=== PATIENT | female | born 1990 | race Caucasian/White ===

== ENCOUNTER 2022-09-17 10:26 | Outpatient (OUT) | payer OTHER, SELFPAY ==
--- NOTE | 2022-09-17 10:30 | US_ITS ---
[address] [address] Patient Name: ARBAHAN WOODS MRN: [id number] date: 1990 Sex: F Assigned Patient Location: Current Patient Location: US Accession/Order Number: [id number] Exam Date: 09/17/2022 10:30 Report Date: 09/17/2022 13:13 At the request of: LUKE VICENTE Procedure: US pelvis transvaginal EXAMINATION: US pelvis transvaginal HISTORY: Right ovarian cyst N83.201 follow-up, chronic pelvic pain COMPARISON: Ultrasound pelvis 08/05/2022 TECHNIQUE: Transabdominal and/or transvaginal sonographic examination was performed as indicated by examination type. FINDINGS: UTERUS: Complex 8 mm nabothian cysts within cervix. Normal appearance of uterine body and fundus. Uterus size: 7.4 x 4.5 x 3.8 cm ENDOMETRIUM: Normal homogeneous appearance. Endometrial thickness: 5 mm RIGHT OVARY: Contains a 1.9 x 1.6 x 1.2 cm partially exophytic complex cyst. Duplex Doppler demonstrates normal waveform and flow; resistive index 0.4. Ovary size: 2.8 x 1.7 x 1.3 cm LEFT OVARY: Normal size and appearance. Duplex Doppler demonstrates normal waveform and flow; resistive index 0.5. Ovary size: 2.1 x 2.4 x 2.0 cm CUL-DE-SAC: Unremarkable. No significant free fluid. BLADDER: Unremarkable. OTHER: None. IMPRESSION: 1. Stable to slight increase in size of the complex right ovarian cyst. Consider follow-up evaluation in another 6 weeks to document regression. Electronically authenticated by: KIRK SHANNON Date: 09/17/2022 13:13
== END 2022-09-17 10:27 ==
LOC: US 10:26
PROVIDERS: PCP Obstetrics & Gynecology; Visit Provider Obstetrics & Gynecology
DX: N83.201 Unspecified ovarian cyst, right side (principal)
CPT/HCPCS: 76830

== ENCOUNTER 2022-09-28 16:30 | Outpatient (REF) | payer OTHER, SELFPAY | END 2022-09-28 16:31 | disposition home or self-care (01) | LOC: LAB 16:30 | PROVIDERS: PCP Obstetrics & Gynecology; Visit Provider Obstetrics & Gynecology | DX: N92.0 Excessive and frequent menstruation with regular cycle (principal) | CPT/HCPCS: 88305 ==

== ENCOUNTER 2022-10-15 08:54 | Outpatient (OUT) | payer OTHER, SELFPAY ==
--- NOTE | 2022-10-15 09:13 | ECG_ITS ---
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
--- NOTE | 2022-10-15 09:40 | XR_ITS ---
[address] [address] Patient Name: ABRAHAN WOODS MRN: [id number] date: 1990 Sex: F Assigned Patient Location: [facility] Current Patient Location: [facility] Accession/Order Number: [id number] Exam Date: 10/15/2022 09:55 Report Date: 10/15/2022 10:26 At the request of: LUKE VICENTE Procedure: XR chest 2V EXAMINATION: XR chest 2V HISTORY: E CIG USE COMPARISON: No relevant comparison available. FINDINGS: LUNGS: No significant pulmonary parenchymal abnormalities. VASCULATURE: No increased pulmonary vasculature. PLEURA: No pneumothorax, effusion, or pleural thickening. CARDIAC: No cardiomegaly or cardiac silhouette abnormality. MEDIASTINUM: No visible mass or adenopathy. BONES: No fracture or visible bone lesion. OTHER: Negative. IMPRESSION: 1. Normal examination. Electronically authenticated by: KIRK SHANNON Date: 10/15/2022 10:26
--- NOTE | 2022-10-15 09:50 | PM.PRESUREVA ---
History of Present Illness History of Present Illness Chief complaint: menorrhagia, pelvic pain Narrative: Patient presents for preadmission testing. The patient reports a long history of heavy painful periods and pelvic pain. She states she had a biopsy done in the office a few weeks ago and since that time has had an increase in her lower pelvic pain. She denies nausea, vomiting, fever, or any other complaints. Review of Systems ROS Narrative REVIEW OF SYSTEMS: Negative except as stated in HPI, ten or more systems reviewed. Constitutional: No fever , chills, weakness ENT: No sore throat or epistaxis Cardiovascular: No edema, chest pain, palpitations, or activity intolerance Respiratory: No shortness of breath, cough, or wheezing Musculoskeletal: No joint pain or swelling Genitourinary: No dysuria or hematuria Neurological: No numbness, tingling, weakness, or headache Psychiatric: No mood changes [facility] Medical History (Updated 10/15/22 @ 09:30 by Traci Cadet NP) Surgical History (Updated 10/15/22 @ 09:30 by Traci Cadet NP) (04/07/22) Family History (Updated 10/15/22 @ 09:30 by Traci Cadet NP) Other Family history of COPD (chronic obstructive pulmonary disease) Family history of breast cancer Family history of cervical cancer Family history of coronary artery disease Family history of diabetes mellitus Family history of emphysema Family history of heart disease Family history of lung cancer Family history of myocardial infarction Family history of prostate cancer Family history of renal failure Family history of stroke Social History (Updated 10/15/22 @ 09:22 by Traci Cadet NP) Within the past year, how often did you have a drink containing alcohol: monthly or less Smoking status: Current every day smoker What tobacco products do you use: cigarettes Pack-years instructions: Please document either packs per day or cigarettes per day in order for pack years to calculate correctly. If using both packs per day and cigarettes per day, please make sure that they denote the same thing. If they differ, pack-years will calculate based on packs per day. Packs Per Day Cigarettes Per Day 1/4 of a pack 5 1/2 a pack 10 3/4 of a pack 15 1 pack 20 1.5 pack 30 2 packs 40 2.5 packs 50 3 packs 60 Packs per day: 3 Years smoked: 7 Smoking pack-years: 21.00 Non-prescribed substance use: denies use Highest level of school completed/degree received: high school graduate Meds Home Medications and Allergies Home Medications Medication Instructions Recorded Confirmed Type albuterol sulfate 90 mcg/actuation 2 inh inhalation Q6H 10/15/22 10/15/22 History aerosol inhaler amitriptyline 50 mg tablet 50 mg PO QDAY 10/15/22 10/15/22 History buspirone 15 mg tablet 15 mg PO QDAY 10/15/22 10/15/22 History gyqxmtwzke-lvdpklnvlrqsq-exlolmhq 1 tab PO Q6H PRN pain 10/15/22 10/15/22 History 50 mg-325 mg-40 mg tablet cariprazine 3 mg capsule (Vraylar) 6 mg PO Q24H 10/15/22 10/15/22 History cholecalciferol (vitamin D3) 25 1,000 unit PO QDAY 10/15/22 10/15/22 History mcg (1,000 unit) tablet dicyclomine 10 mg capsule 10 mg PO BID 10/15/22 10/15/22 History fluticasone propionate 50 2 spray intranasal Q12H 10/15/22 10/15/22 History mcg/actuation nasal spray,suspension lactobacillus combination no.4 3 3,000 mmu cells PO DAILY 10/15/22 10/15/22 History billion cell capsule (Probiotic) loratadine 10 mg tablet 10 mg PO Q24H 10/15/22 10/15/22 History omeprazole 40 mg capsule,delayed 40 mg PO BID 10/15/22 10/15/22 History release oxcarbazepine 300 mg tablet 300 mg PO BID 10/15/22 10/15/22 History prazosin 1 mg capsule 1 mg PO Q12H 10/15/22 10/15/22 History Allergies Allergy/AdvReac Type Severity Reaction Status Date / Time adhesive tape Allergy Rash Verified 10/15/22 09:08 bales Allergy throat Verified 10/15/22 09:13 swelling latex Allergy Rash Verified 10/15/22 09:07 Exam Narrative Exam Narrative: Constitutional: Awake, alert, comfortable, well-appearing, poorly-groomed, nontoxic, interactive, vital signs as charted Head: Normocephalic, atraumatic Neck: Supple, normal appearance, normal range of motion, no meningeal signs, no lymphadenopathy Respiratory: No respiratory distress, breath sounds clear Cardiovascular: Regular rate and rhythm, strong and regular heart tones Abdomen: Nontender, normal bowel sounds, soft, no CVA tenderness Musculoskeletal: Normal gait, no swelling or edema Skin: No rashes or induration, no lesions, only visible skin inspected Neuro: No neurological deficits, normal sensation Psychiatric: Oriented ?3, normal affect Assessment and Plan Assessment and Plan (1) Dysmenorrhea: (2) Dyspareunia: (3) Menorrhagia: (4) Pelvic pain: Plan VNOTES Hysterectomy, possible bilateral salpingo-oophorectomy, possible cystoscopy, possible exploratory laparotomy scheduled with Dr. Gallego 10/29/2022.
[2022-10-15 10:11] LABS: Basophils Absolute Auto 0.1 10^3/uL (0.0-0.1); Basophils Percent Auto 0.9 % (0.2-2.0); Eosinophils Absolute Auto 0.2 10^3/uL (0.0-0.7); Eosinophils Percent Auto 3.6 % (0.9-7.0); Hematocrit 44.4 % (36.0-48.0); Hemoglobin 14.3 g/dL (12.0-16.0); Immature Granulocytes Abs Auto 0.02 10^3/uL (0.00-0.03); Immature Granulocytes Pct Auto 0.3 % (0.0-0.5); Lymphocytes Absolute Auto 1.6 10^3/uL (1.2-3.8); Lymphocytes Percent Auto 24.4 % (20.5-60.0); Mean Corpuscular HGB Conc 32.2 g/dL (29.9-35.2); Mean Corpuscular Hemoglobin 29.5 pg (26.7-34.0); Mean Corpuscular Volume 91.7 fL (81.0-99.0); Mean Platelet Volume 9.6 fL (9.5-13.5); Monocytes Absolute Auto 0.5 10^3/uL (0.3-0.8); Monocytes Percent Auto 8.2 % (1.7-12.0); Neutrophils Percent Auto 62.6 % (43.0-75.0); Platelet Count 282 10^3/uL (150-450); Red Blood Count 4.84 10^6/uL (4.20-5.40); Red Cell Distribution Width 14.3 % (11.0-15.0); White Blood Count 6.4 10^3/uL (4.0-11.0)
[2022-10-15 10:27] LABS: Alanine Aminotransferase 24 U/L (14-59); Albumin Globulin Ratio 1.1; Albumin Level 3.9 g/dL (3.4-5.0); Alkaline Phosphatase 66 U/L (46-116); Anion Gap 10.5; Aspartate Amino Transferase 7 U/L (15-37); BUN Creatinine Ratio 9.1; Bilirubin Direct 0.1 mg/dL (0.0-0.2); Bilirubin Total 0.3 mg/dL (0.2-1.0); Calcium 8.9 mg/dL (8.5-10.1); Carbon Dioxide 29.6 mmol/L (21.0-32.0); Chloride 104 mmol/L (98-107); Estimated GFR (African America >60 (>=60); Estimated GFR (Non-African Ame >60 (>=60); Globulin 3.4 g/dL; Glucose 101 mg/dL (74-106); Potassium 4.1 mmol/L (3.5-5.1); Sodium 140 mmol/L (136-145); Total Protein 7.3 g/dL (6.4-8.2)
[2022-10-15 10:38] LABS: INR 0.97; Partial Thromboplastin Time 27.9 sec (22.3-36.2); Prothrombin Time 10.3 sec (9.0-11.6)
== END 2022-10-15 08:55 | disposition home or self-care (01) ==
LOC: PST 08:55
PROVIDERS: PCP Obstetrics & Gynecology; Visit Provider Obstetrics & Gynecology
DX: Z01.810 Encounter for preprocedural cardiovascular examination (principal); Z01.812 Encounter for preprocedural laboratory examination; Z01.818 Encounter for other preprocedural examination; N92.1 Excessive and frequent menstruation with irregular cycle; N94.6 Dysmenorrhea, unspecified; N94.10 Unspecified dyspareunia; R10.2 Pelvic and perineal pain; I45.19 Other right bundle-branch block
CPT/HCPCS: 36415; 71046; 80048; 80076; 85025; 85610; 85730; 86850; 86900; 86901; 93005; G0463

== ENCOUNTER 2022-10-29 10:43 | Day surgery (SDC) | payer OTHER, SELFPAY ==
[2022-10-15 09:23] VITALS: BP 113/76; PULSE 72; RESP 18; TEMP 36.6; O2SAT 98; BMI 32.4
[2022-10-29] VITALS (18 sets, daily range): BP systolic 122–147; BP diastolic 59–106; PULSE 50–93; RESP 16–24; TEMP 36.3–36.6; O2SAT 94–100; BMI 32.2
[2022-10-29 10:58] LABS: Basophils Absolute Auto 0.1 10^3/uL (0.0-0.1); Basophils Percent Auto 0.8 % (0.2-2.0); Eosinophils Absolute Auto 0.3 10^3/uL (0.0-0.7); Eosinophils Percent Auto 2.6 % (0.9-7.0); Hematocrit 49.5 % (36.0-48.0); Hemoglobin 16.3 g/dL (12.0-16.0); Immature Granulocytes Abs Auto 0.02 10^3/uL (0.00-0.03); Immature Granulocytes Pct Auto 0.2 % (0.0-0.5); Lymphocytes Absolute Auto 2.3 10^3/uL (1.2-3.8); Lymphocytes Percent Auto 22.2 % (20.5-60.0); Mean Corpuscular HGB Conc 32.9 g/dL (29.9-35.2); Mean Corpuscular Hemoglobin 30.1 pg (26.7-34.0); Mean Corpuscular Volume 91.3 fL (81.0-99.0); Mean Platelet Volume 9.7 fL (9.5-13.5); Monocytes Absolute Auto 0.7 10^3/uL (0.3-0.8); Monocytes Percent Auto 7.3 % (1.7-12.0); Neutrophils Absolute Auto 6.8 10^3/uL (1.4-6.5); Neutrophils Percent Auto 66.9 % (43.0-75.0); Platelet Count 281 10^3/uL (150-450); Red Blood Count 5.42 10^6/uL (4.20-5.40); Red Cell Distribution Width 14.2 % (11.0-15.0); White Blood Count 10.2 10^3/uL (4.0-11.0)
[2022-10-29 11:22] LABS: HCG Quantitative <1 mIU/mL
[2022-10-29] MEDS: LACTATED RINGER'S SOLUTION 1,000 ML 50 ML IV ×2 (11:26→13:43)
[2022-10-29] MEDS: SCOPOLAMINE 1 EACH PATCH.TD.3 1 PATCH TD (11:35)
[2022-10-29] MEDS: CEFAZOLIN SODIUM/DEXTROSE,ISO 2 GM/50 ML PIGGYBACK IV (12:59)
[2022-10-29] MEDS: 0.9 % SODIUM CHLORIDE 10 ML 30 ML INJ (13:35)
[2022-10-29] MEDS: LIDOCAINE HCL 1%-EPINEPHRINE 1:100,000 20 ML MDV INJ (13:35)
--- NOTE | 2022-10-29 15:09 | P.ON_ITS ---
Brief Operative Note Date of procedure: 10/29/22 Pre-op diagnosis: pelvic pain, menorrhagia, dysmenorrhea, dyspareunia Post-op diagnosis: same Procedure: PROCEDURE:? vNOTES hysterectomy bilateral salpingectomy with cystoscopy. PROCEDURE:? Patient was brought back to the operating room where she was given general anesthesia.? She was placed in the dorsolithotomy position, after being prepped and draped in a sterile fashion.? A Yeh catheter was placed.? A weighted speculum was placed posterior in the vagina.? The cervix was grasped anteriorly and posteriorly with two single tooth tenaculums and placed on traction.? A solution of Marcaine, lidocaine and epinephrine and saline was liberally infiltrated into the cervical vaginal junction.? The knife was then used to circumscribe the cervical vaginal junction and the posterior cul-de-sac was sharply entered without difficulty.? A long weighted duck tail speculum was placed and the peritoneum was tacked to the vaginal epithelium.? We then turned our attention to the uterosacral ligaments which were bilaterally cross clamped, transected and suture ligated and then were held with hemostats.? Attention was then turned to the anterior compartment, where the cervical vaginal junction was similarly divided, and the bladder was then sharply and bluntly dissected off the cervix and the lower uterine segment, and the anterior cul-de-sac was sharply entered.? The vaginal epithelium was tacked to the peritoneum.? Lateral attachments of the uterus were secured with Dawit clamps and suture ligated.? The retractors were then removed and were placed by the path inner ring anteriorly followed by posteriorly.? Once the ring was seated, the gel cap was placed and the laparoscopic ports were placed through this cap and the gas was allowed to insufflate the pelvis.? A GynLap was placed posteriorly to facilitate mobilization of the bowel, control bleeding.? This was later retrieved.? The LigaSure device was used to secure the lateral attachments of the uterus on the left side, including the cardinal ligaments and the uterine vasculature.? Once the utero-ovarian ligament was reached, we turned our attention to the right side where the LigaSure device was used to fully detach the uterus from the pelvic side wall.? Please note the ligasure was used to perform bilateral salpingectomy, excellent hemostasis was noted. The ureters were seen visually; before, during and after the pedicles were created.? The ureters were bilaterally in normal locations, peristalsing.? Please note that the right and left ovary were already removed and were not visualized.?? Please note that the LigaSure was used on the patient?s left side to fully detach the uterus from the pelvic side wall.? The uterus was removed from the field.? The GynLap was also removed from the field.? The inner ring and gel port caps were removed and the vaginal retractors were replaced.? Lateral figure of eight sutures were placed bilaterally, where bleeding occurred, behind the ring, and no further sutures were needed.? The colpopexy was then carried out, passing a stitch posteriorly to the vaginal wall, capturing the left uterosacral ligament, going across the peritoneum posteriorly to the right and exiting out the vaginal wall posteriorly.? The vaginal cuff was closed in a single running locked stitch using 0 Monocryl, and the uterosacral ligaments were cut.? Once the vaginal cuff was fully closed, the uterosacral colpopexy stitch was then tied down tightly, elevating the vaginal cuff to the uterosacral ligaments in a satisfactory manner.? The Yeh catheter was removed and the patient was awakened and taken to recovery in excellent condition.? Sponge, lap and instruments counts correct x2.? Anesthesia: SAY Surgeon: Valentin Gallego Financial Planning Adviser: Edwige Renee Estimated blood loss (mL): 300 Pathology: other (uterus, cervix and tubes) Condition: stable Disposition: PACU
[2022-10-29] MEDS: HYDROMORPHONE HCL 0.5 MG/0.5 ML SYRINGE IV (15:14)
--- NOTE | 2022-10-29 15:19 | PC.NURSE ---
PATIENT HAS ARMEN PAD WITH CSANT AMOUNT OF DRAINAGE UPON ARRIVAL TO PACU.
--- NOTE | 2022-10-29 15:21 | PC.NURSE ---
IV PAIN MEDICATION GIVEN AT THIS TIME 0.50 ML OF DILAUDID
--- NOTE | 2022-10-29 15:24 | PC.NURSE ---
PER JULES SUGGESTION , GAVE ORAL PERCOCET FOR PAIN AAT THIS TIME.
[2022-10-29] MEDS: LACTATED RINGER'S SOLUTION 1,000 ML 125 ML IV (15:26)
[2022-10-29] MEDS: SIMETHICONE 80 MG TAB.CHEW PO (17:34)
[2022-10-29] MEDS: KETOROLAC TROMETHAMINE 30 MG/ML VIAL IVP (19:31)
[2022-10-29] MEDS: DOCUSATE SODIUM 100 MG CAPSULE PO (19:34)
--- NOTE | 2022-10-29 19:38 | PC.NURSE ---
Sent page to Dr. Gallego at [phone]. He called at [phone]. I informed him that the patient was still having 8/[address] Gallego gave orders to keep the patient until 0800 on 10/30/2022. I went to tell the patient and she was very upset. She did not want to stay and wants to go home tonight. Dr. Gallego was informed and he came up to drop prescriptions off for the patient.
--- NOTE | 2022-10-29 22:15 | PC.NURSE ---
AMA Lab was in at approximately 2105. Made two attempts to draw blood per physician order. Patient began screaming and yelling out. Talent Manager entered room to hear patient yelling I'm not a F.....G pin cushion. I'm done I want to go home to my nurse.MOM! I explained to patient that Melody was trying to help her and she was also being nice to her. Patient started yelling out, I'm done I want to leave, they've stuck me 4 times today, mom said stick me twice and that's it! Talent Manager went to obtain a vein light to explain maybe that would help. Patient continued to refuse. When Nurse Brittany came into witness her signing the AMA. She also discussed with her the importance of the labwork and that if she left against medical advice her insurance could refuse to pay. Patient stated, The doctor told me I wasn't going to be here this long anyways. We explained that it was due to her increased pain 10/10 that we wanted to monitor her and that was also a reason she needed to stay and let us attempt the bloodwork again. Doctor Lashonda notified of AMA status. Patient left with at approximately 2134. Bhavna Vásquez RN
== END 2022-10-29 21:35 | disposition left against medical advice (07) ==
LOC: SURGOUT 15:06 → MS 15:48
PROVIDERS: PCP Obstetrics & Gynecology; Visit Provider Obstetrics & Gynecology
PROC: (CPT 944; principal; 2022-10-29 13:20)
DX: N92.1 Excessive and frequent menstruation with irregular cycle (principal); N94.6 Dysmenorrhea, unspecified; N94.10 Unspecified dyspareunia; R10.2 Pelvic and perineal pain; Z53.29 Procedure and treatment not carried out because of patient's decision for other reasons; Z90.722 Acquired absence of ovaries, bilateral
CPT/HCPCS: 58552; 36415; 84702; 85025; 88307; 94761; J1170; J2704

== ENCOUNTER 2022-11-20 13:02 | Emergency (ER) | payer OTHER, SELFPAY ==
[2022-11-20 13:13] VITALS: BP 127/81; PULSE 85; RESP 18; TEMP 37.1; O2SAT 100; BMI 28.7
--- NOTE | 2022-11-20 13:23 | CT_ITS ---
The [address] [address] Patient Name: ABRAHAN WOODS MRN: [id number] date: 1990 Sex: F Assigned Patient Location: ER Current Patient Location: ER Accession/Order Number: [id number] Exam Date: 11/20/2022 14:18 Report Date: 11/20/2022 14:44 At the request of: DENISE SHAFFER Procedure: CT abdomen pelvis wo con EXAM: CT abdomen pelvis wo con HISTORY: Without COMPARISON: 07/03/2022 TECHNIQUE: Axial CT images were obtained of the abdomen and pelvis without intravenous contrast. Multiplanar reconstructions were performed. ABDOMEN/PELVIS FINDINGS: Lower Chest: Unremarkable. Liver: Normal nonenhanced appearance and contour. Biliary/Gallbladder: Prior cholecystectomy. Pancreas: Unremarkable. Spleen: Unremarkable. Adrenal Glands: Unremarkable. Kidneys: Unremarkable. Gastrointestinal/Peritoneum: No acute abnormality. The appendix is unremarkable. No free air or free fluid. Vascular: Unremarkable. Lymph Nodes: No enlarged lymph nodes by CT size criteria. Pelvic Organs: Prior hysterectomy. There is mild hazy fat stranding present in the post hysterectomy bed. No fluid collection. Bladder: Unremarkable. Bones: No acute osseous abnormality. Soft tissues: Small fat-containing umbilical hernia present. CT/CT abdomen pelvis wo con IMPRESSION: 1. Mild hazy fat stranding present in the post hysterectomy bed, likely due to edema from recent postoperative changes. An infectious etiology should also be considered. There is no fluid collection. 2. Prior cholecystectomy. 3. Small fat-containing umbilical hernia. Electronically authenticated by: CHRISTINE QUIROZ Date: 11/20/2022 14:44
--- NOTE | 2022-11-20 13:25 | ED.GENADUL1 ---
Documented by User: GUILLAUME Mcgee 11/20/22 15:41 HPI - General Adult General Chief complaint: Abdominal Pain Stated complaint: ABDOMINAL PAIN Time Seen by Provider: 11/20/22 13:08 Source: patient Mode of arrival: walk-in Limitations: no limitations History of Present Illness HPI narrative: patient is a 32-year-old female presents to the Emergency Room with concerns of worsening lower abdominal pain. Prior history of cholecystectomy last March. Patient states she had a recent vaginal hysterectomy performed on 10/29/22 w/ Dr. Gallego. Patient states she felt inflamed on there. With some drainage and was recently treated with yeast medication but states her pelvic pain has worsened. She has had diarrhea for the past two days and her last normal bowel movement was two days ago. Patient feels bloated full sensation with right lower quadrant abdominal pain. occ sharp. Mild nausea but no vomiting. Significant other present at bedside. Patient reports three prior pregnancies.patient reports discharge from vagina is currently a sandwich brown material, but not enough to wear pads with regularity. Related Data Home Medications Medication Instructions Recorded Confirmed albuterol sulfate 90 mcg/actuation 2 inh inhalation Q6H 10/15/22 10/29/22 aerosol inhaler amitriptyline 50 mg tablet 50 mg PO QDAY 10/15/22 10/29/22 buspirone 15 mg tablet 15 mg PO QDAY 10/15/22 10/29/22 oczggafwjn-ljmttslogaybw-lhpbmzez 1 tab PO Q6H PRN pain 10/15/22 10/29/22 50 mg-325 mg-40 mg tablet cariprazine 3 mg capsule (Vraylar) 6 mg PO Q24H 10/15/22 10/29/22 cholecalciferol (vitamin D3) 25 1,000 unit PO QDAY 10/15/22 10/29/22 mcg (1,000 unit) tablet dicyclomine 10 mg capsule 10 mg PO BID 10/15/22 10/29/22 fluticasone propionate 50 2 spray intranasal Q12H 10/15/22 10/29/22 mcg/actuation nasal spray,suspension lactobacillus combination no.4 3 3,000 mmu cells PO DAILY 10/15/22 10/15/22 billion cell capsule (Probiotic) loratadine 10 mg tablet 10 mg PO Q24H 10/15/22 10/29/22 omeprazole 40 mg capsule,delayed 40 mg PO BID 10/15/22 10/29/22 release oxcarbazepine 300 mg tablet 300 mg PO BID 10/15/22 10/29/22 prazosin 1 mg capsule 1 mg PO Q12H 10/15/22 10/15/22 Previous Rx's Medication Instructions Recorded ibuprofen 800 mg tablet 800 mg PO Q8H PRN pain 14 days #40 10/29/22 tabs oxycodone-acetaminophen 5 mg-325 1 tab PO Q6H PRN pain 7 days #28 10/29/22 mg tablet (Percocet) tabs Allergies Allergy/AdvReac Type Severity Reaction Status Date / Time adhesive tape Allergy Rash Verified 11/20/22 13:18 bales Allergy throat Verified 11/20/22 13:18 swelling latex Allergy Rash Verified 11/20/22 13:18 Review of Systems ROS Constitutional Denies: fever, chills or change in weight Eyes Denies: change in vision or blurry vision Ears, nose, mouth, and throat Denies: throat pain or neck pain Cardiovascular Denies: chest pain or palpitations Respiratory Denies: shortness of breath Gastrointestinal Reports: abdominal pain, nausea and diarrhea; Denies: vomiting Genitourinary Reports: pelvic pain; Denies: painful urination Musculoskeletal Denies: back pain or neck pain Integumentary/Breast Denies: rash Neurological Denies: headache or numbness in extremities Psychiatric Denies: anxiety Endocrine Denies: excessive urination Hematologic/Lymphatic Denies: easy bruising PFSH PFSH Medical History (Updated 11/20/22 @ 15:40 by GUILLAUME Mcgee) Surgical History (Updated 10/15/22 @ 09:30 by Traci Cadet NP) (04/07/22) Family History (Updated 10/15/22 @ 09:30 by Traci Cadet NP) Other Family history of COPD (chronic obstructive pulmonary disease) Family history of breast cancer Family history of cervical cancer Family history of coronary artery disease Family history of diabetes mellitus Family history of emphysema Family history of heart disease Family history of lung cancer Family history of myocardial infarction Family history of prostate cancer Family history of renal failure Family history of stroke Social History (Updated 10/15/22 @ 09:22 by Traci Cadet NP) Within the past year, how often did you have a drink containing alcohol: monthly or less Smoking status: Current every day smoker What tobacco products do you use: cigarettes Pack-years instructions: Please document either packs per day or cigarettes per day in order for pack years to calculate correctly. If using both packs per day and cigarettes per day, please make sure that they denote the same thing. If they differ, pack-years will calculate based on packs per day. Packs Per Day Cigarettes Per Day 1/4 of a pack 5 1/2 a pack 10 3/4 of a pack 15 1 pack 20 1.5 pack 30 2 packs 40 2.5 packs 50 3 packs 60 Packs per day: 3 Years smoked: 7 Smoking pack-years: 21.00 Non-prescribed substance use: denies use Highest level of school completed/degree received: high school graduate Exam Narrative Exam Narrative: Nurses notes and vital signs reviewed and patient is not hypoxic. General: The patient appears uncomfortable holding her lower abdomen. Able to speak in full sentences Skin: Warm, dry, no pallor noted. Head: Normocephalic, atraumatic Neck: Supple, trachea mid-line, no tenderness, no lymphadenopathy Eye: Pupils are equal, round and reactive to light, EOMI Ears, Nose, Mouth, and Throat: external exam unremarkable Cardiovascular: Regular Rate and Rhythm Respiratory: Patient is in no distress, no accessory muscle use, lungs are clear to auscultation, no wheezing, rales or rhonchi. Chest Wall: no tenderness Back: non-tender, no CVA tenderness Musculoskeletal: normal ROM, no tenderness, no swelling GI: Normal bowel sounds, tenderness and guarding to the right lower quadrant, point tender McBurney's point. Mild suprapubic soreness with deep palpation. Neurological: A&O x4 Psychiatric: Cooperative Constitutional Vital Signs, click to edit/add: Last Vital Signs Temp 98.7 F 11/20/22 13:13 Pulse 85 11/20/22 13:13 Resp 18 11/20/22 13:13 BP 127/81 11/20/22 13:13 Pulse Ox 100 11/20/22 13:13 O2 Del Method Room Air 11/20/22 13:13 Course Vital Signs Vital signs: Vital Signs Temperature 98.7 F 11/20/22 13:13 Pulse Rate 85 11/20/22 13:13 Respiratory Rate 18 11/20/22 13:13 Blood Pressure 127/81 11/20/22 13:13 Pulse Oximetry 100 11/20/22 13:13 Oxygen Delivery Method Room Air 11/20/22 13:13 Temperature 98.7 F 11/20/22 13:13 Pulse Rate 85 11/20/22 13:13 Respiratory Rate 18 11/20/22 13:13 Blood Pressure 127/81 11/20/22 13:13 Pulse Oximetry 100 11/20/22 13:13 Oxygen Delivery Method Room Air 11/20/22 13:13 Medical Decision Making MDM Narrative Medical decision making narrative: discussed patient's presentation, postoperative pain lower pelvic and right lower quadrant of abdomen, patient still has her appendix recommend CT of the abdomen and pelvis with IV contrast for further evaluation. We discussed her recent hysterectomy and drainage with recent treatment for yeast infection. Patient denies any current external rash and describes a Sandish colored drainage.vital signs are stable, patient agreeable to IV pain medication pending CT evaluation initial labs appear unremarkable, patient had a member of technical staff at bedside waiting for scan, noted to have increased pain, patient tearful and crying, additional 4 mg IV morphine ordered. Patient stated she has had shortness of breath before with contrast studies, we reviewed history in the x-ray report showing no evidence of adverse reaction to the prior scans per x-ray tech documentation., patient reports having chest pain after the injection of contrast and subsequently will not receive IV contrast today despite two past studies. reviewed CT study, discussed patient's case and presentation with Dr. Bowling who is covering for Dr. Gallego. I attempted to call Dr. Gallego but he was reported to be out of town. Dr. Bowling was on-call and made aware of patient's surgery, presentation, labs and CT finding. She recommends the patient continue with rest and mild pain medication pending follow-up with Dr. Gallgeo for recheck. I communicated this to the patient at bedside and she felt relieved, she admits that the pain is somewhat colicky and is currently taking Motrin eight hundred. We discussed additional pain medications and requests a hold on adding anything new to the treatment as she has Zofran and Motrin 800s at home. Patient verbalized that she will return to the Emergency Room if her symptoms worsen or new symptoms develop through the weekend. The patient is to followup with Dr. Gallego's clinic on Wednesday or to return to the emergency department should any of the signs or symptoms worsen or new symptoms develop. Patient had questions answered. The patient agrees with the following Diagnosis and Treatment plan and the patient will be discharged home. Lab Data Labs: Lab Results 11/20/22 Range/Units 13:24 WBC 8.5 (4.0-11.0) 10^3/uL RBC 4.42 (4.20-5.40) 10^6/uL Hgb 13.3 (12.0-16.0) g/dL Hct 40.9 (36.0-48.0) % MCV 92.5 (81.0-99.0) fL MCH 30.1 (26.7-34.0) pg MCHC 32.5 (29.9-35.2) g/dL RDW 14.2 (11.0-15.0) % Plt Count 350 (150-450) 10^3/uL MPV 9.6 (9.5-13.5) fL Neut % (Auto) 63.7 (43.0-75.0) % Lymph % (Auto) 24.6 (20.5-60.0) % [place] % (Auto) 7.8 (1.7-12.0) % Eos % (Auto) 3.0 (0.9-7.0) % Baso % (Auto) 0.8 (0.2-2.0) % Neut # (Auto) 5.4 (1.4-6.5) 10^3/uL Lymph # (Auto) 2.1 (1.2-3.8) 10^3/uL [place] # (Auto) 0.7 (0.3-0.8) 10^3/uL Eos # (Auto) 0.3 (0.0-0.7) 10^3/uL Baso # (Auto) 0.1 (0.0-0.1) 10^3/uL Abs Immat Gran (auto) 0.01 (0.00-0.03) 10^3/uL Imm/Tot Granulo (auto) 0.1 (0.0-0.5) % Sodium 137 (136-145) mmol/L Potassium 3.6 (3.5-5.1) mmol/L Chloride 102 (98-107) mmol/L Carbon Dioxide 25.7 (21.0-32.0) mmol/L Anion Gap 12.9 BUN 6.0 L (7.0-18.0) mg/dL Creatinine 0.71 (0.55-1.02) mg/dL Est GFR ( Amer) >60 (>=60) Est GFR (Non-Af Amer) >60 (>=60) BUN/Creatinine Ratio 8.5 Glucose 109 H (74-106) mg/dL Lactate 1.4 (0.4-2.0) mmol/L Calcium 8.4 L (8.5-10.1) mg/dL Total Bilirubin 0.3 (0.2-1.0) mg/dL AST 9 L (15-37) U/L ALT 21 (14-59) U/L Alkaline Phosphatase 63 (46-116) U/L Total Protein 7.5 (6.4-8.2) g/dL Albumin 4.1 (3.4-5.0) g/dL Globulin 3.4 g/dL Albumin/Globulin Ratio 1.2 Lipase 33.0 L (73.0-393.0) U/L Urine Color Yellow (YELLOW) Urine Clarity Clear (CLEAR) Urine pH 6.0 (5.0-9.0) Ur Specific [place] 1.020 (1.005-1.025) Urine Protein Negative (NEG/TRACE) mg/dL Urine Glucose (UA) Negative (NEGATIVE) mg/dL Urine Ketones Negative (NEGATIVE) mg/dL Urine Occult Blood Negative (NEGATIVE) Urine Nitrite Negative (NEGATIVE) Urine Bilirubin Negative (NEGATIVE) Urine Urobilinogen 0.2 (0.2-1.0) EU/dL Ur Leukocyte Esterase Negative (NEGATIVE) Imaging Data CT scan - abdomen: Radiologist's impression: Procedure: CT abdomen pelvis wo con EXAM: CT abdomen pelvis wo con HISTORY: Without COMPARISON: 07/03/2022 TECHNIQUE: Axial CT images were obtained of the abdomen and pelvis without intravenous contrast. Multiplanar reconstructions were performed. ABDOMEN/PELVIS FINDINGS: Lower Chest: Unremarkable. Liver: Normal nonenhanced appearance and contour. Biliary/Gallbladder: Prior cholecystectomy. Pancreas: Unremarkable. Spleen: Unremarkable. Adrenal Glands: Unremarkable. Kidneys: Unremarkable. Gastrointestinal/Peritoneum: No acute abnormality. The appendix is unremarkable. No free air or free fluid. Vascular: Unremarkable. Lymph Nodes: No enlarged lymph nodes by CT size criteria. Pelvic Organs: Prior hysterectomy. There is mild hazy fat stranding present in the post hysterectomy bed. No fluid collection. Bladder: Unremarkable. Bones: No acute osseous abnormality. Soft tissues: Small fat-containing umbilical hernia present. CT/CT abdomen pelvis wo con IMPRESSION: 1. Mild hazy fat stranding present in the post hysterectomy bed, likely due to edema from recent postoperative changes. An infectious etiology should also be considered. There is no fluid collection. 2. Prior cholecystectomy. 3. Small fat-containing umbilical hernia. Electronically authenticated by: CHRISTINE QUIROZ Date: 11/20/2022 14:44 Discharge Plan Discharge Chief Complaint: Abdominal Pain Clinical Impression: Post-operative pain, Intermittent lower abdominal pain Patient Disposition: Home, Self-Care Time of Disposition Decision: 15:40 Condition: Good Mode of Transportation: Private Vehicle Prescriptions / Home Meds: No Action prazosin 1 mg capsule 1 mg PO Q12H Hold Instructions: pt decision oxcarbazepine 300 mg tablet 300 mg PO BID Hold Instructions: pt decision omeprazole 40 mg capsule,delayed release(DR/EC) 40 mg PO BID amitriptyline 50 mg tablet 50 mg PO QDAY albuterol sulfate 90 mcg/actuation HFA aerosol inhaler 2 inh INHALATION Q6H fluticasone propionate 50 mcg/actuation spray,suspension 2 spray INTRANASAL Q12H dicyclomine 10 mg capsule 10 mg PO BID loratadine 10 mg tablet 10 mg PO Q24H buspirone 15 mg tablet 15 mg PO QDAY cholecalciferol (vitamin D3) 25 mcg (1,000 unit) tablet 1,000 unit PO QDAY Probiotic 3 billion cell capsule 3,000 mmu cells PO DAILY Rx Instructions: administer with a meal Vraylar 3 mg capsule 6 mg PO Q24H qxyvthryjx-vpzggczratwpt-otce 50-325-40 mg tablet 1 tab PO Q6H PRN (Reason: pain) ibuprofen 800 mg tablet 800 mg PO Q8H PRN (Reason: pain) 14 Days Qty: 40 0RF oxycodone-acetaminophen [Percocet] 5-325 mg tablet 1 tab PO Q6H PRN (Reason: pain) 7 Days Qty: 28 0RF Instructions: Abdominal Pain (ED) Stand Alone Forms: Portal Instructions Referrals: Valentin Gallego DO [Primary Care Provider] - As soon as possible Discharge Date/Time: 11/20/22 15:40 Documented by User: Tatyana Marina MD 11/20/22 16:39 HPI - General Adult General Chief complaint: Abdominal Pain Stated complaint: ABDOMINAL PAIN Time Seen by Provider: 11/20/22 13:08 Related Data Home Medications Medication Instructions Recorded Confirmed albuterol sulfate 90 mcg/actuation 2 inh inhalation Q6H 10/15/22 10/29/22 aerosol inhaler amitriptyline 50 mg tablet 50 mg PO QDAY 10/15/22 10/29/22 buspirone 15 mg tablet 15 mg PO QDAY 10/15/22 10/29/22 sftweydtgy-mrgaqgwmgximd-yuiadzfj 1 tab PO Q6H PRN pain 10/15/22 10/29/22 50 mg-325 mg-40 mg tablet cariprazine 3 mg capsule (Vraylar) 6 mg PO Q24H 10/15/22 10/29/22 cholecalciferol (vitamin D3) 25 1,000 unit PO QDAY 10/15/22 10/29/22 mcg (1,000 unit) tablet dicyclomine 10 mg capsule 10 mg PO BID 10/15/22 10/29/22 fluticasone propionate 50 2 spray intranasal Q12H 10/15/22 10/29/22 mcg/actuation nasal spray,suspension lactobacillus combination no.4 3 3,000 mmu cells PO DAILY 10/15/22 10/15/22 billion cell capsule (Probiotic) loratadine 10 mg tablet 10 mg PO Q24H 10/15/22 10/29/22 omeprazole 40 mg capsule,delayed 40 mg PO BID 10/15/22 10/29/22 release oxcarbazepine 300 mg tablet 300 mg PO BID 10/15/22 10/29/22 prazosin 1 mg capsule 1 mg PO Q12H 10/15/22 10/15/22 Previous Rx's Medication Instructions Recorded ibuprofen 800 mg tablet 800 mg PO Q8H PRN pain 14 days #40 10/29/22 tabs oxycodone-acetaminophen 5 mg-325 1 tab PO Q6H PRN pain 7 days #28 10/29/22 mg tablet (Percocet) tabs Allergies Allergy/AdvReac Type Severity Reaction Status Date / Time adhesive tape Allergy Rash Verified 11/20/22 13:18 bales Allergy throat Verified 11/20/22 13:18 swelling latex Allergy Rash Verified 11/20/22 13:18 PFSH PFSH Medical History (Updated 11/20/22 @ 15:40 by GUILLAUME Mcgee) Surgical History (Updated 10/15/22 @ 09:30 by Traci Cadet NP) (04/07/22) Family History (Updated 10/15/22 @ 09:30 by Traci Cadet NP) Other Family history of COPD (chronic obstructive pulmonary disease) Family history of breast cancer Family history of cervical cancer Family history of coronary artery disease Family history of diabetes mellitus Family history of emphysema Family history of heart disease Family history of lung cancer Family history of myocardial infarction Family history of prostate cancer Family history of renal failure Family history of stroke Social History (Updated 10/15/22 @ 09:22 by Traci Cadet NP) Within the past year, how often did you have a drink containing alcohol: monthly or less Smoking status: Current every day smoker What tobacco products do you use: cigarettes Pack-years instructions: Please document either packs per day or cigarettes per day in order for pack years to calculate correctly. If using both packs per day and cigarettes per day, please make sure that they denote the same thing. If they differ, pack-years will calculate based on packs per day. Packs Per Day Cigarettes Per Day 1/4 of a pack 5 1/2 a pack 10 3/4 of a pack 15 1 pack 20 1.5 pack 30 2 packs 40 2.5 packs 50 3 packs 60 Packs per day: 3 Years smoked: 7 Smoking pack-years: 21.00 Non-prescribed substance use: denies use Highest level of school completed/degree received: high school graduate Exam Constitutional Vital Signs, click to edit/add: Last Vital Signs Temp 98.7 F 11/20/22 13:13 Pulse 85 11/20/22 13:13 Resp 18 11/20/22 13:13 BP 127/81 11/20/22 13:13 Pulse Ox 100 11/20/22 13:13 O2 Del Method Room Air 11/20/22 13:13 Course Vital Signs Vital signs: Vital Signs Temperature 98.7 F 11/20/22 13:13 Pulse Rate 85 11/20/22 13:13 Respiratory Rate 18 11/20/22 13:13 Blood Pressure 127/81 11/20/22 13:13 Pulse Oximetry 100 11/20/22 13:13 Oxygen Delivery Method Room Air 11/20/22 13:13 Temperature 98.7 F 11/20/22 13:13 Pulse Rate 85 11/20/22 13:13 Respiratory Rate 18 11/20/22 13:13 Blood Pressure 127/81 11/20/22 13:13 Pulse Oximetry 100 11/20/22 13:13 Oxygen Delivery Method Room Air 11/20/22 13:13 Medical Decision Making MDM Narrative Medical decision making narrative: discussed patient's presentation, postoperative pain lower pelvic and right lower quadrant of abdomen, patient still has her appendix recommend CT of the abdomen and pelvis with IV contrast for further evaluation. We discussed her recent hysterectomy and drainage with recent treatment for yeast infection. Patient denies any current external rash and describes a Sandish colored drainage.vital signs are stable, patient agreeable to IV pain medication pending CT evaluation initial labs appear unremarkable, patient had a member of technical staff at bedside waiting for scan, noted to have increased pain, patient tearful and crying, additional 4 mg IV morphine ordered. Patient stated she has had shortness of breath before with contrast studies, we reviewed history in the x-ray report showing no evidence of adverse reaction to the prior scans per x-ray tech documentation., patient reports having chest pain after the injection of contrast and subsequently will not receive IV contrast today despite two past studies. reviewed CT study, discussed patient's case and presentation with Dr. Bowling who is covering for Dr. Gallego. I attempted to call Dr. Gallego but he was reported to be out of town. Dr. Bowling was on-call and made aware of patient's surgery, presentation, labs and CT finding. She recommends the patient continue with rest and mild pain medication pending follow-up with Dr. Gallego for recheck. I communicated this to the patient at bedside and she felt relieved, she admits that the pain is somewhat colicky and is currently taking Motrin eight hundred. We discussed additional pain medications and requests a hold on adding anything new to the treatment as she has Zofran and Motrin 800s at home. Patient verbalized that she will return to the Emergency Room if her symptoms worsen or new symptoms develop through the weekend. The patient is to followup with Dr. Gallego's clinic on Wednesday or to return to the emergency department should any of the signs or symptoms worsen or new symptoms develop. Patient had questions answered. The patient agrees with the following Diagnosis and Treatment plan and the patient will be discharged home. Attending physician attestation I have reviewed the mid-level documentation, agree with the documentation, medical decision making and treatment plan as outlined by the mid-level provider. Lab Data Labs: Lab Results 11/20/22 Range/Units 13:24 WBC 8.5 (4.0-11.0) 10^3/uL RBC 4.42 (4.20-5.40) 10^6/uL Hgb 13.3 (12.0-16.0) g/dL Hct 40.9 (36.0-48.0) % MCV 92.5 (81.0-99.0) fL MCH 30.1 (26.7-34.0) pg MCHC 32.5 (29.9-35.2) g/dL RDW 14.2 (11.0-15.0) % Plt Count 350 (150-450) 10^3/uL MPV 9.6 (9.5-13.5) fL Neut % (Auto) 63.7 (43.0-75.0) % Lymph % (Auto) 24.6 (20.5-60.0) % [place] % (Auto) 7.8 (1.7-12.0) % Eos % (Auto) 3.0 (0.9-7.0) % Baso % (Auto) 0.8 (0.2-2.0) % Neut # (Auto) 5.4 (1.4-6.5) 10^3/uL Lymph # (Auto) 2.1 (1.2-3.8) 10^3/uL [place] # (Auto) 0.7 (0.3-0.8) 10^3/uL Eos # (Auto) 0.3 (0.0-0.7) 10^3/uL Baso # (Auto) 0.1 (0.0-0.1) 10^3/uL Abs Immat Gran (auto) 0.01 (0.00-0.03) 10^3/uL Imm/Tot Granulo (auto) 0.1 (0.0-0.5) % Sodium 137 (136-145) mmol/L Potassium 3.6 (3.5-5.1) mmol/L Chloride 102 (98-107) mmol/L Carbon Dioxide 25.7 (21.0-32.0) mmol/L Anion Gap 12.9 BUN 6.0 L (7.0-18.0) mg/dL Creatinine 0.71 (0.55-1.02) mg/dL Est GFR ( Amer) >60 (>=60) Est GFR (Non-Af Amer) >60 (>=60) BUN/Creatinine Ratio 8.5 Glucose 109 H (74-106) mg/dL Lactate 1.4 (0.4-2.0) mmol/L Calcium 8.4 L (8.5-10.1) mg/dL Total Bilirubin 0.3 (0.2-1.0) mg/dL AST 9 L (15-37) U/L ALT 21 (14-59) U/L Alkaline Phosphatase 63 (46-116) U/L Total Protein 7.5 (6.4-8.2) g/dL Albumin 4.1 (3.4-5.0) g/dL Globulin 3.4 g/dL Albumin/Globulin Ratio 1.2 Lipase 33.0 L (73.0-393.0) U/L Urine Color Yellow (YELLOW) Urine Clarity Clear (CLEAR) Urine pH 6.0 (5.0-9.0) Ur Specific [place] 1.020 (1.005-1.025) Urine Protein Negative (NEG/TRACE) mg/dL Urine Glucose (UA) Negative (NEGATIVE) mg/dL Urine Ketones Negative (NEGATIVE) mg/dL Urine Occult Blood Negative (NEGATIVE) Urine Nitrite Negative (NEGATIVE) Urine Bilirubin Negative (NEGATIVE) Urine Urobilinogen 0.2 (0.2-1.0) EU/dL Ur Leukocyte Esterase Negative (NEGATIVE) Discharge Plan Discharge Chief Complaint: Abdominal Pain Clinical Impression: Post-operative pain, Intermittent lower abdominal pain Patient Disposition: Home, Self-Care Time of Disposition Decision: 15:40 Condition: Good Mode of Transportation: Private Vehicle Prescriptions / Home Meds: No Action prazosin 1 mg capsule 1 mg PO Q12H Hold Instructions: pt decision oxcarbazepine 300 mg tablet 300 mg PO BID Hold Instructions: pt decision omeprazole 40 mg capsule,delayed release(DR/EC) 40 mg PO BID amitriptyline 50 mg tablet 50 mg PO QDAY albuterol sulfate 90 mcg/actuation HFA aerosol inhaler 2 inh INHALATION Q6H fluticasone propionate 50 mcg/actuation spray,suspension 2 spray INTRANASAL Q12H dicyclomine 10 mg capsule 10 mg PO BID loratadine 10 mg tablet 10 mg PO Q24H buspirone 15 mg tablet 15 mg PO QDAY cholecalciferol (vitamin D3) 25 mcg (1,000 unit) tablet 1,000 unit PO QDAY Probiotic 3 billion cell capsule 3,000 mmu cells PO DAILY Rx Instructions: administer with a meal Vraylar 3 mg capsule 6 mg PO Q24H wtizcmoven-bpkdyxfyggmyn-fagk 50-325-40 mg tablet 1 tab PO Q6H PRN (Reason: pain) ibuprofen 800 mg tablet 800 mg PO Q8H PRN (Reason: pain) 14 Days Qty: 40 0RF oxycodone-acetaminophen [Percocet] 5-325 mg tablet 1 tab PO Q6H PRN (Reason: pain) 7 Days Qty: 28 0RF Instructions: Abdominal Pain (ED) Stand Alone Forms: Portal Instructions Referrals: Valentin Gallego DO [Primary Care Provider] - As soon as possible Discharge Date/Time: 11/20/22 15:40
[2022-11-20] MEDS: MORPHINE SULFATE 2 MG/ML SYRINGE IV (13:33)
[2022-11-20] MEDS: 0.9 % SODIUM CHLORIDE 1,000 ML 100 ML IV (13:33)
[2022-11-20] MEDS: KETOROLAC TROMETHAMINE 30 MG/ML VIAL 15 MG IVP (13:34)
[2022-11-20] MEDS: ONDANSETRON PF 4 MG/2 ML VIAL IV (13:34)
[2022-11-20 13:52] LABS: Basophils Absolute Auto 0.1 10^3/uL (0.0-0.1); Basophils Percent Auto 0.8 % (0.2-2.0); Eosinophils Absolute Auto 0.3 10^3/uL (0.0-0.7); Hematocrit 40.9 % (36.0-48.0); Hemoglobin 13.3 g/dL (12.0-16.0); Immature Granulocytes Abs Auto 0.01 10^3/uL (0.00-0.03); Immature Granulocytes Pct Auto 0.1 % (0.0-0.5); Lymphocytes Absolute Auto 2.1 10^3/uL (1.2-3.8); Lymphocytes Percent Auto 24.6 % (20.5-60.0); Mean Corpuscular HGB Conc 32.5 g/dL (29.9-35.2); Mean Corpuscular Hemoglobin 30.1 pg (26.7-34.0); Mean Corpuscular Volume 92.5 fL (81.0-99.0); Mean Platelet Volume 9.6 fL (9.5-13.5); Monocytes Absolute Auto 0.7 10^3/uL (0.3-0.8); Monocytes Percent Auto 7.8 % (1.7-12.0); Neutrophils Absolute Auto 5.4 10^3/uL (1.4-6.5); Neutrophils Percent Auto 63.7 % (43.0-75.0); Platelet Count 350 10^3/uL (150-450); Red Blood Count 4.42 10^6/uL (4.20-5.40); Red Cell Distribution Width 14.2 % (11.0-15.0); White Blood Count 8.5 10^3/uL (4.0-11.0)
[2022-11-20 13:54] LABS: Bilirubin Urine NEGATIVE (NEGATIVE); Blood Urine NEGATIVE (NEGATIVE); Clarity Urine CLEAR (CLEAR); Color Urine YELLOW (YELLOW); Glucose Urine UA NEGATIVE (NEGATIVE); Ketones Urine NEGATIVE (NEGATIVE); Leukocyte Esterase Urine NEGATIVE (NEGATIVE); Nitrite Urine NEGATIVE (NEGATIVE); Protein Urine NEGATIVE (NEG/TRACE); Urobilinogen Urine 0.2 EU/dL (0.2-1.0)
[2022-11-20 13:57] LABS: Urine Microscopic Indicated NO
[2022-11-20 14:07] LABS: Alanine Aminotransferase 21 U/L (14-59); Albumin Globulin Ratio 1.2; Albumin Level 4.1 g/dL (3.4-5.0); Alkaline Phosphatase 63 U/L (46-116); Anion Gap 12.9; Aspartate Amino Transferase 9 U/L (15-37); BUN Creatinine Ratio 8.5; Bilirubin Total 0.3 mg/dL (0.2-1.0); Calcium 8.4 mg/dL (8.5-10.1); Carbon Dioxide 25.7 mmol/L (21.0-32.0); Chloride 102 mmol/L (98-107); Estimated GFR (African America >60 (>=60); Estimated GFR (Non-African Ame >60 (>=60); Globulin 3.4 g/dL; Glucose 109 mg/dL (74-106); Potassium 3.6 mmol/L (3.5-5.1); Sodium 137 mmol/L (136-145); Total Protein 7.5 g/dL (6.4-8.2)
[2022-11-20 14:10] LABS: Lactate/Lactic Acid 1.4 mmol/L (0.4-2.0)
[2022-11-20] MEDS: MORPHINE SULFATE 4 MG/ML VIAL IV (14:18)
== END 2022-11-20 15:40 | disposition home or self-care (01) ==
PROVIDERS: Personal Emergency Response Attendant; Emergency Provider Emergency Medicine; PCP Obstetrics & Gynecology
DX: G89.18 Other acute postprocedural pain (principal); R10.30 Lower abdominal pain, unspecified; Z90.49 Acquired absence of other specified parts of digestive tract; Z90.710 Acquired absence of both cervix and uterus; Z79.899 Other long term (current) drug therapy; F17.210 Nicotine dependence, cigarettes, uncomplicated
CPT/HCPCS: 36415; 74176; 80053; 81003; 83605; 83690; 85025; 96374; 96375; 96376; 99284

== ENCOUNTER 2023-01-27 16:20 | Emergency (ER) | payer OTHER, SELFPAY ==
[2023-01-27 16:27] VITALS: BP 124/71; PULSE 65; RESP 16; TEMP 37.2; O2SAT 99; BMI 32.3
--- NOTE | 2023-01-27 16:38 | ED.GENADUL1 ---
HPI - General Adult General Chief complaint: Upper Respiratory Infection Stated complaint: Upper Respiratory Infection Time Seen by Provider: 01/27/23 16:22 Source: patient and family Mode of arrival: walk-in Limitations: no limitations History of Present Illness HPI narrative: 32-year-old female presents because she hasn't been feeling good since this morning. She's been coughing and has had vomiting and diarrhea. She missed work today. No documented fever. No known ill contacts. No skin rash. Related Data Home Medications Medication Instructions Recorded Confirmed albuterol sulfate 90 mcg/actuation 2 inh inhalation Q6H 10/15/22 10/29/22 aerosol inhaler amitriptyline 50 mg tablet 50 mg PO QDAY 10/15/22 10/29/22 buspirone 15 mg tablet 15 mg PO QDAY 10/15/22 10/29/22 mfmjodchsd-oqryzdpzaxbml-vbqukxfy 1 tab PO Q6H PRN pain 10/15/22 10/29/22 50 mg-325 mg-40 mg tablet cariprazine 3 mg capsule (Vraylar) 6 mg PO Q24H 10/15/22 10/29/22 cholecalciferol (vitamin D3) 25 1,000 unit PO QDAY 10/15/22 10/29/22 mcg (1,000 unit) tablet dicyclomine 10 mg capsule 10 mg PO BID 10/15/22 10/29/22 fluticasone propionate 50 2 spray intranasal Q12H 10/15/22 10/29/22 mcg/actuation nasal spray,suspension lactobacillus combination no.4 3 3,000 mmu cells PO DAILY 10/15/22 10/15/22 billion cell capsule (Probiotic) loratadine 10 mg tablet 10 mg PO Q24H 10/15/22 10/29/22 omeprazole 40 mg capsule,delayed 40 mg PO BID 10/15/22 10/29/22 release oxcarbazepine 300 mg tablet 300 mg PO BID 10/15/22 10/29/22 prazosin 1 mg capsule 1 mg PO Q12H 10/15/22 10/15/22 Previous Rx's Medication Instructions Recorded ibuprofen 800 mg tablet 800 mg PO Q8H PRN pain 14 days #40 10/29/22 tabs oxycodone-acetaminophen 5 mg-325 1 tab PO Q6H PRN pain 7 days #28 10/29/22 mg tablet (Percocet) tabs benzonatate 100 mg capsule 100 mg PO TID PRN cough #20 caps 01/27/23 ondansetron 4 mg disintegrating 4 mg PO Q6H PRN nausea and 01/27/23 tablet vomiting #20 tabs Allergies Allergy/AdvReac Type Severity Reaction Status Date / Time adhesive tape Allergy Rash Verified 01/27/23 16:34 blaes Allergy throat Verified 01/27/23 16:34 swelling latex Allergy Rash Verified 01/27/23 16:34 morphine AdvReac Severe Vomiting Verified 01/27/23 17:43 Review of Systems ROS Narrative A ten point review of systems is negative except as noted above. [facility] Medical History (Updated 01/27/23 @ 18:24 by Ar Garcia MD) Anemia ?D64.9 - Anemia, unspecified (ICD-10) Anxiety ?F41.9 - Anxiety disorder, unspecified (ICD-10) Arthritis ?M19.90 - Unspecified osteoarthritis, unspecified site (ICD-10) Asthma ?J45.909 - Unspecified asthma, uncomplicated (ICD-10) Back pain ?M54.9 - Dorsalgia, unspecified (ICD-10) Bipolar disorder ?F31.9 - Bipolar disorder, unspecified (ICD-10) Clostridium difficile infection ?A49.8 - Other bacterial infections of unspecified site (ICD-10) Delayed recovery from anesthesia Depression ?F32.A - Depression, unspecified (ICD-10) Dysmenorrhea ?N94.6 - Dysmenorrhea, unspecified (ICD-10) Dyspareunia Heartburn ?R12 - Heartburn (ICD-10) Insomnia ?G47.00 - Insomnia, unspecified (ICD-10) Irregular heart beat ?I49.9 - Cardiac arrhythmia, unspecified (ICD-10) Kidney stones ?N20.0 - Calculus of kidney (ICD-10) Menorrhagia ?N92.0 - Excessive and frequent menstruation with regular cycle (ICD-10) Migraine ?G43.909 - Migraine, unspecified, not intractable, without status migrainosus (ICD-10) MRSA (methicillin resistant Staphylococcus aureus) ?A49.02 - Methicillin resistant Staphylococcus aureus infection, unspecified site (ICD-10) Palpitations ?R00.2 - Palpitations (ICD-10) Panic attacks ?F41.0 - Panic disorder [episodic paroxysmal anxiety] (ICD-10) Pelvic pain ?R10.2 - Pelvic and perineal pain (ICD-10) Pneumonia ?J18.9 - Pneumonia, unspecified organism (ICD-10) Postoperative nausea and vomiting ?R11.2 - Nausea with vomiting, unspecified (ICD-10) ?Z98.890 - Other specified postprocedural states (ICD-10) Seizures ?R56.9 - Unspecified convulsions (ICD-10) Skin cancer ?C44.90 - Unspecified malignant neoplasm of skin, unspecified (ICD-10) Surgical History (Updated 10/15/22 @ 09:30 by Traci Cadet NP) History of cholecystectomy (04/07/22) ?Z90.49 - Acquired absence of other specified parts of digestive tract (ICD-10) History of endometrial ablation ?Z98.890 - Other specified postprocedural states (ICD-10) History of hernia repair ?Z98.890 - Other specified postprocedural states (ICD-10) ?Z87.19 - Personal history of other diseases of the digestive system (ICD-10) History of tonsillectomy and adenoidectomy ?Z90.89 - Acquired absence of other organs (ICD-10) History of tubal ligation ?Z98.51 - Tubal ligation status (ICD-10) Family History (Updated 10/15/22 @ 09:30 by Traci Cadet NP) Other Family history of COPD (chronic obstructive pulmonary disease) Family history of breast cancer Family history of cervical cancer Family history of coronary artery disease Family history of diabetes mellitus Family history of emphysema Family history of heart disease Family history of lung cancer Family history of myocardial infarction Family history of prostate cancer Family history of renal failure Family history of stroke Social History (Updated 10/15/22 @ 09:22 by Traci Cadet NP) Within the past year, how often did you have a drink containing alcohol: monthly or less Smoking status: Current every day smoker What tobacco products do you use: cigarettes Pack-years instructions: Please document either packs per day or cigarettes per day in order for pack years to calculate correctly. If using both packs per day and cigarettes per day, please make sure that they denote the same thing. If they differ, pack-years will calculate based on packs per day. Packs Per Day Cigarettes Per Day 1/4 of a pack 5 1/2 a pack 10 3/4 of a pack 15 1 pack 20 1.5 pack 30 2 packs 40 2.5 packs 50 3 packs 60 Packs per day: 3 Years smoked: 7 Smoking pack-years: 21.00 Non-prescribed substance use: denies use Highest level of school completed/degree received: high school graduate Exam Narrative Exam Narrative: Nurses note and vital signs reviewed and patient is not hypoxic. General: The patient appears well and in no apparent distress. Patient is resting comfortably on cart. Skin: Warm, dry, no pallor noted. There is no rash noted. Head: Normocephalic, atraumatic Eye: Normal conjunctiva, no drainage Ears, Nose, Mouth, and Throat: oral mucosa is moist. Nares patent. Cardiovascular: Regular Rate and Rhythm Respiratory: Patient is in no distress, no accessory muscle use, lungs are clear to auscultation, no wheezing, rales or rhonchi Back: non-tender GI: soft and nontender Musculoskeletal: The patient has no evidence of calf tenderness, no pitting edema, symmetrical pulses noted bilaterally Neurological: A&O, normal speech Psychiatric: Cooperative Constitutional Vital Signs, click to edit/add: Last Vital Signs Temp 98.9 F 01/27/23 16:27 Pulse 65 01/27/23 16:27 Resp 16 01/27/23 16:27 BP 124/71 01/27/23 16:27 Pulse Ox 99 01/27/23 16:27 O2 Del Method Room Air 01/27/23 16:27 Course Vital Signs Vital signs: Vital Signs Temperature 98.9 F 01/27/23 16:27 Pulse Rate 65 01/27/23 16:27 Respiratory Rate 16 01/27/23 16:27 Blood Pressure 124/71 01/27/23 16:27 Pulse Oximetry 99 01/27/23 16:27 Oxygen Delivery Method Room Air 01/27/23 16:27 Temperature 98.9 F 01/27/23 16:27 Pulse Rate 65 01/27/23 16:27 Respiratory Rate 16 01/27/23 16:27 Blood Pressure 124/71 01/27/23 16:27 Pulse Oximetry 99 01/27/23 16:27 Oxygen Delivery Method Room Air 01/27/23 16:27 Medical Decision Making MDM Narrative Medical decision making narrative: Covid test and blood work is negative. My clinical impressions that she has a viral illness. Antibiotic is not indicated. She was given IV fluids and is able to be discharged home. Treatment diagnosis and follow-up were discussed with the patient. Lab Data Lab results reviewed: Yes I reviewed the patient's lab results Labs: Lab Results 01/27/23 01/27/23 Range/Units 16:35 16:58 WBC 10.4 (4.0-11.0) 10^3/uL RBC 4.66 (4.20-5.40) 10^6/uL Hgb 14.1 (12.0-16.0) g/dL Hct 43.0 (36.0-48.0) % MCV 92.3 (81.0-99.0) fL MCH 30.3 (26.7-34.0) pg MCHC 32.8 (29.9-35.2) g/dL RDW 13.5 (11.0-15.0) % Plt Count 314 (150-450) 10^3/uL MPV 10.1 (9.5-13.5) fL Neut % (Auto) 69.4 (43.0-75.0) % Lymph % (Auto) 21.6 (20.5-60.0) % [facility] % (Auto) 7.6 (1.7-12.0) % Eos % (Auto) 0.7 L (0.9-7.0) % Baso % (Auto) 0.5 (0.2-2.0) % Neut # (Auto) 7.2 H (1.4-6.5) 10^3/uL Lymph # (Auto) 2.3 (1.2-3.8) 10^3/uL [facility] # (Auto) 0.8 (0.3-0.8) 10^3/uL Eos # (Auto) 0.1 (0.0-0.7) 10^3/uL Baso # (Auto) 0.1 (0.0-0.1) 10^3/uL Abs Immat Gran (auto) 0.02 (0.00-0.03) 10^3/uL Imm/Tot Granulo (auto) 0.2 (0.0-0.5) % Sodium 139 (136-145) mmol/L Potassium 3.0 L (3.5-5.1) mmol/L Chloride 100 (98-107) mmol/L Carbon Dioxide 27.3 (21.0-32.0) mmol/L Anion Gap 14.7 BUN 7.0 (7.0-18.0) mg/dL Creatinine 0.76 (0.55-1.02) mg/dL Est GFR ( Amer) >60 (>=60) Est GFR (Non-Af Amer) >60 (>=60) BUN/Creatinine Ratio 9.2 Glucose 98 (74-106) mg/dL Calcium 8.9 (8.5-10.1) mg/dL SARS-CoV-2 (PCR) Negative (NEGATIVE) Discharge Plan Discharge Chief Complaint: Upper Respiratory Infection Clinical Impression: Viral infection Patient Disposition: Home, Self-Care Time of Disposition Decision: 18:23 Condition: Good Mode of Transportation: Private Vehicle Prescriptions / Home Meds: New benzonatate 100 mg capsule 100 mg PO TID PRN (Reason: cough) Qty: 20 0RF ondansetron 4 mg tablet,disintegrating 4 mg PO Q6H PRN (Reason: nausea and vomiting) Qty: 20 0RF No Action prazosin 1 mg capsule 1 mg PO Q12H Hold Instructions: pt decision oxcarbazepine 300 mg tablet 300 mg PO BID Hold Instructions: pt decision omeprazole 40 mg capsule,delayed release(DR/EC) 40 mg PO BID amitriptyline 50 mg tablet 50 mg PO QDAY albuterol sulfate 90 mcg/actuation HFA aerosol inhaler 2 inh INHALATION Q6H fluticasone propionate 50 mcg/actuation spray,suspension 2 spray INTRANASAL Q12H dicyclomine 10 mg capsule 10 mg PO BID loratadine 10 mg tablet 10 mg PO Q24H buspirone 15 mg tablet 15 mg PO QDAY cholecalciferol (vitamin D3) 25 mcg (1,000 unit) tablet 1,000 unit PO QDAY Probiotic 3 billion cell capsule 3,000 mmu cells PO DAILY Rx Instructions: administer with a meal Vraylar 3 mg capsule 6 mg PO Q24H qnzpklajjj-tsbrcjqubfnfr-tnin 50-325-40 mg tablet 1 tab PO Q6H PRN (Reason: pain) ibuprofen 800 mg tablet 800 mg PO Q8H PRN (Reason: pain) 14 Days Qty: 40 0RF oxycodone-acetaminophen [Percocet] 5-325 mg tablet 1 tab PO Q6H PRN (Reason: pain) 7 Days Qty: 28 0RF Instructions: Viral Syndrome (ED) Stand Alone Forms: Portal Instructions Referrals: Valentin Gallego DO [Primary Care Provider] - 1 week
[2023-01-27] MEDS: 0.9 % SODIUM CHLORIDE 1,000 ML 1000 ML IV (16:58)
[2023-01-27] MEDS: ONDANSETRON PF 4 MG/2 ML VIAL IV ×2 (16:58→18:37)
[2023-01-27 17:13] LABS: Basophils Absolute Auto 0.1 10^3/uL (0.0-0.1); Basophils Percent Auto 0.5 % (0.2-2.0); Eosinophils Absolute Auto 0.1 10^3/uL (0.0-0.7); Eosinophils Percent Auto 0.7 % (0.9-7.0); Hemoglobin 14.1 g/dL (12.0-16.0); Immature Granulocytes Abs Auto 0.02 10^3/uL (0.00-0.03); Immature Granulocytes Pct Auto 0.2 % (0.0-0.5); Lymphocytes Absolute Auto 2.3 10^3/uL (1.2-3.8); Lymphocytes Percent Auto 21.6 % (20.5-60.0); Mean Corpuscular HGB Conc 32.8 g/dL (29.9-35.2); Mean Corpuscular Hemoglobin 30.3 pg (26.7-34.0); Mean Corpuscular Volume 92.3 fL (81.0-99.0); Mean Platelet Volume 10.1 fL (9.5-13.5); Monocytes Absolute Auto 0.8 10^3/uL (0.3-0.8); Monocytes Percent Auto 7.6 % (1.7-12.0); Neutrophils Absolute Auto 7.2 10^3/uL (1.4-6.5); Neutrophils Percent Auto 69.4 % (43.0-75.0); Platelet Count 314 10^3/uL (150-450); Red Blood Count 4.66 10^6/uL (4.20-5.40); Red Cell Distribution Width 13.5 % (11.0-15.0); White Blood Count 10.4 10^3/uL (4.0-11.0)
[2023-01-27 17:23] LABS: Anion Gap 14.7; BUN Creatinine Ratio 9.2; Calcium 8.9 mg/dL (8.5-10.1); Carbon Dioxide 27.3 mmol/L (21.0-32.0); Chloride 100 mmol/L (98-107); Estimated GFR (African America >60 (>=60); Estimated GFR (Non-African Ame >60 (>=60); Glucose 98 mg/dL (74-106); Sodium 139 mmol/L (136-145)
[2023-01-27 17:30] LABS: SARS-CoV-2 Ag NEGATIVE (NEGATIVE)
[2023-01-27] MEDS: KETOROLAC TROMETHAMINE 30 MG/ML VIAL IVP (18:19)
[2023-01-28 15:14] LABS: SARS-CoV-2 NAA NOT DETECTED (NOT DETECTE)
== END 2023-01-27 18:43 | disposition home or self-care (01) ==
PROVIDERS: Emergency Provider Emergency Medicine; PCP Obstetrics & Gynecology
DX: B34.9 Viral infection, unspecified (principal); F41.9 Anxiety disorder, unspecified; M19.90 Unspecified osteoarthritis, unspecified site; J45.909 Unspecified asthma, uncomplicated; F31.9 Bipolar disorder, unspecified; G47.00 Insomnia, unspecified; Z87.442 Personal history of urinary calculi; Z86.14 Personal history of Methicillin resistant Staphylococcus aureus infection; Z87.01 Personal history of pneumonia (recurrent); Z85.828 Personal history of other malignant neoplasm of skin; Z90.49 Acquired absence of other specified parts of digestive tract; Z98.890 Other specified postprocedural states; Z90.89 Acquired absence of other organs; Z98.51 Tubal ligation status; F17.210 Nicotine dependence, cigarettes, uncomplicated; Z20.822 Contact with and (suspected) exposure to COVID-19; Z79.899 Other long term (current) drug therapy
CPT/HCPCS: 36415; 80048; 85025; 87635; 87811; 96374; 96375; 96376; 99285

== ENCOUNTER 2023-04-19 18:31 | Emergency (ER) | payer OTHER, SELFPAY ==
[2023-04-19 18:39] VITALS: BP 127/94; PULSE 80; RESP 16; TEMP 36.8; O2SAT 96; BMI 34.9
[2023-04-19] MEDS: 0.9 % SODIUM CHLORIDE 1,000 ML 999 ML IV (19:14)
--- OUTSIDE RECORDS SUMMARY | 2023-04-19 19:15 | XMS_ITS | CCD ---
Author Name Unknown Address [address] [place] [address] Organization [facility] Care Team Providers Care Shuttle Buggy Operator Name Role Phone Unavailable Primary Care Provider UnavailPeggy Santos Primary Care Provider [phone] Peggy Thrasher Primary Care Provider Unavailable Primary Care Provider Unavailbeatrice Thrasher DROP WIRE STRINGER - BIOLOGY ADJUNCT INSTRUCTOR, Peggy M Primary Care Provider Anna Marie BIOLOGY ADJUNCT INSTRUCTOR, Peggy Primary Care Provider [phone] Traci Dennison CNP Primary Care Provider [phone] Juma COLLIER - BIOLOGY ADJUNCT INSTRUCTOR, Traci Primary Care Provide r Ed COLLIER - [place] MIXER OPERATORSrinivasa Primary Care Provider Ed DROP WIRE STRINGER - [place] MIXER OPERATOR, Srinivasa Rodríguez Primary Care Provider Ed COLLIER - [place] MIXER OPERATOR, Srinivasa Rodríguez Primary Care Provider Sirena Reilly Admitting UnavailSirena Spears Attending UnavailPeggy Santos Primary Care Unavailable PAY ., DR RIVERA Admitting Unavailable PAY ., DR RIVERA Attending Unavailable PAY ., DR RIVERA Consulting Unavailable REQUEST, NONE LISTED Primary Care Unavaila SUELLEN Alas Consulting Unavailable LORRIE CESPEDES Consulting Unavailable VICK DEL REAL Attending Unavailable VICK DEL REAL Admitting Unavailable SUELLEN LUCAS Consulting Unavailable REQUEST, NONE LISTED Primary Care Unavaila VICK Harmon Attending Unavailable MIRTHA, DR KIRK Pineda Consulting Unavailable REQUEST, NONE LISTED Primary Care Unavaila VICK Harmon Admitting Unavailable HAY ., DR MEHTA Consulting Unavailable REQUEST, NONE LISTED Primary Care Unavaila ble JULES ., DR BUTLER Admitting Unavailable JULES ., DR BUTLER Attending Unavailable JULES ., DR BUTLER Consulting Unavailable REQUEST, DR ANGEL LISTED Primary Care Unavaila ble JULES ., DR BUTLER Admitting Unavailable JULES ., DR BUTLER Attending Unavailable JULES ., DR BUTLER Consulting Unavailable ZIEBER, DR KIRK Pineda Consulting Unavailable Ed BIOLOGY ADJUNCT INSTRUCTOR, Srinivasa Primary Care Provider [phone] ED, SRINIVASA L Referring Unavailable ED, SRINIVASA L Primary Care Unavailable ED, SRINIVASA L Referring Unavailable ED, SRINIVASA L Primary Care Unavailable ARLETTE MOJICA Attending Unavailable ED, SRINIVASA L Primary Care Unavailable ED, SRINIVASA L Primary Care Unavailable SERENITY WILL Attending Unavailable ED, SRINIVASA L Primary Care Unavailable ED, SRINIVASA L Primary Care Unavailable DORKOSKIE, BRYANT D Referring Unavailable ED, SRINIVASA L Primary Care Unavailable DORKOSKIE, BRYANT D Referring Unavailable ED, SRINIVASA L Primary Care Unavailable Vasiliy CHASE, Mirza Harvey Attending U navailable Ed [facility], [facility] Unavailab le Ed BIOLOGY ADJUNCT INSTRUCTOR, [facility] Care Unavailab le Vasiliy CHASE, Mirza Harvey Attending U fara Rascon MD, Duc Macdonald Attending Leonilavai lable Ed ABENA, [facility] Unavailab le Kate Burris PA-C Attending Unavaila ble Ed ABNEA, [facility] Unavailab Dede Harding MD, I Attending Unavailable Amanda ASLVATORE, Mirza Harvey Referring U navailable Ed ABENA, Srinivasa Yojana Primary [facility] [place] UnavailDuc Martinez MD Attending Jassi andrade [facility] [place] Consulting Unavailable Ed BIOLOGY ADJUNCT INSTRUCTOR, Srinivasamarshall Dial Primary [facility] [place] Unavailab Gracie CA, Duc Macdonald Attending Leonilavasergei lable Ed [facility]BENA, [facility] Unavailab le Vasiliy CHASE, Mirza Harvey Attending U navailable Ed ABENA, [facility] Unavailab le Allergies Allergy Classification Reported Allergen(s) Allergy Type Date of Onset Reaction(s) Facility Adhesive Tape (3 sources) Adhesive Tape Substance Allergy [address] [place] [address] Latex (3 sources) Latex Substance Allergy 2 [facility] (20 sources) Adhesive Tape Propensity to adverse reactions to drug 6 [place], [place] (20 sources) Latex; Translations: [Latex] Propensity to adverse reactions to drug 2 [place] (20 sources) Eggs Or Egg-Derived Products Propensity to adverse reactions to drug 2 [place] (15 sources) tracy allergenic extract; Translations: [Tracy] Drug Allergy 2 [facility] (13 sources) egg extract; Translations: [Egg] Drug Allergy 2 [facility] (13 sources) Fish - dietary; Translations: [Fish] Allergy to substance 2 [facility] (1 source) Latex Drug allergy (disorder) 3 [facility] (1 source) piperazine Drug Allergy [facility] (9 sources) Morphine Derivatives; Translations: [Morphine Derivatives] Drug allergy 3 Nausea [facility] (1 source) Egg; Translations: [Eggs] Propensity to adverse reactions to food (disorder) [facility] Repository Medications Current Medications Medication Drug Class(es) Dates Sig (Normalized) Sig (Original) acetaminophen 325 mg / HYDROcodone bitartrate 5 mg oral tablet (20 sources) Opioid Agonist Start: 03-16-2022 HYDROcodone-acetam inophen (NORCO) 5-325 MG per tablet Indications: Pain of upper abdomen Take 1 tablet by mouth every 8 hours as needed for Pain for up to 3 days. Intended supply: 5 days. Take lowest dose possible to manage pain 12 tablet 0 03/16/2022 Active Start: 11-29-2019 End: 11-29-2019 HYDROcodone-acetaminophen (N ORCO) 5-325 MG per tablet 1 tablet Start: 05-07-2018 End: 03-11-2020 [place] 5-325 MG OR TABS 05/07 - 03/11/2020 Provider: Conversion Provider Start: 05-07-2018 End: 03-11-2020 NORCO MISC 05/07/2018 - 02/12 Provider: Start: 05-07-2018 End: 05-07-2018 NORCO MISC 05/07/2018 - 04/13 Provider: aluminum hydroxide 80 mg/ml / magnesium hydroxide 80 mg/ml / simethicone 8 mg/ml oral suspension (14 sources) Start: 02-05-2021 take 15 mL by mouth twice daily as needed for pain aluminum & magnesium hydroxide-simethicone (MAALOX MAX) 400-400-40 MG/5ML SUSP Take 15 mLs by mouth 2 times daily as needed (abdominal pain) 100 mL 0 02/05/2021 Active ARIPiprazole 10 mg oral tablet (20 sources) Atypical Antipsychotic Start: 02-07-2020 take 1 tablet by mouth once daily ARIPiprazole (ABILIFY) 10 MG tablet Take 10 mg by mouth daily 0 02/07/2020 Active Start: 12-25-2019 End: 02-14-2021 Abilify 5 MG Oral Tablet - 02/14/2021 Provider: Peggy Thrasher CNP benzonatate 100 mg oral capsule (9 sources) Non-narcotic Antitussive Start: 01-28-2023 Benzonatate 100 MG Oral Capsule 01/28/2023 Provider: Start: 12-30-2018 End: 01-06-2019 take 1 capsule by mouth three times daily as needed for cough benzonatate (TESSALON PERLES) 100 MG capsule Take 1 capsule by mouth 3 times daily as needed for Cough 30 capsule 0 12/30/2018 01/06/2019 Active 60 actuat budesonide 0.16 mg/actuat / formoterol fumarate 0.0045 mg/actuat metered dose inhaler (15 sources) Corticosteroid, beta2-Adrenergic Agonist Start: 02-05-2023 Symbicort 160-4 .5 MCG/ACT Inhalation Aerosol 02/05/2023 Provider: Srinivasa Ward CNP Start: 11-30-2022 End: 02-05-2023 Symbicort 80-4.5 MCG/ACT Inh alation Aerosol 11/30/2022 - 02/05/2023 Provider: Srinivasa Ward CNP cephalexin 500 mg oral capsule (2 sources) Cephalosporin Antibacterial Start: 12-31-2019 End: 01-07-2020 take 1 capsule by mouth four times daily cephALEXin (KEFLEX) 500 MG capsule Take 1 capsule by mouth 4 times daily for 7 days 28 capsule 0 12/31/2019 01/07/2020 Active cetirizine hydrochloride 10 mg oral tablet (20 sources) Histamine-1 Receptor Antagonist Start: 12-31-2022 ZyrTEC Allergy 10 MG Oral Tablet 12/31/2022 Provider: Srinivasa Ward CNP Start: 11-10-2016 End: 03-11-2020 ZYRTEC 10 mg MISC 11/10/2016 - 03/11/2020 Provider: Start: 11-10-2016 End: 11-10-2016 ZYRTEC 10 mg [facility] 11/10/2016 - 11/10/2016 Provider: cholecalciferol 0.025 mg oral tablet (11 sources) Vitamin D Start: 03-26-2022 take 1 tablet by mouth once daily vitamin D3 (CHOLECALCIFEROL) 25 MCG (1000 UT) TABS tablet TAKE ONE TABLET BY MOUTH ONCE DAILY 0 03/26/2022 Active Cholecalciferol (VITAMIN D3) 125 MCG (5000 UT) TABS Take by mouth 0 Active sugar-free cholestyramine resin 4000 mg powder for oral suspension (1 source) Bile Acid Sequestrant Start: 01-20-2022 cholesty ramine light 4 g packet USE one PACKET BY MOUTH TWICE DAILY. mix in 4-6 ounces of water OR noncarbonated beverage of your choice. 0 01/20/2022 Active Cranberry preparation (1 source) Non-Standardized Food Allergenic Extract, Non-Standardized Plant Allergenic Extract AZO-CRANBERRY PO Andres e by mouth 0 Active fluticasone propionate 0.05 mg/actuat metered dose nasal spray (20 sources) Corticosteroid Start: 07-16-2021 End: 11-30-2022 Fluticasone Propionate 50 MCG/ACT Nasal Suspension 11/30/2022 Provider: Srinivasa Ward CNP take 1 spray(s) nasal route once daily fluticasone (FLONASE) 50 MCG/ACT nasal spray 1 spray by Each Nostril route daily 0 Active hydrocortisone 10 mg/ml / neomycin 3.5 mg/ml / polymyxin b [id number] unt/ml otic suspension (1 source) Aminoglycoside Antibacterial, Polymyxin-class Antibacterial, Corticosteroid Start: 10-09-2020 cjbeibsp-oloyabpqs-zakbriyqg isone (CORTISPORIN) otic suspension 3 drop Start: 10-09-2020 neomycin-polym yxin-hydrocortisone (CORTISPORIN) otic suspension 3 drop ibuprofen 800 mg oral tablet (20 sources) Nonsteroidal Anti-inflammatory Drug Start: 10-29-2022 Ibuprofen 800 MG Oral Tablet 10/29/2022 Provider: Start: 03-17-2020 take 0.5 tablet by m outh every six hours as needed for pain ibuprofen (ADVIL;MOTRIN) 600 MG tablet Take 0.5 tablets by mouth every 6 hours as needed for Pain 30 tablet 1 03/17/2020 Active Start: 08-29-2018 take 1 tablet by vinh th every six hours as needed for pain ibuprofen (ADVIL;MOTRIN) 600 MG tablet Take 1 tablet by mouth every 6 hours as needed for Pain 21 tablet 0 08/29/2018 Active Start: 10-02-2015 End: 04-15-2021 Ibuprofen 800 MG Oral Tablet 12/25/2019 - 04/15/2021 Provider: Peggy Thrasher CNP levETIRAcetam 500 mg oral ta blet (20 sources) Start: 03-17-2020 End: 03-17-2020 levetiracetam (KEPPRA) 500 mg/100 mL IVPB Start: 08-29-2018 take 1 tablet by vinh th twice daily levETIRAcetam (KEPPRA) 500 MG tablet Take 1 tablet by mouth 2 times daily 14 tablet 0 08/29/2018 Active Start: 05-07-2018 End: 03-11-2020 Keppra 250 MG OR TABS 2018 - 03/11/2020 Provider: Conversion Provider Start: 07-09-2015 End: 03-11-2020 Keppra XR 500 MG OR TB24 - 03/11/2020 Provider: naproxen 500 mg oral tablet (20 sources) Nonsteroidal Anti-inflammatory Drug Start: 07-03-2021 End: 07-10-2021 take 1 tablet by mouth twice daily at mealtime naproxen (NAPROSYN) 500 MG tablet Take 1 tablet by mouth 2 times daily (with meals) for 7 days 14 tablet 0 07/03/2021 Active Start: 07-04-2015 End: 03-11-2020 Naproxen 500 MG OR TABS 06/11 - 03/11/2020 Provider: ondansetron 4 mg disintegrating oral tablet (20 sources) Serotonin-3 Receptor Antagonist Start: 01-28-2023 Ondansetron 4 MG Ora l Tablet Disintegrating 01/28/2023 Provider: Start: 06-08-2022 ondansetron (Z OFRAN ODT) [address] 1 tablet under the tongue every 8 hours as needed for Nausea 6 tablet 0 06/08/2022 Active Start: 06-07-2022 End: 06-07-2022 ondansetron (ZOFRAN) injecti on 4 mg Start: 03-15-2022 End: 11-30-2022 Ondansetron HCl 4 MG Oral Ta blet 03/15/2022 - 11/30/2022 Provider: Start: 12-04-2021 End: 01-22-2022 Zofran 4 MG Oral Tablet 12/12 - 01/22/2022 Provider: Start: 11-12-2021 End: 11-12-2021 ondansetron (ZOFRAN) injecti on 4 mg Start: 08-11-2021 End: 11-30-2022 Ondansetron 4 MG Oral Tablet Disintegrating 08/13/2021 - 11/25/2021 Provider: Start: 08-11-2021 End: 08-11-2021 ondansetron (ZOFRAN) injecti on 4 mg Start: 06-06-2021 End: 06-13-2021 inject 1 tablet by subcutaneous injection every eight hours as needed for nausea ondansetron (ZOFRAN-ODT) [address] 1 tablet under the tongue every 8 hours as needed for Nausea or Vomiting May Sub regular tablet (non-ODT) if insurance does not cover ODT. 20 tablet 0 06/06/2021 06/13/2021 Active Start: 06-06-2021 End: 06-06-2021 ondansetron (ZOFRAN) injecti on 4 mg Start: 02-05-2021 End: 02-05-2021 ondansetron (ZOFRAN) injecti on 4 mg Start: 09-04-2020 End: 09-04-2020 ondansetron (ZOFRAN) injecti on 4 mg Start: 06-01-2020 End: 09-04-2020 take 1 tablet by mouth every eight hours as needed for nausea ondansetron (ZOFRAN ODT) 4 MG disintegrating tablet Take 1 tablet by mouth every 8 hours as needed for Nausea or Vomiting 10 tablet 0 09/04/2020 Active Start: 06-01-2020 End: 06-01-2020 ondansetron (ZOFRAN) injecti on 4 mg Start: 12-14-2019 End: 12-14-2019 ondansetron (ZOFRAN) injecti on 8 mg Start: 11-29-2019 End: 11-29-2019 ondansetron (ZOFRAN) injecti on 4 mg Start: 12-30-2018 End: 12-24-2019 take 1 tablet by mouth every eight hours as needed for nausea ondansetron (ZOFRAN ODT) 4 MG disintegrating tablet Take 1 tablet by mouth every 8 hours as needed for Nausea 20 tablet 0 12/30/2018 12/24/2019 Discontinued (Therapy completed) Start: 12-30-2018 End: 12-30-2018 ondansetron (ZOFRAN) tablet 4 mg Start: 09-08-2016 End: 03-11-[address] [facility] - 03/11/2020 Provider: Start: 09-08-2016 End: 09-08-2016 ZOFRAN ODT 4 MG MISC 017 - 09/08/2016 Provider: OXcarbazepine 150 mg oral tablet (20 sources) Anti-epileptic Agent Start: 03-08-2023 Trileptal 150 MG Oral Tablet 03/08/2023 Provider: Srinivasa Ward CNP Start: 04-03-2021 End: 11-30-2022 OXcarbazepine 300 MG Oral Ta blet 07/17/2021 - 12/11/2021 Provider: Traci Dennison BIOLOGY ADJUNCT INSTRUCTOR pantoprazole 40 mg delayed release oral tablet (8 sources) Proton Pump Inhibitor Start: 12-31-2022 Pantoprazole Sodium 40 MG Oral Tablet Delayed Release 12/31/2022 Provider: Phytosterol Iywsep-WSW-FEK (VAYAROL PO) (1 source) take 4.5 mg by mouth once daily Phytosterol Chktyv-ZYD-VBR (VAYAROL PO) Take 4.5 mg by mouth nightly 0 Active Probiotic Product (PROBIOTIC DAILY PO) (1 source) Probiotic Produc t (PROBIOTIC DAILY PO) Take by mouth 0 Active promethazine hydrochloride 25 mg oral tablet (20 sources) Phenothiazine Start: 02-28-2020 End: 03-06-2020 take 1 tablet by mouth three times daily as needed for nausea promethazine (PHENERGAN) 25 MG tablet Take 1 tablet by mouth 3 times daily as needed for Nausea 12 tablet 0 02/28/2020 03/06/2020 Active Start: 08-01-2015 End: 03-11-2020 PROMETHAZINE 25 MG MISC 07/12 - 03/11/2020 Provider: Start: 08-01-2015 End: 08-01-2015 PROMETHAZINE 25 MG MISC 07/12 - 08/01/2015 Provider: SUMAtriptan 25 mg oral tablet (7 sources) Serotonin-1b and Serotonin-1d Receptor Agonist Start: 01-28-2023 Imitrex 25 MG Oral Tablet 01/28/2023 Provider: Srinivasa Ward CNP Vitamin D 25 MCG (1000 UT) Oral Tablet (20 sources) Start: 02-23-2023 End: 08-22-2023 Vitamin D 25 MCG (1000 UT) Oral Tablet 02/23/2023 - 08/22/2023 Provider: Srinivasa Ward CNP Start: 02-19-2022 End: 02-23-2023 Vitamin D 25 MCG (1000 UT) O ral Tablet 02/19/2022 - 02/23/2023 Provider: Srinivasa Ward CNP Start: 02-19-2022 End: 08-18-2022 Vitamin D 25 MCG (1000 UT) O ral Tablet 02/19/2022 - 08/18/2022 Provider: Srinivasa Ward CNP Start: 07-28-2021 End: 02-19-2022 Vitamin D 25 MCG (1000 UT) O ral Tablet 07/28/2021 - 02/19/2022 Provider: Traci Dennison CNP Start: 07-28-2021 Vitamin D 25 M CG (1000 UT) Oral Tablet 07/28/2021 Provider: Traci Dennison CNP Completed/Discontinued Medications Medication Drug Class(es) Dates Sig (Normalized) Sig (Original) acetaminophen 325 mg oral tablet (2 sources) Start: 10-08-2020 End: 10-08-2020 acetaminophen (TYLENOL) tablet 650 mg Start: 03-17-2020 End: 03-17-2020 acetaminophen (TYLENOL) tabl et 650 mg acetaminophen 325 mg / butalbital 50 mg / caffeine 40 mg oral tablet (20 sources) Barbiturate, Central Nervous System Stimulant, Methylxanthine Start: 02-14-2021 End: 01-28-2023 Royxaldkmr-DKCJ-Bloyyfsx 50-325-40 MG Oral Tablet 02/14/2021 - 01/28/2023 Provider: Peggy Thrasher CNP Start: 08-15-2017 End: 12-24-2019 take 1 tablet by mouth every six hours as needed for headache atphkxvren-ghhyalkvbygac-llddplub (ESGIC ) 50-325-40 MG per tablet Take 1 tablet by mouth every 6 hours as needed for Headaches 30 tablet 0 08/15/2017 12/24/2019 Discontinued (Therapy completed) Start: 01-30-2016 End: 03-11-2020 MARGESIC 50-325-40 MG MISC 1 - 03/11/2020 Provider: Start: 01-30-2016 End: 01-30-2016 MARGESIC 50-325-40 MG MISC 1 - 01/30/2016 Provider: Start: 07-10-2015 End: 03-11-2020 MARGESIC 50-325-40 MG MISC 0 07/10/2015 - 03/11/2020 Provider: Start: 07-10-2015 End: 07-10-2015 MARGESIC 50-325-40 MG MISC 0 07/10/2015 - 07/10/2015 Provider: Start: 07-09-2015 End: 03-11-2020 FIORICET 50-300-40 MG MISC 0 07/09/2015 - 03/11/2020 Provider: Start: 07-09-2015 End: 07-09-2015 FIORICET 50-300-40 MG MISC 0 07/09/2015 - 07/09/2015 Provider: take 1 tablet by mouth twice daily as needed for headache zcotrmsbqv-dioyfptrayebd-wjhifyjx (CECY CET, ESGIC) 50-325-40 MG per tablet Take 1 tablet by mouth 2 times daily as needed for Headaches 0 Active acetaminophen 325 mg / butalbital 50 mg / caffeine 40 mg / codeine phosphate 30 mg oral capsule (20 sources) Opioid Agonist, Barbiturate, Central Nervous System Stimulant, Methylxanthine Start: 02-14-2021 End: 02-14-2021 Smgzdvmrqy-QZKM-Ejag-Cod 28-988-92-30 MG Oral Capsule 02/14/2021 - 02/14/2021 Provider: Peggy Thrasher CNP acetaminophen 325 mg / oxyCODONE hydrochloride 5 mg oral tablet (19 sources) Opioid Agonist Start: 11-25-2022 End: 12-31-2022 oxyCODONE-Acetaminophen 5-32 5 MG Oral Tablet 11/25/2022 - 12/31/2022 Provider: Start: 12-14-2019 End: 12-19-2019 take 1 tablet by mouth every six hours as needed for pain oxyCODONE-acetaminophen (PERCOCET) 5-325 MG per tablet Indications: Non-surgical abdominal pain Take 1 tablet by mouth every 6 hours as needed for Pain for up to 5 days. 15 tablet 0 12/14/2019 12/19/2019 Active oxyCODONE-Acetam inophen (PERCOCET PO) Take by mouth 0 Active AEROECLIPSE REUSABLE BAN MISC (7 sources) Start: 07-04-2015 End: 07-04-2015 AEROECLIPSE REUSABLE BAN MISC 07/04/2015 - 07/04/2015 Provider: AEROECLIPSE REUSABLE BAN MISC (20 sources) Start: 07-04-2015 End: 03-11-2020 AEROECLIPSE REUSABLE BAN MISC 07/04/2015 - 03/11/2020 Provider: [id number] 200 actuat albuterol 0.09 mg/actuat metered dose inhaler (20 sources) beta2-Adrenergic Agonist Start: 07-17-2021 End: 11-30-2022 Ventolin HFA 108 (90 Base) MCG/ACT Inhalation Aerosol, solution 02/11/2022 - 11/30/2022 Provider: Srinivasa Wadr CNP Start: 12-25-2019 End: 02-14-2021 Albuterol Sulfate HFA 108 (9 0 Base) MCG/ACT Inhalation Aerosol Solution 12/25/2019 - 02/14/2021 Provider: Start: 11-05-2016 albuterol sulf ate HFA (PROVENTIL HFA) 108 (90 Base) MCG/ACT inhaler Inhale 2 puffs into the lungs every 4 hours as needed for Wheezing or Shortness of Breath (Space out to every 6 hours as symptoms improve) Space out to every 6 hours as symptoms improve. 1 Inhaler 0 11/05/2016 Active Start: 11-05-2016 albuterol sulf ate HFA (PROVENTIL HFA) 108 (90 Base) MCG/ACT inhaler Inhale 2 puffs into the lungs every 4 hours as needed for Wheezing or Shortness of Breath (Space out to every 6 hours as symptoms improve) Space out to every 6 hours as symptoms improve. 1 Inhaler 0 11/05/2016 Active Start: 07-04-2015 End: 03-11-2020 ALBUTEROL SULFATE 1.25 mg/3 mL [facility] 07/04/2015 - 03/11/2020 Provider: Start: 07-04-2015 End: 07-04-2015 ALBUTEROL SULFATE 1.25 mg/3 mL [facility] 07/04/2015 - 07/04/2015 Provider: aluminum & magnesium hydroxide-simethicone (MAALOX) 30 mL, lidocaine viscous hcl (XYLOCAINE) 5 mL (GI COCKTAIL) (2 sources) Start: 06-06-2021 End: 06-06-2021 aluminum & magnesium hydroxide-simethicone (MAALOX) 30 mL, lidocaine viscous hcl (XYLOCAINE) 5 mL (GI COCKTAIL) Start: 02-05-2021 End: 02-05-2021 aluminum & magnesium hydroxi de-simethicone (MAALOX) 30 mL, lidocaine viscous hcl (XYLOCAINE) 5 mL (GI COCKTAIL) amitriptyline hydrochloride 50 mg oral tablet (20 sources) Tricyclic Antidepressant Start: 12-04-2021 End: 11-30-2022 Amitriptyline HCl 50 MG Oral Tablet 01/20/2022 - 03/09/2022 Provider: amoxicillin 500 mg oral tablet (20 sources) Penicillin-class Antibacterial Start: 02-06-2022 End: 11-30-2022 Amoxicillin 500 MG Oral Tablet 02/06/2022 - 11/30/2022 Provider: Srinivasa Ward CNP Start: 10-08-2020 End: 10-08-2020 amoxicillin (AMOXIL) capsule 500 mg Start: 10-08-2020 End: 10-15-2020 take 1 capsule by mouth three times daily amoxicillin (AMOXIL) 500 MG capsule Take 1 capsule by mouth 3 times daily for 7 days 21 capsule 0 10/08/2020 10/15/2020 Active Start: 08-21-2015 End: 03-11-2020 Amoxicillin 500 MG Oral Tabl et 01/03/2020 - 01/08/2020 Provider: Wyatt Street DDS amoxicillin 875 mg / clavulanate 125 mg oral tablet (20 sources) Penicillin-class Antibacterial Start: 02-05-2023 End: 03-08-2023 Amoxicillin-Pot Clavulanate 875-125 MG Oral Tablet 02/05/2023 - 03/08/2023 Provider: Srinivasa Ward BIOLOGY ADJUNCT INSTRUCTOR Start: 01-26-2020 End: 06-03-2020 Amoxicillin-Pot Clavulanate 500-125 MG Oral Tablet 01/26/2020 - 06/03/2020 Provider: Traci Dennison BIOLOGY ADJUNCT INSTRUCTOR End: 06-06-2021 take 1 tablet by mouth twice daily amoxicillin-clavulanate (AUGMENTIN) 875-125 MG per tablet Take 1 tablet by mouth 2 times daily 0 06/06/2021 Discontinued (Therapy completed) azithromycin 250 mg oral tablet (20 sources) Macrolide Antimicrobial Start: 08-01-2015 End: 03-11-2020 Azithromycin 250 MG OR TABS 08/01/2015 - 03/11/2020 Provider: Brompheniramine / Pseudoephedrine (20 sources) alpha-Adrenergic Agonist Start: 09-08-2016 End: 03-11-2020 BROMFED DM 2-30-10 MG/5 ML [facility] 09/08/2016 - 03/11/2020 Provider: Start: 09-08-2016 End: 09-08-2016 BROMFED DM 2-30-10 MG/5 ML [facility] 09/08/2016 - 09/08/2016 Provider: Start: 01-30-2016 End: 03-11-2020 BROMFED DM 2-30-10 MG/5 ML [facility] 01/30/2016 - 03/11/2020 Provider: Start: 01-30-2016 End: 01-30-2016 BROMFED DM 2-30-10 MG/5 ML [facility] 01/30/2016 - 01/30/2016 Provider: Start: 08-01-2015 End: 03-11-2020 BROMFED DM 2-30-10 MG/5 ML [facility] 08/01/2015 - 03/11/2020 Provider: Start: 08-01-2015 End: 08-01-2015 BROMFED DM 2-30-10 MG/5 ML [facility] 08/01/2015 - 08/01/2015 Provider: busPIRone hydrochloride 15 m g oral tablet (20 sources) Start: 06-01-2022 End: 11-30-2022 busPIRone HCl 15 MG Oral Tablet 06/29/2022 - 11/30/2022 Provider: Start: 02-17-2022 End: 06-01-2022 busPIRone HCl 10 MG Oral Tab let 03/09/2022 - 03/19/2022 Provider: Start: 02-04-2022 End: 02-17-2022 busPIRone HCl 5 MG Oral Tabl et 02/04/2022 - 02/17/2022 Provider: Camphor / Eucalyptus oil / Menthol (20 sources) Start: 11-10-2016 End: 03-11-2020 VICKS VAPORUB 4.8-1.2-2.6% M [facility] 11/10/2016 - 03/11/2020 Provider: Start: 11-10-2016 End: 11-10-2016 VICKS VAPORUB 4.8-1.2-2.6% M [facility] 11/10/2016 - 11/10/2016 Provider: cariprazine 3 mg oral capsule (20 sources) Atypical Antipsychotic Start: 06-01-2022 End: 11-30-2022 Vraylar 3 MG Oral Capsule 06/01/2022 - 11/30/2022 Provider: Start: 02-04-2022 End: 06-01-2022 Vraylar 4.5 MG Oral Capsule, conventional 02/17/2022 - 03/09/2022 Provider: Start: 01-20-2022 End: 02-04-2022 Vraylar 3 MG Oral Capsule - 02/04/2022 Provider: cariprazine hcl (VRAYLAR) 3 MG CAPS capsule Take 4 mg by mouth daily 0 Active chlorhexidine gluconate 1.2 mg/ml mouthwash (20 sources) Start: 01-08-2020 End: 02-14-2021 Peridex 0.12% Mouth/Throat Solution 01/08/2020 - 02/14/2021 Provider: Peggy Thrasher CNP ciprofloxacin 500 mg oral tablet (13 sources) Quinolone Antimicrobial Start: 08-13-2021 End: 11-25-2021 Ciprofloxacin HCl 500 MG Oral Tablet 08/13/2021 - 11/25/2021 Provider: Traci Dennison CNP clarithromycin 500 mg oral tablet (20 sources) Macrolide Antimicrobial Start: 05-07-2018 End: 03-11-2020 Biaxin 500 MG OR TABS 05/07/2018 - 03/11/2020 Provider: Odell Provider clindamycin 150 mg oral capsule (20 sources) Lincosamide Antibacterial Start: 01-08-2020 End: 06-03-2020 Cleocin 150 MG Oral Capsule 01/08/2020 - 06/03/2020 Provider: Peggy Thrasher CNP colestipol hydrochloride 1000 mg oral tablet (14 sources) Bile Acid Sequestrant Start: 12-04-2021 End: 11-30-2022 Colestipol HCl 1 GM Oral Tablet 12/04/2021 - 11/30/2022 Provider: take 1 tablet by mouth twice samantha ly colestipol (COLESTID) 1 g tablet Take 1 g by mouth 2 times daily 0 Active cyclobenzaprine hydrochloride 10 mg oral tablet (20 sources) Muscle Relaxant Start: 12-25-2019 End: 12-11-2021 Cyclobenzaprine HCl 10 MG Oral Tablet 02/14/2021 - 12/11/2021 Provider: Peggy Thrasher CNP DEPO-PROVERA 150 MG/ML MISC (7 sources) Start: 02-13-2016 End: 02-13-2016 DEPO-PROVERA 150 MG/ML MISC 02/13/2016 - 02/13/2016 Provider: DEPO-PROVERA 150 MG/ML MISC (20 sources) Start: 02-13-2016 End: 03-11-2020 DEPO-PROVERA 150 MG/ML MISC 02/13/2016 - 03/11/2020 Provider: dexamethasone 1 mg/ml / neomycin 3.5 mg/ml / polymyxin b [id number] unt/ml ophthalmic suspension (10 sources) Aminoglycoside Antibacterial, Polymyxin-class Antibacterial, Corticosteroid Start: 02-11-2022 End: 11-30-2022 Vntepzbf-Whatrmtdt-Jgi ameth 0.1% Ophthalmic Suspension 02/11/2022 - 11/30/2022 Provider: Start: 02-11-2022 take 1 drop(s) into the eye(s) every four hours zokorecf-exykubclq-odiqzuhw (MAXITROL) [id number] ophthalmic suspension instill ONE drop into affected eye(s) every FOUR hours FOR SEVEN DAYS 0 02/11/2022 Active dicyclomine hydrochloride 10 mg oral capsule (20 sources) Anticholinergic Start: 06-06-2021 dicyclomine (B ENTYL) injection 20 mg Start: 02-14-2021 End: 11-30-2022 Dicyclomine HCl 10 MG Oral C apsule 12/04/2021 - 02/13/2022 Provider: Start: 02-07-2021 dicyclomine (B ENTYL) injection 20 mg Start: 06-01-2020 End: 06-01-2020 dicyclomine (BENTYL) injecti on 20 mg Start: 05-07-2018 End: 03-11-2020 BENTYL 10 MG MISC 05/07/2018 - 03/11/2020 Provider: Start: 05-07-2018 End: 05-07-2018 BENTYL 10 MG MISC 05/07/2018 - 05/07/2018 Provider: doxycycline hyclate 100 mg oral capsule (8 sources) Tetracycline-class Drug Start: 12-31-2022 End: 02-05-2023 Doxycycline Hyclate 100 MG Oral Capsule 12/31/2022 - 02/05/2023 Provider: Srinivasa Ward CNP famotidine 40 mg oral tablet (20 sources) Histamine-2 Receptor Antagonist Start: 02-05-2021 famotidine (PEPCID) injection 20 mg Start: 02-05-2021 End: 11-25-2021 Famotidine 40 MG Oral Tablet 02/06/2021 - 11/25/2021 Provider: famotidine (PEPCID) 20 mg in sodium chloride (PF) 0.9 % 10 mL injection (1 source) Start: 06-07-2022 End: 06-07-2022 famotidine (PEPCID) 20 mg in sodium chloride (PF) 0.9 % 10 mL injection famotidine (PEPCID) 20 mg in sodium chloride (PF) 10 mL injection (1 source) Start: 08-11-2021 End: 08-11-2021 famotidine (PEPCID) 20 mg in sodium chloride (PF) 10 mL injection 2 ml fentaNYL 0.05 mg/ml injection (2 sources) Opioid Agonist Start: 12-14-2019 End: 12-14-2019 fentaNYL (SUBLIMAZE) injection 100 mcg Start: 12-14-2019 End: 12-14-2019 fentaNYL (SUBLIMAZE) injecti on 50 mcg fluconazole 150 mg oral tablet (20 sources) Azole Antifungal Start: 02-05-2023 End: 03-08-2023 Diflucan 150 MG Oral Tablet 02/21/2023 - 03/08/2023 Provider: Srinivasa Ward BIOLOGY ADJUNCT INSTRUCTOR Start: 11-09-2022 End: 12-31-2022 Fluconazole 150 MG Oral Tabl et 11/09/2022 - 12/31/2022 Provider: Start: 01-08-2020 End: 01-26-2020 Diflucan 150 MG Oral Tablet 01/08/2020 - 01/26/2020 Provider: Peggy Thrasher CNP fluocinonide 0.0005 mg/mg topical gel (9 sources) Corticosteroid Start: 05-26-2022 End: 11-30-2022 Fluocinonide 0.05% External Gel 05/26/2022 - 11/30/2022 Provider: hyoscyamine sulfate 0.125 mg oral tablet (12 sources) Start: 01-20-2022 End: 11-30-2022 Hyoscyamine Sulfate 0.125 MG Oral Tablet 01/20/2022 - 11/30/2022 Provider: take 1 tablet by vinh th every six hours as needed hyoscyamine (ANASPAZ;LEVSIN) 125 MCG tab let Take 125 mcg by mouth every 6 hours as needed for Cramping 0 Active iopamidol (ISOVUE-370) 76 % injection 75 mL (5 sources) Start: 11-12-2021 End: 11-12-2021 iopamidol (ISOVUE-370) 76 % injection 75 mL Start: 06-06-2021 End: 06-06-2021 iopamidol (ISOVUE-370) 76 % injection 75 mL Start: 06-01-2020 End: 06-01-2020 iopamidol (ISOVUE-370) 76 % injection 75 mL Start: 12-14-2019 End: 12-14-2019 iopamidol (ISOVUE-370) 76 % injection 75 mL Start: 11-29-2019 End: 11-29-2019 iopamidol (ISOVUE-370) 76 % injection 75 mL 2 ml ketorolac tromethamine 30 mg/ml prefilled syringe (11 sources) Nonsteroidal Anti-inflammatory Drug, Cyclooxygenase Inhibitor Start: 01-28-2023 Ketorolac Tromethamine 60 MG/2ML IM SOLN 01/28/2023 Srinivasa Ward BIOLOGY ADJUNCT INSTRUCTOR Start: 07-03-2021 End: 07-03-2021 ketorolac (TORADOL) injectio n 60 mg Start: 06-06-2021 End: 06-06-2021 ketorolac (TORADOL) injectio n 30 mg Start: 03-17-2020 End: 03-17-2020 ketorolac (TORADOL) injectio n 15 mg Start: 12-14-2019 End: 12-14-2019 ketorolac (TORADOL) injectio n 15 mg Comment on above: Patient tolerated th erapy well. No signs or symptoms of adverse reactions. Patient waited in clinic for 15 minutes after administration. lamoTRIgine (20 sources) Mood Stabilizer, Anti-epileptic Agent Start: 05-07-2018 End: 03-11-2020 LAMICTAL MISC 05/07/2018 - 03/11/2020 Provider: Start: 05-07-2018 End: 05-07-2018 LAMICTAL MISC 05/07/2018 - 0 05/07/2018 Provider: LamoTRIgine (REYES ICTAL PO) Take by mouth 0 Active loperamide hydrochloride 2 mg oral tablet (20 sources) Opioid Agonist Start: 08-01-2015 End: 03-11-2020 Imodium A-D 2 MG OR TABS 08/01/2015 - 03/11/2020 Provider: loratadine 10 mg oral tablet (20 sources) Start: 07-16-2021 End: 12-31-2022 Loratadine 10 MG Oral Tablet 11/30/2022 - 12/31/2022 Provider: Srinivasa Ward BIOLOGY ADJUNCT INSTRUCTOR Start: 07-04-2015 End: 03-11-2020 Claritin 10 MG OR TABS 09/08 - 03/11/2020 Provider: lurasidone hydrochloride 20 mg oral tablet (20 sources) Atypical Antipsychotic Start: 05-07-2018 End: 03-11-2020 Latuda 20 MG OR TABS 05/07/2018 - 03/11/2020 Provider: Conversion Provider meclizine hydrochloride 12.5 mg oral tablet (1 source) Antiemetic Start: 11-29-2019 End: 11-29-2019 meclizine (ANTIVERT) tablet 25 mg methylPREDNISolone 4 mg oral tablet (20 sources) Corticosteroid Start: 01-02-2021 End: 02-14-2021 Medrol 4 MG Oral Tablet Therapy Pack 01/02/2021 - 02/14/2021 Provider: Traci Dennison CNP metroNIDAZOLE 500 mg oral tablet (20 sources) Nitroimidazole Antimicrobial Start: 11-25-2022 End: 12-31-2022 metroNIDAZOLE 500 MG Oral Tablet 11/25/2022 - 12/31/2022 Provider: Start: 08-13-2021 End: 11-25-2021 metroNIDAZOLE 500 MG Oral Ta blet 08/13/2021 - 11/25/2021 Provider: Traci Dennison CNP Start: 04-07-2021 End: 04-17-2021 metroNIDAZOLE 500 MG Oral Ta blet 04/07/2021 - 04/17/2021 Provider: Traci Dennison CNP 1 ml morphine sulfate 2 mg/ml cartridge (1 source) Opioid Agonist Start: 06-01-2020 End: 06-01-2020 morphine (PF) injection 2 mg NEBULIZER MACHINE MISC (7 sources) Start: 07-04-2015 End: 07-04-2015 NEBULIZER MACHINE MISC 07/04/2015 - 07/04/2015 Provider: NEBULIZER MACHINE MISC (20 sources) Start: 07-04-2015 End: 03-11-2020 NEBULIZER MACHINE MISC 07/04/2015 - 03/11/2020 Provider: NEBULIZER TUBING MISC (7 sources) Start: 07-04-2015 End: 07-04-2015 NEBULIZER TUBING MISC 07/04/2015 - 07/04/2015 Provider: NEBULIZER TUBING MISC (20 sources) Start: 07-04-2015 End: 03-11-2020 NEBULIZER TUBING MISC 07/04/2015 - 03/11/2020 Provider: nitrofurantoin, macrocrystals 25 mg / nitrofurantoin, monohydrate 75 mg oral capsule (20 sources) Nitrofuran Antibacterial Start: 08-03-2022 End: 11-30-2022 Nitrofurantoin Monohyd Macro 100 MG Oral Capsule 08/03/2022 - 11/30/2022 Provider: Start: 12-11-2021 End: 01-22-2022 Macrobid 100 MG Oral Capsule 12/11/2021 - 01/22/2022 Provider: Srinivasa Ward CNP OLANZapine 10 mg oral tablet (20 sources) Atypical Antipsychotic Start: 04-03-2021 End: 03-27-2022 OLANZapine 10 MG Oral Tablet 07/17/2021 - 12/11/2021 Provider: Traci Dennison CNP End: 08-11-2021 OLANZAPINE PO Take by mouth 0 08/11/2021 Discontinued (LIST CLEANUP) omeprazole 40 mg delayed release oral capsule (20 sources) Proton Pump Inhibitor Start: 06-06-2021 End: 02-12-2022 Omeprazole 40 MG Oral Capsule Delayed Release 12/04/2021 - 02/12/2022 Provider: Start: 08-07-2016 End: 03-11-2020 Omeprazole 40 MG OR CPDR - 03/11/2020 Provider: oxymetazoline hydrochloride 0.5 mg/ml nasal spray (1 source) Start: 12-30-2018 End: 12-30-2018 oxymetazoline (AFRIN) 0.05 % nasal spray 1 spray PENICILLIN V POTASSIUM MISC (7 sources) Start: 05-07-2018 End: 05-07-2018 PENICILLIN V POTASSIUM MISC 05/07/2018 - 05/07/2018 Provider: PENICILLIN V POTASSIUM MISC (20 sources) Start: 05-07-2018 End: 03-11-2020 PENICILLIN V POTASSIUM MISC 05/07/2018 - 03/11/2020 Provider: phenazopyridine hydrochloride 200 mg oral tablet (12 sources) Start: 12-11-2021 End: 01-22-2022 Pyridium 200 MG Oral Tablet 12/11/2021 - 01/22/2022 Provider: Srinivasa Ward CNP prazosin 1 mg oral capsule (20 sources) alpha-Adrenergic Michelle Start: 06-01-2022 End: 11-30-2022 Prazosin HCl 1 MG Oral Capsule 06/29/2022 - 11/30/2022 Provider: predniSONE 20 mg oral tablet (20 sources) Start: 02-05-2023 End: 02-19-2023 predniSONE 20 MG Oral Tablet 02/05/2023 - 02/19/2023 Provider: Srinivasa Ward BIOLOGY ADJUNCT INSTRUCTOR Start: 08-01-2015 End: 03-11-2020 predniSONE 20 MG OR TABS - 03/11/2020 Provider: 50 ml sodium chloride 9 mg/m l injection (9 sources) Start: 06-07-2022 End: 06-08-2022 0.9 % sodium chloride bolus Start: 11-12-2021 End: 11-12-2021 0.9 % sodium chloride bolus Start: 08-11-2021 End: 08-11-2021 0.9 % sodium chloride bolus Start: 06-06-2021 End: 06-06-2021 0.9 % sodium chloride bolus Start: 02-07-2021 End: 02-07-2021 0.9 % sodium chloride bolus Start: 02-05-2021 End: 02-05-2021 0.9 % sodium chloride bolus Start: 09-04-2020 End: 09-04-2020 0.9 % sodium chloride bolus Start: 06-01-2020 End: 06-01-2020 0.9 % sodium chloride bolus Start: 11-29-2019 End: 11-29-2019 0.9 % sodium chloride bolus sulfamethoxazole 800 mg / trimethoprim 160 mg oral tablet (20 sources) Dihydrofolate Reductase Inhibitor Antibacterial, Sulfonamide Antimicrobial Start: 08-13-2021 End: 12-11-2021 Bactrim DS 800-160 MG Oral Tablet 11/25/2021 - 12/11/2021 Provider: Traci Dennison CNP Start: 04-03-2021 End: 04-15-2021 Bactrim DS 800-160 MG Oral T ablet 04/03/2021 - 04/15/2021 Provider: Traci Dennison CNP SYMBICORT 80-4.5 MCG/ACTUAT MISC (7 sources) Start: 07-04-2015 End: 07-04-2015 SYMBICORT 80-4.5 MCG/ACTUAT MISC 07/04/2015 - 07/04/2015 Provider: SYMBICORT 80-4.5 MCG/ACTUAT MISC (20 sources) Start: 07-04-2015 End: 03-11-2020 SYMBICORT 80-4.5 MCG/ACTUAT MISC 07/04/2015 - 03/11/2020 Provider: technetium sulfur colloid egg (NYCOMED-SC) solution 1 millicurie (1 source) Start: 12-22-2021 End: 12-22-2021 technetium sulfur colloid egg (NYCOMED-SC) solution 1 millicurie tinidazole 500 mg oral tablet (10 sources) Nitroimidazole Antimicrobial Start: 12-18-2021 End: 01-22-2022 Tinidazole 500 MG Oral Tablet 12/18/2021 - 01/22/2022 Provider: Srinivasa Ward CNP ubrogepant 50 mg oral tablet (8 sources) Start: 01-05-2023 End: 01-28-2023 Ubrelvy 50 MG Oral Tablet 01/05/2023 - 01/28/2023 Provider: Srinivasa Ward CNP vancomycin 125 mg oral capsule (10 sources) Glycopeptide Antibacterial Start: 12-23-2021 End: 01-22-2022 Vancomycin HCl 125 MG Oral Capsule 12/23/2021 - 01/22/2022 Provider: VENTOLIN HFA 90 MCG/ACTUAT MISC (14 sources) Start: 05-07-2018 End: 05-07-2018 VENTOLIN HFA 90 MCG/ACTUAT MISC 05/07/2018 - 05/07/2018 Provider: Start: 07-04-2015 End: 07-04-2015 VENTOLIN HFA 90 MCG/ACTUAT M ISC 07/04/2015 - 07/04/2015 Provider: VENTOLIN HFA 90 MCG/ACTUAT M ISC (20 sources) Start: 05-07-2018 End: 03-11-2020 VENTOLIN HFA 90 MCG/ACTUAT M ISC 05/07/2018 - 03/11/2020 Provider: Start: 07-04-2015 End: 03-11-2020 VENTOLIN HFA 90 MCG/ACTUAT M ISC 07/04/2015 - 03/11/2020 Provider: Problems Active Problems Problem Classification Problem Date Documented Da te Episodic/Chronic Abdominal hernia (1 source) Umbilical hernia without obstruction or gangrene; Translations: [Umbilical hernia without obstruction or gangrene] Onset: 01-28-2023 Episodic Abdominal pain (20 sources) Left lower quadrant pain; Translations: [Abdominal pain] Onset: 12-14-2019 12-14-2019 Episodic Anxiety disorders (20 sources) Generalized anxiety disorder; Translations: [Anxiety disorder] Onset: 12-25-2019 Chronic Asthma (20 sources) Uncomplicated mild persistent asthma; Translations: [Mild persistent asthma, uncomplicated] Onset: 11-30-2022 11-30-2022 Chronic Cardiac dysrhythmias (1 source) Palpitations; Translations: [Palpitations] Episodic Diverticulosis and diverticulitis (20 sources) Diverticular disease; Translations: [Diverticulosis of large intestine without perforation or abscess without bleeding] Onset: 05-22-2021 Chronic Epilepsy; convulsions (20 sources) Epilepsy; Translations: [Epilepsy, unspecified, not intractable, without status epilepticus] Onset: 04-03-2021 Chronic Epilepsy; convulsions (1 source) Seizure; Translations: [Seizure (HCC)] Episodic Fluid and electrolyte disorders (1 source) Hypokalemia; Translations: [Hypokalemia] Onset: 01-28-2023 Episodic Gastritis and duodenitis (20 sources) Chronic gastritis; Translations: [Unspecified chronic gastritis without bleeding] Onset: 05-22-2021 Chronic Immunizations and screening for infectious disease (20 sources) Contact with and (suspected) exposure to other viral communicable diseases; Translations: [Suspected disease caused by 2019-nCoV] Onset: 02-14-2021 Episodic Inflammatory diseases of female pelvic organs (1 source) Hydrosalpinx; Translations: [Hydrosalpinx] Chronic Inflammatory diseases of female pelvic organs (2 sources) Acute vaginitis; Translations: [Acute vaginitis] Onset: 02-06-2023 Episodic Intestinal infection (1 source) Viral gastroenteritis; Translations: [Viral gastroenteritis] Episodic Menstrual disorders (4 sources) Excessive and frequent menstruation with irregular cycle; Translations: [EXCESS AND FREQ MEN W/IRREG CYCLE] Onset: 08-05-2022 Chronic Mood disorders (20 sources) Mixed bipolar affective disorder, moderate; Translations: [Mixed bipolar I disorder] Onset: 12-25-2019 Resolved: 04-15-2021 Chronic Noninfectious gastroenteritis (1 source) Gastroenteritis; Translations: [Noninfective gastroenteritis and colitis, unspecified] Episodic Nonspecific chest pain (2 sources) Atypical chest pain; Translations: [Chest pain at rest] Episodic Nutritional deficiencies (5 sources) Vitamin D deficiency; Translations: [Unspecified vitamin D deficiency] Onset: 07-17-2021 Chronic Other aftercare (1 source) 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; Translations: [OTH DETENTION CURRENT DRUG THERAPY] Onset: 07-07-2022 Episodic Other ear and sense organ disorders (1 source) Infective otitis externa of left ear; Translations: [Other infective otitis externa, left ear] Episodic Other female genital disorders (1 source) Other specified noninflammatory disorders of cervix uteri; Translations: [OTH SPEC NONINFLAMM D/O CERV UTERI] Onset: 08-09-2022 Episodic Other gastrointestinal disorders (2 sources) Diarrhea; Translations: [Diarrhea, unspecified] Episodic Other injuries and conditions due to external causes (1 source) Injury of right wrist; Translations: [Unspecified injury of right wrist, hand and finger(s), initial encounter] Episodic Other injuries and conditions due to external causes (1 source) Injury of right shoulder; Translations: [Unspecified injury of right shoulder and upper arm, initial encounter] Episodic Other liver diseases (1 source) Fatty (change of) liver, not elsewhere classified; Translations: [Fatty (change of) liver, not elsewhere classified] Onset: 01-28-2023 Chronic Other nutritional; endocrine; and metabolic disorders (14 sources) Overweight; Translations: [Overweight] Onset: 12-25-2019 Chronic Other nutritional; endocrine; and metabolic disorders (20 sources) Finding of body mass index; Translations: [Body mass index (observable entity)] Onset: 01-22-2022 Chronic Other skin disorders (1 source) Folliculitis; Translations: [Follicular disorder, unspecified] Episodic Other upper respiratory disease (6 sources) Allergic rhinitis; Translations: [Allergic rhinitis, cause unspecified] Onset: 07-16-2021 Chronic Otitis media and related conditions (1 source) Acute non-suppurative otitis media - serous; Translations: [Acute serous otitis media, unspecified ear] Episodic Residual codes; unclassified (1 source) Noncompliance with treatment; Translations: [Noncompliance] Episodic Residual codes; unclassified (1 source) Acquired absence of other specified parts of digestive tract; Translations: [ACQ ABSENCE OTH PART DIGESTV TRACT] Onset: 07-07-2022 Episodic Schizophrenia and other psychotic disorders (20 sources) Paranoid schizophrenia; Translations: [Paranoid type schizophrenia, unspecified] Onset: 06-03-2020 Chronic Skin and subcutaneous tissue infections (1 source) Cellulitis of right foot; Translations: [Cellulitis of right foot] Sprains and strains (1 source) Low back strain; Translations: [Strain of lumbar region, initial encounter] Episodic Substance-related disorders (20 sources) Smoker; Translations: [Nicotine dependence, unspecified, uncomplicated] Onset: 11-27-2015 11-27-2015 Chronic Substance-related disorders (1 source) Marijuana user; Translations: [Marijuana use] Thyroid disorders (5 sources) Hypothyroidism; Translations: [Other specified hypothyroidism] Onset: 07-17-2021 Chronic Unclassified (2 sources) Letter for School/Work; Translations: [Letter for School/Work] Onset: 04-23-2022 Urinary tract infections (20 sources) Urinary tract infectious disease; Translations: [Urinary tract infection, site not specified] Onset: 04-03-2021 Episodic Past or Other Problems Problem Classification Problem Date Documented Da te Episodic/Chronic Bacterial infection; unspecified site (20 sources) Personal history of Methicillin resistant Staphylococcus aureus infection; Translations: [History of methicillin resistant Staphylococcus aureus infection] Onset: 11-27-2015 11-27-2015 Episodic Calculus of urinary tract (3 sources) Calculus of kidney; Translations: [Calculus of kidney] Onset: 04-17-2022 Episodic Disorders of teeth and jaw (3 sources) Infection of tooth; Translations: [Infection of Tooth] Onset: 01-26-2020 Episodic Fever of unknown origin (16 sources) Fever symptoms; Translations: [Fever, unspecified] Onset: 01-01-2021 Episodic Genitourinary symptoms and ill-defined conditions (5 sources) Dysuria; Translations: [Dysuria] Onset: 01-21-2022 01-22-2022 Episodic Hemorrhoids (17 sources) Hemorrhoids; Translations: [Hemorrhoids] Onset: 05-22-2021 05-22-2021 Episodic Mood disorders (2 sources) Bipolar I disorder, most recent episode depression; Translations: [Bipolar I Disorder, Most Recent Episode, Depressed] Onset: 06-03-2020 Nausea and vomiting (5 sources) Nausea and vomiting; Translations: [Nausea with vomiting, unspecified] Onset: 01-21-2022 Episodic Nutritional deficiencies (5 sources) Vitamin B12 deficiency (non anemic); Translations: [Other B-complex deficiencies] Onset: 07-17-2021 Episodic Other complications of (20 sources) Complication occurring during ; Translations: [Other specified related conditions, unspecified trimester] Onset: 12-03-2013 12-03-2013 Episodic Other gastrointestinal disorders (13 sources) Disorder of small intestine; Translations: [Unspecified disorder of intestine] Onset: 06-03-2020 Episodic Other gastrointestinal disorders (19 sources) Diarrhea, unspecified; Translations: [Diarrhea] Onset: 02-14-2021 Episodic Other infections; including parasitic (1 source) Personal history of other infectious and parasitic diseases; Translations: [PERSONAL HX OTH INF AND PARASITIC DZ] Onset: 01-21-2022 Episodic Other lower respiratory disease (1 source) Chest pain on breathing; Translations: [Chest pain on breathing] Episodic Other lower respiratory disease (16 sources) Cough; Translations: [Cough] Onset: 01-01-2021 Episodic Other non-traumatic joint disorders (2 sources) Shoulder pain; Translations: [Shoulder Pain] Onset: 04-23-2022 Episodic Other nutritional; endocrine; and metabolic disorders (20 sources) Finding of body mass index; Translations: [Body mass index (observable entity)] Onset: 06-03-2020 Episodic Other nutritional; endocrine; and metabolic disorders (11 sources) Overweight; Translations: [Overweight] Onset: 06-03-2020 Episodic Other screening for suspected conditions (not mental disorders or infectious disease) (20 sources) Encounter for screening for diabetes mellitus; Translations: [Diabetes Risk Test Score] Onset: 01-08-2020 Episodic Other upper respiratory infections (6 sources) Viral upper respiratory tract infection; Translations: [Upper respiratory infection] Onset: 07-17-2021 Episodic Residual codes; unclassified (1 source) Procedure and treatment not carried out due to patient leaving prior to being seen by health care provider; Translations: [PROC AND TX NOT CARRIED OUT PT LEAVE] Onset: 01-21-2022 Episodic Screening and history of mental health and substance abuse codes (1 source) Personal history of nicotine dependence; Translations: [PERSONAL HISTORY OF NICOTINE DEPEND] Onset: 01-22-2022 Episodic Unclassified (20 sources) Finding of body mass index; Translations: [Body mass index (observable entity)] Onset: 12-25-2019 Unclassified (20 sources) Exposure to Severe acute respiratory syndrome coronavirus 2 (event); Translations: [Exposure To Covid-19] Onset: 01-01-2021 Results Test Name Value Interpretation Reference Range Facility Vaginitis DNA Probeon 2022 Kayla Positive Abnormal NEG [facility] Comment on above: Result Comment: for Kayla sp. Method of testing is a DNA probe intended for detection and identification of Kayla species, Gardnerella vaginalis, and Trichomonas vaginalis nucleic acid in vaginal fluid specimens from patients with symptoms of vaginitis/vaginosis. Performed By: #### V AGP #### [facility] [address] [place] [id number] Automatic Pilot Mechanic: Juan Neumann MD Gardnerella Negative Normal NEG [facility] Comment on above: Result Comment: for Gardnerella vaginalis Performed By: #### V AGP #### [facility] [address] [place] [id number] Automatic Pilot Mechanic: Juan Neumann MD Trichomonas Negative Normal NEG [facility] Comment on above: Result Comment: for Trichomonas Vaginalis Performed By: #### V AGP #### [facility] [address] [place] [id number] Automatic Pilot Mechanic: Juan Neumann MD Vaginitis DNA Probeon 2022 Source .VAGINAL SWAB Normal [facility] Comment on above: Performed By: #### V AGP #### [facility] [address] [place] [id number] Automatic Pilot Mechanic: Juan Neumann MD No Panel Informationon 02-19 Kayla Positive Abnormal (NEG ) [facility] Comment on above: Note: for Kayla sp .Method of testing is a DNA probe intended for detection and identification ofCandida species, Gardnerella vaginalis, and Trichomonas vaginalis nucleic acidin vaginal fluid specimens from patients with symptoms of vaginitis/vaginosis.Responsible Observer: LETICIA MONTENEGRO ([id number]) Gardnerella Negative (NEG ) [facility] Comment on above: Note: for Gardnerell a vaginalisResponsible Observer: LETICIA MONTENEGRO ([id number]) Reported Physicians See Note [facility] Comment on above: Note: Reported Physi cians:Ordering: Srinivasa WardAttending: Cathryn WardieReferring: Srinivasa Ward Source .VAGINAL SWAB [facility] Comment on above: Note: Responsible Ob wrapper and preserver: [employer] ([id number]) Trichomonas Negative (NEG ) [facility] Comment on above: Note: for Trichomona s VaginalisResponsible Observer: LETICIA MONTENEGRO ([id number]) Cult,Urineon 02-06-2023 Cult,Urine Specimen Description .CLEAN CATCH URINE Culture NO SIGNIFICANT GROWTH Report Status FINAL 02/06/2023 Normal [facility] Comment on above: Performed By: #### U RC #### [facility] [address] [place] [id number] Automatic Pilot Mechanic: Juan Nemuann MD Vaginitis DNA Probeon 2022 Kayla Positive Abnormal NEG [facility] Comment on above: Result Comment: for Kayla sp. Method of testing is a DNA probe intended for detection and identification of Kayla species, Gardnerella vaginalis, and Trichomonas vaginalis nucleic acid in vaginal fluid specimens from patients with symptoms of vaginitis/vaginosis. Performed By: #### V AGP #### [place] [address] [place] [id number] Automatic Pilot Mechanic: Juan Neumann MD Gardnerella Negative Normal NEG [facility] Comment on above: Result Comment: for Gardnerella vaginalis Performed By: #### V AGP #### [place] [address] [place] [id number] Automatic Pilot Mechanic: Juan Neumann MD Trichomonas Negative Normal NEG [facility] Comment on above: Result Comment: for Trichomonas Vaginalis Performed By: #### V AGP #### [place] [address] [place] [address] [phone] Automatic Pilot Mechanic: Juan Neumann MD Source .VAGINAL SWAB Normal [facility] Comment on above: Performed By: #### V AGP #### [facility] [address] [place] [address] Automatic Pilot Mechanic: Juan Neumann MD Laboratory - Microbiology an d Antimicrobial susceptibilityon 02-05-2023 Bacteria identified Cx Nom (U) See Note [facility] Comment on above: Note: Specimen Descr iption .CLEAN CATCH URINECulture NO SIGNIFICANT GROWTHReport Status FINAL 02/06/2023Responsible Observer: SHERYL WEISS ([id number]) No Panel Informationon 02-05 Kayla Positive Abnormal (NEG ) [facility] Comment on above: Note: for Kayla sp .Method of testing is a DNA probe intended for detection and identification ofCandida species, Gardnerella vaginalis, and Trichomonas vaginalis nucleic acidin vaginal fluid specimens from patients with symptoms of vaginitis/vaginosis.Responsible Observer: NAWAF DENTON ([id number]) Gardnerella Negative (NEG ) [facility] Comment on above: Note: for Gardnerell a vaginalisResponsible Observer: NAWAF DENTON ([id number]) Reported Physicians See Note [facility] Comment on above: Note: Reported Physi cians:Ordering: Srinivasa WardAttending: Cathryn WardieReferring: Srinivasa Ward Source .VAGINAL SWAB [facility] Comment on above: Note: Responsible Ob wrapper and preserver: SHERYL WEISS ([id number]) Trichomonas Negative (NEG ) [facility] Comment on above: Note: for Trichomona s VaginalisResponsible Observer: NAWAF DENTON ([id number]) CT ABDOMEN PELVIS W IV CONTR Jorge Luis 01-30-2023 CT ABDOMEN PELVIS W IV CONTRAST EXAMINATION: CT OF THE ABDOMEN AND PELVIS WITH CONTRAST, 01/28/2023 2:12 pm TECHNIQUE: CT of the abdomen and pelvis was performed with the administration of intravenous contrast. Multiplanar reformatted images are provided for review. Automated exposure control, iterative reconstruction, and/or weight based adjustment of the mA/kV was utilized to reduce the radiation dose to as low as reasonably achievable. COMPARISON: 03/15/2022 HISTORY: ORDERING SYSTEM PROVIDED HISTORY: Right upper abdominal pain/ s/p cholecystectomy/hysterec gregg/hernia repair. TECHNOLOGIST PROVIDED HISTORY: Right upper abdominal pain/ s/p cholecystectomy/hysterec gregg/hernia repair. Decision Support Exception - unselect if not a suspected or confirmed emergency medical condition->Emergency Medical Condition (MA) FINDINGS: Lower Chest: No acute abnormality. Organs: Mild fatty liver but no focal abnormality. Status post cholecystectomy. Pancreas and spleen, adrenals, kidneys, aorta and IVC appear stable. GI/Bowel: No evidence of bowel obstruction or perforation. Normal appendix. No evidence of diverticulitis. Minimal diverticulosis. Pelvis: The urinary bladder appears unremarkable. Status post hysterectomy. No evidence of pelvic lymphadenopathy or other acute abnormality. Peritoneum/Retroperitone um: No evidence of retroperitoneal lymphadenopathy. Mild fat containing periumbilical hernia. Bones/Soft Tissues: No active disease. IMPRESSION: 1. Normal appendix and gastrointestinal tract. Minimal diverticulosis but no acute diverticulitis. 2. Status post cholecystectomy with no obvious complications. Mild fatty liver but no focal abnormality. 3. Mild fat containing periumbilical hernia without obvious complications. 4. No evidence of intra-abdominal or pelvic abscess, tumor or lymphadenopathy. Interpreted by: Nellie Kiran MD Signed by: Nellie Kiran MD 01/30/23 Final result Normal [facility] CBC with Diffon 01-28-2023 Abs. Basophil 0.05 k/uL Normal 0.00-0.20 [facility] Comment on above: Performed By: #### GENESIS Clark CP, CDP ####[address] [place], [place] [phone] Lab Director: Ernst Dillard MD Abs.Imm.Granulocyte 0.03 k/uL Normal 0.00-0.30 [facility] Comment on above: Performed By: #### GENESIS Clark CP, CDP ####[address] [place] [address] Lab Director: Ernst Dillard MD Abs.Neutrophil (Seg) 5.52 k/uL Normal 1.50-8.10 [facility] Comment on above: Performed By: #### GENESIS Clark CP, CDP ####[address] [place] [address] Lab Director: Ernst Dillard MD Basophils/100 WBC (Bld) 1 % Normal 0-2 M [facility] Comment on above: Performed By: #### M G, LIP, CP, CDP ####[address] , [place] [address] Lab Director: Ernst Dillard MD Eosinophils (Bld) [#/Vol] 0.13 10*3/uL Normal 0.00-0.44 [facility] Comment on above: Performed By: #### M G, LIP, CP, CDP ####[address] , [facility]83 Lab Director: Ernst Dillard MD Eosinophils/100 WBC (Bld) 2 % Normal 1-4 [facility] Comment on above: Performed By: #### M G, LIP, CP, CDP ####[address] , [place] [address])[phone] Director: Ernst Dillard MD Erythrocyte distribution width (RBC) [Ratio] 13.5 % Normal 11.8-14.4 [facility] Comment on above: Performed By: #### Kori Hollins, LIP, CP, CDP ####[address] , [place] [address] Lab Director: Ernst Dillard MD Hematocrit (Bld) [Volume fraction] 41.4 % Normal 36.3-47.1 [facility] Comment on above: Performed By: #### M G, LIP, CP, CDP ####[address] , [facility]83 Lab Director: Ernst Dillard MD Hemoglobin (Bld) [Mass/Vol] 13.5 g/dL Normal 11.9-15.1 [facility] Comment on above: Performed By: #### M G, LIP, CP, CDP ####[address] , [place] [id number] Lab Director: Ernst Dillard MD Immature granulocytes/100 WBC (Bld) 0 % Normal 0 [facility] Comment on above: Performed By: #### Kori Hollins, GENESIS, CP, CDP ####[address] , [place] [address])[phone] Director: Ernst Dillard MD Lymphocytes (Bld) [#/Vol] 2.27 10*3/uL Normal 1.10-3.70 [facility] Comment on above: Performed By: #### Kori Hollins, LIP, CP, CDP ####[address] , [place] [address])[phone] Director: Ernst Dillard MD Lymphocytes/100 WBC (Bld) 26 % Normal 24-43 [facility] Comment on above: Performed By: #### Kori Hollins, GENESIS, CP, CDP ####[address] , [place] [address])[phone] Director: Ernst Dillard MD MCH (RBC) [Entitic mass] 30.0 pg Normal 25.2-33.5 [facility] Comment on above: Performed By: #### GENESIS Clark, CP, CDP ####[address] , [place] [address])[phone] Director: Ernst Dillard MD MCHC (RBC) [Mass/Vol] 32.6 g/dL Normal 28.4-34.8 [facility] Comment on above: Performed By: #### Kori Hollins, GENESIS, CP, CDP ####[address] , [place] [address])[phone] Director: Ernst Dillard MD MCV (RBC) [Entitic vol] 92.0 fL Normal 82.6-102.9 [facility] Comment on above: Performed By: #### Kori Hollins, GENESIS, CP, CDP ####[address] , [facility]83 Lab Director: Ernst Dillard MD Monocytes (Bld) [#/Vol] 0.67 10*3/uL Normal 0.10-1.20 [facility] Comment on above: Performed By: #### Kori Hollins, GENESIS, CP, CDP ####[address] , [place] 1161683 Lab Director: Ernst Dillard MD Monocytes/100 WBC (Bld) 8 % Normal 3-12 M [facility] Comment on above: Performed By: #### M Gurvinder, LIP, CP, CDP ####[address] [place] [address] Lab Director: Ernst Dillard MD Neutrophil (Seg) 63 % Normal 36-65 [facility] Comment on above: Performed By: #### Kori Hollins, GENESIS, CP, CDP ####[address] [place] [address] Lab Director: Ernst Dillard MD NRBC Automated 0.0 per 100 WBC Normal 0.0 [facility] Comment on above: Performed By: #### GENESIS Clark, CP, CDP ####[address] , [place] [phone] Director: Ernst Dillard MD Platelet mean volume (Bld) [Entitic vol] 9.5 fL Normal 8.1-13.5 [facility] Comment on above: Performed By: #### GENESIS Clark, CP, CDP ####[address] , [place] [phone] Director: Ernst Dillard MD Platelets (Bld) [#/Vol] 270 10*3/uL Normal 138-453 [facility] Comment on above: Performed By: #### Kori Hollins, GENESIS, CP, CDP ####[address] [place] [address] Lab Director: Ernst Dillard MD RBC (Bld) [#/Vol] 4.50 10*6/uL Normal 3.95-5.11 [facility] Comment on above: Performed By: #### M Gurvinder, LIP, CP, CDP ####[address] , [place] 5003983 Lab Director: Ernst Dillard MD WBC (Bld) [#/Vol] 8.7 10*3/uL Normal 3.5-11.3 [facility] Comment on above: Performed By: #### M G, LIP, CP, CDP ####[address] , [place] 4861683 Lab Director: Ernst Dillard MD Comp Metabolic Profon 2022 Albumin [Mass/Vol] 4.1 g/dL Normal 3.5-5.2 [facility] Comment on above: Performed By: #### Kori Hollins, LIP, CP, CDP ####[address] , [place] 9984183 Lab Director: Ernst Dillard MD Albumin/Glob Ratio 1.5 Normal 1.0-2.5 [facility] Comment on above: Performed By: #### M Gurvinder, GENESIS, CP, CDP ####[address] , [place] 5378683 Lab Director: Ernst Dillard MD Alkaline Phos 63 U/L Normal 35-104 [facility] Comment on above: Performed By: #### M Gurvinder, LIP, CP, CDP ####[address] , [place] 73[address]83 Lab Director: Ernst Dillard MD ALT [Catalytic activity/Vol] 21 U/L Normal 5-33 [facility] Comment on above: Performed By: #### M G, LIP, CP, CDP ####[address] , [place] 5211783 Lab Director: Ernst Dillard MD Anion gap [Moles/Vol] 9 mmol/L Normal 9-17 [facility] Comment on above: Performed By: #### M G, LIP, CP, CDP ####[address] , [place] 4904483 Lab Director: Ernst Dillard MD AST [Catalytic activity/Vol] 14 U/L Normal <32 [facility] Comment on above: Performed By: #### M G, LIP, CP, CDP ####[address] , [place] 1042583 lab Director: Ernst Dillard MD Bilirubin [Mass/Vol] 0.2 mg/dL Low 0.3-1.2 [facility] Comment on above: Performed By: #### M G, LIP, CP, CDP ####[address] , [place] 5530683 lab Director: Ernst Dillard MD BUN/CRE Ratio 9 Normal 9-20 [facility] Comment on above: Performed By: #### M G, LIP, CP, CDP ####[address] , [place] 5591183 lab Director: Ernst Dillard MD Calcium [Mass/Vol] 8.9 mg/dL Normal 8.6-10.4 [facility] Comment on above: Performed By: #### M G, LIP, CP, CDP ####[address] , [place] 2392783 lab Director: Ernst Dillard MD Chloride [Moles/Vol] 106 mmol/L Normal 98-107 [facility] Comment on above: Performed By: #### M G, LIP, CP, CDP ####[address] , [place] 9570283 lab Director: Ernst Dillard MD CO2 [Moles/Vol] 26 mmol/L Normal 20-31 [facility] Comment on above: Performed By: #### M G, LIP, CP, CDP ####[address] , [place] 4465483 Lab Director: Ernst Dillard MD Creatinine [Mass/Vol] 0.8 mg/dL Normal 0.5-0.9 [facility] Comment on above: Performed By: #### M Gurvinder LIP, CP, CDP ####[address] , [place] 8693783 Lab Director: Ernst Dillard MD GFR/1.73 sq M.predicted among non-blacks MDRD (S/P/Bld) [Vol rate/Area] mL/min/{1.73_m2} Normal >60 [facility] Comment on above: Result Comment: These results are not intended for use in patients <18 years of age. eGFR results are calculated without a race factor using the 2020 CKD-EPI equation. Careful clinical correlation is recommended, particularly when comparing to results calculated using previous equations. The CKD-EPI equation is less accurate in patients with extremes of muscle mass, extra-renal metabolism of creatine, excessive creatine ingestion, or following therapy that affects renal tubular secretion. Performed By: #### M GENESIS Hollins CP, CDP ####[address] , [place] 5694483 Lab Director: Ernst Dillard MD Glucose [Mass/Vol] 91 mg/dL Normal 70-99 [facility] Comment on above: Performed By: #### M GENESIS Hollins CP, CDP ####[address] , [place] 0881683 Lab Director: Ernst Dillard MD Potassium [Moles/Vol] 3.6 mmol/L Low 3.7-5.3 [facility] Comment on above: Performed By: #### M GENESIS Hollins CP, CDP ####[address] , [place] [id number] Lab Director: Ernst Dillard MD Protein [Mass/Vol] 6.8 g/dL Normal 6.4-8.3 [facility] Comment on above: Performed By: #### M G, LIP, CP, CDP ####[facility] [place] , [place] 3276283 [facility] Director: Ernst Dillard MD Sodium [Moles/Vol] 141 mmol/L Normal 135-144 [facility] Comment on above: Performed By: #### M Gurvinder, GENESIS, CP, CDP ####[facility] [place] , [place] 1512283 [facility] Director: Ernst Dillard MD Urea nitrogen [Mass/Vol] 7 mg/dL Normal 6-20 [facility] Comment on above: Performed By: #### M Gurvinder, GENESIS, CP, CDP ####[facility] [place] , [place] 4195083 Lab Director: Ernst Dillard MD Lactic Acidon 01-28-2023 Lactate [Moles/Vol] 0.8 mmol/L Normal 0.5-2.2 [facility] Comment on above: Performed By: #### L ACTIC #### [facility] [address] [place], [place] 0916683 Automatic Pilot Mechanic: Ernst Dillard MD Lipaseon 01-28-2023 Lipase [Catalytic activity/Vol] 21 U/L Normal 13-60 [facility] Comment on above: Performed By: #### GENESIS Clark, CP, CDP ####[facility] [place] , [place] 4902483 [facility] Director: Ernst Dillard MD Magnesiumon 01-28-2023 Magnesium [Mass/Vol] 2.1 mg/dL Normal 1.6-2.6 [facility] Comment on above: Performed By: #### M Gurvinder, GENESIS, CP, CDP ####[facility] [place] , [place] [id number] Lab Director: Ernst Dillard MD Gastroenterology Office/Clin ic Noteon 12-30-2022 Gastroenterology Office/Clinic Note Chief Complaint Patient c/o reflux. History of Present Illness Patient had laparoscopic cholecystectomy April 02. Notes currently having acid reflux daily despite omeprazole 40 mg twice daily. Does note taking Zofran on occasion. Dicyclomine as needed. Does note pain at umbilicus. Notes previous umbilical hernia. Patient would like referral to surgery to discuss. Having bowel movements daily without difficulty. Denies hematemesis hematochezia or melena. OV 05/01/22 Patient is a 39-year-old female presents to GI clinic today for follow-up right upper quadrant pain, GERD, IBS. Patient had cholecystectomy 04/07/2022. Patient notes symptoms have greatly improved since cholecystectomy. Notes eating well. Having bowel movements daily. Does describe these as stool caliber 4-5 on the Dexter. Denies any current acid reflux or heartburn. Denies any nausea or vomiting. Denies any right upper quadrant pain. Continues to take omeprazole 40 mg twice daily. Did discuss with patient weaning down to once a day. Patient states still continues to take Bentyl daily. Also discussed weaning off of this with patient. Not currently taking cholestyramine. Denies any hematemesis hematochezia or melena. OV 02/12/22 Patient is a 31-year-old female presents to GI clinic today for follow-up CDF. Patient diagnosed with C. difficile 01/08 started on vancomycin. Patient notes still consistently having 5+ bowel movements daily. Does note these to be liquid. Does note these to be malodorous. Does not believe C. difficile is gone. Patient also notes having right upper quadrant pain. States this is consistently all the time. Notes that this is worse with eating and drinking. States that this radiates into her back. Patient did have ultrasound right upper quadrant showed no suspicious findings for pain. Did note a 4 mm stone within the mid body of cortex no hydronephrosis noted. Patient does note continually takes omeprazole 40 mg twice daily dicyclomine 10 mg 4 times daily and Zofran as needed. Patient does note these medications to help. OV 12/04/21 Patient is a 31-year-old female who presents to GI clinic today for follow-up appointment.Patient did miss appointment 06/23/2021. Last previous appointment 04/21/2021. Patient notes having diarrhea daily. States having multiple bowel movements. Notes having lower abdominal spasms and cramping. Notes nausea and vomiting have increasingly become worse over the last month. Notes nausea daily. States does not have appetite. Notes epigastric pain and acid reflux. Last office visit prescriptions for omeprazole dicyclomine and colestipol and Zofran given. Unsure if patient is currently taking as does not look like has been filled through external Rx history. Did discuss with patient medication regime. Will add amitriptyline. Follow-up 1 month. OV 04/21/21 Patient. EGD revealed esophagitis masses lesions ulcers pathology negative for celiac, mild chronic gastritis, minimal chronic inflammation in distal esophagus. Colonoscopy revealed diverticuli small hemorrhoids hypertrophic anal papillae. Patient states still having multiple soft to loose bowel movements daily. Does note lower abdominal pain states occasional epigastric pain and acid reflux. We will continue omeprazole 40 mg daily. Discussed taking Bentyl as needed for. Discussed increasing fiber in diet. Dietary modifications. Marijuana cessation encouraged. EGD 03/19/21 Impression and Plan Indication for EGD is dysphagia, dyspepsia, diarrhea. Examined mucosa of the esophagus was normal in the upper middle and distal region. GE junction located at 35 cm from the incisors. No erosive esophagitis, mass lesions, ulcers, rings/web/stricture/sten osis, varices. Random biopsies were obtained from the distal and proximal esophagus to rule out EOE. Examined mucosa of the stomach was normal in the region of fundus, body, antrum, pylorus except: Mucosal atrophy seen in distal gastric body and antrum. Retroflexion did not show a hiatal hernia. Random gastric biopsies were obtained to rule out H. pylori, intestinal metaplasia/dysplasia/mal ignancy. Examined mucosa of the duodenum was normal in the region of bulb, D1 and D2. Random biopsies were obtained to rule out celiac disease. Patient tolerated the procedure well without any complications. Recommendation: Await biopsy results. Treat for H. pylori if positive. Avoid NSAIDs. Continue PPI. Follow up in GI clinic for further recommendations. Proceed with same-day colonoscopy. [1] Colonoscopy 03/19/21 Impression and Plan Indication for colonoscopy is diarrhea, colon cancer screening. Examination completed till cecum and terminal ileum. Good bowel prep with the Warren bowel prep score of 7. IRENE negative for stenosis/stricture or palpable mass lesion. Examined mucosa of the terminal ileum, cecum, ascending colon, hepatic flexure, transverse colon, splenic flexure, descending colon, sigmoid colon, rectum was normal except: Diverticulosis in (more content not included)... Normal [facility] US PELVIS AND TRANSVAGon US PELVIS AND TRANSVAG EXAMINATION: US P FIONA AND TRANSVAG HISTORY: Excessive menstruation with irregular cycle COMPARISON: CT abdomen pelvis 07/03/2022 TECHNIQUE: Transabdominal and transvaginal sonographic examination. FINDINGS: UTERUS: 8 mm heterogeneous cyst within the anterior wall of cervix; no internal blood flow on color Doppler. Normal size, contour, and echotexture of uterus. Uterus size: 8.0 x 4.5 x 3.9 cm ENDOMETRIUM: Normal homogeneous appearance. Endometrial thickness: 8 mm RIGHT OVARY: Slightly complex 1.3 cm cyst within or adjacent to right ovary. Duplex Doppler demonstrates normal waveform and flow; resistive index 0.5. Ovary size: 2.5 x 2.0 x 2.0 cm LEFT OVARY: Normal size and appearance. Duplex Doppler demonstrates normal waveform and flow; resistive index 0.4. Ovary size: 2.7 x 2.1 x 2.3 cm CUL-DE-SAC: Unremarkable. No significant free fluid. BLADDER: Unremarkable. OTHER: None. IMPRESSION: 1. Complex nabothian cysts within cervix of questionable clinical significance. 2. Slightly complex right ovarian cyst. Consider follow-up in 6 weeks to document regression. Electronically authenticated by: KIRK SHANNON Date: 2022-08-06 06:54 Normal [facility] CBC AUTO DIFFon 08-05-2022 BASO # 0.1 103/ul Normal 0.0-0.1 [facility] Comment on above: Performed By: #### C BC ####[facility] [address] [place] [id number]. Senthil Menchaca Basophils/100 WBC (Bld) 0.3 % Normal 0.2-2.0 T [facility] Comment on above: Performed By: #### C BC ####[facility] [address] [place] [id number] Menchaca EO # 0.2 103/ul Normal 0.0-0.7 [facility] Comment on above: Performed By: #### C BC ####[facility] [address] [place], [place] [address]Dr. Senthil Menchaca Eosinophils/100 WBC (Bld) 0.8 % Critically low 0.9-7.0 [facility] Comment on above: Performed By: #### C BC ####[facility] [address] [place], [place] [address]Dr. Senthil Menchaca Erythrocyte distribution width (RBC) [Ratio] 13.5 % Normal 11.0-15.0 [facility] Comment on above: Performed By: #### C BC ####[facility] [address] [place], [place] [address]Dr. Senthil Menchaca Hematocrit (Bld) [Volume fraction] 42.8 % Normal 36.0-48.0 [facility] Comment on above: Performed By: #### C BC ####[facility] [address] [place], [place] [address]Dr. Senthil Menchaca Hemoglobin (Bld) [Mass/Vol] 14.0 g/dL Normal 12.0-16.0 [facility] Comment on above: Performed By: #### C BC ####[facility] [address] [place], [place] [address]Dr. Senthil Menchaca IG # 0.08 10e3/ul Critically high 0.00-0.03 [facility] Comment on above: Performed By: #### C BC ####[facility] [address] [place], [place] [address]Dr. Senthil Menchaca IG % 0.4 % Normal 0.0-0.5 [facility] Comment on above: Performed By: #### C BC ####[facility] [address] [place], [place] [address]Dr. Senthil Menchaca LYMPH # 2.0 103/ul Normal 1.2-3.8 [facility] Comment on above: Performed By: #### C BC ####[facility] [address] [place], [place] [address]Dr. Senthil Menchaca Lymphocytes/100 WBC (Bld) 11.0 % Critically low 20.5-60.0 [facility] Comment on above: Performed By: #### C BC ####[facility] [address] [place] [address]Dr. Senthil Menchaca MANUAL DIFF REQ NO Normal [facility] Comment on above: Performed By: #### C BC ####[facility] [address] [place] [address]Dr. Senthil Menchaca MCH (RBC) [Entitic mass] 30.1 pg Normal 26.7-34.0 [facility] Comment on above: Performed By: #### C BC ####[facility] [address] [place] [address]Dr. Senthil Menchaca MCHC (RBC) [Mass/Vol] 32.7 g/dL Normal 29.9-35.2 [facility] Comment on above: Performed By: #### C BC ####[facility] [address] [place] [address]Dr. Senthil Nikolai MCV (RBC) [Entitic vol] 92.0 fL Normal 81.0-99.0 [facility] Comment on above: Performed By: #### C BC ####[facility] [address] [place], [place] [address]Dr. Senthil Nikolai MONO # 0.9 103/ul Critically high 0.3-0.8 [facility] Comment on above: Performed By: #### C BC ####[facility] U[address] [place], [place] [address]Dr. Senthil Nikolai Monocytes/100 WBC (Bld) 4.9 % Normal 1.7-12.0 [facility] Comment on above: Performed By: #### C BC ####[facility] [address] [place] [address]Dr. Naomimikel Menchaca NEUT # 14.8 103/ul Critically high 1.4-6.5 [facility] Comment on above: Performed By: #### C BC ####[facility] Oxlquzj[address] [place], [place] [address]Dr. Senthil Menchaca Neutrophils/100 WBC (Bld) 82.6 % Critically high 43.0-75.0 [facility] Comment on above: Performed By: #### C BC ####[facility] [address] [place] [id number]. Senthil Menchaca Platelet mean volume (Bld) [Entitic vol] 9.2 fL Critically low 9.5-13.5 [facility] Comment on above: Performed By: #### C BC ####[facility] [address] [place] [id number]. Senthil Menchaca PLT 311 103/ul Normal 150-450 [facility] Comment on above: Performed By: #### C BC ####[facility] [address] [place] [id number]. Senthil Menchaca RBC 4.65 106/ul Normal 4.20-5.40 [facility] Comment on above: Performed By: #### C BC ####[facility] [address] [place] [id number]. Senthil Menchaca WBC 18.0 103/ul Critically high 4.0-11.0 [facility] Comment on above: Performed By: #### C BC ####[facility] [address] [place] [id number] Menchaca FREE T4on 08-05-2022 Free T4 [Mass/Vol] 0.92 ng/dL Normal 0.76-1.46 [facility] Comment on above: Performed By: #### F T4 #### [facility] [address] [place], [place] [address] Dr. Senthil Menchaca GLYCOHEMOGLOBIN A1Con 2022 ADA RECOMMENDATION SEE BELOW Normal [facility] Comment on above: Result Comment: ADA RECOMMENDED LIMIT 4.0 - 6.0 ADA THERAPEUTIC TARGET < 7.0 ACTION SUGGESTED > 7.0 Performed By: #### A 1C ####[facility] [address]wr[address] [place] [id number] Menchaca Glucose [Mass/Vol] 100 mg/dL Normal [facility] Comment on above: Performed By: #### A 1C ####[facility] [address] [place] [id number] Menchaca HbA1c (Bld) [Mass fraction] 5.1 % Normal 4.5-6.2 [facility] Comment on above: Performed By: #### A 1C ####[facility] [address] [place] [address]Dr. Senthil Menchaca PREG QUANT HCGon 08-05-2022 HCG QUANT <1 Normal [facility] Comment on above: Performed By: #### P REGQNT, TSH #### [facility] [address] [place] [address] Dr. Senthil Menchaca HCG RANGE SEE BELOW Normal [facility] Comment on above: Result Comment: 5-50 0.2-1 WEEK 50-500 1-2 WEEKS 100-5,000 2-3 WEEKS 500-10,000 3-4 WEEKS 1,000-50,000 4-5 WEEKS 10,000-100,000 5-6 WEEKS 15,000-200,000 6-8 WEEKS 10,000-100,000 2-3 MONTHS Performed By: #### P REGQNT, TSH #### [facility] [address] [place] [address] Dr. Senthil Menchaca PROTIMEon 08-05-2022 INR Coag (PPP) [Relative time] 1.01 {INR} Normal [facility] Comment on above: Performed By: #### P TT, PT ####[facility] [address] [place], [place] [address]DrTonya Menchaca INR GUIDELINES SEE BELOW Normal [facility] Comment on above: Result Comment: BAYLEE RED INR: 2.0 - 3.0 CONDITIONS NOT LISTED BELOW 2.5 - 3.5 FOR PROSTHETIC HEART VALVE REPLACEMENT 2.5 - 3.5 RECURRENT THROMBOSIS Performed By: #### P TT, PT ####[facility] Co[address] [place], [place] [address]Dr. Senthil Menchaca PT Coag (PPP) [Time] 10.7 s Normal 9.0-11.6 [facility] Comment on above: Performed By: #### P TT, PT ####[facility] [address] [place], [place] [address]Dr. Senthil Menchaca PTTon 08-05-2022 aPTT Coag (Bld) [Time] 26.6 s Normal 22.3-36.2 [facility] Comment on above: Performed By: #### P TT, PT ####[facility] [address] [place] [address]Dr. Senthil Menchaca TSHon 08-05-2022 TSH 0.486 uIU/mL Normal 0.358-3.74 0 [facility] Comment on above: Performed By: #### P REGQNT, TSH #### [facility] [address] [place] [address] Dr. Senthil Menchaca CBC AUTO DIFFon 07-03-2022 BASO # 0.1 103/ul Normal 0.0-0.1 [facility] Comment on above: Performed By: #### C BC #### [facility] [address] [place] [address] Dr. Senthil Menchaca Basophils/100 WBC (Bld) 0.9 % Normal 0.2-2.0 [facility] Comment on above: Performed By: #### C BC #### [facility] [address] [place] [address] Dr. Senthil Menchaca EO # 0.2 103/ul Normal 0.0-0.7 [facility] Comment on above: Performed By: #### C BC #### [facility] [address] [place] [address] Dr. Senthil Menchaca Eosinophils/100 WBC (Bld) 2.0 % Normal 0.9-7.0 [facility] Comment on above: Performed By: #### C BC #### [facility] [address] [place] [address] Dr. Senthil Menchaca Erythrocyte distribution width (RBC) [Ratio] 13.8 % Normal 11.0-15.0 [facility] Comment on above: Performed By: #### C BC #### [facility] [address] [place] [address] Dr. Senthil Menchaca Hematocrit (Bld) [Volume fraction] 44.2 % Normal 36.0-48.0 [facility] Comment on above: Performed By: #### C BC #### [facility] [address] [place] [address] Dr. Senthil Menchaca Hemoglobin (Bld) [Mass/Vol] 14.4 g/dL Normal 12.0-16.0 [facility] Comment on above: Performed By: #### C BC #### [facility] [address] [place] [address] Dr. Senthil Menchaca IG # 0.03 10e3/ul Normal 0.00-0.03 [facility] Comment on above: Performed By: #### C BC #### [facility] [address] [place] [address] Dr. Senthil Menchaca IG % 0.3 % Normal 0.0-0.5 [facility] Comment on above: Performed By: #### C BC #### [facility] [address] [place] [address] Dr. Senthil Menchaca LYMPH # 2.8 103/ul Normal 1.2-3.8 [facility] Comment on above: Performed By: #### C BC #### [facility] [address] [place] [address] Dr. Senthil Menchaca Lymphocytes/100 WBC (Bld) 27.5 % Normal 20.5-60.0 [facility] Comment on above: Performed By: #### C BC #### [facility] [address] [place] [address] Dr. Senthil Menchaca MANUAL DIFF REQ NO Normal [facility] [place] Comment on above: Performed By: #### C BC #### [facility] [address] [place] [address] Dr. Senthil Menchaca MCH (RBC) [Entitic mass] 29.8 pg Normal 26.7-34.0 [facility] Comment on above: Performed By: #### C BC #### [facility] [address] [place] [address] Dr. Senthil Menchaca MCHC (RBC) [Mass/Vol] 32.6 g/dL Normal 29.9-35.2 [facility] Comment on above: Performed By: #### C BC #### [facility] [address] [place] [address] Dr. Senthil Menchaca MCV (RBC) [Entitic vol] 91.5 fL Normal 81.0-99.0 [facility] Comment on above: Performed By: #### C BC #### [facility] [address] [place] [address] Dr. Senthil Menchaca MONO # 1.1 103/ul Critically high 0.3-0.8 [facility] [place] Comment on above: Performed By: #### C BC #### [facility] [address] [place] [address] Dr. Senthil Menchaca Monocytes/100 WBC (Bld) 11.2 % Normal 1.7-12.0 [facility] Comment on above: Performed By: #### C BC #### [facility] [address] [place] [address] Dr. Senthil Menchaca NEUT # 6.0 103/ul Normal 1.4-6.5 [facility] Comment on above: Performed By: #### C BC #### [facility] [address] [place] [address] Dr. Senthil Menchaca Neutrophils/100 WBC (Bld) 58.1 % Normal 43.0-75.0 [facility] Comment on above: Performed By: #### C BC #### [facility] [address] [place] [address] Dr. Senthil Menchaca Platelet mean volume (Bld) [Entitic vol] 9.2 fL Critically low 9.5-13.5 [facility] Comment on above: Performed By: #### C BC #### [facility] [address] [place] [address] Dr. Senthil Menchaca PLT 324 103/ul Normal 150-450 [facility] Comment on above: Performed By: #### C BC #### [facility] [address] [place] [address] Dr. Senthil Menchaca RBC 4.83 106/ul Normal 4.20-5.40 [facility] Comment on above: Performed By: #### C BC #### [facility] [address] [place] [address] Dr. Senthil Menchaca WBC 10.2 103/ul Normal 4.0-11.0 [facility] Comment on above: Performed By: #### C BC #### [facility] [address] [place] [address] [address] ABD/PELV W CONon 07-04-[address] ABD/PELV W CON EXAMINATION: CT ABD/ PELV W CON HISTORY: NAUSEA WITH VOMITING, UNSPECIFIED COMPARISON: 02/27/2010. TECHNIQUE: Enhanced helical acquisition obtained through the abdomen and the pelvis. Dose reduction techniques were achieved by using automated exposure control and/or adjustment of mA and/or kV according to patient size and/or use of iterative reconstruction technique. FINDINGS: The visualized lung bases and pleural spaces are clear. A 4 mm low-attenuation focus within hepatic segment 7, too small to accurately characterize. Prior cholecystectomy. The spleen, pancreas, adrenal glands and the kidneys are unremarkable. No enlarged lymph nodes within the abdomen or the pelvis. No enlarged lymph nodes within the pelvis. Involuting 1.6 cm left ovarian cyst. A 1.8 cm right ovarian cyst is present. Bilateral tubal ligation clips. IMPRESSION: 1. Normal appendix. No inflammatory changes within the abdomen or the pelvis. 2. Prior cholecystectomy. Subcentimeter low-attenuation focus within the right hepatic lobe, too small to accurately characterize, likely an underlying cyst or hemangioma. 3. Bilateral adnexal cysts, likely prominent follicles. Electronically authenticated by: LORRIE CESPEDES Date: 2022-07-03 18:01 Normal [facility] ER URINE PROFILEon 3 Bilirubin Ql (U) Negative Normal NEGATIVE [facility] Comment on above: Performed By: #### P CYNTHIA ROGERS UMICRO #### [facility] [address] [place] [address] Dr. Senthil Menchaca Clarity (U) CLEAR Normal CLEAR [facility] Comment on above: Performed By: #### P CYNTHIA ROGERS UMICRO #### [facility] [address] [place] [address] [address] Senthil Menchaca Color (U) LT. YELLOW Normal YELLOW [facility] Comment on above: Performed By: #### P CYNTHIA ROGERS UMICRO #### [facility] [address] [place] [address] Dr. Senthil SHIPLEY A micrscopic examina tion will be performed if indicated. Normal [facility] Comment on above: Performed By: #### P REGU, ERUR, UMICRO #### [facility] [address] [place] [address] Dr. Senthil Menchaca Glucose Ql (U) Negative Normal NEGATIVE [facility] Comment on above: Performed By: #### P REGU, ERUR, UMICRO #### [facility] [address] [place] [address] [address] Senthil Menchaca Hemoglobin Ql (U) TRACE-INTACT Abnormal NEGATIVE [facility] Comment on above: Performed By: #### P REGU, ERUR, UMICRO #### [facility] [address] [place] [address] Dr. Senthil Menchaca Ketones Ql (U) Negative Normal NEGATIVE [facility] Comment on above: Performed By: #### P REGU, ERUR, UMICRO #### [facility] [address] [place] [address] Dr. Senthil Menchaca LEUKOCYTES Negative Normal NEGATIVE [facility] Comment on above: Performed By: #### P REGU, ERUR, UMICRO #### [facility] [address] [place] [address] Dr. Senthil Menchaca Nitrite Ql (U) Negative Normal NEGATIVE [facility] Comment on above: Performed By: #### P REGU, ERUR, UMICRO #### [facility] [address] [address] [address] Senthil Menchaca pH (U) 7.0 [pH] Normal 5-9 [facility] Comment on above: Performed By: #### P REGU, ERUR, UMICRO #### [facility] [address] [place] [address] Dr. Senthil Menchaca SPEC GRAVITY 1.010 Normal 1.005-<=1. 025 [facility] Comment on above: Performed By: #### P REGU, ERUR, UMICRO #### [facility] [address] [place] [address] [address] Senthil Menchaca UA PROTEIN Negative Normal NEGATIVE/ TRACE [facility] Comment on above: Performed By: #### P REGURACHIDR, UMICRO #### [facility] [address] [place] [address] [address] Senthil Menchaca UR MICRO IND INDICATED Normal [facility] Comment on above: Performed By: #### P REGU ERUR, UMICRO #### [facility] [address] [place] [address] [address] Senthil Menchaca Urobilinogen Qn (U) 0.2 {Sherley'U}/dL Normal 0.2 - 1. 0 [facility] Comment on above: Performed By: #### P REGURACHIDR UMICRO #### [facility] [address] [place] [address] Dr. Senthil Menchaca URon 07-03-2022 , QUAL Negative Normal NEGATIVE [facility] Comment on above: Performed By: #### P REGURACHIDR, UMICRO #### [facility] [address] [place] [address] [address] Senthil Menchaca PROF 14(COMP METB)on 023 Albumin [Mass/Vol] 4.3 g/dL Normal 3.4-5.0 [facility] Comment on above: Performed By: #### C MP ####[facility] [address] [place] [address]DrTonya Menchaca Albumin/Globulin [Mass ratio] 1.3 {ratio} Normal [facility] Comment on above: Performed By: #### C MP ####[facility] [address] [place] [address]DrTonya Menchaca ALP [Catalytic activity/Vol] 84 U/L Normal 46-116 [facility] Comment on above: Performed By: #### C MP ####[facility] [address] [place] [address]DrTonya Menchaca ALT [Catalytic activity/Vol] 23 U/L Normal 14-59 [facility] Comment on above: Performed By: #### C MP ####[facility] [address] [place] [id number]. Senthil Menchaca Anion gap [Moles/Vol] 12.0 mmol/L Normal [facility] Comment on above: Performed By: #### C MP ####[facility] [address] [place] [address]Dr. Senthil Menchaca AST [Catalytic activity/Vol] 15 U/L Normal 15-37 [facility] Comment on above: Performed By: #### C MP ####[facility] [address] [place] [address]Dr. Senthil Menchaca Bilirubin [Mass/Vol] 0.3 mg/dL Normal 0.2-1.0 [facility] Comment on above: Performed By: #### C MP ####[facility] [address] [place] [address]Dr. Senthil Menchaca Calcium [Mass/Vol] 8.7 mg/dL Normal 8.5-10.1 [facility] Comment on above: Performed By: #### C MP ####[facility] [address] [place], [place] [address]Dr. Senthil Nikolai Chloride [Moles/Vol] 103 mmol/L Normal 98-107 [facility] Comment on above: Performed By: #### C MP ####[facility] [address] [place], [place] [address]Dr. Senthil Nikolai CO2 [Moles/Vol] 27.6 mmol/L Normal 21.0-32.0 [facility] Comment on above: Performed By: #### C MP ####[facility] [address] [place] [address]Dr. Senthil Nikolai Creatinine [Mass/Vol] 0.78 mg/dL Normal 0.55-1.02 [facility] Comment on above: Performed By: #### C MP ####[facility] [address] [place], [place] [address]Dr. Naomimikel Nikolai EGFR-AF BELARUSIAN >60 Normal >=60 [facility] Comment on above: Performed By: #### C MP ####[facility] [address] [place], [place] [address]Dr. Senthil Menchaca EGFR-NON AF BELARUSIAN >60 Normal >=60 [facility] Comment on above: Performed By: #### C MP ####[facility] [address] [place] [address]Dr. Senthil Menchaca Globulin (S) [Mass/Vol] 3.3 g/dL Normal T [facility] Comment on above: Performed By: #### C MP ####[facility] [address] [place], [place] [address]Dr. Senthil Menchaca Glucose [Mass/Vol] 86 mg/dL Normal 74-106 [facility] Comment on above: Performed By: #### C MP ####[facility] [address] [place], [place] [address]Dr. Senthil Menchaca Potassium [Moles/Vol] 3.6 mmol/L Normal 3.5-5.1 [facility] Comment on above: Performed By: #### C MP ####[facility] [address] [place], [place] [address]Dr. Senthil Menchaca Protein [Mass/Vol] 7.6 g/dL Normal 6.4-8.2 [facility] Comment on above: Performed By: #### C MP ####[facility] [address] [place], [place] [address]Dr. Senthil Menchaca Sodium [Moles/Vol] 139 mmol/L Normal 136-145 [facility] Comment on above: Performed By: #### C MP ####[facility] [address]ild[address]et[address] [place], [place] [address]Dr. Senthil Menchaca Urea nitrogen [Mass/Vol] 8.0 mg/dL Normal 7.0-18.0 [facility] Comment on above: Performed By: #### C MP ####[facility] [address]ib[address] [place], [place] [address]Dr. Senthil Menchaca Urea nitrogen/Creatinine [Mass ratio] 10.3 mg/mg Normal [facility] Comment on above: Performed By: #### C MP ####[facility] [address] [place], [place] [address]Dr. Senthil Menchaca URINE MICROSCOPIC ONLYon BACTERIA TRACE Abnormal NONE SEEN [facility] Comment on above: Performed By: #### P REGU ERUR UMICRO ####[facility] [address] [place] [address]Dr. Senthil Menchaca Bacteria identified Cx Nom (U) NOT INDICATED Normal [facility] Comment on above: Performed By: #### P REGU, ERUR UMICRO ####[facility] [address] [place] [address]Dr. Senthil Menchaca CAST NONE SEEN Normal NONE SEEN [facility] Comment on above: Performed By: #### P REGU ERUR UMICRO ####[facility] [address] [place] [address]Dr. Senthil Menchaca Crystals LM Nom (Urine sed) NONE SEEN Normal NONE SEEN [facility] Comment on above: Performed By: #### P REGAlban ERUR UMICRO ####[facility] [address] [place] [address]Dr. Senthil Menchaca Epithelial cells LM Ql (Urine sed) FEW Abnormal NONE SEEN /RARE [facility] Comment on above: Performed By: #### P REGRACHID PhoenixR, UMICRO ####[facility] [address] [place], [place] [address]Dr. Senthil Menchaca MUCOUS NONE SEEN Normal NONE SEEN [facility] Comment on above: Performed By: #### P REGU ERUR UMICRO ####[facility] [address] [place] [address]Dr. Senthil Menchaca RBC 2-5 Abnormal 0-2 [facility] Comment on above: Performed By: #### P REGU, ERUR, UMICRO ####[facility] [address] [place] [address]Dr. Senthil Menchaca WBC 0-2 Abnormal NONE SEEN [facility] Comment on above: Performed By: #### P REGU, ERUR, UMICRO ####[facility] [address] [place] [address]Dr. Senthil Menchaca CBCon 06-08-2022 Erythrocyte distribution width (RBC) [Ratio] 13.6 % Normal 11.8-14.4 [facility] Comment on above: Performed By: #### L IP, HCG, CBC, CP #### [address] [place], [place] [id number] [employer]: Ernst Dillard MD Hematocrit (Bld) [Volume fraction] 39.0 % Normal 36.3-47.1 [facility] Comment on above: Performed By: #### L IP, HCG, CBC, CP #### [address] [place], [place] [id number] [employer]ic: Ernst Dillard MD Hemoglobin (Bld) [Mass/Vol] 13.2 g/dL Normal 11.9-15.1 [facility] Comment on above: Performed By: #### L IP, HCG, CBC, CP #### [address] [place], [place] [id number] [employer] Mechanic: Ernst Dillard MD MCH (RBC) [Entitic mass] 31.4 pg Normal 25.2-33.5 [facility] Comment on above: Performed By: #### L IP, HCG, CBC, CP #### [address] [place] [address] [employer] Mechanic: Ernst Dillard MD MCHC (RBC) [Mass/Vol] 33.8 g/dL Normal 28.4-34.8 [facility] Comment on above: Performed By: #### L IP, HCG, CBC, CP #### [address] [place] [address] [employer] Mechanic: Ernst Dillard MD MCV (RBC) [Entitic vol] 92.6 fL Normal 82.6-102.9 [facility] Comment on above: Performed By: #### L IP, HCG, CBC, CP #### [address] [place] [address] [employer] Mechanic: Ernst Dillard MD NRBC Automated 0.0 per 100 WBC Normal 0.0 [facility] Comment on above: Performed By: #### L IP, HCG, CBC, CP #### [address] [place] [address] [employer]ic: Ernst Dillard MD Platelet mean volume (Bld) [Entitic vol] 9.1 fL Normal 8.1-13.5 [facility] Comment on above: Performed By: #### L IP, HCG, CBC, CP #### [address] [place] [address] [employer]ic: Ernst Dillard MD Platelets (Bld) [#/Vol] 264 10*3/uL Normal 138-453 [facility] Comment on above: Performed By: #### L IP, HCG, CBC, CP #### [address] [place], [facility]83 [employer] Mechanic: Ernst Dillard MD RBC (Bld) [#/Vol] 4.21 10*6/uL Normal 3.95-5.11 [facility] Comment on above: Performed By: #### L IP, HCG, CBC, CP #### [address] [place], [facility]83 [employer]ic: Ernst Dillard MD WBC (Bld) [#/Vol] 11.1 10*3/uL Normal 3.5-11.3 [facility] Comment on above: Performed By: #### L IP, HCG, CBC, CP #### [address] [place] [address] [employer]ic: Ernst Dillard MD Comp Metabolic Profon 2022 Albumin [Mass/Vol] 4.2 g/dL Normal 3.5-5.2 [facility] Comment on above: Performed By: #### L IP, HCG, CBC, CP #### [address] [place], [place] [id number] [employer]ic: Ernst Dillard MD Albumin/Glob Ratio 1.6 Normal 1.0-2.5 [facility] Comment on above: Performed By: #### L IP, HCG, CBC, CP #### [facility] [address] [place] [address] Dr. [place] [id number] Automatic Pilot Mechanic: Ernst Dillard MD Alkaline Phos 68 U/L Normal 35-104 [facility] Comment on above: Performed By: #### L IP, HCG, CBC, CP #### [address] [place], [place] [id number] Automatic Pilot Mechanic: Ernst Dillard MD ALT [Catalytic activity/Vol] 20 U/L Normal 5-33 [facility] Comment on above: Performed By: #### L IP, HCG, CBC, CP #### [address] [place], [place] [id number] Automatic Pilot Mechanic: Ernst Dillard MD Anion gap [Moles/Vol] 9 mmol/L Normal 9-17 [facility] Comment on above: Performed By: #### L IP, HCG, CBC, CP #### [address] [place], [place] [id number] Automatic Pilot Mechanic: Ernst Dillard MD AST [Catalytic activity/Vol] 14 U/L Normal <32 [facility] Comment on above: Performed By: #### L IP, HCG, CBC, CP #### [facility] [address] [place] [address] [address] [place], [place] [id number] Automatic Pilot Mechanic: Ernst Dillard MD Bilirubin [Mass/Vol] 0.2 mg/dL Low 0.3-1.2 [facility] Comment on above: Performed By: #### L IP, HCG, CBC, CP #### [facility] [address] [place] [address] [place], [place] [address] Automatic Pilot Mechanic: Ernst Dillard MD BUN/CRE Ratio 12 Normal 9-20 [facility] Comment on above: Performed By: #### L IP, HCG, CBC, CP #### [facility] [address] [place] [address] Automatic Pilot Mechanic: Ernst Dillard MD Calcium [Mass/Vol] 9.1 mg/dL Normal 8.6-10.4 [facility] Comment on above: Performed By: #### L IP, HCG, CBC, CP #### [facility] [address] [place] [address] Automatic Pilot Mechanic: Ernst Dillard MD Chloride [Moles/Vol] 103 mmol/L Normal 98-107 [facility] Comment on above: Performed By: #### L IP, HCG, CBC, CP #### [facility] [address] [place] [address] Automatic Pilot Mechanic: Ernst Dillard MD CO2 [Moles/Vol] 28 mmol/L Normal 20-31 [facility] Comment on above: Performed By: #### L IP, HCG, CBC, CP #### [facility] [address] [place] [address] [place], [place] [address] Automatic Pilot Mechanic: Ernst Dillard MD Creatinine [Mass/Vol] 0.75 mg/dL Normal 0.50-0.90 [facility] Comment on above: Performed By: #### L IP, HCG, CBC, CP #### [facility] [address] [place] [address] Automatic Pilot Mechanic: Ernst Dillard MD GFR/1.73 sq M.predicted among non-blacks MDRD (S/P/Bld) [Vol rate/Area] mL/min/{1.73_m2} Normal >60 [facility] Comment on above: Result Comment: These results are not intended for use in patients <18 years of age. eGFR results are calculated without a race factor using the 2020 CKD-EPI equation. Careful clinical correlation is recommended, particularly when comparing to results calculated using previous equations. The CKD-EPI equation is less accurate in patients with extremes of muscle mass, extra-renal metabolism of creatine, excessive creatine ingestion, or following therapy that affects renal tubular secretion. Performed By: #### L IP, HCG, CBC, CP #### [facility] [address] [place] [address] [address] [place], [place] [id number] Automatic Pilot Mechanic: Ernst Dillard MD Glucose [Mass/Vol] 79 mg/dL Normal 70-99 [facility] Comment on above: Performed By: #### L IP, HCG, CBC, CP #### [facility] [address] [place] [address] [address] [place], [place] [id number] Automatic Pilot Mechanic: Ernst Dillard MD Potassium [Moles/Vol] 4.0 mmol/L Normal 3.7-5.3 [facility] Comment on above: Performed By: #### L IP, HCG, CBC, CP #### [address] [place], [place] [id number] Automatic Pilot Mechanic: Ernst Dillard MD Protein [Mass/Vol] 6.8 g/dL Normal 6.4-8.3 [facility] Comment on above: Performed By: #### L IP, HCG, CBC, CP #### [address] [place], [place] [id number] Automatic Pilot Mechanic: Ernst Dillard MD Sodium [Moles/Vol] 140 mmol/L Normal 135-144 [facility] Comment on above: Performed By: #### L IP, HCG, CBC, CP #### [facility] [address] [place] [address] [address]. [place], [place] [id number] Automatic Pilot Mechanic: Ernst Dillard MD Urea nitrogen [Mass/Vol] 9 mg/dL Normal 6-20 [facility] Comment on above: Performed By: #### L IP, HCG, CBC, CP #### [address] [place], [place] [id number] Automatic Pilot Mechanic: Ernst Dillard MD HCG Screen, Bloodon 02-27-20 23 HCG Screen, Blood Negative Normal NEG [facility] Comment on above: Result Comment: Spec imens with hCG levels near the threshold of the test (25 mIU/mL) may give a negative or indeterminate result. In such cases, another test should be performed with a new specimen in 48-72 hours. If early is suspected clinically in this setting, correlation with quantitative serum b-hCG level is suggested. [facility] has confirmed the use of plasma for this test. This has not been cleared or approved by the U.S. Food and Drug Administration. The FDA has determined that such clearance is not necessary. Performed By: #### L IP, HCG, CBC, CP #### [facility] [address] [place] [address] Automatic Pilot Mechanic: Ernst Dillard MD Lipaseon 06-08-2022 Lipase [Catalytic activity/Vol] 22 U/L Normal 13-60 [facility] Comment on above: Performed By: #### L IP, HCG, CBC, CP #### [facility] [address] [place] [address] Automatic Pilot Mechanic: Ernst Dillard MD Microscopic Urinalysison Bacteria, UA 1+ Abnormal None [facility] Epithelial Cells UA 0 TO 2 [facility] Interpretation and review of laboratory results Abnormal [facility] RBC clumps Auto (Urine sed) [#/Area] 0 TO 2 [facility] WBC, UA 0 TO 2 [facility] UA w/Reflex Cultureon 2022 Bilirubin, SemiQt,Ur Negative Normal NEG [facility] Comment on above: Performed By: #### U MICAO, UAX #### [facility] [address] [place] [address] Automatic Pilot Mechanic: Ernst Dillard MD Blood, Urine Negative Normal NEG [facility] Comment on above: Performed By: #### U MICAO, UAX #### [facility] [address] [place] [address] Automatic Pilot Mechanic: Ernst Dillard MD Clarity (U) Clear Normal CLEAR [facility] Comment on above: Performed By: #### U MICAO, UAX #### [facility] [address] [place], [place] 1988783 Automatic Pilot Mechanic: Ernst Dillard MD Color (U) Yellow Normal YEL [facility] Comment on above: Performed By: #### U MICAO, UAX #### [facility] [address] [place], [place] [id number] Automatic Pilot Mechanic: Ernst Dillard MD Glucose Ql (U) Negative Normal NEG [facility] Comment on above: Performed By: #### U MICAO, UAX #### [facility] [address] [place], [place] [id number] Automatic Pilot Mechanic: Ernst Dillard MD Ketones Ql (U) Negative Normal NEG [facility] Comment on above: Performed By: #### U MICAO, UAX #### [facility] [address] [place], [place] [id number] Automatic Pilot Mechanic: Ernst Dillard MD Leukocyte esterase Test strip Ql (U) Negative Normal NEG [facility] Comment on above: Performed By: #### U MICAO, UAX #### [facility] [address] [place] [address] [address]. [place], [place] [phone] Automatic Pilot Mechanic: Ernst Dillard MD Nitrite,Ur Negative Normal NEG [facility] Comment on above: Performed By: #### U MICAO, UAX #### [facility] [address] [place], [place] [id number] Automatic Pilot Mechanic: Ernst Dillard MD PH,Ur 6.0 Normal 5.0-9.0 [facility] Comment on above: Performed By: #### U MICAO, UAX #### [facility] [address] [place], [place] [id number] Automatic Pilot Mechanic: Ernst Dillard MD Protein Ql (U) Negative Normal NEG [facility] Comment on above: Performed By: #### U MICAO, UAX #### [facility] [address] [place] [address] [place], [place] [address] Automatic Pilot Mechanic: Ernst Dillard MD Spec. [place],Ur <1.005 Low 1.010-1.02 0 [facility] Comment on above: Performed By: #### U MICAO, UAX #### [facility] [address] [place] [address] [address] [place], [place] [id number] Automatic Pilot Mechanic: Ersnt Dillard MD Urobilinogen,Ur Normal Normal NORM [facility] Comment on above: Performed By: #### U VELO, UAX #### [address] [place] [address] Automatic Pilot Mechanic: Ernst Dillard MD Urinalysis with Reflex to Cu ltureon 06-08-2022 Bilirubin Urine Negative NEGATIVE [facility] Color, UA Yellow Yellow [facility] Glucose Auto test strip (U) [Mass/Vol] Negative NEGATIVE [facility] Interpretation and review of laboratory results Abnormal [facility] Ketones (U) [Mass/Vol] Negative NEGATIVE [facility] Leukocyte esterase Auto test strip Ql (U) Negative NEGATIVE [facility] Nitrite Auto test strip Ql (U) Negative NEGATIVE [facility] Protein (U) [Mass/Vol] 6.0 mg/dL 5.0 - 9.0 [facility] Protein (U) [Mass/Vol] Negative NEGATIVE [facility] Specific [place], UA Low 1.010 - 1.020 [facility] Turbidity UA Clear Clear [facility] Urine Hgb Negative NEGATIVE [facility] Urobilinogen, Urine Normal Normal [facility] Urinalysis,Microon 3 Bacteria 1+ Abnormal NONE [facility] Comment on above: Performed By: #### U MICAO, UAX #### [facility] [address] [place] [address] [place], [place] [address] Automatic Pilot Mechanic: Ernst Dillard MD Epithelial cells LM Ql (Urine sed) 0 TO 2 Normal 0-25 [facility] Comment on above: Performed By: #### U MICAO, UAX #### [facility] [address] [place], [place] [id number] Automatic Pilot Mechanic: Ernst Dillard MD Urine RBC's 0 TO 2 Normal 0-2 [facility] Comment on above: Performed By: #### U MICAO, UAX #### [facility] [address] [place] [address] Automatic Pilot Mechanic: Ernst Dillard MD Urine WBC's 0 TO 2 Normal 0-5 [facility] Comment on above: Performed By: #### U MICAO, UAX #### [facility] [address] [place] [address] Automatic Pilot Mechanic: Ernst Dillard MD CBCon 06-07-2022 Hematocrit (Bld) [Volume fraction] 39.0 % 36.3 - 47.1 % [facility] Hemoglobin (Bld) [Mass/Vol] 13.2 g/dL 11.9 - 15.1 g/dL [facility] MCH (RBC) [Entitic mass] 31.4 pg 25.2 - 33.5 pg [facility] MCHC (RBC) [Mass/Vol] 33.8 g/dL 28.4 - 34.8 g/dL [facility] MCV (RBC) [Entitic vol] 92.6 fL 82.6 - 102.9 fL [facility] NRBC Automated 0.0 0.0 per 100 WBC [facility] Platelet distribution width (Bld) [Ratio] 13.6 % 11.8 - 14.4 % [facility] Platelet mean volume (Bld) [Entitic vol] 9.1 fL 8.1 - 13.5 fL [facility] Platelets (Bld) [#/Vol] 264 10*3/uL [facility] RBC (Bld) [#/Vol] 4.21 10*6/uL 3.95 - 5.11 m/uL [facility] WBC (Bld) [#/Vol] 11.1 10*3/uL [facility] Comprehensive Metabolic Pane juan 06-07-2022 Albumin [Mass/Vol] 4.2 g/dL 3.5 - 5.2 g/dL [facility] Albumin/Globulin [Mass ratio] 1.6 {ratio} 1.0 - 2.5 [facility] ALP [Catalytic activity/Vol] 68 U/L 35 - 104 U/L [facility] ALT [Catalytic activity/Vol] 20 U/L 5 - 33 U/L [facility] Anion gap [Moles/Vol] 9 mmol/L 9 - 17 mmol/L [facility] AST [Catalytic activity/Vol] 14 U/L NINF - 32 U/L [facility] Bilirubin [Mass/Vol] 0.2 mg/dL Low 0.3 - 1 .2 mg/dL [facility] Calcium [Mass/Vol] 9.1 mg/dL 8.6 - 10. 4 mg/dL [facility] Chloride [Moles/Vol] 103 mmol/L 98 - 10 7 mmol/L [facility] CO2 [Moles/Vol] 28 mmol/L 20 - 31 mmol/L [facility] Creatinine [Mass/Vol] 0.75 mg/dL 0.50 - 0.90 mg/dL [facility] GFR/1.73 sq M.predicted MDRD (S/P/Bld) [Vol rate/Area] - PINF [facility] Comment on above: These results are not intended for use in patients <18 years of age. eGFR results are calculated without a race factor using the 2020 CKD-EPI equation. Careful clinical correlation is recommended, particularly when comparing to results calculated using previous equations. The CKD-EPI equation is less accurate in patients with extremes of muscle mass, extra-renal metabolism of creatine, excessive creatine ingestion, or following therapy that affects renal tubular secretion. Glucose [Mass/Vol] 79 mg/dL 70 - 99 mg/dL [facility] Interpretation and review of laboratory results Abnormal [facility] Potassium [Moles/Vol] 4.0 mmol/L 3.7 - 5.3 mmol/L [facility] Protein [Mass/Vol] 6.8 g/dL 6.4 - 8.3 g/dL [facility] Sodium [Moles/Vol] 140 mmol/L 135 - 144 mmol/L [facility] Urea nitrogen [Mass/Vol] 9 mg/dL 6 - 20 mg/dL [facility] Urea nitrogen/Creatinine (Bld) [Mass ratio] 12 9 - 20 [facility] HCG Qualitative, Serumon hCG Qual Negative NEGATIVE [facility] Comment on above: Specimens with hCG l evels near the threshold of the test (25 mIU/mL) may give a negative or indeterminate result. In such cases, another test should be performed with a new specimen in 48-72 hours. If early is suspected clinically in this setting, correlation with quantitative serum b-hCG level is suggested. [place] has confirmed the use of plasma for this test. This has not been cleared or approved by the U.S. Food and Drug Administration. The FDA has determined that such clearance is not necessary. [facility] Lipaseon 06-07-2022 Lipase [Catalytic activity/Vol] 22 U/L 13 - 60 U/L [facility] No Panel Informationon 06-07 [facility] Gastroenterology Office/Clin ic Noteon 05-01-2022 Gastroenterology Office/Clinic Note History of Present Illness Patient is a 39-year-old female presents to GI clinic today for follow-up right upper quadrant pain, GERD, IBS. Patient had cholecystectomy 04/07/2022. Patient notes symptoms have greatly improved since cholecystectomy. Notes eating well. Having bowel movements daily. Does describe these as stool caliber 4-5 on the Dexter. Denies any current acid reflux or heartburn. Denies any nausea or vomiting. Denies any right upper quadrant pain. Continues to take omeprazole 40 mg twice daily. Did discuss with patient weaning down to once a day. Patient states still continues to take Bentyl daily. Also discussed weaning off of this with patient. Not currently taking cholestyramine. Denies any hematemesis hematochezia or melena. OV 02/12/22 Patient is a 31-year-old female presents to GI clinic today for follow-up CDF. Patient diagnosed with C. difficile 01/08 started on vancomycin. Patient notes still consistently having 5+ bowel movements daily. Does note these to be liquid. Does note these to be malodorous. Does not believe C. difficile is gone. Patient also notes having right upper quadrant pain. States this is consistently all the time. Notes that this is worse with eating and drinking. States that this radiates into her back. Patient did have ultrasound right upper quadrant showed no suspicious findings for pain. Did note a 4 mm stone within the mid body of cortex no hydronephrosis noted. Patient does note continually takes omeprazole 40 mg twice daily dicyclomine 10 mg 4 times daily and Zofran as needed. Patient does note these medications to help. OV 12/04/21 Patient is a 31-year-old female who presents to GI clinic today for follow-up appointment.Patient did miss appointment 06/23/2021. Last previous appointment 04/21/2021. Patient notes having diarrhea daily. States having multiple bowel movements. Notes having lower abdominal spasms and cramping. Notes nausea and vomiting have increasingly become worse over the last month. Notes nausea daily. States does not have appetite. Notes epigastric pain and acid reflux. Last office visit prescriptions for omeprazole dicyclomine and colestipol and Zofran given. Unsure if patient is currently taking as does not look like has been filled through external Rx history. Did discuss with patient medication regime. Will add amitriptyline. Follow-up 1 month. OV 04/21/21 Patient. EGD revealed esophagitis masses lesions ulcers pathology negative for celiac, mild chronic gastritis, minimal chronic inflammation in distal esophagus. Colonoscopy revealed diverticuli small hemorrhoids hypertrophic anal papillae. Patient states still having multiple soft to loose bowel movements daily. Does note lower abdominal pain states occasional epigastric pain and acid reflux. We will continue omeprazole 40 mg daily. Discussed taking Bentyl as needed for. Discussed increasing fiber in diet. Dietary modifications. Marijuana cessation encouraged. EGD 03/19/21 Impression and Plan Indication for EGD is dysphagia, dyspepsia, diarrhea. Examined mucosa of the esophagus was normal in the upper middle and distal region. GE junction located at 35 cm from the incisors. No erosive esophagitis, mass lesions, ulcers, rings/web/stricture/sten osis, varices. Random biopsies were obtained from the distal and proximal esophagus to rule out EOE. Examined mucosa of the stomach was normal in the region of fundus, body, antrum, pylorus except: Mucosal atrophy seen in distal gastric body and antrum. Retroflexion did not show a hiatal hernia. Random gastric biopsies were obtained to rule out H. pylori, intestinal metaplasia/dysplasia/mal ignancy. Examined mucosa of the duodenum was normal in the region of bulb, D1 and D2. Random biopsies were obtained to rule out celiac disease. Patient tolerated the procedure well without any complications. Recommendation: Await biopsy results. Treat for H. pylori if positive. Avoid NSAIDs. Continue PPI. Follow up in GI clinic for further recommendations. Proceed with same-day colonoscopy. [1] Colonoscopy 03/19/21 Impression and Plan Indication for colonoscopy is diarrhea, colon cancer screening. Examination completed till cecum and terminal ileum. Good bowel prep with the Warren bowel prep score of 7. IRENE negative for stenosis/stricture or palpable mass lesion. Examined mucosa of the terminal ileum, cecum, ascending colon, hepatic flexure, transverse colon, splenic flexure, descending colon, sigmoid colon, rectum was normal except: Diverticulosis in the right colon -mild, uncomplicated. TI mucosa was normal. Retroflexion in the rectum showed small internal and external hemorrhoids, hypertrophic anal papillae. Random biopsies were obtained from the terminal ileum, right colon and left colon to rule out microscopic colitis. No concerning polyps or mass lesion seen on this colonoscopy exam. Patient tolerated the procedure well without any complications. Recommendation: Await biopsy (more content not included)... Normal [facility] XR SHOULDER RIGHT (MIN 2 VIE WS)on 04-23-2022 XR SHOULDER RIGHT (MIN 2 VIEWS) EXAMINATION: 4 XRAY VIEWS OF THE RIGHT SHOULDER 04/23/2022 2:42 pm COMPARISON: 07/03/2021 HISTORY: ORDERING SYSTEM PROVIDED HISTORY: pain limited movement TECHNOLOGIST PROVIDED HISTORY: pain limited movement FINDINGS: Glenohumeral joint is normally aligned. No evidence of acute fracture or dislocation. No abnormal periarticular calcifications. The AC joint is unremarkable in appearance. Visualized lung is unremarkable. IMPRESSION: No acute abnormality. Interpreted by: Natan Beard MD Signed by: Natan Beard MD 04/23/22 Final result Normal [facility] XR ABDOMEN (KUB) (SINGLE AP VIEW)on 04-17-2022 XR ABDOMEN (KUB) (SINGLE AP VIEW) EXAMINATION: ONE SUPINE XRAY VIEW(S) OF THE ABDOMEN 04/17/2022 12:26 pm COMPARISON: 03/15/2022 HISTORY: ORDERING SYSTEM PROVIDED HISTORY: Kidney stones TECHNOLOGIST PROVIDED HISTORY: h/o kidney stones FINDINGS: Status post cholecystectomy. No renal or ureteral stones identified. Pelvic calcifications suggesting phleboliths. No significant distention of bowel loops. IMPRESSION: Unremarkable appearing abdomen Interpreted by: Natan Beard MD Signed by: Natan Beard MD 04/17/22 Final result Normal [facility] Operative Reporton Operative Report [facility] Operative Note [facility] ID: [id number] Indication for surgery: Patient is a 31 year old female with right upper quadrant pain and gallstones. Pre-operative Dx: RUQ pain Gallstones Post-operative Dx: No evidence of gallstones Operation: Laparoscopic cholecystectomy Surgeon: [employer] Field Engineer: Jon EPSTEIN Anesthesia: Alla MINERALOGY TEACHER GET EBL: 10 ml Urine output: none Findings: No evidence of gallstones Specimens: Gallbladder Complications: none Technique: Patient was brought to the operating room, placed in supine position and general anesthesia was induced. The abdomen was prepped and draped in sterile fashion. The umbilicus was inverted with an Allis clamp and a small umbilical incision was created. A Justo cannula was inserted and the abdomen was insufflated with carbon dioxide gas to 15 mmHg. Laparoscope was inserted and the abdomen was surveyed. With the patient in reverse Trendelenburg position, three small incisions were made in the right subcostal region. 5 mm trocars were inserted with laparoscopic guidance. The gallbladder was identified and retracted towards the right shoulder. Dissection was undertaken at the gallbladder-cystic duct junction. The cystic duct was freed from the surrounding tissue, clipped three times on the common duct side, clipped once on the gallbladder side then divided between clips. The cystic artery was similarly managed. The gallbladder was freed from the gallbladder bed using electrocautery. The gallbladder was extracted through the umbilicus with a camera in the epigastric trocar. The right upper quadrant was inspected. The clips were intact on both the duct and artery. Irrigation was undertaken until the irrigant returned clear. Trocars were removed and the sites were hemostatic. Umbilical fascia was re-approximated with 0-Vicryl [id number] suture. Smaller trocar sites were closed with 4-0 Monocryl. Dermabond was placed as a skin dressing at the 5 mm sites. A cotton ball and Tegaderm was placed at the umbilicus. Patient was extubated and transferred to recovery in stable condition. Sponge/needle count: Correct X2 IVF: per anesthesia Electronically signed by _ Duc Rascon MD 04/07/22 13:55 EST Normal [facility] CBC with Diffon 03-15-2022 Abs. Basophil 0.06 k/uL Normal 0.00-0.20 [facility] Comment on above: Performed By: #### C DP, HCG, CP, LIP ####[address] , [facility] Lab Director: Ernst Dillard MD Abs.Imm.Granulocyte <0.03 Normal 0.00-0.30 [facility] Comment on above: Performed By: #### C DP, HCG, CP, LIP ####[address] , [facility] Lab Director: Ernst Dillard MD Abs.Neutrophil (Seg) 3.89 k/uL Normal 1.50-8.10 [facility] Comment on above: Performed By: #### C DP, HCG, CP, LIP ####[address] [place] [address] Lab Director: Ernst Dillard MD Basophils/100 WBC (Bld) 1 % Normal 0-2 M [facility] Comment on above: Performed By: #### C DP, HCG, CP, LIP ####[address] , [place] [id number] Lab Director: Ernst Dillard MD Eosinophils (Bld) [#/Vol] 0.27 10*3/uL Normal 0.00-0.44 [facility] Comment on above: Performed By: #### C DP, HCG, CP, LIP ####[address] [place] [address] Lab Director: Ernst Dillard MD Eosinophils/100 WBC (Bld) 4 % Normal 1-4 [facility] Comment on above: Performed By: #### C DP, HCG, CP, LIP ####[address] [place] [address] Lab Director: Ernst Dillard MD Erythrocyte distribution width (RBC) [Ratio] 13.2 % Normal 11.8-14.4 [facility] Comment on above: Performed By: #### C DP, HCG, CP, LIP ####[address] , [place] [address] Lab Director: Ernst Dillard MD Hematocrit (Bld) [Volume fraction] 46.7 % Normal 36.3-47.1 [facility] Comment on above: Performed By: #### C DP, HCG, CP, LIP ####[address] , [facility]83 Lab Director: Ernst Dillard MD Hemoglobin (Bld) [Mass/Vol] 15.3 g/dL High 11.9-15.1 [facility] Comment on above: Performed By: #### C DP, HCG, CP, LIP ####[address] [place] [address] Lab Director: Ernst Dillard MD Immature granulocytes/100 WBC (Bld) 0 % Normal 0 [facility] Comment on above: Performed By: #### C DP, HCG, CP, LIP ####[address] , [place] [id number] Lab Director: Ernst Dillard MD Lymphocytes (Bld) [#/Vol] 1.84 10*3/uL Normal 1.10-3.70 [facility] Comment on above: Performed By: #### C DP, HCG, CP, LIP ####[address] [place] [address] Lab Director: Ernst Dillard MD Lymphocytes/100 WBC (Bld) 27 % Normal 24-43 [facility] Comment on above: Performed By: #### C DP, HCG, CP, LIP ####[address] [place] [address] Lab Director: Ernst Dillard MD MCH (RBC) [Entitic mass] 31.4 pg Normal 25.2-33.5 [facility] Comment on above: Performed By: #### C DP, HCG, CP, LIP ####[address] , [facility]83[facility])[phone] Director: Ernst Dillard MD MCHC (RBC) [Mass/Vol] 32.8 g/dL Normal 28.4-34.8 [facility] Comment on above: Performed By: #### C DP, HCG, CP, LIP ####[address] [place] [address] Lab Director: Ernst Dillard MD MCV (RBC) [Entitic vol] 95.7 fL Normal 82.6-102.9 M [facility] Comment on above: Performed By: #### C DP, HCG, CP, LIP ####[address] [place] [address] Lab Director: Ernst Dillard MD Monocytes (Bld) [#/Vol] 0.65 10*3/uL Normal 0.10-1.20 [facility] Comment on above: Performed By: #### C DP, HCG, CP, LIP ####[address] , [place] [id number] Lab Director: Ernst Dillard MD Monocytes/100 WBC (Bld) 10 % Normal 3-12 M [facility] Comment on above: Performed By: #### C DP, HCG, CP, LIP ####[address] [place] [address] Lab Director: Ernst Dillard MD Neutrophil (Seg) 58 % Normal 36-65 [facility] Comment on above: Performed By: #### C DP, HCG, CP, LIP ####[address] [place] [address] Lab Director: Ernst Dillard MD NRBC Automated 0.0 per 100 WBC Normal 0.0 [facility] Comment on above: Performed By: #### C DP, HCG, CP, LIP ####[address] , [place] [address]83 Lab Director: Ernst Dillard MD Platelet mean volume (Bld) [Entitic vol] 9.0 fL Normal 8.1-13.5 [facility] Comment on above: Performed By: #### C DP, HCG, CP, LIP ####[address] [place] [address] Lab Director: Ernst Dillard MD Platelets (Bld) [#/Vol] 305 10*3/uL Normal 138-453 [facility] Comment on above: Performed By: #### C DP, HCG, CP, LIP ####[address] [place] [address] Lab Director: Ernst Dillard MD RBC (Bld) [#/Vol] 4.88 10*6/uL Normal 3.95-5.11 [facility] Comment on above: Performed By: #### C DP, HCG, CP, LIP ####[address] [place] [address] Lab Director: Ernst Dillard MD WBC (Bld) [#/Vol] 6.7 10*3/uL Normal 3.5-11.3 [facility] Comment on above: Performed By: #### C DP, HCG, CP, LIP ####[facility] [place] [address] lab Director: Ernst Dillard MD CT ABDOMEN PELVIS W IV CONTR Jorge Luis 03-15-2022 CT ABDOMEN PELVIS W IV CONTRAST EXAMINATION: CT OF THE ABDOMEN AND PELVIS WITH CONTRAST 03/15/2022 12:47 pm TECHNIQUE: CT of the abdomen and pelvis was performed with the administration of intravenous contrast. Multiplanar reformatted images are provided for review. Automated exposure control, iterative reconstruction, and/or weight based adjustment of the mA/kV was utilized to reduce the radiation dose to as low as reasonably achievable. COMPARISON: 11/12/2021 HISTORY: ORDERING SYSTEM PROVIDED HISTORY: Severe abdominal discomfort, right upper quadrant discomfort TECHNOLOGIST PROVIDED HISTORY: Severe abdominal discomfort, right upper quadrant discomfort Decision Support Exception - unselect if not a suspected or confirmed emergency medical condition->Emergency Medical Condition (MA) FINDINGS: Lower Chest: Bilateral posterior basal subsegmental atelectasis. New from prior. Organs: The liver, spleen, pancreas, kidneys and adrenal glands show no significant abnormality. Gallbladder shows no significant abnormality. GI/Bowel: There is limited evaluation due to absence of oral contrast. The stomach shows no focal lesions. Small bowel loops normal in caliber showing no focal abnormalities. Normal appendix. Evaluation of the colon shows no acute process. Pelvis: Pelvic organs unremarkable. Bilateral tubal ligation clips noted with benign-appearing 2.5 cm right adnexal cystic structure, series 2, image 105, closely applied to the tubes which could be hydrosalpinx. Right ovary is seen separately posterior into the right on image 114. Findings unchanged. Peritoneum/Retroperitone um: No free fluid or significant lymphadenopathy. Bones/Soft Tissues: No acute abnormality of the bones. The superficial soft tissues show no significant abnormalities. IMPRESSION: 1. No acute infective or inflammatory process. 2. Interval development of minimal bilateral posterior basal subsegmental atelectasis. 3. Redemonstration of bilateral tubal ligation and 2.5 cm ovoid cystic structure with imperceptible wall closely applied to the right tubal ligation clips region which could be hydrosalpinx or paraovarian cyst. Right ovary is seen separately posterior to the right. Unchanged appearance from prior. Interpreted by: Ck Wilburn MD Signed by: Ck Wilburn MD 03/15/22 Final result Normal [facility] Comp Metabolic Profon 2021 Albumin [Mass/Vol] 4.8 g/dL Normal 3.5-5.2 [facility] Comment on above: Performed By: #### C DP, HCG, CP, LIP ####[address] [place] [address] Lab Director: Ernst Dillard MD Albumin/Glob Ratio 1.7 Normal 1.0-2.5 [facility] Comment on above: Performed By: #### C DP, HCG, CP, LIP ####[address] , [place] 2524[address] Lab Director: Ernst Dlilard MD Alkaline Phos 71 U/L Normal 35-104 [facility] Comment on above: Performed By: #### C DP, HCG, CP, LIP ####[address] [place] [address] Lab Director: Ernst Dillard MD ALT [Catalytic activity/Vol] 13 U/L Normal 5-33 [facility] Comment on above: Performed By: #### C DP, HCG, CP, LIP ####[address] [place] [address] Lab Director: Ernst Dillard MD Anion gap [Moles/Vol] 9 mmol/L Normal 9-17 [facility] Comment on above: Performed By: #### C DP, HCG, CP, LIP ####[address] , [place] 5545[address] Lab Director: Ernst Dillard MD AST [Catalytic activity/Vol] 14 U/L Normal <32 [facility] Comment on above: Performed By: #### C DP, HCG, CP, LIP ####[address] [place] [address] Lab Director: Ernst Dillard MD Bilirubin [Mass/Vol] 0.2 mg/dL Low 0.3-1.2 [facility] Comment on above: Performed By: #### C DP, HCG, CP, LIP ####[address] [place] [address] Lab Director: Ernst Dillard MD BUN/CRE Ratio 14 Normal 9-20 [facility] Comment on above: Performed By: #### C DP, HCG, CP, LIP ####[address] [place] [address] Lab Director: Ernst Dillard MD Calcium [Mass/Vol] 9.7 mg/dL Normal 8.6-10.4 [facility] Comment on above: Performed By: #### C DP, HCG, CP, LIP ####[address] , [place] [phone] Director: Ernst Dillard MD Chloride [Moles/Vol] 101 mmol/L Normal 98-107 [facility] Comment on above: Performed By: #### C DP, HCG, CP, LIP ####[address] [place] [address] Lab Director: Ernst Dillard MD CO2 [Moles/Vol] 28 mmol/L Normal 20-31 [facility] Comment on above: Performed By: #### C DP, HCG, CP, LIP ####[address] [place] [address] Lab Director: Ernst Dillard MD Creatinine [Mass/Vol] 0.76 mg/dL Normal 0.50-0.90 [facility] Comment on above: Performed By: #### C DP, HCG, CP, LIP ####[address] [place] [address] lab Director: Ernst Dillard MD GFR/1.73 sq M.predicted among non-blacks MDRD (S/P/Bld) [Vol rate/Area] mL/min/{1.73_m2} Normal >60 [facility] Comment on above: Result Comment: Effective Jan 12, 2022 These results are not intended for use in patients <18 years of age. eGFR results are calculated without a race factor using the 2020 CKD-EPI equation. Careful clinical correlation is recommended, particularly when comparing to results calculated using previous equations. The CKD-EPI equation is less accurate in patients with extremes of muscle mass, extra-renal metabolism of creatine, excessive creatine ingestion, or following therapy that affects renal tubular secretion. Performed By: #### C DP, HCG, CP, LIP ####[address] [place] [address] lab Director: Ernst Dillard MD Glucose [Mass/Vol] 101 mg/dL High 70-99 [facility] Comment on above: Performed By: #### C DP, HCG, CP, LIP ####[address] , [place] 6752383 lab Director: Ernst Dillard MD Potassium [Moles/Vol] 4.2 mmol/L Normal 3.7-5.3 [facility] Comment on above: Performed By: #### C DP, HCG, CP, LIP ####[address] , [place] 1455483 lab Director: Ernst Dillard MD Protein [Mass/Vol] 7.6 g/dL Normal 6.4-8.3 [facility] Comment on above: Performed By: #### C DP, HCG, CP, LIP ####[address] [place] [address] lab Director: Ernst Dillard MD Sodium [Moles/Vol] 138 mmol/L Normal 135-144 [facility] Comment on above: Performed By: #### C DP, HCG, CP, LIP ####[place] [address] [place] [address] lab Director: Ernst Dillard MD Urea nitrogen [Mass/Vol] 11 mg/dL Normal 6-20 [facility] Comment on above: Performed By: #### C DP, HCG, CP, LIP ####[facility] [place] [address] lab Director: Ernst Dillard MD HCG Screen, Bloodon 03-15-20 22 HCG Screen, Blood Negative Normal NEG [facility] Comment on above: Result Comment: Spec imens with hCG levels near the threshold of the test (25 mIU/mL) may give a negative or indeterminate result. In such cases, another test should be performed with a new specimen in 48-72 hours. If early is suspected clinically in this setting, correlation with quantitative serum b-hCG level is suggested. [facility] has confirmed the use of plasma for this test. This has not been cleared or approved by the U.S. Food and Drug Administration. The FDA has determined that such clearance is not necessary. Performed By: #### C DP, HCG, CP, LIP ####[address] [place] [address] lab Director: Ernst Dillard MD Lactic Acidon Lactate [Moles/Vol] 1.1 mmol/L Normal 0.5-2.2 [facility] Comment on above: Performed By: #### L ACTIC ####[address] [place] [address] lab Director: Ernst Dillard MD Lipaseon 3 Lipase [Catalytic activity/Vol] 13 U/L Normal 13-60 [facility] Comment on above: Performed By: #### C DP, HCG, CP, LIP ####[address] [place] [address] lab Director: Ernst Dillard MD Urinalysis, Routineon 2021 Bilirubin, SemiQt,Ur Negative Normal NEG [facility] Comment on above: Performed By: #### U A ####[address] , [place] 0101783 lab Director: Ernst Dillard MD Blood, Urine Negative Normal NEG [facility] Comment on above: Performed By: #### U A ####[address] , [place] 4016783 lab Director: Ernst Dillard MD Clarity (U) Clear Normal CLEAR [facility] Comment on above: Performed By: #### U A ####[address] , [facility]83 lab Director: Ernst Dillard MD Color (U) Yellow Normal YEL [facility] Comment on above: Performed By: #### U A ####[address] , [facility]83 lab Director: Ernst Dillard MD Glucose Ql (U) Negative Normal NEG [facility] Comment on above: Performed By: #### U A ####[address] , [facility]83 lab Director: Ernst Dillard MD Ketones Ql (U) Negative Normal NEG [facility] Comment on above: Performed By: #### U A ####[address] , [facility]83 lab Director: Ernst Dillard MD Leukocyte esterase Test strip Ql (U) Negative Normal NEG [facility] Comment on above: Performed By: #### U A ####[address] [place] [address] lab Director: Ernst Dillard MD Nitrite,Ur Negative Normal [facility] Comment on above: Performed By: #### U A ####[address] [place] [address] lab Director: Ernst Dillard MD PH,Ur 7.0 Normal 5.0-9.0 [facility] Comment on above: Performed By: #### U A ####[address] , [place] 6908[address] lab Director: Ernst Dillard MD Protein Ql (U) Negative Normal NEG [facility] Comment on above: Performed By: #### U A ####[address] , [place] 710[address]83 lab Director: Ernst Dillard MD Spec. [place],Ur 1.010 Normal 1.010-1.02 0 [facility] Comment on above: Performed By: #### U A ####[address] , [place] 9905383 lab Director: Ernst Dillard MD Urobilinogen,Ur Normal Normal NORM [facility] Comment on above: Performed By: #### U A ####[address] , [place] 9758383 lab Director: Ernst Dillard MD EVENT MONITORon 02-27-2022 EVENT MONITOR [address] [id number] EVENT MONITOR PATIENT NAME: ABRAHAN WOODS : 1990 MED REC NO: [id number] ROOM: ACCOUNT NO: [id number] ADMIT DATE: 02/19/2022 PROVIDER: Kirk Hager MD CARDIOVASCULAR DIAGNOSTIC DEPARTMENT DATE OF STUDY: 02/19/2022 ORDERING PROVIDER: Srinivasa Ward CNP PRIMARY CARE PROVIDER: Srinivasa Ward CNP INTERPRETING PHYSICIAN: Kirk Hager MD DIAGNOSIS: Palpitations. PHYSICIAN INTERPRETATION: Recording Length: 4 days, 2 hours. Findings Summary 1. Predominant rhythm: Normal sinus rhythm. 2. PAC 0.01%. 3. PVC 0.01%. Multiple symptoms were reported and were associated with sinus rhythm in the 70's to sinus tachycardia in the 110 range. Otherwise unremarkable study. 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 Senthil Menchaca CBC AUTO DIFFon 01-20-2022 BASO # 0.1 103/ul Normal 0.0-0.1 [facility] Comment on above: Performed By: #### C BC ####[facility] [address] [place] [address]DrTonya Menchaca Basophils/100 WBC (Bld) 0.7 % Normal 0.2-2.0 [facility] Comment on above: Performed By: #### C BC ####[facility] [address] [place] [address]DrTonya Menchaca EO # 0.4 103/ul Normal 0.0-0.7 [facility] Comment on above: Performed By: #### C BC ####[facility] [address] [place] [address]Dr. Senthil Menchaca Eosinophils/100 WBC (Bld) 5.2 % Normal 0.9-7.0 [facility] Comment on above: Performed By: #### C BC ####[facility] [address] [place] [address]DrTonya Menchaca Erythrocyte distribution width (RBC) [Ratio] 14.9 % Normal 11.0-15.0 [facility] Comment on above: Performed By: #### C BC ####[facility] [address] [place] [address]DrTonya Menchaca Hematocrit (Bld) [Volume fraction] 42.0 % Normal 36.0-48.0 [facility] Comment on above: Performed By: #### C BC ####[facility] [address] [place] [id number]. Senthil Menchaca Hemoglobin (Bld) [Mass/Vol] 13.8 g/dL Normal 12.0-16.0 [facility] Comment on above: Performed By: #### C BC ####[facility] [address] [place] [address]Dr. Senthil Menchaca IG # 0.02 10e3/ul Normal 0.00-0.03 [facility] Comment on above: Performed By: #### C BC ####[facility] [address] [place] [address]Dr. eSnthil Menchaca IG % 0.2 % Normal 0.0-0.5 [facility] Comment on above: Performed By: #### C BC ####[facility] [address] [place] [address]Dr. Senthil Menchaca LYMPH # 2.3 103/ul Normal 1.2-3.8 [facility] Comment on above: Performed By: #### C BC ####[facility] [address] [place] [id number]. Senthil Menchaca Lymphocytes/100 WBC (Bld) 26.6 % Normal 20.5-60.0 [facility] Comment on above: Performed By: #### C BC ####[facility] [address] [place] [id number]. Senthil Menchaca MANUAL DIFF REQ NO Normal [facility] Comment on above: Performed By: #### C BC ####[facility] [address] [place] [id number]. Senthil Menchaca MCH (RBC) [Entitic mass] 30.9 pg Normal 26.7-34.0 [facility] Comment on above: Performed By: #### C BC ####[facility] [address] [place] [id number]. Senthil Menchaca MCHC (RBC) [Mass/Vol] 32.9 g/dL Normal 29.9-35.2 [facility] Comment on above: Performed By: #### C BC ####[facility] [address] [place] [address]Dr. Senthil Menchaca MCV (RBC) [Entitic vol] 94.0 fL Normal 81.0-99.0 [facility] Comment on above: Performed By: #### C BC ####[facility] [address] [place] [id number]. Senthil Menchcaa MONO # 1.0 103/ul Critically high 0.3-0.8 [facility] Comment on above: Performed By: #### C BC ####[facility] [address] [place], [place] [address]Dr. Senthil eMnchaca Monocytes/100 WBC (Bld) 11.6 % Normal 1.7-12.0 [facility] Comment on above: Performed By: #### C BC ####[facility] [address] [place], [place] [address]Dr. Senthil Menchaca NEUT # 4.8 103/ul Normal 1.4-6.5 [facility] Comment on above: Performed By: #### C BC ####[facility] [address] [place], [place] [address]Dr. Senthil Menchaca Neutrophils/100 WBC (Bld) 55.7 % Normal 43.0-75.0 [facility] Comment on above: Performed By: #### C BC ####[facility] [address] [place] [address]Dr. Senthil Menchaca Platelet mean volume (Bld) [Entitic vol] 9.4 fL Critically low 9.5-13.5 [facility] Comment on above: Performed By: #### C BC ####[facility] [address] [place] [id number]. Senthil Menchaca PLT 250 103/ul Normal 150-450 [facility] Comment on above: Performed By: #### C BC ####[facility] [address] [place], [place] [address]Dr. Senthil Menchaca RBC 4.47 106/ul Normal 4.20-5.40 [facility] Comment on above: Performed By: #### C BC ####[facility] [address] [place] [address]Dr. Senthil Menchaca WBC 8.5 103/ul Normal 4.0-11.0 [facility] Comment on above: Performed By: #### C BC ####[facility] [address] [place], [place] [address]Dr. Senthil Menchaca LIPASEon 01-20-2022 Lipase [Catalytic activity/Vol] 52.0 U/L Critically low 73.0-393.0 [facility] Comment on above: Performed By: #### A MY, LIPA, CMP ####[facility] [address] [place], [place] [address]Dr. Senthil Menchaca PROF 14(COMP METB)on 022 Albumin [Mass/Vol] 3.8 g/dL Normal 3.4-5.0 [facility] Comment on above: Performed By: #### A MY, LIPA, CMP ####[facility] [address] [place], [place] [address]Dr. Senthil Menchaca Albumin/Globulin [Mass ratio] 1.1 {ratio} Normal [facility] Comment on above: Performed By: #### A MY, LIPA, CMP ####[facility] [address] [place], [place] [address]Dr. Senthil Menchaca ALP [Catalytic activity/Vol] 60 U/L Normal 46-116 [facility] Comment on above: Performed By: #### A MY, LIPA, CMP ####[facility] [address] [place], [place] [address]Dr. Senthil Menchaca ALT [Catalytic activity/Vol] 33 U/L Normal 14-59 [facility] Comment on above: Performed By: #### A MY, LIPA, CMP ####[facility] [address] [place], [place] [address]Dr. Senthil Menchaca Anion gap [Moles/Vol] 12.6 mmol/L Normal [facility] Comment on above: Performed By: #### A MY, LIPA, CMP ####[facility] [address] [place] [address]Dr. Senthil Menchaca AST [Catalytic activity/Vol] 12 U/L Critically low 15-37 [facility] Comment on above: Performed By: #### A GENESIS GUEVARAA, CMP ####[facility] [address] [place], [place] [address]Dr. Senthil Menchaca Bilirubin [Mass/Vol] 0.2 mg/dL Normal 0.2-1.0 [facility] Comment on above: Performed By: #### A TAMEKA LIPA, CMP ####[facility] [address] [place], [place] [address]Dr. Senthil Menchaca Calcium [Mass/Vol] 8.4 mg/dL Critically low 8.5-10.1 [facility] Comment on above: Performed By: #### A TAMEKA LIPA, CMP ####[facility] [address] [place], [place] [address]Dr. Senthil Menchaca Chloride [Moles/Vol] 104 mmol/L Normal 98-107 [facility] Comment on above: Performed By: #### A TAMEKA LIPA, CMP ####[facility] [address] [place], [place] [address]Dr. Senthil Menchaca CO2 [Moles/Vol] 29.1 mmol/L Normal 21.0-32.0 [facility] Comment on above: Performed By: #### A TAMEKA LIPA, CMP ####[facility] [address] [place], [place] [address]Dr. Senthil Menchaca Creatinine [Mass/Vol] 0.89 mg/dL Normal 0.55-1.02 [facility] Comment on above: Performed By: #### A TAMEKA LIPA, CMP ####[facility] [address] [place], [place] [address]Dr. Senthil Menchaca EGFR-AF BELARUSIAN >60 Normal >=60 [facility] Comment on above: Performed By: #### A TAMEKA LIPA, CMP ####[facility] [address] [place], [place] [address]Dr. Senthil Menchaca EGFR-NON AF BELARUSIAN >60 Normal >=60 [facility] Comment on above: Performed By: #### A TAMEKA LIPA, CMP ####[facility] [address] [place] [address]Dr. Senthil Menchaca Globulin (S) [Mass/Vol] 3.4 g/dL Normal T [facility] Comment on above: Performed By: #### A TAMEKA LIPA, CMP ####[facility] [address] [place] [address]Dr. Senthil Menchaca Glucose [Mass/Vol] 81 mg/dL Normal 74-106 [facility] Comment on above: Performed By: #### A TAMEKA LIPA, CMP ####[facility] [address] [place], [place] [address]Dr. Senthil Nikolai Potassium [Moles/Vol] 3.7 mmol/L Normal 3.5-5.1 [facility] Comment on above: Performed By: #### A MY LIPA, CMP ####[facility] [address] [place], [place] [address]Dr. Naomimikel Menchaca Protein [Mass/Vol] 7.2 g/dL Normal 6.4-8.2 [facility] Comment on above: Performed By: #### A TAMEKA LIPA, CMP ####[facility] [id number] [place], [place] [address]Dr. Naomimikel Menchaca Sodium [Moles/Vol] 142 mmol/L Normal 136-145 [facility] Comment on above: Performed By: #### A TAMEKA LIPA, CMP ####[facility] [id number] [place], [place] [address]Dr. Senthil Nikolai Urea nitrogen [Mass/Vol] 12.0 mg/dL Normal 7.0-18.0 [facility] Comment on above: Performed By: #### A MY LIPA, CMP ####[facility] [id number] [place], [place] [address]Dr. Senthil Nikolai Urea nitrogen/Creatinine [Mass ratio] 13.5 mg/mg Normal [facility] Comment on above: Performed By: #### A MY LIPA, CMP ####[facility] [id number] [place], [place] [address]Dr. Naomimikel Menchaca US SINGLE QUAD RT UPPERon US SINGLE QUAD RT UPPER EXAMINATION: US SINGLE QUAD RT UPPER HISTORY: Upper abdominal pain ; right upper quadrant pain for one week COMPARISON: No relevant comparison available. TECHNIQUE: Transabdominal evaluation of the right upper quadrant. FINDINGS: LIVER: Normal size and echotexture. Color Doppler demonstrates patent hepatic veins. PORTAL VEIN: Duplex Doppler demonstrates normal hepatopetal flow pattern with flow velocity averaging 25 cm/s. GALLBLADDER: No visible gallstones, wall thickening, or pericholecystic free fluid. Negative sonographic Rausch's sign. BILIARY: No abnormal dilation or stones. Common bile duct diameter is within normal limits. PANCREASE: No visible mass, abnormal atrophy, or duct dilation. KIDNEY: 4 mm stone within mid body cortex. No hydronephrosis or appreciable mass. Size: 9.6 x 4.5 x 4.9 cm. IMPRESSION: 1. No acute or suspicious findings to account for patient's symptoms. Electronically authenticated by: KIRK SHANNON Date: 2022-01-20 08:50 Normal [facility] ER URINE PROFILEon 2 Bilirubin Ql (U) Negative Normal NEGATIVE [facility] Comment on above: Performed By: #### E RUR, PREGU #### [facility] [address] [place] [address] Dr. Senthil Menchaca Clarity (U) CLEAR Normal CLEAR [facility] Comment on above: Performed By: #### E RUR, PREGU #### [facility] [address] [place] [address] Dr. Senthil Menchaca Color (U) LT. YELLOW Normal YELLOW [facility] Comment on above: Performed By: #### E RUR, PREGU #### [facility] [address] [place] [address] Dr. Senthil Menchaca ERUAHD A micrscopic examina tion will be performed if indicated. Normal [facility] Comment on above: Performed By: #### E RUR, PREGU #### [facility] [address] [place] [address] Dr. Senthil Menchaca Glucose Ql (U) Negative Normal NEGATIVE [facility] Comment on above: Performed By: #### E RUR, PREGU #### [facility] [address] [place] [address] Dr. Senthil Menchaca Hemoglobin Ql (U) Negative Normal NEGATIVE [facility] Comment on above: Performed By: #### E RUR, PREGU #### [facility] [address] [place] [address] Dr. Senthil Menchaca Ketones Ql (U) Negative Normal NEGATIVE [facility] Comment on above: Performed By: #### E RUR, PREGU #### [facility] [address] [place] [address] Dr. Senthil Menchaca LEUKOCYTES Negative Normal NEGATIVE [facility] Comment on above: Performed By: #### E RUR, PREGU #### [facility] [address] [place] [address] Dr. Senthil Menchaca Nitrite Ql (U) Negative Normal NEGATIVE [facility] Comment on above: Performed By: #### E RUR, PREGU #### [facility] [address] [place] [address] Dr. Senthil Menchaca pH (U) 6.0 [pH] Normal 5-9 [facility] Comment on above: Performed By: #### E RUR, PREGU #### [facility] [address] [place] [address] Dr. Senthil Menchaca SPEC GRAVITY 1.025 Normal 1.005-<=1. 025 [facility] Comment on above: Performed By: #### E RUR, PREGU #### [facility] [address] [place] [address] Dr. Senthil Menchaca UA PROTEIN Negative Normal NEGATIVE/ TRACE [facility] Comment on above: Performed By: #### E RUR, PREGU #### [facility] [address] [place] [address] Dr. Senthil Menchaca UR MICRO IND NOT INDICATED Normal [facility] Comment on above: Performed By: #### E RUR, PREGU #### [facility] [address] [place] [address] Dr. Senthil Menchaca Urobilinogen Qn (U) 0.2 {Sherley'U}/dL Normal 0.2 - 1. 0 [facility] Comment on above: Performed By: #### E RUR, PREGU #### [facility] [address] [place], [place] [address] Dr. Senthil Menchaca URon 01-19-2022 , QUAL Negative Normal NEGATIVE [facility] Comment on above: Performed By: #### E RUR, PREGU #### [facility] [address] [place], [place] [address] Dr. Senthil Menchaca NM GASTRIC EMPTYINGon 2021 Gastric emptying is within normal limits. [facility] EXAMINATION: NUCLEAR MEDICINE GASTRIC EMPTYING STUDY 12/22/2021 12:03 pm TECHNIQUE: Following ingestion of a standard solid meal labeled with 1.0 mCi Tc 99m sulfur colloid, planar images of the chest and abdomen were obtained at multiple time points in both anterior and posterior projections. Regions of interest were drawn around the stomach and geometric means were calculated. All medications capable of altering motility were held. COMPARISON: None. HISTORY: ORDERING SYSTEM PROVIDED HISTORY: Diarrhea, unspecified type TECHNOLOGIST PROVIDED HISTORY: Is the patient ?->No Reason for Exam: diarrhea FINDINGS: The gastric emptying were calculated as follows: At 60 min, there is 48% emptying of the stomach. (Normal range is 10-70%) At 120 min, there is 77% emptying of the stomach. (Normal is >40%) At 180 minutes, there is 91% emptying of the stomach. At 240 min, there is 98% emptying of the stomach. (Normal is >90%) No significant esophageal retention, hiatal hernia or reflux was observed. [facility] Rodrigue Galo MD - 12/23/2021 EXAMINATION: NUCLEAR MEDICINE GASTRIC EMPTYING STUDY 12/22/2021 12:03 pm TECHNIQUE: Following ingestion of a standard solid meal labeled with 1.0 mCi Tc 99m sulfur colloid, planar images of the chest and abdomen were obtained at multiple time points in both anterior and posterior projections. Regions of interest were drawn around the stomach and geometric means were calculated. All medications capable of altering motility were held. COMPARISON: None. HISTORY: ORDERING SYSTEM PROVIDED HISTORY: Diarrhea, unspecified type TECHNOLOGIST PROVIDED HISTORY: Is the patient ?->No Reason for Exam: diarrhea FINDINGS: The gastric emptying were calculated as follows: At 60 min, there is 48% emptying of the stomach. (Normal range is 10-70%) At 120 min, there is 77% emptying of the stomach. (Normal is >40%) At 180 minutes, there is 91% emptying of the stomach. At 240 min, there is 98% emptying of the stomach. (Normal is >90%) No significant esophageal retention, hiatal hernia or reflux was observed. IMPRESSION: Gastric emptying is within normal limits. [facility] Work Phone: NM GASTRIC EMPTYINGOrdered B y: Rodrigue Galo on 12-23-2021 [facility] Phone: NM GASTRIC EMPTYINGon 2021 Radiology Study observation (narrative) [facility] Phone: Laboratory - Chemistry and C hemistry - challengeOrdered By: Srinivasa Ward on 12-11-2021 Ketones Ql (U) Negative (NEG ) [facility] Work Phone: Comment on above: Note: Responsible Ob wrapper and preserver: MAGALI YBARRA ([id number]) Laboratory - Specimen inform ationOrdered By: Srinivasa Ward on 12-11-2021 Clarity (U) Clear (CLEAR ) [facility] Work Phone: Comment on above: Note: Responsible Ob wrapper and preserver: MAGALI YBARRA ([id number]) Color (U) Yellow (YEL ) [facility] Work Phone: Comment on above: Note: Responsible Ob wrapper and preserver: MAGALI YBARRA ([id number]) Laboratory - UrinalysisOrder ed By: Srinivasa Ward on 12-11-2021 Epithelial cells LM Ql (Urine sed) 2 TO 5 /HPF (0-5 ) [facility] Work Phone: Comment on above: Note: Responsible Ob wrapper and preserver: MAGALI YBARRA ([id number]) Leukocyte esterase Test strip Ql (U) SMALL Abnormal (NEG ) [facility] Work Phone: Comment on above: Note: Responsible Ob wrapper and preserver: MAGALI YBARRA ([id number]) No Panel InformationOrdered By: Srinivasa Ward on 12-11-2021 Bilirubin, SemiQt,Ur Negative (NEG ) [facility] Work Phone: Comment on above: Note: Responsible Ob wrapper and preserver: MAGALI YBARRA ([id number]) Blood, Urine Negative (NEG ) [facility] Work Phone: Comment on above: Note: Responsible Ob wrapper and preserver: MAGALI YBARRA ([id number]) Casts 0 TO 2 HYALINE /LPF (0-8 ) [facility] Work Phone: Comment on above: Note: Reference rang e defined for non-centrifuged specimen.Responsible Observer: MAGALI YBARRA ([id number]) Chlamydia Probe, Ur Negative (NEG ) [facility] Work Phone: Comment on above: Note: CHLAMYDIA TRAC HOMATIS DNA not detected by nucleic acid amplification.This test is intended for medical purposes only and is not valid for theevaluation of suspected sexual abuse or for other forensic purposes.In certain contexts, culture may be required to meet applicable laws andregulations for diagnosis of C. trachomatis and N. gonorrhoeae infections.Per 2014 CDC recommendations, this test does not include confirmation ofpositive results by an alternative nucleic acid target.Responsible Observer: CFORTYEIGH AUTOFILE ([id number]) Glucose,Semi-qnt,Ur Negative (NEG ) [facility] Work Phone: Comment on above: Note: Responsible Ob wrapper and preserver: MAGALI YBARRA ([id number]) Gonorrhea Probe, Ur Negative (NEG ) [facility] Work Phone: Comment on above: Note: NEISSERIA GONO RRHOEAE DNA not detected by nucleic acid amplification.This test is intended for medical purposes only and is not valid for theevaluation of suspected sexual abuse or for other forensic purposes.In certain contexts, culture may be required to meet applicable laws andregulations for diagnosis of C. trachomatis and N. gonorrhoeae infections.Per 2014 CDC recommendations, this test does not include confirmation ofpositive results by an alternative nucleic acid target.Responsible Observer: CFORTYEIGH AUTOFILE ([id number]) Nitrite,Ur Negative (NEG ) [facility] Work Phone: Comment on above: Note: Responsible Ob wrapper and preserver: MAGALI YBARRA ([id number]) PH,Ur 8.5 High (5.0-8.0 ) [facility] Work Phone: Comment on above: Note: Responsible Ob wrapper and preserver: MAGALI YBARRA ([id number]) Protein, Semi-qnt,Ur Negative (NEG ) [facility] Work Phone: Comment on above: Note: Responsible Ob wrapper and preserver: MAGALI YBARRA ([id number]) Reported Physicians See Note [facility] Work Phone: Comment on above: Note: Reported Physi cians:Ordering: Srinivasa WardAttending: Cathryn WardieReferring: Srinivasa Ward Source: .URINE [facility] Work Phone: Comment on above: Note: Responsible Ob wrapper and preserver: SHERYL WEISS ([id number]) Spec. [place],Ur 1.011 (1.005-1.0 30 ) [facility] Work Phone: Comment on above: Note: Responsible Ob wrapper and preserver: MAGALI YBARRA ([id number]) Trich Vag, Molecular Positive Abnormal (NEG ) [facility] Work Phone: Comment on above: Note: T. vaginalis D NA detectedResults should be interpreted in conjunction with other clinical data.This test is intended for medical purposes only and is not valid for theevaluation of suspected sexual abuse or for other forensic purposes.This test has not been evaluated in women or in patients less than 16years of age.Responsible Observer: NADIA MCGUIRE ([id number]) Urine RBC's 2 TO 5 /HPF (0-4 ) [facility] Work Phone: Comment on above: Note: Reference rang e defined for non-centrifuged specimen.Responsible Observer: MAGALI YBARRA ([id number]) Urine WBC's None /HPF (0-5 ) [facility] Work Phone: Comment on above: Note: Responsible Ob wrapper and preserver: MAGALI YBARRA ([id number]) Urobilinogen,Ur Normal (NORM ) [facility] Work Phone: Comment on above: Note: Responsible Ob wrapper and preserver: MAGALI YBARRA ([id number]) Clostridium Difficile Toxin/ Antigenon 12-08-2021 C DIFF AG + TOXIN INDETERMINATE: Refle x testing to molecular method Abnormal NEGATIVE [facility] Interpretation and review of laboratory results Abnormal [facility] Specimen Description .[facility] CBC with Auto Differentialon 11-12-2021 Absolute Eos # 0.13 [facility] Absolute Immature Granulocyte [facility] Absolute Lymph # 1.19 [facility] Absolute Pettis # 0.61 [facility] Basophils (Bld) [#/Vol] 0.06 10*3/uL [facility] Basophils/100 WBC (Bld) 1 % 0 - 2 % B ON [facility] Eosinophils/100 WBC (Bld) 2 % 1 - 4 % [facility] Hematocrit (Bld) [Volume fraction] 45.4 % 36.3 - 47.1 % [facility] Hemoglobin (Bld) [Mass/Vol] 15.0 g/dL 11.9 - 15.1 g/dL [facility] Immature granulocytes/100 WBC (Bld) 0 % 0 [facility] Interpretation and review of laboratory results Abnormal [facility] Lymphocytes/100 WBC (Bld) 18 % Low 24 - 43 % [facility] MCH (RBC) [Entitic mass] 30.9 pg 25.2 - 33.5 pg [facility] MCHC (RBC) [Mass/Vol] 33.0 g/dL 28.4 - 34.8 g/dL [facility] MCV (RBC) [Entitic vol] 93.6 fL 82.6 - 102.9 fL [facility] Monocytes/100 WBC (Bld) 9 % 3 - 12 % B ON [facility] NRBC Automated 0.0 0.0 per 100 WBC [facility] Platelet distribution width (Bld) [Ratio] 13.8 % 11.8 - 14.4 % [facility] Platelet mean volume (Bld) [Entitic vol] 9.2 fL 8.1 - 13.5 fL [facility] Platelets (Bld) [#/Vol] 270 10*3/uL [facility] RBC (Bld) [#/Vol] 4.85 10*6/uL 3.95 - 5.11 m/uL [facility] Segmented neutrophils/100 WBC (Bld) 70 % High 36 - 65 % [facility] Segs Absolute 4.52 [facility] WBC (Bld) [#/Vol] 6.5 10*3/uL [facility] CMPon 11-12-2021 Albumin [Mass/Vol] 5.1 g/dL 3.5 - 5.2 g/dL [facility] Albumin/Globulin [Mass ratio] 2.0 {ratio} 1 - 2.5 [facility] ALP (Bld) [Catalytic activity/Vol] 57 U/L 35 - 104 U/L [facility] ALT [Catalytic activity/Vol] 12 U/L 5 - 33 U/L [facility] Anion gap [Moles/Vol] 10 mmol/L 9 - 17 mmol/L [facility] AST [Catalytic activity/Vol] 13 U/L NINF - 32 U/L [facility] Bilirubin [Mass/Vol] 0.17 mg/dL Low 0.3 - 1 .2 mg/dL [facility] Calcium [Mass/Vol] 9.6 mg/dL 8.6 - 10. 4 mg/dL [facility] Chloride [Moles/Vol] 101 mmol/L 98 - 10 7 mmol/L [facility] CO2 [Moles/Vol] 28 mmol/L 20 - 31 mmol/L [facility] Creatinine [Mass/Vol] 0.8 mg/dL 0.5 - 0.9 mg/dL [facility] Free PSA/Total PSA [Mass fraction] 7.7 g/dL 6.4 - 8.3 g/dL [facility] GFR >60 60 - PI NF mL/min [facility] GFR Non- >60 60 - PINF mL/min [facility] Glucose [Mass/Vol] 97 mg/dL 70 - 99 mg/dL [facility] Interpretation and review of laboratory results Abnormal [facility] Potassium [Moles/Vol] 3.8 mmol/L 3.7 - 5.3 mmol/L [facility] Sodium [Moles/Vol] 139 mmol/L 135 - 144 mmol/L [facility] Urea nitrogen (BldV) [Mass/Vol] 7 mg/dL 6 - 20 mg/dL [facility] Urea nitrogen/Creatinine (Bld) [Mass ratio] 9 9 - 20 [facility] COVID-19, Rapidon 11-12-2021 SARS-CoV-2 (COVID-19) RNA EVELIA+probe Ql (Unsp spec) Not detected Not Detected [facility] Comment on above: Rapid NAAT: The specimen is NEGATIVE for SARS-CoV-2, the novel coronavirus associated with COVID-19. The ID NOW COVID-19 assay is designed to detect the virus that causes COVID-19 in patients with signs and symptoms of infection who are suspected of COVID-19. An individual without symptoms of COVID-19 and who is not shedding SARS-CoV-2 virus would expect to have a negative (not detected) result in this assay. Negative results should be treated as presumptive and, if inconsistent with clinical signs and symptoms or necessary for patient management, should be tested with an alternative molecular assay. Negative results do not preclude SARS-CoV-2 infection and should not be used as the sole basis for patient management decisions. Fact sheet for Healthcare Providers: https://www.fda.gov/media/394412/download Fact sheet for Patients: https://www.fda.gov/media/988809/download Methodology: Isothermal Nucleic Acid Amplification Specimen Description .NASOPHARYNGEAL SWAB [facility] CT ABDOMEN PELVIS W IV CONTR AST Additional Contrast? Noneon 11-12-2021 No acute abnormality [facility]ID[facility] EXAMINATION: CT OF THE ABDOMEN AND PELVIS WITH CONTRAST 11/12/2021 10:26 am TECHNIQUE: CT of the abdomen and pelvis was performed with the administration of intravenous contrast. Multiplanar reformatted images are provided for review. Automated exposure control, iterative reconstruction, and/or weight based adjustment of the mA/kV was utilized to reduce the radiation dose to as low as reasonably achievable. COMPARISON: 06/06/2021 HISTORY: ORDERING SYSTEM PROVIDED HISTORY: LLQ pain TECHNOLOGIST PROVIDED HISTORY: LLQ pain Decision Support Exception - unselect if not a suspected or confirmed emergency medical condition->Emergency Medical Condition (MA) FINDINGS: Lower Chest: Clear Organs: The visualized upper abdominal organs are grossly unremarkable in appearance and stable GI/Bowel: Nonobstructed bowel-gas pattern and normal appendix Pelvis: Bladder is unremarkable in appearance and there is no evidence for free air or free fluid Peritoneum/Retroperitone um: Negative for aneurysm Bones/Soft Tissues: No acute abnormality [facility] Torres Rivera MD - 11/12/2021 EXAMINATION: CT OF THE ABDOMEN AND PELVIS WITH CONTRAST 11/12/2021 10:26 am TECHNIQUE: CT of the abdomen and pelvis was performed with the administration of intravenous contrast. Multiplanar reformatted images are provided for review. Automated exposure control, iterative reconstruction, and/or weight based adjustment of the mA/kV was utilized to reduce the radiation dose to as low as reasonably achievable. COMPARISON: 06/06/2021 HISTORY: ORDERING SYSTEM PROVIDED HISTORY: LLQ pain TECHNOLOGIST PROVIDED HISTORY: LLQ pain Decision Support Exception - unselect if not a suspected or confirmed emergency medical condition->Emergency Medical Condition (MA) FINDINGS: Lower Chest: Clear Organs: The visualized upper abdominal organs are grossly unremarkable in appearance and stable GI/Bowel: Nonobstructed bowel-gas pattern and normal appendix Pelvis: Bladder is unremarkable in appearance and there is no evidence for free air or free fluid Peritoneum/Retroperitone um: Negative for aneurysm Bones/Soft Tissues: No acute abnormality IMPRESSION: No acute abnormality [facility] Phone: Radiology Study observation (narrative) [facility] Phone: CT ABDOMEN PELVIS W IV CONTR AST Additional Contrast? NoneOrdered By: Torres Rivera on 11-12-2021 [facility] Phone: HCG Qualitative, Serumon hCG Qual Negative NEGATIVE [facility] Comment on above: Specimens with hCG l evels near the threshold of the test (25 mIU/mL) may give a negative or indeterminate result. In such cases, another test should be performed with a new specimen in 48-72 hours. If early is suspected clinically in this setting, correlation with quantitative serum b-hCG level is suggested. [employer] has confirmed the use of plasma for this test. This has not been cleared or approved by the U.S. Food and Drug Administration. The FDA has determined that such clearance is not necessary. [facility] Laboratory - Chemistry and C hemistry - challengeon 11-12-2021 GFR/1.73 sq M.predicted MDRD (S/P/Bld) [Vol rate/Area] [facility] Comment on above: Average GFR for 30-3 9 years old: 107 mL/min/1.73sq m Chronic Kidney Disease: <60 mL/min/1.73sq m Kidney failure: <15 mL/min/1.73sq m eGFR calculated using average adult body mass. Additional eGFR calculator available at: http://www.Patsnap/multiple_crcl_2012.htm Stage 1: Some kidney damage normal GFR Stage 2: Mild kidney damage GFR 60-89 Stage 3: Moderate kidney damage GFR 30-59 Stage 4: Severe kidney damage GFR 15-29 Stage 5: Severe kidney damage GFR <15 ESRD - chronic treatment by dialysis or transplant Urinalysis with Microscopico n 11-12-2021 - [facility] Bacteria, UA TRACE Abnormal None [facility] Bilirubin Urine Negative NEGATIVE [facility] [employer] Color, UA Yellow Yellow [facility] Epithelial Cells UA 0 TO 2 [facility] Glucose, Ur Negative NEGATIVE [facility] Interpretation and review of laboratory results Abnormal [facility] Ketones Ql (U) Negative NEGATIVE [facility] Leukocyte esterase Test strip Ql (U) TRACE Abnormal NEGATIVE [facility] Mucus, UA TRACE Abnormal None [facility] Drippler Nitrite, Urine Negative NEGATIVE [facility] Drippler pH, UA 7.0 5 - 9 [facility] Protein, UA Negative NEGATIVE [facility] RBC, UA None [facility] Specific [place], UA Low 1.01 - 1.02 [facility] Turbidity UA Clear Clear [facility] Urine Hgb Negative NEGATIVE [facility] Urobilinogen, Urine Normal Normal [facility] WBC, UA 2 TO 5 [facility] , Urineon 2 Beta HCG ( test) Ql (U) Negative NEGATIVE [facility] Comment on above: Specimens with hCG l evels near the threshold of the test (25 mIU/mL) may give a negative or indeterminate result. In such cases, another test should be performed with a new specimen in 48-72 hours. If early is suspected clinically in this setting, correlation with quantitative serum b-hCG level is suggested. [employer] has confirmed the use of plasma for this test. This has not been cleared or approved by the U.S. Food and Drug Administration. The FDA has determined that such clearance is not necessary. [facility] Urinalysis with Microscopico n 09-01-2021 - [facility] Bacteria, UA TRACE Abnormal None [facility] Bilirubin Urine Negative NEGATIVE [facility] Color, UA Yellow Yellow [facility] Epithelial Cells UA 5 TO 10 [facility] Glucose, Ur Negative NEGATIVE [facility] Interpretation and review of laboratory results Abnormal [facility] Ketones Ql (U) Negative NEGATIVE [facility] Leukocyte esterase Test strip Ql (U) Negative NEGATIVE [facility] Nitrite, Urine Negative NEGATIVE [facility] pH, UA 7.0 [facility] Protein, UA Negative NEGATIVE [facility] RBC, UA 0 TO 2 [facility] Specific [place], UA 1.015 [facility] Turbidity UA Clear Clear [facility] Urine Hgb Negative NEGATIVE [facility] [facility] Urobilinogen, Urine Normal Normal [facility] WBC, UA 0 TO 2 [facility] CBC with Auto Differentialon 08-11-2021 Absolute Eos # 0.19 [facility] th Absolute Immature Granulocyte 0.05 [facility] Absolute Lymph # 1.42 [facility] Absolute Pettis # 0.84 [facility] Basophils (Bld) [#/Vol] 0.06 10*3/uL [facility] Basophils/100 WBC (Bld) 0 % 0 - 2 % [facility] Eosinophils/100 WBC (Bld) 1 % 1 - 4 % [facility] Hematocrit (Bld) [Volume fraction] 42.2 % 36.3 - 47.1 % [facility] Hemoglobin.gastrointest inal spec 1 Ql (Stl) 13.7 g/dL 11.9 - 15.1 g/dL [facility] Immature granulocytes/100 WBC (Bld) 0 % 0 [facility] Interpretation and review of laboratory results Abnormal [facility] Lymphocytes/100 WBC (Bld) 11 % Low 24 - 43 % [facility] MCH (RBC) [Entitic mass] 30.9 pg 25.2 - 33.5 pg [facility] MCHC (RBC) [Mass/Vol] 32.5 g/dL 28.4 - 34.8 g/dL [facility] MCV (RBC) [Entitic vol] 95.3 fL 82.6 - 102.9 fL [facility] Monocytes/100 WBC (Bld) 6 % 3 - 12 % [facility] NRBC Automated 0.0 0.0 per 100 WBC [facility] Platelet distribution width (Bld) [Ratio] 13.4 % 11.8 - 14.4 % [facility] Platelet mean volume (Bld) [Entitic vol] 9.2 fL 8.1 - 13.5 fL [facility] Platelets (Bld) [#/Vol] 298 10*3/uL [facility] RBC (Bld) [#/Vol] 4.43 10*6/uL 3.95 - 5.11 m/uL [facility] Segmented neutrophils/100 WBC (Bld) 82 % High 36 - 65 % [facility] Segs Absolute 10.86 [facility] (Bld[facility] [#/Vol] 13.4 10*3/uL [facility] COVID-19, Rapidon 08-11-2021 SARS-CoV-2 (COVID-19) RNA EVELIA+probe Ql (Unsp spec) Not detected Not Detected [facility] Comment on above: Rapid NAAT: The specimen is NEGATIVE for SARS-CoV-2, the novel coronavirus associated with COVID-19. The ID NOW COVID-19 assay is designed to detect the virus that causes COVID-19 in patients with signs and symptoms of infection who are suspected of COVID-19. An individual without symptoms of COVID-19 and who is not shedding SARS-CoV-2 virus would expect to have a negative (not detected) result in this assay. Negative results should be treated as presumptive and, if inconsistent with clinical signs and symptoms or necessary for patient management, should be tested with an alternative molecular assay. Negative results do not preclude SARS-CoV-2 infection and should not be used as the sole basis for patient management decisions. Fact sheet for Healthcare Providers: https://www.fda.gov/media/333959/download Fact sheet for Patients: https://www.fda.gov/media/324843/download Methodology: Isothermal Nucleic Acid Amplification Specimen Description .NASOPHARYNGEAL SWAB [facility] Comprehensive Metabolic Pane juan 08-11-2021 Albumin [Mass/Vol] 4.2 g/dL 3.5 - 5.2 g/dL [facility] Albumin/Globulin [Mass ratio] 1.9 {ratio} [facility] ALP (Bld) [Catalytic activity/Vol] 50 U/L 35 - 104 U/L [facility] ALT [Catalytic activity/Vol] 13 U/L 5 - 33 U/L [facility] Anion gap [Moles/Vol] 7 mmol/L Low 9 - 17 mmol/L [facility] AST [Catalytic activity/Vol] 16 U/L <32 [facility] Bilirubin [Mass/Vol] 0.38 mg/dL 0.3 - 1 .2 mg/dL [facility] Calcium [Mass/Vol] 8.8 mg/dL 8.6 - 10. 4 mg/dL [facility] Chloride [Moles/Vol] 104 mmol/L 98 - 10 7 mmol/L [facility] CO2 [Moles/Vol] 27 mmol/L 20 - 31 mmol/L [facility] Creatinine [Mass/Vol] 0.72 mg/dL 0.50 - 0.90 mg/dL [facility] Free PSA/Total PSA [Mass fraction] 6.4 g/dL 6.4 - 8.3 g/dL [facility] GFR >60 >60 mL/min [facility] GFR Non- >60 >60 mL/min [facility] Glucose [Mass/Vol] 102 mg/dL High 70 - 99 mg/dL [facility] Interpretation and review of laboratory results Abnormal [facility] Potassium [Moles/Vol] 3.6 mmol/L Low 3.7 - 5.3 mmol/L [facility] [employer] Sodium [Moles/Vol] 138 mmol/L 135 - 144 mmol/L [facility] [employer] Urea nitrogen (BldV) [Mass/Vol] 6 mg/dL 6 - 20 mg/dL [facility] [employer] Urea nitrogen/Creatinine (Bld) [Mass ratio] 8 Low [facility] [employer] HCG Qualitative, Serumon hCG Qual Negative NEGATIVE [facility] Comment on above: Specimens with hCG l evels near the threshold of the test (25 mIU/mL) may give a negative or indeterminate result. In such cases, another test should be performed with a new specimen in 48-72 hours. If early is suspected clinically in this setting, correlation with quantitative serum b-hCG level is suggested. [place] has confirmed the use of plasma for this test. This has not been cleared or approved by the U.S. Food and Drug Administration. The FDA has determined that such clearance is not necessary. [facility] [employer] Laboratory - Chemistry and C hemistry - challengeon 08-11-2021 GFR/1.73 sq M.predicted MDRD (S/P/Bld) [Vol rate/Area] [facility] Comment on above: Average GFR for 30-3 9 years old: 107 mL/min/1.73sq m Chronic Kidney Disease: <60 mL/min/1.73sq m Kidney failure: <15 mL/min/1.73sq m eGFR calculated using average adult body mass. Additional eGFR calculator available at: http://www.Spontacts.Lipperhey/multiple_crcl_2012.htm Stage 1: Some kidney damage normal GFR Stage 2: Mild kidney damage GFR 60-89 Stage 3: Moderate kidney damage GFR 30-59 Stage 4: Severe kidney damage GFR 15-29 Stage 5: Severe kidney damage GFR <15 ESRD - chronic treatment by dialysis or transplant Lactic Acidon 08-11-2021 Lactate [Moles/Vol] 1.1 mmol/L 0.5 - 2. 2 mmol/L [facility] [employer] Lipaseon 08-11-2021 Lipase [Catalytic activity/Vol] 13 U/L 13 - 60 U/L [facility] [employer] Microscopic Urinalysison - [facility] [employer] Bacteria, UA TRACE Abnormal [facility] Epithelial Cells UA 0 TO 2 [facility] Interpretation and review of laboratory results Abnormal [facility] RBC, UA 0 TO 2 [facility] WBC, UA 0 TO 2 [facility] No Panel Informationon 08-11 [facility] Rapid influenza A/B antigens on 08-11-2021 Flu A Antigen Negative NEGATIVE [facility] h Comment on above: for Influenza A Anti gen Flu B Antigen Negative NEGATIVE [facility] Comment on above: for Influenza B Anti gen. [facility] TSH with Reflexon 08-11-2021 TSH Qn 0.62 m[IU]/L [facility] Urinalysis with Reflex to Cu ltureon 08-11-2021 Bilirubin Urine Negative NEGATIVE [facility] Color, UA Yellow Yellow [facility] Glucose, Ur Negative NEGATIVE [facility] Interpretation and review of laboratory results Abnormal [facility] Ketones Ql (U) Negative NEGATIVE [facility] Leukocyte esterase Test strip Ql (U) Negative NEGATIVE [facility] Nitrite, Urine Negative NEGATIVE [facility] pH, UA 7.0 [facility] Protein, UA Negative NEGATIVE [facility] Specific [place], UA <1.005 Low [facility] Turbidity UA Clear Clear [facility] Urine Hgb Negative NEGATIVE [facility] Urobilinogen, Urine Normal Normal [facility] Laboratory - Chemistry and C hemistry - challengeOrdered By: Traci Dennison on 07-17-2021 Albumin [Mass/Vol] 4.5 g/dL (3.5-5.2 ) [facility] Work Phone: Comment on above: Note: Responsible Ob wrapper and preserver: CCEV AUTOFILE (3002) ALT [Catalytic activity/Vol] 13 U/L (5-33 ) [facility] Work Phone: Comment on above: Note: Responsible Ob wrapper and preserver: CCEV AUTOFILE (3002) Anion gap [Moles/Vol] 11 mmol/L (9-17 ) a [facility] Work Phone: Comment on above: Note: Responsible Ob wrapper and preserver: CCEV AUTOFILE (3002) AST [Catalytic activity/Vol] 16 U/L (<32 ) [facility] Work Phone: Comment on above: Note: Responsible Ob wrapper and preserver: CCEV AUTOFILE (3002) Bilirubin [Mass/Vol] 0.28 mg/dL Low (0.3-1.2 ) [facility] Work Phone: Comment on above: Note: Responsible Ob wrapper and preserver: CCEV AUTOFILE (3002) Calcium [Mass/Vol] 9.2 mg/dL (8.6-10.4 ) [facility] Work Phone: Comment on above: Note: Responsible Ob wrapper and preserver: CCEV AUTOFILE (3002) Chloride [Moles/Vol] 102 mmol/L (98-107 ) [facility] Work Phone: Comment on above: Note: Responsible Ob wrapper and preserver: CCEV AUTOFILE (3002) Cholesterol [Mass/Vol] 129 mg/dL (<200 ) [facility] Work Phone: Comment on above: Note: Cholesterol Gu idelines:<200 [id number] Borderline>240 UndesirableResponsible Observer: CCEV AUTOFILE (3002) Cholesterol.total/Le sterol in HDL [Mass ratio] 3.4 {ratio} (<5 ) [facility] Work Phone: Comment on above: Note: Responsible Ob wrapper and preserver: CCEV AUTOFILE (3002) CO2 [Moles/Vol] 27 mmol/L (20-31 ) [facility] Work Phone: Comment on above: Note: Responsible Ob wrapper and preserver: CCEV AUTOFILE (3002) Cobalamin (Vitamin B12) [Mass/Vol] 381 pg/mL (232-1245 ) [facility] Work Phone: Comment on above: Note: Responsible Ob wrapper and preserver: CEEV AUTOFILE (3003) Creatinine [Mass/Vol] 0.65 mg/dL (0.50- 0.90 ) [facility] Work Phone: Comment on above: Note: Responsible Ob wrapper and preserver: CCEV AUTOFILE (3002) Glucose [Mass/Vol] 72 mg/dL (70-99 ) [facility] Work Phone: Comment on above: Note: Responsible Ob wrapper and preserver: CCEV AUTOFILE (3002) Magnesium [Mass/Vol] 38 mg/dL Low (>40 ) [facility] Work Phone: Comment on above: Note: HDL Guidelines :<40 [id number] Borderline>59 DesirableResponsible Observer: CCEV AUTOFILE (3002) Magnesium [Mass/Vol] 76 mg/dL (0-130 ) [facility] Work Phone: Comment on above: Note: LDL Guidelines :<100 [id number] Near to/above [id number] Borderline>159 UndesirableDirect (measured) LDL and calculated LDL are not interchangeable tests.Responsible Observer: CCEV AUTOFILE (3002) Magnesium [Mass/Vol] 75 mg/dL (<150 ) [facility] Work Phone: Comment on above: Note: Triglyceride G uidelines:<150 [id number] High>499 Very highBased on AHA Guidelines for fasting triglyceride, January 2012.Responsible Observer: CCEV AUTOFILE (3002) Potassium [Moles/Vol] 4.5 mmol/L (3.7-5.3 ) a [facility] Work Phone: Comment on above: Note: Responsible Ob wrapper and preserver: CCEV AUTOFILE (3002) Protein [Mass/Vol] 7.0 g/dL (6.4-8.3 ) [facility] Work Phone: Comment on above: Note: Responsible Ob wrapper and preserver: CCEV AUTOFILE (3002) Sodium [Moles/Vol] 140 mmol/L (135-144 ) [facility] Work Phone: Comment on above: Note: Responsible Ob wrapper and preserver: CCEV AUTOFILE (3002) Urea nitrogen [Mass/Vol] 7 mg/dL (6-20 ) [facility] Work Phone: Comment on above: Note: Responsible Ob wrapper and preserver: CCEV AUTOFILE (3002) Laboratory - Hematology and Cell countsOrdered By: Traci Dennison on 07-17-2021 Basophils/100 WBC (Bld) 1 % (0-2 ) [facility] Comment on above: Note: Responsible Ob wrapper and preserver: XNV AUTOFILE (3018) Eosinophils (Bld) [#/Vol] 0.14 10*3/uL (0.00-0.44 ) [facility] Work Phone: Comment on above: Note: Responsible Ob wrapper and preserver: XNV AUTOFILE (3018) Eosinophils/100 WBC (Bld) 2 % (1-4 ) [facility] Work Phone: Comment on above: Note: Responsible Ob wrapper and preserver: XNV AUTOFILE (3018) Erythrocyte distribution width (RBC) [Ratio] 14.5 % High (11.8-14.4 ) [facility] Work Phone: Comment on above: Note: Responsible Ob wrapper and preserver: XNV AUTOFILE (3018) Hematocrit (Bld) [Volume fraction] 46.3 % (36.3-47.1 ) [facility] Work Phone: Comment on above: Note: Responsible Ob wrapper and preserver: XNV AUTOFILE (3018) Hemoglobin (Bld) [Mass/Vol] 14.3 g/dL (11.9-15.1 ) [facility] Work Phone: Comment on above: Note: Responsible Ob wrapper and preserver: XNV AUTOFILE (3018) Immature granulocytes/100 WBC (Bld) 0 % (0 ) [facility] Work Phone: Comment on above: Note: Responsible Ob wrapper and preserver: XNV AUTOFILE (3018) Lymphocytes (Bld) [#/Vol] 1.65 10*3/uL (1.10-3.70 ) [facility] Work Phone: Comment on above: Note: Responsible Ob wrapper and preserver: XNV AUTOFILE (3018) Lymphocytes/100 WBC (Bld) 20 % Low (24-43 ) [facility] Work Phone: Comment on above: Note: Responsible Ob wrapper and preserver: XNV AUTOFILE (3018) MCH (RBC) [Entitic mass] 30.4 pg (25.2-33.5 ) [facility] Work Phone: Comment on above: Note: Responsible Ob wrapper and preserver: XNV AUTOFILE (3018) MCHC (RBC) [Mass/Vol] 30.9 g/dL (28.4- 34.8 ) [facility] Work Phone: Comment on above: Note: Responsible Ob wrapper and preserver: XNV AUTOFILE (3018) MCV (RBC) [Entitic vol] 98.3 fL (82. 6-102. 9 ) [facility] Work Phone: Comment on above: Note: Responsible Ob wrapper and preserver: XNV AUTOFILE (3018) Monocytes (Bld) [#/Vol] 0.55 10*3/uL (0.1 0-1.20 ) [facility] Work Phone: Comment on above: Note: Responsible Ob wrapper and preserver: XNV AUTOFILE (3018) Monocytes/100 WBC (Bld) 7 % (3-12 ) [facility] Comment on above: Note: Responsible Ob wrapper and preserver: XNV AUTOFILE (3018) Platelet mean volume (Bld) [Entitic vol] 10.2 fL (8.1-13.5 ) [facility] Work Phone: Comment on above: Note: Responsible Ob wrapper and preserver: XNV AUTOFILE (3018) Platelets (Bld) [#/Vol] 326 10*3/uL (138-453 ) [facility] Work Phone: Comment on above: Note: Responsible Ob wrapper and preserver: XNV AUTOFILE (3018) RBC (Bld) [#/Vol] 4.71 10*6/uL (3.95-5.11 ) [facility] Work Phone: Comment on above: Note: Responsible Ob wrapper and preserver: XNV AUTOFILE (3018) RBC morphology finding Nom (Bld) ANISOCYTOSIS PRESENT [facility] Work Phone: Comment on above: Note: Responsible Ob wrapper and preserver: XNV AUTOFILE (3018) Segmented neutrophils/100 WBC (Bld) 70 % High (36-65 ) [facility] Work Phone: Comment on above: Note: Responsible Ob wrapper and preserver: XNV AUTOFILE (3018) WBC (Bld) [#/Vol] 8.3 10*3/uL (3.5-11.3 ) [facility] Work Phone: Comment on above: Note: Responsible Ob wrapper and preserver: XNV AUTOFILE (3018) No Panel InformationOrdered By: Traci Dennison on 07-17-2021 (cont.) See Note [facility] Work Phone: Comment on above: Note: Average GFR fo r 30-39 years old:107 mL/min/1.73sq mChronic Kidney Disease:<60 mL/min/1.73sq mKidney failure:<15 mL/min/1.73sq meGFR calculated using average adult body mass. Additional eGFR calculatoravailable at:http://www.Spontacts.Lipperhey/multiple_crcl_2012.htmResponsible Observer: CCEV AUTOFILE (3002) Abs. Basophil 0.07 k/uL (0.00-0.20 ) [facility] Work Phone: Comment on above: Note: Responsible Ob wrapper and preserver: XNV AUTOFILE (3018) Abs.Imm.Granulocyte 0.03 k/uL (0.00-0. 30 ) [facility] Work Phone: Comment on above: Note: Responsible Ob wrapper and preserver: XNV AUTOFILE (3018) Abs.Neutrophil (Seg) 5.89 k/uL (1.50-8 .10 ) [facility] Work Phone: Comment on above: Note: Responsible Ob wrapper and preserver: XNV AUTOFILE (3018) Albumin/Glob Ratio 1.8 (1.0-2.5 ) [facility] Work Phone: Comment on above: Note: Responsible Ob wrapper and preserver: CCEV AUTOFILE (3002) Alkaline Phos 55 U/L (35-104 ) [facility] Work Phone: Comment on above: Note: Responsible Ob wrapper and preserver: CCEV AUTOFILE (3002) Folic Acid 15.6 ng/mL (>4.8 ) [facility] Work Phone: Comment on above: Note: Responsible Ob wrapper and preserver: CEEV AUTOFILE (3003) GFR, Amer >60 mL/min (>60 ) [facility] Work Phone: Comment on above: Note: Responsible Ob wrapper and preserver: CCEV AUTOFILE (3002) GFR,non Amer >60 mL/min (>60 ) [facility] Work Phone: Comment on above: Note: Responsible Ob wrapper and preserver: CCEV AUTOFILE (3002) NRBC Automated 0.0 per_100_WBC (0.0 ) [facility] Work Phone: Comment on above: Note: Responsible Ob wrapper and preserver: XNV AUTOFILE (3018) Reported Physicians See Note [facility] Work Phone: Comment on above: Note: Reported Physi cians:Ordering: Saeid DennisonaAttending: Saeid DennisonaReferring: Traci Dennison Thyroid Stim. Horm. 0.74 uIU/mL (0.30-5. 00 ) [facility] Work Phone: Comment on above: Note: Responsible Ob wrapper and preserver: CCEV AUTOFILE (3002) Vitamin D 25 [place] 9.8 ng/mL Low (>29.9 ) [facility] Work Phone: Comment on above: Note: Reference Rang e:Vitamin D status RangeDeficiency <20 ng/mLMild Deficiency 20-30 ng/mLSufficiency 30-100 ng/mLToxicity >100 ng/mLResponsible Observer: CEEV AUTOFILE (3003) No Panel Informationon 07-03 No fracture, dislocation, or significant degenerative change. [facility]: THREE XRAY VIEWS OF THE RIGHT SHOULDER; TWO XRAY VIEWS OF THE RIGHT CLAVICLE 07/03/2021 10:34 am COMPARISON: None. HISTORY: ORDERING SYSTEM PROVIDED HISTORY: pain TECHNOLOGIST PROVIDED HISTORY: pain FINDINGS: No fracture or dislocation. The glenohumeral and acromioclavicular joints are preserved. [facility] Lindavidhiissa Amrit P - 07/03/2021 EXAMINATION: THREE XRAY VIEWS OF THE RIGHT SHOULDER; TWO XRAY VIEWS OF THE RIGHT CLAVICLE 07/03/2021 10:34 am COMPARISON: None. HISTORY: ORDERING SYSTEM PROVIDED HISTORY: pain TECHNOLOGIST PROVIDED HISTORY: pain FINDINGS: No fracture or dislocation. The glenohumeral and acromioclavicular joints are preserved. IMPRESSION: No fracture, dislocation, or significant degenerative change. [facility] Work [facility]: No Panel InformationOrdered By: Amrit Hayes on 07-03-2021 [employer] Work Phone: XR CLAVICLE RIGHTon 07-04-19 Radiology Study observation (narrative) [facility] Work Phone: XR SHOULDER RIGHT (MIN 2 VIE WS)on 07-03-2021 Radiology Study observation (narrative) [facility] Work Phone: CBC with Auto Differentialon 06-06-2021 Absolute Eos # 0.07 [facility] th Absolute Immature Granulocyte 0.04 [facility] Absolute Lymph # 1.54 [facility] Absolute Pettis # 0.88 [facility] lth Basophils (Bld) [#/Vol] 0.06 10*3/uL [facility] Basophils/100 WBC (Bld) 1 % 0 - 2 % [facility] Eosinophils/100 WBC (Bld) 1 % 1 - 4 % [facility] Hematocrit (Bld) [Volume fraction] 43.0 % 36.3 - 47.1 % [facility] Hemoglobin.gastrointest inal spec 1 Ql (Stl) 14.0 g/dL 11.9 - 15.1 g/dL [facility] Immature granulocytes/100 WBC (Bld) 0 % 0 [facility] Interpretation and review of laboratory results Abnormal [facility] Lymphocytes/100 WBC (Bld) 13 % Low 24 - 43 % [facility] MCH (RBC) [Entitic mass] 30.7 pg 25.2 - 33.5 pg [facility] MCHC (RBC) [Mass/Vol] 32.6 g/dL 28.4 - 34.8 g/dL [facility] MCV (RBC) [Entitic vol] 94.3 fL 82.6 - 102.9 fL [facility] Monocytes/100 WBC (Bld) 7 % 3 - 12 % M [facility] NRBC Automated 0.0 0.0 per 100 WBC [facility] Platelet distribution width (Bld) [Ratio] 14.3 % 11.8 - 14.4 % [facility] Platelet mean volume (Bld) [Entitic vol] 9.5 fL 8.1 - 13.5 fL [facility] Platelets (Bld) [#/Vol] 247 10*3/uL [facility] RBC (Bld) [#/Vol] 4.56 10*6/uL 3.95 - 5.11 m/uL [facility] Segmented neutrophils/100 WBC (Bld) 78 % High 36 - 65 % [facility] Segs Absolute 9.44 High [facility] WBC (Bld) [#/Vol] 12.0 10*3/uL High [facility] CT ABDOMEN PELVIS W IV CONTR AST Additional Contrast? Noneon 06-06-2021 No acute abdominal o r pelvic findings. [facility] EXAMINATION: CT OF THE ABDOMEN AND PELVIS WITH CONTRAST 06/06/2021 3:43 pm TECHNIQUE: CT of the abdomen and pelvis was performed with the administration of intravenous contrast. Multiplanar reformatted images are provided for review. Dose modulation, iterative reconstruction, and/or weight based adjustment of the mA/kV was utilized to reduce the radiation dose to as low as reasonably achievable. COMPARISON: CT abdomen/pelvis dated 10 January 2021 HISTORY: ORDERING SYSTEM PROVIDED HISTORY: ruq pain TECHNOLOGIST PROVIDED HISTORY: ruq pain Decision Support Exception - unselect if not a suspected or confirmed emergency medical condition->Emergency Medical Condition (MA) FINDINGS: Lower Chest: Mild bibasilar atelectasis. No acute airspace infiltrate or pleural effusion. Organs: The liver and gallbladder are normal. The spleen and pancreas are normal. Adrenal glands are normal. Both kidneys enhance normally. No nephrolithiasis or hydronephrosis. GI/Bowel: The distal esophagus and stomach are normal. Small bowel loops are normal without evidence of wall thickening or obstruction. The colon appears normal. The appendix is normal. Pelvis: The urinary bladder is normal. Uterus is normal. Stable appearance of surgical clips in the pelvis may be related to tubal ligation. Adnexal structures are within normal limits. No free fluid in the pelvis. Peritoneum/Retroperitone um: The aorta is normal caliber. No lymphadenopathy. Bones/Soft Tissues: No osseous abnormality [facility] Amrit Maloney P - 06/06/2021 EXAMINATION: CT OF THE ABDOMEN AND PELVIS WITH CONTRAST 06/06/2021 3:43 pm TECHNIQUE: CT of the abdomen and pelvis was performed with the administration of intravenous contrast. Multiplanar reformatted images are provided for review. Dose modulation, iterative reconstruction, and/or weight based adjustment of the mA/kV was utilized to reduce the radiation dose to as low as reasonably achievable. COMPARISON: CT abdomen/pelvis dated 10 January 2021 HISTORY: ORDERING SYSTEM PROVIDED HISTORY: q pain TECHNOLOGIST PROVIDED HISTORY: ruq pain Decision Support Exception - unselect if not a suspected or confirmed emergency medical condition->Emergency Medical Condition (MA) FINDINGS: Lower Chest: Mild bibasilar atelectasis. No acute airspace infiltrate or pleural effusion. Organs: The liver and gallbladder are normal. The spleen and pancreas are normal. Adrenal glands are normal. Both kidneys enhance normally. No nephrolithiasis or hydronephrosis. GI/Bowel: The distal esophagus and stomach are normal. Small bowel loops are normal without evidence of wall thickening or obstruction. The colon appears normal. The appendix is normal. Pelvis: The urinary bladder is normal. Uterus is normal. Stable appearance of surgical clips in the pelvis may be related to tubal ligation. Adnexal structures are within normal limits. No free fluid in the pelvis. Peritoneum/Retroperitone um: The aorta is normal caliber. No lymphadenopathy. Bones/Soft Tissues: No osseous abnormality IMPRESSION: No acute abdominal or pelvic findings. [facility] Work Phone: Radiology Study observation (narrative) [employer] [facility] Work Phone: CT ABDOMEN PELVIS W IV CONTR AST Additional Contrast? NoneOrdered By: Amrit Hayes on 06-06-2021 [facility] Work Phone: Comprehensive Metabolic Pane l w/ Reflex to MGon 06-06-2021 Albumin [Mass/Vol] 4.5 g/dL 3.5 - 5.2 g/dL [facility] Albumin/Globulin [Mass ratio] 1.7 {ratio} [facility] ALP (Bld) [Catalytic activity/Vol] 53 U/L 35 - 104 U/L [facility] ALT [Catalytic activity/Vol] 14 U/L 5 - 33 U/L [facility] Anion gap [Moles/Vol] 10 mmol/L 9 - 17 mmol/L [facility] AST [Catalytic activity/Vol] 14 U/L <32 [facility] Bilirubin [Mass/Vol] 0.26 mg/dL Low 0.3 - 1 .2 mg/dL [facility] Calcium [Mass/Vol] 9.1 mg/dL 8.6 - 10. 4 mg/dL [facility] Chloride [Moles/Vol] 103 mmol/L 98 - 10 7 mmol/L [facility] CO2 [Moles/Vol] 26 mmol/L 20 - 31 mmol/L [facility] Creatinine [Mass/Vol] 0.73 mg/dL 0.50 - 0.90 mg/dL [facility] Free PSA/Total PSA [Mass fraction] 7.1 g/dL 6.4 - 8.3 g/dL [facility] GFR >60 >60 mL/min Edxact GFR Non- >60 >60 mL/min [facility] Glucose [Mass/Vol] 92 mg/dL 70 - 99 mg/dL [facility] Interpretation and review of laboratory results Abnormal [facility] Potassium [Moles/Vol] 4.1 mmol/L 3.7 - 5.3 mmol/L [facility] Sodium [Moles/Vol] 139 mmol/L 135 - 144 mmol/L [facility] Urea nitrogen (BldV) [Mass/Vol] 7 mg/dL 6 - 20 mg/dL [facility] Urea nitrogen/Creatinine (Bld) [Mass ratio] 10 [facility] - Chemistry and C hemistry - challengeon 06-06-2021 GFR/1.73 sq M.predicted MDRD (S/P/Bld) [Vol rate/Area] [facility] [employer] Comment on above: Average GFR for 30-3 9 years old: 107 mL/min/1.73sq m Chronic Kidney Disease: <60 mL/min/1.73sq m Kidney failure: <15 mL/min/1.73sq m eGFR calculated using average adult body mass. Additional eGFR calculator available at: http://www.Patsnap/multiple_crcl_2012.htm Stage 1: Some kidney damage normal GFR Stage 2: Mild kidney damage GFR 60-89 Stage 3: Moderate kidney damage GFR 30-59 Stage 4: Severe kidney damage GFR 15-29 Stage 5: Severe kidney damage GFR <15 ESRD - chronic treatment by dialysis or transplant Lipaseon 06-06-2021 Lipase [Catalytic activity/Vol] 16 U/L 13 - 60 U/L [facility] Microscopic Urinalysison - [facility] Bacteria, UA 2+ Abnormal None [facility] Epithelial Cells UA 10 TO 20 [facility] [employer] Interpretation and review of laboratory results Abnormal [facility] Mucus, UA 2+ Abnormal None [facility] RBC, UA 0 TO 2 [facility] WBC, UA 0 TO 2 [facility] [employer] No Panel Informationon 06-06 [facility] , Urineon Beta HCG ( test) Ql (U) Negative NEGATIVE [facility] [employer] Comment on above: Specimens with hCG l evels near the threshold of the test (25 mIU/mL) may give a negative or indeterminate result. In such cases, another test should be performed with a new specimen in 48-72 hours. If early is suspected clinically in this setting, correlation with quantitative serum b-hCG level is suggested. [employer] has confirmed the use of plasma for this test. This has not been cleared or approved by the U.S. Food and Drug Administration. The FDA has determined that such clearance is not necessary. [facility] Urinalysison 06-06-2021 Bilirubin Urine Negative NEGATIVE [employer] [facility] Color, UA Yellow Yellow [facility] Glucose, Ur Negative NEGATIVE [facility] Interpretation and review of laboratory results Abnormal [facility] Ketones Ql (U) TRACE Abnormal NEGATIVE [facility] Leukocyte esterase Test strip Ql (U) Negative NEGATIVE [facility] Nitrite, Urine Negative NEGATIVE [facility] pH, UA 7.5 [facility] Protein, UA Negative NEGATIVE [facility] Specific [place], UA 1.020 [facility] Turbidity UA Clear Clear [facility] Urine Hgb Negative NEGATIVE [facility] Urobilinogen, Urine Normal Normal [facility] Laboratory - Microbiology an d Antimicrobial susceptibilityOrdered By: Traci Dennison on 04-29-2021 SARS-CoV-2 (COVID-19) RNA EVELIA+probe Ql (Resp) Not detected (Not Detected ) [facility] Work Phone: Comment on above: Note: This nucleic a edgar amplification test was developed and itsperformance characteristics determined by [facility]. Nucleic acid amplification tests include RT-PCR and TMA. This test has not been FDA cleared orapproved. This test has been authorized by FDA under anEmergency Use Authorization (EUA). This test is onlyauthorized for the duration of time the declaration thatcircumstances exist justifying the authorization of theemergency use of in vitro diagnostic tests for detection toFNBV-WwV-2 virus and/or diagnosis of COVID-19 infectionunder section 564(b)(1) of the Act, 21 U.S.C. 360bbb-3(b)(1), unless the authorization is terminated or revokedsooner.When diagnostic testing is negative, the possibility of afalse negative result should be considered in the contextof a patient's recent exposures and the presence ofclinical signs and symptoms consistent with COVID-19. Anindividual without symptoms of COVID-19 and who is notshedding SARS-CoV-2 virus would expect to have a negative(not detected) result in this assay. SARS-CoV-2 (COVID-19) RNA EVELIA+probe Ql (Unsp spec) Performed [facility] Work Phone: No Panel InformationOrdered By: Traci Dennison on 04-03-2021 Chlamydia Probe, Ur Negative (NEG ) [facility] Work Phone: Comment on above: Note: CHLAMYDIA TRAC HOMATIS DNA not detected by nucleic acid amplification.This test is intended for medical purposes only and is not valid for theevaluation of suspected sexual abuse or for other forensic purposes.In certain contexts, culture may be required to meet applicable laws andregulations for diagnosis of C. trachomatis and N. gonorrhoeae infections.Per 2014 CDC recommendations, this test does not include confirmation ofpositive results by an alternative nucleic acid target.Responsible Observer: CFORTYEIGH AUTOFILE ([id number]) Gonorrhea Probe, Ur Negative (NEG ) [facility] Work Phone: Comment on above: Note: NEISSERIA GONO RRHOEAE DNA not detected by nucleic acid amplification.This test is intended for medical purposes only and is not valid for theevaluation of suspected sexual abuse or for other forensic purposes.In certain contexts, culture may be required to meet applicable laws andregulations for diagnosis of C. trachomatis and N. gonorrhoeae infections.Per 2014 CDC recommendations, this test does not include confirmation ofpositive results by an alternative nucleic acid target.Responsible Observer: CFORTYEIGH AUTOFILE ([id number]) Reported Physicians See Note [facility] Work Phone: Comment on above: Note: Reported Physi cians:Ordering: Saeid DennisonaAttending: Saeid DennisonaReferring: Traci Dennison Source: .[facility] Work Phone: Comment on above: Note: Responsible Ob wrapper and preserver: KONSTANTIN SHELTON ([id number]) Trich Vag, Molecular Negative (NEG ) [facility] Work Phone: Comment on above: Note: T. vaginalis D NA not detectedResults should be interpreted in conjunction with other clinical data.This test is intended for medical purposes only and is not valid for theevaluation of suspected sexual abuse or for other forensic purposes.This test has not been evaluated in women or in patients less than 16years of age.Responsible Observer: NADIA MCGUIRE ([id number]) Vaginitis DNA Probe See Note [facility] Work Phone: Comment on above: Note: Specimen Descr iption .VAGINAL SWABSpecial Requests NOT REPORTEDDirect Exam POSITIVE for Gardnerella vaginalis.NEGATIVE for Kayla sp.NEGATIVE for Trichomonas vaginalisMethod of testing is a DNA probe intended for detection and identification ofCandida species, Gardnerella vaginalis, and Trichomonas vaginalis nucleic acidin vaginal fluid specimens from patients with symptoms of vaginitis/vaginosis.Report Status FINAL 1Responsible Observer: KONSTANTIN SHELTON ([id number]) Basic Metabolic PanelOrdered By: Serenity Will on 02-07-2021 Anion gap [Moles/Vol] 8 mmol/L Low 9 - 17 mmol/L [employer] Phone: Calcium [Mass/Vol] 8.5 mg/dL Low 8.6 - 10. 4 mg/dL [employer] Phone: Chloride [Moles/Vol] 106 mmol/L 98 - 10 7 mmol/L [employer] Phone: CO2 [Moles/Vol] 24 mmol/L 20 - 31 mmol/L [employer] Phone: Creatinine [Mass/Vol] 0.66 mg/dL 0.50 - 0.90 mg/dL [employer]ounce Phone: GFR >60 >60 mL/min [employer] Phone: GFR Non- >60 >60 mL/min [employer]ounce Phone: Glucose [Mass/Vol] 87 mg/dL 70 - 99 mg/dL [employer] Phone: Potassium [Moles/Vol] 4.0 mmol/L 3.7 - 5.3 mmol/L [employer] Phone: Sodium [Moles/Vol] 138 mmol/L 135 - 144 mmol/L [employer] Phone: Urea nitrogen (BldV) [Mass/Vol] 5 mg/dL Low 6 - 20 mg/dL [employer] Phone: Urea nitrogen/Creatinine (Bld) [Mass ratio] 8 Low Pounce Phone: CBCOrdered By: Serenity stevens on 02-07-2021 Hematocrit (Bld) [Volume fraction] 41.9 % 36.3 - 47.1 % Pounce Phone: Hemoglobin.gastrointest inal spec 1 Ql (Stl) 13.6 g/dL 11.9 - 15.1 g/dL [employer]ounce Phone: MCH (RBC) [Entitic mass] 30.1 pg 25.2 - 33.5 pg Pounce Phone: MCHC (RBC) [Mass/Vol] 32.5 g/dL 28.4 - 34.8 g/dL Pounce Phone: MCV (RBC) [Entitic vol] 92.7 fL 82.6 - 102.9 fL [employer] Phone: NRBC Automated 0.0 0.0 per 100 WBC Pounce Phone: Platelet distribution width (Bld) [Ratio] 14.3 % 11.8 - 14.4 % Pounce Phone: Platelet mean volume (Bld) [Entitic vol] 9.3 fL 8.1 - 13.5 fL [employer] Phone: Platelets (Bld) [#/Vol] 217 10*3/uL [employer] Phone: RBC (Bld) [#/Vol] 4.52 10*6/uL 3.95 - 5.11 m/uL Pounce Phone: WBC (Bld) [#/Vol] 10.3 10*3/uL Pounce Phone: Pounce Phone: HCG Qualitative, SerumOrdere d By: Serenity Will on 02-07-2021 hCG Qual Negative NEGATIVE Pounce Phone: Comment on above: Specimens with hCG l evels near the threshold of the test (25 mIU/mL) may give a negative or indeterminate result. In such cases, another test should be performed with a new specimen in 48-72 hours. If early is suspected clinically in this setting, correlation with quantitative serum b-hCG level is suggested. [employer] has confirmed the use of plasma for this test. This has not been cleared or approved by the U.S. Food and Drug Administration. The FDA has determined that such clearance is not necessary. [employer]ounce Phone: Hepatic function panelOrdere d By: Serenity Will on 02-07-2021 Albumin [Mass/Vol] 4.1 g/dL 3.5 - 5.2 g/dL [employer] Phone: Albumin/Globulin [Mass ratio] 1.5 {ratio} [employer]ounce Phone: ALP (Bld) [Catalytic activity/Vol] 48 U/L 35 - 104 U/L [employer] Phone: ALT [Catalytic activity/Vol] 13 U/L 5 - 33 U/L [employer] Phone: AST [Catalytic activity/Vol] 16 U/L <32 [employer] Phone: Bilirubin [Mass/Vol] mg/dL Low 0.3 - 1 .2 mg/dL [employer] Phone: Bilirubin, Indirect CANNOT BE CALCULATED 0.00 - 1.00 mg/dL Pounce Phone: Bilirubin.indirect [Mass/Vol] mg/dL <0.31 mg/dL [employer] Phone: Free PSA/Total PSA [Mass fraction] 6.8 g/dL 6.4 - 8.3 g/dL [employer]ounce Phone: Globulin NOT REPORTED 1.5 - 3.8 g/dL [employer]ounce Phone: Interpretation and review of laboratory results Abnormal Pounce Phone: Pounce Phone: Laboratory - Chemistry and C hemistry - challengeOrdered By: Serenity Will on 02-07-2021 GFR/1.73 sq M.predicted MDRD (S/P/Bld) [Vol rate/Area] [employer]ounce Phone: Comment on above: Average GFR for 30-3 9 years old: 107 mL/min/1.73sq m Chronic Kidney Disease: <60 mL/min/1.73sq m Kidney failure: <15 mL/min/1.73sq m eGFR calculated using average adult body mass. Additional eGFR calculator available at: http://www.Patsnap/multiple_crcl_2012.htm Stage 1: Some kidney damage normal GFR Stage 2: Mild kidney damage GFR 60-89 Stage 3: Moderate kidney damage GFR 30-59 Stage 4: Severe kidney damage GFR 15-29 Stage 5: Severe kidney damage GFR <15 ESRD - chronic treatment by dialysis or transplant Lactic acid, plasmaOrdered B y: Serenity Will on 02-07-2021 Lactate [Moles/Vol] 0.8 mmol/L 0.5 - 2. 2 mmol/L [employer] Phone: Lactic Acid, Whole Blood NOT REPORTED 0.7 - 2.1 mmol/L Pounce Phone: [facility] Work Phone: LipaseOrdered By: Serenity Will on 02-07-2021 Lipase [Catalytic activity/Vol] 11 U/L Low 13 - 60 U/L [employer] Phone: Microscopic UrinalysisOrdere d By: Serenity Will on 02-07-2021 - Pounce Phone: Amorphous, UA NOT REPORTED None [facility] Work Phone: Bacteria, UA NOT REPORTED None [facility] Work Phone: Casts UA NOT REPORTED /LPF [facility] Work Phone: Crystals, UA NOT REPORTED None /HPF [facility] Work Phone: Epithelial Cells UA 5 TO 10 [facility] Work Phone: Mucus, UA NOT REPORTED None [facility] Work Phone: Other Observations UA NOT REPORTED NOT REQ. M [facility] Work Phone: RBC, UA 0 TO 2 [facility] Work Phone: Renal Epithelial, UA NOT REPORTED 0 /HPF [facility] Work Phone: Trichomonas, UA NOT REPORTED None [facility] Work Phone: WBC, UA 0 TO 2 [facility] Work Phone: Yeast, UA NOT REPORTED None [facility] Work Phone: [facility] Work Phone: No Panel InformationOrdered By: Serenity Will on 02-07-2021 Interpretation and review of laboratory results Abnormal [facility] Work Phone: [facility] Work Phone: Urinalysis Reflex to Culture Ordered By: Serenity Will on 02-07-2021 Bilirubin Urine Negative NEGATIVE [facility] Work Phone: Color, UA Yellow Yellow [facility] Work Phone: Glucose, Ur Negative NEGATIVE [facility] Work Phone: Ketones Ql (U) Negative NEGATIVE [facility] Work Phone: Leukocyte esterase Test strip Ql (U) Negative NEGATIVE [facility] Work Phone: Nitrite, Urine Negative NEGATIVE [facility] Work Phone: pH, UA 7.0 [facility] Work Phone: Protein, UA Negative NEGATIVE [facility] Work Phone: Specific [place], UA 1.010 [facility] Work Phone: Turbidity UA Clear Clear [facility] Work Phone: Urinalysis Comments NOT REPORTED [facility] Work Phone: Urine Hgb Negative NEGATIVE [facility] Work Phone: Urobilinogen, Urine Normal Normal [facility] [employer] Work Phone: [facility] Work Phone: CBC Auto DifferentialOrdered By: Мария Yee on 02-05-2021 Absolute Eos # 0.07 [facility] Work Phone: Absolute Immature Granulocyte <0.03 [facility] [employer] Work Phone: Absolute Lymph # 1.75 [facility] Work Phone: Absolute Pettis # 0.49 [facility] Work Phone: Basophils (Bld) [#/Vol] 0.05 10*3/uL [facility] [employer] Work Phone: Basophils/100 WBC (Bld) 1 % 0 - 2 % M [facility] [employer] Work Phone: Differential Type NOT REPORTED [facility] [employer] Work Phone: Eosinophils/100 WBC (Bld) 1 % 1 - 4 % [facility] [employer] Work Phone: Hematocrit (Bld) [Volume fraction] 42.4 % 36.3 - 47.1 % [facility] [employer] Work Phone: Hemoglobin.gastrointest inal spec 1 Ql (Stl) 13.8 g/dL 11.9 - 15.1 g/dL [facility] [employer] Work Phone: Immature granulocytes/100 WBC (Bld) 0 % 0 [facility] [employer] Work Phone: Lymphocytes/100 WBC (Bld) 28 % 24 - 43 % [facility] Work Phone: MCH (RBC) [Entitic mass] 30.4 pg 25.2 - 33.5 pg [employer]ounce Phone: MCHC (RBC) [Mass/Vol] 32.5 g/dL 28.4 - 34.8 g/dL Pounce Phone: MCV (RBC) [Entitic vol] 93.4 fL 82.6 - 102.9 fL [facility] Work Phone: Monocytes/100 WBC (Bld) 8 % 3 - 12 % M [employer] Work Phone: NRBC Automated 0.0 0.0 per 100 WBC Pounce Phone: Platelet distribution width (Bld) [Ratio] 14.3 % 11.8 - 14.4 % Pounce Phone: Platelet Estimate NOT REPORTED Pounce Phone: Platelet mean volume (Bld) [Entitic vol] 9.6 fL 8.1 - 13.5 fL Pounce Phone: Platelets (Bld) [#/Vol] 229 10*3/uL Pounce Phone: RBC (Bld) [#/Vol] 4.54 10*6/uL 3.95 - 5.11 m/uL [facility] Work Phone: RBC (Bld) [#/Vol] NOT REPORTED Pounce Phone: Segmented neutrophils/100 WBC (Bld) 62 % 36 - 65 % [facility] Work Phone: Segs [employer] 3.88 [employer] Work Phone: WBC (Bld) [#/Vol] 6.3 10*3/uL Pounce Phone: WBC (Bld) [#/Vol] NOT REPORTED [facility] Work Phone: Pounce Phone: Comprehensive Metabolic Pane l w/ Reflex to MGOrdered By: Мария Yee on 02-05-2021 Albumin [Mass/Vol] 4.5 g/dL 3.5 - 5.2 g/dL Pounce Phone: Albumin/Globulin [Mass ratio] 1.7 {ratio} Pounce Phone: ALP (Bld) [Catalytic activity/Vol] 53 U/L 35 - 104 U/L Pounce Phone: ALT [Catalytic activity/Vol] 12 U/L 5 - 33 U/L Pounce Phone: Anion gap [Moles/Vol] 12 mmol/L 9 - 17 mmol/L Pounce Phone: AST [Catalytic activity/Vol] 15 U/L <32 Pounce Phone: Bilirubin [Mass/Vol] 0.17 mg/dL Low 0.3 - 1 .2 mg/dL Pounce Phone: Calcium [Mass/Vol] 8.5 mg/dL Low 8.6 - 10. 4 mg/dL Pounce Phone: Chloride [Moles/Vol] 106 mmol/L 98 - 10 7 mmol/L Pounce Phone: CO2 [Moles/Vol] 23 mmol/L 20 - 31 mmol/L Pounce Phone: Creatinine [Mass/Vol] 0.65 mg/dL 0.50 - 0.90 mg/dL Pounce Phone: Free PSA/Total PSA [Mass fraction] 7.2 g/dL 6.4 - 8.3 g/dL Pounce Phone: GFR >60 >60 mL/min [employer] Phone: GFR Non- >60 >60 mL/min Pounce Phone: Glucose [Mass/Vol] 86 mg/dL 70 - 99 mg/dL Pounce Phone: Potassium [Moles/Vol] 3.6 mmol/L Low 3.7 - 5.3 mmol/L Pounce Phone: Sodium [Moles/Vol] 141 mmol/L 135 - 144 mmol/L Pounce Phone: Urea nitrogen (BldV) [Mass/Vol] 7 mg/dL 6 - 20 mg/dL Pounce Phone: Urea nitrogen/Creatinine (Bld) [Mass ratio] 11 Pounce Phone: Laboratory - Chemistry and C hemistry - challengeOrdered By: Мария Yee on 02-05-2021 GFR/1.73 sq M.predicted MDRD (S/P/Bld) [Vol rate/Area] Pounce Phone: Comment on above: Average GFR for 30-3 9 years old: 107 mL/min/1.73sq m Chronic Kidney Disease: <60 mL/min/1.73sq m Kidney failure: <15 mL/min/1.73sq m eGFR calculated using average adult body mass. Additional eGFR calculator available at: http://www.Patsnap/multiple_crcl_2012.htm Stage 1: Some kidney damage normal GFR Stage 2: Mild kidney damage GFR 60-89 Stage 3: Moderate kidney damage GFR 30-59 Stage 4: Severe kidney damage GFR 15-29 Stage 5: Severe kidney damage GFR <15 ESRD - chronic treatment by dialysis or transplant Lactic AcidOrdered By: Chuck Yee on 02-05-2021 Lactate [Moles/Vol] 0.8 mmol/L 0.5 - 2. 2 mmol/L Pounce Phone: Pounce Phone: LipaseOrdered By: Мария vargas on 02-05-2021 Lipase [Catalytic activity/Vol] 12 U/L Low 13 - 60 U/L [facility] Phone: No Panel InformationOrdered By: Мария Yee on 02-05-2021 Interpretation and review of laboratory results Abnormal Pounce Phone: [facility] [employer] Phone: Laboratory - Microbiology an d Antimicrobial susceptibilityOrdered By: Traci Dennison on 01-01-2021 SARS-CoV-2 (COVID-19) RNA EVELIA+probe Ql (Resp) Not detected (Not Detected ) [facility] Work Phone: Comment on above: Note: This nucleic a edgar amplification test was developed and itsperformance characteristics determined by [facility]. Nucleic acid amplification tests include RT-PCR and TMA. This test has not been FDA cleared orapproved. This test has been authorized by FDA under anEmergency Use Authorization (EUA). This test is onlyauthorized for the duration of time the declaration thatcircumstances exist justifying the authorization of theemergency use of in vitro diagnostic tests for detection [id number] virus and/or diagnosis of COVID-19 infectionunder section 564(b)(1) of the Act, 21 U.S.C. 360bbb-3(b)(1), unless the authorization is terminated or revokedsooner.When diagnostic testing is negative, the possibility of afalse negative result should be considered in the contextof a patient's recent exposures and the presence ofclinical signs and symptoms consistent with COVID-19. Anindividual without symptoms of COVID-19 and who is notshedding SARS-CoV-2 virus would expect to have a negative(not detected) result in this assay. SARS-CoV-2 (COVID-19) RNA EVELIA+probe Ql (Unsp spec) Performed [facility] Work Phone: No Panel InformationOrdered By: Kalpesh Dillard on 11-16-2020 No acute findings in the right forearm or right wrist. [facility] Work Phone: EXAMINATION: 2 XRAY VIEWS OF THE RIGHT FOREARM; 3 XRAY VIEWS OF THE RIGHT WRIST 11/16/2020 11:29 am COMPARISON: Right hand radiograph 04/05/2008 HISTORY: ORDERING SYSTEM PROVIDED HISTORY: pain TECHNOLOGIST PROVIDED HISTORY: pain FINDINGS: RIGHT FOREARM: No acute fracture. Joints maintain anatomic alignment. No significant degenerative changes. No obvious acute soft tissue abnormality. RIGHT WRIST: No acute fracture. Joints maintain anatomic alignment. No obvious acute soft tissue abnormality. [facility] Work Phone: Thomas, pn Incoming Radiant Results From [facility] - 11/16/2020 11:47 AM EDT EXAMINATION: 2 XRAY VIEWS OF THE RIGHT FOREARM; 3 XRAY VIEWS OF THE RIGHT WRIST 11/16/2020 11:29 am COMPARISON: Right hand radiograph 04/05/2008 HISTORY: ORDERING SYSTEM PROVIDED HISTORY: pain TECHNOLOGIST PROVIDED HISTORY: pain FINDINGS: RIGHT FOREARM: No acute fracture. Joints maintain anatomic alignment. No significant degenerative changes. No obvious acute soft tissue abnormality. RIGHT WRIST: No acute fracture. Joints maintain anatomic alignment. No obvious acute soft tissue abnormality. IMPRESSION: No acute findings in the right forearm or right wrist. [facility] Work Phone: [facility] Phone: AmylaseOrdered By: Kirk wilcox on 09-04-2020 Amylase [Catalytic activity/Vol] 48 U/L 28 - 100 U/L [facility] Phone: CBC Auto DifferentialOrdered By: Kirk Barlow on 09-04-2020 Absolute Eos # 0.13 [facility] Work Phone: Absolute Immature Granulocyte <0.03 [facility] Work Phone: Absolute Lymph # 1.83 [facility] [facility] Work Phone: Absolute Pettis # 0.70 [facility] Work Phone: Basophils (Bld) [#/Vol] 0.05 10*3/uL [facility] Work Phone: Basophils/100 WBC (Bld) 1 % 0 - 2 % M [employer] Work Phone: Differential Type NOT REPORTED Pounce Phone: Eosinophils/100 WBC (Bld) 2 % 1 - 4 % Pounce Phone: Hematocrit (Bld) [Volume fraction] 44.6 % 36.3 - 47.1 % Pounce Phone: Hemoglobin.gastrointest inal spec 1 Ql (Stl) 14.6 g/dL 11.9 - 15.1 g/dL Pounce Phone: Immature granulocytes/100 WBC (Bld) 0 % 0 Pounce Phone: Interpretation and review of laboratory results Abnormal Pounce Phone: Lymphocytes/100 WBC (Bld) 21 % Low 24 - 43 % Pounce Phone: MCH (RBC) [Entitic mass] 30.6 pg 25.2 - 33.5 pg Pounce Phone: MCHC (RBC) [Mass/Vol] 32.7 g/dL 28.4 - 34.8 g/dL Pounce Phone: MCV (RBC) [Entitic vol] 93.5 fL 82.6 - 102.9 fL Pounce Phone: Monocytes/100 WBC (Bld) 8 % 3 - 12 % M [employer] Work Phone: NRBC Automated 0.0 0.0 per 100 WBC Pounce Phone: Platelet distribution width (Bld) [Ratio] 14.1 % 11.8 - 14.4 % Pounce Phone: Platelet Estimate NOT REPORTED Pounce Phone: Platelet mean volume (Bld) [Entitic vol] 9.4 fL 8.1 - 13.5 fL Pounce Phone: Platelets (Bld) [#/Vol] 260 10*3/uL Pounce Phone: RBC (Bld) [#/Vol] 4.77 10*6/uL 3.95 - 5.11 m/uL Pounce Phone: RBC (Bld) [#/Vol] NOT REPORTED Pounce Phone: Segmented neutrophils/100 WBC (Bld) 68 % High 36 - 65 % [facility] Work Phone: Segs [employer] 6[employer]16 [employer] Work Phone: WBC (Bld) [#/Vol] 8.9 10*3/uL Pounce Phone: WBC (Bld) [#/Vol] NOT REPORTED Pounce Phone: [facility] Work Phone: Comprehensive Metabolic Pane l w/ Reflex to MGOrdered By: Kirk Barlow on 09-04-2020 Albumin [Mass/Vol] 4.5 g/dL 3.5 - 5.2 g/dL Pounce Phone: Albumin/Globulin [Mass ratio] 1.7 {ratio} Pounce Phone: ALP (Bld) [Catalytic activity/Vol] 48 U/L 35 - 104 U/L Pounce Phone: ALT [Catalytic activity/Vol] 14 U/L 5 - 33 U/L Pounce Phone: Anion gap [Moles/Vol] 11 mmol/L 9 - 17 mmol/L Pounce Phone: AST [Catalytic activity/Vol] 14 U/L <32 Pounce Phone: Bilirubin [Mass/Vol] 0.47 mg/dL 0.3 - 1 .2 mg/dL Pounce Phone: Calcium [Mass/Vol] 9.5 mg/dL 8.6 - 10. 4 mg/dL Pounce Phone: Chloride [Moles/Vol] 101 mmol/L 98 - 10 7 mmol/L Pounce Phone: CO2 [Moles/Vol] 25 mmol/L 20 - 31 mmol/L Pounce Phone: Creatinine [Mass/Vol] 0.71 mg/dL 0.50 - 0.90 mg/dL Pounce Phone: Free PSA/Total PSA [Mass fraction] 7.1 g/dL 6.4 - 8.3 g/dL Pounce Phone: GFR >60 >60 mL/min [employer] Phone: GFR Non- >60 >60 mL/min Pounce Phone: Glucose [Mass/Vol] 109 mg/dL High 70 - 99 mg/dL Pounce Phone: Interpretation and review of laboratory results Abnormal Pounce Phone: Potassium [Moles/Vol] 3.7 mmol/L 3.7 - 5.3 mmol/L Pounce Phone: Sodium [Moles/Vol] 137 mmol/L 135 - 144 mmol/L Pounce Phone: Urea nitrogen (BldV) [Mass/Vol] 9 mg/dL 6 - 20 mg/dL Pounce Phone: Urea nitrogen/Creatinine (Bld) [Mass ratio] 13 Pounce Phone: Laboratory - Chemistry and C hemistry - challengeOrdered By: Kirk Barlow on 09-04-2020 GFR/1.73 sq M.predicted MDRD (S/P/Bld) [Vol rate/Area] Pounce Phone: Comment on above: Average GFR for 30-3 9 years old: 107 mL/min/1.73sq m Chronic Kidney Disease: <60 mL/min/1.73sq m Kidney failure: <15 mL/min/1.73sq m eGFR calculated using average adult body mass. Additional eGFR calculator available at: http://www.Patsnap/multiple_crcl_2012.htm Stage 1: Some kidney damage normal GFR Stage 2: Mild kidney damage GFR 60-89 Stage 3: Moderate kidney damage GFR 30-59 Stage 4: Severe kidney damage GFR 15-29 Stage 5: Severe kidney damage GFR <15 ESRD - chronic treatment by dialysis or transplant LipaseOrdered By: Kareem on 09-04-2020 Lipase [Catalytic activity/Vol] 13 U/L 13 - 60 U/L [facility] Work Phone: Microscopic UrinalysisOrdere d By: Kirk Barlow on 09-04-2020 - [facility] Work Phone: Amorphous, UA NOT REPORTED None [facility] Work Phone: Bacteria, UA NOT REPORTED None [facility] Work Phone: Casts UA NOT REPORTED /LPF [facility] Work Phone: Crystals, UA NOT REPORTED None /HPF [facility] Work Phone: Epithelial Cells UA 0 TO 2 [facility] Work Phone: Mucus, UA NOT REPORTED None [facility] Work Phone: Other Observations UA NOT REPORTED NOT REQ. [facility] Work Phone: RBC, UA 0 TO 2 [facility] Work Phone: Renal Epithelial, UA NOT REPORTED 0 /HPF [facility] Work Phone: Trichomonas, UA NOT REPORTED None [facility] Work Phone: WBC, UA 0 TO 2 [facility] Work Phone: Yeast, UA NOT REPORTED None Pounce Phone: Pounce Phone: No Panel InformationOrdered By: Kirk Barlow on 09-04-2020 Pounce Phone: , UrineOrdered By: Kirk Balrow on 09-04-2020 Beta HCG ( test) Ql (U) Negative NEGATIVE Pounce Phone: Comment on above: Specimens with hCG l evels near the threshold of the test (25 mIU/mL) may give a negative or indeterminate result. In such cases, another test should be performed with a new specimen in 48-72 hours. If early is suspected clinically in this setting, correlation with quantitative serum b-hCG level is suggested. [employer] has confirmed the use of plasma for this test. This has not been cleared or approved by the U.S. Food and Drug Administration. The FDA has determined that such clearance is not necessary. Pounce Phone: US GALLBLADDER RUQOrdered By : Kirk Barlow on 09-04-2020 Unremarkable right u pper quadrant ultrasound. No cholelithiasis or findings to suggest acute cholecystitis. Pounce Phone: EXAMINATION: RIGHT U PPER QUADRANT ULTRASOUND 09/04/2020 3:01 pm COMPARISON: CT June 01, 2020 HISTORY: ORDERING SYSTEM PROVIDED HISTORY: Right upper quadrant abdominal pain for 3 days FINDINGS: LIVER: The liver demonstrates normal echogenicity without evidence of intrahepatic biliary ductal dilatation. BILIARY SYSTEM: Gallbladder is unremarkable without evidence of pericholecystic fluid, wall thickening or stones. Negative sonographic Rausch's sign. Common bile duct is within normal limits measuring 2 mm. RIGHT KIDNEY: The right kidney is grossly unremarkable without evidence of hydronephrosis. PANCREAS: Visualized portions of the pancreas are unremarkable. OTHER: No evidence of right upper quadrant ascites. The visualized IVC appears within normal limits. Pounce Phone: Thomas, Mhpn Incoming Radiant Results From [facility] - 09/04/2020 4:47 PM EDT EXAMINATION: RIGHT UPPER QUADRANT ULTRASOUND 09/04/2020 3:01 pm COMPARISON: CT June 01, 2020 HISTORY: ORDERING SYSTEM PROVIDED HISTORY: Right upper quadrant abdominal pain for 3 days FINDINGS: LIVER: The liver demonstrates normal echogenicity without evidence of intrahepatic biliary ductal dilatation. BILIARY SYSTEM: Gallbladder is unremarkable without evidence of pericholecystic fluid, wall thickening or stones. Negative sonographic Rausch's sign. Common bile duct is within normal limits measuring 2 mm. RIGHT KIDNEY: The right kidney is grossly unremarkable without evidence of hydronephrosis. PANCREAS: Visualized portions of the pancreas are unremarkable. OTHER: No evidence of right upper quadrant ascites. The visualized IVC appears within normal limits. IMPRESSION: Unremarkable right upper quadrant ultrasound. No cholelithiasis or findings to suggest acute cholecystitis. Pounce Phone: [facility] [employer] Work Phone: Urinalysis, reflex to micros copicOrdered By: Kirk Barlow on 09-04-2020 Bilirubin Urine Negative NEGATIVE [facility] Work Phone: Color, UA YELLOW YELLOW [facility] [employer] Work Phone: Glucose, Ur Negative NEGATIVE [facility] [employer] Work Phone: Interpretation and review of laboratory results Abnormal [facility] [employer] Phone: Ketones Ql (U) Negative NEGATIVE [facility] [employer] Work Phone: Leukocyte esterase Test strip Ql (U) Negative NEGATIVE [facility] [employer] Phone: Nitrite, Urine Negative NEGATIVE [facility] [employer] Work Phone: pH, UA 6.5 [facility] [employer] Work Phone: Protein, UA Negative NEGATIVE [facility] [employer] Work Phone: Specific [place], UA 1.025 High [facility] [employer] Work Phone: Turbidity UA CLEAR CLEAR [facility] [employer] Work Phone: Urinalysis Comments NOT REPORTED [facility] [employer] Work Phone: Urine Hgb TRACE Abnormal NEGATIVE [facility] [employer] Phone: Urobilinogen, Urine Normal Normal Pounce Phone: Pounce Phone: XR ABDOMEN (KUB) (SINGLE AP VIEW)Ordered By: Kirk Barlow on 09-04-2020 No significant radiographic abnormality in the abdomen. Pounce Phone: EXAMINATION: ONE SUP INE XRAY VIEW(S) OF THE ABDOMEN 09/04/2020 3:28 pm COMPARISON: CT abdomen and pelvis June 01, 2020 HISTORY: ORDERING SYSTEM PROVIDED HISTORY: abd pain TECHNOLOGIST PROVIDED HISTORY: abd pain FINDINGS: Nonspecific but nonobstructive bowel gas pattern. Bilateral tubal occlusive device noted. No abnormal calcifications overlying the gallbladder urinary tract. No mass effect. Osseous structures grossly intact. Pounce Phone: Thomas, Mhpn Incoming Radiant Results From [facility] - 09/04/2020 3:37 PM EDT EXAMINATION: ONE SUPINE XRAY VIEW(S) OF THE ABDOMEN 09/04/2020 3:28 pm COMPARISON: CT abdomen and pelvis June 01, 2020 HISTORY: ORDERING SYSTEM PROVIDED HISTORY: abd pain TECHNOLOGIST PROVIDED HISTORY: abd pain FINDINGS: Nonspecific but nonobstructive bowel gas pattern. Bilateral tubal occlusive device noted. No abnormal calcifications overlying the gallbladder urinary tract. No mass effect. Osseous structures grossly intact. IMPRESSION: No significant radiographic abnormality in the abdomen. Pounce Phone: Pounce Phone: SPECIMEN REJECTIONon 021 Ordered Test [id number] CDIF Pounce Phone: Reason for Rejection Unable to perform testing: Formed stool is not consistent with suspected diagnosis. Pounce Phone: Specimen source Nom (Unsp spec) .FECES Pounce Phone: - NOT REPORTED Pounce Phone: Amylaseon 06-01-2020 Amylase [Catalytic activity/Vol] 45 U/L 28 - 100 U/L Pounce Phone: CBC Auto Differentialon - 0-2020 Basophils (Bld) [#/Vol] 0.04 10*3/uL Pounce Phone: Basophils/100 WBC (Bld) 1 % 0 - 2 % M [employer] Phone: Differential Type NOT REPORTED Pounce Phone: Eosinophils (Bld) [#/Vol] 0.13 10*3/uL Pounce Phone: Eosinophils/100 WBC (Bld) 2 % 1 - 4 % Pounce Phone: Erythrocyte distribution width (RBC) [Ratio] 13.4 % 11.8 - 14.4 % Pounce Phone: Hematocrit (Bld) [Volume fraction] 44.7 % 36.3 - 47.1 % Pounce Phone: Hemoglobin (Bld) [Mass/Vol] 14.7 g/dL 11.9 - 15.1 g/dL Pounce Phone: Immature granulocytes (Bld) [#/Vol] 0 % 0 Pounce Phone: Immature granulocytes (Bld) [#/Vol] 10*3/uL Pounce Phone: Lymphocytes (Bld) [#/Vol] 2.01 10*3/uL Pounce Phone: Lymphocytes/100 WBC (Bld) 28 % 24 - 43 % Pounce Phone: MCH (RBC) [Entitic mass] 30.1 pg 25.2 - 33.5 pg Pounce Phone: MCHC (RBC) [Mass/Vol] 32.9 g/dL 28.4 - 34.8 g/dL Pounce Phone: MCV (RBC) [Entitic vol] 91.6 fL 82.6 - 102.9 fL Pounce Phone: Monocytes (Bld) [#/Vol] 0.71 10*3/uL Pounce Phone: Monocytes/100 WBC (Bld) 10 % 3 - 12 % [facility] Phone: Platelet mean volume (Bld) [Entitic vol] 9.9 fL 8.1 - 13.5 fL [employer] Work Phone: Platelets (Bld) [#/Vol] NOT REPORTED [facility] Phone: Platelets (Bld) [#/Vol] 284 10*3/uL [facility] Phone: RBC (Bld) [#/Vol] 4.88 10*6/uL 3.95 - 5.11 m/uL [employer] Work Phone: RBC morphology finding Nom (Bld) NOT REPORTED [facility] Work Phone: Segmented neutrophils/100 WBC (Bld) 59 % 36 - 65 % [facility] Phone: Segs Absolute 4.23 [employer] [facility] [employer] Work Phone: WBC (Bld) [#/Vol] 7.1 10*3/uL [employer] Work Phone: WBC (Bld) [#/Vol] 0.0 10*3/uL 0.0 per 100 WBC Pounce Phone: WBC Morphology NOT REPORTED [employer] [facility] Work Phone: CT ABDOMEN PELVIS W IV CONTR AST Additional Contrast? Noneon 06-01-2020 Thomas, Mhpn Incoming Radiant Results From [facility] - 06/01/2020 1:50 PM EST EXAMINATION: CT OF THE ABDOMEN AND PELVIS WITH CONTRAST 06/01/2020 1:28 pm TECHNIQUE: CT of the abdomen and pelvis was performed with the administration of intravenous contrast. Multiplanar reformatted images are provided for review. Dose modulation, iterative reconstruction, and/or weight based adjustment of the mA/kV was utilized to reduce the radiation dose to as low as reasonably achievable. COMPARISON: 12/14/2019 HISTORY: ORDERING SYSTEM PROVIDED HISTORY: abd pain - LUQ FINDINGS: Lower Chest: Normal heart size. Lung bases clear. Organs: The liver, spleen, pancreas, adrenal glands kidneys and gallbladder appear unremarkable. GI/Bowel: Borderline dilated jejunal bowel loops are noted in the left abdomen measuring up to approximately 3 cm. No discrete inflammation. Normal appendix. Pelvis: Bladder and uterus appear unremarkable. Bilateral tubal ligation. Normal size ovaries with probable corpus luteum on the left for which no follow-up imaging is recommended. Peritoneum/Retroperitone um: Normal caliber abdominal aorta. No suspicious lymphadenopathy. No ascites or free air. Bones/Soft Tissues: No significant osseous abnormality. IMPRESSION: Borderline dilated jejunal bowel loops are noted in the left abdomen measuring up to approximately 3 cm but without evidence for obstruction. Otherwise negative CT examination of the abdomen and pelvis as detailed above. Pounce Phone: EXAMINATION: CT OF T HE ABDOMEN AND PELVIS WITH CONTRAST 06/01/2020 1:28 pm TECHNIQUE: CT of the abdomen and pelvis was performed with the administration of intravenous contrast. Multiplanar reformatted images are provided for review. Dose modulation, iterative reconstruction, and/or weight based adjustment of the mA/kV was utilized to reduce the radiation dose to as low as reasonably achievable. COMPARISON: 12/14/2019 HISTORY: ORDERING SYSTEM PROVIDED HISTORY: abd pain - LUQ FINDINGS: Lower Chest: Normal heart size. Lung bases clear. Organs: The liver, spleen, pancreas, adrenal glands kidneys and gallbladder appear unremarkable. GI/Bowel: Borderline dilated jejunal bowel loops are noted in the left abdomen measuring up to approximately 3 cm. No discrete inflammation. Normal appendix. Pelvis: Bladder and uterus appear unremarkable. Bilateral tubal ligation. Normal size ovaries with probable corpus luteum on the left for which no follow-up imaging is recommended. Peritoneum/Retroperitone um: Normal caliber abdominal aorta. No suspicious lymphadenopathy. No ascites or free air. Bones/Soft Tissues: No significant osseous abnormality. Pounce Phone: Borderline dilated jejunal bowel loops are noted in the left abdomen measuring up to approximately 3 cm but without evidence for obstruction. Otherwise negative CT examination of the abdomen and pelvis as detailed above. Pounce Phone: Comprehensive Metabolic Pane l w/ Reflex to MGon 06-01-2020 Albumin [Mass/Vol] 4.5 g/dL 3.5 - 5.2 g/dL Pounce Phone: Albumin/Globulin [Mass ratio] 1.7 {ratio} Pounce Phone: ALP [Catalytic activity/Vol] 55 U/L 35 - 104 U/L Pounce Phone: ALT [Catalytic activity/Vol] 11 U/L 5 - 33 U/L Pounce Phone: Anion gap [Moles/Vol] 11 mmol/L 9 - 17 mmol/L Pounce Phone: AST [Catalytic activity/Vol] 16 U/L <32 Pounce Phone: Bilirubin Ql (U) 0.31 mg/dL 0.3 - 1.2 mg/dL Pounce Phone: Bun/Cre Ratio 9 [employer] Work Phone: Calcium [Mass/Vol] 9.3 mg/dL 8.6 - 10. 4 mg/dL Pounce Phone: Chloride [Moles/Vol] 101 mmol/L 98 - 10 7 mmol/L Pounce Phone: CO2 [Moles/Vol] 24 mmol/L 20 - 31 mmol/L Pounce Phone: Creatinine [Mass/Vol] 0.78 mg/dL 0.5 - 0.9 mg/dL Pounce Phone: GFR >60 >60 mL/min [employer] Phone: GFR Non- >60 >60 mL/min Pounce Phone: Glucose [Mass/Vol] 93 mg/dL 70 - 99 mg/dL Pounce Phone: Potassium [Moles/Vol] 4.2 mmol/L 3.7 - 5.3 mmol/L Pounce Phone: Protein [Mass/Vol] 7.2 g/dL 6.4 - 8.3 g/dL Pounce Phone: Sodium [Moles/Vol] 136 mmol/L 135 - 144 mmol/L Pounce Phone: Urea nitrogen [Mass/Vol] 7 mg/dL 6 - 20 mg/dL Pounce Phone: HCG Qualitative, Serumon hCG Qual Negative NEGATIVE Pounce Phone: Comment on above: Specimens with hCG l evels near the threshold of the test (25 mIU/mL) may give a negative or indeterminate result. In such cases, another test should be performed with a new specimen in 48-72 hours. If early is suspected clinically in this setting, correlation with quantitative serum b-hCG level is suggested. [employer] has confirmed the use of plasma for this test. This has not been cleared or approved by the U.S. Food and Drug Administration. The FDA has determined that such clearance is not necessary. Lactic Acidon 06-01-2020 Lactate [Moles/Vol] 1.9 mmol/L 0.5 - 2. 2 mmol/L Pounce Phone: Lipaseon 06-01-2020 Interpretation and review of laboratory results Abnormal Pounce Phone: Lipase [Catalytic activity/Vol] 11 U/L Low 13 - 60 U/L [employer] Phone: Metabolic Panelon 06-01-2020 GFR/1.73 sq M predicted among non-blacks MDRD (S/P/Bld) [Vol rate/Area] Pounce Phone: Comment on above: Average GFR for 30-3 9 years old: 107 mL/min/1.73sq m Chronic Kidney Disease: <60 mL/min/1.73sq m Kidney failure: <15 mL/min/1.73sq m eGFR calculated using average adult body mass. Additional eGFR calculator available at: http://www.Patsnap/multiple_crcl_2012.htm Stage 1: Some kidney damage normal GFR Stage 2: Mild kidney damage GFR 60-89 Stage 3: Moderate kidney damage GFR 30-59 Stage 4: Severe kidney damage GFR 15-29 Stage 5: Severe kidney damage GFR <15 ESRD - chronic treatment by dialysis or transplant Urinalysis, reflex to micros copicon 06-01-2020 Bilirubin Urine Negative NEGATIVE [facility] Work Phone: Color, UA YELLOW YELLOW [facility] [employer] Work Phone: Glucose, Ur Negative NEGATIVE [facility] [employer] Work Phone: Ketones Ql (U) Negative NEGATIVE [facility] [employer] Work Phone: Leukocyte esterase Test strip Ql (U) Negative NEGATIVE [facility] [employer] Work Phone: Nitrite, Urine Negative NEGATIVE [facility] Work Phone: pH, UA 8.5 [facility] [employer] Work Phone: Protein (U) [Mass/Vol] Negative NEGATIVE [facility] [employer] Work Phone: Specific [place], UA 1.020 [facility] [employer] Work Phone: Turbidity UA CLEAR CLEAR [facility] [employer] Work Phone: Urinalysis Comments NOT REPORTED [facility] Work Phone: Urine Hgb Negative NEGATIVE [facility] [employer] Work Phone: Urobilinogen, Urine Normal Normal [facility] [employer] Work Phone: Drug screen multi urineon Amphetamine Screen, Ur Negative NEGATIVE [facility] [place] [place] Barbiturate Screen, Ur Negative NEGATIVE [facility] [place] [place] Benzodiazepine Screen, Urine Negative NEGATIVE [facility] [place] [place] Buprenorphine Urine Negative NEGATIVE [place] Cannabinoid Scrn, Ur Positive Abnormal NEGATIVE [place] Cocaine Metabolite, Urine Negative NEGATIVE [place] Interpretation and review of laboratory results Abnormal [place] MDMA, Urine NOT REPORTED NEGATIVE [place] Methadone Screen, Urine Negative NEGATIVE [place] Methamphetamine, Urine Negative NEGATIVE [place] Opiates, Urine Negative NEGATIVE [place], [place] Oxycodone Screen, Ur Negative NEGATIVE [place] Phencyclidine, Urine Negative NEGATIVE [place] Propoxyphene, Urine Negative NEGATIVE [place] Test Information NOT REPORTED [place] Tricyclic Antidepressants, Urine Negative NEGATIVE [place], [place] Comment on above: Drug screen results are to be used for medical purposes only. All positive results are unconfirmed. Testing for employment or legal uses should be sent to a reference laboratory for confirmation. Microscopic Urinalysison Amorphous, UA NOT REPORTED None [place] Bacteria, UA TRACE Abnormal None [place] Casts UA NOT REPORTED /LPF [place] Crystals, UA NOT REPORTED None /HPF [place] Epithelial Cells UA 0 TO 2 [place] Interpretation and review of laboratory results Abnormal [place] Mucus, UA TRACE Abnormal None [place] Other Observations UA NOT REPORTED NOT REQ. [place] RBC (U) [#/Vol] 0 TO 2 [place] Renal Epithelial, UA NOT REPORTED 0 /HPF [place] Trichomonas, UA NOT REPORTED None [place] WBC, UA 0 TO 2 [place] Yeast, UA NOT REPORTED None [place] Troponinon 03-17-2020 Troponin I.cardiac [Mass/Vol] NOT REPORTED [place] Troponin T.cardiac [Mass/Vol] NOT REPORTED <0.03 ng/mL [place] Troponin, High Sensitivity <6 0 - 14 ng/L [place] Comment on above: High Sensitivity Troponin values cannot be compared with other Troponin methodologies. Patients with high levels of Biotin oral intake (i.e >5mg/day) may have falsely decreased Troponin levels. Samples collected within 8 hours of biotin intake may require additional information for diagnosis. Troponin I.cardiac [Mass/Vol] NOT REPORTED [place] Troponin T.cardiac [Mass/Vol] NOT REPORTED <0.03 ng/mL [place] Troponin, High Sensitivity <6 0 - 14 ng/L [place] Comment on above: High Sensitivity Troponin values cannot be compared with other Troponin methodologies. Patients with high levels of Biotin oral intake (i.e >5mg/day) may have falsely decreased Troponin levels. Samples collected within 8 hours of biotin intake may require additional information for diagnosis. Urinalysis Reflex to Culture on 03-17-2020 Bilirubin Urine Negative NEGATIVE [place] Color, UA YELLOW YELLOW [place] Glucose, Ur Negative NEGATIVE [place] Ketones Ql (U) Negative NEGATIVE [place] Leukocyte esterase Test strip Ql (U) Negative NEGATIVE [place] Nitrite, Urine Negative NEGATIVE [place] pH, UA 7.5 [place] Protein (U) [Mass/Vol] Negative NEGATIVE [place] Specific [place], UA 1.020 [place] Turbidity UA CLEAR CLEAR [place] Urinalysis Comments NOT REPORTED [place] Urine Hgb Negative NEGATIVE [place] Urobilinogen, Urine Normal Normal [place] XR CHEST (SINGLE VIEW FRONTA L)on 03-17-2020 EXAMINATION: ONE XRA Y VIEW OF THE CHEST 03/17/2020 11:49 am COMPARISON: 12/26/2019 HISTORY: ORDERING SYSTEM PROVIDED HISTORY: chest pain sob FINDINGS: The lungs are without acute focal process. No effusion or pneumothorax. The cardiomediastinal silhouette is normal. The osseous structures are intact without acute process. [place], [place] Thomas, Mhpn Incoming Radiant Results From [facility] - 03/17/2020 11:55 AM EST EXAMINATION: ONE XRAY VIEW OF THE CHEST 03/17/2020 11:49 am COMPARISON: 12/26/2019 HISTORY: ORDERING SYSTEM PROVIDED HISTORY: chest pain sob FINDINGS: The lungs are without acute focal process. No effusion or pneumothorax. The cardiomediastinal silhouette is normal. The osseous structures are intact without acute process. IMPRESSION: Unremarkable chest. [facility] [place] Unremarkable chest. [facility] [place] XR FOOT RIGHT (MIN 3 VIEWS)o n 12-31-2019 No acute osseous abnormality. [facility] EXAMINATION: THREE X RAY VIEWS OF THE RIGHT FOOT 12/31/2019 1:18 am COMPARISON: None. HISTORY: ORDERING SYSTEM PROVIDED HISTORY: Foot pain. Injury. TECHNOLOGIST PROVIDED HISTORY: Foot pain. Injury. FINDINGS: There is no acute fracture. There is normal alignment of the tarsometatarsal joints. No acute joint abnormality. No focal osseous lesion. No focal soft tissue abnormality. [facility] Thomas, Mhpn Incoming Radiant Results From [facility] - 12/31/2019 1:59 AM EDT EXAMINATION: THREE XRAY VIEWS OF THE RIGHT FOOT 12/31/2019 1:18 am COMPARISON: None. HISTORY: ORDERING SYSTEM PROVIDED HISTORY: Foot pain. Injury. TECHNOLOGIST PROVIDED HISTORY: Foot pain. Injury. FINDINGS: There is no acute fracture. There is normal alignment of the tarsometatarsal joints. No acute joint abnormality. No focal osseous lesion. No focal soft tissue abnormality. IMPRESSION: No acute osseous abnormality. [facility] 12-26-2019 Cholesterol [Mass/Vol] 125 mg/dL (<200) [facility] Work Phone: Comment on above: Note: Cholesterol Gu idelines:<200 [id number] Borderline>240 UndesirableResponsible Observer: [employer] ([id number]) Triglyceride [Mass/Vol] 50 mg/dL (<150) [facility] Work Phone: Comment on above: Note: Triglyceride G uidelines:<150 [id number] High>499 Very highBased on AHA Guidelines for fasting triglyceride, January 2012.Responsible Observer: [employer] ([id number]) Lipid Panelon 12-26-2019 Cholesterol [Mass/Vol] 125 mg/dL <200 [place] Comment on above: Cholesterol Guidelines: <200 Desirable 200-240 Borderline >240 Undesirable Cholesterol in HDL [Mass/Vol] 41 mg/dL >40 [place] Comment on above: HDL Guidelines: <40 Undesirable 40-59 Borderline >59 Desirable Cholesterol in LDL [Mass/Vol] 74 mg/dL 0 - 130 mg/dL [place] Comment on above: LDL Guidelines: <100 Desirable 100-129 Near to/above Desirable 130-159 Borderline >159 Undesirable Direct (measured) LDL and calculated LDL are not interchangeable tests. Cholesterol in VLDL [Mass/Vol] NOT REPORTED 1 - 30 mg/dL [place] Cholesterol.total/Le sterol in HDL [Mass ratio] 3 {ratio} <5 [place] Triglyceride [Mass/Vol] 50 mg/dL <150 [place] Comment on above: Triglyceride Guidelines: <150 Desirable 150-199 Borderline 200-499 High >499 Very high Based on AHA Guidelines for fasting triglyceride, January 2012. Otheron 12-26-2019 Cholesterol,HDL 41 mg/dL (>40) [facility] Work Phone: Comment on above: Note: HDL Guidelines :<40 [id number] Borderline>59 DesirableResponsible Observer: CANDELARIO AUTOFILE ([id number]) Cholesterol,LDL 74 mg/dL (0-130) [facility] Work Phone: Comment on above: Note: LDL Guidelines :<100 [id number] Near to/above [id number] Borderline>159 UndesirableDirect (measured) LDL and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 [address] [place] [address] 67147 Lymphocytes/100 WBC (Bld) 31.5 % Normal [facility] Comment on above: Performed By: #### C BC #### [facility] [address] [place] [address] 52943 MCH (RBC) [Entitic mass] 31.1 pg Normal 28.0-33.3 [facility] Comment on above: Performed By: #### C BC #### [facility] [address] [place] [address] 67620 MCH (RBC) [Entitic mass] 33.3 g/dL Normal 31.6-35.5 [facility] Comment on above: Performed By: #### C BC #### [facility] [address] [place] [address] 47393 MCV (RBC) [Entitic vol] 93.7 fL Normal 83.0-100.0 [facility] Comment on above: Performed By: #### C BC #### [facility] [address] [place] [address] 33201 Monocytes (Bld) [#/Vol] 0.7 K/mcL Normal 0.0-1.3 [facility] Comment on above: Performed By: #### C BC #### [facility] [address] [place] [address] 52380 Monocytes/100 WBC (Bld) 10.2 % Normal [facility] Comment on above: Performed By: #### C BC #### [facility] [address] [place] [address] 70897 Neutrophils (Bld) [#/Vol] 3.5 K/mcL Normal 1.6-8.9 [facility] Comment on above: Performed By: #### C BC #### [facility] [address] [place] [address] 60451 Platelet mean volume (Bld) [Entitic vol] 9.4 fL Normal 9.4-12.4 [facility] Comment on above: Performed By: #### C BC #### [facility] [address] [place] [address] 45952 Platelets (Bld) [#/Vol] 258 K/mcL Normal 140-400 [facility] Comment on above: Performed By: #### C BC #### [facility] [address] [place] [address] 86384 RBC (Bld) [#/Vol] 4.27 M/mcL Normal 3.82-4.97 [facility] Comment on above: Performed By: #### C BC #### [facility] [address] [place] [address] 90957 Segmented neutrophils/100 WBC (Bld) 54.7 % Normal [facility] Comment on above: Performed By: #### C BC #### [facility] [address] [place] [address] 86925 WBC (Bld) [#/Vol] 6.4 K/mcL Normal 4.3-11.1 [facility] Comment on above: Performed By: #### C BC #### [facility] [address] [place] [address] 26253 Comprehensive Metabolic Pane juan 10-09-2019 Albumin [Mass/Vol] 4.2 g/dL Normal 3.5-5.7 [facility] Comment on above: Performed By: #### C MP, LIP #### [facility] [address] [place] [address] 79532 Albumin/Globulin [Mass ratio] 1.9 {ratio} Normal 1.1-2.2 [facility] Comment on above: Performed By: #### C MP, LIP #### [facility] [address] [place] [address] 05055 ALP [Catalytic activity/Vol] 47 Units/L Normal 34-104 [facility] Comment on above: Performed By: #### C MP, LIP #### [facility] [address] [place] [address] 30563 ALT [Catalytic activity/Vol] 12 Units/L Normal 7-52 [facility] Comment on above: Performed By: #### C MP, LIP #### [facility] [address] [place] [address] 53962 AST [Catalytic activity/Vol] 11 Units/L Low 13-39 [facility] Comment on above: Performed By: #### C MP, LIP #### [facility] [address] [place] [address] 87456 Bilirubin [Mass/Vol] 0.5 mg/dL Normal 0.3-1.0 [facility] Comment on above: Performed By: #### C MP, LIP #### [facility] [address] [place] [address] 97483 Calcium [Mass/Vol] 8.8 mg/dL Normal 8.6-10.3 [facility] Comment on above: Performed By: #### C MP, LIP #### [facility] [address] [place] [address] 21980 Chloride [Moles/Vol] 106 mmol/L Normal 98-107 [facility] Comment on above: Performed By: #### C MP, LIP #### [facility] [address] [place] [address] 61616 CO2 [Moles/Vol] 27 mmol/L Normal 23-29 [facility] Comment on above: Performed By: #### C MP, LIP #### [facility] [address] [place] [address] 47318 Creatinine [Mass/Vol] 0.88 mg/dL Normal 0.60-1.20 [facility] Comment on above: Performed By: #### C MP, LIP #### [facility] [address] [place] [address] 87300 eGFR For Americans > 60 Normal > 60 [facility] Comment on above: Result Comment: eGFR = Estimated Glomerular Filtration Rate reported as mL/min/1.73 square meters Chronic Kidney Disease: < 60; Kidney failure: < 15 Performed By: #### C MP, LIP #### [facility] [address] [place] [address] 18677 eGFR For Non- Americans > 60 Normal > 60 [facility] Comment on above: Performed By: #### C MP, LIP #### [facility] [address] [place] [address] 04851 Globulin (S) [Mass/Vol] 2.2 g/dL Low 2.4-3.5 [facility] Comment on above: Performed By: #### C MP, LIP #### [facility] [address] [place] [address] 55571 Glucose [Mass/Vol] 87 mg/dL Normal 70-105 [facility] Comment on above: Performed By: #### C MP, LIP #### [facility] [address] [place] [address] 94086 Osmolality,Calculated 286 Normal 280-300 [facility] Comment on above: Performed By: #### C MP, LIP #### [facility] [address] [place] [address] 51417 Potassium [Moles/Vol] 3.9 mmol/L Normal 3.5-5.1 [facility] Comment on above: Performed By: #### C MP, LIP #### [facility] [address] [place] [address] 40920 Protein [Mass/Vol] 6.4 g/dL Normal 6.4-8.9 [facility] Comment on above: Performed By: #### C MP, LIP #### [facility] [address] [place] [address] 36567 Sodium [Moles/Vol] 139 mmol/L Normal 136-145 [facility] Comment on above: Performed By: #### C MP, LIP #### [facility] [address] [place] [address] 77445 Urea nitrogen [Mass/Vol] 8 mg/dL Normal 6-20 [facility] Comment on above: Performed By: #### C MP, LIP #### [facility] [address] [place] [address] 85763 Urea nitrogen/Creatinine [Mass ratio] 9 mg/mg Normal 6-26 [facility] Comment on above: Performed By: #### C MP, LIP #### [facility] [address] [place] [address] 21906 Drug Screen, Urineon 020 Amphetamine Screen,Urine Negative Normal Mibyay=842 0 [facility] Comment on above: Performed By: #### U DS #### [facility] [address] [place] [address] 17251 Barbiturate Screen,Urine Negative Normal Vgangc=072 [facility] Comment on above: Performed By: #### U DS #### [facility] [address] [place] [address] 70903 Benzodiazepines Screen,Urine Negative Normal Bssbzx=302 [facility] Comment on above: Performed By: #### U DS #### [facility] [address] [place] [address] 02679 Buprenorphine Screen,Urine Negative Normal Cutoff=5 [facility] Comment on above: Performed By: #### U DS #### [facility] [address] [place] [address] 38319 Cannabinoid Screen,Urine Positive Abnormal Cutoff = 50 [facility] Comment on above: Result Comment: Unco nfirmed presumptive positive. Refer to Urine Drug Screen Interpretation result for interpretative guidelines. Performed By: #### U DS #### [facility] [address] [place] [address] 55952 Cocaine Screen,Urine Negative Normal Cutoff= 300 [facility] Comment on above: Performed By: #### U DS #### [facility] [address] [place] [address] 68495 Opiate Screen,Urine Negative Normal Qeency=276 [facility] Comment on above: Performed By: #### U DS #### [facility] [address] [place] [address] 12642 Phencyclidine Screen,Urine Negative Normal Cutoff=25 [facility] Comment on above: Performed By: #### U DS #### [facility] [address] [place] [address] 75958 Ur. Drug Screen Interpretation See Below Normal [facility] Comment on above: Result Comment: This is a screening test only. Unconfirmed positives may be useful for medical purposes, but do not meet forensic standards (legal). Interfering substances may produce false positive or false negative results. Clinical consideration and correlation should be applied to any drug screen test result. Confirmatory testing is not automatically performed, but is available by the laboratory upon request. Performed By: #### U DS #### [facility] [address] [address] Emergency Documentationon Emergency Documentation [facility] [address] [place] [address] Emergency Department Note Signed PRELIMINARY DRAFT REPORT UNTIL ELECTRONICALLY SIGNED PATIENT: Abrahan Woods MR#: [id number] : 1990 AGE/SEX: 29 / F ADMITTED: 10/09/19 OUTSIDE LOCN: LOCATION: [facility] ATTENDING: cc: PCP NO; Disposition Clinical Impression: Viral syndrome, Seizure disorder Disposition: Home, Self-Care Condition: Good Instructions: Viral Syndrome (ED), Recurrent Seizures in Adults (ED) Reasons to Return/Additional Instructions: He was seen in the ED for several days of crampy abdominal pain, nausea, vomiting, diarrhea, headache, weakness and fatigue and low-grade fever. He did not have a fever here in the ER. All of your lab work here was normal. You likely have a viral illness. You are being tested for Covid 19. This test will take 2-3 days and you will be given a phone call to notify you of your results. In the meantime stay at home and isolate yourself from other family members until you receive your test results. Even prescribe Zofran to help with her nausea. You may take Tylenol or Motrin as needed for any pain. Rest and drink plenty of fluids. You have been given a short supply of your keppra until you are able to find a new primary care doctor or neurologist. See instructions below. Return to the ED for new or worsening symptoms. Blood pressure screening: When you had your blood pressure taken, if the top number was greater than 120 and/or the bottom number was greater than 80, it is recommended that you call your primary care provider or a physician of your choice this week to arrange follow-up for further evaluation. Elevated blood pressures which go untreated can lead to stroke, heart, kidney failure and other life-threatening diseases. EKG and/or x-ray: If you had one of these test performed in the emergency department, it will be r eviewed by the export freight manager and/or radiologist. If the review changes your diagnosis or treatment y ou will be contacted at the phone number you provided. Cultures: If you had a specimen collected for a culture, the results will take 48-72 hours to generate. You will be contacted if a change in treatment is needed. Antibiotics: If you have been prescribed an antibiotic, take it as instructed until it is finished. If you cannot tolerate the medication for some reason, contact your physician for an alternative treatment. Outpatient testing: If you have been prescribed an outpatient test please call to schedule an appointment for the test that was ordered on the form provided. If you received or were prescribed medication may cause drowsiness (such as tramadol, phenergan/promethazibe, trazodone, diazepam, lorazepam, hydroxyzine, xanax, hydrocodone, oxycodone, codeine) - DO NOT drive, drink alcohol or operate heavy machinery that requires you to be alert for at least 8 hours after taking the medication. If you smoke or chew tobacco products: Discuss with your family physician options to help you in the cessation of the use of these products. If you need to find a physician: Go to [email or web address] or call: [facility]: [phone] [facility]: [phone] [facility]: [phone] Prescriptions: levETIRAcetam [Keppra] 250 mg PO BID 14 Days #28 tablet Prescription Printed Ondansetron ODT [Zofran ODT] 4 mg SL Q6HR 5 Days #10 tab.rapdis Prescription Printed Referrals: NONE,PCP [Primary Care Provider] - Krysten Panchal MD [Partnered Physician] - Forms: ED Satisfaction Letter Time of Disposition: 15:05 General Adult HPI - General Chief complaint: ED Nausea/Vomiting/Diarrhea Stated complaint: stomach fever headach Time Seen by Provider: 10/09/19 13:09 Source: patient Mode of arrival: private vehicle Limitations: no limitations Nursing Notes Reviewed: Yes Vital Signs Reviewed: Yes - History of Present Illness HPI Narrative: Patient presents to the ED complaining of stomach pain, nausea, vomiting, diarrhea, headache, fever and generalized fatigue. Symptoms been going on for 3-4 days. She describes her abdominal pain is cramping and stabbing and is intermittent in nature and generalized throughout the abdomen. She currently rates a 4 out of 10. She reports 3-4 episodes of vomiting per day as well as numerous episodes of watery diarrhea. No blood noted in her stool or vomit. She is currently nauseous. She complains of a left temporal headache currently. Reports a fever of 101 this morning for which she took Tylenol and she is afebrile now. She has generalized aches and fatigue. She has a history of seizures and states she is achy because she did have a seizure earlier today due to being off her Keppra for 2 weeks. She reports increased urination and dysuria this and going on for 2 days. Her menstrual cycle started yesterday. She denies any recent travel outside the [facility] or sick contacts. She did move here 2 weeks ago from the [place] area and that is why she is out of medications as she has not established care with a local physician. She smokes a quarter pack per day and also smokes marijuana on occasion. She drinks alcohol on the weekends. She is supposed to be on Keppra 250 mg twice a day but has been off for approximately 2 weeks now. Pain Scale: 6 - Related Data Home Medications Medication Instructions Recorded Confirmed LevETIRAcetam [Keppra] 1,000 mg PO DAILY 10/09/19 10/09/19 Previous Rx's Medication Instructions Recorded Ondansetron ODT [Zofran ODT] 4 mg SL Q6HR 5 Days #10 tab.rapdis 10/09/19 levETIRAcetam [Keppra] 250 mg PO BID 14 Days #28 tablet 10/09/19 Allergies Allergy/AdvReac Type Severity Reaction Status Date / Time No Known Allergies Allergy Verified 10/09/19 12:54 Review of Systems Constitutional: Reports: fever, weakness (generalized). Denies: chills, weight change Eyes: Denies: eye pain, eye discharge, vision change ENT ED: Denies: ear pain, throat pain, dental pain, hearing loss, epistaxis, congestion, dysphagia Cardiovascular: Denies: chest pain, palpitations, dyspnea on exertion, edema, syncope Respiratory: Denies: cough, dyspnea, wheezes, hemoptysis, stridor Gastrointestinal: Reports: abdominal pain, nausea, vomiting, diarrhea. Denies: constipation, hematemesis, melena, hematochezia Genitourinary: Reports: dysuria, frequency. Denies: hematuria, discharge Musculoskeletal: Denies: back pain, neck pain, arthralgia, myalgia Integumentary: Denies: rash, abrasion, lesions Neurological: Reports: headache. Denies: weakness, numbness, paresthesias, confusion, abnormal gait, vertigo Psychiatric: Denies: anxiety, depression, suicidal thoughts, homicidal thoughts, auditory hallucinations, visual hallucinations Endocrine: Reports: fatigue Hematological/Lymphatic: Denies: easy bleeding, easy bruising Allergic/Immunologic: Denies: facial swelling, urticaria Past Medical History - Past Medical History Medical history: Reports: seizures Psychiatric history: Reports: no psych history - Social History Smoking Status: Current every day smoker Smokeless Tobacco Status: No Alcohol use: Reports: occasionally Drug use: Reports: marijuana Physical Exam - General Limitations: no limitations General appearance: alert, in no apparent distress - Head Head exam: atraumatic, normocephalic, normal inspection - Eye Eye exam: Present: normal appearance, PERRL, EOMI - ENT ENT exam: normal exam, normal oropharynx, mucous membranes moist - Neck Neck exam: Present: normal inspection, full ROM, trachea midline - Chest Chest inspection: Present: normal inspection, symmetric chest wall rise - Respiratory Respiratory exam: Present: normal lung sounds bilaterally - Cardiovascular Cardiovascular exam: Present: regular rate, normal rhythm, normal heart sounds - Abdominal Exam Abdominal exam: Present: soft, tenderness, normal bowel sounds. Absent: distention, guarding, rebound, rigidity Abdominal tenderness: Present: diffuse, mild - Extremities Exam Extremities exam: Present: normal inspection, full ROM. Absent: tenderness, pedal edema - Back Exam Back exam: Present: normal inspection, full ROM. Absent: tenderness - Neurological Exam Neurological exam: Present: alert, oriented X3 - Psychiatric Psychiatric exam: Present: normal affect, normal mood - Skin Skin exam: Present: warm, dry, intact, normal color Course Course Narrative: Patient presents to the ED complaining of generalized abdominal pain, nausea, vomiting, diarrhea, headache, fever and generalized weakness is been going on for 2-3 days. On arrival she is afebrile, hemodynamically stable and nontoxic in appearance. She reports a seizure earlier this morning due to running out of her Keppra. She is not postictal at this time. Will give ibuprofen for headache, Zofran for nausea and check routine lab work. I suspect a likely viral illness. - Reevaluation(s) Reevaluation #1: Laboratory studies are unremarkable. UA negative other than blood which is likely from her menses. Feeling better after Zofran and ibuprofen. Discussed with patient she likely has a viral illness. Given circumstances I recommended Coban 19 testing to which she is agreeable. In the meantime she will be prescribed Zofran for her nausea and will be given a two-week supply of her Keppra until she is able to get established with a new physician locally. She is given contact information for urology as well. She is given warning signs and when to return to the ED. Time: 15:02 Vital Signs Temperature 98.3 F 10/09/19 12:50 Pulse Rate 91 10/09/19 12:50 Respiratory Rate 18 10/09/19 12:50 Blood Pressure 145/89 10/09/19 12:50 O2 Sat by Pulse Oximetry 100 10/09/19 12:50 Temperature 98.3 F 10/09/19 12:50 Pulse Rate 91 10/09/19 12:50 Respiratory Rate 18 10/09/19 12:50 Blood Pressure 145/89 10/09/19 12:50 O2 Sat by Pulse Oximetry 100 10/09/19 12:50 Oxygen Delivery Oxygen Delivery Room Air Medical Decision Making - Medical Records Medical records reviewed: Yes I reviewed the patient's medical records. - Lab Data Lab results reviewed: Yes I reviewed the patient's lab results. Result diagrams: 10/09/19 14:20 10/09/19 14:20 Lab Results 10/09/19 10/09/19 10/09/19 Range/Units 14:20 14:20 14:20 WBC (4.3-11.1) K/mcL RBC (3.82-4.97) M/mcL Hgb (11.5-15.4) g/dL Hct (35.3-44.9) % MCV (83.0-100.0) fL MCH (28.0-33.3) pg MCHC (31.6-35.5) g/dL RDW (11.5-14.5) % Plt Count (140-400) K/mcL MPV (9.4-12.4) fL Immature Gran % (0-4) % Seg Neutrophils % % Lymphocytes % % Monocytes % % Eosinophils % % Basophils % % Neutrophils # (1.6-8.9) K/mcL Lymphocytes # (0.6-4.6) K/mcL Monocytes # (0.0-1.3) K/mcL Eosinophils # (0.0-0.6) K/mcL Basophils # (0.0-0.2) K/mcL Sodium (136-145) mEq/L Potassium (3.5-5.1) mEq/L Chloride (98-107) mEq/L Carbon Dioxide (23-29) mEq/L BUN (6-20) mg/dL Creatinine (0.60-1.20) mg/dL Est GFR ( Amer) (> 60) Est GFR (Non-Af Amer) (> 60) BUN/Creatinine Ratio (6-26) Glucose (70-105) mg/dL Calculated Osmolality (280-300) Calcium (8.6-10.3) mg/dL Total Bilirubin (0.3-1.0) mg/dL AST (13-39) Units/L ALT (7-52) Units/L Alkaline Phosphatase (34-104) Units/L Serum Total Protein (6.4-8.9) g/dL Albumin (3.5-5.7) g/dL Globulin (2.4-3.5) g/dL Albumin/Globulin Ratio (1.1-2.2) Lipase (11-82) Units/L Urine Color Yellow (Yellow) Urine Clarity Clear (Clear) Urine pH 8.0 (5.0-8.0) pH Units Ur Specific [place] 1.015 (1.010-1.025) Urine Protein Negative (Neg-Trace) mg/dL Urine Glucose (UA) Normal (Normal) mg/dL Urine Ketones Negative (Negative) mg/dL Urine Blood Small H (Negative) Urine Nitrite Negative (Negative) Urine Bilirubin Negative (Negative) Urine Urobilinogen Normal (Normal) mg/dL Ur Leukocyte Esterase Negative (Negative) Urine Microscopic RBC 0-3 (0-3) per hpf Urine Microscopic WBC 0-3 (0-3) per hpf Ur Squamous Epith Cells Few (None-Few) per hpf Urine Bacteria Few (None-Few) per hpf Ur Culture Indicated? YES A (NO) Urine Test Negative (Negative) Ur Drug Screen Interp See Below 10/09/19 10/09/19 Range/Units 14:20 14:20 WBC 6.4 (4.3-11.1) K/mcL RBC 4.27 (3.82-4.97) M/mcL Hgb 13.3 (11.5-15.4) g/dL Hct 40.0 (35.3-44.9) % MCV 93.7 (83.0-100.0) fL MCH 31.1 (28.0-33.3) pg MCHC 33.3 (31.6-35.5) g/dL RDW 13.3 (11.5-14.5) % Plt Count 258 (140-400) K/mcL MPV 9.4 (9.4-12.4) fL Immature Gran % 0.2 (0-4) % Seg Neutrophils % 54.7 % Lymphocytes % 31.5 % Monocytes % 10.2 % Eosinophils % 2.6 % Basophils % 0.8 % Neutrophils # 3.5 (1.6-8.9) K/mcL Lymphocytes # 2.0 (0.6-4.6) K/mcL Monocytes # 0.7 (0.0-1.3) K/mcL Eosinophils # 0.2 (0.0-0.6) K/mcL Basophils # 0.1 (0.0-0.2) K/mcL Sodium 139 (136-145) mEq/L Potassium 3.9 (3.5-5.1) mEq/L Chloride 106 (98-107) mEq/L Carbon Dioxide 27 (23-29) mEq/L BUN 8 (6-20) mg/dL Creatinine 0.88 (0.60-1.20) mg/dL Est GFR ( Amer) > 60 (> 60) Est GFR (Non-Af Amer) > 60 (> 60) BUN/Creatinine Ratio 9 (6-26) Glucose 87 (70-105) mg/dL Calculated Osmolality 286 (280-300) Calcium 8.8 (8.6-10.3) mg/dL Total Bilirubin 0.5 (0.3-1.0) mg/dL AST 11 L (13-39) Units/L ALT 12 (7-52) Units/L Alkaline Phosphatase 47 (34-104) Units/L Serum Total Protein 6.4 (6.4-8.9) g/dL Albumin 4.2 (3.5-5.7) g/dL Globulin 2.2 L (2.4-3.5) g/dL Albumin/Globulin Ratio 1.9 (1.1-2.2) Lipase 9 L (11-82) Units/L Urine Color (Yellow) Urine Clarity (Clear) Urine pH (5.0-8.0) pH Units Ur Specific [place] (1.010-1.025) Urine Protein (Neg-Trace) mg/dL Urine Glucose (UA) (Normal) mg/dL Urine Ketones (Negative) mg/dL Urine Blood (Negative) Urine Nitrite (Negative) Urine Bilirubin (Negative) Urine Urobilinogen (Normal) mg/dL Ur Leukocyte Esterase (Negative) Urine Microscopic RBC (0-3) per hpf Urine Microscopic WBC (0-3) per hpf Ur Squamous Epith Cells (None-Few) per hpf Urine Bacteria (None-Few) per hpf Ur Culture Indicated? (NO) Urine Test (Negative) Ur Drug Screen Interp Documented By: Elsie Brink MD Signed By: 10/09/19 150 DD/ 1312 Initialized By: [id number] Normal [facility] Lipaseon 10-09-2019 Lipase [Catalytic activity/Vol] 9 Units/L Low 11-82 [facility] Comment on above: Performed By: #### C MP, LIP #### [facility] [address] [place] [address] Test Result, Urine on 10-09-2019 Beta HCG ( test) Ql (U) Negative Normal Negative [facility] Comment on above: Performed By: #### U PREG #### [facility] [address] [place], [place] [id number] Urinalysis Reflex Cult Micro on 10-09-2019 Bacteria LM.HPF (Urine sed) [#/Area] Few Normal None-Few [facility] Comment on above: Performed By: #### U AREF #### [facility] [address] [place], [place] [id number] Culture Indicated,Urine YES Abnormal NO A [facility] Comment on above: Performed By: #### U AREF #### [facility] [address] [place] [address] [id number] RBC LM.HPF (Urine sed) [#/Area] 0-3 Normal 0-3 [facility] Comment on above: Performed By: #### U AREF #### [facility] [address] [place] [address] [id number] Squamous Epithelial Cell,Urine Few Normal None-Few [facility] Comment on above: Performed By: #### U AREF #### [facility] [address] [place] [address] [id number] WBC LM.HPF (Urine sed) [#/Area] 0-3 Normal 0-3 [facility] Comment on above: Performed By: #### U AREF #### [facility] [address] [place] [address] 55467 Bilirubin,Urine Negative Normal Negative [facility] Comment on above: Performed By: #### U AREF #### [facility] [address] [place] [address] [id number] Blood,Urine Small Abnormal Negative [facility] Comment on above: Performed By: #### U AREF #### [facility] [address] [place] [address] 11254 Clarity (U) Clear Normal Clear [facility] Comment on above: Performed By: #### U AREF #### [facility] [address] [place] [address] [phone] Color (U) Yellow Normal Yellow [facility] Comment on above: Performed By: #### U AREF #### [facility] [address] [place] [address] 90207 Glucose Ql (U) Normal Normal Normal [facility] Comment on above: Performed By: #### U AREF #### [facility] [address] [place] [address] 85683 Ketones Ql (U) Negative Normal Negative [facility] Comment on above: Performed By: #### U AREF #### [facility] [address] [place] [address] 46605 Leukocyte esterase Test strip Ql (U) Negative Normal Negative [facility] Comment on above: Performed By: #### U AREF #### [facility] [address] [place] [address] 67897 Nitrite,Urine Negative Normal Negative [facility] Comment on above: Performed By: #### U AREF #### [facility] [address] [place] [address] 24558 pH (U) 8.0 pH Units Normal 5.0-8.0 [facility] Comment on above: Performed By: #### U AREF #### [facility] [address] [place] [address] 36259 Protein (U) [Mass/Vol] Negative Normal Neg-Trace Ad [facility] Comment on above: Performed By: #### U AREF #### [facility] [address] [place] [address] 58333 Specific [place],Urine 1.015 Normal 1.010 -1.02 5 [facility] Comment on above: Performed By: #### U AREF #### [facility] [address] [place] [address] 89453 Urobilinogen,Urine Normal Normal Normal [facility] Comment on above: Performed By: #### U AREF #### [facility] [address] [place] [address] [id number] XR CHEST STANDARD (2 VW)on 0 12-30-2018 No acute cardiopulmo nary pathology. [facility] [place], [place] EXAMINATION: TWO XRA Y VIEWS OF THE CHEST 12/30/2018 6:16 am COMPARISON: 11/05/2016 HISTORY: ORDERING SYSTEM PROVIDED HISTORY: cough, congestion, purulent phlegm production. R/O pna TECHNOLOGIST PROVIDED HISTORY: cough, congestion, purulent phlegm production. R/O pna FINDINGS: Frontal and lateral views of the chest are submitted for review. The cardiac silhouette is normal in size. Lung parenchyma is clear without focal airspace consolidation, sizeable pleural effusion, or pneumothorax. Trachea is midline. Osseous structures and soft tissues are grossly intact. [place], [place], [facility] Incoming Radiant Results From [facility] - 12/30/2018 6:42 AM EDT EXAMINATION: TWO XRAY VIEWS OF THE CHEST 12/30/2018 6:16 am COMPARISON: 11/05/2016 HISTORY: ORDERING SYSTEM PROVIDED HISTORY: cough, congestion, purulent phlegm production. R/O pna TECHNOLOGIST PROVIDED HISTORY: cough, congestion, purulent phlegm production. R/O pna FINDINGS: Frontal and lateral views of the chest are submitted for review. The cardiac silhouette is normal in size. Lung parenchyma is clear without focal airspace consolidation, sizeable pleural effusion, or pneumothorax. Trachea is midline. Osseous structures and soft tissues are grossly intact. IMPRESSION: No acute cardiopulmonary pathology. [place], [place] Vital Signs Date Time Vital Sign Value Performing Clinician Manny reyes 03-08-2023 10:41-0500 Body height 149.86 cm Srinivasa Ward [facility] Work Phone: [facility] Work Phone: 03-08-2023 10:41-0500 Body mass index (BMI) [Ratio] 33.8 kg/m2 Srinivasa Ward BIOLOGY ADJUNCT INSTRUCTOR Work Phone: [facility] Work Phone: 03-08-2023 10:41-0500 Body surface area Derived from formula 1.7 m2 Srinivasa Boyceer [facility] Work Phone: [facility] Work Phone: 03-08-2023 10:41-0500 Body weight 75.81 kg Srinivasa Ed BIOLOGY ADJUNCT INSTRUCTOR Work Phone: [facility] Work Phone: 03-08-2023 10:41-0500 Diastolic blood pressure 83 mm[Hg] Srinivasa Boyceer BIOLOGY ADJUNCT INSTRUCTOR Work Phone: [facility] Work Phone: 03-08-2023 10:41-0500 Heart rate 81 /min Srinivasa Boyceer BIOLOGY ADJUNCT INSTRUCTOR Work Phone: [facility] Work Phone: 03-08-2023 10:41-0500 Inhaled oxygen concentration 21 % Srinivasa Boyceer BIOLOGY ADJUNCT INSTRUCTOR Work Phone: [facility] Work Phone: 03-08-2023 10:41-0500 Inhaled oxygen flow rate 0 L/min Srinivasa Boyceer BIOLOGY ADJUNCT INSTRUCTOR Work Phone: [facility] Work Phone: 03-08-2023 10:41-0500 Respiratory rate 18 /min Srinivasa Ward BIOLOGY ADJUNCT INSTRUCTOR Work Phone: [facility] Work Phone: 03-08-2023 10:41-0500 SaO2% (BldA) [Mass fraction] 98 % Srinivasa Ward BIOLOGY ADJUNCT INSTRUCTOR Work Phone: [facility] Work Phone: 03-08-2023 10:41-0500 Systolic blood pressure 131 mm[Hg] Srinivasa Boyceer BIOLOGY ADJUNCT INSTRUCTOR Work Phone: [facility] Work Phone: 02-19-2023 10:15-0500 Body height 149.86 cm Srinivasa Boyceer BIOLOGY ADJUNCT INSTRUCTOR Work Phone: [facility] Work Phone: 02-19-2023 10:15-0500 Body mass index (BMI) [Ratio] 33.2 kg/m2 Srinivasa Boyceer BIOLOGY ADJUNCT INSTRUCTOR Work Phone: [facility] Work Phone: 02-19-2023 10:15-0500 Body surface area Derived from formula 1.7 m2 Srinivasa Ward CNP Work Phone: [facility] Work Phone: 02-19-2023 10:15-0500 Body temperature 98.8 [degF] Srinivasa Ward CNP Work Phone: [facility] Work Phone: 02-19-2023 10:15-0500 Body weight 74.66 kg Srinivasa Ward CNP Work Phone: [facility] Work Phone: 02-19-2023 10:15-0500 Diastolic blood pressure 82 mm[Hg] Srinivasa Ward CNP Work Phone: [facility] Work Phone: 02-19-2023 10:15-0500 Heart rate 80 /min Srinivasa Ward CNP Work Phone: [facility] Work Phone: 02-19-2023 10:15-0500 SaO2% (BldA) [Mass fraction] 98 % Srinivasa Ward CNP Work Phone: [facility] Work Phone: 02-19-2023 10:15-0500 Systolic blood pressure 114 mm[Hg] Srinivasa Ward CNP Work Phone: [facility] Work Phone: 02-05-2023 10:44-0400 Body height 149.86 cm Srinivasa Ward CNP Work Phone: [facility] Work Phone: 02-05-2023 10:44-0400 Body mass index (BMI) [Ratio] 33.1 kg/m2 Srinivasa Ward CNP Work Phone: [facility] Work Phone: 02-05-2023 10:44-0400 Body surface area Derived from formula 1.7 m2 Srinivasa Ward CNP Work Phone: [facility] Work Phone: 02-05-2023 10:44-0400 Body temperature 98.1 [degF] Srinivasa Ward CNP Work Phone: [facility] Work Phone: 02-05-2023 10:44-0400 Body weight 74.39 kg Srinivasa Ward CNP Work Phone: [facility] Work Phone: 02-05-2023 10:44-0400 Diastolic blood pressure 71 mm[Hg] Srinivasa Ward CNP Work Phone: [facility] Work Phone: 02-05-2023 10:44-0400 Heart rate 71 /min Srinivasa Ward CNP Work Phone: [facility] Work Phone: 02-05-2023 10:44-0400 SaO2% (BldA) [Mass fraction] 98 % Srinivasa Ward CNP Work Phone: [facility] Work Phone: 02-05-2023 10:44-0400 Systolic blood pressure 106 mm[Hg] Srinivasa Ward CNP Work Phone: [facility] Work Phone: 01-28-2023 10:57-0400 Body height 149.86 cm Srinivasa Ward CNP Work Phone: [facility] Work Phone: 01-28-2023 10:57-0400 Body mass index (BMI) [Ratio] 32.7 kg/m2 Srinivasa Ward CNP Work Phone: [facility] Work Phone: 01-28-2023 10:57-0400 Body surface area Derived from formula 1.7 m2 Srinivasa Ward CNP Work Phone: [facility] Work Phone: 01-28-2023 10:57-0400 Body temperature 98.4 [degF] Srinivasa Ward CNP Work Phone: [facility] Work Phone: 01-28-2023 10:57-0400 Body weight 73.39 kg Srinivasa Ward CNP Work Phone: [facility] Work Phone: 01-28-2023 10:57-0400 Diastolic blood pressure 75 mm[Hg] Srinivasa Ward CNP Work Phone: [facility] Work Phone: 01-28-2023 10:57-0400 Heart rate 63 /min Srinivasa Ward CNP Work Phone: [facility] Work Phone: 01-28-2023 10:57-0400 SaO2% (BldA) [Mass fraction] 98 % Srinivasa Ward CNP Work Phone: [facility] Work Phone: 01-28-2023 10:57-0400 Systolic blood pressure 118 mm[Hg] Srinivasa Ward CNP Work Phone: [facility] Work Phone: 12-31-2022 11:55-0400 Body height 149.86 cm Srinivasa Ward CNP Work Phone: [facility] Work Phone: 12-31-2022 11:55-0400 Body mass index (BMI) [Ratio] 32.9 kg/m2 Srinivasa Ward CNP Work Phone: [facility] Work Phone: 12-31-2022 11:55-0400 Body surface area Derived from formula 1.7 m2 Srinivasa Ward CNP Work Phone: [facility] Work Phone: 12-31-2022 11:55-0400 Body temperature 98.1 [degF] Srinivasa Ward CNP Work Phone: [facility] Work Phone: 12-31-2022 11:55-0400 Body weight 73.94 kg Srinivasa Ward CNP Work Phone: [facility] Work Phone: 12-31-2022 11:55-0400 Diastolic blood pressure 76 mm[Hg] Srinivasa Ward CNP Work Phone: [facility] Work Phone: 12-31-2022 11:55-0400 Heart rate 66 /min Srinivasa Ward CNP Work Phone: [facility] Work Phone: 12-31-2022 11:55-0400 SaO2% (BldA) [Mass fraction] 96 % Srinivasa Ward CNP Work Phone: [facility] Work Phone: 12-31-2022 11:55-0400 Systolic blood pressure 108 mm[Hg] Srinivasa Ward CNP Work Phone: [facility] Work Phone: 11-30-2022 09:05-0400 Body height 149.86 cm Srinivasa Ward CNP Work Phone: [facility] Work Phone: 11-30-2022 09:05-0400 Body mass index (BMI) [Ratio] 33.3 kg/m2 Srinivasa Ward CNP Work Phone: [facility] Work Phone: 11-30-2022 09:05-0400 Body surface area Derived from formula 1.7 m2 Srinivasa Ward CNP Work Phone: [facility] Work Phone: 11-30-2022 09:05-0400 Body temperature 98.4 [degF] Srinivasa Ward CNP Work Phone: [facility] Work Phone: 11-30-2022 09:05-0400 Body weight 74.75 kg Srinivasa Ward CNP Work Phone: [facility] Work Phone: 11-30-2022 09:05-0400 Diastolic blood pressure 77 mm[Hg] Srinivasa Ward CNP Work Phone: [facility] Work Phone: 11-30-2022 09:05-0400 Heart rate 59 /min Srinivasa Ward CNP Work Phone: [facility] Work Phone: 11-30-2022 09:05-0400 SaO2% (BldA) [Mass fraction] 97 % Srinivasa Ward CNP Work Phone: [facility] Work Phone: 11-30-2022 09:05-0400 Systolic blood pressure 124 mm[Hg] Srinivasa Ward CNP Work Phone: [facility] Work Phone: 06-07-2022 23:13-0500 SaO2% (BldA) [Mass fraction] 100 % Serenity Will DO Work Phone: [facility] 06-07-2022 23:10-0500 Diastolic blood pressure 93 mm[Hg] Serenity Will DO Work Phone: [facility] [employer] 06-07-2022 23:10-0500 Systolic blood pressure 136 mm[Hg] Serenity Will DO Work Phone: [facility] [employer] 06-07-2022 21:49-0500 Body temperature 98.6 [degF] Serenity Will DO Work Phone: [facility] 06-07-2022 21:49-0500 Heart rate 85 /min Serenity Will DO Work Phone: [facility] 06-07-2022 21:49-0500 Respiratory rate 18 /min Serenity Will DO Work Phone: [facility] 01-22-2022 10:53-0400 Body height 149.86 cm Traci Dennison CNP Work Phone: [facility] Work Phone: 01-22-2022 10:53-0400 Body mass index (BMI) [Ratio] 30.3 kg/m2 Tracialyx Dennison CNP Work Phone: [facility] Work Phone: 01-22-2022 10:53-0400 Body surface area Derived from formula 1.6 m2 Tracialyx Dennison CNP Work Phone: [facility] Work Phone: 01-22-2022 10:53-0400 Body temperature 97.6 [degF] Traci Dennison CNP Work Phone: [facility] Work Phone: 01-22-2022 10:53-0400 Body weight 67.95 kg Tracialyx Dennison CNP Work Phone: [facility] Work Phone: 01-22-2022 10:53-0400 Diastolic blood pressure 80 mm[Hg] Traci Dennison BIOLOGY ADJUNCT INSTRUCTOR Work Phone: [facility] Work Phone: 01-22-2022 10:53-0400 Heart rate 76 /min Traci Dennison BIOLOGY ADJUNCT INSTRUCTOR Work Phone: [facility] Work Phone: 01-22-2022 10:53-0400 SaO2% (BldA) [Mass fraction] 99 % Traci Dennison CNP Work Phone: [facility] Work Phone: 01-22-2022 10:53-0400 Systolic blood pressure 120 mm[Hg] Traci Dennison CNP Work Phone: [facility] Work Phone: 12-11-2021 11:36-0400 Body height 149.86 cm Traci Dennison CNP Work Phone: [facility] Work Phone: 12-11-2021 11:36-0400 Body mass index (BMI) [Ratio] 26.9 kg/m2 Traci Dennison CNP Work Phone: [facility] Work Phone: 12-11-2021 11:36-0400 Body surface area Derived from formula 1.55 m2 Traci Dennison CNP Work Phone: [facility] Work Phone: 12-11-2021 11:36-0400 Body surface area Derived from formula 1.6 m2 Traci Dennison CNP Work Phone: [facility] Work Phone: 12-11-2021 11:36-0400 Body temperature 97.6 [degF] Traci Dennison CNP Work Phone: [facility] Work Phone: 12-11-2021 11:36-0400 Body weight 60.33 kg Traci Dennison CNP Work Phone: [facility] Work Phone: 12-11-2021 11:36-0400 Diastolic blood pressure 78 mm[Hg] Traci Dennison CNP Work Phone: [facility] Work Phone: 12-11-2021 11:36-0400 Heart rate 61 /min Trcai Dennison CNP Work Phone: [facility] Work Phone: 12-11-2021 11:36-0400 SaO2% (BldA) [Mass fraction] 99 % Traci Dennison CNP Work Phone: [facility] Work Phone: 12-11-2021 11:36-0400 Systolic blood pressure 98 mm[Hg] Traci Dennison CNP Work Phone: [facility] Work Phone: 11-25-2021 12:49-0400 Body height 149.86 cm Traci Dennison CNP Work Phone: [facility] Work Phone: 11-25-2021 12:49-0400 Body mass index (BMI) [Ratio] 27.2 kg/m2 Traci Dennison CNP Work Phone: [facility] Work Phone: 11-25-2021 12:49-0400 Body surface area Derived from formula 1.56 m2 Traci Dennison CNP Work Phone: [facility] Work Phone: 11-25-2021 12:49-0400 Body surface area Derived from formula 1.6 m2 Traci Dennison CNP Work Phone: [facility] Work Phone: 11-25-2021 12:49-0400 Body temperature 98.6 [degF] Traci Dennison CNP Work Phone: [facility] Work Phone: 11-25-2021 12:49-0400 Body weight 61.05 kg Traci Dennison CNP Work Phone: [facility] Work Phone: 11-25-2021 12:49-0400 Diastolic blood pressure 82 mm[Hg] Traci Dennison BIOLOGY ADJUNCT INSTRUCTOR Work Phone: [facility] Work Phone: 11-25-2021 12:49-0400 Heart rate 60 /min Traci Dennison BIOLOGY ADJUNCT INSTRUCTOR Work Phone: [facility] Work Phone: 11-25-2021 12:49-0400 SaO2% (BldA) [Mass fraction] 98 % Traci Dennison BIOLOGY ADJUNCT INSTRUCTOR Work Phone: [facility] Work Phone: 11-25-2021 12:49-0400 Systolic blood pressure 118 mm[Hg] Traci Dennison BIOLOGY ADJUNCT INSTRUCTOR Work Phone: [facility] Work Phone: 11-12-2021 09:21-0400 Body height 147.3 cm Myrtle Bergeron DO Work Phone: [facility] 11-12-2021 09:21-0400 Body mass index (BMI) [Ratio] 28.22 kg/m2 Myrtle Bergeron DO Work Phone: [facility] 11-12-2021 09:21-0400 Body temperature 97.9 [degF] Myrtle Bergeron DO Work Phone: [facility] 11-12-2021 09:21-0400 Body weight 61.24 kg Myrtle Bergeron DO Work Phone: [facility] 11-12-2021 09:21-0400 Diastolic blood pressure 72 mm[Hg] Myrtle Bergeron DO Work Phone: [facility] 11-12-2021 09:21-0400 Heart rate 68 /min Myrtle Bergeron DO Work Phone: [facility] 11-12-2021 09:21-0400 Respiratory rate 20 /min Myrtle Bergeron DO Work Phone: [facility] 11-12-2021 09:21-0400 SaO2% (BldA) [Mass fraction] 100 % Myrtle Maciasbal DO Work Phone: [facility] [employer] 11-12-2021 09:21-0400 Systolic blood pressure 112 mm[Hg] Myrtle Maciasbal DO Work Phone: [facility] [employer] [facility] 09-01-2021 16:43-0400 Body temperature 99.19 [degF] Traci Dennison [employer]OP WIRE STRINGER - BIOLOGY ADJUNCT INSTRUCTOR Work Phone: [facility] [employer] [facility] 09-01-2021 16:43-0400 Diastolic blood pressure 73 mm[Hg] Traci Dennison APRN - BIOLOGY ADJUNCT INSTRUCTOR Work Phone: [facility] 09-01-2021 16:43-0400 Heart rate 88 /min Traci Dennison APRN - BIOLOGY ADJUNCT INSTRUCTOR Work Phone: [facility] [employer] [facility] 09-01-2021 16:43-0400 Respiratory rate 15 /min Traci Dennison [employer]OP WIRE STRINGER - BIOLOGY ADJUNCT INSTRUCTOR Work Phone: [facility] [employer] [facility] 09-01-2021 16:43-0400 SaO2% (BldA) [Mass fraction] 100 % Traci Dennison [employer]OP WIRE STRINGER - BIOLOGY ADJUNCT INSTRUCTOR Work Phone: [facility] 09-01-2021 16:43-0400 Systolic blood pressure 116 mm[Hg] Traci Dennison APRN - BIOLOGY ADJUNCT INSTRUCTOR Work Phone: [facility] 08-13-2021 11:32-0400 Body height 149.86 cm Traci Dennison CNP Work Phone: [facility] Work Phone: 08-13-2021 11:32-0400 Body mass index (BMI) [Ratio] 28.2 kg/m2 Traci Dennison CNP Work Phone: [facility] Work Phone: 08-13-2021 11:32-0400 Body surface area Derived from formula 1.58 m2 Traci Dennison CNP Work Phone: [facility] Work Phone: 08-13-2021 11:32-0400 Body surface area Derived from formula 1.6 m2 Traci Dennison CNP Work Phone: [facility] Work Phone: 08-13-2021 11:32-0400 Body temperature 98.2 [degF] Traci Dennison CNP Work Phone: [facility] Work Phone: 08-13-2021 11:32-0400 Body weight 63.41 kg Traci Dennison CNP Work Phone: [facility] Work Phone: 08-13-2021 11:32-0400 Diastolic blood pressure 72 mm[Hg] Traci Dennison CNP Work Phone: [facility] Work Phone: 08-13-2021 11:32-0400 Heart rate 73 /min Traci Dennison CNP Work Phone: [facility] Work Phone: 08-13-2021 11:32-0400 Heart Rate Rhythm 1 1 Traci Dennison CNP Work Phone: [facility] Work Phone: 08-13-2021 11:32-0400 SaO2% (BldA) [Mass fraction] 99 % Traci Dennison CNP Work Phone: [facility] Work Phone: 08-13-2021 11:32-0400 Systolic blood pressure 108 mm[Hg] Traci Dennison BIOLOGY ADJUNCT INSTRUCTOR Work Phone: [facility] Work Phone: 08-11-2021 11:45-0400 Diastolic blood pressure 60 mm[Hg] Braydon Sierra DO Work Phone: [facility] 08-11-2021 11:45-0400 SaO2% (BldA) [Mass fraction] 98 % Braydon Sierra DO Work Phone: [facility] 08-11-2021 11:45-0400 Systolic blood pressure 100 mm[Hg] Braydon Sierra DO Work Phone: [facility] 08-11-2021 09:59-0400 Body mass index (BMI) [Ratio] 29.26 kg/m2 Braydon Sierra DO Work Phone: [facility] 08-11-2021 09:59-0400 Body temperature 97.2 [degF] Braydon Sierra DO Work Phone: [facility] 08-11-2021 09:59-0400 Body weight 63.5 kg Braydon Sierra DO Work Phone: [facility] 08-11-2021 09:59-0400 Heart rate 82 /min Braydon Sierra DO Work Phone: [facility] 08-11-2021 09:59-0400 Respiratory rate 18 /min Braydon Sierra DO Work Phone: [facility] 07-17-2021 10:36-0400 Body height 149.86 cm Traci Dennison BIOLOGY ADJUNCT INSTRUCTOR Work Phone: [facility] Work Phone: 07-17-2021 10:36-0400 Body mass index (BMI) [Ratio] 28.5 kg/m2 Traci Dennison BIOLOGY ADJUNCT INSTRUCTOR Work Phone: [facility] Work Phone: 07-17-2021 10:36-0400 Body surface area Derived from formula 1.59 m2 Traci Dennison CNP Work Phone: [facility] Work Phone: 07-17-2021 10:36-0400 Body surface area Derived from formula 1.6 m2 Traci Dennison CNP Work Phone: [facility] Work Phone: 07-17-2021 10:36-0400 Body temperature 98.7 [degF] Traci Dennison CNP Work Phone: [facility] Work Phone: 07-17-2021 10:36-0400 Body weight 64.05 kg Traci Dennison CNP Work Phone: [facility] Work Phone: 07-17-2021 10:36-0400 Diastolic blood pressure 76 mm[Hg] Traci Dennison BIOLOGY ADJUNCT INSTRUCTOR Work Phone: [facility] Work Phone: 07-17-2021 10:36-0400 Heart rate 75 /min Traci Dennison CNP Work Phone: [facility] Work Phone: 07-17-2021 10:36-0400 Heart Rate Rhythm 1 1 Traci Dennison CNP Work Phone: [facility] Work Phone: 07-17-2021 10:36-0400 SaO2% (BldA) [Mass fraction] 97 % Traci Dennison CNP Work Phone: [facility] Work Phone: 07-17-2021 10:36-0400 Systolic blood pressure 114 mm[Hg] Traci Dennison CNP Work Phone: [facility] Work Phone: 07-03-2021 11:15-0400 Respiratory rate 18 /min Darren House MD [facility] 07-03-2021 10:09-0400 Body temperature 97.81 [degF] Darren House MD [facility] 07-03-2021 10:09-0400 Diastolic blood pressure 85 mm[Hg] Darren House MD [facility] 07-03-2021 10:09-0400 Heart rate 87 /min Darren House MD [facility] [employer] 07-03-2021 10:09-0400 SaO2% (BldA) [Mass fraction] 100 % Darren House MD [facility] [employer] 07-03-2021 10:09-0400 Systolic blood pressure 124 mm[Hg] Darren House MD [facility] [employer] 06-06-2021 17:25-0500 Diastolic blood pressure 78 mm[Hg] Peggy Anna Marie [employer]OP WIRE STRINGER - BIOLOGY [employer]JUNCT INSTRUCTOR Work Phone: [facility] [employer] 06-06-2021 17:25-0500 Heart rate 72 /min Peggy Anna Marie [employer] WIRE STRINGER - BIOLOGY ADJUNCT INSTRUCTOR Work Phone: [employer] 06-06-2021 17:25-0500 SaO2% (BldA) [Mass fraction] 98 % Peggy Thrasher APRN - BIOLOGY ADJUNCT INSTRUCTOR Work Phone: [employer] 06-06-2021 17:25-0500 Systolic blood pressure 138 mm[Hg] Peggy Anna Marie [employer] WIRE STRINGER - BIOLOGY ADJUNCT INSTRUCTOR Work Phone: [facility] [employer] 06-06-2021 14:52-0500 Body mass index (BMI) [Ratio] 28.22 kg/m2 Peggy Thrasher APRN - BIOLOGY ADJUNCT INSTRUCTOR Work Phone: [employer] 06-06-2021 14:52-0500 Body temperature 98.4 [degF] Peggy Thrasher APRN - BIOLOGY ADJUNCT INSTRUCTOR Work Phone: [employer] 06-06-2021 14:52-0500 Body weight 61.24 kg Peggy Anna Marie [employer] WIRE STRINGER - BIOLOGY ADJUNCT INSTRUCTOR Work Phone: [facility] [employer] 06-06-2021 14:52-0500 Respiratory rate 16 /min Peggy Anna Marie COLLIER - BIOLOGY ADJUNCT INSTRUCTOR Work Phone: [employer] 04-15-2021 11:16-0500 Body height 149.86 cm Traci Dennison CNP Work Phone: [facility] Work Phone: 04-15-2021 11:16-0500 Body mass index (BMI) [Ratio] 29.1 kg/m2 Traci Dennison CNP Work Phone: [facility] Work Phone: 04-15-2021 11:16-0500 Body surface area Derived from formula 1.6 m2 Traci Dennison CNP Work Phone: [facility] Work Phone: 04-15-2021 11:16-0500 Body temperature 97.6 [degF] Traci Dennison BIOLOGY ADJUNCT INSTRUCTOR Work Phone: [facility] Work Phone: 04-15-2021 11:16-0500 Body weight 65.32 kg Traci Dennison CNP Work Phone: [facility] Work Phone: 04-15-2021 11:16-0500 Diastolic blood pressure 72 mm[Hg] Traci Dennison BIOLOGY ADJUNCT INSTRUCTOR Work Phone: [facility] Work Phone: 04-15-2021 11:16-0500 Heart rate 80 /min Traci Dennison CNP Work Phone: [facility] Work Phone: 04-15-2021 11:16-0500 Respiratory rate 18 /min Traci Dennison BIOLOGY ADJUNCT INSTRUCTOR Work Phone: [facility] Work Phone: 04-15-2021 11:16-0500 SaO2% (BldA) [Mass fraction] 98 % Traci Dennison BIOLOGY ADJUNCT INSTRUCTOR Work Phone: [facility] Work Phone: 04-15-2021 11:16-0500 Systolic blood pressure 120 mm[Hg] Traci Dennison BIOLOGY ADJUNCT INSTRUCTOR Work Phone: [facility] Work Phone: 04-03-2021 14:04-0500 Body height 149.86 cm Peggy Thrasher CNP Work Phone: [facility] Work Phone: 04-03-2021 14:04-0500 Body mass index (BMI) [Ratio] 28 kg/m2 Peggy Thrasher CNP Work Phone: [facility] Work Phone: 04-03-2021 14:04-0500 Body surface area Derived from formula 1.58 m2 Peggy Thrasher CNP Work Phone: [facility] Work Phone: 04-03-2021 14:04-0500 Body surface area Derived from formula 1.6 m2 Traci Dennison CNP Work Phone: [facility] Work Phone: 04-03-2021 14:04-0500 Body temperature 99.2 [degF] Peggy Thrasher CNP Work Phone: [facility] Work Phone: 04-03-2021 14:04-0500 Body weight 62.96 kg Peggy Thrasher CNP Work Phone: [facility] Work Phone: 04-03-2021 14:04-0500 Diastolic blood pressure 60 mm[Hg] Peggy Thrasher CNP Work Phone: [facility] Work Phone: 04-03-2021 14:04-0500 Heart rate 92 /min Peggy Thrasher CNP Work Phone: [facility] Work Phone: 04-03-2021 14:04-0500 Respiratory rate 18 /min Peggy Thrasher CNP Work Phone: [facility] Work Phone: 04-03-2021 14:04-0500 SaO2% (BldA) [Mass fraction] 95 % Peggy Thrasher CNP Work Phone: [facility] Work Phone: 04-03-2021 14:04-0500 Systolic blood pressure 110 mm[Hg] Peggy Thrasher CNP Work Phone: [facility] Work Phone: 02-14-2021 10:31-0400 Body height 149.86 cm Peggy Thrasher CNP Work Phone: [facility] Work Phone: 02-14-2021 10:31-0400 Body mass index (BMI) [Ratio] 28.2 kg/m2 Peggy Thrasher CNP Work Phone: [facility] Work Phone: 02-14-2021 10:31-0400 Body surface area Derived from formula 1.58 m2 Peggy Thrasher CNP Work Phone: [facility] Work Phone: 02-14-2021 10:31-0400 Body surface area Derived from formula 1.6 m2 Traci Juma BIOLOGY ADJUNCT INSTRUCTOR Work Phone: [facility] Work Phone: 02-14-2021 10:31-0400 Body temperature 96.9 [degF] Peggy Thrasher CNP Work Phone: [facility] Work Phone: 02-14-2021 10:31-0400 Body weight 63.41 kg Peggy Thrasher CNP Work Phone: [facility] Work Phone: 02-14-2021 10:31-0400 Diastolic blood pressure 68 mm[Hg] Peggy Thrasher CNP Work Phone: [facility] Work Phone: 02-14-2021 10:31-0400 Heart rate 87 /min Peggy Thrasher CNP Work Phone: [facility] Work Phone: 02-14-2021 10:31-0400 SaO2% (BldA) [Mass fraction] 97 % Peggy Thrasher CNP Work Phone: [facility] Work Phone: 02-14-2021 10:31-0400 Systolic blood pressure 118 mm[Hg] Peggy Thrasher BIOLOGY ADJUNCT INSTRUCTOR Work Phone: [facility] Work Phone: 02-07-2021 11:47-0400 Body mass index (BMI) [Ratio] 29.26 kg/m2 Serenity Will DO Work Phone: [facility] Work Phone: 02-07-2021 11:47-0400 Body temperature 99.39 [degF] Serenity Will DO Work Phone: [facility] Work Phone: 02-07-2021 11:47-0400 Body weight 63.5 kg Serenity Will DO Work Phone: [facility] Work Phone: 02-07-2021 11:47-0400 Diastolic blood pressure 79 mm[Hg] Serenity Will DO Work Phone: [facility] Work Phone: 02-07-2021 11:47-0400 Heart rate 93 /min Serenity Will DO Work Phone: [facility] Work Phone: 02-07-2021 11:47-0400 Respiratory rate 16 /min Serenity Will DO Work Phone: [facility] Work Phone: 02-07-2021 11:47-0400 SaO2% (BldA) [Mass fraction] 99 % Serenity Will [employer] Work Phone: [facility] Work Phone: 02-07-2021 11:47-0400 Systolic blood pressure 123 mm[Hg] Serenity Will DO Work Phone: [facility] Work Phone: 02-05-2021 17:14-0400 Body height 147.3 cm Мария Yee DO Work Phone: [facility] Work Phone: 02-05-2021 17:14-0400 Body mass index (BMI) [Ratio] 28.22 kg/m2 Мария Yee [employer] Work Phone: [employer] Phone: 02-05-2021 17:14-0400 Body temperature 98.6 [degF] Мария Yee [employer] Work Phone: [employer] Phone: 02-05-2021 17:14-0400 Body weight 61.24 kg Мария Yee [employer] Work Phone: [employer] Phone: 02-05-2021 17:14-0400 Diastolic blood pressure 87 mm[Hg] Мария Yee DO Work Phone: [employer] Phone: 02-05-2021 17:14-0400 Heart rate 87 /min Мария Yee DO Work Phone: [employer] Phone: 02-05-2021 17:14-0400 Respiratory rate 18 /min Мария Yee [employer] Work Phone: [employer] Phone: 02-05-2021 17:14-0400 SaO2% (BldA) [Mass fraction] 99 % Мария Yee [employer] Work Phone: [facility] Work Phone: 02-05-2021 17:14-0400 Systolic blood pressure 111 mm[Hg] Мария Yee DO Work Phone: [facility] Work Phone: 01-29-2021 14:00-0400 Body height 144.8 cm Jarrod Sofia MD Work Phone: [facility] Work Phone: 01-29-2021 14:00-0400 Body mass index (BMI) [Ratio] 30.3 kg/m2 Jarrod Sofia MD Work Phone: [facility] Work Phone: 01-29-2021 14:00-0400 Body temperature 99 [degF] Jarrod Sofia MD Work Phone: [facility] Work Phone: 01-29-2021 14:00-0400 Body weight 63.5 kg Jarrod Sofia MD Work Phone: [facility] Work Phone: 01-29-2021 14:00-0400 Diastolic blood pressure 76 mm[Hg] Jarrod Sofia MD Work Phone: [facility] Work Phone: 01-29-2021 14:00-0400 Heart rate 80 /min Jarrod Sofia MD Work Phone: [facility] Work Phone: 01-29-2021 14:00-0400 Respiratory rate 18 /min Jarrod Sofia MD Work Phone: [facility] Work Phone: 01-29-2021 14:00-0400 SaO2% (BldA) [Mass fraction] 99 % Jrarod Sofia MD Work Phone: [facility] Work Phone: 01-29-2021 14:00-0400 Systolic blood pressure 124 mm[Hg] Jarrod Sofia MD Work Phone: [facility] Work Phone: 01-01-2021 13:54-0400 Body height 144.78 cm Peggy Thrasher CNP Work Phone: [facility] Work Phone: 01-01-2021 13:54-0400 Body mass index (BMI) [Ratio] 31.4 kg/m2 Peggy Thrasher CNP Work Phone: [facility] Work Phone: 01-01-2021 13:54-0400 Body surface area Derived from formula 1.57 m2 Peggy Thrasher CNP Work Phone: [facility] Work Phone: 01-01-2021 13:54-0400 Body weight 65.77 kg Peggy Thrasher CNP Work Phone: [facility] Work Phone: 11-16-2020 11:18-0400 Diastolic blood pressure 79 mm[Hg] Peggy Thrasher [employer]OP WIRE STRINGER - BIOLOGY ADJUNCT INSTRUCTOR Work Phone: [employer] Work Phone: 11-16-2020 11:18-0400 Systolic blood pressure 107 mm[Hg] Peggy Thrasher [employer]OP WIRE STRINGER - BIOLOGY ADJUNCT INSTRUCTOR Work Phone: [facility] Work Phone: 11-16-2020 11:17-0400 Body temperature 98.6 [degF] Peggy Thrasher [employer] WIRE STRINGER - BIOLOGY ADJUNCT INSTRUCTOR Work Phone: [employer] Work Phone: 11-16-2020 11:17-0400 Heart rate 67 /min Peggy Thrasher [employer]OP WIRE STRINGER - BIOLOGY ADJUNCT INSTRUCTOR Work Phone: [employer] Work Phone: 11-16-2020 11:17-0400 Respiratory rate 16 /min Peggy Thrasher [employer] WIRE STRINGER - BIOLOGY ADJUNCT INSTRUCTOR Work Phone: [employer] Work Phone: 11-16-2020 11:17-0400 SaO2% (BldA) [Mass fraction] 100 % Peggy Thrasher [employer] WIRE STRINGER - BIOLOGY ADJUNCT INSTRUCTOR Work Phone: [facility] Work Phone: 10-08-2020 21:55-0400 Body temperature 97.9 [degF] Arlette Mojica MD Work Phone: [facility] Work Phone: 10-08-2020 21:54-0400 Diastolic blood pressure 70 mm[Hg] Arlette Mojica MD Work Phone: [facility] Work Phone: 10-08-2020 21:54-0400 Systolic blood pressure 140 mm[Hg] Arlette Mojica MD Work Phone: [facility] Work Phone: 10-08-2020 21:53-0400 Heart rate 78 /min Arlette Mojica MD Work Phone: [facility] Work Phone: 10-08-2020 21:53-0400 Respiratory rate 17 /min Arlette Mojica MD Work Phone: [facility] Work Phone: 10-08-2020 21:53-0400 SaO2% (BldA) [Mass fraction] 100 % Arlette Mojica MD Work Phone: [facility] Work Phone: 09-04-2020 15:47-0400 Diastolic blood pressure 65 mm[Hg] Peggy Leoen [employer]OP WIRE STRINGER - BIOLOGY ADJUNCT INSTRUCTOR Work Phone: [facility] Work Phone: 09-04-2020 15:47-0400 Heart rate 59 /min Peggy Leoen [employer] WIRE STRINGER - BIOLOGY ADJUNCT INSTRUCTOR Work Phone: [facility] Work Phone: 09-04-2020 15:47-0400 Respiratory rate 16 /min Peggy Thrasher [employer] Work Phone: [facility] Work Phone: 09-04-2020 15:47-0400 SaO2% (BldA) [Mass fraction] 99 % Peggy Thrasher [employer] Work Phone: [facility] Work Phone: 09-04-2020 15:47-0400 Systolic blood pressure 102 mm[Hg] Peggy Thrasher [employer] Work Phone: [facility] Phone: 09-04-2020 14:33-0400 Body height 147.3 cm Peggy Thrasher [employer] Work Phone: [facility] Work Phone: 09-04-2020 14:33-0400 Body mass index (BMI) [Ratio] 29.26 kg/m2 Peggy Thrasher [employer] Work Phone: [facility] Work Phone: 09-04-2020 14:33-0400 Body temperature 98.4 [degF] Peggy Thrasher [employer] Work Phone: [facility] Work Phone: 09-04-2020 14:33-0400 Body weight 63.5 kg Peggy Thrasher [employer] Work Phone: [facility] Work Phone: 06-18-2020 19:27-0500 Body Temperature 97.9 [degF] Katlin Reaves [facility] Work Phone: 06-18-2020 19:27-0500 BP Diastolic 66 mm[Hg] Katlin Reaves [facility] Work Phone: 06-18-2020 19:27-0500 BP Systolic 123 mm[Hg] Katlin Schwartz [facility] Work Phone: 06-18-2020 19:27-0500 Pulse (Heart Rate) 105 /min Katlin Schwartz [facility] Work Phone: 06-18-2020 19:27-0500 Pulse Oximetry 99 % Katlin Schwartz [facility] Work Phone: 06-18-2020 19:27-0500 Respiratory Rate 17 /min [facility] Work Phone: 06-03-2020 18:37-0500 BMI (Body Mass Index) 29.1 kg/m2 [facility] Work Phone: 06-03-2020 18:37-0500 Body Temperature 98.9 [degF] [facility] Work Phone: 06-03-2020 18:37-0500 Body weight 65.32 kg [facility] Work Phone: 06-03-2020 18:37-0500 BP Diastolic 78 mm[Hg] [facility] Work Phone: 06-03-2020 18:37-0500 BP Systolic 108 mm[Hg] [facility] Work Phone: 06-03-2020 18:37-0500 BSA (Body Surface Area) 1.6 m2 [facility] Work Phone: 06-03-2020 18:37-0500 Height 149.86 cm [facility] Work Phone: 06-03-2020 18:37-0500 Pulse (Heart Rate) 79 /min [facility] Work Phone: 06-03-2020 18:37-0500 Pulse Oximetry 98 % [facility] Work Phone: 06-03-2020 18:37-0500 Respiratory Rate 18 /min [facility] 06-03-2020 18:37-0500 SaO2% (BldA) [Mass fraction] 98 % Peggy Thrasher [facility] Work Phone: [facility] Work Phone: 06-01-2020 13:17-0500 BP Diastolic 63 mm[Hg] Peggy Anna Marie [facility] Work Phone: 06-01-2020 13:17-0500 BP Systolic 134 mm[Hg] [facility] 06-01-2020 13:17-0500 Pulse Oximetry 100 % Peggy Anna Marie [facility] Work Phone: 06-01-2020 12:58-0500 Pulse (Heart Rate) 67 /min Peggy Anna Marie [facility] Work Phone: 06-01-2020 12:58-0500 Respiratory Rate 20 /min [facility] Work Phone: 06-01-2020 12:29-0500 BMI (Body Mass Index) 26.26 kg/m2 Peggy Anna Marie [facility] Work Phone: 06-01-2020 12:29-0500 Body Temperature 99 [degF] Peggy Anna Marie [facility] Work Phone: 06-01-2020 12:29-0500 Body weight 58.97 kg [facility] Work Phone: 03-17-2020 14:15-0500 BP Diastolic 70 mm[Hg] [facility]pesh [facility] [place] 03-17-2020 14:15-0500 BP Systolic 103 mm[Hg] Kalpesh [facility] [place] 03-17-2020 14:15-0500 Pulse Oximetry 98 % Kalpesh Schwartz [facility] [place] 03-17-2020 09:46-0500 BMI (Body Mass Index) 26.26 kg/m2 Kalpesh Schwartz [facility], [place] 03-17-2020 09:46-0500 Body Temperature 98.49 [degF] Kalpesh Dillard [facility], [place] 03-17-2020 09:46-0500 Body weight 58.97 kg Kalpesh Schwartz [facility], [place] 03-17-2020 09:46-0500 Pulse (Heart Rate) 75 /min Kalpeshtrini Dillard [facility], [place] 03-17-2020 09:46-0500 Respiratory Rate 18 /min [facility] [place] 01-26-2020 10:59-0400 BMI (Body Mass Index) 20.1 kg/m2 [facility] Work Phone: 01-26-2020 10:59-0400 Body Temperature 99.6 [degF] [facility] Work Phone: 01-26-2020 10:59-0400 Body weight 61.69 kg [facility] Work Phone: 01-26-2020 10:59-0400 BP Diastolic 62 mm[Hg] [facility] Work Phone: 01-26-2020 10:59-0400 BP Systolic 110 mm[Hg] [facility] Work Phone: 01-26-2020 10:59-0400 BSA (Body Surface Area) 1.75 m2 [facility] Work Phone: 01-26-2020 10:59-0400 Flow Rate 0 L/min [facility] Work Phone: 01-26-2020 10:59-0400 Height 175.26 cm [facility] Work Phone: 01-26-2020 10:59-0400 Inhaled Oxygen Concentration 21 % [facility] Work Phone: 01-26-2020 10:59-0400 Pulse (Heart Rate) 85 /min [facility] Work Phone: 01-26-2020 10:59-0400 Pulse Oximetry 99 % [facility] Work Phone: 01-26-2020 10:59-0400 Respiratory Rate 18 /min [facility] Work Phone: 01-24-2020 14:15-0400 BP Diastolic 62 mm[Hg] [facility] Work Phone: 01-24-2020 14:15-0400 BP Systolic 110 mm[Hg] [facility] Work Phone: 01-08-2020 13:09-0400 BMI (Body Mass Index) 27.3 kg/m2 [facility] Work Phone: 01-08-2020 13:09-0400 Body Temperature 97.1 [degF] [facility] Work Phone: 01-08-2020 13:09-0400 Body weight 61.24 kg [facility] Work Phone: 01-08-2020 13:09-0400 BP Diastolic 60 mm[Hg] [facility] Work Phone: 01-08-2020 13:09-0400 BP Systolic 100 mm[Hg] [facility] Work Phone: 01-08-2020 13:09-0400 BSA (Body Surface Area) 1.56 m2 [facility] Work Phone: 01-08-2020 13:09-0400 Height 149.86 cm [facility] Work Phone: 01-08-2020 13:09-0400 Pulse (Heart Rate) 74 /min [facility] Work Phone: 01-08-2020 13:09-0400 Pulse Oximetry 98 % [facility] Work Phone: 01-08-2020 13:09-0400 Respiratory Rate 14 /min [facility] Work Phone: 12-31-2019 01:01-0400 BP Diastolic 48 mm[Hg] [facility] , [place] 12-31-2019 01:01-0400 BP Systolic 115 mm[Hg] [facility] , [place] 12-31-2019 01:01-0400 Pulse (Heart Rate) 71 /min [facility], [place] 12-31-2019 01:01-0400 Pulse Oximetry 100 % [facility] , [place] 12-31-2019 01:01-0400 Respiratory Rate 12 /min [facility] [place] 12-31-2019 00:59-0400 Body Temperature 98.2 [degF] [facility] [place] 12-25-2019 13:07-0400 BMI (Body Mass Index) 26.4 kg/m2 [facility] Work Phone: 12-25-2019 13:07-0400 Body Temperature 97.8 [degF] [facility] Work Phone: 12-25-2019 13:07-0400 Body weight 59.24 kg [facility] Work Phone: 12-25-2019 13:07-0400 BP Diastolic 80 mm[Hg] [facility] Work Phone: 12-25-2019 13:07-0400 BP Systolic 110 mm[Hg] [facility] Work Phone: 12-25-2019 13:07-0400 BSA (Body Surface Area) 1.54 m2 [facility] Work Phone: 12-25-2019 13:07-0400 Height 149.86 cm [facility] Work Phone: 12-25-2019 13:07-0400 Pulse (Heart Rate) 87 /min [facility] Work Phone: 12-25-2019 13:07-0400 Pulse Oximetry 99 % [facility] Work Phone: 12-25-2019 13:07-0400 Respiratory Rate 18 /min [facility] Work Phone: 12-24-2019 22:49-0400 Body Temperature 97 [degF] [facility] [place] 12-24-2019 22:49-0400 BP Diastolic 98 mm[Hg] [facility] [place] 12-24-2019 22:49-0400 BP Systolic 144 mm[Hg] [facility]rod [facility]Ins[employer] [facility] [place] 12-24-2019 22:49-0400 Pulse (Heart Rate) 87 /min Jarrod Tissue [employer] [facility], [place] 12-24-2019 22:49-0400 Pulse Oximetry 97 % Jarrod [employer] [facility] , [place] 12-24-2019 22:49-0400 Respiratory Rate 18 /min [facility] [place] 12-14-2019 14:21-0400 BP Diastolic 61 mm[Hg] [facility] [place] 12-14-2019 14:21-0400 BP Systolic 104 mm[Hg] Natan Lopez [facility], [place] 12-14-2019 14:21-0400 Pulse (Heart Rate) 59 /min [facility] [place] 12-14-2019 14:21-0400 Respiratory Rate 14 /min Natan Schwartz [facility], [place] 12-14-2019 12:52-0400 Pulse Oximetry 98 % Natan Lopez [facility], [place] 12-14-2019 09:54-0400 BMI (Body Mass Index) 26.26 kg/m2 Natan Lopez [facility], [place] 12-14-2019 09:54-0400 Body Temperature 97.9 [degF] [facility] [place] [place] 12-14-2019 09:54-0400 Body weight 58.97 kg Natan Lopez [facility], [place] 12-14-2019 09:54-0400 Height 149.9 cm Natan Lopez [facility], [place] 11-29-2019 09:00-0400 BP Diastolic 60 mm[Hg] [facility] [place] 11-29-2019 09:00-0400 BP Systolic 99 mm[Hg] [facility] [place] 11-29-2019 06:33-0400 Pulse Oximetry 100 % [facility] [place] 11-29-2019 06:31-0400 BMI (Body Mass Index) 27.17 kg/m2 [facility], [place] 11-29-2019 06:31-0400 Body Temperature 97.9 [degF] [facility], [place] 11-29-2019 06:31-0400 Body weight 58.97 kg [facility] , [place] 11-29-2019 06:31-0400 Height 147.3 cm [facility] [place] 11-29-2019 06:31-0400 Pulse (Heart Rate) 76 /min [facility] 11-29-2019 06:31-0400 Respiratory Rate 18 /min [facility], [place] 12-30-2018 05:48-0400 Body Temperature 97.39 [degF] Regino Schwartz [employer] , [place] 12-30-2018 05:48-0400 BP Diastolic 77 mm[Hg] Regino Schwartz [facility] , [place] 12-30-2018 05:48-0400 BP Systolic 142 mm[Hg] Regino Schwartz [facility] , [place] 12-30-2018 05:48-0400 Pulse (Heart Rate) 74 /min Regino Schwartz [facility], [place] 12-30-2018 05:48-0400 Pulse Oximetry 99 % Regino Schwartz [facility] , [place] 12-30-2018 05:48-0400 Respiratory Rate 12 /min Regino Schwartz [facility], [place] Encounters Encounter Date Encounter Type Care Provider Facility Start: 06-03-2023 ambulatory Srinivasa Ward CNP [facility] Start: 03-08-2023 End: 03-08-2023 [facility] visit, estab pt Hannah ROY Work Phone: [facility] Work Phone: Start: 03-08-2023 End: 03-08-2023 [facility] visit, estab pt Srinivasa Ward CNP Work Phone: [facility] Work Phone: Start: 02-19-2023 End: 02-20-2023 ambulatory SRINIVASA WARD [facility] Start: 02-19-2023 End: 02-19-2023 [facility] visit, estab pt Lea SIMPSON-S Work Phone: [facility] Work Phone: Start: 02-19-2023 End: 02-19-2023 ambulatory Srinivasa Ward CNP Work Phone: [facility] Work Phone: Start: 02-06-2023 End: 02-06-2023 ambulatory SRINIVASA WARD [facility] Start: 02-05-2023 End: 02-05-2023 [facility] visit, estab pt Srinivasa Ed [employer] IN[employer] Work Phone: [facility] Work Phone: Start: 01-28-2023 End: 01-28-2023 Emergency department patient visit SRINIVASA Rodríguez [facility] Start: 01-28-2023 End: 01-28-2023 [facility] visit, estab pt Srinivasa Ed [employer] INSTRUCTOR Work Phone: [facility] Work Phone: Start: 12-31-2022 End: 12-31-2022 [facility] visit, estab pt Srinivasa Ed [employer]JUN[employer] INSTRUCTOR Work Phone: [facility] Work Phone: Start: 12-30-2022 End: 12-31-2022 ambulatory Mirza Amanda [employer] W[employer] STRINGER-BIOLOGY ADJUNCT INSTRUCTOR Facility:[facility] Start: 11-30-2022 End: 11-30-2022 Adult health examination Srinivasa Ed [employer] INSTRUCTOR Work Phone: [facility] [facility] Work Phone: Start: 11-30-2022 End: 11-30-2022 FQHC visit, estab pt Srinivasa Ed BIOLOGY ADJUNCT INSTRUCTOR Work Phone: [facility] Work Phone: Start: 09-09-2022 End: 09-09-2022 ambulatory NONE LISTED REQUEST Facility:H1 Start: 08-12-2022 ambulatory Sirena bustilloty:[facility] Start: 08-05-2022 End: 08-06-2022 ambulatory NONE LISTED REQUEST Facility:H1 Start: 07-03-2022 End: 07-03-[address] SUMAN CUETO . Facility:[facility]1 Start: 06-07-2022 End: 06-08-2022 Emergency department patient visit SERENITY WILL [facility] Start: 06-07-2022 End: 06-08-2022 Emergency department patient visit Serenity Will DO Work Phone: [facility] ED Comment on above: Nausea vomiting and diarrhea (Primary Dx) Start: 05-01-2022 End: 05-02-2022 ambulatory Mirza Amanda DROP WIRE STRINGER-BIOLOGY ADJUNCT INSTRUCTOR Facility:[facility] Start: 04-23-2022 Emergency department patient visit SRINIVASA WARD [facility] Start: 04-21-2022 End: 04-22-2022 ambulatory Kate Burris PA-C Facility:[facility] - [facility] Start: 04-17-2022 End: 04-20-2022 ambulatory BRYANT MACHADO [facility] Start: 04-07-2022 End: 04-08-2022 ambulatory Duc Rascon MD Facility:[facility] - 3 Start: 03-23-2022 ambulatory Dede Rincon MD Facility :[facility] - 3 Start: 03-15-2022 End: 03-15-2022 Emergency department patient visit ARLETTE MOJICA [facility] Start: 02-19-2022 End: 02-19-2022 Subsequent hospital visit by physician Shanda [employer] Cutter Count includes the [facility] EKG Comment on above: Palpitations Start: 01-22-2022 End: 01-22-2022 Patient encounter procedure Srinivasa Ward ABENA Work Phone: [facility] Work Phone: Start: 01-22-2022 End: 01-22-2022 [facility]HC visit, [facility] Work [facility]: [facility] Work Phone: Start: 01-22-2022 End: 01-22-2022 Patient encounter procedure Jodie Shannon PHARMD Work Phone: [facility] Work Phone: Start: 01-20-2022 End: 01-20-2022 ambulatory VICK DEL REAL Facility:H1 Start: 01-19-2022 End: 01-19-2022 ambulatory VICK DEL REAL Facility:[facility]1 Start: 12-22-2021 End: 09-14-2022 Subsequent hospital visit by physician [facility] Nuclear Room [facility] Nuclear Medicine Comment on above: Arrived Diarrhea, unspecifie d type Start: 12-11-2021 End: 12-11-2021 Subsequent hospital visit by physician Traci Dennison APRN - BIOLOGY ADJUNCT INSTRUCTOR Work Phone: [facility] Start: 12-11-2021 End: 12-11-2021 General Srinivasa Ward BIOLOGY ADJUNCT INSTRUCTOR Work Phone: [facility] Work Phone: Start: 12-11-2021 End: 12-11-2021 FQHC visit, estab pt Ina Díaz [facility] Work Phone: [facility] Work Phone: Start: 12-11-2021 End: 12-11-2021 FQHC visit, estab pt Ina Díaz LPCC-S Work Phone: [facility] Work Phone: Start: 12-08-2021 End: 12-08-2021 Subsequent hospital visit by physician Traci Dennison APRN - BIOLOGY ADJUNCT INSTRUCTOR Work Phone: [facility] Start: 11-25-2021 End: 11-25-2021 FQHC visit, estab pt Ina Díaz LP[facility]-S Work Phone: [facility] Work Phone: Start: 11-25-2021 End: 11-25-2021 FQHC visit, estab pt Traci Dennison BIOLOGY ADJUNCT INSTRUCTOR Work Phone: [facility] Work Phone: Start: 11-12-2021 End: 11-12-2021 Emergency department patient visit Myrtle Bergeron DO Work Phone: [facility] ED Comment on above: Gastroenteritis (Reba sukhdeep Dx) Start: 09-01-2021 End: 09-01-2021 Emergency department patient visit Traci Dennison APRN - BIOLOGY ADJUNCT INSTRUCTOR Work Phone: [facility] ED Comment on above: Folliculitis (Primar y Dx); Possible exposure to STD Start: 08-13-2021 End: 08-13-2021 FQ visit, estab pt Traci Dennison [facility] Work Phone: [facility] Work Phone: Start: 08-11-2021 End: 08-11-2021 Emergency department patient visit Braydon Sierra DO Work Phone: [facility] ED Comment on above: Periumbilical abdomi nal pain (Primary Dx) Start: 07-17-2021 End: 07-17-2021 General Traci Dennison [facility] Work Phone: [facility] Work Phone: Start: 07-17-2021 End: 07-17-2021 Abnormal finding on evaluation procedure Traci Dennison BIOLOGY ADJUNCT INSTRUCTOR Work Phone: [facility] Work Phone: Start: 07-17-2021 End: 07-17-2021 Adult health examination Traci Dennison BIOLOGY ADJUNCT INSTRUCTOR Work Phone: [facility] Work Phone: Start: 07-17-2021 End: 07-17-2021 FQ visit, estab pt Traci Dennison BIOLOGY ADJUNCT INSTRUCTOR Work Phone: [facility] Work Phone: Start: 07-16-2021 End: 07-16-2021 Telemedicine consultation with patient Traci Dennison CNP Work Phone: [facility] Work Phone: Start: 07-03-2021 End: 07-03-2021 Emergency department patient visit Darren House MD [facility] ED Comment on above: Right shoulder injur y, initial encounter (Primary Dx) Start: 06-06-2021 End: 06-06-2021 Emergency department patient visit Peggy Anna Marie COLLIER - BIOLOGY ADJUNCT INSTRUCTOR Work Phone: [facility] ED Comment on above: Pain of upper abdome n (Primary Dx) Start: 04-15-2021 End: 04-15-2021 FQHC visit, estab pt Farrah Jarrett [facility] Work Phone: [facility] Work Phone: Start: 04-15-2021 End: 04-29-2021 Telemedicine consultation with patient Traci Dennison BIOLOGY ADJUNCT INSTRUCTOR Work Phone: [facility] Work Phone: Start: 04-15-2021 End: 04-29-2021 General Traci Dennison BIOLOGY ADJUNCT INSTRUCTOR Work Phone: [facility] Work Phone: Start: 04-15-2021 End: 04-29-2021 General Traci Dennison BIOLOGY ADJUNCT INSTRUCTOR Work Phone: [facility] Work Phone: Start: 04-15-2021 End: 04-15-2021 FQHC visit, estab pt Traci Dennison BIOLOGY ADJUNCT INSTRUCTOR Work Phone: [facility] Work Phone: Start: 04-03-2021 End: 04-03-2021 FQHC visit, estab pt Hannah ROY Work Phone: [facility] Work Phone: Start: 04-03-2021 End: 04-03-2021 FQHC visit, estab pt Traci Dennison BIOLOGY ADJUNCT INSTRUCTOR Work Phone: [facility] Work Phone: Start: 04-03-2021 End: 04-03-2021 General Farrah Jarrett [facility] Work Phone: [facility] Work Phone: Start: 02-14-2021 End: 02-14-2021 FQHC visit, estab pt Peggy Thrasher BIOLOGY ADJUNCT INSTRUCTOR Work Phone: [facility] Work Phone: Start: 02-07-2021 End: 02-07-2021 Emergency department patient visit Serenity Pineda Will DO Work Phone: [facility] ED Comment on above: Abdominal pain, epig astric (Primary Dx); Non-intractable vomiting with nausea, unspecified vomiting type; Diarrhea, unspecified type Start: 02-05-2021 End: 02-05-2021 Emergency department patient visit Мария Yee DO Work Phone: [facility] ED Comment on above: Abdominal pain, epig astric (Primary Dx) Start: 01-29-2021 End: 01-29-2021 Emergency department patient visit Jarrod Sofia MD Work Phone: [facility] ED Comment on above: Suspected COVID-19 v irus infection (Primary Dx) Start: 01-01-2021 End: 01-01-2021 Telemedicine consultation with patient Traci Dennison ABENA Work Phone: [facility] Work Phone: Start: 11-16-2020 End: 11-16-2020 Emergency department patient visit Peggy Anna Marie DROP WIRE STRINGER - BIOLOGY ADJUNCT INSTRUCTOR Work Phone: [facility] ED Comment on above: Injury of right wris t, initial encounter (Primary Dx) Start: 10-08-2020 End: 10-08-2020 Emergency department patient visit Arlette Mojica MD Work Phone: [facility] ED Comment on above: Infective otitis ext ivette of left ear (Primary Dx); Acute serous otitis media, recurrence not specified, unspecified laterality Start: 09-04-2020 End: 09-04-2020 Emergency department patient visit Peggy Anna Marie DROP WIRE STRINGER - BIOLOGY ADJUNCT INSTRUCTOR Work Phone: [facility] ED Comment on above: Abdominal pain, epig astric (Primary Dx) Start: 06-18-2020 End: 06-18-2020 Emergency department patient visit Katlin Reaves Work Phone: [facility] ED Comment on above: Chronic abdominal pa in (Primary Dx) Start: 06-03-2020 End: 06-03-2020 Established patient Farrah Jarrett Work Phone: [facility] Work Phone: Start: 06-03-2020 End: 06-03-2020 Established patient Traci Dennison Work Phone: [facility] Work Phone: Start: 06-02-2020 End: 06-02-2020 Subsequent hospital visit by physician Peggy Thrasher [facility] Start: 06-01-2020 End: 06-01-2020 Emergency department patient visit [facility] ED Comment on above: Left upper quadrant abdominal pain (Primary Dx) Start: 03-17-2020 End: 03-17-2020 Emergency department patient visit Kalpesh Dillard Work Phone: [facility] ED Comment on above: Seizure (HCC) (Prima ry Dx); Noncompliance; Chest pain, atypical; Chest pain at rest; Marijuana use Start: 02-29-2020 End: 02-29-2020 Subsequent hospital visit by physician [facility] Covid Screening Schedule [facility] Covid Screening Comment on above: Viral gastroenteriti s; Suspected COVID-19 virus infection Start: 01-26-2020 End: 01-26-2020 Established patient Traci Dennison Work Phone: [facility] Work Phone: Start: 01-24-2020 End: 01-24-2020 Patient encounter procedure [address] Work Phone: [facility] Work Phone: Start: 01-08-2020 End: 01-08-2020 Established patient Hannah Rivera Work Phone: [facility] Work Phone: Start: 01-08-2020 End: 01-08-2020 Established patient Peggy Thrasher Work Phone: [facility] Work Phone: Start: 01-03-2020 End: 01-03-2020 Patient encounter procedure Poly Champ Work Phone: [facility] Work Phone: Start: 01-03-2020 Comprehensve oral evaluation Poly Oakes Work Phone: [facility] Work Phone: Start: 12-31-2019 End: 12-31-2019 Emergency department patient visit Regino Aguilar Work Phone: [facility] ED Comment on above: Cellulitis of right foot (Primary Dx) Start: 12-26-2019 End: 12-28-2019 Subsequent hospital visit by physician Shanda Dodson Dr Room 2 [facility] Laboratory Comment on above: Chest pain on breath ing Start: 12-25-2019 End: 12-25-2019 Established patient Hannah Rivera Work Phone: [facility] Work Phone: Start: 12-24-2019 End: 12-25-2019 Emergency department patient visit Jarrod Sofia Work Phone: [facility] ED Comment on above: Strain of lumbar reg ion, initial encounter (Primary Dx) Start: 12-14-2019 End: 12-14-2019 Emergency department patient visit Natan Lopez [facility] ED Comment on above: Non-surgical abdomin al pain (Primary Dx) Start: 11-29-2019 End: 11-29-2019 Emergency department patient visit Regino Aguilar Work Phone: [facility] ED Comment on above: Left lower quadrant abdominal pain (Primary Dx); Abdominal pain, unspecified abdominal location; Hydrosalpinx Start: 12-30-2018 End: 12-30-2018 Emergency department patient visit Regino Aguilar Work Phone: [facility] ED Comment on above: Viral URI with cough (Primary Dx) Procedures Date Procedure Procedure Detail Performing Clinician Start: 03-08-2023 Most recent diastolic blood pressure < 80 mm hg Srniivasa Ward CNP Work Phone: Start: 03-08-2023 Most recent systolic blood pressure <130 mm hg Srinivasa Ward BIOLOGY ADJUNCT INSTRUCTOR Work Phone: Start: 03-08-2023 Psychotherapy w/patient 30 minutes Hannah ROY Work Phone: Start: 02-19-2023 Current tobacco smoker Srinivasa Ward CNP Work Phone: Start: 02-19-2023 Most recent diastolic blood pressure 80-89 mm hg Srinivasa Ward CNP Work Phone: Start: 02-19-2023 Most recent systolic blood pressure <130 mm hg Srinivasa Ward CNP Work Phone: Start: 02-19-2023 Psychotherapy w/patient 30 minutes Lea DALTONW-S Work Phone: Start: 02-19-2023 Pt scrnd tobacco use rcvd tobacco cessation talk Srinivasa Ward CNP Work Phone: Start: 02-19-2023 Urnls dip stick/tablet rgnt non-auto w/o micrscp Srinivasa Ward CNP Work Phone: Start: 01-28-2023 Current tobacco smoker Srinivasa Ward CNP Work Phone: Start: 01-28-2023 Ketorolac tromethamine inj Srinivasa Ward CNP Work Phone: Start: 01-28-2023 Most recent diastolic blood pressure < 80 mm hg Srinivasa Ward CNP Work Phone: Start: 01-28-2023 Most recent systolic blood pressure <130 mm hg Srinivasa Ward CNP Work Phone: Start: 01-28-2023 Pt scrnd tobacco use rcvd tobacco cessation talk Srinivasa Ward CNP Work Phone: Start: 12-31-2022 Asthma Control Test/Baseline Evaluation Srinivasa Ward CNP Work Phone: Start: 12-31-2022 Most recent diastolic blood pressure < 80 mm hg Srinivasa Ward CNP Work Phone: Start: 12-31-2022 Most recent systolic blood pressure <130 mm hg Srinivasa Ward CNP Work Phone: Start: 12-31-2022 Pt scrnd tobacco use rcvd tobacco cessation talk Srinivasa Ward CNP Work Phone: Start: 11-30-2022 Current tobacco smoker Srinivasa Ward BIOLOGY ADJUNCT INSTRUCTOR Work Phone: Start: 11-30-2022 Hemoglobin glycosylated a1c Srinivasa Ward CNP Work Phone: Start: 11-30-2022 Hysterectomy Srinivasa Ward CNP Work Phone: Start: 11-30-2022 Most recent hemoglobin a1c level < 7.0% Srinivasa Ward BIOLOGY ADJUNCT INSTRUCTOR Work Phone: Start: 11-30-2022 Pt scrnd tobacco use rcvd tobacco cessation talk Srinivasa Ward BIOLOGY ADJUNCT INSTRUCTOR Work Phone: Start: 11-30-2022 Surgical procedure Srinivasa Ward BIOLOGY ADJUNCT INSTRUCTOR Work Phone: Start: 06-07-2022 Comprehensive metabolic panel Serenity Will DO Work Phone: Start: 06-07-2022 Urinalysis microscopic only Serenity Will DO Work Phone: Start: 06-07-2022 Urnls dip stick/tablet rgnt auto w/o microscopy Serenity Will DO Work Phone: Start: 01-22-2022 Current tobacco smoker Srinivasa Ward ABENA Work Phone: Start: 01-22-2022 Most recent diastolic blood pressure 80-89 mm hg Srinivasa Ward ABENA Work Phone: Start: 01-22-2022 Most recent systolic blood pressure <130 mm hg Srinivasa Ward ABENA Work Phone: Start: 01-22-2022 Pt scrnd tobacco use rcvd tobacco cessation talk Srinivasa Ward ABENA Work Phone: Start: 12-22-2021 Gastric emptying imaging study Mirza Amanda APRN - BIOLOGY ADJUNCT INSTRUCTOR Work Phone: Start: 12-11-2021 Current tobacco smoker Srinivasa Ward ABENA Work Phone: Start: 12-11-2021 Most recent diastolic blood pressure < 80 mm hg Srinivasa Ward [facility] Work Phone: Start: 12-11-2021 Most recent systolic blood pressure <130 mm hg Srinivasa Ward [facility] Work Phone: Start: 12-11-2021 Psychotherapy w/patient 30 minutes Ina Díaz [facility] Work Phone: Start: 12-11-2021 Pt scrnd tobacco use rcvd tobacco cessation talk Srinivasa Ward [facility] Work Phone: Start: 12-11-2021 Urnls dip stick/tablet rgnt non-auto w/o micrscp Srinivasa Ward [facility] Work Phone: Start: 12-08-2021 Toxin/antitoxin assay tissue culture Mirza Harvey Vasiliy [facility] Work Phone: Start: 11-25-2021 Most recent diastolic blood pressure 80-89 mm hg Traci Juma [facility] Work Phone: Start: 11-25-2021 Most recent systolic blood pressure <130 mm hg Traci Juma [facility] Work Phone: Start: 11-25-2021 Psychotherapy w/patient 30 minutes Ina Díaz [facility] Work Phone: Start: 11-25-2021 Urnls dip stick/tablet rgnt non-auto w/o micrscp Tracialyx Dennison [facility] Work Phone: Start: 11-12-2021 Urnls dip stick/tablet reagent auto microscopy Myrtle Aguayo Bergeron DO Work Phone: Start: 11-12-2021 Ct abdomen & pelvis w/contrast material Myrtle Aguayo Bergeron DO Work Phone: Start: 11-12-2021 COVID-19, RAPID Myrtle Aguayo Bergeron DO Work Phone: Start: 11-12-2021 Comprehensive metabolic panel Myrtle Aguayo Bergeron DO Work Phone: Start: 09-01-2021 Urine test visual color cmprsn meths Arlette Mojica MD Work Phone: Start: 09-01-2021 Urnls dip stick/tablet reagent auto microscopy Arlette Mojica MD Work Phone: Start: 08-11-2021 Urnls dip stick/tablet rgnt auto w/o microscopy Braydon Dillonangusstormy DO Work Phone: Start: 08-11-2021 COVID-19, RAPID Braydon Aguayo Riog DO Work Phone: Start: 08-11-2021 End: 08-11-2021 Iaadiadoo influenza Braydon Aguayo Rigo DO Work Phone: Start: 08-11-2021 Comprehensive metabolic panel Braydon Dillonangusstormy DO Work Phone: Start: 07-17-2021 Hyperlipidemia screening Visit For: Screening Exam Lipoid Disorders Traci Dennison [facility] Work Phone: Start: 07-17-2021 Iaadiadoo streptococcus group a Traci Juma [facility] Work Phone: Start: 07-17-2021 Most recent diastolic blood pressure < 80 mm hg Traci Dennison [facility] Work Phone: Start: 07-17-2021 Most recent systolic blood pressure <130 mm hg Traci Juma [facility] Work Phone: Start: 07-03-2021 End: 07-03-2021 Radex clavicle complete Darren House MD Start: 06-06-2021 Ct abdomen & pelvis w/contrast material Suellen Brewster PA-C Work Phone: Start: 06-06-2021 Ecg routine ecg w/least 12 lds w/i&r Suellen Brewster PA-C Work Phone: Start: 06-06-2021 Assay of lipase Suellen Brewster PA-C Work Phone: Start: 06-06-2021 Urinalysis microscopic only Suellen Brewster PA-C Work Phone: Start: 06-06-2021 Urnls dip stick/tablet rgnt auto w/o microscopy Suellen Brewster PA-C Work Phone: Start: 04-15-2021 Most recent diastolic blood pressure < 80 mm hg Traci Dennison BIOLOGY ADJUNCT INSTRUCTOR Work Phone: Start: 04-15-2021 Most recent systolic blood pressure <130 mm hg Traci Dennison BIOLOGY ADJUNCT INSTRUCTOR Work Phone: Start: 04-15-2021 Psychotherapy w/patient 30 minutes Farrah Jarrett [facility] Work Phone: Start: 04-10-2021 Gastroenterology Traci Dennison BIOLOGY ADJUNCT INSTRUCTOR Work Phone: Start: 04-09-2021 Psychotherapy w/patient 30 minutes Farrah Jarrett [facility] Work Phone: Start: 04-03-2021 Most recent diastolic blood pressure < 80 mm hg Traci Dennison BIOLOGY ADJUNCT INSTRUCTOR Work Phone: Start: 04-03-2021 Most recent systolic blood pressure <130 mm hg Traci Dennison BIOLOGY ADJUNCT INSTRUCTOR Work Phone: Start: 04-03-2021 Psychotherapy w/patient 30 minutes Hannah ROY Work Phone: Start: 04-03-2021 Urnls dip stick/tablet rgnt non-auto w/o micrscp Traci Dennison BIOLOGY ADJUNCT INSTRUCTOR Work Phone: Start: 04-03-2021 Venereal disease screening Visit For: Screening Exam Std Traci Dennison CNP Work Phone: Start: 02-14-2021 Antibody hiv-1&hiv-2 single result Peggy Thrasher BIOLOGY ADJUNCT INSTRUCTOR Work Phone: Start: 02-14-2021 Current tobacco smoker Peggy Thrasher BIOLOGY ADJUNCT INSTRUCTOR Work Phone: Start: 02-14-2021 Most recent diastolic blood pressure < 80 mm hg Peggy Anna Marie BIOLOGY ADJUNCT INSTRUCTOR Work Phone: Start: 02-14-2021 Most recent systolic blood pressure <130 mm hg Peggy Thrasher CNP Work Phone: Start: 02-14-2021 Pt scrnd tobacco use rcvd tobacco cessation talk Peggy Thrasher CNP Work Phone: Start: 02-14-2021 Pt-focused hlth risk assmt score doc stnd instrm Peggy Thrasher CNP Work Phone: Start: 02-07-2021 Basic metabolic panel calcium total Serenity Will DO Work Phone: Start: 02-07-2021 Hepatic function panel Serenity R Suman DO Work Phone: Start: 02-07-2021 Urinalysis microscopic only Serenity Will DO Work Phone: Start: 02-07-2021 Urnls dip stick/tablet rgnt auto w/o microscopy Serenity Will DO Work Phone: Start: 02-05-2021 Ecg routine ecg w/least 12 lds w/i&r Мария Yee DO Work Phone: Start: 02-05-2021 Assay of lipase Мария Yee DO Work Phone: Start: 02-05-2021 Lactate [Moles/volume] in Serum or Plasma Мария Yee DO Work Phone: Start: 11-16-2020 End: 11-16-2020 Radex forearm 2 views Kalpesh Burris Work Phone: Start: 09-04-2020 Radiologic exam abdomen 1 view Kirk Burris [employer] Work Phone: Start: 09-04-2020 Us abdominal real time w/image limited Kirk Burris [employer] Work Phone: Start: 09-04-2020 Assay of amylase Kirk Burris Yen PA-[employer] Work Phone: Start: 09-04-2020 Urinalysis microscopic only Kirk Burris [email or web address] Work Phone: Start: 09-04-2020 Urnls dip stick/tablet rgnt auto w/o microscopy Kirk Barlow PA-C Work Phone: Start: 06-03-2020 Psychotherapy w/patient 30 minutes Farrah Jarrett Work Phone: Start: 06-02-2020 SPECIMEN REJECTION David Fish Work Phone: Start: 06-01-2020 Ct abdomen & pelvis w/contrast material David Fish Work Phone: Start: 06-01-2020 Urnls dip stick/tablet rgnt auto w/o microscopy David Fish Work Phone: Start: 06-01-2020 Assay of amylase David Fish Work Phone: Start: 06-01-2020 Assay of lipase David Fish Work Phone: Start: 06-01-2020 Blood count complete auto&auto difrntl wbc David Fish Work Phone: Start: 06-01-2020 Gonadotropin chorionic qualitative David Fish Work Phone: Start: 06-01-2020 Lactate [Moles/Vol] David Fish Work Phone: Start: 03-17-2020 Drug screen class list a Kalpesh Crismar u Work Phone: Start: 03-17-2020 Urinalysis microscopic only Kalpesh Hortencia dorothy Work Phone: Start: 03-17-2020 Urnls dip stick/tablet rgnt auto w/o microscopy Kalpesh Crismaru Work Phone: Start: 03-17-2020 Assay of troponin quantitative Kalpesh Crismaru Work Phone: Start: 03-17-2020 Radiologic exam chest single view Kalpesh Crismaru Work Phone: Start: 03-17-2020 Assay of troponin quantitative Kalpesh Crismaru Work Phone: Start: 03-17-2020 Ecg routine ecg w/least 12 lds w/i&r Kalpesh Dillard Work Phone: Start: 01-24-2020 Extraction erupted tooth/exr [address] Work Phone: Start: 01-08-2020 Diast bp <80 mm hg Peggy Thrasher Work Phone: Start: 01-08-2020 Hemoglobin glycosylated a1c Peggy Thrasher Work Phone: Start: 01-08-2020 Psychotherapy w/patient 30 minutes Hannah Rivera Work Phone: Start: 01-08-2020 Pt tobacco screen rcvd tlk Peggy Thrasher Work Phone: Start: 01-08-2020 Pt-focused hlth risk assmt score doc stnd instrm Peggy Thrasher Work Phone: Start: 01-08-2020 Syst bp lt 130 mm hg Peggy Thrasher Work Phone: Start: 01-03-2020 Caries risk assess high risk Poly Coil Work Phone: Start: 01-03-2020 Intraoral periapical ea add Poly Coil Work Phone: Start: 01-03-2020 Intraoral periapical first Poly Coil Work Phone: Start: 01-03-2020 Panoramic image Poly Coil Work Phone: Start: 12-31-2019 Radex foot complete minimum 3 views Regino A Jeff Work Phone: Start: 12-26-2019 Radiologic exam chest 2 views Peggy Thrasher Work Phone: Start: 12-26-2019 Assay of thyroid stimulating hormone tsh Peggy Sheikh Anna Marie Work Phone: Start: 12-26-2019 Lipid panel Peggy Thrasher Work Phone: Start: 12-25-2019 ASTHMA Peggy Thrasher Start: 12-25-2019 BIPOLAR DISORDER NOS Peggyisis Thrasher Start: 12-25-2019 DEPRESSION Peggy Thrasher Start: 12-25-2019 EPILEPSY Peggy Anna Marie Start: 12-25-2019 Hernia repair Peggy Thrasher Start: 12-25-2019 KERATITIS FOLLICULARIS (DARIER'S DISEASE) Peggy Thrasher Start: 12-25-2019 Lig/trnsxj flp tube abdl/vag appr uni/bi Peggy Thrasher Start: 12-25-2019 Ligation of fallopian tube Peggy Thrasher Start: 12-25-2019 OVARIAN CYST Peggy Thrasher Start: 12-25-2019 POST-TRAUMATIC STRESS DISORDER Peggy Thrasher Start: 12-25-2019 PSYCHIATRIC DISORDERS Peggy Thrasher Start: 12-25-2019 Psychotherapy w/patient 30 minutes [employer] Work Phone: Start: 12-25-2019 SCHIZOPHRENIA Peggy Anna Marie Start: 12-25-2019 Surgical procedure Peggy Thrasher Start: 12-25-2019 Tonsillectomy Peggy Thrasher Start: 12-25-2019 Tonsillectomy & adenoidectomy Peggy Thrasher Start: 12-25-2019 Tonsillectomy and adenoidectomy Peggy Thrasher Start: 12-25-2019 Tonsillectomy primary/secondary Peggy Thrasher Start: 12-25-2019 Unlisted procedure abdomen peritoneum & omentum Peggy Thrasher Start: 12-24-2019 Radex spine lumbosacral 2/3 views Jarrod E Eiyasmin Work Phone: Start: 12-24-2019 Radex spine thoracic 2 views Jarrod E Gorb Work Phone: Start: 12-24-2019 Radiologic examination pelvis 1/2 views Jarrod E [employer] Work Phone: Start: 12-14-2019 Us transvaginal Natan cooper Start: 12-14-2019 Ct abdomen & pelvis w/contrast material Natan Lopez Start: 12-14-2019 Basic metabolic panel calcium total Natan Lopez Start: 12-14-2019 Blood count complete auto&auto difrntl wbc Natan Lopez Start: 12-14-2019 Urnls dip stick/tablet reagent auto microscopy Natan Lopez Start: 11-29-2019 Us transvaginal Jarrod Jennifer Sofia Work Phone: Start: 11-29-2019 Ct abdomen & pelvis w/contrast material Reginokia Aguilar Work Phone: Start: 11-29-2019 Urnls dip stick/tablet rgnt auto w/o microscopy Reginokia Aguilar Work Phone: Start: 11-29-2019 Assay of lipase Reginokia Baconin Work Phone: Start: 11-29-2019 Blood count complete auto&auto difrntl wbc Reginokia Aguilar Work Phone: Start: 11-29-2019 Gonadotropin chorionic qualitative Reginokia Baconin Work Phone: Start: 12-30-2018 Radiologic exam chest 2 views Reginokia Aguilar Work Phone: Plan of Treatment Date Care Activity Detail Author Start: 12-20-2023 DTaP/Tdap/Td vaccine (6 - Td or Tdap) DTaP/Tdap/Td vaccine (6 - Td or Tdap) [facility] Start: 04-21-2023 End: 04-21-2023 Patient encounter procedure 04/21/2023 Office Visit Urology [facility] Start: 04-13-2023 FQHC visit, estab pt Medical E [facility] Patient [facility] Work Phone: Start: 03-21-2023 [facility] Start: 03-08-2023 End: 03-08-2023 Patient education based on identified need P offered active and supportive listening. ~BHP discussed coping skills and supports to implement in daily routine. BHP discussed community resources that may be able to help. ~P discussed online and community resources to contact for psychaitry [facility] Start: 03-08-2023 FQHC visit, estab pt Medical E stablished Patient [facility] Work Phone: Start: 03-08-2023 End: 03-08-2023 Patient education based on identified need [facility] Start: [facility]-07-2023 [facility] Start: 02-19-2023 End: 02-19-2023 Patient education based on identified need [facility] Start: 02-05-2023 FQHC visit, estab pt Medical E stablished Patient [facility] Work Phone: Start: 02-05-2023 End: 02-05-2023 Patient education based on identified need [facility] Start: 01-28-2023 FQHC visit, estab pt Medical E stablished Patient [facility] Work Phone: Start: 01-28-2023 End: 01-28-2023 Patient education based on identified need [facility] Start: 12-31-2022 FQHC visit, estab pt Medical E stablished Patient [facility] Work Phone: Start: 12-31-2022 End: 12-31-2022 Patient education based on identified need [facility] Start: 11-30-2022 End: 11-30-2022 Patient education based on identified need [facility] Start: 02-25-2022 End: 02-25-2022 Patient encounter procedure 02/25/2022 Office Visit Urology [facility] Start: 02-21-2022 [facility] Start: 01-22-2022 Urology [facility] Work Phone: Comment on above: Note: Please make a referral to: Start: 01-22-2022 End: 01-22-2022 Patient education based on identified need [facility] Start: 01-15-2022 FQHC visit, estab pt Medical E stablished Patient [facility] Work Phone: Start: 01-10-2022 [facility] Start: 12-22-2021 End: 12-22-2021 Patient encounter procedure 12/22/2021 Appointment Radiology [facility] Start: 12-22-2021 End: 12-22-2021 Patient encounter procedure 12/22/2021 Appointment Radiology [facility] Start: 12-22-2021 End: 12-22-2021 Patient encounter procedure 12/22/2021 Appointment Radiology [facility] Start: 12-12-2021 Urinalysis Dip stick,In House [facility] Start: 12-11-2021 Influenza vaccination [facility] Start: 12-11-2021 End: 12-11-2021 Patient education based on identified need [facility] Start: 11-25-2021 End: 11-25-2021 Patient education based on identified need [facility] Start: 11-10-2021 Influenza vaccination Flu vaccine (# 1) [facility] Start: 09-24-2021 Dental Comp Exam [facility] Work Phone: Start: 09-12-2021 US Abdominal C omplete ([id number]) [facility] Start: 08-27-2021 FQHC visit, estab pt Medical E stablished Patient [facility] Work Phone: Start: 08-13-2021 End: 08-13-2021 Patient education based on identified need [facility] Start: 07-24-2021 CBC W Auto Different ial panel - Blood [facility] Start: 07-17-2021 End: 07-17-2021 Patient education based on identified need [facility] Start: 05-27-2021 Dental Comp Exam [facility] Work Phone: Start: 05-06-2021 SARS-CoV-2, EVELIA [facility] Start: 05-03-2021 [facility] Start: 05-02-2021 FQHC visit, estab pt Medical E stablished Patient [facility] Work Phone: Start: 04-29-2021 COVID Drive up Testing [facility] Work Phone: Start: 04-15-2021 FQHC visit, estab pt Medical E stablished Patient [facility] Work Phone: Start: 04-15-2021 End: 04-15-2021 Patient education based on identified need [facility] Start: 04-10-2021 FQHC visit, estab pt Medical E stablished Patient [facility] Work Phone: Start: 04-09-2021 End: 04-09-2021 Patient education based on identified need Discussed current self-care methods/coping skills. ~Validated and normalized patient's feelings while assisting process recent events. ~Discussed ongoing mental health services. ~Discussed lifestyle changes to address chronic illness. ~Supported patient's personal health goals. ~ ~Reports feeling better since beginning new meds. Also voices and visual hallucinations have stopped; reports voices were not commanfing [facility] Start: 04-03-2021 Psychiatry [facility] Work Phone: Comment on above: Note: Please make a referral to: Start: 04-03-2021 End: 04-03-2021 Patient education based on identified need [facility] Start: 03-16-2021 Stool PCR Panel (STLPCR ) [facility] Start: 02-14-2021 End: 02-14-2021 Patient education based on identified need [facility] Start: 12-11-2020 Influenza vaccination Flu vaccine (# 1) [facility] Start: 06-03-2020 End: 06-03-2020 Patient education based on identified need Explored current symptoms and stressors. Educaated patient re importance of counseling and provided brief review of EMDR treatment. ~Encouraged patient to engage in ongoing counseling. ~ [facility] Start: 06-03-2020 End: 06-03-2020 Patient education based on identified need [facility] Start: 06-03-2020 Gastroenterology [facility] Work Phone: Comment on above: Note: Please make a referral to: Start: 06-01-2020 End: 06-01-2021 C DIFF TOXIN/ANTIGEN [facility] Work Phone: Comment on above: 48 HRS for 48 Hours starting 06/01/2020 until 06/01/2020 Expected: 06/01/2020 , Expires: 06/01/2021 Start: 06-01-2020 End: 06-29-2020 Giardia / Cryptosporidum antigens [facility] Work Phone: Comment on above: One Time for 1 Occur renandres starting 06/01/2020 until 06/01/2020 Expected: 06/01/2020 , Expires: 06/29/2020 Start: 2020 Screening for malign ant neoplasm of cervix [facility] Start: 02-07-2020 Prophy [facility] Work Phone: Start: 01-24-2020 [facility] Work Phone: Start: 01-08-2020 End: 01-08-2020 Patient education based on identified need [facility] Start: 01-08-2020 End: 01-08-2020 Provider instructions for treatment Intervention and counseling on cessation of tobacco use, 3-10 minutes [facility] Start: 01-08-2020 Medical Establ ished Patient [facility] Work Phone: Start: 01-03-2020 Dental Comp Exam [facility] Work Phone: Start: 01-01-2020 Lipid 1996 panel [facility] Work Phone: Start: 12-25-2019 End: 12-25-2019 Patient education based on identified need [facility] Start: 12-12-2019 Influenza vaccination Flu vaccine (# 1) [place], [place] Start: 12-11-2018 Influenza vaccination Flu vaccine (# 1) [place], [place] Start: 2011 Cervical cancer screen Cervical canc er screen [place], [place] Start: 2011 Screening for malign ant neoplasm of cervix [facility] Start: 2009 DTaP/Tdap/Td vaccine (1 - Tdap) DTaP/Tdap/Td vaccine (1 - Tdap) [facility] Start: 2008 Hepatitis C screening Hepatitis C sc reen [facility] Start: 2003 Varicella Vaccine (1 of 2 - 13+ 2-dose series) Varicella Vaccine (1 of 2 - 13+ 2-dose series) [place], [place] Start: 2002 COVID-19 Vaccine (1) COVID-19 Vaccin e (1) [facility] Start: 2002 Depression Screen Depression Screen [facility] [employer] Start: 1996 Pneumococcal 0-64 ye ars Vaccine (1 - PCV) Pneumococcal 0-64 years Vaccine (1 - PCV) [facility] Start: 1996 Pneumococcal 0-64 ye ars Vaccine (1 of 1 - PPSV23) Pneumococcal 0-64 years Vaccine (1 of 1 - PPSV23) [place] Start: 1996 Pneumococcal 0-64 ye ars Vaccine (1 of 2 - PPSV23) Pneumococcal 0-64 years Vaccine (1 of 2 - PPSV23) [facility] Start: 1995 COVID-19 Vaccine (1) COVID-19 Vaccin e (1) [facility] [employer] Start: 1991 Varicella vaccine (1 of 2 - 2-dose childhood series) Varicella vaccine (1 of 2 - 2-dose childhood series) [facility] Start: 1990 COVID-19 Vaccine (#1) COVID-19 Vacci ne (#1) [facility] [employer] Start: 1990 Hepatitis C screening Hepatitis C sc reen [facility] [employer] End: 12-08-2021 C. difficile toxin Molecular [facility] [employer] Phone: Comment on above: Once for 1 Occurrenc es starting 12/08/2021 until 12/08/2021 End: 09-01-2021 C.trachomatis N.gonorrhoeae DNA, Urine [facility] Phone: Comment on above: One Time for 1 Occur rences starting 09/01/2021 until 09/01/2021 End: 12-08-2021 Calprotectin Stool [facility] Phone: Comment on above: Once for 1 Occurrenc es starting 12/08/2021 until 12/08/2021 End: 03-17-2020 COVID-19 COVID-19 Lab Routine One Time for 1 Occurrences starting 03/17/2020 until 03/17/2020 [place] Comment on above: One Time for 1 Occur rences starting 03/17/2020 until 03/17/2020 [facility] [place] End: 01-29-2021 COVID-19 COVID-19 Lab Routine One Time for 1 Occurrences starting 01/29/2021 until 01/29/2021 [employer] Phone: Comment on above: One Time for 1 Occur rences starting 01/29/2021 until 01/29/2021 End: 02-29-2020 COVID-19 Ambulatory COVID-19 Ambulatory Lab Routine Viral gastroenteritis Suspected COVID-19 virus infection 1 Occurrences starting 02/29/2020 until 02/29/[place] on above: 1 Occurrences starti ng 02/29/2020 until 02/29/2020 COVID-19 Ambulatory COVID-19 Amb ulatory Lab Routine Viral gastroenteritis Suspected COVID-19 virus infection 02/29/2020 2:02 PM [place] ABDOMEN PELVIS W IV CONTRAST CT ABDOMEN PELVIS W IV CONTRAST Imaging STAT 12/14/2019 11:17 AM [place] End: 06-01-2020 Culture, Urine Culture, Urine Microbiology STAT One Time for 1 Occurrences starting 06/01/2020 until 06/01/2020 [employer] Phone: Comment on above: One Time for 1 Occur rences starting 06/01/2020 until 06/01/2020 Culture, Urine Culture, Urine Microbiology STAT 06/01/2020 1:19 PM [employer] Phone: End: 09-01-2021 Culture, Urine [facility] [employer] Phone: Comment on above: One Time for 1 Occur rences starting 09/01/2021 until 09/01/2021 EKG 12 Lead I Do Now I Don't [place], [place] EKG 12 Lead EKG 12 Lead ECG STAT 06/06/2021 3:29 PM [employer] Phone: End: 12-08-2021 Fecal lactoferrin [facility] [employer] Phone: Comment on above: Once for 1 Occurrenc es starting 12/08/2021 until 12/08/2021 End: 12-08-2021 Gastrointestinal Panel, Molecular [employer] Phone: Comment on above: Once for 1 Occurrenc es starting 12/08/2021 until 12/08/2021 End: 06-02-2020 Giardia / Cryptosporidum antigens Giardia / Cryptosporidum antigens Lab Routine Once for 1 Occurrences starting 06/02/2020 until 06/02/2020 [employer] Phone: Comment on above: Once for 1 Occurrenc es starting 06/02/2020 until 06/02/2020 Giardia / Cryptospor idum antigens Giardia / Cryptosporidum antigens Lab Routine 06/02/2020 4:24 PM EST [employer] Phone: End: 12-08-2021 H. pylori antigen [employer] Phone: Comment on above: Once for 1 Occurrenc es starting 12/08/2021 until 12/08/2021 End: 12-08-2021 O&P PANEL (TRAVEL ASSOCIATED) #1 [employer] Phone: Comment on above: Once for 1 Occurrenc es starting 12/08/2021 until 12/08/2021 Immunizations Immunization Date Immunization Notes Care Provider Fa [facility] 03-08-2023 influenza, injectabl e, quadrivalent, preservative free; Translations: [Fluarix] Srinivasa Ward [employer]OLOG[employer]JUNCT INSTRU[employer] Work Phone: [facility] Comment on above: Note: Patient tolera lenora well. No signs or symptoms of adverse reactions. Patient waited a minimum of 15 minutes. 03-08-2023 Imm.Admin. over 18 y rs Any Route FIRST Injection Srinivasa Ward BIOLOGY ADJUNCT INSTRUCTOR Work Phone: [facility] 01-22-2022 influenza, seasonal, injectable; Translations: [Flluarix] Traci Dennison [facility] Work Phone: [facility] Comment on above: Note: Patient tolera lenora well. No signs or symptoms of adverse reactions. Patient waited a minimum of 15 minutes. 02-01-2020 influenza, injectabl e, quadrivalent, preservative free Mthz Schedule [place], [place] 06-21-2014 influenza, seasonal, injectable Traci Dennison BIOLOGY ADJUNCT INSTRUCTOR Work Phone: [facility] 12-19-2013 tetanus toxoid, redu jen diphtheria toxoid, and acellular pertussis vaccine, adsorbed Traci Dennison BIOLOGY ADJUNCT INSTRUCTOR Work Phone: [facility] 07-28-1998 hepatitis B vaccine, pediatric or pediatric/adolescent dosage Traci Dennison BIOLOGY ADJUNCT INSTRUCTOR Work Phone: [facility] 05-20-1998 hepatitis B vaccine, pediatric or pediatric/adolescent dosage Traci Dennison BIOLOGY ADJUNCT INSTRUCTOR Work Phone: [facility] 01-13-1998 hepatitis B vaccine, pediatric or pediatric/adolescent dosage Traci Dennison BIOLOGY ADJUNCT INSTRUCTOR Work Phone: [facility] 01-13-1998 measles, mumps and rubella virus vaccine Traci Dennison BIOLOGY ADJUNCT INSTRUCTOR Work Phone: [facility] 02-18-1995 measles, mumps and rubella virus vaccine Traci Dennison BIOLOGY ADJUNCT INSTRUCTOR Work Phone: [facility] 1990 diphtheria, tetanus toxoids and pertussis vaccine Traci Dennison BIOLOGY ADJUNCT INSTRUCTOR Work Phone: [facility] Payers Date Payer Category Payer Self-pay 2021 Unknown 2018 Unknown [facility] xxxxxxxxxxxxx 2018-Present [phone] [place] [phone] xxxxxxxxxxxxx [id number] 1990 Unknown [id number] 1990 Unknown [id number] [id number] 1990 Unknown [id number] 2.16.840.1.274350.3.579.2.593 1990 Unknown [id number] 2.16.840.1.227992.3.579.2.593 1990 Unknown [id number] 2.16.840.1.006649.3.579.2.593 1990 Unknown [id number] 2.16.840.1.215087.3.579.2.175 1990 Unknown [id number] 2.16.840.1.134279.3.579.2.175 1990 Unknown [id number] 2.16.840.1.686403.3.579.2.173 1990 Unknown [id number] 2.16.840.1.905470.3.579.2.173 1990 Unknown [id number] 2.16.840.1.274650.3.579.2.173 1990 Unknown [id number] 2.16.840.1.610454.3.579.2.173 1990 Unknown [id number] 2.16.840.1.548973.3.579.2.173 1990 Unknown [id number] 2.16.840.1.190390.3.579.2.173 1990 Unknown [id number] 2.16.840.1.898413.3.579.2.196 1990 Unknown [id number] 2.16.840.1.800302.3.579.2.196 1990 Unknown [id number] 2.16.840.1.455949.3.579.2.196 1990 Unknown [id number] 2.16.840.1.271957.3.579.2.196 1990 Unknown [id number] 2.16.840.1.131284.3.579.2.196 1990 Unknown [id number] 2.16.840.1.928250.3.579.2.196 1990 Unknown [id number] 2.16.840.1.458837.3.579.2.196 1990 Unknown [id number] 2.16.840.1.370360.3.579.2.196 1959 Unknown [id number] [id number] .[id number] Unknown [id number] [id number]1 Social History Date Type Detail Facility Start: 11-29-2019 End: 02-25-2022 Tobacco smoking status NHIS Current every day smoker [facility] History of tobacco use Cigarette Smoker [place], [place] Start: 11-29-2019 End: 02-25-2022 Cigarettes smoked current (pack per day) - Reported [place], [place] Start: 11-29-2019 End: 02-25-2022 Tobacco use and exposure Never used [place] Start: 11-29-2019 End: 06-07-2022 Alcohol intake Current non-drinker of alcohol (finding) [place] Start: 12-05-2015 Alcohol Comment occassionally [place], [place] Start: 1990 Sex Assigned At Not on file [place] Start: 06-23-2021 End: 06-07-2022 Exposure to SARS-CoV-2 (event) Not sure [place] Assertion Social drinker (finding) [facility] Assertion [facility] Assertion Gender identity finding (finding) [facility] Assertion Exposure to poll ution (event) [facility] Assertion Finding of sexua l orientation (finding) [facility] Assertion Tobacco user (finding) [facility] Work Phone: Tobacco smoking status Unknown if ever smoked [facility] Work Phone: Assertion Family problems (finding) [facility] Assertion Problem situatio n relating to social and personal history (finding) [facility] Assertion Emotional stress (finding) [facility] Assertion Stress (finding) [facility] Assertion Lives with terence nion (finding) [facility] Start: 12-30-2018 Alcohol intake No [facility] [place] [place] Assertion Social and perso nal history finding (finding) [facility] Start: 1990 Sex Assigned At Female Kori michelle [employer] Work Phone: Exposure to SARS-CoV-2 (event) Yes [facility] Assertion Smoker (finding) [facility] Assertion Light cigarette smoker (1-9 cigs/day) (finding) [facility] Work Phone: Assertion Employment findi ng (finding) [facility] Finding of alcoh ol intake (finding) [facility] Work Phone: Assertion Moderate cigaret te smoker (10-19 cigs/day) (finding) [facility] Assertion Stopped drinking alcohol (finding) [facility] Work Phone: Assertion Full-time employ ment (finding) [facility] Assertion Sexually active (finding) [facility] Assertion Single person (finding) [facility] Start: 11-12-2021 End: 03-15-2022 History SDOH Alcohol Frequency 2 [facility] [employer] Work Phone: Start: 11-12-2021 End: 03-15-2022 History SDOH Alcohol Std Drinks 1 [facility] [employer] Phone: Assertion Currently not se xually active (finding) [facility] Family disruptio n (finding) [facility] Assertion Lives with roomm ate (finding) [facility] Assertion Unemployed (finding) [facility] [place] Lives with famil y (finding) [facility] [place] History of disor russell (situation) [facility] NEGATED: Highlighted row Assertion [facility] NEGATED: Highlighted row Assertion Current drinker of alcohol (finding) [facility] NEGATED: Highlighted row Assertion Finding relating to drug misuse behavior (finding) [facility] NEGATED: Highlighted row Assertion Exposure to pollution (event) [facility] Work Phone: NEGATED: Highlighted row Assertion Tobacco user (finding) [facility] Work Phone: NEGATED: Highlighted row Assertion Sexually active (finding) [facility] Mental Status Date Assessment Result Facility Cognitive function Cognitive fun ctioning was normal Cognitive function finding (finding) [facility] Work Phone: Clinical Notes 01-08-2020 to 03-08-2023 Note Date & Type Note Facility 03-08-2023 Evaluation note Includes: Assessments for all patient encounters Findings Anxiety disorder NOS BH Established Melanie ent with Hannah Short LISWS 03/08/2023 Last Documented On 3 3:55PM ; [facility] Bipolar schizoaffective disorder BH Esta blished Patient with Hannah Short LISWS 03/08/2023 Last Documented On 3 3:55PM ; [facility] Nicotine dependence continuous BH Establ ished Patient with Hannah Short LISWS 03/08/2023 Last Documented On 3 3:55PM ; [facility] [Body mass index [BMI] 33.0- 33.9, adult] assessment of body mass index Medical Established Patient with Srinivasa Ed BIOLOGY ADJUNCT INSTRUCTOR 03/08/2023 Last Documented On 3 12:06PM ; [facility] Chronic gastritis without hemorrhage Med ical Established Patient with Srinivasa Ed BIOLOGY ADJUNCT INSTRUCTOR 03/08/2023 Last Documented On 3 12:06PM ; [facility] Encounter for Immunization Medical Estab lished Patient with Srinivasa Ed BIOLOGY ADJUNCT INSTRUCTOR 03/08/2023 Last Documented On 3 12:06PM ; [facility] Nicotine dependence continuous Medical E stablished Patient with Srinivasa Ed BIOLOGY ADJUNCT INSTRUCTOR 03/08/2023 Last Documented On 3 12:06PM ; [facility] Uncomplicated mild persistent asthma Med ical Established Patient with Srinivasa Ed BIOLOGY ADJUNCT INSTRUCTOR 03/08/2023 Last Documented On 3 12:06PM ; [facility] Anxiety disorder NOS Established Patient with Lea Stone MUSEUM ASSISTANT-S 02/19/2023 Last Documented On 3 4:27PM ; [facility] Bipolar schizoaffective disorder Esta blished Patient with Lea Stone MUSEUM ASSISTANT-S 02/19/2023 Last Documented On 3 4:27PM ; [facility] Nicotine dependence Established Patient with Lea Stone MUSEUM ASSISTANT-S 02/19/2023 Last Documented On 3 4:27PM ; [facility] Assessment of body mass index Open Acces s - Established with Srinivasa Ed BIOLOGY ADJUNCT INSTRUCTOR 02/19/2023 Last Documented On 3 9:22PM ; [facility] [Body mass index [BMI] 33.0- 33.9, adult] assessment of body mass index Medical Established Patient with Srinivasa Ed BIOLOGY ADJUNCT INSTRUCTOR 02/05/2023 Last Documented On 3 3:48PM ; [facility] Anxiety disorder NOS Medical Established Patient with Srinivasa Ed BIOLOGY ADJUNCT INSTRUCTOR 02/05/2023 Last Documented On 3 3:48PM ; [facility] Body mass index Medical Established Patient with Srinivasa Ed BIOLOGY ADJUNCT INSTRUCTOR 01/28/2023 Last Documented On 3 8:31PM ; [facility] [Body mass index [BMI] 32.0- 32.9, adult] assessment of body mass index Medical Established Patient with Srinivasa Ed BIOLOGY ADJUNCT INSTRUCTOR 12/31/2022 Last Documented On 3 5:25AM ; [facility] Uncomplicated mild persistent asthma Med ical Established Patient with Srinivasa Ed BIOLOGY ADJUNCT INSTRUCTOR 12/31/2022 Last Documented On 3 5:25AM ; [facility] [Body mass index [BMI] 33.0- 33.9, adult] assessment of body mass index Medical Established Patient with Srinivasa Ed BIOLOGY ADJUNCT INSTRUCTOR 11/30/2022 Last Documented On 3 12:28PM ; [facility] Anxiety disorder NOS Medical Established Patient with Srinivasa Ed BIOLOGY ADJUNCT INSTRUCTOR 11/30/2022 Last Documented On 3 12:28PM ; [facility] Diabetes Risk Test Score was four score 11/30/2022 Medical Established Patient with Srinivasa Ed BIOLOGY ADJUNCT INSTRUCTOR 11/30/2022 Last Documented On 3 12:28PM ; [facility] Uncomplicated mild persistent asthma Med ical Established Patient with Srinivasa Ed BIOLOGY ADJUNCT INSTRUCTOR 11/30/2022 Last Documented On 3 12:28PM ; [facility] Visit for: routine adult H&P with abnormal findings Medical Established Patient with Srinivasa Ward BIOLOGY ADJUNCT INSTRUCTOR 11/30/2022 Last Documented On 3 12:28PM ; [facility] [Body mass index [BMI] 30.0- 30.9, adult] assessment of body mass index Medical Established Patient with Srinivasa Ward BIOLOGY ADJUNCT INSTRUCTOR 01/22/2022 Last Documented On 2 6:17PM ; [facility] Dysuria Medical Established Patient with Srinivasa Ed BIOLOGY ADJUNCT INSTRUCTOR 01/22/2022 Last Documented On 2 6:17PM ; [facility] Bipolar schizoaffective disorder BH Esta blished Patient with Ina Díaz LPCC-S 12/11/2021 Last Documented On 2 2:31PM ; [facility] Assessment of body mass inde x [Body mass index [BMI] 26.0-26.9, adult] Medical Established Patient with Srinivasa Ward BIOLOGY ADJUNCT INSTRUCTOR 12/11/2021 Last Documented On 2 12:34PM ; [facility] Bipolar schizoaffective disorder BH Esta blished Patient with Inatameka WatkinsDíaz LPCC-S 11/25/2021 Last Documented On 2 1:25PM ; [facility] Anxiety disorder NOS Medical Established Patient with Traci Dennison BIOLOGY ADJUNCT INSTRUCTOR 11/25/2021 Last Documented On 2 3:06PM ; [facility] Urinary tract infection Medical Establis hed Patient with Traci Dennison BIOLOGY ADJUNCT INSTRUCTOR 11/25/2021 Last Documented On 2 3:06PM ; [facility] Z68.27 - Body mass index [BM I] 27.0-27.9, adult Medical Established Patient with Traci Juma BIOLOGY ADJUNCT INSTRUCTOR 11/25/2021 Last Documented On 2 3:06PM ; [facility] Anxiety disorder NOS Medical Established Patient with Traci Juma BIOLOGY ADJUNCT INSTRUCTOR 08/13/2021 Last Documented On 2 8:18AM ; [facility] Assessment of body mass index Medical Es tablished Patient with Traci Juma BIOLOGY ADJUNCT INSTRUCTOR 08/13/2021 Last Documented On 2 8:18AM ; [facility] Chronic gastritis without hemorrhage Med ical Established Patient with Traci Juma BIOLOGY ADJUNCT INSTRUCTOR 08/13/2021 Last Documented On 2 8:18AM ; [facility] Diverticulosis of intestine Medical Esta blished Patient with Traci Juma BIOLOGY ADJUNCT INSTRUCTOR 08/13/2021 Last Documented On 2 8:18AM ; [facility] Urinary tract infection Medical Establis hed Patient with Traci Juma BIOLOGY ADJUNCT INSTRUCTOR 08/13/2021 Last Documented On 2 8:18AM ; [facility] Anxiety disorder NOS Medical Established Patient with Traci Juma BIOLOGY ADJUNCT INSTRUCTOR 07/17/2021 Last Documented On 2 8:10AM ; [facility] Other hypothyroidism Medical Established Patient with Traci Juma BIOLOGY ADJUNCT INSTRUCTOR 07/17/2021 Last Documented On 2 8:10AM ; [facility] Upper respiratory infection Medical Esta blished Patient with Traci Juma BIOLOGY ADJUNCT INSTRUCTOR 07/17/2021 Last Documented On 2 8:10AM ; [facility] Visit for: routine adult H&P with abnormal findings Medical Established Patient with Traci Dennison BIOLOGY ADJUNCT INSTRUCTOR 07/17/2021 Last Documented On 2 8:10AM ; [facility] Visit for: screening for lip oid disorders Medical Established Patient with Traci Juma BIOLOGY ADJUNCT INSTRUCTOR 07/17/2021 Last Documented On 2 8:10AM ; [facility] Vitamin B12 deficiency Medical Establish ed Patient with Traci Juma BIOLOGY ADJUNCT INSTRUCTOR 07/17/2021 Last Documented On 2 8:10AM ; [facility] Vitamin D deficiency Medical Established Patient with Traci Juma BIOLOGY ADJUNCT INSTRUCTOR 07/17/2021 Last Documented On 2 8:10AM ; [facility] Z68.28 - Body mass index [BM I] 28.0-28.9, adult Medical Established Patient with Traci Dennison BIOLOGY ADJUNCT INSTRUCTOR 07/17/2021 Last Documented On 2 8:10AM ; [facility] Allergic rhinitis Telemedicine Establi sted Patient with Traci Dennison BIOLOGY ADJUNCT INSTRUCTOR 07/16/2021 Last Documented On 2 8:23AM ; [facility] Exposure to COVID-19 Telemedicine Establ isted Patient with Traci Dennison BIOLOGY ADJUNCT INSTRUCTOR 04/29/2021 Last Documented On 2 8:02PM ; [facility] Bipolar schizoaffective disorder Esta blished Patient with Farrah Jarrett LPCC-S 04/15/2021 Last Documented On 2 1:07PM ; [facility] Anxiety disorder NOS Medical Established Patient with Traci Dennison BIOLOGY ADJUNCT INSTRUCTOR 04/15/2021 Last Documented On 2 9:06AM ; [facility] Assessment of body mass index Medical Es tablished Patient with Traci Dennison BIOLOGY ADJUNCT INSTRUCTOR 04/15/2021 Last Documented On 2 9:06AM ; [facility] Bipolar disorder NOS Medical Established Patient with Traci Dennison BIOLOGY ADJUNCT INSTRUCTOR 04/15/2021 Last Documented On 2 9:06AM ; [facility] Anxiety disorder NOS Telebehavioral H ealth with Farrah Jarrett LPCC-S 04/09/2021 Last Documented On 2 9:05AM ; [facility] Bipolar disorder NOS Telebehavioral H ealth with Farrah Jarrett LPCC-S 04/09/2021 Last Documented On 2 9:05AM ; [facility] Anxiety disorder NOS Established Patient with Hannah Short LISWS 04/03/2021 Last Documented On 1 7:15PM ; [facility] Bipolar I disorder, most rec ent episode, depressed Established Patient with Hannah Short LISWS 04/03/2021 Last Documented On 1 7:15PM ; [facility] Nicotine dependence Established Patient with Hannah Short LISWS 04/03/2021 Last Documented On 1 7:15PM ; [facility] Nicotine dependence BH Established Patient with Hannah Rivera LISWS 04/03/2021 Last Documented On 1 7:15PM ; [facility] Undifferentiated schizophren ia per patient reported history Established Patient with Hannah Rivera LISWS 04/03/2021 Last Documented On 1 7:15PM ; [facility] A home test was negative Medic al Established Patient with Traci Dennison BIOLOGY ADJUNCT INSTRUCTOR 04/03/2021 Last Documented On 1 8:11PM ; [facility] Assessment of body mass index Medical Es tablished Patient with Traci Dennison BIOLOGY ADJUNCT INSTRUCTOR 04/03/2021 Last Documented On 1 8:11PM ; [facility] Epilepsy, not intractable, w ithout status epilepticus Medical Established Patient with Traci Dennison BIOLOGY ADJUNCT INSTRUCTOR 04/03/2021 Last Documented On 1 8:11PM ; [facility] Mixed affective bipolar diso rder, moderate Medical Established Patient with Traci Dennison [facility] 04/03/2021 Last Documented On 1 8:11PM ; [facility] Urinary tract infection Medical Establis hed Patient with Traci Dennison [facility] 04/03/2021 Last Documented On 1 8:11PM ; [facility] Visit for: screening for STD Medical Est ablished Patient with Traci Dennison BIOLOGY ADJUNCT INSTRUCTOR 04/03/2021 Last Documented On 1 8:11PM ; [facility] Assessment of visit for: scr eening for human immunodeficiency virus Medical Established Patient with Peggy Thrasher [facility] 02/14/2021 Last Documented On 1 1:16PM ; [facility] Diabetes Risk Test Score was three score 02/14/2021 Medical Established Patient with Peggy Thrasher BIOLOGY ADJUNCT INSTRUCTOR 02/14/2021 Last Documented On 1 1:16PM ; [facility] Diarrhea Medical Established Patient with Peggy Thrasher BIOLOGY ADJUNCT INSTRUCTOR 02/14/2021 Last Documented On 1 1:16PM ; [facility] Nicotine dependence Medical Established Patient with Peggy Thrasher BIOLOGY ADJUNCT INSTRUCTOR 02/14/2021 Last Documented On 1 1:16PM ; [facility] Z68.28 - Body mass index [BM I] 28.0-28.9, adult Medical Established Patient with Peggy Thrasher [facility] 02/14/2021 Last Documented On 1 1:16PM ; [facility] Cough Telemedicine Establisted Patient with Traci Dennison BIOLOGY ADJUNCT INSTRUCTOR 01/01/2021 Last Documented On 1 6:31PM ; [facility] Fever Telemedicine Establisted Patient with Traci Dennison [facility] 01/01/2021 Last Documented On 1 6:31PM ; [facility] Z20.822 - Contact with and (suspected) exposure to COVID-19 Telemedicine Establisted Patient with Traci Dennison [facility] 01/01/2021 Last Documented On 1 6:31PM ; [facility] Bipolar I disorder, most rec ent episode, depressed Established Patient with Farrah Hernandezs LPCC-S 06/03/2020 Last Documented On 1 10:50PM ; [facility] Paranoid schizophrenia per p atient report Established Patient with Farrah Hernandezs LPCC-S 06/03/2020 Last Documented On 1 10:50PM ; [facility] Post-traumatic stress disord er per patient report Established Patient with Farrah Hernandezs LPCC-S 06/03/2020 Last Documented On 1 10:50PM ; [facility] 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 Patient with Traci Dennison [facility] 06/03/2020 Last Documented On 1 8:25AM ; [facility] Overweight Medical Established Patient with Traci Dennison [facility] 06/03/2020 Last Documented On 1 8:25AM ; [facility] Z68.29 - Body mass index [BM I] 29.0-29.9, adult Medical Established Patient with Traci Dennison BIOLOGY ADJUNCT INSTRUCTOR 06/03/2020 Last Documented On 1 8:25AM ; [facility] Anxiety disorder NOS Medical Established Patient with Traci Dennison BIOLOGY ADJUNCT INSTRUCTOR 01/26/2020 Last Documented On 0 7:37PM ; [facility] Bipolar disorder NOS Medical Established Patient with Traci Dennison BIOLOGY ADJUNCT INSTRUCTOR 01/26/2020 Last Documented On 0 7:37PM ; [facility] Infection of tooth Medical Established Patient w ith Traci Dennison BIOLOGY ADJUNCT INSTRUCTOR 01/26/2020 Last Documented On 0 7:37PM ; [facility] Z68.20 - Body mass index [BM I] 20.0-20.9, adult Medical Established Patient with Traci Dennison BIOLOGY ADJUNCT INSTRUCTOR 01/26/2020 Last Documented On 0 7:37PM ; [facility] Bipolar I disorder, most rec ent episode, mixed Established Patient with Hannah Short LISWS 01/08/2020 Last Documented On 0 11:49AM ; [facility] Generalized anxiety disorder Establis hed Patient with Hannah Short LISWS 01/08/2020 Last Documented On 0 11:49AM ; [facility] Diabetes Risk Test Score was one score 01/08/2020 Medical Established Patient with Peggy Anna Marie BIOLOGY ADJUNCT INSTRUCTOR 01/08/2020 Last Documented On 0 1:42PM ; [facility] Overweight Medical Established Patient with Peggy Anna Marie BIOLOGY ADJUNCT INSTRUCTOR 01/08/2020 Last Documented On 0 1:42PM ; [facility] Z68.27 - Body mass index (BM I) 27.0-27.9, adult Medical Established Patient with Peggy Anna Marie BIOLOGY ADJUNCT INSTRUCTOR 01/08/2020 Last Documented On 0 1:42PM ; [facility] Bipolar I disorder, most rec ent episode, mixed Established Patient with Hannah Short LISWS 12/25/2019 Last Documented On 0 6:16PM ; [facility] Generalized anxiety disorder Establis hed Patient with Hannah Short LISWS 12/25/2019 Last Documented On 0 6:16PM ; [facility] Overweight Medical Established Patient with Peggy Anna Marie BIOLOGY ADJUNCT INSTRUCTOR 12/25/2019 Last Documented On 0 1:54PM ; [facility] Z68.26 - Body mass index (BM I) 26.0-26.9, adult Medical Established Patient with Peggy Anna Marie BIOLOGY ADJUNCT INSTRUCTOR 12/25/2019 Last Documented On 0 1:54PM ; [facility] Work Phone: 1(194) 481-942411-27-2023 Progress note* Progress note Date Encounter Last Documented by 03/08/2023 Medical Established Patient Last documented on 03/08/2023; 12:06 PM, Srinivasa Ward CNP; [facility] Active Problems & Conditions - F41.9 - Anxiety Disorder Nos - Anxiety - J45.30 - Asthma Mild Persistent Uncomplicated - S03.00XA - Dislocation of jaw, unspecified side, initial encounter - TMJ (dislocation of temporomandibular joint) - G40.909 - Epilepsy Not Intractable Without Status Epilepticus - Epilepsy - K29.50 - Gastritis Chronic Without Hemorrhage - per colonoscopy on 03/19/2021 - Hemorrhoids - per colonoscopy 03/2021 - K57.30 - Intestinal Disorder Diverticulosis - per colonoscopy 03/2021 - F17.200 - Nicotine Dependence Continuous - F25.0 - Schizoaffective Disorder, Bipolar - SEE_NOTE - See Note: - Smoker within last 12 months - M19.90 - Unspecified osteoarthritis, unspecified site - Arthritis Chief Complaint The Chief Complaint is: Patient is here for a new referral for a surgeon and a routine follow up. Referred Here No prior encounters. History of Present Illness Abrahan Woods is a 32 year old female. - Allergy list reviewed - Reviewed Medications Patient presents for follow up Has not heard from the surgeon yet to get hernia repaired, and states that she has been calling office and leaving messages, GI office called to get surgeons office number to give to patient to ensure she is calling the proper office States that she has stopped going to [facility] and plans on making an appt with Dr Dickerson, needs a bridge of trileptal until she gets in with Dr Dickerson States that asthma and migraines are controlled Current Medication - Amitriptyline HCl 50 MG Oral Tablet Take one tablet daily at bedtime, 30 days, 5 refills - Benzonatate 100 MG Oral Capsule take one capsule three times daily as needed for cough per suman morgan, 0 days, 0 refills - busPIRone HCl 15 MG Oral Tablet take one tablet three times daily, 30 days, 5 refills - Dicyclomine HCl 10 MG Oral Capsule, conventional take 1 capsule by mouth three times daily, 30 days, 1 refills - Fluticasone Propionate 50 MCG/ACT Nasal Suspension inhale 1 spray into each nostril 2 times per day., 30 days, 5 refills - Ibuprofen 800 MG Oral Tablet 14 days, 0 refills - Imitrex 25 MG Oral Tablet Take one tablet as needed for migraines may repeat x1 dose after 4 hours, 30 days, 1 refills - Omeprazole 40 MG Oral Capsule, delayed-release Capsule Delayed Release one capsule twice daily per Mirza Amanda, 0 days, 0 refills - Ondansetron 4 MG Oral Tablet Disintegrating dissolve one tablet every 6 hours as needed for nausea and vomiting per suman morgan, 0 days, 0 refills - Pantoprazole Sodium 40 MG Oral Tablet Delayed Release one tablet twice daily per Mirza Amanda, 0 days, 0 refills - Prazosin HCl 1 MG Oral Capsule take one capsule by mouth at bedtime for ptsd nightmares, 30 days, 5 refills - Symbicort 160-4.5 MCG/ACT Inhalation Aerosol Inhale 2 puffs two times a day ( rinse mouth after use), 30 days, 2 refills - Ventolin HFA 108 (90 Base) MCG/ACT Inhalation Aerosol Solution inhale 2 puffs by mouth into lungs every 4 hours as needed for shortness of breath, 30 days, 5 refills - Vitamin D 25 MCG (1000 UT) Oral Tablet take 1 tablet by mouth daily, 30 days, 5 refills - ZyrTEC Allergy 10 MG Oral Tablet Take one tablet daily ( do not take with loratadine), 30 days, 5 refills Past Medical/Surgical History Other: No previous suicide attempt Reported: No Safety Measures. Medical: No previous hospitalizations. : Not planning to have a baby in the next 12 months. Diagnoses: Asthma. Ovarian cyst. Keratitis follicularis (Darier's disease). Epilepsy. Schizophrenia Bipolar disorder NOS Depression. Post-traumatic stress disorder. Anxiety disorder NOS Procedural: - Complete colonoscopy Surgical: - Tonsillectomy - Tonsillectomy with adenoidectomy - General surgery ablation EGD Colonoscopy gallbladder - Hernia repair - Hysterectomy 10/29/2022 - Tubal ligation Social History Environmental Exposure: Secondhand cigarette smoke exposure. Tobacco use: Cigarette smoking Moderate (11-19/day). Not using electronic cigarettes/vaping. Alcohol: Not using alcohol. Drug Use: Using marijuana. Sexual: Sexual orientation Straight (not lesbian or munoz) and gender identity Female. Allergies - Tracy - Egg - Fish - Latex - Morphine Derivatives Reaction: Nausea - NO KNOWN DRUG ALLERGIES - -No Known Food Allergies Family History Father 2009 Mother is alive Maternal: Cardiovascular disorder Asthma Oncologic disorder Overain Review Of Systems Head: No head symptoms and no sinus pain. Otolaryngeal: Nose and sinus finding. Cardiovascular: No cardiovascular symptoms. Pulmonary: No pulmonary symptoms. Gastrointestinal: Gastrointestinal symptoms. Musculoskeletal: No musculoskeletal symptoms. Neurological: No neurological symptoms. Skin: No skin symptoms. Physical Findings - Vitals taken 03/08/2023 10:41 am BP-Sitting L131/83 mmHg BP Cuff SizeLarge Pulse Rate-Xmtpbgv40 bpm Respiration Rate18 per min Nyipcm56 in Fumpoa148 lbs 2 oz Body Mass Index33.8 kg/m2 Body Surface Area1.7 m2 Oxygen Ialttrrcyy60 % O2 DeviceNone (Room Air) SiV650 % Vital Signs: - Systolic blood pressure < 130 mmHg. - Systolic blood pressure 130 - 139 mmHg. - Diastolic Blood Pressure < 80 mmHg. - Diastolic blood pressure 80-89 mmHg. General Appearance: - Awake. - Alert. Lungs: - Normal. - Respiration rhythm and depth was normal. Abdomen: Visual Inspection: - Abdomen was normal on visual inspection, slightly distended in RUQ. Musculoskeletal System: General/bilateral: - Normal movement of all extremities. Skin: - General appearance was normal. Assessment - Body mass index [Body mass index [BMI] 33.0-33.9, adult] - Encounter for Immunization [Encounter for immunization] - Uncomplicated mild persistent asthma [Mild persistent asthma, uncomplicated] - Chronic gastritis without hemorrhage [Unspecified chronic gastritis without bleeding] - Nicotine dependence continuous [Nicotine dependence, unspecified, uncomplicated] Therapy - Patient refused flu vaccine. Discussed benefits of flu vaccine with Patient. - Immunization administration, by injection, one vaccine. Vaccinations - Fluarix 0.5mL for 6 months and older Dose #2 Status: Administered Date: 03/08/2023 - Did not receive dose of Reported: Patient has not received the Covid Vaccine - Received dose of Fluarix 0.5mL (6 months and up) Counseling/Education - Discussed nutritional needs teach healthy choices including fruits and vegetables - Patient education about a proper diet - Discussed concerns about exercise: promote physical activity Will bridge trileptal, starting at 150mg twice a day Will follow up in 1 month for mood, unless you get in with Dr Dickerson then you can cancel appt here Plan StartCited- Schizoaffective disorder, bipolar type Trileptal 150 MG tablet Take one tablet two times a day, 30 days, 1 refills EndCited Advance Directives - Living Will - Declined to Provide Advance Directive [facility]11-27-2023 Progress note* Progress note Date Encounter Last Documented by 03/08/2023 [facility] Patient Last docu mented on 03/08/2023; 3:55 PM, Hannah ROY; [facility] Active Problems & Conditions - F41.9 - Anxiety Disorder Nos - Anxiety - J45.30 - Asthma Mild Persistent Uncomplicated - S03.00XA - Dislocation of jaw, unspecified side, initial encounter - TMJ (dislocation of temporomandibular joint) - G40.909 - Epilepsy Not Intractable Without Status Epilepticus - Epilepsy - K29.50 - Gastritis Chronic Without Hemorrhage - per colonoscopy on 03/19/2021 - Hemorrhoids - per colonoscopy 03/2021 - K57.30 - Intestinal Disorder Diverticulosis - per colonoscopy 03/2021 - F17.200 - Nicotine Dependence Continuous - F25.0 - Schizoaffective Disorder, Bipolar - SEE_NOTE - See Note: - Smoker within last 12 months - M19.90 - Unspecified osteoarthritis, unspecified site - Arthritis Chief Complaint The Chief Complaint is: [facility] met with patient to follow-up regarding mood and medications. Patient reports that she has been feeling stressed due to her physical health and not being able to work. Patient reports that she is unsure what the holidays will look like as she missed signing her kids up for assistance programs for gifts due to being in the hospital. Patient reports that she stopped attending [employer] due to having to see 4 different people when she only wanted to see the psychiatrist. Patient discussed wanting to resume Trileptal as she felt that it kept keep moods more stable. Patient reports that she saw Dr. Dickerson in the past and would be open to returning there. Patient reports no thoughts of harm towards self or others. History of Present Illness Abrahan Wodos is a 32 year old female. - Normal appetite - Irritability - Anxiety regarding health and finances - Depression - Loss of interest in activities - Energy level is fair - Feeling guilty - No sleep disturbances - Not easily distracted - No social isolation - No impulsive behavior Current Medication - Amitriptyline HCl 50 MG Oral Tablet Take one tablet daily at bedtime, 30 days, 5 refills - Benzonatate 100 MG Oral Capsule take one capsule three times daily as needed for cough per suman morgan, 0 days, 0 refills - busPIRone HCl 15 MG Oral Tablet take one tablet three times daily, 30 days, 5 refills - Dicyclomine HCl 10 MG Oral Capsule, conventional take 1 capsule by mouth three times daily, 30 days, 1 refills - Fluticasone Propionate 50 MCG/ACT Nasal Suspension inhale 1 spray into each nostril 2 times per day., 30 days, 5 refills - Ibuprofen 800 MG Oral Tablet 14 days, 0 refills - Imitrex 25 MG Oral Tablet Take one tablet as needed for migraines may repeat x1 dose after 4 hours, 30 days, 1 refills - Omeprazole 40 MG Oral Capsule, delayed-release Capsule Delayed Release one capsule twice daily per Mirza Amanda, 0 days, 0 refills - Ondansetron 4 MG Oral Tablet Disintegrating dissolve one tablet every 6 hours as needed for nausea and vomiting per suman morgan, 0 days, 0 refills - Pantoprazole Sodium 40 MG Oral Tablet Delayed Release one tablet twice daily per Mirza Amanda, 0 days, 0 refills - Prazosin HCl 1 MG Oral Capsule take one capsule by mouth at bedtime for ptsd nightmares, 30 days, 5 refills - Symbicort 160-4.5 MCG/ACT Inhalation Aerosol Inhale 2 puffs two times a day ( rinse mouth after use), 30 days, 2 refills - Trileptal 150 MG Oral Tablet Take one tablet two times a day, 30 days, 1 refills - Ventolin HFA 108 (90 Base) MCG/ACT Inhalation Aerosol Solution inhale 2 puffs by mouth into lungs every 4 hours as needed for shortness of breath, 30 days, 5 refills - Vitamin D 25 MCG (1000 UT) Oral Tablet take 1 tablet by mouth daily, 30 days, 5 refills - ZyrTEC Allergy 10 MG Oral Tablet Take one tablet daily ( do not take with loratadine), 30 days, 5 refills Social History Medical: Chronic illness. Environmental Exposure: Secondhand cigarette smoke exposure. Personal: Recent emotional stress has financial stress. Alcohol: Not using alcohol. Drug Use: Not using drugs. Housing And Economic Circumstances: Lives with relatives. Work: Unemployed. Physical Findings General Appearance: - Normal Appearance. Neurological: - Estimated intelligence was normal. - Oriented to time, place, and person. - No hallucinations. - Judgement was not impaired. Speech: - Is Normal. Psychiatric: - Mood was concerned. - Attitude Open. Demonstrated Behavior: - Motor Activity Normal Activity. - Eye Contact Appropriate. Affect: - Congruent with the mood. Thought Content: - Insight was intact. - No delusions. - No suicidal ideation. - No Passive thoughts of . - No suicidal plans. - No suicidal intent. - No homicidal ideations. - No homicidal plans. - No homicidal intent. Past Medical: - No repetitive self injurious behavior. - No access to weapons / guns in home. Assessment - F17.200 - Nicotine dependence, unspecified, uncomplicated - F25.0 - Schizoaffective disorder, bipolar type - F41.9 - Anxiety disorder, unspecified Therapy - Brief solution-focused therapy. - Plan - PCP discussed with patient restarting Trileptal at 150mg twice daily. Patient agreeable to plan and Collaborated with patient and provider: Counseling/Education [facility] offered active and supportive listening. [facility] discussed coping skills and supports to implement in daily routine. [facility] discussed community resources that may be able to help. [facility] discussed online and community resources to contact for psychaitry. Plan Patient to take medications as prescribed and contact the office with any questions or concerns. Patient to implement coping skills and positive supports as discussed. P to follow-up with patient at next visit as scheduled. Advance Directives - Living Will - Declined to Provide Advance Directive [facility]11-27-2023 Instructions Includes: Instructions for all patient encounters Instructions to patient Intervention and counseling on cessation of tobacco use, 3-10 minutes Last Documented On 0 1:15PM ; [facility] Education and Decision Aids were provided during visit for: Discussed nutritional needs teach healthy choices including fruits and vegetables Last Documented On 3 10:43AM ; [facility] Patient education about a pr oper diet Last Documented On 3 10:43AM ; [facility] Discussed concerns about exe rcise : promote physical activity ~ ~Will bridge trileptal, starting at 150mg twice a day ~ ~Will follow up in 1 month for mood, unless you get in with Dr Dickerson then you can cancel appt here Last Documented On 3 12:04PM ; [facility] offered active and suppo rtive listening, normalized emotions and feelings, and processed current stressors. ~P empathized with patient regarding her current stressors and encouraged patient to continue to advocate for herself. Patient was receptive Last Documented On 3 4:25PM ; [facility] Discussed nutritional needs teach healthy choices including fruits and vegetables Last Documented On 3 10:19AM ; [facility] Patient education about a pr oper diet Last Documented On 3 10:19AM ; [facility] Discussed concerns about exe rcise : promote physical activity ~ ~Will do vaginal swab to check for yeast infection ~ ~Encouraged to follow up with OBGYN ~ ~Number given to surgeon that GI referred her to, call number and schedule appt ~ ~Follow up at next scheduled appt Last Documented On 3 12:18PM ; [facility] Not requesting contraception Last Documented On 3 10:23AM ; [facility] Discussed nutritional needs teach healthy choices including fruits and vegetables Last Documented On 3 10:48AM ; [facility] Patient education about a pr oper diet Last Documented On 3 10:48AM ; [facility] Discussed concerns about exe rcise : promote physical activity ~ ~Will give augmentin to cover sinuses and urinary tract ~ ~Will send out urine ~ ~Will give steriod due to patients lung sounds ~ ~Will increase symbicort ~ ~Follow up in one month Last Documented On 3 3:48PM ; [facility] Not requesting contraception Last Documented On 3 10:50AM ; [facility] Discussed nutritional needs teach healthy choices including fruits and vegetables Last Documented On 3 11:01AM ; [facility] Patient education about a pr oper diet Last Documented On 3 11:01AM ; [facility] Discussed concerns about exe rcise : promote physical activity ~ ~Follow up after ER visit Last Documented On 3 8:31PM ; [facility] Not requesting contraception Last Documented On 3 11:03AM ; [facility] Discussed nutritional needs teach healthy choices including fruits and vegetables Last Documented On 3 12:03PM ; [facility] Patient education about a pr oper diet Last Documented On 3 12:03PM ; [facility] Discussed concerns about exe rcise : promote physical activity ~ ~Will keep medication the same Last Documented On 3 4:46AM ; [facility] Not requesting contraception Last Documented On 3 12:04PM ; [facility] Discussed nutritional needs teach healthy choices including fruits and vegetables Last Documented On 3 9:09AM ; [facility] Patient education about a pr oper diet Last Documented On 3 9:09AM ; [facility] Patient education about an a sthma action plan Last Documented On 3 9:44AM ; [facility] Discussed concerns about exe rcise : promote physical activity ~ ~Will restart symbicort ~ ~Follow up in one month for asthma Last Documented On 3 12:28PM ; [facility] Discussed nutritional needs teach healthy choices including fruits and vegetables Last Documented On 2 10:58AM ; [facility] Patient education about a pr oper diet Last Documented On 2 10:58AM ; [facility] Discussed concerns about exe rcise : promote physical activity Last Documented On 2 10:58AM ; [facility] Discussed nutritional needs teach healthy choices including fruits and vegetables Last Documented On 2 11:41AM ; [facility] Patient education about a pr oper diet Last Documented On 2 11:41AM ; [facility] Discussed concerns about exe rcise : promote physical activity Last Documented On 2 11:41AM ; [facility] offered active listening and supportive feedback; normalized emotions and feelings, also provided pt time to process any current stressors ~P discussed benefits of counseling and supported pt in following through with scheduled appt. ~[facility] encouraged pt to continue to make time to implement self-care regimen to assist in improving their mood Last Documented On 2 2:29PM ; [facility] Provided supportive listenin g and reflective feedback; monitored mood, explored symptoms, assessed functioning. ~Discussed medication use/compliance. ~Promoted use of healthy coping mechanisms and positive support, as needed Last Documented On 2 1:25PM ; [facility] Discussed nutritional needs teach healthy choices including fruits and vegetables Last Documented On 2 12:54PM ; [facility] Patient education about a pr oper diet Last Documented On 2 12:54PM ; [facility] Discussed concerns about exe rcise : promote physical activity Last Documented On 2 12:54PM ; [facility] Discussed nutritional needs teach healthy choices including fruits and vegetables Last Documented On 2 11:39AM ; [facility] Patient education about a pr oper diet Last Documented On 2 11:39AM ; [facility] Discussed concerns about exe rcise : promote physical activity Last Documented On 2 11:39AM ; [facility] Discussed nutritional needs teach healthy choices including fruits and vegetables Last Documented On 2 10:29AM ; [facility] Patient education about a pr oper diet Last Documented On 2 10:29AM ; [facility] Discussed concerns about exe rcise : promote physical activity Last Documented On 2 10:29AM ; [facility] Discussed current self-care methods/coping skills. ~Validated and normalized patient's feelings while assisting process recent events. ~Discussed ongoing counseling. ~Discussed lifestyle changes to address chronic illness. ~Supported patient's personal health goals Last Documented On 2 8:50PM ; [facility] Discussed nutritional needs teach healthy choices including fruits and vegetables Last Documented On 2 11:15AM ; [facility] Patient education about a pr oper diet Last Documented On 2 11:15AM ; [facility] Discussed concerns about exe rcise : promote physical activity Last Documented On 2 11:15AM ; [facility] Discussed current self-care methods/coping skills. ~Validated and normalized patient's feelings while assisting process recent events. ~Discussed ongoing mental health services. ~Discussed lifestyle changes to address chronic illness. ~Supported patient's personal health goals. ~ ~Reports feeling better since beginning new meds. Also voices and visual hallucinations have stopped; reports voices were not commanfing Last Documented On 2 8:54PM ; [facility] offered active and suppo rtive listening and normalized emotions and feelings. ~[facility] discussed with patient and significant other in the room with her crisis resources. Patient is agreeable to contacting one of the crisis resources should moods worsen or call 911 or go to the Emergency Room. Patient reports that she can also speak with significant others Mom or go to her [employer] fathers house. ~[facility] and PCP discussed plan to follow-up with psychiatry and counseling and a new referral being sent to [facility]. If patient is not accepted back as a patient with Dr. Dickerson, will look into other resources Last Documented On 1 7:15PM ; [facility] Discussed nutritional needs teach healthy choices including fruits and vegetables Last Documented On 1 1:18PM ; [facility] Patient education about a pr oper diet Last Documented On 1 1:18PM ; [facility] Discussed concerns about exe rcise : promote physical activity Last Documented On 1 1:18PM ; [facility] Discussed nutritional needs teach healthy choices including fruits and vegetables Last Documented On 1 10:37AM ; [facility] Patient education about a pr oper diet Last Documented On 1 10:37AM ; [facility] Discussed concerns about exe rcise : promote physical activity Last Documented On 1 10:37AM ; [facility] Explored current symptoms an d stressors. Educaated patient re importance of counseling and provided brief review of EMDR treatment. ~Encouraged patient to engage in ongoing counseling. ~ Last Documented On 1 10:50PM ; [facility] Discussed nutritional needs teach healthy choices including fruits and vegetables Last Documented On 1 6:53PM ; [facility] Patient education about a pr oper diet Last Documented On 1 6:53PM ; [facility] Discussed concerns about exe rcise : promote physical activity Last Documented On 1 6:53PM ; [facility] provided active listenin g, support and helped patient process through current symptoms and stressors related to mood and irritability. ~P discussed coping skills that patient has tried as well as discussed potential benefit of counseling. ~ ~ Last Documented On 0 11:49AM ; [facility] Discussed nutritional needs teach healthy choices including fruits and vegetables Last Documented On 0 1:15PM ; [facility] Patient education about a pr oper diet Last Documented On 0 1:15PM ; [facility] Patient education about a pr oper diet Last Documented On 0 1:33PM ; [facility] Patient education about meal planning Last Documented On 0 1:33PM ; [facility] Education about changing eat ing habits Last Documented On 0 1:33PM ; [facility] Patient education about high fiber diet Last Documented On 0 1:33PM ; [facility] Patient education about low fat diet Last Documented On 0 1:33PM ; [facility] Patient education about low cholesterol diet Last Documented On 0 1:33PM ; [facility] Patient education about low carbohydrate diet Last Documented On 0 1:33PM ; [facility] Patient education about high protein diet Last Documented On 0 1:33PM ; [facility] Discussed concerns about exe rcise : promote physical activity Last Documented On 0 1:15PM ; [facility] provided active listenin g, support and helped patient process through current symptoms and stressors due to pain, loss of work and low frustration tolerance. ~P discussed coping skills and supports that patient can implement inclduing meditation, mindfulness, and deep breathing activities. [facility] provided resources to patient to work on implementing. ~[facility] discussed with patient re-establishing care for therapy and provided patient with resource list. ~ Last Documented On 0 6:15PM ; [facility] Discussed nutritional needs teach healthy choices including fruits and vegetables Last Documented On 0 1:12PM ; [facility] Patient education about a pr oper diet Last Documented On 0 1:12PM ; [facility] Patient education about a pr oper diet Last Documented On 0 1:46PM ; [facility] Patient education about meal planning Last Documented On 0 1:46PM ; [facility] Education about changing eat ing habits Last Documented On 0 1:46PM ; [facility] Patient education about high fiber diet Last Documented On 0 1:46PM ; [facility] Patient education about low fat diet Last Documented On 0 1:46PM ; [facility] Patient education about low cholesterol diet Last Documented On 0 1:46PM ; [facility] Patient education about low carbohydrate diet Last Documented On 0 1:46PM ; [facility] Patient education about high protein diet Last Documented On 0 1:46PM ; [facility] Discussed concerns about exe rcise : promote physical activity Last Documented On 0 1:12PM ; [facility] Work Phone: [phone] 388-708511-27-2023 Instructions Includes: Instructions for all patient encounters Instructions to patient Intervention and counseling on cessation of tobacco use, 3-10 minutes Last Documented On 0 1:15PM ; [facility] Education and Decision Aids were provided during visit for: [facility] offered active and suppo rtive listening. ~[facility] discussed coping skills and supports to implement in daily routine. P discussed community resources that may be able to help. ~[facility] discussed online and community resources to contact for psychaitry Last Documented On 3 3:55PM ; [facility] Discussed nutritional needs teach healthy choices including fruits and vegetables Last Documented On 3 10:43AM ; [facility] Patient education about a pr oper diet Last Documented On 3 10:43AM ; [facility] Discussed concerns about exe rcise : promote physical activity ~ ~Will bridge trileptal, starting at 150mg twice a day ~ ~Will follow up in 1 month for mood, unless you get in with Dr Dickerson then you can cancel appt here Last Documented On 3 12:04PM ; [facility] offered active and suppo rtive listening, normalized emotions and feelings, and processed current stressors. ~P empathized with patient regarding her current stressors and encouraged patient to continue to advocate for herself. Patient was receptive Last Documented On 3 4:25PM ; [facility] Discussed nutritional needs teach healthy choices including fruits and vegetables Last Documented On 3 10:19AM ; [facility] Patient education about a pr oper diet Last Documented On 3 10:19AM ; [facility] Discussed concerns about exe rcise : promote physical activity ~ ~Will do vaginal swab to check for yeast infection ~ ~Encouraged to follow up with OBGYN ~ ~Number given to surgeon that GI referred her to, call number and schedule appt ~ ~Follow up at next scheduled appt Last Documented On 3 12:18PM ; [facility] Not requesting contraception Last Documented On 3 10:23AM ; [facility] Discussed nutritional needs teach healthy choices including fruits and vegetables Last Documented On 3 10:48AM ; [facility] Patient education about a pr oper diet Last Documented On 3 10:48AM ; [facility] Discussed concerns about exe rcise : promote physical activity ~ ~Will give augmentin to cover sinuses and urinary tract ~ ~Will send out urine ~ ~Will give steriod due to patients lung sounds ~ ~Will increase symbicort ~ ~Follow up in one month Last Documented On 3 3:48PM ; [facility] Not requesting contraception Last Documented On 3 10:50AM ; [facility] Discussed nutritional needs teach healthy choices including fruits and vegetables Last Documented On 3 11:01AM ; [facility] Patient education about a pr oper diet Last Documented On 3 11:01AM ; [facility] Discussed concerns about exe rcise : promote physical activity ~ ~Follow up after ER visit Last Documented On 3 8:31PM ; [facility] Not requesting contraception Last Documented On 3 11:03AM ; [facility] Discussed nutritional needs teach healthy choices including fruits and vegetables Last Documented On 3 12:03PM ; [facility] Patient education about a pr oper diet Last Documented On 3 12:03PM ; [facility] Discussed concerns about exe rcise : promote physical activity ~ ~Will keep medication the same Last Documented On 3 4:46AM ; [facility] Not requesting contraception Last Documented On 3 12:04PM ; [facility] Discussed nutritional needs teach healthy choices including fruits and vegetables Last Documented On 3 9:09AM ; [facility] Patient education about a pr oper diet Last Documented On 3 9:09AM ; [facility] Patient education about an a sthma action plan Last Documented On 3 9:44AM ; [facility] Discussed concerns about exe rcise : promote physical activity ~ ~Will restart symbicort ~ ~Follow up in one month for asthma Last Documented On 3 12:28PM ; [facility] Discussed nutritional needs teach healthy choices including fruits and vegetables Last Documented On 2 10:58AM ; [facility] Patient education about a pr oper diet Last Documented On 2 10:58AM ; [facility] Discussed concerns about exe rcise : promote physical activity Last Documented On 2 10:58AM ; [facility] Discussed nutritional needs teach healthy choices including fruits and vegetables Last Documented On 2 11:41AM ; [facility] Patient education about a pr oper diet Last Documented On 2 11:41AM ; [facility] Discussed concerns about exe rcise : promote physical activity Last Documented On 2 11:41AM ; [facility] offered active listening and supportive feedback; normalized emotions and feelings, also provided pt time to process any current stressors ~[facility] discussed benefits of counseling and supported pt in following through with scheduled appt. ~[facility] encouraged pt to continue to make time to implement self-care regimen to assist in improving their mood Last Documented On 2 2:29PM ; [facility] Provided supportive listenin g and reflective feedback; monitored mood, explored symptoms, assessed functioning. ~Discussed medication use/compliance. ~Promoted use of healthy coping mechanisms and positive support, as needed Last Documented On 2 1:25PM ; [facility] Discussed nutritional needs teach healthy choices including fruits and vegetables Last Documented On 2 12:54PM ; [facility] Patient education about a pr oper diet Last Documented On 2 12:54PM ; [facility] Discussed concerns about exe rcise : promote physical activity Last Documented On 2 12:54PM ; [facility] Discussed nutritional needs teach healthy choices including fruits and vegetables Last Documented On 2 11:39AM ; [facility] Patient education about a pr oper diet Last Documented On 2 11:39AM ; [facility] Discussed concerns about exe rcise : promote physical activity Last Documented On 2 11:39AM ; [facility] Discussed nutritional needs teach healthy choices including fruits and vegetables Last Documented On 2 10:29AM ; [facility] Patient education about a pr oper diet Last Documented On 2 10:29AM ; [facility] Discussed concerns about exe rcise : promote physical activity Last Documented On 2 10:29AM ; [facility] Discussed current self-care methods/coping skills. ~Validated and normalized patient's feelings while assisting process recent events. ~Discussed ongoing counseling. ~Discussed lifestyle changes to address chronic illness. ~Supported patient's personal health goals Last Documented On 2 8:50PM ; [facility] Discussed nutritional needs teach healthy choices including fruits and vegetables Last Documented On 2 11:15AM ; [facility] Patient education about a pr oper diet Last Documented On 2 11:15AM ; [facility] Discussed concerns about exe rcise : promote physical activity Last Documented On 2 11:15AM ; [facility] Discussed current self-care methods/coping skills. ~Validated and normalized patient's feelings while assisting process recent events. ~Discussed ongoing mental health services. ~Discussed lifestyle changes to address chronic illness. ~Supported patient's personal health goals. ~ ~Reports feeling better since beginning new meds. Also voices and visual hallucinations have stopped; reports voices were not commanfing Last Documented On 2 8:54PM ; [facility] offered active and suppo rtive listening and normalized emotions and feelings. ~[facility] discussed with patient and significant other in the room with her crisis resources. Patient is agreeable to contacting one of the crisis resources should moods worsen or call 911 or go to the Emergency Room. Patient reports that she can also speak with significant others Mom or go to her [place] house. ~[facility] and PCP discussed plan to follow-up with psychiatry and counseling and a new referral being sent to [facility]. If patient is not accepted back as a patient with Dr. Dickerson, will look into other resources Last Documented On 1 7:15PM ; [facility] Discussed nutritional needs teach healthy choices including fruits and vegetables Last Documented On 1 1:18PM ; [facility] Patient education about a pr oper diet Last Documented On 1 1:18PM ; [facility] Discussed concerns about exe rcise : promote physical activity Last Documented On 1 1:18PM ; [facility] Discussed nutritional needs teach healthy choices including fruits and vegetables Last Documented On 1 10:37AM ; [facility] Patient education about a pr oper diet Last Documented On 1 10:37AM ; [facility] Discussed concerns about exe rcise : promote physical activity Last Documented On 1 10:37AM ; [facility] Explored current symptoms an d stressors. Educaated patient re importance of counseling and provided brief review of EMDR treatment. ~Encouraged patient to engage in ongoing counseling. ~ Last Documented On 1 10:50PM ; [facility] Discussed nutritional needs teach healthy choices including fruits and vegetables Last Documented On 1 6:53PM ; [facility] Patient education about a pr oper diet Last Documented On 1 6:53PM ; [facility] Discussed concerns about exe rcise : promote physical activity Last Documented On 1 6:53PM ; [facility] provided active listenin g, support and helped patient process through current symptoms and stressors related to mood and irritability. ~[facility] discussed coping skills that patient has tried as well as discussed potential benefit of counseling. ~ ~ Last Documented On 0 11:49AM ; [facility] Discussed nutritional needs teach healthy choices including fruits and vegetables Last Documented On 0 1:15PM ; [facility] Patient education about a pr oper diet Last Documented On 0 1:15PM ; [facility] Patient education about a pr oper diet Last Documented On 0 1:33PM ; [facility] Patient education about meal planning Last Documented On 0 1:33PM ; [facility] Education about changing eat ing habits Last Documented On 0 1:33PM ; [facility] Patient education about high fiber diet Last Documented On 0 1:33PM ; [facility] Patient education about low fat diet Last Documented On 0 1:33PM ; [facility] Patient education about low cholesterol diet Last Documented On 0 1:33PM ; [facility] Patient education about low carbohydrate diet Last Documented On 0 1:33PM ; [facility] Patient education about high protein diet Last Documented On 0 1:33PM ; [facility] Discussed concerns about exe rcise : promote physical activity Last Documented On 0 1:15PM ; [facility] provided active listenin g, support and helped patient process through current symptoms and stressors due to pain, loss of work and low frustration tolerance. ~[facility] discussed coping skills and supports that patient can implement inclduing meditation, mindfulness, and deep breathing activities. [facility] provided resources to patient to work on implementing. ~[facility] discussed with patient re-establishing care for therapy and provided patient with resource list. ~ Last Documented On 0 6:15PM ; [facility] Discussed nutritional needs teach healthy choices including fruits and vegetables Last Documented On 0 1:12PM ; [facility] Patient education about a pr oper diet Last Documented On 0 1:12PM ; [facility] Patient education about a pr oper diet Last Documented On 0 1:46PM ; [facility] Patient education about meal planning Last Documented On 0 1:46PM ; [facility] Education about changing eat ing habits Last Documented On 0 1:46PM ; [facility] Patient education about high fiber diet Last Documented On 0 1:46PM ; [facility] Patient education about low fat diet Last Documented On 0 1:46PM ; [facility] Patient education about low cholesterol diet Last Documented On 0 1:46PM ; [facility] Patient education about low carbohydrate diet Last Documented On 0 1:46PM ; [facility] Patient education about high protein diet Last Documented On 0 1:46PM ; [facility] Discussed concerns about exe rcise : promote physical activity Last Documented On 0 1:12PM ; [facility] Work Phone: 1(112) 708-805111-12-2023 Instructions Includes: Instructions for all patient encounters Instructions to patient Intervention and counseling on cessation of tobacco use, 3-10 minutes Last Documented On 0 1:15PM ; [facility] Education and Decision Aids were provided during visit for: [facility] offered active and suppo rtive listening, normalized emotions and feelings, and processed current stressors. ~[facility] empathized with patient regarding her current stressors and encouraged patient to continue to advocate for herself. Patient was receptive Last Documented On 3 4:25PM ; [facility] Discussed nutritional needs teach healthy choices including fruits and vegetables Last Documented On 3 10:19AM ; [facility] Patient education about a pr oper diet Last Documented On 3 10:19AM ; [facility] Discussed concerns about exe rcise : promote physical activity ~ ~Will do vaginal swab to check for yeast infection ~ ~Encouraged to follow up with OBGYN ~ ~Number given to surgeon that GI referred her to, call number and schedule appt ~ ~Follow up at next scheduled appt Last Documented On 3 12:18PM ; [facility] Not requesting contraception Last Documented On 3 10:23AM ; [facility] Discussed nutritional needs teach healthy choices including fruits and vegetables Last Documented On 3 10:48AM ; [facility] Patient education about a pr oper diet Last Documented On 3 10:48AM ; [facility] Discussed concerns about exe rcise : promote physical activity ~ ~Will give augmentin to cover sinuses and urinary tract ~ ~Will send out urine ~ ~Will give steriod due to patients lung sounds ~ ~Will increase symbicort ~ ~Follow up in one month Last Documented On 3 3:48PM ; [facility] Not requesting contraception Last Documented On 3 10:50AM ; [facility] Discussed nutritional needs teach healthy choices including fruits and vegetables Last Documented On 3 11:01AM ; [facility] Patient education about a pr oper diet Last Documented On 3 11:01AM ; [facility] Discussed concerns about exe rcise : promote physical activity ~ ~Follow up after ER visit Last Documented On 3 8:31PM ; [facility] Not requesting contraception Last Documented On 3 11:03AM ; [facility] Discussed nutritional needs teach healthy choices including fruits and vegetables Last Documented On 3 12:03PM ; [facility] Patient education about a pr oper diet Last Documented On 3 12:03PM ; [facility] Discussed concerns about exe rcise : promote physical activity ~ ~Will keep medication the same Last Documented On 3 4:46AM ; [facility] Not requesting contraception Last Documented On 3 12:04PM ; [facility] Discussed nutritional needs teach healthy choices including fruits and vegetables Last Documented On 3 9:09AM ; [facility] Patient education about a pr oper diet Last Documented On 3 9:09AM ; [facility] Patient education about an a sthma action plan Last Documented On 3 9:44AM ; [facility] Discussed concerns about exe rcise : promote physical activity ~ ~Will restart symbicort ~ ~Follow up in one month for asthma Last Documented On 3 12:28PM ; [facility] Discussed nutritional needs teach healthy choices including fruits and vegetables Last Documented On 2 10:58AM ; [facility] Patient education about a pr oper diet Last Documented On 2 10:58AM ; [facility] Discussed concerns about exe rcise : promote physical activity Last Documented On 2 10:58AM ; [facility] Discussed nutritional needs teach healthy choices including fruits and vegetables Last Documented On 2 11:41AM ; [facility] Patient education about a pr oper diet Last Documented On 2 11:41AM ; [facility] Discussed concerns about exe rcise : promote physical activity Last Documented On 2 11:41AM ; [facility] offered active listening and supportive feedback; normalized emotions and feelings, also provided pt time to process any current stressors ~[facility] discussed benefits of counseling and supported pt in following through with scheduled appt. ~[facility] encouraged pt to continue to make time to implement self-care regimen to assist in improving their mood Last Documented On 2 2:29PM ; [facility] Provided supportive listenin g and reflective feedback; monitored mood, explored symptoms, assessed functioning. ~Discussed medication use/compliance. ~Promoted use of healthy coping mechanisms and positive support, as needed Last Documented On 2 1:25PM ; [facility] Discussed nutritional needs teach healthy choices including fruits and vegetables Last Documented On 2 12:54PM ; [facility] Patient education about a pr oper diet Last Documented On 2 12:54PM ; [facility] Discussed concerns about exe rcise : promote physical activity Last Documented On 2 12:54PM ; [facility] Discussed nutritional needs teach healthy choices including fruits and vegetables Last Documented On 2 11:39AM ; [facility] Patient education about a pr oper diet Last Documented On 2 11:39AM ; [facility] Discussed concerns about exe rcise : promote physical activity Last Documented On 2 11:39AM ; [facility] Discussed nutritional needs teach healthy choices including fruits and vegetables Last Documented On 2 10:29AM ; [facility] Patient education about a pr oper diet Last Documented On 2 10:29AM ; [facility] Discussed concerns about exe rcise : promote physical activity Last Documented On 2 10:29AM ; [facility] Discussed current self-care methods/coping skills. ~Validated and normalized patient's feelings while assisting process recent events. ~Discussed ongoing counseling. ~Discussed lifestyle changes to address chronic illness. ~Supported patient's personal health goals Last Documented On 2 8:50PM ; [facility] Discussed nutritional needs teach healthy choices including fruits and vegetables Last Documented On 2 11:15AM ; [facility] Patient education about a pr oper diet Last Documented On 2 11:15AM ; [facility] Discussed concerns about exe rcise : promote physical activity Last Documented On 2 11:15AM ; [facility] Discussed current self-care methods/coping skills. ~Validated and normalized patient's feelings while assisting process recent events. ~Discussed ongoing mental health services. ~Discussed lifestyle changes to address chronic illness. ~Supported patient's personal health goals. ~ ~Reports feeling better since beginning new meds. Also voices and visual hallucinations have stopped; reports voices were not commanfing Last Documented On 2 8:54PM ; [facility] offered active and suppo rtive listening and normalized emotions and feelings. ~[facility] discussed with patient and significant other in the room with her crisis resources. Patient is agreeable to contacting one of the crisis resources should moods worsen or call 911 or go to the Emergency Room. Patient reports that she can also speak with significant others Mom or go to her kids fathers house. ~[facility] and PCP discussed plan to follow-up with psychiatry and counseling and a new referral being sent to [facility]. If patient is not accepted back as a patient with Dr. Dickerson, will look into other resources Last Documented On 1 7:15PM ; [facility] Discussed nutritional needs teach healthy choices including fruits and vegetables Last Documented On 1 1:18PM ; [facility] Patient education about a pr oper diet Last Documented On 1 1:18PM ; [facility] Discussed concerns about exe rcise : promote physical activity Last Documented On 1 1:18PM ; [facility] Discussed nutritional needs teach healthy choices including fruits and vegetables Last Documented On 1 10:37AM ; [facility] Patient education about a pr oper diet Last Documented On 1 10:37AM ; [facility] Discussed concerns about exe rcise : promote physical activity Last Documented On 1 10:37AM ; [facility] Explored current symptoms an d stressors. Educaated patient re importance of counseling and provided brief review of EMDR treatment. ~Encouraged patient to engage in ongoing counseling. ~ Last Documented On 1 10:50PM ; [facility] Discussed nutritional needs teach healthy choices including fruits and vegetables Last Documented On 1 6:53PM ; [facility] Patient education about a pr oper diet Last Documented On 1 6:53PM ; [facility] Discussed concerns about exe rcise : promote physical activity Last Documented On 1 6:53PM ; [facility] provided active listenin g, support and helped patient process through current symptoms and stressors related to mood and irritability. ~[facility] discussed coping skills that patient has tried as well as discussed potential benefit of counseling. ~ ~ Last Documented On 0 11:49AM ; [facility] Discussed nutritional needs teach healthy choices including fruits and vegetables Last Documented On 0 1:15PM ; [facility] Patient education about a pr oper diet Last Documented On 0 1:15PM ; [facility] Patient education about a pr oper diet Last Documented On 0 1:33PM ; [facility] Patient education about meal planning Last Documented On 0 1:33PM ; [facility] Education about changing eat ing habits Last Documented On 0 1:33PM ; [facility] Patient education about high fiber diet Last Documented On 0 1:33PM ; [facility] Patient education about low fat diet Last Documented On 0 1:33PM ; [facility] Patient education about low cholesterol diet Last Documented On 0 1:33PM ; [facility] Patient education about low carbohydrate diet Last Documented On 0 1:33PM ; [facility] Patient education about high protein diet Last Documented On 0 1:33PM ; [facility] Discussed concerns about exe rcise : promote physical activity Last Documented On 0 1:15PM ; [facility] provided active listenin g, support and helped patient process through current symptoms and stressors due to pain, loss of work and low frustration tolerance. ~[facility] discussed coping skills and supports that patient can implement inclduing meditation, mindfulness, and deep breathing activities. [facility] provided resources to patient to work on implementing. ~[facility] discussed with patient re-establishing care for therapy and provided patient with resource list. ~ Last Documented On 0 6:15PM ; [facility] Discussed nutritional needs teach healthy choices including fruits and vegetables Last Documented On 0 1:12PM ; [facility] Patient education about a pr oper diet Last Documented On 0 1:12PM ; [facility] Patient education about a pr oper diet Last Documented On 0 1:46PM ; [facility] Patient education about meal planning Last Documented On 0 1:46PM ; [facility] Education about changing eat ing habits Last Documented On 0 1:46PM ; [facility] Patient education about high fiber diet Last Documented On 0 1:46PM ; [facility] Patient education about low fat diet Last Documented On 0 1:46PM ; [facility] Patient education about low cholesterol diet Last Documented On 0 1:46PM ; [facility] Patient education about low carbohydrate diet Last Documented On 0 1:46PM ; [facility] Patient education about high protein diet Last Documented On 0 1:46PM ; [facility] Discussed concerns about exe rcise : promote physical activity Last Documented On 0 1:12PM ; [facility] Work Phone: 1(373) 905-850111-11-2023 History general Narrative - Reported Includes: Medical History in patient's chart Description Last Updated No previous suicide attempt 02/20/2023 Last Documented On 3 4:27PM ; [facility] No Safety Measures 02/20/2023 Last Documented On 3 4:27PM ; [facility] Not planning to have a baby in the next 12 months 11/30/2022 Last Documented On 3 12:28PM ; [facility] History of anxiety disorder NOS 07/18/19 22 Last Documented On 2 8:10AM ; [facility] No previous hospitalizations 04/03/2021 Last Documented On 1 8:11PM ; [facility] History of complete colonoscopy 04/03/20 21 Last Documented On 1 8:11PM ; [facility] Epilepsy 12/25/2019 Last Documented On 0 1:54PM ; [facility] 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 Last Documented On 0 1:54PM ; [facility] Ovarian cyst 12/25/2019 Last Documented On 0 1:54PM ; [facility] Post-traumatic stress disorder 0 Last Documented On 0 1:54PM ; [facility] History of asthma 12/25/2019 Last Documented On 0 1:54PM ; [facility] History of schizophrenia 12/25/2019 Last Documented On 0 1:54PM ; [facility] History of bipolar disorder NOS 12/25/19 20 Last Documented On 0 1:54PM ; [facility] History of depression 12/25/2019 Last Documented On 0 1:54PM ; [facility] History of psychiatric disorders 020 Last Documented On 0 1:54PM ; [facility] Work Phone: 1([phone]) 132-980611-11-2023 History general Narrative - Reported Includes: Medical History in patient's chart Description Last Updated No previous suicide attempt 02/20/2023 Last Documented On 3 4:27PM ; [facility] No Safety Measures 02/20/2023 Last Documented On 3 4:27PM ; [facility] Not planning to have a baby in the next 12 months 11/30/2022 Last Documented On 3 12:28PM ; [facility] History of anxiety disorder NOS 07/18/19 22 Last Documented On 2 8:10AM ; [facility] No previous hospitalizations 04/03/2021 Last Documented On 1 8:11PM ; [facility] History of complete colonoscopy 04/03/20 21 Last Documented On 1 8:11PM ; [facility] Epilepsy 12/25/2019 Last Documented On 0 1:54PM ; [facility] 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 Last Documented On 0 1:54PM ; [facility] Ovarian cyst 12/25/2019 Last Documented On 0 1:54PM ; [facility] Post-traumatic stress disorder 0 Last Documented On 0 1:54PM ; [facility] History of asthma 12/25/2019 Last Documented On 0 1:54PM ; [facility] History of schizophrenia 12/25/2019 Last Documented On 0 1:54PM ; [facility] History of bipolar disorder NOS 12/25/19 20 Last Documented On 0 1:54PM ; [facility] History of depression 12/25/2019 Last Documented On 0 1:54PM ; [facility] History of psychiatric disorders 020 Last Documented On 0 1:54PM ; [facility] Work Phone: 1([phone]) 316-943111-11-2023 History general Narrative - Reported Includes: Medical History in patient's chart Description Last Updated No previous suicide attempt 02/20/2023 Last Documented On 3 4:27PM ; [facility] No Safety Measures 02/20/2023 Last Documented On 3 4:27PM ; [facility] Not planning to have a baby in the next 12 months 11/30/2022 Last Documented On 3 12:28PM ; [facility] History of anxiety disorder NOS 07/18/19 22 Last Documented On 2 8:10AM ; [facility] No previous hospitalizations 04/03/2021 Last Documented On 1 8:11PM ; [facility] History of complete colonoscopy 04/03/20 21 Last Documented On 1 8:11PM ; [facility] Epilepsy 12/25/2019 Last Documented On 0 1:54PM ; [facility] 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 Last Documented On 0 1:54PM ; [facility] Ovarian cyst 12/25/2019 Last Documented On 0 1:54PM ; [facility] Post-traumatic stress disorder 0 Last Documented On 0 1:54PM ; [facility] History of asthma 12/25/2019 Last Documented On 0 1:54PM ; [facility] History of schizophrenia 12/25/2019 Last Documented On 0 1:54PM ; [facility] History of bipolar disorder NOS 12/25/19 20 Last Documented On 0 1:54PM ; [facility] History of depression 12/25/2019 Last Documented On 0 1:54PM ; [facility] History of psychiatric disorders 020 Last Documented On 0 1:54PM ; [facility] Work Phone: [phone]) [phone] History general Narrative - Reported Includes: Medical History in patient's chart Description Last Updated No previous suicide attempt 02/20/2023 Last Documented On 3 4:27PM ; [facility] No Safety Measures 02/20/2023 Last Documented On 3 4:27PM ; [facility] Not planning to have a baby in the next 12 months 11/30/2022 Last Documented On 3 12:28PM ; [facility] History of anxiety disorder NOS 07/18/19 22 Last Documented On 2 8:10AM ; [facility] No previous hospitalizations 04/03/2021 Last Documented On 1 8:11PM ; [facility] History of complete colonoscopy 04/03/20 21 Last Documented On 1 8:11PM ; [facility] Epilepsy 12/25/2019 Last Documented On 0 1:54PM ; [facility] 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 Last Documented On 0 1:54PM ; [facility] Ovarian cyst 12/25/2019 Last Documented On 0 1:54PM ; [facility] Post-traumatic stress disorder 0 Last Documented On 0 1:54PM ; [facility] History of asthma 12/25/2019 Last Documented On 0 1:54PM ; [facility] History of schizophrenia 12/25/2019 Last Documented On 0 1:54PM ; [facility] History of bipolar disorder NOS 12/25/19 20 Last Documented On 0 1:54PM ; [facility] History of depression 12/25/2019 Last Documented On 0 1:54PM ; [facility] History of psychiatric disorders 020 Last Documented On 0 1:54PM ; [facility] Work Phone: 1([phone]) 256-163311-11-2023 Instructions Includes: Instructions for all patient encounters Instructions to patient Intervention and counseling on cessation of tobacco use, 3-10 minutes Last Documented On 0 1:15PM ; [facility] Education and Decision Aids were provided during visit for: [facility] offered active and suppo rtive listening, normalized emotions and feelings, and processed current stressors. ~P empathized with patient regarding her current stressors and encouraged patient to continue to advocate for herself. Patient was receptive Last Documented On 3 4:25PM ; [facility] Discussed nutritional needs teach healthy choices including fruits and vegetables Last Documented On 3 10:19AM ; [facility] Patient education about a pr oper diet Last Documented On 3 10:19AM ; [facility] Discussed concerns about exe rcise : promote physical activity ~ ~Will do vaginal swab to check for yeast infection ~ ~Encouraged to follow up with OBGYN ~ ~Number given to surgeon that GI referred her to, call number and schedule appt ~ ~Follow up at next scheduled appt Last Documented On 3 12:18PM ; [facility] Not requesting contraception Last Documented On 3 10:23AM ; [facility] Discussed nutritional needs teach healthy choices including fruits and vegetables Last Documented On 3 10:48AM ; [facility] Patient education about a pr oper diet Last Documented On 3 10:48AM ; [facility] Discussed concerns about exe rcise : promote physical activity ~ ~Will give augmentin to cover sinuses and urinary tract ~ ~Will send out urine ~ ~Will give steriod due to patients lung sounds ~ ~Will increase symbicort ~ ~Follow up in one month Last Documented On 3 3:48PM ; [facility] Not requesting contraception Last Documented On 3 10:50AM ; [facility] Discussed nutritional needs teach healthy choices including fruits and vegetables Last Documented On 3 11:01AM ; [facility] Patient education about a pr oper diet Last Documented On 3 11:01AM ; [facility] Discussed concerns about exe rcise : promote physical activity ~ ~Follow up after ER visit Last Documented On 3 8:31PM ; [facility] Not requesting contraception Last Documented On 3 11:03AM ; [facility] Discussed nutritional needs teach healthy choices including fruits and vegetables Last Documented On 3 12:03PM ; [facility] Patient education about a pr oper diet Last Documented On 3 12:03PM ; [facility] Discussed concerns about exe rcise : promote physical activity ~ ~Will keep medication the same Last Documented On 3 4:46AM ; [facility] Not requesting contraception Last Documented On 3 12:04PM ; [facility] Discussed nutritional needs teach healthy choices including fruits and vegetables Last Documented On 3 9:09AM ; [facility] Patient education about a pr oper diet Last Documented On 3 9:09AM ; [facility] Patient education about an a sthma action plan Last Documented On 3 9:44AM ; [facility] Discussed concerns about exe rcise : promote physical activity ~ ~Will restart symbicort ~ ~Follow up in one month for asthma Last Documented On 3 12:28PM ; [facility] Discussed nutritional needs teach healthy choices including fruits and vegetables Last Documented On 2 10:58AM ; [facility] Patient education about a pr oper diet Last Documented On 2 10:58AM ; [facility] Discussed concerns about exe rcise : promote physical activity Last Documented On 2 10:58AM ; [facility] Discussed nutritional needs teach healthy choices including fruits and vegetables Last Documented On 2 11:41AM ; [facility] Patient education about a pr oper diet Last Documented On 2 11:41AM ; [facility] Discussed concerns about exe rcise : promote physical activity Last Documented On 2 11:41AM ; [facility] offered active listening and supportive feedback; normalized emotions and feelings, also provided pt time to process any current stressors ~[facility] discussed benefits of counseling and supported pt in following through with scheduled appt. ~[facility] encouraged pt to continue to make time to implement self-care regimen to assist in improving their mood Last Documented On 2 2:29PM ; [facility] Provided supportive listenin g and reflective feedback; monitored mood, explored symptoms, assessed functioning. ~Discussed medication use/compliance. ~Promoted use of healthy coping mechanisms and positive support, as needed Last Documented On 2 1:25PM ; [facility] Discussed nutritional needs teach healthy choices including fruits and vegetables Last Documented On 2 12:54PM ; [facility] Patient education about a pr oper diet Last Documented On 2 12:54PM ; [facility] Discussed concerns about exe rcise : promote physical activity Last Documented On 2 12:54PM ; [facility] Discussed nutritional needs teach healthy choices including fruits and vegetables Last Documented On 2 11:39AM ; [facility] Patient education about a pr oper diet Last Documented On 2 11:39AM ; [facility] Discussed concerns about exe rcise : promote physical activity Last Documented On 2 11:39AM ; [facility] Discussed nutritional needs teach healthy choices including fruits and vegetables Last Documented On 2 10:29AM ; [facility] Patient education about a pr oper diet Last Documented On 2 10:29AM ; [facility] Discussed concerns about exe rcise : promote physical activity Last Documented On 2 10:29AM ; [facility] Discussed current self-care methods/coping skills. ~Validated and normalized patient's feelings while assisting process recent events. ~Discussed ongoing counseling. ~Discussed lifestyle changes to address chronic illness. ~Supported patient's personal health goals Last Documented On 2 8:50PM ; [facility] Discussed nutritional needs teach healthy choices including fruits and vegetables Last Documented On 2 11:15AM ; [facility] Patient education about a pr oper diet Last Documented On 2 11:15AM ; [facility] Discussed concerns about exe rcise : promote physical activity Last Documented On 2 11:15AM ; [facility] Discussed current self-care methods/coping skills. ~Validated and normalized patient's feelings while assisting process recent events. ~Discussed ongoing mental health services. ~Discussed lifestyle changes to address chronic illness. ~Supported patient's personal health goals. ~ ~Reports feeling better since beginning new meds. Also voices and visual hallucinations have stopped; reports voices were not commanfing Last Documented On 2 8:54PM ; [facility] offered active and suppo rtive listening and normalized emotions and feelings. ~P discussed with patient and significant other in the room with her crisis resources. Patient is agreeable to contacting one of the crisis resources should moods worsen or call 911 or go to the Emergency Room. Patient reports that she can also speak with significant others Mom or go to her [employer] fathers house. ~[facility] and [facility]CP discussed plan to follow-up with psychiatry and counseling and a new referral being sent to [facility]. If patient is not accepted back as a patient with Dr. Dickerson, will look into other resources Last Documented On 1 7:15PM ; [facility] Discussed nutritional needs teach healthy choices including fruits and vegetables Last Documented On 1 1:18PM ; [facility] Patient education about a pr oper diet Last Documented On 1 1:18PM ; [facility] Discussed concerns about exe rcise : promote physical activity Last Documented On 1 1:18PM ; [facility] Discussed nutritional needs teach healthy choices including fruits and vegetables Last Documented On 1 10:37AM ; [facility] Patient education about a pr oper diet Last Documented On 1 10:37AM ; [facility] Discussed concerns about exe rcise : promote physical activity Last Documented On 1 10:37AM ; [facility] Explored current symptoms an d stressors. Educaated patient re importance of counseling and provided brief review of EMDR treatment. ~Encouraged patient to engage in ongoing counseling. ~ Last Documented On 1 10:50PM ; [facility] Discussed nutritional needs teach healthy choices including fruits and vegetables Last Documented On 1 6:53PM ; [facility] Patient education about a pr oper diet Last Documented On 1 6:53PM ; [facility] Discussed concerns about exe rcise : promote physical activity Last Documented On 1 6:53PM ; [facility] provided active listenin g, support and helped patient process through current symptoms and stressors related to mood and irritability. ~P discussed coping skills that patient has tried as well as discussed potential benefit of counseling. ~ ~ Last Documented On 0 11:49AM ; [facility] Discussed nutritional needs teach healthy choices including fruits and vegetables Last Documented On 0 1:15PM ; [facility] Patient education about a pr oper diet Last Documented On 0 1:15PM ; [facility] Patient education about a pr oper diet Last Documented On 0 1:33PM ; [facility] Patient education about meal planning Last Documented On 0 1:33PM ; [facility] Education about changing eat ing habits Last Documented On 0 1:33PM ; [facility] Patient education about high fiber diet Last Documented On 0 1:33PM ; [facility] Patient education about low fat diet Last Documented On 0 1:33PM ; [facility] Patient education about low cholesterol diet Last Documented On 0 1:33PM ; [facility] Patient education about low carbohydrate diet Last Documented On 0 1:33PM ; [facility] Patient education about high protein diet Last Documented On 0 1:33PM ; [facility] Discussed concerns about exe rcise : promote physical activity Last Documented On 0 1:15PM ; [facility] provided active listenin g, support and helped patient process through current symptoms and stressors due to pain, loss of work and low frustration tolerance. ~[facility] discussed coping skills and supports that patient can implement inclduing meditation, mindfulness, and deep breathing activities. [facility] provided resources to patient to work on implementing. ~[facility] discussed with patient re-establishing care for therapy and provided patient with resource list. ~ Last Documented On 0 6:15PM ; [facility] Discussed nutritional needs teach healthy choices including fruits and vegetables Last Documented On 0 1:12PM ; [facility] Patient education about a pr oper diet Last Documented On 0 1:12PM ; [facility] Patient education about a pr oper diet Last Documented On 0 1:46PM ; [facility] Patient education about meal planning Last Documented On 0 1:46PM ; [facility] Education about changing eat ing habits Last Documented On 0 1:46PM ; [facility] Patient education about high fiber diet Last Documented On 0 1:46PM ; [facility] Patient education about low fat diet Last Documented On 0 1:46PM ; [facility] Patient education about low cholesterol diet Last Documented On 0 1:46PM ; [facility] Patient education about low carbohydrate diet Last Documented On 0 1:46PM ; [facility] Patient education about high protein diet Last Documented On 0 1:46PM ; [facility] Discussed concerns about exe rcise : promote physical activity Last Documented On 0 1:12PM ; [facility] Work Phone: 1(673) 275-607111-10-2023 Evaluation note Includes: Assessments for all patient encounters Findings Encounter Date Anxiety disorder NOS Established Patient with Lea NATHAN 02/19/2023 Last Documented On 3 4:27PM ; [facility] Bipolar schizoaffective disorder Esta blished Patient with Lea Arguelles MUSEUM ASSISTANT-S 02/19/2023 Last Documented On 3 4:27PM ; [facility] Nicotine dependence BH Established Patient with Lea Stone MUSEUM ASSISTANT-S 02/19/2023 Last Documented On 3 4:27PM ; [facility] Assessment of body mass index Open Acces s - Established with Srinivasa Ed BIOLOGY ADJUNCT INSTRUCTOR 02/19/2023 Last Documented On 3 12:18PM ; [facility] [Body mass index [BMI] 33.0- 33.9, adult] assessment of body mass index Medical Established Patient with Srinivasa Ed BIOLOGY ADJUNCT INSTRUCTOR 02/05/2023 Last Documented On 3 3:48PM ; [facility] Anxiety disorder NOS Medical Established Patient with Srinivasa Ed BIOLOGY ADJUNCT INSTRUCTOR 02/05/2023 Last Documented On 3 3:48PM ; [facility] Body mass index Medical Established Patient with Srinivasa Ed BIOLOGY ADJUNCT INSTRUCTOR 01/28/2023 Last Documented On 3 8:31PM ; [facility] [Body mass index [BMI] 32.0- 32.9, adult] assessment of body mass index Medical Established Patient with Srinivasa Ed BIOLOGY ADJUNCT INSTRUCTOR 12/31/2022 Last Documented On 3 5:25AM ; [facility] Uncomplicated mild persistent asthma Med ical Established Patient with Srinivasa Ed BIOLOGY ADJUNCT INSTRUCTOR 12/31/2022 Last Documented On 3 5:25AM ; [facility] [Body mass index [BMI] 33.0- 33.9, adult] assessment of body mass index Medical Established Patient with Srinivasa Ed BIOLOGY ADJUNCT INSTRUCTOR 11/30/2022 Last Documented On 3 12:28PM ; [facility] Anxiety disorder NOS Medical Established Patient with Srinivasa Ed BIOLOGY ADJUNCT INSTRUCTOR 11/30/2022 Last Documented On 3 12:28PM ; [facility] Diabetes Risk Test Score was four score 11/30/2022 Medical Established Patient with Srinivasa Ed BIOLOGY ADJUNCT INSTRUCTOR 11/30/2022 Last Documented On 3 12:28PM ; [facility] Uncomplicated mild persistent asthma Med ical Established Patient with Srinivasa Ed BIOLOGY ADJUNCT INSTRUCTOR 11/30/2022 Last Documented On 3 12:28PM ; [facility] Visit for: routine adult H&P with abnormal findings Medical Established Patient with Srinivasa Ed BIOLOGY ADJUNCT INSTRUCTOR 11/30/2022 Last Documented On 3 12:28PM ; [facility] [Body mass index [BMI] 30.0- 30.9, adult] assessment of body mass index Medical Established Patient with Srinivasa Ed BIOLOGY ADJUNCT INSTRUCTOR 01/22/2022 Last Documented On 2 6:17PM ; [facility] Dysuria Medical Established Patient with Srinivasa Ed BIOLOGY ADJUNCT INSTRUCTOR 01/22/2022 Last Documented On 2 6:17PM ; [facility] Bipolar schizoaffective disorder BH Esta blished Patient with Inatameka Díza LPCC-S 12/11/2021 Last Documented On 2 2:31PM ; [facility] Assessment of body mass inde x [Body mass index [BMI] 26.0-26.9, adult] Medical Established Patient with Srinivasa Ed BIOLOGY ADJUNCT INSTRUCTOR 12/11/2021 Last Documented On 2 12:34PM ; [facility] Bipolar schizoaffective disorder BH Esta blished Patient with Inatameka Díaz LPCC-S 11/25/2021 Last Documented On 2 1:25PM ; [facility] Anxiety disorder NOS Medical Established Patient with Traci Juma BIOLOGY ADJUNCT INSTRUCTOR 11/25/2021 Last Documented On 2 3:06PM ; [facility] Urinary tract infection Medical Establis hed Patient with Traci Juma BIOLOGY ADJUNCT INSTRUCTOR 11/25/2021 Last Documented On 2 3:06PM ; [facility] Z68.27 - Body mass index [BM I] 27.0-27.9, adult Medical Established Patient with Traci Juma BIOLOGY ADJUNCT INSTRUCTOR 11/25/2021 Last Documented On 2 3:06PM ; [facility] Anxiety disorder NOS Medical Established Patient with Traci Juma BIOLOGY ADJUNCT INSTRUCTOR 08/13/2021 Last Documented On 2 8:18AM ; [facility] Assessment of body mass index Medical Es tablished Patient with Traci Juma BIOLOGY ADJUNCT INSTRUCTOR 08/13/2021 Last Documented On 2 8:18AM ; [facility] Chronic gastritis without hemorrhage Med ical Established Patient with Traci Dennison BIOLOGY ADJUNCT INSTRUCTOR 08/13/2021 Last Documented On 2 8:18AM ; [facility] Diverticulosis of intestine Medical Esta blished Patient with Traci Juma BIOLOGY ADJUNCT INSTRUCTOR 08/13/2021 Last Documented On 2 8:18AM ; [facility] Urinary tract infection Medical Establis hed Patient with Traci Juma BIOLOGY ADJUNCT INSTRUCTOR 08/13/2021 Last Documented On 2 8:18AM ; [facility] Anxiety disorder NOS Medical Established Patient with Traci Juma BIOLOGY ADJUNCT INSTRUCTOR 07/17/2021 Last Documented On 2 8:10AM ; [facility] Other hypothyroidism Medical Established Patient with Traci Dennison BIOLOGY ADJUNCT INSTRUCTOR 07/17/2021 Last Documented On 2 8:10AM ; [facility] Upper respiratory infection Medical Esta blished Patient with Traci Dennison BIOLOGY ADJUNCT INSTRUCTOR 07/17/2021 Last Documented On 2 8:10AM ; [facility] Visit for: routine adult H&P with abnormal findings Medical Established Patient with Traci Dennison BIOLOGY ADJUNCT INSTRUCTOR 07/17/2021 Last Documented On 2 8:10AM ; [facility] Visit for: screening for lip oid disorders Medical Established Patient with Traci Dennison BIOLOGY ADJUNCT INSTRUCTOR 07/17/2021 Last Documented On 2 8:10AM ; [facility] Vitamin B12 deficiency Medical Establish ed Patient with Traci Dennison BIOLOGY ADJUNCT INSTRUCTOR 07/17/2021 Last Documented On 2 8:10AM ; [facility] Vitamin D deficiency Medical Established Patient with Tracialyx Dennison BIOLOGY ADJUNCT INSTRUCTOR 07/17/2021 Last Documented On 2 8:10AM ; [facility] Z68.28 - Body mass index [BM I] 28.0-28.9, adult Medical Established Patient with Traci Dennison BIOLOGY ADJUNCT INSTRUCTOR 07/17/2021 Last Documented On 2 8:10AM ; [facility] Allergic rhinitis Telemedicine Establi sted Patient with Traci Dennison BIOLOGY ADJUNCT INSTRUCTOR 07/16/2021 Last Documented On 2 8:23AM ; [facility] Exposure to COVID-19 Telemedicine Establ isted Patient with Traci Dennison BIOLOGY ADJUNCT INSTRUCTOR 04/29/2021 Last Documented On 2 8:02PM ; [facility] Bipolar schizoaffective disorder Esta blished Patient with Farrah Jarrett LPCC-S 04/15/2021 Last Documented On 2 1:07PM ; [facility] Anxiety disorder NOS Medical Established Patient with Traci Dennison BIOLOGY ADJUNCT INSTRUCTOR 04/15/2021 Last Documented On 2 9:06AM ; [facility] Assessment of body mass index Medical Es tablished Patient with Traci Dennison BIOLOGY ADJUNCT INSTRUCTOR 04/15/2021 Last Documented On 2 9:06AM ; [facility] Bipolar disorder NOS Medical Established Patient with Traci Dennison BIOLOGY ADJUNCT INSTRUCTOR 04/15/2021 Last Documented On 2 9:06AM ; [facility] Anxiety disorder NOS Telebehavioral H ealth with Farrah Jarrett LPCC-S 04/09/2021 Last Documented On 2 9:05AM ; [facility] Bipolar disorder NOS Telebehavioral H ealth with Farrah Jarrett LPCC-S 04/09/2021 Last Documented On 2 9:05AM ; [facility] Anxiety disorder NOS Established Patient with Hannah Short LISWS 04/03/2021 Last Documented On 1 7:15PM ; [facility] Bipolar I disorder, most rec ent episode, depressed Established Patient with Hannah Short LISWS 04/03/2021 Last Documented On 1 7:15PM ; [facility] Nicotine dependence Established Patient with Hannah Short LISWS 04/03/2021 Last Documented On 1 7:15PM ; [facility] Nicotine dependence Established Patient with Hannah Short LISWS 04/03/2021 Last Documented On 1 7:15PM ; [facility] Undifferentiated schizophren ia per patient reported history Established Patient with Hannah Short LISWS 04/03/2021 Last Documented On 1 7:15PM ; [facility] A home test was negative Medic al Established Patient with Traci Dennison BIOLOGY ADJUNCT INSTRUCTOR 04/03/2021 Last Documented On 1 8:11PM ; [facility] Assessment of body mass index Medical Es tablished Patient with Traci Dennison BIOLOGY ADJUNCT INSTRUCTOR 04/03/2021 Last Documented On 1 8:11PM ; [facility] Epilepsy, not intractable, w ithout status epilepticus Medical Established Patient with Traci Dennison BIOLOGY ADJUNCT INSTRUCTOR 04/03/2021 Last Documented On 1 8:11PM ; [facility] Mixed affective bipolar diso rder, moderate Medical Established Patient with Traci Dennison BIOLOGY ADJUNCT INSTRUCTOR 04/03/2021 Last Documented On 1 8:11PM ; [facility] Urinary tract infection Medical Establis hed Patient with Traci Dennison BIOLOGY ADJUNCT INSTRUCTOR 04/03/2021 Last Documented On 1 8:11PM ; [facility] Visit for: screening for STD Medical Est ablished Patient with Traci Dennison [facility] 04/03/2021 Last Documented On 1 8:11PM ; [facility] Assessment of visit for: scr eening for human immunodeficiency virus Medical Established Patient with Peggy Thrasher [facility] 02/14/2021 Last Documented On 1 1:16PM ; [facility] Diabetes Risk Test Score was three score 02/14/2021 Medical Established Patient with Peggy Thrasher [facility] 02/14/2021 Last Documented On 1 1:16PM ; [facility] Diarrhea Medical Established Patient with Peggy Thrasher BIOLOGY ADJUNCT INSTRUCTOR 02/14/2021 Last Documented On 1 1:16PM ; [facility] Nicotine dependence Medical Established Patient with Peggy Thrasher [facility] 02/14/2021 Last Documented On 1 1:16PM ; [facility] Z68.28 - Body mass index [BM I] 28.0-28.9, adult Medical Established Patient with Peggy Thrasher BIOLOGY ADJUNCT INSTRUCTOR 02/14/2021 Last Documented On 1 1:16PM ; [facility] Cough Telemedicine Establisted Patient with Traci Dennison BIOLOGY ADJUNCT INSTRUCTOR 01/01/2021 Last Documented On 1 6:31PM ; [facility] Fever Telemedicine Establisted Patient with Traci Dennison BIOLOGY ADJUNCT INSTRUCTOR 01/01/2021 Last Documented On 1 6:31PM ; [facility] Z20.822 - Contact with and (suspected) exposure to COVID-19 Telemedicine Establisted Patient with Traci Dennison BIOLOGY ADJUNCT INSTRUCTOR 01/01/2021 Last Documented On 1 6:31PM ; [facility] Bipolar I disorder, most rec ent episode, depressed Established Patient with Farrah Jarrett LPCC-S 06/03/2020 Last Documented On 1 10:50PM ; [facility] Paranoid schizophrenia per p atient report Established Patient with Farrah Jarrett LPCC-S 06/03/2020 Last Documented On 1 10:50PM ; [facility] Post-traumatic stress disord er per patient report Established Patient with Farrah Jarrett LPCC-S 06/03/2020 Last Documented On 1 10:50PM ; [facility] 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 Patient with Traci Dennison [facility] 06/03/2020 Last Documented On 1 8:25AM ; [facility] Overweight Medical Established Patient with Traci Dennison BIOLOGY ADJUNCT INSTRUCTOR 06/03/2020 Last Documented On 1 8:25AM ; [facility] Z68.29 - Body mass index [BM I] 29.0-29.9, adult Medical Established Patient with Traci Dennison BIOLOGY ADJUNCT INSTRUCTOR 06/03/2020 Last Documented On 1 8:25AM ; [facility] Anxiety disorder NOS Medical Established Patient with Traci Dennison BIOLOGY ADJUNCT INSTRUCTOR 01/26/2020 Last Documented On 0 7:37PM ; [facility] Bipolar disorder NOS Medical Established Patient with Traci Dennison BIOLOGY ADJUNCT INSTRUCTOR 01/26/2020 Last Documented On 0 7:37PM ; [facility] Infection of tooth Medical Established Patient w ith Traci Dennison [facility] 01/26/2020 Last Documented On 0 7:37PM ; [facility] Z68.20 - Body mass index [BM I] 20.0-20.9, adult Medical Established Patient with Traci Dennison BIOLOGY ADJUNCT INSTRUCTOR 01/26/2020 Last Documented On 0 7:37PM ; [facility] Bipolar I disorder, most rec ent episode, mixed Established Patient with Hannah Short LISWS 01/08/2020 Last Documented On 0 11:49AM ; [facility] Generalized anxiety disorder Establis hed Patient with Hannah Short LISWS 01/08/2020 Last Documented On 0 11:49AM ; [facility] Diabetes Risk Test Score was one score 01/08/2020 Medical Established Patient with Peggy Anna Marie BIOLOGY ADJUNCT INSTRUCTOR 01/08/2020 Last Documented On 0 1:42PM ; [facility] Overweight Medical Established Patient with Peggy Anna Marie BIOLOGY ADJUNCT INSTRUCTOR 01/08/2020 Last Documented On 0 1:42PM ; [facility] Z68.27 - Body mass index (BM I) 27.0-27.9, adult Medical Established Patient with Peggy Anna Marie BIOLOGY ADJUNCT INSTRUCTOR 01/08/2020 Last Documented On 0 1:42PM ; [facility] Bipolar I disorder, most rec ent episode, mixed Established Patient with Hannah Short LISWS 12/25/2019 Last Documented On 0 6:16PM ; [facility] Generalized anxiety disorder Establis hed Patient with Hannah Short LISWS 12/25/2019 Last Documented On 0 6:16PM ; [facility] Overweight Medical Established Patient with Peggy Anna Marie BIOLOGY ADJUNCT INSTRUCTOR 12/25/2019 Last Documented On 0 1:54PM ; [facility] Z68.26 - Body mass index (BM I) 26.0-26.9, adult Medical Established Patient with Peggy Anna Marie BIOLOGY ADJUNCT INSTRUCTOR 12/25/2019 Last Documented On 0 1:54PM ; [facility] Work Phone: 1(571) 549-964511-10-2023 Evaluation note Includes: Assessments for all patient encounters Findings Encounter Date Anxiety disorder NOS Established Patient with Lea Stone MUSEUM ASSISTANT-S 02/19/2023 Last Documented On 3 4:27PM ; [facility] Bipolar schizoaffective disorder Esta blished Patient with Lea Stone MUSEUM ASSISTANT-S 02/19/2023 Last Documented On 3 4:27PM ; [facility] Nicotine dependence BH Established Patient with Lea Stone MUSEUM ASSISTANT-S 02/19/2023 Last Documented On 3 4:27PM ; [facility] Assessment of body mass index Open Acces s - Established with Srinivasa Ed BIOLOGY ADJUNCT INSTRUCTOR 02/19/2023 Last Documented On 3 9:22PM ; [facility] [Body mass index [BMI] 33.0- 33.9, adult] assessment of body mass index Medical Established Patient with Srinivasa Ed BIOLOGY ADJUNCT INSTRUCTOR 02/05/2023 Last Documented On 3 3:48PM ; [facility] Anxiety disorder NOS Medical Established Patient with Srinivasa Ed BIOLOGY ADJUNCT INSTRUCTOR 02/05/2023 Last Documented On 3 3:48PM ; [facility] Body mass index Medical Established Patient with Srinivasa Ed BIOLOGY ADJUNCT INSTRUCTOR 01/28/2023 Last Documented On 3 8:31PM ; [facility] [Body mass index [BMI] 32.0- 32.9, adult] assessment of body mass index Medical Established Patient with Srinivasa Ed BIOLOGY ADJUNCT INSTRUCTOR 12/31/2022 Last Documented On 3 5:25AM ; [facility] Uncomplicated mild persistent asthma Med ical Established Patient with Srinivasa Ed BIOLOGY ADJUNCT INSTRUCTOR 12/31/2022 Last Documented On 3 5:25AM ; [facility] [Body mass index [BMI] 33.0- 33.9, adult] assessment of body mass index Medical Established Patient with Srinivasa Ed BIOLOGY ADJUNCT INSTRUCTOR 11/30/2022 Last Documented On 3 12:28PM ; [facility] Anxiety disorder NOS Medical Established Patient with Srinivasa Ed BIOLOGY ADJUNCT INSTRUCTOR 11/30/2022 Last Documented On 3 12:28PM ; [facility] Diabetes Risk Test Score was four score 11/30/2022 Medical Established Patient with Srinivasa Ed BIOLOGY ADJUNCT INSTRUCTOR 11/30/2022 Last Documented On 3 12:28PM ; [facility] Uncomplicated mild persistent asthma Med ical Established Patient with Srinivasa Ed BIOLOGY ADJUNCT INSTRUCTOR 11/30/2022 Last Documented On 3 12:28PM ; [facility] Visit for: routine adult H&P with abnormal findings Medical Established Patient with Srinivasa Ed BIOLOGY ADJUNCT INSTRUCTOR 11/30/2022 Last Documented On 3 12:28PM ; [facility] [Body mass index [BMI] 30.0- 30.9, adult] assessment of body mass index Medical Established Patient with Srinivasa Ed BIOLOGY ADJUNCT INSTRUCTOR 01/22/2022 Last Documented On 2 6:17PM ; [facility] Dysuria Medical Established Patient with Srinivasa Ed BIOLOGY ADJUNCT INSTRUCTOR 01/22/2022 Last Documented On 2 6:17PM ; [facility] Bipolar schizoaffective disorder BH Esta blished Patient with Inatameka Díaz LPCC-S 12/11/2021 Last Documented On 2 2:31PM ; [facility] Assessment of body mass inde x [Body mass index [BMI] 26.0-26.9, adult] Medical Established Patient with Srinivasa Ed BIOLOGY ADJUNCT INSTRUCTOR 12/11/2021 Last Documented On 2 12:34PM ; [facility] Bipolar schizoaffective disorder BH Esta blished Patient with Inatameka Díaz LPCC-S 11/25/2021 Last Documented On 2 1:25PM ; [facility] Anxiety disorder NOS Medical Established Patient with Traci Juma [facility] 11/25/2021 Last Documented On 2 3:06PM ; [facility] Urinary tract infection Medical Establis hed Patient with Traci Juma [facility] 11/25/2021 Last Documented On 2 3:06PM ; [facility] Z68.27 - Body mass index [BM I] 27.0-27.9, adult Medical Established Patient with Traci Juma BIOLOGY ADJUNCT INSTRUCTOR 11/25/2021 Last Documented On 2 3:06PM ; [facility] Anxiety disorder NOS Medical Established Patient with Traci Juma BIOLOGY ADJUNCT INSTRUCTOR 08/13/2021 Last Documented On 2 8:18AM ; [facility] Assessment of body mass index Medical Es tablished Patient with Traci Juma BIOLOGY ADJUNCT INSTRUCTOR 08/13/2021 Last Documented On 2 8:18AM ; [facility] Chronic gastritis without hemorrhage Med ical Established Patient with Traci Dennison BIOLOGY ADJUNCT INSTRUCTOR 08/13/2021 Last Documented On 2 8:18AM ; [facility] Diverticulosis of intestine Medical Esta blished Patient with Traci Dennison BIOLOGY ADJUNCT INSTRUCTOR 08/13/2021 Last Documented On 2 8:18AM ; [facility] Urinary tract infection Medical Establis hed Patient with Traci Dennison BIOLOGY ADJUNCT INSTRUCTOR 08/13/2021 Last Documented On 2 8:18AM ; [facility] Anxiety disorder NOS Medical Established Patient with Traci Dennison BIOLOGY ADJUNCT INSTRUCTOR 07/17/2021 Last Documented On 2 8:10AM ; [facility] Other hypothyroidism Medical Established Patient with Traci Dennison BIOLOGY ADJUNCT INSTRUCTOR 07/17/2021 Last Documented On 2 8:10AM ; [facility] Upper respiratory infection Medical Esta blished Patient with Traci Dennison BIOLOGY ADJUNCT INSTRUCTOR 07/17/2021 Last Documented On 2 8:10AM ; [facility] Visit for: routine adult H&P with abnormal findings Medical Established Patient with Traci Dennison BIOLOGY ADJUNCT INSTRUCTOR 07/17/2021 Last Documented On 2 8:10AM ; [facility] Visit for: screening for lip oid disorders Medical Established Patient with Traci Dennison BIOLOGY ADJUNCT INSTRUCTOR 07/17/2021 Last Documented On 2 8:10AM ; [facility] Vitamin B12 deficiency Medical Establish ed Patient with Traci Dennison BIOLOGY ADJUNCT INSTRUCTOR 07/17/2021 Last Documented On 2 8:10AM ; [facility] Vitamin D deficiency Medical Established Patient with Traci Dennison BIOLOGY ADJUNCT INSTRUCTOR 07/17/2021 Last Documented On 2 8:10AM ; [facility] Z68.28 - Body mass index [BM I] 28.0-28.9, adult Medical Established Patient with Traci Dennison BIOLOGY ADJUNCT INSTRUCTOR 07/17/2021 Last Documented On 2 8:10AM ; [facility] Allergic rhinitis Telemedicine Establi sted Patient with Traci Dennison BIOLOGY ADJUNCT INSTRUCTOR 07/16/2021 Last Documented On 2 8:23AM ; [facility] Exposure to COVID-19 Telemedicine Establ isted Patient with Traci Dennison BIOLOGY ADJUNCT INSTRUCTOR 04/29/2021 Last Documented On 2 8:02PM ; [facility] Bipolar schizoaffective disorder BH Esta blished Patient with Farrah Jarrett LPCC-S 04/15/2021 Last Documented On 2 1:07PM ; [facility] Anxiety disorder NOS Medical Established Patient with Traci Dennison BIOLOGY ADJUNCT INSTRUCTOR 04/15/2021 Last Documented On 2 9:06AM ; [facility] Assessment of body mass index Medical Es tablished Patient with Traci Dennison BIOLOGY ADJUNCT INSTRUCTOR 04/15/2021 Last Documented On 2 9:06AM ; [facility] Bipolar disorder NOS Medical Established Patient with Traci Dennison BIOLOGY ADJUNCT INSTRUCTOR 04/15/2021 Last Documented On 2 9:06AM ; [facility] Anxiety disorder NOS Telebehavioral H ealth with Farrah Jarrett LPCC-S 04/09/2021 Last Documented On 2 9:05AM ; [facility] Bipolar disorder NOS Telebehavioral H ealth with Farrah Jarrett LPCC-S 04/09/2021 Last Documented On 2 9:05AM ; [facility] Anxiety disorder NOS Established Patient with Hannah Short LISWS 04/03/2021 Last Documented On 1 7:15PM ; [facility] Bipolar I disorder, most rec ent episode, depressed Established Patient with Hannah Short LISWS 04/03/2021 Last Documented On 1 7:15PM ; [facility] Nicotine dependence Established Patient with Hannah Short LISWS 04/03/2021 Last Documented On 1 7:15PM ; [facility] Nicotine dependence Established Patient with Hannah Short LISWS 04/03/2021 Last Documented On 1 7:15PM ; [facility] Undifferentiated schizophren ia per patient reported history Established Patient with Hannah Short LISWS 04/03/2021 Last Documented On 1 7:15PM ; [facility] A home test was negative Medic al Established Patient with Traci Dennison BIOLOGY ADJUNCT INSTRUCTOR 04/03/2021 Last Documented On 1 8:11PM ; [facility] Assessment of body mass index Medical Es tablished Patient with Traci Dennison BIOLOGY ADJUNCT INSTRUCTOR 04/03/2021 Last Documented On 1 8:11PM ; [facility] Epilepsy, not intractable, w ithout status epilepticus Medical Established Patient with Traci Dennison BIOLOGY ADJUNCT INSTRUCTOR 04/03/2021 Last Documented On 1 8:11PM ; [facility] Mixed affective bipolar diso rder, moderate Medical Established Patient with Traci Dennison BIOLOGY ADJUNCT INSTRUCTOR 04/03/2021 Last Documented On 1 8:11PM ; [facility] Urinary tract infection Medical Establis hed Patient with Traci Dennison [facility] 04/03/2021 Last Documented On 1 8:11PM ; [facility] Visit for: screening for STD Medical Est ablished Patient with Traci Dennison [facility] 04/03/2021 Last Documented On 1 8:11PM ; [facility] Assessment of visit for: scr eening for human immunodeficiency virus Medical Established Patient with Peggy Thrasher [facility] 02/14/2021 Last Documented On 1 1:16PM ; [facility] Diabetes Risk Test Score was three score 02/14/2021 Medical Established Patient with Peggy Thrasher [facility] 02/14/2021 Last Documented On 1 1:16PM ; [facility] Diarrhea Medical Established Patient with Peggy Thrasher BIOLOGY ADJUNCT INSTRUCTOR 02/14/2021 Last Documented On 1 1:16PM ; [facility] Nicotine dependence Medical Established Patient with Peggy Thrasher [facility] 02/14/2021 Last Documented On 1 1:16PM ; [facility] Z68.28 - Body mass index [BM I] 28.0-28.9, adult Medical Established Patient with Peggy Thrasher BIOLOGY ADJUNCT INSTRUCTOR 02/14/2021 Last Documented On 1 1:16PM ; [facility] Cough Telemedicine Establisted Patient with Traci Dennison BIOLOGY ADJUNCT INSTRUCTOR 01/01/2021 Last Documented On 1 6:31PM ; [facility] Fever Telemedicine Establisted Patient with Traci Dennison BIOLOGY ADJUNCT INSTRUCTOR 01/01/2021 Last Documented On 1 6:31PM ; [facility] Z20.822 - Contact with and (suspected) exposure to COVID-19 Telemedicine Establisted Patient with Traci Dennison BIOLOGY ADJUNCT INSTRUCTOR 01/01/2021 Last Documented On 1 6:31PM ; [facility] Bipolar I disorder, most rec ent episode, depressed Established Patient with Farrah Hernandezs LPCC-S 06/03/2020 Last Documented On 1 10:50PM ; [facility] Paranoid schizophrenia per p atient report Established Patient with Farrah Hernandezs LPCC-S 06/03/2020 Last Documented On 1 10:50PM ; [facility] Post-traumatic stress disord er per patient report Established Patient with Farrah Jarrett LPCC-S 06/03/2020 Last Documented On 1 10:50PM ; [facility] 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 Patient with Traci Dennison BIOLOGY ADJUNCT INSTRUCTOR 06/03/2020 Last Documented On 1 8:25AM ; [facility] Overweight Medical Established Patient with Traci Dennison BIOLOGY ADJUNCT INSTRUCTOR 06/03/2020 Last Documented On 1 8:25AM ; [facility] Z68.29 - Body mass index [BM I] 29.0-29.9, adult Medical Established Patient with Traci Dennison BIOLOGY ADJUNCT INSTRUCTOR 06/03/2020 Last Documented On 1 8:25AM ; [facility] Anxiety disorder NOS Medical Established Patient with Traci Dennison BIOLOGY ADJUNCT INSTRUCTOR 01/26/2020 Last Documented On 0 7:37PM ; [facility] Bipolar disorder NOS Medical Established Patient with Traci Dennison BIOLOGY ADJUNCT INSTRUCTOR 01/26/2020 Last Documented On 0 7:37PM ; [facility] Infection of tooth Medical Established Patient w ith Traci Dennison BIOLOGY ADJUNCT INSTRUCTOR 01/26/2020 Last Documented On 0 7:37PM ; [facility] Z68.20 - Body mass index [BM I] 20.0-20.9, adult Medical Established Patient with Traci Dennison BIOLOGY ADJUNCT INSTRUCTOR 01/26/2020 Last Documented On 0 7:37PM ; [facility] Bipolar I disorder, most rec ent episode, mixed Established Patient with Hannah Short LISWS 01/08/2020 Last Documented On 0 11:49AM ; [facility] Generalized anxiety disorder BH Establis hed Patient with Hannah Short LISWS 01/08/2020 Last Documented On 0 11:49AM ; [facility] Diabetes Risk Test Score was one score 01/08/2020 Medical Established Patient with Peggyisis Thrasher BIOLOGY ADJUNCT INSTRUCTOR 01/08/2020 Last Documented On 0 1:42PM ; [facility] Overweight Medical Established Patient with Peggy Anna Marie BIOLOGY ADJUNCT INSTRUCTOR 01/08/2020 Last Documented On 0 1:42PM ; [facility] Z68.27 - Body mass index (BM I) 27.0-27.9, adult Medical Established Patient with Peggy Anna Marie BIOLOGY ADJUNCT INSTRUCTOR 01/08/2020 Last Documented On 0 1:42PM ; [facility] Bipolar I disorder, most rec ent episode, mixed Established Patient with Hannah Short LISWS 12/25/2019 Last Documented On 0 6:16PM ; [facility] Generalized anxiety disorder Establis hed Patient with Hannah Short LISWS 12/25/2019 Last Documented On 0 6:16PM ; [facility] Overweight Medical Established Patient with Peggy Anna Marie BIOLOGY ADJUNCT INSTRUCTOR 12/25/2019 Last Documented On 0 1:54PM ; [facility] Z68.26 - Body mass index (BM I) 26.0-26.9, adult Medical Established Patient with Peggyisis Thrasher BIOLOGY ADJUNCT INSTRUCTOR 12/25/2019 Last Documented On 0 1:54PM ; [facility] Work Phone: [phone] 208-305911-10-2023 Progress note* Progress note Date Encounter Last Documented by 02/19/2023 Open Access - Established Last d ocumented on 02/19/2023; 12:18 PM, Srinivasa Ward CNP; [facility] Active Problems & Conditions - F41.9 - Anxiety Disorder Nos - Anxiety - J45.30 - Asthma Mild Persistent Uncomplicated - S03.00XA - Dislocation of jaw, unspecified side, initial encounter - TMJ (dislocation of temporomandibular joint) - G40.909 - Epilepsy Not Intractable Without Status Epilepticus - Epilepsy - K29.50 - Gastritis Chronic Without Hemorrhage - per colonoscopy on 03/19/2021 - Hemorrhoids - per colonoscopy 03/2021 - K57.30 - Intestinal Disorder Diverticulosis - per colonoscopy 03/2021 - F17.200 - Nicotine Dependence Continuous - F25.0 - Schizoaffective Disorder, Bipolar - SEE_NOTE - See Note: - Smoker within last 12 months - M19.90 - Unspecified osteoarthritis, unspecified site - Arthritis Chief Complaint The Chief Complaint is: Patient is having small blood in urine and cramping in uterine area. Having pain in right side abdominal pain. Referred Here Not referred by urgent care clinic and not the emergency room. No prior encounters. - Data to be reviewed: no clinical lab tests History of Present Illness Abrahan Woods is a 32 year old female. - Allergy list reviewed - Reviewed Medications - test - would not like a test Patient presents for concerns of vaginal spotting that has since resolved Patient had a yeast infection recently and then was on an antibiotic Patient is still waiting on a surgical appt for hernia repair States inhaler in working well and no longer uses her rescue inhaler, believes asthma is well controlled Current Medication - Amitriptyline HCl 50 MG Oral Tablet Take one tablet daily at bedtime, 30 days, 5 refills - Amoxicillin-Pot Clavulanate 875-125 MG Oral Tablet Take one tablet two times a day for 10 days, 10 days, 0 refills - Benzonatate 100 MG Oral Capsule take one capsule three times daily as needed for cough per suman morgan, 0 days, 0 refills - busPIRone HCl 15 MG Oral Tablet take one tablet three times daily, 30 days, 5 refills - Dicyclomine HCl 10 MG Oral Capsule, conventional take 1 capsule by mouth three times daily, 30 days, 1 refills - Diflucan 150 MG Oral Tablet Take one tablet as need for yeast infection with antibiotic, 1 days, 0 refills - Fluticasone Propionate 50 MCG/ACT Nasal Suspension inhale 1 spray into each nostril 2 times per day., 30 days, 5 refills - Ibuprofen 800 MG Oral Tablet 14 days, 0 refills - Imitrex 25 MG Oral Tablet Take one tablet as needed for migraines may repeat x1 dose after 4 hours, 30 days, 1 refills - Omeprazole 40 MG Oral Capsule, delayed-release Capsule Delayed Release one capsule twice daily per Mirza Amanda, 0 days, 0 refills - Ondansetron 4 MG Oral Tablet Disintegrating dissolve one tablet every 6 hours as needed for nausea and vomiting per suman morgan, 0 days, 0 refills - Pantoprazole Sodium 40 MG Oral Tablet Delayed Release one tablet twice daily per Mirza Amanda, 0 days, 0 refills - Prazosin HCl 1 MG Oral Capsule take one capsule by mouth at bedtime for ptsd nightmares, 30 days, 5 refills - Symbicort 160-4.5 MCG/ACT Inhalation Aerosol Inhale 2 puffs two times a day ( rinse mouth after use), 30 days, 2 refills - Ventolin HFA 108 (90 Base) MCG/ACT Inhalation Aerosol Solution inhale 2 puffs by mouth into lungs every 4 hours as needed for shortness of breath, 30 days, 5 refills - ZyrTEC Allergy 10 MG Oral Tablet Take one tablet daily ( do not take with loratadine), 30 days, 5 refills Past Medical/Surgical History Reported: Medical: No previous hospitalizations. : Not planning to have a baby in the next 12 months. Diagnoses: Asthma. Ovarian cyst. Keratitis follicularis (Darier's disease). Epilepsy. Schizophrenia Bipolar disorder NOS Depression. Post-traumatic stress disorder. Anxiety disorder NOS Procedural: - Complete colonoscopy Surgical: - Tonsillectomy - Tonsillectomy with adenoidectomy - General surgery ablation EGD Colonoscopy gallbladder - Hernia repair - Hysterectomy 10/29/2022 - Tubal ligation Social History Environmental Exposure: Secondhand cigarette smoke exposure. Tobacco use: Cigarette smoking Heavy (20-39/day). Not using electronic cigarettes/vaping. Alcohol: Not using alcohol. Drug Use: Using marijuana. Sexual: Denied sexual activity, sexual orientation Straight (not lesbian or munoz), and gender identity Female. Allergies - Tracy - Egg - Fish - Latex - Morphine Derivatives Reaction: Nausea - NO KNOWN DRUG ALLERGIES - -No Known Food Allergies Family History Father 2010 Mother is alive Maternal: Cardiovascular disorder Asthma Oncologic disorder Overain Review Of Systems Head: No head symptoms and no sinus pain. Otolaryngeal: Nose and sinus finding. Cardiovascular: No cardiovascular symptoms. Pulmonary: No pulmonary symptoms. Gastrointestinal: No gastrointestinal symptoms. Musculoskeletal: No musculoskeletal symptoms. Neurological: No neurological symptoms. Skin: No skin symptoms. Physical Findings - Vitals taken 02/19/2023 10:15 am BP-Sitting L114/82 mmHg Pulse Rate-Opczvuy68 bpm Temp-Oral98.8 F Hiyxpr66 in Bstwsm441 lbs 9.6 oz Body Mass Index33.2 kg/m2 Body Surface Area1.7 m2 Oxygen Anpwapewek40 % Vital Signs: - Systolic blood pressure < 130 mmHg. - Diastolic Blood Pressure < 80 mmHg. - Diastolic blood pressure 80-89 mmHg. General Appearance: - Awake. - Alert. Lungs: - Normal. - Respiration rhythm and depth was normal. Abdomen: Visual Inspection: - Abdomen was normal on visual inspection, slightly distended in RUQ. Musculoskeletal System: General/bilateral: - Normal movement of all extremities. Skin: - General appearance was normal. Tests Urinalysis Was Performed: Routine urinalysis without microscopic examination. Protein Trace, Glucose Negative, Bilirubin Negative, Urobilinogen 0.2, Nitrite Negative, Ketones 0 Negative, Leukocyte Estrase Negative, and Blood Negative. Specific [place] 1.020 and pH 7.5. Urine clarity Clear and color Yellow. Laboratory-based Chemistry: Other Laboratory Tests: Screening for sexually transmitted infections was not performed. Educational Testing: In the Past 4 Weeks, Asthma kept me from getting much done at work/school/work? (3 Pts) Some of the Time, During the past 4 weeks, how often have you had shortness of breath? (5 Pts) Not at all, During the past for 4 weeks, asthma symptoms woke me up at night or earlier than (3 Pts) Once a week, During the past 4 weeks, have used rescue inhaler or nebulizer medication (5 Pts) Not at all, and Asthma control during the past 4 weeks (5 Pts) Completely Controlled. Assessment - Body mass index [Body mass index [BMI] 33.0-33.9, adult] Test Conclusions Asthma Control Test (ACT), adult total score was 21.0 02/19/2023. Therapy - Patient refused flu vaccine. Discussed benefits of flu vaccine with Patient. Vaccinations - Did not receive dose of Reported: Patient has not received the Covid Vaccine Counseling/Education - Does not want to stop using current contraception - Wishing to stop smoking Discussed Quit Line resources - Discussed nutritional needs teach healthy choices including fruits and vegetables - Patient education about a proper diet - Not requesting contraception - Discussed concerns about exercise: promote physical activity Will do vaginal swab to check for yeast infection Encouraged to follow up with OBGYN Number given to surgeon that GI referred her to, call number and schedule appt Follow up at next scheduled appt Plan StartCited- Acute vaginitis Outside Labs/Microbiology: BD Affirm EndCited Notes - Patient is not interested in the COVID-19 vaccination at this time. Advance Directives - Living Will - Declined to Provide Advance Directive User Defined 1 DONG-2 score was 0 02/19/2023, DONG-7 score [DONG-7] Feeling nervous, anxious or on edge? + 0 pt : Not at all, [DNOG-7] Not being able to stop or control worrying? + 0 pt : Not at all, Patient Health Questionnaire 9-Item total score was four 02/19/2023, [PHQ-9-1] Little interest or pleasure in doing things? + 0 pt : Not at all, [PHQ-9-2] Feeling down, depressed, or hopeless? + 3 pt : Nearly every day, [PHQ-9-3] Trouble falling or staying asleep or sleeping too much? + 0 pt : Not at all, [PHQ-9-4] Feeling tired or having little energy? + 0 pt : Not at all, [PHQ-9-5] Poor appetite or overeating? + 0 pt : Not at all, [PHQ-9-6] Feeling bad about yourself-or that you are a failure + 1 pt : Several days, [PHQ-9-7] Trouble concentrating on things such as reading the newspaper + 0 pt : Not at all, [PHQ-9-8] Moving or speaking so slowly that other people have noticed. + 0 pt : Not at all, and [PHQ-9-9] Thoughts that you would be better off or hurting yourself? + 0 pt : Not at all. [facility]11-10-2023 Progress note* Progress note Date Encounter Last Documented by 02/19/2023 [facility] Patient Last docu mented on 02/20/2023; 4:27 PM, Lea NATHAN; [facility] Active Problems & Conditions - F41.9 - Anxiety Disorder Nos - Anxiety - J45.30 - Asthma Mild Persistent Uncomplicated - S03.00XA - Dislocation of jaw, unspecified side, initial encounter - TMJ (dislocation of temporomandibular joint) - G40.909 - Epilepsy Not Intractable Without Status Epilepticus - Epilepsy - K29.50 - Gastritis Chronic Without Hemorrhage - per colonoscopy on 03/19/2021 - Hemorrhoids - per colonoscopy 03/2021 - K57.30 - Intestinal Disorder Diverticulosis - per colonoscopy 03/2021 - F17.200 - Nicotine Dependence Continuous - F25.0 - Schizoaffective Disorder, Bipolar - SEE_NOTE - See Note: - Smoker within last 12 months - M19.90 - Unspecified osteoarthritis, unspecified site - Arthritis Chief Complaint The Chief Complaint is: Follow up on mood and medications. History of Present Illness Abrahan Woods is a 32 year old female. - Bipolar Behaviors improving with medications. - Normal appetite - Irritability - Anxiety - Depression due to her living situation and financial stressors. - Sleep disturbances due to her GI issues - Loss of interest in activities - Energy level is good - Racing thoughts - Social isolation - - Progress: PHQ is 4 Subjective [facility] met with patient to discuss mood, medications, and stressors today. Patient reports she is taking her mood and sleep medications as directed with benefit. Patient does not want to make any changes regarding her mood medication. Patient reports she is experiencing a lot of GI symptoms lately and feels she is getting the run around every time she calls her GI office to discuss her concerns. Patient reports she currently is living with her sister and 2 other adults along with a total of 12 children which is causing patient to feel overwhelmed and stressed out. Patient is not able to work still due to her physical health complications. Patient feels bad that she is unable to provide her full share because of not working. Patient is willing to accept community resources from health assistant track coach today. Patient denies any other concerns today and denies any harmful thoughts. . Current Medication - Amitriptyline HCl 50 MG Oral Tablet Take one tablet daily at bedtime, 30 days, 5 refills - Amoxicillin-Pot Clavulanate 875-125 MG Oral Tablet Take one tablet two times a day for 10 days, 10 days, 0 refills - Benzonatate 100 MG Oral Capsule take one capsule three times daily as needed for cough per suman morgan, 0 days, 0 refills - busPIRone HCl 15 MG Oral Tablet take one tablet three times daily, 30 days, 5 refills - Dicyclomine HCl 10 MG Oral Capsule, conventional take 1 capsule by mouth three times daily, 30 days, 1 refills - Diflucan 150 MG Oral Tablet Take one tablet as need for yeast infection with antibiotic, 1 days, 0 refills - Fluticasone Propionate 50 MCG/ACT Nasal Suspension inhale 1 spray into each nostril 2 times per day., 30 days, 5 refills - Ibuprofen 800 MG Oral Tablet 14 days, 0 refills - Imitrex 25 MG Oral Tablet Take one tablet as needed for migraines may repeat x1 dose after 4 hours, 30 days, 1 refills - Omeprazole 40 MG Oral Capsule, delayed-release Capsule Delayed Release one capsule twice daily per Mirza Amanda, 0 days, 0 refills - Ondansetron 4 MG Oral Tablet Disintegrating dissolve one tablet every 6 hours as needed for nausea and vomiting per suman morgan, 0 days, 0 refills - Pantoprazole Sodium 40 MG Oral Tablet Delayed Release one tablet twice daily per Mirza Amanda, 0 days, 0 refills - Prazosin HCl 1 MG Oral Capsule take one capsule by mouth at bedtime for ptsd nightmares, 30 days, 5 refills - Symbicort 160-4.5 MCG/ACT Inhalation Aerosol Inhale 2 puffs two times a day ( rinse mouth after use), 30 days, 2 refills - Ventolin HFA 108 (90 Base) MCG/ACT Inhalation Aerosol Solution inhale 2 puffs by mouth into lungs every 4 hours as needed for shortness of breath, 30 days, 5 refills - ZyrTEC Allergy 10 MG Oral Tablet Take one tablet daily ( do not take with loratadine), 30 days, 5 refills Past Medical/Surgical History Other: No previous suicide attempt Reported: No Safety Measures. Medical: No previous hospitalizations. : Not planning to have a baby in the next 12 months. Diagnoses: Asthma. Ovarian cyst. Keratitis follicularis (Darier's disease). Epilepsy. Schizophrenia Bipolar disorder NOS Depression. Post-traumatic stress disorder. Anxiety disorder NOS Procedural: - Complete colonoscopy Surgical: - Tonsillectomy - Tonsillectomy with adenoidectomy - General surgery ablation EGD Colonoscopy gallbladder - Hernia repair - Hysterectomy 10/29/2022 - Tubal ligation Social History Environmental Exposure: Secondhand cigarette smoke exposure. Personal: Family disruption and has financial stress. Tobacco use: Cigarette smoking Light (1-10/day). Not using electronic cigarettes/vaping. Alcohol: Not using alcohol. Drug Use: Using marijuana. Housing And Economic Circumstances: Lives with a roommate and housing stress. Work: Unemployed. Sexual: Not sexually active. Sexual orientation Straight (not lesbian or munoz) and gender identity Female. Allergies - Tracy - Egg - Fish - Latex - Morphine Derivatives Reaction: Nausea - NO KNOWN DRUG ALLERGIES - -No Known Food Allergies Family History Father 2009 Mother is alive Maternal: Cardiovascular disorder Asthma Oncologic disorder Overain Physical Findings General Appearance: - Patient appeared uncomfortable. Neurological: - Cognitive Functions was Normal. - Estimated intelligence was normal. - Oriented to time, place, and person. - No hallucinations. - Judgement was not impaired. Speech: - Is Normal. Psychiatric: - Mood was anxious. - Mood was concerned. - Attitude Open. Demonstrated Behavior: - Eye Contact Appropriate. Affect: - Congruent with the mood. Thought Processes: - Not impaired. Thought Content: - Revealed no impairment. - Insight was intact. - No delusions. - No suicidal ideation. - No Passive thoughts of . - No suicidal plans. - No suicidal intent. - No homicidal ideations. - No homicidal plans. - No homicidal intent. Past Medical: - No repetitive self injurious behavior. - No access to weapons / guns in home. Assessment - F17.200 - Nicotine dependence, unspecified, uncomplicated - F25.0 - Schizoaffective disorder, bipolar type - F41.9 - Anxiety disorder, unspecified Therapy - Brief solution-focused therapy. - Adherent with medications. - Plan - do not modify medication . Collaborated with patient and provider: Counseling/Education - Wishing to stop smoking Discussed Quit Line resources [facility] offered active and supportive listening, normalized emotions and feelings, and processed current stressors. P empathized with patient regarding her current stressors and encouraged patient to continue to advocate for herself. Patient was receptive. Plan - External referral/Resources provided: Financial and food resources. Continue to take medication(s) as prescribed. [facility] to follow-up with patient at next visit as scheduled. . Advance Directives - Living Will - Declined to Provide Advance Directive Health Reminders - Assess Tobacco Use satisfied 02/19/2023. - Smoking & Tobacco Cessation Intervention and Counseling satisfied 02/19/2023. [facility]11-10-2023 Progress note* Progress note Date Encounter Last Documented by 02/19/2023 Open Access - Established Last d ocumented on 02/21/2023; 9:22 PM, Srinivasa Ward CNP; [facility] Active Problems & Conditions - F41.9 - Anxiety Disorder Nos - Anxiety - J45.30 - Asthma Mild Persistent Uncomplicated - S03.00XA - Dislocation of jaw, unspecified side, initial encounter - TMJ (dislocation of temporomandibular joint) - G40.909 - Epilepsy Not Intractable Without Status Epilepticus - Epilepsy - K29.50 - Gastritis Chronic Without Hemorrhage - per colonoscopy on 03/19/2021 - Hemorrhoids - per colonoscopy 03/2021 - K57.30 - Intestinal Disorder Diverticulosis - per colonoscopy 03/2021 - F17.200 - Nicotine Dependence Continuous - F25.0 - Schizoaffective Disorder, Bipolar - SEE_NOTE - See Note: - Smoker within last 12 months - M19.90 - Unspecified osteoarthritis, unspecified site - Arthritis Chief Complaint The Chief Complaint is: Patient is having small blood in urine and cramping in uterine area. Having pain in right side abdominal pain. Referred Here Not referred by urgent care clinic and not the emergency room. No prior encounters. - Data to be reviewed: no clinical lab tests History of Present Illness Abrahan Woods is a 32 year old female. - Allergy list reviewed - Reviewed Medications - test - would not like a test Patient presents for concerns of vaginal spotting that has since resolved Patient had a yeast infection recently and then was on an antibiotic Patient is still waiting on a surgical appt for hernia repair States inhaler in working well and no longer uses her rescue inhaler, believes asthma is well controlled Current Medication - Amitriptyline HCl 50 MG Oral Tablet Take one tablet daily at bedtime, 30 days, 5 refills - Amoxicillin-Pot Clavulanate 875-125 MG Oral Tablet Take one tablet two times a day for 10 days, 10 days, 0 refills - Benzonatate 100 MG Oral Capsule take one capsule three times daily as needed for cough per suman morgan, 0 days, 0 refills - busPIRone HCl 15 MG Oral Tablet take one tablet three times daily, 30 days, 5 refills - Dicyclomine HCl 10 MG Oral Capsule, conventional take 1 capsule by mouth three times daily, 30 days, 1 refills - Diflucan 150 MG Oral Tablet Take one tablet as need for yeast infection with antibiotic, 1 days, 0 refills - Fluticasone Propionate 50 MCG/ACT Nasal Suspension inhale 1 spray into each nostril 2 times per day., 30 days, 5 refills - Ibuprofen 800 MG Oral Tablet 14 days, 0 refills - Imitrex 25 MG Oral Tablet Take one tablet as needed for migraines may repeat x1 dose after 4 hours, 30 days, 1 refills - Omeprazole 40 MG Oral Capsule, delayed-release Capsule Delayed Release one capsule twice daily per Mirza Amanda, 0 days, 0 refills - Ondansetron 4 MG Oral Tablet Disintegrating dissolve one tablet every 6 hours as needed for nausea and vomiting per suman morgan, 0 days, 0 refills - Pantoprazole Sodium 40 MG Oral Tablet Delayed Release one tablet twice daily per Mirza Amanda, 0 days, 0 refills - Prazosin HCl 1 MG Oral Capsule take one capsule by mouth at bedtime for ptsd nightmares, 30 days, 5 refills - Symbicort 160-4.5 MCG/ACT Inhalation Aerosol Inhale 2 puffs two times a day ( rinse mouth after use), 30 days, 2 refills - Ventolin HFA 108 (90 Base) MCG/ACT Inhalation Aerosol Solution inhale 2 puffs by mouth into lungs every 4 hours as needed for shortness of breath, 30 days, 5 refills - ZyrTEC Allergy 10 MG Oral Tablet Take one tablet daily ( do not take with loratadine), 30 days, 5 refills Past Medical/Surgical History Reported: Medical: No previous hospitalizations. : Not planning to have a baby in the next 12 months. Diagnoses: Asthma. Ovarian cyst. Keratitis follicularis (Darier's disease). Epilepsy. Schizophrenia Bipolar disorder NOS Depression. Post-traumatic stress disorder. Anxiety disorder NOS Procedural: - Complete colonoscopy Surgical: - Tonsillectomy - Tonsillectomy with adenoidectomy - General surgery ablation EGD Colonoscopy gallbladder - Hernia repair - Hysterectomy 10/29/2022 - Tubal ligation Social History Environmental Exposure: Secondhand cigarette smoke exposure. Tobacco use: Cigarette smoking Heavy (20-39/day). Not using electronic cigarettes/vaping. Alcohol: Not using alcohol. Drug Use: Using marijuana. Sexual: Denied sexual activity, sexual orientation Straight (not lesbian or munoz), and gender identity Female. Allergies - Tracy - Egg - Fish - Latex - Morphine Derivatives Reaction: Nausea - NO KNOWN DRUG ALLERGIES - -No Known Food Allergies Family History Father 2010 Mother is alive Maternal: Cardiovascular disorder Asthma Oncologic disorder Overain Review Of Systems Head: No head symptoms and no sinus pain. Otolaryngeal: Nose and sinus finding. Cardiovascular: No cardiovascular symptoms. Pulmonary: No pulmonary symptoms. Gastrointestinal: No gastrointestinal symptoms. Musculoskeletal: No musculoskeletal symptoms. Neurological: No neurological symptoms. Skin: No skin symptoms. Physical Findings - Vitals taken 02/19/2023 10:15 am BP-Sitting L114/82 mmHg Pulse Rate-Efhydsv15 bpm Temp-Oral98.8 F Luhpsf82 in Xbxnax617 lbs 9.6 oz Body Mass Index33.2 kg/m2 Body Surface Area1.7 m2 Oxygen Xrhwmtxzqw55 % Vital Signs: - Systolic blood pressure < 130 mmHg. - Diastolic Blood Pressure < 80 mmHg. - Diastolic blood pressure 80-89 mmHg. General Appearance: - Awake. - Alert. Lungs: - Normal. - Respiration rhythm and depth was normal. Abdomen: Visual Inspection: - Abdomen was normal on visual inspection, slightly distended in RUQ. Musculoskeletal System: General/bilateral: - Normal movement of all extremities. Skin: - General appearance was normal. Tests Urinalysis Was Performed: Routine urinalysis without microscopic examination. Protein Trace, Glucose Negative, Bilirubin Negative, Urobilinogen 0.2, Nitrite Negative, Ketones 0 Negative, Leukocyte Estrase Negative, and Blood Negative. Specific [place] 1.020 and pH 7.5. Urine clarity Clear and color Yellow. Laboratory-based Chemistry: Other Laboratory Tests: Screening for sexually transmitted infections was not performed. Educational Testing: In the Past 4 Weeks, Asthma kept me from getting much done at work/school/work? (3 Pts) Some of the Time, During the past 4 weeks, how often have you had shortness of breath? (5 Pts) Not at all, During the past for 4 weeks, asthma symptoms woke me up at night or earlier than (3 Pts) Once a week, During the past 4 weeks, have used rescue inhaler or nebulizer medication (5 Pts) Not at all, and Asthma control during the past 4 weeks (5 Pts) Completely Controlled. Assessment - Body mass index [Body mass index [BMI] 33.0-33.9, adult] Test Conclusions Asthma Control Test (ACT), adult total score was 21.0 02/19/2023. Therapy - Patient refused flu vaccine. Discussed benefits of flu vaccine with Patient. Vaccinations - Did not receive dose of Reported: Patient has not received the Covid Vaccine Counseling/Education - Does not want to stop using current contraception - Wishing to stop smoking Discussed Quit Line resources - Discussed nutritional needs teach healthy choices including fruits and vegetables - Patient education about a proper diet - Not requesting contraception - Discussed concerns about exercise: promote physical activity Will do vaginal swab to check for yeast infection Encouraged to follow up with OBGYN Number given to surgeon that GI referred her to, call number and schedule appt Follow up at next scheduled appt Plan StartCited- Acute vaginitis Outside Labs/Microbiology: BD Affirm Diflucan 150 MG tablet Take one tablet every 72 hours x 2 doses, 2 days, 0 refills EndCited Notes - Patient is not interested in the COVID-19 vaccination at this time. Advance Directives - Living Will - Declined to Provide Advance Directive User Defined 1 DONG-2 score was 0 02/19/2023, DONG-7 score [DONG-7] Feeling nervous, anxious or on edge? + 0 pt : Not at all, [DONG-7] Not being able to stop or control worrying? + 0 pt : Not at all, Patient Health Questionnaire 9-Item total score was four 02/19/2023, [PHQ-9-1] Little interest or pleasure in doing things? + 0 pt : Not at all, [PHQ-9-2] Feeling down, depressed, or hopeless? + 3 pt : Nearly every day, [PHQ-9-3] Trouble falling or staying asleep or sleeping too much? + 0 pt : Not at all, [PHQ-9-4] Feeling tired or having little energy? + 0 pt : Not at all, [PHQ-9-5] Poor appetite or overeating? + 0 pt : Not at all, [PHQ-9-6] Feeling bad about yourself-or that you are a failure + 1 pt : Several days, [PHQ-9-7] Trouble concentrating on things such as reading the newspaper + 0 pt : Not at all, [PHQ-9-8] Moving or speaking so slowly that other people have noticed. + 0 pt : Not at all, and [PHQ-9-9] Thoughts that you would be better off or hurting yourself? + 0 pt : Not at all. [facility]11-10-2023 Reason for referral (narrative)* Date Encounter Description Provider Reason for Referral 02/19/23 Established Patient Lea Blane SIMPSON- S External referral/Resources provided - : Financial and food resources. ~ 11/25/21 Medical Established Patient Traci bruno CNP Referral To Mental Health Team 07/17/21 Medical Established Patient Traci bruno CNP Referral To Mental Health Team 06/03/20 Established Patient Farrah Jarrett [facility] Referral To Mental Health Team - [facility] conducted screen and discussed patient's responses w/her. [facility] Work Phone: [phone]) 178-446111-10-2023 Instructions Includes: Instructions for all patient encounters Instructions to patient Intervention and counseling on cessation of tobacco use, 3-10 minutes Last Documented On 0 1:15PM ; [facility] Education and Decision Aids were provided during visit for: Discussed nutritional needs teach healthy choices including fruits and vegetables Last Documented On 3 10:19AM ; [facility] Patient education about a pr oper diet Last Documented On 3 10:19AM ; [facility] Discussed concerns about exe rcise : promote physical activity ~ ~Will do vaginal swab to check for yeast infection ~ ~Encouraged to follow up with OBGYN ~ ~Number given to surgeon that GI referred her to, call number and schedule appt ~ ~Follow up at next scheduled appt Last Documented On 3 12:18PM ; [facility] Not requesting contraception Last Documented On 3 10:23AM ; [facility] Discussed nutritional needs teach healthy choices including fruits and vegetables Last Documented On 3 10:48AM ; [facility] Patient education about a pr oper diet Last Documented On 3 10:48AM ; [facility] Discussed concerns about exe rcise : promote physical activity ~ ~Will give augmentin to cover sinuses and urinary tract ~ ~Will send out urine ~ ~Will give steriod due to patients lung sounds ~ ~Will increase symbicort ~ ~Follow up in one month Last Documented On 3 3:48PM ; [facility] Not requesting contraception Last Documented On 3 10:50AM ; [facility] Discussed nutritional needs teach healthy choices including fruits and vegetables Last Documented On 3 11:01AM ; [facility] Patient education about a pr oper diet Last Documented On 3 11:01AM ; [facility] Discussed concerns about exe rcise : promote physical activity ~ ~Follow up after ER visit Last Documented On 3 8:31PM ; [facility] Not requesting contraception Last Documented On 3 11:03AM ; [facility] Discussed nutritional needs teach healthy choices including fruits and vegetables Last Documented On 3 12:03PM ; [facility] Patient education about a pr oper diet Last Documented On 3 12:03PM ; [facility] Discussed concerns about exe rcise : promote physical activity ~ ~Will keep medication the same Last Documented On 3 4:46AM ; [facility] Not requesting contraception Last Documented On 3 12:04PM ; [facility] Discussed nutritional needs teach healthy choices including fruits and vegetables Last Documented On 3 9:09AM ; [facility] Patient education about a pr oper diet Last Documented On 3 9:09AM ; [facility] Patient education about an a sthma action plan Last Documented On 3 9:44AM ; [facility] Discussed concerns about exe rcise : promote physical activity ~ ~Will restart symbicort ~ ~Follow up in one month for asthma Last Documented On 3 12:28PM ; [facility] Discussed nutritional needs teach healthy choices including fruits and vegetables Last Documented On 2 10:58AM ; [facility] Patient education about a pr oper diet Last Documented On 2 10:58AM ; [facility] Discussed concerns about exe rcise : promote physical activity Last Documented On 2 10:58AM ; [facility] Discussed nutritional needs teach healthy choices including fruits and vegetables Last Documented On 2 11:41AM ; [facility] Patient education about a pr oper diet Last Documented On 2 11:41AM ; [facility] Discussed concerns about exe rcise : promote physical activity Last Documented On 2 11:41AM ; [facility] offered active listening and supportive feedback; normalized emotions and feelings, also provided pt time to process any current stressors ~[facility] discussed benefits of counseling and supported pt in following through with scheduled appt. ~[facility] encouraged pt to continue to make time to implement self-care regimen to assist in improving their mood Last Documented On 2 2:29PM ; [facility] Provided supportive listenin g and reflective feedback; monitored mood, explored symptoms, assessed functioning. ~Discussed medication use/compliance. ~Promoted use of healthy coping mechanisms and positive support, as needed Last Documented On 2 1:25PM ; [facility] Discussed nutritional needs teach healthy choices including fruits and vegetables Last Documented On 2 12:54PM ; [facility] Patient education about a pr oper diet Last Documented On 2 12:54PM ; [facility] Discussed concerns about exe rcise : promote physical activity Last Documented On 2 12:54PM ; [facility] Discussed nutritional needs teach healthy choices including fruits and vegetables Last Documented On 2 11:39AM ; [facility] Patient education about a pr oper diet Last Documented On 2 11:39AM ; [facility] Discussed concerns about exe rcise : promote physical activity Last Documented On 2 11:39AM ; [facility] Discussed nutritional needs teach healthy choices including fruits and vegetables Last Documented On 2 10:29AM ; [facility] Patient education about a pr oper diet Last Documented On 2 10:29AM ; [facility] Discussed concerns about exe rcise : promote physical activity Last Documented On 2 10:29AM ; [facility] Discussed current self-care methods/coping skills. ~Validated and normalized patient's feelings while assisting process recent events. ~Discussed ongoing counseling. ~Discussed lifestyle changes to address chronic illness. ~Supported patient's personal health goals Last Documented On 2 8:50PM ; [facility] Discussed nutritional needs teach healthy choices including fruits and vegetables Last Documented On 2 11:15AM ; [facility] Patient education about a pr oper diet Last Documented On 2 11:15AM ; [facility] Discussed concerns about exe rcise : promote physical activity Last Documented On 2 11:15AM ; [facility] Discussed current self-care methods/coping skills. ~Validated and normalized patient's feelings while assisting process recent events. ~Discussed ongoing mental health services. ~Discussed lifestyle changes to address chronic illness. ~Supported patient's personal health goals. ~ ~Reports feeling better since beginning new meds. Also voices and visual hallucinations have stopped; reports voices were not commanfing Last Documented On 2 8:54PM ; [facility] offered active and suppo rtive listening and normalized emotions and feelings. ~[facility] discussed with patient and significant other in the room with her crisis resources. Patient is agreeable to contacting one of the crisis resources should moods worsen or call 911 or go to the Emergency Room. Patient reports that she can also speak with significant others Mom or go to her kids fathers house. ~[facility] and PCP discussed plan to follow-up with psychiatry and counseling and a new referral being sent to [facility]. If patient is not accepted back as a patient with Dr. Dickerson, will look into other resources Last Documented On 1 7:15PM ; [facility] Discussed nutritional needs teach healthy choices including fruits and vegetables Last Documented On 1 1:18PM ; [facility] Patient education about a pr oper diet Last Documented On 1 1:18PM ; [facility] Discussed concerns about exe rcise : promote physical activity Last Documented On 1:18PM ; [facility] Discussed nutritional needs teach healthy choices including fruits and vegetables Last Documented On 1 10:37AM ; [facility] Patient education about a pr oper diet Last Documented On 1 10:37AM ; [facility] Discussed concerns about exe rcise : promote physical activity Last Documented On 1 10:37AM ; [facility] Explored current symptoms an d stressors. Educaated patient re importance of counseling and provided brief review of EMDR treatment. ~Encouraged patient to engage in ongoing counseling. ~ Last Documented On 1 10:50PM ; [facility] Discussed nutritional needs teach healthy choices including fruits and vegetables Last Documented On 1 6:53PM ; [facility] Patient education about a pr oper diet Last Documented On 1 6:53PM ; [facility] Discussed concerns about exe rcise : promote physical activity Last Documented On 1 6:53PM ; [facility], support and helped patient process through current symptoms and stressors related to mood and irritability. ~[facility] discussed coping skills that patient has tried as well as discussed potential benefit of counseling. ~ ~ Last Documented On 0 11:49AM ; [facility] Discussed nutritional needs teach healthy choices including fruits and vegetables Last Documented On 0 1:15PM ; [facility] Patient education about a pr oper diet Last Documented On 0 1:15PM ; [facility] Patient education about a pr oper diet Last Documented On 0 1:33PM ; [facility] Patient education about meal planning Last Documented On 0 1:33PM ; [facility] Education about changing eat ing habits Last Documented On 0 1:33PM ; [facility] Patient education about high fiber diet Last Documented On 0 1:33PM ; [facility] Patient education about low fat diet Last Documented On 0 1:33PM ; [facility] Patient education about low cholesterol diet Last Documented On 0 1:33PM ; [facility] Patient education about low carbohydrate diet Last Documented On 0 1:33PM ; [facility] Patient education about high protein diet Last Documented On 0 1:33PM ; [facility] Discussed concerns about exe rcise : promote physical activity Last Documented On 0 1:15PM ; [facility] provided active listenin g, support and helped patient process through current symptoms and stressors due to pain, loss of work and low frustration tolerance. ~[facility] discussed coping skills and supports that patient can implement inclduing meditation, mindfulness, and deep breathing activities. [facility] provided resources to patient to work on implementing. ~[facility] discussed with patient re-establishing care for therapy and provided patient with resource list. ~ Last Documented On 0 6:15PM ; [facility] Discussed nutritional needs teach healthy choices including fruits and vegetables Last Documented On 0 1:12PM ; [facility] Patient education about a pr oper diet Last Documented On 0 1:12PM ; [facility] Patient education about a pr oper diet Last Documented On 0 1:46PM ; [facility] Patient education about meal planning Last Documented On 0 1:46PM ; [facility] Education about changing eat ing habits Last Documented On 0 1:46PM ; [facility] Patient education about high fiber diet Last Documented On 0 1:46PM ; [facility] Patient education about low fat diet Last Documented On 0 1:46PM ; [facility] Patient education about low cholesterol diet Last Documented On 0 1:46PM ; [facility] Patient education about low carbohydrate diet Last Documented On 0 1:46PM ; [facility] Patient education about high protein diet Last Documented On 0 1:46PM ; [facility] Discussed concerns about exe rcise : promote physical activity Last Documented On 0 1:12PM ; [facility] Work Phone: [phone]) 388-317510-27-2023 Evaluation note Includes: Assessments for all patient encounters Findings Encounter Date [Body mass index [BMI] 33.0- 33.9, adult] assessment of body mass index Medical Established Patient with Srinivasa Ed BIOLOGY ADJUNCT INSTRUCTOR 02/05/2023 Last Documented On 3 3:48PM ; [facility] Anxiety disorder NOS Medical Established Patient with Srinivasa Ed BIOLOGY ADJUNCT INSTRUCTOR 02/05/2023 Last Documented On 3 3:48PM ; [facility] Body mass index Medical Established Patient with Srinivasa Ed BIOLOGY ADJUNCT INSTRUCTOR 01/28/2023 Last Documented On 3 8:31PM ; [facility] [Body mass index [BMI] 32.0- 32.9, adult] assessment of body mass index Medical Established Patient with Srinivasa Ed BIOLOGY ADJUNCT INSTRUCTOR 12/31/2022 Last Documented On 3 5:25AM ; [facility] Uncomplicated mild persistent asthma Med ical Established Patient with Srinivasa Ed BIOLOGY ADJUNCT INSTRUCTOR 12/31/2022 Last Documented On 3 5:25AM ; [facility] [Body mass index [BMI] 33.0- 33.9, adult] assessment of body mass index Medical Established Patient with Srinivasa Ed BIOLOGY ADJUNCT INSTRUCTOR 11/30/2022 Last Documented On 3 12:28PM ; [facility] Anxiety disorder NOS Medical Established Patient with Srinivasa Ed BIOLOGY ADJUNCT INSTRUCTOR 11/30/2022 Last Documented On 3 12:28PM ; [facility] Diabetes Risk Test Score was four score 11/30/2022 Medical Established Patient with Srinivasa Ward BIOLOGY ADJUNCT INSTRUCTOR 11/30/2022 Last Documented On 3 12:28PM ; [facility] Uncomplicated mild persistent asthma Med ical Established Patient with Srinivasa Ward BIOLOGY ADJUNCT INSTRUCTOR 11/30/2022 Last Documented On 3 12:28PM ; [facility] Visit for: routine adult H&P with abnormal findings Medical Established Patient with Srinivasa Ward BIOLOGY ADJUNCT INSTRUCTOR 11/30/2022 Last Documented On 3 12:28PM ; [facility] [Body mass index [BMI] 30.0- 30.9, adult] assessment of body mass index Medical Established Patient with Srinivasa Ward BIOLOGY ADJUNCT INSTRUCTOR 01/22/2022 Last Documented On 2 6:17PM ; [facility] Dysuria Medical Established Patient with Srinivasa Ward BIOLOGY ADJUNCT INSTRUCTOR 01/22/2022 Last Documented On 2 6:17PM ; [facility] Bipolar schizoaffective disorder BH Esta blished Patient with Inatameka Díaz LPCC-S 12/11/2021 Last Documented On 2 2:31PM ; [facility] Assessment of body mass inde x [Body mass index [BMI] 26.0-26.9, adult] Medical Established Patient with Srinivasa Ward BIOLOGY ADJUNCT INSTRUCTOR 12/11/2021 Last Documented On 2 12:34PM ; [facility] Bipolar schizoaffective disorder BH Esta blished Patient with Inatameka WatkinsDíaz LPCC-S 11/25/2021 Last Documented On 2 1:25PM ; [facility] Anxiety disorder NOS Medical Established Patient with Traci Dennison BIOLOGY ADJUNCT INSTRUCTOR 11/25/2021 Last Documented On 2 3:06PM ; [facility] Urinary tract infection Medical Establis hed Patient with Traci Dennison BIOLOGY ADJUNCT INSTRUCTOR 11/25/2021 Last Documented On 2 3:06PM ; [facility] Z68.27 - Body mass index [BM I] 27.0-27.9, adult Medical Established Patient with Traci Dennison BIOLOGY ADJUNCT INSTRUCTOR 11/25/2021 Last Documented On 2 3:06PM ; [facility] Anxiety disorder NOS Medical Established Patient with Traci Juma BIOLOGY ADJUNCT INSTRUCTOR 08/13/2021 Last Documented On 2 8:18AM ; [facility] Assessment of body mass index Medical Es tablished Patient with Traci Juma BIOLOGY ADJUNCT INSTRUCTOR 08/13/2021 Last Documented On 2 8:18AM ; [facility] Chronic gastritis without hemorrhage Med ical Established Patient with Traci Juma BIOLOGY ADJUNCT INSTRUCTOR 08/13/2021 Last Documented On 2 8:18AM ; [facility] Diverticulosis of intestine Medical Esta blished Patient with Traci Juma BIOLOGY ADJUNCT INSTRUCTOR 08/13/2021 Last Documented On 2 8:18AM ; [facility] Urinary tract infection Medical Establis hed Patient with Traci Juma BIOLOGY ADJUNCT INSTRUCTOR 08/13/2021 Last Documented On 2 8:18AM ; [facility] Anxiety disorder NOS Medical Established Patient with Traci Juma BIOLOGY ADJUNCT INSTRUCTOR 07/17/2021 Last Documented On 2 8:10AM ; [facility] Other hypothyroidism Medical Established Patient with Traci Juma BIOLOGY ADJUNCT INSTRUCTOR 07/17/2021 Last Documented On 2 8:10AM ; [facility] Upper respiratory infection Medical Esta blished Patient with Tracialyx Dennison BIOLOGY ADJUNCT INSTRUCTOR 07/17/2021 Last Documented On 2 8:10AM ; [facility] Visit for: routine adult H&P with abnormal findings Medical Established Patient with Traci Dennison BIOLOGY ADJUNCT INSTRUCTOR 07/17/2021 Last Documented On 2 8:10AM ; [facility] Visit for: screening for lip oid disorders Medical Established Patient with Traci Juma BIOLOGY ADJUNCT INSTRUCTOR 07/17/2021 Last Documented On 2 8:10AM ; [facility] Vitamin B12 deficiency Medical Establish ed Patient with Traci Juma BIOLOGY ADJUNCT INSTRUCTOR 07/17/2021 Last Documented On 2 8:10AM ; [facility] Vitamin D deficiency Medical Established Patient with Traci Juma BIOLOGY ADJUNCT INSTRUCTOR 07/17/2021 Last Documented On 2 8:10AM ; [facility] Z68.28 - Body mass index [BM I] 28.0-28.9, adult Medical Established Patient with Traci Dennison BIOLOGY ADJUNCT INSTRUCTOR 07/17/2021 Last Documented On 2 8:10AM ; [facility] Allergic rhinitis Telemedicine Establi sted Patient with Traci Dennison BIOLOGY ADJUNCT INSTRUCTOR 07/16/2021 Last Documented On 2 8:23AM ; [facility] Exposure to COVID-19 Telemedicine Establ isted Patient with Traci Dennison BIOLOGY ADJUNCT INSTRUCTOR 04/29/2021 Last Documented On 2 8:02PM ; [facility] Bipolar schizoaffective disorder Esta blished Patient with Farrah Jarrett LPCC-S 04/15/2021 Last Documented On 2 1:07PM ; [facility] Anxiety disorder NOS Medical Established Patient with Traci Dennison BIOLOGY ADJUNCT INSTRUCTOR 04/15/2021 Last Documented On 2 9:06AM ; [facility] Assessment of body mass index Medical Es tablished Patient with Traci Dennison BIOLOGY ADJUNCT INSTRUCTOR 04/15/2021 Last Documented On 2 9:06AM ; [facility] Bipolar disorder NOS Medical Established Patient with Traci Dennison BIOLOGY ADJUNCT INSTRUCTOR 04/15/2021 Last Documented On 2 9:06AM ; [facility] Anxiety disorder NOS Telebehavioral H ealth with Farrah Jarrett LPCC-S 04/09/2021 Last Documented On 2 9:05AM ; [facility] Bipolar disorder NOS Telebehavioral H ealth with Farrah Jarrett LPCC-S 04/09/2021 Last Documented On 2 9:05AM ; [facility] Anxiety disorder NOS Established Patient with Hannah Short LISWS 04/03/2021 Last Documented On 1 7:15PM ; [facility] Bipolar I disorder, most rec ent episode, depressed Established Patient with Hannah Short LISWS 04/03/2021 Last Documented On 1 7:15PM ; [facility] Nicotine dependence Established Patient with Hannah Short LISWS 04/03/2021 Last Documented On 1 7:15PM ; [facility] Nicotine dependence Established Patient with Hannah Short LISWS 04/03/2021 Last Documented On 1 7:15PM ; [facility] Undifferentiated schizophren ia per patient reported history Established Patient with Hannah Short LISWS 04/03/2021 Last Documented On 1 7:15PM ; [facility] A home test was negative Medic al Established Patient with Traci Dennison BIOLOGY ADJUNCT INSTRUCTOR 04/03/2021 Last Documented On 1 8:11PM ; [facility] Assessment of body mass index Medical Es tablished Patient with Traci Dennison BIOLOGY ADJUNCT INSTRUCTOR 04/03/2021 Last Documented On 1 8:11PM ; [facility] Epilepsy, not intractable, w ithout status epilepticus Medical Established Patient with Traci Dennison BIOLOGY ADJUNCT INSTRUCTOR 04/03/2021 Last Documented On 1 8:11PM ; [facility] Mixed affective bipolar diso rder, moderate Medical Established Patient with Traci Dennison BIOLOGY ADJUNCT INSTRUCTOR 04/03/2021 Last Documented On 1 8:11PM ; [facility] Urinary tract infection Medical Establis hed Patient with Traci Dennison BIOLOGY ADJUNCT INSTRUCTOR 04/03/2021 Last Documented On 1 8:11PM ; [facility] Visit for: screening for STD Medical Est ablished Patient with Traci Dennison BIOLOGY ADJUNCT INSTRUCTOR 04/03/2021 Last Documented On 1 8:11PM ; [facility] Assessment of visit for: scr eening for human immunodeficiency virus Medical Established Patient with Peggy Thrasher BIOLOGY ADJUNCT INSTRUCTOR 02/14/2021 Last Documented On 1 1:16PM ; [facility] Diabetes Risk Test Score was three score 02/14/2021 Medical Established Patient with Peggy Thrasher BIOLOGY ADJUNCT INSTRUCTOR 02/14/2021 Last Documented On 1 1:16PM ; [facility] Diarrhea Medical Established Patient with Peggyisis Thrasher BIOLOGY ADJUNCT INSTRUCTOR 02/14/2021 Last Documented On 1 1:16PM ; [facility] Nicotine dependence Medical Established Patient with Peggyisis Thrasher BIOLOGY ADJUNCT INSTRUCTOR 02/14/2021 Last Documented On 1 1:16PM ; [facility] Z68.28 - Body mass index [BM I] 28.0-28.9, adult Medical Established Patient with Peggy Thrasher [facility] 02/14/2021 Last Documented On 1 1:16PM ; [facility] Cough Telemedicine Establisted Patient with Traci Dennison BIOLOGY ADJUNCT INSTRUCTOR 01/01/2021 Last Documented On 1 6:31PM ; [facility] Fever Telemedicine Establisted Patient with Traci Dennison BIOLOGY ADJUNCT INSTRUCTOR 01/01/2021 Last Documented On 1 6:31PM ; [facility] Z20.822 - Contact with and (suspected) exposure to COVID-19 Telemedicine Establisted Patient with Traci Dennison [facility] 01/01/2021 Last Documented On 1 6:31PM ; [facility] Bipolar I disorder, most rec ent episode, depressed Established Patient with Farrahmatthew Hernandezs LPCC-S 06/03/2020 Last Documented On 1 10:50PM ; [facility] Paranoid schizophrenia per p atient report Established Patient with Farrahmatthew Henrandezs LPCC-S 06/03/2020 Last Documented On 1 10:50PM ; [facility] Post-traumatic stress disord er per patient report Established Patient with Farrahmatthew Klinemons LPCC-S 06/03/2020 Last Documented On 1 10:50PM ; [facility] 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 Patient with Traci Dennison [facility] 06/03/2020 Last Documented On 1 8:25AM ; [facility] Overweight Medical Established Patient with Traci Dennison [facility] 06/03/2020 Last Documented On 1 8:25AM ; [facility] Z68.29 - Body mass index [BM I] 29.0-29.9, adult Medical Established Patient with Traci Dennison BIOLOGY ADJUNCT INSTRUCTOR 06/03/2020 Last Documented On 1 8:25AM ; [facility] Anxiety disorder NOS Medical Established Patient with Traci Dennison BIOLOGY ADJUNCT INSTRUCTOR 01/26/2020 Last Documented On 0 7:37PM ; [facility] Bipolar disorder NOS Medical Established Patient with Traci Dennison BIOLOGY ADJUNCT INSTRUCTOR 01/26/2020 Last Documented On 0 7:37PM ; [facility] Infection of tooth Medical Established Patient w ith Traci Dennison BIOLOGY ADJUNCT INSTRUCTOR 01/26/2020 Last Documented On 0 7:37PM ; [facility] Z68.20 - Body mass index [BM I] 20.0-20.9, adult Medical Established Patient with Traci Dennison BIOLOGY ADJUNCT INSTRUCTOR 01/26/2020 Last Documented On 0 7:37PM ; [facility] Bipolar I disorder, most rec ent episode, mixed Established Patient with Hannah Short LISWS 01/08/2020 Last Documented On 0 11:49AM ; [facility] Generalized anxiety disorder Establis hed Patient with Hannah Short LISWS 01/08/2020 Last Documented On 0 11:49AM ; [facility] Diabetes Risk Test Score was one score 01/08/2020 Medical Established Patient with Peggy Anna Marie BIOLOGY ADJUNCT INSTRUCTOR 01/08/2020 Last Documented On 0 1:42PM ; [facility] Overweight Medical Established Patient with Peggy Anna Marie BIOLOGY ADJUNCT INSTRUCTOR 01/08/2020 Last Documented On 0 1:42PM ; [facility] Z68.27 - Body mass index (BM I) 27.0-27.9, adult Medical Established Patient with Peggy Anna Marie BIOLOGY ADJUNCT INSTRUCTOR 01/08/2020 Last Documented On 0 1:42PM ; [facility] Bipolar I disorder, most rec ent episode, mixed Established Patient with Hannah Short LISWS 12/25/2019 Last Documented On 0 6:16PM ; [facility] Generalized anxiety disorder Establis hed Patient with Hannah Short LISWS 12/25/2019 Last Documented On 0 6:16PM ; [facility] Overweight Medical Established Patient with Peggy Anna Marie BIOLOGY ADJUNCT INSTRUCTOR 12/25/2019 Last Documented On 0 1:54PM ; [facility] Z68.26 - Body mass index (BM I) 26.0-26.9, adult Medical Established Patient with Peggy Anna Marie BIOLOGY ADJUNCT INSTRUCTOR 12/25/2019 Last Documented On 0 1:54PM ; [facility] Work Phone: [phone]) 945-685610-27-2023 Progress note* Progress note Date Encounter Last Documented by 02/05/2023 Medical Established Patient Last documented on 02/05/2023; 3:48 PM, Srinivasa Ward CNP; [facility] Active Problems & Conditions - F41.9 - Anxiety Disorder Nos - Anxiety - J45.30 - Asthma Mild Persistent Uncomplicated - S03.00XA - Dislocation of jaw, unspecified side, initial encounter - TMJ (dislocation of temporomandibular joint) - G40.909 - Epilepsy Not Intractable Without Status Epilepticus - Epilepsy - K29.50 - Gastritis Chronic Without Hemorrhage - per colonoscopy on 03/19/2021 - Hemorrhoids - per colonoscopy 03/2021 - K57.30 - Intestinal Disorder Diverticulosis - per colonoscopy 03/2021 - F25.0 - Schizoaffective Disorder, Bipolar - SEE_NOTE - See Note: - Smoker within last 12 months - M19.90 - Unspecified osteoarthritis, unspecified site - Arthritis Chief Complaint The Chief Complaint is: Mood/migraine f/u. Referred Here Not referred by urgent care clinic and not the emergency room. No prior encounters. - Data to be reviewed: no clinical lab tests History of Present Illness Abrahan Woods is a 32 year old female. - Allergy list reviewed - Reviewed Medications needs refills - Date of last menstruation 10/2022 hysterectomy - test - would not like a test Patient presents for follow up States that imitrex is helping with migraines Complains of painful urination and thinks she has an UTI States that asthma has been getting worse and she is more short of breath, coughing throughout the day and keeping herself up at night coughing Current Medication - Amitriptyline HCl 50 MG Oral Tablet Take one tablet daily at bedtime, 30 days, 5 refills - Benzonatate 100 MG Oral Capsule take one capsule three times daily as needed for cough per suman morgan, 0 days, 0 refills - busPIRone HCl 15 MG Oral Tablet take one tablet three times daily, 30 days, 5 refills - Dicyclomine HCl 10 MG Oral Capsule, conventional take 1 capsule by mouth three times daily, 30 days, 1 refills - Fluticasone Propionate 50 MCG/ACT Nasal Suspension inhale 1 spray into each nostril 2 times per day., 30 days, 5 refills - Ibuprofen 800 MG Oral Tablet 14 days, 0 refills - Imitrex 25 MG Oral Tablet Take one tablet as needed for migraines may repeat x1 dose after 4 hours, 30 days, 1 refills - Omeprazole 40 MG Oral Capsule, delayed-release Capsule Delayed Release one capsule twice daily per Mirza Amanda, 0 days, 0 refills - Ondansetron 4 MG Oral Tablet Disintegrating dissolve one tablet every 6 hours as needed for nausea and vomiting per suman morgan, 0 days, 0 refills - Pantoprazole Sodium 40 MG Oral Tablet Delayed Release one tablet twice daily per Mirza Amanda, 0 days, 0 refills - Prazosin HCl 1 MG Oral Capsule take one capsule by mouth at bedtime for ptsd nightmares, 30 days, 5 refills - Ventolin HFA 108 (90 Base) MCG/ACT Inhalation Aerosol Solution inhale 2 puffs by mouth into lungs every 4 hours as needed for shortness of breath, 30 days, 5 refills - ZyrTEC Allergy 10 MG Oral Tablet Take one tablet daily ( do not take with loratadine), 30 days, 5 refills Past Medical/Surgical History Reported: Medical: No previous hospitalizations. : Not planning to have a baby in the next 12 months. Diagnoses: Asthma. Ovarian cyst. Keratitis follicularis (Darier's disease). Epilepsy. Schizophrenia Bipolar disorder NOS Depression. Post-traumatic stress disorder. Anxiety disorder NOS Procedural: - Complete colonoscopy Surgical: - Tonsillectomy - Tonsillectomy with adenoidectomy - General surgery ablation EGD Colonoscopy gallbladder - Hernia repair - Hysterectomy 10/29/2022 - Tubal ligation Social History Environmental Exposure: Secondhand cigarette smoke exposure. Tobacco use: Cigarette smoking Light (1-10/day). Not using electronic cigarettes/vaping. Alcohol: Not using alcohol. Drug Use: Using marijuana. Sexual: Sexual orientation Straight (not lesbian or munoz) and gender identity Female. Allergies - Tracy - Egg - Fish - Latex - Morphine Derivatives Reaction: Nausea - NO KNOWN DRUG ALLERGIES - -No Known Food Allergies Family History Father 2009 Mother is alive Maternal: Cardiovascular disorder Asthma Oncologic disorder Overain Review Of Systems Head: Sinus pain and sinus pressure. Otolaryngeal: Nose and sinus finding. Cardiovascular: No cardiovascular symptoms. Pulmonary: Pulmonary symptoms. Gastrointestinal: No gastrointestinal symptoms. Musculoskeletal: No musculoskeletal symptoms. Neurological: No neurological symptoms. Skin: No skin symptoms. Physical Findings - Vitals taken 02/05/2023 10:44 am BP-Sitting L106/71 mmHg Pulse Rate-Rjwrdkw04 bpm Temp-Oral98.1 F Whmvqr39 in Flosbe826 lbs Body Mass Index33.1 kg/m2 Body Surface Area1.7 m2 Oxygen Piwxtlsleo41 % Vital Signs: - Systolic blood pressure < 130 mmHg. - Diastolic Blood Pressure < 80 mmHg. General Appearance: - Not awake. - Not alert. Ears: General/bilateral: Tympanic Membrane: - Examined small piece of cerumen against left tympanic membrane. - Erythematous. Right Ear: - Examined. Left Ear: - Examined. Nose: General/bilateral: Discharge: - Nasal discharge. Nasal Edema: - Noted. Sinus Tenderness: - Tenderness of sinuses. Pharynx: Oropharynx: - Abnormal. Lungs: - Lung auscultation revealed abnormalities. - A bilateral decrease in breath sounds was heard. - Wheezing was heard. - Normal. - Respiration rhythm and depth was normal. Cardiovascular: Auscultation: - Normal. Heart Rate And Rhythm: - Normal. Heart Sounds: - Normal. Abdomen: Visual Inspection: - Abdomen was normal on visual inspection. Musculoskeletal System: General/bilateral: - Normal movement of all extremities. Skin: - General appearance was normal. Tests Laboratory-based Chemistry: Other Laboratory Tests: Screening for sexually transmitted infections was not performed. Assessment - Body mass index [Body mass index [BMI] 33.0-33.9, adult] - Anxiety disorder NOS [Anxiety disorder, unspecified] Therapy - Patient refused flu vaccine. Discussed benefits of flu vaccine with Patient. Vaccinations - Did not receive dose of Reported: Patient has not received the Covid Vaccine Counseling/Education - Wishing to stop smoking Discussed Quit Line resources - Discussed nutritional needs teach healthy choices including fruits and vegetables - Patient education about a proper diet - Not requesting contraception - Discussed concerns about exercise: promote physical activity Will give augmentin to cover sinuses and urinary tract Will send out urine Will give steriod due to patients lung sounds Will increase symbicort Follow up in one month Plan StartCited- Acute sinusitis, unspecified Amoxicillin-Pot Clavulanate 875-125 MG tablet Take one tablet two times a day for 10 days, 10 days, 0 refills EndCited StartCited- Acute vaginitis Outside Labs/Microbiology: All 3 Urine Test Ovggjgvka-Ynfpieltb-Lqxfeoimptb, Urine Culture & Sensitivity ([id number]) Outside Labs/Microbiology: BD Affirm Diflucan 150 MG tablet Take one tablet as need for yeast infection with antibiotic, 1 days, 0 refills EndCited StartCited- Mild persistent asthma, uncomplicated predniSONE 20 MG tablet Take one tablet two times a day for 5 days, 5 days, 0 refills Symbicort 160-4.5 MCG/ACT gram Inhale 2 puffs two times a day ( rinse mouth after use), 30 days, 2 refills EndCited Notes - Patient is not interested in the COVID-19 vaccination at this time. Advance Directives - Living Will - Declined to Provide Advance Directive [facility]10-27-2023 Instructions Includes: Instructions for all patient encounters Instructions to patient Intervention and counseling on cessation of tobacco use, 3-10 minutes Last Documented On 0 1:15PM ; [facility] Education and Decision Aids were provided during visit for: Discussed nutritional needs teach healthy choices including fruits and vegetables Last Documented On 3 10:48AM ; [facility] Patient education about a pr oper diet Last Documented On 3 10:48AM ; [facility] Discussed concerns about exe rcise : promote physical activity ~ ~Will give augmentin to cover sinuses and urinary tract ~ ~Will send out urine ~ ~Will give steriod due to patients lung sounds ~ ~Will increase symbicort ~ ~Follow up in one month Last Documented On 3 3:48PM ; [facility] Not requesting contraception Last Documented On 3 10:50AM ; [facility] Discussed nutritional needs teach healthy choices including fruits and vegetables Last Documented On 3 11:01AM ; [facility] Patient education about a pr oper diet Last Documented On 3 11:01AM ; [facility] Discussed concerns about exe rcise : promote physical activity ~ ~Follow up after ER visit Last Documented On 3 8:31PM ; [facility] Not requesting contraception Last Documented On 3 11:03AM ; [facility] Discussed nutritional needs teach healthy choices including fruits and vegetables Last Documented On 3 12:03PM ; [facility] Patient education about a pr oper diet Last Documented On 3 12:03PM ; [facility] Discussed concerns about exe rcise : promote physical activity ~ ~Will keep medication the same Last Documented On 3 4:46AM ; [facility] Not requesting contraception Last Documented On 3 12:04PM ; [facility] Discussed nutritional needs teach healthy choices including fruits and vegetables Last Documented On 3 9:09AM ; [facility] Patient education about a pr oper diet Last Documented On 3 9:09AM ; [facility] Patient education about an a sthma action plan Last Documented On 3 9:44AM ; [facility] Discussed concerns about exe rcise : promote physical activity ~ ~Will restart symbicort ~ ~Follow up in one month for asthma Last Documented On 3 12:28PM ; [facility] Discussed nutritional needs teach healthy choices including fruits and vegetables Last Documented On 2 10:58AM ; [facility] Patient education about a pr oper diet Last Documented On 2 10:58AM ; [facility] Discussed concerns about exe rcise : promote physical activity Last Documented On 2 10:58AM ; [facility] Discussed nutritional needs teach healthy choices including fruits and vegetables Last Documented On 2 11:41AM ; [facility] Patient education about a pr oper diet Last Documented On 2 11:41AM ; [facility] Discussed concerns about exe rcise : promote physical activity Last Documented On 2 11:41AM ; [facility] offered active listening and supportive feedback; normalized emotions and feelings, also provided pt time to process any current stressors ~[facility] discussed benefits of counseling and supported pt in following through with scheduled appt. ~[facility] encouraged pt to continue to make time to implement self-care regimen to assist in improving their mood Last Documented On 2 2:29PM ; [facility] Provided supportive listenin g and reflective feedback; monitored mood, explored symptoms, assessed functioning. ~Discussed medication use/compliance. ~Promoted use of healthy coping mechanisms and positive support, as needed Last Documented On 2 1:25PM ; [facility] Discussed nutritional needs teach healthy choices including fruits and vegetables Last Documented On 2 12:54PM ; [facility] Patient education about a pr oper diet Last Documented On 2 12:54PM ; [facility] Discussed concerns about exe rcise : promote physical activity Last Documented On 2 12:54PM ; [facility] Discussed nutritional needs teach healthy choices including fruits and vegetables Last Documented On 2 11:39AM ; [facility] Patient education about a pr oper diet Last Documented On 2 11:39AM ; [facility] Discussed concerns about exe rcise : promote physical activity Last Documented On 2 11:39AM ; [facility] Discussed nutritional needs teach healthy choices including fruits and vegetables Last Documented On 2 10:29AM ; [facility] Patient education about a pr oper diet Last Documented On 2 10:29AM ; [facility] Discussed concerns about exe rcise : promote physical activity Last Documented On 2 10:29AM ; [facility] Discussed current self-care methods/coping skills. ~Validated and normalized patient's feelings while assisting process recent events. ~Discussed ongoing counseling. ~Discussed lifestyle changes to address chronic illness. ~Supported patient's personal health goals Last Documented On 2 8:50PM ; [facility] Discussed nutritional needs teach healthy choices including fruits and vegetables Last Documented On 2 11:15AM ; [facility] Patient education about a pr oper diet Last Documented On 2 11:15AM ; [facility] Discussed concerns about exe rcise : promote physical activity Last Documented On 2 11:15AM ; [facility] Discussed current self-care methods/coping skills. ~Validated and normalized patient's feelings while assisting process recent events. ~Discussed ongoing mental health services. ~Discussed lifestyle changes to address chronic illness. ~Supported patient's personal health goals. ~ ~Reports feeling better since beginning new meds. Also voices and visual hallucinations have stopped; reports voices were not commanfing Last Documented On 2 8:54PM ; [facility] offered active and suppo rtive listening and normalized emotions and feelings. ~P discussed with patient and significant other in the room with her crisis resources. Patient is agreeable to contacting one of the crisis resources should moods worsen or call 911 or go to the Emergency Room. Patient reports that she can also speak with significant others Mom or go to her kids fathers house. ~[facility] and PCP discussed plan to follow-up with psychiatry and counseling and a new referral being sent to [facility]. If patient is not accepted back as a patient with Dr. Dickerson, will look into other resources Last Documented On 1 7:15PM ; [facility] Discussed nutritional needs teach healthy choices including fruits and vegetables Last Documented On 1 1:18PM ; [facility] Patient education about a pr oper diet Last Documented On 1 1:18PM ; [facility] Discussed concerns about exe rcise : promote physical activity Last Documented On 1 1:18PM ; [facility] Discussed nutritional needs teach healthy choices including fruits and vegetables Last Documented On 1 10:37AM ; [facility] Patient education about a pr oper diet Last Documented On 1 10:37AM ; [facility] Discussed concerns about exe rcise : promote physical activity Last Documented On 1 10:37AM ; [facility] Explored current symptoms an d stressors. Educaated patient re importance of counseling and provided brief review of EMDR treatment. ~Encouraged patient to engage in ongoing counseling. ~ Last Documented On 1 10:50PM ; [facility] Discussed nutritional needs teach healthy choices including fruits and vegetables Last Documented On 1 6:53PM ; [facility] Patient education about a pr oper diet Last Documented On 1 6:53PM ; [facility] Discussed concerns about exe rcise : promote physical activity Last Documented On 1 6:53PM ; [facility] provided active listenin g, support and helped patient process through current symptoms and stressors related to mood and irritability. ~[facility] discussed coping skills that patient has tried as well as discussed potential benefit of counseling. ~ ~ Last Documented On 0 11:49AM ; [facility] Discussed nutritional needs teach healthy choices including fruits and vegetables Last Documented On 0 1:15PM ; [facility] Patient education about a pr oper diet Last Documented On 0 1:15PM ; [facility] Patient education about a pr oper diet Last Documented On 0 1:33PM ; [facility] Patient education about meal planning Last Documented On 0 1:33PM ; [facility] Education about changing eat ing habits Last Documented On 0 1:33PM ; [facility] Patient education about high fiber diet Last Documented On 0 1:33PM ; [facility] Patient education about low fat diet Last Documented On 0 1:33PM ; [facility] Patient education about low cholesterol diet Last Documented On 0 1:33PM ; [facility] Patient education about low carbohydrate diet Last Documented On 0 1:33PM ; [facility] Patient education about high protein diet Last Documented On 0 1:33PM ; [facility] Discussed concerns about exe rcise : promote physical activity Last Documented On 0 1:15PM ; [facility] provided active listenin g, support and helped patient process through current symptoms and stressors due to pain, loss of work and low frustration tolerance. ~[facility] discussed coping skills and supports that patient can implement inclduing meditation, mindfulness, and deep breathing activities. [facility] provided resources to patient to work on implementing. ~[facility] discussed with patient re-establishing care for therapy and provided patient with resource list. ~ Last Documented On 0 6:15PM ; [facility] Discussed nutritional needs teach healthy choices including fruits and vegetables Last Documented On 0 1:12PM ; [facility] Patient education about a pr oper diet Last Documented On 0 1:12PM ; [facility] Patient education about a pr oper diet Last Documented On 0 1:46PM ; [facility] Patient education about meal planning Last Documented On 0 1:46PM ; [facility] Education about changing eat ing habits Last Documented On 0 1:46PM ; [facility] Patient education about high fiber diet Last Documented On 0 1:46PM ; [facility] Patient education about low fat diet Last Documented On 0 1:46PM ; [facility] Patient education about low cholesterol diet Last Documented On 0 1:46PM ; [facility] Patient education about low carbohydrate diet Last Documented On 0 1:46PM ; [facility] Patient education about high protein diet Last Documented On 0 1:46PM ; [facility] Discussed concerns about exe rcise : promote physical activity Last Documented On 0 1:12PM ; [facility] Work Phone: 1(110) 685-999610-23-2023 Instructions Includes: Instructions for all patient encounters Instructions to patient Intervention and counseling on cessation of tobacco use, 3-10 minutes Last Documented On 0 1:15PM ; [facility] Education and Decision Aids were provided during visit for: Discussed nutritional needs teach healthy choices including fruits and vegetables Last Documented On 3 11:01AM ; [facility] Patient education about a pr oper diet Last Documented On 3 11:01AM ; [facility] Discussed concerns about exe rcise : promote physical activity ~ ~Follow up after ER visit Last Documented On 3 8:31PM ; [facility] Not requesting contraception Last Documented On 3 11:03AM ; [facility] Discussed nutritional needs teach healthy choices including fruits and vegetables Last Documented On 3 12:03PM ; [facility] Patient education about a pr oper diet Last Documented On 3 12:03PM ; [facility] Discussed concerns about exe rcise : promote physical activity ~ ~Will keep medication the same Last Documented On 3 4:46AM ; [facility] Not requesting contraception Last Documented On 3 12:04PM ; [facility] Discussed nutritional needs teach healthy choices including fruits and vegetables Last Documented On 3 9:09AM ; [facility] Patient education about a pr oper diet Last Documented On 3 9:09AM ; [facility] Patient education about an a sthma action plan Last Documented On 3 9:44AM ; [facility] Discussed concerns about exe rcise : promote physical activity ~ ~Will restart symbicort ~ ~Follow up in one month for asthma Last Documented On 3 12:28PM ; [facility] Discussed nutritional needs teach healthy choices including fruits and vegetables Last Documented On 2 10:58AM ; [facility] Patient education about a pr oper diet Last Documented On 2 10:58AM ; [facility] Discussed concerns about exe rcise : promote physical activity Last Documented On 2 10:58AM ; [facility] Discussed nutritional needs teach healthy choices including fruits and vegetables Last Documented On 2 11:41AM ; [facility] Patient education about a pr oper diet Last Documented On 2 11:41AM ; [facility] Discussed concerns about exe rcise : promote physical activity Last Documented On 2 11:41AM ; [facility] offered active listening and supportive feedback; normalized emotions and feelings, also provided pt time to process any current stressors ~[facility] discussed benefits of counseling and supported pt in following through with scheduled appt. ~[facility] encouraged pt to continue to make time to implement self-care regimen to assist in improving their mood Last Documented On 2 2:29PM ; [facility] Provided supportive listenin g and reflective feedback; monitored mood, explored symptoms, assessed functioning. ~Discussed medication use/compliance. ~Promoted use of healthy coping mechanisms and positive support, as needed Last Documented On 2 1:25PM ; [facility] Discussed nutritional needs teach healthy choices including fruits and vegetables Last Documented On 2 12:54PM ; [facility] Patient education about a pr oper diet Last Documented On 2 12:54PM ; [facility] Discussed concerns about exe rcise : promote physical activity Last Documented On 2 12:54PM ; [facility] Discussed nutritional needs teach healthy choices including fruits and vegetables Last Documented On 2 11:39AM ; [facility] Patient education about a pr oper diet Last Documented On 2 11:39AM ; [facility] Discussed concerns about exe rcise : promote physical activity Last Documented On 2 11:39AM ; [facility] Discussed nutritional needs teach healthy choices including fruits and vegetables Last Documented On 2 10:29AM ; [facility] Patient education about a pr oper diet Last Documented On 2 10:29AM ; [facility] Discussed concerns about exe rcise : promote physical activity Last Documented On 2 10:29AM ; [facility] Discussed current self-care methods/coping skills. ~Validated and normalized patient's feelings while assisting process recent events. ~Discussed ongoing counseling. ~Discussed lifestyle changes to address chronic illness. ~Supported patient's personal health goals Last Documented On 2 8:50PM ; [facility] Discussed nutritional needs teach healthy choices including fruits and vegetables Last Documented On 2 11:15AM ; [facility] Patient education about a pr oper diet Last Documented On 2 11:15AM ; [facility] Discussed concerns about exe rcise : promote physical activity Last Documented On 2 11:15AM ; [facility] Discussed current self-care methods/coping skills. ~Validated and normalized patient's feelings while assisting process recent events. ~Discussed ongoing mental health services. ~Discussed lifestyle changes to address chronic illness. ~Supported patient's personal health goals. ~ ~Reports feeling better since beginning new meds. Also voices and visual hallucinations have stopped; reports voices were not commanfing Last Documented On 2 8:54PM ; [facility] offered active and suppo rtive listening and normalized emotions and feelings. ~P discussed with patient and significant other in the room with her crisis resources. Patient is agreeable to contacting one of the crisis resources should moods worsen or call 911 or go to the Emergency Room. Patient reports that she can also speak with significant others Mom or go to her madvertise house. ~[facility] and PCP discussed plan to follow-up with psychiatry and counseling and a new referral being sent to [facility]. If patient is not accepted back as a patient with Dr. Dickerson, will look into other resources Last Documented On 1 7:15PM ; [facility] Discussed nutritional needs teach healthy choices including fruits and vegetables Last Documented On 1 1:18PM ; [facility] Patient education about a pr oper diet Last Documented On 1 1:18PM ; [facility] Discussed concerns about exe rcise : promote physical activity Last Documented On 1 1:18PM ; [facility] Discussed nutritional needs teach healthy choices including fruits and vegetables Last Documented On 1 10:37AM ; [facility] Patient education about a pr oper diet Last Documented On 1 10:37AM ; [facility] Discussed concerns about exe rcise : promote physical activity Last Documented On 1 10:37AM ; [facility] Explored current symptoms an d stressors. Educaated patient re importance of counseling and provided brief review of EMDR treatment. ~Encouraged patient to engage in ongoing counseling. ~ Last Documented On 1 10:50PM ; [facility] Discussed nutritional needs teach healthy choices including fruits and vegetables Last Documented On 1 6:53PM ; [facility] Patient education about a pr oper diet Last Documented On 1 6:53PM ; [facility] Discussed concerns about exe rcise : promote physical activity Last Documented On 1 6:53PM ; [facility] provided active listenin g, support and helped patient process through current symptoms and stressors related to mood and irritability. ~[facility] discussed coping skills that patient has tried as well as discussed potential benefit of counseling. ~ ~ Last Documented On 0 11:49AM ; [facility] Discussed nutritional needs teach healthy choices including fruits and vegetables Last Documented On 0 1:15PM ; [facility] Patient education about a pr oper diet Last Documented On 0 1:15PM ; [facility] Patient education about a pr oper diet Last Documented On 0 1:33PM ; [facility] Patient education about meal planning Last Documented On 0 1:33PM ; [facility] Education about changing eat ing habits Last Documented On 0 1:33PM ; [facility] Patient education about high fiber diet Last Documented On 0 1:33PM ; [facility] Patient education about low fat diet Last Documented On 0 1:33PM ; [facility] Patient education about low cholesterol diet Last Documented On 0 1:33PM ; [facility] Patient education about low carbohydrate diet Last Documented On 0 1:33PM ; [facility] Patient education about high protein diet Last Documented On 0 1:33PM ; [facility] Discussed concerns about exe rcise : promote physical activity Last Documented On 0 1:15PM ; [facility] provided active listenin g, support and helped patient process through current symptoms and stressors due to pain, loss of work and low frustration tolerance. ~[facility] discussed coping skills and supports that patient can implement inclduing meditation, mindfulness, and deep breathing activities. [facility] provided resources to patient to work on implementing. ~[facility] discussed with patient re-establishing care for therapy and provided patient with resource list. ~ Last Documented On 0 6:15PM ; [facility] Discussed nutritional needs teach healthy choices including fruits and vegetables Last Documented On 0 1:12PM ; [facility] Patient education about a pr oper diet Last Documented On 0 1:12PM ; [facility] Patient education about a pr oper diet Last Documented On 0 1:46PM ; [facility] Patient education about meal planning Last Documented On 0 1:46PM ; [facility] Education about changing eat ing habits Last Documented On 0 1:46PM ; [facility] Patient education about high fiber diet Last Documented On 0 1:46PM ; [facility] Patient education about low fat diet Last Documented On 0 1:46PM ; [facility] Patient education about low cholesterol diet Last Documented On 0 1:46PM ; [facility] Patient education about low carbohydrate diet Last Documented On 0 1:46PM ; [facility] Patient education about high protein diet Last Documented On 0 1:46PM ; [facility] Discussed concerns about exe rcise : promote physical activity Last Documented On 0 1:12PM ; [facility] Work Phone: 1(323) 305-829410-19-2023 Evaluation note Includes: Assessments for all patient encounters Findings Encounter Date Body mass index Medical Established Patient with Srinivasa Ward [employer]OLOGY ADJUNCT INSTRUCTOR 01/28/2023 Last Documented On 3 8:31PM ; [facility] [Body mass index [BMI] 32.0- 32.9, adult] assessment of body mass index Medical Established Patient with Srinivasa Ward BIOLOGY ADJUNCT INSTRUCTOR 12/31/2022 Last Documented On 3 5:25AM ; [facility] Uncomplicated mild persistent asthma Med ical Established Patient with Srinivasa Ward BIOLOGY ADJUNCT INSTRUCTOR 12/31/2022 Last Documented On 3 5:25AM ; [facility] [Body mass index [BMI] 33.0- 33.9, adult] assessment of body mass index Medical Established Patient with Srinivasa Ward BIOLOGY ADJUNCT INSTRUCTOR 11/30/2022 Last Documented On 3 12:28PM ; [facility] Anxiety disorder NOS Medical Established Patient with Srinivasa Ward BIOLOGY ADJUNCT INSTRUCTOR 11/30/2022 Last Documented On 3 12:28PM ; [facility] Diabetes Risk Test Score was four score 11/30/2022 Medical Established Patient with Srinivasa Ward BIOLOGY ADJUNCT INSTRUCTOR 11/30/2022 Last Documented On 3 12:28PM ; [facility] Uncomplicated mild persistent asthma Med ical Established Patient with Srinivasa Ward BIOLOGY ADJUNCT INSTRUCTOR 11/30/2022 Last Documented On 3 12:28PM ; [facility] Visit for: routine adult H&P with abnormal findings Medical Established Patient with Srinivasa Ward BIOLOGY ADJUNCT INSTRUCTOR 11/30/2022 Last Documented On 3 12:28PM ; [facility] [Body mass index [BMI] 30.0- 30.9, adult] assessment of body mass index Medical Established Patient with Srinivasa Ward BIOLOGY ADJUNCT INSTRUCTOR 01/22/2022 Last Documented On 2 6:17PM ; [facility] Dysuria Medical Established Patient with Srinivasa Ward BIOLOGY ADJUNCT INSTRUCTOR 01/22/2022 Last Documented On 2 6:17PM ; [facility] Bipolar schizoaffective disorder BH Esta blished Patient with Inatameka WatkinsDíaz LPCC-S 12/11/2021 Last Documented On 2 2:31PM ; [facility] Assessment of body mass inde x [Body mass index [BMI] 26.0-26.9, adult] Medical Established Patient with Srinivasa Ward BIOLOGY ADJUNCT INSTRUCTOR 12/11/2021 Last Documented On 2 12:34PM ; [facility] Bipolar schizoaffective disorder BH Esta blished Patient with Inatameka WatkinsDíaz LPCC-S 11/25/2021 Last Documented On 2 1:25PM ; [facility] Anxiety disorder NOS Medical Established Patient with Traci Juma BIOLOGY ADJUNCT INSTRUCTOR 11/25/2021 Last Documented On 2 3:06PM ; [facility] Urinary tract infection Medical Establis hed Patient with Traci Juma BIOLOGY ADJUNCT INSTRUCTOR 11/25/2021 Last Documented On 2 3:06PM ; [facility] Z68.27 - Body mass index [BM I] 27.0-27.9, adult Medical Established Patient with Traci Juma BIOLOGY ADJUNCT INSTRUCTOR 11/25/2021 Last Documented On 2 3:06PM ; [facility] Anxiety disorder NOS Medical Established Patient with Traci Juma BIOLOGY ADJUNCT INSTRUCTOR 08/13/2021 Last Documented On 2 8:18AM ; [facility] Assessment of body mass index Medical Es tablished Patient with Traci Juma BIOLOGY ADJUNCT INSTRUCTOR 08/13/2021 Last Documented On 2 8:18AM ; [facility] Chronic gastritis without hemorrhage Med ical Established Patient with Traci Juma BIOLOGY ADJUNCT INSTRUCTOR 08/13/2021 Last Documented On 2 8:18AM ; [facility] Diverticulosis of intestine Medical Esta blished Patient with Traci Juma BIOLOGY ADJUNCT INSTRUCTOR 08/13/2021 Last Documented On 2 8:18AM ; [facility] Urinary tract infection Medical Establis hed Patient with Traci Juma BIOLOGY ADJUNCT INSTRUCTOR 08/13/2021 Last Documented On 2 8:18AM ; [facility] Anxiety disorder NOS Medical Established Patient with Traci Juma BIOLOGY ADJUNCT INSTRUCTOR 07/17/2021 Last Documented On 2 8:10AM ; [facility] Other hypothyroidism Medical Established Patient with Traci Juma BIOLOGY ADJUNCT INSTRUCTOR 07/17/2021 Last Documented On 2 8:10AM ; [facility] Upper respiratory infection Medical Esta blished Patient with Traci Juma BIOLOGY ADJUNCT INSTRUCTOR 07/17/2021 Last Documented On 2 8:10AM ; [facility] Visit for: routine adult H&P with abnormal findings Medical Established Patient with Traci Juma BIOLOGY ADJUNCT INSTRUCTOR 07/17/2021 Last Documented On 2 8:10AM ; [facility] Visit for: screening for lip oid disorders Medical Established Patient with Traci Juma BIOLOGY ADJUNCT INSTRUCTOR 07/17/2021 Last Documented On 2 8:10AM ; [facility] Vitamin B12 deficiency Medical Establish ed Patient with Traci Juma BIOLOGY ADJUNCT INSTRUCTOR 07/17/2021 Last Documented On 2 8:10AM ; [facility] Vitamin D deficiency Medical Established Patient with Traci Juma BIOLOGY ADJUNCT INSTRUCTOR 07/17/2021 Last Documented On 2 8:10AM ; [facility] Z68.28 - Body mass index [BM I] 28.0-28.9, adult Medical Established Patient with Traci Juma BIOLOGY ADJUNCT INSTRUCTOR 07/17/2021 Last Documented On 2 8:10AM ; [facility] Allergic rhinitis Telemedicine Establi sted Patient with Traci Dennison BIOLOGY ADJUNCT INSTRUCTOR 07/16/2021 Last Documented On 2 8:23AM ; [facility] Exposure to COVID-19 Telemedicine Establ isted Patient with Traci Dennison BIOLOGY ADJUNCT INSTRUCTOR 04/29/2021 Last Documented On 2 8:02PM ; [facility] Bipolar schizoaffective disorder Esta blished Patient with Farrah Jarrett LPCC-S 04/15/2021 Last Documented On 2 1:07PM ; [facility] Anxiety disorder NOS Medical Established Patient with Traci Dennison BIOLOGY ADJUNCT INSTRUCTOR 04/15/2021 Last Documented On 2 9:06AM ; [facility] Assessment of body mass index Medical Es tablished Patient with Traci Dennison BIOLOGY ADJUNCT INSTRUCTOR 04/15/2021 Last Documented On 2 9:06AM ; [facility] Bipolar disorder NOS Medical Established Patient with Traci Dennison BIOLOGY ADJUNCT INSTRUCTOR 04/15/2021 Last Documented On 2 9:06AM ; [facility] Anxiety disorder NOS Telebehavioral H ealth with Farrah Jarrett LPCC-S 04/09/2021 Last Documented On 2 9:05AM ; [facility] Bipolar disorder NOS Telebehavioral H ealth with Farrah Jarrett LPCC-S 04/09/2021 Last Documented On 2 9:05AM ; [facility] Anxiety disorder NOS Established Patient with Hannah Short LISWS 04/03/2021 Last Documented On 1 7:15PM ; [facility] Bipolar I disorder, most rec ent episode, depressed Established Patient with Hannah Short LISWS 04/03/2021 Last Documented On 1 7:15PM ; [facility] Nicotine dependence Established Patient with Hannah Short LISWS 04/03/2021 Last Documented On 1 7:15PM ; [facility] Nicotine dependence Established Patient with Hannah Short LISWS 04/03/2021 Last Documented On 1 7:15PM ; [facility] Undifferentiated schizophren ia per patient reported history BH Established Patient with Hannah Short LISWS 04/03/2021 Last Documented On 1 7:15PM ; [facility] A home test was negative Medic al Established Patient with Traci Dennison BIOLOGY ADJUNCT INSTRUCTOR 04/03/2021 Last Documented On 1 8:11PM ; [facility] Assessment of body mass index Medical Es tablished Patient with Traci Dennison BIOLOGY ADJUNCT INSTRUCTOR 04/03/2021 Last Documented On 1 8:11PM ; [facility] Epilepsy, not intractable, w ithout status epilepticus Medical Established Patient with Traci Dennison BIOLOGY ADJUNCT INSTRUCTOR 04/03/2021 Last Documented On 1 8:11PM ; [facility] Mixed affective bipolar diso rder, moderate Medical Established Patient with Traci Dennison BIOLOGY ADJUNCT INSTRUCTOR 04/03/2021 Last Documented On 1 8:11PM ; [facility] Urinary tract infection Medical Establis hed Patient with Traci Dennison BIOLOGY ADJUNCT INSTRUCTOR 04/03/2021 Last Documented On 1 8:11PM ; [facility] Visit for: screening for STD Medical Est ablished Patient with Traci Dennison BIOLOGY ADJUNCT INSTRUCTOR 04/03/2021 Last Documented On 1 8:11PM ; [facility] Assessment of visit for: scr eening for human immunodeficiency virus Medical Established Patient with Peggy Thrasher BIOLOGY ADJUNCT INSTRUCTOR 02/14/2021 Last Documented On 1 1:16PM ; [facility] Diabetes Risk Test Score was three score 02/14/2021 Medical Established Patient with Peggy Thrasher BIOLOGY ADJUNCT INSTRUCTOR 02/14/2021 Last Documented On 1 1:16PM ; [facility] Diarrhea Medical Established Patient with Peggy Thrasher BIOLOGY ADJUNCT INSTRUCTOR 02/14/2021 Last Documented On 1 1:16PM ; [facility] Nicotine dependence Medical Established Patient with Peggy Thrasher BIOLOGY ADJUNCT INSTRUCTOR 02/14/2021 Last Documented On 1 1:16PM ; [facility] Z68.28 - Body mass index [BM I] 28.0-28.9, adult Medical Established Patient with Peggy Thrasher BIOLOGY ADJUNCT INSTRUCTOR 02/14/2021 Last Documented On 1 1:16PM ; [facility] Cough Telemedicine Establisted Patient with Traci Dennison BIOLOGY ADJUNCT INSTRUCTOR 01/01/2021 Last Documented On 1 6:31PM ; [facility] Fever Telemedicine Establisted Patient with Traci Dennison BIOLOGY ADJUNCT INSTRUCTOR 01/01/2021 Last Documented On 1 6:31PM ; [facility] Z20.822 - Contact with and (suspected) exposure to COVID-19 Telemedicine Establisted Patient with Traci Dennison BIOLOGY ADJUNCT INSTRUCTOR 01/01/2021 Last Documented On 1 6:31PM ; [facility] Bipolar I disorder, most rec ent episode, depressed Established Patient with Farrahmatthew Klinemons LPCC-S 06/03/2020 Last Documented On 1 10:50PM ; [facility] Paranoid schizophrenia per p atient report Established Patient with Farrahmatthew Klinemons LPCC-S 06/03/2020 Last Documented On 1 10:50PM ; [facility] Post-traumatic stress disord er per patient report Established Patient with Farrahmatthew Hernandezs LPCC-S 06/03/2020 Last Documented On 1 10:50PM ; [facility] 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 Patient with Traci Dennison [facility] 06/03/2020 Last Documented On 1 8:25AM ; [facility] Overweight Medical Established Patient with Traci Dennison BIOLOGY ADJUNCT INSTRUCTOR 06/03/2020 Last Documented On 1 8:25AM ; [facility] Z68.29 - Body mass index [BM I] 29.0-29.9, adult Medical Established Patient with Traci Dennison BIOLOGY ADJUNCT INSTRUCTOR 06/03/2020 Last Documented On 1 8:25AM ; [facility] Anxiety disorder NOS Medical Established Patient with Traci Dennison BIOLOGY ADJUNCT INSTRUCTOR 01/26/2020 Last Documented On 0 7:37PM ; [facility] Bipolar disorder NOS Medical Established Patient with Traci Dennison BIOLOGY ADJUNCT INSTRUCTOR 01/26/2020 Last Documented On 0 7:37PM ; [facility] Infection of tooth Medical Established Patient w ith Traci Dennison BIOLOGY ADJUNCT INSTRUCTOR 01/26/2020 Last Documented On 0 7:37PM ; [facility] Z68.20 - Body mass index [BM I] 20.0-20.9, adult Medical Established Patient with Traci Dennison BIOLOGY ADJUNCT INSTRUCTOR 01/26/2020 Last Documented On 0 7:37PM ; [facility] Bipolar I disorder, most rec ent episode, mixed Established Patient with Hannah Short LISWS 01/08/2020 Last Documented On 0 11:49AM ; [facility] Generalized anxiety disorder Establis hed Patient with Hannah Short LISWS 01/08/2020 Last Documented On 0 11:49AM ; [facility] Diabetes Risk Test Score was one score 01/08/2020 Medical Established Patient with Peggyisis Leoen BIOLOGY ADJUNCT INSTRUCTOR 01/08/2020 Last Documented On 0 1:42PM ; [facility] Overweight Medical Established Patient with Peggyisis Leoen BIOLOGY ADJUNCT INSTRUCTOR 01/08/2020 Last Documented On 0 1:42PM ; [facility] Z68.27 - Body mass index (BM I) 27.0-27.9, adult Medical Established Patient with Peggy Thrasher BIOLOGY ADJUNCT INSTRUCTOR 01/08/2020 Last Documented On 0 1:42PM ; [facility] Bipolar I disorder, most rec ent episode, mixed Established Patient with Hannah Short LISWS 12/25/2019 Last Documented On 0 6:16PM ; [facility] Generalized anxiety disorder Establis hed Patient with Hannah Short LISWS 12/25/2019 Last Documented On 0 6:16PM ; [facility] Overweight Medical Established Patient with Peggy Anna Marie BIOLOGY ADJUNCT INSTRUCTOR 12/25/2019 Last Documented On 0 1:54PM ; [facility] Z68.26 - Body mass index (BM I) 26.0-26.9, adult Medical Established Patient with Peggy Anna Marie BIOLOGY ADJUNCT INSTRUCTOR 12/25/2019 Last Documented On 0 1:54PM ; [facility] Work Phone: [phone] 311-635210-19-2023 Progress note* Progress note Date Encounter Last Documented by 01/28/2023 Medical Established Patient Last documented on 02/01/2023; 8:31 PM, Srinivasa Ward BIOLOGY ADJUNCT INSTRUCTOR; [facility] Active Problems & Conditions - F41.9 - Anxiety Disorder Nos - Anxiety - J45.30 - Asthma Mild Persistent Uncomplicated - S03.00XA - Dislocation of jaw, unspecified side, initial encounter - TMJ (dislocation of temporomandibular joint) - G40.909 - Epilepsy Not Intractable Without Status Epilepticus - Epilepsy - K29.50 - Gastritis Chronic Without Hemorrhage - per colonoscopy on 03/19/2021 - Hemorrhoids - per colonoscopy 03/2021 - K57.30 - Intestinal Disorder Diverticulosis - per colonoscopy 03/2021 - F25.0 - Schizoaffective Disorder, Bipolar - SEE_NOTE - See Note: - Smoker within last 12 months - M19.90 - Unspecified osteoarthritis, unspecified site - Arthritis Chief Complaint The Chief Complaint is: 1 month f/u, ER f/u. Referred Here Not referred by urgent care clinic and not the emergency room. No prior encounters. - Data to be reviewed: no clinical lab tests History of Present Illness Abrahan Woods is a 32 year old female. - Allergy list reviewed - Reviewed Medications - Date of last menstruation 09/2022 hysterectomy 11/01 - test - would not like a test Patient presents with a migraine, severe abdominal pain, with nausea and vominting Patient went to the ER yesterday and was diagnosed with a viral illness Currently is crying in pain because she is in so much pain, patient is concerned that something is wrong with her abdominal hernia and that is why her abdomen is hurting so bad Will give patient a toradol injection and send to ER for evaluation of pain Current Medication - Amitriptyline HCl 50 MG Oral Tablet Take one tablet daily at bedtime, 30 days, 5 refills - Benzonatate 100 MG Oral Capsule take one capsule three times daily as needed for cough per suman morgan, 0 days, 0 refills - busPIRone HCl 15 MG Oral Tablet take one tablet three times daily, 30 days, 5 refills - Dicyclomine HCl 10 MG Oral Capsule, conventional take 1 capsule by mouth three times daily, 30 days, 1 refills - Doxycycline Hyclate 100 MG Oral Capsule Take one tablet every 12 hours ( two times a day) for 7 days, 7 days, 0 refills - Fluticasone Propionate 50 MCG/ACT Nasal Suspension inhale 1 spray into each nostril 2 times per day., 30 days, 5 refills - Ibuprofen 800 MG Oral Tablet 14 days, 0 refills - Omeprazole 40 MG Oral Capsule, delayed-release Capsule Delayed Release one capsule twice daily per Mirza Amanda, 0 days, 0 refills - Ondansetron 4 MG Oral Tablet Disintegrating dissolve one tablet every 6 hours as needed for nausea and vomiting per suman morgan, 0 days, 0 refills - Pantoprazole Sodium 40 MG Oral Tablet Delayed Release one tablet twice daily per Mirza Amanda, 0 days, 0 refills - Prazosin HCl 1 MG Oral Capsule take one capsule by mouth at bedtime for ptsd nightmares, 30 days, 5 refills - Symbicort 80-4.5 MCG/ACT Inhalation Aerosol Inhale 2 puffs by mouth twice a day (rinse mouth after use), 30 days, 2 refills - Ventolin HFA 108 (90 Base) MCG/ACT Inhalation Aerosol Solution inhale 2 puffs by mouth into lungs every 4 hours as needed for shortness of breath, 30 days, 5 refills - ZyrTEC Allergy 10 MG Oral Tablet Take one tablet daily ( do not take with loratadine), 30 days, 5 refills Past Medical/Surgical History Reported: Medical: No previous hospitalizations. : Not planning to have a baby in the next 12 months. Diagnoses: Asthma. Ovarian cyst. Keratitis follicularis (Darier's disease). Epilepsy. Schizophrenia Bipolar disorder NOS Depression. Post-traumatic stress disorder. Anxiety disorder NOS Procedural: - Complete colonoscopy Surgical: - Tonsillectomy - Tonsillectomy with adenoidectomy - General surgery ablation EGD Colonoscopy gallbladder - Hernia repair - Hysterectomy 10/29/2022 - Tubal ligation Social History Environmental Exposure: Secondhand cigarette smoke exposure. Tobacco use: Cigarette smoking Light (1-10/day) and using electronic cigarettes/vaping. Alcohol: A social drinker. Drug Use: Using marijuana. Sexual: Sexual orientation Straight (not lesbian or munoz) and gender identity Female. Allergies - Tracy - Egg - Fish - Latex - Morphine Derivatives Reaction: Nausea - NO KNOWN DRUG ALLERGIES - -No Known Food Allergies Family History Father 2009 Mother is alive Maternal: Cardiovascular disorder Asthma Oncologic disorder Overain Physical Findings - Vitals taken 01/28/2023 10:57 am BP-Sitting L118/75 mmHg BP Cuff SizeLarge Pulse Rate-Pzficmp30 bpm Temp-Oral98.4 F Hflnlr15 in Crbbzb299 lbs 12.8 oz Body Mass Index32.7 kg/m2 Body Surface Area1.7 m2 Oxygen Sfvzgikmjr65 % Vital Signs: - Systolic blood pressure < 130 mmHg. - Diastolic Blood Pressure < 80 mmHg. Tests Laboratory-based Chemistry: Other Laboratory Tests: Screening for sexually transmitted infections was not performed. Assessment - Body mass index [Body mass index [BMI] 32.0-32.9, adult] Therapy - Other Administered 2 mL of Ketorolac Tromethamine 60 MG/2ML on 01/28/23 11:42a, Patient tolerated therapy well. No signs or symptoms of adverse reactions. Patient waited in clinic for 15 minutes after administration. - Patient refused flu vaccine. Discussed benefits of flu vaccine with Patient. Vaccinations - Did not receive dose of Reported: Patient has not received the Covid Vaccine Counseling/Education - Wishing to stop smoking Discussed Quit Line resources - Discussed nutritional needs teach healthy choices including fruits and vegetables - Patient education about a proper diet - Not requesting contraception - Discussed concerns about exercise: promote physical activity Follow up after ER visit Plan StartCited- Headache, unspecified In House Medications/Meds: Ketorolac 60 mg/2ml INJ (Toradol) EndCited StartCited- Migraine with aura, not intractable, with status migrainosus Imitrex 25 MG tablet Take one tablet as needed for migraines may repeat x1 dose after 4 hours, 30 days, 1 refills EndCited Notes - Patient is not interested in the COVID-19 vaccination at this time. Advance Directives - Living Will - Declined to Provide Advance Directive [facility]09-21-2023 Evaluation note Includes: Assessments for all patient encounters Findings Encounter Date [Body mass index [BMI] 32.0- 32.9, adult] assessment of body mass index Medical Established Patient with Srinivasa Ed KRAFT 12/31/2022 Last Documented On 3 5:25AM ; [facility] Uncomplicated mild persistent asthma Med ical Established Patient with Srinivasa Ed BIOLOGY ADJUNCT INSTRUCTOR 12/31/2022 Last Documented On 3 5:25AM ; [facility] [Body mass index [BMI] 33.0- 33.9, adult] assessment of body mass index Medical Established Patient with Srinivasa Ed BIOLOGY ADJUNCT INSTRUCTOR 11/30/2022 Last Documented On 3 12:28PM ; [facility] Anxiety disorder NOS Medical Established Patient with Srinivasa Ed BIOLOGY ADJUNCT INSTRUCTOR 11/30/2022 Last Documented On 3 12:28PM ; [facility] Diabetes Risk Test Score was four score 11/30/2022 Medical Established Patient with Srinivasa Ed BIOLOGY ADJUNCT INSTRUCTOR 11/30/2022 Last Documented On 3 12:28PM ; [facility] Uncomplicated mild persistent asthma Med ical Established Patient with Srinivasa Ed BIOLOGY ADJUNCT INSTRUCTOR 11/30/2022 Last Documented On 3 12:28PM ; [facility] Visit for: routine adult H&P with abnormal findings Medical Established Patient with Srinivasa Ed BIOLOGY ADJUNCT INSTRUCTOR 11/30/2022 Last Documented On 3 12:28PM ; [facility] [Body mass index [BMI] 30.0- 30.9, adult] assessment of body mass index Medical Established Patient with Srinivasa Ed BIOLOGY ADJUNCT INSTRUCTOR 01/22/2022 Last Documented On 2 6:17PM ; [facility] Dysuria Medical Established Patient with Srinivasa Ed BIOLOGY ADJUNCT INSTRUCTOR 01/22/2022 Last Documented On 2 6:17PM ; [facility] Bipolar schizoaffective disorder BH Esta blished Patient with Ina Díaz LPCC-S 12/11/2021 Last Documented On 2 2:31PM ; [facility] Assessment of body mass inde x [Body mass index [BMI] 26.0-26.9, adult] Medical Established Patient with Srinivasa De BIOLOGY ADJUNCT INSTRUCTOR 12/11/2021 Last Documented On 2 12:34PM ; [facility] Bipolar schizoaffective disorder BH Esta blished Patient with Ina Díaz LPCC-S 11/25/2021 Last Documented On 2 1:25PM ; [facility] Anxiety disorder NOS Medical Established Patient with Traci Juma BIOLOGY ADJUNCT INSTRUCTOR 11/25/2021 Last Documented On 2 3:06PM ; [facility] Urinary tract infection Medical Establis hed Patient with Traci Juma BIOLOGY ADJUNCT INSTRUCTOR 11/25/2021 Last Documented On 2 3:06PM ; [facility] Z68.27 - Body mass index [BM I] 27.0-27.9, adult Medical Established Patient with Traci Juma BIOLOGY ADJUNCT INSTRUCTOR 11/25/2021 Last Documented On 2 3:06PM ; [facility] Anxiety disorder NOS Medical Established Patient with Traci Juma BIOLOGY ADJUNCT INSTRUCTOR 08/13/2021 Last Documented On 2 8:18AM ; [facility] Assessment of body mass index Medical Es tablished Patient with Traci Juma BIOLOGY ADJUNCT INSTRUCTOR 08/13/2021 Last Documented On 2 8:18AM ; [facility] Chronic gastritis without hemorrhage Med ical Established Patient with Traci Juma BIOLOGY ADJUNCT INSTRUCTOR 08/13/2021 Last Documented On 2 8:18AM ; [facility] Diverticulosis of intestine Medical Esta blished Patient with Traci Juma BIOLOGY ADJUNCT INSTRUCTOR 08/13/2021 Last Documented On 2 8:18AM ; [facility] Urinary tract infection Medical Establis hed Patient with Traci Juma BIOLOGY ADJUNCT INSTRUCTOR 08/13/2021 Last Documented On 2 8:18AM ; [facility] Anxiety disorder NOS Medical Established Patient with Traci Juma BIOLOGY ADJUNCT INSTRUCTOR 07/17/2021 Last Documented On 2 8:10AM ; [facility] Other hypothyroidism Medical Established Patient with Traci Juma BIOLOGY ADJUNCT INSTRUCTOR 07/17/2021 Last Documented On 2 8:10AM ; [facility] Upper respiratory infection Medical Esta blished Patient with Traci Juma BIOLOGY ADJUNCT INSTRUCTOR 07/17/2021 Last Documented On 2 8:10AM ; [facility] Visit for: routine adult H&P with abnormal findings Medical Established Patient with Traci Juma BIOLOGY ADJUNCT INSTRUCTOR 07/17/2021 Last Documented On 2 8:10AM ; [facility] Visit for: screening for lip oid disorders Medical Established Patient with Traci Dennison BIOLOGY ADJUNCT INSTRUCTOR 07/17/2021 Last Documented On 2 8:10AM ; [facility] Vitamin B12 deficiency Medical Establish ed Patient with Traci Dennison BIOLOGY ADJUNCT INSTRUCTOR 07/17/2021 Last Documented On 2 8:10AM ; [facility] Vitamin D deficiency Medical Established Patient with Traci Dennison BIOLOGY ADJUNCT INSTRUCTOR 07/17/2021 Last Documented On 2 8:10AM ; [facility] Z68.28 - Body mass index [BM I] 28.0-28.9, adult Medical Established Patient with Traci Dennison BIOLOGY ADJUNCT INSTRUCTOR 07/17/2021 Last Documented On 2 8:10AM ; [facility] Allergic rhinitis Telemedicine Establi sted Patient with Traci Dennison BIOLOGY ADJUNCT INSTRUCTOR 07/16/2021 Last Documented On 2 8:23AM ; [facility] Exposure to COVID-19 Telemedicine Establ isted Patient with Traci Dennison BIOLOGY ADJUNCT INSTRUCTOR 04/29/2021 Last Documented On 2 8:02PM ; [facility] Bipolar schizoaffective disorder BH Esta blished Patient with Farrah Jarrett LPCC-S 04/15/2021 Last Documented On 2 1:07PM ; [facility] Anxiety disorder NOS Medical Established Patient with Traci Dennison BIOLOGY ADJUNCT INSTRUCTOR 04/15/2021 Last Documented On 2 9:06AM ; [facility] Assessment of body mass index Medical Es tablished Patient with Traci Dennison BIOLOGY ADJUNCT INSTRUCTOR 04/15/2021 Last Documented On 2 9:06AM ; [facility] Bipolar disorder NOS Medical Established Patient with Traci Dennison BIOLOGY ADJUNCT INSTRUCTOR 04/15/2021 Last Documented On 2 9:06AM ; [facility] Anxiety disorder NOS BH Telebehavioral H ealth with Farrah Jarrett LPCC-S 04/09/2021 Last Documented On 2 9:05AM ; [facility] Bipolar disorder NOS BH Telebehavioral H ealth with Farrah Jarrett LPCC-S 04/09/2021 Last Documented On 2 9:05AM ; [facility] Anxiety disorder NOS Established Patient with Hannah Short LISWS 04/03/2021 Last Documented On 1 7:15PM ; [facility] Bipolar I disorder, most rec ent episode, depressed Established Patient with Hannah Short LISWS 04/03/2021 Last Documented On 1 7:15PM ; [facility] Nicotine dependence Established Patient with Hannah Short LISWS 04/03/2021 Last Documented On 1 7:15PM ; [facility] Nicotine dependence Established Patient with Hannah Short LISWS 04/03/2021 Last Documented On 1 7:15PM ; [facility] Undifferentiated schizophren ia per patient reported history Established Patient with Hannah Short LISWS 04/03/2021 Last Documented On 1 7:15PM ; [facility] A home test was negative Medic al Established Patient with Traci Dennison BIOLOGY ADJUNCT INSTRUCTOR 04/03/2021 Last Documented On 1 8:11PM ; [facility] Assessment of body mass index Medical Es tablished Patient with Traci Dennison BIOLOGY ADJUNCT INSTRUCTOR 04/03/2021 Last Documented On 1 8:11PM ; [facility] Epilepsy, not intractable, w ithout status epilepticus Medical Established Patient with Traci Dennison BIOLOGY ADJUNCT INSTRUCTOR 04/03/2021 Last Documented On 1 8:11PM ; [facility] Mixed affective bipolar diso rder, moderate Medical Established Patient with Traci Dennison BIOLOGY ADJUNCT INSTRUCTOR 04/03/2021 Last Documented On 1 8:11PM ; [facility] Urinary tract infection Medical Establis hed Patient with Traci Dennison [facility] 04/03/2021 Last Documented On 1 8:11PM ; [facility] Visit for: screening for STD Medical Est ablished Patient with Traci Dennison BIOLOGY ADJUNCT INSTRUCTOR 04/03/2021 Last Documented On 1 8:11PM ; [facility] Assessment of visit for: scr eening for human immunodeficiency virus Medical Established Patient with Peggy Thrasher BIOLOGY ADJUNCT INSTRUCTOR 02/14/2021 Last Documented On 1 1:16PM ; [facility] Diabetes Risk Test Score was three score 02/14/2021 Medical Established Patient with Peggy Thrasher BIOLOGY ADJUNCT INSTRUCTOR 02/14/2021 Last Documented On 1 1:16PM ; [facility] Diarrhea Medical Established Patient with Peggy Thrasher [facility] 02/14/2021 Last Documented On 1 1:16PM ; [facility] Nicotine dependence Medical Established Patient with Peggy Thrasher [facility] 02/14/2021 Last Documented On 1 1:16PM ; [facility] Z68.28 - Body mass index [BM I] 28.0-28.9, adult Medical Established Patient with Peggy Thrasher BIOLOGY ADJUNCT INSTRUCTOR 02/14/2021 Last Documented On 1 1:16PM ; [facility] Cough Telemedicine Establisted Patient with Traci Dennison [facility] 01/01/2021 Last Documented On 1 6:31PM ; [facility] Fever Telemedicine Establisted Patient with Traci Dennison [facility] 01/01/2021 Last Documented On 1 6:31PM ; [facility] Z20.822 - Contact with and (suspected) exposure to COVID-19 Telemedicine Establisted Patient with Traci Dennison [facility] 01/01/2021 Last Documented On 1 6:31PM ; [facility] Bipolar I disorder, most rec ent episode, depressed Established Patient with Farrahmatthew Hernandezs LPCC-S 06/03/2020 Last Documented On 1 10:50PM ; [facility] Paranoid schizophrenia per p atient report Established Patient with Farrah Jarrett LPCC-S 06/03/2020 Last Documented On 1 10:50PM ; [facility] Post-traumatic stress disord er per patient report Established Patient with Farrah Jarrett LPCC-S 06/03/2020 Last Documented On 1 10:50PM ; [facility] 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 Patient with Traci Juma BIOLOGY ADJUNCT INSTRUCTOR 06/03/2020 Last Documented On 1 8:25AM ; [facility] Overweight Medical Established Patient with Traci Juma [facility] 06/03/2020 Last Documented On 1 8:25AM ; [facility] Z68.29 - Body mass index [BM I] 29.0-29.9, adult Medical Established Patient with Traci Dennison BIOLOGY ADJUNCT INSTRUCTOR 06/03/2020 Last Documented On 1 8:25AM ; [facility] Anxiety disorder NOS Medical Established Patient with Traci Dennison BIOLOGY ADJUNCT INSTRUCTOR 01/26/2020 Last Documented On 0 7:37PM ; [facility] Bipolar disorder NOS Medical Established Patient with Traci Dennison BIOLOGY ADJUNCT INSTRUCTOR 01/26/2020 Last Documented On 0 7:37PM ; [facility] Infection of tooth Medical Established Patient w ith Traci Dennison BIOLOGY ADJUNCT INSTRUCTOR 01/26/2020 Last Documented On 0 7:37PM ; [facility] Z68.20 - Body mass index [BM I] 20.0-20.9, adult Medical Established Patient with Traci Dennison BIOLOGY ADJUNCT INSTRUCTOR 01/26/2020 Last Documented On 0 7:37PM ; [facility] Bipolar I disorder, most rec ent episode, mixed Established Patient with Hannah Short LISWS 01/08/2020 Last Documented On 0 11:49AM ; [facility] Generalized anxiety disorder Establis hed Patient with Hannah Short LISWS 01/08/2020 Last Documented On 0 11:49AM ; [facility] Diabetes Risk Test Score was one score 01/08/2020 Medical Established Patient with Peggy Anna Marie BIOLOGY ADJUNCT INSTRUCTOR 01/08/2020 Last Documented On 0 1:42PM ; [facility] Overweight Medical Established Patient with Peggy Anna Marie BIOLOGY ADJUNCT INSTRUCTOR 01/08/2020 Last Documented On 0 1:42PM ; [facility] Z68.27 - Body mass index (BM I) 27.0-27.9, adult Medical Established Patient with Peggy Anna Marie BIOLOGY ADJUNCT INSTRUCTOR 01/08/2020 Last Documented On 0 1:42PM ; [facility] Bipolar I disorder, most rec ent episode, mixed Established Patient with Hannah Short LISWS 12/25/2019 Last Documented On 0 6:16PM ; [facility] Generalized anxiety disorder Establis hed Patient with Hannah Short LISWS 12/25/2019 Last Documented On 0 6:16PM ; [facility] Overweight Medical Established Patient with Peggy Thrasher ABENA 12/25/2019 Last Documented On 0 1:54PM ; [facility] Z68.26 - Body mass index (BM I) 26.0-26.9, adult Medical Established Patient with Peggy Thrasher BIOLOGY ADJUNCT INSTRUCTOR 12/25/2019 Last Documented On 0 1:54PM ; [facility] Work Phone: 1(657) 791-849909-21-2023 Progress note* Progress note Date Encounter Last Documented by 12/31/2022 Medical Established Patient Last documented on 01/05/2023; 5:25 AM, Srinivasa Ward CNP; [facility] Active Problems & Conditions - F41.9 - Anxiety Disorder Nos - Anxiety - J45.30 - Asthma Mild Persistent Uncomplicated - S03.00XA - Dislocation of jaw, unspecified side, initial encounter - TMJ (dislocation of temporomandibular joint) - G40.909 - Epilepsy Not Intractable Without Status Epilepticus - Epilepsy - K29.50 - Gastritis Chronic Without Hemorrhage - per colonoscopy on 03/19/2021 - Hemorrhoids - per colonoscopy 03/2021 - K57.30 - Intestinal Disorder Diverticulosis - per colonoscopy 03/2021 - F25.0 - Schizoaffective Disorder, Bipolar - SEE_NOTE - See Note: - Smoker within last 12 months - M19.90 - Unspecified osteoarthritis, unspecified site - Arthritis Chief Complaint The Chief Complaint is: 1 month Asthma check, Referred Here Not referred by urgent care clinic and not the emergency room. Prior encounters Gastro - [facility]. - Data to be reviewed: no clinical lab tests History of Present Illness Abrahan Woods is a 32 year old female. - Allergy list reviewed - Reviewed Medications - test - would not like a test Patient presents for asthma follow up States she feels asthma is better controlled States that mood is stable but does have some situational stress which is affecting her mood Has an infected boil on left lower abdomen Current Medication - Amitriptyline HCl 50 MG Oral Tablet Take one tablet daily at bedtime, 30 days, 5 refills - busPIRone HCl 15 MG Oral Tablet take one tablet three times daily, 30 days, 5 refills - Zuaggdfdbb-UIJD-Ipharhsx 50-325-40 MG Oral Tablet take 1 tablet by mouth twice daily as needed for headache, 30 days, 5 refills - Dicyclomine HCl 10 MG Oral Capsule, conventional take 1 capsule by mouth three times daily, 30 days, 1 refills - Fluticasone Propionate 50 MCG/ACT Nasal Suspension inhale 1 spray into each nostril 2 times per day., 30 days, 5 refills - Ibuprofen 800 MG Oral Tablet 14 days, 0 refills - Omeprazole 40 MG Oral Capsule, delayed-release Capsule Delayed Release one capsule twice daily per Mirza Amanda, 0 days, 0 refills - Pantoprazole Sodium 40 MG Oral Tablet Delayed Release one tablet twice daily per Mirza Amanda, 0 days, 0 refills - Prazosin HCl 1 MG Oral Capsule take one capsule by mouth at bedtime for ptsd nightmares, 30 days, 5 refills - Symbicort 80-4.5 MCG/ACT Inhalation Aerosol Inhale 2 puffs by mouth twice a day (rinse mouth after use), 30 days, 2 refills - Ventolin HFA 108 (90 Base) MCG/ACT Inhalation Aerosol Solution inhale 2 puffs by mouth into lungs every 4 hours as needed for shortness of breath, 30 days, 5 refills Past Medical/Surgical History Reported: Medical: No previous hospitalizations. : Not planning to have a baby in the next 12 months. Diagnoses: Asthma. Ovarian cyst. Keratitis follicularis (Darier's disease). Epilepsy. Schizophrenia Bipolar disorder NOS Depression. Post-traumatic stress disorder. Anxiety disorder NOS Procedural: - Complete colonoscopy Surgical: - Tonsillectomy - Tonsillectomy with adenoidectomy - General surgery ablation EGD Colonoscopy gallbladder - Hernia repair - Hysterectomy 10/29/2022 - Tubal ligation Social History Environmental Exposure: Secondhand cigarette smoke exposure. Tobacco use: Cigarette smoking Light (1-10/day) and using electronic cigarettes/vaping. Alcohol: A social drinker. Drug Use: Not using drugs denied by patient. Sexual: Denied sexual activity, sexual orientation Straight (not lesbian or munoz), and gender identity Female. Allergies - Tracy - Egg - Fish - Latex - Morphine Derivatives Reaction: Nausea - NO KNOWN DRUG ALLERGIES - -No Known Food Allergies Family History Father 2009 Mother is alive Maternal: Cardiovascular disorder Asthma Oncologic disorder Overain Review Of Systems Systemic: No systemic symptoms. Head: No headache. Otolaryngeal: No ear symptoms, no nasal symptoms, and no throat symptoms. Cardiovascular: No chest pain or discomfort. Pulmonary: No pulmonary symptoms. Gastrointestinal: No gastrointestinal symptoms. Genitourinary: No dysuria. Musculoskeletal: No musculoskeletal symptoms. Neurological: No neurological symptoms. Psychological: Psychological symptoms. Skin: Skin symptoms. Physical Findings - Vitals taken 12/31/2022 11:55 am BP-Sitting L108/76 mmHg BP Cuff SizeRegular Pulse Rate-Ufkmblm92 bpm Temp-Oral98.1 F Kocfvf01 in Glwrzr776 lbs Body Mass Index32.9 kg/m2 Body Surface Area1.7 m2 Oxygen Hqqtnnsnvk07 % Vital Signs: - Systolic blood pressure < 130 mmHg. - Diastolic Blood Pressure < 80 mmHg. General Appearance: - Awake. - Alert. - In no acute distress. Eyes: General/bilateral: Pupils: - PERRLA. Lungs: - Respiration rhythm and depth was normal. - Clear to auscultation. Cardiovascular: Heart Rate And Rhythm: - Normal. Heart Sounds: - Normal. Musculoskeletal System: General/bilateral: - Normal movement of all extremities. Neurological: - Oriented to time, place, and person. Psychiatric: - Expression of emotions finding was normal. Skin: - General appearance was normal, right lower abdomen has boil with redness and inflammation approx 1cm x 1cm. Tests Laboratory-based Chemistry: Other Laboratory Tests: Screening for sexually transmitted infections was not performed. Laboratory Studies: Pulmonary Function Tests: Value Green Range 344 Best Peak Flow 430 Low Yellow Range 215 Red Range 215 High Yellow Range 344 Estimated Peak Flow 376 l/min Percent of Estimated Peak Flow 114% Educational Testing: Questionnaires Asthma Control Test (ACT): ValueDate Asthma Control Test (ACT), adult total score 13.12/31/2022 In the Past 4 Weeks, Asthma kept me from getting much done at work/school/work? (3 Pts) Some of the Time, During the past 4 weeks, how often have you had shortness of breath? (2 Pts) Once a day, During the past for 4 weeks, asthma symptoms woke me up at night or earlier than (2 Pts) 2 or 3 nights a week, During the past 4 weeks, have used rescue inhaler or nebulizer medication (3 Pts) 2 or 3 times per week, and Asthma control during the past 4 weeks (3 Pts) Somewhat controlled. Assessment - Body mass index [Body mass index [BMI] 32.0-32.9, adult] - Uncomplicated mild persistent asthma [Mild persistent asthma, uncomplicated] Vaccinations - Did not receive dose of Reported: Patient has not received the Covid Vaccine Counseling/Education - Does not want to stop using current contraception - Wishing to stop smoking Discussed Quit Line resources - Wishing to stop using electronic cigarettes/vaping - Discussed nutritional needs teach healthy choices including fruits and vegetables - Patient education about a proper diet - Not requesting contraception - Discussed concerns about exercise: promote physical activity Will keep medication the same Plan StartCited- Allergic rhinitis, unspecified ZyrTEC Allergy 10 MG tablet Take one tablet daily ( do not take with loratadine), 30 days, 5 refills EndCited StartCited- Chronic migraine w/o aura, not intractable, w/o stat migr Ubrelvy 50 MG tablet Take one tablet as needed for migraine, may repeat on tablet after 2 hours x1 dose ( max of 2 tablets in 24 hours), 10 days, 0 refills EndCited StartCited- Localized swelling, mass and lump, trunk Doxycycline Hyclate 100 MG capsule Take one tablet every 12 hours ( two times a day) for 7 days, 7 days, 0 refills EndCited Notes - Patient is not interested in the COVID-19 vaccination at this time. Advance Directives - Living Will - Declined to Provide Advance Directive [facility]08-21-2023 History general Narrative - Reported Includes: Medical History in patient's chart Description Last Updated Not planning to have a baby in the next 12 months 11/30/2022 Last Documented On 3 12:28PM ; [facility] History of anxiety disorder NOS 07/18/19 22 Last Documented On 2 8:10AM ; [facility] No previous hospitalizations 04/03/2021 Last Documented On 1 8:11PM ; [facility] History of complete colonoscopy 04/03/20 Last Documented On 1 8:11PM ; [facility] Epilepsy 12/25/2019 Last Documented On 0 1:54PM ; [facility] 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 Last Documented On 0 1:54PM ; [facility] Ovarian cyst 12/25/2019 Last Documented On 0 1:54PM ; [facility] Post-traumatic stress disorder 0 Last Documented On 0 1:54PM ; [facility] History of asthma 12/25/2019 Last Documented On 0 1:54PM ; [facility] History of schizophrenia 12/25/2019 Last Documented On 0 1:54PM ; [facility] History of bipolar disorder NOS 12/25/19 Last Documented On 0 1:54PM ; [facility] History of depression 12/25/2019 Last Documented On 0 1:54PM ; [facility] History of psychiatric disorders 020 Last Documented On 0 1:54PM ; [facility] Work Phone: 1(805) 370-769408-21-2023 History general Narrative - Reported Includes: Medical History in patient's chart Description Last Updated Not planning to have a baby in the next 12 months 11/30/2022 Last Documented On 3 12:28PM ; [facility] History of anxiety disorder NOS 07/18/19 22 Last Documented On 2 8:10AM ; [facility] No previous hospitalizations 04/03/2021 Last Documented On 1 8:11PM ; [facility] History of complete colonoscopy 04/03/20 Last Documented On 1 8:11PM ; [facility] Epilepsy 12/25/2019 Last Documented On 0 1:54PM ; [facility] 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 Last Documented On 0 1:54PM ; [facility] Ovarian cyst 12/25/2019 Last Documented On 0 1:54PM ; [facility] Post-traumatic stress disorder 0 Last Documented On 0 1:54PM ; [facility] History of asthma 12/25/2019 Last Documented On 0 1:54PM ; [facility] History of schizophrenia 12/25/2019 Last Documented On 0 1:54PM ; [facility] History of bipolar disorder NOS 12/25/19 20 Last Documented On 0 1:54PM ; [facility] History of depression 12/25/2019 Last Documented On 0 1:54PM ; [facility] History of psychiatric disorders 020 Last Documented On 0 1:54PM ; [facility] Work Phone: [phone]) 976-822308-21-2023 History general Narrative - Reported Includes: Medical History in patient's chart Description Last Updated Not planning to have a baby in the next 12 months 11/30/2022 Last Documented On 3 12:28PM ; [facility] History of anxiety disorder NOS 07/18/19 22 Last Documented On 2 8:10AM ; [facility] No previous hospitalizations 04/03/2021 Last Documented On 1 8:11PM ; [facility] History of complete colonoscopy 04/03/20 21 Last Documented On 1 8:11PM ; [facility] Epilepsy 12/25/2019 Last Documented On 0 1:54PM ; [facility] 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 Last Documented On 0 1:54PM ; [facility] Ovarian cyst 12/25/2019 Last Documented On 0 1:54PM ; [facility] Post-traumatic stress disorder 0 Last Documented On 0 1:54PM ; [facility] History of asthma 12/25/2019 Last Documented On 0 1:54PM ; [facility] History of schizophrenia 12/25/2019 Last Documented On 0 1:54PM ; [facility] History of bipolar disorder NOS 12/25/19 20 Last Documented On 0 1:54PM ; [facility] History of depression 12/25/2019 Last Documented On 0 1:54PM ; [facility] History of psychiatric disorders 020 Last Documented On 0 1:54PM ; [facility] Work Phone: [phone]) 230-998608-21-2023 History general Narrative - Reported Includes: Medical History in patient's chart Description Last Updated Not planning to have a baby in the next 12 months 11/30/2022 Last Documented On 3 12:28PM ; [facility] History of anxiety disorder NOS 07/18/19 22 Last Documented On 2 8:10AM ; [facility] No previous hospitalizations 04/03/2021 Last Documented On 1 8:11PM ; [facility] History of complete colonoscopy 04/03/20 21 Last Documented On 1 8:11PM ; [facility] Epilepsy 12/25/2019 Last Documented On 0 1:54PM ; [facility] 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 Last Documented On 0 1:54PM ; [facility] Ovarian cyst 12/25/2019 Last Documented On 0 1:54PM ; [facility] Post-traumatic stress disorder 0 Last Documented On 0 1:54PM ; [facility] History of asthma 12/25/2019 Last Documented On 0 1:54PM ; [facility] History of schizophrenia 12/25/2019 Last Documented On 0 1:54PM ; [facility] History of bipolar disorder NOS 12/25/19 20 Last Documented On 0 1:54PM ; [facility] History of depression 12/25/2019 Last Documented On 0 1:54PM ; [facility] History of psychiatric disorders 020 Last Documented On 0 1:54PM ; [facility] Work Phone: [phone] Progress note* Progress note Date Encounter Last Documented by 11/30/2022 Medical Established Patient Last documented on 11/30/2022; 12:28 PM, Srinivasa Ward CNP; [facility] Active Problems & Conditions - F41.9 - Anxiety Disorder Nos - Anxiety - J45.30 - Asthma Mild Persistent Uncomplicated - S03.00XA - Dislocation of jaw, unspecified side, initial encounter - TMJ (dislocation of temporomandibular joint) - G40.909 - Epilepsy Not Intractable Without Status Epilepticus - Epilepsy - K29.50 - Gastritis Chronic Without Hemorrhage - per colonoscopy on 03/19/2021 - Hemorrhoids - per colonoscopy 03/2021 - K57.30 - Intestinal Disorder Diverticulosis - per colonoscopy 03/2021 - F25.0 - Schizoaffective Disorder, Bipolar - SEE_NOTE - See Note: - Smoker within last 12 months - M19.90 - Unspecified osteoarthritis, unspecified site - Arthritis Chief Complaint The Chief Complaint is: Issues with incontinence, anual wellness. Referred Here Not referred by urgent care clinic. Referred by emergency room. Prior encounters gastro, obgyn. - Data to be reviewed: clinical lab tests History of Present Illness Abrahan Woods is a 32 year old female. - Allergy list reviewed - Reviewed Medications Patient presents for wellness Recently had a hysterectomy Has had more incontinence since surgery Has struggled with incontinence for years, has gone to physical therapy in the past Has an urologist appt in December Has gotten discharged from psychiatry and needs medication refilled Mood is well controlled on medication Has been using albuterol daily was on symbicort in the past Current Medication - Amitriptyline HCl 50 MG Oral Tablet once daily at bedtime per Erna Correa, 0 days, 0 refills - busPIRone HCl 15 MG Oral Tablet take one tablet three times daily per erna correa, 0 days, 0 refills - Donyrwwixl-HRMY-Hbieujhg 50-325-40 MG Oral Tablet take 1 tablet by mouth twice daily as needed for headache, 30 days, 5 refills - Dicyclomine HCl 10 MG Oral Capsule, conventional take 1 capsule by mouth three times daily, 30 days, 1 refills - Fluconazole 150 MG Oral Tablet one tablet for 1 dose per Valentin Gallego, 0 days, 0 refills - Fluticasone Propionate 50 MCG/ACT Nasal Suspension inhale 1 spray into each nostril 2 times per day., 30 days, 5 refills - Ibuprofen 800 MG Oral Tablet 14 days, 0 refills - Loratadine 10 MG Oral Tablet take 1 tablet by mouth daily, 30 days, 5 refills - metroNIDAZOLE 500 MG Oral Tablet 7 days, 0 refills - Omeprazole 40 MG Oral Capsule, delayed-release Capsule Delayed Release one capsule twice daily per Mirza Amanda, 0 days, 0 refills - oxyCODONE-Acetaminophen 5-325 MG Oral Tablet 7 days, 0 refills - Prazosin HCl 1 MG Oral Capsule take one capsule by mouth at bedtime for ptsd nightmares per erna correa, 0 days, 0 refills Past Medical/Surgical History Reported: Medical: No previous hospitalizations. : Not planning to have a baby in the next 12 months. Diagnoses: Asthma. Ovarian cyst. Keratitis follicularis (Darier's disease). Epilepsy. Schizophrenia Bipolar disorder NOS Depression. Post-traumatic stress disorder. Anxiety disorder NOS Procedural: - Complete colonoscopy Surgical: - Tonsillectomy - Tonsillectomy with adenoidectomy - General surgery ablation EGD Colonoscopy gallbladder - Hernia repair - Hysterectomy 10/29/2022 - Tubal ligation Social History Environmental Exposure: Secondhand cigarette smoke exposure. Tobacco use: Cigarette smoking Light (1-10/day) and using electronic cigarettes/vaping. Alcohol: A social drinker. Drug Use: Using marijuana. Sexual: Sexual orientation Straight (not lesbian or munoz) and gender identity Female. Allergies - Tracy - Egg - Fish - Latex - Morphine Derivatives Reaction: Nausea - NO KNOWN DRUG ALLERGIES - -No Known Food Allergies Family History Father 2010 Mother is alive Maternal: Cardiovascular disorder Asthma Oncologic disorder Overain Review Of Systems Systemic: No systemic symptoms. Head: No headache. Otolaryngeal: No ear symptoms, no nasal symptoms, and no throat symptoms. Cardiovascular: No chest pain or discomfort. Pulmonary: No pulmonary symptoms. Gastrointestinal: No gastrointestinal symptoms. Genitourinary: No dysuria. Musculoskeletal: No musculoskeletal symptoms. Neurological: No neurological symptoms. Psychological: Psychological symptoms. Skin: No skin symptoms. Physical Findings - Vitals taken 11/30/2022 09:05 am BP-Titafua252/77 mmHg BP Cuff SizeRegular Pulse Rate-Eiskidl53 bpm Temp-Oral98.4 F Zaltpq40 in Tbwgar681 lbs 12.8 oz Body Mass Index33.3 kg/m2 Body Surface Area1.7 m2 Oxygen Wkbnlnazwz36 % Vital Signs: - Systolic blood pressure < 130 mmHg. - Diastolic Blood Pressure < 80 mmHg. General Appearance: - Awake. - Alert. - In no acute distress. Eyes: General/bilateral: Pupils: - PERRLA. Lungs: - Respiration rhythm and depth was normal. - Clear to auscultation. Cardiovascular: Heart Rate And Rhythm: - Normal. Heart Sounds: - Normal. Musculoskeletal System: General/bilateral: - Normal movement of all extremities. Neurological: - Oriented to time, place, and person. Psychiatric: - Expression of emotions finding was normal. Skin: - General appearance was normal. Tests Blood Analysis: Hemoglobin Studies: ValueDate Blood hemoglobin A1c 5.2%11/30/2022 Hemoglobin A1c level < 7.0%. Blood Endocrine Laboratory Tests: Value Blood glucose level by fingerstick 95 mg/dl Laboratory Studies: Pulmonary Function Tests: Value Green Range 288.0 Best Peak Flow 360 Low Yellow Range 180.0 Red Range 180.0 High Yellow Range 288.0 Estimated Peak Flow 376 l/min Percent of Estimated Peak Flow 96.0% Educational Testing: In the Past 4 Weeks, Asthma kept me from getting much done at work/school/work? (2 Pts) Most of the Time, During the past 4 weeks, how often have you had shortness of breath? (2 Pts) Once a day, During the past for 4 weeks, asthma symptoms woke me up at night or earlier than (3 Pts) Once a week, During the past 4 weeks, have used rescue inhaler or nebulizer medication (2 Pts) 1 or 2 times per day, and Asthma control during the past 4 weeks (2 Pts) Poorly controlled. Assessment - Visit for: routine adult H&P with abnormal findings [Encounter for general adult medical examination with abnormal findings] - Body mass index [Body mass index [BMI] 33.0-33.9, adult] - Diabetes Risk Test Score was four score 11/30/2022 [Encounter for screening for diabetes mellitus] - Uncomplicated mild persistent asthma [Mild persistent asthma, uncomplicated] - Anxiety disorder NOS [Anxiety disorder, unspecified] Test Conclusions Asthma Control Test (ACT), adult total score was 11.0 11/30/2022. Therapy - Patient refused flu vaccine. Discussed benefits of flu vaccine with Patient. - SBIRT Full Screen Neg. Vaccinations - Did not receive dose of Reported: Patient has not received the Covid Vaccine Counseling/Education - Wishing to stop smoking Discussed Quit Line resources - Wishing to stop using electronic cigarettes/vaping - Discussed nutritional needs teach healthy choices including fruits and vegetables - Patient education about a proper diet - Patient education about an asthma action plan - Discussed concerns about exercise: promote physical activity Will restart symbicort Follow up in one month for asthma Plan StartCited- Allergic rhinitis, unspecified Fluticasone Propionate 50 MCG/ACT gram inhale 1 spray into each nostril 2 times per day., 30 days, 5 refills Loratadine 10 MG tablet take 1 tablet by mouth daily, 30 days, 5 refills EndCited StartCited- Anxiety disorder, unspecified Amitriptyline HCl 50 MG tablet Take one tablet daily at bedtime, 30 days, 5 refills busPIRone HCl 15 MG tablet take one tablet three times daily, 30 days, 5 refills Prazosin HCl 1 MG capsule take one capsule by mouth at bedtime for ptsd nightmares, 30 days, 5 refills EndCited StartCited- Mild persistent asthma, uncomplicated Ventolin HFA 108 (90 Base) MCG/ACT gram inhale 2 puffs by mouth into lungs every 4 hours as needed for shortness of breath, 30 days, 5 refills Symbicort 80-4.5 MCG/ACT gram Inhale 2 puffs by mouth twice a day (rinse mouth after use), 30 days, 2 refills EndCited Notes - Patient is not interested in the COVID-19 vaccination at this time. Advance Directives - Living Will - Declined to Provide Advance Directive User Defined 1 She has not had 4 or more drinks in a day within the past year. Yes (1 point) [Pre-DM]: Patient has been diagnosed with gestational diabetes or given to a baby weighing 9 pounds or more, Yes (1 point) [Pre-DM]: Yes, mother, father, sister or brother has DM, No (0 points) [Pre-DM]: No, patient has not been diagnosed with high blood pressure, and Yes (0 point) [Pre-DM]: Yes, physically active. No misuse of prescription only drugs and not illicit. Woman (0 Points) [Pre-DM]. DONG-2 score was two 11/30/2022, DONG-7 score [DONG-7] Feeling nervous, anxious or on edge? + 2 pt : More than half the days, [DONG-7] Not being able to stop or control worrying? + 0 pt : Not at all, Patient Health Questionnaire 9-Item total score was three 11/30/2022, [PHQ-9-1] Little interest or pleasure in doing things? + 1 pt : Several days, [PHQ-9-2] Feeling down, depressed, or hopeless? + 1 pt : Several days, [PHQ-9-3] Trouble falling or staying asleep or sleeping too much? + 0 pt : Not at all, [PHQ-9-4] Feeling tired or having little energy? + 0 pt : Not at all, [PHQ-9-5] Poor appetite or overeating? + 0 pt : Not at all, [PHQ-9-6] Feeling bad about yourself-or that you are a failure + 0 pt : Not at all, [PHQ-9-7] Trouble concentrating on things such as reading the newspaper + 1 pt : Several days, [PHQ-9-8] Moving or speaking so slowly that other people have noticed. + 0 pt : Not at all, [PHQ-9-9] Thoughts that you would be better off or hurting yourself? + 0 pt : Not at all, and Less than 40 years (0 points) [Pre-DM]. Health [facility]08-21-2023 Instructions Includes: Instructions for all patient encounters Instructions to patient Intervention and counseling on cessation of tobacco use, 3-10 minutes Last Documented On 0 1:15PM ; [facility] Education and Decision Aids were provided during visit for: Discussed nutritional needs teach healthy choices including fruits and vegetables Last Documented On 3 9:09AM ; [facility] Patient education about a pr oper diet Last Documented On 3 9:09AM ; [facility] Patient education about an a sthma action plan Last Documented On 3 9:44AM ; [facility] Discussed concerns about exe rcise : promote physical activity ~ ~Will restart symbicort ~ ~Follow up in one month for asthma Last Documented On 3 12:28PM ; [facility] Discussed nutritional needs teach healthy choices including fruits and vegetables Last Documented On 2 10:58AM ; [facility] Patient education about a pr oper diet Last Documented On 2 10:58AM ; [facility] Discussed concerns about exe rcise : promote physical activity Last Documented On 2 10:58AM ; [facility] Discussed nutritional needs teach healthy choices including fruits and vegetables Last Documented On 2 11:41AM ; [facility] Patient education about a pr oper diet Last Documented On 2 11:41AM ; [facility] Discussed concerns about exe rcise : promote physical activity Last Documented On 2 11:41AM ; [facility] offered active listening and supportive feedback; normalized emotions and feelings, also provided pt time to process any current stressors ~[facility] discussed benefits of counseling and supported pt in following through with scheduled appt. ~[facility] encouraged pt to continue to make time to implement self-care regimen to assist in improving their mood Last Documented On 2 2:29PM ; [facility] Provided supportive listenin g and reflective feedback; monitored mood, explored symptoms, assessed functioning. ~Discussed medication use/compliance. ~Promoted use of healthy coping mechanisms and positive support, as needed Last Documented On 2 1:25PM ; [facility] Discussed nutritional needs teach healthy choices including fruits and vegetables Last Documented On 2 12:54PM ; [facility] Patient education about a pr oper diet Last Documented On 2 12:54PM ; [facility] Discussed concerns about exe rcise : promote physical activity Last Documented On 2 12:54PM ; [facility] Discussed nutritional needs teach healthy choices including fruits and vegetables Last Documented On 2 11:39AM ; [facility] Patient education about a pr oper diet Last Documented On 2 11:39AM ; [facility] Discussed concerns about exe rcise : promote physical activity Last Documented On 2 11:39AM ; [facility] Discussed nutritional needs teach healthy choices including fruits and vegetables Last Documented On 2 10:29AM ; [facility] Patient education about a pr oper diet Last Documented On 2 10:29AM ; [facility] Discussed concerns about exe rcise : promote physical activity Last Documented On 2 10:29AM ; [facility] Discussed current self-care methods/coping skills. ~Validated and normalized patient's feelings while assisting process recent events. ~Discussed ongoing counseling. ~Discussed lifestyle changes to address chronic illness. ~Supported patient's personal health goals Last Documented On 2 8:50PM ; [facility] Discussed nutritional needs teach healthy choices including fruits and vegetables Last Documented On 2 11:15AM ; [facility] Patient education about a pr oper diet Last Documented On 2 11:15AM ; [facility] Discussed concerns about exe rcise : promote physical activity Last Documented On 2 11:15AM ; [facility] Discussed current self-care methods/coping skills. ~Validated and normalized patient's feelings while assisting process recent events. ~Discussed ongoing mental health services. ~Discussed lifestyle changes to address chronic illness. ~Supported patient's personal health goals. ~ ~Reports feeling better since beginning new meds. Also voices and visual hallucinations have stopped; reports voices were not commanfing Last Documented On 2 8:54PM ; [facility] offered active and suppo rtive listening and normalized emotions and feelings. ~[facility] discussed with patient and significant other in the room with her crisis resources. Patient is agreeable to contacting one of the crisis resources should moods worsen or call 911 or go to the Emergency Room. Patient reports that she can also speak with significant others Mom or go to her kids fathers house. ~[facility] and PCP discussed plan to follow-up with psychiatry and counseling and a new referral being sent to [facility]. If patient is not accepted back as a patient with Dr. Dickerson, will look into other resources Last Documented On 1 7:15PM ; [facility] Discussed nutritional needs teach healthy choices including fruits and vegetables Last Documented On 1 1:18PM ; [facility] Patient education about a pr oper diet Last Documented On 1 1:18PM ; [facility] Discussed concerns about exe rcise : promote physical activity Last Documented On 1:18PM ; [facility] Discussed nutritional needs teach healthy choices including fruits and vegetables Last Documented On 1 10:37AM ; [facility] Patient education about a pr oper diet Last Documented On 1 10:37AM ; [facility] Discussed concerns about exe rcise : promote physical activity Last Documented On 1 10:37AM ; [facility] Explored current symptoms an d stressors. Educaated patient re importance of counseling and provided brief review of EMDR treatment. ~Encouraged patient to engage in ongoing counseling. ~ Last Documented On 1 10:50PM ; [facility] Discussed nutritional needs teach healthy choices including fruits and vegetables Last Documented On 1 6:53PM ; [facility] Patient education about a pr oper diet Last Documented On 1 6:53PM ; [facility] Discussed concerns about exe rcise : promote physical activity Last Documented On 1 6:53PM ; [facility] provided active listenin g, support and helped patient process through current symptoms and stressors related to mood and irritability. ~[facility] discussed coping skills that patient has tried as well as discussed potential benefit of counseling. ~ ~ Last Documented On 0 11:49AM ; [facility] Discussed nutritional needs teach healthy choices including fruits and vegetables Last Documented On 0 1:15PM ; [facility] Patient education about a pr oper diet Last Documented On 0 1:15PM ; [facility] Patient education about a pr oper diet Last Documented On 0 1:33PM ; [facility] Patient education about meal planning Last Documented On 0 1:33PM ; [facility] Education about changing eat ing habits Last Documented On 0 1:33PM ; [facility] Patient education about high fiber diet Last Documented On 0 1:33PM ; [facility] Patient education about low fat diet Last Documented On 0 1:33PM ; [facility] Patient education about low cholesterol diet Last Documented On 0 1:33PM ; [facility] Patient education about low carbohydrate diet Last Documented On 0 1:33PM ; [facility] Patient education about high protein diet Last Documented On 0 1:33PM ; [facility] Discussed concerns about exe rcise : promote physical activity Last Documented On 0 1:15PM ; [facility] provided active listenin g, support and helped patient process through current symptoms and stressors due to pain, loss of work and low frustration tolerance. ~[facility] discussed coping skills and supports that patient can implement inclduing meditation, mindfulness, and deep breathing activities. [facility] provided resources to patient to work on implementing. ~[facility] discussed with patient re-establishing care for therapy and provided patient with resource list. ~ Last Documented On 0 6:15PM ; [facility] Discussed nutritional needs teach healthy choices including fruits and vegetables Last Documented On 0 1:12PM ; [facility] Patient education about a pr oper diet Last Documented On 0 1:12PM ; [facility] Patient education about a pr oper diet Last Documented On 0 1:46PM ; [facility] Patient education about meal planning Last Documented On 0 1:46PM ; [facility] Education about changing eat ing habits Last Documented On 0 1:46PM ; [facility] Patient education about high fiber diet Last Documented On 0 1:46PM ; [facility] Patient education about low fat diet Last Documented On 0 1:46PM ; [facility] Patient education about low cholesterol diet Last Documented On 0 1:46PM ; [facility] Patient education about low carbohydrate diet Last Documented On 0 1:46PM ; [facility] Patient education about high protein diet Last Documented On 0 1:46PM ; [facility] Discussed concerns about exe rcise : promote physical activity Last Documented On 0 1:12PM ; [facility] Work Phone: 1(694) 938-583102-27-2023 Hospital Discharge instructions* Discharge Instructions* Serenity Will DO - 06/08/2022 12:32 AM EST Okay to start with small sips of fluid, if tolerating this and please add food that is gentle on your stomach including bananas, rice, applesauce, toast. If tolerating this you can add back to your regular diet. Use Zofran for any persistent nausea or vomiting. Return to the ER if vomiting is not controlled. You may continue to have additional episodes of diarrhea. But it should get less and less. Follow-up with your primary care provider in 2 to 3 days. documented [facility] Work Phone: [phone]) 480-602201-10-2023 NoteThis is a Telehealth Appointment *This visit was conducted via Telehealth with real time interactive synchronized audio and video communication. This was performed due to the current COVID-19 pandemic in order to minimize exposure to both patients and staff. The patient verbally consented to treatment. The patient understands their rights, the HIPAA risks and that they will be charged accordinglyfor the services rendered. The patient was seen via telemedicine while they were at: _ Chief Complaint Patient presents for post op procedure. History of Present Illness 31 year old female, patient of Mirza Amanda CNP; Srinivasa Ward CNP. The patient was seen via telemedicine while they were at: home Patient presented with post-operative cholecystectomy for RUQ pain and gallstones. The procedure was laparoscopic. The date of procedure was 04/07/2022. Patient states pain is well controlled, not taking narcotics, has just been using Tylenol. Reports still has pain meds left over, she stopped early to help avoid constipation. Patient is eating well and denies nausea, diarrhea. Reports occasionalnausea. Reports some constipation post op but this is resolving with coffee each morning as well asstool softeners, suppositories, lactulose. Denies any fevers or chills. Voiding spontaneously. She saw urology yesterday- started on bland diet. Incisions healing well, denies drainage, reports scabshave already fallen off and appear to be healing well. Eager to get back to work. Eating pretty well. Reports that overall she feels better. Reports some typical incisional pain but feels that the surgery did help with her symptoms. Still feels like too early to know too well if symptoms have resolved. Findings: No evidence of gallstones [1] Diagnosis ( Auth (Verified) ) Gallbladder, cholecystectomy: Benign gallbladder. [2] Last Note (03/17/2022): Patient presents with RUQ pain that is constant. Reports that she has US in [place] which showed GB stones. [place] is the location she had this performed. Through the ED. Specific triggers are eating and drinking. Pain does continue to radiate to her back and into her shoulder. HIDA obtained. Ejection Fraction 89%. Reports that when injected with CCK it replicated RUQ pain, nausea. Reports thatshe has been seen through the ED in [place] as well and as told to have her GB out. Patient had recent colonoscopy/EGD with Dr. Razo on 03/19/2021. Findings include: diverticulosis, small internal and external hemorrhoids and anal hypertrophic anal papillae. Patient advised to repeat X 5 years. Negative for celiac disease, colitis and mild chronic gastritis. Patient was advised by GI to continue with Omeprazole 40 mg twice daily, dicyclomine 10 mg 4 times daily and Zofran as needed. Patient here for evaluation. Reports bowels move more loosely when she has flares, nausea, has Zofran for this. She has vomited bile during a flare. Reports triggers include really anything she eats at this point. Denies GERD type symptoms currently as she is on the PPI which helps. She reports that the Bentyl isn't helping as much as she though it would. As of today no fevers, chills, N/V. With waxing and waning of symptoms RUQ Pain after eating. Associated diarrhea N/V with flares. [3] Review of Systems Constitutional: No fevers, chills, sweats, weight loss or weight gain Respiratory: No shortness of breath, cough Cardiovascular: No chest pain, palpitations, syncope, no angina, no atrial fibrillation Gastrointestinal: No nausea, vomiting, diarrhea, no swallowing difficulties Liver: No jaundice, hepatitis Genitourinary: No hematuria, no kidney problems Hematologic: Never been transfused, no bleeding disorders Neuro: Denies strokes, TIA, seizures As reviewed in the HPI. All other systems reviewed are negative or normal. Physical Exam Vitals & Measurements Estimated Temperature: no chills, 97F BP: 113/74 Height: 147cm Weight: 70.1kg General: No acute distress. Normally conversant Eyes: Normal conjunctiva. Round and symmetric pupils. ENT: External ear and nasal structures normal. Hearing grossly intact. No nasal discharge. Neck: Neck appears supple. No visible masses or thyromegaly. Respiratory: Respirations are non-labored. No wheezing or stridor noted. Skin: No visible rashes or ulcers. Psych: Alert and oriented. Cooperative with appropriate mood and affect, normal judgment. CV: No extremity edema or cyanosis noted MSK: Normal ambulation. Normal upper and lower extremity range of motion. Neuro: No focal deficits noted. CNNs II-XII are grossly intact. Assessment/Plan 1. S/P cholecystectomy doing well Call with questions, concerns, changes in symptoms. fu prn will have her return to work as of 04/22/22, no lifting >20# until 6 weeks post op- would like work slip emailed if possible [email or web address] Time Spent with the Patient I have personally spent [20] minutes on this date, directly related to today's patien (more contentnot included)...[facility]12-27-2022 NoteClinical Information Procedure: Laparoscopic Cholecystectomy Pre-operative diagnosis: Right Upper Quadrant Pain SP Specimen A Gallbladder Gross Description Received in formalin labeled 'gallbladder' is a previously opened gallbladder measuring 7.0 x 2.0 x1.5 cm. The serosa is light masterson. Calculi are not present in the gallbladder or in the container. The mucosa is red-masterson. The wall measures 0.2 cm in maximum thickness. The cystic duct margin and a section from the neck are submitted in cassette A1. Sections from the fundus are submitted in cassette A2. Microscopic Description Slides are reviewed. Diagnosis Gallbladder, cholecystectomy: Benign gallbladder. [id number] Jackeline Keita MD PhD (Electronically signed by) Verified: 04/09/22 17:02[facility] InstituteComment on above:Performed By: #### SPR #### [facility] (DEFAULT) [address], [place] [id number] History of Present illness Narrative* Erna Orozco RN - 02/19/2022 11:00 AM EST Patient instructed on extended rn cardiac cath indications and use. Diary sent with patient. documented in this encounterBON [facility] [employer] Work Phone: [phone]) 360-614510-13-2022 Evaluation note Includes: Assessments for all patient encounters Findings Encounter Date [Body mass index [BMI] 30.0- 30.9, adult] assessment of body mass index Medical Established Patient with Srinivasa Ward [facility] 01/22/2022 Dysuria Medical Established Patient with Srinivasa Ward [facility] 01/22/2022 Bipolar schizoaffective disorder BH Esta blished Patient with Ina Díaz [facility] 12/11/2021 Assessment of body mass inde x [Body mass index [BMI] 26.0-26.9, adult] Medical Established Patient with Srinivasa Ward [employer] 12/11/2021 Bipolar schizoaffective disorder BH Esta blished Patient with Ina Díaz [facility] 11/25/2021 Anxiety disorder NOS Medical Established Patient with Traic Dennison [facility] 11/25/2021 Urinary tract infection Medical Establis hed Patient with Traci Dennison [employer] 11/25/2021 Z68.27 - Body mass index [BM I] 27.0-27.9, adult Medical Established Patient with Traci Dennison [employer] 11/25/2021 Anxiety disorder NOS Medical Established Patient with Traci Dennison [employer] 08/13/2021 Assessment of body mass index Medical Es tablished Patient with Traci Dennison [employer] 08/13/2021 Chronic gastritis without hemorrhage Med ical Established Patient with Traci Dennison [employer] 08/13/2021 Diverticulosis of intestine Medical Esta blished Patient with Tracialyx Dennison [employer] 08/13/2021 Urinary tract infection Medical Establis hed Patient with Traci Dennison [employer] 08/13/2021 Anxiety disorder NOS Medical Established Patient with Traci Dennison [employer] 07/17/2021 Other hypothyroidism Medical Established Patient with Traci Dennison [employer] 07/17/2021 Upper respiratory infection Medical Esta blished Patient with Traci Dennison [employer] 07/17/2021 Visit for: routine adult H&P with abnormal findings Medical Established Patient with Traci Dennsion [employer] 07/17/2021 Visit for: screening for lip oid disorders Medical Established Patient with Traci Dennison [employer] 07/17/2021 Vitamin B12 deficiency Medical Establish ed Patient with Traci Dennison [employer] 07/17/2021 Vitamin D deficiency Medical Established Patient with Traci Dennison [employer] 07/17/2021 Z68.28 - Body mass index [BM I] 28.0-28.9, adult Medical Established Patient with Traci Dennison [employer] 07/17/2021 Allergic rhinitis Telemedicine Establi sted Patient with Traci Dennison [employer] 07/16/2021 Exposure to COVID-19 Telemedicine Establ isted Patient with Traci Dennison [employer] 04/29/2021 Bipolar schizoaffective disorder BH Esta blished Patient with Farrah Jarrett [facility] 04/15/2021 Anxiety disorder NOS Medical Established Patient with Traci Dennison [employer] 04/15/2021 Assessment of body mass index Medical Es tablished Patient with Traci Dennison [employer] 04/15/2021 Bipolar disorder NOS Medical Established Patient with Traci Dennison [employer] 04/15/2021 Anxiety disorder NOS BH Telebehavioral H ealth with Farrah Jarrett [facility] 04/09/2021 Bipolar disorder NOS BH Telebehavioral H ealth with Farrah Jarrett [facility] 04/09/2021 Anxiety disorder NOS BH Established Melanie ent with Hannah Short [facility] 04/03/2021 Bipolar I disorder, most rec ent episode, depressed Established Patient with Hannah Short [facility] 04/03/2021 Nicotine dependence Established Patie nt with Hannah Short [facility] 04/03/2021 Nicotine dependence Established Patie nt with Hannah Short [facility] 04/03/2021 Undifferentiated schizophren ia per patient reported history Established Patient with Hannah Short [facility] 04/03/2021 A home test was negative Medic al Established Patient with Traci Dennison [employer] 04/03/2021 Assessment of body mass index Medical Es tablished Patient with Traci Dennison [employer] 04/03/2021 Epilepsy, not intractable, w ithout status epilepticus Medical Established Patient with Traci Dennison [facility] 04/03/2021 Mixed affective bipolar diso rder, moderate Medical Established Patient with Traci Dennison [facility] 04/03/2021 Urinary tract infection Medical Establis hed Patient with Traci Dennison [facility] 04/03/2021 Visit for: screening for STD Medical Est ablished Patient with Traci Dennison [facility] 04/03/2021 Assessment of visit for: scr eening for human immunodeficiency virus Medical Established Patient with Peggy Thrasher [facility] 02/14/2021 Diabetes Risk Test Score was three score 02/14/2021 Medical Established Patient with Peggy Thrasher [facility] 02/14/2021 Diarrhea Medical Established Patient with Peggy Thrasher [facility] 02/14/2021 Nicotine dependence Medical Established Patient with Peggy Thrasher [facility] 02/14/2021 Z68.28 - Body mass index [BM I] 28.0-28.9, adult Medical Established Patient with Peggy Thrasher [facility] 02/14/2021 Cough Telemedicine Establi sted Patient with Traci Dennison [facility] 01/01/2021 Fever Telemedicine Establi sted Patient with Traci Dennison [facility] 01/01/2021 Z20.822 - Contact with and ( suspected) exposure to COVID-19 Telemedicine Establisted Patient with Traci Dennison [employer] 01/01/2021 Bipolar I disorder, most rec ent episode, depressed Established Patient with Farrah Jarrett [facility] 06/03/2020 Paranoid schizophrenia per p atient report Established Patient with Farrah Jarrett [facility] 06/03/2020 Post-traumatic stress disord er per patient report Established Patient with Farrah Jarrett [facility] 06/03/2020 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 Patient with Traci Dennison [employer] 06/03/2020 Overweight Medical Established Patient with Traci Dennison [employer] 06/03/2020 Z68.29 - Body mass index [BM I] 29.0-29.9, adult Medical Established Patient with Traci Dennison [employer] 06/03/2020 Anxiety disorder NOS Medical Established Patient with Traci Dennison [employer] 01/26/2020 Bipolar disorder NOS Medical Established Patient with Traci Dennison [employer] 01/26/2020 Infection of tooth Medical Established Patient with Traci Dennison [employer] 01/26/2020 Z68.20 - Body mass index [BM I] 20.0-20.9, adult Medical Established Patient with Traci Dennison [employer] 01/26/2020 Bipolar I disorder, most rec ent episode, mixed Established Patient with Hannah Short [facility] 01/08/2020 Generalized anxiety disorder Establis hed Patient with Hannah Short [facility] 01/08/2020 Diabetes Risk Test Score was one score 01/08/2020 Medical Established Patient with Peggy Anna Marie [employer]CT INSTRUCTOR 01/08/2020 Overweight Medical Established Patient with Peggy Anna Marie [employer]OLOGY ADJUNCT INSTRUCTOR 01/08/2020 Z68.27 - Body mass index (BM I) 27.0-27.9, adult Medical Established Patient with Peggy Anna Marie [employer] ADJUNCT INSTRUCTOR 01/08/2020 Bipolar I disorder, most rec ent episode, mixed Established Patient with Hannah Short [facility] 12/25/2019 Generalized anxiety disorder Establis hed Patient with Hannah Short [facility] 12/25/2019 Overweight Medical Established Patient with Peggy Anna Marie [employer]OLOGY ADJUNCT INSTRUCTOR 12/25/2019 Z68.26 - Body mass index (BM I) 26.0-26.9, adult Medical Established Patient with Peggy Anna Marie BIOLOGY ADJUNCT INSTRUCTOR 12/25/2019 [facility] Work Phone: [phone] Evaluation note Includes: Assessments for all patient encounters Findings Encounter Date Bipolar schizoaffective disorder Esta blished Patient with Ina Díaz [facility] 12/11/2021 Assessment of body mass inde x [Body mass index [BMI] 26.0-26.9, adult] Medical Established Patient with Srinivasa Ward [employer]Y ADJUNCT INSTRUCTOR 12/11/2021 Bipolar schizoaffective disorder BH Esta blished [facility] 11/25/2021 Anxiety disorder NOS Medical Established Patient with Traci Juma [employer]Y ADJUNCT INSTRUCTOR 11/25/2021 Urinary tract infection Medical Establis hed Patient with Traci Juma [employer] ADJUNCT INSTRUCTOR 11/25/2021 Z68.27 - Body mass index [BM I] 27.0-27.9, adult Medical Established Patient with Tracialyx Dennison [employer]OLOGY ADJUNCT INSTRUCTOR 11/25/2021 Anxiety disorder NOS Medical Established Patient with Traci Juma [employer] ADJUNCT INSTRUCTOR 08/13/2021 Assessment of body mass index Medical Es tablished Patient with Traci Dennison [employer] ADJUNCT INSTRUCTOR 08/13/2021 Chronic gastritis without hemorrhage Med ical Established Patient with Traci Juma [employer] ADJUNCT INSTRUCTOR 08/13/2021 Diverticulosis of intestine Medical Esta blished Patient with Traci Juma [employer] ADJUNCT INSTRUCTOR 08/13/2021 Urinary tract infection Medical Establis hed Patient with Traci Dennison [employer] ADJUNCT INSTRUCTOR 08/13/2021 Anxiety disorder NOS Medical Established Patient with Traci Dennison [employer] ADJUNCT INSTRUCTOR 07/17/2021 Other hypothyroidism Medical Established Patient with Traci Dennison [employer] ADJUNCT INSTRUCTOR 07/17/2021 Upper respiratory infection Medical Esta blished Patient with Tracialyx Dennison [employer] ADJUNCT INSTRUCTOR 07/17/2021 Visit for: routine adult H&P with abnormal findings Medical Established Patient with Traci Dennison [employer] ADJUNCT INSTRUCTOR 07/17/2021 Visit for: screening for lip oid disorders Medical Established Patient with Traci Dennison [employer]CT INSTRUCTOR 07/17/2021 Vitamin B12 deficiency Medical Establish ed Patient with Traci Dennison [employer] ADJUNCT INSTRUCTOR 07/17/2021 Vitamin D deficiency Medical Established Patient with Traci Dennison [employer] ADJUNCT INSTRUCTOR 07/17/2021 Z68.28 - Body mass index [BM I] 28.0-28.9, adult Medical Established Patient with Traci Dennison [employer] ADJUNCT INSTRUCTOR 07/17/2021 Allergic rhinitis Telemedicine Establi sted Patient with Traci Dennison [employer] ADJUNCT INSTRUCTOR 07/16/2021 Exposure to COVID-19 Telemedicine Establ isted Patient with Traci Dennison [employer] ADJUNCT INSTRUCTOR 04/29/2021 Bipolar schizoaffective disorder BH Esta blished Patient with Farrah Jarrett [facility] 04/15/2021 Anxiety disorder NOS Medical Established Patient with Traci Dennison [employer]CT INSTRUCTOR 04/15/2021 Assessment of body mass index Medical Es tablished Patient with Traci Dennison [employer]JUNCT INSTRUCTOR 04/15/2021 Bipolar disorder NOS Medical Established Patient with Traci Juma [employer] ADJUNCT INSTRUCTOR 04/15/2021 Anxiety disorder NOS BH Telebehavioral H ealth with Farrahmatthew Hernandezs [facility] 04/09/2021 Bipolar disorder NOS Telebehavioral H ealth with Farrah Hernandezs [facility] 04/09/2021 Anxiety disorder NOS Established Melanie ent with Hannah Short [facility] 04/03/2021 Bipolar I disorder, most rec ent episode, depressed Established Patient with Hannah Short [facility] 04/03/2021 Nicotine dependence Established Patie nt with Hannah Short [facility] 04/03/2021 Nicotine dependence Established Patie nt with Hannah Short [facility] 04/03/2021 Undifferentiated schizophren ia per patient reported history Established Patient with Hannah Short [facility] 04/03/2021 A home test was negative Medic al Established Patient with Traci Dennison [employer] ADJUNCT INSTRUCTOR 04/03/2021 Assessment of body mass index Medical Es tablished Patient with Traci Dennison [employer] ADJUNCT INSTRUCTOR 04/03/2021 Epilepsy, not intractable, w ithout status epilepticus Medical Established Patient with Tracialyx Dennison BI[employer]Y ADJUNCT INSTRUCTOR 04/03/2021 Mixed affective bipolar diso rder, moderate Medical Established Patient with Traci Dennison BIOLOGY ADJUNCT INSTRUCTOR 04/03/2021 Urinary tract infection Medical Establis hed Patient with Traci Dennison [facility] 04/03/2021 Visit for: screening for STD Medical Est ablished Patient with Traci Dennison [employer] ADJUNCT INSTRUCTOR 04/03/2021 Assessment of visit for: scr eening for human immunodeficiency virus Medical Established Patient with Peggy Thrasher [facility] 02/14/2021 Diabetes Risk Test Score was three score 02/14/2021 Medical Established Patient with Peggy Anna Marie [facility] 02/14/2021 Diarrhea Medical Established Patient with Peggy Anna Marie [facility] 02/14/2021 Nicotine dependence Medical Established Patient with Peggy Thrasher [facility] 02/14/2021 Z68.28 - Body mass index [BM I] 28.0-28.9, adult Medical Established Patient with Peggy Anna Marie BIOLOGY ADJUNCT INSTRUCTOR 02/14/2021 Cough Telemedicine Establi sted Patient with Traci Dennison [employer] ADJUNCT INSTRUCTOR 01/01/2021 Fever Telemedicine Establi sted Patient with Traci Dennison [employer] ADJUNCT INSTRUCTOR 01/01/2021 Z20.822 - Contact with and ( suspected) exposure to COVID-19 Telemedicine Establisted Patient with Tracialyx Dennison [employer]Y ADJUNCT INSTRUCTOR 01/01/2021 Bipolar I disorder, most rec ent episode, depressed Established Patient with Farrah Jarrett [facility] 06/03/2020 Paranoid schizophrenia per p atient report Established Patient with Farrah Jarrett [facility] 06/03/2020 Post-traumatic stress disord er per patient report Established Patient with Farrah Jarrett [facility] 06/03/2020 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 Patient with Traci Dennison [employer] ADJUNCT INSTRUCTOR 06/03/2020 Overweight Medical Established Patient with Traci Dennison [facility] 06/03/2020 Z68.29 - Body mass index [BM I] 29.0-29.9, adult Medical Established Patient with Traci Dennison [facility] 06/03/2020 Anxiety disorder NOS Medical Established Patient with Traci Dennison [employer] ADJUNCT INSTRUCTOR 01/26/2020 Bipolar disorder NOS Medical Established Patient with Traci Dennison [facility] 01/26/2020 Infection of tooth Medical Established Patient with Traci Dennison [facility] 01/26/2020 Z68.20 - Body mass index [BM I] 20.0-20.9, adult Medical Established Patient with Traci Dennison [facility] 01/26/2020 Bipolar I disorder, most rec ent episode, mixed Established Patient with Hannah Short [facility] 01/08/2020 Generalized anxiety disorder Establis hed Patient with Hannah Short [facility] 01/08/2020 Diabetes Risk Test Score was one score 01/08/2020 Medical Established Patient with Peggy Leoen [employer] ADJUNCT INSTRUCTOR 01/08/2020 Overweight Medical Established Patient with Peggy Anna Marie [facility] 01/08/2020 Z68.27 - Body mass index (BM I) 27.0-27.9, adult Medical Established Patient with Peggy Anna Marie BIOLOGY ADJUNCT INSTRUCTOR 01/08/2020 Bipolar I disorder, most rec ent episode, mixed Established Patient with Hannah Short [facility] 12/25/2019 Generalized anxiety disorder Establis hed Patient with Hannah Short [facility] 12/25/2019 Overweight Medical Established Patient with Peggy Anna Marie BIOLOGY ADJUNCT INSTRUCTOR 12/25/2019 Z68.26 - Body mass index (BM I) 26.0-26.9, adult Medical Established Patient with Peggy Leoen BIOLOGY ADJUNCT INSTRUCTOR 12/25/2019 [facility] Work Phone: 1(201) 179-437608-16-2022 Evaluation note Includes: Assessments for all patient encounters Findings Encounter Date Assessment of body mass inde x [Body mass index [BMI] 26.0-26.9, adult] Medical Established Patient with Srinivasa Boyceer BIOLOGY ADJUNCT INSTRUCTOR 12/11/2021 Bipolar schizoaffective disorder BH Esta blished Patient with Ina Watkinserson [facility] 11/25/2021 Anxiety disorder NOS Medical Established Patient with Traci Dennison [employer] ADJUNCT INSTRUCTOR 11/25/2021 Urinary tract infection Medical Establis hed Patient with Tracialyx Dennison BIOLOGY ADJUNCT INSTRUCTOR 11/25/2021 Z68.27 - Body mass index [BM I] 27.0-27.9, adult Medical Established Patient with Traci Juma [employer] ADJUNCT INSTRUCTOR 11/25/2021 Anxiety disorder NOS Medical Established Patient with Traci Juma [employer] ADJUNCT INSTRUCTOR 08/13/2021 Assessment of body mass index Medical Es tablished Patient with Traci Dennison [employer] ADJUNCT INSTRUCTOR 08/13/2021 Chronic gastritis without hemorrhage Med ical Established Patient with Traci Juma [employer]OLOGY ADJUNCT INSTRUCTOR 08/13/2021 Diverticulosis of intestine Medical Esta blished Patient with Traci Dennison [employer] ADJUNCT INSTRUCTOR 08/13/2021 Urinary tract infection Medical Establis hed Patient with Traci Dennison [employer]CT INSTRUCTOR 08/13/2021 Anxiety disorder NOS Medical Established Patient with Traci Dennison [employer] ADJUNCT INSTRUCTOR 07/17/2021 Other hypothyroidism Medical Established Patient with Traci Juma BIOLOGY ADJUNCT INSTRUCTOR 07/17/2021 Upper respiratory infection Medical Esta blished Patient with Traci Juma [employer] ADJUNCT INSTRUCTOR 07/17/2021 Visit for: routine adult H&P with abnormal findings Medical Established Patient with Traci Dennison [employer] ADJUNCT INSTRUCTOR 07/17/2021 Visit for: screening for lip oid disorders Medical Established Patient with Tracialyx Dennison [employer] ADJUNCT INSTRUCTOR 07/17/2021 Vitamin B12 deficiency Medical Establish ed Patient with Traci Dennison [employer] ADJUNCT INSTRUCTOR 07/17/2021 Vitamin D deficiency Medical Established Patient with Traci Dennison BIOLOGY ADJUNCT INSTRUCTOR 07/17/2021 Z68.28 - Body mass index [BM I] 28.0-28.9, adult Medical Established Patient with Traci Juma BIOLOGY ADJUNCT INSTRUCTOR 07/17/2021 Allergic rhinitis Telemedicine Establi sted Patient with Traci Dennison [employer] ADJUNCT INSTRUCTOR 07/16/2021 Exposure to COVID-19 Telemedicine Establ isted Patient with Traci Dennison [employer] ADJUNCT INSTRUCTOR 04/29/2021 Bipolar schizoaffective disorder BH Esta blished Patient with Farrah Jarrett [facility] 04/15/2021 Anxiety disorder NOS Medical Established Patient with Traci Dennsion [employer] ADJUNCT INSTRUCTOR 04/15/2021 Assessment of body mass index Medical Es tablished Patient with Traci Juma [employer] ADJUNCT INSTRUCTOR 04/15/2021 Bipolar disorder NOS Medical Established Patient with Traci Juma [employer] ADJUNCT INSTRUCTOR 04/15/2021 Anxiety disorder NOS Telebehavioral H ealth with Farrah Jarrett [facility] 04/09/2021 Bipolar disorder NOS Telebehavioral H ealth with Farrah Jarrett [facility] 04/09/2021 Anxiety disorder NOS Established Melanie ent with Hannah Short [facility] 04/03/2021 Bipolar I disorder, most rec ent episode, depressed Established Patient with Hannah Short [facility] 04/03/2021 Nicotine dependence Established Patie nt with Hannah Short [facility] 04/03/2021 Nicotine dependence Established Patie nt with Hannah Short [facility] 04/03/2021 Undifferentiated schizophren ia per patient reported history Established Patient with Hannah Short [facility] 04/03/2021 A home test was negative Medic al Established Patient with Traci Dennison [employer]JUNCT INSTRUCTOR 04/03/2021 Assessment of body mass index Medical Es tablished Patient with Traci Dennison [employer] ADJUNCT INSTRUCTOR 04/03/2021 Epilepsy, not intractable, w ithout status epilepticus Medical Established Patient with Traci Dennison [employer] ADJUNCT INSTRUCTOR 04/03/2021 Mixed affective bipolar diso rder, moderate Medical Established Patient with Traci Dennison BIOLOGY ADJUNCT INSTRUCTOR 04/03/2021 Urinary tract infection Medical Establis hed Patient with Traci Dennison BIOLOGY ADJUNCT INSTRUCTOR 04/03/2021 Visit for: screening for STD Medical Est ablished Patient with Traci Dennison [employer] ADJUNCT INSTRUCTOR 04/03/2021 Assessment of visit for: scr eening for human immunodeficiency virus Medical Established Patient with Peggy Thrasher [facility] 02/14/2021 Diabetes Risk Test Score was three score 02/14/2021 Medical Established Patient with Peggy Anna Marie [facility] 02/14/2021 Diarrhea Medical Established Patient with Peggy Thrasher BIOLOGY ADJUNCT INSTRUCTOR 02/14/2021 Nicotine dependence Medical Established Patient with Peggy Thrasher [facility] 02/14/2021 Z68.28 - Body mass index [BM I] 28.0-28.9, adult Medical Established Patient with Peggy Anna Marie BIOLOGY ADJUNCT INSTRUCTOR 02/14/2021 Cough Telemedicine Establi sted Patient with Traci Dennison [employer]OLOGY ADJUNCT INSTRUCTOR 01/01/2021 Fever Telemedicine Establi sted Patient with Traci Dennison [facility] 01/01/2021 Z20.822 - Contact with and ( suspected) exposure to COVID-19 Telemedicine Establisted Patient with Traci Dennison [employer] ADJUNCT INSTRUCTOR 01/01/2021 Bipolar I disorder, most rec ent episode, depressed Established Patient with Farrah Jarrett [facility] 06/03/2020 Paranoid schizophrenia per p atient report Established Patient with Farrah Jarrett [facility] 06/03/2020 Post-traumatic stress disord er per patient report Established Patient with Farrah Jarrett [facility] 06/03/2020 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 Patient with Traci Dennison [employer] ADJUNCT INSTRUCTOR 06/03/2020 Overweight Medical Established Patient with Tracialyx Dennison BIOLOGY ADJUNCT INSTRUCTOR 06/03/2020 Z68.29 - Body mass index [BM I] 29.0-29.9, adult Medical Established Patient with Traci Dennison [employer] ADJUNCT INSTRUCTOR 06/03/2020 Anxiety disorder NOS Medical Established Patient with Tracialyx Dennison BI[employer]Y ADJUNCT INSTRUCTOR 01/26/2020 Bipolar disorder NOS Medical Established Patient with Tracialyx Dennison [facility] 01/26/2020 Infection of tooth Medical Established Patient with Traci Dennison [facility] 01/26/2020 Z68.20 - Body mass index [BM I] 20.0-20.9, adult Medical Established Patient with Traci Dennison [facility] 01/26/2020 Bipolar I disorder, most rec ent episode, mixed Established Patient with Hannah Short [facility] 01/08/2020 Generalized anxiety disorder Establis hed Patient with Hannah Short [facility] 01/08/2020 Diabetes Risk Test Score was one score 01/08/2020 Medical Established Patient with Peggyisis Leoen [employer]OLOGY ADJUNCT INSTRUCTOR 01/08/2020 Overweight Medical Established Patient with Peggy Anna Marie BIOLOGY ADJUNCT INSTRUCTOR 01/08/2020 Z68.27 - Body mass index (BM I) 27.0-27.9, adult Medical Established Patient with Peggy Anna Marie [facility] 01/08/2020 Bipolar I disorder, most rec ent episode, mixed Established Patient with Hannah Short [facility] 12/25/2019 Generalized anxiety disorder Establis hed Patient with Hannah Short [facility] 12/25/2019 Overweight Medical Established Patient with Peggy Anna Marie BIOLOGY ADJUNCT INSTRUCTOR 12/25/2019 Z68.26 - Body mass index (BM I) 26.0-26.9, adult Medical Established Patient with Peggy Anna Marie BIOLOGY ADJUNCT INSTRUCTOR 12/25/2019 [facility] Work Phone: 1([phone]) 205-650908-16-2022 Reason for referral (narrative)* Date Encounter Description Provider Reason for Referral 11/25/21 Medical Established Patient Traci bruno [employer]CT INSTRUCTOR Referral To Mental Health Team 07/17/21 Medical Established Patient Traci Pérez damion BIOLOGY ADJUNCT INSTRUCTOR Referral To Mental Health Team 06/03/20 Established Patient Farrah Jarrett [facility] Referral To Mental Health Team - [facility] conducted screen and discussed patient's responses w/her. [facility] Work Phone: [phone]) 496-144708-03-2022 Hospital Discharge instructions* Discharge Instructions* Myrtle Bergeron DO - 11/12/2021 12:00 PM EDT Recommend staying on a liquid diet for the next 24 to 48 hours until the diarrhea improves. Then advance diet as tolerated. * Attachments The following attachments cannot be sent through Care Everywhere. * Gastroenteritis ([place]) [facility] Work Phone: [phone]) 281-142505-23-2022 Hospital Discharge instructions* Instructions* Natan Bravo PA-C - 09/01/2021 Follow-up with GC and chlamydia STD results in the next 3 to 5 days. Return to the emergency room for any worsening symptoms. Follow-up with your primary care provider in the next week. * Attachments The following attachments cannot be sent through Care Everywhere. * Folliculitis ([place]) * STI ([place]) [facility] Work Phone: [phone]) 439-380505-04-2022 Evaluation note Includes: Assessments for all patient encounters Findings Encounter Date Anxiety disorder NOS Medical Established Patient with Traci Dennison [facility] 08/13/2021 Assessment of body mass index Medical Es tablished Patient with Traci Dennison [facility] 08/13/2021 Chronic gastritis without hemorrhage Med ical Established Patient with Traci Dennison [facility] 08/13/2021 Diverticulosis of intestine Medical Esta blished Patient with Traci Dennison [facility] 08/13/2021 Urinary tract infection Medical Establis hed Patient with Traci Dennison [facility] 08/13/2021 Anxiety disorder NOS Medical Established Patient with Traci Dennison [facility] 07/17/2021 Other hypothyroidism Medical Established Patient with Traci Dennison [facility] 07/17/2021 Upper respiratory infection Medical Esta blished Patient with Traci Dennison BI[employer] ADJUNCT INSTRUCTOR 07/17/2021 Visit for: routine adult H&P with abnormal findings Medical Established Patient with Traci Dennison BI[employer] ADJUNCT INSTRUCTOR 07/17/2021 Visit for: screening for lip oid disorders Medical Established Patient with Traci Dennison [employer] ADJUNCT INSTRUCTOR 07/17/2021 Vitamin B12 deficiency Medical Establish ed Patient with Traci Dennison [employer] ADJUNCT INSTRUCTOR 07/17/2021 Vitamin D deficiency Medical Established Patient with Traci Dennison BIOLOGY ADJUNCT INSTRUCTOR 07/17/2021 Z68.28 - Body mass index [BM I] 28.0-28.9, adult Medical Established Patient with Traci Dennison BI[employer] ADJUNCT INSTRUCTOR 07/17/2021 Allergic rhinitis Telemedicine Establi sted Patient with Traci Dennison [employer] ADJUNCT INSTRUCTOR 07/16/2021 Exposure to COVID-19 Telemedicine Establ isted Patient with Traci Dennison [employer] ADJUNCT INSTRUCTOR 04/29/2021 Bipolar schizoaffective disorder Esta blished Patient with Farrah Jarrett [facility] 04/15/2021 Anxiety disorder NOS Medical Established Patient with Traci Dennison [employer] ADJUNCT INSTRUCTOR 04/15/2021 Assessment of body mass index Medical Es tablished Patient with Traci Dennison BI[employer] ADJUNCT INSTRUCTOR 04/15/2021 Bipolar disorder NOS Medical Established Patient with Traci Dennison BI[employer] ADJUNCT INSTRUCTOR 04/15/2021 Anxiety disorder NOS Telebehavioral H ealth with Farrah Jarrett [facility] 04/09/2021 Bipolar disorder NOS Telebehavioral H ealth with Farrah Jarrett [facility] 04/09/2021 Anxiety disorder NOS Established Melanie ent with Hannah Short [facility] 04/03/2021 Bipolar I disorder, most rec ent episode, depressed Established Patient with Hannah Short [facility] 04/03/2021 Nicotine dependence Established Patie nt with Hannah Short [facility] 04/03/2021 Nicotine dependence Established Patie nt with Hannah Short [facility] 04/03/2021 Undifferentiated schizophren ia per patient reported history Established Patient with Hannah Short [facility] 04/03/2021 A home test was negative Medic al Established Patient with Traci Dennison [employer]JUNCT INSTRUCTOR 04/03/2021 Assessment of body mass index Medical Es tablished Patient with Traci Dennison [employer] ADJUNCT INSTRUCTOR 04/03/2021 Epilepsy, not intractable, w ithout status epilepticus Medical Established Patient with Traci Dennison [employer] ADJUNCT INSTRUCTOR 04/03/2021 Mixed affective bipolar diso rder, moderate Medical Established Patient with Traci Dennison [facility] 04/03/2021 Urinary tract infection Medical Establis hed Patient with Traci Dennison [facility] 04/03/2021 Visit for: screening for STD Medical Est ablished Patient with Traci Dennison [facility] 04/03/2021 Assessment of visit for: scr eening for human immunodeficiency virus Medical Established Patient with Peggy Thrasher [facility] 02/14/2021 Diabetes Risk Test Score was three score 02/14/2021 Medical Established Patient with Peggy Thrasher [facility] 02/14/2021 Diarrhea Medical Established Patient with Peggy Thrasher [facility] 02/14/2021 Nicotine dependence Medical Established Patient with Peggy Thrasher [facility] 02/14/2021 Z68.28 - Body mass index [BM I] 28.0-28.9, adult Medical Established Patient with Peggy Thrasher [facility] 02/14/2021 Cough Telemedicine Establi sted Patient with Traci Dennison [facility] 01/01/2021 Fever Telemedicine Establi sted Patient with Traci Dennison [facility] 01/01/2021 Z20.822 - Contact with and ( suspected) exposure to COVID-19 Telemedicine Establisted Patient with Traci Dennison [facility] 01/01/2021 Bipolar I disorder, most rec ent episode, depressed Established Patient with Farrahmatthew Jarrett [facility] 06/03/2020 Paranoid schizophrenia per p atient report Established Patient with Farrahmatthew Hernandezs [facility] 06/03/2020 Post-traumatic stress disord er per patient report Established Patient with Farrhamatthew Hernandezs [facility] 06/03/2020 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 Patient with Traci Dennison [facility] 06/03/2020 Overweight Medical Established Patient with Traci Dennison [facility] 06/03/2020 Z68.29 - Body mass index [BM I] 29.0-29.9, adult Medical Established Patient with Traci Dennison [facility] 06/03/2020 Anxiety disorder NOS Medical Established Patient with Traci Juma [facility] 01/26/2020 Bipolar disorder NOS Medical Established Patient with Traci Dennison [facility] 01/26/2020 Infection of tooth Medical Established Patient with Traci Dennison [facility] 01/26/2020 Z68.20 - Body mass index [BM I] 20.0-20.9, adult Medical Established Patient with Traci Juma [facility] 01/26/2020 Bipolar I disorder, most rec ent episode, mixed BH Established Patient with Hannah Short [facility] 01/08/2020 Generalized anxiety disorder BH Establis hed Patient with Hannah Short [facility] 01/08/2020 Diabetes Risk Test Score was one score 01/08/2020 Medical Established Patient with Peggy Thrasher [employer]CT IN[employer] 01/08/2020 Overweight Medical Established Patient with Peggy Thrasher [employer]CT INSTRUCTOR 01/08/2020 Z68.27 - Body mass index (BM I) 27.0-27.9, adult Medical Established Patient with Peggy Thrasher [facility] 01/08/2020 Bipolar I disorder, most rec ent episode, mixed BH Established Patient with Hannah Short [facility] 12/25/2019 Generalized anxiety disorder BH Establis hed Patient with Hannah Short [facility] 12/25/2019 Overweight Medical Established Patient with Peggy Thrasher [facility] 12/25/2019 Z68.26 - Body mass index (BM I) 26.0-26.9, adult Medical Established Patient with Peggy Thrasher [facility] 12/25/2019 [facility] Work Phone: 1(607) 991-855304-07-2022 Evaluation note Includes: Assessments for all patient encounters Findings Encounter Date Anxiety disorder NOS Medical Established Patient with Traci Dennison [facility] 07/17/2021 Other hypothyroidism Medical Established Patient with Traci Dennison [facility] 07/17/2021 Upper respiratory infection Medical Esta blished Patient with Traci Dennison [facility] 07/17/2021 Visit for: routine adult H&P with abnormal findings Medical Established Patient with Traci Dennison [facility] 07/17/2021 Visit for: screening for lip oid disorders Medical Established Patient with Traci Dennison [facility] 07/17/2021 Vitamin B12 deficiency Medical Establish ed Patient with Traci Dennison [facility] 07/17/2021 Vitamin D deficiency Medical Established Patient with Traci Dennison [facility] 07/17/2021 Z68.28 - Body mass index [BM I] 28.0-28.9, adult Medical Established Patient with Traci Dennison [employer] 07/17/2021 Allergic rhinitis Telemedicine Establi sted Patient with Traci Dennison [facility] 07/16/2021 Exposure to COVID-19 Telemedicine Establ isted Patient with Traci Dennison [facility] 04/29/2021 Bipolar schizoaffective disorder BH Esta blished Patient with Farrah Jarrett [facility] 04/15/2021 Anxiety disorder NOS Medical Established Patient with Traci Dennison [employer] 04/15/2021 Assessment of body mass index Medical Es tablished Patient with Traci Dennison [employer] 04/15/2021 Bipolar disorder NOS Medical Established Patient with Traci Dennison [employer] 04/15/2021 Anxiety disorder NOS Telebehavioral H ealth with Farrah Jarrett [facility] 04/09/2021 Bipolar disorder NOS Telebehavioral H ealth with Farrah Jarrett [facility] 04/09/2021 Anxiety disorder NOS Established Melanie ent with Hannah Short [facility] 04/03/2021 Bipolar I disorder, most rec ent episode, depressed Established Patient with Hannah Short [facility] 04/03/2021 Nicotine dependence Established Patie nt with Hannah Short [facility] 04/03/2021 Nicotine dependence Established Patie nt with Hannah Short [facility] 04/03/2021 Undifferentiated schizophren ia per patient reported history Established Patient with Hannah Short [facility] 04/03/2021 A home test was negative Medic al Established Patient with Traci Dennison [employer] 04/03/2021 Assessment of body mass index Medical Es tablished Patient with Traci Dennison [employer] 04/03/2021 Epilepsy, not intractable, w ithout status epilepticus Medical Established Patient with Traci Dennison [employer] 04/03/2021 Mixed affective bipolar diso rder, moderate Medical Established Patient with Traci Dennison [employer] 04/03/2021 Urinary tract infection Medical Establis hed Patient with Traci Dennison [employer] 04/03/2021 Visit for: screening for STD Medical Est ablished Patient with Traci Dennison [employer] 04/03/2021 Assessment of visit for: scr eening for human immunodeficiency virus Medical Established Patient with Peggy Anna Marie [employer] 02/14/2021 Diabetes Risk Test Score was three score 02/14/2021 Medical Established Patient with Peggy Thrasher [employer] 02/14/2021 Diarrhea Medical Established Patient with Peggy Thrasher [employer] 02/14/2021 Nicotine dependence Medical Established Patient with Peggy Anna Marie [employer] 02/14/2021 Z68.28 - Body mass index [BM I] 28.0-28.9, adult Medical Established Patient with Peggy Anna Marie [employer] 02/14/2021 Cough Telemedicine Establi sted Patient with Traci Dennison [employer] 01/01/2021 Fever Telemedicine Establi sted Patient with Traci Dennison [employer] 01/01/2021 Z20.822 - Contact with and ( suspected) exposure to COVID-19 Telemedicine Establisted Patient with Traci Dennison [employer] 01/01/2021 Bipolar I disorder, most rec ent episode, depressed Established Patient with Farrah Jarrett [facility] 06/03/2020 Paranoid schizophrenia per p atient report Established Patient with Farrah Jarrett [facility] 06/03/2020 Post-traumatic stress disord er per patient report Established Patient with Farrah Jarrett [facility] 06/03/2020 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 Patient with Traci Dennison [facility] 06/03/2020 Overweight Medical Established Patient with Traci Dennison [facility] 06/03/2020 Z68.29 - Body mass index [BM I] 29.0-29.9, adult Medical Established Patient with Traci Dennison [facility] 06/03/2020 Anxiety disorder NOS Medical Established Patient with Traci Dennison [facility] 01/26/2020 Bipolar disorder NOS Medical Established Patient with Traci Dennison [facility] 01/26/2020 Infection of tooth Medical Established Patient with Traci Dennison [facility] 01/26/2020 Z68.20 - Body mass index [BM I] 20.0-20.9, adult Medical Established Patient with Traci Dennison [facility] 01/26/2020 Bipolar I disorder, most rec ent episode, mixed Established Patient with Hannah Short [facility] 01/08/2020 Generalized anxiety disorder Establis hed [facility] Diabetes Risk Test Score was one score 01/08/2020 Medical Established Patient with Peggy Leoen [facility] 01/08/2020 Overweight Medical Established Patient with Peggy Anna Marie [facility] 01/08/2020 Z68.27 - Body mass index (BM I) 27.0-27.9, adult Medical Established Patient with Peggy Anna Marie [facility] 01/08/2020 Bipolar I disorder, most rec ent episode, mixed Established Patient with Hannah Short [facility] 12/25/2019 Generalized anxiety disorder Establis hed Patient with Hannah Short [facility] 12/25/2019 Overweight Medical Established Patient with Peggy Leoen [facility] 12/25/2019 Z68.26 - Body mass index (BM I) 26.0-26.9, adult Medical Established Patient with Peggy Anna Marie 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 Ovarian cyst 12/25/2019 Post-traumatic stress disorder 0 History of asthma 12/25/2019 History of schizophrenia 12/25/2019 History of bipolar disorder NOS 12/25/19 20 History of depression 12/25/2019 History of psychiatric disorders 020 [facility] Work Phone: 1(665) 330-645904-06-2022 Evaluation note Includes: Assessments for all patient encounters Findings Encounter Date Allergic rhinitis Telemedicine Establi sted Patient with Traci Dennison [employer] 07/16/2021 Exposure to COVID-19 Telemedicine Establ isted Patient with Traci Dennison [employer] 04/29/2021 Bipolar schizoaffective disorder Esta blished Patient with Farrah Jarrett [facility] 04/15/2021 Anxiety disorder NOS Medical Established Patient with Traci Dennison [employer] 04/15/2021 Assessment of body mass index Medical Es tablished Patient with Traci Dennison [employer] 04/15/2021 Bipolar disorder NOS Medical Established Patient with Traci Dennison [employer] 04/15/2021 Anxiety disorder NOS Telebehavioral H ealth with Farrah Jarrett [facility] 04/09/2021 Bipolar disorder NOS Telebehavioral H ealth with Farrah Jarrett [facility] 04/09/2021 Anxiety disorder NOS Established Melanie ent with Hannah Short [facility] 04/03/2021 Bipolar I disorder, most rec ent episode, depressed Established Patient with Hannah Short [facility] 04/03/2021 Nicotine dependence Established Patie nt with Hannah Short [facility] 04/03/2021 Nicotine dependence Established Patie nt with Hannah Short [facility] 04/03/2021 Undifferentiated schizophren ia per patient reported history Established Patient with Hannah Short [facility] 04/03/2021 A home test was negative Medic al Established Patient with Traci Dennison [facility] 04/03/2021 Assessment of body mass index Medical Es tablished Patient with Traci Dennison [facility] 04/03/2021 Epilepsy, not intractable, w ithout status epilepticus Medical Established Patient with Traci Dennison [facility] 04/03/2021 Mixed affective bipolar diso rder, moderate Medical Established Patient with Traci Dennison [facility] 04/03/2021 Urinary tract infection Medical Establis hed Patient with Traci Dennison [facility] 04/03/2021 Visit for: screening for STD Medical Est ablished Patient with Traci Dennison [facility] 04/03/2021 Assessment of visit for: scr eening for human immunodeficiency virus Medical Established Patient with Peggy Thrasher [facility] 02/14/2021 Diabetes Risk Test Score was three score 02/14/2021 Medical Established Patient with Peggy Thrasher [facility] 02/14/2021 Diarrhea Medical Established Patient with Peggy Thrasher [facility] 02/14/2021 Nicotine dependence Medical Established Patient with Peggy Thrasher [facility] 02/14/2021 Z68.28 - Body mass index [BM I] 28.0-28.9, adult Medical Established Patient with Peggy Thrasher [facility] 02/14/2021 Cough Telemedicine Establi sted Patient with Traci Dennison [facility] 01/01/2021 Fever Telemedicine Establi sted Patient with Traci Dennison [facility] 01/01/2021 Z20.822 - Contact with and ( suspected) exposure to COVID-19 Telemedicine Establisted Patient with Traci Dennison [facility] 01/01/2021 Bipolar I disorder, most rec ent episode, depressed Established Patient with Farrah Jarrett [facility] 06/03/2020 Paranoid schizophrenia per p atient report Established Patient with Farrah Luiza [facility] 06/03/2020 Post-traumatic stress disord er per patient report Established Patient [facility] 06/03/2020 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 Patient with Traci Dennison [facility] 06/03/2020 Overweight Medical Established Patient with Traci Dennison [facility] 06/03/2020 Z68.29 - Body mass index [BM I] 29.0-29.9, adult Medical Established Patient with Traci Dennison [facility] 06/03/2020 Anxiety disorder NOS Medical Established Patient with Traci Dennison [facility] 01/26/2020 Bipolar disorder NOS Medical Established Patient with Traci Dennison [facility] 01/26/2020 Infection of tooth Medical Established Patient with Traic Dennison [employer] 01/26/2020 Z68.20 - Body mass index [BM I] 20.0-20.9, adult Medical Established Patient with Traci Dennison [employer] 01/26/2020 Bipolar I disorder, most rec ent episode, mixed Established Patient with Hannah Short [facility] 01/08/2020 Generalized anxiety disorder BH Establis hed Patient with Hannah Short [facility] 01/08/2020 Diabetes Risk Test Score was one score 01/08/2020 Medical Established Patient with Peggy Thrasher [employer] 01/08/2020 Overweight Medical Established Patient with Peggy Anna Marie [employer] 01/08/2020 Z68.27 - Body mass index (BM I) 27.0-27.9, adult Medical Established Patient with Peggy Thrasher [employer] 01/08/2020 Bipolar I disorder, most rec ent episode, mixed Established Patient with Hannah Short [facility] 12/25/2019 Generalized anxiety disorder Establis hed Patient with Hannah Short [facility] 12/25/2019 Overweight Medical Established Patient with Peggy Thrasher [facility] 12/25/2019 Z68.26 - Body mass index (BM I) 26.0-26.9, adult Medical Established Patient with Peggy Thrasher [employer] 12/25/2019 [facility] Work Phone: 1(555) 655-359703-24-2022 Hospital Discharge instructions* Instructions* Darren House MD - 07/03/2021 Please wear the sling as directed. Remove your arm from the sling 2-3 times per day and perform range of motion exercises (such as figure of eight). Use the naproxen as prescribed. Do not take ibuprofen or Aleve while taking this medication. Return to the ED for increasing pain, changes in strength or sensation or any other concerns. * Attachments The following attachments cannot be sent through Care Everywhere. * [facility] ([place] 1(144) 440-895801-18-2022 Evaluation note Includes: Assessments for all patient encounters Findings Encounter Date Exposure to COVID-19 Telemedicine Establ isted Patient with Traci Dennison [employer] 04/29/2021 Bipolar schizoaffective disorder Esta blished Patient with Farrah Jarrett [facility] 04/15/2021 Anxiety disorder NOS Medical Established Patient with Traci Dennison [employer] 04/15/2021 Assessment of body mass index Medical Es tablished Patient with Traci Dennison [employer] 04/15/2021 Bipolar disorder NOS Medical Established Patient with Traci Dennison [employer] 04/15/2021 Anxiety disorder NOS BH Established Melanie ent with Hannah Short [facility] 04/03/2021 Bipolar I disorder, most rec ent episode, depressed BH Established Patient with Hannah Short [facility] 04/03/2021 Nicotine dependence BH Established Patie nt with Hannah Short [facility] 04/03/2021 Nicotine dependence Established Patie nt with Hannah Short [facility] 04/03/2021 Undifferentiated schizophren ia per patient reported history Established Patient with Hannah Short [facility] 04/03/2021 A home test was negative Medic al Established Patient with Traci Dennison [employer] 04/03/2021 Assessment of body mass index Medical Es tablished Patient with Traci Dennison [facility] 04/03/2021 Epilepsy, not intractable, w ithout status epilepticus Medical Established Patient with Traci Dennison [facility] 04/03/2021 Mixed affective bipolar diso rder, moderate Medical Established Patient with Traci Dennison [facility] 04/03/2021 Urinary tract infection Medical Establis hed Patient with Traci Dennison [facility] 04/03/2021 Visit for: screening for STD Medical Est ablished Patient with Traci Dennison [facility] 04/03/2021 Assessment of visit for: scr eening for human immunodeficiency virus Medical Established Patient with Peggy Thrasher [facility] 02/14/2021 Diabetes Risk Test Score was three score 02/14/2021 Medical Established Patient with Peggy Thrasher [facility] 02/14/2021 Diarrhea Medical Established Patient with Peggy Thrasher [facility] 02/14/2021 Nicotine dependence Medical Established Patient with Peggy Thrasher [facility] 02/14/2021 Z68.28 - Body mass index [BM I] 28.0-28.9, adult Medical Established Patient with Peggy Thrasher [facility] 02/14/2021 Cough Telemedicine Establi sted Patient with Traci Dennison [facility] 01/01/2021 Fever Telemedicine Establi sted Patient with Traci Dennison [facility] 01/01/2021 Z20.822 - Contact with and ( suspected) exposure to COVID-19 Telemedicine Establisted Patient with Traci Dennison [facility] 01/01/2021 Bipolar I disorder, most rec ent episode, depressed Established Patient [facility] 06/03/2020 Paranoid schizophrenia per p atient report Established Patient with Farrah Jar[facility] 06/03/2020 Post-traumatic stress disord er per patient report Established Patient with Farrah Jarrett [facility] 06/03/2020 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 Patient with Traci Dennison [employer] 06/03/2020 Overweight Medical Established Patient with Traci Dennison [employer] 06/03/2020 Z68.29 - Body mass index [BM I] 29.0-29.9, adult Medical Established Patient with Traci Dennison [employer] 06/03/2020 Anxiety disorder NOS Medical Established Patient with Traci Dennison [facility] 01/26/2020 Bipolar disorder NOS Medical Established Patient with Tracialyx Dennison [facility] 01/26/2020 Infection of tooth Medical Established Patient with Traci Dennison [facility] 01/26/2020 Z68.20 - Body mass index [BM I] 20.0-20.9, adult Medical Established Patient with Traci Dennison [facility] 01/26/2020 Bipolar I disorder, most rec ent episode, mixed Established Patient with Hannah Short [facility] 01/08/2020 Generalized anxiety disorder Establis hed Patient with Hannah Short [facility] 01/08/2020 Diabetes Risk Test Score was one score 01/08/2020 Medical Established Patient with Peggy Anna Marie [facility] 01/08/2020 Overweight Medical Established Patient with Peggy Anna Marie [facility] 01/08/2020 Z68.27 - Body mass index (BM I) 27.0-27.9, adult Medical Established Patient with Peggy Anna Marie [facility] 01/08/2020 Bipolar I disorder, most rec ent episode, mixed Established Patient with Hannah Short [facility] 12/25/2019 Generalized anxiety disorder Establis hed Patient with Hannah Short [facility] 12/25/2019 Overweight Medical Established Patient with Peggy Anna Marie [employer] 12/25/2019 Z68.26 - Body mass index (BM I) 26.0-26.9, adult Medical Established Patient with Peggy Anna Marie [facility] 12/25/2019 [facility] Work Phone: 1([phone]) 286-685701-18-2022 Evaluation note Includes: Assessments for all patient encounters Findings Encounter Date Exposure to COVID-19 Telemedicine Establ isted Patient with Traci Dennison [employer] 04/29/2021 Bipolar schizoaffective disorder BH Esta blished Patient with Farrah Jarrett [facility] 04/15/2021 Anxiety disorder NOS Medical Established Patient with Traci Denniosn [employer] 04/15/2021 Assessment of body mass index Medical Es tablished Patient with Traci Dennison [employer] 04/15/2021 Bipolar disorder NOS Medical Established Patient with Traci Dennison [employer] 04/15/2021 Anxiety disorder NOS Telebehavioral H ealth with Farrah Jarrett [facility] 04/09/2021 Bipolar disorder NOS Telebehavioral H ealth with Farrah Jarrett [facility] 04/09/2021 Anxiety disorder NOS Established Melanie ent with Hannah Short [facility] 04/03/2021 Bipolar I disorder, most rec ent episode, depressed Established Patient with Hannah Short [facility] 04/03/2021 Nicotine dependence Established Patie nt with Hannah Short [facility] 04/03/2021 Nicotine dependence Established Patie nt with Hannah Short [facility] 04/03/2021 Undifferentiated schizophren ia per patient reported history Established Patient with Hannah Short [facility] 04/03/2021 A home test was negative Medic al Established Patient with Traci Dennison [employer] 04/03/2021 Assessment of body mass index Medical Es tablished Patient with Traci Dennison [employer] 04/03/2021 Epilepsy, not intractable, w ithout status epilepticus Medical Established Patient with Traci Dennison [employer] 04/03/2021 Mixed affective bipolar diso rder, moderate Medical Established Patient with Traci Dennison [employer] 04/03/2021 Urinary tract infection Medical Establis hed Patient with Traci Dennison [employer] 04/03/2021 Visit for: screening for STD Medical Est ablished Patient with Traci Dennison [employer] 04/03/2021 Assessment of visit for: scr eening for human immunodeficiency virus Medical Established Patient with Peggy Thrasher [employer] 02/14/2021 Diabetes Risk Test Score was three score 02/14/2021 Medical Established Patient with Peggy Thrasher [employer] 02/14/2021 Diarrhea Medical Established Patient with Peggy Thrasher [employer] 02/14/2021 Nicotine dependence Medical Established Patient with Peggy Thrasher [employer] 02/14/2021 Z68.28 - Body mass index [BM I] 28.0-28.9, adult Medical Established Patient with Peggy Thrasher [employer] 02/14/2021 Cough Telemedicine Establi sted Patient with Traci Dennison [employer] 01/01/2021 Fever Telemedicine Establi sted Patient with Traci Dennison [facility] 01/01/2021 Z20.822 - Contact with and ( suspected) exposure to COVID-19 Telemedicine Establisted Patient with Traci Dennison [employer] 01/01/2021 Bipolar I disorder, most rec ent episode, depressed Established Patient with Farrah Jarrett [facility] 06/03/2020 Paranoid schizophrenia per p atient report Established Patient with Farrah Hernandezs [facility] 06/03/2020 Post-traumatic stress disord er per patient report Established [facility]/2020 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 Patient with Traci Dennison [employer] 06/03/2020 Overweight Medical Established Patient with Traci Dennison [employer] 06/03/2020 Z68.29 - Body mass index [BM I] 29.0-29.9, adult Medical Established Patient with Traci Dennison [employer] 06/03/2020 Anxiety disorder NOS Medical Established Patient with Traci Dennison [employer] 01/26/2020 Bipolar disorder NOS Medical Established Patient with Traci Dennison [employer] 01/26/2020 Infection of tooth Medical Established Patient with Traci Dennison [facility] 01/26/2020 Z68.20 - Body mass index [BM I] 20.0-20.9, adult Medical Established Patient with Traci Dennison [employer] 01/26/2020 Bipolar I disorder, most rec ent episode, mixed Established Patient with Hannah Short [facility] 01/08/2020 Generalized anxiety disorder Establis hed Patient with Hannah Short [facility] 01/08/2020 Diabetes Risk Test Score was one score 01/08/2020 Medical Established Patient with Peggy Anna Marie [employer] 01/08/2020 Overweight Medical Established Patient with Peggy Anna Marie [employer] 01/08/2020 Z68.27 - Body mass index (BM I) 27.0-27.9, adult Medical Established Patient with Peggy Anna Marie [employer] 01/08/2020 Bipolar I disorder, most rec ent episode, mixed Established Patient with Hannah Short [facility] 12/25/2019 Generalized anxiety disorder Establis hed Patient with Hannah Short [facility] 12/25/2019 Overweight Medical Established Patient with Peggy Anna Marie [employer] 12/25/2019 Z68.26 - Body mass index (BM I) 26.0-26.9, adult Medical Established Patient with Peggy Thrasher [employer] 12/25/2019 [facility] Work Phone: 1(293) 599-221801-04-2022 Evaluation note Includes: Assessments for all patient encounters Findings Encounter Date Bipolar schizoaffective disorder BH Esta blished Patient with Farrah Jarrett [facility] 04/15/2021 Anxiety disorder NOS Medical Established Patient with Traci Dennison [employer] 04/15/2021 Assessment of body mass index Medical Es tablished Patient with Traci Dennison [employer] 04/15/2021 Bipolar disorder NOS Medical Established Patient with Tracialyx Dennison [employer] 04/15/2021 Anxiety disorder NOS BH Established Melanie ent with Hannah Short [facility] 04/03/2021 Bipolar I disorder, most rec ent episode, depressed BH Established Patient with Hannah Short [facility] 04/03/2021 Nicotine dependence Established Patie nt with Hannah Short [facility] 04/03/2021 Nicotine dependence Established Patie nt with Hannah Short LISWS 04/03/2021 Undifferentiated schizophren ia per patient reported history Established Patient with Hannah Short [facility] 04/03/2021 A home test was negative Medic al Established Patient with Traci Dennison [employer] 04/03/2021 Assessment of body mass index Medical Es tablished Patient with Traci Dennison [employer] 04/03/2021 Epilepsy, not intractable, w ithout status epilepticus Medical Established Patient with Traci Dennison [employer] 04/03/2021 Mixed affective bipolar diso rder, moderate Medical Established Patient with Tracialyx Dennison [employer] 04/03/2021 Urinary tract infection Medical Establis hed Patient with Traci Juma [employer] 04/03/2021 Visit for: screening for STD Medical Est ablished Patient with Traci Dennison [employer] 04/03/2021 Assessment of visit for: scr eening for human immunodeficiency virus Medical Established Patient with Peggy Anna Marie [employer] 02/14/2021 Diabetes Risk Test Score was three score 02/14/2021 Medical Established Patient with Peggy Anna Marie [employer] 02/14/2021 Diarrhea Medical Established Patient with Peggy Anna Marie [employer] 02/14/2021 Nicotine dependence Medical Established Patient with Peggy Anna Marie [employer] 02/14/2021 Z68.28 - Body mass index [BM I] 28.0-28.9, adult Medical Established Patient with Peggy Thrasher [employer] 02/14/2021 Cough Telemedicine Establi sted Patient with Traci Dennison [facility] 01/01/2021 Fever Telemedicine Establi sted Patient with Traci Dennison [facility] 01/01/2021 Z20.822 - Contact with and ( suspected) exposure to COVID-19 Telemedicine Establisted Patient with Traci Dennison [employer] 01/01/2021 Bipolar I disorder, most rec ent episode, depressed Established Patient with Farrah Jarrett [facility] 06/03/2020 Paranoid schizophrenia per p atient report Established Patient with Farrah Hernandezs [facility] 06/03/2020 Post-traumatic stress disord er per patient report Established Patient with Farrah Hernandezs [facility] 06/03/2020 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 Patient with Traci Dennison [facility] 06/03/2020 Overweight Medical Established Patient with Traci Dennison [facility] 06/03/2020 Z68.29 - Body mass index [BM I] 29.0-29.9, adult Medical Established Patient with Traci Dennison [facility] 06/03/2020 Anxiety disorder NOS Medical Established Patient with Traci Dennison [facility] 01/26/2020 Bipolar disorder NOS Medical Established Patient with Traci Dennison [facility] 01/26/2020 Infection of tooth Medical Established Patient with Traci Dennison [facility] 01/26/2020 Z68.20 - Body mass index [BM I] 20.0-20.9, adult Medical Established Patient with Traci Dennison [facility] 01/26/2020 Bipolar I disorder, most rec ent episode, mixed Established Patient with Hannah Short LISWS 01/08/2020 Generalized anxiety disorder Establis hed Patient with Hannah Short [facility]IS[facility] 01/08/2020 Diabetes Risk Test Score was one score 01/08/2020 Medical Established Patient with Peggy Thrasher [employer] 01/08/2020 Overweight Medical Established Patient with Peggy Leoen [facility] 01/08/2020 Z68.27 - Body mass index (BM I) 27.0-27.9, adult Medical Established Patient with Peggy Thrasher [employer] 01/08/2020 Bipolar I disorder, most rec ent episode, mixed Established Patient with Hananh Short [facility] 12/25/2019 Generalized anxiety disorder Establis hed Patient with Hannah Short [facility] 12/25/2019 Overweight Medical Established Patient with Peggy Thrasher [employer] 12/25/2019 Z68.26 - Body mass index (BM I) 26.0-26.9, adult Medical Established Patient with Peggy Thrasher [employer] 12/25/2019 [facility] Work Phone: 1([phone]) 159-731612-23-2021 Evaluation note Includes: Assessments for all patient encounters Findings Encounter Date Anxiety disorder NOS Established Melanie ent with Hannah Short LISWS 04/03/2021 Bipolar I disorder, most rec ent episode, depressed Established Patient with Hannah Short [facility] 04/03/2021 Nicotine dependence Established Patie nt with Hannah Short [facility]ISWS 04/03/2021 Nicotine dependence Established Patie nt with Hannah Short [facility] 04/03/2021 Undifferentiated schizophren ia per patient reported history Established Patient with Hannah Short [facility] 04/03/2021 A home test was negative Medic al Established Patient with Traci Juma [facility] 04/03/2021 Assessment of body mass index Medical Es tablished Patient with Traci Juma [employer] 04/03/2021 Epilepsy, not intractable, w ithout status epilepticus Medical Established Patient with Traci Dennison [employer] 04/03/2021 Mixed affective bipolar diso rder, moderate Medical Established Patient with Tracialyx Dennison [facility] 04/03/2021 Urinary tract infection Medical Establis hed Patient with Traci Dennison [facility] 04/03/2021 Visit for: screening for STD Medical Est ablished Patient with Traci Dennison [facility] 04/03/2021 Assessment of visit for: scr eening for human immunodeficiency virus Medical Established Patient with Peggy Thrasher [facility] 02/14/2021 Diabetes Risk Test Score was three score 02/14/2021 Medical Established Patient with Peggy Thrasher [employer] 02/14/2021 Diarrhea Medical Established Patient with Peggy Anna Marie [facility] 02/14/2021 Nicotine dependence Medical Established Patient with Peggy Anna Marie [facility] 02/14/2021 Z68.28 - Body mass index [BM I] 28.0-28.9, adult Medical Established Patient with Peggy Anna Marie [employer] 02/14/2021 Cough Telemedicine Establi sted Patient with Traci Dennison [facility] 01/01/2021 Fever Telemedicine Establi sted Patient with Traci Dennison [facility] 01/01/2021 Z20.822 - Contact with and ( suspected) exposure to COVID-19 Telemedicine Establisted Patient with Traci Dennison [employer] 01/01/2021 Bipolar I disorder, most rec ent episode, depressed Established Patient with Farrah Jarrett [facility] 06/03/2020 Paranoid schizophrenia per p atient report Established Patient with Farrah Jarrett [facility] 06/03/2020 Post-traumatic stress disord er per patient report Established Patient with Farrah Jarrett [facility] 06/03/2020 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 Patient with Traci Dennison [employer] 06/03/2020 Overweight Medical Established Patient with Traci Dennison [facility] 06/03/2020 Z68.29 - Body mass index [BM I] 29.0-29.9, adult Medical Established Patient with Traci Dennison [facility] 06/03/2020 Anxiety disorder NOS Medical Established Patient with Traci Dennison [facility] 01/26/2020 Bipolar disorder NOS Medical Established Patient with Traci Dennison [facility] 01/26/2020 Infection of tooth Medical Established Patient with Traci Dennison [facility] 01/26/2020 Z68.20 - Body mass index [BM I] 20.0-20.9, adult Medical Established Patient with Traci Dennison [facility] 01/26/2020 Bipolar I disorder, most rec ent episode, mixed Established Patient with Hannah Short [facility] 01/08/2020 Generalized anxiety disorder Establis hed Patient with Hannah Short [facility] 01/08/2020 Diabetes Risk Test Score was one score 01/08/2020 Medical Established Patient with Peggy Thrasher [facility] 01/08/2020 Overweight Medical Established Patient with Peggy Thrasher [facility] 01/08/2020 Z68.27 - Body mass index (BM I) 27.0-27.9, adult Medical Established Patient with Peggy Anna Marie [facility] 01/08/2020 Bipolar I disorder, most rec ent episode, mixed Established Patient with Hannah Short [facility] 12/25/2019 Generalized anxiety disorder Establis hed Patient with Hannah Short [facility] 12/25/2019 Overweight Medical Established Patient with Peggy Anna Marie [facility] 12/25/2019 Z68.26 - Body mass index (BM I) 26.0-26.9, adult Medical Established Patient with Peggy Leoen 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 02/14/2021 Diarrhea Medical Established Patient with Peggy Anna Marie [facility] 02/14/2021 Z68.28 - Body mass index [BM I] 28.0-28.9, adult Medical Established Patient with Peggy Anna Marie [facility] 02/14/2021 Cough Telemedicine Establi sted Patient with Traci Dennison [facility] 01/01/2021 Fever Telemedicine Establi sted Patient with Traci Dennison [facility] 01/01/2021 Z20.822 - Contact with and ( suspected) exposure to COVID-19 Telemedicine Establisted Patient with Traci Dennison [facility] 01/01/2021 Bipolar I disorder, most rec ent episode, depressed Established Patient with Farrah Jarrett [facility] 06/03/2020 Paranoid schizophrenia per p atient report Established Patient with Farrah Hernandezs [facility] 06/03/2020 Post-traumatic stress disord er per patient report Established Patient with Farrah Hernandezs [facility] 06/03/2020 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 Patient with Traci Dennison [facility] 06/03/2020 Overweight Medical Established Patient with Traci Dennison [facility] 06/03/2020 Z68.29 - Body mass index [BM I] 29.0-29.9, adult Medical Established Patient with Traci Dennison [facility] 06/03/2020 Anxiety disorder NOS Medical Established Patient with Traci Dennison [employer] 01/26/2020 Bipolar disorder NOS Medical Established Patient with Traci Dnenison [facility] 01/26/2020 Infection of tooth Medical Established Patient with Traci Dennison [employer] 01/26/2020 Z68.20 - Body mass index [BM I] 20.0-20.9, adult Medical Established Patient with Traci Dennison [employer] 01/26/2020 Bipolar I disorder, most rec ent episode, mixed BH Established Patient with Hannah Short [facility] 01/08/2020 Generalized anxiety disorder BH Establis hed Patient with Hannah Short [facility] 01/08/2020 Diabetes Risk Test Score was one score 01/08/2020 Medical Established Patient with Peggy Thrasher [employer] 01/08/2020 Overweight Medical Established Patient with Peggy Thrasher [facility] 01/08/2020 Z68.27 - Body mass index (BM I) 27.0-27.9, adult Medical Established Patient with Peggy Thrasher [employer] 01/08/2020 Bipolar I disorder, most rec ent episode, mixed Established Patient with Hannah Short [facility] 12/25/2019 Generalized anxiety disorder BH Establis hed Patient with Hannah Short [facility] 12/25/2019 Overweight Medical Established Patient with Peggy Thrasher [facility] 12/25/2019 Z68.26 - Body mass index (BM I) 26.0-26.9, adult Medical Established Patient with Peggy Thrasher [facility] 12/25/2019 [facility] Work Phone: 1([phone]) [phone] Evaluation note Includes: Assessments for all patient encounters Findings Encounter Date Assessment of visit for: lupe marinellining for human immunodeficiency virus Medical Established Patient with Peggy Thrasher [facility] 02/14/2021 Diabetes Risk Test Score was three score 02/14/2021 Medical Established Patient with Peggy Thrasher [facility] 02/14/2021 Diarrhea Medical Established Patient with Peggy Thrasher [facility] 02/14/2021 Nicotine dependence Medical Established Patient with Peggy Thrasher [facility] 02/14/2021 Z68.28 - Body mass index [BM I] 28.0-28.9, adult Medical Established Patient with Peggy Anna Marie [facility] 02/14/2021 Cough Telemedicine Establi sted Patient with Traci Dennison [facility] 01/01/2021 Fever Telemedicine Establi sted Patient with Traci Dennison [facility] 01/01/2021 Z20.822 - Contact with and ( suspected) exposure to COVID-19 Telemedicine Establisted Patient with Traci Dennison [facility] 01/01/2021 Bipolar I disorder, most rec ent episode, depressed Established Patient with Farrah Jarrett [facility] 06/03/2020 Paranoid schizophrenia per p atient report Established Patient with Farrah Jarrett [facility] 06/03/2020 Post-traumatic stress disord er per patient report Established Patient with Farrah Jarrett [facility] 06/03/2020 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 Patient with Traci Dennison [facility] 06/03/2020 Overweight Medical Established Patient with Traci Dennison [facility] 06/03/2020 Z68.29 - Body mass index [BM I] 29.0-29.9, adult Medical Established Patient with Traci Dennison [facility] 06/03/2020 Anxiety disorder NOS Medical Established Patient with Traci Dennison [facility] 01/26/2020 Bipolar disorder NOS Medical Established Patient with Traci Dennison [facility] 01/26/2020 Infection of tooth Medical Established Patient with Traci Dennison [facility] 01/26/2020 Z68.20 - Body mass index [BM I] 20.0-20.9, adult Medical Established Patient with Traci Dennison [facility] 01/26/2020 Bipolar I disorder, most rec ent episode, mixed Established Patient with Hannah Short [facility] 01/08/2020 Generalized anxiety disorder Establis hed Patient with Hannah Short [facility] 01/08/2020 Diabetes Risk Test Score was one score 01/08/2020 Medical Established Patient with Peggy Thrasher [facility] 01/08/2020 Overweight Medical Established Patient with Peggy Leoen [facility] 01/08/2020 Z68.27 - Body mass index (BM I) 27.0-27.9, adult Medical Established Patient with Peggy Anna Marie [facility] 01/08/2020 Bipolar I disorder, most rec ent episode, mixed Established Patient with Hannah Short [facility] 12/25/2019 Generalized anxiety disorder Establis hed Patient with Hannah Short [facility] 12/25/2019 Overweight Medical Established Patient with Peggy Anna Marie [facility] 12/25/2019 Z68.26 - Body mass index (BM I) 26.0-26.9, adult Medical Established Patient with Peggyisis Thrasher [facility] 12/25/2019 [facility] Work Phone: 1([phone]) [phone] Hospital Discharge instructions* Instructions* Serenity Will, DO - 02/07/2021 Follow-up with your primary care provider next week, and call to schedule follow-up with GI doctor.For follow-up as soon as possible. [facility] any [facility] Phone: 1([phone]) 227-944410-27-2021 Hospital Discharge instructions* Instructions* Мария Yee, - 02/05/2021 Fill and take the Pepcid and Maalox as prescribed. Follow-up with your family doctor or a electro mechanical assembler. Return to the emergency department for new, worsening or worrisome symptoms. * Attachments The following attachments cannot be sent through Care Everywhere. 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 Ovarian cyst 12/25/2019 Post-traumatic stress disorder 0 History of asthma 12/25/2019 History of schizophrenia 12/25/2019 History of bipolar disorder NOS 12/25/19 20 History of depression 12/25/2019 History of psychiatric disorders 020 [facility] Work Phone: 1(973) 992-524309-28-2020 Instructions Includes: Instructions for all patient encounters Instructions to patient Intervention and counseling on cessation of tobacco use, 3-10 minutes Last Documented On 0 1:15PM ; [facility] Education and Decision Aids were provided during visit for: Discussed nutritional needs teach healthy choices including fruits and vegetables Last Documented On 3 12:03PM ; [facility] Patient education about a pr oper diet Last Documented On 3 12:03PM ; [facility] Discussed concerns about exe rcise : promote physical activity ~ ~Will keep medication the same Last Documented On 3 4:46AM ; [facility] Not requesting contraception Last Documented On 3 12:04PM ; [facility] Discussed nutritional needs teach healthy choices including fruits and vegetables Last Documented On 3 9:09AM ; [facility] Patient education about a pr oper diet Last Documented On 3 9:09AM ; [facility] Patient education about an a sthma action plan Last Documented On 3 9:44AM ; [facility] Discussed concerns about exe rcise : promote physical activity ~ ~Will restart symbicort ~ ~Follow up in one month for asthma Last Documented On 3 12:28PM ; [facility] Discussed nutritional needs teach healthy choices including fruits and vegetables Last Documented On 2 10:58AM ; [facility] Patient education about a pr oper diet Last Documented On 2 10:58AM ; [facility] Discussed concerns about exe rcise : promote physical activity Last Documented On 2 10:58AM ; [facility] Discussed nutritional needs teach healthy choices including fruits and vegetables Last Documented On 2 11:41AM ; [facility] Patient education about a pr oper diet Last Documented On 2 11:41AM ; [facility] Discussed concerns about exe rcise : promote physical activity Last Documented On 2 11:41AM ; [facility] offered active listening and supportive feedback; normalized emotions and feelings, also provided pt time to process any current stressors ~[facility] discussed benefits of counseling and supported pt in following through with scheduled appt. ~[facility] encouraged pt to continue to make time to implement self-care regimen to assist in improving their mood Last Documented On 2 2:29PM ; [facility] Provided supportive listenin g and reflective feedback; monitored mood, explored symptoms, assessed functioning. ~Discussed medication use/compliance. ~Promoted use of healthy coping mechanisms and positive support, as needed Last Documented On 2 1:25PM ; [facility] Discussed nutritional needs teach healthy choices including fruits and vegetables Last Documented On 2 12:54PM ; [facility] Patient education about a pr oper diet Last Documented On 2 12:54PM ; [facility] Discussed concerns about exe rcise : promote physical activity Last Documented On 2 12:54PM ; [facility] Discussed nutritional needs teach healthy choices including fruits and vegetables Last Documented On 2 11:39AM ; [facility] Patient education about a pr oper diet Last Documented On 2 11:39AM ; [facility] Discussed concerns about exe rcise : promote physical activity Last Documented On 2 11:39AM ; [facility] Discussed nutritional needs teach healthy choices including fruits and vegetables Last Documented On 2 10:29AM ; [facility] Patient education about a pr oper diet Last Documented On 2 10:29AM ; [facility] Discussed concerns about exe rcise : promote physical activity Last Documented On 2 10:29AM ; [facility] Discussed current self-care methods/coping skills. ~Validated and normalized patient's feelings while assisting process recent events. ~Discussed ongoing counseling. ~Discussed lifestyle changes to address chronic illness. ~Supported patient's personal health goals Last Documented On 2 8:50PM ; [facility] Discussed nutritional needs teach healthy choices including fruits and vegetables Last Documented On 2 11:15AM ; [facility] Patient education about a pr oper diet Last Documented On 2 11:15AM ; [facility] Discussed concerns about exe rcise : promote physical activity Last Documented On 2 11:15AM ; [facility] Discussed current self-care methods/coping skills. ~Validated and normalized patient's feelings while assisting process recent events. ~Discussed ongoing mental health services. ~Discussed lifestyle changes to address chronic illness. ~Supported patient's personal health goals. ~ ~Reports feeling better since beginning new meds. Also voices and visual hallucinations have stopped; reports voices were not commanfing Last Documented On 2 8:54PM ; [facility] offered active and suppo rtive listening and normalized emotions and feelings. ~[facility] discussed with patient and significant other in the room with her crisis resources. Patient is agreeable to contacting one of the crisis resources should moods worsen or call 911 or go to the Emergency Room. Patient reports that she can also speak with significant others Mom or go to her kids fathers house. ~[facility] and PCP discussed plan to follow-up with psychiatry and counseling and a new referral being sent to [facility]. If patient is not accepted back as a patient with Dr. Dickerson, will look into other resources Last Documented On 1 7:15PM ; [facility] Discussed nutritional needs teach healthy choices including fruits and vegetables Last Documented On 1 1:18PM ; [facility] Patient education about a pr oper diet Last Documented On 1 1:18PM ; [facility] Discussed concerns about exe rcise : promote physical activity Last Documented On 1 1:18PM ; [facility] Discussed nutritional needs teach healthy choices including fruits and vegetables Last Documented On 1 10:37AM ; [facility] Patient education about a pr oper diet Last Documented On 1 10:37AM ; [facility] Discussed concerns about exe rcise : promote physical activity Last Documented On 1 10:37AM ; [facility] Explored current symptoms an d stressors. Educaated patient re importance of counseling and provided brief review of EMDR treatment. ~Encouraged patient to engage in ongoing counseling. ~ Last Documented On 1 10:50PM ; [facility] Discussed nutritional needs teach healthy choices including fruits and vegetables Last Documented On 1 6:53PM ; [facility] Patient education about a pr oper diet Last Documented On 1 6:53PM ; [facility] Discussed concerns about exe rcise : promote physical activity Last Documented On 1 6:53PM ; [facility] provided active listenin g, support and helped patient process through current symptoms and stressors related to mood and irritability. ~[facility] discussed coping skills that patient has tried as well as discussed potential benefit of counseling. ~ ~ Last Documented On 0 11:49AM ; [facility] Discussed nutritional needs teach healthy choices including fruits and vegetables Last Documented On 0 1:15PM ; [facility] Patient education about a pr oper diet Last Documented On 0 1:15PM ; [facility] Patient education about a pr oper diet Last Documented On 0 1:33PM ; [facility] Patient education about meal planning Last Documented On 0 1:33PM ; [facility] Education about changing eat ing habits Last Documented On 0 1:33PM ; [facility] Patient education about high fiber diet Last Documented On 0 1:33PM ; [facility] Patient education about low fat diet Last Documented On 0 1:33PM ; [facility] Patient education about low cholesterol diet Last Documented On 0 1:33PM ; [facility] Patient education about low carbohydrate diet Last Documented On 0 1:33PM ; [facility] Patient education about high protein diet Last Documented On 0 1:33PM ; [facility] Discussed concerns about exe rcise : promote physical activity Last Documented On 0 1:15PM ; [facility] provided active listenin g, support and helped patient process through current symptoms and stressors due to pain, loss of work and low frustration tolerance. ~[facility] discussed coping skills and supports that patient can implement inclduing meditation, mindfulness, and deep breathing activities. [facility] provided resources to patient to work on implementing. ~[facility] discussed with patient re-establishing care for therapy and provided patient with resource list. ~ Last Documented On 0 6:15PM ; [facility] Discussed nutritional needs teach healthy choices including fruits and vegetables Last Documented On 0 1:12PM ; [facility] Patient education about a pr oper diet Last Documented On 0 1:12PM ; [facility] Patient education about a pr oper diet Last Documented On 0 1:46PM ; [facility] Patient education about meal planning Last Documented On 0 1:46PM ; [facility] Education about changing eat ing habits Last Documented On 0 1:46PM ; [facility] Patient education about high fiber diet Last Documented On 0 1:46PM ; [facility] Patient education about low fat diet Last Documented On 0 1:46PM ; [facility] Patient education about low cholesterol diet Last Documented On 0 1:46PM ; [facility] Patient education about low carbohydrate diet Last Documented On 0 1:46PM ; [facility] Patient education about high protein diet Last Documented On 0 1:46PM ; [facility] Discussed concerns about exe rcise : promote physical activity Last Documented On 0 1:12PM ; [facility] Work Phone: Evaluation note* Diagnosis Abdominal pain, epigastric- Primary documented in this encounter [employer] Phone: [email or web address] note* Diagnosis Infective otitis externa of left ear- Primary Acute serous otitis media, recurrence not specified, unspecified laterality documented in this encounter [employer] Phone: evalxsxeyl note* Diagnosis Injury of right wrist, initial encounter- Primary documented in this encounter [employer] Phone: evalektwwt note* Diagnosis Suspected COVID-19 virus infection- Primary documented in this encounter [employer] Phone: evalxbogss note* Diagnosis Abdominal pain, epigastric- Primary documented in this encounter [employer] Phone: evalpiyumd note* Diagnosis Abdominal pain, epigastric- Primary Non-intractable vomiting with nausea, unspecified vomiting type Diarrhea, unspecified type documented in this encounter [employer] Phone: evaluation note* Diagnosis Pain of upper abdomen- Primary Abdominal pain, other specified site documented in this encounter [employer] Phone: evalnqyzue note* Diagnosis Right shoulder injury, initial encounter- Primary documented in this encounter [employer] Phone: evalwirifl note* Diagnosis Periumbilical abdominal pain- Primary Abdominal pain, periumbilic documented in this encounter [employer] Phone: evaldtlhlp note* Diagnosis Folliculitis- Primary Other specified disease of hair and hair follicles Possible exposure to STD Other specified personal history presenting hazards to health documented in this encounter [employer] Phone: evaluation note* Diagnosis Gastroenteritis- Primary Other and unspecified noninfectious gastroenteritis and colitis documented in this encounter [employer] Phone: evaluation note* Diagnosis Diarrhea, unspecified type documented in this encounter [employer] Phone: evalpzkyhz note* Diagnosis Palpitations documented in this encounter [employer] Phone: evaluation note* Diagnosis Nausea vomiting and diarrhea- Primary Nausea with vomiting documented in this encounter [employer] Phone: evaluation note Includes: Assessments for all patient encounters Findings Encounter Date [Body mass index [BMI] 33.0- 33.9, adult] assessment of body mass index Medical Established Patient with Srinivasa Ward BIOLOGY ADJUNCT INSTRUCTOR 11/30/2022 Last Documented On 3 12:28PM ; [facility] Anxiety disorder NOS Medical Established Patient with Srinivasa Ed BIOLOGY ADJUNCT INSTRUCTOR 11/30/2022 Last Documented On 3 12:28PM ; [facility] Diabetes Risk Test Score was four score 11/30/2022 Medical Established Patient with Srinivasa Ed BIOLOGY ADJUNCT INSTRUCTOR 11/30/2022 Last Documented On 3 12:28PM ; [facility] Uncomplicated mild persistent asthma Med ical Established Patient with Srinivasa Ed BIOLOGY ADJUNCT INSTRUCTOR 11/30/2022 Last Documented On 3 12:28PM ; [facility] Visit for: routine adult H&P with abnormal findings Medical Established Patient with Srinivasa Ed BIOLOGY ADJUNCT INSTRUCTOR 11/30/2022 Last Documented On 3 12:28PM ; [facility] [Body mass index [BMI] 30.0- 30.9, adult] assessment of body mass index Medical Established Patient with Srinivasa Ed BIOLOGY ADJUNCT INSTRUCTOR 01/22/2022 Last Documented On 2 6:17PM ; [facility] Dysuria Medical Established Patient with Srinivasa Ed BIOLOGY ADJUNCT INSTRUCTOR 01/22/2022 Last Documented On 2 6:17PM ; [facility] Bipolar schizoaffective disorder BH Esta blished Patient with Ina Díaz LPCC-S 12/11/2021 Last Documented On 2 2:31PM ; [facility] Assessment of body mass inde x [Body mass index [BMI] 26.0-26.9, adult] Medical Established Patient with Srinivasa Ed BIOLOGY ADJUNCT INSTRUCTOR 12/11/2021 Last Documented On 2 12:34PM ; [facility] Bipolar schizoaffective disorder BH Esta blished Patient with Ina Díaz LPCC-S 11/25/2021 Last Documented On 2 1:25PM ; [facility] Anxiety disorder NOS Medical Established Patient with Traci Juma BIOLOGY ADJUNCT INSTRUCTOR 11/25/2021 Last Documented On 2 3:06PM ; [facility] Urinary tract infection Medical Establis hed Patient with Traci Juma BIOLOGY ADJUNCT INSTRUCTOR 11/25/2021 Last Documented On 2 3:06PM ; [facility] Z68.27 - Body mass index [BM I] 27.0-27.9, adult Medical Established Patient with Traci Juma BIOLOGY ADJUNCT INSTRUCTOR 11/25/2021 Last Documented On 2 3:06PM ; [facility] Anxiety disorder NOS Medical Established Patient with Traci Juma BIOLOGY ADJUNCT INSTRUCTOR 08/13/2021 Last Documented On 2 8:18AM ; [facility] Assessment of body mass index Medical Es tablished Patient with Traci Juma BIOLOGY ADJUNCT INSTRUCTOR 08/13/2021 Last Documented On 2 8:18AM ; [facility] Chronic gastritis without hemorrhage Med ical Established Patient with Traci Juma BIOLOGY ADJUNCT INSTRUCTOR 08/13/2021 Last Documented On 2 8:18AM ; [facility] Diverticulosis of intestine Medical Esta blished Patient with Tarci Juma BIOLOGY ADJUNCT INSTRUCTOR 08/13/2021 Last Documented On 2 8:18AM ; [facility] Urinary tract infection Medical Establis hed Patient with Traci Juma BIOLOGY ADJUNCT INSTRUCTOR 08/13/2021 Last Documented On 2 8:18AM ; [facility] Anxiety disorder NOS Medical Established Patient with Traci Juma BIOLOGY ADJUNCT INSTRUCTOR 07/17/2021 Last Documented On 2 8:10AM ; [facility] Other hypothyroidism Medical Established Patient with Traci Dennison BIOLOGY ADJUNCT INSTRUCTOR 07/17/2021 Last Documented On 2 8:10AM ; [facility] Upper respiratory infection Medical Esta blished Patient with Traci Dennison BIOLOGY ADJUNCT INSTRUCTOR 07/17/2021 Last Documented On 2 8:10AM ; [facility] Visit for: routine adult H&P with abnormal findings Medical Established Patient with Traci Dennison BIOLOGY ADJUNCT INSTRUCTOR 07/17/2021 Last Documented On 2 8:10AM ; [facility] Visit for: screening for lip oid disorders Medical Established Patient with Traci Dennison BIOLOGY ADJUNCT INSTRUCTOR 07/17/2021 Last Documented On 2 8:10AM ; [facility] Vitamin B12 deficiency Medical Establish ed Patient with Traci Dennison BIOLOGY ADJUNCT INSTRUCTOR 07/17/2021 Last Documented On 2 8:10AM ; [facility] Vitamin D deficiency Medical Established Patient with Traci Dennison BIOLOGY ADJUNCT INSTRUCTOR 07/17/2021 Last Documented On 2 8:10AM ; [facility] Z68.28 - Body mass index [BM I] 28.0-28.9, adult Medical Established Patient with Traci Dennison BIOLOGY ADJUNCT INSTRUCTOR 07/17/2021 Last Documented On 2 8:10AM ; [facility] Allergic rhinitis Telemedicine Establi sted Patient with Traci Dennison BIOLOGY ADJUNCT INSTRUCTOR 07/16/2021 Last Documented On 2 8:23AM ; [facility] Exposure to COVID-19 Telemedicine Establ isted Patient with Traci Dennison BIOLOGY ADJUNCT INSTRUCTOR 04/29/2021 Last Documented On 2 8:02PM ; [facility] Bipolar schizoaffective disorder BH Esta blished Patient with Farrah Jarrett LPCC-S 04/15/2021 Last Documented On 2 1:07PM ; [facility] Anxiety disorder NOS Medical Established Patient with Traci Dennison BIOLOGY ADJUNCT INSTRUCTOR 04/15/2021 Last Documented On 2 9:06AM ; [facility] Assessment of body mass index Medical Es tablished Patient with Traci Dennison BIOLOGY ADJUNCT INSTRUCTOR 04/15/2021 Last Documented On 2 9:06AM ; [facility] Bipolar disorder NOS Medical Established Patient with Traci Dennison BIOLOGY ADJUNCT INSTRUCTOR 04/15/2021 Last Documented On 2 9:06AM ; [facility] Anxiety disorder NOS Telebehavioral H ealth with Farrah Jarrett LPCC-S 04/09/2021 Last Documented On 2 9:05AM ; [facility] Bipolar disorder NOS Telebehavioral H ealth with Farrah Jarrett LPCC-S 04/09/2021 Last Documented On 2 9:05AM ; [facility] Anxiety disorder NOS Established Patient with Hannah Short LISWS 04/03/2021 Last Documented On 1 7:15PM ; [facility] Bipolar I disorder, most rec ent episode, depressed Established Patient with Hannah Short LISWS 04/03/2021 Last Documented On 1 7:15PM ; [facility] Nicotine dependence Established Patient with Hannah Short LISWS 04/03/2021 Last Documented On 1 7:15PM ; [facility] Nicotine dependence Established Patient with Hannah Short LISWS 04/03/2021 Last Documented On 1 7:15PM ; [facility] Undifferentiated schizophren ia per patient reported history Established Patient with Hannah Short LISWS 04/03/2021 Last Documented On 1 7:15PM ; [facility] A home test was negative Medic al Established Patient with Traci Dennison BIOLOGY ADJUNCT INSTRUCTOR 04/03/2021 Last Documented On 1 8:11PM ; [facility] Assessment of body mass index Medical Es tablished Patient with Traci Dennison BIOLOGY ADJUNCT INSTRUCTOR 04/03/2021 Last Documented On 1 8:11PM ; [facility] Epilepsy, not intractable, w ithout status epilepticus Medical Established Patient with Traci Dennison BIOLOGY ADJUNCT INSTRUCTOR 04/03/2021 Last Documented On 1 8:11PM ; [facility] Mixed affective bipolar diso rder, moderate Medical Established Patient with Traci Dennison BIOLOGY ADJUNCT INSTRUCTOR 04/03/2021 Last Documented On 1 8:11PM ; [facility] Urinary tract infection Medical Establis hed Patient with Traci Dennison [facility] 04/03/2021 Last Documented On 1 8:11PM ; [facility] Visit for: screening for STD Medical Est ablished Patient with Traci Dennison BIOLOGY ADJUNCT INSTRUCTOR 04/03/2021 Last Documented On 1 8:11PM ; [facility] Assessment of visit for: scr eening for human immunodeficiency virus Medical Established Patient with Peggy Thrasher [facility] 02/14/2021 Last Documented On 1 1:16PM ; [facility] Diabetes Risk Test Score was three score 02/14/2021 Medical Established Patient with Peggy Thrasher [facility] 02/14/2021 Last Documented On 1 1:16PM ; [facility] Diarrhea Medical Established Patient with Peggy Thrasher [facility] 02/14/2021 Last Documented On 1 1:16PM ; [facility] Nicotine dependence Medical Established Patient with Peggy Thrasher [facility] 02/14/2021 Last Documented On 1 1:16PM ; [facility] Z68.28 - Body mass index [BM I] 28.0-28.9, adult Medical Established Patient with Peggy Thrasher [facility] 02/14/2021 Last Documented On 1 1:16PM ; [facility] Cough Telemedicine Establisted Patient with Traci Dennison [facility] 01/01/2021 Last Documented On 1 6:31PM ; [facility] Fever Telemedicine Establisted Patient with Traci Dennison [facility] 01/01/2021 Last Documented On 1 6:31PM ; [facility] Z20.822 - Contact with and (suspected) exposure to COVID-19 Telemedicine Establisted Patient with Traci Dennison [facility] 01/01/2021 Last Documented On 1 6:31PM ; [facility] Bipolar I disorder, most rec ent episode, depressed Established Patient with Farrah Jarrett LPCC-S 06/03/2020 Last Documented On 1 10:50PM ; [facility] Paranoid schizophrenia per p atient report Established Patient with Farrah Jarrett LPCC-S 06/03/2020 Last Documented On 1 10:50PM ; [facility] Post-traumatic stress disord er per patient report Established Patient with Farrah Jarrett LPCC-S 06/03/2020 Last Documented On 1 10:50PM ; [facility] 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 Patient with Traci Dennison BIOLOGY ADJUNCT INSTRUCTOR 06/03/2020 Last Documented On 1 8:25AM ; [facility] Overweight Medical Established Patient with Traci Juma BIOLOGY ADJUNCT INSTRUCTOR 06/03/2020 Last Documented On 1 8:25AM ; [facility] Z68.29 - Body mass index [BM I] 29.0-29.9, adult Medical Established Patient with Traci Dennison BIOLOGY ADJUNCT INSTRUCTOR 06/03/2020 Last Documented On 1 8:25AM ; [facility] Anxiety disorder NOS Medical Established Patient with Traci Dennison BIOLOGY ADJUNCT INSTRUCTOR 01/26/2020 Last Documented On 0 7:37PM ; [facility] Bipolar disorder NOS Medical Established Patient with Traci Dennison BIOLOGY ADJUNCT INSTRUCTOR 01/26/2020 Last Documented On 0 7:37PM ; [facility] Infection of tooth Medical Established Patient w ith Traci Dennison BIOLOGY ADJUNCT INSTRUCTOR 01/26/2020 Last Documented On 0 7:37PM ; [facility] Z68.20 - Body mass index [BM I] 20.0-20.9, adult Medical Established Patient with Traci Dennison BIOLOGY ADJUNCT INSTRUCTOR 01/26/2020 Last Documented On 0 7:37PM ; [facility] Bipolar I disorder, most rec ent episode, mixed Established Patient with Hannah Short LISWS 01/08/2020 Last Documented On 0 11:49AM ; [facility] Generalized anxiety disorder Establis hed Patient with Hannah Short LISWS 01/08/2020 Last Documented On 0 11:49AM ; [facility] Diabetes Risk Test Score was one score 01/08/2020 Medical Established Patient with Peggy Anna Marie BIOLOGY ADJUNCT INSTRUCTOR 01/08/2020 Last Documented On 0 1:42PM ; [facility] Overweight Medical Established Patient with Peggy Anna Marie BIOLOGY ADJUNCT INSTRUCTOR 01/08/2020 Last Documented On 0 1:42PM ; [facility] Z68.27 - Body mass index (BM I) 27.0-27.9, adult Medical Established Patient with Peggyisis Thrasher BIOLOGY ADJUNCT INSTRUCTOR 01/08/2020 Last Documented On 0 1:42PM ; [facility] Bipolar I disorder, most rec ent episode, mixed Established Patient with Hannah Short LISWS 12/25/2019 Last Documented On 0 6:16PM ; [facility] Generalized anxiety disorder Establis hed Patient with Hannah Short LISWS 12/25/2019 Last Documented On 0 6:16PM ; [facility] Overweight Medical Established Patient with Peggy Anna Marie BIOLOGY ADJUNCT INSTRUCTOR 12/25/2019 Last Documented On 0 1:54PM ; [facility] Z68.26 - Body mass index (BM I) 26.0-26.9, adult Medical Established Patient with Peggy Thrasher BIOLOGY ADJUNCT INSTRUCTOR 12/25/2019 Last Documented On 0 1:54PM ; [facility] Work Phone: Evaluation note Includes: Assessments for all patient encounters Findings Encounter Date Anxiety disorder NOS Established Patient with Lea Stone MUSEUM ASSISTANT-S 02/19/2023 Last Documented On 3 11:18AM ; [facility] Bipolar schizoaffective disorder Esta blished Patient with Lea Stone MUSEUM ASSISTANT-S 02/19/2023 Last Documented On 3 11:18AM ; [facility] Nicotine dependence Established Patient with Lea Stone MUSEUM ASSISTANT-S 02/19/2023 Last Documented On 3 11:18AM ; [facility] Assessment of body mass index Open Acces s - Established with Srinivasa Ed BIOLOGY ADJUNCT INSTRUCTOR 02/19/2023 Last Documented On 3 12:18PM ; [facility] [Body mass index [BMI] 33.0- 33.9, adult] assessment of body mass index Medical Established Patient with Srinivasa Ed BIOLOGY ADJUNCT INSTRUCTOR 02/05/2023 Last Documented On 3 3:48PM ; [facility] Anxiety disorder NOS Medical Established Patient with Srinivasa Ed BIOLOGY ADJUNCT INSTRUCTOR 02/05/2023 Last Documented On 3 3:48PM ; [facility] Body mass index Medical Established Patient with Srinivasa Ed BIOLOGY ADJUNCT INSTRUCTOR 01/28/2023 Last Documented On 3 8:31PM ; [facility] [Body mass index [BMI] 32.0- 32.9, adult] assessment of body mass index Medical Established Patient with Srinivasa Ed BIOLOGY ADJUNCT INSTRUCTOR 12/31/2022 Last Documented On 3 5:25AM ; [facility] Uncomplicated mild persistent asthma Med ical Established Patient with Srinivasa Ed BIOLOGY ADJUNCT INSTRUCTOR 12/31/2022 Last Documented On 3 5:25AM ; [facility] [Body mass index [BMI] 33.0- 33.9, adult] assessment of body mass index Medical Established Patient with Srinivasa Ed BIOLOGY ADJUNCT INSTRUCTOR 11/30/2022 Last Documented On 3 12:28PM ; [facility] Anxiety disorder NOS Medical Established Patient with Srinivasa Ed BIOLOGY ADJUNCT INSTRUCTOR 11/30/2022 Last Documented On 3 12:28PM ; [facility] Diabetes Risk Test Score was four score 11/30/2022 Medical Established Patient with Srinivasa Ed BIOLOGY ADJUNCT INSTRUCTOR 11/30/2022 Last Documented On 3 12:28PM ; [facility] Uncomplicated mild persistent asthma Med ical Established Patient with Srinivasa Ed BIOLOGY ADJUNCT INSTRUCTOR 11/30/2022 Last Documented On 3 12:28PM ; [facility] Visit for: routine adult H&P with abnormal findings Medical Established Patient with Srinivasa Ed BIOLOGY ADJUNCT INSTRUCTOR 11/30/2022 Last Documented On 3 12:28PM ; [facility] [Body mass index [BMI] 30.0- 30.9, adult] assessment of body mass index Medical Established Patient with Srinivasa Ed BIOLOGY ADJUNCT INSTRUCTOR 01/22/2022 Last Documented On 2 6:17PM ; [facility] Dysuria Medical Established Patient with Srinivasa Ed BIOLOGY ADJUNCT INSTRUCTOR 01/22/2022 Last Documented On 2 6:17PM ; [facility] Bipolar schizoaffective disorder BH Esta blished Patient with Ina Díaz LPCC-S 12/11/2021 Last Documented On 2 2:31PM ; [facility] Assessment of body mass inde x [Body mass index [BMI] 26.0-26.9, adult] Medical Established Patient with Srinivasa Boyceer BIOLOGY ADJUNCT INSTRUCTOR 12/11/2021 Last Documented On 2 12:34PM ; [facility] Bipolar schizoaffective disorder BH Esta blished Patient with Ina Díaz LPCC-S 11/25/2021 Last Documented On 2 1:25PM ; [facility] Anxiety disorder NOS Medical Established Patient with Traci Juma BIOLOGY ADJUNCT INSTRUCTOR 11/25/2021 Last Documented On 2 3:06PM ; [facility] Urinary tract infection Medical Establis hed Patient with Traci Juma BIOLOGY ADJUNCT INSTRUCTOR 11/25/2021 Last Documented On 2 3:06PM ; [facility] Z68.27 - Body mass index [BM I] 27.0-27.9, adult Medical Established Patient with Traci Juma BIOLOGY ADJUNCT INSTRUCTOR 11/25/2021 Last Documented On 2 3:06PM ; [facility] Anxiety disorder NOS Medical Established Patient with Traci Juma BIOLOGY ADJUNCT INSTRUCTOR 08/13/2021 Last Documented On 2 8:18AM ; [facility] Assessment of body mass index Medical Es tablished Patient with Traci Juma BIOLOGY ADJUNCT INSTRUCTOR 08/13/2021 Last Documented On 2 8:18AM ; [facility] Chronic gastritis without hemorrhage Med ical Established Patient with Traci Juma BIOLOGY ADJUNCT INSTRUCTOR 08/13/2021 Last Documented On 2 8:18AM ; [facility] Diverticulosis of intestine Medical Esta blished Patient with Traci Juma BIOLOGY ADJUNCT INSTRUCTOR 08/13/2021 Last Documented On 2 8:18AM ; [facility] Urinary tract infection Medical Establis hed Patient with Traci Juma BIOLOGY ADJUNCT INSTRUCTOR 08/13/2021 Last Documented On 2 8:18AM ; [facility] Anxiety disorder NOS Medical Established Patient with Traci Juma BIOLOGY ADJUNCT INSTRUCTOR 07/17/2021 Last Documented On 2 8:10AM ; [facility] Other hypothyroidism Medical Established Patient with Traci Dennison BIOLOGY ADJUNCT INSTRUCTOR 07/17/2021 Last Documented On 2 8:10AM ; [facility] Upper respiratory infection Medical Esta blished Patient with Traci Dennison BIOLOGY ADJUNCT INSTRUCTOR 07/17/2021 Last Documented On 2 8:10AM ; [facility] Visit for: routine adult H&P with abnormal findings Medical Established Patient with Traci Dennison BIOLOGY ADJUNCT INSTRUCTOR 07/17/2021 Last Documented On 2 8:10AM ; [facility] Visit for: screening for lip oid disorders Medical Established Patient with Traci Dennison BIOLOGY ADJUNCT INSTRUCTOR 07/17/2021 Last Documented On 2 8:10AM ; [facility] Vitamin B12 deficiency Medical Establish ed Patient with Traci Dennison BIOLOGY ADJUNCT INSTRUCTOR 07/17/2021 Last Documented On 2 8:10AM ; [facility] Vitamin D deficiency Medical Established Patient with Traci Dennison BIOLOGY ADJUNCT INSTRUCTOR 07/17/2021 Last Documented On 2 8:10AM ; [facility] Z68.28 - Body mass index [BM I] 28.0-28.9, adult Medical Established Patient with Traci Dennison BIOLOGY ADJUNCT INSTRUCTOR 07/17/2021 Last Documented On 2 8:10AM ; [facility] Allergic rhinitis Telemedicine Establi sted Patient with Traci Dennison BIOLOGY ADJUNCT INSTRUCTOR 07/16/2021 Last Documented On 2 8:23AM ; [facility] Exposure to COVID-19 Telemedicine Establ isted Patient with Traci Dennison BIOLOGY ADJUNCT INSTRUCTOR 04/29/2021 Last Documented On 2 8:02PM ; [facility] Bipolar schizoaffective disorder BH Esta blished Patient with Farrah Jarrett LPCC-S 04/15/2021 Last Documented On 2 1:07PM ; [facility] Anxiety disorder NOS Medical Established Patient with Traci Dennison BIOLOGY ADJUNCT INSTRUCTOR 04/15/2021 Last Documented On 2 9:06AM ; [facility] Assessment of body mass index Medical Es tablished Patient with Traci Dennison BIOLOGY ADJUNCT INSTRUCTOR 04/15/2021 Last Documented On 2 9:06AM ; [facility] Bipolar disorder NOS Medical Established Patient with Traci Dennison BIOLOGY ADJUNCT INSTRUCTOR 04/15/2021 Last Documented On 2 9:06AM ; [facility] Anxiety disorder NOS Telebehavioral H ealth with Farrah Jarrett LPCC-S 04/09/2021 Last Documented On 2 9:05AM ; [facility] Bipolar disorder NOS Telebehavioral H ealth with Farrah Jarrett LPCC-S 04/09/2021 Last Documented On 2 9:05AM ; [facility] Anxiety disorder NOS Established Patient with Hannah Short LISWS 04/03/2021 Last Documented On 1 7:15PM ; [facility] Bipolar I disorder, most rec ent episode, depressed Established Patient with Hannah Short LISWS 04/03/2021 Last Documented On 1 7:15PM ; [facility] Nicotine dependence Established Patient with Hannah Short LISWS 04/03/2021 Last Documented On 1 7:15PM ; [facility] Nicotine dependence Established Patient with Hannah Short LISWS 04/03/2021 Last Documented On 1 7:15PM ; [facility] Undifferentiated schizophren ia per patient reported history Established Patient with Hannah Short LISWS 04/03/2021 Last Documented On 1 7:15PM ; [facility] A home test was negative Medic al Established Patient with Traci Dennison BIOLOGY ADJUNCT INSTRUCTOR 04/03/2021 Last Documented On 1 8:11PM ; [facility] Assessment of body mass index Medical Es tablished Patient with Traci Dennison BIOLOGY ADJUNCT INSTRUCTOR 04/03/2021 Last Documented On 1 8:11PM ; [facility] Epilepsy, not intractable, w ithout status epilepticus Medical Established Patient with Traci Dennison BIOLOGY ADJUNCT INSTRUCTOR 04/03/2021 Last Documented On 1 8:11PM ; [facility] Mixed affective bipolar diso rder, moderate Medical Established Patient with Traci Juma BIOLOGY ADJUNCT INSTRUCTOR 04/03/2021 Last Documented On 1 8:11PM ; [facility] Urinary tract infection Medical Establis hed Patient with Traci Dennison BIOLOGY ADJUNCT INSTRUCTOR 04/03/2021 Last Documented On 1 8:11PM ; [facility] Visit for: screening for STD Medical Est ablished Patient with Traci Dennison BIOLOGY ADJUNCT INSTRUCTOR 04/03/2021 Last Documented On 1 8:11PM ; [facility] Assessment of visit for: scr eening for human immunodeficiency virus Medical Established Patient with Peggy Thrasher BIOLOGY ADJUNCT INSTRUCTOR 02/14/2021 Last Documented On 1 1:16PM ; [facility] Diabetes Risk Test Score was three score 02/14/2021 Medical Established Patient with Peggy Thrasher [facility] 02/14/2021 Last Documented On 1 1:16PM ; [facility] Diarrhea Medical Established Patient with Peggy Thrasher [facility] 02/14/2021 Last Documented On 1 1:16PM ; [facility] Nicotine dependence Medical Established Patient with Peggy Thrasher [facility] 02/14/2021 Last Documented On 1 1:16PM ; [facility] Z68.28 - Body mass index [BM I] 28.0-28.9, adult Medical Established Patient with Peggy Thrasher [facility] 02/14/2021 Last Documented On 1 1:16PM ; [facility] Cough Telemedicine Establisted Patient with Traci Dennison BIOLOGY ADJUNCT INSTRUCTOR 01/01/2021 Last Documented On 1 6:31PM ; [facility] Fever Telemedicine Establisted Patient with Traci Dennison [facility] 01/01/2021 Last Documented On 1 6:31PM ; [facility] Z20.822 - Contact with and (suspected) exposure to COVID-19 Telemedicine Establisted Patient with Traci Dennison [facility] 01/01/2021 Last Documented On 1 6:31PM ; [facility] Bipolar I disorder, most rec ent episode, depressed Established Patient with Farrah Jarrett LPCC-S 06/03/2020 Last Documented On 1 10:50PM ; [facility] Paranoid schizophrenia per p atient report Established Patient with Farrah Jarrett LPCC-S 06/03/2020 Last Documented On 1 10:50PM ; [facility] Post-traumatic stress disord er per patient report Established Patient with Farrah Jarrett LPCC-S 06/03/2020 Last Documented On 1 10:50PM ; [facility] 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 Patient with Traci Dennison BIOLOGY ADJUNCT INSTRUCTOR 06/03/2020 Last Documented On 1 8:25AM ; [facility] Overweight Medical Established Patient with Traci Juma BIOLOGY ADJUNCT INSTRUCTOR 06/03/2020 Last Documented On 1 8:25AM ; [facility] Z68.29 - Body mass index [BM I] 29.0-29.9, adult Medical Established Patient with Traci Juma BIOLOGY ADJUNCT INSTRUCTOR 06/03/2020 Last Documented On 1 8:25AM ; [facility] Anxiety disorder NOS Medical Established Patient with Traci Dennison BIOLOGY ADJUNCT INSTRUCTOR 01/26/2020 Last Documented On 0 7:37PM ; [facility] Bipolar disorder NOS Medical Established Patient with Traci Dennison BIOLOGY ADJUNCT INSTRUCTOR 01/26/2020 Last Documented On 0 7:37PM ; [facility] Infection of tooth Medical Established Patient w ith Traci Dennison BIOLOGY ADJUNCT INSTRUCTOR 01/26/2020 Last Documented On 0 7:37PM ; [facility] Z68.20 - Body mass index [BM I] 20.0-20.9, adult Medical Established Patient with Traci Dennison BIOLOGY ADJUNCT INSTRUCTOR 01/26/2020 Last Documented On 0 7:37PM ; [facility] Bipolar I disorder, most rec ent episode, mixed Established Patient with Hannah Short LISWS 01/08/2020 Last Documented On 0 11:49AM ; [facility] Generalized anxiety disorder Establis hed Patient with Hannah Short LISWS 01/08/2020 Last Documented On 0 11:49AM ; [facility] Diabetes Risk Test Score was one score 01/08/2020 Medical Established Patient with Peggy Anna Marie BIOLOGY ADJUNCT INSTRUCTOR 01/08/2020 Last Documented On 0 1:42PM ; [facility] Overweight Medical Established Patient with Peggy Anna Marie BIOLOGY ADJUNCT INSTRUCTOR 01/08/2020 Last Documented On 0 1:42PM ; [facility] Z68.27 - Body mass index (BM I) 27.0-27.9, adult Medical Established Patient with Peggyisis Thrasher BIOLOGY ADJUNCT INSTRUCTOR 01/08/2020 Last Documented On 0 1:42PM ; [facility] Bipolar I disorder, most rec ent episode, mixed BH Established Patient with Hannah Short LISWS 12/25/2019 Last Documented On 0 6:16PM ; [facility] Generalized anxiety disorder Establis hed Patient with Hannah Short LISWS 12/25/2019 Last Documented On 0 6:16PM ; [facility] Overweight Medical Established Patient with Peggy Anna Marie BIOLOGY ADJUNCT INSTRUCTOR 12/25/2019 Last Documented On 0 1:54PM ; [facility] Z68.26 - Body mass index (BM I) 26.0-26.9, adult Medical Established Patient with Peggy Anna Marie BIOLOGY ADJUNCT INSTRUCTOR 12/25/2019 Last Documented On 0 1:54PM ; [facility] Work Phone: Evaluation note Includes: Assessments for all patient encounters Findings Encounter Date Anxiety disorder NOS Established Patient with Hannah Short LISWS 03/08/2023 Last Documented On 3 11:58AM ; [facility] Bipolar schizoaffective disorder Esta blished Patient with Hannah Short LISWS 03/08/2023 Last Documented On 3 11:58AM ; [facility] Nicotine dependence continuous Establ ished Patient with Hannah Short LISWS 03/08/2023 Last Documented On 3 11:58AM ; [facility] [Body mass index [BMI] 33.0- 33.9, adult] assessment of body mass index Medical Established Patient with Srinivasa Ed BIOLOGY ADJUNCT INSTRUCTOR 03/08/2023 Last Documented On 3 12:06PM ; [facility] Chronic gastritis without hemorrhage Med ical Established Patient with Srinivasa Ed BIOLOGY ADJUNCT INSTRUCTOR 03/08/2023 Last Documented On 3 12:06PM ; [facility] Encounter for Immunization Medical Estab lished Patient with Srinivasa Ed BIOLOGY ADJUNCT INSTRUCTOR 03/08/2023 Last Documented On 3 12:06PM ; [facility] Nicotine dependence continuous Medical E stablished Patient with Srinivasa Ed BIOLOGY ADJUNCT INSTRUCTOR 03/08/2023 Last Documented On 3 12:06PM ; [facility] Uncomplicated mild persistent asthma Med ical Established Patient with Srinivasa Ed BIOLOGY ADJUNCT INSTRUCTOR 03/08/2023 Last Documented On 3 12:06PM ; [facility] Anxiety disorder NOS BH Established Patient with Lea Stone MUSEUM ASSISTANT-S 02/19/2023 Last Documented On 3 4:27PM ; [facility] Bipolar schizoaffective disorder BH Esta blished Patient with Lea Stone MUSEUM ASSISTANT-S 02/19/2023 Last Documented On 3 4:27PM ; [facility] Nicotine dependence BH Established Patient with Lea Stone MUSEUM ASSISTANT-S 02/19/2023 Last Documented On 3 4:27PM ; [facility] Assessment of body mass index Open Acces s - Established with Srinivasa Ed BIOLOGY ADJUNCT INSTRUCTOR 02/19/2023 Last Documented On 3 9:22PM ; [facility] [Body mass index [BMI] 33.0- 33.9, adult] assessment of body mass index Medical Established Patient with Srinivasa Ed BIOLOGY ADJUNCT INSTRUCTOR 02/05/2023 Last Documented On 3 3:48PM ; [facility] Anxiety disorder NOS Medical Established Patient with Srinivasa Ed BIOLOGY ADJUNCT INSTRUCTOR 02/05/2023 Last Documented On 3 3:48PM ; [facility] Body mass index Medical Established Patient with Srinivasa Ed BIOLOGY ADJUNCT INSTRUCTOR 01/28/2023 Last Documented On 3 8:31PM ; [facility] [Body mass index [BMI] 32.0- 32.9, adult] assessment of body mass index Medical Established Patient with Srinivasa Ed BIOLOGY ADJUNCT INSTRUCTOR 12/31/2022 Last Documented On 3 5:25AM ; [facility] Uncomplicated mild persistent asthma Med ical Established Patient with Srinivasa Ed BIOLOGY ADJUNCT INSTRUCTOR 12/31/2022 Last Documented On 3 5:25AM ; [facility] [Body mass index [BMI] 33.0- 33.9, adult] assessment of body mass index Medical Established Patient with Srinivasa Boyceer BIOLOGY ADJUNCT INSTRUCTOR 11/30/2022 Last Documented On 3 12:28PM ; [facility] Anxiety disorder NOS Medical Established Patient with Srinivasa Ed BIOLOGY ADJUNCT INSTRUCTOR 11/30/2022 Last Documented On 3 12:28PM ; [facility] Diabetes Risk Test Score was four score 11/30/2022 Medical Established Patient with Srinivasa Ed BIOLOGY ADJUNCT INSTRUCTOR 11/30/2022 Last Documented On 3 12:28PM ; [facility] Uncomplicated mild persistent asthma Med ical Established Patient with Srinivasa Ed BIOLOGY ADJUNCT INSTRUCTOR 11/30/2022 Last Documented On 3 12:28PM ; [facility] Visit for: routine adult H&P with abnormal findings Medical Established Patient with Srinivasa Ed BIOLOGY ADJUNCT INSTRUCTOR 11/30/2022 Last Documented On 3 12:28PM ; [facility] [Body mass index [BMI] 30.0- 30.9, adult] assessment of body mass index Medical Established Patient with Srinivasa Boyceer BIOLOGY ADJUNCT INSTRUCTOR 01/22/2022 Last Documented On 2 6:17PM ; [facility] Dysuria Medical Established Patient with Srinivasa Ed BIOLOGY ADJUNCT INSTRUCTOR 01/22/2022 Last Documented On 2 6:17PM ; [facility] Bipolar schizoaffective disorder BH Esta blished Patient with Inatameka Díaz LPCC-S 12/11/2021 Last Documented On 2 2:31PM ; [facility] Assessment of body mass inde x [Body mass index [BMI] 26.0-26.9, adult] Medical Established Patient with Srinivasa Ed BIOLOGY ADJUNCT INSTRUCTOR 12/11/2021 Last Documented On 2 12:34PM ; [facility] Bipolar schizoaffective disorder BH Esta blished Patient with Ina Díaz LPCC-S 11/25/2021 Last Documented On 2 1:25PM ; [facility] Anxiety disorder NOS Medical Established Patient with Traci Juma BIOLOGY ADJUNCT INSTRUCTOR 11/25/2021 Last Documented On 2 3:06PM ; [facility] Urinary tract infection Medical Establis hed Patient with Traci Juma BIOLOGY ADJUNCT INSTRUCTOR 11/25/2021 Last Documented On 2 3:06PM ; [facility] Z68.27 - Body mass index [BM I] 27.0-27.9, adult Medical Established Patient with Traci Juma BIOLOGY ADJUNCT INSTRUCTOR 11/25/2021 Last Documented On 2 3:06PM ; [facility] Anxiety disorder NOS Medical Established Patient with Traci Juma BIOLOGY ADJUNCT INSTRUCTOR 08/13/2021 Last Documented On 2 8:18AM ; [facility] Assessment of body mass index Medical Es tablished Patient with Traci Juma BIOLOGY ADJUNCT INSTRUCTOR 08/13/2021 Last Documented On 2 8:18AM ; [facility] Chronic gastritis without hemorrhage Med ical Established Patient with Traci Juma BIOLOGY ADJUNCT INSTRUCTOR 08/13/2021 Last Documented On 2 8:18AM ; [facility] Diverticulosis of intestine Medical Esta blished Patient with Traci Juma BIOLOGY ADJUNCT INSTRUCTOR 08/13/2021 Last Documented On 2 8:18AM ; [facility] Urinary tract infection Medical Establis hed Patient with Traci Juma BIOLOGY ADJUNCT INSTRUCTOR 08/13/2021 Last Documented On 2 8:18AM ; [facility] Anxiety disorder NOS Medical Established Patient with Traci Juma BIOLOGY ADJUNCT INSTRUCTOR 07/17/2021 Last Documented On 2 8:10AM ; [facility] Other hypothyroidism Medical Established Patient with Traci Juma BIOLOGY ADJUNCT INSTRUCTOR 07/17/2021 Last Documented On 2 8:10AM ; [facility] Upper respiratory infection Medical Esta blished Patient with Traci Juma BIOLOGY ADJUNCT INSTRUCTOR 07/17/2021 Last Documented On 2 8:10AM ; [facility] Visit for: routine adult H&P with abnormal findings Medical Established Patient with Traci Juma BIOLOGY ADJUNCT INSTRUCTOR 07/17/2021 Last Documented On 2 8:10AM ; [facility] Visit for: screening for lip oid disorders Medical Established Patient with Traci Juma BIOLOGY ADJUNCT INSTRUCTOR 07/17/2021 Last Documented On 2 8:10AM ; [facility] Vitamin B12 deficiency Medical Establish ed Patient with Traci Juma BIOLOGY ADJUNCT INSTRUCTOR 07/17/2021 Last Documented On 2 8:10AM ; [facility] Vitamin D deficiency Medical Established Patient with Traci Dennison BIOLOGY ADJUNCT INSTRUCTOR 07/17/2021 Last Documented On 2 8:10AM ; [facility] Z68.28 - Body mass index [BM I] 28.0-28.9, adult Medical Established Patient with Traci Dennison BIOLOGY ADJUNCT INSTRUCTOR 07/17/2021 Last Documented On 2 8:10AM ; [facility] Allergic rhinitis Telemedicine Establi sted Patient with Traci Dennison BIOLOGY ADJUNCT INSTRUCTOR 07/16/2021 Last Documented On 2 8:23AM ; [facility] Exposure to COVID-19 Telemedicine Establ isted Patient with Traci Dennison BIOLOGY ADJUNCT INSTRUCTOR 04/29/2021 Last Documented On 2 8:02PM ; [facility] Bipolar schizoaffective disorder BH Esta blished Patient with Farrah Jarrett LPCC-S 04/15/2021 Last Documented On 2 1:07PM ; [facility] Anxiety disorder NOS Medical Established Patient with Traci Dennison BIOLOGY ADJUNCT INSTRUCTOR 04/15/2021 Last Documented On 2 9:06AM ; [facility] Assessment of body mass index Medical Es tablished Patient with Traci Dennison BIOLOGY ADJUNCT INSTRUCTOR 04/15/2021 Last Documented On 2 9:06AM ; [facility] Bipolar disorder NOS Medical Established Patient with Traci Dennison BIOLOGY ADJUNCT INSTRUCTOR 04/15/2021 Last Documented On 2 9:06AM ; [facility] Anxiety disorder NOS Telebehavioral H ealth with Farrah Jarrett LPCC-S 04/09/2021 Last Documented On 2 9:05AM ; [facility] Bipolar disorder NOS Telebehavioral H ealth with Farrah Jarrett LPCC-S 04/09/2021 Last Documented On 2 9:05AM ; [facility] Anxiety disorder NOS Established Patient with Hannah Short LISWS 04/03/2021 Last Documented On 1 7:15PM ; [facility] Bipolar I disorder, most rec ent episode, depressed Established Patient with Hannah Short LISWS 04/03/2021 Last Documented On 1 7:15PM ; [facility] Nicotine dependence Established Patient with Hannah Short LISWS 04/03/2021 Last Documented On 1 7:15PM ; [facility] Nicotine dependence Established Patient with Hannah Short LISWS 04/03/2021 Last Documented On 1 7:15PM ; [facility] Undifferentiated schizophren ia per patient reported history Established Patient with Hannah Short LISWS 04/03/2021 Last Documented On 1 7:15PM ; [facility] A home test was negative Medic al Established Patient with Traci Dennison BIOLOGY ADJUNCT INSTRUCTOR 04/03/2021 Last Documented On 1 8:11PM ; [facility] Assessment of body mass index Medical Es tablished Patient with Traci Dennison BIOLOGY ADJUNCT INSTRUCTOR 04/03/2021 Last Documented On 1 8:11PM ; [facility] Epilepsy, not intractable, w ithout status epilepticus Medical Established Patient with Traci Dennison BIOLOGY ADJUNCT INSTRUCTOR 04/03/2021 Last Documented On 1 8:11PM ; [facility] Mixed affective bipolar diso rder, moderate Medical Established Patient with Traci Dennison BIOLOGY ADJUNCT INSTRUCTOR 04/03/2021 Last Documented On 1 8:11PM ; [facility] Urinary tract infection Medical Establis hed Patient with Traci Dennison BIOLOGY ADJUNCT INSTRUCTOR 04/03/2021 Last Documented On 1 8:11PM ; [facility] Visit for: screening for STD Medical Est ablished Patient with Traci Dennison BIOLOGY ADJUNCT INSTRUCTOR 04/03/2021 Last Documented On 1 8:11PM ; [facility] Assessment of visit for: scr eening for human immunodeficiency virus Medical Established Patient with Peggyisis Thrasher BIOLOGY ADJUNCT INSTRUCTOR 02/14/2021 Last Documented On 1 1:16PM ; [facility] Diabetes Risk Test Score was three score 02/14/2021 Medical Established Patient with Peggy Anna Marie BIOLOGY ADJUNCT INSTRUCTOR 02/14/2021 Last Documented On 1 1:16PM ; [facility] Diarrhea Medical Established Patient with Peggy Anna Marie BIOLOGY ADJUNCT INSTRUCTOR 02/14/2021 Last Documented On 1 1:16PM ; [facility] Nicotine dependence Medical Established Patient with Peggy Thrasher [facility] 02/14/2021 Last Documented On 1 1:16PM ; [facility] Z68.28 - Body mass index [BM I] 28.0-28.9, adult Medical Established Patient with Peggy Thrasher BIOLOGY ADJUNCT INSTRUCTOR 02/14/2021 Last Documented On 1 1:16PM ; [facility] Cough Telemedicine Establisted Patient with Traci Dennison [facility] 01/01/2021 Last Documented On 1 6:31PM ; [facility] Fever Telemedicine Establisted Patient with Traci Dennison [facility] 01/01/2021 Last Documented On 1 6:31PM ; [facility] Z20.822 - Contact with and (suspected) exposure to COVID-19 Telemedicine Establisted Patient with Traci Dennison [facility] 01/01/2021 Last Documented On 1 6:31PM ; [facility] Bipolar I disorder, most rec ent episode, depressed Established Patient with Farrah Jarrett LPCC-S 06/03/2020 Last Documented On 1 10:50PM ; [facility] Paranoid schizophrenia per p atient report Established Patient with Farrah Hernandezs LPCC-S 06/03/2020 Last Documented On 1 10:50PM ; [facility] Post-traumatic stress disord er per patient report Established Patient with Farrah Hernandezs LPCC-S 06/03/2020 Last Documented On 1 10:50PM ; [facility] 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 Patient with Traci Dennison [facility] 06/03/2020 Last Documented On 1 8:25AM ; [facility] Overweight Medical Established Patient with Traci Dennison [facility] 06/03/2020 Last Documented On 1 8:25AM ; [facility] Z68.29 - Body mass index [BM I] 29.0-29.9, adult Medical Established Patient with Traci Dennison [facility] 06/03/2020 Last Documented On 1 8:25AM ; [facility] Anxiety disorder NOS Medical Established Patient with Traci Dennison BIOLOGY ADJUNCT INSTRUCTOR 01/26/2020 Last Documented On 0 7:37PM ; [facility] Bipolar disorder NOS Medical Established Patient with Traci Dennison BIOLOGY ADJUNCT INSTRUCTOR 01/26/2020 Last Documented On 0 7:37PM ; [facility] Infection of tooth Medical Established Patient w ith Traci Dennison BIOLOGY ADJUNCT INSTRUCTOR 01/26/2020 Last Documented On 0 7:37PM ; [facility] Z68.20 - Body mass index [BM I] 20.0-20.9, adult Medical Established Patient with Traci Dennison BIOLOGY ADJUNCT INSTRUCTOR 01/26/2020 Last Documented On 0 7:37PM ; [facility] Bipolar I disorder, most rec ent episode, mixed Established Patient with Hannah Short LISWS 01/08/2020 Last Documented On 0 11:49AM ; [facility] Generalized anxiety disorder BH Establis hed Patient with Hannah Short LISWS 01/08/2020 Last Documented On 0 11:49AM ; [facility] Diabetes Risk Test Score was one score 01/08/2020 Medical Established Patient with Peggy Anna Marie BIOLOGY ADJUNCT INSTRUCTOR 01/08/2020 Last Documented On 0 1:42PM ; [facility] Overweight Medical Established Patient with Peggy Anna Marie BIOLOGY ADJUNCT INSTRUCTOR 01/08/2020 Last Documented On 0 1:42PM ; [facility] Z68.27 - Body mass index (BM I) 27.0-27.9, adult Medical Established Patient with Peggy Anna Marie BIOLOGY ADJUNCT INSTRUCTOR 01/08/2020 Last Documented On 0 1:42PM ; [facility] Bipolar I disorder, most rec ent episode, mixed BH Established Patient with Hannah Short LISWS 12/25/2019 Last Documented On 0 6:16PM ; [facility] Generalized anxiety disorder BH Establis hed Patient with Hannah Short LISWS 12/25/2019 Last Documented On 0 6:16PM ; [facility] Overweight Medical Established Patient with Peggy Anna Marie BIOLOGY ADJUNCT INSTRUCTOR 12/25/2019 Last Documented On 0 1:54PM ; [facility] Z68.26 - Body mass index (BM I) 26.0-26.9, adult Medical Established Patient with Peggy Thrasher BIOLOGY ADJUNCT INSTRUCTOR 12/25/2019 Last Documented On 0 1:54PM ; [facility] Work Phone: History general Narrative - Reported Includes: Medical History in patient's chart Description Last Updated Not planning to have a baby in the next 12 months 11/30/2022 Last Documented On 3 12:28PM ; [facility] History of anxiety disorder NOS 07/18/19 22 Last Documented On 2 8:10AM ; [facility] No previous hospitalizations 04/03/2021 Last Documented On 1 8:11PM ; [facility] History of complete colonoscopy 04/03/20 Last Documented On 1 8:11PM ; [facility] Epilepsy 12/25/2019 Last Documented On 0 1:54PM ; [facility] 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 Last Documented On 0 1:54PM ; [facility] Ovarian cyst 12/25/2019 Last Documented On 0 1:54PM ; [facility] Post-traumatic stress disorder 0 Last Documented On 0 1:54PM ; [facility] History of asthma 12/25/2019 Last Documented On 0 1:54PM ; [facility] History of schizophrenia 12/25/2019 Last Documented On 0 1:54PM ; [facility] History of bipolar disorder NOS 12/25/19 20 Last Documented On 0 1:54PM ; [facility] History of depression 12/25/2019 Last Documented On 0 1:54PM ; [facility] History of psychiatric disorders 020 Last Documented On 0 1:54PM ; [facility] Work Phone: History of Present illness Narrative History of Present Illness not supported for this document type No History of Present Illness [facility] Work Phone: Hospital Discharge instructions* Attachments The following attachments cannot be sent through Care Everywhere. * Abdominal Pain ([place]os[place]o) [facility] Phone: Hospital Discharge instructions* Attachments The following attachments cannot be sent through Care Everywhere. * Serous Otitis Media ([place]osotho) * Ear: Anatomy Sketch ([place]osotho) * Otitis Externa ([place]) [facility] Phone: Hospital Discharge instructions* Instructions* Anne Marie Montez PA-C - 11/16/2020 Call to arrange follow-up with orthopedic for further evaluation of continued symptoms. * Attachments The following attachments cannot be sent through Care Everywhere. * Wrist Sprain ([place]o) [facility] Phone: Hospital Discharge instructions* Attachments The following attachments cannot be sent through Care Everywhere. * Coronavirus Disease (COVID-19): General Info ([place]osotho) documented in this [employer] Phone: Hospital Discharge instructions* Attachments The following attachments cannot be sent through Care Everywhere. * Abdominal Pain ([place]osotho) documented in this [employer] Phone: Hospital Discharge instructions* Instructions* Braydon Sierra, - 08/11/2021 You were seen and evaluated in the emergency department with a complaint of abdominal pain. Our evaluation showed no acute abnormalities requiring emergent intervention nor admission to the hospital.Please follow-up with your primary care physician. Call for an appointment to be seen within the next 1 to 2 days. If you do not have a primary care physician we have given you information on obtaining one. Please continue taking all prescribed medications. Please continue to socially distance, wear a mask, and wash your hands frequently. Please return to the emergency department immediately withany new or concerning symptoms including but not limited to any chest pain ,any fevers, any inability to tolerate oral intake, any severe abdominal pain, any difficulty breathing, any new rashes, anysudden onset of any weakness, severe fever unresponsive to home medications, or anything else that is new or concerning to you. If you were diagnosed or suspected of having a seizure, prescribed a sedative or narcotic, experienced a lapse in consciousness, or provided an eye patch, do not drive. If you continue to have worsening of your current symptoms return to the emergency department immediately for reevaluation. * Attachments The following attachments cannot be sent through Care Everywhere. * Abdominal Pain ([place]) documented in this [facility] Work Phone: Instructions Instructions not supported for this document type No Instructions RecordedHealth [facility] Work Phone: Patient problem outcome Narrative Includes: Evaluations & Outcomes for active Goals No [facility]: Reason for referral (narrative)No Reason for Referral [facility] Work Phone: Review of systems Narrative - Reported Review of Systems not supported for this document type No Review of Systems RecordedRocketship Education [facility] Work Phone: Summary Purpose Family History No Family History Records Found Description Last Updated Maternal history of asthma 12/25/2019 Maternal history of cardiovascular disor russell 12/25/2019 Maternal history of oncologic disorder O verain 12/25/2019 Description Last Updated Father 200907/17/2021 Mother is alive 07/17/2021 Maternal history of asthma 12/25/2019 Maternal history of cardiovascular disor russell 12/25/2019 Maternal history of oncologic disorder O verain 12/25/2019 Description Last Updated Father 200907/17/2021 Last Documented On 2 8:10AM ; [facility] Mother is alive 07/17/2021 Maternal history of asthma 12/25/2019 Last Documented On 0 1:54PM ; [facility] Maternal history of cardiovascular disor russell 12/25/2019 Maternal history of oncologic disorder O verain 12/25/2019 Description Last Updated Father 200907/17/2021 Last Documented On 2 8:10AM ; [facility] Mother is alive 07/17/2021 Maternal history of asthma 12/25/2019 Last Documented On 0 1:54PM ; [facility] Maternal history of cardiovascular disor russell 12/25/2019 Maternal history of oncologic disorder O verain 12/25/2019 Description Last Updated Father 200907/17/2021 Last Documented On 2 8:10AM ; [facility] Mother is alive 07/17/2021 Maternal history of asthma 12/25/2019 Last Documented On 0 1:54PM ; [facility] Maternal history of cardiovascular disor russell 12/25/2019 Maternal history of oncologic disorder O verain 12/25/2019 Description Last Updated Father 200907/17/2021 Last Documented On 2 8:10AM ; [facility] Mother is alive 07/17/2021 Maternal history of asthma 12/25/2019 Last Documented On 0 1:54PM ; [facility] Maternal history of cardiovascular disor russell 12/25/2019 Maternal history of oncologic disorder O verain 12/25/2019 Description Last Updated Father 200907/17/2021 Last Documented On 2 8:10AM ; [facility] Mother is alive 07/17/2021 Maternal history of asthma 12/25/2019 Last Documented On 0 1:54PM ; [facility] Maternal history of cardiovascular disor russell 12/25/2019 Maternal history of oncologic disorder O verain 12/25/2019 Description Last Updated Father 200907/17/2021 Last Documented On 2 8:10AM ; [facility] Mother is alive 07/17/2021 Maternal history of asthma 12/25/2019 Last Documented On 0 1:54PM ; [facility] Maternal history of cardiovascular disor russell 12/25/2019 Maternal history of oncologic disorder O verain 12/25/2019 Description Last Updated Father 200907/17/2021 Last Documented On 2 8:10AM ; [facility] Mother is alive 07/17/2021 Maternal history of asthma 12/25/2019 Last Documented On 0 1:54PM ; [facility] Maternal history of cardiovascular disor russell 12/25/2019 Maternal history of oncologic disorder O verain 12/25/2019 Description Last Updated Father 200907/17/2021 Last Documented On 2 8:10AM ; [facility] Mother is alive 07/17/2021 Maternal history of asthma 12/25/2019 Last Documented On 0 1:54PM ; [facility] Maternal history of cardiovascular disor russell 12/25/2019 Maternal history of oncologic disorder O verain 12/25/2019 Description Last Updated Father 200907/17/2021 Last Documented On 2 8:10AM ; [facility] Mother is alive 07/17/2021 Maternal history of asthma 12/25/2019 Last Documented On 0 1:54PM ; [facility] Maternal history of cardiovascular disor russell 12/25/2019 Maternal history of oncologic disorder O verain 12/25/2019 Advance Directives No Advanced Directives Records FoundDocuments on File Type Date Recorded Patient Corporate Trust Officer Expl anation ACP-Advance Directive ACP-Power of Bathhouse Attendant Latest Code Status on File Code Status Date Activated Date Inactivated Comments Full Code 01/15/2015 9:37 AM 01/17/2015 8:47 PM Full Code 01/15/2015 8:36 AM 01/15/2015 9:37 AM Full Code 02/21/2014 5:08 PM 02/22/2014 1:41 PM Full Code 02/21/2014 12:09 PM 02/21/2014 5:08 PM Documents on File Type Date Recorded Patient Corporate Trust Officer Expl anation Advance Directives and Living Will Power of Bathhouse Attendant Directive Pat Aware Third Constitution Party Effective Date Reviewed Sta tus Declined to Provide Advance Directive Yes 11/25/2021 Current and Verified Note: Patient refuse d advanced directives at this time. Latest Code Status on File Code Status Date Activated Date Inactivated Comments Full Code 01/15/2015 9:37 AM 01/17/2015 8:47 PM Full Code 01/15/2015 8:36 AM 01/15/2015 9:37 AM Full Code 02/21/2014 5:08 PM 02/22/2014 1:41 PM Full Code 02/21/2014 12:09 PM 02/21/2014 5:08 PM Directive Pat Aware Third Constitution Party Effective Date Reviewed Sta tus Declined to Provide Advance Directive Yes 11/25/2021 Current and Verified Note: Patient refuse d advanced directives at this time. Living Will Yes 11/30/2022 Support ed By Healthcare Will Note: Discussed with patient about living will. Gave patient informational packet and was advised to fill out and return once completed. Discharge Instructions * Attachments The following attachments cannot be sent through Care Everywhere. * Abdominal Pain ([place]o) documented in this encounter* Attachments The following attachments cannot be sent through Care Everywhere. * Abdominal Pain ([place]o) documented in this encounter* Attachments The following attachments cannot be sent through Care Everywhere. * Back: Strain ([place]) documented in this encounter* Instructions* Regino Aguilar MD - 12/31/2019 Please take all medications as prescribed. Please follow up with your primary care physician by calling today, or as soon as possible, for thefirst available appointment. If you do not have a primary care physician, please contact a physician or clinic listed below today to establish care. Please return to the emergency department IMMEDIATELY if you develop uncontrolled fevers, uncontrolled vomiting, change in symptoms, worsening of symptoms, or ANY other concerns. * Attachments The following attachments cannot be sent through Care Everywhere. * Cellulitis ([place]) documented in this encounter* Attachments The following attachments cannot be sent through Care Everywhere. * Drug Use: Marijuana ([place]) * Chest Pain ([place]) * Seizure ([place]) documented in this encounter* Instructions* Regino Aguilar MD - 12/30/2018 Please take all medications as prescribed. Please follow up with your primary care physician by calling today, or as soon as possible, for thefirst available appointment. If you do not have a primary care physician, please contact a physician or clinic listed below today to establish care. Please return to the emergency department IMMEDIATELY if you develop uncontrolled fevers, uncontrolled vomiting, change in symptoms, worsening of symptoms, or ANY other concerns. * Attachments The following attachments cannot be sent through Care Everywhere. * URI (Upper Respiratory Infection) ([place]) documented in this encounter* Instructions* David Fish APRN - ABENA - 06/01/2020 Return to the emergency department for worsening symptoms. When you have a stool sample bring it back to the lab for evaluation. Take Zofran as directed. * Attachments The following attachments cannot be sent through Care Everywhere. * Abdominal Pain ([place]) documented in this encounter* Instructions* Katlin Reaves MD - 06/18/2020 Take Zofran as needed nausea or vomiting. Continue current medications as prescribed. Follow-up with gastroenterology as scheduled. Return immediately for any worsening symptoms or any acute concerns * Attachments The following attachments cannot be sent through Care Everywhere. * Abdominal Pain ([place]) documented in this encounter Assessments Diagnosis Left lower quadrant abdominal pain Abdominal pain, unspecified abdominal location Hydrosalpinx Chronic salpingitis and oophoritis Diagnosis Non-surgical abdominal pain Abdominal pain, unspecified site Diagnosis Strain of lumbar region, initial encounter Findings Encounter Date Overweight Medical Established Patient with Peggy Thrahser BIOLOGY ADJUNCT INSTRUCTOR 12/25/2019 Z68.26 - Body mass index (BM I) 26.0-26.9, adult Medical Established Patient with Peggy Leoen BIOLOGY ADJUNCT INSTRUCTOR 12/25/2019 Findings Encounter Date Bipolar I disorder, most rec ent episode, mixed Established Patient with Hannah Short [facility] 12/25/2019 Generalized anxiety disorder Establis hed Patient with Hannah Short [facility] 12/25/2019 Overweight Medical Established Patient with Peggy Anna Marie BIOLOGY ADJUNCT INSTRUCTOR 12/25/2019 Z68.26 - Body mass index (BM I) 26.0-26.9, adult Medical Established Patient with Peggy Anna Marie BIOLOGY ADJUNCT INSTRUCTOR 12/25/2019 Diagnosis Cellulitis of right foot Cellulitis and abscess of foot, except toes Findings Encounter Date Bipolar I disorder, most rec ent episode, mixed Established Patient with Hannah Short [facility] 01/08/2020 Generalized anxiety disorder Establis hed Patient with Hannah Short [facility] 01/08/2020 Diabetes Risk Test Score was one score 01/08/2020 Medical Established Patient with Peggy Anna Marie BIOLOGY ADJUNCT INSTRUCTOR 01/08/2020 Overweight Medical Established Patient with Peggy Anna Marie BIOLOGY ADJUNCT INSTRUCTOR 01/08/2020 Z68.27 - Body mass index (BM I) 27.0-27.9, adult Medical Established Patient with Peggy Anna Marie BIOLOGY ADJUNCT INSTRUCTOR 01/08/2020 Bipolar I disorder, most rec ent episode, mixed Established Patient with Hannah Short [facility] 12/25/2019 Generalized anxiety disorder Establis hed Patient with Hannah Short [facility] 12/25/2019 Overweight Medical Established Patient with Peggy Anna Marie BIOLOGY ADJUNCT INSTRUCTOR 12/25/2019 Z68.26 - Body mass index (BM I) 26.0-26.9, adult Medical Established Patient with Peggy Anna Marie BIOLOGY ADJUNCT INSTRUCTOR 12/25/2019 Findings Encounter Date Anxiety disorder NOS Medical Established Patient with Traci Dennison [facility] 01/26/2020 Bipolar disorder NOS Medical Established Patient with Traci Dennison [facility] 01/26/2020 Infection of tooth Medical Established Patient with Traci Dennison [facility] 01/26/2020 Z68.20 - Body mass index [BM I] 20.0-20.9, adult Medical Established Patient with Traci Dennison [facility] 01/26/2020 Bipolar I disorder, most rec ent episode, mixed Established Patient with Hananh Short [facility] 01/08/2020 Generalized anxiety disorder Establis hed Patient with Hannah Short [facility] 01/08/2020 Diabetes Risk Test Score was one score 01/08/2020 Medical Established Patient with Peggy Thrasher [facility] 01/08/2020 Overweight Medical Established Patient with Peggy Thrasher [facility] 01/08/2020 Z68.27 - Body mass index (BM I) 27.0-27.9, adult Medical Established Patient with Peggy Thrasher [facility] 01/08/2020 Bipolar I disorder, most rec ent episode, mixed Established Patient with Hannah Short [facility] 12/25/2019 Generalized anxiety disorder Establis hed Patient with Hannah Short [facility] 12/25/2019 Overweight Medical Established Patient with Peggy Thrasher [facility] 12/25/2019 Z68.26 - Body mass index (BM I) 26.0-26.9, adult Medical Established Patient with Peggy Thrasher [facility] 12/25/2019 Diagnosis Viral gastroenteritis Intestinal infection due to other organism, not elsewhere classified Suspected COVID-19 virus infection Diagnosis Seizure (HCC) Other convulsions Noncompliance Personal history of noncompliance with medical treatment, presenting hazards to health Chest pain, atypical Other chest pain Chest pain at rest Chest pain, unspecified Marijuana use Cannabis abuse, unspecified Diagnosis Chest pain on breathing Painful respiration Diagnosis Viral URI with cough- Primary Acute upper respiratory infections of unspecified site Diagnosis Left upper quadrant abdominal pain- Primary Findings Encounter Date Bipolar I disorder, most rec ent episode, depressed Established Patient with Farrah Jarrett [facility] 06/03/2020 Paranoid schizophrenia per p atient report Established Patient with Farrah Jarrett [facility] 06/03/2020 Post-traumatic stress disord er per patient report Established Patient with Farrah Jarrett [facility] 06/03/2020 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 Patient with Traci Dennison [facility] 06/03/2020 Overweight Medical Established Patient with Traci Dennison [facility] 06/03/2020 Z68.29 - Body mass index [BM I] 29.0-29.9, adult Medical Established Patient with Traci Dennison [facility] 06/03/2020 Anxiety disorder NOS Medical Established Patient with Traci Dennison [facility] 01/26/2020 Bipolar disorder NOS Medical Established Patient with Traci Dennison [facility] 01/26/2020 Infection of tooth Medical Established Patient with Traci Dennison [facility] 01/26/2020 Z68.20 - Body mass index [BM I] 20.0-20.9, adult Medical Established Patient with Traci Dennison [facility] 01/26/2020 Bipolar I disorder, most rec ent episode, mixed Established Patient with Hannah Short [facility] 01/08/2020 Generalized anxiety disorder Establis hed Patient with Hannah Short [facility] 01/08/2020 Diabetes Risk Test Score was one score 01/08/2020 Medical Established Patient with Peggy Thrasher [facility] 01/08/2020 Overweight Medical Established Patient with Peggy Anna Marie CNP 01/08/2020 Z68.27 - Body mass index (BM I) 27.0-27.9, adult Medical Established Patient with Peggy Anna Marie [facility] 01/08/2020 Bipolar I disorder, most rec ent episode, mixed Established Patient with Hannah Short [facility] 12/25/2019 Generalized anxiety disorder Establis hed Patient with Hannah Short [facility] 12/25/2019 Overweight Medical Established Patient with Peggy Anna Marie [facility] 12/25/2019 Z68.26 - Body mass index (BM I) 26.0-26.9, adult Medical Established Patient with Peggy Anna Marie [facility] 12/25/2019 Diagnosis Chronic abdominal pain- Primary Abdominal pain, unspecified site Findings Encounter Date Diabetes Risk Test Score was one score 01/08/2020 Medical Established Patient with Peggy Anna Marie BIOLOGY ADJUNCT INSTRUCTOR 01/08/2020 Overweight Medical Established Patient with Peggy Anna Marie [facility] 01/08/2020 Z68.27 - Body mass index (BM I) 27.0-27.9, adult Medical Established Patient with Peggy Anna Marie [facility] 01/08/2020 Bipolar I disorder, most rec ent episode, mixed Established Patient with Hannah Short [facility] 12/25/2019 Generalized anxiety disorder Establis hed Patient with Hannah Short [facility] 12/25/2019 Overweight Medical Established Patient with Peggy Thrasher [facility] 12/25/2019 Z68.26 - Body mass index (BM I) 26.0-26.9, adult Medical Established Patient with Peggy Thrasher [facility] 12/25/2019 Reason for Referral Specialty Diagnoses / Procedures Referred By Contac t Referred To Contact Radiology Diagnoses Diarrhea, unspecified type Procedures NM GASTRIC EMPTYING Mirza Amnada, DROP WIRE STRINGER - BIOLOGY ADJUNCT INSTRUCTOR [address] [place] [address] Referral ID Status Reason Start Date Expiration Date Visits Re quested Visits Authorized [id number] Closed 12/05/2021 12/05/2022 3 3 Specialty Diagnoses / Procedures Referred By Contac t Referred To Contact Diagnoses Palpitations Procedures Cardiac event monitor Srinivasa Ward, DROP WIRE STRINGER - [place] MIXER OPERATOR [address] [place] [address] Referral ID Status Reason Start Date Expiration Date Visits Re quested Visits Authorized [id number] Closed 12/15/2021 12/15/2022 1 1 Instructions Instructions not supported for this document type No Instructions Recorded Instructions not supported for this document type No Instructions Recorded Instructions not supported for this document type No Instructions Recorded Instructions not supported for this document type No Instructions Recorded Instructions not supported for this document type No Instructions Recorded Instructions not supported for this document type No Instructions Recorded Instructions not supported for this document type No Instructions Recorded History of Present Illness History of Present Illness not supported for this document type No History of Present Illness Recorded History of Present Illness not supported for this document type No History of Present Illness Recorded History of Present Illness not supported for this document type No History of Present Illness Recorded History of Present Illness not supported for this document type No History of Present Illness Recorded History of Present Illness not supported for this document type No History of Present Illness Recorded History of Present Illness not supported for this document type No History of Present Illness Recorded History of Present Illness not supported for this document type No History of Present Illness Recorded Review of System Review of Systems not supported for this document type No Review of Systems Recorded Review of Systems not supported for this document type No Review of Systems Recorded Review of Systems not supported for this document type No Review of Systems Recorded Review of Systems not supported for this document type No Review of Systems Recorded Review of Systems not supported for this document type No Review of Systems Recorded Review of Systems not supported for this document type No Review of Systems Recorded Review of Systems not supported for this document type No Review of Systems Recorded Physical Exam Physical Exam not supported for this document type No Physical Exam Recorded Physical Exam not supported for this document type No Physical Exam Recorded Physical Exam not supported for this document type No Physical Exam Recorded Physical Exam not supported for this document type No Physical Exam Recorded Physical Exam not supported for this document type No Physical Exam Recorded Physical Exam not supported for this document type No Physical Exam Recorded Physical Exam not supported for this document type No Physical Exam Recorded Physical Exam not supported for this document type No Physical Exam Recorded Physical Exam not supported for this document type No Physical Exam Recorded Physical Exam not supported for this document type No Physical Exam Recorded Physical Exam not supported for this document type No Physical Exam Recorded Physical Exam not supported for this document type No Physical Exam Recorded Physical Exam not supported for this document type No Physical Exam Recorded Physical Exam not supported for this document type No Physical Exam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
[2023-04-19 19:17] LABS: Basophils Absolute Auto 0.1 10^3/uL (0.0-0.1); Basophils Percent Auto 0.8 % (0.2-2.0); Eosinophils Absolute Auto 0.3 10^3/uL (0.0-0.7); Eosinophils Percent Auto 2.9 % (0.9-7.0); Hematocrit 43.9 % (36.0-48.0); Hemoglobin 14.3 g/dL (12.0-16.0); Immature Granulocytes Abs Auto 0.01 10^3/uL (0.00-0.03); Immature Granulocytes Pct Auto 0.1 % (0.0-0.5); Lymphocytes Absolute Auto 3.3 10^3/uL (1.2-3.8); Lymphocytes Percent Auto 33.1 % (20.5-60.0); Mean Corpuscular HGB Conc 32.6 g/dL (29.9-35.2); Mean Corpuscular Hemoglobin 29.8 pg (26.7-34.0); Mean Corpuscular Volume 91.5 fL (81.0-99.0); Mean Platelet Volume 9.3 fL (9.5-13.5); Monocytes Absolute Auto 0.9 10^3/uL (0.3-0.8); Monocytes Percent Auto 9.1 % (1.7-12.0); Neutrophils Absolute Auto 5.3 10^3/uL (1.4-6.5); Platelet Count 341 10^3/uL (150-450); Red Cell Distribution Width 14.2 % (11.0-15.0); White Blood Count 9.9 10^3/uL (4.0-11.0)
[2023-04-19 19:20] LABS: Bilirubin Urine NEGATIVE (NEGATIVE); Blood Urine NEGATIVE (NEGATIVE); Clarity Urine CLEAR (CLEAR); Color Urine YELLOW (YELLOW); Glucose Urine UA NEGATIVE (NEGATIVE); Ketones Urine NEGATIVE (NEGATIVE); Leukocyte Esterase Urine NEGATIVE (NEGATIVE); Nitrite Urine NEGATIVE (NEGATIVE); Protein Urine NEGATIVE (NEG/TRACE); Specific Gravity Urine 1.015 (1.005-1.025); Urine Microscopic Indicated NO
--- NOTE | 2023-04-19 19:24 | CT_ITS ---
The [address] [address] Patient Name: ABRAHAN WOODS MRN: [id number] date: 1990 Sex: F Assigned Patient Location: ER Current Patient Location: Accession/Order Number: [id number] Exam Date: 04/19/2023 19:31 Report Date: 04/19/2023 20:01 At the request of: RADHIKA HARRINGTON Procedure: CT abdomen pelvis wo con EXAM: CT scan of the abdomen and pelvis without contrast. Dose reduction technique used: Automated exposure control and/or adjustment of the mA and/or kV according to patient size and/or use of iterative reconstruction technique. REASON FOR EXAM: Kidney stone COMPARISON: CT scan dated 03/01/2023 FINDINGS: Periumbilical small fat-containing ventral hernia. Cholecystectomy. No renal, ureteral or bladder calculi. No hydronephrosis. Normal appendix. No free fluid in the abdomen or pelvis. No free intraperitoneal air. No dilated or thickened loops of small bowel or colon. Liver, pancreas, spleen, bilateral kidneys, and bilateral adrenal glands are otherwise unremarkable within the limitations of noncontrast CT. No lymphadenopathy in the abdomen or pelvis. Remainder unremarkable. CT/CT abdomen pelvis wo con IMPRESSION: No acute abnormalities in the abdomen or pelvis. Electronically authenticated by: KAUR FLOOD Date: 04/19/2023 20:01
--- NOTE | 2023-04-19 19:26 | ED.GENADUL1 ---
HPI - General Adult General Chief complaint: Abdominal Pain Stated complaint: severe back pain Time Seen by Provider: 04/19/23 18:46 Source: patient Mode of arrival: Wheelchair Limitations: no limitations History of Present Illness HPI narrative: Patient is a 32-year-old female who presents to the emergency department for the evaluation of right flank pain radiating into the right side of the abdomen that began last night. She states that is giving her headache. She has had no objective fevers, chills. She feels very nauseous. She feels as though she has to strain to urinate although she has not noted any blood. No medications taken prior to arrival. She has had a previous cholecystectomy, hysterectomy and hernia repair. Related Data Home Medications Medication Instructions Recorded Confirmed albuterol sulfate 90 mcg/actuation 2 inh inhalation Q6H 10/15/22 10/29/22 aerosol inhaler amitriptyline 50 mg tablet 50 mg PO QDAY 10/15/22 10/29/22 buspirone 15 mg tablet 15 mg PO QDAY 10/15/22 10/29/22 dbqpupurhd-otwtxkseppffs-jooixato 1 tab PO Q6H PRN pain 10/15/22 10/29/22 50 mg-325 mg-40 mg tablet cariprazine 3 mg capsule (Vraylar) 6 mg PO Q24H 10/15/22 10/29/22 cholecalciferol (vitamin D3) 25 1,000 unit PO QDAY 10/15/22 10/29/22 mcg (1,000 unit) tablet dicyclomine 10 mg capsule 10 mg PO BID 10/15/22 10/29/22 fluticasone propionate 50 2 spray intranasal Q12H 10/15/22 10/29/22 mcg/actuation nasal spray,suspension lactobacillus combination no.4 3 3,000 mmu cells PO DAILY 10/15/22 10/15/22 billion cell capsule (Probiotic) loratadine 10 mg tablet 10 mg PO Q24H 10/15/22 10/29/22 omeprazole 40 mg capsule,delayed 40 mg PO BID 10/15/22 10/29/22 release oxcarbazepine 300 mg tablet 300 mg PO BID 10/15/22 10/29/22 prazosin 1 mg capsule 1 mg PO Q12H 10/15/22 10/15/22 Previous Rx's Medication Instructions Recorded ibuprofen 800 mg tablet 800 mg PO Q8H PRN pain 14 days #40 10/29/22 tabs oxycodone-acetaminophen 5 mg-325 1 tab PO Q6H PRN pain 7 days #28 10/29/22 mg tablet (Percocet) tabs benzonatate 100 mg capsule 100 mg PO TID PRN cough #20 caps 01/27/23 ondansetron 4 mg disintegrating 4 mg PO Q6H PRN nausea and 01/27/23 tablet vomiting #20 tabs ketorolac 10 mg tablet 10 mg PO TID PRN pain #10 tabs 04/19/23 methocarbamol 750 mg tablet 750 mg PO TID PRN pain #20 tabs 04/19/23 ondansetron 4 mg disintegrating 4 mg PO Q6H PRN nausea and 04/19/23 tablet vomiting #12 tabs Allergies Allergy/AdvReac Type Severity Reaction Status Date / Time adhesive tape Allergy Rash Verified 01/27/23 16:34 bales Allergy throat Verified 01/27/23 16:34 swelling latex Allergy Rash Verified 01/27/23 16:34 morphine AdvReac Severe Vomiting Verified 01/27/23 17:43 Review of Systems ROS Constitutional Denies: fever or chills Ears, nose, mouth, and throat Denies: throat pain or nasal congestion Cardiovascular Denies: chest pain Respiratory Denies: shortness of breath or cough Gastrointestinal Reports: abdominal pain and nausea; Denies: vomiting or diarrhea Genitourinary Reports: difficulty voiding; Denies: painful urination Musculoskeletal Reports: back pain; Denies: neck pain Integumentary/Breast Denies: rash Neurological Denies: headache Endocrine Denies: excessive urination [facility] Medical History (Updated 04/19/23 @ 20:31 by GUILLAUME Deluna) Clostridium difficile infection ?A49.8 - Other bacterial infections of unspecified site (ICD-10) MRSA (methicillin resistant Staphylococcus aureus) ?A49.02 - Methicillin resistant Staphylococcus aureus infection, unspecified site (ICD-10) Skin cancer ?C44.90 - Unspecified malignant neoplasm of skin, unspecified (ICD-10) Anemia ?D64.9 - Anemia, unspecified (ICD-10) Back pain ?M54.9 - Dorsalgia, unspecified (ICD-10) Arthritis ?M19.90 - Unspecified osteoarthritis, unspecified site (ICD-10) Insomnia ?G47.00 - Insomnia, unspecified (ICD-10) Panic attacks ?F41.0 - Panic disorder [episodic paroxysmal anxiety] (ICD-10) Bipolar disorder ?F31.9 - Bipolar disorder, unspecified (ICD-10) Depression ?F32.A - Depression, unspecified (ICD-10) Anxiety ?F41.9 - Anxiety disorder, unspecified (ICD-10) Pneumonia ?J18.9 - Pneumonia, unspecified organism (ICD-10) Asthma ?J45.909 - Unspecified asthma, uncomplicated (ICD-10) Migraine ?G43.909 - Migraine, unspecified, not intractable, without status migrainosus (ICD-10) Seizures ?R56.9 - Unspecified convulsions (ICD-10) Kidney stones ?N20.0 - Calculus of kidney (ICD-10) Heartburn ?R12 - Heartburn (ICD-10) Palpitations ?R00.2 - Palpitations (ICD-10) Irregular heart beat ?I49.9 - Cardiac arrhythmia, unspecified (ICD-10) Dyspareunia Dysmenorrhea ?N94.6 - Dysmenorrhea, unspecified (ICD-10) Menorrhagia ?N92.0 - Excessive and frequent menstruation with regular cycle (ICD-10) Pelvic pain ?R10.2 - Pelvic and perineal pain (ICD-10) Postoperative nausea and vomiting ?R11.2 - Nausea with vomiting, unspecified (ICD-10) ?Z98.890 - Other specified postprocedural states (ICD-10) Delayed recovery from anesthesia Surgical History (Updated 10/15/22 @ 09:30 by Traci Cadet NP) History of tonsillectomy and adenoidectomy ?Z90.89 - Acquired absence of other organs (ICD-10) History of hernia repair ?Z98.890 - Other specified postprocedural states (ICD-10) ?Z87.19 - Personal history of other diseases of the digestive system (ICD-10) History of endometrial ablation ?Z98.890 - Other specified postprocedural states (ICD-10) History of cholecystectomy (04/07/22) ?Z90.49 - Acquired absence of other specified parts of digestive tract (ICD-10) History of tubal ligation ?Z98.51 - Tubal ligation status (ICD-10) Family History (Updated 10/15/22 @ 09:30 by Traci Cadet NP) Other Family history of COPD (chronic obstructive pulmonary disease) Family history of breast cancer Family history of cervical cancer Family history of coronary artery disease Family history of diabetes mellitus Family history of emphysema Family history of heart disease Family history of lung cancer Family history of myocardial infarction Family history of prostate cancer Family history of renal failure Family history of stroke Social History Within the past year, how often did you have a drink containing alcohol: monthly or less Smoking status: Heavy tobacco smoker What tobacco products do you use: cigarettes Packs per day: 3 Years smoked: 7 Smoking pack-years: 21.00 Non-prescribed substance use: denies use Highest level of school completed/degree received: high school graduate Exam Narrative Exam Narrative: Gen.: Awake, alert, in no distress Head: Normocephalic, atraumatic ENT: Moist mucous membranes Respiratory: No respiratory distress Gastrointestinal: Abdomen is soft, nondistended and nontender to palpation Back: No CVA tenderness, diffuse tenderness of the right posterior hip. Extremities: Moves extremities equally, no injuries noted Psych: Normal mood and affect Neuro: No focal neuro deficit Skin: Warm, dry, intact Constitutional Vital Signs, click to edit/add: Last Vital Signs Temp 98.2 F 04/19/23 18:39 Pulse 65 04/19/23 20:58 Resp 16 04/19/23 20:58 BP 135/80 04/19/23 20:58 Pulse Ox 98 04/19/23 20:58 O2 Del Method Room Air 04/19/23 20:58 Course Vital Signs Vital signs: Vital Signs Temperature 98.2 F 04/19/23 18:39 Pulse Rate 80 04/19/23 18:39 Respiratory Rate 16 04/19/23 18:39 Blood Pressure 127/94 H 04/19/23 18:39 Pulse Oximetry 96 04/19/23 18:39 Oxygen Delivery Method Room Air 04/19/23 18:39 Temperature 98.2 F 04/19/23 18:39 Pulse Rate 65 04/19/23 20:58 Respiratory Rate 16 04/19/23 20:58 Blood Pressure 135/80 04/19/23 20:58 Pulse Oximetry 98 04/19/23 20:58 Oxygen Delivery Method Room Air 04/19/23 20:58 Medical Decision Making MDM Narrative Medical decision making narrative: Patient treated with IV fluids, Dilaudid, Zofran, Toradol. Lab studies are within normal limits including urine specimen. CT of the abdomen and pelvis with no evidence of acute process. Suspect based on the patient's low back pain into the hip that she may have musculoskeletal pain. She is discharged home on NSAIDs, muscle relaxants and follow-up with PCP. Return to the ER if symptoms change or worsen. Medical Records Medical records reviewed: Yes I reviewed the patient's medical records Lab Data Lab results reviewed: Yes I reviewed the patient's lab results Labs: Lab Results 04/19/23 Range/Units 19:00 WBC 9.9 (4.0-11.0) 10^3/uL RBC 4.80 (4.20-5.40) 10^6/uL Hgb 14.3 (12.0-16.0) g/dL Hct 43.9 (36.0-48.0) % MCV 91.5 (81.0-99.0) fL MCH 29.8 (26.7-34.0) pg MCHC 32.6 (29.9-35.2) g/dL RDW 14.2 (11.0-15.0) % Plt Count 341 (150-450) 10^3/uL MPV 9.3 L (9.5-13.5) fL Neut % (Auto) 54.0 (43.0-75.0) % Lymph % (Auto) 33.1 (20.5-60.0) % Hughes % (Auto) 9.1 (1.7-12.0) % Eos % (Auto) 2.9 (0.9-7.0) % Baso % (Auto) 0.8 (0.2-2.0) % Neut # (Auto) 5.3 (1.4-6.5) 10^3/uL Lymph # (Auto) 3.3 (1.2-3.8) 10^3/uL Hughes # (Auto) 0.9 H (0.3-0.8) 10^3/uL Eos # (Auto) 0.3 (0.0-0.7) 10^3/uL Baso # (Auto) 0.1 (0.0-0.1) 10^3/uL Abs Immat Gran (auto) 0.01 (0.00-0.03) 10^3/uL Imm/Tot Granulo (auto) 0.1 (0.0-0.5) % Sodium 138 (136-145) mmol/L Potassium 3.4 L (3.5-5.1) mmol/L Chloride 101 (98-107) mmol/L Carbon Dioxide 29.3 (21.0-32.0) mmol/L Anion Gap 11.1 BUN 7.0 (7.0-18.0) mg/dL Creatinine 0.84 (0.55-1.02) mg/dL Est GFR ( Amer) >60 (>=60) Est GFR (Non-Af Amer) >60 (>=60) BUN/Creatinine Ratio 8.3 Glucose 86 (74-106) mg/dL Lactate 1.3 (0.4-2.0) mmol/L Calcium 8.8 (8.5-10.1) mg/dL Total Bilirubin 0.3 (0.2-1.0) mg/dL AST 22 (15-37) U/L ALT 56 (14-59) U/L Alkaline Phosphatase 68 (46-116) U/L Total Protein 8.0 (6.4-8.2) g/dL Albumin 4.1 (3.4-5.0) g/dL Globulin 3.9 g/dL Albumin/Globulin Ratio 1.1 Lipase 23.0 (16.0-77.0) U/L Serum HCG, Qual Negative (NEGATIVE) Urine Color Yellow (YELLOW) Urine Clarity Clear (CLEAR) Urine pH 7.0 (5.0-9.0) Ur Specific [place] 1.015 (1.005-1.025) Urine Protein Negative (NEG/TRACE) mg/dL Urine Glucose (UA) Negative (NEGATIVE) mg/dL Urine Ketones Negative (NEGATIVE) mg/dL Urine Occult Blood Negative (NEGATIVE) Urine Nitrite Negative (NEGATIVE) Urine Bilirubin Negative (NEGATIVE) Urine Urobilinogen 1.0 (0.2-1.0) EU/dL Ur Leukocyte Esterase Negative (NEGATIVE) Imaging Data CT scan - abdomen: Attestation: I have reviewed the pertinent imaging results. Radiologist's impression: ITS Impressions Abdomen/Pelvis CT 04/19/23 19:24 IMPRESSION: No acute abnormalities in the abdomen or pelvis. Electronically authenticated by: KAUR FLOOD Date: 04/19/2023 20:01 Discharge Plan Discharge Chief Complaint: Abdominal Pain Clinical Impression: Low back pain Patient Disposition: Home, Self-Care Time of Disposition Decision: 20:31 Condition: Good Prescriptions / Home Meds: New ketorolac 10 mg tablet 10 mg PO TID PRN (Reason: pain) Qty: 10 0RF methocarbamol 750 mg tablet 750 mg PO TID PRN (Reason: pain) Qty: 20 0RF ondansetron 4 mg tablet,disintegrating 4 mg PO Q6H PRN (Reason: nausea and vomiting) Qty: 12 0RF No Action prazosin 1 mg capsule 1 mg PO Q12H Hold Instructions: pt decision oxcarbazepine 300 mg tablet 300 mg PO BID Hold Instructions: pt decision omeprazole 40 mg capsule,delayed release(DR/EC) 40 mg PO BID amitriptyline 50 mg tablet 50 mg PO QDAY albuterol sulfate 90 mcg/actuation HFA aerosol inhaler 2 inh INHALATION Q6H fluticasone propionate 50 mcg/actuation spray,suspension 2 spray INTRANASAL Q12H dicyclomine 10 mg capsule 10 mg PO BID loratadine 10 mg tablet 10 mg PO Q24H buspirone 15 mg tablet 15 mg PO QDAY cholecalciferol (vitamin D3) 25 mcg (1,000 unit) tablet 1,000 unit PO QDAY Probiotic 3 billion cell capsule 3,000 mmu cells PO DAILY Rx Instructions: administer with a meal Vraylar 3 mg capsule 6 mg PO Q24H jaiishpejq-pithnfskvcypj-btuo 50-325-40 mg tablet 1 tab PO Q6H PRN (Reason: pain) ibuprofen 800 mg tablet 800 mg PO Q8H PRN (Reason: pain) 14 Days Qty: 40 0RF oxycodone-acetaminophen [Percocet] 5-325 mg tablet 1 tab PO Q6H PRN (Reason: pain) 7 Days Qty: 28 0RF benzonatate 100 mg capsule 100 mg PO TID PRN (Reason: cough) Qty: 20 0RF ondansetron 4 mg tablet,disintegrating 4 mg PO Q6H PRN (Reason: nausea and vomiting) Qty: 20 0RF Instructions: Acute Low Back Pain (ED) Stand Alone Forms: Portal Instructions Referrals: Valentin Gallego DO [Primary Care Provider] - 1 week Discharge Date/Time: 04/19/23 20:59
[2023-04-19 19:37] LABS: Lactate/Lactic Acid 1.3 mmol/L (0.4-2.0)
[2023-04-19 19:39] LABS: HCG Qualitative NEGATIVE (NEGATIVE)
[2023-04-19] MEDS: KETOROLAC TROMETHAMINE 30 MG/ML VIAL 15 MG IVP (19:39)
[2023-04-19] MEDS: ONDANSETRON PF 4 MG/2 ML VIAL IV (19:39)
[2023-04-19] MEDS: HYDROMORPHONE HCL 1 MG/ML CARTRIDGE IV (19:40)
[2023-04-19 19:43] LABS: Alanine Aminotransferase 56 U/L (14-59); Albumin Globulin Ratio 1.1; Albumin Level 4.1 g/dL (3.4-5.0); Alkaline Phosphatase 68 U/L (46-116); Anion Gap 11.1; Aspartate Amino Transferase 22 U/L (15-37); BUN Creatinine Ratio 8.3; Bilirubin Total 0.3 mg/dL (0.2-1.0); Calcium 8.8 mg/dL (8.5-10.1); Carbon Dioxide 29.3 mmol/L (21.0-32.0); Chloride 101 mmol/L (98-107); Estimated GFR (African America >60 (>=60); Estimated GFR (Non-African Ame >60 (>=60); Globulin 3.9 g/dL; Glucose 86 mg/dL (74-106); Potassium 3.4 mmol/L (3.5-5.1); Sodium 138 mmol/L (136-145)
[2023-04-19 20:58] VITALS: BP 135/80; PULSE 65; RESP 16; O2SAT 98
== END 2023-04-19 20:59 | disposition home or self-care (01) ==
PROVIDERS: Physician Assistant; Emergency Provider Internal Medicine; PCP Obstetrics & Gynecology
DX: M54.50 Low back pain, unspecified (principal); M19.90 Unspecified osteoarthritis, unspecified site; G47.00 Insomnia, unspecified; F31.9 Bipolar disorder, unspecified; F41.9 Anxiety disorder, unspecified; J45.909 Unspecified asthma, uncomplicated; R56.9 Unspecified convulsions; Z87.442 Personal history of urinary calculi; F17.210 Nicotine dependence, cigarettes, uncomplicated; Z90.710 Acquired absence of both cervix and uterus; Z90.49 Acquired absence of other specified parts of digestive tract; Z79.899 Other long term (current) drug therapy; Z86.14 Personal history of Methicillin resistant Staphylococcus aureus infection; Z85.828 Personal history of other malignant neoplasm of skin; Z87.01 Personal history of pneumonia (recurrent); Z98.890 Other specified postprocedural states
CPT/HCPCS: 36415; 74176; 80053; 81003; 83605; 83690; 84703; 85025; 96374; 96375; 99285; J1170; J1885; J2405

== ENCOUNTER 2023-04-21 14:46 | Outpatient (OUT) | payer OTHER, SELFPAY ==
--- NOTE | 2023-04-21 14:49 | US_ITS ---
[address] [address] Patient Name: ABRAHAN WOODS MRN: [id number] date: 1990 Sex: F Assigned Patient Location: US Current Patient Location: Accession/Order Number: [id number] Exam Date: 04/21/2023 15:00 Report Date: 04/21/2023 15:38 At the request of: LUKE VICENTE Procedure: US pelvis transvaginal EXAM: Pelvic ultrasound ultrasound CLINICAL INDICATION: pelvic pain in female R10.2. COMPARISON: Ultrasound dated 09/17/2022 TECHNIQUE: Transvaginal grayscale and color Doppler images were obtained. FINDINGS: Hysterectomy. Right ovary: Measures 1.9 x 1.7 x 1.9 cm. Normal color flow and Doppler arterial and venous waveforms. No ovarian masses. Left ovary: Measures 2.4 x 2.2 x 2.0 cm. Normal color flow and Doppler arterial and venous waveforms. No ovarian masses. Dominant left ovarian follicle measuring up to 1.5 cm. No free fluid in the pelvis. US/US pelvis transvaginal IMPRESSION: Hysterectomy. Otherwise, no significant sonographic abnormalities in the pelvis. Electronically authenticated by: KAUR FLOOD Date: 04/21/2023 15:38
== END 2023-04-21 14:47 | disposition home or self-care (01) ==
LOC: US 14:46
PROVIDERS: PCP Obstetrics & Gynecology; Visit Provider Obstetrics & Gynecology
DX: R10.2 Pelvic and perineal pain (principal)
CPT/HCPCS: 76830

== ENCOUNTER 2023-04-23 14:59 | Emergency (ER) | payer OTHER, SELFPAY ==
[2023-04-23 15:03] VITALS: BP 141/87; PULSE 89; RESP 20; TEMP 37.3; O2SAT 98; BMI 35.4
--- NOTE | 2023-04-23 15:29 | ED_ITS ---
HPI - Nausea/Vomiting/Diarrhea General Chief complaint: Nausea/Vomiting/Diarrhea Stated complaint: Abdominal Pain Time Seen by Provider: 04/23/23 15:20 Source: patient Mode of arrival: walk-in Limitations: no limitations History of Present Illness HPI Narrative: this patient was here couple days ago with pain in the right upper quadrant going into her back. CT scan that time was normal. Her white blood cell count and liver function tests I believe are unremarkable. She has been able to eat since she went home but she gets nauseated afterwards. She's not actually had a vomiting but she did take some Zofran because the nausea. She also developed diarrhea today that is a new finding that she did not have two days ago. She is not on any antibiotics. She's already previously had a cholecystectomy. she is not running a fever and is afebrile here. She doesn't remember them telling her if she had small gallstones. Related Data Home Medications Medication Instructions Recorded Confirmed albuterol sulfate 90 mcg/actuation 2 inh inhalation Q6H 10/15/22 04/23/23 aerosol inhaler amitriptyline 50 mg tablet 50 mg PO QDAY 10/15/22 04/23/23 buspirone 15 mg tablet 15 mg PO QDAY 10/15/22 04/23/23 oewiuzrqgk-ytpyixlzfmlxk-iasebwks 1 tab PO Q6H PRN pain 10/15/22 10/29/22 50 mg-325 mg-40 mg tablet cholecalciferol (vitamin D3) 25 1,000 unit PO QDAY 10/15/22 04/23/23 mcg (1,000 unit) tablet fluticasone propionate 50 2 spray intranasal Q12H 10/15/22 04/23/23 mcg/actuation nasal spray,suspension omeprazole 40 mg capsule,delayed 40 mg PO BID 10/15/22 04/23/23 release oxcarbazepine 300 mg tablet 300 mg PO BID 10/15/22 04/23/23 prazosin 1 mg capsule 1 mg PO Q12H 10/15/22 04/23/23 Previous Rx's Medication Instructions Recorded ondansetron 4 mg disintegrating 4 mg PO Q6H PRN nausea and 01/27/23 tablet vomiting #20 tabs ketorolac 10 mg tablet 10 mg PO TID PRN pain #10 tabs 04/19/23 methocarbamol 750 mg tablet 750 mg PO TID PRN pain #20 tabs 04/19/23 ondansetron 4 mg disintegrating 4 mg PO Q6H PRN nausea and 04/19/23 tablet vomiting #12 tabs Allergies Allergy/AdvReac Type Severity Reaction Status Date / Time adhesive tape Allergy Rash Verified 01/27/23 16:34 bales Allergy throat Verified 01/27/23 16:34 swelling latex Allergy Rash Verified 01/27/23 16:34 morphine AdvReac Severe Vomiting Verified 01/27/23 17:43 [facility] Medical History (Updated 04/23/23 @ 16:48 by Braxton Finley MD) Clostridium difficile infection ?A49.8 - Other bacterial infections of unspecified site (ICD-10) MRSA (methicillin resistant Staphylococcus aureus) ?A49.02 - Methicillin resistant Staphylococcus aureus infection, unspecified site (ICD-10) Skin cancer ?C44.90 - Unspecified malignant neoplasm of skin, unspecified (ICD-10) Anemia ?D64.9 - Anemia, unspecified (ICD-10) Back pain ?M54.9 - Dorsalgia, unspecified (ICD-10) Arthritis ?M19.90 - Unspecified osteoarthritis, unspecified site (ICD-10) Insomnia ?G47.00 - Insomnia, unspecified (ICD-10) Panic attacks ?F41.0 - Panic disorder [episodic paroxysmal anxiety] (ICD-10) Bipolar disorder ?F31.9 - Bipolar disorder, unspecified (ICD-10) Depression ?F32.A - Depression, unspecified (ICD-10) Anxiety ?F41.9 - Anxiety disorder, unspecified (ICD-10) Pneumonia ?J18.9 - Pneumonia, unspecified organism (ICD-10) Asthma ?J45.909 - Unspecified asthma, uncomplicated (ICD-10) Migraine ?G43.909 - Migraine, unspecified, not intractable, without status migrainosus (ICD-10) Seizures ?R56.9 - Unspecified convulsions (ICD-10) Kidney stones ?N20.0 - Calculus of kidney (ICD-10) Heartburn ?R12 - Heartburn (ICD-10) Palpitations ?R00.2 - Palpitations (ICD-10) Irregular heart beat ?I49.9 - Cardiac arrhythmia, unspecified (ICD-10) Dyspareunia Dysmenorrhea ?N94.6 - Dysmenorrhea, unspecified (ICD-10) Menorrhagia ?N92.0 - Excessive and frequent menstruation with regular cycle (ICD-10) Pelvic pain ?R10.2 - Pelvic and perineal pain (ICD-10) Postoperative nausea and vomiting ?R11.2 - Nausea with vomiting, unspecified (ICD-10) ?Z98.890 - Other specified postprocedural states (ICD-10) Delayed recovery from anesthesia Surgical History (Updated 10/15/22 @ 09:30 by Trcai Cadet NP) History of tonsillectomy and adenoidectomy ?Z90.89 - Acquired absence of other organs (ICD-10) History of hernia repair ?Z98.890 - Other specified postprocedural states (ICD-10) ?Z87.19 - Personal history of other diseases of the digestive system (ICD-10) History of endometrial ablation ?Z98.890 - Other specified postprocedural states (ICD-10) History of cholecystectomy (04/07/22) ?Z90.49 - Acquired absence of other specified parts of digestive tract (ICD- 10) History of tubal ligation ?Z98.51 - Tubal ligation status (ICD-10) Family History (Updated 10/15/22 @ 09:30 by Traci Cadet NP) Other Family history of COPD (chronic obstructive pulmonary disease) Family history of breast cancer Family history of cervical cancer Family history of coronary artery disease Family history of diabetes mellitus Family history of emphysema Family history of heart disease Family history of lung cancer Family history of myocardial infarction Family history of prostate cancer Family history of renal failure Family history of stroke Social History Within the past year, how often did you have a drink containing alcohol: monthly or less Smoking status: Heavy tobacco smoker What tobacco products do you use: cigarettes Packs per day: 3 Years smoked: 7 Smoking pack-years: 21.00 Non-prescribed substance use: denies use Highest level of school completed/degree received: high school graduate Exam Narrative Exam Narrative: awake alert oriented ?3 appears to be uncomfortable. Her vital signs however are stable and she is afebrile. Heart rate eighty-nine blood pressure 141/87 on examination I do not see any indication of scleral icterus or jaundice. Examination her abdomen laparoscopic surgical incisions are noted. She has mild discomfort in the right mid and right upper quadrant but no peritoneal findings, no guarding or rebound. No tenderness to palpation of the right lower quadrant. Additionally she has no symptoms over the last forty-eight hours of any type of discomfort on the left side of the abdomen. She does not have cough congestion or shortness of breath. In an upright position I do not see any evidence of shingles. Her lungs are clear . There is no bruises contusions or injuries to her back. Constitutional Vital Signs, click to edit/add: Last Vital Signs Temp 99.2 F 04/23/23 15:03 Pulse 89 04/23/23 15:03 Resp 20 04/23/23 15:03 BP 141/87 04/23/23 15:03 Pulse Ox 98 04/23/23 15:03 Course Vital Signs Vital signs: Vital Signs Temperature 99.2 F 04/23/23 15:03 Pulse Rate 89 04/23/23 15:03 Respiratory Rate 20 04/23/23 15:03 Blood Pressure 141/87 04/23/23 15:03 Pulse Oximetry 98 04/23/23 15:03 Temperature 99.2 F 04/23/23 15:03 Pulse Rate 89 04/23/23 15:03 Respiratory Rate 20 04/23/23 15:03 Blood Pressure 141/87 04/23/23 15:03 Pulse Oximetry 98 04/23/23 15:03 MDM - Nausea/Vomiting/Diarrhea MDM Narrative Medical decision making narrative: this patient's laboratory testing chemistry profile CBC and repeat CAT scan are all without any acute findings. I believe her discomfort must be functional discomfort. I don't believe she needs a ultrasound because with no bile duct dilation on CT, normal chemistries and knowing increase in her alkaline phosphatase or total bilirubin it's extremely unlikely that she has a small stone. Put her on a clear liquid diet forty-eight hours antispasmodics and she can follow up with her primary care doctor or gastrointestinal as necessary Discharge Plan Discharge Chief Complaint: Nausea/Vomiting/Diarrhea Clinical Impression: Abdominal pain Patient Disposition: Home, Self-Care Time of Disposition Decision: 16:47 Prescriptions / Home Meds: No Action prazosin 1 mg capsule 1 mg PO Q12H Hold Instructions: pt decision oxcarbazepine 300 mg tablet 300 mg PO BID Hold Instructions: pt decision omeprazole 40 mg capsule,delayed release(DR/EC) 40 mg PO BID amitriptyline 50 mg tablet 50 mg PO QDAY albuterol sulfate 90 mcg/actuation HFA aerosol inhaler 2 inh INHALATION Q6H fluticasone propionate 50 mcg/actuation spray,suspension 2 spray INTRANASAL Q12H buspirone 15 mg tablet 15 mg PO QDAY cholecalciferol (vitamin D3) 25 mcg (1,000 unit) tablet 1,000 unit PO QDAY ayrjyrcaqf-atmihqrzxsxjf-ggaz 50-325-40 mg tablet 1 tab PO Q6H PRN (Reason: pain) ondansetron 4 mg tablet,disintegrating 4 mg PO Q6H PRN (Reason: nausea and vomiting) Qty: 20 0RF ketorolac 10 mg tablet 10 mg PO TID PRN (Reason: pain) Qty: 10 0RF methocarbamol 750 mg tablet 750 mg PO TID PRN (Reason: pain) Qty: 20 0RF ondansetron 4 mg tablet,disintegrating 4 mg PO Q6H PRN (Reason: nausea and vomiting) Qty: 12 0RF Additional Instructions: left 7/frequent but small sips of clear fluids only. Follow-up with primary care doctor for possible gastrointestinal referral Stand Alone Forms: Portal Instructions Referrals: Physician,Non-Staff, MD [Primary Care Provider] - 1 week
--- NOTE | 2023-04-23 15:33 | CT_ITS ---
The [address] [address] Patient Name: ABRAHAN WOODS MRN: [id number] date: 1990 Sex: F Assigned Patient Location: ER Current Patient Location: ER Accession/Order Number: [id number] Exam Date: 04/23/2023 15:47 Report Date: 04/23/2023 16:15 At the request of: ANDRZEJ FERRARA Procedure: CT abdomen pelvis w con EXAM: CT abdomen pelvis w con HISTORY: abdominal pain COMPARISON: 04/19/2023 TECHNIQUE: Axial CT images were obtained of the abdomen and pelvis with intravenous contrast. Multiplanar reconstructions were performed. ABDOMEN/PELVIS FINDINGS: Lower Chest: Unremarkable. Liver: Normal enhancement and contour. Biliary/Gallbladder: Prior cholecystectomy. Pancreas: Unremarkable. Spleen: Unremarkable. Adrenal Glands: Unremarkable. Kidneys: Unremarkable. Gastrointestinal/Peritoneum: No acute abnormality. The appendix is unremarkable. No free air or free fluid. Vascular: Unremarkable. Lymph Nodes: No enlarged lymph nodes by CT size criteria. Pelvic Organs: Prior hysterectomy. The ovaries are noted to be present. Bladder: Unremarkable. Bones: No acute osseous abnormality. Soft tissues: There is a fat-containing infraumbilical hernia measuring 2.7 x 2.6 cm. There are tiny fat-containing bilateral inguinal hernias. CT/CT abdomen pelvis w con IMPRESSION: 1. No acute abnormality of the abdomen and pelvis. 2. Fat-containing infraumbilical hernia. 3. Tiny fat-containing bilateral inguinal hernias. 4. Prior cholecystectomy and hysterectomy. Electronically authenticated by: CHRISTINE QUIROZ Date: 04/23/2023 16:15
[2023-04-23 15:55] LABS: Basophils Absolute Auto 0.1 10^3/uL (0.0-0.1); Basophils Percent Auto 0.7 % (0.2-2.0); Eosinophils Absolute Auto 0.3 10^3/uL (0.0-0.7); Eosinophils Percent Auto 3.2 % (0.9-7.0); Hematocrit 42.7 % (36.0-48.0); Hemoglobin 13.9 g/dL (12.0-16.0); Immature Granulocytes Abs Auto 0.03 10^3/uL (0.00-0.03); Immature Granulocytes Pct Auto 0.3 % (0.0-0.5); Lymphocytes Absolute Auto 2.4 10^3/uL (1.2-3.8); Mean Corpuscular HGB Conc 32.6 g/dL (29.9-35.2); Mean Corpuscular Hemoglobin 30.2 pg (26.7-34.0); Mean Corpuscular Volume 92.8 fL (81.0-99.0); Mean Platelet Volume 10.2 fL (9.5-13.5); Monocytes Absolute Auto 0.8 10^3/uL (0.3-0.8); Monocytes Percent Auto 7.6 % (1.7-12.0); Neutrophils Absolute Auto 7.1 10^3/uL (1.4-6.5); Neutrophils Percent Auto 66.2 % (43.0-75.0); Platelet Count 332 10^3/uL (150-450); Red Cell Distribution Width 14.5 % (11.0-15.0); White Blood Count 10.7 10^3/uL (4.0-11.0)
[2023-04-23] MEDS: 0.9 % SODIUM CHLORIDE 1,000 ML 999 ML IV (16:01)
[2023-04-23 16:17] LABS: Alanine Aminotransferase 26 U/L (14-59); Albumin Globulin Ratio 1.1; Albumin Level 3.9 g/dL (3.4-5.0); Alkaline Phosphatase 54 U/L (46-116); Anion Gap 13.9; Aspartate Amino Transferase 12 U/L (15-37); BUN Creatinine Ratio 9.2; Bilirubin Total 0.3 mg/dL (0.2-1.0); Calcium 8.9 mg/dL (8.5-10.1); Carbon Dioxide 28.7 mmol/L (21.0-32.0); Chloride 104 mmol/L (98-107); Estimated GFR (African America >60 (>=60); Estimated GFR (Non-African Ame >60 (>=60); Globulin 3.4 g/dL; Glucose 92 mg/dL (74-106); Potassium 3.6 mmol/L (3.5-5.1); Sodium 143 mmol/L (136-145); Total Protein 7.3 g/dL (6.4-8.2)
== END 2023-04-23 17:06 | disposition home or self-care (01) ==
PROVIDERS: Emergency Provider Emergency Medicine Emergency Medical Services
DX: R10.9 Unspecified abdominal pain (principal); M19.90 Unspecified osteoarthritis, unspecified site; G47.00 Insomnia, unspecified; F31.9 Bipolar disorder, unspecified; F41.9 Anxiety disorder, unspecified; J45.909 Unspecified asthma, uncomplicated; Z87.01 Personal history of pneumonia (recurrent); Z90.49 Acquired absence of other specified parts of digestive tract; Z79.899 Other long term (current) drug therapy; Z86.14 Personal history of Methicillin resistant Staphylococcus aureus infection; Z85.828 Personal history of other malignant neoplasm of skin; Z87.442 Personal history of urinary calculi; Z98.51 Tubal ligation status; Z98.890 Other specified postprocedural states; Z87.19 Personal history of other diseases of the digestive system; F17.210 Nicotine dependence, cigarettes, uncomplicated
CPT/HCPCS: 36415; 74177; 80053; 83690; 85025; 96360; 99285; Q9967

== ENCOUNTER 2023-06-28 17:13 | Emergency (ER) | payer OTHER, SELFPAY ==
[2023-06-28 17:20] VITALS: BP 123/71; PULSE 62; RESP 18; TEMP 36.8; O2SAT 98; BMI 29.5
--- NOTE | 2023-06-28 18:05 | ED_ITS ---
HPI - General Adult General Chief complaint: Extremity Injury, Lower Stated complaint: Lower Extremity Pain Time Seen by Provider: 06/28/23 17:37 Source: patient Mode of arrival: walk-in History of Present Illness HPI narrative: Patient is a 32-year-old female who is presenting to the ER today with chief complaint of pain to the base of her right foot, over the head of her 5 metatarsals. Patient has some mild swelling, and pain to the area with flexion extension of all 5 toes. Patient has no pain to her ankle, Achilles, no acute injury. Patient was working the last couple days, wearing flats for shoes, she does not use arches. Patient was standing on her feet longer than usual for the last couple days, patient's pain started today. She had no injury. Patient has no other acute complaints, patient walked into the ER wearing slippers. All systems are negative except as noted/marked. All systems reviewed and otherwise negative. Nurses note and vital signs reviewed and patient is not hypoxic. Patient Is very poor hygiene, Smells of body odor General: The patient appears well and in no apparent distress. Patient is resting comfortably on cart. Patient is not toxic, lethargic, or listless Skin: Warm, dry, no pallor noted. Multiple piercings Tattoos. The secondary infection. There is no rash noted. No petechiae, purpura. Patient has minimal swelling over the heads of the 5 metatarsals of her right foot, no redness, no foreign bodies palpated, no crepitus, no signs of infection. Patient has pain with flexion and extension of all 5 toes of her right foot over the heads of the 5 metatarsals. Patient has no pains her calcaneus, normal Achilles. No tenderness to palpation to bilateral malleoli. No signs of gout or acute signs of infection. No cellulitis. No foreign bodies noted. No lacerations or trauma noted. Head: Normocephalic, atraumatic Eye: Normal conjunctiva, no drainage, EOMI. PERRL Ears, Nose, Mouth, and Throat: oral mucosa is moist. Nares patent. Mouth without vesicles. Cardiovascular: Regular Rate and Rhythm, no murmur, gallop, rub Respiratory: Patient is in no distress, no accessory muscle use, lungs are clear to auscultation, no wheezing, rales or rhonchi Musculoskeletal: Patient has full range of motion of all of the extremities, no motor, sensory, or focal neurological deficits Neurological: A&O x4, normal speech Psychiatric: Cooperative Related Data Home Medications Medication Instructions Recorded Confirmed albuterol sulfate 90 mcg/actuation 2 inh inhalation Q6H 10/15/22 04/23/23 aerosol inhaler amitriptyline 50 mg tablet 50 mg PO QDAY 10/15/22 04/23/23 buspirone 15 mg tablet 15 mg PO QDAY 10/15/22 04/23/23 oiomyrreff-epqmjavzfxuak-djoqeczw 1 tab PO Q6H PRN pain 10/15/22 10/29/22 50 mg-325 mg-40 mg tablet cholecalciferol (vitamin D3) 25 1,000 unit PO QDAY 10/15/22 04/23/23 mcg (1,000 unit) tablet fluticasone propionate 50 2 spray intranasal Q12H 10/15/22 04/23/23 mcg/actuation nasal spray,suspension omeprazole 40 mg capsule,delayed 40 mg PO BID 10/15/22 04/23/23 release oxcarbazepine 300 mg tablet 300 mg PO BID 10/15/22 04/23/23 prazosin 1 mg capsule 1 mg PO Q12H 10/15/22 04/23/23 Previous Rx's Medication Instructions Recorded ondansetron 4 mg disintegrating 4 mg PO Q6H PRN nausea and 01/27/23 tablet vomiting #20 tabs ketorolac 10 mg tablet 10 mg PO TID PRN pain #10 tabs 04/19/23 methocarbamol 750 mg tablet 750 mg PO TID PRN pain #20 tabs 04/19/23 ondansetron 4 mg disintegrating 4 mg PO Q6H PRN nausea and 04/19/23 tablet vomiting #12 tabs Allergies Allergy/AdvReac Type Severity Reaction Status Date / Time adhesive tape Allergy Rash Verified 01/27/23 16:34 bales Allergy throat Verified 01/27/23 16:34 swelling latex Allergy Rash Verified 01/27/23 16:34 morphine AdvReac Severe Vomiting Verified 01/27/23 17:43 PFSH PFSH Medical History (Updated 06/28/23 @ 18:04 by Cameron Velásquez MD) Clostridium difficile infection ?A49.8 - Other bacterial infections of unspecified site (ICD-10) MRSA (methicillin resistant Staphylococcus aureus) ?A49.02 - Methicillin resistant Staphylococcus aureus infection, unspecified site (ICD-10) Skin cancer ?C44.90 - Unspecified malignant neoplasm of skin, unspecified (ICD-10) Anemia ?D64.9 - Anemia, unspecified (ICD-10) Back pain ?M54.9 - Dorsalgia, unspecified (ICD-10) Arthritis ?M19.90 - Unspecified osteoarthritis, unspecified site (ICD-10) Insomnia ?G47.00 - Insomnia, unspecified (ICD-10) Panic attacks ?F41.0 - Panic disorder [episodic paroxysmal anxiety] (ICD-10) Bipolar disorder ?F31.9 - Bipolar disorder, unspecified (ICD-10) Depression ?F32.A - Depression, unspecified (ICD-10) Anxiety ?F41.9 - Anxiety disorder, unspecified (ICD-10) Pneumonia ?J18.9 - Pneumonia, unspecified organism (ICD-10) Asthma ?J45.909 - Unspecified asthma, uncomplicated (ICD-10) Migraine ?G43.909 - Migraine, unspecified, not intractable, without status migrainosus (ICD-10) Seizures ?R56.9 - Unspecified convulsions (ICD-10) Kidney stones ?N20.0 - Calculus of kidney (ICD-10) Heartburn ?R12 - Heartburn (ICD-10) Palpitations ?R00.2 - Palpitations (ICD-10) Irregular heart beat ?I49.9 - Cardiac arrhythmia, unspecified (ICD-10) Dyspareunia Dysmenorrhea ?N94.6 - Dysmenorrhea, unspecified (ICD-10) Menorrhagia ?N92.0 - Excessive and frequent menstruation with regular cycle (ICD-10) Pelvic pain ?R10.2 - Pelvic and perineal pain (ICD-10) Postoperative nausea and vomiting ?R11.2 - Nausea with vomiting, unspecified (ICD-10) ?Z98.890 - Other specified postprocedural states (ICD-10) Delayed recovery from anesthesia Surgical History (Updated 10/15/22 @ 09:30 by Traci Cadet NP) History of tonsillectomy and adenoidectomy ?Z90.89 - Acquired absence of other organs (ICD-10) History of hernia repair ?Z98.890 - Other specified postprocedural states (ICD-10) ?Z87.19 - Personal history of other diseases of the digestive system (ICD-10) History of endometrial ablation ?Z98.890 - Other specified postprocedural states (ICD-10) History of cholecystectomy (04/07/22) ?Z90.49 - Acquired absence of other specified parts of digestive tract (ICD- 10) History of tubal ligation ?Z98.51 - Tubal ligation status (ICD-10) Family History (Updated 10/15/22 @ 09:30 by Traci Cadet NP) Other Family history of COPD (chronic obstructive pulmonary disease) Family history of breast cancer Family history of cervical cancer Family history of coronary artery disease Family history of diabetes mellitus Family history of emphysema Family history of heart disease Family history of lung cancer Family history of myocardial infarction Family history of prostate cancer Family history of renal failure Family history of stroke Social History Within the past year, how often did you have a drink containing alcohol: monthly or less Smoking status: Heavy tobacco smoker What tobacco products do you use: cigarettes Packs per day: 3 Years smoked: 7 Smoking pack-years: 21.00 Non-prescribed substance use: denies use Highest level of school completed/degree received: high school graduate Exam Constitutional Vital Signs, click to edit/add: Last Vital Signs Temp 98.2 F 06/28/23 17:20 Pulse 62 06/28/23 17:20 Resp 18 06/28/23 17:20 BP 123/71 06/28/23 17:20 Pulse Ox 98 06/28/23 17:20 Course Vital Signs Vital signs: Vital Signs Temperature 98.2 F 06/28/23 17:20 Pulse Rate 62 06/28/23 17:20 Respiratory Rate 18 06/28/23 17:20 Blood Pressure 123/71 06/28/23 17:20 Pulse Oximetry 98 06/28/23 17:20 Temperature 98.2 F 06/28/23 17:20 Pulse Rate 62 06/28/23 17:20 Respiratory Rate 18 06/28/23 17:20 Blood Pressure 123/71 06/28/23 17:20 Pulse Oximetry 98 06/28/23 17:20 Medical Decision Making MDM Narrative Medical decision making narrative: Patient was placed in Shin wrap and postop shoe to her right foot. Splint was assisted with . the patient was neurovascularly intact before and after the splint was placed. the affected bones/injured area had proper alignment in a splint. Education on splint care at home was given at bedside. Patient and family have no questions at discharge. Patient was given ice, education ice and anti-inflammatories were discussed at bedside. Patient was referred to podiatry if needed. Discharge Plan Discharge Stand Alone Forms: Portal Instructions Chief Complaint: Extremity Injury, Lower Clinical Impression: Foot pain, right Patient Disposition: Home, Self-Care Time of Disposition Decision: 18:04 Condition: Fair Prescriptions / Home Meds: No Action prazosin 1 mg capsule 1 mg PO Q12H Hold Instructions: pt decision oxcarbazepine 300 mg tablet 300 mg PO BID Hold Instructions: pt decision omeprazole 40 mg capsule,delayed release(DR/EC) 40 mg PO BID amitriptyline 50 mg tablet 50 mg PO QDAY albuterol sulfate 90 mcg/actuation HFA aerosol inhaler 2 inh INHALATION Q6H fluticasone propionate 50 mcg/actuation spray,suspension 2 spray INTRANASAL Q12H buspirone 15 mg tablet 15 mg PO QDAY cholecalciferol (vitamin D3) 25 mcg (1,000 unit) tablet 1,000 unit PO QDAY qsohrqwdsr-jyzgogcxziwkt-hndt 50-325-40 mg tablet 1 tab PO Q6H PRN (Reason: pain) ondansetron 4 mg tablet,disintegrating 4 mg PO Q6H PRN (Reason: nausea and vomiting) Qty: 20 0RF ketorolac 10 mg tablet 10 mg PO TID PRN (Reason: pain) Qty: 10 0RF methocarbamol 750 mg tablet 750 mg PO TID PRN (Reason: pain) Qty: 20 0RF ondansetron 4 mg tablet,disintegrating 4 mg PO Q6H PRN (Reason: nausea and vomiting) Qty: 12 0RF Instructions: Foot Sprain (ED), P.R.I.C.E. Treatment (ED) Additional Instructions: Ice 20 minutes on, 20 minutes off. Use Shin wrap and postop shoe for the next 3 to 5 days while ambulating only to help with pain and swelling. Follow-up with Dr. Reynolds if no improvement in the next 3 to 5 days Referrals: Physician,Non-Staff, MD [Primary Care Provider] - 1 week Carlos Reynolds DPM [Physician] - 1 week Discharge Date/Time: 06/28/23 18:14
== END 2023-06-28 18:14 | disposition home or self-care (01) ==
PROVIDERS: Emergency Provider Emergency Medicine
DX: M79.671 Pain in right foot (principal); M19.90 Unspecified osteoarthritis, unspecified site; F31.9 Bipolar disorder, unspecified; F41.9 Anxiety disorder, unspecified; J45.909 Unspecified asthma, uncomplicated; Z87.01 Personal history of pneumonia (recurrent); Z87.442 Personal history of urinary calculi; Z90.89 Acquired absence of other organs; Z98.890 Other specified postprocedural states; Z90.49 Acquired absence of other specified parts of digestive tract; Z98.51 Tubal ligation status; F17.210 Nicotine dependence, cigarettes, uncomplicated; Z79.899 Other long term (current) drug therapy; Z86.14 Personal history of Methicillin resistant Staphylococcus aureus infection; Z85.828 Personal history of other malignant neoplasm of skin
CPT/HCPCS: 99283

== ENCOUNTER 2023-07-01 10:01 | Outpatient (OUT) | payer OTHER, SELFPAY ==
--- NOTE | 2023-07-01 | XR_ITS ---
The [address] [address] Patient Name: ABRAHAN WOODS MRN: [id number] date: 1990 Sex: F Assigned Patient Location: Current Patient Location: Accession/Order Number: [id number] Exam Date: 07/01/2023 10:05 Report Date: 07/02/2023 07:28 At the request of: ERNIE APPIAH Procedure: XR foot RT min 3V PROCEDURE: XR foot RT min 3V HISTORY: RIGHT FOOT PAIN plantar metatarsal region; no known injury COMPARISON: None. FINDINGS: BONES:No fracture, acute abnormality, or significant arthropathy. SOFT TISSUES:No visible soft tissue swelling. EFFUSION:None visible. OTHER: Negative. XR/XR foot RT min 3V IMPRESSION: 1. Normal examination. No suspicious findings to account for patient's symptoms. Electronically authenticated by: KIRK SHANNON Date: 07/02/2023 07:28
== END 2023-07-01 10:02 | disposition home or self-care (01) ==
PROVIDERS: Visit Provider Physician Assistant
DX: M79.671 Pain in right foot (principal)
CPT/HCPCS: 73630

== ENCOUNTER 2023-07-13 09:22 | Outpatient (REF) | payer OTHER, SELFPAY | END 2023-07-13 09:23 | disposition home or self-care (01) | LOC: LAB 09:22 | PROVIDERS: Visit Provider Obstetrics & Gynecology | DX: L85.8 Other specified epidermal thickening (principal) | CPT/HCPCS: 88305 ==

== ENCOUNTER 2023-07-20 19:34 | Emergency (ER) | payer OTHER, SELFPAY ==
[2023-07-20 19:38] VITALS: BP 121/85; PULSE 105; TEMP 37.3; O2SAT 100; BMI 30.2
[2023-07-20 19:40] VITALS: O2SAT 100
[2023-07-20 19:44] VITALS: BP 121/85
--- NOTE | 2023-07-20 19:51 | ECG_ITS ---
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
--- NOTE | 2023-07-20 19:51 | CT_ITS ---
The [address] [address] Patient Name: ABRAHAN WOODS MRN: [id number] date: 1990 Sex: F Assigned Patient Location: ER Current Patient Location: [facility] Accession/Order Number: [id number] Exam Date: 07/20/2023 20:08 Report Date: 07/20/2023 20:58 At the request of: TYSON GIBBS Procedure: CT head/brain wo con EXAM: CT head/brain wo con HISTORY: seizure COMPARISON: 08/07/2009 TECHNIQUE: CT of the head without intravenous contrast. Dose reduction techniques were achieved by using automated exposure control and/or adjustment of mA and/or kV according to patient size and/or use of iterative reconstruction technique. . FINDINGS: The brain parenchyma density is unremarkable. There is no acute intracranial hemorrhage, extra axial fluid collection, midline shift, or mass effect. There is no evidence to suggest acute infarction. The ventricles, sulci, and cisterns are normal in size and configuration, without evidence of hydrocephalus or herniation. The partially visualized paranasal sinuses and mastoid air cells are well pneumatized and clear. There are no suspicious osseous lytic or sclerotic lesions. There are no acute fractures. The extracranial soft tissues are unremarkable. CT/CT head/brain wo con IMPRESSION: No acute intracranial process. Electronically authenticated by: BAN WOODY Date: 07/20/2023 20:58
[2023-07-20 19:55] VITALS: PULSE 105; O2SAT 100
[2023-07-20 19:59] LABS: Basophils Absolute Auto 0.1 10^3/uL (0.0-0.1); Basophils Percent Auto 0.7 % (0.2-2.0); Eosinophils Absolute Auto 0.3 10^3/uL (0.0-0.7); Hematocrit 42.2 % (36.0-48.0); Hemoglobin 13.8 g/dL (12.0-16.0); Immature Granulocytes Abs Auto 0.02 10^3/uL (0.00-0.03); Immature Granulocytes Pct Auto 0.2 % (0.0-0.5); Lymphocytes Absolute Auto 2.7 10^3/uL (1.2-3.8); Lymphocytes Percent Auto 28.9 % (20.5-60.0); Mean Corpuscular HGB Conc 32.7 g/dL (29.9-35.2); Mean Corpuscular Hemoglobin 29.7 pg (26.7-34.0); Mean Corpuscular Volume 90.9 fL (81.0-99.0); Mean Platelet Volume 9.6 fL (9.5-13.5); Monocytes Absolute Auto 0.9 10^3/uL (0.3-0.8); Monocytes Percent Auto 9.5 % (1.7-12.0); Neutrophils Absolute Auto 5.4 10^3/uL (1.4-6.5); Neutrophils Percent Auto 57.7 % (43.0-75.0); Platelet Count 281 10^3/uL (150-450); Red Blood Count 4.64 10^6/uL (4.20-5.40); Red Cell Distribution Width 13.7 % (11.0-15.0); White Blood Count 9.4 10^3/uL (4.0-11.0)
[2023-07-20 20:00] VITALS: BP 120/90; PULSE 80; O2SAT 100
[2023-07-20 20:13] LABS: HCG Qualitative NEGATIVE (NEGATIVE)
[2023-07-20 20:18] LABS: Alanine Aminotransferase 44 U/L (14-59); Albumin Globulin Ratio 1.2; Albumin Level 3.7 g/dL (3.4-5.0); Alkaline Phosphatase 62 U/L (46-116); Anion Gap 13.6; Aspartate Amino Transferase 17 U/L (15-37); BUN Creatinine Ratio 8.4; Bilirubin Total 0.3 mg/dL (0.2-1.0); Calcium 8.6 mg/dL (8.5-10.1); Carbon Dioxide 26.9 mmol/L (21.0-32.0); Chloride 105 mmol/L (98-107); Estimated GFR (African America >60 (>=60); Estimated GFR (Non-African Ame >60 (>=60); Globulin 3.1 g/dL; Glucose 70 mg/dL (74-106); Potassium 3.5 mmol/L (3.5-5.1); Sodium 142 mmol/L (136-145); Total Protein 6.8 g/dL (6.4-8.2)
[2023-07-20] MEDS: 0.9 % SODIUM CHLORIDE 1,000 ML 999 ML IV (20:18)
[2023-07-20] MEDS: ONDANSETRON PF 4 MG/2 ML VIAL IV (20:18)
[2023-07-20 20:21] LABS: Troponin I High Sensitivity 7.6 pg/mL (4.0-51.3)
[2023-07-20 20:30] VITALS: PULSE 76; O2SAT 99
--- NOTE | 2023-07-20 20:31 | ED_ITS ---
HPI - Seizure General Chief Complaint: Head Injury Stated Complaint: Seizure, Headache Time Seen by Provider: 07/20/23 19:37 Source: patient Mode of arrival: Wheelchair History of Present Illness HPI Narrative: Patient had two seizures today. She had one yesterday and another on 07/13/23 while getting a tag biopsy in Dr Gallego's office. She takes trileptal. She used to take dilantin and keppra but could not tolerate them - they caused mood swings she told me. She admitted to headache and some chills over the last week but no fever. Nausea and vomiting since her seizure yesterday, in which she apparently injured her head when she fell to the groundduring the seizure. The seizure 07/13/23 was witnessed by the and the seizure yesterday and the two today were witnessed by the patient's friend. Patient complains of weakness and headache, nausea and is crying/emotional on arrival. No other injuries sustained, she told me. Seizure History: Yes (patient states had small seizure' last month) Related Data Home Medications ?Medication ?Instructions ?Recorded ?Confirmed amitriptyline 50 mg tablet 50 mg PO QDAY 10/15/22 07/20/23 oxcarbazepine 300 mg tablet 300 mg PO BID 10/15/22 07/20/23 buspirone 10 mg tablet 10 mg PO BID 07/20/23 07/20/23 Allergies Allergy/AdvReac Type Severity Reaction Status Date / Time adhesive tape Allergy Rash Verified 01/27/23 16:34 bales Allergy throat Verified 01/27/23 16:34 swelling latex Allergy Rash Verified 01/27/23 16:34 morphine AdvReac Severe Vomiting Verified 01/27/23 17:43 [facility] Medical History (Updated 07/20/23 @ 20:37 by Tyson Gibbs) Clostridium difficile infection ?A49.8 - Other bacterial infections of unspecified site (ICD-10) MRSA (methicillin resistant Staphylococcus aureus) ?A49.02 - Methicillin resistant Staphylococcus aureus infection, unspecified site (ICD-10) Skin cancer ?C44.90 - Unspecified malignant neoplasm of skin, unspecified (ICD-10) Anemia ?D64.9 - Anemia, unspecified (ICD-10) Back pain ?M54.9 - Dorsalgia, unspecified (ICD-10) Arthritis ?M19.90 - Unspecified osteoarthritis, unspecified site (ICD-10) Insomnia ?G47.00 - Insomnia, unspecified (ICD-10) Panic attacks ?F41.0 - Panic disorder [episodic paroxysmal anxiety] (ICD-10) Bipolar disorder ?F31.9 - Bipolar disorder, unspecified (ICD-10) Depression ?F32.A - Depression, unspecified (ICD-10) Anxiety ?F41.9 - Anxiety disorder, unspecified (ICD-10) Pneumonia ?J18.9 - Pneumonia, unspecified organism (ICD-10) Asthma ?J45.909 - Unspecified asthma, uncomplicated (ICD-10) Migraine ?G43.909 - Migraine, unspecified, not intractable, without status migrainosus (ICD-10) Seizures ?R56.9 - Unspecified convulsions (ICD-10) Kidney stones ?N20.0 - Calculus of kidney (ICD-10) Heartburn ?R12 - Heartburn (ICD-10) Palpitations ?R00.2 - Palpitations (ICD-10) Irregular heart beat ?I49.9 - Cardiac arrhythmia, unspecified (ICD-10) Dyspareunia Dysmenorrhea ?N94.6 - Dysmenorrhea, unspecified (ICD-10) Menorrhagia ?N92.0 - Excessive and frequent menstruation with regular cycle (ICD-10) Pelvic pain ?R10.2 - Pelvic and perineal pain (ICD-10) Postoperative nausea and vomiting ?R11.2 - Nausea with vomiting, unspecified (ICD-10) ?Z98.890 - Other specified postprocedural states (ICD-10) Delayed recovery from anesthesia Surgical History (Updated 10/15/22 @ 09:30 by Traci Cadet NP) History of tonsillectomy and adenoidectomy ?Z90.89 - Acquired absence of other organs (ICD-10) History of hernia repair ?Z98.890 - Other specified postprocedural states (ICD-10) ?Z87.19 - Personal history of other diseases of the digestive system (ICD-10) History of endometrial ablation ?Z98.890 - Other specified postprocedural states (ICD-10) History of cholecystectomy (04/07/22) ?Z90.49 - Acquired absence of other specified parts of digestive tract (ICD- 10) History of tubal ligation ?Z98.51 - Tubal ligation status (ICD-10) Family History (Updated 10/15/22 @ 09:30 by Traci Cadet NP) Other Family history of COPD (chronic obstructive pulmonary disease) Family history of breast cancer Family history of cervical cancer Family history of coronary artery disease Family history of diabetes mellitus Family history of emphysema Family history of heart disease Family history of lung cancer Family history of myocardial infarction Family history of prostate cancer Family history of renal failure Family history of stroke Social History Within the past year, how often did you have a drink containing alcohol: monthly or less Smoking status: Heavy tobacco smoker What tobacco products do you use: cigarettes Packs per day: 3 Years smoked: 7 Smoking pack-years: 21.00 Non-prescribed substance use: denies use Highest level of school completed/degree received: high school graduate Exam Narrative Exam Narrative: Nurses notes and vital signs reviewed and patient is not hypoxic. afebrile General: Well-appearing and in no apparent distress. Skin: Warm, dry, no pallor noted. No rash. Head: Normocephalic, atraumatic. Neck: Supple, non-tender. No meningismus Eye: Pupils are equal, round and EOMI. No scleral icterus. Ears, Nose, Mouth, and Throat: TM are clear, no posterior oropharynx erythema or nasal mucosal hypertrophy, uvula is mid-line Oral mucosa is moist Cardiovascular: Regular Rate and Rhythm without murmur, gallop or rub. Respiratory: No accessory muscle use or respiratory distress. Lungs are clear to auscultation, no wheezing, rales or rhonchi Back: No midline thoracic or lumbar vertebral tenderness. No CVA tenderness Musculoskeletal: normal ROM, no sign of long bone fracture, no Upper or lower extremity edema/swelling GI: Abdomen is soft, non-distended. Normal bowel sounds. No tenderness to palpation. No rebound, guarding, or rigidity noted. Neurological: A&O x4. No cranial nerve dysfunction observed. No truncal ataxia. Moves all extremities. Sensation intact. Psychiatric: Cooperative and interactive. Normal mood and affect. Constitutional Vital Signs, click to edit/add: Last Vital Signs Temp 99.2 F 07/20/23 19:38 Pulse 76 07/20/23 20:30 Resp 24 H 07/20/23 19:38 BP 120/90 07/20/23 20:00 Pulse Ox 99 07/20/23 20:30 O2 Del Method Room Air 07/20/23 19:55 Course Vital Signs Vital signs: Vital Signs Temperature 99.2 F 07/20/23 19:38 Pulse Rate 105 H 07/20/23 19:38 Respiratory Rate 24 H 07/20/23 19:38 Blood Pressure 121/85 07/20/23 19:38 Pulse Oximetry 100 07/20/23 19:38 Temperature 99.2 F 07/20/23 19:38 Pulse Rate 76 07/20/23 20:30 Respiratory Rate 24 H 07/20/23 19:38 Blood Pressure 120/90 07/20/23 20:00 Pulse Oximetry 99 07/20/23 20:30 Oxygen Delivery Method Room Air 07/20/23 19:55 MDM - Seizure MDM Narrative Medical decision making narrative: Seizure precautions initiated. Peripheral IV established and blood drawn and sent for testing. The patient was sent for noncontrast CT scanning of the brain. All of her workup was unremarkable, including CT brain, which did not reveal ICH or tumor. I spoke with Dr Nielson at [facility] - that is where her neurologist, Dr Staton is located. Dr Nielson accepted the patient's transfer to their facility but they have no beds tonight - they hope to have bed availability tomorrow. 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 She felt that the patient would be ok to be admitted to [facility] until the bed opens at [facility]. I contacted the tele hospitalist to discuss admission to [facility] for neuro monitoring until the patient can be transferred. Dash Villasenor and I discussed the case - he agreed to the admission. Lab Data Attestation: I reviewed the patient's lab results. Labs: Lab Results 07/20/23 Range/Units 19:49 WBC 9.4 (4.0-11.0) 10^3/uL RBC 4.64 (4.20-5.40) 10^6/uL Hgb 13.8 (12.0-16.0) g/dL Hct 42.2 (36.0-48.0) % MCV 90.9 (81.0-99.0) fL MCH 29.7 (26.7-34.0) pg MCHC 32.7 (29.9-35.2) g/dL RDW 13.7 (11.0-15.0) % Plt Count 281 (150-450) 10^3/uL MPV 9.6 (9.5-13.5) fL Neut % (Auto) 57.7 (43.0-75.0) % Lymph % (Auto) 28.9 (20.5-60.0) % [place] % (Auto) 9.5 (1.7-12.0) % Eos % (Auto) 3.0 (0.9-7.0) % Baso % (Auto) 0.7 (0.2-2.0) % Neut # (Auto) 5.4 (1.4-6.5) 10^3/uL Lymph # (Auto) 2.7 (1.2-3.8) 10^3/uL [place] # (Auto) 0.9 H (0.3-0.8) 10^3/uL Eos # (Auto) 0.3 (0.0-0.7) 10^3/uL Baso # (Auto) 0.1 (0.0-0.1) 10^3/uL Abs Immat Gran (auto) 0.02 (0.00-0.03) 10^3/uL Imm/Tot Granulo (auto) 0.2 (0.0-0.5) % Sodium 142 (136-145) mmol/L Potassium 3.5 (3.5-5.1) mmol/L Chloride 105 (98-107) mmol/L Carbon Dioxide 26.9 (21.0-32.0) mmol/L Anion Gap 13.6 BUN 8.0 (7.0-18.0) mg/dL Creatinine 0.95 (0.55-1.02) mg/dL Est GFR ( Amer) >60 (>=60) Est GFR (Non-Af Amer) >60 (>=60) BUN/Creatinine Ratio 8.4 Glucose 70 L (74-106) mg/dL Calcium 8.6 (8.5-10.1) mg/dL Total Bilirubin 0.3 (0.2-1.0) mg/dL AST 17 (15-37) U/L ALT 44 (14-59) U/L Alkaline Phosphatase 62 (46-116) U/L Troponin I High Sens 7.6 (4.0-51.3) pg/mL Total Protein 6.8 (6.4-8.2) g/dL Albumin 3.7 (3.4-5.0) g/dL Globulin 3.1 g/dL Albumin/Globulin Ratio 1.2 Serum HCG, Qual Negative (NEGATIVE) Imaging Data CT scan - head: My impression: NAD Radiologist's impression: ITS Impressions Head CT 07/20/23 19:51 IMPRESSION: No acute intracranial process. Electronically authenticated by: BAN WOODY Date: 07/20/2023 20:58 Patient Name: ABRAHAN WOODS MRN: [facility]:[id number] date: 1990 Sex: F Assigned Patient Location: ER Current Patient Location: ED.MAIN Accession/Order Number: [id number] Exam Date: 07/20/2023 20:08 Report Date: 07/20/2023 20:58 At the request of: TYSON GIBBS Procedure: CT head/brain wo con EXAM: CT head/brain wo con HISTORY: seizure COMPARISON: 08/07/2009 TECHNIQUE: CT of the head without intravenous contrast. Dose reduction techniques were achieved by using automated exposure control and/or adjustment of mA and/or kV according to patient size and/or use of iterative reconstruction technique. . FINDINGS: The brain parenchyma density is unremarkable. There is no acute intracranial hemorrhage, extra axial fluid collection, midline shift, or mass effect. There is no evidence to suggest acute infarction. The ventricles, sulci, and cisterns are normal in size and configuration, without evidence of hydrocephalus or herniation. The partially visualized paranasal sinuses and mastoid air cells are well pneumatized and clear. There are no suspicious osseous lytic or sclerotic lesions. There are no acute fractures. The extracranial soft tissues are unremarkable. IMPRESSION: No acute intracranial process. Electronically authenticated by: BAN WOODY Date: 07/20/2023 20:58 ECG Data Attestation: I personally reviewed and interpreted this ECG as follows: Interpretation: EKG interpretation: Emergency Department physician interpretation. sinus tachycardia at 101bpm. Indeterminate axis, non specific T wave changes and no ST segment elevation or depression. Discharge Plan Discharge Chief Complaint: Head Injury Clinical Impression: Breakthrough seizure Patient Disposition: Admitted as Observation Time of Disposition Decision: 20:37
[2023-07-20] MEDS: OXcarbazepine 300 MG TABLET 450 MG PO (21:18)
[2023-07-26 14:09] LABS: Oxcarbazepine (Trileptal),S 3 ug/mL (10-35)
== END 2023-07-20 21:41 | disposition left against medical advice (07) ==
PROVIDERS: Emergency Provider Emergency Medicine; PCP Nurse Practitioner
DX: G40.89 Other seizures (principal); F31.9 Bipolar disorder, unspecified; F41.9 Anxiety disorder, unspecified; Z87.01 Personal history of pneumonia (recurrent); J45.909 Unspecified asthma, uncomplicated; Z87.442 Personal history of urinary calculi; Z53.29 Procedure and treatment not carried out because of patient's decision for other reasons; Z79.899 Other long term (current) drug therapy; Z86.14 Personal history of Methicillin resistant Staphylococcus aureus infection; Z85.828 Personal history of other malignant neoplasm of skin; Z90.89 Acquired absence of other organs; Z90.49 Acquired absence of other specified parts of digestive tract; Z98.890 Other specified postprocedural states; Z98.51 Tubal ligation status; F17.210 Nicotine dependence, cigarettes, uncomplicated
CPT/HCPCS: 36415; 70450; 80053; 80183; 80307; 84484; 84703; 85025; 93005; 96361; 96374; 99285

== ENCOUNTER 2023-07-22 11:06 | Outpatient (OUT) | payer OTHER, SELFPAY ==
--- NOTE | 2023-07-22 | XR_ITS ---
The [address] [address] Patient Name: ABRAHAN WOODS MRN: [id number] date: 1990 Sex: F Assigned Patient Location: Current Patient Location: Accession/Order Number: [id number] Exam Date: 07/22/2023 11:10 Report Date: 07/23/2023 07:05 At the request of: ERNIE APPIAH Procedure: XR foot RT min 3V PROCEDURE: XR foot RT min 3V HISTORY: RIGHT FOOT PAIN COMPARISON: XR foot right 07/01/2023 FINDINGS: BONES:No fracture, acute abnormality, or significant arthropathy. SOFT TISSUES:Suspect mild soft tissue thickening lateral to the 5th metatarsal. EFFUSION:None visible. OTHER: Negative. XR/XR foot RT min 3V IMPRESSION: 1. No acute or suspicious bone abnormality. 2. Questionable soft tissue thickening lateral to the 5th metatarsal. Electronically authenticated by: KIRK SHANNON Date: 07/23/2023 07:05
== END 2023-07-22 11:07 | disposition home or self-care (01) ==
LOC: EC 11:07
PROVIDERS: PCP Nurse Practitioner; Visit Provider Physician Assistant
DX: M79.671 Pain in right foot (principal)
CPT/HCPCS: 73630

== ENCOUNTER 2023-10-30 22:10 | Emergency (ER) | payer OTHER, SELFPAY ==
--- OUTSIDE RECORDS SUMMARY | 2023-10-30 22:19 | XMS_ITS | CCD ---
Author Organization [facility] Care Team Providers Care Wood Veneer Taper Name Role Phone Unavailable Primary Care Provider UnavailPeggy Santos Primary Care Provider Peggy Thrasher Primary Care Provider [phone] Unavailable Primary Care Provider Unavailbeatrice Thrasher APRN - FRUIT PITTER, Peggy Sheikh Primary Care Provider Peggy Thrasher CNP Primary Care Provider Traci Dennison CNP Primary Care Provider Juma COLLIER - FRUIT PITTER, Traci Primary Care Provide r Ed COLLIER - STEWARD/STEWARDESSSrinivasa Primary Care Provider Ed COLLIER - STEWARD/STEWARDESSSrinivasa Primary Care Provider Ed COLLIER - Srinivasa DORMAN Primary Care Provider PAY ., DR RIVERA Admitting Unavailable PAY ., DR RIVERA Attending Unavailable PAY ., DR RIVERA Consulting Unavailable REQUEST, DR NONE LISTED Primary Care Unavaila ble FELICIA .SUELLEN Consulting Unavailable LORRIE CESPEDES Consulting Unavailable VICK DEL REAL Attending Unavailable VICK DEL REAL Admitting Unavailable FELICIA .SUELLEN Consulting Unavailable REQUEST, NONE LISTED Primary Care Unavaila VICK Harmon Attending Unavailable MIRTHA, DR KIRK Pineda Consulting Unavailable REQUEST, NONE LISTED Primary Care Unavaila VICK Harmon Admitting Unavailable HAY ., DR MEHTA Consulting Unavailable REQUEST, NONE LISTED Primary Care Unavaila ble LASHONDA ., DR BUTLER Admitting Unavailable LASHONDA ., DR BUTLER Attending Unavailable LASHONDA ., DR BUTLER Consulting Unavailable REQUEST, DR ORTIZ LISTED Primary Care Unavaila ble LASHONDA ., DR BUTLER Admitting Unavailable LASHONDA ., DR BUTLER Attending Unavailable LASHONDA ., DR BUTLER Consulting Unavailable ZIEBER, DR KIRK Pineda Consulting Unavailable Ed FRUIT PITTER, Srinivasa Primary Care Provider [phone] ED, SRINIVASA L Primary Care Unavailable ED, SRINIVASA L Referring Unavailable ED, SRINIVASA L Referring Unavailable ED, SRINIVASA L Primary Care Unavailable SERENITY WILL Attending Unavailable ED, SRINIVASA L Primary Care Unavailable ED, SRINIVASA L Primary Care Unavailable DORKOSKIE, BRYANT D Referring Unavailable ED, SRINIVASA L Primary Care Unavailable ED, SRINIVASA L Primary Care Unavailable DORKOSKIE, BRYANT D Referring Unavailable DORKOSKIE, BRYANT D Referring Unavailable ED, SRINIVASA L Primary Care Unavailable [place], [facility] Primary Care Provider [phone] AMIRA Thrasher Primary Care Provider [phone] Valentin Gallego Attending Provider Valentin Gallego Admitting Unavailable Valentin Gallego Attending Unavailable Peggy Thrasher Primary Care Unavailable Edgar Reilly Admitting Unavailab le Edgar Reilly Attending Unavailab Peggy Sanders Primary Care Unavailable Amanda CATERING SERVER-FRUIT PITTER, Mirza Harvey Attending U navailable Aichholz CATERING SERVER-FRUIT PITTER, Jana Georgette Primary Care Unava ilable Amanda CATERING SERVER-FRUIT PITTER, Mirza Harvey Attending U navailable Aichholz CATERING SERVER-FRUIT PITTER, Jana Georgette Primary Care Unava ilable Aichholz CATERING SERVER-FRUIT PITTER, Jana Georgette Primary Care Unava ilable Parmjit Bae MD Attending Duc Thakur Attending Unavailab le Aichholz CATERING SERVER-FRUIT PITTER, Jana Georgette Primary Care Unava ilable Amanda CATERING SERVER-FRUIT PITTER, Mirza Harvey Attending U navailable Ed FRUIT PITTER, Srinivasa Dial Primary Care Unavailab le AICHHOLZ, JANA Attending Unavailable ESTELITA WINKLER Attending Unavailable AICHHOLZ, JANA Referring Unavailable AICHHOLZ, JANA Attending Unavailable AICHHOLZ, JANA Referring Unavailable SUELLEN BREWSTER Attending Unavailable VALENTIN GALLEGO Attending Unavailable ESTELITA WINKLER Attending Unavailable SHAKIRA RBOERTSON Attending Unavailab JANA Albert Referring Unavailable SHAKIRA ROBERTSON Attending Unavailab JANA Albert Attending Unavailable DEEPIKA, JANA Attending Unavailable DEEPIKA, JANA Referring Unavailable Allergies Allergy Classification Reported Allergen(s) Allergy Type Date of Onset Reaction(s) Facility Adhesive Tape (3 sources) Adhesive Tape Substance Allergy 6 [facility] Latex (3 sources) Latex Substance Allergy 2 [facility] (20 sources) Adhesive Tape Propensity to adverse reactions to drug 6 [place] (20 sources) Latex; Translations: [Latex] Propensity to adverse reactions to drug 2 [place] (20 sources) Eggs Or Egg-Derived Products Propensity to adverse reactions to drug 2 [place] (18 sources) tracy allergenic extract; Translations: [Tracy] Drug Allergy 2 Hives, Itching [facility] Rep[facility] (13 sources) egg extract; Translations: [Egg] Drug Allergy 2 [facility] (13 sources) Fish - dietary; Translations: [Fish] Allergy to substance 2 [facility] (1 source) Latex Drug allergy (disorder) 3 [facility] (1 source) piperazine Drug Allergy [facility] Rep[facility] (9 sources) Morphine Derivatives; Translations: [Morphine Derivatives] Drug allergy 3 [facility] (3 sources) Latex Allergy to substance 2 Swelling [facility] Healthcare Work Phone: (4 sources) Morphine; Translations: [morphine] Drug Allergy 3 [facility] (3 sources) Wound Dressing Adhesive Drug Intolerance 6 [facility] Healthcare (1 source) Egg; Translations: [Eggs] Propensity to adverse reactions to food (disorder) [facility] Repository Medications Current Medications Medication Drug Class(es) [...] tablet 1 tablet Start: 05-07-2018 End: 03-11-2020 Rison 5-325 MG OR TABS 05/07 - 03/11/2020 Provider: Conversion Provider Start: 05-07-2018 End: 03-11-2020 [facility]CO MISC 05/07/2018 - 02/12 Provider: Start: 05-07-2018 End: 05-07-2018 [facility] 05/07/2018 - 04/13 Provider: aluminum hydroxide 80 mg/ml / magnesium hydroxide 80 mg/ml / simethicone 8 mg/ml oral suspension (14 sources) Start: 02-05-2021 take 15 mL by mouth twice daily as needed for pain aluminum & magnesium hydroxide-simethicone (MAALOX MAX) 400-400-40 MG/5ML SUSP Take 15 mLs by mouth 2 times daily as needed (abdominal pain) 100 mL 0 02/05/2021 Active amitriptyline hydrochloride 50 mg oral tablet (20 sources) Tricyclic Antidepressant Start: 05-12-2023 End: 06-11-2023 take 1 tablet by mouth at bedtime amitriptyline (Elavil) 50 MG tablet Indications: Bipolar 1 disorder (CMS/HCC) , Anxiety and depression (CMS/HCC) Take 1 tablet (50 mg) by mouth at bedtime 30 tablet 1 05/12/2023 06/11/2023 Active Start: 12-04-2021 End: 11-30-2022 Amitriptyline HCl 50 MG Oral Tablet 01/20/2022 - 03/09/2022 Provider: ARIPiprazole 10 mg oral tablet (20 sources) [...] .5 MCG/ACT Inhalation Aerosol 02/05/2023 Provider: Srinivasa Jhaveri CNP Start: 11-30-2022 End: 02-05-2023 Symbicort 80-4.5 MCG/ACT Inh alation Aerosol 11/30/2022 - 02/05/2023 Provider: Srinivasa Jhaveri CNP busPIRone hydrochloride 10 mg oral tablet (20 sources) Start: 05-12-2023 End: 06-11-2023 take 1 tablet by mouth in the morning busPIRone (Buspar) 10 MG tablet Indications: Anxiety and depression (CMS/HCC) Take 1 tablet (10 mg) by mouth in the morning and 1 tablet (10 mg) before bedtime. 60 tablet 1 05/12/2023 06/11/2023 Active Start: 06-01-2022 End: 11-30-2022 busPIRone HCl 15 MG Oral Tab let 06/29/2022 - 11/30/2022 Provider: Start: 02-17-2022 End: 06-01-2022 busPIRone HCl 10 MG Oral Tab let 03/09/2022 - 03/19/2022 Provider: Start: 02-04-2022 End: 02-17-2022 busPIRone HCl 5 MG Oral Tabl et 02/04/2022 - 02/17/2022 Provider: cephalexin 500 mg oral capsule (2 sources) Cephalosporin Antibacterial Start: 12-31-2019 End: 01-07-2020 take 1 capsule by mouth four times daily cephALEXin (KEFLEX) 500 MG capsule Take 1 capsule by mouth 4 times daily for 7 days 28 capsule 0 12/31/2019 01/07/2020 Active cetirizine hydrochloride 10 mg oral tablet (20 sources) Histamine-1 Receptor Antagonist Start: 05-12-2023 End: 06-11-2023 take 1 tablet by mouth in the morning cetirizine (ZyrTEC) 10 MG tablet Indications: Environmental and seasonal allergies Take 1 tablet (10 mg) by mouth in the morning. 30 tablet 2 05/12/2023 06/11/2023 Active Start: 12-31-2022 ZyrTEC Allergy 10 MG Oral Tablet 12/31/2022 Provider: Srinivasa Jhaveri CNP Start: 11-10-2016 End: 03-11-2020 ZYRTEC 10 mg MISC 11/10/2016 - 03/11/2020 Provider: Start: 11-10-2016 End: 11-10-2016 ZYRTEC 10 mg MISC 11/10/2016 - 11/10/2016 Provider: cholecalciferol 0.025 mg oral tablet (14 sources) Vitamin D Start: 03-26-2022 take 1 tablet by mouth once daily vitamin D3 (CHOLECALCIFEROL) 25 MCG (1000 UT) TABS tablet TAKE ONE TABLET BY MOUTH ONCE DAILY 0 03/26/2022 Active cholecalciferol (D3-5) 5,000 Units tablet Take 1,000 Units by mouth in the morning. 0 Active Cholecalciferol (VITAMIN D3) 125 MCG (5000 UT) TABS Take by mouth 0 Active sugar-free cholestyramine resin 4000 mg powder for oral suspension (1 source) Bile Acid Sequestrant Start: 01-20-2022 cholestyramine light 4 g packet USE one PACKET BY MOUTH TWICE DAILY. mix in 4-6 ounces of water OR noncarbonated beverage of your choice. 0 01/20/2022 Active Cranberry preparation (1 source) Non-Standardized Food Allergenic Extract, Non-Standardized Plant Allergenic Extract AZO-CRANBERRY PO Andres e by mouth 0 Active cyclobenzaprine hydrochloride 10 mg oral tablet (20 sources) Muscle Relaxant Start: 05-12-2023 End: 05-27-2023 cyclobenzaprine (Flexeril) 10 MG tablet Indications: Chronic right shoulder pain Take 1 tablet (10 mg) by mouth as needed at bedtime for muscle spasms for up to 15 days 15 tablet 0 05/12/2023 05/27/2023 Active Start: 12-25-2019 End: 12-11-2021 Cyclobenzaprine HCl 10 MG Or al Tablet 02/14/2021 - 12/11/2021 Provider: Peggy Thrasher CNP dicyclomine hydrochloride 10 mg oral capsule (20 sources) Anticholinergic Start: 07-06-2022 dicyclomine (B entyl) 10 MG capsule Take 20 mg by mouth in the morning and 20 mg at noon and 20 mg in the evening and 20 mg before bedtime. 0 07/06/2022 Active Start: 06-06-2021 dicyclomine (B ENTYL) injection 20 [...] 10 MG MISC 05/07/2018 - 05/07/2018 Provider: fluocinonide 0.0005 mg/mg topical gel (12 sources) Corticosteroid Start: 05-26-2022 fluocinonide ( Lidex) 0.05 % gel apply as directed TO affected AREA ONCE a DAY with phonophoresis during OT 0 05/26/2022 Active Start: 05-26-2022 End: 11-30-2022 Fluocinonide 0.05% External Gel 05/26/2022 - 11/30/2022 Provider: fluticasone propionate 0.05 mg/actuat metered dose nasal spray (20 sources) Corticosteroid Start: 05-12-2023 End: 06-11-2023 take 1 spray(s) nasal route in the morning fluticasone (Flonase) 50 MCG/ACT nasal spray Indications: Environmental and seasonal allergies Administer 1 spray into each nostril in the morning. 16 g 3 05/12/2023 06/11/2023 Active Start: 07-16-2021 End: 11-30-2022 Fluticasone Propionate 50 MC G/ACT Nasal Suspension 11/30/2022 Provider: Srinivasa Jhaveri CNP take 1 spray(s) nasa l route once daily fluticasone (FLONASE) 50 MCG/ACT nasal spray 1 spray by Each Nostril route daily 0 Active hydrocortisone 10 mg/ml / neomycin 3.5 mg/ml / polymyxin b [id number] unt/ml otic suspension (1 source) Aminoglycoside Antibacterial, Polymyxin-class Antibacterial, Corticosteroid Start: 10-09-2020 hkpomutd-gqupbgjyh-rwsmupjul isone (CORTISPORIN) otic suspension 3 drop Start: [...] MG OR TABS 06/11 - 03/11/2020 Provider: omeprazole 40 mg delayed release oral capsule (20 sources) Proton Pump Inhibitor Start: 03-12-2022 take 1 capsule by mouth in the morning omeprazole (PriLOSEC) [address] capsule Take 40 mg by mouth in the morning and 40 mg before bedtime. 0 03/12/2022 Active Start: 06-06-2021 End: 02-12-2022 Omeprazole 40 MG Oral Capsul e Delayed Release 12/04/2021 - 02/12/2022 Provider: Start: 08-07-2016 End: 03-11-2020 Omeprazole 40 MG OR CPDR - 03/11/2020 Provider: ondansetron 4 mg disintegrating [...] 09-08-2016 End: 03-11-2020 ZOFRAN ODT 4 MG [facility] 017 - 03/11/2020 Provider: Start: 09-08-2016 End: 09-08-2016 ZOFRAN ODT 4 MG [facility] 017 - 09/08/2016 Provider: OXcarbazepine 300 mg oral tablet (20 sources) Anti-epileptic Agent Start: 05-12-2023 End: 06-11-2023 take 1 tablet by mouth in the morning OXcarbazepine (Trileptal) 300 MG tablet Indications: Seizures (CMS/HCC) , Bipolar 1 disorder (CMS/HCC) Take 1 tablet (300 mg) by mouth in the morning and 1 tablet (300 mg) before bedtime. 60 tablet 1 05/12/2023 06/11/2023 Active Start: 03-08-2023 Trileptal 150 MG Oral Tablet 03/08/2023 Provider: Srinivasa Jhaveri CNP Start: 04-03-2021 End: 11-30-2022 OXcarbazepine 300 MG Oral Ta blet 07/17/2021 - 12/11/2021 Provider: Traci Dennison CNP pantoprazole 40 mg delayed release oral tablet (8 sources) Proton Pump Inhibitor Start: 12-31-2022 Pantoprazole Sodium 40 MG Oral Tablet Delayed Release 12/31/2022 Provider: Phytosterol Xicjxz-IWR-PWJ (VAYAROL PO) (1 source) take 4.5 mg by mouth once daily Phytosterol Bfpkwh-WRS-KJT (VAYAROL PO) Take 4.5 mg by mouth nightly 0 Active PHYTOSTEROL CPHQKT-UOR-JKQ PO (3 sources) take 4.5 mg by mouth at bedtime PHYTOSTEROL MBJAML-OGE-LCF PO Take 4.5 mg by mouth at bedtime 0 Active prazosin 1 mg oral capsule (20 sources) alpha-Adrenergic Michelle Start: 06-01-2022 End: 11-30-2022 take 1 capsule by mouth at bedtime prazosin (Minipress) 1 MG capsule TAKE 1 CAPSULE BY MOUTH AT BEDTIME FOR PTSD type nightmares 0 06/29/2022 Active Probiotic Product (PROBIOTIC DAILY PO) (1 [...] 25 MG Oral Tablet 01/28/2023 Provider: Srinivasa Jhaveri CNP tretinoin 0.5 mg/ml topical cream (2 sources) Retinoid Start: 05-24-2023 tretinoin (Ret in-A) 0.05 % cream 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 Avoid the face, armpits, and groin 240 g 05/24/2023 06/23/2023 Active Vitamin D 25 MCG (1000 UT) Oral Tablet (20 sources) Start: 02-23-2023 End: 08-22-2023 Vitamin D 25 MCG (1000 UT) Oral Tablet 02/23/2023 - 08/22/2023 Provider: Srinivasa Jhaveri CNP Start: 02-19-2022 End: 02-23-2023 Vitamin D 25 MCG (1000 UT) O ral Tablet 02/19/2022 - 02/23/2023 Provider: Srinivasa Jhaveri CNP Start: 02-19-2022 End: 08-18-2022 Vitamin D 25 MCG (1000 UT) O ral Tablet 02/19/2022 - 08/18/2022 Provider: Srinivasa Jhaveri CNP Start: 07-28-2021 End: 02-19-2022 Vitamin D [...] System Stimulant, Methylxanthine Start: 02-14-2021 End: 01-28-2023 Ynnbxnkgvt-MCBC-Sltylyno 50-325-40 MG Oral Tablet 02/14/2021 - 01/28/2023 Provider: Peggy Thrasher CNP Start: 08-15-2017 End: 12-24-2019 take 1 tablet by mouth every six hours as needed for headache jncjgnadeb-fmfixagwbcuxn-nkfesqln (ESGIC ) 50-325-40 MG per tablet Take [...] mouth twice daily as needed for headache jymtxyqxsl-oagvswehcdovi-noveohww (CECY CET, ESGIC) 50-325-40 MG per tablet Take 1 tablet by mouth 2 times daily as needed for Headaches 0 Active acetaminophen 325 mg / butalbital 50 mg / caffeine 40 mg / codeine phosphate 30 mg oral capsule (20 sources) Opioid Agonist, Barbiturate, Central Nervous System Stimulant, Methylxanthine Start: 02-14-2021 End: 02-14-2021 Hcmptxxuns-RLDK-Bvot-Cod 47-491-25-30 MG Oral Capsule 02/14/2021 - 02/14/2021 Provider: Peggy Thrasher FRUIT PITTER acetaminophen 325 mg / oxyCODONE hydrochloride 5 [...] REUSABLE BAN MISC 07/04/2015 - 03/11/2020 Provider: [id number] 200 actuat albuterol 0.09 mg/actuat metered dose inhaler (20 sources) beta2-Adrenergic Agonist Start: 07-17-2021 End: 11-30-2022 Ventolin HFA 108 (90 Base) MCG/ACT Inhalation Aerosol, solution 02/11/2022 - 11/30/2022 Provider: Srinivasa Jhaveri CNP Start: 12-25-2019 End: 02-14-2021 Albuterol Sulfate [...] End: 03-11-2020 ALBUTEROL SULFATE 1.25 mg/3 mL MISC 07/04/2015 - 03/11/2020 Provider: Start: 07-04-2015 End: 07-04-2015 ALBUTEROL SULFATE 1.25 mg/3 mL MISC 07/04/2015 - 07/04/2015 Provider: take 2 puff(s) by in halation every four hours albuterol HFA 90 mcg/act inhaler Inhale 2 puffs every 4 (four) hours if needed. 0 Active aluminum & magnesium hydroxide-simethicone (MAALOX) 30 mL, lidocaine viscous hcl (XYLOCAINE) 5 mL (GI COCKTAIL) (2 sources) Start: 06-06-2021 End: 06-06-2021 aluminum & magnesium hydroxide-simethicone (MAALOX) 30 mL, lidocaine viscous hcl (XYLOCAINE) 5 mL (GI COCKTAIL) Start: 02-05-2021 End: 02-05-2021 aluminum & magnesium hydroxi de-simethicone (MAALOX) 30 mL, lidocaine viscous hcl (XYLOCAINE) 5 mL (GI COCKTAIL) amoxicillin 500 mg oral tablet (20 sources) Penicillin-class Antibacterial Start: 02-06-2022 End: 11-30-2022 Amoxicillin 500 MG Oral Tablet 02/06/2022 - 11/30/2022 Provider: Srinivasa Jhaveri CNP Start: 10-08-2020 End: 10-08-2020 amoxicillin (AMOXIL) capsule 500 mg Start: 10-08-2020 End: 10-15-2020 take 1 capsule by mouth three times daily amoxicillin (AMOXIL) 500 MG capsule Take 1 capsule by mouth 3 times daily for 7 days 21 capsule 0 10/08/2020 10/15/2020 Active Start: 08-21-2015 End: 03-11-2020 Amoxicillin 500 MG Oral Tabl et 01/03/2020 - 01/08/2020 Provider: Wy[address] Street DDJj amoxicillin 875 mg / clavulanate 125 mg oral tablet (20 sources) Penicillin-class Antibacterial Start: 02-05-2023 End: 03-08-2023 Amoxicillin-Pot Clavulanate 875-125 MG Oral Tablet 02/05/2023 - 03/08/2023 Provider: Srinivasa Jhaveri CNP Start: 01-26-2020 End: 06-03-2020 Amoxicillin-Pot Clavulanate 500-125 MG Oral Tablet 01/26/2020 - 06/03/2020 Provider: Traci Dennison FRUIT PITTER End: 06-06-2021 take 1 tablet by mouth [...] End: 03-11-2020 BROMFED DM 2-30-10 MG/5 ML [facility] 09/08/2016 - 03/11/2020 Provider: Start: 09-08-2016 End: 09-08-2016 BROMFED DM 2-30-10 MG/5 ML [facility] [place] 09/08/2016 - 09/08/2016 Provider: Start: 01-30-2016 End: 03-11-2020 BROMFED DM 2-30-10 MG/5 ML [facility] [place] 01/30/2016 - 03/11/2020 Provider: Start: 01-30-2016 End: 01-30-2016 BROMFED DM 2-30-10 MG/5 ML [facility] 01/30/2016 - 01/30/2016 Provider: Start: 08-01-2015 End: 03-11-2020 BROMFED DM 2-30-10 MG/5 ML [facility] 08/01/2015 - 03/11/2020 Provider: Start: 08-01-2015 End: 08-01-2015 BROMFED DM 2-30-10 MG/5 ML [facility] [place] 08/01/2015 - 08/01/2015 Provider: Camphor / Eucalyptus oil / Menthol (20 sources) Start: 11-10-2016 End: 03-11-2020 VICKS VAPORUB 4.8-1.2-2.6% M [facility] 11/10/2016 - 03/11/2020 Provider: Start: 11-10-2016 End: 11-10-2016 VICKS VAPORUB 4.8-1.2-2.6% M [facility] 11/10/2016 - 11/10/2016 Provider: cariprazine 3 mg [...] TABS 05/07/2018 - 03/11/2020 Provider: Conversion Provider clindamycin 150 mg oral capsule (20 [...] by mouth 2 times daily 0 Active DEPO-PROVERA 150 MG/ML MISC (7 sources) Start: 02-13-2016 End: 02-13-2016 DEPO-PROVERA 150 MG/ML MISC 02/13/2016 - 02/13/2016 Provider: DEPO-PROVERA 150 MG/ML MISC (20 sources) Start: 02-13-2016 End: 03-11-2020 DEPO-PROVERA 150 MG/ML MISC 02/13/2016 - 03/11/2020 Provider: dexamethasone 1 mg/ml / neomycin 3.5 mg/ml / polymyxin b [id number] unt/ml ophthalmic suspension (10 sources) Aminoglycoside Antibacterial, Polymyxin-class Antibacterial, Corticosteroid Start: 02-11-2022 End: 11-30-2022 Uvarrvys-Lwivjnpfm-M exameth 0.1% Ophthalmic Suspension 02/11/2022 - 11/30/2022 Provider: Start: 02-11-2022 take 1 drop(s) into the eye(s) every four hours lykmktod-atnhcyuai-zbgapppn (MAXITROL) 3.5-92349-0.1 ophthalmic suspension instill ONE drop into affected eye(s) every FOUR hours FOR SEVEN DAYS 0 02/11/2022 Active doxycycline hyclate 100 mg oral capsule (8 sources) Tetracycline-class Drug Start: 12-31-2022 End: 02-05-2023 Doxycycline Hyclate 100 MG Oral Capsule 12/31/2022 - 02/05/2023 Provider: Srinivasa Jhaveri CNP famotidine 40 mg oral tablet (20 [...] Oral Tablet 02/21/2023 - 03/08/2023 Provider: Srinivasa Jhaveri FRUIT PITTER Start: 11-09-2022 End: 12-31-2022 Fluconazole 150 MG Oral Tabl et 11/09/2022 - 12/31/2022 Provider: Start: 01-08-2020 End: 01-26-2020 Diflucan 150 MG Oral Tablet 01/08/2020 - 01/26/2020 Provider: Peggy Thrasher CNP hyoscyamine sulfate 0.125 mg oral tablet (12 [...] Tromethamine 60 MG/2ML IM SOLN 01/28/2023 Srinivasa Jhaveri FRUIT PITTER Start: 07-03-2021 End: 07-03-2021 ketorolac (TORADOL) injectio [...] Oral Tablet 11/30/2022 - 12/31/2022 Provider: Srinivasa Jhaveri CNP Start: 07-04-2015 End: 03-11-2020 Claritin 10 MG [...] Oral Capsule 12/11/2021 - 01/22/2022 Provider: Srinivasa Jhaveri CNP OLANZapine 10 mg oral tablet (20 sources) Atypical Antipsychotic Start: 04-03-2021 End: 03-27-2022 OLANZapine 10 MG Oral Tablet 07/17/2021 - 12/11/2021 Provider: Traci Dennison CNP End: 08-11-2021 OLANZAPINE PO Take by mouth 0 08/11/2021 Discontinued (LIST CLEANUP) oxymetazoline hydrochloride 0.5 mg/ml nasal spray (1 source) Start: 12-30-2018 End: 12-30-2018 oxymetazoline (AFRIN) 0.05 % nasal spray 1 spray PENICILLIN V POTASSIUM MISC (7 sources) Start: 05-07-2018 End: 05-07-2018 PENICILLIN V POTASSIUM MISC 05/07/2018 - 05/07/2018 Provider: PENICILLIN V POTASSIUM MISC (20 sources) Start: 05-07-2018 End: 03-11-2020 PENICILLIN V POTASSIUM MISC 05/07/2018 - 03/11/2020 Provider: phenazopyridine hydrochlorid e 200 mg oral tablet (12 sources) Start: 12-11-2021 End: 01-22-2022 Pyridium 200 MG Oral Tablet 12/11/2021 - 01/22/2022 Provider: Srinivasa Jhaveri CNP predniSONE 20 mg oral tablet (20 sources) Start: 02-05-2023 End: 02-19-2023 predniSONE 20 MG Oral Tablet 02/05/2023 - 02/19/2023 Provider: Srinivasa Jhaveri CNP Start: 08-01-2015 End: 03-11-2020 predniSONE 20 MG [...] Oral Tablet 12/18/2021 - 01/22/2022 Provider: Srinivasa Jhaveri CNP ubrogepant 50 mg oral tablet (8 sources) Start: 01-05-2023 End: 01-28-2023 Ubrelvy 50 MG Oral Tablet 01/05/2023 - 01/28/2023 Provider: Srinivasa Jhaveri CNP vancomycin 125 mg oral capsule (10 [...] [Umbilical hernia without obstruction or gangrene] Onset: 3 Episodic Anxiety disorders (20 sources) Generalized anxiety disorder; Translations: [Anxiety disorder] Onset: 0 Chronic Asthma (20 sources) Uncomplicated mild persistent asthma; Translations: [Mild persistent asthma, uncomplicated] Onset: 3 11-30-2022 Chronic Blindness and vision defects (3 sources) Visual impairment; Translations: [Unspecified visual loss] Onset: 4 04-19-2023 Chronic Calculus of urinary tract (3 sources) Calculus of kidney; Translations: [Calculus of kidney] Onset: 4 Episodic Cardiac dysrhythmias (4 sources) Palpitations; Translations: [Palpitations] Onset: 4 Episodic Diverticulosis and diverticulitis (20 sources) Diverticular disease; Translations: [Diverticulosis of large intestine without perforation or abscess without bleeding] Onset: 2 Chronic Epilepsy; convulsions (20 sources) Epilepsy; Translations: [Epilepsy, unspecified, not intractable, without status epilepticus] Onset: 1 Chronic Epilepsy; convulsions (4 sources) Seizure; Translations: [Unspecified convulsions] Onset: 4 04-19-2023 Episodic Esophageal disorders (3 sources) Gastroesophageal reflux disease; Translations: [Gastro-esophageal reflux disease without esophagitis] Onset: 4 04-19-2023 Chronic Fluid and electrolyte disorders (1 source) Hypokalemia; Translations: [Hypokalemia] Onset: 3 Episodic Gastritis and duodenitis (20 sources) Chronic gastritis; Translations: [Unspecified chronic gastritis without bleeding] Onset: 2 Chronic Genitourinary symptoms and ill-defined conditions (6 sources) Dysuria; Translations: [Dysuria] Onset: 2 01-22-2022 Episodic Headache; including migraine (3 sources) Frequent headache; Translations: [Frequent headaches] Onset: 4 04-19-2023 Episodic Immunizations and screening for infectious disease (20 sources) Contact with and (suspected) exposure to other viral communicable diseases; Translations: [Suspected disease caused by 2019-nCoV] Onset: 1 Episodic Inflammatory diseases of female pelvic organs (1 source) Hydrosalpinx; Translations: [Hydrosalpinx] Chronic Inflammatory diseases of female pelvic organs (2 sources) Acute vaginitis; Translations: [Acute vaginitis] Onset: 3 Episodic Intestinal infection (1 source) Viral gastroenteritis; Translations: [Viral gastroenteritis] Episodic Mood disorders (20 sources) Mixed bipolar affective disorder, moderate; Translations: [Mixed bipolar I disorder] Onset: 0 Resolved: 2 Chronic Noninfectious gastroenteritis (1 source) Gastroenteritis; Translations: [Noninfective gastroenteritis and colitis, unspecified] Episodic Nonspecific chest pain (2 sources) Atypical chest pain; Translations: [Chest pain at rest] Episodic Nutritional deficiencies (5 sources) Vitamin D deficiency; Translations: [Unspecified vitamin D deficiency] Onset: 2 Chronic Other aftercare (1 source) 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; Translations: [OTH RESIDENTIAL CURRENT DRUG THERAPY] Onset: 3 Episodic Other congenital anomalies (5 sources) Follicular keratosis; Translations: [Other specified congenital malformations of skin] Onset: 4 05-12-2023 Chronic Other ear and sense organ disorders (1 source) Infective otitis externa of left ear; Translations: [Other infective otitis externa, left ear] Episodic Other female genital disorders (3 sources) Pain in female genitalia on intercourse; Translations: [Unspecified dyspareunia] Onset: 3 10-01-2022 Chronic Other female genital disorders (1 source) Other specified noninflammatory disorders of cervix uteri; Translations: [OTH SPEC NONINFLAMM D/O CERV UTERI] Onset: 3 Episodic Other gastrointestinal disorders (2 sources) Diarrhea; Translations: [Diarrhea, unspecified] Episodic Other gastrointestinal disorders (3 sources) Constipation alternates with diarrhea; Translations: [Other specified symptoms and signs involving the digestive system and abdomen] Onset: 4 04-19-2023 Episodic Other injuries and conditions due to external causes (1 source) Injury of right wrist; Translations: [Unspecified injury of right wrist, hand and finger(s), initial encounter] Episodic Other injuries and conditions due to external causes (1 source) Injury of right shoulder; Translations: [Unspecified injury of right shoulder and upper arm, initial encounter] Episodic Other liver diseases (4 sources) Fatty (change of) liver, not elsewhere classified; Translations: [Other chronic nonalcoholic liver disease] Onset: 3 05-12-2023 Chronic Other lower respiratory disease (3 sources) Dyspnea; Translations: [Shortness of breath] Onset: 4 04-19-2023 Episodic Other non-traumatic joint disorders (3 sources) Joint pain; Translations: [Pain in unspecified joint] Onset: 4 04-19-2023 Episodic Other non-traumatic joint disorders (3 sources) Chronic pain of right upper limb; Translations: [Pain in right shoulder] Onset: 4 05-12-2023 Episodic Other nutritional; endocrine; and metabolic disorders (14 sources) Overweight; Translations: [Overweight] Onset: 0 Chronic Other nutritional; endocrine; and metabolic disorders (20 sources) Finding of body mass index; Translations: [Body mass index (observable entity)] Onset: 2 Chronic Other nutritional; endocrine; and metabolic disorders (3 sources) Body mass index 30+ - obesity; Translations: [Body mass index (BMI) 34.0-34.9, adult] Onset: 4 05-12-2023 Chronic Other skin disorders (1 source) Folliculitis; Translations: [Follicular disorder, unspecified] Episodic Other upper respiratory disease (6 sources) Allergic rhinitis; Translations: [Allergic rhinitis, cause unspecified] Onset: 2 Chronic Other upper respiratory disease (3 sources) Allergic disposition; Translations: [Other allergic rhinitis] Onset: 4 05-12-2023 Chronic Otitis media and related conditions (1 source) Acute non-suppurative otitis media - serous; Translations: [Acute serous otitis media, unspecified ear] Episodic Residual codes; unclassified (1 source) Noncompliance with treatment; Translations: [Noncompliance] Episodic Residual codes; unclassified (1 source) Acquired absence of other specified parts of digestive tract; Translations: [ACQ ABSENCE OTH PART DIGESTV TRACT] Onset: 3 Episodic Schizophrenia and other psychotic disorders (20 sources) Paranoid schizophrenia; Translations: [Paranoid type schizophrenia, unspecified] Onset: 1 Chronic Skin and subcutaneous tissue infections (1 source) Cellulitis of right foot; Translations: [Cellulitis of right foot] Sprains and strains (1 source) Low back strain; Translations: [Strain of lumbar region, initial encounter] Episodic Substance-related disorders (20 sources) Smoker; Translations: [Nicotine dependence, unspecified, uncomplicated] Onset: 6 11-27-2015 Chronic Substance-related disorders (1 source) Marijuana user; Translations: [Marijuana use] Syncope (3 sources) Syncope; Translations: [Syncope and collapse] Onset: 4 04-19-2023 Episodic Thyroid disorders (5 sources) Hypothyroidism; Translations: [Other specified hypothyroidism] Onset: 2 Chronic Past or Other Problems Problem Classification Problem Date Documented Da te Episodic/Chronic Abdominal pain (20 sources) Left lower quadrant pain; Translations: [Abdominal pain] Onset: 12-14-2019 12-14-2019 Episodic Bacterial infection; unspecified site (20 sources) Personal history of Methicillin resistant Staphylococcus aureus infection; Translations: [History of methicillin resistant Staphylococcus aureus infection] Onset: 11-27-2015 11-27-2015 Episodic Disorders of teeth and jaw (3 sources) Infection of tooth; Translations: [Infection of Tooth] Onset: 01-26-2020 Episodic Fever of unknown origin (16 sources) Fever symptoms; Translations: [Fever, unspecified] Onset: 01-01-2021 Episodic Hemorrhoids (17 sources) Hemorrhoids; Translations: [Hemorrhoids] Onset: 02-10-2022 02-10-2022 Episodic Menstrual disorders (10 sources) Excessive and frequent menstruation with irregular cycle; Translations: [Dysmenorrhea] Onset: 08-05-2022 Resolved: 05-12-2023 Chronic Mood disorders (2 sources) Bipolar I disorder, most recent episode depression; Translations: [Bipolar I Disorder, Most Recent Episode, Depressed] Onset: 06-03-2020 Nausea and vomiting (5 sources) Nausea and vomiting; Translations: [Nausea with vomiting, unspecified] Onset: 01-21-2022 Episodic Nutritional deficiencies (5 sources) Vitamin B12 deficiency (non anemic); Translations: [Other B-complex deficiencies] Onset: 07-17-2021 Episodic Other and ill-defined heart disease (3 sources) Heart disease; Translations: [Heart disease, unspecified] Onset: 04-19-2023 Resolved: 05-12-2023 05-12-2023 Chronic Other complications of (20 sources) Complication occurring [...] AND PARASITIC DZ] Onset: 01-21-2022 Episodic Other liver diseases (3 sources) Liver problem; Translations: [Liver disease, unspecified] Onset: 04-19-2023 Resolved: 05-12-2023 05-12-2023 Chronic Other lower respiratory disease (1 source) Chest pain on breathing; Translations: [Chest pain on breathing] Episodic Other lower respiratory disease (16 sources) Cough; Translations: [Cough] Onset: 01-01-2021 Episodic Other nutritional; endocrine; and metabolic disorders [...] (event); Translations: [Exposure To Covid-19] Onset: 01-01-2021 Urinary tract infections (20 sources) Urinary tract infectious disease; Translations: [Urinary tract infection, site not specified] Onset: 04-03-2021 Episodic Results Test Name Value Interpretation Reference Range Facility Gastroenterology Office/Clin ic Noteon 08-03-2023 Gastroenterology Office/Clinic Note Chief Complaint Patient states her AR is controlled with medication. States been having diarrhea the last three days some BRRB due to hemmrhoids History of Present Illness Patient Is a 33-year-old female who presents to GI clinic today for follow-up. Patient states acid reflux has been pretty controlled. States recently ran out of pantoprazole so has not been taking. Has had occasional reflux. No epigastric pain. No nausea no vomiting. Will go back on pantoprazole 1 time daily. Patient continues to note pain at umbilical hernia. Would like referral to [facility]. Patient notes over the last several days been having more frequent diarrhea. States normally going 3-4 times daily, notes going upwards of 5. Does note some irritation from hemorrhoids. States has itching and burning. OV 12/30/22 Patient had laparoscopic cholecystectomy April 02. Notes [...] these as stool caliber 4-5 on the [place]. Denies any current acid reflux or heartburn. [...] were obtained to rule out celiac disease. (more content not included)... Normal [facility] Ayush 07-13-2023 L Specimen: [id number] Received: 07/14/23 Status: LINDSEY Virk Num: [id number] Spec Type: Surgical Subm Dr: Valentin Gallego Tissues: A Skin-Other than Cyst, tag, debridement or plastic repair (LT LABIA) Procedures: HE, Gross/Micro L4 Age/ Patient Sex Location Account Attending Physician Abrahan Woods 33/F LABELL [id number] Valentin Gallego SPEC NUM: [id number] RECD: 07/14/23 STATUS: LINDSEY VIRK NUM: [id number] ANGELA: 07/13/23- SUBM DR: Valentin Gallego ENTERED: 07/14/23 [facility] DR: Ayala Jose SPEC TYPE: Surgical DEPT: OLIVIA MARQUIS ORDERED: HE, Gross/Micro L4 ORDERED: HE, Gross/Micro L4 Pathological Diagnosis Labial lesion, shave biopsy: -Consistent with warty dyskeratoma, slightly transected at the base of biopsy -Continuous adequate patient clinical surveillance follow-up is otherwise also suggested after this biopsy procedure Clinical Information Skin TAG, Labial lesion Gross Description Received in formalin with patient name and date of , labeled as left labial lesion, is a nodular mucosal piece with slightly roughened surface, measuring about 7 x 5 x 2 mm., Totally submitted in cassette A1 in 5 sections. Microscopic Description Sections showing histo morphological changes consistent with warty dyskeratoma, displaying verrucous hyperkeratosis of the epidermal surface, and patchy papillomatous dyskeratotic squamous proliferation at the base of the epidermis, and the base of few small invaginated squamous inclusions as well. There are some noted degenerative atypia of the mildly egressed and degenerated keratinocytes within keratin plug/crust. There is no obvious, significant, or any high-grade atypia of the dyskeratotic squamous portion in the dermis, which are otherwise also slightly transected at the base of biopsy of note Specimen: [id number] Received: 07/14/23 Status: LINDSEY Virk Num: [id number] Spec Type: Surgical Subm Dr: Valentin Gallego Tissues: A Skin-Other than Cyst, tag, debridement or plastic repair (LT LABIA) Procedures: NIMA Gross/Micro L4 Patient: Abrahan Woods [id number] (Continued) Specimen: [id number] Received: 07/14/23 (Continued) Signed (signature on file) Maria Fernanda Menchaca MD 07/17/23 1756 Specimen: [id number] Received: 07/14/23 Status: LINDSEY Virk Num: [id number] Spec Type: Surgical Subm Dr: Valentin Gallego Tissues: A Skin-Other than Cyst, tag, debridement or plastic repair (LT LABIA) Procedures: Carson HERRING/Connor Coles Patient: Abrahan Woods [id number] (Continued) Specimen: [id number] Received: 07/14/23 (Continued) CPT Codes 36062 Specimen: [id number] Received: 07/14/23 Status: LINDSEY Hannah Num: [id number] Spec Type: Surgical Subm Dr: Valentin Gallego Tissues: A Skin-Other than Cyst, tag, debridement or plastic repair (LT LABIA) Procedures: Carson HERRING/Connor L4 Patient: Abrahan Woods [id number] (Continued) Signed (signature on file) Maria Fernanda Menchaca MD 07/17/23 1756 Normal [facility] Cult,Urineon 04-22-2023 Cult,Urine Specimen Description .CLEAN CATCH URINE Culture NO SIGNIFICANT GROWTH Report Status FINAL 04/22/2023 Normal [facility] Comment on above: Performed By: #### U RC #### [facility] [address], [place] [id number] Solar Energy Installation Manager: Juan Neumann MD [facility] [address] [place] [address] [place] [address] Solar Energy Installation Manager: Ernst Dillard MD XR ABDOMEN (KUB) (SINGLE AP VIEW)on 04-22-2023 XR ABDOMEN (KUB) (SINGLE AP VIEW) EXAMINATION: ONE SUPINE XRAY VIEW(S) OF THE ABDOMEN 04/21/2023 9:04 am COMPARISON: 01/28/2023 CT HISTORY: ORDERING SYSTEM PROVIDED HISTORY: Kidney stones TECHNOLOGIST PROVIDED HISTORY: kidney stones FINDINGS Right upper quadrant surgical clips are noted.The bowel gas pattern is nonobstructive.Evaluatio n for pneumoperitoneum is limited in this supine-view examination.No pathologic calcifications are seen.The visible bones appear intact. IMPRESSION 1. No evidence of renal calculus. Interpreted by: Ant Anguiano MD Signed by: Ant Anguiano MD 04/21/23 Final result Normal [facility] Vaginitis DNA Probeon 2022 Kayla Positive Abnormal NEG [facility] Comment on above: Result Comment: for Kayla sp. Method of testing is a DNA probe intended for detection and identification of Kayla species, Gardnerella vaginalis, and Trichomonas vaginalis nucleic acid in vaginal fluid specimens from patients with symptoms of vaginitis/vaginosis. Performed By: #### V AGP #### [facility] [address] [place] [address] [phone] Solar Energy Installation Manager: Juan Neumann MD Gardnerella Negative Normal NEG [facility] Comment on above: Result Comment: for Gardnerella vaginalis Performed By: #### V AGP #### [facility] [address] [place] [address] [phone] Solar Energy Installation Manager: Juan Neumann MD Trichomonas Negative Normal NEG [facility] Comment on above: Result Comment: for Trichomonas Vaginalis Performed By: #### V AGP #### [facility] [address] [place] [address] [phone] Solar Energy Installation Manager: Juan Neumann MD Vaginitis DNA Probeon 2022 Source .VAGINAL SWAB Normal [facility] Comment on above: Performed By: #### V AGP #### [facility] [address] [place] [address] [phone] Solar Energy Installation Manager: Juan Neumann MD No Panel Informationon 02-19 Kayla Positive Abnormal (NEG ) [facility] Comment on above: Note: for Kayla sp .Method of testing is a DNA probe intended for detection and identification ofCandida species, Gardnerella vaginalis, and Trichomonas vaginalis nucleic acidin vaginal fluid specimens from patients with symptoms of vaginitis/vaginosis.Responsible Observer: LETICIA MONTENEGRO ([id number]) Gardnerella Negative (NEG ) [facility] Comment on above: Note: for Gardnerell a vaginalisResponsible Observer: LETICIA MONTENEGRO ([id number]) Reported Physicians See Note [facility] Comment on above: Note: Reported Physi cians:Ordering: Srinivasa JhaveriAttending: Lizbet Jhaverieferring: Srinivasa Jhaveri Source .VAGINAL SWAB [facility] Comment on above: Note: Responsible Ob ware server: [employer] ([id number]) Trichomonas Negative (NEG ) [facility] Comment on above: Note: for Trichomona s VaginalisResponsible Observer: LETICIA MONTENEGRO ([id number]) Cult,Urineon 02-06-2023 Cult,Urine Specimen Description .CLEAN CATCH URINE Culture NO SIGNIFICANT GROWTH Report Status FINAL 02/06/2023 Normal [facility] Comment on above: Performed By: #### U RC #### [facility] [address] [place] [phone] Solar Energy Installation Manager: Juan Neumann MD Vaginitis DNA Probeon 2022 Kayla Positive Abnormal NEG [facility] Comment on above: Result Comment: for Kayla sp. Method of testing is a DNA probe intended for detection and identification of Kayla species, Gardnerella vaginalis, and Trichomonas vaginalis nucleic acid in vaginal fluid specimens from patients with symptoms of vaginitis/vaginosis. Performed By: #### V AGP #### [facility] [address] [place] [id number] Solar Energy Installation Manager: Juan Neumann MD Gardnerella Negative Normal NEG [facility] Comment on above: Result Comment: for Gardnerella vaginalis Performed By: #### V AGP #### [facility] [address] [place] [phone] Solar Energy Installation Manager: Juan Neumann MD Trichomonas Negative Normal NEG [facility] Comment on above: Result Comment: for Trichomonas Vaginalis Performed By: #### V AGP #### [facility] [employer] [address] [place] [address] Solar Energy Installation Manager: Juan Neumann MD Source .VAGINAL SWAB Normal [facility] Comment on above: Performed By: #### V AGP #### [address] [address] Solar Energy Installation Manager: Juan Neumann MD Laboratory - Microbiology an d Antimicrobial susceptibilityon 02-05-2023 Bacteria identified Cx Nom (U) See Note [facility] Comment on above: Note: Specimen Descr iption .CLEAN CATCH URINECulture NO SIGNIFICANT GROWTHReport Status FINAL 02/06/2023Responsible Observer: SHERYL WEISS ([id number]) No Panel Informationon 02-05 Kayla Positive Abnormal (NEG ) [facility] Comment on above: Note: for Kayla sp .Method of testing is a DNA probe intended for detection and identification ofCandida species, Gardnerella vaginalis, and Trichomonas vaginalis nucleic acidin vaginal fluid specimens from patients with symptoms of vaginitis/vaginosis.Responsible Observer: NAWAF DENTON ([id number]) Gardnerella Negative (NEG ) [facility] Comment on above: Note: for Gardnerell a vaginalisResponsible Observer: NAWAF DENTON ([id number]) Reported Physicians See Note [facility] Comment on above: Note: Reported Physi cians:Ordering: Srinivasa JhaveriAttending: Cathryn JhaveriieReferring: Srinivasa Jhaveri Source .VAGINAL SWAB [facility] Comment on above: Note: Responsible Ob ware server: SHERYL FRANCISGRAYREGINA ([id number]) Trichomonas Negative (NEG ) [facility] Comment on above: Note: for Trichomona s VaginalisResponsible Observer: NAWAF DENTON ([id number]) CT ABDOMEN PELVIS W IV CONTR Jorge [...] Nellie Kiran MD 01/30/23 Final result Normal [facility] CBC with Diffon 01-28-2023 Abs. Basophil 0.05 k/uL Normal 0.00-0.20 [facility] Comment on above: Performed By: #### C P, CDP, MG, LIP #### [address] [place] [address] Solar Energy Installation Manager: Ernst Dillard MD Abs.Imm.Granulocyte 0.03 k/uL Normal 0.00-0.30 [facility] Comment on above: Performed By: #### C P, CDP, MG, LIP #### [address] [place] [address] Solar Energy Installation Manager: Ernst Dillard MD Abs.Neutrophil (Seg) 5.52 k/uL Normal 1.50-8.10 [facility] Comment on above: Performed By: #### C P, CDP, MG, LIP #### [address] [place] [address] Solar Energy Installation Manager: Ernst Dillard MD Basophils/100 WBC (Bld) 1 % Normal 0-2 M [facility] Comment on above: Performed By: #### C P, CDP, MG, LIP #### [address] [place], [place] [phone] Solar Energy Installation Manager: Ernst Dillard MD Eosinophils (Bld) [#/Vol] 0.13 10*3/uL Normal 0.00-0.44 [facility] Comment on above: Performed By: #### C P, CDP, MG, LIP #### [address] [place] [address] Solar Energy Installation Manager: Ernst Dillard MD Eosinophils/100 WBC (Bld) 2 % Normal 1-4 [facility] Comment on above: Performed By: #### C P, CDP, MG, LIP #### [address] [place], [facility] Solar Energy Installation Manager: Ernst Dillard MD Erythrocyte distribution width (RBC) [Ratio] 13.5 % Normal 11.8-14.4 [facility] Comment on above: Performed By: #### C P, CDP, MG, LIP #### [address] [place], [facility] Solar Energy Installation Manager: Ernst Dillard MD Hematocrit (Bld) [Volume fraction] 41.4 % Normal 36.3-47.1 [facility] Comment on above: Performed By: #### C P, CDP, MG, LIP #### [address] [place], [facility] Solar Energy Installation Manager: Ernst Dillard MD Hemoglobin (Bld) [Mass/Vol] 13.5 g/dL Normal 11.9-15.1 [facility] Comment on above: Performed By: #### C P, CDP, MG, LIP #### [address] [place] [phone] Solar Energy Installation Manager: Ernst Dillard MD Immature granulocytes/100 WBC (Bld) 0 % Normal 0 [facility] Comment on above: Performed By: #### C P, CDP, MG, LIP #### [address] [place], [facility] Solar Energy Installation Manager: Ernst Dillard MD Lymphocytes (Bld) [#/Vol] 2.27 10*3/uL Normal 1.10-3.70 [facility] Comment on above: Performed By: #### C P, CDP, MG, LIP #### [address] [place] [address] Solar Energy Installation Manager: Ernst Dillard MD Lymphocytes/100 WBC (Bld) 26 % Normal 24-43 [facility] Comment on above: Performed By: #### C P, CDP, MG, LIP #### [address] [place], [facility] Solar Energy Installation Manager: Ernst Dillard MD MCH (RBC) [Entitic mass] 30.0 pg Normal 25.2-33.5 [facility] Comment on above: Performed By: #### C P, CDP, MG, LIP #### [address] [place], [facility] Solar Energy Installation Manager: Ernst Dillard MD MCHC (RBC) [Mass/Vol] 32.6 g/dL Normal 28.4-34.8 [facility] Comment on above: Performed By: #### C P, CDP, MG, LIP #### [address] [place], [facility] Solar Energy Installation Manager: Ernst Dillard MD MCV (RBC) [Entitic vol] 92.0 fL Normal 82.6-102.9 [facility] Comment on above: Performed By: #### C P, CDP, MG, LIP #### [address] [place], [facility] Solar Energy Installation Manager: Ernst Dillard MD Monocytes (Bld) [#/Vol] 0.67 10*3/uL Normal 0.10-1.20 [facility] Comment on above: Performed By: #### C P, CDP, MG, LIP #### [address] [place], [facility] Solar Energy Installation Manager: Ernst Dillard MD Monocytes/100 WBC (Bld) 8 % Normal 3-12 M [facility] Comment on above: Performed By: #### C P, CDP, MG, LIP #### [address] [place] [address] Solar Energy Installation Manager: Ernst Dillard MD Neutrophil (Seg) 63 % Normal 36-65 [facility] Comment on above: Performed By: #### C P, CDP, MG, LIP #### [facility] [address] [place] [address] [address] [place], [place] [address] Solar Energy Installation Manager: Ernst Dillard MD NRBC Automated 0.0 per 100 WBC Normal 0.0 [facility] Comment on above: Performed By: #### C P, CDP, MG, LIP #### [address] [place], [place] [phone] Solar Energy Installation Manager: Ernst Dillard MD Platelet mean volume (Bld) [Entitic vol] 9.5 fL Normal 8.1-13.5 [facility] Comment on above: Performed By: #### C P, CDP, MG, LIP #### [address] [place] [address] Solar Energy Installation Manager: Ernst Dillard MD Platelets (Bld) [#/Vol] 270 10*3/uL Normal 138-453 [facility] Comment on above: Performed By: #### C P, CDP, MG, LIP #### [address] [place] [address] Solar Energy Installation Manager: Ernst Dillard MD RBC (Bld) [#/Vol] 4.50 10*6/uL Normal 3.95-5.11 [facility] Comment on above: Performed By: #### C P, CDP, MG, LIP #### [address] [place] [address] Solar Energy Installation Manager: Ernst Dillard MD WBC (Bld) [#/Vol] 8.7 10*3/uL Normal 3.5-11.3 [facility] Comment on above: Performed By: #### C P, CDP, MG, LIP #### [address] [place] [address] Solar Energy Installation Manager: Ernst Dillard MD Comp Metabolic Profon 2022 Albumin [Mass/Vol] 4.1 g/dL Normal 3.5-5.2 [facility] Comment on above: Performed By: #### C P, CDP, MG, LIP #### [facility] [address] [place], [place] [phone] Solar Energy Installation Manager: Ernst Dillard MD Albumin/Glob Ratio 1.5 Normal 1.0-2.5 [facility] Comment on above: Performed By: #### C P, CDP, MG, LIP #### [facility] [address] [place], [place] [id number] [employer] Manager: rEnst Dillard MD Alkaline Phos 63 U/L Normal 35-104 [facility] Comment on above: Performed By: #### C P, CDP, MG, LIP #### [facility] [address] [place], [place] [id number] [employer] Manager: Ernst Dillard MD ALT [Catalytic activity/Vol] 21 U/L Normal 5-33 [facility] Comment on above: Performed By: #### C P, CDP, MG, LIP #### [address] [place], [place] [address] [employer] Manager: Ernst Dillard MD Anion gap [Moles/Vol] 9 mmol/L Normal 9-17 [facility] Comment on above: Performed By: #### C P, CDP, MG, LIP #### [facility] [address] [place] [address] [address] [place], [place] [id number] [employer] Manager: Ernst Dillard MD AST [Catalytic activity/Vol] 14 U/L Normal <32 [facility] Comment on above: Performed By: #### C P, CDP, MG, LIP #### [facility] [address] [place], [place] [address] [employer] Manager: Ernst Dillard MD Bilirubin [Mass/Vol] 0.2 mg/dL Low 0.3-1.2 [facility] Comment on above: Performed By: #### C P, CDP, MG, LIP #### [facility] [address] [place], [place] [id number] [employer] Manager: Ernst Dillard MD BUN/CRE Ratio 9 Normal 9-20 [facility] Comment on above: Performed By: #### C P, CDP, MG, LIP #### [facility] [address] [place], [place] [id number] [employer] Manager: Ernst Dillard MD Calcium [Mass/Vol] 8.9 mg/dL Normal 8.6-10.4 [facility] Comment on above: Performed By: #### C P, CDP, MG, LIP #### [facility] [address] [place], [place] [id number] [employer] Manager: Ernst Dillard MD Chloride [Moles/Vol] 106 mmol/L Normal 98-107 [facility] Comment on above: Performed By: #### C P, CDP, MG, LIP #### [facility] [address] [place], [place] [id number] [employer] Manager: Ernst Dillard MD CO2 [Moles/Vol] 26 mmol/L Normal 20-31 [facility] Comment on above: Performed By: #### C P, CDP, MG, LIP #### [facility] [address] [place], [place] [id number] [employer] Manager: Ernst Dillard MD Creatinine [Mass/Vol] 0.8 mg/dL Normal 0.5-0.9 [facility] Comment on above: Performed By: #### C P, CDP, MG, LIP #### [facility] [address] [place] [address] [employer] Manager: Ernst Dillard MD GFR/1.73 sq M.predicted among non-blacks MDRD (S/P/Bld) [Vol rate/Area] mL/min/{1.73_m2} Normal >60 [facility] Comment on above: Result Comment: These results [...] renal tubular secretion. Performed By: #### C P, CDP, MG, LIP #### [facility] [address] [place], [facility] [employer] Manager: Ernst Dillard MD Glucose [Mass/Vol] 91 mg/dL Normal 70-99 [facility] Comment on above: Performed By: #### C P, CDP, MG, LIP #### [address] [place] [address] [employer] Install[employer] Manager: Ernst Dillard MD Potassium [Moles/Vol] 3.6 mmol/L Low 3.7-5.3 [facility] Comment on above: Performed By: #### C P, CDP, MG, LIP #### [address] [place], [place] [id number] [employer] Manager: Ernst Dillard MD Protein [Mass/Vol] 6.8 g/dL Normal 6.4-8.3 [facility] Comment on above: Performed By: #### C P, CDP, MG, LIP #### [address] [place], [facility] [employer] Manager: Ernst Dillard MD Sodium [Moles/Vol] 141 mmol/L Normal 135-144 [facility] Comment on above: Performed By: #### C P, CDP, MG, LIP #### [address] [place], [facility] [employer] Manager: Ernst Dillard MD Urea nitrogen [Mass/Vol] 7 mg/dL Normal 6-20 [facility] Comment on above: Performed By: #### C P, CDP, MG, LIP #### [facility] [address] [place] [address] [employer] Manager: Ernst Dillard MD Lactic Acidon 01-28-2023 Lactate [Moles/Vol] 0.8 mmol/L Normal 0.5-2.2 [facility] Comment on above: Performed By: #### L ACTIC #### [facility] [address] [place] [id number] [employer] Install[employer] Manager: Ernst Dillard MD Lipaseon 01-28-2023 Lipase [Catalytic activity/Vol] 21 U/L Normal 13-60 [facility] Comment on above: Performed By: #### C P, CDP, MG, LIP #### [facility] [address] [place] [address] [employer] Installation Manager: Ernst Dillard MD Magnesiumon 01-28-2023 Magnesium [Mass/Vol] 2.1 mg/dL Normal 1.6-2.6 [facility] Comment on above: Performed By: #### C P, CDP, MG, LIP #### [facility] [address] [place] [address] [employer] Installation Manager: Ernst Dillard MD Gastroenterology Office/Clin ic Noteon [...] these as stool caliber 4-5 on the [place]. Denies any current acid reflux or heartburn. [...] terminal ileum. Good bowel prep with the [place] bowel prep score of 7. IRENE negative for stenosis/stricture or palpable mass lesion. Examined mucosa of the terminal ileum, cecum, ascending colon, hepatic flexure, transverse colon, splenic flexure, descending colon, sigmoid colon, rectum was normal except: Diverticulosis in (more content not included)... Normal [facility] US PELVIS AND TRANSVAGon US PELVIS AND [...] KIRK SHANNON Date: 2022-08-06 06:54 Normal [facility] CBC AUTO DIFFon 08-05-2022 BASO # 0.1 103/ul Normal 0.0-0.1 [facility] Comment on above: Performed By: #### C BC ####[facility] [address] [place], [place] [address]Dr. Senthil Menchaca Basophils/100 WBC (Bld) 0.3 % Normal 0.2-2.0 [facility] Comment on above: Performed By: #### C BC ####[facility] [address] [place], [place] [address]Dr. Senthil Menchaca EO # 0.2 103/ul Normal 0.0-0.7 [facility] Comment on above: Performed By: #### C BC ####[facility] [address] [place], [place] [address]Dr. Senthil Menchaca Eosinophils/100 WBC (Bld) 0.8 % Critically low 0.9-7.0 [facility] Comment on above: Performed By: #### C BC ####[facility] [address] [place], [place] [address]Dr. Senthil Menchaca Erythrocyte distribution width (RBC) [Ratio] 13.5 % Normal 11.0-15.0 [facility] Comment on above: Performed By: #### C BC ####[facility] [address] [place], [place] [address]Dr. Senthil Menchaca Hematocrit (Bld) [Volume fraction] 42.8 % Normal 36.0-48.0 [facility] Comment on above: Performed By: #### C BC ####[facility] [address] [place] [id number]. Senthil Menchaca Hemoglobin (Bld) [Mass/Vol] 14.0 g/dL Normal 12.0-16.0 [facility] Comment on above: Performed By: #### C BC ####[facility] [address] [place] [address]Dr. Senthil Menchaac IG # 0.08 10e3/ul Critically high 0.00-0.03 [facility] Comment on above: Performed By: #### C BC ####[facility] [address] [place] [address]Dr. Senthil Nikolai IG % 0.4 % Normal 0.0-0.5 [facility] Comment on above: Performed By: #### C BC ####[facility] [address] [place] [address]Dr. Senthil Menchaca LYMPH # 2.0 103/ul Normal 1.2-3.8 [facility] Comment on above: Performed By: #### C BC ####[facility] [address] [place] [address]Dr. Senthil Nikolai Lymphocytes/100 WBC (Bld) 11.0 % Critically low 20.5-60.0 [facility] Comment on above: Performed By: #### C BC ####[facility] [address] [place] [address]Dr. Senthil Menchaca MANUAL DIFF REQ NO Normal [facility] Comment on above: Performed By: #### C BC ####[facility] [address] [place] [id number]. Senthil Nikolai MCH (RBC) [Entitic mass] 30.1 pg Normal 26.7-34.0 [facility] Comment on above: Performed By: #### C BC ####[facility] [address] [place] [address]Dr. Senthil Nikolai MCHC (RBC) [Mass/Vol] 32.7 g/dL Normal 29.9-35.2 [facility] Comment on above: Performed By: #### C BC ####[facility] [address] [place] [address]Dr. Senthil Menchaca MCV (RBC) [Entitic vol] 92.0 fL Normal 81.0-99.0 [facility] Comment on above: Performed By: #### C BC ####[facility] [address] [place] [address]Dr. Senthil Menchaca MONO # 0.9 103/ul Critically high 0.3-0.8 [facility] Comment on above: Performed By: #### C BC ####[facility] [address] [place] [address]Dr. Senthil Menchaca Monocytes/100 WBC (Bld) 4.9 % Normal 1.7-12.0 [facility] Comment on above: Performed By: #### C BC ####[facility] [address] [place], [place] [address]Dr. Senthil Menchaca NEUT # 14.8 103/ul Critically high 1.4-6.5 [facility] Comment on above: Performed By: #### C BC ####[facility] [address] [place], [place] [address]Dr. Senthil Nikolai Neutrophils/100 WBC (Bld) 82.6 % Critically high 43.0-75.0 [facility] Comment on above: Performed By: #### C BC ####[facility] [address] [place] [phone]. Senthil Nikolai Platelet mean volume (Bld) [Entitic vol] 9.2 fL Critically low 9.5-13.5 [facility] Comment on above: Performed By: #### C BC ####[facility] [address] [place] [address]Dr. Senthil Nikolai PLT 311 103/ul Normal 150-450 [facility] Comment on above: Performed By: #### C BC ####[facility] [address] [place] [address]Dr. Senthil Menchaca RBC 4.65 106/ul Normal 4.20-5.40 [facility] Comment on above: Performed By: #### C BC ####[facility] [address] [place] [address]DrTonya Menchaca WBC 18.0 103/ul Critically high 4.0-11.0 [facility] Comment on above: Performed By: #### C BC ####[facility] [address] [place] [phone] Menchaca FREE T4on 08-05-2022 Free T4 [Mass/Vol] 0.92 ng/dL Normal 0.76-1.46 [facility] Comment on above: Performed By: #### F T4 #### [facility] [address] [place] [address] [address] Senthil Menchaca GLYCOHEMOGLOBIN A1Con 2022 ADA RECOMMENDATION SEE BELOW Normal [facility] Comment on above: Result Comment: ADA RECOMMENDED LIMIT 4.0 - 6.0 ADA THERAPEUTIC TARGET < 7.0 ACTION SUGGESTED > 7.0 Performed By: #### A 1C ####[facility] [address] [place] [address]DrTonya Menchaca Glucose [Mass/Vol] 100 mg/dL Normal [facility] Comment on above: Performed By: #### A 1C ####[facility] [address] [place] [address]DrTonya Menchaca HbA1c (Bld) [Mass fraction] 5.1 % Normal 4.5-6.2 [facility] Comment on above: Performed By: #### A 1C ####[facility] [address] [place] [address]Dr. Senthil Menchaca PREG QUANT HCGon 08-05-2022 HCG QUANT <1 Normal [facility] Comment on above: Performed By: #### P REGQNT, TSH #### [facility] [address] [place] [address] [address] Senthil Menchaca HCG RANGE SEE BELOW Normal [facility] Comment on above: Result Comment: 5-50 0.2-1 WEEK 50-500 1-2 WEEKS 100-5,000 2-3 WEEKS 500-10,000 3-4 WEEKS 1,000-50,000 4-5 WEEKS 10,000-100,000 5-6 WEEKS 15,000-200,000 6-8 WEEKS 10,000-100,000 2-3 MONTHS Performed By: #### P REGQNT, TSH #### [facility] [address] [place] [address] [address] Senthil Menchaca PROTIMEon 08-05-2022 INR Coag (PPP) [Relative time] 1.01 {INR} Normal [facility] Comment on above: Performed By: #### P TT, PT ####[facility] [address] [place] [address]Dr. Senthil Menchaca INR GUIDELINES SEE BELOW Normal [facility] Comment on above: Result Comment: BAYLEE RED INR: 2.0 - 3.0 CONDITIONS NOT LISTED BELOW 2.5 - 3.5 FOR PROSTHETIC HEART VALVE REPLACEMENT 2.5 - 3.5 RECURRENT THROMBOSIS Performed By: #### P TT, PT ####[facility] [address] [place] [address]Dr. Senthil Menchaca PT Coag (PPP) [Time] 10.7 s Normal 9.0-11.6 [facility] Comment on above: Performed By: #### P TT, PT ####[facility] [address] [place] [address]Dr. Senthil Menchaca PTTon 08-05-2022 aPTT Coag (Bld) [Time] 26.6 s Normal 22.3-36.2 [facility] Comment on above: Performed By: #### P TT, PT ####[facility] [address] [place] [address]DrTonya Menchaca TSHon 08-05-2022 TSH 0.486 uIU/mL Normal 0.358-3.74 0 [facility] Comment on above: Performed By: #### P REGQNT, TSH #### [facility] [address] [place] [address] [address] Senthil Menchaca CBC AUTO DIFFon 07-03-2022 BASO # 0.1 103/ul Normal 0.0-0.1 [facility] Comment on above: Performed By: #### C BC #### [facility] [address] [place] [address] Dr. Senthil Menchaca Basophils/100 WBC (Bld) 0.9 % Normal 0.2-2.0 [facility] Comment on above: Performed By: #### C BC #### [facility] [address] [place] [address] Dr. Senthil Menchaca EO # 0.2 103/ul Normal 0.0-0.7 [facility] Comment on above: Performed By: #### C BC #### [facility] [address] [place] [address] Dr. Senthil Menchaca Eosinophils/100 WBC (Bld) 2.0 % Normal 0.9-7.0 [facility] Comment on above: Performed By: #### C BC #### [facility] [address] [place] [address] Dr. Senthil Menchaca Erythrocyte distribution width (RBC) [Ratio] 13.8 % Normal 11.0-15.0 [facility] Comment on above: Performed By: #### C BC #### [facility] [address] [place] [address] Dr. Senthil Menchaca Hematocrit (Bld) [Volume fraction] 44.2 % Normal 36.0-48.0 [facility] Comment on above: Performed By: #### C BC #### [facility] [address] [place] [address] Dr. Senthil Menchaca Hemoglobin (Bld) [Mass/Vol] 14.4 g/dL Normal 12.0-16.0 [facility] Comment on above: Performed By: #### C BC #### [facility] [address] [place] [address] Dr. Senthil Menchaca IG # 0.03 10e3/ul Normal 0.00-0.03 [facility] Comment on above: Performed By: #### C BC #### [facility] [address] [place] [address] Dr. Senthil Menchaca IG % 0.3 % Normal 0.0-0.5 [facility] Comment on above: Performed By: #### C BC #### [facility] [address] [place] [address] [address] Senthil Menchaca LYMPH # 2.8 103/ul Normal 1.2-3.8 [facility] Comment on above: Performed By: #### C BC #### [facility] [address] [place] [address] [address] Senthil Menchaca Lymphocytes/100 WBC (Bld) 27.5 % Normal 20.5-60.0 [facility] Comment on above: Performed By: #### C BC #### [facility] [address] [place] [address] Dr. Senthil Menchaca MANUAL DIFF REQ NO Normal [facility] Comment on above: Performed By: #### C BC #### [facility] [address] [place] [address] Dr. Senthil Menchaca MCH (RBC) [Entitic mass] 29.8 pg Normal 26.7-34.0 [facility] Comment on above: Performed By: #### C BC #### [facility] [address] [place] [address] Dr. Senthil Menchaca MCHC (RBC) [Mass/Vol] 32.6 g/dL Normal 29.9-35.2 [facility] Comment on above: Performed By: #### C BC #### [facility] [address] [place] [address] Dr. Senthil Menchaca MCV (RBC) [Entitic vol] 91.5 fL Normal 81.0-99.0 [facility] Comment on above: Performed By: #### C BC #### [facility] [address] [place] [address] Dr. Senthil Menchaca MONO # 1.1 103/ul Critically high 0.3-0.8 [facility] Comment on above: Performed By: #### C BC #### [facility] [address] [place] [address] Dr. Senthil Menchaca Monocytes/100 WBC (Bld) 11.2 % Normal 1.7-12.0 [facility] Comment on above: Performed By: #### C BC #### [facility] [address] [place] [address] Dr. Senthil Menchaca NEUT # 6.0 103/ul Normal 1.4-6.5 [facility] Comment on above: Performed By: #### C BC #### [facility] [address] [place] [address] Dr. Senthil Menchaca Neutrophils/100 WBC (Bld) 58.1 % Normal 43.0-75.0 [facility] Comment on above: Performed By: #### C BC #### [facility] [address] [place] [address] Dr. Senthil Menchaca Platelet mean volume (Bld) [Entitic vol] 9.2 fL Critically low 9.5-13.5 [facility] Comment on above: Performed By: #### C BC #### [facility] [address] [place] [address] Dr. Senthil Menchaca PLT 324 103/ul Normal 150-450 [facility] Comment on above: Performed By: #### C BC #### [facility] [address] [place] [address] Dr. Senthil Menchaca RBC 4.83 106/ul Normal 4.20-5.40 [facility] Comment on above: Performed By: #### C BC #### [facility] [address] [place] [address] Dr. Senthil Menchaca WBC 10.2 103/ul Normal 4.0-11.0 [facility] Comment on above: Performed By: #### C BC #### [facility] [address] [place] [address] ABD/PELV W CONon [...] by: LORRIE CESPEDES Date: 2022-07-03 18:01 Normal [facility] ER URINE PROFILEon 3 Bilirubin Ql (U) Negative Normal NEGATIVE [facility] Comment on above: Performed By: #### P REGU, ERUR, UMICRO #### [facility] [address] [place] [address] Dr. Senthil Menchaca Clarity (U) CLEAR Normal CLEAR [facility] Comment on above: Performed By: #### P REGU, ERUR, UMICRO #### [facility] [address] [place] [address] [address] Senthil Menchaca Color (U) LT. YELLOW Normal YELLOW [facility] Comment on above: Performed By: #### P REGU ERUR, UMICRO #### [facility] [address] [place] [address] [address] Senthil LEYD A micrscopic examina tion will be performed if indicated. Normal [facility] Comment on above: Performed By: #### P REGU, ERUR, UMICRO #### [facility] [address] [place] [address] [address] Senthil Menchaca Glucose Ql (U) Negative Normal NEGATIVE [facility] Comment on above: Performed By: #### P REGU, ERUR, UMICRO #### [facility] [address] [place] [address] [address] Senthil Menchaca Hemoglobin Ql (U) TRACE-INTACT Abnormal NEGATIVE [facility] Comment on above: Performed By: #### P REGU, ERUR, UMICRO #### [facility] [address] [place] [address] [address] Senthil Menchaca Ketones Ql (U) Negative Normal NEGATIVE [facility] Comment on above: Performed By: #### P REGU, ERUR, UMICRO #### [facility] [address] [place] [address] [address] Senthil Menchaca LEUKOCYTES Negative Normal NEGATIVE [facility] Comment on above: Performed By: #### P REGU, ERUR, UMICRO #### [facility] [address] [place] [address] [address] Senthil Menchaca Nitrite Ql (U) Negative Normal NEGATIVE [facility] Comment on above: Performed By: #### P REGU, ERUR, UMICRO #### [facility] [address] [place] [address] Dr. Senthil Menchaca pH (U) 7.0 [pH] Normal 5-9 [facility] Comment on above: Performed By: #### P REGU, ERUR, UMICRO #### [facility] [address] [place] [address] [address] Senthil Menchaca SPEC GRAVITY 1.010 Normal 1.005-<=1. 025 [facility] Comment on above: Performed By: #### P REGU ERUR, UMICRO #### [facility] [address] [place] [address] [address] Senthil Menchaca UA PROTEIN Negative Normal NEGATIVE/ TRACE [facility] Comment on above: Performed By: #### P REGU, ERUR, UMICRO #### [facility] [address] [place] [address] [address] Senthil Menchaca UR MICRO IND INDICATED Normal [facility] Comment on above: Performed By: #### P REGU, ERUR, UMICRO #### [facility] [address] [place] [address] [address] Senthil Menchaca Urobilinogen Qn (U) 0.2 {Sherley'U}/dL Normal 0.2 - 1. 0 [facility] Comment on above: Performed By: #### P REGU, ERUR, UMICRO #### [facility] [address] [place] [address] [address] Senthil Menchaca URon 07-03-2022 , QUAL Negative Normal NEGATIVE [facility] Comment on above: Performed By: #### P CYNTHIA ROGERS UMICRO #### [facility] [address] [place] [address] [address] Senthil Menchaca PROF 14(COMP METB)on 023 Albumin [Mass/Vol] 4.3 g/dL Normal 3.4-5.0 [facility] Comment on above: Performed By: #### C MP ####[facility] [address] [place] [address]Dr. Senthil Menchaca Albumin/Globulin [Mass ratio] 1.3 {ratio} Normal [facility] Comment on above: Performed By: #### C MP ####[facility] [address] [place] [address]Dr. Senthil Menchaca ALP [Catalytic activity/Vol] 84 U/L Normal 46-116 [facility] Comment on above: Performed By: #### C MP ####[facility] [address] [place] [address]Dr. Senthil Menchaca ALT [Catalytic activity/Vol] 23 U/L Normal 14-59 [facility] Comment on above: Performed By: #### C MP ####[facility] [address] [place] [address]DrTonya Menchaca Anion gap [Moles/Vol] 12.0 mmol/L Normal [facility] Comment on above: Performed By: #### C MP ####[facility] [address] [place] [address]Dr. Senthil Menchaca AST [Catalytic activity/Vol] 15 U/L Normal 15-37 [facility] Comment on above: Performed By: #### C MP ####[facility] [address] [place] [address]DrTonya Menchaca Bilirubin [Mass/Vol] 0.3 mg/dL Normal 0.2-1.0 [facility] Comment on above: Performed By: #### C MP ####[facility] [address] [place] [address]Dr. Senthil Menchaca Calcium [Mass/Vol] 8.7 mg/dL Normal 8.5-10.1 [facility] Comment on above: Performed By: #### C MP ####[facility] [address] [place] [address]Dr. Senthil Menchaca Chloride [Moles/Vol] 103 mmol/L Normal 98-107 [facility] Comment on above: Performed By: #### C MP ####[facility] [address] [place], [place] [address]Dr. Senthil Menchaca CO2 [Moles/Vol] 27.6 mmol/L Normal 21.0-32.0 [facility] Comment on above: Performed By: #### C MP ####[facility] [address] [place], [place] [address]Dr. Senthil Menchaca Creatinine [Mass/Vol] 0.78 mg/dL Normal 0.55-1.02 [facility] Comment on above: Performed By: #### C MP ####[facility] [address] [place], [place] [address]Dr. Senthil Menchaca EGFR-AF ALBANIAN >60 Normal >=60 [facility] Comment on above: Performed By: #### C MP ####[facility] [address] [place], [place] [address]Dr. Senthil Menchaca EGFR-NON AF [place]IAN >60 Normal >=60 [facility] Comment on above: Performed By: #### C MP ####[facility] [address] [place], [place] [address]Dr. Senthil Menchaca Globulin (S) [Mass/Vol] 3.3 g/dL Normal [facility] Comment on above: Performed By: #### C MP ####[facility] [address] [place], [place] [address]Dr. Senthil Menchaca Glucose [Mass/Vol] 86 mg/dL Normal 74-106 [facility] Comment on above: Performed By: #### C MP ####[facility] [address] [place] [address]Dr. Senthil Menchaca Potassium [Moles/Vol] 3.6 mmol/L Normal 3.5-5.1 [facility] Comment on above: Performed By: #### C MP ####[facility] [address] [place] [address]Dr. Senthil Menchaca Protein [Mass/Vol] 7.6 g/dL Normal 6.4-8.2 [facility] Comment on above: Performed By: #### C MP ####[facility] [address] [place], [place] [address]Dr. Senthil Menchaca Sodium [Moles/Vol] 139 mmol/L Normal 136-145 [facility] Comment on above: Performed By: #### C MP ####[facility] [address] [place], [place] [address]Dr. Senthil Menchaca Urea nitrogen [Mass/Vol] 8.0 mg/dL Normal 7.0-18.0 [facility] Comment on above: Performed By: #### C MP ####[facility] [address] [place], [place] [address]Dr. Senthil Menchaca Urea nitrogen/Creatinine [Mass ratio] 10.3 mg/mg Normal [facility] Comment on above: Performed By: #### C MP ####[facility] [address] [place], [place] [address]Dr. Senthil Menchaca URINE MICROSCOPIC ONLYon BACTERIA TRACE Abnormal NONE SEEN [facility] Comment on above: Performed By: #### P CYNTHIA ROGERS UMSIDRARO ####[facility] [address] [place], [place] [address]Dr. Senthil Nikolai Bacteria identified Cx Nom (U) NOT INDICATED Normal [facility] Comment on above: Performed By: #### P RACHID ROGERSR UMICRO ####[facility] [address] [place] [address]Dr. Senthil Menchaca CAST NONE SEEN Normal NONE SEEN [facility] Comment on above: Performed By: #### P CYNTHIA ROGERS UMICRO ####[facility] [address] [place] [id number]. Senthil Menchaca Crystals LM Nom (Urine sed) NONE SEEN Normal NONE SEEN [facility] Comment on above: Performed By: #### CYNTHIA DELUNA UMICRO ####[facility] [address] [place] [phone]. Senthil Menchaca Epithelial cells LM Ql (Urine sed) FEW Abnormal NONE SEEN /RARE [facility] Comment on above: Performed By: #### CYNTHIA DELUNA UMICRO ####[facility] [address] [place] [phone]. Senthil Menchaca MUCOUS NONE SEEN Normal NONE SEEN [facility] Comment on above: Performed By: #### CYNTHIA DELUNA UMICRO ####[facility] [address] [place] [address]Dr. Naomimikel Menchaca RBC 2-5 Abnormal 0-2 [facility] Comment on above: Performed By: #### CYNTHIA DELUNA UMICRO ####[facility] [address] [place] [phone]. Senthil Menchaca WBC 0-2 Abnormal NONE SEEN [facility] Comment on above: Performed By: #### CYNTHIA DELUNA UMICRO ####[facility] [address] [place] [address]Dr. Senthil Menchaca CBCon 06-08-2022 Erythrocyte distribution width (RBC) [Ratio] 13.6 % Normal 11.8-14.4 [facility] Comment on above: Performed By: #### L IP, HCG, CBC, CP #### [facility] [address] [place], [place] [address] [employer]: Ernst Dillard MD Hematocrit (Bld) [Volume fraction] 39.0 % Normal 36.3-47.1 [facility] Comment on above: Performed By: #### L IP, HCG, CBC, CP #### [facility] [address] [place], [place] [address] [employer]: Ernst Dillard MD Hemoglobin (Bld) [Mass/Vol] 13.2 g/dL Normal 11.9-15.1 [facility] Comment on above: Performed By: #### L IP, HCG, CBC, CP #### [address] [place], [place] [phone] [employer]: Ernst Dillard MD MCH (RBC) [Entitic mass] 31.4 pg Normal 25.2-33.5 [facility] Comment on above: Performed By: #### L IP, HCG, CBC, CP #### [address] [place], [place] [phone] [employer]: Ernst Dillard MD MCHC (RBC) [Mass/Vol] 33.8 g/dL Normal 28.4-34.8 [facility] Comment on above: Performed By: #### L IP, HCG, CBC, CP #### [address] [place], [place] [phone] [employer]: Ernst Dillard MD MCV (RBC) [Entitic vol] 92.6 fL Normal 82.6-102.9 M [facility] Comment on above: Performed By: #### L IP, HCG, CBC, CP #### [address] [place] [address] [employer] Manager: Ernst Dillard MD NRBC Automated 0.0 per 100 WBC Normal 0.0 [facility] Comment on above: Performed By: #### L IP, HCG, CBC, CP #### [address] [place], [place] [id number] [employer]: Ernst Dillard MD Platelet mean volume (Bld) [Entitic vol] 9.1 fL Normal 8.1-13.5 [facility] Comment on above: Performed By: #### L IP, HCG, CBC, CP #### [address] [place] [address] [employer]: Ernst Dillard MD Platelets (Bld) [#/Vol] 264 10*3/uL Normal 138-453 [facility] Comment on above: Performed By: #### L IP, HCG, CBC, CP #### [facility] [address] [place], [place] [id number] [employer]: Ernst Dillard MD RBC (Bld) [#/Vol] 4.21 10*6/uL Normal 3.95-5.11 [facility] Comment on above: Performed By: #### L IP, HCG, CBC, CP #### [facility] [address] [place], [place] [phone] [employer]: Ernst Dillard MD WBC (Bld) [#/Vol] 11.1 10*3/uL Normal 3.5-11.3 [facility] Comment on above: Performed By: #### L IP, HCG, CBC, CP #### [address] [place], [place] [phone] [employer]: Ernst Dillard MD Comp Metabolic Profon 2022 Albumin [Mass/Vol] 4.2 g/dL Normal 3.5-5.2 [facility] Comment on above: Performed By: #### L IP, HCG, CBC, CP #### [facility] [address] [place], [place] [phone] [employer]: Ernst Dillard MD Albumin/Glob Ratio 1.6 Normal 1.0-2.5 [facility] Comment on above: Performed By: #### L IP, HCG, CBC, CP #### [facility] [address] [place], [place] [address] [employer]: Ernst Dillard MD Alkaline Phos 68 U/L Normal 35-104 [facility] Comment on above: Performed By: #### L IP, HCG, CBC, CP #### [facility] [address] [place], [place] [address] [employer]: Ernst Dillard MD ALT [Catalytic activity/Vol] 20 U/L Normal 5-33 [facility] Comment on above: Performed By: #### L IP, HCG, CBC, CP #### [facility] [address] [place], [place] [phone] [employer]: Ernst Dillard MD Anion gap [Moles/Vol] 9 mmol/L Normal 9-17 [facility] Comment on above: Performed By: #### L IP, HCG, CBC, CP #### [facility] [address] [place], [place] [phone] [employer]: Ernst Dillard MD AST [Catalytic activity/Vol] 14 U/L Normal <32 [facility] Comment on above: Performed By: #### L IP, HCG, CBC, CP #### [facility] [address] [place], [place] [address] [employer] Manager: rEnst Dillard MD Bilirubin [Mass/Vol] 0.2 mg/dL Low 0.3-1.2 [facility] Comment on above: Performed By: #### L IP, HCG, CBC, CP #### [facility] [address] [place] [address] Dr[address] [place], [place] [phone] [employer]: Ernst Dillard MD BUN/CRE Ratio 12 Normal 9-20 [facility] Comment on above: Performed By: #### L IP, HCG, CBC, CP #### [facility] [address] [place], [place] [phone] [employer]: Ernst Dillard MD Calcium [Mass/Vol] 9.1 mg/dL Normal 8.6-10.4 [facility] Comment on above: Performed By: #### L IP, HCG, CBC, CP #### [facility] [address] [place] [address] Dr. [place], [place] [phone] [employer] Manager: Ernst Dillard MD Chloride [Moles/Vol] 103 mmol/L Normal 98-107 [facility] Comment on above: Performed By: #### L IP, HCG, CBC, CP #### [facility] [address] [place], [place] [address] [employer] Manager: Ernst Dillard MD CO2 [Moles/Vol] 28 mmol/L Normal 20-31 [facility] Comment on above: Performed By: #### L IP, HCG, CBC, CP #### [facility] [address] [place], [place] [address] [employer] Manager: Ernst Dillard MD Creatinine [Mass/Vol] 0.75 mg/dL Normal 0.50-0.90 [facility] Comment on above: Performed By: #### L IP, HCG, CBC, CP #### [facility] [address] [place], [place] [address] [employer] Manager: Ernst Dillard MD GFR/1.73 sq M.predicted among non-blacks MDRD (S/P/Bld) [Vol rate/Area] mL/min/{1.73_m2} Normal >60 [facility] Comment on above: Result Comment: These results [...] #### L IP, HCG, CBC, CP #### [facility] [address] [place], [place] [address] [employer] Manager: Ernst Dillard MD Glucose [Mass/Vol] 79 mg/dL Normal 70-99 [facility] Comment on above: Performed By: #### L IP, HCG, CBC, CP #### [facility] [address] [place] [address] [employer] Manager: Ernst Dillard MD Potassium [Moles/Vol] 4.0 mmol/L Normal 3.7-5.3 [facility] Comment on above: Performed By: #### L IP, HCG, CBC, CP #### [facility] [address] [place] [address] [employer] Manager: Ernst Dillard MD Protein [Mass/Vol] 6.8 g/dL Normal 6.4-8.3 [facility] Comment on above: Performed By: #### L IP, HCG, CBC, CP #### [facility] [address] [place] [address] [employer] Manager: Ernst Dillard MD Sodium [Moles/Vol] 140 mmol/L Normal 135-144 [facility] Comment on above: Performed By: #### L IP, HCG, CBC, CP #### [address] [place] [address] [employer] Manager: Ernst Dillard MD Urea nitrogen [Mass/Vol] 9 mg/dL Normal 6-20 [facility] Comment on above: Performed By: #### L IP, HCG, CBC, CP #### [address] [place] [address] [employer] Manager: Ernst Dillard MD HCG Screen, Bloodon 06-08-19 23 HCG Screen, Blood Negative Normal NEG [facility] Comment on above: Result Comment: Spec imens with hCG levels near the threshold of the test (25 mIU/mL) may give a negative or indeterminate result. In such cases, another test should be performed with a new specimen in 48-72 hours. If early is suspected clinically in this setting, correlation with quantitative serum b-hCG level is suggested. [facility] has confirmed the use of plasma for this test. This has not been cleared or approved by the U.S. Food and Drug Administration. The FDA has determined that such clearance is not necessary. Performed By: #### C P, CDP, MG, LIP #### [facility] [address] [place], [place] [address] [employer] Manager: Ernst Dillard MD Lipaseon 06-08-2022 Lipase [Catalytic activity/Vol] 22 U/L Normal 13-60 [facility] Comment on above: Performed By: #### L IP, HCG, CBC, CP #### [facility] [address] [place] [address] [employer] Manager: Ernst Dillard MD Microscopic Urinalysison Bacteria, UA 1+ Abnormal None [facility] Epithelial Cells UA 0 TO 2 [facility] Interpretation and review of laboratory results Abnormal [facility] RBC clumps Auto (Urine sed) [#/Area] 0 TO 2 [facility] WBC, UA 0 TO 2 [facility] UA w/Reflex Cultureon 2022 Bilirubin, SemiQt,Ur Negative Normal NEG [facility] Comment on above: Performed By: #### C P, CDP, MG, LIP #### [facility] [address] [place] [address] [employer]: Ernst Dillard MD Blood, Urine Negative Normal NEG [facility] Comment on above: Performed By: #### C P, CDP, MG, LIP #### [facility] [address] [place] [address] [employer] Manager: Ernst Dillard MD Clarity (U) Clear Normal CLEAR [facility] Comment on above: Performed By: #### C P, CDP, MG, LIP #### [facility] [address] [place], [place] [address] [employer] Manager: Ernst Dillard MD Color (U) Yellow Normal YEL [facility] Comment on above: Performed By: #### C P, CDP, MG, LIP #### [facility] [address] [place] [address] [employer] Manager: Ernst Dillard MD Glucose Ql (U) Negative Normal NEG [facility] Comment on above: Performed By: #### C P, CDP, MG, LIP #### [facility] [address] [place] [address] Dr. [place], [place] [address] [employer] Manager: Ernst Dillard MD Ketones Ql (U) Negative Normal NEG [facility] [place] [employer] Comment on above: Performed By: #### C P, CDP, MG, LIP #### [address] [place], [place] [address] [employer] Manager: Ernst Dillard MD Leukocyte esterase Test strip Ql (U) Negative Normal NEG [facility] Comment on above: Performed By: #### C P, CDP, MG, LIP #### [address] [place], [place] [address] [employer] Manager: Ernst Dillard MD Nitrite,Ur Negative Normal NEG [facility] Comment on above: Performed By: #### C P, CDP, MG, LIP #### [address] [place], [place] [address] [employer] Manager: Ernst Dillard MD PH,Ur 6.0 Normal 5.0-9.0 [facility] Comment on above: Performed By: #### C P, CDP, MG, LIP #### [address] [place], [place] [address] [employer] Manager: Ernst Dillard MD Protein Ql (U) Negative Normal NEG [facility] [place] [employer] Comment on above: Performed By: #### C P, CDP, MG, LIP #### [address] [place], [place] [address] [employer] Manager: Ernst Dillard MD Spec. [place],Ur <1.005 Low 1.010-1.02 0 [facility] Comment on above: Performed By: #### C P, CDP, MG, LIP #### [address] [place], [facility] [employer]: Ernst Dillard MD Urobilinogen,Ur Normal Normal NORM [facility] Comment on above: Performed By: #### C P, CDP, MG, LIP #### [facility] [address] [place] [address] [employer] Manager: Ernst Dillard MD Urinalysis with Reflex to Cu ltureon 06-08-2022 Bilirubin Urine Negative NEGATIVE [facility] Color, UA Yellow Yellow [facility] Glucose Auto test strip (U) [Mass/Vol] Negative NEGATIVE [facility] Interpretation and review of laboratory results Abnormal [facility] Ketones (U) [Mass/Vol] Negative NEGATIVE [facility] Leukocyte esterase Auto test strip Ql (U) Negative NEGATIVE [facility] Nitrite Auto test strip Ql (U) Negative NEGATIVE [facility] Protein (U) [Mass/Vol] 6.0 mg/dL 5.0 - 9.0 [facility] Protein (U) [Mass/Vol] Negative NEGATIVE [facility] Specific [place], UA Low 1.010 - 1.020 [facility] Turbidity UA Clear Clear [facility] Urine Hgb Negative NEGATIVE [facility] Urobilinogen, Urine Normal Normal [facility] Urinalysis,Microon 3 Bacteria 1+ Abnormal NONE [facility] Comment on above: Performed By: #### C P, CDP, MG, LIP #### [facility] [address] [place] [address] [employer] Manager: Ernst Dillard MD Epithelial cells LM Ql (Urine sed) 0 TO 2 Normal 0-25 [facility] Comment on above: Performed By: #### C P, CDP, MG, LIP #### [facility] [address] [place] [address] [employer] Manager: Ernst Dillard MD Urine RBC's 0 TO 2 Normal 0-2 [facility] Comment on above: Performed By: #### C P, CDP, MG, LIP #### [facility] [address] [place] [address] [employer]ation Manager: Ernst Dillard MD Urine WBC's 0 TO 2 Normal 0-5 [facility] Comment on above: Performed By: #### C P, CDP, MG, LIP #### [facility] [address] [place], [place] [address] [employer] Manager: Ernst Dillard MD CBCon 06-07-2022 Hematocrit (Bld) [Volume fraction] 39.0 % 36.3 - 47.1 % [facility] Hemoglobin (Bld) [Mass/Vol] 13.2 g/dL 11.9 - 15.1 g/dL [facility] MCH (RBC) [Entitic mass] 31.4 pg 25.2 - 33.5 pg [facility] MCHC (RBC) [Mass/Vol] 33.8 g/dL 28.4 - 34.8 g/dL [facility] MCV (RBC) [Entitic vol] 92.6 fL 82.6 - 102.9 fL [facility] NRBC Automated 0.0 0.0 per 100 WBC [facility] Platelet distribution width (Bld) [Ratio] 13.6 % 11.8 - 14.4 % [facility] Platelet mean volume (Bld) [Entitic vol] 9.1 fL 8.1 - 13.5 fL [facility] Platelets (Bld) [#/Vol] 264 10*3/uL [facility] RBC (Bld) [#/Vol] 4.21 10*6/uL 3.95 - 5.11 m/uL [facility] WBC (Bld) [#/Vol] 11.1 10*3/uL [facility] Comprehensive Metabolic Pane ayush 06-07-2022 Albumin [Mass/Vol] 4.2 g/dL 3.5 - 5.2 g/dL [facility] Albumin/Globulin [Mass ratio] 1.6 {ratio} 1.0 - 2.5 [facility] ALP [Catalytic activity/Vol] 68 U/L 35 - 104 U/L [facility] ALT [Catalytic activity/Vol] 20 U/L 5 - 33 U/L [facility] Anion gap [Moles/Vol] 9 mmol/L 9 - 17 mmol/L [facility] AST [Catalytic activity/Vol] 14 U/L NINF - 32 U/L [facility] Bilirubin [Mass/Vol] 0.2 mg/dL Low 0.3 - 1 .2 mg/dL [facility] Calcium [Mass/Vol] 9.1 mg/dL 8.6 - 10. 4 mg/dL [facility] Chloride [Moles/Vol] 103 mmol/L 98 - 10 7 mmol/L [facility] CO2 [Moles/Vol] 28 mmol/L 20 - 31 mmol/L [facility] Creatinine [Mass/Vol] 0.75 mg/dL 0.50 - 0.90 mg/dL [facility] GFR/1.73 sq M.predicted MDRD (S/P/Bld) [Vol rate/Area] - PINF [facility] Comment on above: These results are [...] [Mass/Vol] 79 mg/dL 70 - 99 mg/dL [facility] Interpretation and review of laboratory results Abnormal [facility] Potassium [Moles/Vol] 4.0 mmol/L 3.7 - 5.3 mmol/L [facility] Protein [Mass/Vol] 6.8 g/dL 6.4 - 8.3 g/dL [facility] Sodium [Moles/Vol] 140 mmol/L 135 - 144 mmol/L [facility] Urea nitrogen [Mass/Vol] 9 mg/dL 6 - 20 mg/dL [facility] Urea nitrogen/Creatinine (Bld) [Mass ratio] 12 9 - 20 [facility] HCG Qualitative, Serumon hCG Qual Negative NEGATIVE [facility] Comment on above: Specimens with hCG l evels near the threshold of the test (25 mIU/mL) may give a negative or indeterminate result. In such cases, another test should be performed with a new specimen in 48-72 hours. If early is suspected clinically in this setting, correlation with quantitative serum b-hCG level is suggested. [facility] has confirmed the use of plasma for this test. This has not been cleared or approved by the U.S. Food and Drug Administration. The FDA has determined that such clearance is not necessary. [facility] Lipaseon 06-07-2022 Lipase [Catalytic activity/Vol] 22 U/L 13 - 60 U/L [facility] No Panel Informationon 06-07 [facility] AMYLASEon 01-20-2022 Amylase [Catalytic activity/Vol] 55 U/L Normal 25-115 [facility] Comment on above: Performed By: #### E STAS PREGU #### [facility] [address] [place] [address] [address] Senthil Menchaca CBC AUTO DIFFon 01-20-2022 BASO # 0.1 103/ul Normal 0.0-0.1 [facility] Comment on above: Performed By: #### C BC ####[facility] [address] [place] [address]Dr. Senthil Menchaca Basophils/100 WBC (Bld) 0.7 % Normal 0.2-2.0 [facility] Comment on above: Performed By: #### C BC ####[facility] [address] [place] [address]Dr. Senthil Menchaca EO # 0.4 103/ul Normal 0.0-0.7 [facility] Comment on above: Performed By: #### C BC ####[facility] [address] [place] [address]DrTonya Menchaca Eosinophils/100 WBC (Bld) 5.2 % Normal 0.9-7.0 [facility] Comment on above: Performed By: #### C BC ####[facility] [address] [place] [address]Dr. Senthil Menchaca Erythrocyte distribution width (RBC) [Ratio] 14.9 % Normal 11.0-15.0 [facility] Comment on above: Performed By: #### C BC ####[facility] [address] [place] [address]Dr. Senthil Menchaca Hematocrit (Bld) [Volume fraction] 42.0 % Normal 36.0-48.0 [facility] Comment on above: Performed By: #### C BC ####[facility] [address] [place], [place] [address]Dr. Naomimikel Menchaca Hemoglobin (Bld) [Mass/Vol] 13.8 g/dL Normal 12.0-16.0 [facility] Comment on above: Performed By: #### C BC ####[facility] [address] [place], [place] [address]Dr. Senthil Menchaca IG # 0.02 10e3/ul Normal 0.00-0.03 [facility] Comment on above: Performed By: #### C BC ####[facility] [address] [place], [place] [address]Dr. Naomimikel Menchaca IG % 0.2 % Normal 0.0-0.5 [facility] Comment on above: Performed By: #### C BC ####[facility] [address] [place], [place] [address]Dr. Senthil Menchaca LYMPH # 2.3 103/ul Normal 1.2-3.8 [facility] Comment on above: Performed By: #### C BC ####[facility] [address] [place], [place] [address]Dr. Senthil Menchaca Lymphocytes/100 WBC (Bld) 26.6 % Normal 20.5-60.0 [facility] Comment on above: Performed By: #### C BC ####[facility] Levaxj[address]ou[address] [place], [place] [address]Dr. Senthil Menchaca MANUAL DIFF REQ NO Normal [facility] Comment on above: Performed By: #### C BC ####[facility] [address] [place], [place] [address]Dr. Senthil Menchaca MCH (RBC) [Entitic mass] 30.9 pg Normal 26.7-34.0 [facility] Comment on above: Performed By: #### C BC ####[facility] [address] [place] [address]Dr. Senthil Menchaca MCHC (RBC) [Mass/Vol] 32.9 g/dL Normal 29.9-35.2 [facility] Comment on above: Performed By: #### C BC ####[facility] [address] [place] [address]Dr. Senthil Menchaca MCV (RBC) [Entitic vol] 94.0 fL Normal 81.0-99.0 [facility] Comment on above: Performed By: #### C BC ####[facility] [address] [place] [address]Dr. Senthil Menchaca MONO # 1.0 103/ul Critically high 0.3-0.8 [facility] Comment on above: Performed By: #### C BC ####[facility] [address] [place], [place] [address]Dr. Senthil Menchaca Monocytes/100 WBC (Bld) 11.6 % Normal 1.7-12.0 [facility] Comment on above: Performed By: #### C BC ####[facility] V[address]ue[address] [place], [place] [address]Dr. Senthil Menchaca NEUT # 4.8 103/ul Normal 1.4-6.5 [facility] Comment on above: Performed By: #### C BC ####[facility] [address] [place] [address]Dr. Senthil Menchaca Neutrophils/100 WBC (Bld) 55.7 % Normal 43.0-75.0 [facility] Comment on above: Performed By: #### C BC ####[facility] [address]uzcsf[address] [place] [address]Dr. Senthil Menchaca Platelet mean volume (Bld) [Entitic vol] 9.4 fL Critically low 9.5-13.5 [facility] Comment on above: Performed By: #### C BC ####[facility] [address] [place] [id number]. Senthil Menchaca PLT 250 103/ul Normal 150-450 [facility] Comment on above: Performed By: #### C BC ####[facility] [address] [place] [address]Dr. Senthil Menchaca RBC 4.47 106/ul Normal 4.20-5.40 [facility] Comment on above: Performed By: #### C BC ####[facility] [address] [place] [address]Dr. Senthil Menchaca WBC 8.5 103/ul Normal 4.0-11.0 [facility] Comment on above: Performed By: #### C BC ####[facility] [address] [place] [address]Dr. Senthil Nikolai LIPASEon 01-20-2022 Lipase [Catalytic activity/Vol] 52.0 U/L Critically low 73.0-393.0 [facility] Comment on above: Performed By: #### A MY, LIPA, CMP ####[facility] [address] [place] [address]Dr. Senthil Menchaca PROF 14(COMP METB)on 022 Albumin [Mass/Vol] 3.8 g/dL Normal 3.4-5.0 [facility] Comment on above: Performed By: #### A MY, LIPA, CMP ####[facility] [address] [place] [address]Dr. Senthil Menchaca Albumin/Globulin [Mass ratio] 1.1 {ratio} Normal [facility] Comment on above: Performed By: #### A MY, LIPA, CMP ####[facility] [address] [place] [address]Dr. Senthil Menchaca ALP [Catalytic activity/Vol] 60 U/L Normal 46-116 [facility] Comment on above: Performed By: #### A MY, LIPA, CMP ####[facility] [address]qtvtj[address] [place] [address]Dr. Senthil Menchaca ALT [Catalytic activity/Vol] 33 U/L Normal 14-59 [facility] Comment on above: Performed By: #### A MY LIPA, CMP ####[facility] [address] [place] [address]Dr. Senthil Menchaca Anion gap [Moles/Vol] 12.6 mmol/L Normal [facility] Comment on above: Performed By: #### A MY LIPA, CMP ####[facility] [address]lus[address] [place] [address]Dr. Senthil Menchaca AST [Catalytic activity/Vol] 12 U/L Critically low 15-37 [facility] Comment on above: Performed By: #### A MY LIPA, CMP ####[facility] [address]txqpb[address] [place] [address]Dr. Senthil Menchaca Bilirubin [Mass/Vol] 0.2 mg/dL Normal 0.2-1.0 [facility] Comment on above: Performed By: #### A MY LIPA, CMP ####[facility] [address] [place], [place] [address]Dr. Senthil Menchaca Calcium [Mass/Vol] 8.4 mg/dL Critically low 8.5-10.1 [facility] Comment on above: Performed By: #### A MY LIPA, CMP ####[facility] [address]uz[address] [place], [place] [address]Dr. Senthil Menchaca Chloride [Moles/Vol] 104 mmol/L Normal 98-107 [facility] Comment on above: Performed By: #### A MY LIPA, CMP ####[facility] [address]fs[address]qx[address] [place], [place] [address]Dr. Senthil Menchaca CO2 [Moles/Vol] 29.1 mmol/L Normal 21.0-32.0 [facility] Comment on above: Performed By: #### A MY LIPA, CMP ####[facility] [address] [place], [place] [address]Dr. Senthil Menchaca Creatinine [Mass/Vol] 0.89 mg/dL Normal 0.55-1.02 [facility] Comment on above: Performed By: #### A MY, LIPA, CMP ####[facility] [address] [place] [id number]. Senthil Menchaca EGFR-AF ALBANIAN >60 Normal >=60 [facility] Comment on above: Performed By: #### A LAZARO GUEVARA, CMP ####[facility] [address] [place] [address]Dr. Senthil Menchaca EGFR-NON AF ALBANIAN >60 Normal >=60 [facility] Comment on above: Performed By: #### A LAZARO GUEVARA, CMP ####[facility] [address]bfel[address] [place] [address]Dr. Senthil Menchaca Globulin (S) [Mass/Vol] 3.4 g/dL Normal [facility] Comment on above: Performed By: #### A LAZARO GUEVARA, CMP ####[facility] Y[address]arij[address] [place], [place] [address]Dr. Senthil Menchaca Glucose [Mass/Vol] 81 mg/dL Normal 74-106 [facility] Comment on above: Performed By: #### A LAZARO GUEVARA, CMP ####[facility] Vtsfxoogra[address] [place], [place] [address]Dr. Senthil Menchaca Potassium [Moles/Vol] 3.7 mmol/L Normal 3.5-5.1 [facility] Comment on above: Performed By: #### A LAZARO GUEVARA, CMP ####[facility] [address]gs[address] [place], [place] [address]Dr. Senthil Menchaca Protein [Mass/Vol] 7.2 g/dL Normal 6.4-8.2 [facility] Comment on above: Performed By: #### A TAMEKA LIPA, CMP ####[facility] [address] [place] [address]Dr. Senthil Menchaca Sodium [Moles/Vol] 142 mmol/L Normal 136-145 [facility] Comment on above: Performed By: #### A TAMEKA LIPA, CMP ####[facility] [address] [place] [address]Dr. Senthil Menchaca Urea nitrogen [Mass/Vol] 12.0 mg/dL Normal 7.0-18.0 [facility] Comment on above: Performed By: #### A LAZARO GUEVARA, CMP ####[facility] [address]six[address]kg[address] [place] [phone] Menchaca Urea nitrogen/Creatinine [Mass ratio] 13.5 mg/mg Normal [facility] Comment on above: Performed By: #### A TAMEKA LIPA, CMP ####[facility] [address]ceax[address] [place] [phone] Menchaca US SINGLE QUAD RT UPPERon US [...] thickening, or pericholecystic free fluid. Negative sonographic Rasuch's sign. BILIARY: No abnormal dilation or stones. [...] KIRK SHANNON Date: 2022-01-20 08:50 Normal [facility] ER URINE PROFILEon 2 Bilirubin Ql (U) Negative Normal NEGATIVE [facility] Comment on above: Performed By: #### E RUR, PREGU #### [facility] [address] [address] [address] Senthil Menchaca Clarity (U) CLEAR Normal CLEAR [facility] Comment on above: Performed By: #### E RUR, PREGU #### [facility] [address] [address] [address] Senthil Menchaca Color (U) LT. YELLOW Normal YELLOW [facility] Comment on above: Performed By: #### E RUR, PREGU #### [facility] [address] [place] [address] Dr. Senthil SHIPLEY A micrscopic examina tion will be performed if indicated. Normal [facility] Comment on above: Performed By: #### E RUR, PREGU #### [facility] [address] [place] [address] Dr. Senthil Menchaca Glucose Ql (U) Negative Normal NEGATIVE [facility] Comment on above: Performed By: #### E RUR, PREGU #### [facility] [address] [place] [address] Dr. Senthil Menchaca Hemoglobin Ql (U) Negative Normal NEGATIVE [facility] Comment on above: Performed By: #### E RUR, PREGU #### [facility] [address] [place] [address] Dr. Senthil Menchaca Ketones Ql (U) Negative Normal NEGATIVE [facility] Comment on above: Performed By: #### E RUR, PREGU #### [facility] [address] [place] [address] Dr. Senthil Menchaca LEUKOCYTES Negative Normal NEGATIVE [facility] Comment on above: Performed By: #### E RUR, PREGU #### [facility] [address] [place] [address] Dr. Senthil Menchaca Nitrite Ql (U) Negative Normal NEGATIVE [facility] Comment on above: Performed By: #### E RUR, PREGU #### [facility] [address] [place] [address] Dr. Senthil Menchaca pH (U) 6.0 [pH] Normal 5-9 [facility] Comment on above: Performed By: #### E RUR, PREGU #### [facility] [address] [place] [address] Dr. Senthil Menchaca SPEC GRAVITY 1.025 Normal 1.005-<=1. 025 [facility] Comment on above: Performed By: #### E RUR, PREGU #### [facility] [address] [place] [address] Dr. Senthil Menchaca UA PROTEIN Negative Normal NEGATIVE/ TRACE [facility] Comment on above: Performed By: #### E RUR, PREGU #### [facility] [address] [address] [address] Senthil Menchaca UR MICRO IND NOT INDICATED Normal [facility] Comment on above: Performed By: #### E RUR, PREGU #### [facility] [address] [address] [address] Senthil Mnechaca Urobilinogen Qn (U) 0.2 {Sherley'U}/dL Normal 0.2 - 1. 0 [facility] Comment on above: Performed By: #### E RUR, PREGU #### [facility] [address] [address] [address] Senthil Menchaca URon 01-19-2022 , QUAL Negative Normal NEGATIVE [facility] Comment on above: Performed By: #### E RUR, PREGU #### [facility] [address] [place] [address] Dr. Senthil Menchaca [place] GASTRIC EMPTYINGon 2021 Gastric emptying is within normal limits. [facility] CONSOLIDATED EXAMINATION: NUCLEAR MEDICINE GASTRIC EMPTYING STUDY [...] retention, hiatal hernia or reflux was observed. [facility] RIS CONSOLIDATED Rodrigue Galo MD - 12/23/2021 EXAMINATION: [...] IMPRESSION: Gastric emptying is within normal limits. [employer] Work Phone: [place] GASTRIC EMPTYINGOrdered B y: Rodrigue Clover on 12-23-2021 [employer] Phone: [place] GASTRIC EMPTYINGon 2021 Radiology Study observation (narrative) [employer] Phone: Laboratory - Chemistry and C hemistry - challengeOrdered By: Srinivasa Jhaveri on 12-11-2021 Ketones Ql (U) Negative (NEG ) [facility] Work Phone: Comment on above: Note: Responsible Ob ware server: MAGALI YBARRA ([id number]) Laboratory - Specimen inform ationOrdered By: Srinivasa Jhaveri on 12-11-2021 Clarity (U) Clear (CLEAR ) [facility] [employer] [facility] Work Phone: Comment on above: Note: Responsible Ob ware server: MAGALI YBARRA ([id number]) Color (U) Yellow (YEL ) [facility] Work Phone: Comment on above: Note: Responsible Ob ware server: MAGALI YBARRA ([id number]) Laboratory - UrinalysisOrder ed By: Srinivasa Jhaveri on 12-11-2021 Epithelial cells LM Ql (Urine sed) 2 TO 5 /HPF (0-5 ) [facility] Work Phone: Comment on above: Note: Responsible Ob ware server: MAGALI YBARRA ([id number]) Leukocyte esterase Test strip Ql (U) SMALL Abnormal (NEG ) [facility] Work Phone: Comment on above: Note: Responsible Ob ware server: MAGALI YBARRA ([id number]) No Panel InformationOrdered By: Srinivasa Jhaveri on 12-11-2021 Bilirubin, SemiQt,Ur Negative (NEG ) [facility] Work Phone: Comment on above: Note: Responsible Ob ware server: MAGALI YBARRA ([id number]) Blood, Urine Negative (NEG ) [facility] Work Phone: Comment on above: Note: Responsible Ob ware server: MAGALI YBARRA ([id number]) Casts 0 TO 2 HYALINE /LPF (0-8 ) [facility] Work Phone: Comment on above: Note: Reference rang e defined for non-centrifuged specimen.Responsible Observer: MAGALI YBARRA ([id number]) Chlamydia Probe, Ur Negative (NEG ) [facility] Work Phone: Comment on above: [...] CFORTYEIGH AUTOFILE (3030) Glucose,Semi-qnt,Ur Negative (NEG ) [facility] Work Phone: Comment on above: Note: Responsible Ob ware server: MAGALI YBARRA ([id number]) Gonorrhea Probe, Ur Negative (NEG ) [facility] Work Phone: Comment on above: [...] CFORTYEIGH AUTOFILE (3030) Nitrite,Ur Negative (NEG ) [facility] Work Phone: Comment on above: Note: Responsible Ob ware server: MAGALI YBARRA ([id number]) PH,Ur 8.5 High (5.0-8.0 ) [facility] Work Phone: Comment on above: Note: Responsible Ob ware server: MAGALI YBARRA ([id number]) Protein, Semi-qnt,Ur Negative (NEG ) [facility] Work Phone: Comment on above: Note: Responsible Ob ware server: MAGALI YBARRA ([id number]) Reported Physicians See Note [facility] Work Phone: Comment on above: Note: Reported Physi cians:Ordering: Srinivasa JhaveriAttending: Cathryn JhaveriieReferring: Srinivasa Jhaveri Source: .URINE [facility] Work Phone: Comment on above: Note: Responsible Ob ware server: SHERYL WEISS ([id number]) Spec. [place],Ur 1.011 (1.005-1.0 30 ) [facility] Work Phone: Comment on above: Note: Responsible Ob ware server: MAGALI YBARRA ([id number]) Trich Vag, Molecular Positive Abnormal (NEG ) [facility] Work Phone: Comment on above: Note: T. [...] RBC's 2 TO 5 /HPF (0-4 ) [facility] Work Phone: Comment on above: Note: Reference rang e defined for non-centrifuged specimen.Responsible Observer: MAGALI YBARRA ([id number]) Urine WBC's None /HPF (0-5 ) [facility] Work Phone: Comment on above: Note: Responsible Ob ware server: MAGALI YBARRA ([id number]) Urobilinogen,Ur Normal (NORM ) [facility] Work Phone: Comment on above: Note: Responsible Ob ware server: MAGALI YBARRA ([id number]) Clostridium Difficile Toxin/ Antigenon 12-08-2021 C DIFF AG + TOXIN INDETERMINATE: Refle x testing to molecular method Abnormal NEGATIVE [facility] Interpretation and review of laboratory results Abnormal [facility] Specimen Description .FECES [facility] CBC with Auto Differentialon 11-12-2021 Absolute Eos # 0.13 [facility] Absolute Immature Granulocyte [facility] Absolute Lymph # 1.19 [facility] Absolute [place] # 0.61 [facility] Basophils (Bld) [#/Vol] 0.06 10*3/uL [facility] Basophils/100 WBC (Bld) 1 % 0 - 2 % [facility] Eosinophils/100 WBC (Bld) 2 % 1 - 4 % [facility] Hematocrit (Bld) [Volume fraction] 45.4 % 36.3 - 47.1 % [facility] Hemoglobin (Bld) [Mass/Vol] 15.0 g/dL 11.9 - 15.1 g/dL [facility] Immature granulocytes/100 WBC (Bld) 0 % 0 [facility] Interpretation and review of laboratory results Abnormal [facility] Lymphocytes/100 WBC (Bld) 18 % Low 24 - 43 % [facility] MCH (RBC) [Entitic mass] 30.9 pg 25.2 - 33.5 pg [facility] MCHC (RBC) [Mass/Vol] 33.0 g/dL 28.4 - 34.8 g/dL [facility] MCV (RBC) [Entitic vol] 93.6 fL 82.6 - 102.9 fL [facility] Monocytes/100 WBC (Bld) 9 % 3 - 12 % [facility] NRBC Automated 0.0 0.0 per 100 WBC [facility] Platelet distribution width (Bld) [Ratio] 13.8 % 11.8 - 14.4 % [facility] Platelet mean volume (Bld) [Entitic vol] 9.2 fL 8.1 - 13.5 fL [facility] Platelets (Bld) [#/Vol] 270 10*3/uL [facility] RBC (Bld) [#/Vol] 4.85 10*6/uL 3.95 - 5.11 m/uL [facility] Segmented neutrophils/100 WBC (Bld) 70 % High 36 - 65 % [facility] Segs Absolute 4.52 [facility] WBC (Bld) [#/Vol] 6.5 10*3/uL [facility] CMPon 11-12-2021 Albumin [Mass/Vol] 5.1 g/dL 3.5 - 5.2 g/dL [facility] Albumin/Globulin [Mass ratio] 2.0 {ratio} 1 - 2.5 [facility] ALP (Bld) [Catalytic activity/Vol] 57 U/L 35 - 104 U/L [facility] ALT [Catalytic activity/Vol] 12 U/L 5 - 33 U/L [facility] Anion gap [Moles/Vol] 10 mmol/L 9 - 17 mmol/L [facility] AST [Catalytic activity/Vol] 13 U/L NINF - 32 U/L [facility] Bilirubin [Mass/Vol] 0.17 mg/dL Low 0.3 - 1 .2 mg/dL [facility] Calcium [Mass/Vol] 9.6 mg/dL 8.6 - 10. 4 mg/dL [facility] Chloride [Moles/Vol] 101 mmol/L 98 - 10 7 mmol/L [facility] CO2 [Moles/Vol] 28 mmol/L 20 - 31 mmol/L [facility] Creatinine [Mass/Vol] 0.8 mg/dL 0.5 - 0.9 mg/dL [facility] Free PSA/Total PSA [Mass fraction] 7.7 g/dL 6.4 - 8.3 g/dL [facility] GFR >60 60 - PI NF mL/min [facility] GFR Non- >60 60 - PINF mL/min [facility] Glucose [Mass/Vol] 97 mg/dL 70 - 99 mg/dL [facility] Interpretation and review of laboratory results Abnormal [facility] Potassium [Moles/Vol] 3.8 mmol/L 3.7 - 5.3 mmol/L [facility] Sodium [Moles/Vol] 139 mmol/L 135 - 144 mmol/L [facility] Urea nitrogen (BldV) [Mass/Vol] 7 mg/dL 6 - 20 mg/dL [facility] Urea nitrogen/Creatinine (Bld) [Mass ratio] 9 9 - 20 [facility] COVID-19, Rapidon 11-12-2021 SARS-CoV-2 (COVID-19) RNA EVELIA+probe Ql (Unsp spec) Not detected Not Detected [facility] Comment on above: Rapid NAAT: The [...] management decisions. Fact sheet for Healthcare Providers: https://www.fda.gov/media/778334/download Fact sheet for Patients: https://www.fda.gov/media/210372/download Methodology: Isothermal Nucleic Acid Amplification Specimen Description .NASOPHARYNGEAL SWAB [facility] CT ABDOMEN PELVIS W IV CONTR AST [...] for aneurysm Bones/Soft Tissues: No acute abnormality PN RIS CONSOLIDATED Torres Rivera MD - 11/12/2021 [...] No acute abnormality IMPRESSION: No acute abnormality [facility] Work Phone: Radiology Study observation (narrative) J[employer]EL[email or web address] Work Phone: CT ABDOMEN PELVIS W IV CONTR AST Additional Contrast? NoneOrdered By: Torres Rivera on 11-12-2021 [employer] Work Phone: HCG Qualitative, Serumon hCG Qual Negative NEGATIVE [facility] Comment on above: Specimens with hCG l evels near the threshold of the test (25 mIU/mL) may give a negative or indeterminate result. In such cases, another test should be performed with a new specimen in 48-72 hours. If early is suspected clinically in this setting, correlation with quantitative serum b-hCG level is suggested. [employer] has confirmed the use of plasma for this test. This has not been cleared or approved by the U.S. Food and Drug Administration. The FDA has determined that such clearance is not necessary. [facility] Laboratory - Chemistry and C hemistry - challengeon 11-12-2021 GFR/1.73 sq M.predicted MDRD (S/P/Bld) [Vol rate/Area] [facility] [employer] Comment on above: Average GFR for 30-3 9 years old: 107 mL/min/1.73sq m Chronic Kidney Disease: <60 mL/min/1.73sq m Kidney failure: <15 mL/min/1.73sq m eGFR calculated using average adult body mass. Additional eGFR calculator available at: http://www.Deltek.E Ink/multiple_crcl_2012.htm Stage 1: Some kidney damage normal GFR Stage 2: Mild kidney damage GFR 60-89 Stage 3: Moderate kidney damage GFR 30-59 Stage 4: Severe kidney damage GFR 15-29 Stage 5: Severe kidney damage GFR <15 ESRD - chronic treatment by dialysis or transplant Urinalysis with Microscopico n 11-12-2021 - [facility] [employer] Bacteria, UA TRACE Abnormal None [facility] Bilirubin Urine Negative NEGATIVE [facility] [email or web address] Color, UA Yellow Yellow [facility] Epithelial Cells UA 0 TO 2 [facility] [employer] Glucose, Ur Negative NEGATIVE [facility] Interpretation and review of laboratory results Abnormal [facility] Ketones Ql (U) Negative NEGATIVE [facility] Leukocyte esterase Test strip Ql (U) TRACE Abnormal NEGATIVE [facility] Mucus, UA TRACE Abnormal None [facility] Nitrite, Urine Negative NEGATIVE [facility] pH, UA 7.0 5 - 9 [facility] Protein, UA Negative NEGATIVE [facility] RBC, UA None [facility] Specific [place], UA Low 1.01 - 1.02 [facility] Turbidity UA Clear Clear [facility] Urine Hgb Negative NEGATIVE [facility] Urobilinogen, Urine Normal Normal [facility] WBC, UA 2 TO 5 [facility] , Urineon 2 Beta HCG ( test) Ql (U) Negative NEGATIVE [facility] Comment on above: Specimens with hCG l evels near the threshold of the test (25 mIU/mL) may give a negative or indeterminate result. In such cases, another test should be performed with a new specimen in 48-72 hours. If early is suspected clinically in this setting, correlation with quantitative serum b-hCG level is suggested. [employer] has confirmed the use of plasma for this test. This has not been cleared or approved by the U.S. Food and Drug Administration. The FDA has determined that such clearance is not necessary. [facility] Urinalysis with Microscopico n 09-01-2021 - [facility] Bacteria, UA TRACE Abnormal None [facility] Bilirubin Urine Negative NEGATIVE [facility] Color, UA Yellow Yellow [facility] Epithelial Cells UA 5 TO [address] [facility] Glucose, Ur Negative NEGATIVE [facility] Interpretation and review of laboratory results Abnormal [facility] Ketones Ql (U) Negative NEGATIVE [facility] Leukocyte esterase Test strip Ql (U) Negative NEGATIVE [facility] Nitrite, Urine Negative NEGATIVE [facility] pH, UA 7.0 [facility] Protein, UA Negative NEGATIVE [facility] RBC, UA 0 TO 2 [facility] [facility] Specific [place], UA 1.015 [facility] Turbidity UA Clear Clear [facility] Urine Hgb Negative NEGATIVE [facility] Urobilinogen, Urine Normal Normal [facility] WBC, UA 0 TO 2 [facility] CBC with Auto Differentialon 08-11-2021 Absolute Eos # 0.19 [facility] th Absolute Immature Granulocyte 0.05 [facility] Absolute Lymph # 1.42 [facility] Absolute [place] [facility].84 [facility] Basophils (Bld) [#/Vol] 0.06 10*3/uL [facility] Basophils/100 WBC (Bld) 0 % 0 - 2 % [facility] Eosinophils/100 WBC (Bld) 1 % 1 - 4 % [facility] Hematocrit (Bld) [Volume fraction] 42.2 % 36.3 - 47.1 % [facility] Hemoglobin.gastrointest inal spec 1 Ql (Stl) 13.7 g/dL 11.9 - 15.1 g/dL [facility] Immature granulocytes/100 WBC (Bld) 0 % 0 [facility] Interpretation and review of laboratory results Abnormal [facility] Lymphocytes/100 WBC (Bld) 11 % Low 24 - 43 % [facility] MCH (RBC) [Entitic mass] 30.9 pg 25.2 - 33.5 pg [facility] MCHC (RBC) [Mass/Vol] 32.5 g/dL 28.4 - 34.8 g/dL [facility] MCV (RBC) [Entitic vol] 95.3 fL 82.6 - 102.9 fL [facility] Monocytes/100 WBC (Bld) 6 % 3 - 12 % [facility] NRBC Automated 0.0 0.0 per 100 WBC [facility] Platelet distribution width (Bld) [Ratio] 13.4 % 11.8 - 14.4 % [facility] Platelet mean volume (Bld) [Entitic vol] 9.2 fL 8.1 - 13.5 fL [facility] Platelets (Bld) [#/Vol] 298 10*3/uL [facility] RBC (Bld) [#/Vol] 4.43 10*6/uL 3.95 - 5.11 m/uL [facility] Segmented neutrophils/100 WBC (Bld) 82 % High 36 - 65 % [facility] Segs Absolute 10.86 High [facility] h WBC (Bld) [#/Vol] 13.4 10*3/uL High [facility] COVID-19, Rapidon 08-11-2021 SARS-CoV-2 (COVID-19) RNA EVELIA+probe Ql (Unsp spec) Not detected Not Detected [facility] Comment on above: Rapid NAAT: [...] management decisions. Fact sheet for Healthcare Providers: https://www.fda.gov/media/151585/download Fact sheet for Patients: https://www.fda.gov/media/850515/download Methodology: Isothermal Nucleic Acid Amplification Specimen Description .NASOPHARYNGEAL SWAB [facility] Comprehensive Metabolic Pane ayush 08-11-2021 Albumin [Mass/Vol] 4.2 g/dL 3.5 - 5.2 g/dL [facility] Albumin/Globulin [Mass ratio] 1.9 {ratio} [facility] ALP (Bld) [Catalytic activity/Vol] 50 U/L 35 - 104 U/L [facility] ALT [Catalytic activity/Vol] 13 U/L 5 - 33 U/L [facility] Anion gap [Moles/Vol] 7 mmol/L Low 9 - 17 mmol/L [facility] AST [Catalytic activity/Vol] 16 U/L <32 [facility] Bilirubin [Mass/Vol] 0.38 mg/dL 0.3 - 1 .2 mg/dL [facility] Calcium [Mass/Vol] 8.8 mg/dL 8.6 - 10. 4 mg/dL [facility] Chloride [Moles/Vol] 104 mmol/L 98 - 10 7 mmol/L [facility] CO2 [Moles/Vol] 27 mmol/L 20 - 31 mmol/L [facility] Creatinine [Mass/Vol] 0.72 mg/dL 0.50 - 0.90 mg/dL [facility] Free PSA/Total PSA [Mass fraction] 6.4 g/dL 6.4 - 8.3 g/dL [facility] [employer] GFR >60 >60 mL/min [facility] GFR Non- >60 >60 mL/min [facility] Glucose [Mass/Vol] 102 mg/dL High 70 - 99 mg/dL [facility] [employer] Interpretation and review of laboratory results Abnormal [facility] [employer] Potassium [Moles/Vol] 3.6 mmol/L Low 3.7 - 5.3 mmol/L [facility] Sodium [Moles/Vol] 138 mmol/L 135 - 144 mmol/L [facility] Urea nitrogen (BldV) [Mass/Vol] 6 mg/dL 6 - 20 mg/dL [facility] Urea nitrogen/Creatinine (Bld) [Mass ratio] 8 Low [facility] HCG Qualitative, Serumon hCG Qual Negative NEGATIVE [facility] [employer] Comment on above: Specimens with hCG l evels near the threshold of the test (25 mIU/mL) may give a negative or indeterminate result. In such cases, another test should be performed with a new specimen in 48-72 hours. If early is suspected clinically in this setting, correlation with quantitative serum b-hCG level is suggested. [employer] has confirmed the use of plasma for this test. This has not been cleared or approved by the U.S. Food and Drug Administration. The FDA has determined that such clearance is not necessary. [facility] Laboratory - Chemistry and C hemistry - challengeon 08-11-2021 GFR/1.73 sq M.predicted MDRD (S/P/Bld) [Vol rate/Area] [facility] Comment on above: Average GFR for 30-3 9 years old: 107 mL/min/1.73sq m Chronic Kidney Disease: <60 mL/min/1.73sq m Kidney failure: <15 mL/min/1.73sq m eGFR calculated using average adult body mass. Additional eGFR calculator available at: http://www.Deltek.E Ink/multiple_crcl_2012.htm Stage 1: Some kidney damage normal GFR Stage 2: Mild kidney damage GFR 60-89 Stage 3: Moderate kidney damage GFR 30-59 Stage 4: Severe kidney damage GFR 15-29 Stage 5: Severe kidney damage GFR <15 ESRD - chronic treatment by dialysis or transplant Lactic Acidon 08-11-2021 Lactate [Moles/Vol] 1.1 mmol/L 0.5 - 2. 2 mmol/L [facility] Lipaseon 08-11-2021 Lipase [Catalytic activity/Vol] 13 U/L 13 - 60 U/L [facility] Microscopic Urinalysison - [facility] Bacteria, UA TRACE Abnormal None [facility] Epithelial Cells UA 0 TO 2 [facility] Interpretation and review of laboratory results Abnormal [facility] RBC, UA 0 TO 2 [facility] WBC, UA 0 TO 2 [facility] No Panel Informationon 08-11 [facility] Rapid influenza A/B antigens on 08-11-2021 Flu A Antigen Negative NEGATIVE [facility] Comment on above: for Influenza A Anti gen Flu B Antigen Negative NEGATIVE [facility] h Comment on above: for Influenza B Anti gen. [facility] TSH with Reflexon 08-11-2021 TSH Qn 0.62 m[IU]/L [facility] Urinalysis with Reflex to Cu ltureon 08-11-2021 Bilirubin Urine Negative NEGATIVE [facility] Color, UA Yellow Yellow [facility] Glucose, Ur Negative NEGATIVE [facility] Interpretation and review of laboratory results Abnormal [facility] Ketones Ql (U) Negative NEGATIVE [facility] Leukocyte esterase Test strip Ql (U) Negative NEGATIVE [facility] Nitrite, Urine Negative NEGATIVE [facility] pH, UA 7.0 [facility] Protein, UA Negative NEGATIVE [facility] Specific [place], UA <1.005 Low [facility] Turbidity UA Clear Clear [facility] Urine Hgb Negative NEGATIVE [facility] Urobilinogen, Urine Normal Normal [facility] Laboratory - Chemistry and C hemistry - challengeOrdered By: Traci Dennison on 07-17-2021 Albumin [Mass/Vol] 4.5 g/dL (3.5-5.2 ) [facility] Work Phone: Comment on above: Note: Responsible Ob ware server: [employer] AUTOFILE (2840) ALT [Catalytic activity/Vol] 13 U/L (5-33 ) [facility] Work Phone: Comment on above: Note: Responsible Ob ware server: [employer] AUTOFILE (3002) Anion gap [Moles/Vol] 11 mmol/L (9-17 ) [facility] Work Phone: Comment on above: Note: Responsible Ob ware server: [employer]OFILE (3002) AST [Catalytic activity/Vol] 16 U/L (<32 ) [facility] Work Phone: Comment on above: Note: Responsible Ob ware server: [employer] (3002) Bilirubin [Mass/Vol] 0.28 mg/dL Low (0.3-1.2 ) [facility] Work Phone: Comment on above: Note: Responsible Ob ware server: [employer]OFILE (3002) Calcium [Mass/Vol] 9.2 mg/dL (8.6-10.4 ) [facility] Work Phone: Comment on above: Note: Responsible Ob ware server: [employer]FILE (3002) Chloride [Moles/Vol] 102 mmol/L (98-107 ) [facility] Work Phone: Comment on above: Note: Responsible Ob ware server: [employer] AUTOFILE (3002) Cholesterol [Mass/Vol] 129 mg/dL (<200 ) [facility] Work Phone: Comment on above: Note: Cholesterol Gu idelines:<200 [id number] Borderline>240 UndesirableResponsible Observer: [employer] AUTOFILE (3002) Cholesterol.total/Le sterol in HDL [Mass ratio] 3.4 {ratio} (<5 ) [facility] Work Phone: Comment on above: Note: Responsible Ob ware server: [employer] AUT[employer]FILE (3002) CO2 [Moles/Vol] 27 mmol/L (20-31 ) [facility] Work Phone: Comment on above: Note: Responsible Ob ware server: [employer] AUT[employer] (3002) Cobalamin (Vitamin B12) [Mass/Vol] 381 pg/mL (232-1245 ) [facility] Work Phone: Comment on above: Note: Responsible Ob ware server: CEEV AUTOFILE (3003) Creatinine [Mass/Vol] 0.65 mg/dL (0.50- 0.90 ) [facility] Work Phone: Comment on above: Note: Responsible Ob ware server: [employer] AUTOFILE (3002) Glucose [Mass/Vol] 72 mg/dL (70-99 ) [facility] Work Phone: Comment on above: Note: Responsible Ob ware server: [employer] AUTOFILE (3002) Magnesium [Mass/Vol] 38 mg/dL Low (>40 ) [facility] Work Phone: Comment on above: Note: HDL Guidelines :<40 [id number] Borderline>59 DesirableResponsible Observer: EV AUTOFILE (3002) Magnesium [Mass/Vol] 76 mg/dL (0-130 ) [facility] Work Phone: Comment on above: Note: LDL Guidelines :<100 [id number] Near to/above Nentbsewv485-154 Borderline>159 UndesirableDirect (measured) LDL and calculated LDL are not interchangeable tests.Responsible Observer: [facility] AUTOFILE (3002) Magnesium [Mass/Vol] 75 mg/dL (<150 ) [facility] Work Phone: Comment on above: Note: Triglyceride G uidelines:<150 [id number] [id number] High>499 Very highBased on AHA Guidelines for fasting triglyceride, January 2012.Responsible Observer: [employer]CE[employer] AUTOFILE (3002) Potassium [Moles/Vol] 4.5 mmol/L (3.7-5.3 ) [facility] Work Phone: Comment on above: Note: Responsible Ob ware server: EV AUTOFILE (3002) Protein [Mass/Vol] 7.0 g/dL (6.4-8.3 ) [facility] Work Phone: Comment on above: Note: Responsible Ob ware server: [employer] AUTOFILE (3002) Sodium [Moles/Vol] 140 mmol/L (135-144 ) [facility] Work Phone: Comment on above: Note: Responsible Ob ware server: [employer] AUTOFILE (3002) Urea nitrogen [Mass/Vol] 7 mg/dL (6-20 ) [facility] Work Phone: Comment on above: Note: Responsible Ob ware server: [employer] AUTOFILE (3002) Laboratory - Hematology and Cell countsOrdered By: Traci Dennison on 07-17-2021 Basophils/100 WBC (Bld) 1 % (0-2 ) [facility]: Comment on above: Note: Responsible Ob ware server: [employer] AUTOFILE (3018) Eosinophils (Bld) [#/Vol] 0.14 10*3/uL (0.00-0.44 ) [facility] Work Phone: Comment on above: Note: Responsible Ob ware server: [employer] AUTOFILE (3018) Eosinophils/100 WBC (Bld) 2 % (1-4 ) [facility] Work Phone: Comment on above: Note: Responsible Ob ware server: [employer] AUTOFILE (3018) Erythrocyte distribution width (RBC) [Ratio] 14.5 % High (11.8-14.4 ) [facility] Work Phone: Comment on above: Note: Responsible Ob ware server: [employer] AUTOFILE (3018) Hematocrit (Bld) [Volume fraction] 46.3 % (36.3-47.1 ) [facility] Work Phone: Comment on above: Note: Responsible Ob ware server: [employer] AUTOFILE (3018) Hemoglobin (Bld) [Mass/Vol] 14.3 g/dL (11.9-15.1 ) [facility] Work Phone: Comment on above: Note: Responsible Ob ware server: [employer] AUTOFILE (3018) Immature granulocytes/100 WBC (Bld) 0 % (0 ) [facility] Work Phone: Comment on above: Note: Responsible Ob ware server: [employer] AUTOFILE (3018) Lymphocytes (Bld) [#/Vol] 1.65 10*3/uL (1.10-3.70 ) [facility] Work Phone: Comment on above: Note: Responsible Ob ware server: [employer] AUTOFILE (3018) Lymphocytes/100 WBC (Bld) 20 % Low (24-43 ) [facility] Work Phone: Comment on above: Note: Responsible Ob ware server: [employer] AUTOFILE (3018) MCH (RBC) [Entitic mass] 30.4 pg (25.2-33.5 ) [facility] Work Phone: Comment on above: Note: Responsible Ob ware server: XNV AUTOFILE (3018) MCHC (RBC) [Mass/Vol] 30.9 g/dL (28.4- 34.8 ) [facility] Work Phone: Comment on above: Note: Responsible Ob ware server: [employer]NV AUTOFILE (3018) MCV (RBC) [Entitic vol] 98.3 fL (82. 6-102. 9 ) [facility] Work Phone: Comment on above: Note: Responsible Ob ware server: [employer] AUTOFILE (3018) Monocytes (Bld) [#/Vol] 0.55 10*3/uL (0.1 0-1.20 ) [facility] Work Phone: Comment on above: Note: Responsible Ob ware server: [employer] AUTOFILE (3018) Monocytes/100 WBC (Bld) 7 % (3-12 ) [facility] Work [facility]: Comment on above: Note: Responsible Ob ware server: [employer]NV AUTOFILE (3018) Platelet mean volume (Bld) [Entitic vol] 10.2 fL (8.1-13.5 ) [facility] Work Phone: Comment on above: Note: Responsible Ob ware server: [employer]NV AUTOFILE (3018) Platelets (Bld) [#/Vol] 326 10*3/uL (138-453 ) [facility] Work Phone: Comment on above: Note: Responsible Ob ware server: [employer] AUTOFILE (3018) RBC (Bld) [#/Vol] 4.71 10*6/uL (3.95-5.11 ) [facility] Work Phone: Comment on above: Note: Responsible Ob ware server: [employer] AUTOFILE (3018) RBC morphology finding Nom (Bld) ANISOCYTOSIS PRESENT [facility] Work Phone: Comment on above: Note: Responsible Ob ware server: [employer]NV AUTOFILE (3018) Segmented neutrophils/100 WBC (Bld) 70 % High (36-65 ) [facility] Work Phone: Comment on above: Note: Responsible Ob ware server: [employer] AUTOFILE (3018) WBC (Bld) [#/Vol] 8.3 10*3/uL (3.5-11.3 ) [facility] Work Phone: Comment on above: Note: Responsible Ob ware server: XNV AUTOFILE (3018) No Panel InformationOrdered By: Traci Dennison on 07-17-2021 (cont.) See Note [facility] Work Phone: Comment on above: Note: Average GFR fo r 30-39 years old:107 mL/min/1.73sq mChronic Kidney Disease:<60 mL/min/1.73sq mKidney failure:<15 mL/min/1.73sq meGFR calculated using average adult body mass. Additional eGFR calculatoravailable at:http://www.Deltek.E Ink/multiple_crcl_2012.htmResponsible Observer: [employer]FILE (3002) Abs. Basophil 0.07 k/uL (0.00-0.20 ) [facility] Work Phone: Comment on above: Note: Responsible Ob ware server: [employer] AUTOFILE (3018) Abs.Imm.Granulocyte 0.03 k/uL (0.00-0. 30 ) [facility] Work Phone: Comment on above: Note: Responsible Ob ware server: [employer]NV AUTOFILE (3018) Abs.Neutrophil (Seg) 5.89 k/uL (1.50-8 .10 ) [facility] Work Phone: Comment on above: Note: Responsible Ob ware server: [employer]NV AUTOFILE (3018) Albumin/Glob Ratio 1.8 (1.0-2.5 ) [facility] Work Phone: Comment on above: Note: Responsible Ob ware server: [employer]CE[employer] AUTOFILE (3002) Alkaline Phos 55 U/L (35-104 ) [facility] Work Phone: Comment on above: Note: Responsible Ob ware server: [employer] AUTOFILE (3002) Folic Acid 15.6 ng/mL (>4.8 ) [facility] Work Phone: Comment on above: Note: Responsible Ob ware server: [employer]EE[employer] AUTOFILE (3003) GFR, Amer >60 mL/min (>60 ) [facility] Work Phone: Comment on above: Note: Responsible Ob ware server: CCEV AUTOFILE (3002) GFR,non Amer >60 mL/min (>60 ) [facility] Work Phone: Comment on above: Note: Responsible Ob ware server: CCEV AUTOFILE (3002) NRBC Automated 0.0 per_100_WBC (0.0 ) [facility] Work Phone: Comment on above: Note: Responsible Ob ware server: XNV AUTOFILE (3018) Reported Physicians See Note [facility] Work Phone: Comment on above: Note: Reported Physi cians:Ordering: Saeid DennisonaAttending: Saeid DennisonaReferring: Traci Dennison Thyroid Stim. Horm. 0.74 uIU/mL (0.30-5. 00 ) [facility] [employer] [facility] Work Phone: Comment on above: Note: Responsible Ob ware server: CC AUTOFILE (9942) Vitamin D 25 [place] 9.8 ng/mL Low (>29.9 ) [facility] Work Phone: Comment on above: Note: Reference Rang e:Vitamin D status RangeDeficiency <20 ng/mLMild Deficiency 20-30 ng/mLSufficiency 30-100 ng/mLToxicity >100 ng/mLResponsible Observer: CEEV AUTOFILE (0239) No Panel Informationon 07-03 No fracture, dislocation, or significant degenerative change. [facility] EXAMINATION: THREE XRAY VIEWS OF THE RIGHT SHOULDER; TWO XRAY VIEWS OF THE RIGHT [place] 07/03/2021 10:34 am COMPARISON: None. HISTORY: ORDERING SYSTEM PROVIDED HISTORY: pain TECHNOLOGIST PROVIDED HISTORY: pain FINDINGS: No fracture or dislocation. The glenohumeral and acromioclavicular joints are preserved. [facility] Amrit Hayes P - 07/03/2021 EXAMINATION: THREE XRAY VIEWS OF THE RIGHT SHOULDER; TWO XRAY VIEWS OF THE RIGHT [place] 07/03/2021 10:34 am COMPARISON: None. HISTORY: ORDERING SYSTEM PROVIDED HISTORY: pain TECHNOLOGIST PROVIDED HISTORY: pain FINDINGS: No fracture or dislocation. The glenohumeral and acromioclavicular joints are preserved. IMPRESSION: No fracture, dislocation, or significant degenerative change. [facility] Work Phone: No Panel InformationOrdered By: Amrit Hayes on 07-03-2021 [facility] Work Phone: XR CLAVICLE RIGHTon 07-04-19 Radiology Study observation (narrative) Lana gayle Work Phone: XR SHOULDER RIGHT (MIN 2 VIE WS)on 07-03-2021 Radiology Study observation (narrative) Lana gayle Work Phone: CBC with Auto Differentialon 06-06-2021 Absolute Eos # 0.07 [facility] th Absolute Immature Granulocyte 0.04 [facility] Absolute Lymph # 1.54 [facility] Absolute [place] # 0.88 [facility] Basophils (Bld) [#/Vol] 0.06 10*3/uL [facility] Basophils/100 WBC (Bld) 1 % 0 - 2 % [facility] Eosinophils/100 WBC (Bld) 1 % 1 - 4 % [facility] Hematocrit (Bld) [Volume fraction] 43.0 % 36.3 - 47.1 % [facility] Hemoglobin.gastrointest inal spec 1 Ql (Stl) 14.0 g/dL 11.9 - 15.1 g/dL [facility] Immature granulocytes/100 WBC (Bld) 0 % 0 [facility] Interpretation and review of laboratory results Abnormal [facility] Lymphocytes/100 WBC (Bld) 13 % Low 24 - 43 % [facility] MCH (RBC) [Entitic mass] 30.7 pg 25.2 - 33.5 pg [facility] MCHC (RBC) [Mass/Vol] 32.6 g/dL 28.4 - 34.8 g/dL [facility] MCV (RBC) [Entitic vol] 94.3 fL 82.6 - 102.9 fL [facility] Monocytes/100 WBC (Bld) 7 % 3 - 12 % [facility] NRBC Automated 0.0 0.0 per 100 WBC [facility] Platelet distribution width (Bld) [Ratio] 14.3 % 11.8 - 14.4 % [facility] Platelet mean volume (Bld) [Entitic vol] 9.5 fL 8.1 - 13.5 fL [facility] Platelets (Bld) [#/Vol] 247 10*3/uL [facility] RBC (Bld) [#/Vol] 4.56 10*6/uL 3.95 - 5.11 m/uL [facility] Segmented neutrophils/100 WBC (Bld) 78 % High 36 - 65 % [facility] Segs Absolute 9.44 High [facility] h WBC (Bld) [#/Vol] 12.0 10*3/uL High [facility] CT ABDOMEN PELVIS W IV CONTR AST Additional Contrast? Noneon 06-06-2021 No acute abdominal o r pelvic findings. [facility] CONSOLIDATED EXAMINATION: CT OF THE [...] No lymphadenopathy. Bones/Soft Tissues: No osseous abnormality [facility] Amrit Hayes P - 06/06/2021 EXAMINATION: CT OF THE [...] IMPRESSION: No acute abdominal or pelvic findings. [facility] Work Phone: Radiology Study observation (narrative) [facility] Work Phone: CT ABDOMEN PELVIS W IV CONTR AST Additional Contrast? NoneOrdered By: Amrit Hayes on 06-06-2021 [facility] Work Phone: Comprehensive Metabolic Pane l w/ Reflex to MGon 06-06-2021 Albumin [Mass/Vol] 4.5 g/dL 3.5 - 5.2 g/dL [facility] Albumin/Globulin [Mass ratio] 1.7 {ratio} [facility] ALP (Bld) [Catalytic activity/Vol] 53 U/L 35 - 104 U/L [facility] ALT [Catalytic activity/Vol] 14 U/L 5 - 33 U/L [facility] Anion gap [Moles/Vol] 10 mmol/L 9 - 17 mmol/L [facility] AST [Catalytic activity/Vol] 14 U/L <32 [facility] Bilirubin [Mass/Vol] 0.26 mg/dL Low 0.3 - 1 .2 mg/dL [facility] Calcium [Mass/Vol] 9.1 mg/dL 8.6 - 10. 4 mg/dL [facility] Chloride [Moles/Vol] 103 mmol/L 98 - 10 7 mmol/L [facility] CO2 [Moles/Vol] 26 mmol/L 20 - 31 mmol/L [facility] Creatinine [Mass/Vol] 0.73 mg/dL 0.50 - 0.90 mg/dL [facility] Free PSA/Total PSA [Mass fraction] 7.1 g/dL 6.4 - 8.3 g/dL [facility] GFR >60 >60 mL/min [facility] GFR Non- >60 >60 mL/min [facility] Glucose [Mass/Vol] 92 mg/dL 70 - 99 mg/dL [facility] Interpretation and review of laboratory results Abnormal [facility] Potassium [Moles/Vol] 4.1 mmol/L 3.7 - 5.3 mmol/L [facility] Sodium [Moles/Vol] 139 mmol/L 135 - 144 mmol/L [facility] Urea nitrogen (BldV) [Mass/Vol] 7 mg/dL 6 - 20 mg/dL [facility] Urea nitrogen/Creatinine (Bld) [Mass ratio] 10 [facility] Laboratory - Chemistry and C hemistry - challengeon 06-06-2021 GFR/1.73 sq M.predicted MDRD (S/P/Bld) [Vol rate/Area] [facility] Comment on above: Average GFR for 30-3 9 years old: 107 mL/min/1.73sq m Chronic Kidney Disease: <60 mL/min/1.73sq m Kidney failure: <15 mL/min/1.73sq m eGFR calculated using average adult body mass. Additional eGFR calculator available at: http://www.[employer]/multiple_crcl_2012.htm Stage 1: Some kidney damage normal GFR Stage 2: Mild kidney damage GFR 60-89 Stage 3: Moderate kidney damage GFR 30-59 Stage 4: Severe kidney damage GFR 15-29 Stage 5: Severe kidney damage GFR <15 ESRD - chronic treatment by dialysis or transplant Lipaseon 06-06-2021 Lipase [Catalytic activity/Vol] 16 U/L 13 - 60 U/L [facility] Microscopic Urinalysison - [facility] Bacteria, UA 2+ Abnormal None [facility] Epithelial Cells UA 10 TO 20 [facility] Interpretation and review of laboratory results Abnormal [facility] Mucus, UA 2+ Abnormal None [facility] RBC, UA 0 TO 2 [facility] WBC, UA 0 TO 2 [facility] No Panel Informationon 06-06 [facility] , Urineon Beta HCG ( test) Ql (U) Negative NEGATIVE [facility] Comment on above: Specimens with hCG l evels near the threshold of the test (25 mIU/mL) may give a negative or indeterminate result. In such cases, another test should be performed with a new specimen in 48-72 hours. If early is suspected clinically in this setting, correlation with quantitative serum b-hCG level is suggested. [employer] has confirmed the use of plasma for this test. This has not been cleared or approved by the U.S. Food and Drug Administration. The FDA has determined that such clearance is not necessary. [employer] Urinalysison 06-06-2021 Bilirubin Urine Negative NEGATIVE [facility], UA Yellow Yellow [facility] Glucose, Ur Negative NEGATIVE [facility] Interpretation and review of laboratory results Abnormal [facility] Ketones Ql (U) TRACE Abnormal NEGATIVE [facility] Leukocyte esterase Test strip Ql (U) Negative NEGATIVE [facility] Nitrite, Urine Negative NEGATIVE [facility] pH, UA 7.5 [facility] Protein, UA Negative NEGATIVE [facility] Specific [place], UA 1.020 [facility] Turbidity UA Clear Clear [facility] Urine Hgb Negative NEGATIVE [facility] Urobilinogen, Urine Normal Normal [facility] Laboratory - Microbiology an d Antimicrobial susceptibilityOrdered By: Traci Dennison on 04-29-2021 SARS-CoV-2 (COVID-19) RNA EVELIA+probe Ql (Resp) Not detected (Not Detected ) [facility] Work Phone: Comment on above: Note: [...] of in vitro diagnostic tests for detection [id number] virus and/or diagnosis of COVID-19 infectionunder section [...] (COVID-19) RNA EVELIA+probe Ql (Unsp spec) Performed [facility] Work Phone: No Panel InformationOrdered By: Traci Dennison on 04-03-2021 Chlamydia Probe, Ur Negative (NEG ) [facility] [facility] Work Phone: Comment on above: [...] alternative nucleic acid target.Responsible Observer: CFORTYEIGH AUTOFILE ([id number]) Gonorrhea Probe, Ur Negative (NEG ) [facility] Work Phone: Comment on above: [...] alternative nucleic acid target.Responsible Observer: CFORTYEIGH AUTOFILE ([id number]) Reported Physicians See Note [facility] Work Phone: Comment on above: Note: Reported Physi cians:Ordering: Saeid DennisonaAttending: Saeid DennisonaReferring: Traci Dennison Source: .URINE [facility] Work Phone: Comment on above: Note: Responsible Ob ware server: KONSTANTIN SHELTON ([id number]) Trich Vag, Molecular Negative (NEG ) [facility] Work Phone: Comment on above: Note: T. vaginalis D NA not detectedResults should be interpreted in conjunction with other clinical data.This test is intended for medical purposes only and is not valid for theevaluation of suspected sexual abuse or for other forensic purposes.This test has not been evaluated in women or in patients less than 16years of age.Responsible Observer: NADIA MCGUIRE ([id number]) Vaginitis DNA Probe See Note [facility] Work Phone: Comment on above: Note: Specimen Descr iption .VAGINAL SWABSpecial Requests NOT REPORTEDDirect Exam POSITIVE for Gardnerella vaginalis.NEGATIVE for Kayla sp.NEGATIVE for Trichomonas vaginalisMethod of testing is a DNA probe intended for detection and identification ofCandida species, Gardnerella vaginalis, and Trichomonas vaginalis nucleic acidin vaginal fluid specimens from patients with symptoms of vaginitis/vaginosis.Report Status FINAL 1Responsible Observer: KONSTANTIN SHELTON ([id number]) Basic Metabolic PanelOrdered By: Serenity Will on 02-07-2021 Anion gap [Moles/Vol] 8 mmol/L Low 9 - 17 mmol/L [employer] Phone: Calcium [Mass/Vol] 8.5 mg/dL Low 8.6 - 10. 4 mg/dL [employer] Phone: Chloride [Moles/Vol] 106 mmol/L 98 - 10 7 mmol/L [employer] Phone: CO2 [Moles/Vol] 24 mmol/L 20 - 31 mmol/L [employer] Phone: Creatinine [Mass/Vol] 0.66 mg/dL 0.50 - 0.90 mg/dL [employer] Phone: GFR >60 >60 mL/min [employer] Phone: GFR Non- >60 >60 mL/min [employer] Phone: Glucose [Mass/Vol] 87 mg/dL 70 - 99 mg/dL [employer] Phone: Potassium [Moles/Vol] 4.0 mmol/L 3.7 - 5.3 mmol/L [employer] Phone: Sodium [Moles/Vol] 138 mmol/L 135 - 144 mmol/L [employer] Phone: Urea nitrogen (BldV) [Mass/Vol] 5 mg/dL Low 6 - 20 mg/dL [employer] Phone: Urea nitrogen/Creatinine (Bld) [Mass ratio] 8 Low [employer] Phone: CBCOrdered By: Serenity stevens on 02-07-2021 Hematocrit (Bld) [Volume fraction] 41.9 % 36.3 - 47.1 % [employer] Phone: Hemoglobin.gastrointest inal spec 1 Ql (Stl) 13.6 g/dL 11.9 - 15.1 g/dL [employer] Phone: MCH (RBC) [Entitic mass] 30.1 pg 25.2 - 33.5 pg [employer] Phone: MCHC (RBC) [Mass/Vol] 32.5 g/dL 28.4 - 34.8 g/dL [employer] Phone: MCV (RBC) [Entitic vol] 92.7 fL 82.6 - 102.9 fL [employer] Phone: NRBC Automated 0.0 0.0 per 100 WBC [employer] Phone: Platelet distribution width (Bld) [Ratio] 14.3 % 11.8 - 14.4 % [employer] Phone: Platelet mean volume (Bld) [Entitic vol] 9.3 fL 8.1 - 13.5 fL [employer] Phone: Platelets (Bld) [#/Vol] 217 10*3/uL [employer] Phone: RBC (Bld) [#/Vol] 4.52 10*6/uL 3.95 - 5.11 m/uL [employer] Phone: WBC (Bld) [#/Vol] 10.3 10*3/uL [employer] Phone: [employer] Phone: HCG Qualitative, SerumOrdere d By: Serenity Will on 02-07-2021 hCG Qual Negative NEGATIVE [employer] Phone: Comment on above: Specimens with hCG l evels near the threshold of the test (25 mIU/mL) may give a negative or indeterminate result. In such cases, another test should be performed with a new specimen in 48-72 hours. If early is suspected clinically in this setting, correlation with quantitative serum b-hCG level is suggested. [employer] has confirmed the use of plasma for this test. This has not been cleared or approved by the U.S. Food and Drug Administration. The FDA has determined that such clearance is not necessary. [employer] Phone: Hepatic function panelOrdere d By: Serenity Will on 02-07-2021 Albumin [Mass/Vol] 4.1 g/dL 3.5 - 5.2 g/dL [employer] Phone: Albumin/Globulin [Mass ratio] 1.5 {ratio} [employer] Phone: ALP (Bld) [Catalytic activity/Vol] 48 U/L 35 - 104 U/L [employer] Phone: ALT [Catalytic activity/Vol] 13 U/L 5 - 33 U/L [employer] Phone: AST [Catalytic activity/Vol] 16 U/L <32 [employer] Phone: Bilirubin [Mass/Vol] mg/dL Low 0.3 - 1 .2 mg/dL [employer] Phone: Bilirubin, Indirect CANNOT BE CALCULATED 0.00 - 1.00 mg/dL [employer] Phone: Bilirubin.indirect [Mass/Vol] mg/dL <0.31 mg/dL [employer] Phone: Free PSA/Total PSA [Mass fraction] 6.8 g/dL 6.4 - 8.3 g/dL [employer] Phone: Globulin NOT REPORTED 1.5 - 3.8 g/dL [employer] Phone: Interpretation and review of laboratory results Abnormal [employer] Phone: [employer] Phone: Laboratory - Chemistry and C hemistry - challengeOrdered By: Serenity Will on 02-07-2021 GFR/1.73 sq M.predicted MDRD (S/P/Bld) [Vol rate/Area] [employer] Phone: Comment on above: Average GFR for 30-3 9 years old: 107 mL/min/1.73sq m Chronic Kidney Disease: <60 mL/min/1.73sq m Kidney failure: <15 mL/min/1.73sq m eGFR calculated using average adult body mass. Additional eGFR calculator available at: http://www.[employer]/multiple_crcl_2012.htm Stage 1: Some kidney damage normal GFR Stage 2: Mild kidney damage GFR 60-89 Stage 3: Moderate kidney damage GFR 30-59 Stage 4: Severe kidney damage GFR 15-29 Stage 5: Severe kidney damage GFR <15 ESRD - chronic treatment by dialysis or transplant Lactic acid, plasmaOrdered B y: Serenity Will on 02-07-2021 Lactate [Moles/Vol] 0.8 mmol/L 0.5 - 2. 2 mmol/L [employer] Phone: Lactic Acid, Whole Blood NOT REPORTED 0.7 - 2.1 mmol/L [employer] Phone: [employer] Phone: LipaseOrdered By: Serenity Will on 02-07-2021 Lipase [Catalytic activity/Vol] 11 U/L Low 13 - 60 U/L [facility] [employer] Work Phone: Microscopic UrinalysisOrdere d By: Serenity Will on 02-07-2021 - [facility] [employer] Work Phone: Amorphous, UA NOT REPORTED None [facility] Work Phone: Bacteria, UA NOT REPORTED None [facility] Work Phone: Casts UA NOT REPORTED /LPF [facility] Work Phone: Crystals, UA NOT REPORTED None /HPF [facility] Work Phone: Epithelial Cells UA 5 TO 10 [facility] [employer] Work Phone: Mucus, UA NOT REPORTED None [facility] [employer] Work Phone: Other Observations UA NOT REPORTED NOT REQ. M [facility] Work Phone: RBC, UA 0 TO 2 [facility] [employer] Work Phone: Renal Epithelial, UA NOT REPORTED 0 /HPF [facility] Work Phone: Trichomonas, UA NOT REPORTED None [facility] Work Phone: WBC, UA 0 TO 2 [facility] [employer] Work Phone: Yeast, UA NOT REPORTED None [facility] [employer] Work Phone: [facility] [employer] Work Phone: No Panel InformationOrdered By: Serenity Will on 02-07-2021 Interpretation and review of laboratory results Abnormal [facility] [employer] Work Phone: [facility] Work Phone: Urinalysis Reflex to Culture Ordered By: Serenity Will on 02-07-2021 Bilirubin Urine Negative NEGATIVE [facility] Work Phone: Color, UA Yellow Yellow [facility] [employer] Work Phone: Glucose, Ur Negative NEGATIVE [facility] Work Phone: Ketones Ql (U) Negative NEGATIVE [facility] Work Phone: Leukocyte esterase Test strip Ql (U) Negative NEGATIVE [facility] Work Phone: Nitrite, Urine Negative NEGATIVE [facility] Work Phone: pH, UA 7.0 [facility] Work Phone: Protein, UA Negative NEGATIVE [facility] Work Phone: Specific [place], UA 1.010 [facility] Work Phone: Turbidity UA Clear Clear [facility] Work Phone: Urinalysis Comments NOT REPORTED [facility] Work Phone: Urine Hgb Negative NEGATIVE [facility] Work Phone: Urobilinogen, Urine Normal Normal [facility] [employer] Work Phone: [facility] Work Phone: CBC Auto DifferentialOrdered By: Мария Yee on 02-05-2021 [employer] Eos # 0.07 [facility] Work Phone: Absolute Immature Granulocyte <0.03 [facility] Work Phone: Absolute Lymph # 1.75 [facility] Work Phone: Absolute [place] # 0.49 [facility] Work Phone: Basophils (Bld) [#/Vol] 0.05 10*3/uL [facility] Work Phone: Basophils/100 WBC (Bld) 1 % 0 - 2 % [facility] [employer] Work Phone: Differential Type NOT REPORTED [facility] [employer] Work Phone: Eosinophils/100 WBC (Bld) 1 % 1 - 4 % [facility] [employer] Work Phone: Hematocrit (Bld) [Volume fraction] 42.4 % 36.3 - 47.1 % [employer] Phone: Hemoglobin.gastrointest inal spec 1 Ql (Stl) 13.8 g/dL 11.9 - 15.1 g/dL [employer] Phone: Immature granulocytes/100 WBC (Bld) 0 % 0 [employer] Phone: Lymphocytes/100 WBC (Bld) 28 % 24 - 43 % [employer] Phone: MCH (RBC) [Entitic mass] 30.4 pg 25.2 - 33.5 pg [employer] Phone: MCHC (RBC) [Mass/Vol] 32.5 g/dL 28.4 - 34.8 g/dL [employer] Phone: MCV (RBC) [Entitic vol] 93.4 fL 82.6 - 102.9 fL [employer] Phone: Monocytes/100 WBC (Bld) 8 % 3 - 12 % [facility] [employer] Work Phone: NRBC Automated 0.0 0.0 per 100 WBC [employer] Phone: Platelet distribution width (Bld) [Ratio] 14.3 % 11.8 - 14.4 % [employer] Phone: Platelet Estimate NOT REPORTED [employer] Phone: Platelet mean volume (Bld) [Entitic vol] 9.6 fL 8.1 - 13.5 fL [employer] Phone: Platelets (Bld) [#/Vol] 229 10*3/uL [employer] Phone: RBC (Bld) [#/Vol] 4.54 10*6/uL 3.95 - 5.11 m/uL [employer] Phone: RBC (Bld) [#/Vol] NOT REPORTED [employer] Phone: Segmented neutrophils/100 WBC (Bld) 62 % 36 - 65 % [employer] Phone: Segs Absolute 3.88 [employer] Work Phone: WBC (Bld) [#/Vol] 6.3 10*3/uL [employer] Phone: WBC (Bld) [#/Vol] NOT REPORTED [employer] Phone: [employer] Work Phone: Comprehensive Metabolic Pane l w/ Reflex to MGOrdered By: Мария Yee on 02-05-2021 Albumin [Mass/Vol] 4.5 g/dL 3.5 - 5.2 g/dL [employer] Phone: Albumin/Globulin [Mass ratio] 1.7 {ratio} [employer] Phone: ALP (Bld) [Catalytic activity/Vol] 53 U/L 35 - 104 U/L [employer] Phone: ALT [Catalytic activity/Vol] 12 U/L 5 - 33 U/L [employer] Phone: Anion gap [Moles/Vol] 12 mmol/L 9 - 17 mmol/L [employer] Phone: AST [Catalytic activity/Vol] 15 U/L <32 [employer] Phone: Bilirubin [Mass/Vol] 0.17 mg/dL Low 0.3 - 1 .2 mg/dL [employer] Phone: Calcium [Mass/Vol] 8.5 mg/dL Low 8.6 - 10. 4 mg/dL [employer] Phone: Chloride [Moles/Vol] 106 mmol/L 98 - 10 7 mmol/L [employer] Phone: CO2 [Moles/Vol] 23 mmol/L 20 - 31 mmol/L [employer] Phone: Creatinine [Mass/Vol] 0.65 mg/dL 0.50 - 0.90 mg/dL [employer] Phone: Free PSA/Total PSA [Mass fraction] 7.2 g/dL 6.4 - 8.3 g/dL [employer] Phone: GFR >60 >60 mL/min [employer] Phone: GFR Non- >60 >60 mL/min [employer] Phone: Glucose [Mass/Vol] 86 mg/dL 70 - 99 mg/dL [employer] Phone: Potassium [Moles/Vol] 3.6 mmol/L Low 3.7 - 5.3 mmol/L [employer] Phone: Sodium [Moles/Vol] 141 mmol/L 135 - 144 mmol/L [employer] Phone: Urea nitrogen (BldV) [Mass/Vol] 7 mg/dL 6 - 20 mg/dL [employer] Phone: Urea nitrogen/Creatinine (Bld) [Mass ratio] 11 [employer] Phone: Laboratory - Chemistry and C hemistry - challengeOrdered By: Мария Yee on 02-05-2021 GFR/1.73 sq M.predicted MDRD (S/P/Bld) [Vol rate/Area] [employer] Phone: Comment on above: Average GFR for 30-3 9 years old: 107 mL/min/1.73sq m Chronic Kidney Disease: <60 mL/min/1.73sq m Kidney failure: <15 mL/min/1.73sq m eGFR calculated using average adult body mass. Additional eGFR calculator available at: http://www.[employer]/multiple_crcl_2012.htm Stage 1: Some kidney damage normal GFR Stage 2: Mild kidney damage GFR 60-89 Stage 3: Moderate kidney damage GFR 30-59 Stage 4: Severe kidney damage GFR 15-29 Stage 5: Severe kidney damage GFR <15 ESRD - chronic treatment by dialysis or transplant Lactic AcidOrdered By: Chuck Yee on 02-05-2021 Lactate [Moles/Vol] 0.8 mmol/L 0.5 - 2. 2 mmol/L [employer] Phone: [employer] Phone: LipaseOrdered By: Мария vargas on 02-05-2021 Lipase [Catalytic activity/Vol] 12 U/L Low 13 - 60 U/L [employer] Phone: No Panel InformationOrdered By: Мария Yee on 02-05-2021 Interpretation and review of laboratory results Abnormal [employer] Phone: [employer] Phone: Laboratory - Microbiology an d Antimicrobial susceptibilityOrdered By: Traci Dennison on 01-01-2021 SARS-CoV-2 (COVID-19) RNA EVELIA+probe Ql (Resp) Not detected (Not Detected ) [facility] Work Phone: Comment on above: Note: [...] of in vitro diagnostic tests for detection [id number] virus and/or diagnosis of COVID-19 infectionunder section [...] (COVID-19) RNA EVELIA+probe Ql (Unsp spec) Performed [facility] Work Phone: No Panel InformationOrdered By: Kalpesh Dillard on 11-16-2020 No acute findings in the right forearm or right wrist. [employer] Work Phone: EXAMINATION: 2 XRAY VIEWS OF [...] alignment. No obvious acute soft tissue abnormality. [employer] Work Phone: Thomas, pn Incoming Radiant Results From [employer] - 11/16/2020 11:47 AM EDT EXAMINATION: 2 [...] in the right forearm or right wrist. [employer] Work Phone: [employer] Phone: AmylaseOrdered By: Kirk wilcox on 09-04-2020 Amylase [Catalytic activity/Vol] 48 U/L 28 - 100 U/L [employer] Phone: CBC Auto DifferentialOrdered By: Kirk Barlow on 09-04-2020 [employer] Eos # 0.13 [employer] Work Phone: [employer] Immature Granulocyte <0.03 [employer] Work Phone: Absolute Lymph # 1.83 [employer] [facility] Work Phone: [facility] [place] # 0.70 [facility] Work Phone: Basophils (Bld) [#/Vol] 0.05 10*3/uL [employer] Work Phone: Basophils/100 WBC (Bld) 1 % 0 - 2 % [facility] [employer] Work Phone: Differential Type NOT REPORTED [employer] Phone: Eosinophils/100 WBC (Bld) 2 % 1 - 4 % [employer] Phone: Hematocrit (Bld) [Volume fraction] 44.6 % 36.3 - 47.1 % [employer] Phone: Hemoglobin.gastrointest inal spec 1 Ql (Stl) 14.6 g/dL 11.9 - 15.1 g/dL [employer] Work Phone: Immature granulocytes/100 WBC (Bld) 0 % 0 [employer] Phone: Interpretation and review of laboratory results Abnormal [employer] Phone: Lymphocytes/100 WBC (Bld) 21 % Low 24 - 43 % [employer] Phone: MCH (RBC) [Entitic mass] 30.6 pg 25.2 - 33.5 pg [employer] Work Phone: MCHC (RBC) [Mass/Vol] 32.7 g/dL 28.4 - 34.8 g/dL [employer] Phone: MCV (RBC) [Entitic vol] 93.5 fL 82.6 - 102.9 fL [employer] Phone: Monocytes/100 WBC (Bld) 8 % 3 - 12 % [facility] [employer] Work Phone: NRBC Automated 0.0 0.0 per 100 WBC [employer] Phone: Platelet distribution width (Bld) [Ratio] 14.1 % 11.8 - 14.4 % [employer] Phone: Platelet Estimate NOT REPORTED [employer] Phone: Platelet mean volume (Bld) [Entitic vol] 9.4 fL 8.1 - 13.5 fL [employer] Phone: Platelets (Bld) [#/Vol] 260 10*3/uL [employer] Phone: RBC (Bld) [#/Vol] 4.77 10*6/uL 3.95 - 5.11 m/uL [employer] Phone: RBC (Bld) [#/Vol] NOT REPORTED [employer] Phone: Segmented neutrophils/100 WBC (Bld) 68 % High 36 - 65 % [employer] Phone: Segs [employer] 6[employer]16 [employer] Work Phone: WBC (Bld) [#/Vol] 8.9 10*3/uL [employer] Phone: WBC (Bld) [#/Vol] NOT REPORTED [employer] Phone: [employer] Work Phone: Comprehensive Metabolic Pane l w/ Reflex to MGOrdered By: Kirk Barlow on 09-04-2020 Albumin [Mass/Vol] 4.5 g/dL 3.5 - 5.2 g/dL [employer] Phone: Albumin/Globulin [Mass ratio] 1.7 {ratio} [employer] Phone: ALP (Bld) [Catalytic activity/Vol] 48 U/L 35 - 104 U/L [employer] Phone: ALT [Catalytic activity/Vol] 14 U/L 5 - 33 U/L [employer] Phone: Anion gap [Moles/Vol] 11 mmol/L 9 - 17 mmol/L [employer] Phone: AST [Catalytic activity/Vol] 14 U/L <32 [employer] Phone: Bilirubin [Mass/Vol] 0.47 mg/dL 0.3 - 1 .2 mg/dL [employer] Phone: Calcium [Mass/Vol] 9.5 mg/dL 8.6 - 10. 4 mg/dL [employer] Phone: Chloride [Moles/Vol] 101 mmol/L 98 - 10 7 mmol/L [employer] Phone: CO2 [Moles/Vol] 25 mmol/L 20 - 31 mmol/L [employer] Phone: Creatinine [Mass/Vol] 0.71 mg/dL 0.50 - 0.90 mg/dL [employer] Phone: Free PSA/Total PSA [Mass fraction] 7.1 g/dL 6.4 - 8.3 g/dL [employer] Phone: GFR >60 >60 mL/min [employer] Phone: GFR Non- >60 >60 mL/min [employer] Phone: Glucose [Mass/Vol] 109 mg/dL High 70 - 99 mg/dL [employer] Phone: Interpretation and review of laboratory results Abnormal [employer] Phone: Potassium [Moles/Vol] 3.7 mmol/L 3.7 - 5.3 mmol/L [employer] Phone: Sodium [Moles/Vol] 137 mmol/L 135 - 144 mmol/L [employer] Phone: Urea nitrogen (BldV) [Mass/Vol] 9 mg/dL 6 - 20 mg/dL [employer] Phone: Urea nitrogen/Creatinine (Bld) [Mass ratio] 13 [employer] Phone: Laboratory - Chemistry and C hemistry - challengeOrdered By: Kirk Barlow on 09-04-2020 GFR/1.73 sq M.predicted MDRD (S/P/Bld) [Vol rate/Area] [employer] Phone: Comment on above: Average GFR for 30-3 9 years old: 107 mL/min/1.73sq m Chronic Kidney Disease: <60 mL/min/1.73sq m Kidney failure: <15 mL/min/1.73sq m eGFR calculated using average adult body mass. Additional eGFR calculator available at: http://www.[employer]/multiple_crcl_2012.htm Stage 1: Some kidney damage normal GFR Stage 2: Mild kidney damage GFR 60-89 Stage 3: Moderate kidney damage GFR 30-59 Stage 4: Severe kidney damage GFR 15-29 Stage 5: Severe kidney damage GFR <15 ESRD - chronic treatment by dialysis or transplant LipaseOrdered By: Kareem on 09-04-2020 Lipase [Catalytic activity/Vol] 13 U/L 13 - 60 U/L [employer] Phone: Microscopic UrinalysisOrdere d By: Kirk Yen on 09-04-2020 - [employer] Phone: Amorphous, UA NOT REPORTED None [employer] [facility] Work Phone: Bacteria, UA NOT REPORTED None [employer] Work Phone: Casts UA NOT REPORTED /LPF [employer] Work Phone: Crystals, UA NOT REPORTED None /HPF [employer] Work Phone: Epithelial Cells UA 0 TO 2 [employer] Work Phone: Mucus, UA NOT REPORTED None [employer] Work Phone: Other Observations UA NOT REPORTED NOT REQ. [facility] [employer] Work Phone: RBC, UA 0 TO 2 [facility] Phone: Renal Epithelial, UA NOT REPORTED 0 /HPF [employer] Work Phone: Trichomonas, UA NOT REPORTED None [facility] Work Phone: WBC, UA 0 TO 2 [facility] Phone: Yeast, UA NOT REPORTED None [employer] Work Phone: [employer] Phone: No Panel InformationOrdered By: Kirk Barlow on 09-04-2020 [employer] Phone: , UrineOrdered By: Kirk Barlow on 09-04-2020 Beta HCG ( test) Ql (U) Negative NEGATIVE [employer] Phone: Comment on above: Specimens with hCG l evels near the threshold of the test (25 mIU/mL) may give a negative or indeterminate result. In such cases, another test should be performed with a new specimen in 48-72 hours. If early is suspected clinically in this setting, correlation with quantitative serum b-hCG level is suggested. [employer] has confirmed the use of plasma for this test. This has not been cleared or approved by the U.S. Food and Drug Administration. The FDA has determined that such clearance is not necessary. [employer] Phone: US GALLBLADDER RUQOrdered By : Kirk Barlow on 09-04-2020 Unremarkable right u pper quadrant ultrasound. No cholelithiasis or findings to suggest acute cholecystitis. [employer] Phone: EXAMINATION: RIGHT U PPER QUADRANT ULTRASOUND [...] The visualized IVC appears within normal limits. [employer] Phone: Thomas, Mhpn Incoming Radiant Results From [email or web address] - 09/04/2020 4:47 PM EDT EXAMINATION: RIGHT [...] cholelithiasis or findings to suggest acute cholecystitis. [employer] Phone: [employer] Phone: Urinalysis, reflex to micros copicOrdered By: Kirk Barlow on 09-04-2020 Bilirubin Urine Negative NEGATIVE [employer] [facility] Work Phone: Color, UA YELLOW YELLOW [employer] Phone: Glucose, Ur Negative NEGATIVE [employer] Phone: Interpretation and review of laboratory results Abnormal [employer] Phone: Ketones Ql (U) Negative NEGATIVE [employer] Work Phone: Leukocyte esterase Test strip Ql (U) Negative NEGATIVE [employer] Phone: Nitrite, Urine Negative NEGATIVE [employer] Work Phone: pH, UA 6.5 [employer] Phone: Protein, UA Negative NEGATIVE [employer] Phone: Specific [place], UA 1.025 High [employer] Phone: Turbidity UA CLEAR CLEAR [employer] Phone: Urinalysis Comments NOT REPORTED [facility] [employer] Phone: Urine Hgb TRACE Abnormal NEGATIVE [facility] Phone: Urobilinogen, Urine Normal Normal [facility] Phone: [employer] Phone: XR ABDOMEN (KUB) (SINGLE AP VIEW)Ordered By: Kirk Barlow on 09-04-2020 No significant radiographic abnormality in the abdomen. [employer] Phone: EXAMINATION: ONE SUP INE XRAY VIEW(S) OF THE ABDOMEN 09/04/2020 3:28 pm COMPARISON: CT abdomen and pelvis June 01, 2020 HISTORY: ORDERING SYSTEM PROVIDED HISTORY: abd pain TECHNOLOGIST PROVIDED HISTORY: abd pain FINDINGS: Nonspecific but nonobstructive bowel gas pattern. Bilateral tubal occlusive device noted. No abnormal calcifications overlying the gallbladder urinary tract. No mass effect. Osseous structures grossly intact. [employer] Phone: Thomas, pn Incoming Radiant Results From [email or web address] - 09/04/2020 3:37 PM EDT EXAMINATION: ONE [...] No significant radiographic abnormality in the abdomen. [employer] Phone: [employer] Phone: SPECIMEN REJECTIONon 021 Ordered Test [id number] CDIF [employer] Phone: Reason for Rejection Unable to perform testing: Formed stool is not consistent with suspected diagnosis. [employer] Phone: Specimen source Nom (Unsp spec) .FECES [employer] Phone: - NOT REPORTED [employer] Phone: Amylaseon 06-01-2020 Amylase [Catalytic activity/Vol] 45 U/L 28 - 100 U/L [employer] Phone: CBC Auto Differentialon 05-14 Basophils (Bld) [#/Vol] 0.04 10*3/uL [employer] Phone: Basophils/100 WBC (Bld) 1 % 0 - 2 % [facility] [employer] Phone: Differential Type NOT REPORTED [employer] Phone: Eosinophils (Bld) [#/Vol] 0.13 10*3/uL [employer] Phone: Eosinophils/100 WBC (Bld) 2 % 1 - 4 % [employer] Phone: Erythrocyte distribution width (RBC) [Ratio] 13.4 % 11.8 - 14.4 % [employer] Phone: Hematocrit (Bld) [Volume fraction] 44.7 % 36.3 - 47.1 % [employer] Phone: Hemoglobin (Bld) [Mass/Vol] 14.7 g/dL 11.9 - 15.1 g/dL [employer] Phone: Immature granulocytes (Bld) [#/Vol] 0 % 0 [employer] Phone: Immature granulocytes (Bld) [#/Vol] 10*3/uL [employer] Phone: Lymphocytes (Bld) [#/Vol] 2.01 10*3/uL [employer] Phone: Lymphocytes/100 WBC (Bld) 28 % 24 - 43 % [employer] Work Phone: MCH (RBC) [Entitic mass] 30.1 pg 25.2 - 33.5 pg [employer] Phone: MCHC (RBC) [Mass/Vol] 32.9 g/dL 28.4 - 34.8 g/dL [employer] Work Phone: MCV (RBC) [Entitic vol] 91.6 fL 82.6 - 102.9 fL [employer] Work Phone: Monocytes (Bld) [#/Vol] 0.71 10*3/uL [employer] Phone: Monocytes/100 WBC (Bld) 10 % 3 - 12 % [facility] Phone: Platelet mean volume (Bld) [Entitic vol] 9.9 fL 8.1 - 13.5 fL [employer] Work Phone: Platelets (Bld) [#/Vol] NOT REPORTED [employer] Phone: Platelets (Bld) [#/Vol] 284 10*3/uL [employer] Phone: RBC (Bld) [#/Vol] 4.88 10*6/uL 3.95 - 5.11 m/uL [employer] Work Phone: RBC morphology finding Nom (Bld) NOT REPORTED [employer] Work Phone: Segmented neutrophils/100 WBC (Bld) 59 % 36 - 65 % [facility] Phone: Segs Absolute 4.23 [employer] Work Phone: WBC (Bld) [#/Vol] 7.1 10*3/uL [employer] Work Phone: WBC (Bld) [#/Vol] 0.0 10*3/uL 0.0 per 100 WBC [employer] Phone: WBC Morphology NOT REPORTED [employer] Work Phone: CT ABDOMEN PELVIS W IV CONTR AST Additional Contrast? Noneon 06-01-2020 Thomas, Mhpn Incoming Radiant Results From [employer]et[employer]is[employer]/Pacs - 06/01/2020 1:50 PM EST EXAMINATION: CT [...] the abdomen and pelvis as detailed above. [employer] Work Phone: EXAMINATION: CT OF Luis Eduardo HERRING ABDOMEN AND PELVIS WITH CONTRAST 06/01/2020 1:28 [...] air. Bones/Soft Tissues: No significant osseous abnormality. [employer] Phone: Borderline dilated jejunal bowel loops are noted in the left abdomen measuring up to approximately 3 cm but without evidence for obstruction. Otherwise negative CT examination of the abdomen and pelvis as detailed above. [employer] Phone: Comprehensive Metabolic Pane l w/ Reflex to MGon 06-01-2020 Albumin [Mass/Vol] 4.5 g/dL 3.5 - 5.2 g/dL [employer] Phone: Albumin/Globulin [Mass ratio] 1.7 {ratio} [employer] Phone: ALP [Catalytic activity/Vol] 55 U/L 35 - 104 U/L [employer] Phone: ALT [Catalytic activity/Vol] 11 U/L 5 - 33 U/L [employer] Phone: Anion gap [Moles/Vol] 11 mmol/L 9 - 17 mmol/L [employer] Phone: AST [Catalytic activity/Vol] 16 U/L <32 [employer] Phone: Bilirubin Ql (U) 0.31 mg/dL 0.3 - 1.2 mg/dL [employer] Phone: Bun/Cre Ratio 9 [employer] Work Phone: Calcium [Mass/Vol] 9.3 mg/dL 8.6 - 10. 4 mg/dL [employer] Phone: Chloride [Moles/Vol] 101 mmol/L 98 - 10 7 mmol/L [employer] Phone: CO2 [Moles/Vol] 24 mmol/L 20 - 31 mmol/L [employer] Phone: Creatinine [Mass/Vol] 0.78 mg/dL 0.5 - 0.9 mg/dL [employer] Phone: GFR >60 >60 mL/min [employer] Phone: GFR Non- >60 >60 mL/min [employer] Phone: Glucose [Mass/Vol] 93 mg/dL 70 - 99 mg/dL [employer] Phone: Potassium [Moles/Vol] 4.2 mmol/L 3.7 - 5.3 mmol/L [employer] Phone: Protein [Mass/Vol] 7.2 g/dL 6.4 - 8.3 g/dL [employer] Phone: Sodium [Moles/Vol] 136 mmol/L 135 - 144 mmol/L [employer] Phone: Urea nitrogen [Mass/Vol] 7 mg/dL 6 - 20 mg/dL [employer] Phone: HCG Qualitative, Serumon hCG Qual Negative NEGATIVE [employer] Phone: Comment on above: Specimens with hCG l evels near the threshold of the test (25 mIU/mL) may give a negative or indeterminate result. In such cases, another test should be performed with a new specimen in 48-72 hours. If early is suspected clinically in this setting, correlation with quantitative serum b-hCG level is suggested. [employer] has confirmed the use of plasma for this test. This has not been cleared or approved by the U.S. Food and Drug Administration. The FDA has determined that such clearance is not necessary. Lactic Acidon 06-01-2020 Lactate [Moles/Vol] 1.9 mmol/L 0.5 - 2. 2 mmol/L [employer] Phone: Lipaseon 06-01-2020 Interpretation and review of laboratory results Abnormal [employer] Work Phone: Lipase [Catalytic activity/Vol] 11 U/L Low 13 - 60 U/L [facility] Phone: Metabolic Panelon 06-01-2020 GFR/1.73 sq M predicted among non-blacks MDRD (S/P/Bld) [Vol rate/Area] [facility] Work Phone: Comment on above: Average GFR for 30-3 9 years old: 107 mL/min/1.73sq m Chronic Kidney Disease: <60 mL/min/1.73sq m Kidney failure: <15 mL/min/1.73sq m eGFR calculated using average adult body mass. Additional eGFR calculator available at: http://www.[employer]/multiple_crcl_2012.htm Stage 1: Some kidney damage normal GFR Stage 2: Mild kidney damage GFR 60-89 Stage 3: Moderate kidney damage GFR 30-59 Stage 4: Severe kidney damage GFR 15-29 Stage 5: Severe kidney damage GFR <15 ESRD - chronic treatment by dialysis or transplant Urinalysis, reflex to micros copicon 06-01-2020 Bilirubin Urine Negative NEGATIVE [facility] Work Phone: Color, UA YELLOW YELLOW [facility] Work Phone: Glucose, Ur Negative NEGATIVE [facility] Work Phone: Ketones Ql (U) Negative NEGATIVE [facility] [employer] Work Phone: Leukocyte esterase Test strip Ql (U) Negative NEGATIVE [facility] Work Phone: Nitrite, Urine Negative NEGATIVE [facility] [employer] Work Phone: pH, UA 8.5 [facility] [employer] Work Phone: Protein (U) [Mass/Vol] Negative NEGATIVE [facility] [employer] Work Phone: Specific [place], UA 1.020 [employer] Work Phone: Turbidity UA CLEAR CLEAR [facility] Work Phone: Urinalysis Comments NOT REPORTED [employer] Work Phone: Urine Hgb Negative NEGATIVE [facility] [employer] Phone: Urobilinogen, Urine Normal Normal [facility] [employer] Phone: Drug screen multi urineon Amphetamine Screen, Ur Negative NEGATIVE Me [facility] [place] Barbiturate Screen, Ur Negative NEGATIVE Me [facility] [place] Benzodiazepine Screen, Urine Negative NEGATIVE [facility] [place] Buprenorphine Urine Negative NEGATIVE [facility], [place] Cannabinoid Scrn, Ur Positive Abnormal NEGATIVE [facility] [place] Cocaine Metabolite, Urine Negative NEGATIVE [facility], [place] Interpretation and review of laboratory results Abnormal [facility], [place] MDMA, Urine NOT REPORTED NEGATIVE [facility] [place] Methadone Screen, Urine Negative NEGATIVE M [facility], [place] Methamphetamine, Urine Negative NEGATIVE [facility], [place] Opiates, Urine Negative NEGATIVE [facility], [place] Oxycodone Screen, Ur Negative NEGATIVE [facility], [place] Phencyclidine, Urine Negative NEGATIVE [facility], [place] Propoxyphene, Urine Negative NEGATIVE [facility], [place] Test Information NOT REPORTED [facility], [place] Tricyclic Antidepressants, Urine Negative NEGATIVE [facility], [place] Comment on above: Drug screen results are to be used for medical purposes only. All positive results are unconfirmed. Testing for employment or legal uses should be sent to a reference laboratory for confirmation. Microscopic Urinalysison Amorphous, UA NOT REPORTED None [facility] [place] [place] Bacteria, UA TRACE Abnormal None [facility] [place] Casts UA NOT REPORTED /LPF [facility] [place] Crystals, UA NOT REPORTED None /HPF [facility] [place] Epithelial Cells UA 0 TO 2 [facility] [place] Interpretation and review of laboratory results Abnormal [facility], [place] Mucus, UA TRACE Abnormal None [facility], [place] Other Observations UA NOT REPORTED NOT REQ. M [facility] [place] RBC (U) [#/Vol] 0 TO 2 [place] Renal Epithelial, UA NOT REPORTED 0 /HPF [place] Trichomonas, UA NOT REPORTED None [place] WBC, UA 0 TO 2 [place] Yeast, UA NOT REPORTED None [place] Troponinon 03-17-2020 Troponin I.cardiac [Mass/Vol] NOT REPORTED [place] Troponin T.cardiac [Mass/Vol] NOT REPORTED <0.03 ng/mL [place] Troponin, High Sensitivity <6 0 - 14 ng/L [place] Comment on above: High Sensitivity Troponin values cannot be compared with other Troponin methodologies. Patients with high levels of Biotin oral intake (i.e >5mg/day) may have falsely decreased Troponin levels. Samples collected within 8 hours of biotin intake may require additional information for diagnosis. Troponin I.cardiac [Mass/Vol] NOT REPORTED [place] Troponin T.cardiac [Mass/Vol] NOT REPORTED <0.03 ng/mL [place] Troponin, High Sensitivity <6 0 - 14 ng/L [place] Comment on above: High Sensitivity Troponin values cannot be compared with other Troponin methodologies. Patients with high levels of Biotin oral intake (i.e >5mg/day) may have falsely decreased Troponin levels. Samples collected within 8 hours of biotin intake may require additional information for diagnosis. Urinalysis Reflex to Culture on 03-17-2020 Bilirubin Urine Negative NEGATIVE [place] Color, UA YELLOW YELLOW [place] Glucose, Ur Negative NEGATIVE [place] Ketones Ql (U) Negative NEGATIVE [place] Leukocyte esterase Test strip Ql (U) Negative NEGATIVE [place] Nitrite, Urine Negative NEGATIVE [place] pH, UA 7.5 [place] Protein (U) [Mass/Vol] Negative NEGATIVE [place] Specific [place], UA 1.020 [place], [place] Turbidity UA CLEAR CLEAR [place], [place] Urinalysis Comments NOT REPORTED [place] Urine Hgb Negative NEGATIVE [place] Urobilinogen, Urine Normal Normal [facility] (SINGLE VIEW FRONTA L)on 03-17-2020 EXAMINATION: ONE XRA Y VIEW OF THE CHEST 03/17/2020 11:49 am COMPARISON: 12/26/2019 HISTORY: ORDERING SYSTEM PROVIDED HISTORY: chest pain sob FINDINGS: The lungs are without acute focal process. No effusion or pneumothorax. The cardiomediastinal silhouette is normal. The osseous structures are intact without acute process. [facility] Thomas, pn Incoming Radiant Results From [employer] - 03/17/2020 11:55 AM EST EXAMINATION: ONE XRAY VIEW OF THE CHEST 03/17/2020 11:49 am COMPARISON: 12/26/2019 HISTORY: ORDERING SYSTEM PROVIDED HISTORY: chest pain sob FINDINGS: The lungs are without acute focal process. No effusion or pneumothorax. The cardiomediastinal silhouette is normal. The osseous structures are intact without acute process. IMPRESSION: Unremarkable chest. [facility] Unremarkable chest. [facility] X[facility] FOOT RIGHT (MIN 3 VIEWS)o n 12-31-2019 No acute osseous abnormality. [facility] EXAMINATION: THREE X RAY VIEWS OF THE RIGHT FOOT 12/31/2019 1:18 am COMPARISON: None. HISTORY: ORDERING SYSTEM PROVIDED HISTORY: Foot pain. Injury. TECHNOLOGIST PROVIDED HISTORY: Foot pain. Injury. FINDINGS: There is no acute fracture. There is normal alignment of the tarsometatarsal joints. No acute joint abnormality. No focal osseous lesion. No focal soft tissue abnormality. [facility] Thomas, pn Incoming Radiant Results From [employer] - 12/31/2019 1:59 AM EDT EXAMINATION: THREE [...] tissue abnormality. IMPRESSION: No acute osseous abnormality. [facility] Cardiacon 12-26-2019 Cholesterol [Mass/Vol] 125 mg/dL (<200) [facility] Work Phone: Comment on above: Note: Cholesterol Gu idelines:<200 [id number] Borderline>240 UndesirableResponsible Observer: [employer]DEL[employer] ([id number]) Triglyceride [Mass/Vol] 50 mg/dL (<150) [facility] Work Phone: Comment on above: Note: Triglyceride G uidelines:<150 [id number] High>499 Very highBased on AHA Guidelines for fasting triglyceride, January 2012.Responsible Observer: [employer] ([id number]) Lipid Panelon 12-26-2019 Cholesterol [Mass/Vol] 125 mg/dL <200 [place] Comment on above: Cholesterol Guidelines: <200 Desirable 200-240 Borderline >240 Undesirable Cholesterol in HDL [Mass/Vol] 41 mg/dL >40 [place] Comment on above: HDL Guidelines: <40 Undesirable 40-59 Borderline >59 Desirable Cholesterol in LDL [Mass/Vol] 74 mg/dL 0 - 130 mg/dL [place] Comment on above: LDL Guidelines: <100 Desirable 100-129 Near to/above Desirable 130-159 Borderline >159 Undesirable Direct (measured) LDL and calculated LDL are not interchangeable tests. Cholesterol in VLDL [Mass/Vol] NOT REPORTED 1 - 30 mg/dL [place] Cholesterol.total/Le sterol in HDL [Mass ratio] 3 {ratio} <5 [place] Triglyceride [Mass/Vol] 50 mg/dL <150 M [place] Comment on above: Triglyceride Guidelines: <150 Desirable 150-199 Borderline 200-499 High >499 Very high Based on AHA Guidelines for fasting triglyceride, January 2012. Otheron 12-26-2019 Cholesterol,HDL 41 mg/dL (>40) [facility] Work Phone: Comment on above: Note: HDL Guidelines :<40 [id number] Borderline>59 DesirableResponsible Observer: [employer] ([id number]) Cholesterol,LDL 74 mg/dL (0-130) [facility] Work Phone: Comment on above: Note: LDL Guidelines :<100 [id number] Near to/above [id number] Borderline>159 UndesirableDirect (measured) LDL and calculated LDL are not interchangeable tests.Responsible Observer: [employer] ([id number]) Cholesterol,VLDL NOT REPORTED mg/dL (1-30) [facility] Work Phone: Cholesterol.total/Le sterol in HDL [Mass ratio] 3.0 {ratio} (<5) [facility] Work Phone: Comment on above: Note: Responsible Ob ware server: CEEV [employer]OFILE ([id number]) Performing Lab: see note [facility] Work Phone: Comment on above: Note: [facility] [address] [facility] [id number] Note: [facility] [address] [place] [address] Reported Physicians See Note [facility] Work Phone: Comment on above: Note: Reported Physi cians:Ordering: Peggy VillarealAttending: Peggy VillarealReferring: Peggy Villareal Thyroid Stim. Horm. 0.42 mIU/L (0.30-5. 00 ) [facility] Work Phone: Comment on above: Note: Responsible Ob ware server: [employer]ET [employer] ([id number]) TSH with Reflexon 12-26-2019 TSH Qn 0.42 m[IU]/L [place] XR CHEST (2 VW)on 12-26-2019 Unremarkable chest. [place] EXAMINATION: TWO XRA Y VIEWS OF THE CHEST 12/26/2019 11:13 am COMPARISON: 12/30/2018 HISTORY: ORDERING SYSTEM PROVIDED HISTORY: Chest pain on breathing FINDINGS: The lungs are without acute focal process. No effusion or pneumothorax. The cardiomediastinal silhouette is normal. The osseous structures are intact without acute process. [place], [place] Thomas, Mhpn Incoming Radiant Results From [email or web address] - 12/26/2019 12:01 PM EDT EXAMINATION: TWO XRAY VIEWS OF THE CHEST 12/26/2019 11:13 am COMPARISON: 12/30/2018 HISTORY: ORDERING SYSTEM PROVIDED HISTORY: Chest pain on breathing FINDINGS: The lungs are without acute focal process. No effusion or pneumothorax. The cardiomediastinal silhouette is normal. The osseous structures are intact without acute process. IMPRESSION: Unremarkable chest. [facility] Otheron 12-24-2019 No evidence acute fracture traumatic malalignment in the thoracic/spine. No evidence fracture of the pelvis [facility] EXAMINATION: ONE XRA Y VIEW OF THE [...] are maintained. Suspect mild facet arthropathy L5-S1. [facility] Thomas, Mhpn Incoming Radiant Results From TheySaye/Pacs - 12/24/2019 11:55 PM EDT EXAMINATION: ONE [...] thoracic/spine. No evidence fracture of the pelvis [place] Basic Metabolic Panelon Anion gap [Moles/Vol] 10 mmol/L 9 - 17 mmol/L [place] Bun/Cre Ratio 16 [place], [place] Calcium [Mass/Vol] 9.1 mg/dL 8.6 - 10. 4 mg/dL [place] Chloride [Moles/Vol] 104 mmol/L 98 - 10 7 mmol/L [place] CO2 [Moles/Vol] 25 mmol/L 20 - 31 mmol/L [place] Creatinine [Mass/Vol] 0.77 mg/dL 0.5 - 0.9 mg/dL [place] GFR >60 >60 mL/min [place], [place] GFR Non- >60 >60 mL/min [place] Glucose [Mass/Vol] 99 mg/dL 70 - 99 mg/dL [place] Potassium [Moles/Vol] 4.0 mmol/L 3.7 - 5.3 mmol/L [place] Sodium [Moles/Vol] 139 mmol/L 135 - 144 mmol/L [place] Urea nitrogen [Mass/Vol] 12 mg/dL 6 - 20 mg/dL [place] CBC Auto Differentialon Basophils (Bld) [#/Vol] 0.04 10*3/uL [place] Basophils/100 WBC (Bld) 1 % 0 - 2 % M [place] Differential Type NOT REPORTED [place] Eosinophils (Bld) [#/Vol] 0.23 10*3/uL [place] Eosinophils/100 WBC (Bld) 3 % 1 - 4 % [place] Erythrocyte distribution width (RBC) [Ratio] 13.6 % 11.8 - 14.4 % [place] Hematocrit (Bld) [Volume fraction] 41.0 % 36.3 - 47.1 % [place] Hemoglobin (Bld) [Mass/Vol] 13.0 g/dL 11.9 - 15.1 g/dL [place] Immature granulocytes (Bld) [#/Vol] 0 % 0 [place] Immature granulocytes (Bld) [#/Vol] 10*3/uL [place] Lymphocytes (Bld) [#/Vol] 2.23 10*3/uL [place] Lymphocytes/100 WBC (Bld) 28 % 24 - 43 % [place] MCH (RBC) [Entitic mass] 30.3 pg 25.2 - 33.5 pg [place] MCHC (RBC) [Mass/Vol] 31.7 g/dL 28.4 - 34.8 g/dL [place] MCV (RBC) [Entitic vol] 95.6 fL 82.6 - 102.9 fL [place] Monocytes (Bld) [#/Vol] 0.54 10*3/uL [place] Monocytes/100 WBC (Bld) 7 % 3 - 12 % [place] Platelet mean volume (Bld) [Entitic vol] 9.7 fL 8.1 - 13.5 fL [place] Platelets (Bld) [#/Vol] 257 10*3/uL [place] Platelets (Bld) [#/Vol] NOT REPORTED [place] RBC (Bld) [#/Vol] 4.29 10*6/uL 3.95 - 5.11 m/uL [place] RBC morphology finding Nom (Bld) NOT REPORTED [place] Segmented neutrophils/100 WBC (Bld) 61 % 36 - 65 % [place] Segs Absolute 4.80 [place] WBC (Bld) [#/Vol] 7.9 10*3/uL [place] WBC (Bld) [#/Vol] 0.0 10*3/uL 0.0 per 100 WBC [place] WBC Morphology NOT REPORTED [facility] Metabolic Panelon 12-14-2019 GFR/1.73 sq M predicted among non-blacks MDRD (S/P/Bld) [Vol rate/Area] [facility] Comment on above: Stage 1: Some kidney [...] body mass. Additional eGFR calculator available at: http://www.[employer]/multiple_crcl_2012.htm US NON OB TRANSVAGINALon Unremarkable pelvic ultrasound. No evidence of ovarian torsion. [facility] [place] Thomas, Mhpn Incoming Radiant Results From [employer] - 12/14/2019 12:42 PM EDT EXAMINATION: PELVIC [...] pelvic ultrasound. No evidence of ovarian torsion. [facility] EXAMINATION: PELVIC ULTRASOUND 12/14/2019 TECHNIQUE: Transvaginal pelvic [...] Free Fluid: No evidence of free fluid. [place] Urinalysis with Microscopico n 12-14-2019 Amorphous, UA NOT REPORTED None [place], [place] Bacteria, UA TRACE Abnormal None [place], [place] Bilirubin Urine SMALL Abnormal NEGATIVE [place] Casts UA NOT REPORTED /LPF [place], [place] Color, UA YELLOW YELLOW [place] Crystals, UA NOT REPORTED None /HPF [place], [place] Epithelial Cells UA 2 TO 5 [place], [place] Glucose, Ur Negative NEGATIVE [place] Interpretation and review of laboratory results Abnormal [place] Ketones Ql (U) 1+ Abnormal NEGATIVE [place] Leukocyte esterase Test strip Ql (U) Negative NEGATIVE [place] Mucus, UA 2+ Abnormal None [place] Nitrite, Urine Negative NEGATIVE [place] Other Observations UA NOT REPORTED NOT REQ. M [place] pH, UA 6.0 [place] Protein (U) [Mass/Vol] Negative NEGATIVE [place], [place] RBC (U) [#/Vol] 2 TO 5 [place] Renal Epithelial, UA NOT REPORTED 0 /HPF [place] Specific [place], UA >1.030 [place], [place] Trichomonas, UA NOT REPORTED None [facility] [place] Turbidity UA CLEAR CLEAR [place], [place] Urinalysis Comments NOT REPORTED [place] Urine Hgb Negative NEGATIVE [place] Urobilinogen, Urine Normal Normal [place] WBC, UA 2 TO 5 [place], [place] Yeast, UA NOT REPORTED None [place], [place] - [place] CBC Auto Differentialon 11-10 Basophils (Bld) [#/Vol] 0.05 10*3/uL [place] Basophils/100 WBC (Bld) 1 % 0 - 2 % [place] Differential Type NOT REPORTED [place] Eosinophils (Bld) [#/Vol] 0.23 10*3/uL [place] Eosinophils/100 WBC (Bld) 3 % 1 - 4 % [place] Erythrocyte distribution width (RBC) [Ratio] 13.6 % 11.8 - 14.4 % [place] Hematocrit (Bld) [Volume fraction] 42.6 % 36.3 - 47.1 % [place] Hemoglobin (Bld) [Mass/Vol] 13.9 g/dL 11.9 - 15.1 g/dL [place] Immature granulocytes (Bld) [#/Vol] 0 % 0 [place] Immature granulocytes (Bld) [#/Vol] 10*3/uL [place] Interpretation and review of laboratory results Abnormal [place] Lymphocytes (Bld) [#/Vol] 1.72 10*3/uL [place] Lymphocytes/100 WBC (Bld) 22 % Low 24 - 43 % [place] MCH (RBC) [Entitic mass] 30.3 pg 25.2 - 33.5 pg [place] MCHC (RBC) [Mass/Vol] 32.6 g/dL 28.4 - 34.8 g/dL [place] MCV (RBC) [Entitic vol] 93.0 fL 82.6 - 102.9 fL [place] Monocytes (Bld) [#/Vol] 0.61 10*3/uL [place] Monocytes/100 WBC (Bld) 8 % 3 - 12 % [place] Platelet mean volume (Bld) [Entitic vol] 9.4 fL 8.1 - 13.5 fL [place] Platelets (Bld) [#/Vol] NOT REPORTED [place] Platelets (Bld) [#/Vol] 266 10*3/uL [place] RBC (Bld) [#/Vol] 4.58 10*6/uL 3.95 - 5.11 m/uL [place] RBC morphology finding Nom (Bld) NOT REPORTED [place] Segmented neutrophils/100 WBC (Bld) 66 % High 36 - 65 % [place] Segs Absolute 5.26 [place] WBC (Bld) [#/Vol] 0.0 10*3/uL 0.0 per 100 WBC [place] WBC (Bld) [#/Vol] 7.9 10*3/uL [place] WBC Morphology NOT REPORTED [place] CT ABDOMEN PELVIS W IV CONTR [...] clinically warranted. *Few incidental/chronic findings as described. [place], [place] Thomas, Mhpn Incoming Radiant Results From [email or web address] - 11/29/2019 8:08 AM EDT EXAMINATION: CT [...] clinically warranted. *Few incidental/chronic findings as described. [place] EXAMINATION: [facility] OF [facility] ABDOMEN AND PELVIS WITH CONTRAST 11/29/2019 7:29 [...] air. Bones/Soft Tissues: No significant osseous abnormality. [place] Comprehensive Metabolic Pane l w/ Reflex to MGon 11-29-2019 Albumin [Mass/Vol] 4.4 g/dL 3.5 - 5.2 g/dL [place] Albumin/Globulin [Mass ratio] 1.8 {ratio} [place] ALP [Catalytic activity/Vol] 46 U/L 35 - 104 U/L [place] ALT [Catalytic activity/Vol] 10 U/L 5 - 33 U/L [place] Anion gap [Moles/Vol] 8 mmol/L Low 9 - 17 mmol/L [place] AST [Catalytic activity/Vol] 11 U/L <32 [place] Bilirubin Ql (U) 0.66 mg/dL 0.3 - 1.2 mg/dL [place] Bun/Cre Ratio 11 [place] Calcium [Mass/Vol] 9.2 mg/dL 8.6 - 10. 4 mg/dL [place] Chloride [Moles/Vol] 102 mmol/L 98 - 10 7 mmol/L [place] CO2 [Moles/Vol] 25 mmol/L 20 - 31 mmol/L [place] Creatinine [Mass/Vol] 0.81 mg/dL 0.5 - 0.9 mg/dL [place] GFR >60 >60 mL/min [place], [place] GFR Non- >60 >60 mL/min [place] Glucose [Mass/Vol] 114 mg/dL High 70 - 99 mg/dL [place] Potassium [Moles/Vol] 3.8 mmol/L 3.7 - 5.3 mmol/L [place] Protein [Mass/Vol] 6.9 g/dL 6.4 - 8.3 g/dL [place] Sodium [Moles/Vol] 135 mmol/L 135 - 144 mmol/L [place] Urea nitrogen [Mass/Vol] 9 mg/dL 6 - 20 mg/dL [place] HCG Qualitative, Serumon hCG Qual Negative NEGATIVE [place] Comment on above: Specimens with hCG l evels near the threshold of the test (25 mIU/mL) may give a negative or indeterminate result. In such cases, another test should be performed with a new specimen in 48-72 hours. If early is suspected clinically in this setting, correlation with quantitative serum b-hCG level is suggested. [employer] has confirmed the use of plasma for this test. This has not been cleared or approved by the U.S. Food and Drug Administration. The FDA has determined that such clearance is not necessary. Lipaseon 11-29-2019 Lipase [Catalytic activity/Vol] 9 U/L Low 13 - 60 U/L [place] Metabolic Panelon 11-29-2019 GFR/1.73 sq M predicted among non-blacks MDRD (S/P/Bld) [Vol rate/Area] [place], [place] Comment on above: Stage 1: Some [...] body mass. Additional eGFR calculator available at: http://www.Deltek.E Ink/multiple_crcl_2012.htm Otheron 11-29-2019 Interpretation and review of laboratory results Abnormal [place], [place] US NON OB TRANSVAGINALon EXAMINATION: PELVIC [...] free fluid cul-de-sac likely physiologic in nature. [place], [place], [place] Incoming Radiant Results From [email or web address] - 11/29/2019 9:01 AM EDT EXAMINATION: PELVIC [...] No follow-up imaging is recommended. Reference: Radiology 2009;256(3):196-13 [place], [place] 1. Likely mild hydrosalpinx as described. 2. Redemonstration of small right ovarian cyst, no follow-up imaging recommended guidelines below. RECOMMENDATIONS: 2.2 cm simple ovarian cyst. No follow-up imaging is recommended. Reference: Radiology 2010 Sep;256(3):731-74 [facility], [place] Urinalysis, reflex to micros copicon 11-29-2019 Bilirubin Urine Negative NEGATIVE [facility], [place] Color, UA YELLOW YELLOW [place], [place] Glucose, Ur Negative NEGATIVE [place] Ketones Ql (U) Negative NEGATIVE [place], [place] Leukocyte esterase Test strip Ql (U) Negative NEGATIVE [facility], [place] Nitrite, Urine Negative NEGATIVE [facility], [place] pH, UA 8.0 [place], [place] Protein (U) [Mass/Vol] Negative NEGATIVE Me [facility], [place] Specific [place], UA 1.020 [place], [place] Turbidity UA CLEAR CLEAR [place], [place] Urinalysis Comments NOT REPORTED [facility], [place] Urine Hgb Negative NEGATIVE [place] Urobilinogen, Urine Normal Normal [place] 2019-nCoV RNA to ODHon 10-10 2019-nCoV RNA to OD Not Detected Normal Not Detect Ad [facility] Comment on above: Order Comment: Must have [...] authorities. Comment: This assay was developed by [facility] and distributed under an Emergency Use Authorization (EUA) granted by the FDA for the qualitative detection of 2019-nCoV nucleic acid. Fact Sheet for healthcare Providers: https://www.fda.gov/media/067648/download Fact Sheet for Patents https://www.fda.gov/media/557237/download TESTED BY: [facility] [place] [address] phone CLIA #:[id number] Performed By: #### C [id number] #### [facility] [address] [place] [address] 32667 Culture,Urineon 10-10-2019 Culture,Urine Culture,Urine: No significant growth. Normal [facility] Comment on above: Performed By: #### C UU #### [facility] [address] [place] [address] 14548 Complete Blood Counton 10-08 Basophils (Bld) [#/Vol] 0.1 K/mcL Normal 0.0-0.2 A [facility] Comment on above: Performed By: #### C BC #### [facility] [address] [place] [address] 08611 Basophils/100 WBC (Bld) 0.8 % Normal A [facility] Comment on above: Performed By: #### C BC #### [facility] [address] [place] [address] 49588 Eosinophils (Bld) [#/Vol] 0.2 K/mcL Normal 0.0-0.[address] [facility] Comment on above: Performed By: #### C BC #### [facility] [address] [place] [address] 97450 Eosinophils/100 WBC (Bld) 2.6 % Normal [facility] Comment on above: Performed By: #### C BC #### [facility] [address] [place] [address] 08565 Erythrocyte distribution width (RBC) [Ratio] 13.3 % Normal 11.5-14.[address] [facility] Comment on above: Performed By: #### C BC #### [facility] [address] [place] [address] 35040 Hematocrit (Bld) [Volume fraction] 40.0 % Normal 35.3-44.[address] [facility] Comment on above: Performed By: #### C BC #### [facility] [address] [place] [address] 16939 Hemoglobin (Bld) [Mass/Vol] 13.3 g/dL Normal 11.5-15.[address] [facility] Comment on above: Performed By: #### C BC #### [facility] [address] [place] [address] 11954 Immature granulocytes/100 WBC (Bld) 0.2 % Normal 0-[address] [facility] Comment on above: Performed By: #### C BC #### [facility] [address] [place] [address] 35057 Lymphocytes (Bld) [#/Vol] 2.0 K/mcL Normal 0.6-4.[address] [facility] Comment on above: Performed By: #### C BC #### [facility] [address] [place] [address] 00275 Lymphocytes/100 WBC (Bld) 31.5 % Normal [facility] Comment on above: Performed By: #### C BC #### [facility] [address] [place] [address] 25625 MCH (RBC) [Entitic mass] 31.1 pg Normal 28.0-33.[address] [facility] Comment on above: Performed By: #### C BC #### [facility] [address] [place] [address] 46140 MCH (RBC) [Entitic mass] 33.3 g/dL Normal 31.6-35.[address] [facility] Comment on above: Performed By: #### C BC #### [facility] [address] [place] [address] 23367 MCV (RBC) [Entitic vol] 93.7 fL Normal 83.0-100.0 A [facility] Comment on above: Performed By: #### C BC #### [facility] [address] [place] [address] 59194 Monocytes (Bld) [#/Vol] 0.7 K/mcL Normal 0.0-1.3 A [facility] Comment on above: Performed By: #### C BC #### [facility] [address] [place] [address] 09064 Monocytes/100 WBC (Bld) 10.2 % Normal A [facility] Comment on above: Performed By: #### C BC #### [facility] [address] [place] [address] 89146 Neutrophils (Bld) [#/Vol] 3.5 K/mcL Normal 1.6-8.[address] [facility] Comment on above: Performed By: #### C BC #### [facility] [address] [place] [address] 57518 Platelet mean volume (Bld) [Entitic vol] 9.4 fL Normal 9.4-12.[address] [facility] Comment on above: Performed By: #### C BC #### [facility] [address] [place] [address] 11029 Platelets (Bld) [#/Vol] 258 K/mcL Normal 140-400 A [facility] Comment on above: Performed By: #### C BC #### [facility] [address] [place] [address] 13874 RBC (Bld) [#/Vol] 4.27 M/mcL Normal 3.82-4.[address] [facility] Comment on above: Performed By: #### C BC #### [facility] [address] [place] [address] 54088 Segmented neutrophils/100 WBC (Bld) 54.7 % Normal [facility] Comment on above: Performed By: #### C BC #### [facility] [address] [place] [address] 56698 WBC (Bld) [#/Vol] 6.4 K/mcL Normal 4.3-11.[address] [facility] Comment on above: Performed By: #### C BC #### [facility] [address] [place] [address] 86400 Comprehensive Metabolic Pane ayush 10-09-2019 Albumin [Mass/Vol] 4.2 g/dL Normal 3.5-5.[address] [facility] Comment on above: Performed By: #### C MP, LIP #### [facility] [address] [place] [address] 43472 Albumin/Globulin [Mass ratio] 1.9 {ratio} Normal 1.1-2.[address] [facility] Comment on above: Performed By: #### C MP, LIP #### [facility] [address] [place] [address] 95505 ALP [Catalytic activity/Vol] 47 Units/L Normal 34-[address] [facility] Comment on above: Performed By: #### C MP, LIP #### [facility] [address] [place] [address] 14350 ALT [Catalytic activity/Vol] 12 Units/L Normal 7-[address] [facility] Comment on above: Performed By: #### C MP, LIP #### [facility] [address] [place] [address] 08554 AST [Catalytic activity/Vol] 11 Units/L Low 13-[address] [facility] Comment on above: Performed By: #### C MP, LIP #### [facility] [address] [place] [address] 22586 Bilirubin [Mass/Vol] 0.5 mg/dL Normal 0.3-1.0 [facility] Comment on above: Performed By: #### C MP, LIP #### [facility] [address] [place] [address] 07004 Calcium [Mass/Vol] 8.8 mg/dL Normal 8.6-10.[address] [facility] Comment on above: Performed By: #### C MP, LIP #### [facility] [address] [place] [address] 86120 Chloride [Moles/Vol] 106 mmol/L Normal 98-107 [facility] Comment on above: Performed By: #### C MP, LIP #### [facility] [address] [place] [address] 20481 CO2 [Moles/Vol] 27 mmol/L Normal 23-[address] [facility] Comment on above: Performed By: #### C MP, LIP #### [facility] [address] [place] [address] 48928 Creatinine [Mass/Vol] 0.88 mg/dL Normal 0.60-1.20 [facility] Comment on above: Performed By: #### C MP, LIP #### [facility] [address] [place] [address] 74591 eGFR For Americans > 60 Normal > [address] [facility] Comment on above: Result Comment: eGFR = Estimated Glomerular Filtration Rate reported as mL/min/1.73 square meters Chronic Kidney Disease: < 60; Kidney failure: < 15 Performed By: #### C MP, LIP #### [facility] [address] [place] [address] 58194 eGFR For Non- Americans > 60 Normal > [address] [facility] Comment on above: Performed By: #### C MP, LIP #### [facility] [address] [place] [address] 72803 Globulin (S) [Mass/Vol] 2.2 g/dL Low 2.4-3.5 A [facility] Comment on above: Performed By: #### C MP, LIP #### [facility] [address] [place] [address] 92454 Glucose [Mass/Vol] 87 mg/dL Normal 70-[address] [facility] Comment on above: Performed By: #### C MP, LIP #### [facility] [address] [place] [address] 83696 Osmolality,Calculated 286 Normal 280-300 [facility] Comment on above: Performed By: #### C MP, LIP #### [facility] [address] [place] [address] 38576 Potassium [Moles/Vol] 3.9 mmol/L Normal 3.5-5.1 [facility] Comment on above: Performed By: #### C MP, LIP #### [facility] [address] [place] [address] 19812 Protein [Mass/Vol] 6.4 g/dL Normal 6.4-8.[address] [facility] Comment on above: Performed By: #### C MP, LIP #### [facility] [address] [place] [address] 22010 Sodium [Moles/Vol] 139 mmol/L Normal 136-[address] [facility] Comment on above: Performed By: #### C MP, LIP #### [facility] [address] [place] [address] 25724 Urea nitrogen [Mass/Vol] 8 mg/dL Normal 6-[address] [facility] Comment on above: Performed By: #### C MP, LIP #### [facility] [address] [place] [address] 46147 Urea nitrogen/Creatinine [Mass ratio] 9 mg/mg Normal 6-[address] [facility] Comment on above: Performed By: #### C MP, LIP #### [facility] [address] [place] [address] 75077 Drug Screen, Urineon 020 Amphetamine Screen,Urine Negative Normal Wchswp=[address] [facility] Comment on above: Performed By: #### U DS #### [facility] [address] [place] [address] 19896 Barbiturate Screen,Urine Negative Normal Refdhk=[address] [facility] Comment on above: Performed By: #### U DS #### [facility] [address] [place] [address] 03912 Benzodiazepines Screen,Urine Negative Normal Zceogv=[address] [facility] Comment on above: Performed By: #### U DS #### [facility] [address] [place] [address] 91429 Buprenorphine Screen,Urine Negative Normal Cutoff=[address] [facility] Comment on above: Performed By: #### U DS #### [facility] [address] [place] [address] 41062 Cannabinoid Screen,Urine Positive Abnormal Cutoff = [address] [facility] Comment on above: Result Comment: Unco nfirmed presumptive positive. Refer to Urine Drug Screen Interpretation result for interpretative guidelines. Performed By: #### U DS #### [facility] [address] [place] [address] 90689 Cocaine Screen,Urine Negative Normal Cutoff= [address] [facility] Comment on above: Performed By: #### U DS #### [facility] [address] [place] [address] 48186 Opiate Screen,Urine Negative Normal Rathen=[address] [facility] Comment on above: Performed By: #### U DS #### [facility] [address] [place] [address] 37846 Phencyclidine Screen,Urine Negative Normal Cutoff=[address] [facility] Comment on above: Performed By: #### U DS #### [facility] [address] [place] [address] Ur. Drug Screen Interpretation See Below Normal [facility] Comment on above: Result Comment: This is [...] request. Performed By: #### U DS #### [facility] [address] [place] [address] Emergency Documentationon Emergency Documentation [facility] [address] [place] [address] Emergency Department Note Signed PRELIMINARY DRAFT REPORT UNTIL ELECTRONICALLY SIGNED PATIENT: Abrahan Woods MR#: [id number] : 1990 AGE/SEX: 29 / F ADMITTED: 10/09/19 OUTSIDE LOCN: LOCATION: [facility] ATTENDING: cc: PCP NO; Disposition Clinical Impression: [...] it will be r eviewed by the center human resources manager and/or radiologist. If the review changes [...] need to find a physician: Go to [email or web address] or call: [facility]: [phone] [facility]: [phone] [facility]: [phone] Prescriptions: levETIRAcetam [Keppra] 250 mg PO BID [...] She denies any recent travel outside the [facility] or sick contacts. She did move here 2 weeks ago from the [facility] and that is why she is out [...] pH 8.0 (5.0-8.0) pH Units Ur Specific [place] 1.015 (1.010-1.025) Urine Protein Negative (Neg-Trace) mg/dL [...] Urine pH (5.0-8.0) pH Units Ur Specific [place] (1.010-1.025) Urine Protein (Neg-Trace) mg/dL Urine Glucose [...] By: Elsie Brink MD Signed By: 10/09/19 1506 DD/ 1312 Initialized By: [id number] [facility] Lipaseon 10-09-2019 Lipase [Catalytic activity/Vol] 9 Units/L Low 11-[address] [facility] Comment on above: Performed By: #### C MP, LIP #### [facility] [address] [place] [address] [id number] Test Result, Urine on 10-09-2019 Beta HCG ( test) Ql (U) Negative Normal Negative [facility] Comment on above: Performed By: #### U PREG #### [facility] [address] [place] [address] 16555 Urinalysis Reflex Cult Micro on 10-09-2019 Bacteria LM.HPF (Urine sed) [#/Area] Few Normal None-Few [facility] Comment on above: Performed By: #### U AREF #### [facility] [address] [place] [address] 52192 Culture Indicated,Urine YES Abnormal NO A [facility] Comment on above: Performed By: #### U AREF #### [facility] [address] [place] [address] 94343 RBC LM.HPF (Urine sed) [#/Area] 0-3 Normal 0-[address] [facility] Comment on above: Performed By: #### U AREF #### [facility] [address] [place] [address] 80180 Squamous Epithelial Cell,Urine Few Normal None-Few [facility] Comment on above: Performed By: #### U AREF #### [facility] [address] [place] [address] 18116 WBC LM.HPF (Urine sed) [#/Area] 0-3 Normal 0-[address] [facility] Comment on above: Performed By: #### U AREF #### [facility] [address] [place] [address] 65752 Bilirubin,Urine Negative Normal Negative [facility] Comment on above: Performed By: #### U AREF #### [facility] [address] [place] [address] 06067 Blood,Urine Small Abnormal Negative [facility] Comment on above: Performed By: #### U AREF #### [facility] [address] [place] [address] 11762 Clarity (U) Clear Normal Clear [facility] Comment on above: Performed By: #### U AREF #### [facility] [address] [place] [address] 70524 Color (U) Yellow Normal Yellow [facility] Comment on above: Performed By: #### U AREF #### [facility] [address] [place] [address] 51330 Glucose Ql (U) Normal Normal Normal [facility] Comment on above: Performed By: #### U AREF #### [facility] [address] [place] [address] 62024 Ketones Ql (U) Negative Normal Negative [facility] Comment on above: Performed By: #### U AREF #### [facility] [address] [place] [address] 15916 Leukocyte esterase Test strip Ql (U) Negative Normal Negative [facility] Comment on above: Performed By: #### U AREF #### [facility] [address] [place] [address] 04064 Nitrite,Urine Negative Normal Negative [facility] Comment on above: Performed By: #### U AREF #### [facility] [address] [place] [address] 30433 pH (U) 8.0 pH Units Normal 5.0-8.[address] [facility] Comment on above: Performed By: #### U AREF #### [facility] [address] [place] [address] 37601 Protein (U) [Mass/Vol] Negative Normal Neg-Trace [facility] Comment on above: Performed By: #### U AREF #### [facility] [address] [place] [address] 52796 Specific [place],Urine 1.015 Normal 1.010 -1.[address] [facility] Comment on above: Performed By: #### U AREF #### [facility] [address] [place] [address] 14639 Urobilinogen,Urine Normal Normal Normal [facility] Comment on above: Performed By: #### U AREF #### [facility] [address] [place] [address] 36333 XR CHEST STANDARD (2 VW)on 0 12-30-2018 No acute cardiopulmo nary pathology. [place] EXAMINATION: TWO XRA Y VIEWS OF [...] structures and soft tissues are grossly intact. [place], [place], [place] Incoming Radiant Results From [facility] - 12/30/2018 6:42 AM EDT EXAMINATION: TWO [...] grossly intact. IMPRESSION: No acute cardiopulmonary pathology. [place] Vital Signs Date Time Vital Sign Value Performing Clinician Eriki eric 03-08-2023 10:41-0500 Body height 149.86 cm Srinivasa Jhaveri CNP Work Phone: [facility] Work Phone: 03-08-2023 10:41-0500 Body mass index (BMI) [Ratio] 33.8 kg/m2 Srinivasa Jhaveri CNP Work Phone: [facility] Work Phone: 03-08-2023 10:41-0500 Body surface area Derived from formula 1.7 m2 Srinivasa Jhaveri CNP Work Phone: [facility] Work Phone: 03-08-2023 10:41-0500 Body weight 75.81 kg Srinivasa Jhaveri CNP Work Phone: [facility] Work Phone: 03-08-2023 10:41-0500 Diastolic blood pressure 83 mm[Hg] Srinivasa Jhaveri CNP Work Phone: [facility] Work Phone: 03-08-2023 10:41-0500 Heart rate 81 /min Srinivasa Jhaveri CNP Work Phone: [facility] Work Phone: 03-08-2023 10:41-0500 Inhaled oxygen concentration 21 % Srinivasa Jhaveri CNP Work Phone: [facility] Work Phone: 03-08-2023 10:41-0500 Inhaled oxygen flow rate 0 L/min Srinivasa Jhaveri CNP Work Phone: [facility] Work Phone: 03-08-2023 10:41-0500 Respiratory rate 18 /min Srinivasa Jhaveri CNP Work Phone: [facility] Work Phone: 03-08-2023 10:41-0500 SaO2% (BldA) [Mass fraction] 98 % Srinivasa Jhaveri CNP Work Phone: [facility] Work Phone: 03-08-2023 10:41-0500 Systolic blood pressure 131 mm[Hg] Srinivasa Jhaveri CNP Work Phone: [facility] Work Phone: 02-19-2023 10:15-0500 Body height 149.86 cm Srinivasa Jhaveri CNP Work Phone: [facility] Work Phone: 02-19-2023 10:15-0500 Body mass index (BMI) [Ratio] 33.2 kg/m2 Srinivasa Jhaveri CNP Work Phone: [facility] Work Phone: 02-19-2023 10:15-0500 Body surface area Derived from formula 1.7 m2 Srinivasa Jhaveri CNP Work Phone: [facility] Work Phone: 02-19-2023 10:15-0500 Body temperature 98.8 [degF] Srinivasa Jhaveri CNP Work Phone: [facility] Work Phone: 02-19-2023 10:15-0500 Body weight 74.66 kg Srinivasa Jhaveri CNP Work Phone: [facility] Work Phone: 02-19-2023 10:15-0500 Diastolic blood pressure 82 mm[Hg] Srinivasa Jhaveri CNP Work Phone: [facility] Work Phone: 02-19-2023 10:15-0500 Heart rate 80 /min Srinivasa Jhaveri CNP Work Phone: [facility] Work Phone: 02-19-2023 10:15-0500 SaO2% (BldA) [Mass fraction] 98 % Srinivasa Jhaveri CNP Work Phone: [facility] Work Phone: 02-19-2023 10:15-0500 Systolic blood pressure 114 mm[Hg] Srinivasa Jhaveri CNP Work Phone: [facility] Work Phone: 02-05-2023 10:44-0400 Body height 149.86 cm Srinivasa Jhaveri CNP Work Phone: [facility] Work Phone: 02-05-2023 10:44-0400 Body mass index (BMI) [Ratio] 33.1 kg/m2 Srinivasa Jhaveri CNP Work Phone: [facility] Work Phone: 02-05-2023 10:44-0400 Body surface area Derived from formula 1.7 m2 Srinivasa Jhaveri CNP Work Phone: [facility] Work Phone: 02-05-2023 10:44-0400 Body temperature 98.1 [degF] Srinivasa Jhaveri CNP Work Phone: [facility] Work Phone: 02-05-2023 10:44-0400 Body weight 74.39 kg Srinivasa Jhaveri CNP Work Phone: [facility] Work Phone: 02-05-2023 10:44-0400 Diastolic blood pressure 71 mm[Hg] Srinivasa Jhaveri CNP Work Phone: [facility] Work Phone: 02-05-2023 10:44-0400 Heart rate 71 /min Srinivasa Jhaveri CNP Work Phone: [facility] Work Phone: 02-05-2023 10:44-0400 SaO2% (BldA) [Mass fraction] 98 % Srinivasa Jhaveri CNP Work Phone: [facility] Work Phone: 02-05-2023 10:44-0400 Systolic blood pressure 106 mm[Hg] Srinivasa Jhaveri CNP Work Phone: [facility] Work Phone: 01-28-2023 10:57-0400 Body height 149.86 cm Srinivasa Jhaveri CNP Work Phone: [facility] Work Phone: 01-28-2023 10:57-0400 Body mass index (BMI) [Ratio] 32.7 kg/m2 Srinivasa Jhaveri CNP Work Phone: [facility] Work Phone: 01-28-2023 10:57-0400 Body surface area Derived from formula 1.7 m2 Srinivasa Jhaveri CNP Work Phone: [facility] Work Phone: 01-28-2023 10:57-0400 Body temperature 98.4 [degF] Srinivasa Jhaveri CNP Work Phone: [facility] Work Phone: 01-28-2023 10:57-0400 Body weight 73.39 kg Srinivasa Jhaveri CNP Work Phone: [facility] Work Phone: 01-28-2023 10:57-0400 Diastolic blood pressure 75 mm[Hg] Srinivasa Jhaveri CNP Work Phone: [facility] Work Phone: 01-28-2023 10:57-0400 Heart rate 63 /min Srinivasa Jhaveri CNP Work Phone: [facility] Work Phone: 01-28-2023 10:57-0400 SaO2% (BldA) [Mass fraction] 98 % Srinivasa Jhaveri CNP Work Phone: [facility] Work Phone: 01-28-2023 10:57-0400 Systolic blood pressure 118 mm[Hg] Srinivasa Jhaveri CNP Work Phone: [facility] Work Phone: 12-31-2022 11:55-0400 Body height 149.86 cm Srinivasa Jhaveri CNP Work Phone: [facility] Work Phone: 12-31-2022 11:55-0400 Body mass index (BMI) [Ratio] 32.9 kg/m2 Srinivasa Jhaveri CNP Work Phone: [facility] Work Phone: 12-31-2022 11:55-0400 Body surface area Derived from formula 1.7 m2 Srinivasa Jhaveri CNP Work Phone: [facility] Work Phone: 12-31-2022 11:55-0400 Body temperature 98.1 [degF] Srinivasa Jhaveri CNP Work Phone: [facility] Work Phone: 12-31-2022 11:55-0400 Body weight 73.94 kg Srinivasa Jhaveri CNP Work Phone: [facility] Work Phone: 12-31-2022 11:55-0400 Diastolic blood pressure 76 mm[Hg] Srinivasa Jhaveri CNP Work Phone: [facility] Work Phone: 12-31-2022 11:55-0400 Heart rate 66 /min Srinivasa Jhaveri CNP Work Phone: [facility] Work Phone: 12-31-2022 11:55-0400 SaO2% (BldA) [Mass fraction] 96 % Srinivasa Jhaveri CNP Work Phone: [facility] Work Phone: 12-31-2022 11:55-0400 Systolic blood pressure 108 mm[Hg] Srinivasa Jhaveri CNP Work Phone: [facility] Work Phone: 11-30-2022 09:05-0400 Body height 149.86 cm Srinivasa Jhaveri CNP Work Phone: [facility] Work Phone: 11-30-2022 09:05-0400 Body mass index (BMI) [Ratio] 33.3 kg/m2 Sirnivasa Jhaveri CNP Work Phone: [facility] Work Phone: 11-30-2022 09:05-0400 Body surface area Derived from formula 1.7 m2 Srinivasa Jhaveri CNP Work Phone: [facility] Work Phone: 11-30-2022 09:05-0400 Body temperature 98.4 [degF] Srinivasa Jhaveri CNP Work Phone: [facility] Work Phone: 11-30-2022 09:05-0400 Body weight 74.75 kg Srinivasa Jhaveri CNP Work Phone: [facility] Work Phone: 11-30-2022 09:05-0400 Diastolic blood pressure 77 mm[Hg] Srinivasa Jhaveri CNP Work Phone: [facility] Work Phone: 11-30-2022 09:05-0400 Heart rate 59 /min Srinivasa Jhaveri CNP Work Phone: [facility] Work Phone: 11-30-2022 09:05-0400 SaO2% (BldA) [Mass fraction] 97 % Srinivasa Jhaveri CNP Work Phone: [facility] Work Phone: 11-30-2022 09:05-0400 Systolic blood pressure 124 mm[Hg] Srinivasa Jhaveri CNP Work Phone: [facility] Work Phone: 06-07-2022 23:13-0500 SaO2% (BldA) [Mass fraction] 100 % Serenity Will DO Work Phone: [employer] 06-07-2022 23:10-0500 Diastolic blood pressure 93 mm[Hg] Serenity Will DO Work Phone: [facility] [employer] 06-07-2022 23:10-0500 Systolic blood pressure 136 mm[Hg] Serenity Will DO Work Phone: [facility] [employer] 06-07-2022 21:49-0500 Body temperature 98.6 [degF] Serenity Will DO Work Phone: [employer] 06-07-2022 21:49-0500 Heart rate 85 /min Serenity Will DO Work Phone: [facility] [employer] 06-07-2022 21:49-0500 Respiratory rate 18 /min Serenity Will DO Work Phone: [facility] [employer] 01-22-2022 10:53-0400 Body height 149.86 cm Traci Dennison [employer] Work Phone: [facility] Work Phone: 01-22-2022 10:53-0400 Body mass index (BMI) [Ratio] 30.3 kg/m2 Traci Dennison [employer] Work Phone: [facility] Work Phone: 01-22-2022 10:53-0400 Body surface area Derived from formula 1.6 m2 Traci Dennison [employer] Work Phone: [facility] Work Phone: 01-22-2022 10:53-0400 Body temperature 97.6 [degF] Traci Dennison [employer] Work Phone: [facility] Work Phone: 01-22-2022 10:53-0400 Body weight 67.95 kg Traci Dennison CNP Work Phone: [facility] Work Phone: 01-22-2022 10:53-0400 Diastolic blood pressure 80 mm[Hg] Traci Dennison CNP Work Phone: [facility] Work Phone: 01-22-2022 10:53-0400 Heart rate 76 /min Traci Dennison CNP Work Phone: [facility] Work Phone: 01-22-2022 10:53-0400 SaO2% (BldA) [Mass fraction] 99 % Traci Dennison CNP Work Phone: [facility] Work Phone: 01-22-2022 10:53-0400 Systolic blood pressure 120 mm[Hg] Traci Dennison CNP Work Phone: [facility] Work Phone: 12-11-2021 11:36-0400 Body height 149.86 cm Traci Dennison CNP Work Phone: [facility] Work Phone: 12-11-2021 11:36-0400 Body mass index (BMI) [Ratio] 26.9 kg/m2 Traci Dennison CNP Work Phone: [facility] Work Phone: 12-11-2021 11:36-0400 Body surface area Derived from formula 1.55 m2 Traci Dennison CNP Work Phone: [facility] Work Phone: 12-11-2021 11:36-0400 Body surface area Derived from formula 1.6 m2 Traci Dennison CNP Work Phone: [facility] Work Phone: 12-11-2021 11:36-0400 Body temperature 97.6 [degF] Traci Dennison CNP Work Phone: [facility] Work Phone: 12-11-2021 11:36-0400 Body weight 60.33 kg Traci Dennison CNP Work Phone: [facility] Work Phone: 12-11-2021 11:36-0400 Diastolic blood pressure 78 mm[Hg] Traci Dennison CNP Work Phone: [facility] Work Phone: 12-11-2021 11:36-0400 Heart rate 61 /min Traci Dennison CNP Work Phone: [facility] Work Phone: 12-11-2021 11:36-0400 SaO2% (BldA) [Mass fraction] 99 % Traci Dennison CNP Work Phone: [facility] Work Phone: 12-11-2021 11:36-0400 Systolic blood pressure 98 mm[Hg] Traci Dennison CNP Work Phone: [facility] Work Phone: 11-25-2021 12:49-0400 Body height 149.86 cm Traci Dennison CNP Work Phone: [facility] Work Phone: 11-25-2021 12:49-0400 Body mass index (BMI) [Ratio] 27.2 kg/m2 Traci Dennison CNP Work Phone: [facility] Work Phone: 11-25-2021 12:49-0400 Body surface area Derived from formula 1.56 m2 Traci Dennison CNP Work Phone: [facility] Work Phone: 11-25-2021 12:49-0400 Body surface area Derived from formula 1.6 m2 Traci Dennison CNP Work Phone: [facility] Work Phone: 11-25-2021 12:49-0400 Body temperature 98.6 [degF] Traci Juma [employer] Work Phone: [facility] Work Phone: 11-25-2021 12:49-0400 Body weight 61.05 kg Traci Dennison [employer] Work Phone: [facility] Work Phone: 11-25-2021 12:49-0400 Diastolic blood pressure 82 mm[Hg] Traci Dennison [employer] Work Phone: [facility] Work Phone: 11-25-2021 12:49-0400 Heart rate 60 /min Traci Juma [employer] Work Phone: [facility] Work Phone: 11-25-2021 12:49-0400 SaO2% (BldA) [Mass fraction] 98 % Traci Dennison [employer] Work Phone: [facility] Work Phone: 11-25-2021 12:49-0400 Systolic blood pressure 118 mm[Hg] Traci Juma [employer] Work Phone: [facility] Work Phone: 11-12-2021 09:21-0400 Body height 147.3 cm Myrtlejerry Bergeron DO Work Phone: [employer] 11-12-2021 09:21-0400 Body mass index (BMI) [Ratio] 28.22 kg/m2 Myrtle Bergeron DO Work Phone: [employer] 11-12-2021 09:21-0400 Body temperature 97.9 [degF] Myrtle Bergeron DO Work Phone: [employer] 11-12-2021 09:21-0400 Body weight 61.24 kg Myrtle Bergeron DO Work Phone: [employer] 11-12-2021 09:21-0400 Diastolic blood pressure 72 mm[Hg] Myrtle Bergeron DO Work Phone: [facility] [employer] 11-12-2021 09:21-0400 Heart rate 68 /min Myrtle Bergeron DO Work Phone: [facility] [employer] 11-12-2021 09:21-0400 Respiratory rate 20 /min Myrtle Bergeron DO Work Phone: [facility] [employer] 11-12-2021 09:21-0400 SaO2% (BldA) [Mass fraction] 100 % Myrtle Bergeron DO Work Phone: [facility] [employer] 11-12-2021 09:21-0400 Systolic blood pressure 112 mm[Hg] Myrtle Bergeron DO Work Phone: [facility] [employer] 09-01-2021 16:43-0400 Body temperature 99.19 [degF] Traci Dennison APRN - [employer] Work Phone: [employer] 09-01-2021 16:43-0400 Diastolic blood pressure 73 mm[Hg] Traci Dennison APRN - [employer] Work Phone: [employer] 09-01-2021 16:43-0400 Heart rate 88 /min Traci Dennison APRN - [employer] Work Phone: [facility] [employer] 09-01-2021 16:43-0400 Respiratory rate 15 /min Traci Dennison APRN - [employer] Work Phone: [employer] 09-01-2021 16:43-0400 SaO2% (BldA) [Mass fraction] 100 % Traci Dennison APRN - [employer] Work Phone: [employer] 09-01-2021 16:43-0400 Systolic blood pressure 116 mm[Hg] Traci Dennison APRN - [employer] Work Phone: [facility] 08-13-2021 11:32-0400 Body height 149.86 cm Traci Dennison CNP Work Phone: [facility] Work Phone: 08-13-2021 11:32-0400 Body mass index (BMI) [Ratio] 28.2 kg/m2 Traci Dennison CNP Work Phone: [facility] Work Phone: 08-13-2021 11:32-0400 Body surface area Derived from formula 1.58 m2 Traci Dennison CNP Work Phone: [facility] Work Phone: 08-13-2021 11:32-0400 Body surface area Derived from formula 1.6 m2 Traci Dennison CNP Work Phone: [facility] Work Phone: 08-13-2021 11:32-0400 Body temperature 98.2 [degF] Traci Dennison CNP Work Phone: [facility] Work Phone: 08-13-2021 11:32-0400 Body weight 63.41 kg Traci Dennison CNP Work Phone: [facility] Work Phone: 08-13-2021 11:32-0400 Diastolic blood pressure 72 mm[Hg] Traci Dennison CNP Work Phone: [facility] Work Phone: 08-13-2021 11:32-0400 Heart rate 73 /min Traci Dennison CNP Work Phone: [facility] Work Phone: 08-13-2021 11:32-0400 Heart Rate Rhythm 1 1 Traci Dennison CNP Work Phone: [facility] Work Phone: 08-13-2021 11:32-0400 SaO2% (BldA) [Mass fraction] 99 % Traci Dennison CNP Work Phone: [facility] Work Phone: 08-13-2021 11:32-0400 Systolic blood pressure 108 mm[Hg] Traci Juma [employer] Work Phone: [facility] Work Phone: 08-11-2021 11:45-0400 Diastolic blood pressure 60 mm[Hg] Braydon Sierra DO Work Phone: [employer] 08-11-2021 11:45-0400 SaO2% (BldA) [Mass fraction] 98 % Braydon Rigo DO Work Phone: [employer] 08-11-2021 11:45-0400 Systolic blood pressure 100 mm[Hg] Braydon Malloryan DO Work Phone: [employer] 08-11-2021 09:59-0400 Body mass index (BMI) [Ratio] 29.26 kg/m2 Braydon Rigo DO Work Phone: [facility] 08-11-2021 09:59-0400 Body temperature 97.2 [degF] Braydon Wilmattan DO Work Phone: [facility] 08-11-2021 09:59-0400 Body weight 63.5 kg Braydon Sierra DO Work Phone: [facility] 08-11-2021 09:59-0400 Heart rate 82 /min Braydon Malloryan DO Work Phone: [facility] 08-11-2021 09:59-0400 Respiratory rate 18 /min Braydon Wilmattan DO Work Phone: [employer] 07-17-2021 10:36-0400 Body height 149.86 cm Traci Dennison CNP Work Phone: [facility] Work Phone: 07-17-2021 10:36-0400 Body mass index (BMI) [Ratio] 28.5 kg/m2 Traci Dennison CNP Work Phone: [facility] Work Phone: 07-17-2021 10:36-0400 Body surface area Derived from formula 1.59 m2 Traci Dennison CNP Work Phone: [facility] Work Phone: 07-17-2021 10:36-0400 Body surface area Derived from formula 1.6 m2 Traci Dennison CNP Work Phone: [facility] Work Phone: 07-17-2021 10:36-0400 Body temperature 98.7 [degF] Traci Dennison CNP Work Phone: [facility] Work Phone: 07-17-2021 10:36-0400 Body weight 64.05 kg Traci Dennison CNP Work Phone: [facility] Work Phone: 07-17-2021 10:36-0400 Diastolic blood pressure 76 mm[Hg] Traci Dennison CNP Work Phone: [facility] Work Phone: 07-17-2021 10:36-0400 Heart rate 75 /min Traci Dennison CNP Work Phone: [facility] Work Phone: 07-17-2021 10:36-0400 Heart Rate Rhythm 1 1 Traci Dennison CNP Work Phone: [facility] Work Phone: 07-17-2021 10:36-0400 SaO2% (BldA) [Mass fraction] 97 % Traci Dennison CNP Work Phone: [facility] Work Phone: 07-17-2021 10:36-0400 Systolic blood pressure 114 mm[Hg] Traci Dennison ABENA Work Phone: [facility] Work Phone: 07-03-2021 11:15-0400 Respiratory rate 18 /min Darren House MD [facility] [employer] 07-03-2021 10:09-0400 Body temperature 97.81 [degF] [facility] 07-03-2021 10:09-0400 Diastolic blood pressure 85 mm[Hg] [facility] 07-03-2021 10:09-0400 Heart rate 87 /min Darren House MD [facility] [employer] 07-03-2021 10:09-0400 SaO2% (BldA) [Mass fraction] 100 % Darren House MD [facility] [employer] 07-03-2021 10:09-0400 Systolic blood pressure 124 mm[Hg] Darren House MD [facility] [employer] 06-06-2021 17:25-0500 Diastolic blood pressure 78 mm[Hg] Peggy Thrasher APRN - [employer] Work Phone: [facility] [employer] 06-06-2021 17:25-0500 Heart rate 72 /min Peggy Thrasher [employer] Work Phone: [employer] 06-06-2021 17:25-0500 SaO2% (BldA) [Mass fraction] 98 % Peggy Thrasher [employer] Work Phone: [facility] [employer] 06-06-2021 17:25-0500 Systolic blood pressure 138 mm[Hg] Peggy Thrasher APRN - [employer] Work Phone: [facility] [employer] 06-06-2021 14:52-0500 Body mass index (BMI) [Ratio] 28.22 kg/m2 Peggy Thrasher APRN - [employer] Work Phone: [employer] 06-06-2021 14:52-0500 Body temperature 98.4 [degF] Peggy Thrasher APRN - [employer] Work Phone: [employer] 06-06-2021 14:52-0500 Body weight 61.24 kg Peggy Thrasher [employer] Work Phone: [facility] [employer] 06-06-2021 14:52-0500 Respiratory rate 16 /min Peggy Wolfe [employer] Work Phone: [facility] [employer] 04-15-2021 11:16-0500 Body height 149.86 cm Traci Dennison CNP Work Phone: [facility] Work Phone: 04-15-2021 11:16-0500 Body mass index (BMI) [Ratio] 29.1 kg/m2 Traci Dennison CNP Work Phone: [facility] Work Phone: 04-15-2021 11:16-0500 Body surface area Derived from formula 1.6 m2 Traci Dennison CNP Work Phone: [facility] Work Phone: 04-15-2021 11:16-0500 Body temperature 97.6 [degF] Traci Dennison CNP Work Phone: [facility] Work Phone: 04-15-2021 11:16-0500 Body weight 65.32 kg Traci Dennison CNP Work Phone: [facility] Work Phone: 04-15-2021 11:16-0500 Diastolic blood pressure 72 mm[Hg] Traci Dennison CNP Work Phone: [facility] Work Phone: 04-15-2021 11:16-0500 Heart rate 80 /min Traci Dennison CNP Work Phone: [facility] Work Phone: 04-15-2021 11:16-0500 Respiratory rate 18 /min Traci Dennison [employer] Work Phone: [facility] Work Phone: 04-15-2021 11:16-0500 SaO2% (BldA) [Mass fraction] 98 % Traci Dennison CNP Work Phone: [facility] Work Phone: 04-15-2021 11:16-0500 Systolic blood pressure 120 mm[Hg] Traci Dennison [employer] Work Phone: [facility] Work Phone: 04-03-2021 14:04-0500 Body height 149.86 cm Peggy Thrasher CNP Work Phone: [facility] Work Phone: 04-03-2021 14:04-0500 Body mass index (BMI) [Ratio] 28 kg/m2 Peggy Thrasher CNP Work Phone: [facility] Work Phone: 04-03-2021 14:04-0500 Body surface area Derived from formula 1.58 m2 Peggy Thrasher CNP Work Phone: [facility] Work Phone: 04-03-2021 14:04-0500 Body surface area Derived from formula 1.6 m2 Traci Dennison CNP Work Phone: [facility] Work Phone: 04-03-2021 14:04-0500 Body temperature 99.2 [degF] Peggy Thrasher CNP Work Phone: [facility] Work Phone: 04-03-2021 14:04-0500 Body weight 62.96 kg Peggy Thrasher CNP Work Phone: [facility] Work Phone: 04-03-2021 14:04-0500 Diastolic blood pressure 60 mm[Hg] Peggy Thrasher CNP Work Phone: [facility] Work Phone: 04-03-2021 14:04-0500 Heart rate 92 /min Peggy Thrasher CNP Work Phone: [facility] Work Phone: 04-03-2021 14:04-0500 Respiratory rate 18 /min Peggy Thrasher CNP Work Phone: [facility] Work Phone: 04-03-2021 14:04-0500 SaO2% (BldA) [Mass fraction] 95 % Peggy Thrasher CNP Work Phone: [facility] Work Phone: 04-03-2021 14:04-0500 Systolic blood pressure 110 mm[Hg] Peggy Thrasher CNP Work Phone: [facility] Work Phone: 02-14-2021 10:31-0400 Body height 149.86 cm Peggy Thrasher CNP Work Phone: [facility] Work Phone: 02-14-2021 10:31-0400 Body mass index (BMI) [Ratio] 28.2 kg/m2 Peggy Thrasher CNP Work Phone: [facility] Work Phone: 02-14-2021 10:31-0400 Body surface area Derived from formula 1.58 m2 Peggy Thrasher CNP Work Phone: [facility] Work Phone: 02-14-2021 10:31-0400 Body surface area Derived from formula 1.6 m2 Traci Dennison [employer] Work Phone: [facility] Work Phone: 02-14-2021 10:31-0400 Body temperature 96.9 [degF] Peggy Thrasher CNP Work Phone: [facility] Work Phone: 02-14-2021 10:31-0400 Body weight 63.41 kg Peggy Thrasher CNP Work Phone: [facility] Work Phone: 02-14-2021 10:31-0400 Diastolic blood pressure 68 mm[Hg] Peggy Thrasher CNP Work Phone: [facility] Work Phone: 02-14-2021 10:31-0400 Heart rate 87 /min Peggy Thrasher CNP Work Phone: [facility] Work Phone: 02-14-2021 10:31-0400 SaO2% (BldA) [Mass fraction] 97 % Peggy Thrasher CNP Work Phone: [facility] Work Phone: 02-14-2021 10:31-0400 Systolic blood pressure 118 mm[Hg] Peggy Thrasher CNP Work Phone: [facility] Work Phone: 02-07-2021 11:47-0400 Body mass index (BMI) [Ratio] 29.26 kg/m2 Serenity Will DO Work Phone: [employer] Work Phone: 02-07-2021 11:47-0400 Body temperature 99.39 [degF] Serenity Will DO Work Phone: [facility] Work Phone: 02-07-2021 11:47-0400 Body weight 63.5 kg Serenity Will DO Work Phone: [facility] Work Phone: 02-07-2021 11:47-0400 Diastolic blood pressure 79 mm[Hg] Serenity Will DO Work Phone: [facility] Work Phone: 02-07-2021 11:47-0400 Heart rate 93 /min Serenity Will DO Work Phone: [facility] Work Phone: 02-07-2021 11:47-0400 Respiratory rate 16 /min Serenity Will [employer] Work Phone: [facility] Work Phone: 02-07-2021 11:47-0400 SaO2% (BldA) [Mass fraction] 99 % Serenity Will [employer] Work Phone: [employer] Phone: 02-07-2021 11:47-0400 Systolic blood pressure 123 mm[Hg] Serenity Will DO Work Phone: [employer] Phone: 02-05-2021 17:14-0400 Body height 147.3 cm Мария Yee [employer] Work Phone: [employer] Phone: 02-05-2021 17:14-0400 Body mass index (BMI) [Ratio] 28.22 kg/m2 Мария Yee [employer] Work Phone: [employer] Phone: 02-05-2021 17:14-0400 Body temperature 98.6 [degF] Мария Yee DO Work Phone: [facility] Work Phone: 02-05-2021 17:14-0400 Body weight 61.24 kg Мария Yee [employer] Work Phone: [employer] Phone: 02-05-2021 17:14-0400 Diastolic blood pressure 87 mm[Hg] Мария Yee DO Work Phone: [employer] Phone: 02-05-2021 17:14-0400 Heart rate 87 /min Мария Yee [employer] Work Phone: [facility] Work Phone: 02-05-2021 17:14-0400 Respiratory rate 18 /min Мария Yee DO Work Phone: [facility] Work Phone: 02-05-2021 17:14-0400 SaO2% (BldA) [Mass fraction] 99 % Мария Yee DO Work Phone: [facility] Work Phone: 02-05-2021 17:14-0400 Systolic blood pressure 111 mm[Hg] Мария Yee DO Work Phone: [facility] Work Phone: 01-29-2021 14:00-0400 Body height 144.8 cm Jarrod Sofia MD Work Phone: [facility] Work Phone: 01-29-2021 14:00-0400 Body mass index (BMI) [Ratio] 30.3 kg/m2 Jarrod Sofia MD Work Phone: [facility] Work Phone: 01-29-2021 14:00-0400 Body temperature 99 [degF] Jarrod Sofia MD Work Phone: [facility] Work Phone: 01-29-2021 14:00-0400 Body weight 63.5 kg Jarrod Sofia MD Work Phone: [employer] Work Phone: 01-29-2021 14:00-0400 Diastolic blood pressure 76 mm[Hg] Jarrod Sofia MD Work Phone: [facility] Work Phone: 01-29-2021 14:00-0400 Heart rate 80 /min Jarrod Sofia MD Work Phone: [facility] Work Phone: 01-29-2021 14:00-0400 Respiratory rate 18 /min Jarrod Sofia MD Work Phone: [facility] Work Phone: 01-29-2021 14:00-0400 SaO2% (BldA) [Mass fraction] 99 % Jarrod Sofia MD Work Phone: [facility] Work Phone: 01-29-2021 14:00-0400 Systolic blood pressure 124 mm[Hg] Jarrod Sofia MD Work Phone: [facility] Work Phone: 01-01-2021 13:54-0400 Body height 144.78 cm Peggy Thrasher CNP Work Phone: [facility] Work Phone: 01-01-2021 13:54-0400 Body mass index (BMI) [Ratio] 31.4 kg/m2 Peggy Thrasher CNP Work Phone: [facility] Work Phone: 01-01-2021 13:54-0400 Body surface area Derived from formula 1.57 m2 Peggy Thrasher CNP Work Phone: [facility] Work Phone: 01-01-2021 13:54-0400 Body weight 65.77 kg Peggy Thrasher CNP Work Phone: [facility] Work Phone: 11-16-2020 11:18-0400 Diastolic blood pressure 79 mm[Hg] Peggy Anna Marie [employer] Work Phone: [employer] Work Phone: 11-16-2020 11:18-0400 Systolic blood pressure 107 mm[Hg] Peggy Anna Marie [employer] Work Phone: [employer] Work Phone: 11-16-2020 11:17-0400 Body temperature 98.6 [degF] Peggy Thrasher [employer] Work Phone: [facility] Work Phone: 11-16-2020 11:17-0400 Heart rate 67 /min Peggy Thrasher [employer] Work Phone: [facility] Work Phone: 11-16-2020 11:17-0400 Respiratory rate 16 /min Peggy Thrasher [employer] Work Phone: [facility] Work Phone: 11-16-2020 11:17-0400 SaO2% (BldA) [Mass fraction] 100 % Peggy Thrasher APRN - [employer] Work Phone: [facility] Work Phone: 10-08-2020 21:55-0400 Body temperature 97.9 [degF] Narinder Jimenez MD Work Phone: [facility] Work Phone: 10-08-2020 21:54-0400 Diastolic blood pressure 70 mm[Hg] Narinder Jimenez MD Work Phone: [facility] Work Phone: 10-08-2020 21:54-0400 Systolic blood pressure 140 mm[Hg] Narinder Jimenez MD Work Phone: [facility] Work Phone: 10-08-2020 21:53-0400 Heart rate 78 /min Narinder Jimenez MD Work Phone: [facility] Work Phone: 10-08-2020 21:53-0400 Respiratory rate 17 /min Narinder Jimenez MD Work Phone: [facility] Work Phone: 10-08-2020 21:53-0400 SaO2% (BldA) [Mass fraction] 100 % Narinder Jimenez MD Work Phone: [facility] Work Phone: 09-04-2020 15:47-0400 Diastolic blood pressure 65 mm[Hg] Peggy Thrasher APRN - [employer] Work Phone: [facility] Work Phone: 09-04-2020 15:47-0400 Heart rate 59 /min Peggy Thrasher APRN [employer] Work Phone: [facility] Work Phone: 09-04-2020 15:47-0400 Respiratory rate 16 /min Peggy Thrasher APRN [employer] Work Phone: [facility] Work Phone: 09-04-2020 15:47-0400 SaO2% (BldA) [Mass fraction] 99 % Peggy Thrasher [employer] Work Phone: [facility] Work Phone: 09-04-2020 15:47-0400 Systolic blood pressure 102 mm[Hg] Peggy Thrasher APRN - [employer] Work Phone: [facility] Work Phone: 09-04-2020 14:33-0400 Body height 147.3 cm Peggy Thrasher APRN [employer] Work Phone: [facility] Work Phone: 09-04-2020 14:33-0400 Body mass index (BMI) [Ratio] 29.26 kg/m2 Peggy Thrasher APRN [employer] Work Phone: [facility] Work Phone: 09-04-2020 14:33-0400 Body temperature 98.4 [degF] Peggy Thrasher APRN [employer] Work Phone: [facility] Work Phone: 09-04-2020 14:33-0400 Body weight 63.5 kg Peggy Thrasher APRN [employer] Work Phone: [facility] Work Phone: 06-18-2020 19:27-0500 Body Temperature 97.9 [degF] Katlin Reaves [facility] Work Phone: 06-18-2020 19:27-0500 BP Diastolic 66 mm[Hg] Katlin Reaves [facility] Work Phone: 06-18-2020 19:27-0500 BP Systolic 123 mm[Hg] Katlin Reaves [facility] Work Phone: 06-18-2020 19:27-0500 Pulse (Heart Rate) 105 /min Katlin Reaves [facility] Work Phone: 06-18-2020 19:27-0500 Pulse Oximetry 99 % Katlin Reaves [facility] Work Phone: 06-18-2020 19:27-0500 Respiratory Rate 17 /min Katlin Reaves [facility] Work Phone: 06-03-2020 18:37-0500 BMI (Body Mass Index) 29.1 kg/m2 [facility] Work Phone: 06-03-2020 18:37-0500 Body Temperature 98.9 [degF] [facility] Work Phone: 06-03-2020 18:37-0500 Body weight 65.32 kg [facility] Work Phone: 06-03-2020 18:37-0500 BP Diastolic 78 mm[Hg] [facility] Work Phone: 06-03-2020 18:37-0500 BP Systolic 108 mm[Hg] [facility] Work Phone: 06-03-2020 18:37-0500 BSA (Body Surface Area) 1.6 m2 [facility] Work Phone: 06-03-2020 18:37-0500 Height 149.86 cm [facility] Work Phone: 06-03-2020 18:37-0500 Pulse (Heart Rate) 79 /min [facility] Work Phone: 06-03-2020 18:37-0500 Pulse Oximetry 98 % [facility] Work Phone: 06-03-2020 18:37-0500 Respiratory Rate 18 /min [facility] Work Phone: 06-03-2020 18:37-0500 SaO2% (BldA) [Mass fraction] 98 % [facility] Work Phone: [facility] Work Phone: 06-01-2020 13:17-0500 BP Diastolic 63 mm[Hg] [facility] Work Phone: 06-01-2020 13:17-0500 BP Systolic 134 mm[Hg] [facility] Work Phone: 06-01-2020 13:17-0500 Pulse Oximetry 100 % [facility] Work Phone: 06-01-2020 12:58-0500 Pulse (Heart Rate) 67 /min [facility] Work Phone: 06-01-2020 12:58-0500 Respiratory Rate 20 /min [facility] Work Phone: 06-01-2020 12:29-0500 BMI (Body Mass Index) 26.26 kg/m2 [facility] Work Phone: 06-01-2020 12:29-0500 Body Temperature 99 [degF] [facility] Work Phone: 06-01-2020 12:29-0500 Body weight 58.97 kg [facility] Work Phone: 03-17-2020 14:15-0500 BP Diastolic 70 mm[Hg] [facility] [place] 03-17-2020 14:15-0500 BP Systolic 103 mm[Hg] [facility] [place] 03-17-2020 14:15-0500 Pulse Oximetry 98 % Kalpesh Sampson [facility] [place] 03-17-2020 09:46-0500 BMI (Body Mass Index) 26.26 kg/m2 Kalpesh Sampson [facility] [place], [place] 03-17-2020 09:46-0500 Body Temperature 98.49 [degF] Kalpesh Sampson [facility], [place] 03-17-2020 09:46-0500 Body weight 58.97 kg Kalpesh Sampson [facility] [place] 03-17-2020 09:46-0500 Pulse (Heart Rate) 75 /min Kalpeshtrini Dillard [facility], [place] 03-17-2020 09:46-0500 Respiratory Rate 18 /min Kalpeshtrini Dillard [facility], [place] 01-26-2020 10:59-0400 BMI (Body Mass Index) 20.1 kg/m2 [facility] Work Phone: 01-26-2020 10:59-0400 Body Temperature 99.6 [degF] [facility] Work Phone: 01-26-2020 10:59-0400 Body weight 61.69 kg [facility] Work Phone: 01-26-2020 10:59-0400 BP Diastolic 62 mm[Hg] [facility] Work Phone: 01-26-2020 10:59-0400 BP Systolic 110 mm[Hg] [facility] Work Phone: 01-26-2020 10:59-0400 BSA (Body Surface Area) 1.75 m2 [facility] Work Phone: 01-26-2020 10:59-0400 Flow Rate 0 L/min [facility] Work Phone: 01-26-2020 10:59-0400 Height 175.26 cm [facility] Work Phone: 01-26-2020 10:59-0400 Inhaled Oxygen Concentration 21 % [facility] Work Phone: 01-26-2020 10:59-0400 Pulse (Heart Rate) 85 /min [facility] Work Phone: 01-26-2020 10:59-0400 Pulse Oximetry 99 % [facility] Work Phone: 01-26-2020 10:59-0400 Respiratory Rate 18 /min [facility] Work Phone: 01-24-2020 14:15-0400 BP Diastolic 62 mm[Hg] [facility] Work Phone: 01-24-2020 14:15-0400 BP Systolic 110 mm[Hg] [facility] Work Phone: 01-08-2020 13:09-0400 BMI (Body Mass Index) 27.3 kg/m2 [facility] Work Phone: 01-08-2020 13:09-0400 Body Temperature 97.1 [degF] [facility] Work Phone: 01-08-2020 13:09-0400 Body weight 61.24 kg [facility] Work Phone: 01-08-2020 13:09-0400 BP Diastolic 60 mm[Hg] [facility] Work Phone: 01-08-2020 13:09-0400 BP Systolic 100 mm[Hg] [facility] Work Phone: 01-08-2020 13:09-0400 BSA (Body Surface Area) 1.56 m2 [facility] Work Phone: 01-08-2020 13:09-0400 Height 149.86 cm [facility] Work Phone: 01-08-2020 13:09-0400 Pulse (Heart Rate) 74 /min [facility] Work Phone: 01-08-2020 13:09-0400 Pulse Oximetry 98 % [facility] Work Phone: 01-08-2020 13:09-0400 Respiratory Rate 14 /min [facility] Work Phone: 12-31-2019 01:01-0400 BP Diastolic 48 mm[Hg] [facility] , [place] 12-31-2019 01:01-0400 BP Systolic 115 mm[Hg] [facility] , [place] 12-31-2019 01:01-0400 Pulse (Heart Rate) 71 /min [facility] [place], [place] 12-31-2019 01:01-0400 Pulse Oximetry 100 % [facility] [place] , [place] 12-31-2019 01:01-0400 Respiratory Rate 12 /min [facility] [place] 12-31-2019 00:59-0400 Body Temperature 98.2 [degF] [facility] [place] 12-25-2019 13:07-0400 BMI (Body Mass Index) 26.4 kg/m2 [facility] Work Phone: 12-25-2019 13:07-0400 Body Temperature 97.8 [degF] [facility] Work Phone: 12-25-2019 13:07-0400 Body weight 59.24 kg [facility] Work Phone: 12-25-2019 13:07-0400 BP Diastolic 80 mm[Hg] [facility] Work Phone: 12-25-2019 13:07-0400 BP Systolic 110 mm[Hg] [facility] Work Phone: 12-25-2019 13:07-0400 BSA (Body Surface Area) 1.54 m2 [facility] Work Phone: 12-25-2019 13:07-0400 Height 149.86 cm [facility] Work Phone: 12-25-2019 13:07-0400 Pulse (Heart Rate) 87 /min [facility] Work Phone: 12-25-2019 13:07-0400 Pulse Oximetry 99 % [facility] Work Phone: 12-25-2019 13:07-0400 Respiratory Rate 18 /min [facility] Work Phone: 12-24-2019 22:49-0400 Body Temperature 97 [degF] Jarrod EiVILOOP [facility] [place] 12-24-2019 22:49-0400 BP Diastolic 98 mm[Hg] Jarrod Scali [facility] , [place] 12-24-2019 22:49-0400 BP Systolic 144 mm[Hg] [facility]rod E[facility]Written [facility] [place] 12-24-2019 22:49-0400 Pulse (Heart Rate) 87 /min [facility] [place] 12-24-2019 22:49-0400 Pulse Oximetry 97 % Jarrod Sofia [facility] [place] , [place] 12-24-2019 22:49-0400 Respiratory Rate 18 /min Jarrod Sampson [facility] [place] [place] 12-14-2019 14:21-0400 BP Diastolic 61 mm[Hg] Natan Lopez [facility] [place], [place] 12-14-2019 14:21-0400 BP Systolic 104 mm[Hg] Natan Lopez [facility] [place], [place] 12-14-2019 14:21-0400 Pulse (Heart Rate) 59 /min Natan Sampson [facility] [place], [place] 12-14-2019 14:21-0400 Respiratory Rate 14 /min Natan Sampson [facility], [place] 12-14-2019 12:52-0400 Pulse Oximetry 98 % [facility] [place] 12-14-2019 09:54-0400 BMI (Body Mass Index) 26.26 kg/m2 Natan Lopez [facility], [place] 12-14-2019 09:54-0400 Body Temperature 97.9 [degF] [facility] [place] [place] 12-14-2019 09:54-0400 Body weight 58.97 kg [facility] [place] [place] 12-14-2019 09:54-0400 Height 149.9 cm [facility] [place] [place] 11-29-2019 09:00-0400 BP Diastolic 60 mm[Hg] Reginokia MayJeff [facility] , [place] 11-29-2019 09:00-0400 BP Systolic 99 mm[Hg] [facility] , [place] 11-29-2019 06:33-0400 Pulse Oximetry 100 % Regino Aguilar [facility] , [place] 11-29-2019 06:31-0400 BMI (Body Mass Index) 27.17 kg/m2 [facility] [place] 11-29-2019 06:31-0400 Body Temperature 97.9 [degF] Regino Aguilar [facility], [place] 11-29-2019 06:31-0400 Body weight 58.97 kg Regino Aguilar [facility] , [place] 11-29-2019 06:31-0400 Height 147.3 cm [facility] , [place] 11-29-2019 06:31-0400 Pulse (Heart Rate) 76 /min Regino Sampson [facility], [place] 11-29-2019 06:31-0400 Respiratory Rate 18 /min Regino Maysain [facility], [place] 12-30-2018 05:48-0400 Body Temperature 97.39 [degF] Regino Maysain [facility], [place] 12-30-2018 05:48-0400 BP Diastolic 77 mm[Hg] Regino Jeff [facility] , [place] 12-30-2018 05:48-0400 BP Systolic 142 mm[Hg] Regino Maysain [facility] , [place] 12-30-2018 05:48-0400 Pulse (Heart Rate) 74 /min Regino Aguilar [facility], [place] 12-30-2018 05:48-0400 Pulse Oximetry 99 % Regino Jeff [facility] , [place] 12-30-2018 05:48-0400 Respiratory Rate 12 /[facility] [place] Encounters Encounter Date Encounter Type Care Provider Facility Start: 10-18-2023 End: 10-18-2023 ambulatory JANA AICHHOLZ Not Available Start: 10-06-2023 End: 10-06-2023 ambulatory JANA AICHHOLZ Not Available Start: 10-04-2023 End: 10-04-2023 ambulatory SHAKIRA M LOR-NOSSEK Not Available Start: 09-16-2023 End: 09-16-2023 ambulatory SHAKIRA M LOR-NOSSEK Not Available Start: 08-17-2023 End: 08-18-2023 ambulatory Duc Rascon [facility] Start: 08-03-2023 ambulatory Jana spivey CATERING SERVER-FRUIT PITTER Facility[facility] Start: 08-03-2023 End: 08-04-2023 ambulatory Mirza Amanda CATERING SERVER-FRUIT PITTER [facility] Start: 07-27-2023 End: 07-27-2023 ambulatory ESTELITA L CATHI Not Available Start: 07-13-2023 End: 07-13-2023 ambulatory Valentin Lashonda Facility:[facility] Start: 07-13-2023 End: 07-13-2023 ambulatory AMIRA Thrasher Work Phone: [facility] Work Phone: Start: 07-13-2023 End: 07-13-2023 Departed Referred AMIRA Thrasher Work Phone: [facility] Start: 07-13-2023 End: 07-13-2023 ambulatory VALENTIN LASHONDA Not Available Start: 07-06-2023 End: 07-06-2023 ambulatory SUELLEN BREWSTER Not Available Start: 06-16-2023 End: 06-16-2023 ambulatory JANA AICHHOLZ Not Available Start: 05-24-2023 Bamboo flowsheet Esteliat L Wina ns PA Work Phone: [facility] Start: 05-24-2023 Bamboo flowsheet Estelita L Wina ns PA Work Phone: [facility] Start: 05-24-2023 End: 05-24-2023 Office outpatient new 45 minutes Estelita L Cathi PA Work Phone: [facility] 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) Start: 05-24-2023 End: 05-24-2023 ambulatory ESTELITA L CATHI Not Available Start: 05-12-2023 End: 05-12-2023 ambulatory JANA AICHHOLZ Not Available Start: 04-21-2023 End: 04-22-2023 ambulatory SRINIVASA [facility] Start: 04-21-2023 End: 04-24-2023 ambulatory [facility] Start: 03-08-2023 End: 03-08-2023 [facility] visit, estab shelley ROY Work Phone: [facility] Work Phone: Start: 03-08-2023 End: 03-08-2023 [facility] visit, estab pt Srinivasa Jhaveri FRUIT PITTER Work Phone: [facility] Work Phone: Start: 02-19-2023 End: 02-20-2023 ambulatory SRINIVASA [facility] Start: 02-19-2023 End: 02-19-2023 [facility]QHC visit, estab pt Lea SIMPSON-S Work Phone: [facility] Work Phone: Start: 02-19-2023 End: 02-19-2023 ambulatory Srinivasa Jhaveri CNP Work Phone: [facility] Work Phone: Start: 02-06-2023 End: 02-06-2023 ambulatory SRINIVASA [facility] Start: 02-05-2023 End: 02-05-2023 FQHC visit, estab pt Srinivasa Ed FRUIT PITTER Work Phone: [facility] Work Phone: Start: 01-28-2023 End: 01-28-2023 Emergency department patient visit [facility] Start: 01-28-2023 End: 01-28-2023 FQHC visit, estab pt Srinivasa Ed FRUIT PITTER Work Phone: [facility] Work Phone: Start: 12-31-2022 End: 12-31-2022 FQHC visit, estab pt Srinivasa Ed FRUIT PITTER Work Phone: [facility] Work Phone: Start: 12-30-2022 End: 12-31-2022 ambulatory Mirza Amanda CATERING SERVER-[employer] P[employer]TER Facility:[facility] Start: 11-30-2022 End: 11-30-2022 Adult health examination Srinivasa Ed KRAFT Work Phone: [facility] Work Phone: Start: 11-30-2022 End: 11-30-2022 FQHC visit, estab pt Srinivasa Ed FRUIT PITTER Work Phone: [facility] Work Phone: Start: 09-09-2022 End: 09-09-2022 ambulatory NONE LISTED REQUEST Facility:[facility] Start: 08-12-2022 ambulatory Edgar Boogie acility:[facility] Start: 08-05-2022 End: 08-06-2022 ambulatory NONE LISTED REQUEST Facility:[facility] Start: 07-03-2022 End: 07-03-[address] SUMAN CUETO . Facility: Start: 06-07-2022 End: 06-08-2022 Emergency department patient visit [facility] Start: 06-07-2022 End: 06-08-2022 Emergency department patient visit [facility] Work Phone: [facility] Comment on above: Nausea vomiting and diarrhea (Primary Dx) Start: 02-19-2022 End: 02-19-2022 Subsequent hospital visit by physician [facility] Scalping Machine Operator [facility] EKG Comment on above: Palpitations Start: 01-22-2022 End: 01-22-2022 Patient encounter procedure Srinivasa Ed KRAFT Work Phone: [facility] Work Phone: Start: 01-22-2022 End: 01-22-2022 [facility] visit, [facility] Work Phone: Start: 01-22-2022 End: 01-22-2022 Patient encounter procedure Jodie Shannon PHARMD Work Phone: [facility] Work Phone: Start: 01-20-2022 End: 01-20-2022 ambulatory [facility] Facility:[facility]1 Start: 01-19-2022 End: 01-19-2022 ambulatory [facility] Facility:[facility] Start: 12-22-2021 End: 12-24-2021 Subsequent hospital visit by physician [facility] Nuclear Room [facility] Medicine Comment on above: Arrived Diarrhea, unspecifie d type Start: 12-11-2021 End: 12-11-2021 Subsequent hospital visit by physician Traci Dennison APRN - FRUIT PITTER [facility] Start: 12-11-2021 End: 12-11-2021 General Srinivasa Jhaveri FRUIT PITTER Work Phone: [facility] Work Phone: Start: 12-11-2021 End: 12-11-2021 FQHC visit, estab pt Ina Díaz LPCC-S Work Phone: [facility] Work Phone: Start: 12-11-2021 End: 12-11-2021 FQHC visit, estab pt Ina Díaz LPCC-S Work Phone: [facility] Work Phone: Start: 12-08-2021 End: 12-08-2021 Subsequent hospital visit by physician Traci Dennison APRN - FRUIT PITTER Work Phone: [facility] Start: 11-25-2021 End: 11-25-2021 FQHC visit, estab pt Ina Díaz LPCC-S Work Phone: [facility] Work Phone: Start: 11-25-2021 End: 11-25-2021 FQHC visit, estab pt Traci Dennison FRUIT PITTER Work Phone: [facility] Work Phone: Start: 11-12-2021 End: 11-12-2021 Emergency department patient visit Myrtle Bergeron DO Work Phone: [facility] Comment on above: Gastroenteritis (Reba sukhdeep Dx) Start: 09-01-2021 End: 09-01-2021 Emergency department patient visit Traci Dennison CATERING SERVER - [employer] P[employer]TER Work Phone: [facility] Comment on above: Folliculitis (Primar y Dx); Possible exposure to STD Start: 08-13-2021 End: 08-13-2021 FQ visit, estab pt Traci Dennison FRUIT PITTER Work Phone: [facility] Work Phone: Start: 08-11-2021 End: 08-11-2021 Emergency department patient visit Braydon Sierra DO Work Phone: [facility] Comment on above: Periumbilical abdomi nal pain (Primary Dx) Start: 07-17-2021 End: 07-17-2021 General Traci Dennison CNP Work Phone: [facility] Work Phone: Start: 07-17-2021 End: 07-17-2021 Abnormal finding on evaluation procedure Traci Dennison FRUIT PITTER Work Phone: [facility] Work Phone: Start: 07-17-2021 End: 07-17-2021 Adult health examination Traci Dennison CNP Work Phone: [facility] Work Phone: Start: 07-17-2021 End: 07-17-2021 FQ visit, estab pt Traci Dennison FRUIT PITTER Work Phone: [facility] Work Phone: Start: 07-16-2021 End: 07-16-2021 Telemedicine consultation with patient Traci Dennison CNP Work Phone: [facility] Work Phone: Start: 07-03-2021 End: 07-03-2021 Emergency department patient visit Darren House MD [facility] Comment on above: Right shoulder injur y, initial encounter (Primary Dx) Start: 06-06-2021 End: 06-06-2021 Emergency department patient visit Peggy Thrasher CATERING SERVER - FR[employer] P[employer]TER Work Phone: [facility] Comment on above: Pain of upper abdome n (Primary Dx) Start: 04-15-2021 End: 04-15-2021 FQHC visit, estab pt Farrah Jarrett [facility] Work Phone: [facility] Work Phone: Start: 04-15-2021 End: 04-29-2021 Telemedicine consultation with patient Traci Dennison FRUIT PITTER Work Phone: [facility] Work Phone: Start: 04-15-2021 End: 04-29-2021 General Traci Dennison FRUIT PITTER Work Phone: [facility] Work Phone: Start: 04-15-2021 End: 04-29-2021 General Traci Dennison FRUIT PITTER Work Phone: [facility] Work Phone: Start: 04-15-2021 End: 04-15-2021 FQHC visit, estab pt Traci Dennison FRUIT PITTER Work Phone: [facility] Work Phone: Start: 04-03-2021 End: 04-03-2021 FQHC visit, estab pt Hannah ROY Work Phone: [facility] Work Phone: Start: 04-03-2021 End: 04-03-2021 FQHC visit, estab pt Traci Dennison FRUIT PITTER Work Phone: [facility] Work Phone: Start: 04-03-2021 End: 04-03-2021 General Farrah Jarrett [facility] Work Phone: [facility] Work Phone: Start: 02-14-2021 End: 02-14-2021 FQ visit, estab pt Peggy Thrasher FRUIT PITTER Work Phone: [facility] Work Phone: Start: 02-07-2021 End: 02-07-2021 Emergency department patient visit Serenity Will DO Work Phone: [facility] Comment on above: Abdominal pain, epig astric (Primary Dx); Non-intractable vomiting with nausea, unspecified vomiting type; Diarrhea, unspecified type Start: 02-05-2021 End: 02-05-2021 Emergency department patient visit Мария Yee DO Work Phone: [facility] Comment on above: Abdominal pain, epig astric (Primary Dx) Start: 01-29-2021 End: 01-29-2021 Emergency department patient visit Jarrod Sofia MD Work Phone: [facility] Comment on above: Suspected COVID-19 v irus infection (Primary Dx) Start: 01-01-2021 End: 01-01-2021 Telemedicine consultation with patient Traci Dennison CNP Work Phone: [facility] Work Phone: Start: 11-16-2020 End: 11-16-2020 Emergency department patient visit Peggy Thrasher CATERING SERVER - FR[employer] PITTER Work Phone: [facility] Comment on above: Injury of right wris t, initial encounter (Primary Dx) Start: 10-08-2020 End: 10-08-2020 Emergency department patient visit Narinder Jimenez MD Work Phone: [facility] Comment on above: Infective otitis ext ivette of left ear (Primary Dx); Acute serous otitis media, recurrence not specified, unspecified laterality Start: 09-04-2020 End: 09-04-2020 Emergency department patient visit Peggy Thrasher CATERING SERVER - FR[employer] PITTER Work Phone: [facility] Comment on above: Abdominal pain, epig astric (Primary Dx) Start: 06-18-2020 End: 06-18-2020 Emergency department patient visit Katlin Reaves Work Phone: [facility] Comment on above: Chronic abdominal pa in (Primary Dx) Start: 06-03-2020 End: 06-03-2020 Established patient Farrah Jarrett Work Phone: [facility] Work Phone: Start: 06-03-2020 End: 06-03-2020 Established patient Traci Dennison Work Phone: [facility] Work Phone: Start: 06-02-2020 End: 06-02-2020 Subsequent hospital visit by physician Peggy SALDA[facility]A Laboratory Start: 06-01-2020 End: 06-01-2020 Emergency department patient visit [facility] Comment on above: Left upper quadrant abdominal pain (Primary Dx) Start: 03-17-2020 End: 03-17-2020 Emergency department patient visit Kalpesh Dillard Work Phone: [facility] Comment on above: Seizure (HCC) (Prima ry Dx); Noncompliance; Chest pain, atypical; Chest pain at rest; Marijuana use Start: 02-29-2020 End: 02-29-2020 Subsequent hospital visit by physician Angle Covid Screening Schedule [facility] Covid Screening Comment on above: Viral gastroenteriti s; Suspected COVID-19 virus infection Start: 01-26-2020 End: 01-26-2020 Established patient Traci Deninson Work Phone: [facility] Work Phone: Start: 01-24-2020 End: 01-24-2020 Patient encounter procedure Wyatt Montgomeryamy Work Phone: [facility] Work Phone: Start: 01-08-2020 End: 01-08-2020 Established patient Hannah Rivera Work Phone: [facility] Work Phone: Start: 01-08-2020 End: 01-08-2020 Established patient Peggyisis Thrasher Work Phone: [facility] Work Phone: Start: 01-03-2020 End: 01-03-2020 Patient encounter procedure Poly Oakes Work Phone: [facility] Work Phone: Start: 01-03-2020 Comprehensve oral evaluation Poly Oakes Work Phone: [facility] Work Phone: Start: 12-31-2019 End: 12-31-2019 Emergency department patient visit Regino Aguilar Work Phone: [facility] Comment on above: Cellulitis of right foot (Primary Dx) Start: 12-26-2019 End: 12-28-2019 Subsequent hospital visit by physician Shanda Dodson Dr Room 2 [facility] Laboratory Comment on above: Chest pain on breath ing Start: 12-25-2019 End: 12-25-2019 Established patient Hannah Rivera Work Phone: [facility] Work Phone: Start: 12-24-2019 End: 12-25-2019 Emergency department patient visit Jarrod Sofia Work Phone: [facility] Comment on above: Strain of lumbar reg ion, initial encounter (Primary Dx) Start: 12-14-2019 End: 12-14-2019 Emergency department patient visit Natan Lopez [facility] Comment on above: Non-surgical abdomin al pain (Primary Dx) Start: 11-29-2019 End: 11-29-2019 Emergency department patient visit Regino Aguilar Work Phone: [facility] Comment on above: Left lower quadrant abdominal pain (Primary Dx); Abdominal pain, unspecified abdominal location; Hydrosalpinx Start: 12-30-2018 End: 12-30-2018 Emergency department patient visit Regino Aguilar Work Phone: [facility] Comment on above: Viral URI with cough (Primary Dx) Procedures Date Procedure Procedure Detail Performing Clinician Start: 03-08-2023 Most recent diastolic blood pressure < 80 mm hg Srinivasa Ed FRUIT PITTER Work Phone: Start: 03-08-2023 Most recent systolic blood pressure <130 mm hg Srinivasa Jhaveri CNP Work Phone: Start: 03-08-2023 Psychotherapy w/patient 30 minutes Hannah Rivera LISWS Work Phone: Start: 02-19-2023 Current tobacco smoker Srinivasa Jhaveri CNP Work Phone: Start: 02-19-2023 Most recent diastolic blood pressure 80-89 mm hg Srinivasa Jhaveri CNP Work Phone: Start: 02-19-2023 Most recent systolic blood pressure <130 mm hg Srinivasa Jhaveri CNP Work Phone: Start: 02-19-2023 Psychotherapy w/patient 30 minutes Lea Arguelles HEEL BREASTER-S Work Phone: Start: 02-19-2023 Pt scrnd tobacco use rcvd tobacco cessation talk Srinivasa Jhaveri CNP Work Phone: Start: 02-19-2023 Urnls dip stick/tablet rgnt non-auto w/o micrscp Srinivasa Jhaveri CNP Work Phone: Start: 01-28-2023 Current tobacco smoker Srinivasa Jhaveri CNP Work Phone: Start: 01-28-2023 Ketorolac tromethamine inj Srinivasa Jhaveri CNP Work Phone: Start: 01-28-2023 Most recent diastolic blood pressure < 80 mm hg Srinivasa Jhaveri CNP Work Phone: Start: 01-28-2023 Most recent systolic blood pressure <130 mm hg Srinivasa Jhaveri CNP Work Phone: Start: 01-28-2023 Pt scrnd tobacco use rcvd tobacco cessation talk Srinivasa Jhaveri CNP Work Phone: Start: 12-31-2022 Asthma Control Test/Baseline Evaluation Srinivasa Jhaveri CNP Work Phone: Start: 12-31-2022 Most recent diastolic blood pressure < 80 mm hg Srinivasa Jhaveri CNP Work Phone: Start: 12-31-2022 Most recent systolic blood pressure <130 mm hg Srinivasa Jhaveri CNP Work Phone: Start: 12-31-2022 Pt scrnd tobacco use rcvd tobacco cessation talk Srinivasa Jhaveri CNP Work Phone: Start: 11-30-2022 Current tobacco smoker Srinivasa Jhaveri CNP Work Phone: Start: 11-30-2022 Hemoglobin glycosylated a1c Srinivasa Jhaveri CNP Work Phone: Start: 11-30-2022 Hysterectomy Srinivasa Jhaveri CNP Work Phone: Start: 11-30-2022 Most recent hemoglobin a1c level < 7.0% Srinivasa Jhaveri CNP Work Phone: Start: 11-30-2022 Pt scrnd tobacco use rcvd tobacco cessation talk Srinivasa Jhaveri CNP Work Phone: Start: 11-30-2022 Surgical procedure Srinivasa Jhaveri CNP Work Phone: Start: 06-07-2022 Comprehensive metabolic panel Serenity Will DO Work Phone: Start: 06-07-2022 Urinalysis microscopic only Serenity Will DO Work Phone: Start: 06-07-2022 Urnls dip stick/tablet rgnt auto w/o microscopy Serenity Will DO Work Phone: Start: 01-22-2022 Current tobacco smoker Srinivasa Jhaveri CNP Work Phone: Start: 01-22-2022 Most recent diastolic blood pressure 80-89 mm hg Srinivasa Jhaveri CNP Work Phone: Start: 01-22-2022 Most recent systolic blood pressure <130 mm hg Srinivasa Jhaveri CNP Work Phone: Start: 01-22-2022 Pt scrnd tobacco use rcvd tobacco cessation talk Srinivasa Jhaveri CNP Work Phone: Start: 12-22-2021 Gastric emptying imaging study Mirza Amanda APRN - [facility] Work Phone: Start: 12-11-2021 Current tobacco smoker Srinivasa Jhaveri [facility] Work Phone: Start: 12-11-2021 Most recent diastolic blood pressure < 80 mm hg Srinivasa Jhaveri [facility] Work Phone: Start: 12-11-2021 Most recent systolic blood pressure <130 mm hg Srinivasa Jhaveri [facility] Work Phone: Start: 12-11-2021 Psychotherapy w/patient 30 minutes Ina Díaz [facility] Work Phone: Start: 12-11-2021 Pt scrnd tobacco use rcvd tobacco cessation talk Srinivasa Jhaveri [facility] Work Phone: Start: 12-11-2021 Urnls dip stick/tablet rgnt non-auto w/o micrscp Srinivasa Jhaveri [facility] Work Phone: Start: 12-08-2021 Toxin/antitoxin assay tissue culture Mirza Amanda APRN [facility] Work Phone: Start: 11-25-2021 Most recent diastolic blood pressure 80-89 mm hg Traci Dennison [facility] Work Phone: Start: 11-25-2021 Most recent systolic blood pressure <130 mm hg Traci Dennison [facility] Work Phone: Start: 11-25-2021 Psychotherapy w/patient 30 minutes Ina Díaz [facility] Work Phone: Start: 11-25-2021 Urnls dip stick/tablet rgnt non-auto w/o micrscp Traci Dennison [facility] Work Phone: Start: 11-12-2021 Urnls dip stick/tablet reagent auto microscopy Myrtle Aguayo Bergeron DO Work Phone: Start: 11-12-2021 Ct abdomen & pelvis w/contrast material Myrtle Aguayo Bergeron DO Work Phone: Start: 11-12-2021 COVID-19, RAPID Myrtle Bergeron DO Work Phone: Start: 11-12-2021 Comprehensive metabolic panel Myrtle Bergeron DO Work Phone: Start: 09-01-2021 Urine test visual color cmprsn meths Narinder Jimenez MD Work Phone: Start: 09-01-2021 Urnls dip stick/tablet reagent auto microscopy Narinder Jimenez MD Work Phone: Start: 08-11-2021 Urnls dip stick/tablet rgnt auto w/o microscopy Braydon Sierra DO Work Phone: Start: 08-11-2021 COVID-19, RAPID Braydon Tejadastormy DO Work Phone: Start: 08-11-2021 End: 08-11-2021 Iaadiadoo influenza Braydon Aguayo Rigo DO Work Phone: Start: 08-11-2021 Comprehensive metabolic panel Braydon Sierra DO Work Phone: Start: 07-17-2021 Hyperlipidemia screening Visit For: Screening Exam Lipoid Disorders Traci Dennison [facility] Work Phone: Start: 07-17-2021 Iaadiadoo streptococcus group a Traci Dennison [facility] Work Phone: Start: 07-17-2021 Most recent diastolic blood pressure < 80 mm hg Traci Dennison [facility] Work Phone: Start: 07-17-2021 Most recent systolic blood pressure <130 mm hg Traci Dennison [facility] Work Phone: Start: 07-03-2021 End: 07-03-2021 Radex [...] pressure < 80 mm hg Traci Dennison [employer] Work Phone: Start: 04-15-2021 Most recent systolic blood pressure <130 mm hg Traci Dennison [employer] Work Phone: Start: 04-15-2021 Psychotherapy w/patient 30 minutes Farrah Jarrett [employer] Work Phone: Start: 04-10-2021 Gastroenterology Traci Dennison [employer] Work Phone: Start: 04-09-2021 Psychotherapy w/patient 30 minutes Farrah Jarrett [facility] Work Phone: Start: 04-03-2021 Most recent diastolic blood pressure < 80 mm hg Traci Dennison [employer] Work Phone: Start: 04-03-2021 Most recent systolic blood pressure <130 mm hg Traci Dennison [employer] Work Phone: Start: 04-03-2021 Psychotherapy w/patient 30 minutes Hannah ROY Work Phone: Start: 04-03-2021 Urnls dip stick/tablet rgnt non-auto w/o micrscp Traci Dennison [employer] Work Phone: Start: 04-03-2021 Venereal disease screening Visit For: Screening Exam Std Traci Dennison [employer] Work Phone: Start: 02-14-2021 Antibody hiv-1&hiv-2 single result Peggy Thrasher [employer] Work Phone: Start: 02-14-2021 Current tobacco smoker Peggy Thrasher [employer] Work Phone: Start: 02-14-2021 Most recent diastolic blood pressure < 80 mm hg Peggy Thrasher CNP Work Phone: Start: 02-14-2021 Most recent systolic blood pressure <130 mm hg Peggy Thrasher CNP Work Phone: Start: 02-14-2021 Pt scrnd tobacco use rcvd tobacco cessation talk Peggy Thrasher CNP Work Phone: Start: 02-14-2021 Pt-focused hlth risk assmt score doc stnd instrm Peggy Thrasher CNP Work Phone: Start: 02-07-2021 Basic metabolic panel calcium total Serenity Miriam Suman GARCIA Work Phone: Start: 02-07-2021 Hepatic function panel Serenity Pineda Will Work Phone: Start: 02-07-2021 Urinalysis microscopic only Serenity R Suman GARCIA Work Phone: Start: 02-07-2021 Urnls dip stick/tablet rgnt auto w/o microscopy Serenity R Suman GARCIA Work Phone: Start: 02-05-2021 Ecg routine ecg w/least 12 lds w/i&r Мария Yee DO Work Phone: Start: 02-05-2021 Assay of lipase Мария Yee DO Work Phone: Start: 02-05-2021 Lactate [Moles/volume] in Serum or Plasma Мария Yee DO Work Phone: Start: 11-16-2020 End: 11-16-2020 Radex forearm 2 views Kalpesh Burris Work Phone: Start: 09-04-2020 Radiologic exam abdomen 1 view Kirk Barlow [employer] Work Phone: Start: 09-04-2020 Us abdominal real time w/image limited Kirk Barlow PA-[facility] Work Phone: Start: 09-04-2020 Assay of amylase Kirk Barlow PA-C Work Phone: Start: 09-04-2020 Urinalysis microscopic only Kirk Dela Cruz tony PA-C Work Phone: Start: 09-04-2020 Urnls dip stick/tablet rgnt auto w/o microscopy Kirk Burris Yen PA-C Work Phone: Start: 06-03-2020 Psychotherapy w/patient [...] Start: 03-17-2020 Assay of troponin quantitative Kalpesh Dillard Work Phone: Start: 03-17-2020 Ecg routine ecg [...] Radex foot complete minimum 3 views Regino Zachery Aguilar Work Phone: Start: 12-26-2019 Radiologic exam chest 2 views Peggy Sheikh Anna Marie Work Phone: Start: 12-26-2019 Assay of thyroid stimulating hormone tsh Peggy Thrasher Work Phone: Start: 12-26-2019 Lipid panel Peggy Sheikh Anna Marie Work Phone: Start: 12-25-2019 ASTHMA Peggy Anna Marie Start: 12-25-2019 BIPOLAR DISORDER NOS Peggy Anna Marie Start: 12-25-2019 DEPRESSION Peggy Anna Marie Start: 12-25-2019 EPILEPSY Peggy Anna Marie Start: 12-25-2019 Hernia repair Peggy Thrasher Start: 12-25-2019 KERATITIS FOLLICULARIS (DARIER'S DISEASE) Peggy Anna Marie Start: 12-25-2019 Lig/trnsxj flp tube abdl/vag appr uni/bi Peggy Anna Marie Start: 12-25-2019 Ligation of fallopian tube Peggy Thrasher Start: 12-25-2019 OVARIAN CYST Peggy Thrasher Start: 12-25-2019 POST-TRAUMATIC STRESS DISORDER Peggy Thrasher Start: 12-25-2019 PSYCHIATRIC DISORDERS Peggy Anna Marie Start: 12-25-2019 Psychotherapy w/patient 30 minutes Hannah Rivera Work Phone: Start: 12-25-2019 SCHIZOPHRENIA Peggy Anna Marie Start: 12-25-2019 Surgical procedure Peggy Anna Marie Start: 12-25-2019 Tonsillectomy Peggy Anna Marie Start: 12-25-2019 Tonsillectomy & adenoidectomy Peggy Anna Marie Start: 12-25-2019 Tonsillectomy and adenoidectomy Peggy Anna Marie Start: 12-25-2019 Tonsillectomy primary/secondary Peggy Anna Marie Start: 12-25-2019 Unlisted procedure abdomen peritoneum & omentum Peggy Anna Marie Start: 12-24-2019 Radex spine lumbosacral 2/3 views Jarrodcheryl Sofia Work Phone: Start: 12-24-2019 Radex spine thoracic 2 views Jarrod E Eiyasmin Work Phone: Start: 12-24-2019 Radiologic examination pelvis 1/2 views Jarrodcheryl Sofia Work Phone: Start: 12-14-2019 Us transvaginal Natan cooper Start: 12-14-2019 Ct abdomen & pelvis w/contrast material Natan Lopez Start: 12-14-2019 Basic metabolic panel calcium total Natan Lopez Start: 12-14-2019 Blood count complete auto&auto difrntl wbc Natan Rodríguez Jessica Start: 12-14-2019 Urnls dip stick/tablet reagent auto microscopy Natan Rodríguez Jessica Start: 11-29-2019 Us transvaginal Jarrod Jennifer Sofia Work Phone: Start: 11-29-2019 Ct abdomen & pelvis w/contrast material Regino scrible Work Phone: Start: 11-29-2019 Urnls dip stick/tablet rgnt auto w/o microscopy Regino scrible Work Phone: Start: 11-29-2019 Assay of lipase ReginoFactery Work Phone: Start: 11-29-2019 Blood count complete auto&auto difrntl wbc Regino A Jeff Work Phone: Start: 11-29-2019 Gonadotropin chorionic qualitative ReginoFactery Work Phone: Start: 12-30-2018 Radiologic exam chest 2 views ReginoFactery Work Phone: Plan of Treatment Date Care Activity Detail Author Start: 02-01-2024 ambulatory Ambulatory Facility:[facility] Start: 12-20-2023 DTaP/Tdap/Td vaccine (6 - Td or Tdap) DTaP/Tdap/Td vaccine (6 - Td or Tdap) [facility] Start: 09-16-2023 End: 09-16-2023 Patient encounter procedure 09/16/2023 10:00 AM EDT Office Visit [facility] [address] [facility] [address] [place] [address] Shakira Robertson, CATERING SERVER-CASTING MACHINE OPERATOR HELPER [address] [facility] [address] [place] [address] [facility] Start: 07-27-2023 End: 07-27-2023 Patient encounter procedure 07/27/2023 9:00 AM EDT Office Visit [facility] [address] [place] [address] Estelita Winkler PA [address] [place] [address] [facility] Start: 06-28-2023 End: 06-28-2023 Patient encounter procedure 06/28/2023 9:50 AM EDT Office Visit [facility] [address] [place] [id number] Estelita Winkler PA [address] [place] [address] [facility] Start: 06-16-2023 End: 06-16-2023 Patient encounter procedure 06/16/2023 9:20 AM EST Office Visit [facility] [address] [place] [address] Jana Kramer, DANDY [address] [place] [address] [facility] Start: 05-24-2023 End: 05-24-2023 Patient encounter procedure 05/24/2023 11:20 AM EST Office Visit [facility] [address] [place] [id number] Estelita Winkler PA [address] [place] [address] Arrived [facility] Comment on above: Arrived Start: 04-21-2023 End: 04-21-2023 Patient encounter procedure 04/21/2023 Office Visit [facility] Start: 04-13-2023 FQHC visit, belle pt Medical Established Patient [facility] Work Phone: Start: 03-21-2023 BD Affirm [facility] Start: 03-08-2023 End: 03-08-2023 Patient education based on identified need BHP offered active and supportive listening. ~BHP discussed coping skills and supports to implement in daily routine. BHP discussed community resources that may be able to help. ~BHP discussed online and community resources to contact for psychaitry [facility] Start: 03-08-2023 FQHC visit, estab pt Medical Established Patient [facility] Work Phone: Start: 03-08-2023 End: 03-08-2023 Patient education based on identified need [facility] Start: 03-07-2023 [facility] Start: 02-19-2023 End: 02-19-2023 Patient education based on identified need [facility] Start: 02-05-2023 FQHC visit, estab pt Medical Established Patient [facility] Work Phone: Start: 02-05-2023 End: 02-05-2023 Patient education based on identified need [facility] Start: 01-28-2023 FQHC visit, estab pt Medical Established Patient [facility] Work Phone: Start: 01-28-2023 End: 01-28-2023 Patient education based on identified need [facility] Start: 12-31-2022 FQHC visit, estab pt Medical Established Patient [facility] Work Phone: Start: 12-31-2022 End: 12-31-2022 Patient education based on identified need [facility] Start: 11-30-2022 End: 11-30-2022 Patient education based on identified need [facility] Start: 02-25-2022 End: 02-25-2022 Patient encounter procedure 02/25/2022 Office Visit [facility]rology [facility] Start: 02-21-2022 [facility] Start: 01-22-2022 Urology [facility] Work Phone: Comment on above: Note: Please make a referral to: Start: 01-22-2022 End: 01-22-2022 Patient education based on identified need [facility] Start: 01-15-2022 FQHC visit, estab pt Medical Established Patient [facility] Work Phone: Start: 01-10-2022 [facility] Start: 12-22-2021 End: 12-22-2021 Patient encounter procedure 12/22/2021 Appointment Radiology [facility] Start: 12-22-2021 End: 12-22-2021 Patient encounter procedure 12/22/2021 Appointment Radiology [facility] Start: 12-22-2021 End: 12-22-2021 Patient encounter procedure 12/22/2021 Appointment Radiology [facility] Start: 12-12-2021 Urinalysis Dipstick,In House [facility] Start: 12-11-2021 Influenza vaccination [facility] Start: 12-11-2021 End: 12-11-2021 Patient education based on identified need [facility] Start: 11-25-2021 End: 11-25-2021 Patient education based on identified need [facility] Start: 11-10-2021 Influenza vaccination Flu vaccine (#1) [facility] Start: 09-24-2021 Dental Comp Exam [facility] Work Phone: Start: 09-12-2021 US Abdominal Complete ([id number]) [facility] Start: 08-27-2021 FQHC visit, estab pt Medical Established Patient [facility] Work Phone: Start: 08-13-2021 End: 08-13-2021 Patient education based on identified need [facility] Start: 07-24-2021 CBC W Auto Differential panel - Blood [facility] Start: 07-17-2021 End: 07-17-2021 Patient education based on identified need [facility] Start: 05-27-2021 Dental Comp Exam [facility] Work Phone: Start: 05-06-2021 SARS-CoV-2, EVELIA [facility] Start: 05-03-2021 [facility] Start: 05-02-2021 FQHC visit, estab pt Medical Established Patient [facility] Work Phone: Start: 01-18-[address] Testing [facility] Work Phone: Start: 04-15-2021 FQHC visit, estab pt Medical Established Patient [facility] Work Phone: Start: 04-15-2021 End: 04-15-2021 Patient education based on identified need [facility] Start: 04-10-2021 FQHC visit, estab pt Medical Established Patient [facility] Work Phone: Start: 04-09-2021 End: 04-09-2021 [...] have stopped; reports voices were not commanfing [facility] Start: 04-03-2021 Psychiatry [facility] Work Phone: Comment on above: Note: Please make a referral to: Start: 04-03-2021 End: 04-03-2021 Patient education based on identified need [facility] Start: 03-16-2021 Stool PCR Panel (STLPCR) [facility] Start: 02-14-2021 End: 02-14-2021 Patient education based on identified need [facility] Start: 12-11-2020 Influenza vaccination Flu vaccine (#1) [facility] Start: 06-03-2020 End: 06-03-2020 Patient education based on identified need Explored current symptoms and stressors. Educaated patient re importance of counseling and provided brief review of EMDR treatment. ~Encouraged patient to engage in ongoing counseling. ~ [facility] Start: 06-03-2020 End: 06-03-2020 Patient education based on identified need [facility] Start: 06-03-2020 Gastroenterology [facility] Work Phone: Comment on above: Note: Please make a referral to: Start: 06-01-2020 End: 06-01-2021 C DIFF TOXIN/ANTIGEN [facility] Work Phone: Comment on above: 48 HRS for 48 Hours starting 05/14 until 06/01/2020 Expected: 06/01/2020 , Expires: 06/01/2021 Start: 06-01-2020 End: 06-29-2020 Giardia / Cryptosporidum antigens [facility] Work Phone: Comment on above: One Time for 1 Occurrences starting 05/14 until 06/01/2020 Expected: 06/01/2020 , Expires: 06/29/2020 Start: 2020 Screening for malignant neoplasm of cervix [facility] Start: 02-07-2020 Prophy [facility] Work Phone: Start: 01-24-2020 [facility] Work Phone: Start: 01-08-2020 End: 01-08-2020 Patient education based on identified need [facility] Start: 01-08-2020 End: 01-08-2020 Provider instructions for treatment Intervention and counseling on cessation of tobacco use, 3-10 minutes [facility] Start: 01-08-2020 Medical Established Patient [facility] Work Phone: Start: 01-03-2020 Dental Comp Exam [facility] Work Phone: Start: 01-01-2020 Lipid 1996 panel [facility] Work Phone: Start: 12-25-2019 End: 12-25-2019 Patient education based on identified need [facility] Start: 12-12-2019 Influenza vaccination Flu vaccine (#1) [place], [place] Start: 12-11-2018 Influenza vaccination Flu vaccine (#1) [place] Start: 2011 Cervical cancer screen Cervical cancer screen [place], [place] Start: 2011 Screening for malignant neoplasm of cervix [facility] Start: 2009 DTaP/Tdap/Td vaccine (1 - Tdap) DTaP/Tdap/Td vaccine (1 - Tdap) [facility] Start: 2008 Hepatitis C screening Hepatitis C screen [facility] Start: 2003 Varicella Vaccine (1 of 2 - 13+ 2-dose series) Varicella Vaccine (1 of 2 - 13+ 2-dose series) [place] Start: 2002 COVID-19 Vaccine (1) COVID-19 Vaccine (1) [facility] [employer] Phone: Start: 2002 Depression Screen Depression Screen [facility] Start: 1996 Pneumococcal 0-64 years Vaccine (1 - PCV) Pneumococcal 0-64 years Vaccine (1 - PCV) [facility] Start: 1996 Pneumococcal 0-64 years Vaccine (1 of 1 - PPSV23) Pneumococcal 0-64 years Vaccine (1 of 1 - PPSV23) [place] Start: 1996 Pneumococcal 0-64 years Vaccine (1 of 2 - PPSV23) Pneumococcal 0-64 years Vaccine (1 of 2 - PPSV23) [facility] Start: 1995 COVID-19 Vaccine (1) COVID-19 Vaccine (1) [facility] Start: 1991 Varicella vaccine (1 of 2 - 2-dose childhood series) Varicella vaccine (1 of 2 - 2-dose childhood series) [facility] Start: 1990 COVID-19 Vaccine (#1) COVID-19 Vaccine (#1) [facility] [employer] [facility] [employer] Start: 1990 Hepatitis C screening Hepatitis C screen [facility] End: 12-08-2021 C. difficile toxin Molecular [facility] [employer] Phone: Comment on above: Once for 1 Occurrences starting 12/09/19 until 12/08/2021 End: 09-01-2021 C.trachomatis N.gonorrhoeae DNA, Urine [email or web address] Phone: Comment on above: One Time for 1 Occurrences starting 08/11 until 09/01/2021 End: 12-08-2021 Calprotectin Stool [facility] [employer] [email or web address] Phone: Comment on above: Once for 1 Occurrences starting 12/09/19 until 12/08/2021 End: 03-17-2020 COVID-19 COVID-19 Lab Routine One Time for 1 Occurrences starting 03/17/2020 until 03/17/2020 [facility] [employer] Comment on above: One Time for 1 Occurrences starting 09/2019 until 03/17/2020 COVID-19 [facility] [employer] End: 01-29-2021 COVID-19 COVID-19 Lab Routine One Time for 1 Occurrences starting 01/29/2021 until 01/29/2021 [employer] Phone: Comment on above: One Time for 1 Occurrences starting 01/11 until 01/29/2021 End: 02-29-2020 COVID-19 Ambulatory COVID-19 Ambulatory Lab Routine Viral gastroenteritis Suspected COVID-19 virus infection 1 Occurrences starting 02/29/2020 until 02/29/2020 [place] Comment on above: 1 Occurrences starting 02/29/2020 until 02/29/2020 COVID-19 Ambulatory COVID-19 Amb ulatory Lab Routine Viral gastroenteritis Suspected COVID-19 virus infection 02/29/2020 2:02 PM EST [facility] [place] [facility]OMEN PELVIS W IV CONTRAST CT ABDOMEN PELVIS W IV CONTRAST Imaging STAT 12/14/2019 11:17 AM EDT [facility] [employer] End: 06-01-2020 Culture, Urine Culture, Urine Microbiology STAT One Time for 1 Occurrences starting 06/01/2020 until 06/01/2020 [employer] Phone: Comment on above: One Time for 1 Occurrences starting 05/14 until 06/01/2020 Culture, Urine Culture, Urine Microbiology STAT 06/01/2020 1:19 PM [employer] Phone: End: 09-01-2021 Culture, Urine [employer] [employer] Phone: Comment on above: One Time for 1 Occurrences starting 08/11 until 09/01/2021 EKG 12 Lead [employer] [place] EKG 12 Lead EKG 12 Lead ECG STAT 06/06/2021 3:29 PM [employer] Phone: End: 12-08-2021 Fecal lactoferrin [employer] Phone: Comment on above: Once for 1 Occurrences starting 12/09/19 until 12/08/2021 End: 12-08-2021 Gastrointestinal Panel, Molecular [employer] Phone: Comment on above: Once for 1 Occurrences starting 12/09/19 until 12/08/2021 End: 06-02-2020 Giardia / Cryptosporidum antigens Giardia / Cryptosporidum antigens Lab Routine Once for 1 Occurrences starting 06/02/2020 until 06/02/2020 [employer] Phone: Comment on above: Once for 1 Occurrences starting 06/02/19 until 06/02/2020 Giardia / Cryptospor idum antigens Giardia / Cryptosporidum antigens Lab Routine 06/02/2020 4:24 PM EST [employer] Phone: End: 12-08-2021 H. pylori antigen [employer] Phone: Comment on above: Once for 1 Occurrences starting 12/09/19 until 12/08/2021 End: 12-08-2021 O&P PANEL (TRAVEL ASSOCIATED) #1 [employer] Phone: Comment on above: Once for 1 Occurrences starting 12/09/19 until 12/08/2021 Immunizations Immunization Date Immunization Notes Care Provider Fa kenan 03-08-2023 influenza, injectabl e, quadrivalent, preservative free; Translations: [Fluarix] Srinivasa Jhaveri [employer] Work Phone: [facility] Comment on above: Note: Patient tolera lenora well. No signs or symptoms of adverse reactions. Patient waited a minimum of 15 minutes. 03-08-2023 Imm.Admin. over 18 y rs Any Route FIRST Injection Srinivasa Jhaveri [employer] Work Phone: [facility] 01-22-2022 influenza, seasonal, injectable; Translations: [Flluarix] Traci Dennison [employer] Work Phone: [facility] Comment on above: Note: Patient tolera lenora well. No signs or symptoms of adverse reactions. Patient waited a minimum of 15 minutes. 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 Work Phone: [facility] 07-28-1998 hepatitis B vaccine, pediatric or pediatric/adolescent dosage Traci Juma FRUIT PITTER Work Phone: [facility] 05-20-1998 hepatitis B vaccine, pediatric or pediatric/adolescent dosage Traci Juam FRUIT PITTER Work Phone: [facility] 01-13-1998 hepatitis B vaccine, pediatric or pediatric/adolescent dosage Traci Dennison FRUIT PITTER Work Phone: [facility] 01-13-1998 measles, mumps and rubella virus vaccine Traci Dennison FRUIT PITTER Work Phone: [facility] 02-18-1995 measles, mumps and rubella virus vaccine Traci Dennison FRUIT PITTER Work Phone: [facility] 1990 diphtheria, tetanus toxoids and pertussis vaccine Traci Dennison FRUIT PITTER Work Phone: [facility] Payers Date Payer Category Payer Self-pay 2022 Unknown 2019 Medicaid [employer] [place] [id number] 2019-Present [address] [place] [address] [id number] 2018 Unknown [facility] xxxxxxxxxxxxx 2018-Present [phone] [address] [place] [address] xxxxxxxxxxxxx [id number] 1990 Unknown [id number] 2.16.840.1.065963.3.579.2.593 1990 Unknown [id number] 2.16.840.1.088938.3.579.2.593 1990 Unknown [id number] 2.16.840.1.971432.3.579.2.593 1990 Unknown [id number] 2.16.840.1.200131.3.579.2.593 1990 Unknown [id number] 2.16.840.1.715470.3.579.2.593 1990 Unknown [id number] 2.16.840.1.972424.3.579.2.175 1990 Unknown [id number] 2.16.840.1.884102.3.579.2.175 1990 Unknown [id number] 2.16.840.1.909855.3.579.2.173 1990 Unknown [id number] 2.16.840.1.856801.3.579.2.173 1990 Unknown [id number] 2.16.840.1.041650.3.579.2.173 1990 Unknown [id number] 2.16.840.1.512739.3.579.2.173 1990 Unknown [id number] 2.16.840.1.262350.3.579.2.173 1990 Unknown [id number] 2.16.840.1.121006.3.579.2.196 1990 Unknown [id number] 2.16.840.1.399908.3.579.2.196 1990 Unknown [id number] 2.16.840.1.409342.3.579.2.196 1990 Unknown [id number] 2.16.840.1.965603.3.579.2.196 1990 Unknown [id number] 2.16.840.1.743900.3.579.2.196 1990 Unknown [id number] 2.16.840.1.737240.3.579.2.125 9 1990 Unknown [id number] 2.16.840.1.117831.3.579.2.125 9 1990 Unknown [id number] 2.16.840.1.885568.3.579.2.125 9 1990 Unknown [id number] 2.16.840.1.283167.3.579.2.125 9 1990 Unknown [id number] 2.16.840.1.013790.3.579.2.125 9 1990 Unknown [id number] 2.16.840.1.087832.3.579.2.125 9 1990 Unknown [id number] 2.16.840.1.894522.3.579.2.125 9 1990 Unknown [id number] 2.16.840.1.016624.3.579.2.125 9 1990 Unknown [id number] 2.16.840.1.122920.3.579.2.125 9 1990 Unknown [id number] 2.16.840.1.841314.3.579.2.125 9 1959 Unknown [id number] 1.2.840.598893.1.13.239.2.7.3 .605348.315 Unknown [id number] 2.16.840.1.328406.3.579.2.531 Unknown [id number] 2.16.840.1.102146.3.579.2.531 Social History Date Type Detail Facility Start: 11-29-2019 End: 04-19-2023 Tobacco smoking status NHIS Current every day smoker [facility] [employer] History of tobacco use Cigarette Smoker [employer] [facility] Start: 11-29-2019 End: 05-12-2023 Cigarettes smoked current (pack per day) - Reported [employer] [facility] Start: 11-29-2019 End: 04-19-2023 Tobacco use and exposure Never used [facility] [facility] Start: 11-29-2019 End: 06-07-2022 Alcohol intake [facility]: [facility] 1990 [facility] Start: 06-23-2021 End: 06-07-2022 Exposure to SARS-CoV-2 (event) Not sure [facility] Assertion Social drinker (finding) [facility] Assertion [facility] Gender identity finding (finding) [facility] Exposure to poll ution (event) [facility] Finding of sexua l orientation (finding) [facility] Tobacco user (finding) [facility] Work Phone: Tobacco smoking status Unknown if ever smoked [facility] Work Phone: Assertion Family problems (finding) [facility] Problem situatio n relating to social and personal history (finding) [facility] Emotional stress (finding) [facility] Assertion Stress (finding) [facility] Lives with terence nion (finding) [facility] Start: 12-30-2018 End: 05-12-2023 Alcohol intake No [facility] Assertion Social and perso nal history finding (finding) [facility] Start: 1990 Sex Assigned At Female [facility] [employer] Work Phone: Exposure to SARS-CoV-2 (event) Yes [facility] Assertion Smoker (finding) [facility] Assertion Light cigarette smoker (1-9 cigs/day) (finding) [facility] Work Phone: Assertion Employment findi ng (finding) [facility] Assertion Finding of alcoh ol intake (finding) [facility] Work Phone: Assertion Moderate cigaret te smoker (10-19 cigs/day) (finding) [facility] Assertion Stopped drinking alcohol (finding) [facility] Work Phone: Assertion Full-time employ ment (finding) [facility] Assertion Sexually active (finding) [facility] Assertion Single person (finding) [facility] Start: 11-12-2021 End: 03-15-2022 History SDOH Alcohol Frequency [employer] Work Phone: Start: 11-12-2021 End: 03-15-2022 History SDOH Alcohol Std Drinks 1 [employer] Work Phone: Assertion Currently not se xually active (finding) [facility] Assertion Family disruptio n (finding) [facility] Lives with roomm ate (finding) [facility] Assertion Unemployed (finding) [facility] Lives with famil y (finding) [facility] Assertion History of disor russell (situation) [facility] Start: 05-12-2023 End: 05-24-2023 Alcohol intake Current drinker of alcohol (finding) [facility] Start: 04-19-2023 Alcohol Comment alcohol:seldum . Caffine: coffee 1 cup daily [facility] NEGATED: Highlighted row Assertion [facility] NEGATED: Highlighted row Assertion Current drinker of alcohol (finding) [facility] NEGATED: Highlighted row Assertion Finding relating to drug misuse behavior (finding) [facility] NEGATED: Highlighted row Assertion Exposure to pollution (event) [facility] Work Phone: NEGATED: Highlighted row Assertion Tobacco user (finding) [facility] Work Phone: NEGATED: Highlighted row Assertion Sexually active (finding) [facility] Mental Status Date Assessment Result Facility Cognitive function Cognitive fun ctioning was normal Cognitive function finding (finding) [facility] Work Phone: Clinical Notes 01-08-2020 to 08-17-2023 GUILLAUME Vance - 05/24/2023 11:20 AM EST Note Date & Type Note Facility 08-17-2023 Note Chief Complaint Patient presents for evaluation of an umbilical bulge. History of Present Illness 33 year old female, patient of Jana Kramer CNP Patient presents with bulge at the umbilicus and to the right. This has been ongoing for one year. Patient c/o constant pain, described as stabbing. Notes an increase in size. Notes upper abdominal bloating. Specific triggers include: none. Pertinent findings include nausea, occasional vomiting, and diarrhea. Bulge is reducible. A CT scan abdomen/pelvis [facility] from [facility]. She states that she had a previous umbilical hernia repair, unknown year. Review of Systems Constitutional: No fevers, chills, sweats, weight loss or weight gain Respiratory: +Asthma Cardiovascular: +Hypotension, Irregular heartbeat Gastrointestinal: +See HPI Liver: No jaundice, hepatitis Genitourinary: No hematuria, no kidney problems Hematologic: Never been transfused, no bleeding disorders Neuro: +Epilepsy As reviewed in the HPI. All other systems reviewed are negative or normal. Physical Exam Vitals & Measurements HR: 72 (Peripheral) BP: 116/72 HT: 147 cm WT: 77.56 kg (Estimated) WT: 77.56 kg (Dosing) BMI: 35.89 Gen: Awake, alert Lungs: non-labored respiration Abdomen: Soft, non-tender, non-distended, no masses Reducible but somewhat tender hernia to the right of the umbilicus Assessment/Plan 1. Umbilical hernia Images from outside hospital reviewed with the patient Palpable, reducible but tender hernia to the right of umbilicus coinciding with CT findings We discussed options Recommended repair with open approach if she opted to proceed Risk and benefits were reviewed with the patient, she understands but will think it over and let us know what she decides. Time Spent with the Patient I have personally spent 15 minutes on this date, directly related to today's patient visit, including pre and post visit work, for this date of service. Time listed does not include time spent on separately billable services. Problem List/Past Medical History Ongoing Asthma Bipolar disease, chronic Chronic depression Chronic hypotension Diverticulosis EP (epilepsy) Gastritis GERD (gastroesophageal reflux disease) Hemorrhoid Irregular heartbeat Post traumatic stress disorder (PTSD) Schizophrenia Procedure/Surgical History Umbilical hernia repair (unknown year) Tonsillectomy & adenoidectomy Tubal ligation Esophagogastroduodenoscopy (07/23/2011) Colonoscopy (07/23/2011) EGD & colonoscopy (03/19/2021) Laparoscopic Cholecystectomy (04/07/2022) Partial vaginal hysterectomy (2022) Medications amitriptyline 50 mg oral tablet, 50 mg= 1 tabs, Oral, HS (at bedtime), 1 refills Bentyl 10 mg oral capsule, 20 mg= 2 caps, Oral, QID, PRN, 1 refills busPIRone 10 mg oral tablet butalbital/acetaminophen/caffeine 50 mg-325 mg-40 mg oral tablet cholestyramine 4 g/9 g oral powder for reconstitution, 1 packets, Oral, BID, 2 refills fluticasone 50 mcg/inh nasal spray Hydrocortisone 2.5% cream with rectal applicator, 1 application, Rectal, HS (at bedtime), 2 refills loratadine 10 mg oral tablet neomycin/polymyxin B/dexamethasone 3.5 mg-10,000 units-1 mg/mL ophthalmic suspension pantoprazole 40 mg oral delayed release tablet, 40 mg= 1 tabs, Oral, Daily, 11 refills Vitamin D3 1000 intl units oral tablet Vraylar 4.5 mg oral capsule Zofran 4 mg oral tablet, 4 mg= 1 tabs, Oral, q8hr, PRN, 1 refills Allergies Latex (Rash) morphine (Abdominal pain) Eggs (Gastrointestinal upset) Fish (Gastrointestinal irritation, throat tingling, Gastrointestinal upset) Social History Alcohol Current, 1-2 times per year Substance Abuse Current, Marijuana, 3-5 times per week Tobacco 5-9 cigarettes (between 1/4 to 1/2 pack)/day in last 30 days Use:. Cigarettes, 6 per day. Cigarettes Family History Cervical cancer: Mother. Colon cancer: Grandfather (M) and Grandmother (M). Dementia: Mother. Heart disease: Mother. Lung disease: Mother. Prostate cancer: Grandfather (M). Suicide: Father. Health Status Family Member(s) Family Member(s) Relationship: Father, Age: Unknown, Cause: Suicide Health Maintenance EGD & colonoscopy 03/19/2021 Electronically signed by Duc Rascon MD 08/18/23 08:49 EDT Electronically signed by Kayleigh Atwood 08/09/2023 15:49 EDT Electronically signed by Kate Burris PA-C 08/18/2023 09:10 EDT [facility] 08-04-2023 Note Patient Education Ma terials Name: Abrahan Woods Current Date: 08/04/2023 11:35:44 [facility] 1990 The following sheet(s) are the Patient Education Leaflets for Abrahan Woods ED/Trauma What Is a Hernia? A hernia is when an organ or tissue pushes through a weak area in the belly (abdominal) wall. This weak area may be there at . Or it may be caused by abdominal strain over time. If not treated, a hernia can get worse with time and physical stress. When a bulge forms When there is a weak area in the abdominal wall, an organ or tissue can push outward. This often causes a bulge that you can see under your skin. The bulge may get bigger when you stand up. It may go away when you lie down. You may also feel some pressure or mild pain when lifting, coughing, urinating, or doing other activities. Types of hernias The type of hernia you have depends on where it's at. Most hernias form in the groin at or near the internal ring. This is the entrance to a canal between the abdomen and groin. Hernias can also occur in the abdomen, thigh, or genitals. ?An incisional hernia occurs at the site of a previous surgical cut (incision). ?An umbilical hernia occurs at the bellybutton (navel). ?An indirect inguinal hernia occurs in the groin at the internal ring. ?A direct inguinal hernia occurs in the groin near the internal ring. ?A femoral hernia occurs just below the groin. ?An epigastric hernia occurs in the upper abdomen at the midline. Other types of hernias can occur. But they are rare. Diagnosis In most cases, your healthcare provider can diagnose a hernia by doing a physical exam. In some cases, it might not be clear why you have swelling in the belly wall. Then your provider may order an imaging test such as an ultrasound. This can help with the diagnosis. Surgery A hernia will not heal on its own. Surgery is needed to fix the weak spot in the belly wall. If not treated, a hernia can get larger. It can also cause serious health problems. Some hernias can be watched. They can then be fixed if they grow bigger or start to cause symptoms. The good news is that hernia surgery can be done quickly and safely. Most hernias are fixed with laparoscopic surgery. This type of surgery is done through several very small cuts. Other hernias may need open surgery. A larger cut is made in the belly. In?some cases, you can go home the same day as your surgery. When to call your provider Call or see your healthcare provider right away if the swelling around your?hernia becomes?larger,?firmer, or more painful. These may be?signs that your intestines are?stuck in the belly wall. This is an emergency. The hernia must be fixed right away to prevent serious problems. ? [id number] [employer]. [address] [place] [address], [place] [address]. All rights reserved. This information is not intended as a substitute for professional medical care. Always follow your healthcare professional's instructions. [facility] 05-24-2023 History of Present illness Narrative Images from the original note were not included. 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 General Exam: alert , oriented to person, place, and time , normal affect, well appearing, accompanied by boyfriend A focused exam completed based on patient reported problems, see below: 1. Darier's disease (4) Chest - Medial (Center), Left Breast, Right Breast, Torso - Posterior (Back) Erythematous to yellowish scaly crusted patches. 4% BSA today (see photos) Reviewed past pathology report from 2016 and discussed diagnosis with patient. As patient has never been prescribed anything for diagnosis, Tretinoin cream prescribed today for patient to use qPM. TAC cream also prescribed for patient to use bid when flared. Patient was instructed to apply topical steroid twice daily to raised, rough, and itchy areas only. Instructed to discontinue when areas are smooth and asymptomatic. Will reevaluate in 2 months Related Medications tretinoin (Retin-A) 0.05 % cream Apply to affected areas on the body qPM triamcinolone (Kenalog) 0.1 % cream Apply topically 2 (two) times a day as needed for rash Apply to affected areas on the body when itchy. Avoid the face, armpits, and groin Next Visit: 2 months documented in this encounter [facility] 03-08-2023 Evaluation note Includes: Assessments for all patient encounters Findings Anxiety disorder NOS Established Melanie ent with Hannah Short LISWS 03/08/2023 Last Documented On 3 3:55PM ; [facility] Bipolar schizoaffective disorder Esta blished Patient with Hannah Short LISWS 03/08/2023 Last Documented On 3 3:55PM ; [facility] Nicotine dependence continuous Establ ished Patient with Hannah Short LISWS 03/08/2023 Last Documented On 3 3:55PM ; [facility] [Body mass index [BMI] 33.0- 33.9, adult] assessment of body mass index Medical Established Patient with Srinivasa Ed FRUIT PITTER 03/08/2023 Last Documented On 3 12:06PM ; [facility] Chronic gastritis without hemorrhage Med ical Established Patient with Srinivasa Ed [employer]TER 03/08/2023 Last Documented On 3 12:06PM ; [facility] Encounter for Immunization Medical Estab lished Patient with Srinivasa Ed [employer] P[employer]TER 03/08/2023 Last Documented On 3 12:06PM ; [facility] Nicotine dependence continuous Medical E stablished Patient with Srinivasa Ed [employer] 03/08/2023 Last Documented On 3 12:06PM ; [facility] Uncomplicated mild persistent asthma Med ical Established Patient with Srinivasa Ed [employer] 03/08/2023 Last Documented On 3 12:06PM ; [facility] Anxiety disorder NOS BH Established Patient with Lea Stone HEEL BREASTER-S 02/19/2023 Last Documented On 3 4:27PM ; [facility] Bipolar schizoaffective disorder BH Esta blished Patient with Lea Stone HEEL BREASTER-S 02/19/2023 Last Documented On 3 4:27PM ; [facility] Nicotine dependence BH Established Patient with Lea Stone HEEL BREASTER-S 02/19/2023 Last Documented On 3 4:27PM ; [facility] Assessment of body mass index Open Acces s - Established with Srinivasa Ed [employer]TER 02/19/2023 Last Documented On 3 9:22PM ; [facility] [Body mass index [BMI] 33.0- 33.9, adult] assessment of body mass index Medical Established Patient with Srinivasa Ed FR[employer] PITTER 02/05/2023 Last Documented On 3 3:48PM ; [facility] Anxiety disorder NOS Medical Established Patient with Srinivasa Ed [employer] P[employer]TER 02/05/2023 Last Documented On 3 3:48PM ; [facility] Body mass index Medical Established Patient with Srinivasa Ed [employer] P[employer]TER 01/28/2023 Last Documented On 3 8:31PM ; [facility] [Body mass index [BMI] 32.0- 32.9, adult] assessment of body mass index Medical Established Patient with Srinivasa Ed [employer] P[employer]TER 12/31/2022 Last Documented On 3 5:25AM ; [facility] Uncomplicated mild persistent asthma Med ical Established Patient with Srinivasa Ed [employer] PITTER 12/31/2022 Last Documented On 3 5:25AM ; [facility] [Body mass index [BMI] 33.0- 33.9, adult] assessment of body mass index Medical Established Patient with Srinivasa Ed FRUIT PITTER 11/30/2022 Last Documented On 3 12:28PM ; [facility] Anxiety disorder NOS Medical Established Patient with Srinivasa Ed [employer] P[employer]TER 11/30/2022 Last Documented On 3 12:28PM ; [facility] Diabetes Risk Test Score was four score 11/30/2022 Medical Established Patient with Srinivasa Ed FR[employer] PITTER 11/30/2022 Last Documented On 3 12:28PM ; [facility] Uncomplicated mild persistent asthma Med ical Established Patient with Srinivasa Ed FR[employer] PITTER 11/30/2022 Last Documented On 3 12:28PM ; [facility] Visit for: routine adult H&P with abnormal findings Medical Established Patient with Srinivasa Ed FR[employer] PITTER 11/30/2022 Last Documented On 3 12:28PM ; [facility] [Body mass index [BMI] 30.0- 30.9, adult] assessment of body mass index Medical Established Patient with Srinivasa Ed FR[employer] P[employer]TER 01/22/2022 Last Documented On 2 6:17PM ; [facility] Dysuria Medical Established Patient with Srinivasa Ed [employer] P[employer]TER 01/22/2022 Last Documented On 2 6:17PM ; [facility] Bipolar schizoaffective disorder BH Esta blished Patient with Ina Díaz LPCC-S 12/11/2021 Last Documented On 2 2:31PM ; [facility] Assessment of body mass inde x [Body mass index [BMI] 26.0-26.9, adult] Medical Established Patient with Srinivasa Ed [employer] P[employer]TER 12/11/2021 Last Documented On 2 12:34PM ; [facility] Bipolar schizoaffective disorder BH Esta blished Patient with Ina Watkinserson LPCC-S 11/25/2021 Last Documented On 2 1:25PM ; [facility] Anxiety disorder NOS Medical Established Patient with Traci Juma [employer] 11/25/2021 Last Documented On 2 3:06PM ; [facility] Urinary tract infection Medical Establis hed Patient with Traci Juma FR[employer] PITTER 11/25/2021 Last Documented On 2 3:06PM ; [facility] Z68.27 - Body mass index [BM I] 27.0-27.9, adult Medical Established Patient with Traci Juma FR[employer]TER 11/25/2021 Last Documented On 2 3:06PM ; [facility] Anxiety disorder NOS Medical Established Patient with Traci Juma [employer]TER 08/13/2021 Last Documented On 2 8:18AM ; [facility] Assessment of body mass index Medical Es tablished Patient with Traci Juma FR[employer]TER 08/13/2021 Last Documented On 2 8:18AM ; [facility] Chronic gastritis without hemorrhage Med ical Established Patient with Traci Juma FR[employer]TER 08/13/2021 Last Documented On 2 8:18AM ; [facility] Diverticulosis of intestine Medical Esta blished Patient with Traci Juma FR[employer] PITTER 08/13/2021 Last Documented On 2 8:18AM ; [facility] Urinary tract infection Medical Establis hed Patient with Traci Juma FR[employer] P[employer]TER 08/13/2021 Last Documented On 2 8:18AM ; [facility] Anxiety disorder NOS Medical Established Patient with Traci Juma [employer] 07/17/2021 Last Documented On 2 8:10AM ; [facility] Other hypothyroidism Medical Established Patient with Traci Juma FR[employer] P[employer]TER 07/17/2021 Last Documented On 2 8:10AM ; [facility] Upper respiratory infection Medical Esta blished Patient with Traci Juma FR[employer] PITTER 07/17/2021 Last Documented On 2 8:10AM ; [facility] Visit for: routine adult H&P with abnormal findings Medical Established Patient with Traci Dennison [employer] 07/17/2021 Last Documented On 2 8:10AM ; [facility] Visit for: screening for lip oid disorders Medical Established Patient with Traci Dennison [employer] 07/17/2021 Last Documented On 2 8:10AM ; [facility] Vitamin B12 deficiency Medical Establish ed Patient with Traci Dennison [employer] 07/17/2021 Last Documented On 2 8:10AM ; [facility] Vitamin D deficiency Medical Established Patient with Traci Dennison [employer] 07/17/2021 Last Documented On 2 8:10AM ; [facility] Z68.28 - Body mass index [BM I] 28.0-28.9, adult Medical Established Patient with Traci Dennison [employer] 07/17/2021 Last Documented On 2 8:10AM ; [facility] Allergic rhinitis Telemedicine Establi sted Patient with Traci Dennison [employer] 07/16/2021 Last Documented On 2 8:23AM ; [facility] Exposure to COVID-19 Telemedicine Establ isted Patient with Traci Dennison [employer] 04/29/2021 Last Documented On 2 8:02PM ; [facility] Bipolar schizoaffective disorder BH Esta blished [facility] Last Documented On 2 1:07PM ; [facility] Anxiety disorder NOS Medical Established Patient with Traci Dennison [employer] 04/15/2021 Last Documented On 2 9:06AM ; [facility] Assessment of body mass index Medical Es tablished Patient with Traci Dennison [employer] 04/15/2021 Last Documented On 2 9:06AM ; [facility] Bipolar disorder NOS Medical Established Patient with Traci Dennison [employer] 04/15/2021 Last Documented On 2 9:06AM ; [facility] Anxiety disorder NOS BH [facility] Last Documented On 2 9:05AM ; [facility] Bipolar disorder NOS Telebehavioral H ealth with Farrah Jarrett [facility] 04/09/2021 Last Documented On 2 9:05AM ; [facility] Anxiety disorder NOS Established Patient with Hannah Short [facility] 04/03/2021 Last Documented On 1 7:15PM ; [facility] Bipolar I disorder, most rec ent episode, depressed Established Patient with Hannah Short [facility] 04/03/2021 Last Documented On 1 7:15PM ; [facility] Nicotine dependence Established Patient with Hannah Short [facility] 04/03/2021 Last Documented On 1 7:15PM ; [facility] Nicotine dependence Established Patient with Hannah Short [facility] 04/03/2021 Last Documented On 1 7:15PM ; [facility] Undifferentiated schizophren ia per patient reported history Established Patient with Hannah Short [facility] 04/03/2021 Last Documented On 1 7:15PM ; [facility] A home test was negative Medic al Established Patient with Traci Dennison [facility] 04/03/2021 Last Documented On 1 8:11PM ; [facility] Assessment of body mass index Medical Es tablished Patient with Traci Dennison [facility] 04/03/2021 Last Documented On 1 8:11PM ; [facility] Epilepsy, not intractable, w ithout status epilepticus Medical Established Patient with Traci Dennison [facility] 04/03/2021 Last Documented On 1 8:11PM ; [facility] Mixed affective bipolar diso rder, moderate Medical Established Patient with Traci Juma [facility] 04/03/2021 Last Documented On 1 8:11PM ; [facility] Urinary tract infection Medical Establis hed Patient with Traci Juma [facility] 04/03/2021 Last Documented On 1 8:11PM ; [facility] Visit for: screening for STD Medical Est ablished Patient with Traci Dennison [facility] 04/03/2021 Last Documented On 1 8:11PM ; [facility] Assessment of visit for: lupe starr for human immunodeficiency virus Medical Established Patient with Peggy Thrasher [facility] 02/14/2021 Last Documented On 1 1:16PM ; [facility] Diabetes Risk Test Score was three score 02/14/2021 Medical Established Patient with Peggy Thrasher [facility] 02/14/2021 Last Documented On 1 1:16PM ; [facility] Diarrhea Medical Established Patient with Peggy Thrasher [facility] 02/14/2021 Last Documented On 1 1:16PM ; [facility] Nicotine dependence Medical Established Patient with Peggy Thrasher [facility] 02/14/2021 Last Documented On 1 1:16PM ; [facility] Z68.28 - Body mass index [BM I] 28.0-28.9, adult Medical Established Patient with Peggy Thrasher [facility] 02/14/2021 Last Documented On 1 1:16PM ; [facility] Cough Telemedicine Establisted Patient with Traci Dennison [facility] 01/01/2021 Last Documented On 1 6:31PM ; [facility] Fever Telemedicine Establisted Patient with Traci Dennison [facility] 01/01/2021 Last Documented On 1 6:31PM ; [facility] Z20.822 - Contact with and (suspected) exposure to COVID-19 Telemedicine Establisted Patient with Traci Dennison [facility] 01/01/2021 Last Documented On 1 6:31PM ; [facility] Bipolar I disorder, most rec ent episode, depressed Established Patient with Farrahmatthew Hernandezs [facility] 06/03/2020 Last Documented On 1 10:50PM ; [facility] Paranoid schizophrenia per p atient report Established Patient with Farrah Jarrett [facility] 06/03/2020 Last Documented On 1 10:50PM ; [facility] Post-traumatic stress disord er per patient report Established Patient with Farrah Jarrett [facility] 06/03/2020 Last Documented On 1 10:50PM ; [facility] 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 Patient with Traci Dennison [facility] 06/03/2020 Last Documented On 1 8:25AM ; [facility] Overweight Medical Established Patient with Tracizachery Dennison [facility] 06/03/2020 Last Documented On 1 8:25AM ; [facility] Z68.29 - Body mass index [BM I] 29.0-29.9, adult Medical Established Patient with Traci Dennison [facility] 06/03/2020 Last Documented On 1 8:25AM ; [facility] Anxiety disorder NOS Medical Established Patient with Traci Dennison [facility] 01/26/2020 Last Documented On 0 7:37PM ; [facility] Bipolar disorder NOS Medical Established Patient with Traci Dennison [facility] 01/26/2020 Last Documented On 0 7:37PM ; [facility] Infection of tooth Medical Established Patient w ith Traci Dennison [facility] 01/26/2020 Last Documented On 0 7:37PM ; [facility] Z68.20 - Body mass index [BM I] 20.0-20.9, adult Medical Established Patient with Traci Dennison [facility] 01/26/2020 Last Documented On 0 7:37PM ; [facility] Bipolar I disorder, most rec ent episode, mixed Established Patient with Hannah Short [facility] 01/08/2020 Last Documented On 0 11:49AM ; [facility] Generalized anxiety disorder Establis hed Patient with Hannah Short LIS[facility] 01/08/2020 Last Documented On 0 11:49AM ; [facility] Diabetes Risk Test Score was one score 01/08/2020 Medical Established Patient with Peggyisis Leoen [facility] 01/08/2020 Last Documented On 0 1:42PM ; [facility] Overweight Medical Established Patient with Peggy Anna Marie [facility] 01/08/2020 Last Documented On 0 1:42PM ; [facility] Z68.27 - Body mass index (BM I) 27.0-27.9, adult Medical Established Patient with Peggy Anna Marie [facility] 01/08/2020 Last Documented On 0 1:42PM ; [facility] Bipolar I disorder, most rec ent episode, mixed BH Established Patient with Hannah Short LIS[facility] 12/25/2019 Last Documented On 0 6:16PM ; [facility] Generalized anxiety disorder Establis hed Patient with Hannah Short LISWS 12/25/2019 Last Documented On 0 6:16PM ; [facility] Overweight Medical Established Patient with Peggy Thrasher [facility] 12/25/2019 Last Documented On 0 1:54PM ; [facility] Z68.26 - Body mass index (BM I) 26.0-26.9, adult Medical Established Patient with Peggy Thrasher [facility] 12/25/2019 Last Documented On 0 1:54PM ; [facility] Work Phone: [phone]) 370-862711-27-2023 Progress note* Progress note Date Encounter Last Documented by 03/08/2023 Medical Established Patient Last documented on 03/08/2023; 12:06 PM, Srinivasa Jhaveri [facility]; [facility] Active Problems & Conditions - F41.9 [...] States that she has stopped going to [facility] and plans on making an appt with [...] BP-Sitting L131/83 mmHg BP Cuff SizeLarge Pulse Rate-Fqgouju59 bpm Respiration Rate18 per min Rhrehk29 in Bnzvlw713 lbs 2 oz Body Mass Index33.8 kg/m2 Body Surface Area1.7 m2 Oxygen Uxymfdyzor32 % O2 DeviceNone (Room Air) LeU974 % Vital Signs: - Systolic blood pressure [...] Will - Declined to Provide Advance Directive [facility]11-27-2023 Progress note* Progress note Date Encounter Last Documented by 03/08/2023 Established Patient Last docu mented on 03/08/2023; 3:55 PM, Hannah ROY; [facility] Active Problems & Conditions - F41.9 [...] Arthritis Chief Complaint The Chief Complaint is: [facility] met with patient to follow-up regarding mood [...] hospital. Patient reports that she stopped attending [facility] due to having to see 4 different [...] or others. History of Present Illness Abrahan Woods is [...] and Collaborated with patient and provider: Counseling/Education P offered active and supportive listening. [facility] discussed coping skills and supports to implement in daily routine. [facility] discussed community resources that may be able to help. [facility] discussed online and community resources to contact for psychaitry. Plan Patient to take medications as prescribed and contact the office with any questions or concerns. Patient to implement coping skills and positive supports as discussed. [facility] to follow-up with patient at next visit as scheduled. Advance Directives - Living Will - Declined to Provide Advance Directive [facility]11-27-2023 Instructions Includes: Instructions for all patient encounters Instructions to patient Intervention and counseling on cessation of tobacco use, 3-10 minutes Last Documented On 0 1:15PM ; [facility] Education and Decision Aids were provided during visit for: Discussed nutritional needs teach healthy choices including fruits and vegetables Last Documented On 3 10:43AM ; [facility] Patient education about a pr oper diet Last Documented On 3 10:43AM ; [facility] Discussed concerns about exe rcise : promote physical activity ~ ~Will bridge trileptal, starting at 150mg twice a day ~ ~Will follow up in 1 month for mood, unless you get in with Dr Dickerson then you can cancel appt here Last Documented On 3 12:04PM ; [facility] offered active and suppo rtive listening, normalized emotions and feelings, and processed current stressors. ~P empathized with patient regarding her current stressors and encouraged patient to continue to advocate for herself. Patient was receptive Last Documented On 3 4:25PM ; [facility] Discussed nutritional needs teach healthy choices including fruits and vegetables Last Documented On 3 10:19AM ; [facility] Patient education about a pr oper diet Last Documented On 3 10:19AM ; [facility] Discussed concerns about exe rcise : promote physical activity ~ ~Will do vaginal swab to check for yeast infection ~ ~Encouraged to follow up with OBGYN ~ ~Number given to surgeon that GI referred her to, call number and schedule appt ~ ~Follow up at next scheduled appt Last Documented On 3 12:18PM ; [facility] Not requesting contraception Last Documented On 3 10:23AM ; [facility] Discussed nutritional needs teach healthy choices including fruits and vegetables Last Documented On 3 10:48AM ; [facility] Patient education about a pr oper diet Last Documented On 3 10:48AM ; [facility] Discussed concerns about exe rcise : promote physical activity ~ ~Will give augmentin to cover sinuses and urinary tract ~ ~Will send out urine ~ ~Will give steriod due to patients lung sounds ~ ~Will increase symbicort ~ ~Follow up in one month Last Documented On 3 3:48PM ; [facility] Not requesting contraception Last Documented On 3 10:50AM ; [facility] Discussed nutritional needs teach healthy choices including fruits and vegetables Last Documented On 3 11:01AM ; [facility] Patient education about a pr oper diet Last Documented On 3 11:01AM ; [facility] Discussed concerns about exe rcise : promote physical activity ~ ~Follow up after ER visit Last Documented On 3 8:31PM ; [facility] Not requesting contraception Last Documented On 3 11:03AM ; [facility] Discussed nutritional needs teach healthy choices including fruits and vegetables Last Documented On 3 12:03PM ; [facility] Patient education about a pr oper diet Last Documented On 3 12:03PM ; [facility] Discussed concerns about exe rcise : promote physical activity ~ ~Will keep medication the same Last Documented On 3 4:46AM ; [facility] Not requesting contraception Last Documented On 3 12:04PM ; [facility] Discussed nutritional needs teach healthy choices including fruits and vegetables Last Documented On 3 9:09AM ; [facility] Patient education about a pr oper diet Last Documented On 3 9:09AM ; [facility] Patient education about an a sthma action plan Last Documented On 3 9:44AM ; [facility] Discussed concerns about exe rcise : promote physical activity ~ ~Will restart symbicort ~ ~Follow up in one month for asthma Last Documented On 3 12:28PM ; [facility] Discussed nutritional needs teach healthy choices including fruits and vegetables Last Documented On 2 10:58AM ; [facility] Patient education about a pr oper diet Last Documented On 2 10:58AM ; [facility] Discussed concerns about exe rcise : promote physical activity Last Documented On 2 10:58AM ; [facility] Discussed nutritional needs teach healthy choices including fruits and vegetables Last Documented On 2 11:41AM ; [facility] Patient education about a pr oper diet Last Documented On 2 11:41AM ; [facility] Discussed concerns about exe rcise : promote physical activity Last Documented On 2 11:41AM ; [facility] offered active listening and supportive feedback; normalized emotions and feelings, also provided pt time to process any current stressors ~[facility] discussed benefits of counseling and supported pt in following through with scheduled appt. ~[facility] encouraged pt to continue to make time to implement self-care regimen to assist in improving their mood Last Documented On 2 2:29PM ; [facility] Provided supportive listenin g and reflective feedback; monitored mood, explored symptoms, assessed functioning. ~Discussed medication use/compliance. ~Promoted use of healthy coping mechanisms and positive support, as needed Last Documented On 2 1:25PM ; [facility] Discussed nutritional needs teach healthy choices including fruits and vegetables Last Documented On 2 12:54PM ; [facility] Patient education about a pr oper diet Last Documented On 2 12:54PM ; [facility] Discussed concerns about exe rcise : promote physical activity Last Documented On 2 12:54PM ; [facility] Discussed nutritional needs teach healthy choices including fruits and vegetables Last Documented On 2 11:39AM ; [facility] Patient education about a pr oper diet Last Documented On 2 11:39AM ; [facility] Discussed concerns about exe rcise : promote physical activity Last Documented On 2 11:39AM ; [facility] Discussed nutritional needs teach healthy choices including fruits and vegetables Last Documented On 2 10:29AM ; [facility] Patient education about a pr oper diet Last Documented On 2 10:29AM ; [facility] Discussed concerns about exe rcise : promote physical activity Last Documented On 2 10:29AM ; [facility] Discussed current self-care methods/coping skills. ~Validated and normalized patient's feelings while assisting process recent events. ~Discussed ongoing counseling. ~Discussed lifestyle changes to address chronic illness. ~Supported patient's personal health goals Last Documented On 2 8:50PM ; [facility] Discussed nutritional needs teach healthy choices including fruits and vegetables Last Documented On 2 11:15AM ; [facility] Patient education about a pr oper diet Last Documented On 2 11:15AM ; [facility] Discussed concerns about exe rcise : promote physical activity Last Documented On 2 11:15AM ; [facility] Discussed current self-care methods/coping skills. ~Validated and normalized patient's feelings while assisting process recent events. ~Discussed ongoing mental health services. ~Discussed lifestyle changes to address chronic illness. ~Supported patient's personal health goals. ~ ~Reports feeling better since beginning new meds. Also voices and visual hallucinations have stopped; reports voices were not commanfing Last Documented On 2 8:54PM ; [facility] offered active and suppo rtive [...] resources Last Documented On 1 7:15PM ; [facility] Discussed nutritional needs teach healthy choices including fruits and vegetables Last Documented On 1 1:18PM ; [facility] Patient education about a pr oper diet Last Documented On 1 1:18PM ; [facility] Discussed concerns about exe rcise : promote physical activity Last Documented On 1 1:18PM ; [facility] Discussed nutritional needs teach healthy choices including fruits and vegetables Last Documented On 1 10:37AM ; [facility] Patient education about a pr oper diet Last Documented On 1 10:37AM ; [facility] Discussed concerns about exe rcise : promote physical activity Last Documented On 1 10:37AM ; [facility] Explored current symptoms an d stressors. Educaated patient re importance of counseling and provided brief review of EMDR treatment. ~Encouraged patient to engage in ongoing counseling. ~ Last Documented On 1 10:50PM ; [facility] Discussed nutritional needs teach healthy choices including fruits and vegetables Last Documented On 1 6:53PM ; [facility] Patient education about a pr oper diet Last Documented On 1 6:53PM ; [facility] Discussed concerns about exe rcise : promote physical activity Last Documented On 1 6:53PM ; [facility] provided active listenin g, support and helped patient process through current symptoms and stressors related to mood and irritability. ~[facility] discussed coping skills that patient has tried as well as discussed potential benefit of counseling. ~ ~ Last Documented On 0 11:49AM ; [facility] Discussed nutritional needs teach healthy choices including fruits and vegetables Last Documented On 0 1:15PM ; [facility] Patient education about a pr oper diet Last Documented On 0 1:15PM ; [facility] Patient education about a pr oper diet Last Documented On 0 1:33PM ; [facility] Patient education about meal planning Last Documented On 0 1:33PM ; [facility] Education about changing eat ing habits Last Documented On 0 1:33PM ; [facility] Patient education about high fiber diet Last Documented On 0 1:33PM ; [facility] Patient education about low fat diet Last Documented On 0 1:33PM ; [facility] Patient education about low cholesterol diet Last Documented On 0 1:33PM ; [facility] Patient education about low carbohydrate diet Last Documented On 0 1:33PM ; [facility] Patient education about high protein diet Last Documented On 0 1:33PM ; [facility] Discussed concerns about exe rcise : promote physical activity Last Documented On 0 1:15PM ; [facility] provided active listenin g, support and helped patient process through current symptoms and stressors due to pain, loss of work and low frustration tolerance. ~[facility] discussed coping skills and supports that patient can implement inclduing meditation, mindfulness, and deep breathing activities. [facility] provided resources to patient to work on implementing. ~[facility] discussed with patient re-establishing care for therapy and provided patient with resource list. ~ Last Documented On 0 6:15PM ; [facility] Discussed nutritional needs teach healthy choices including fruits and vegetables Last Documented On 0 1:12PM ; [facility] Patient education about a pr oper diet Last Documented On 0 1:12PM ; [facility] Patient education about a pr oper diet Last Documented On 0 1:46PM ; [facility] Patient education about meal planning Last Documented On 0 1:46PM ; [facility] Education about changing eat ing habits Last Documented On 0 1:46PM ; [facility] Patient education about high fiber diet Last Documented On 0 1:46PM ; [facility] Patient education about low fat diet Last Documented On 0 1:46PM ; [facility] Patient education about low cholesterol diet Last Documented On 0 1:46PM ; [facility] Patient education about low carbohydrate diet Last Documented On 0 1:46PM ; [facility] Patient education about high protein diet Last Documented On 0 1:46PM ; [facility] Discussed concerns about exe rcise : promote physical activity Last Documented On 0 1:12PM ; [facility] Work Phone: 1(236) 330-268111-27-2023 Instructions Includes: Instructions for all patient encounters Instructions to patient Intervention and counseling on cessation of tobacco use, 3-10 minutes Last Documented On 0 1:15PM ; [facility] Education and Decision Aids were provided during visit for: [facility] offered active and suppo rtive listening. ~P discussed coping skills and supports to implement in daily routine. [facility] discussed community resources that may be able to help. ~[facility] discussed online and community resources to contact for psychaitry Last Documented On 3 3:55PM ; [facility] Discussed nutritional needs teach healthy choices including fruits and vegetables Last Documented On 3 10:43AM ; [facility] Patient education about a pr oper diet Last Documented On 3 10:43AM ; [facility] Discussed concerns about exe rcise : promote physical activity ~ ~Will bridge trileptal, starting at 150mg twice a day ~ ~Will follow up in 1 month for mood, unless you get in with Dr Dickerson then you can cancel appt here Last Documented On 3 12:04PM ; [facility] offered active and suppo rtive listening, normalized emotions and feelings, and processed current stressors. ~P empathized with patient regarding her current stressors and encouraged patient to continue to advocate for herself. Patient was receptive Last Documented On 3 4:25PM ; [facility] Discussed nutritional needs teach healthy choices including fruits and vegetables Last Documented On 3 10:19AM ; [facility] Patient education about a pr oper diet Last Documented On 3 10:19AM ; [facility] Discussed concerns about exe rcise : promote physical activity ~ ~Will do vaginal swab to check for yeast infection ~ ~Encouraged to follow up with OBGYN ~ ~Number given to surgeon that GI referred her to, call number and schedule appt ~ ~Follow up at next scheduled appt Last Documented On 3 12:18PM ; [facility] Not requesting contraception Last Documented On 3 10:23AM ; [facility] Discussed nutritional needs teach healthy choices including fruits and vegetables Last Documented On 3 10:48AM ; [facility] Patient education about a pr oper diet Last Documented On 3 10:48AM ; [facility] Discussed concerns about exe rcise : promote physical activity ~ ~Will give augmentin to cover sinuses and urinary tract ~ ~Will send out urine ~ ~Will give steriod due to patients lung sounds ~ ~Will increase symbicort ~ ~Follow up in one month Last Documented On 3 3:48PM ; [facility] Not requesting contraception Last Documented On 3 10:50AM ; [facility] Discussed nutritional needs teach healthy choices including fruits and vegetables Last Documented On 3 11:01AM ; [facility] Patient education about a pr oper diet Last Documented On 3 11:01AM ; [facility] Discussed concerns about exe rcise : promote physical activity ~ ~Follow up after ER visit Last Documented On 3 8:31PM ; [facility] Not requesting contraception Last Documented On 3 11:03AM ; [facility] Discussed nutritional needs teach healthy choices including fruits and vegetables Last Documented On 3 12:03PM ; [facility] Patient education about a pr oper diet Last Documented On 3 12:03PM ; [facility] Discussed concerns about exe rcise : promote physical activity ~ ~Will keep medication the same Last Documented On 3 4:46AM ; [facility] Not requesting contraception Last Documented On 3 12:04PM ; [facility] Discussed nutritional needs teach healthy choices including fruits and vegetables Last Documented On 3 9:09AM ; [facility] Patient education about a pr oper diet Last Documented On 3 9:09AM ; [facility] Patient education about an a sthma action plan Last Documented On 3 9:44AM ; [facility] Discussed concerns about exe rcise : promote physical activity ~ ~Will restart symbicort ~ ~Follow up in one month for asthma Last Documented On 3 12:28PM ; [facility] Discussed nutritional needs teach healthy choices including fruits and vegetables Last Documented On 2 10:58AM ; [facility] Patient education about a pr oper diet Last Documented On 2 10:58AM ; [facility] Discussed concerns about exe rcise : promote physical activity Last Documented On 2 10:58AM ; [facility] Discussed nutritional needs teach healthy choices including fruits and vegetables Last Documented On 2 11:41AM ; [facility] Patient education about a pr oper diet Last Documented On 2 11:41AM ; [facility] Discussed concerns about exe rcise : promote physical activity Last Documented On 2 11:41AM ; [facility] offered active listening and supportive feedback; normalized emotions and feelings, also provided pt time to process any current stressors ~[facility] discussed benefits of counseling and supported pt in following through with scheduled appt. ~[facility] encouraged pt to continue to make time to implement self-care regimen to assist in improving their mood Last Documented On 2 2:29PM ; [facility] Provided supportive listenin g and reflective feedback; monitored mood, explored symptoms, assessed functioning. ~Discussed medication use/compliance. ~Promoted use of healthy coping mechanisms and positive support, as needed Last Documented On 2 1:25PM ; [facility] Discussed nutritional needs teach healthy choices including fruits and vegetables Last Documented On 2 12:54PM ; [facility] Patient education about a pr oper diet Last Documented On 2 12:54PM ; [facility] Discussed concerns about exe rcise : promote physical activity Last Documented On 2 12:54PM ; [facility] Discussed nutritional needs teach healthy choices including fruits and vegetables Last Documented On 2 11:39AM ; [facility] Patient education about a pr oper diet Last Documented On 2 11:39AM ; [facility] Discussed concerns about exe rcise : promote physical activity Last Documented On 2 11:39AM ; [facility] Discussed nutritional needs teach healthy choices including fruits and vegetables Last Documented On 2 10:29AM ; [facility] Patient education about a pr oper diet Last Documented On 2 10:29AM ; [facility] Discussed concerns about exe rcise : promote physical activity Last Documented On 2 10:29AM ; [facility] Discussed current self-care methods/coping skills. ~Validated and normalized patient's feelings while assisting process recent events. ~Discussed ongoing counseling. ~Discussed lifestyle changes to address chronic illness. ~Supported patient's personal health goals Last Documented On 2 8:50PM ; [facility] Discussed nutritional needs teach healthy choices including fruits and vegetables Last Documented On 2 11:15AM ; [facility] Patient education about a pr oper diet Last Documented On 2 11:15AM ; [facility] Discussed concerns about exe rcise : promote physical activity Last Documented On 2 11:15AM ; [facility] Discussed current self-care methods/coping skills. ~Validated and normalized patient's feelings while assisting process recent events. ~Discussed ongoing mental health services. ~Discussed lifestyle changes to address chronic illness. ~Supported patient's personal health goals. ~ ~Reports feeling better since beginning new meds. Also voices and visual hallucinations have stopped; reports voices were not commanfing Last Documented On 2 8:54PM ; [facility] and suppo rtive listening and [...] resources Last Documented On 1 7:15PM ; [facility] Discussed nutritional needs teach healthy choices including fruits and vegetables Last Documented On 1 1:18PM ; [facility] Patient education about a pr oper diet Last Documented On 1 1:18PM ; [facility] Discussed concerns about exe rcise : promote physical activity Last Documented On 1 1:18PM ; [facility] Discussed nutritional needs teach healthy choices including fruits and vegetables Last Documented On 1 10:37AM ; [facility] Patient education about a pr oper diet Last Documented On 1 10:37AM ; [facility] Discussed concerns about exe rcise : promote physical activity Last Documented On 1 10:37AM ; [facility] Explored current symptoms an d stressors. Educaated patient re importance of counseling and provided brief review of EMDR treatment. ~Encouraged patient to engage in ongoing counseling. ~ Last Documented On 1 10:50PM ; [facility] Discussed nutritional needs teach healthy choices including fruits and vegetables Last Documented On 1 6:53PM ; [facility] Patient education about a pr oper diet Last Documented On 1 6:53PM ; [facility] Discussed concerns about exe rcise : promote physical activity Last Documented On 1 6:53PM ; [facility] provided active listenin g, support and helped patient process through current symptoms and stressors related to mood and irritability. ~P discussed coping skills that patient has tried as well as discussed potential benefit of counseling. ~ ~ Last Documented On 0 11:49AM ; [facility] Discussed nutritional needs teach healthy choices including fruits and vegetables Last Documented On 0 1:15PM ; [facility] Patient education about a pr oper diet Last Documented On 0 1:15PM ; [facility] Patient education about a pr oper diet Last Documented On 0 1:33PM ; [facility] Patient education about meal planning Last Documented On 0 1:33PM ; [facility] Education about changing eat ing habits Last Documented On 0 1:33PM ; [facility] Patient education about high fiber diet Last Documented On 0 1:33PM ; [facility] Patient education about low fat diet Last Documented On 0 1:33PM ; [facility] Patient education about low cholesterol diet Last Documented On 0 1:33PM ; [facility] Patient education about low carbohydrate diet Last Documented On 0 1:33PM ; [facility] Patient education about high protein diet Last Documented On 0 1:33PM ; [facility] Discussed concerns about exe rcise : promote physical activity Last Documented On 0 1:15PM ; [facility] provided active listenin g, support and helped patient process through current symptoms and stressors due to pain, loss of work and low frustration tolerance. ~[facility] discussed coping skills and supports that patient can implement inclduing meditation, mindfulness, and deep breathing activities. [facility] provided resources to patient to work on implementing. ~[facility] discussed with patient re-establishing care for therapy and provided patient with resource list. ~ Last Documented On 0 6:15PM ; [facility] Discussed nutritional needs teach healthy choices including fruits and vegetables Last Documented On 0 1:12PM ; [facility] Patient education about a pr oper diet Last Documented On 0 1:12PM ; [facility] Patient education about a pr oper diet Last Documented On 0 1:46PM ; [facility] Patient education about meal planning Last Documented On 0 1:46PM ; [facility] Education about changing eat ing habits Last Documented On 0 1:46PM ; [facility] Patient education about high fiber diet Last Documented On 0 1:46PM ; [facility] Patient education about low fat diet Last Documented On 0 1:46PM ; [facility] Patient education about low cholesterol diet Last Documented On 0 1:46PM ; [facility] Patient education about low carbohydrate diet Last Documented On 0 1:46PM ; [facility] Patient education about high protein diet Last Documented On 0 1:46PM ; [facility] Discussed concerns about exe rcise : promote physical activity Last Documented On 0 1:12PM ; [facility] Work Phone: 1([phone]) 776-943411-12-2023 Instructions Includes: Instructions for all patient encounters Instructions to patient Intervention and counseling on cessation of tobacco use, 3-10 minutes Last Documented On 0 1:15PM ; [facility] Education and Decision Aids were provided during visit for: [facility] offered active and suppo rtive listening, normalized emotions and feelings, and processed current stressors. ~P empathized with patient regarding her current stressors and encouraged patient to continue to advocate for herself. Patient was receptive Last Documented On 3 4:25PM ; [facility] Discussed nutritional needs teach healthy choices including fruits and vegetables Last Documented On 3 10:19AM ; [facility] Patient education about a pr oper diet Last Documented On 3 10:19AM ; [facility] Discussed concerns about exe rcise : promote physical activity ~ ~Will do vaginal swab to check for yeast infection ~ ~Encouraged to follow up with OBGYN ~ ~Number given to surgeon that GI referred her to, call number and schedule appt ~ ~Follow up at next scheduled appt Last Documented On 3 12:18PM ; [facility] Not requesting contraception Last Documented On 3 10:23AM ; [facility] Discussed nutritional needs teach healthy choices including fruits and vegetables Last Documented On 3 10:48AM ; [facility] Patient education about a pr oper diet Last Documented On 3 10:48AM ; [facility] Discussed concerns about exe rcise : promote physical activity ~ ~Will give augmentin to cover sinuses and urinary tract ~ ~Will send out urine ~ ~Will give steriod due to patients lung sounds ~ ~Will increase symbicort ~ ~Follow up in one month Last Documented On 3 3:48PM ; [facility] Not requesting contraception Last Documented On 3 10:50AM ; [facility] Discussed nutritional needs teach healthy choices including fruits and vegetables Last Documented On 3 11:01AM ; [facility] Patient education about a pr oper diet Last Documented On 3 11:01AM ; [facility] Discussed concerns about exe rcise : promote physical activity ~ ~Follow up after ER visit Last Documented On 3 8:31PM ; [facility] Not requesting contraception Last Documented On 3 11:03AM ; [facility] Discussed nutritional needs teach healthy choices including fruits and vegetables Last Documented On 3 12:03PM ; [facility] Patient education about a pr oper diet Last Documented On 3 12:03PM ; [facility] Discussed concerns about exe rcise : promote physical activity ~ ~Will keep medication the same Last Documented On 3 4:46AM ; [facility] Not requesting contraception Last Documented On 3 12:04PM ; [facility] Discussed nutritional needs teach healthy choices including fruits and vegetables Last Documented On 3 9:09AM ; [facility] Patient education about a pr oper diet Last Documented On 3 9:09AM ; [facility] Patient education about an a sthma action plan Last Documented On 3 9:44AM ; [facility] Discussed concerns about exe rcise : promote physical activity ~ ~Will restart symbicort ~ ~Follow up in one month for asthma Last Documented On 3 12:28PM ; [facility] Discussed nutritional needs teach healthy choices including fruits and vegetables Last Documented On 2 10:58AM ; [facility] Patient education about a pr oper diet Last Documented On 2 10:58AM ; [facility] Discussed concerns about exe rcise : promote physical activity Last Documented On 2 10:58AM ; [facility] Discussed nutritional needs teach healthy choices including fruits and vegetables Last Documented On 2 11:41AM ; [facility] Patient education about a pr oper diet Last Documented On 2 11:41AM ; [facility] Discussed concerns about exe rcise : promote physical activity Last Documented On 2 11:41AM ; [facility] offered active listening and supportive feedback; normalized emotions and feelings, also provided pt time to process any current stressors ~P discussed benefits of counseling and supported pt in following through with scheduled appt. ~P encouraged pt to continue to make time to implement self-care regimen to assist in improving their mood Last Documented On 2 2:29PM ; [facility] Provided supportive listenin g and reflective feedback; monitored mood, explored symptoms, assessed functioning. ~Discussed medication use/compliance. ~Promoted use of healthy coping mechanisms and positive support, as needed Last Documented On 2 1:25PM ; [facility] Discussed nutritional needs teach healthy choices including fruits and vegetables Last Documented On 2 12:54PM ; [facility] Patient education about a pr oper diet Last Documented On 2 12:54PM ; [facility] Discussed concerns about exe rcise : promote physical activity Last Documented On 2 12:54PM ; [facility] Discussed nutritional needs teach healthy choices including fruits and vegetables Last Documented On 2 11:39AM ; [facility] Patient education about a pr oper diet Last Documented On 2 11:39AM ; [facility] Discussed concerns about exe rcise : promote physical activity Last Documented On 2 11:39AM ; [facility] Discussed nutritional needs teach healthy choices including fruits and vegetables Last Documented On 2 10:29AM ; [facility] Patient education about a pr oper diet Last Documented On 2 10:29AM ; [facility] Discussed concerns about exe rcise : promote physical activity Last Documented On 2 10:29AM ; [facility] Discussed current self-care methods/coping skills. ~Validated and normalized patient's feelings while assisting process recent events. ~Discussed ongoing counseling. ~Discussed lifestyle changes to address chronic illness. ~Supported patient's personal health goals Last Documented On 2 8:50PM ; [facility] Discussed nutritional needs teach healthy choices including fruits and vegetables Last Documented On 2 11:15AM ; [facility] Patient education about a pr oper diet Last Documented On 2 11:15AM ; [facility] Discussed concerns about exe rcise : promote physical activity Last Documented On 2 11:15AM ; [facility] Discussed current self-care methods/coping skills. ~Validated and normalized patient's feelings while assisting process recent events. ~Discussed ongoing mental health services. ~Discussed lifestyle changes to address chronic illness. ~Supported patient's personal health goals. ~ ~Reports feeling better since beginning new meds. Also voices and visual hallucinations have stopped; reports voices were not commanfing Last Documented On 2 8:54PM ; [facility] offered active and suppo rtive [...] significant others Mom or go to her [employer] house. ~[facility] and [facility]CP discussed plan to follow-up with psychiatry and counseling and a new referral being sent to [facility]. If patient is not accepted back as a patient with Dr. Dickerson, will look into other resources Last Documented On 1 7:15PM ; [facility] Discussed nutritional needs teach healthy choices including fruits and vegetables Last Documented On 1 1:18PM ; [facility] Patient education about a pr oper diet Last Documented On 1 1:18PM ; [facility] Discussed concerns about exe rcise : promote physical activity Last Documented On 1 1:18PM ; [facility] Discussed nutritional needs teach healthy choices including fruits and vegetables Last Documented On 1 10:37AM ; [facility] Patient education about a pr oper diet Last Documented On 1 10:37AM ; [facility] Discussed concerns about exe rcise : promote physical activity Last Documented On 1 10:37AM ; [facility] Explored current symptoms an d stressors. Educaated patient re importance of counseling and provided brief review of EMDR treatment. ~Encouraged patient to engage in ongoing counseling. ~ Last Documented On 1 10:50PM ; [facility] Discussed nutritional needs teach healthy choices including fruits and vegetables Last Documented On 1 6:53PM ; [facility] Patient education about a pr oper diet Last Documented On 1 6:53PM ; [facility] Discussed concerns about exe rcise : promote physical activity Last Documented On 1 6:53PM ; [facility] provided active listenin g, support and helped patient process through current symptoms and stressors related to mood and irritability. ~P discussed coping skills that patient has tried as well as discussed potential benefit of counseling. ~ ~ Last Documented On 0 11:49AM ; [facility] Discussed nutritional needs teach healthy choices including fruits and vegetables Last Documented On 0 1:15PM ; [facility] Patient education about a pr oper diet Last Documented On 0 1:15PM ; [facility] Patient education about a pr oper diet Last Documented On 0 1:33PM ; [facility] Patient education about meal planning Last Documented On 0 1:33PM ; [facility] Education about changing eat ing habits Last Documented On 0 1:33PM ; [facility] Patient education about high fiber diet Last Documented On 0 1:33PM ; [facility] Patient education about low fat diet Last Documented On 0 1:33PM ; [facility] Patient education about low cholesterol diet Last Documented On 0 1:33PM ; [facility] Patient education about low carbohydrate diet Last Documented On 0 1:33PM ; [facility] Patient education about high protein diet Last Documented On 0 1:33PM ; [facility] Discussed concerns about exe rcise : promote physical activity Last Documented On 0 1:15PM ; [facility] provided active listenin g, support and helped patient process through current symptoms and stressors due to pain, loss of work and low frustration tolerance. ~[facility] discussed coping skills and supports that patient can implement inclduing meditation, mindfulness, and deep breathing activities. [facility] provided resources to patient to work on implementing. ~[facility] discussed with patient re-establishing care for therapy and provided patient with resource list. ~ Last Documented On 0 6:15PM ; [facility] Discussed nutritional needs teach healthy choices including fruits and vegetables Last Documented On 0 1:12PM ; [facility] Patient education about a pr oper diet Last Documented On 0 1:12PM ; [facility] Patient education about a pr oper diet Last Documented On 0 1:46PM ; [facility] Patient education about meal planning Last Documented On 0 1:46PM ; [facility] Education about changing eat ing habits Last Documented On 0 1:46PM ; [facility] Patient education about high fiber diet Last Documented On 0 1:46PM ; [facility] Patient education about low fat diet Last Documented On 0 1:46PM ; [facility] Patient education about low cholesterol diet Last Documented On 0 1:46PM ; [facility] Patient education about low carbohydrate diet Last Documented On 0 1:46PM ; [facility] Patient education about high protein diet Last Documented On 0 1:46PM ; [facility] Discussed concerns about exe rcise : promote physical activity Last Documented On 0 1:12PM ; [facility] Work Phone: 1([phone]) 578-113111-11-2023 History general Narrative - Reported Includes: Medical History in patient's chart Description Last Updated No previous suicide attempt 02/20/2023 Last Documented On 3 4:27PM ; [facility] No Safety Measures 02/20/2023 Last Documented On 3 4:27PM ; [facility] Not planning to have a baby in the next 12 months 11/30/2022 Last Documented On 3 12:28PM ; [facility] History of anxiety disorder NOS 07/18/19 22 Last Documented On 2 8:10AM ; [facility] No previous hospitalizations 04/03/2021 Last Documented On 1 8:11PM ; [facility] History of complete colonoscopy 04/03/20 Last Documented On 1 8:11PM ; [facility] Epilepsy 12/25/2019 Last Documented On 0 1:54PM ; [facility] 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 Last Documented On 0 1:54PM ; [facility] Ovarian cyst 12/25/2019 Last Documented On 0 1:54PM ; [facility] Post-traumatic stress disorder 0 Last Documented On 0 1:54PM ; [facility] History of asthma 12/25/2019 Last Documented On 0 1:54PM ; [facility] History of schizophrenia 12/25/2019 Last Documented On 0 1:54PM ; [facility] History of bipolar disorder NOS 12/25/19 Last Documented On 0 1:54PM ; [facility] History of depression 12/25/2019 Last Documented On 0 1:54PM ; [facility] History of psychiatric disorders 020 Last Documented On 0 1:54PM ; [facility] Work Phone: [phone]) 752-650311-11-2023 History general Narrative - Reported Includes: Medical History in patient's chart Description Last Updated No previous suicide attempt 02/20/2023 Last Documented On 3 4:27PM ; [facility] No Safety Measures 02/20/2023 Last Documented On 3 4:27PM ; [facility] Not planning to have a baby in the next 12 months 11/30/2022 Last Documented On 3 12:28PM ; [facility] History of anxiety disorder NOS 07/18/19 22 Last Documented On 2 8:10AM ; [facility] No previous hospitalizations 04/03/2021 Last Documented On 1 8:11PM ; [facility] History of complete colonoscopy 04/03/20 21 Last Documented On 1 8:11PM ; [facility] Epilepsy 12/25/2019 Last Documented On 0 1:54PM ; [facility] 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 Last Documented On 0 1:54PM ; [facility] Ovarian cyst 12/25/2019 Last Documented On 0 1:54PM ; [facility] Post-traumatic stress disorder 0 Last Documented On 0 1:54PM ; [facility] History of asthma 12/25/2019 Last Documented On 0 1:54PM ; [facility] History of schizophrenia 12/25/2019 Last Documented On 0 1:54PM ; [facility] History of bipolar disorder NOS 12/25/19 Last Documented On 0 1:54PM ; [facility] History of depression 12/25/2019 Last Documented On 0 1:54PM ; [facility] History of psychiatric disorders 020 Last Documented On 0 1:54PM ; [facility] Work Phone: [phone]) 861-781711-11-2023 History general Narrative - Reported Includes: Medical History in patient's chart Description Last Updated No previous suicide attempt 02/20/2023 Last Documented On 3 4:27PM ; [facility] No Safety Measures 02/20/2023 Last Documented On 3 4:27PM ; [facility] Not planning to have a baby in the next 12 months 11/30/2022 Last Documented On 3 12:28PM ; [facility] History of anxiety disorder NOS 07/18/19 22 Last Documented On 2 8:10AM ; [facility] No previous hospitalizations 04/03/2021 Last Documented On 1 8:11PM ; [facility] History of complete colonoscopy 04/03/20 21 Last Documented On 1 8:11PM ; [facility] Epilepsy 12/25/2019 Last Documented On 0 1:54PM ; [facility] 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 Last Documented On 0 1:54PM ; [facility] Ovarian cyst 12/25/2019 Last Documented On 0 1:54PM ; [facility] Post-traumatic stress disorder 0 Last Documented On 0 1:54PM ; [facility] History of asthma 12/25/2019 Last Documented On 0 1:54PM ; [facility] History of schizophrenia 12/25/2019 Last Documented On 0 1:54PM ; [facility] History of bipolar disorder NOS 12/25/19 20 Last Documented On 0 1:54PM ; [facility] History of depression 12/25/2019 Last Documented On 0 1:54PM ; [facility] History of psychiatric disorders 020 Last Documented On 0 1:54PM ; [facility] Work Phone: [phone]) 480-270111-11-2023 History general Narrative - Reported Includes: Medical History in patient's chart Description Last Updated No previous suicide attempt 02/20/2023 Last Documented On 3 4:27PM ; [facility] No Safety Measures 02/20/2023 Last Documented On 3 4:27PM ; [facility] Not planning to have a baby in the next 12 months 11/30/2022 Last Documented On 3 12:28PM ; [facility] History of anxiety disorder NOS 07/18/19 22 Last Documented On 2 8:10AM ; [facility] No previous hospitalizations 04/03/2021 Last Documented On 1 8:11PM ; [facility] History of complete colonoscopy 04/03/20 21 Last Documented On 1 8:11PM ; [facility] Epilepsy 12/25/2019 Last Documented On 0 1:54PM ; [facility] 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 Last Documented On 0 1:54PM ; [facility] Ovarian cyst 12/25/2019 Last Documented On 0 1:54PM ; [facility] Post-traumatic stress disorder 0 Last Documented On 0 1:54PM ; [facility] History of asthma 12/25/2019 Last Documented On 0 1:54PM ; [facility] History of schizophrenia 12/25/2019 Last Documented On 0 1:54PM ; [facility] History of bipolar disorder NOS 12/25/19 20 Last Documented On 0 1:54PM ; [facility] History of depression 12/25/2019 Last Documented On 0 1:54PM ; [facility] History of psychiatric disorders 020 Last Documented On 0 1:54PM ; [facility] Work Phone: 1(851) 440-273111-11-2023 Instructions Includes: Instructions for all patient encounters Instructions to patient Intervention and counseling on cessation of tobacco use, 3-10 minutes Last Documented On 0 1:15PM ; [facility] Education and Decision Aids were provided during visit for: [facility] offered active and suppo rtive listening, normalized emotions and feelings, and processed current stressors. ~[facility] empathized with patient regarding her current stressors and encouraged patient to continue to advocate for herself. Patient was receptive Last Documented On 3 4:25PM ; [facility] Discussed nutritional needs teach healthy choices including fruits and vegetables Last Documented On 3 10:19AM ; [facility] Patient education about a pr oper diet Last Documented On 3 10:19AM ; [facility] Discussed concerns about exe rcise : promote physical activity ~ ~Will do vaginal swab to check for yeast infection ~ ~Encouraged to follow up with OBGYN ~ ~Number given to surgeon that GI referred her to, call number and schedule appt ~ ~Follow up at next scheduled appt Last Documented On 3 12:18PM ; [facility] Not requesting contraception Last Documented On 3 10:23AM ; [facility] Discussed nutritional needs teach healthy choices including fruits and vegetables Last Documented On 3 10:48AM ; [facility] Patient education about a pr oper diet Last Documented On 3 10:48AM ; [facility] Discussed concerns about exe rcise : promote physical activity ~ ~Will give augmentin to cover sinuses and urinary tract ~ ~Will send out urine ~ ~Will give steriod due to patients lung sounds ~ ~Will increase symbicort ~ ~Follow up in one month Last Documented On 3 3:48PM ; [facility] Not requesting contraception Last Documented On 3 10:50AM ; [facility] Discussed nutritional needs teach healthy choices including fruits and vegetables Last Documented On 3 11:01AM ; [facility] Patient education about a pr oper diet Last Documented On 3 11:01AM ; [facility] Discussed concerns about exe rcise : promote physical activity ~ ~Follow up after ER visit Last Documented On 3 8:31PM ; [facility] Not requesting contraception Last Documented On 3 11:03AM ; [facility] Discussed nutritional needs teach healthy choices including fruits and vegetables Last Documented On 3 12:03PM ; [facility] Patient education about a pr oper diet Last Documented On 3 12:03PM ; [facility] Discussed concerns about exe rcise : promote physical activity ~ ~Will keep medication the same Last Documented On 3 4:46AM ; [facility] Not requesting contraception Last Documented On 3 12:04PM ; [facility] Discussed nutritional needs teach healthy choices including fruits and vegetables Last Documented On 3 9:09AM ; [facility] Patient education about a pr oper diet Last Documented On 3 9:09AM ; [facility] Patient education about an a sthma action plan Last Documented On 3 9:44AM ; [facility] Discussed concerns about exe rcise : promote physical activity ~ ~Will restart symbicort ~ ~Follow up in one month for asthma Last Documented On 3 12:28PM ; [facility] Discussed nutritional needs teach healthy choices including fruits and vegetables Last Documented On 2 10:58AM ; [facility] Patient education about a pr oper diet Last Documented On 2 10:58AM ; [facility] Discussed concerns about exe rcise : promote physical activity Last Documented On 2 10:58AM ; [facility] Discussed nutritional needs teach healthy choices including fruits and vegetables Last Documented On 2 11:41AM ; [facility] Patient education about a pr oper diet Last Documented On 2 11:41AM ; [facility] Discussed concerns about exe rcise : promote physical activity Last Documented On 2 11:41AM ; [facility] offered active listening and supportive feedback; normalized emotions and feelings, also provided pt time to process any current stressors ~[facility] discussed benefits of counseling and supported pt in following through with scheduled appt. ~[facility] encouraged pt to continue to make time to implement self-care regimen to assist in improving their mood Last Documented On 2 2:29PM ; [facility] Provided supportive listenin g and reflective feedback; monitored mood, explored symptoms, assessed functioning. ~Discussed medication use/compliance. ~Promoted use of healthy coping mechanisms and positive support, as needed Last Documented On 2 1:25PM ; [facility] Discussed nutritional needs teach healthy choices including fruits and vegetables Last Documented On 2 12:54PM ; [facility] Patient education about a pr oper diet Last Documented On 2 12:54PM ; [facility] Discussed concerns about exe rcise : promote physical activity Last Documented On 2 12:54PM ; [facility] Discussed nutritional needs teach healthy choices including fruits and vegetables Last Documented On 2 11:39AM ; [facility] Patient education about a pr oper diet Last Documented On 2 11:39AM ; [facility] Discussed concerns about exe rcise : promote physical activity Last Documented On 2 11:39AM ; [facility] Discussed nutritional needs teach healthy choices including fruits and vegetables Last Documented On 2 10:29AM ; [facility] Patient education about a pr oper diet Last Documented On 2 10:29AM ; [facility] Discussed concerns about exe rcise : promote physical activity Last Documented On 2 10:29AM ; [facility] Discussed current self-care methods/coping skills. ~Validated and normalized patient's feelings while assisting process recent events. ~Discussed ongoing counseling. ~Discussed lifestyle changes to address chronic illness. ~Supported patient's personal health goals Last Documented On 2 8:50PM ; [facility] Discussed nutritional needs teach healthy choices including fruits and vegetables Last Documented On 2 11:15AM ; [facility] Patient education about a pr oper diet Last Documented On 2 11:15AM ; [facility] Discussed concerns about exe rcise : promote physical activity Last Documented On 2 11:15AM ; [facility] Discussed current self-care methods/coping skills. ~Validated and normalized patient's feelings while assisting process recent events. ~Discussed ongoing mental health services. ~Discussed lifestyle changes to address chronic illness. ~Supported patient's personal health goals. ~ ~Reports feeling better since beginning new meds. Also voices and visual hallucinations have stopped; reports voices were not commanfing Last Documented On 2 8:54PM ; [facility] active and suppo rtive listening and [...] resources Last Documented On 1 7:15PM ; [facility] Discussed nutritional needs teach healthy choices including fruits and vegetables Last Documented On 1 1:18PM ; [facility] Patient education about a pr oper diet Last Documented On 1 1:18PM ; [facility] Discussed concerns about exe rcise : promote physical activity Last Documented On 1 1:18PM ; [facility] Discussed nutritional needs teach healthy choices including fruits and vegetables Last Documented On 1 10:37AM ; [facility] Patient education about a pr oper diet Last Documented On 1 10:37AM ; [facility] Discussed concerns about exe rcise : promote physical activity Last Documented On 1 10:37AM ; [facility] Explored current symptoms an d stressors. Educaated patient re importance of counseling and provided brief review of EMDR treatment. ~Encouraged patient to engage in ongoing counseling. ~ Last Documented On 1 10:50PM ; [facility] Discussed nutritional needs teach healthy choices including fruits and vegetables Last Documented On 1 6:53PM ; [facility] Patient education about a pr oper diet Last Documented On 1 6:53PM ; [facility] Discussed concerns about exe rcise : promote physical activity Last Documented On 1 6:53PM ; [facility] provided active listenin g, support and helped patient process through current symptoms and stressors related to mood and irritability. ~P discussed coping skills that patient has tried as well as discussed potential benefit of counseling. ~ ~ Last Documented On 0 11:49AM ; [facility] Discussed nutritional needs teach healthy choices including fruits and vegetables Last Documented On 0 1:15PM ; [facility] Patient education about a pr oper diet Last Documented On 0 1:15PM ; [facility] Patient education about a pr oper diet Last Documented On 0 1:33PM ; [facility] Patient education about meal planning Last Documented On 0 1:33PM ; [facility] Education about changing eat ing habits Last Documented On 0 1:33PM ; [facility] Patient education about high fiber diet Last Documented On 0 1:33PM ; [facility] Patient education about low fat diet Last Documented On 0 1:33PM ; [facility] Patient education about low cholesterol diet Last Documented On 0 1:33PM ; [facility] Patient education about low carbohydrate diet Last Documented On 0 1:33PM ; [facility] Patient education about high protein diet Last Documented On 0 1:33PM ; [facility] Discussed concerns about exe rcise : promote physical activity Last Documented On 0 1:15PM ; [facility] provided active listenin g, support and helped patient process through current symptoms and stressors due to pain, loss of work and low frustration tolerance. ~[facility] discussed coping skills and supports that patient can implement inclduing meditation, mindfulness, and deep breathing activities. [facility] provided resources to patient to work on implementing. ~[facility] discussed with patient re-establishing care for therapy and provided patient with resource list. ~ Last Documented On 0 6:15PM ; [facility] Discussed nutritional needs teach healthy choices including fruits and vegetables Last Documented On 0 1:12PM ; [facility] Patient education about a pr oper diet Last Documented On 0 1:12PM ; [facility] Patient education about a pr oper diet Last Documented On 0 1:46PM ; [facility] Patient education about meal planning Last Documented On 0 1:46PM ; [facility] Education about changing eat ing habits Last Documented On 0 1:46PM ; [facility] Patient education about high fiber diet Last Documented On 0 1:46PM ; [facility] Patient education about low fat diet Last Documented On 0 1:46PM ; [facility] Patient education about low cholesterol diet Last Documented On 0 1:46PM ; [facility] Patient education about low carbohydrate diet Last Documented On 0 1:46PM ; [facility] Patient education about high protein diet Last Documented On 0 1:46PM ; [facility] Discussed concerns about exe rcise : promote physical activity Last Documented On 0 1:12PM ; [facility] Work Phone: 1(737) 956-316411-10-2023 Evaluation note Includes: Assessments for all patient encounters Findings Encounter Date Anxiety disorder NOS Established Patient with Lea Stone HEEL BREASTER-S 02/19/2023 Last Documented On 3 4:27PM ; [facility] Bipolar schizoaffective disorder Esta blished Patient with Lea Stone HEEL BREASTER-S 02/19/2023 Last Documented On 3 4:27PM ; [facility] Nicotine dependence Established Patient with Lea Stone HEEL BREASTER-S 02/19/2023 Last Documented On 3 4:27PM ; [facility] Assessment of body mass index Open Acces s - Established with Srinivasa Ed FRUIT PITTER 02/19/2023 Last Documented On 3 12:18PM ; [facility] [Body mass index [BMI] 33.0- 33.9, adult] assessment of body mass index Medical Established Patient with Srinivasa Ed FRUIT PITTER 02/05/2023 Last Documented On 3 3:48PM ; [facility] Anxiety disorder NOS Medical Established Patient with Srinivasa Ed FR[employer] PITTER 02/05/2023 Last Documented On 3 3:48PM ; [facility] Body mass index Medical Established Patient with Srinivasa Ed FR[employer] PITTER 01/28/2023 Last Documented On 3 8:31PM ; [facility] [Body mass index [BMI] 32.0- 32.9, adult] assessment of body mass index Medical Established Patient with Srinivasa De FRUIT PITTER 12/31/2022 Last Documented On 3 5:25AM ; [facility] Uncomplicated mild persistent asthma Med ical Established Patient with Srinivasa Ed FR[employer] PITTER 12/31/2022 Last Documented On 3 5:25AM ; [facility] [Body mass index [BMI] 33.0- 33.9, adult] assessment of body mass index Medical Established Patient with Srinivasa Ed FRUIT PITTER 11/30/2022 Last Documented On 3 12:28PM ; [facility] Anxiety disorder NOS Medical Established Patient with Srinivasa Ed FRUIT PITTER 11/30/2022 Last Documented On 3 12:28PM ; [facility] Diabetes Risk Test Score was four score 11/30/2022 Medical Established Patient with Srinivasa Ed FR[employer] PITTER 11/30/2022 Last Documented On 3 12:28PM ; [facility] Uncomplicated mild persistent asthma Med ical Established Patient with Srinivasa Ed FRUIT PITTER 11/30/2022 Last Documented On 3 12:28PM ; [facility] Visit for: routine adult H&P with abnormal findings Medical Established Patient with Srinivasa Ed FR[employer] PITTER 11/30/2022 Last Documented On 3 12:28PM ; [facility] [Body mass index [BMI] 30.0- 30.9, adult] assessment of body mass index Medical Established Patient with Srinivasa Ed FRUIT PITTER 01/22/2022 Last Documented On 2 6:17PM ; [facility] Dysuria Medical Established Patient with Srinivasa Ed FR[employer] PITTER 01/22/2022 Last Documented On 2 6:17PM ; [facility] Bipolar schizoaffective disorder BH Esta blished Patient with Inatameka Díaz LPCC-S 12/11/2021 Last Documented On 2 2:31PM ; [facility] Assessment of body mass inde x [Body mass index [BMI] 26.0-26.9, adult] Medical Established Patient with Srinivasa Ed FRUIT PITTER 12/11/2021 Last Documented On 2 12:34PM ; [facility] Bipolar schizoaffective disorder BH Esta blished Patient with Ina Díaz LPCC-S 11/25/2021 Last Documented On 2 1:25PM ; [facility] Anxiety disorder NOS Medical Established Patient with Traci Juma FR[employer] 11/25/2021 Last Documented On 2 3:06PM ; [facility] Urinary tract infection Medical Establis hed Patient with Traci Juma FR[employer] PITTER 11/25/2021 Last Documented On 2 3:06PM ; [facility] Z68.27 - Body mass index [BM I] 27.0-27.9, adult Medical Established Patient with Traci Juma FR[employer]TER 11/25/2021 Last Documented On 2 3:06PM ; [facility] Anxiety disorder NOS Medical Established Patient with Traci Juma [employer] 08/13/2021 Last Documented On 2 8:18AM ; [facility] Assessment of body mass index Medical Es tablished Patient with Traci Juma FR[employer]TER 08/13/2021 Last Documented On 2 8:18AM ; [facility] Chronic gastritis without hemorrhage Med ical Established Patient with Traci Juma [employer]TER 08/13/2021 Last Documented On 2 8:18AM ; [facility] Diverticulosis of intestine Medical Esta blished Patient with Traci Juma FR[employer]TER 08/13/2021 Last Documented On 2 8:18AM ; [facility] Urinary tract infection Medical Establis hed Patient with Traci Juma FR[employer]TER 08/13/2021 Last Documented On 2 8:18AM ; [facility] Anxiety disorder NOS Medical Established Patient with Traci Juma FR[employer]TER 07/17/2021 Last Documented On 2 8:10AM ; [facility] Other hypothyroidism Medical Established Patient with Traci Juma FR[employer] PITTER 07/17/2021 Last Documented On 2 8:10AM ; [facility] Upper respiratory infection Medical Esta blished Patient with Traci Juma FR[employer]ITTER 07/17/2021 Last Documented On 2 8:10AM ; [facility] Visit for: routine adult H&P with abnormal findings Medical Established Patient with Traci Juma FR[employer] PITTER 07/17/2021 Last Documented On 2 8:10AM ; [facility] Visit for: screening for lip oid disorders Medical Established Patient with Traci Juma FR[employer]TER 07/17/2021 Last Documented On 2 8:10AM ; [facility] Vitamin B12 deficiency Medical Establish ed Patient with Traci Dennison FR[employer]TER 07/17/2021 Last Documented On 2 8:10AM ; [facility] Vitamin D deficiency Medical Established Patient with Traci Dennison [employer] 07/17/2021 Last Documented On 2 8:10AM ; [facility] Z68.28 - Body mass index [BM I] 28.0-28.9, adult Medical Established Patient with Traci Dennison [employer] 07/17/2021 Last Documented On 2 8:10AM ; [facility] Allergic rhinitis Telemedicine Establi sted Patient with Traci Dennison [employer] 07/16/2021 Last Documented On 2 8:23AM ; [facility] Exposure to COVID-19 Telemedicine Establ isted Patient with Traci Dennison [employer] 04/29/2021 Last Documented On 2 8:02PM ; [facility] Bipolar schizoaffective disorder BH Esta blished Patient with Farrah Jarrett LPCC-S 04/15/2021 Last Documented On 2 1:07PM ; [facility] Anxiety disorder NOS Medical Established Patient with Traci Dennison FR[employer] 04/15/2021 Last Documented On 2 9:06AM ; [facility] Assessment of body mass index Medical Es tablished Patient with Traci Dennison [employer] 04/15/2021 Last Documented On 2 9:06AM ; [facility] Bipolar disorder NOS Medical Established Patient with Traci Dennison [employer] 04/15/2021 Last Documented On 2 9:06AM ; [facility] Anxiety disorder NOS Telebehavioral H ealth with Farrah Jarrett LPCC-S 04/09/2021 Last Documented On 2 9:05AM ; [facility] Bipolar disorder NOS BH Telebehavioral H ealth with Farrah Jarrett LPCC-S 04/09/2021 Last Documented On 2 9:05AM ; [facility] Anxiety disorder NOS BH Established Patient with Hannah Short LISWS 04/03/2021 Last Documented On 1 7:15PM ; [facility] Bipolar I disorder, most rec ent episode, depressed Established Patient with Hannah Short LISWS 04/03/2021 Last Documented On 1 7:15PM ; [facility] Nicotine dependence Established Patient with Hannah Short LISWS 04/03/2021 Last Documented On 1 7:15PM ; [facility] Nicotine dependence Established Patient with Hannah Short LISWS 04/03/2021 Last Documented On 1 7:15PM ; [facility] Undifferentiated schizophren ia per patient reported history Established Patient with Hannah Short LISWS 04/03/2021 Last Documented On 1 7:15PM ; [facility] A home test was negative Medic al Established Patient with Traci Dennison FR[employer]TER 04/03/2021 Last Documented On 1 8:11PM ; [facility] Assessment of body mass index Medical Es tablished Patient with Traci Juma FR[employer]TER 04/03/2021 Last Documented On 1 8:11PM ; [facility] Epilepsy, not intractable, w ithout status epilepticus Medical Established Patient with Traci Juma [employer] 04/03/2021 Last Documented On 1 8:11PM ; [facility] Mixed affective bipolar diso rder, moderate Medical Established Patient with Traci Dennison [employer] 04/03/2021 Last Documented On 1 8:11PM ; [facility] Urinary tract infection Medical Establis hed Patient with Traci Juma [employer]ITTER 04/03/2021 Last Documented On 1 8:11PM ; [facility] Visit for: screening for STD Medical Est ablished Patient with Traci Juma FR[employer] PITTER 04/03/2021 Last Documented On 1 8:11PM ; [facility] Assessment of visit for: scr eening for human immunodeficiency virus Medical Established Patient with Peggy Thrasher [employer]TER 02/14/2021 Last Documented On 1 1:16PM ; [facility] Diabetes Risk Test Score was three score 02/14/2021 Medical Established Patient with Peggy Thrasher FR[employer]TER 02/14/2021 Last Documented On 1 1:16PM ; [facility] Diarrhea Medical Established Patient with Peggy Thrasher [facility] 02/14/2021 Last Documented On 1 1:16PM ; [facility] Nicotine dependence Medical Established Patient with Peggy Thrasher [facility] 02/14/2021 Last Documented On 1 1:16PM ; [facility] Z68.28 - Body mass index [BM I] 28.0-28.9, adult Medical Established Patient with Peggy Thrasher [facility] 02/14/2021 Last Documented On 1 1:16PM ; [facility] Cough Telemedicine Establisted Patient with Traci Dennison [facility] 01/01/2021 Last Documented On 1 6:31PM ; [facility] Fever Telemedicine Establisted Patient with Traci Dennison [facility] 01/01/2021 Last Documented On 1 6:31PM ; [facility] Z20.822 - Contact with and (suspected) exposure to COVID-19 Telemedicine Establisted Patient with Traci Dennison [facility] 01/01/2021 Last Documented On 1 6:31PM ; [facility] Bipolar I disorder, most rec ent episode, depressed Established Patient with Farrahmatthew Klinemons LPCC-S 06/03/2020 Last Documented On 1 10:50PM ; [facility] Paranoid schizophrenia per p atient report Established Patient with Farrah Jarrett LPCC-S 06/03/2020 Last Documented On 1 10:50PM ; [facility] Post-traumatic stress disord er per patient report Established Patient with Farrah Jarrett LPCC-S 06/03/2020 Last Documented On 1 10:50PM ; [facility] 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 Patient with Traci Dennison [facility] 06/03/2020 Last Documented On 1 8:25AM ; [facility] Overweight Medical Established Patient with Traci Dennison [facility] 06/03/2020 Last Documented On 1 8:25AM ; [facility] Z68.29 - Body mass index [BM I] 29.0-29.9, adult Medical Established Patient with Traci Dennison [employer] 06/03/2020 Last Documented On 1 8:25AM ; [facility] Anxiety disorder NOS Medical Established Patient with Traci Dennison [employer] 01/26/2020 Last Documented On 0 7:37PM ; [facility] Bipolar disorder NOS Medical Established Patient with Traci Dennison [employer] 01/26/2020 Last Documented On 0 7:37PM ; [facility] Infection of tooth Medical Established Patient w ith Traci Dennison [facility] 01/26/2020 Last Documented On 0 7:37PM ; [facility] Z68.20 - Body mass index [BM I] 20.0-20.9, adult Medical Established Patient with Traci Dennison [employer] 01/26/2020 Last Documented On 0 7:37PM ; [facility] Bipolar I disorder, most rec ent episode, mixed Established Patient with Hannah Short LISWS 01/08/2020 Last Documented On 0 11:49AM ; [facility] Generalized anxiety disorder Establis hed Patient with Hannah Short LISWS 01/08/2020 Last Documented On 0 11:49AM ; [facility] Diabetes Risk Test Score was one score 01/08/2020 Medical Established Patient with Peggyisis Leoen [employer] 01/08/2020 Last Documented On 0 1:42PM ; [facility] Overweight Medical Established Patient with Peggy Anna Marie [employer] 01/08/2020 Last Documented On 0 1:42PM ; [facility] Z68.27 - Body mass index (BM I) 27.0-27.9, adult Medical Established Patient with Peggy Anna Marie [employer] 01/08/2020 Last Documented On 0 1:42PM ; [facility] Bipolar I disorder, most rec ent episode, mixed Established Patient with Hannah Short LISWS 12/25/2019 Last Documented On 0 6:16PM ; [facility] Generalized anxiety disorder BH Establis hed Patient with Hannah Short LISWS 12/25/2019 Last Documented On 0 6:16PM ; [facility] Overweight Medical Established Patient with Peggy Thrasher [employer] 12/25/2019 Last Documented On 0 1:54PM ; [facility] Z68.26 - Body mass index (BM I) 26.0-26.9, adult Medical Established Patient with Peggy Thrasher FR[employer]TER 12/25/2019 Last Documented On 0 1:54PM ; [facility] Work Phone: 1(770) 291-999811-10-2023 Evaluation note Includes: Assessments for all patient encounters Findings Encounter Date Anxiety disorder NOS Established Patient with Lea Stone HEEL BREASTER-S 02/19/2023 Last Documented On 3 4:27PM ; [facility] Bipolar schizoaffective disorder Esta blished Patient with Lea Stone HEEL BREASTER-S 02/19/2023 Last Documented On 3 4:27PM ; [facility] Nicotine dependence Established Patient with Lea Stone HEEL BREASTER-S 02/19/2023 Last Documented On 3 4:27PM ; [facility] Assessment of body mass index Open Acces s - Established with Srinivasa Ed FRUIT PITTER 02/19/2023 Last Documented On 3 9:22PM ; [facility] [Body mass index [BMI] 33.0- 33.9, adult] assessment of body mass index Medical Established Patient with Srinivasa Ed [facility] 02/05/2023 Last Documented On 3 3:48PM ; [facility] Anxiety disorder NOS Medical Established Patient with Srinivasa Ed [employer] 02/05/2023 Last Documented On 3 3:48PM ; [facility] Body mass index Medical Established Patient with Srinivasa Ed [employer] 01/28/2023 Last Documented On 3 8:31PM ; [facility] [Body mass index [BMI] 32.0- 32.9, adult] assessment of body mass index Medical Established Patient with Srinivasa Ed [employer]TER 12/31/2022 Last Documented On 3 5:25AM ; [facility] Uncomplicated mild persistent asthma Med ical Established Patient with Srinivasa Ed [employer] P[employer]TER 12/31/2022 Last Documented On 3 5:25AM ; [facility] [Body mass index [BMI] 33.0- 33.9, adult] assessment of body mass index Medical Established Patient with Srinivasa Jhaveri [employer] [facility] 11/30/2022 Last Documented On 3 12:28PM ; [facility] Anxiety disorder NOS Medical Established Patient with Srinivasa Boyceer [employer] [facility] 11/30/2022 Last Documented On 3 12:28PM ; [facility] Diabetes Risk Test Score was four score 11/30/2022 Medical Established Patient with Srinivasa Ed [employer] PITTER 11/30/2022 Last Documented On 3 12:28PM ; [facility] Uncomplicated mild persistent asthma Med ical Established Patient with Srinivasa Jhaveri [employer] 11/30/2022 Last Documented On 3 12:28PM ; [facility] Visit for: routine adult H&P with abnormal findings Medical Established Patient with Srinivasa Jhaveri [employer] 11/30/2022 Last Documented On 3 12:28PM ; [facility] [Body mass index [BMI] 30.0- 30.9, adult] assessment of body mass index Medical Established Patient with Srinivasa Jhaveri [employer] [facility] 01/22/2022 Last Documented On 2 6:17PM ; [facility] Dysuria Medical Established Patient with Srinivasa Boyceer [employer] [facility] 01/22/2022 Last Documented On 2 6:17PM ; [facility] Bipolar schizoaffective disorder BH Esta blished Patient with Ina Díaz LPCC-S 12/11/2021 Last Documented On 2 2:31PM ; [facility] Assessment of body mass inde x [Body mass index [BMI] 26.0-26.9, adult] Medical Established Patient with Srinivasa Jhaveri [employer] [facility] 12/11/2021 Last Documented On 2 12:34PM ; [facility] Bipolar schizoaffective disorder BH Esta blished Patient with Ina Díaz LPCC-S 11/25/2021 Last Documented On 2 1:25PM ; [facility] Anxiety disorder NOS Medical Established Patient with Traci Juma [employer] [facility] 11/25/2021 Last Documented On 2 3:06PM ; [facility] Urinary tract infection Medical Establis hed Patient with Traci Juma [employer] [facility] 11/25/2021 Last Documented On 2 3:06PM ; [facility] Z68.27 - Body mass index [BM I] 27.0-27.9, adult Medical Established Patient with Traci Juma [employer] [facility] 11/25/2021 Last Documented On 2 3:06PM ; [facility] Anxiety disorder NOS Medical Established Patient with Traci Juma [employer] 08/13/2021 Last Documented On 2 8:18AM ; [facility] Assessment of body mass index Medical Es tablished Patient with Traci Juma [employer] 08/13/2021 Last Documented On 2 8:18AM ; [facility] Chronic gastritis without hemorrhage Med ical Established Patient with Traci Juma [employer] 08/13/2021 Last Documented On 2 8:18AM ; [facility] Diverticulosis of intestine Medical Esta blished Patient with Traci Juma [employer] 08/13/2021 Last Documented On 2 8:18AM ; [facility] Urinary tract infection Medical Establis hed Patient with Traci Juma [employer] 08/13/2021 Last Documented On 2 8:18AM ; [facility] Anxiety disorder NOS Medical Established Patient with Traci Juma [employer] 07/17/2021 Last Documented On 2 8:10AM ; [facility] Other hypothyroidism Medical Established Patient with Traci Juma [employer] 07/17/2021 Last Documented On 2 8:10AM ; [facility] Upper respiratory infection Medical Esta blished Patient with Traci Juma [employer] 07/17/2021 Last Documented On 2 8:10AM ; [facility] Visit for: routine adult H&P with abnormal findings Medical Established Patient with Traci Juma [employer] 07/17/2021 Last Documented On 2 8:10AM ; [facility] Visit for: screening for lip oid disorders Medical Established Patient with Traci Juma [employer] 07/17/2021 Last Documented On 2 8:10AM ; [facility] Vitamin B12 deficiency Medical Establish ed Patient with Traci Dennison [employer] [facility] 07/17/2021 Last Documented On 2 8:10AM ; [facility] Vitamin D deficiency Medical Established Patient with Traci Dennison [employer] [facility] 07/17/2021 Last Documented On 2 8:10AM ; [facility] Z68.28 - Body mass index [BM I] 28.0-28.9, adult Medical Established Patient with Traci Dennison [employer] 07/17/2021 Last Documented On 2 8:10AM ; [facility] Allergic rhinitis Telemedicine Establi sted Patient with Traci Dennison [facility] [facility] 07/16/2021 Last Documented On 2 8:23AM ; [facility] Exposure to COVID-19 Telemedicine Establ isted Patient with Traci Dennison [employer] [facility] 04/29/2021 Last Documented On 2 8:02PM ; [facility] Bipolar schizoaffective disorder BH Esta blished Patient with Farrah Jarrett LPCC-S 04/15/2021 Last Documented On 2 1:07PM ; [facility] Anxiety disorder NOS Medical Established Patient with Traci Dennison [employer] 04/15/2021 Last Documented On 2 9:06AM ; [facility] Assessment of body mass index Medical Es tablished Patient with Traci Dennison [employer] 04/15/2021 Last Documented On 2 9:06AM ; [facility] Bipolar disorder NOS Medical Established Patient with Traci Dennison [employer] 04/15/2021 Last Documented On 2 9:06AM ; [facility] Anxiety disorder NOS Telebehavioral H ealth with Farrah Jarrett LPCC-S 04/09/2021 Last Documented On 2 9:05AM ; [facility] Bipolar disorder NOS BH Telebehavioral H ealth with Farrah Jarrett LPCC-S 04/09/2021 Last Documented On 2 9:05AM ; [facility] Anxiety disorder NOS BH Established Patient with Hannah Short LISWS 04/03/2021 Last Documented On 1 7:15PM ; [facility] Bipolar I disorder, most rec ent episode, depressed Established Patient with Hannah Short LISWS 04/03/2021 Last Documented On 1 7:15PM ; [facility] Nicotine dependence Established Patient with Hannah Short LISWS 04/03/2021 Last Documented On 1 7:15PM ; [facility] Nicotine dependence Established Patient with Hannah Short LISWS 04/03/2021 Last Documented On 1 7:15PM ; [facility] Undifferentiated schizophren ia per patient reported history Established Patient with Hannah Short LISWS 04/03/2021 Last Documented On 1 7:15PM ; [facility] A home test was negative Medic al Established Patient with Traci Dennison [employer] [facility] 04/03/2021 Last Documented On 1 8:11PM ; [facility] Assessment of body mass index Medical Es tablished Patient with Traci Dennison [employer] 04/03/2021 Last Documented On 1 8:11PM ; [facility] Patient with Traci Dennison [employer] 04/03/2021 Last Documented On 1 8:11PM ; [facility] Mixed affective bipolar diso rder, moderate Medical Established Patient with Traci Dennison [employer] 04/03/2021 Last Documented On 1 8:11PM ; [facility] Urinary tract infection Medical Establis hed Patient with Traci Dennison [facility] 04/03/2021 Last Documented On 1 8:11PM ; [facility] Visit for: screening for STD Medical Est ablished Patient with Traci Dennison [employer] [facility] 04/03/2021 Last Documented On 1 8:11PM ; [facility] Assessment of visit for: scr eening for human immunodeficiency virus Medical Established Patient with Peggyisis Thrasher [facility] [facility] 02/14/2021 Last Documented On 1 1:16PM ; [facility] Diabetes Risk Test Score was three score 02/14/2021 Medical Established Patient with Peggy Thrasher [facility] 02/14/2021 Last Documented On 1 1:16PM ; [facility] Diarrhea Medical Established Patient with Peggy Thrasher [facility] [facility] 02/14/2021 Last Documented On 1 1:16PM ; [facility] Nicotine dependence Medical Established Patient with Peggy Thrasher [facility] 02/14/2021 Last Documented On 1 1:16PM ; [facility] Z68.28 - Body mass index [BM I] 28.0-28.9, adult Medical Established Patient with Peggy Thrasher [facility] [facility] 02/14/2021 Last Documented On 1 1:16PM ; [facility] Cough Telemedicine Establisted Patient with Traci Dennison [facility] 01/01/2021 Last Documented On 1 6:31PM ; [facility] Fever Telemedicine Establisted Patient with Traci Dennison [facility] 01/01/2021 Last Documented On 1 6:31PM ; [facility] Z20.822 - Contact with and (suspected) exposure to COVID-19 Telemedicine Establisted Patient with Traci Dennison [facility] 01/01/2021 Last Documented On 1 6:31PM ; [facility] Bipolar I disorder, most rec ent episode, depressed Established Patient with Farrahmatthew Klinemons LPCC-S 06/03/2020 Last Documented On 1 10:50PM ; [facility] Paranoid schizophrenia per p atient report Established Patient with Farrah Jarrett LPCC-S 06/03/2020 Last Documented On 1 10:50PM ; [facility] Post-traumatic stress disord er per patient report Established Patient with Farrahmatthew Hernandezs LPCC-S 06/03/2020 Last Documented On 1 10:50PM ; [facility] 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 Patient with Traci Dennison [facility] 06/03/2020 Last Documented On 1 8:25AM ; [facility] Overweight Medical Established Patient with Traci Dennison [facility] 06/03/2020 Last Documented On 1 8:25AM ; [facility] Z68.29 - Body mass index [BM I] 29.0-29.9, adult Medical Established Patient with Traci Dennison [employer] [facility] 06/03/2020 Last Documented On 1 8:25AM ; [facility] Anxiety disorder NOS Medical Established Patient with Traci Dennison [employer] 01/26/2020 Last Documented On 0 7:37PM ; [facility] Bipolar disorder NOS Medical Established Patient with Traci Dennison [employer] 01/26/2020 Last Documented On 0 7:37PM ; [facility] Infection of tooth Medical Established Patient w ith Traci Dennison [facility] [facility] 01/26/2020 Last Documented On 0 7:37PM ; [facility] Z68.20 - Body mass index [BM I] 20.0-20.9, adult Medical Established Patient with Traci Dennison [employer] 01/26/2020 Last Documented On 0 7:37PM ; [facility] Bipolar I disorder, most rec ent episode, mixed Established Patient with Hannah Short LISWS 01/08/2020 Last Documented On 0 11:49AM ; [facility] Generalized anxiety disorder Establis hed Patient with Hannah Short LISWS 01/08/2020 Last Documented On 0 11:49AM ; [facility] Diabetes Risk Test Score was one score 01/08/2020 Medical Established Patient with Peggy Anna Marie [facility] 01/08/2020 Last Documented On 0 1:42PM ; [facility] Overweight Medical Established Patient with Peggy Anna Marie [facility] [facility] 01/08/2020 Last Documented On 0 1:42PM ; [facility] Z68.27 - Body mass index (BM I) 27.0-27.9, adult Medical Established Patient with Peggy Anna Marie [facility] [facility] 01/08/2020 Last Documented On 0 1:42PM ; [facility] Bipolar I disorder, most rec ent episode, mixed Established Patient with Hannah Short LISWS 12/25/2019 Last Documented On 0 6:16PM ; [facility] Generalized anxiety disorder BH Establis hed Patient with Hannah Short LISWS 12/25/2019 Last Documented On 0 6:16PM ; [facility] Overweight Medical Established Patient with Peggy Anna Marie [facility] [facility] 12/25/2019 Last Documented On 0 1:54PM ; [facility] Z68.26 - Body mass index (BM I) 26.0-26.9, adult Medical Established Patient with Peggy Thrasher [facility] [facility] 12/25/2019 Last Documented On 0 1:54PM ; [facility] Work Phone: 1(955) 577-359611-10-2023 Progress note* Progress note Date Encounter Last Documented by 02/19/2023 Open Access - Established Last d ocumented on 02/19/2023; 12:18 PM, Srinivasa Jhaveri FR[employer]TER; [facility] Active Problems & Conditions - F41.9 [...] 02/19/2023 10:15 am BP-Sitting L114/82 mmHg Pulse Rate-Qjziboz02 bpm Temp-Oral98.8 F Thmzra83 in Jhoeqz481 lbs 9.6 oz Body Mass Index33.2 kg/m2 Body Surface Area1.7 m2 Oxygen Qnywkfzwml51 % Vital Signs: - Systolic blood pressure [...] Leukocyte Estrase Negative, and Blood Negative. Specific [place] 1.020 and pH 7.5. Urine clarity Clear [...] + 0 pt : Not at all. [facility]11-10-2023 Progress note* Progress note Date Encounter Last Documented by 02/19/2023 Established Patient Last docu mented on 02/20/2023; 4:27 PM, Lea NATHAN; [facility] Active Problems & Conditions - F41.9 [...] - - Progress: PHQ is 4 Subjective P met with patient to discuss mood, medications, [...] willing to accept community resources from health motor coach supervisor today. Patient denies any other concerns today [...] to stop smoking Discussed Quit Line resources [facility] offered active and supportive listening, normalized emotions and feelings, and processed current stressors. [facility] empathized with patient regarding her current stressors and encouraged patient to continue to advocate for herself. Patient was receptive. Plan - External referral/Resources provided: Financial and food resources. Continue to take medication(s) as prescribed. [facility] to follow-up with patient at next visit as scheduled. . Advance Directives - Living Will - Declined to Provide Advance Directive Health Reminders - Assess Tobacco Use satisfied 02/19/2023. - Smoking & Tobacco Cessation Intervention and Counseling satisfied 02/19/2023. [facility]11-10-2023 Progress note* Progress note Date Encounter Last Documented by 02/19/2023 Open Access - Established Last d ocumented on 02/21/2023; 9:22 PM, Srinivasa Jhaveri CNP; [facility] Active Problems & Conditions - F41.9 [...] 02/19/2023 10:15 am BP-Sitting L114/82 mmHg Pulse Rate-Nndnnkh76 bpm Temp-Oral98.8 F Uywmlv69 in Yrcmfj877 lbs 9.6 oz Body Mass Index33.2 kg/m2 Body Surface Area1.7 m2 Oxygen Mcqgvkysbi01 % Vital Signs: - Systolic blood pressure [...] Leukocyte Estrase Negative, and Blood Negative. Specific [place] 1.020 and pH 7.5. Urine clarity Clear [...] + 0 pt : Not at all. [facility]11-10-2023 Reason for referral (narrative)* Date Encounter Description Provider Reason for Referral 02/19/23 Established Patient Lea DALTONW- S External referral/Resources provided - : Financial and food resources. ~ 11/25/21 Medical Established Patient Traci Winreyes bruno [facility] Referral To Mental Health Team 07/17/21 Medical Established Patient Traci Pérez damion [facility] [facility] Referral To Mental Health Team 06/03/20 Established Patient Farrah Jarrett LPCC-S Referral To Mental Health Team - [facility] conducted screen and discussed patient's responses w/her. [facility] Work Phone: [phone]) 195-395411-10-2023 Instructions Includes: Instructions for all patient encounters Instructions to patient Intervention and counseling on cessation of tobacco use, 3-10 minutes Last Documented On 0 1:15PM ; [facility] Education and Decision Aids were provided during visit for: Discussed nutritional needs teach healthy choices including fruits and vegetables Last Documented On 3 10:19AM ; [facility] Patient education about a pr oper diet Last Documented On 3 10:19AM ; [facility] Discussed concerns about exe rcise : promote physical activity ~ ~Will do vaginal swab to check for yeast infection ~ ~Encouraged to follow up with OBGYN ~ ~Number given to surgeon that GI referred her to, call number and schedule appt ~ ~Follow up at next scheduled appt Last Documented On 3 12:18PM ; [facility] Not requesting contraception Last Documented On 3 10:23AM ; [facility] Discussed nutritional needs teach healthy choices including fruits and vegetables Last Documented On 3 10:48AM ; [facility] Patient education about a pr oper diet Last Documented On 3 10:48AM ; [facility] Discussed concerns about exe rcise : promote physical activity ~ ~Will give augmentin to cover sinuses and urinary tract ~ ~Will send out urine ~ ~Will give steriod due to patients lung sounds ~ ~Will increase symbicort ~ ~Follow up in one month Last Documented On 3 3:48PM ; [facility] Not requesting contraception Last Documented On 3 10:50AM ; [facility] Discussed nutritional needs teach healthy choices including fruits and vegetables Last Documented On 3 11:01AM ; [facility] Patient education about a pr oper diet Last Documented On 3 11:01AM ; [facility] Discussed concerns about exe rcise : promote physical activity ~ ~Follow up after ER visit Last Documented On 3 8:31PM ; [facility] Not requesting contraception Last Documented On 3 11:03AM ; [facility] Discussed nutritional needs teach healthy choices including fruits and vegetables Last Documented On 3 12:03PM ; [facility] Patient education about a pr oper diet Last Documented On 3 12:03PM ; [facility] Discussed concerns about exe rcise : promote physical activity ~ ~Will keep medication the same Last Documented On 3 4:46AM ; [facility] Not requesting contraception Last Documented On 3 12:04PM ; [facility] Discussed nutritional needs teach healthy choices including fruits and vegetables Last Documented On 3 9:09AM ; [facility] Patient education about a pr oper diet Last Documented On 3 9:09AM ; [facility] Patient education about an a sthma action plan Last Documented On 3 9:44AM ; [facility] Discussed concerns about exe rcise : promote physical activity ~ ~Will restart symbicort ~ ~Follow up in one month for asthma Last Documented On 3 12:28PM ; [facility] Discussed nutritional needs teach healthy choices including fruits and vegetables Last Documented On 2 10:58AM ; [facility] Patient education about a pr oper diet Last Documented On 2 10:58AM ; [facility] Discussed concerns about exe rcise : promote physical activity Last Documented On 2 10:58AM ; [facility] Discussed nutritional needs teach healthy choices including fruits and vegetables Last Documented On 2 11:41AM ; [facility] Patient education about a pr oper diet Last Documented On 2 11:41AM ; [facility] Discussed concerns about exe rcise : promote physical activity Last Documented On 2 11:41AM ; [facility] offered active listening and supportive feedback; normalized emotions and feelings, also provided pt time to process any current stressors ~P discussed benefits of counseling and supported pt in following through with scheduled appt. ~P encouraged pt to continue to make time to implement self-care regimen to assist in improving their mood Last Documented On 2 2:29PM ; [facility] Provided supportive listenin g and reflective feedback; monitored mood, explored symptoms, assessed functioning. ~Discussed medication use/compliance. ~Promoted use of healthy coping mechanisms and positive support, as needed Last Documented On 2 1:25PM ; [facility] Discussed nutritional needs teach healthy choices including fruits and vegetables Last Documented On 2 12:54PM ; [facility] Patient education about a pr oper diet Last Documented On 2 12:54PM ; [facility] Discussed concerns about exe rcise : promote physical activity Last Documented On 2 12:54PM ; [facility] Discussed nutritional needs teach healthy choices including fruits and vegetables Last Documented On 2 11:39AM ; [facility] Patient education about a pr oper diet Last Documented On 2 11:39AM ; [facility] Discussed concerns about exe rcise : promote physical activity Last Documented On 2 11:39AM ; [facility] Discussed nutritional needs teach healthy choices including fruits and vegetables Last Documented On 2 10:29AM ; [facility] Patient education about a pr oper diet Last Documented On 2 10:29AM ; [facility] Discussed concerns about exe rcise : promote physical activity Last Documented On 2 10:29AM ; [facility] Discussed current self-care methods/coping skills. ~Validated and normalized patient's feelings while assisting process recent events. ~Discussed ongoing counseling. ~Discussed lifestyle changes to address chronic illness. ~Supported patient's personal health goals Last Documented On 2 8:50PM ; [facility] Discussed nutritional needs teach healthy choices including fruits and vegetables Last Documented On 2 11:15AM ; [facility] Patient education about a pr oper diet Last Documented On 2 11:15AM ; [facility] Discussed concerns about exe rcise : promote physical activity Last Documented On 2 11:15AM ; [facility] Discussed current self-care methods/coping skills. ~Validated and normalized patient's feelings while assisting process recent events. ~Discussed ongoing mental health services. ~Discussed lifestyle changes to address chronic illness. ~Supported patient's personal health goals. ~ ~Reports feeling better since beginning new meds. Also voices and visual hallucinations have stopped; reports voices were not commanfing Last Documented On 2 8:54PM ; [facility] offered active and suppo rtive [...] significant others Mom or go to her [facility] house. ~[facility] and PCP discussed plan to follow-up with psychiatry and counseling and a new referral being sent to [facility]. If patient is not accepted back as a patient with Dr. Dickerson, will look into other resources Last Documented On 1 7:15PM ; [facility] Discussed nutritional needs teach healthy choices including fruits and vegetables Last Documented On 1 1:18PM ; [facility] Patient education about a pr oper diet Last Documented On 1 1:18PM ; [facility] Discussed concerns about exe rcise : promote physical activity Last Documented On 1 1:18PM ; [facility] Discussed nutritional needs teach healthy choices including fruits and vegetables Last Documented On 1 10:37AM ; [facility] Patient education about a pr oper diet Last Documented On 1 10:37AM ; [facility] Discussed concerns about exe rcise : promote physical activity Last Documented On 1 10:37AM ; [facility] Explored current symptoms an d stressors. Educaated patient re importance of counseling and provided brief review of EMDR treatment. ~Encouraged patient to engage in ongoing counseling. ~ Last Documented On 1 10:50PM ; [facility] Discussed nutritional needs teach healthy choices including fruits and vegetables Last Documented On 1 6:53PM ; [facility] Patient education about a pr oper diet Last Documented On 1 6:53PM ; [facility] Discussed concerns about exe rcise : promote physical activity Last Documented On 1 6:53PM ; [facility] provided active listenin g, support and helped patient process through current symptoms and stressors related to mood and irritability. ~[facility] discussed coping skills that patient has tried as well as discussed potential benefit of counseling. ~ ~ Last Documented On 0 11:49AM ; [facility] Discussed nutritional needs teach healthy choices including fruits and vegetables Last Documented On 0 1:15PM ; [facility] Patient education about a pr oper diet Last Documented On 0 1:15PM ; [facility] Patient education about a pr oper diet Last Documented On 0 1:33PM ; [facility] Patient education about meal planning Last Documented On 0 1:33PM ; [facility] Education about changing eat ing habits Last Documented On 0 1:33PM ; [facility] Patient education about high fiber diet Last Documented On 0 1:33PM ; [facility] Patient education about low fat diet Last Documented On 0 1:33PM ; [facility] Patient education about low cholesterol diet Last Documented On 0 1:33PM ; [facility] Patient education about low carbohydrate diet Last Documented On 0 1:33PM ; [facility] Patient education about high protein diet Last Documented On 0 1:33PM ; [facility] Discussed concerns about exe rcise : promote physical activity Last Documented On 0 1:15PM ; [facility] provided active listenin g, support and helped patient process through current symptoms and stressors due to pain, loss of work and low frustration tolerance. ~P discussed coping skills and supports that patient can implement inclduing meditation, mindfulness, and deep breathing activities. [facility] provided resources to patient to work on implementing. ~[facility] discussed with patient re-establishing care for therapy and provided patient with resource list. ~ Last Documented On 0 6:15PM ; [facility] Discussed nutritional needs teach healthy choices including fruits and vegetables Last Documented On 0 1:12PM ; [facility] Patient education about a pr oper diet Last Documented On 0 1:12PM ; [facility] Patient education about a pr oper diet Last Documented On 0 1:46PM ; [facility] Patient education about meal planning Last Documented On 0 1:46PM ; [facility] Education about changing eat ing habits Last Documented On 0 1:46PM ; [facility] Patient education about high fiber diet Last Documented On 0 1:46PM ; [facility] Patient education about low fat diet Last Documented On 0 1:46PM ; [facility] Patient education about low cholesterol diet Last Documented On 0 1:46PM ; [facility] Patient education about low carbohydrate diet Last Documented On 0 1:46PM ; [facility] Patient education about high protein diet Last Documented On 0 1:46PM ; [facility] Discussed concerns about exe rcise : promote physical activity Last Documented On 0 1:12PM ; [facility] Work Phone: [phone]) 916-494110-27-2023 Evaluation note Includes: Assessments for all patient encounters Findings Encounter Date [Body mass index [BMI] 33.0- 33.9, adult] assessment of body mass index Medical Established Patient with Srinivasa Boyceer [facility] 02/05/2023 Last Documented On 3 3:48PM ; [facility] Anxiety disorder NOS Medical Established Patient with Srinivasa Ed [facility] 02/05/2023 Last Documented On 3 3:48PM ; [facility] Body mass index Medical Established Patient with Srinivasa Boyceer [facility] 01/28/2023 Last Documented On 3 8:31PM ; [facility] [Body mass index [BMI] 32.0- 32.9, adult] assessment of body mass index Medical Established Patient with Srinivasa Ed [facility] 12/31/2022 Last Documented On 3 5:25AM ; [facility] Uncomplicated mild persistent asthma Med ical Established Patient with Srinivasa Ed [facility] 12/31/2022 Last Documented On 3 5:25AM ; [facility] [Body mass index [BMI] 33.0- 33.9, adult] assessment of body mass index Medical Established Patient with Srinivasa Ed [facility] 11/30/2022 Last Documented On 3 12:28PM ; [facility] Anxiety disorder NOS Medical Established Patient with Srinivasa Ed [facility] 11/30/2022 Last Documented On 3 12:28PM ; [facility] Diabetes Risk Test Score was four score 11/30/2022 Medical Established Patient with Srinivasa Ed [facility] 11/30/2022 Last Documented On 3 12:28PM ; [facility] Uncomplicated mild persistent asthma Med ical Established Patient with Srinivasa Ed [facility] 11/30/2022 Last Documented On 3 12:28PM ; [facility] Visit for: routine adult H&P with abnormal findings Medical Established Patient with Srinivasa Ed [facility] 11/30/2022 Last Documented On 3 12:28PM ; [facility] [Body mass index [BMI] 30.0- 30.9, adult] assessment of body mass index Medical Established Patient with Srinivasa Ed [facility] 01/22/2022 Last Documented On 2 6:17PM ; [facility] Dysuria Medical Established Patient with Srinivasa Ed [facility] 01/22/2022 Last Documented On 2 6:17PM ; [facility] Bipolar schizoaffective disorder BH Esta blished Patient with Ina Díaz [facility] 12/11/2021 Last Documented On 2 2:31PM ; [facility] Assessment of body mass inde x [Body mass index [BMI] 26.0-26.9, adult] Medical Established Patient with Srinivasa Ed [facility] 12/11/2021 Last Documented On 2 12:34PM ; [facility] Bipolar schizoaffective disorder BH Esta blished Patient with Ina Díaz [facility] 11/25/2021 Last Documented On 2 1:25PM ; [facility] Anxiety disorder NOS Medical Established Patient with Traci Juma [facility] 11/25/2021 Last Documented On 2 3:06PM ; [facility] Urinary tract infection Medical Establis hed Patient with Traci Juma [facility] 11/25/2021 Last Documented On 2 3:06PM ; [facility] Z68.27 - Body mass index [BM I] 27.0-27.9, adult Medical Established Patient with Traci Juma [facility] 11/25/2021 Last Documented On 2 3:06PM ; [facility] Anxiety disorder NOS Medical Established Patient with Traci Juma [facility] 08/13/2021 Last Documented On 2 8:18AM ; [facility] Assessment of body mass index Medical Es tablished Patient with Traci Juma [facility] 08/13/2021 Last Documented On 2 8:18AM ; [facility] Chronic gastritis without hemorrhage Med ical Established Patient with Traci Juma [facility] 08/13/2021 Last Documented On 2 8:18AM ; [facility] Diverticulosis of intestine Medical Esta blished Patient with Traci Juma [facility] 08/13/2021 Last Documented On 2 8:18AM ; [facility] Urinary tract infection Medical Establis hed Patient with Traci Juma [facility] 08/13/2021 Last Documented On 2 8:18AM ; [facility] Anxiety disorder NOS Medical Established Patient with Traci Juma [facility] 07/17/2021 Last Documented On 2 8:10AM ; [facility] Other hypothyroidism Medical Established Patient with Traci Juma [facility] 07/17/2021 Last Documented On 2 8:10AM ; [facility] Upper respiratory infection Medical Esta blished Patient with Traci Juma [facility] 07/17/2021 Last Documented On 2 8:10AM ; [facility] Visit for: routine adult H&P with abnormal findings Medical Established Patient with Traci Dennison [facility] 07/17/2021 Last Documented On 2 8:10AM ; [facility] Visit for: screening for lip oid disorders Medical Established Patient with Traci Dennison [facility] 07/17/2021 Last Documented On 2 8:10AM ; [facility] Vitamin B12 deficiency Medical Establish ed Patient with Traci Dennison [facility] 07/17/2021 Last Documented On 2 8:10AM ; [facility] Vitamin D deficiency Medical Established Patient with Traci Dennison [facility] 07/17/2021 Last Documented On 2 8:10AM ; [facility] Z68.28 - Body mass index [BM I] 28.0-28.9, adult Medical Established Patient with Traci Dennison [facility] 07/17/2021 Last Documented On 2 8:10AM ; [facility] Allergic rhinitis Telemedicine Establi sted Patient with Traci Dennison [facility] 07/16/2021 Last Documented On 2 8:23AM ; [facility] Exposure to COVID-19 Telemedicine Establ isted Patient with Traci Dennison [facility] 04/29/2021 Last Documented On 2 8:02PM ; [facility] Bipolar schizoaffective disorder BH Esta blished Patient with Farrah Jarrett [facility] 04/15/2021 Last Documented On 2 1:07PM ; [facility] Anxiety disorder NOS Medical Established Patient with Traci Dennison [facility] 04/15/2021 Last Documented On 2 9:06AM ; [facility] Assessment of body mass index Medical Es tablished Patient with Traci Dennison [facility] 04/15/2021 Last Documented On 2 9:06AM ; [facility] Bipolar disorder NOS Medical Established Patient with Traci Dennison [facility] 04/15/2021 Last Documented On 2 9:06AM ; [facility] Anxiety disorder NOS BH Telebehavioral H ealth with Farrah Jarrett [facility] 04/09/2021 Last Documented On 2 9:05AM ; [facility] Bipolar disorder NOS Telebehavioral H ealth with Farrah Jarrett [facility] 04/09/2021 Last Documented On 2 9:05AM ; [facility] Anxiety disorder NOS Established Patient with Hannah Short [facility] 04/03/2021 Last Documented On 1 7:15PM ; [facility] Bipolar I disorder, most rec ent episode, depressed Established Patient with Hananh Short [facility] 04/03/2021 Last Documented On 1 7:15PM ; [facility] Nicotine dependence Established Patient with Hannah Short [facility] 04/03/2021 Last Documented On 1 7:15PM ; [facility] Nicotine dependence Established Patient with Hannah Short [facility] 04/03/2021 Last Documented On 1 7:15PM ; [facility] Undifferentiated schizophren ia per patient reported history Established Patient with Hannah Short [facility] 04/03/2021 Last Documented On 1 7:15PM ; [facility] A home test was negative Medic al Established Patient with Traci Dennison [facility] 04/03/2021 Last Documented On 1 8:11PM ; [facility] Assessment of body mass index Medical Es tablished Patient with Traci Dennison [facility] 04/03/2021 Last Documented On 1 8:11PM ; [facility] Epilepsy, not intractable, w ithout status epilepticus Medical Established Patient with Traci Dennison [facility] 04/03/2021 Last Documented On 1 8:11PM ; [facility] Mixed affective bipolar diso rder, moderate Medical Established Patient with Traci Dennison [facility] 04/03/2021 Last Documented On 1 8:11PM ; [facility] Urinary tract infection Medical Establis hed Patient with Traci Juma [facility] 04/03/2021 Last Documented On 1 8:11PM ; [facility] Visit for: screening for STD Medical Est ablished Patient with Traci Juma [facility] 04/03/2021 Last Documented On 1 8:11PM ; [facility] Assessment of visit for: lupe starr for human immunodeficiency virus Medical Established Patient with Peggy Thrasher [facility] 02/14/2021 Last Documented On 1 1:16PM ; [facility] Diabetes Risk Test Score was three score 02/14/2021 Medical Established Patient with Peggy Thrasher [facility] 02/14/2021 Last Documented On 1 1:16PM ; [facility] Diarrhea Medical Established Patient with Peggy Thrasher [facility] 02/14/2021 Last Documented On 1 1:16PM ; [facility] Nicotine dependence Medical Established Patient with Peggy Thrasher [facility] 02/14/2021 Last Documented On 1 1:16PM ; [facility] Z68.28 - Body mass index [BM I] 28.0-28.9, adult Medical Established Patient with Peggy Thrasher [facility] 02/14/2021 Last Documented On 1 1:16PM ; [facility] Cough Telemedicine Establisted Patient with Traci Dennison [facility] 01/01/2021 Last Documented On 1 6:31PM ; [facility] Fever Telemedicine Establisted Patient with Traci Dennison [facility] 01/01/2021 Last Documented On 1 6:31PM ; [facility] Z20.822 - Contact with and (suspected) exposure to COVID-19 Telemedicine Establisted Patient with Traci Dennison [facility] 01/01/2021 Last Documented On 1 6:31PM ; [facility] Bipolar I disorder, most rec ent episode, depressed Established Patient with Farrah Hernandezs [facility] 06/03/2020 Last Documented On 1 10:50PM ; [facility] Paranoid schizophrenia per p atient report Established Patient with Farrah Hernandezs [facility] 06/03/2020 Last Documented On 1 10:50PM ; [facility] Post-traumatic stress disord er per patient report Established Patient with Farrah Hernandezs [facility] 06/03/2020 Last Documented On 1 10:50PM ; [facility] 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 Patient with Traci Dennison [facility] 06/03/2020 Last Documented On 1 8:25AM ; [facility] Overweight Medical Established Patient with Traci Dennison [facility] 06/03/2020 Last Documented On 1 8:25AM ; [facility] Z68.29 - Body mass index [BM I] 29.0-29.9, adult Medical Established Patient with Traci Dennison [facility] 06/03/2020 Last Documented On 1 8:25AM ; [facility] Anxiety disorder NOS Medical Established Patient with Traci Dennison [facility] 01/26/2020 Last Documented On 0 7:37PM ; [facility] Bipolar disorder NOS Medical Established Patient with Traci Dennison [facility] 01/26/2020 Last Documented On 0 7:37PM ; [facility] Infection of tooth Medical Established Patient w ith Traci Dennison [facility] 01/26/2020 Last Documented On 0 7:37PM ; [facility] Z68.20 - Body mass index [BM I] 20.0-20.9, adult Medical Established Patient with Traci Dennison [facility] 01/26/2020 Last Documented On 0 7:37PM ; [facility] Bipolar I disorder, most rec ent episode, mixed Established Patient with Hannah Short [facility] 01/08/2020 Last Documented On 0 11:49AM ; [facility] Generalized anxiety disorder Establis hed Patient with Hannah Short [facility] 01/08/2020 Last Documented On 0 11:49AM ; [facility] Diabetes Risk Test Score was one score 01/08/2020 Medical Established Patient with Peggy Thrasher [facility] 01/08/2020 Last Documented On 0 1:42PM ; [facility] Overweight Medical Established Patient with Peggy Anna Marie [facility] 01/08/2020 Last Documented On 0 1:42PM ; [facility] Z68.27 - Body mass index (BM I) 27.0-27.9, adult Medical Established Patient with Peggy Anna Marie [facility] 01/08/2020 Last Documented On 0 1:42PM ; [facility] Bipolar I disorder, most rec ent episode, mixed BH Established Patient with Hannah Short [facility] 12/25/2019 Last Documented On 0 6:16PM ; [facility] Generalized anxiety disorder Establis hed Patient with Hannah Short [facility] 12/25/2019 Last Documented On 0 6:16PM ; [facility] Overweight Medical Established Patient with Peggy Thrasher [facility] 12/25/2019 Last Documented On 0 1:54PM ; [facility] Z68.26 - Body mass index (BM I) 26.0-26.9, adult Medical Established Patient with Peggy Thrasher [facility] 12/25/2019 Last Documented On 0 1:54PM ; [facility] Work Phone: 1(362) 294-433510-27-2023 Progress note* Progress note Date Encounter Last Documented by 02/05/2023 Medical Established Patient Last documented on 02/05/2023; 3:48 PM, Srinivasa Jhaveri [facility]; [facility] Active Problems & Conditions - F41.9 [...] 02/05/2023 10:44 am BP-Sitting L106/71 mmHg Pulse Rate-Pgpnyim31 bpm Temp-Oral98.1 F Haynoo60 in Xyhggu379 lbs Body Mass Index33.1 kg/m2 Body Surface Area1.7 m2 Oxygen Plwvnwiqbu86 % Vital Signs: - Systolic blood pressure [...] vaginitis Outside Labs/Microbiology: All 3 Urine Test Hnergsqru-Gbxtvbvea-Zfeqnmufbfr, Urine Culture & Sensitivity ([id number]) Outside Labs/Microbiology: BD Affirm Diflucan 150 MG [...] Will - Declined to Provide Advance Directive [facility]10-27-2023 Instructions Includes: Instructions for all patient encounters Instructions to patient Intervention and counseling on cessation of tobacco use, 3-10 minutes Last Documented On 0 1:15PM ; [facility] Education and Decision Aids were provided during visit for: Discussed nutritional needs teach healthy choices including fruits and vegetables Last Documented On 3 10:48AM ; [facility] Patient education about a pr oper diet Last Documented On 3 10:48AM ; [facility] Discussed concerns about exe rcise : promote physical activity ~ ~Will give augmentin to cover sinuses and urinary tract ~ ~Will send out urine ~ ~Will give steriod due to patients lung sounds ~ ~Will increase symbicort ~ ~Follow up in one month Last Documented On 3 3:48PM ; [facility] Not requesting contraception Last Documented On 3 10:50AM ; [facility] Discussed nutritional needs teach healthy choices including fruits and vegetables Last Documented On 3 11:01AM ; [facility] Patient education about a pr oper diet Last Documented On 3 11:01AM ; [facility] Discussed concerns about exe rcise : promote physical activity ~ ~Follow up after ER visit Last Documented On 3 8:31PM ; [facility] Not requesting contraception Last Documented On 3 11:03AM ; [facility] Discussed nutritional needs teach healthy choices including fruits and vegetables Last Documented On 3 12:03PM ; [facility] Patient education about a pr oper diet Last Documented On 3 12:03PM ; [facility] Discussed concerns about exe rcise : promote physical activity ~ ~Will keep medication the same Last Documented On 3 4:46AM ; [facility] Not requesting contraception Last Documented On 3 12:04PM ; [facility] Discussed nutritional needs teach healthy choices including fruits and vegetables Last Documented On 3 9:09AM ; [facility] Patient education about a pr oper diet Last Documented On 3 9:09AM ; [facility] Patient education about an a sthma action plan Last Documented On 3 9:44AM ; [facility] Discussed concerns about exe rcise : promote physical activity ~ ~Will restart symbicort ~ ~Follow up in one month for asthma Last Documented On 3 12:28PM ; [facility] Discussed nutritional needs teach healthy choices including fruits and vegetables Last Documented On 2 10:58AM ; [facility] Patient education about a pr oper diet Last Documented On 2 10:58AM ; [facility] Discussed concerns about exe rcise : promote physical activity Last Documented On 2 10:58AM ; [facility] Discussed nutritional needs teach healthy choices including fruits and vegetables Last Documented On 2 11:41AM ; [facility] Patient education about a pr oper diet Last Documented On 2 11:41AM ; [facility] Discussed concerns about exe rcise : promote physical activity Last Documented On 2 11:41AM ; [facility] offered active listening and supportive feedback; normalized emotions and feelings, also provided pt time to process any current stressors ~P discussed benefits of counseling and supported pt in following through with scheduled appt. ~P encouraged pt to continue to make time to implement self-care regimen to assist in improving their mood Last Documented On 2 2:29PM ; [facility] Provided supportive listenin g and reflective feedback; monitored mood, explored symptoms, assessed functioning. ~Discussed medication use/compliance. ~Promoted use of healthy coping mechanisms and positive support, as needed Last Documented On 2 1:25PM ; [facility] Discussed nutritional needs teach healthy choices including fruits and vegetables Last Documented On 2 12:54PM ; [facility] Patient education about a pr oper diet Last Documented On 2 12:54PM ; [facility] Discussed concerns about exe rcise : promote physical activity Last Documented On 2 12:54PM ; [facility] Discussed nutritional needs teach healthy choices including fruits and vegetables Last Documented On 2 11:39AM ; [facility] Patient education about a pr oper diet Last Documented On 2 11:39AM ; [facility] Discussed concerns about exe rcise : promote physical activity Last Documented On 2 11:39AM ; [facility] Discussed nutritional needs teach healthy choices including fruits and vegetables Last Documented On 2 10:29AM ; [facility] Patient education about a pr oper diet Last Documented On 2 10:29AM ; [facility] Discussed concerns about exe rcise : promote physical activity Last Documented On 2 10:29AM ; [facility] Discussed current self-care methods/coping skills. ~Validated and normalized patient's feelings while assisting process recent events. ~Discussed ongoing counseling. ~Discussed lifestyle changes to address chronic illness. ~Supported patient's personal health goals Last Documented On 2 8:50PM ; [facility] Discussed nutritional needs teach healthy choices including fruits and vegetables Last Documented On 2 11:15AM ; [facility] Patient education about a pr oper diet Last Documented On 2 11:15AM ; [facility] Discussed concerns about exe rcise : promote physical activity Last Documented On 2 11:15AM ; [facility] Discussed current self-care methods/coping skills. ~Validated and normalized patient's feelings while assisting process recent events. ~Discussed ongoing mental health services. ~Discussed lifestyle changes to address chronic illness. ~Supported patient's personal health goals. ~ ~Reports feeling better since beginning new meds. Also voices and visual hallucinations have stopped; reports voices were not commanfing Last Documented On 2 8:54PM ; [facility] and suppo rtive listening and normalized emotions and feelings. ~P discussed with patient and significant other in the room with her crisis resources. Patient is agreeable to contacting one of the crisis resources should moods worsen or call 911 or go to the Emergency Room. Patient reports that she can also speak with significant others Mom or go to her [employer] house. ~[facility] and [facility]CP discussed plan to follow-up with psychiatry and counseling and a new referral being sent to [facility]. If patient is not accepted back as a patient with Dr. Dickerson, will look into other resources Last Documented On 1 7:15PM ; [facility] Discussed nutritional needs teach healthy choices including fruits and vegetables Last Documented On 1 1:18PM ; [facility] Patient education about a pr oper diet Last Documented On 1 1:18PM ; [facility] Discussed concerns about exe rcise : promote physical activity Last Documented On 1 1:18PM ; [facility] Discussed nutritional needs teach healthy choices including fruits and vegetables Last Documented On 1 10:37AM ; [facility] Patient education about a pr oper diet Last Documented On 1 10:37AM ; [facility] Discussed concerns about exe rcise : promote physical activity Last Documented On 1 10:37AM ; [facility] Explored current symptoms an d stressors. Educaated patient re importance of counseling and provided brief review of EMDR treatment. ~Encouraged patient to engage in ongoing counseling. ~ Last Documented On 1 10:50PM ; [facility] Discussed nutritional needs teach healthy choices including fruits and vegetables Last Documented On 1 6:53PM ; [facility] Patient education about a pr oper diet Last Documented On 1 6:53PM ; [facility] Discussed concerns about exe rcise : promote physical activity Last Documented On 1 6:53PM ; [facility] provided active listenin g, support and helped patient process through current symptoms and stressors related to mood and irritability. ~[facility] discussed coping skills that patient has tried as well as discussed potential benefit of counseling. ~ ~ Last Documented On 0 11:49AM ; [facility] Discussed nutritional needs teach healthy choices including fruits and vegetables Last Documented On 0 1:15PM ; [facility] Patient education about a pr oper diet Last Documented On 0 1:15PM ; [facility] Patient education about a pr oper diet Last Documented On 0 1:33PM ; [facility] Patient education about meal planning Last Documented On 0 1:33PM ; [facility] Education about changing eat ing habits Last Documented On 0 1:33PM ; [facility] Patient education about high fiber diet Last Documented On 0 1:33PM ; [facility] Patient education about low fat diet Last Documented On 0 1:33PM ; [facility] Patient education about low cholesterol diet Last Documented On 0 1:33PM ; [facility] Patient education about low carbohydrate diet Last Documented On 0 1:33PM ; [facility] Patient education about high protein diet Last Documented On 0 1:33PM ; [facility] Discussed concerns about exe rcise : promote physical activity Last Documented On 0 1:15PM ; [facility] provided active listenin g, support and helped patient process through current symptoms and stressors due to pain, loss of work and low frustration tolerance. ~[facility] discussed coping skills and supports that patient can implement inclduing meditation, mindfulness, and deep breathing activities. [facility] provided resources to patient to work on implementing. ~[facility] discussed with patient re-establishing care for therapy and provided patient with resource list. ~ Last Documented On 0 6:15PM ; [facility] Discussed nutritional needs teach healthy choices including fruits and vegetables Last Documented On 0 1:12PM ; [facility] Patient education about a pr oper diet Last Documented On 0 1:12PM ; [facility] Patient education about a pr oper diet Last Documented On 0 1:46PM ; [facility] Patient education about meal planning Last Documented On 0 1:46PM ; [facility] Education about changing eat ing habits Last Documented On 0 1:46PM ; [facility] Patient education about high fiber diet Last Documented On 0 1:46PM ; [facility] Patient education about low fat diet Last Documented On 0 1:46PM ; [facility] Patient education about low cholesterol diet Last Documented On 0 1:46PM ; [facility] Patient education about low carbohydrate diet Last Documented On 0 1:46PM ; [facility] Patient education about high protein diet Last Documented On 0 1:46PM ; [facility] Discussed concerns about exe rcise : promote physical activity Last Documented On 0 1:12PM ; [facility] Work Phone: 1(131) 997-277010-23-2023 Instructions Includes: Instructions for all patient encounters Instructions to patient Intervention and counseling on cessation of tobacco use, 3-10 minutes Last Documented On 0 1:15PM ; [facility] Education and Decision Aids were provided during visit for: Discussed nutritional needs teach healthy choices including fruits and vegetables Last Documented On 3 11:01AM ; [facility] Patient education about a pr oper diet Last Documented On 3 11:01AM ; [facility] Discussed concerns about exe rcise : promote physical activity ~ ~Follow up after ER visit Last Documented On 3 8:31PM ; [facility] Not requesting contraception Last Documented On 3 11:03AM ; [facility] Discussed nutritional needs teach healthy choices including fruits and vegetables Last Documented On 3 12:03PM ; [facility] Patient education about a pr oper diet Last Documented On 3 12:03PM ; [facility] Discussed concerns about exe rcise : promote physical activity ~ ~Will keep medication the same Last Documented On 3 4:46AM ; [facility] Not requesting contraception Last Documented On 3 12:04PM ; [facility] Discussed nutritional needs teach healthy choices including fruits and vegetables Last Documented On 3 9:09AM ; [facility] Patient education about a pr oper diet Last Documented On 3 9:09AM ; [facility] Patient education about an a sthma action plan Last Documented On 3 9:44AM ; [facility] Discussed concerns about exe rcise : promote physical activity ~ ~Will restart symbicort ~ ~Follow up in one month for asthma Last Documented On 3 12:28PM ; [facility] Discussed nutritional needs teach healthy choices including fruits and vegetables Last Documented On 2 10:58AM ; [facility] Patient education about a pr oper diet Last Documented On 2 10:58AM ; [facility] Discussed concerns about exe rcise : promote physical activity Last Documented On 2 10:58AM ; [facility] Discussed nutritional needs teach healthy choices including fruits and vegetables Last Documented On 2 11:41AM ; [facility] Patient education about a pr oper diet Last Documented On 2 11:41AM ; [facility] Discussed concerns about exe rcise : promote physical activity Last Documented On 2 11:41AM ; [facility] offered active listening and supportive feedback; normalized emotions and feelings, also provided pt time to process any current stressors ~[facility] discussed benefits of counseling and supported pt in following through with scheduled appt. ~[facility] encouraged pt to continue to make time to implement self-care regimen to assist in improving their mood Last Documented On 2 2:29PM ; [facility] Provided supportive listenin g and reflective feedback; monitored mood, explored symptoms, assessed functioning. ~Discussed medication use/compliance. ~Promoted use of healthy coping mechanisms and positive support, as needed Last Documented On 2 1:25PM ; [facility] Discussed nutritional needs teach healthy choices including fruits and vegetables Last Documented On 2 12:54PM ; [facility] Patient education about a pr oper diet Last Documented On 2 12:54PM ; [facility] Discussed concerns about exe rcise : promote physical activity Last Documented On 2 12:54PM ; [facility] Discussed nutritional needs teach healthy choices including fruits and vegetables Last Documented On 2 11:39AM ; [facility] Patient education about a pr oper diet Last Documented On 2 11:39AM ; [facility] Discussed concerns about exe rcise : promote physical activity Last Documented On 2 11:39AM ; [facility] Discussed nutritional needs teach healthy choices including fruits and vegetables Last Documented On 2 10:29AM ; [facility] Patient education about a pr oper diet Last Documented On 2 10:29AM ; [facility] Discussed concerns about exe rcise : promote physical activity Last Documented On 2 10:29AM ; [facility] Discussed current self-care methods/coping skills. ~Validated and normalized patient's feelings while assisting process recent events. ~Discussed ongoing counseling. ~Discussed lifestyle changes to address chronic illness. ~Supported patient's personal health goals Last Documented On 2 8:50PM ; [facility] Discussed nutritional needs teach healthy choices including fruits and vegetables Last Documented On 2 11:15AM ; [facility] Patient education about a pr oper diet Last Documented On 2 11:15AM ; [facility] Discussed concerns about exe rcise : promote physical activity Last Documented On 2 11:15AM ; [facility] Discussed current self-care methods/coping skills. ~Validated and normalized patient's feelings while assisting process recent events. ~Discussed ongoing mental health services. ~Discussed lifestyle changes to address chronic illness. ~Supported patient's personal health goals. ~ ~Reports feeling better since beginning new meds. Also voices and visual hallucinations have stopped; reports voices were not commanfing Last Documented On 2 8:54PM ; [facility] and suppo rtive listening and [...] resources Last Documented On 1 7:15PM ; [facility] Discussed nutritional needs teach healthy choices including fruits and vegetables Last Documented On 1 1:18PM ; [facility] Patient education about a pr oper diet Last Documented On 1 1:18PM ; [facility] Discussed concerns about exe rcise : promote physical activity Last Documented On 1 1:18PM ; [facility] Discussed nutritional needs teach healthy choices including fruits and vegetables Last Documented On 1 10:37AM ; [facility] Patient education about a pr oper diet Last Documented On 1 10:37AM ; [facility] Discussed concerns about exe rcise : promote physical activity Last Documented On 1 10:37AM ; [facility] Explored current symptoms an d stressors. Educaated patient re importance of counseling and provided brief review of EMDR treatment. ~Encouraged patient to engage in ongoing counseling. ~ Last Documented On 1 10:50PM ; [facility] Discussed nutritional needs teach healthy choices including fruits and vegetables Last Documented On 1 6:53PM ; [facility] Patient education about a pr oper diet Last Documented On 1 6:53PM ; [facility] Discussed concerns about exe rcise : promote physical activity Last Documented On 1 6:53PM ; [facility] provided active listenin g, support and helped patient process through current symptoms and stressors related to mood and irritability. ~[facility] discussed coping skills that patient has tried as well as discussed potential benefit of counseling. ~ ~ Last Documented On 0 11:49AM ; [facility] Discussed nutritional needs teach healthy choices including fruits and vegetables Last Documented On 0 1:15PM ; [facility] Patient education about a pr oper diet Last Documented On 0 1:15PM ; [facility] Patient education about a pr oper diet Last Documented On 0 1:33PM ; [facility] Patient education about meal planning Last Documented On 0 1:33PM ; [facility] Education about changing eat ing habits Last Documented On 0 1:33PM ; [facility] Patient education about high fiber diet Last Documented On 0 1:33PM ; [facility] Patient education about low fat diet Last Documented On 0 1:33PM ; [facility] Patient education about low cholesterol diet Last Documented On 0 1:33PM ; [facility] Patient education about low carbohydrate diet Last Documented On 0 1:33PM ; [facility] Patient education about high protein diet Last Documented On 0 1:33PM ; [facility] Discussed concerns about exe rcise : promote physical activity Last Documented On 0 1:15PM ; [facility] provided active listenin g, support and helped patient process through current symptoms and stressors due to pain, loss of work and low frustration tolerance. ~[facility] discussed coping skills and supports that patient can implement inclduing meditation, mindfulness, and deep breathing activities. [facility] provided resources to patient to work on implementing. ~[facility] discussed with patient re-establishing care for therapy and provided patient with resource list. ~ Last Documented On 0 6:15PM ; [facility] Discussed nutritional needs teach healthy choices including fruits and vegetables Last Documented On 0 1:12PM ; [facility] Patient education about a pr oper diet Last Documented On 0 1:12PM ; [facility] Patient education about a pr oper diet Last Documented On 0 1:46PM ; [facility] Patient education about meal planning Last Documented On 0 1:46PM ; [facility] Education about changing eat ing habits Last Documented On 0 1:46PM ; [facility] Patient education about high fiber diet Last Documented On 0 1:46PM ; [facility] Patient education about low fat diet Last Documented On 0 1:46PM ; [facility] Patient education about low cholesterol diet Last Documented On 0 1:46PM ; [facility] Patient education about low carbohydrate diet Last Documented On 0 1:46PM ; [facility] Patient education about high protein diet Last Documented On 0 1:46PM ; [facility] Discussed concerns about exe rcise : promote physical activity Last Documented On 0 1:12PM ; [facility] Work Phone: 1(130) 948-432510-19-2023 Evaluation note Includes: Assessments for all patient encounters Findings Encounter Date Body mass index Medical Established Patient with Srinivasa Jhaveri [facility] 01/28/2023 Last Documented On 3 8:31PM ; [facility] [Body mass index [BMI] 32.0- 32.9, adult] assessment of body mass index Medical Established Patient with Srinivasa Ed [facility] 12/31/2022 Last Documented On 3 5:25AM ; [facility] Uncomplicated mild persistent asthma Med ical Established Patient with Srinivasa Ed [facility] 12/31/2022 Last Documented On 3 5:25AM ; [facility] [Body mass index [BMI] 33.0- 33.9, adult] assessment of body mass index Medical Established Patient with Srinivasa Ed [facility] 11/30/2022 Last Documented On 3 12:28PM ; [facility] Anxiety disorder NOS Medical Established Patient with Srinivasa Ed [facility] 11/30/2022 Last Documented On 3 12:28PM ; [facility] Diabetes Risk Test Score was four score 11/30/2022 Medical Established Patient with Srinivasa Ed [facility] 11/30/2022 Last Documented On 3 12:28PM ; [facility] Uncomplicated mild persistent asthma Med ical Established Patient with Srinivasa Ed [facility] 11/30/2022 Last Documented On 3 12:28PM ; [facility] Visit for: routine adult H&P with abnormal findings Medical Established Patient with Srinivasa Ed [facility] 11/30/2022 Last Documented On 3 12:28PM ; [facility] [Body mass index [BMI] 30.0- 30.9, adult] assessment of body mass index Medical Established Patient with Srinivasa Ed [facility] 01/22/2022 Last Documented On 2 6:17PM ; [facility] Dysuria Medical Established Patient with Srinivasa Ed [facility] 01/22/2022 Last Documented On 2 6:17PM ; [facility] Bipolar schizoaffective disorder BH Esta blished Patient with Ina Díaz [facility] 12/11/2021 Last Documented On 2 2:31PM ; [facility] Assessment of body mass inde x [Body mass index [BMI] 26.0-26.9, adult] Medical Established Patient with Srinivasa Ed [facility] 12/11/2021 Last Documented On 2 12:34PM ; [facility] Bipolar schizoaffective disorder BH Esta blished Patient with Ina Watkinserson [facility] 11/25/2021 Last Documented On 2 1:25PM ; [facility] Anxiety disorder NOS Medical Established Patient with Traci Juma [facility] 11/25/2021 Last Documented On 2 3:06PM ; [facility] Urinary tract infection Medical Establis hed Patient with Traci Juma [facility] 11/25/2021 Last Documented On 2 3:06PM ; [facility] Z68.27 - Body mass index [BM I] 27.0-27.9, adult Medical Established Patient with Traci Juma [facility] 11/25/2021 Last Documented On 2 3:06PM ; [facility] Anxiety disorder NOS Medical Established Patient with Traci Juma [facility] 08/13/2021 Last Documented On 2 8:18AM ; [facility] Assessment of body mass index Medical Es tablished Patient with Traci Juma [facility] 08/13/2021 Last Documented On 2 8:18AM ; [facility] Chronic gastritis without hemorrhage Med ical Established Patient with Traci Juma [facility] 08/13/2021 Last Documented On 2 8:18AM ; [facility] Diverticulosis of intestine Medical Esta blished Patient with Traci Juma [facility] 08/13/2021 Last Documented On 2 8:18AM ; [facility] Urinary tract infection Medical Establis hed Patient with Traci Juma [facility] 08/13/2021 Last Documented On 2 8:18AM ; [facility] Anxiety disorder NOS Medical Established Patient with Traci Juma [facility] 07/17/2021 Last Documented On 2 8:10AM ; [facility] Other hypothyroidism Medical Established Patient with Traci Juma [facility] 07/17/2021 Last Documented On 2 8:10AM ; [facility] Upper respiratory infection Medical Esta blished Patient with Traci Juma [facility] 07/17/2021 Last Documented On 2 8:10AM ; [facility] Visit for: routine adult H&P with abnormal findings Medical Established Patient with Traci Juma [facility] 07/17/2021 Last Documented On 2 8:10AM ; [facility] Visit for: screening for lip oid disorders Medical Established Patient with Traci Dennison [facility] 07/17/2021 Last Documented On 2 8:10AM ; [facility] Vitamin B12 deficiency Medical Establish ed Patient with Traci Dennison [facility] 07/17/2021 Last Documented On 2 8:10AM ; [facility] Vitamin D deficiency Medical Established Patient with Traci Dennison [facility] 07/17/2021 Last Documented On 2 8:10AM ; [facility] Z68.28 - Body mass index [BM I] 28.0-28.9, adult Medical Established Patient with Traci Dennison [facility] 07/17/2021 Last Documented On 2 8:10AM ; [facility] Allergic rhinitis Telemedicine Establi sted Patient with Traci Dennison [facility] 07/16/2021 Last Documented On 2 8:23AM ; [facility] Exposure to COVID-19 Telemedicine Establ isted Patient with Traci Dennison [facility] 04/29/2021 Last Documented On 2 8:02PM ; [facility] Bipolar schizoaffective disorder BH Esta blished [facility] 04/15/[facility]21 Last Documented On 2 1:07PM ; [facility] Anxiety disorder NOS Medical Established Patient with Traci Dennison [facility] 04/15/2021 Last Documented On 2 9:06AM ; [facility] Assessment of body mass index Medical Es tablished Patient with Traci Dennison [facility] 04/15/2021 Last Documented On 2 9:06AM ; [facility] Bipolar disorder NOS Medical Established Patient with Traci Dennison [facility] 04/15/2021 Last Documented On 2 9:06AM ; [facility] Anxiety disorder NOS BH Telebehavioral H ealth [facility]w [facility] 04/09/2021 Last Documented On 2 9:05AM ; [facility] Bipolar disorder NOS Telebehavioral H ealth with Farrahmatthew Klinemons [facility] 04/09/2021 Last Documented On 2 9:05AM ; [facility] Anxiety disorder NOS Established Patient with Hannah Short [facility] 04/03/2021 Last Documented On 1 7:15PM ; [facility] Bipolar I disorder, most rec ent episode, depressed Established Patient with Hannah Short [facility] 04/03/2021 Last Documented On 1 7:15PM ; [facility] Nicotine dependence Established Patient with Hannah Short [facility] 04/03/2021 Last Documented On 1 7:15PM ; [facility] Nicotine dependence Established Patient with Hannah Short [facility] 04/03/2021 Last Documented On 1 7:15PM ; [facility] Undifferentiated schizophren ia per patient reported history Established Patient with Hannah Short [facility] 04/03/2021 Last Documented On 1 7:15PM ; [facility] A home test was negative Medic al Established Patient with Traci Dennison [facility] 04/03/2021 Last Documented On 1 8:11PM ; [facility] Assessment of body mass index Medical Es tablished Patient with Traci Juma [facility] 04/03/2021 Last Documented On 1 8:11PM ; [facility] Epilepsy, not intractable, w ithout status epilepticus Medical Established Patient with Traci Juma [facility] 04/03/2021 Last Documented On 1 8:11PM ; [facility] Mixed affective bipolar diso rder, moderate Medical Established Patient with Traci Dennison [facility] 04/03/2021 Last Documented On 1 8:11PM ; [facility] Urinary tract infection Medical Establis hed Patient with Traci Dennison [facility] 04/03/2021 Last Documented On 1 8:11PM ; [facility] Visit for: screening for STD Medical Est ablished Patient with Traci Juma [facility] 04/03/2021 Last Documented On 1 8:11PM ; [facility] Assessment of visit for: scr eening for human immunodeficiency virus Medical Established Patient with Peggy Thrasher [facility] 02/14/2021 Last Documented On 1 1:16PM ; [facility] Diabetes Risk Test Score was three score 02/14/2021 Medical Established Patient with Peggy Thrasher [facility] 02/14/2021 Last Documented On 1 1:16PM ; [facility] Diarrhea Medical Established Patient with Peggy Thrasher [facility] 02/14/2021 Last Documented On 1 1:16PM ; [facility] Nicotine dependence Medical Established Patient with Peggy Thrasher [facility] 02/14/2021 Last Documented On 1 1:16PM ; [facility] Z68.28 - Body mass index [BM I] 28.0-28.9, adult Medical Established Patient with Peggy Thrasher [facility] 02/14/2021 Last Documented On 1 1:16PM ; [facility] Cough Telemedicine Establisted Patient with Traci Dennison [facility] 01/01/2021 Last Documented On 1 6:31PM ; [facility] Fever Telemedicine Establisted Patient with Traci Dennison [facility] 01/01/2021 Last Documented On 1 6:31PM ; [facility] Z20.822 - Contact with and (suspected) exposure to COVID-19 Telemedicine Establisted Patient with Traci Dennison [facility] 01/01/2021 Last Documented On 1 6:31PM ; [facility] Bipolar I disorder, most rec ent episode, depressed Established Patient with Farrah Hernandezs [facility] 06/03/2020 Last Documented On 1 10:50PM ; [facility] Paranoid schizophrenia per p atient report Established Patient with Farrah Hernandezs [facility] 06/03/2020 Last Documented On 1 10:50PM ; [facility] Post-traumatic stress disord er per patient report Established Patient with Farrah Hernandezs [facility] 06/03/2020 Last Documented On 1 10:50PM ; [facility] 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 Patient with Traci Dennison [facility] 06/03/2020 Last Documented On 1 8:25AM ; [facility] Overweight Medical Established Patient with Traci Dennison [facility] 06/03/2020 Last Documented On 1 8:25AM ; [facility] Z68.29 - Body mass index [BM I] 29.0-29.9, adult Medical Established Patient with Traci Dennison [facility] 06/03/2020 Last Documented On 1 8:25AM ; [facility] Anxiety disorder NOS Medical Established Patient with Traci Dennison [facility] 01/26/2020 Last Documented On 0 7:37PM ; [facility] Bipolar disorder NOS Medical Established Patient with Traci Dennison [facility] 01/26/2020 Last Documented On 0 7:37PM ; [facility] Infection of tooth Medical Established Patient w ith Traci Dennison [facility] 01/26/2020 Last Documented On 0 7:37PM ; [facility] Z68.20 - Body mass index [BM I] 20.0-20.9, adult Medical Established Patient with Traci Dennison [facility] 01/26/2020 Last Documented On 0 7:37PM ; [facility] Bipolar I disorder, most rec ent episode, mixed Established Patient with Hannah Short [facility] 01/08/2020 Last Documented On 0 11:49AM ; [facility] Generalized anxiety disorder BH Establis hed Patient with Hannah Short [facility] 01/08/2020 Last Documented On 0 11:49AM ; [facility] Diabetes Risk Test Score was one score 01/08/2020 Medical Established Patient with Peggy Anna Marie [facility] 01/08/2020 Last Documented On 0 1:42PM ; [facility] Overweight Medical Established Patient with Peggyisis Leoen [facility] 01/08/2020 Last Documented On 0 1:42PM ; [facility] Z68.27 - Body mass index (BM I) 27.0-27.9, adult Medical Established Patient with Peggy Anna Marie [facility] 01/08/2020 Last Documented On 0 1:42PM ; [facility] Bipolar I disorder, most rec ent episode, mixed Established Patient with Hannah Short [facility] 12/25/2019 Last Documented On 0 6:16PM ; [facility] Generalized anxiety disorder BH Establis hed Patient with Hannah Short [facility] 12/25/2019 Last Documented On 0 6:16PM ; [facility] Overweight Medical Established Patient with Peggy Thrasher [facility] 12/25/2019 Last Documented On 0 1:54PM ; [facility] Z68.26 - Body mass index (BM I) 26.0-26.9, adult Medical Established Patient with Peggy Thrasher [facility] 12/25/2019 Last Documented On 0 1:54PM ; [facility] Work Phone: 1(485) 818-185610-19-2023 Progress note* Progress note Date Encounter Last Documented by 01/28/2023 Medical Established Patient Last documented on 02/01/2023; 8:31 PM, Srinivasa Jhaveri CNP; [facility] Active Problems & Conditions - F41.9 [...] BP-Sitting L118/75 mmHg BP Cuff SizeLarge Pulse Rate-Mctpmvt96 bpm Temp-Oral98.4 F Rhjyun34 in Ltvlvd004 lbs 12.8 oz Body Mass Index32.7 kg/m2 Body Surface Area1.7 m2 Oxygen Fuwyzeldgi52 % Vital Signs: - Systolic blood pressure [...] Will - Declined to Provide Advance Directive [facility]09-21-2023 Evaluation note Includes: Assessments for all patient encounters Findings Encounter Date [Body mass index [BMI] 32.0- 32.9, adult] assessment of body mass index Medical Established Patient with Srinivasa Jhaveri [facility] 12/31/2022 Last Documented On 3 5:25AM ; [facility] Uncomplicated mild persistent asthma Med ical Established Patient with Srinivasa Boyceer [facility] 12/31/2022 Last Documented On 3 5:25AM ; [facility] [Body mass index [BMI] 33.0- 33.9, adult] assessment of body mass index Medical Established Patient with Srinivasa Boyceer [facility] 11/30/2022 Last Documented On 3 12:28PM ; [facility] Anxiety disorder NOS Medical Established Patient with Srinivasa Ed [facility] 11/30/2022 Last Documented On 3 12:28PM ; [facility] Diabetes Risk Test Score was four score 11/30/2022 Medical Established Patient with Srinivasa Boyceer [facility] 11/30/2022 Last Documented On 3 12:28PM ; [facility] Uncomplicated mild persistent asthma Med ical Established Patient with Srinivasa Ed [facility] 11/30/2022 Last Documented On 3 12:28PM ; [facility] Visit for: routine adult H&P with abnormal findings Medical Established Patient with Srinivasa Jhaveri [facility] 11/30/2022 Last Documented On 3 12:28PM ; [facility] [Body mass index [BMI] 30.0- 30.9, adult] assessment of body mass index Medical Established Patient with Srinivasa Boyceer [facility] 01/22/2022 Last Documented On 2 6:17PM ; [facility] Dysuria Medical Established Patient with Srinivasa Ed [facility] PITTER 01/22/2022 Last Documented On 2 6:17PM ; [facility] Bipolar schizoaffective disorder BH Esta blished Patient with Inatameka WatkinsDíaz LPCC-S 12/11/2021 Last Documented On 2 2:31PM ; [facility] Assessment of body mass inde x [Body mass index [BMI] 26.0-26.9, adult] Medical Established Patient with Srinivasa Ed FRUIT PITTER 12/11/2021 Last Documented On 2 12:34PM ; [facility] Bipolar schizoaffective disorder BH Esta blished [facility]21 Last Documented On 2 1:25PM ; [facility] Anxiety disorder NOS Medical Established Patient with Traci Juma FR[facility] PITTER 11/25/2021 Last Documented On 2 3:06PM ; [facility] Urinary tract infection Medical Establis hed Patient with Traci Juma FR[facility] PITTER 11/25/2021 Last Documented On 2 3:06PM ; [facility] Z68.27 - Body mass index [BM I] 27.0-27.9, adult Medical Established Patient with Traci Juma FR[facility] PITTER 11/25/2021 Last Documented On 2 3:06PM ; [facility] Anxiety disorder NOS Medical Established Patient with Traci Juma FR[facility] PITTER 08/13/2021 Last Documented On 2 8:18AM ; [facility] Assessment of body mass index Medical Es tablished Patient with Traci Juma FR[facility] PITTER 08/13/2021 Last Documented On 2 8:18AM ; [facility] Chronic gastritis without hemorrhage Med ical Established Patient with Traci Juma FR[facility] PITTER 08/13/2021 Last Documented On 2 8:18AM ; [facility] Diverticulosis of intestine Medical Esta blished Patient with Traci Juma FR[facility] PITTER 08/13/2021 Last Documented On 2 8:18AM ; [facility] Urinary tract infection Medical Establis hed Patient with Traci Dennison FR[facility] PITTER 08/13/2021 Last Documented On 2 8:18AM ; [facility] Anxiety disorder NOS Medical Established Patient with Traci Juma FR[facility] PITTER 07/17/2021 Last Documented On 2 8:10AM ; [facility] Other hypothyroidism Medical Established Patient with Traci Juma FR[facility] PITTER 07/17/2021 Last Documented On 2 8:10AM ; [facility] Upper respiratory infection Medical Esta blished Patient with Traci Juma FRUIT PITTER 07/17/2021 Last Documented On 2 8:10AM ; [facility] Visit for: routine adult H&P with abnormal findings Medical Established Patient with Traci Dennison FR[facility] PITTER 07/17/2021 Last Documented On 2 8:10AM ; [facility] Visit for: screening for lip oid disorders Medical Established Patient with Traci Dennison FR[facility] PITTER 07/17/2021 Last Documented On 2 8:10AM ; [facility] Vitamin B12 deficiency Medical Establish ed Patient with Traci Dennison FR[facility] PITTER 07/17/2021 Last Documented On 2 8:10AM ; [facility] Vitamin D deficiency Medical Established Patient with Traci Dennison FRUIT PITTER 07/17/2021 Last Documented On 2 8:10AM ; [facility] Z68.28 - Body mass index [BM I] 28.0-28.9, adult Medical Established Patient with Traci Dennison FR[facility] PITTER 07/17/2021 Last Documented On 2 8:10AM ; [facility] Allergic rhinitis Telemedicine Establi sted Patient with Traci Dennison FR[facility] PITTER 07/16/2021 Last Documented On 2 8:23AM ; [facility] Exposure to COVID-19 Telemedicine Establ isted Patient with Traci Dennison FR[facility] PITTER 04/29/2021 Last Documented On 2 8:02PM ; [facility] Bipolar schizoaffective disorder BH Esta blished Patient with Farrah Jarrett LPCC-S 04/15/2021 Last Documented On 2 1:07PM ; [facility] Anxiety disorder NOS Medical Established Patient with Traci Dennison FR[facility] PITTER 04/15/2021 Last Documented On 2 9:06AM ; [facility] Assessment of body mass index Medical Es tablished Patient with Traci Dennison FR[facility] PITTER 04/15/2021 Last Documented On 2 9:06AM ; [facility] Bipolar disorder NOS Medical Established Patient with Traci Dennison FR[facility] PITTER 04/15/2021 Last Documented On 2 9:06AM ; [facility] Anxiety disorder NOS Telebehavioral H ealth with Farrah Jarrett LPCC-S 04/09/2021 Last Documented On 2 9:05AM ; [facility] Bipolar disorder NOS Telebehavioral H ealth with Farrah Jarrett LPCC-S 04/09/2021 Last Documented On 2 9:05AM ; [facility] Anxiety disorder NOS Established Patient with Hannah Short LISWS 04/03/2021 Last Documented On 1 7:15PM ; [facility] Bipolar I disorder, most rec ent episode, depressed Established Patient with Hannah Short LISWS 04/03/2021 Last Documented On 1 7:15PM ; [facility] Nicotine dependence Established Patient with Hannah Short LISWS 04/03/2021 Last Documented On 1 7:15PM ; [facility] Nicotine dependence Established Patient with Hannah Short LISWS 04/03/2021 Last Documented On 1 7:15PM ; [facility] Undifferentiated schizophren ia per patient reported history Established Patient with Hannah Short LISWS 04/03/2021 Last Documented On 1 7:15PM ; [facility] A home test was negative Medic al Established Patient with Traci Dennison FR[facility] PITTER 04/03/2021 Last Documented On 1 8:11PM ; [facility] Assessment of body mass index Medical Es tablished Patient with Traci Dennison FR[facility] PITTER 04/03/2021 Last Documented On 1 8:11PM ; [facility] Epilepsy, not intractable, w ithout status epilepticus Medical Established Patient with Traci Dennison FR[facility] PITTER 04/03/2021 Last Documented On 1 8:11PM ; [facility] Mixed affective bipolar diso rder, moderate Medical Established Patient with Traci Dennison [facility] 04/03/2021 Last Documented On 1 8:11PM ; [facility] Urinary tract infection Medical Establis hed Patient with Traci Dennison [facility] 04/03/2021 Last Documented On 1 8:11PM ; [facility] Visit for: screening for STD Medical Est ablished Patient with Traci Dennison [facility] 04/03/2021 Last Documented On 1 8:11PM ; [facility] Assessment of visit for: scr eening for human immunodeficiency virus Medical Established Patient with Peggy Thrasher [facility] 02/14/2021 Last Documented On 1 1:16PM ; [facility] Diabetes Risk Test Score was three score 02/14/2021 Medical Established Patient with Peggy Thrasher [facility] 02/14/2021 Last Documented On 1 1:16PM ; [facility] Diarrhea Medical Established Patient with Peggy Thrasher [facility] 02/14/2021 Last Documented On 1 1:16PM ; [facility] Nicotine dependence Medical Established Patient with Peggy Thrasher [facility] 02/14/2021 Last Documented On 1 1:16PM ; [facility] Z68.28 - Body mass index [BM I] 28.0-28.9, adult Medical Established Patient with Peggy Thrasher [facility] 02/14/2021 Last Documented On 1 1:16PM ; [facility] Cough Telemedicine Establisted Patient with Traci Dennison [facility] 01/01/2021 Last Documented On 1 6:31PM ; [facility] Fever Telemedicine Establisted Patient with Traci Dennison [facility] 01/01/2021 Last Documented On 1 6:31PM ; [facility] Z20.822 - Contact with and (suspected) exposure to COVID-19 Telemedicine Establisted Patient with Traci Dennison [facility] 01/01/2021 Last Documented On 1 6:31PM ; [facility] Bipolar I disorder, most rec ent episode, depressed BH Established Patient with Farrah Jarrett LPCC-S 06/03/2020 Last Documented On 1 10:50PM ; [facility] Paranoid schizophrenia per p atient report Established Patient with Farrah Jarrett LPCC-S 06/03/2020 Last Documented On 1 10:50PM ; [facility] Post-traumatic stress disord er per patient report Established Patient with Farrah Jarrett LPCC-S 06/03/2020 Last Documented On 1 10:50PM ; [facility] 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 Patient with Traci Dennison FR[facility]ITTER 06/03/2020 Last Documented On 1 8:25AM ; [facility] Overweight Medical Established Patient with Traci Dennison FR[facility] PITTER 06/03/2020 Last Documented On 1 8:25AM ; [facility] Z68.29 - Body mass index [BM I] 29.0-29.9, adult Medical Established Patient with Traci Dennison FR[facility] PITTER 06/03/2020 Last Documented On 1 8:25AM ; [facility] Anxiety disorder NOS Medical Established Patient with Traci Dennison FR[facility] PITTER 01/26/2020 Last Documented On 0 7:37PM ; [facility] Bipolar disorder NOS Medical Established Patient with Traci Dennison FR[facility] PITTER 01/26/2020 Last Documented On 0 7:37PM ; [facility] Infection of tooth Medical Established Patient w ith Traci Dennison FRUIT PITTER 01/26/2020 Last Documented On 0 7:37PM ; [facility] Z68.20 - Body mass index [BM I] 20.0-20.9, adult Medical Established Patient with Traci Dennison FR[facility] PITTER 01/26/2020 Last Documented On 0 7:37PM ; [facility] Bipolar I disorder, most rec ent episode, mixed Established Patient with Hannah Short LISWS 01/08/2020 Last Documented On 0 11:49AM ; [facility] Generalized anxiety disorder Establis hed Patient with Hannah Short LISWS 01/08/2020 Last Documented On 0 11:49AM ; [facility] Diabetes Risk Test Score was one score 01/08/2020 Medical Established Patient with Peggy Thrasher FR[facility] PITTER 01/08/2020 Last Documented On 0 1:42PM ; [facility] Overweight Medical Established Patient with Peggy Thrasher FR[facility] PITTER 01/08/2020 Last Documented On 0 1:42PM ; [facility] Z68.27 - Body mass index (BM I) 27.0-27.9, adult Medical Established Patient with Peggy Thrasher FR[facility] PITTER 01/08/2020 Last Documented On 0 1:42PM ; [facility] Bipolar I disorder, most rec ent episode, mixed BH Established Patient with Hannah Short LISWS 12/25/2019 Last Documented On 0 6:16PM ; [facility] Generalized anxiety disorder BH Establis hed Patient with Hannah Short LISWS 12/25/2019 Last Documented On 0 6:16PM ; [facility] Overweight Medical Established Patient with Peggy Thrasher FR[facility] PITTER 12/25/2019 Last Documented On 0 1:54PM ; [facility] Z68.26 - Body mass index (BM I) 26.0-26.9, adult Medical Established Patient with Peggy Thrasher FRUIT PITTER 12/25/2019 Last Documented On 0 1:54PM ; [facility] Work Phone: 1(555) 995-564509-21-2023 Progress note* Progress note Date Encounter Last Documented by 12/31/2022 Medical Established Patient Last documented on 01/05/2023; 5:25 AM, Srinivasa Jhaveri CNP; [facility] Active Problems & Conditions - F41.9 [...] the emergency room. Prior encounters [facility] - [place]. - Data to be reviewed: no clinical [...] times daily, 30 days, 5 refills - Dapibhblsv-SSGC-Qhtvstbp 50-325-40 MG Oral Tablet take 1 tablet [...] BP-Sitting L108/76 mmHg BP Cuff SizeRegular Pulse Rate-Zoybzni46 bpm Temp-Oral98.1 F Kwcaqn65 in Kdwlup285 lbs Body Mass Index32.9 kg/m2 Body Surface Area1.7 m2 Oxygen Qysgxalfef15 % Vital Signs: - Systolic blood pressure [...] Will - Declined to Provide Advance Directive [facility]08-21-2023 History general Narrative - Reported Includes: Medical History in patient's chart Description Last Updated Not planning to have a baby in the next 12 months 11/30/2022 Last Documented On 3 12:28PM ; [facility] History of anxiety disorder NOS 07/18/19 22 Last Documented On 2 8:10AM ; [facility] No previous hospitalizations 04/03/2021 Last Documented On 1 8:11PM ; [facility] History of complete colonoscopy 04/03/20 21 Last Documented On 1 8:11PM ; [facility] Epilepsy 12/25/2019 Last Documented On 0 1:54PM ; [facility] 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 Last Documented On 0 1:54PM ; [facility] Ovarian cyst 12/25/2019 Last Documented On 0 1:54PM ; [facility] Post-traumatic stress disorder 0 Last Documented On 0 1:54PM ; [facility] History of asthma 12/25/2019 Last Documented On 0 1:54PM ; [facility] History of schizophrenia 12/25/2019 Last Documented On 0 1:54PM ; [facility] History of bipolar disorder NOS 12/25/19 20 Last Documented On 0 1:54PM ; [facility] History of depression 12/25/2019 Last Documented On 0 1:54PM ; [facility] History of psychiatric disorders 020 Last Documented On 0 1:54PM ; [facility] Work Phone: 1(159) 883-872808-21-2023 History general Narrative - Reported Includes: Medical History in patient's chart Description Last Updated Not planning to have a baby in the next 12 months 11/30/2022 Last Documented On 3 12:28PM ; [facility] History of anxiety disorder NOS 07/18/19 22 Last Documented On 2 8:10AM ; [facility] No previous hospitalizations 04/03/2021 Last Documented On 1 8:11PM ; [facility] History of complete colonoscopy 04/03/20 Last Documented On 1 8:11PM ; [facility] Epilepsy 12/25/2019 Last Documented On 0 1:54PM ; [facility] 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 Last Documented On 0 1:54PM ; [facility] Ovarian cyst 12/25/2019 Last Documented On 0 1:54PM ; [facility] Post-traumatic stress disorder 0 Last Documented On 0 1:54PM ; [facility] History of asthma 12/25/2019 Last Documented On 0 1:54PM ; [facility] History of schizophrenia 12/25/2019 Last Documented On 0 1:54PM ; [facility] History of bipolar disorder NOS 12/25/19 Last Documented On 0 1:54PM ; [facility] History of depression 12/25/2019 Last Documented On 0 1:54PM ; [facility] History of psychiatric disorders 020 Last Documented On 0 1:54PM ; [facility] Work Phone: 1([phone]) 273-199408-21-2023 History general Narrative - Reported Includes: Medical History in patient's chart Description Last Updated Not planning to have a baby in the next 12 months 11/30/2022 Last Documented On 3 12:28PM ; [facility] History of anxiety disorder NOS 07/18/19 22 Last Documented On 2 8:10AM ; [facility] No previous hospitalizations 04/03/2021 Last Documented On 1 8:11PM ; [facility] History of complete colonoscopy 04/03/20 Last Documented On 1 8:11PM ; [facility] Epilepsy 12/25/2019 Last Documented On 0 1:54PM ; [facility] 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 Last Documented On 0 1:54PM ; [facility] Ovarian cyst 12/25/2019 Last Documented On 0 1:54PM ; [facility] Post-traumatic stress disorder 0 Last Documented On 0 1:54PM ; [facility] History of asthma 12/25/2019 Last Documented On 0 1:54PM ; [facility] History of schizophrenia 12/25/2019 Last Documented On 0 1:54PM ; [facility] History of bipolar disorder NOS 12/25/19 Last Documented On 0 1:54PM ; [facility] History of depression 12/25/2019 Last Documented On 0 1:54PM ; [facility] History of psychiatric disorders 020 Last Documented On 0 1:54PM ; [facility] Work Phone: 1(540) 489-370408-21-2023 History general Narrative - Reported Includes: Medical History in patient's chart Description Last Updated Not planning to have a baby in the next 12 months 11/30/2022 Last Documented On 3 12:28PM ; [facility] History of anxiety disorder NOS 07/18/19 22 Last Documented On 2 8:10AM ; [facility] No previous hospitalizations 04/03/2021 Last Documented On 1 8:11PM ; [facility] History of complete colonoscopy 04/03/20 Last Documented On 1 8:11PM ; [facility] Epilepsy 12/25/2019 Last Documented On 0 1:54PM ; [facility] 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 Last Documented On 0 1:54PM ; [facility] Ovarian cyst 12/25/2019 Last Documented On 0 1:54PM ; [facility] Post-traumatic stress disorder 0 Last Documented On 0 1:54PM ; [facility] History of asthma 12/25/2019 Last Documented On 0 1:54PM ; [facility] History of schizophrenia 12/25/2019 Last Documented On 0 1:54PM ; [facility] History of bipolar disorder NOS 12/25/19 20 Last Documented On 0 1:54PM ; [facility] History of depression 12/25/2019 Last Documented On 0 1:54PM ; [facility] History of psychiatric disorders 020 Last Documented On 0 1:54PM ; [facility] Work Phone: 1(884) 680-161508-21-2023 Progress note* Progress note Date Encounter Last Documented by 11/30/2022 Medical Established Patient Last documented on 11/30/2022; 12:28 PM, Srinivasa Jhaveri CNP; [facility] Active Problems & Conditions - F41.9 [...] erna correa, 0 days, 0 refills - Denovhrlti-SFCC-Xxnjvyta 50-325-40 MG Oral Tablet take 1 tablet [...] Findings - Vitals taken 11/30/2022 09:05 am BP-Bmotfdq183/77 mmHg BP Cuff SizeRegular Pulse Rate-Xrvltgu09 bpm Temp-Oral98.4 F Ohsthb74 in Sfudkw702 lbs 12.8 oz Body Mass Index33.3 kg/m2 Body Surface Area1.7 m2 Oxygen Mybycsgqnc54 % Vital Signs: - Systolic blood pressure [...] Less than 40 years (0 points) [Pre-DM]. [facility]08-21-2023 Instructions Includes: Instructions for all patient encounters Instructions to patient Intervention and counseling on cessation of tobacco use, 3-10 minutes Last Documented On 0 1:15PM ; [facility] Education and Decision Aids were provided during visit for: Discussed nutritional needs teach healthy choices including fruits and vegetables Last Documented On 3 9:09AM ; [facility] Patient education about a pr oper diet Last Documented On 3 9:09AM ; [facility] Patient education about an a sthma action plan Last Documented On 3 9:44AM ; [facility] Discussed concerns about exe rcise : promote physical activity ~ ~Will restart symbicort ~ ~Follow up in one month for asthma Last Documented On 3 12:28PM ; [facility] Discussed nutritional needs teach healthy choices including fruits and vegetables Last Documented On 2 10:58AM ; [facility] Patient education about a pr oper diet Last Documented On 2 10:58AM ; [facility] Discussed concerns about exe rcise : promote physical activity Last Documented On 2 10:58AM ; [facility] Discussed nutritional needs teach healthy choices including fruits and vegetables Last Documented On 2 11:41AM ; [facility] Patient education about a pr oper diet Last Documented On 2 11:41AM ; [facility] Discussed concerns about exe rcise : promote physical activity Last Documented On 2 11:41AM ; [facility] offered active listening and supportive feedback; normalized emotions and feelings, also provided pt time to process any current stressors ~P discussed benefits of counseling and supported pt in following through with scheduled appt. ~P encouraged pt to continue to make time to implement self-care regimen to assist in improving their mood Last Documented On 2 2:29PM ; [facility] Provided supportive listenin g and reflective feedback; monitored mood, explored symptoms, assessed functioning. ~Discussed medication use/compliance. ~Promoted use of healthy coping mechanisms and positive support, as needed Last Documented On 2 1:25PM ; [facility] Discussed nutritional needs teach healthy choices including fruits and vegetables Last Documented On 2 12:54PM ; [facility] Patient education about a pr oper diet Last Documented On 2 12:54PM ; [facility] Discussed concerns about exe rcise : promote physical activity Last Documented On 2 12:54PM ; [facility] Discussed nutritional needs teach healthy choices including fruits and vegetables Last Documented On 2 11:39AM ; [facility] Patient education about a pr oper diet Last Documented On 2 11:39AM ; [facility] Discussed concerns about exe rcise : promote physical activity Last Documented On 2 11:39AM ; [facility] Discussed nutritional needs teach healthy choices including fruits and vegetables Last Documented On 2 10:29AM ; [facility] Patient education about a pr oper diet Last Documented On 2 10:29AM ; [facility] Discussed concerns about exe rcise : promote physical activity Last Documented On 2 10:29AM ; [facility] Discussed current self-care methods/coping skills. ~Validated and normalized patient's feelings while assisting process recent events. ~Discussed ongoing counseling. ~Discussed lifestyle changes to address chronic illness. ~Supported patient's personal health goals Last Documented On 2 8:50PM ; [facility] Discussed nutritional needs teach healthy choices including fruits and vegetables Last Documented On 2 11:15AM ; [facility] Patient education about a pr oper diet Last Documented On 2 11:15AM ; [facility] Discussed concerns about exe rcise : promote physical activity Last Documented On 2 11:15AM ; [facility] Discussed current self-care methods/coping skills. ~Validated and normalized patient's feelings while assisting process recent events. ~Discussed ongoing mental health services. ~Discussed lifestyle changes to address chronic illness. ~Supported patient's personal health goals. ~ ~Reports feeling better since beginning new meds. Also voices and visual hallucinations have stopped; reports voices were not commanfing Last Documented On 2 8:54PM ; [facility] offered active and suppo rtive [...] significant others Mom or go to her [employer] house. ~[facility] and PCP discussed plan to follow-up with psychiatry and counseling and a new referral being sent to [facility]. If patient is not accepted back as a patient with Dr. Dickerson, will look into other resources Last Documented On 1 7:15PM ; [facility] Discussed nutritional needs teach healthy choices including fruits and vegetables Last Documented On 1 1:18PM ; [facility] Patient education about a pr oper diet Last Documented On 1 1:18PM ; [facility] Discussed concerns about exe rcise : promote physical activity Last Documented On 1 1:18PM ; [facility] Discussed nutritional needs teach healthy choices including fruits and vegetables Last Documented On 1 10:37AM ; [facility] Patient education about a pr oper diet Last Documented On 1 10:37AM ; [facility] Discussed concerns about exe rcise : promote physical activity Last Documented On 1 10:37AM ; [facility] Explored current symptoms an d stressors. Educaated patient re importance of counseling and provided brief review of EMDR treatment. ~Encouraged patient to engage in ongoing counseling. ~ Last Documented On 1 10:50PM ; [facility] Discussed nutritional needs teach healthy choices including fruits and vegetables Last Documented On 1 6:53PM ; [facility] Patient education about a pr oper diet Last Documented On 1 6:53PM ; [facility] Discussed concerns about exe rcise : promote physical activity Last Documented On 1 6:53PM ; [facility] provided active listenin g, support and helped patient process through current symptoms and stressors related to mood and irritability. ~[facility] discussed coping skills that patient has tried as well as discussed potential benefit of counseling. ~ ~ Last Documented On 0 11:49AM ; [facility] Discussed nutritional needs teach healthy choices including fruits and vegetables Last Documented On 0 1:15PM ; [facility] Patient education about a pr oper diet Last Documented On 0 1:15PM ; [facility] Patient education about a pr oper diet Last Documented On 0 1:33PM ; [facility] Patient education about meal planning Last Documented On 0 1:33PM ; [facility] Education about changing eat ing habits Last Documented On 0 1:33PM ; [facility] Patient education about high fiber diet Last Documented On 0 1:33PM ; [facility] Patient education about low fat diet Last Documented On 0 1:33PM ; [facility] Patient education about low cholesterol diet Last Documented On 0 1:33PM ; [facility] Patient education about low carbohydrate diet Last Documented On 0 1:33PM ; [facility] Patient education about high protein diet Last Documented On 0 1:33PM ; [facility] Discussed concerns about exe rcise : promote physical activity Last Documented On 0 1:15PM ; [facility] provided active listenin g, support and helped patient process through current symptoms and stressors due to pain, loss of work and low frustration tolerance. ~P discussed coping skills and supports that patient can implement inclduing meditation, mindfulness, and deep breathing activities. [facility] provided resources to patient to work on implementing. ~[facility] discussed with patient re-establishing care for therapy and provided patient with resource list. ~ Last Documented On 0 6:15PM ; [facility] Discussed nutritional needs teach healthy choices including fruits and vegetables Last Documented On 0 1:12PM ; [facility] Patient education about a pr oper diet Last Documented On 0 1:12PM ; [facility] Patient education about a pr oper diet Last Documented On 0 1:46PM ; [facility] Patient education about meal planning Last Documented On 0 1:46PM ; [facility] Education about changing eat ing habits Last Documented On 0 1:46PM ; [facility] Patient education about high fiber diet Last Documented On 0 1:46PM ; [facility] Patient education about low fat diet Last Documented On 0 1:46PM ; [facility] Patient education about low cholesterol diet Last Documented On 0 1:46PM ; [facility] Patient education about low carbohydrate diet Last Documented On 0 1:46PM ; [facility] Patient education about high protein diet Last Documented On 0 1:46PM ; [facility] Discussed concerns about exe rcise : promote physical activity Last Documented On 0 1:12PM ; [facility] Work Phone: [phone]) 228-388002-27-2023 Hospital Discharge instructions* Discharge Instructions* Serenity Will, - 06/08/2022 12:32 AM EST Okay to [...] 2 to 3 days. [facility] Phone: [phone] History of Present illness Narrative* Erna Orozco RN - 02/19/2022 11:00 AM EST Patient instructed on extended hosiery pairer indications and use. Diary sent with patient. documented in this [facility] Phone: [phone]) 501-153610-13-2022 Evaluation note Includes: Assessments for all patient encounters Findings Encounter Date [Body mass index [BMI] 30.0- 30.9, adult] assessment of body mass index Medical Established Patient with Srinivasa Jhaveri [facility] 01/22/2022 Dysuria Medical Established Patient with Srinivasa Jhaveri [facility] 01/22/2022 Bipolar schizoaffective disorder BH Esta blished Patient with Ina Díaz [facility] 12/11/2021 Assessment of body mass inde x [Body mass index [BMI] 26.0-26.9, adult] Medical Established Patient with Srinivasa Jhaveri [facility] 12/11/2021 Bipolar schizoaffective disorder BH Esta blished Patient with Ina Arjun [facility] 11/25/2021 Anxiety disorder NOS Medical Established Patient with Traci Dennison [facility] 11/25/2021 Urinary tract infection Medical Establis hed Patient with Traci Dennison [facility] 11/25/2021 Z68.27 - Body mass index [BM I] 27.0-27.9, adult Medical Established Patient with Traci Dennison [facility] 11/25/2021 Anxiety disorder NOS Medical Established Patient with Traci Dennison [facility] 08/13/2021 Assessment of body mass index Medical Es tablished Patient with Traci Dennison [facility] 08/13/2021 Chronic gastritis without hemorrhage Med ical Established Patient with Traci Dennison [facility] 08/13/2021 Diverticulosis of intestine Medical Esta blished Patient with Traci Dennison [facility] 08/13/2021 Urinary tract infection Medical Establis hed Patient with Traci Dennison [facility] 08/13/2021 Anxiety disorder NOS Medical Established Patient with Traci Dennison [facility] 07/17/2021 Other hypothyroidism Medical Established Patient with Traci Dennison [facility] 07/17/2021 Upper respiratory infection Medical Esta blished Patient with Traci Dennison [facility] 07/17/2021 Visit for: routine adult H&P with abnormal findings Medical Established Patient with Traci Dennison [facility] 07/17/2021 Visit for: screening for lip oid disorders Medical Established Patient with Traci Dennison [facility] 07/17/2021 Vitamin B12 deficiency Medical Establish ed Patient with Traci Dennison [facility] 07/17/2021 Vitamin D deficiency Medical Established Patient with Traci Dennison [facility] 07/17/2021 Z68.28 - Body mass index [BM I] 28.0-28.9, adult Medical Established Patient with Traci Dennison [facility] 07/17/2021 Allergic rhinitis Telemedicine Establi sted Patient with Traci Dennison [facility] 07/16/2021 Exposure to COVID-19 Telemedicine Establ isted Patient with Traci Dennison [facility] 04/29/2021 Bipolar schizoaffective disorder BH Esta blished Patient with Farrah Jarrett [facility] 04/15/2021 Anxiety disorder NOS Medical Established Patient with Traci Dennison [facility] 04/15/2021 Assessment of body mass index Medical Es tablished Patient with Traci Dennison [facility] 04/15/2021 Bipolar disorder NOS Medical Established Patient with Traci Dennison [facility] 04/15/2021 Anxiety disorder NOS Telebehavioral H ealth [...] Medic al Established Patient with Traci Dennison [facility] 04/03/2021 Assessment of body mass index Medical Es tablished Patient with Traci Dennison [facility] 04/03/2021 Epilepsy, not intractable, w ithout status epilepticus Medical Established Patient with Traci Dennison [facility] 04/03/2021 Mixed affective bipolar diso rder, moderate Medical Established Patient with Traci Dennison [facility] 04/03/2021 Urinary tract infection Medical Establis hed Patient with Traci Dennison [facility] 04/03/2021 Visit for: screening for STD Medical Est ablished Patient with Traci Dennison [facility] 04/03/2021 Assessment of visit for: scr eening for human immunodeficiency virus Medical Established Patient with Peggy Thrasher [facility] 02/14/2021 Diabetes Risk Test Score was three score 02/14/2021 Medical Established Patient with Peggy Thrasher [facility] 02/14/2021 Diarrhea Medical Established Patient with Peggy Thrasher [facility] 02/14/2021 Nicotine dependence Medical Established Patient with Peggy Thrasher [facility] 02/14/2021 Z68.28 - Body mass index [BM I] 28.0-28.9, adult Medical Established Patient with Peggy Thrasher [facility] 02/14/2021 Cough Telemedicine Establi sted Patient with Traci Dennison [facility] 01/01/2021 Fever Telemedicine Establi sted Patient with Traci Dennison [facility] 01/01/2021 Z20.822 - Contact with and ( suspected) exposure to COVID-19 Telemedicine Establisted Patient with Traci Dennison [facility] 01/01/2021 Bipolar I disorder, most rec ent episode, depressed Established Patient with Farrah Jarrett [facility] 06/03/2020 Paranoid schizophrenia per p atient report Established Patient with Farrah Klinemons [facility] 06/03/2020 Post-traumatic stress disord er per patient report Established Patient with Farrah Klinemons [facility] 06/03/2020 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 Patient with Traci Dennison [facility] 06/03/2020 Overweight Medical Established Patient with Traci Dennison [facility] 06/03/2020 Z68.29 - Body mass index [BM I] 29.0-29.9, adult Medical Established Patient with Traci Dennison [facility] 06/03/2020 Anxiety disorder NOS Medical Established Patient with Traci Dennison [facility] 01/26/2020 Bipolar disorder NOS Medical Established Patient with Traci Dennison [facility] 01/26/2020 Infection of tooth Medical Established Patient with Traci Dennison [facility] 01/26/2020 Z68.20 - Body mass index [BM I] 20.0-20.9, adult Medical Established Patient with Traci Juma [facility] 01/26/2020 Bipolar I disorder, most rec ent episode, mixed BH Established Patient with Hannah Short [facility] 01/08/2020 Generalized anxiety disorder BH Establis hed Patient with Hannah Short [facility] 01/08/2020 Diabetes Risk Test Score was one score 01/08/2020 Medical Established Patient with Peggyisis Leoen [facility] 01/08/2020 Overweight Medical Established Patient with Peggy Anna Marie [facility] 01/08/2020 Z68.27 - Body mass index (BM I) 27.0-27.9, adult Medical Established Patient with Peggyisis Thrasher [facility] 01/08/2020 Bipolar I disorder, most rec ent episode, mixed Established Patient with Hannah Short [facility] 12/25/2019 Generalized anxiety disorder Establis hed Patient with Hannah Short [facility] 12/25/2019 Overweight Medical Established Patient with Peggyisis Thrasher [facility] 12/25/2019 Z68.26 - Body mass index (BM I) 26.0-26.9, adult Medical Established Patient with Peggyisis Thrasher [facility] 12/25/2019 [facility] Work Phone: 1(415) 772-606609-01-2022 Evaluation note Includes: Assessments for all patient encounters Findings Encounter Date Bipolar schizoaffective disorder BH Esta blished [facility] Watkins[facility] Assessment of body mass inde x [Body mass index [BMI] 26.0-26.9, adult] Medical Established Patient with Srinivasa Jhaveri [facility] 12/11/2021 Bipolar schizoaffective disorder BH Esta blished Patient with Inatameka WatkinsDíaz [facility] 11/25/2021 Anxiety disorder NOS Medical Established Patient with Traci Dennison [facility] 11/25/2021 Urinary tract infection Medical Establis hed Patient with Traci Dennison [facility] 11/25/2021 Z68.27 - Body mass index [BM I] 27.0-27.9, adult Medical Established Patient with Traci Juma [facility] 11/25/2021 Anxiety disorder NOS Medical Established Patient with Traci Dennison [facility] 08/13/2021 Assessment of body mass index Medical Es tablished Patient with Traci Dennison [facility] 08/13/2021 Chronic gastritis without hemorrhage Med ical Established Patient with Traci Dennison [facility] 08/13/2021 Diverticulosis of intestine Medical Esta blished Patient with Traci Dennison [facility] 08/13/2021 Urinary tract infection Medical Establis hed Patient with Traci Dennison [facility] 08/13/2021 Anxiety disorder NOS Medical Established Patient with Traci Dennison [facility] 07/17/2021 Other hypothyroidism Medical Established Patient with Traci Dennison [facility] 07/17/2021 Upper respiratory infection Medical Esta blished Patient with Traci Dennison [facility] 07/17/2021 Visit for: routine adult H&P with abnormal findings Medical Established Patient with Traci Dennison [facility] 07/17/2021 Visit for: screening for lip oid disorders Medical Established Patient with Traci Dennison [facility] 07/17/2021 Vitamin B12 deficiency Medical Establish ed Patient with Traci Dennison [facility] 07/17/2021 Vitamin D deficiency Medical Established Patient with Traci Dennison [facility] 07/17/2021 Z68.28 - Body mass index [BM I] 28.0-28.9, adult Medical Established Patient with Traci Dennison [facility] 07/17/2021 Allergic rhinitis Telemedicine Establi sted Patient with Traci Dennison [facility] 07/16/2021 Exposure to COVID-19 Telemedicine Establ isted Patient with Traci Dennison [facility] 04/29/2021 Bipolar schizoaffective disorder BH Esta blished Patient with Farrah Jarrett [facility] 04/15/2021 Anxiety disorder NOS Medical Established Patient with Traci Dennison [facility] 04/15/2021 Assessment of body mass index Medical Es tablished Patient with Traci Dennison [facility] 04/15/2021 Bipolar disorder NOS Medical Established Patient with Traci Dennison [facility] 04/15/2021 Anxiety disorder NOS Telebehavioral H ealth [...] Medic al Established Patient with Traci Dennison [facility] 04/03/2021 Assessment of body mass index Medical Es tablished Patient with Traci Dennison [facility] 04/03/2021 Epilepsy, not intractable, w ithout status epilepticus Medical Established Patient with Traci Dennison [facility] 04/03/2021 Mixed affective bipolar diso rder, moderate Medical Established Patient with Traci Dennison [facility] 04/03/2021 Urinary tract infection Medical Establis hed Patient with Traci Dennison [facility] 04/03/2021 Visit for: screening for STD Medical Est ablished Patient with Traci Dennison [facility] 04/03/2021 Assessment of visit for: scr eening for human immunodeficiency virus Medical Established Patient with Peggy Thrasher [facility] 02/14/2021 Diabetes Risk Test Score was three score 02/14/2021 Medical Established Patient with Peggy Thrasher [facility] 02/14/2021 Diarrhea Medical Established Patient with Peggy Thrasher [facility] 02/14/2021 Nicotine dependence Medical Established Patient with Peggy Thrasher [facility] 02/14/2021 Z68.28 - Body mass index [BM I] 28.0-28.9, adult Medical Established Patient with Peggy Thrasher [facility] 02/14/2021 Cough Telemedicine Establi sted Patient with Traci Dennison [facility] 01/01/2021 Fever Telemedicine Establi sted Patient with Traci Dennison [facility] 01/01/2021 Z20.822 - Contact with and ( suspected) exposure to COVID-19 Telemedicine Establisted Patient with Traci Dennison [facility] 01/01/2021 Bipolar I disorder, most rec ent episode, depressed Established Patient with Farrah Jarrett [facility] 06/03/2020 Paranoid schizophrenia per p atient report Established Patient with Farrah Jarrett [facility] 06/03/2020 Post-traumatic stress disord er per patient report Established Patient with Far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 Patient with Traci Dennison [facility] 06/03/2020 Overweight Medical Established Patient with Traci Dennison [facility] 06/03/2020 Z68.29 - Body mass index [BM I] 29.0-29.9, adult Medical Established Patient with Traci Dennison [facility] 06/03/2020 Anxiety disorder NOS Medical Established Patient with Traci Dennison [facility] 01/26/2020 Bipolar disorder NOS Medical Established Patient with Traci Dennison [facility] 01/26/2020 Infection of tooth Medical Established Patient with Traci Dennison [facility] 01/26/2020 Z68.20 - Body mass index [BM I] 20.0-20.9, adult Medical Established Patient with Traci Dennison [facility] 01/26/2020 Bipolar I disorder, most rec ent episode, mixed Established Patient with Hananh Short [facility] 01/08/2020 Generalized anxiety disorder BH Establis hed Patient with Hannah Short [facility] 01/08/2020 Diabetes Risk Test Score was one score 01/08/2020 Medical Established Patient with Peggy Thrasher [facility] 01/08/2020 Overweight Medical Established Patient with Peggy Leoen [facility] 01/08/2020 Z68.27 - Body mass index (BM I) 27.0-27.9, adult Medical Established Patient with Peggy Thrasher [facility] 01/08/2020 Bipolar I disorder, most rec ent episode, mixed Established Patient with Hannah Short [facility] 12/25/2019 Generalized anxiety disorder BH Establis hed Patient with Hannah Short [facility] 12/25/2019 Overweight Medical Established Patient with Peggy Thrasher [facility] 12/25/2019 Z68.26 - Body mass index (BM I) 26.0-26.9, adult Medical Established Patient with Peggy Thrasher [facility] 12/25/2019 [facility] Work Phone: [phone]) 294-777508-16-2022 Evaluation note Includes: Assessments for all patient encounters Findings Encounter Date Assessment of body mass inde x [Body mass index [BMI] 26.0-26.9, adult] Medical Established Patient with Srinivasa Jhaveri [facility] 12/11/2021 Bipolar schizoaffective disorder BH Esta blished Patient with Ina Díaz [facility] 11/25/2021 Anxiety disorder NOS Medical Established Patient with Traci Juma [facility] 11/25/2021 Urinary tract infection Medical Establis hed Patient with Traci Dennison [facility] 11/25/2021 Z68.27 - Body mass index [BM I] 27.0-27.9, adult Medical Established Patient with Traci Juma [facility] 11/25/2021 Anxiety disorder NOS Medical Established Patient with Traci Juma [facility] 08/13/2021 Assessment of body mass index Medical Es tablished Patient with Traci Dennison [facility] 08/13/2021 Chronic gastritis without hemorrhage Med ical Established Patient with Traci Dennison [facility] 08/13/2021 Diverticulosis of intestine Medical Esta blished Patient with Traci Dennison [facility] 08/13/2021 Urinary tract infection Medical Establis hed Patient with Traci Dennison [facility] 08/13/2021 Anxiety disorder NOS Medical Established Patient with Traci Dennison [facility] 07/17/2021 Other hypothyroidism Medical Established Patient with Traci Dennison [facility] 07/17/2021 Upper respiratory infection Medical Esta blished Patient with Traci Dennison [facility] 07/17/2021 Visit for: routine adult H&P with abnormal findings Medical Established Patient with Traci Dennison [facility] 07/17/2021 Visit for: screening for lip oid disorders Medical Established Patient with Traci Dennison [facility] 07/17/2021 Vitamin B12 deficiency Medical Establish ed Patient with Traci Dennison [facility] 07/17/2021 Vitamin D deficiency Medical Established Patient with Traci Dennison [facility] 07/17/2021 Z68.28 - Body mass index [BM I] 28.0-28.9, adult Medical Established Patient with Traci Dennison [facility] 07/17/2021 Allergic rhinitis Telemedicine Establi sted Patient with Traci Dennison [facility] 07/16/2021 Exposure to COVID-19 Telemedicine Establ isted Patient with Traci Dennison [facility] 04/29/2021 Bipolar schizoaffective disorder BH Esta blished Patient with Farrah Jarrett [facility] 04/15/2021 Anxiety disorder NOS Medical Established Patient with Traci Dennison [facility] 04/15/2021 Assessment of body mass index Medical Es tablished Patient with Traci Dennison [facility] 04/15/2021 Bipolar disorder NOS Medical Established Patient with Traci Dennison [facility] 04/15/2021 Anxiety disorder NOS Telebehavioral H ealth [...] dependence Established Patie nt with Hannah Short [facility] 04/03/2021 Undifferentiated schizophren ia per patient reported history Established Patient with Hannah Short [facility] 04/03/2021 A home test was negative Medic al Established Patient with Traci Dennison [facility] 04/03/2021 Assessment of body mass index Medical Es tablished Patient with Traci Dennison [facility] 04/03/2021 Epilepsy, not intractable, w ithout status epilepticus Medical Established Patient with Traci Dennison [facility] 04/03/2021 Mixed affective bipolar diso rder, moderate Medical Established Patient with Traci Dennison [facility] 04/03/2021 Urinary tract infection Medical Establis hed Patient with Traci Dennison [facility] 04/03/2021 Visit for: screening for STD Medical Est ablished Patient with Traci Dennison [facility] 04/03/2021 Assessment of visit for: scr eening for human immunodeficiency virus Medical Established Patient with Peggy Thrasher [facility] 02/14/2021 Diabetes Risk Test Score was three score 02/14/2021 Medical Established Patient with Peggy Thrasher [facility] 02/14/2021 Diarrhea Medical Established Patient with Peggy Thrasher [facility] 02/14/2021 Nicotine dependence Medical Established Patient with Peggy Thrasher [facility] 02/14/2021 Z68.28 - Body mass index [BM I] 28.0-28.9, adult Medical Established Patient with Peggy Thrasher [facility] 02/14/2021 Cough Telemedicine Establi sted Patient with Traci Dennison [facility] 01/01/2021 Fever Telemedicine Establi sted Patient with Traci Dennison [facility] 01/01/2021 Z20.822 - Contact with and ( suspected) exposure to COVID-19 Telemedicine Establisted Patient with Traci Dennison [facility] 01/01/2021 Bipolar I disorder, most rec ent episode, depressed Established Patient with Farrahmatthew Jarrett [facility] 06/03/2020 Paranoid schizophrenia per p atient report Established Patient with Farrah Jarrett [facility] 06/03/2020 Post-traumatic stress disord er per patient report Established Patient with Farrah Jarrett [facility] 06/03/2020 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 Patient with Traci Dennison [facility] 06/03/2020 Overweight Medical Established Patient with Traci Dennison [facility] 06/03/2020 Z68.29 - Body mass index [BM I] 29.0-29.9, adult Medical Established Patient with Traci Dennison [facility] 06/03/2020 Anxiety disorder NOS Medical Established Patient with Traci Dennison [facility] 01/26/2020 Bipolar disorder NOS Medical Established Patient with Traci Dennison [facility] 01/26/2020 Infection of tooth Medical Established Patient with Traci Dennison [facility] 01/26/2020 Z68.20 - Body mass index [BM I] 20.0-20.9, adult Medical Established Patient with Traci Dennison [facility] 01/26/2020 Bipolar I disorder, most rec ent episode, mixed Established Patient with Hannah Short [facility] 01/08/2020 Generalized anxiety disorder Establis hed Patient with Hannah Short [facility] 01/08/2020 Diabetes Risk Test Score was one score 01/08/2020 Medical Established Patient with Peggy Thrasher [facility] 01/08/2020 Overweight Medical Established Patient with Peggyisis Leoen [facility] 01/08/2020 Z68.27 - Body mass index (BM I) 27.0-27.9, adult Medical Established Patient with Peggy Thrasher [facility] 01/08/2020 Bipolar I disorder, most rec ent episode, mixed Established Patient with Hannah Short [facility] 12/25/2019 Generalized anxiety disorder Establis hed Patient with Hannah Short [facility] 12/25/2019 Overweight Medical Established Patient with Peggy Thrasher [facility] 12/25/2019 Z68.26 - Body mass index (BM I) 26.0-26.9, adult Medical Established Patient with Peggy Thrasher [facility] 12/25/2019 [facility] Work Phone: [phone]) 271-803608-16-2022 Reason for referral (narrative)* Date Encounter Description Provider Reason for Referral 11/25/21 Medical Established Patient Traci Pérez damion [facility] Referral To Mental Health Team 07/17/21 Medical Established Patient Traci Pérez damion [facility] Referral To Mental Health Team 06/03/20 Established Patient Farrah Jarrett [facility] Referral To Mental Health Team - [facility] conducted screen and discussed patient's responses w/her. [facility] Work Phone: [phone]) 967-863508-03-2022 Hospital Discharge instructions* Discharge Instructions* Myrtle Bergeron DO - 11/12/2021 12:00 PM EDT Recommend staying on a liquid diet for the next 24 to 48 hours until the diarrhea improves. Then advance diet as tolerated. * Attachments The following attachments cannot be sent through Care Everywhere. * Gastroenteritis ([place]) [facility] Phone: [phone]) 390-786205-23-2022 Hospital Discharge instructions* Instructions* Natan Bravo PA-C - 09/01/2021 Follow-up with GC and chlamydia STD results in the next 3 to 5 days. Return to the emergency room for any worsening symptoms. Follow-up with your primary care provider in the next week. * Attachments The following attachments cannot be sent through Care Everywhere. * Folliculitis ([place]ermudian) * STI ([place]udian) [facility] Phone: 1(578) 992-830705-04-2022 Evaluation note Includes: Assessments for all patient encounters Findings Encounter Date Anxiety disorder NOS Medical Established Patient with Traci Dennison [facility] 08/13/2021 Assessment of body mass index Medical Es tablished Patient with Traci Dennison [facility] 08/13/2021 Chronic gastritis without hemorrhage Med ical Established Patient with Traci Dennison [facility] 08/13/2021 Diverticulosis of intestine Medical Esta blished Patient with Traci Dennison [facility] 08/13/2021 Urinary tract infection Medical Establis hed Patient with Traci Dennison [facility] 08/13/2021 Anxiety disorder NOS Medical Established Patient with Traci Juma [facility] 07/17/2021 Other hypothyroidism Medical Established Patient with Traci Dennison [facility] 07/17/2021 Upper respiratory infection Medical Esta blished Patient with Traci Dennison [facility] 07/17/2021 Visit for: routine adult H&P with abnormal findings Medical Established Patient with Traci Dennison [facility] 07/17/2021 Visit for: screening for lip oid disorders Medical Established Patient with Traci Dennison [facility] 07/17/2021 Vitamin B12 deficiency Medical Establish ed Patient with Traci Juma [facility] 07/17/2021 Vitamin D deficiency Medical Established Patient with Traci Dennison [facility] 07/17/2021 Z68.28 - Body mass index [BM I] 28.0-28.9, adult Medical Established Patient with Tracizachery Dennison [facility] 07/17/2021 Allergic rhinitis Telemedicine Establi sted Patient with Traci Dennison [facility] 07/16/2021 Exposure to COVID-19 Telemedicine Establ isted Patient with Traci Dennison [facility] 04/29/2021 Bipolar schizoaffective disorder Esta blished Patient with Frarah Jarrett [facility] 04/15/2021 Anxiety disorder NOS Medical Established Patient with Traci Dennison [facility] 04/15/2021 Assessment of body mass index Medical Es tablished Patient with Traci Dennison [facility] 04/15/2021 Bipolar disorder NOS Medical Established Patient with Traci Dennison [facility] 04/15/2021 Anxiety disorder NOS Telebehavioral H ealth [...] Medic al Established Patient with Traci Dennison [facility] 04/03/2021 Assessment of body mass index Medical Es tablished Patient with Traci Dennison [facility] 04/03/2021 Epilepsy, not intractable, w ithout status epilepticus Medical Established Patient with Traci Dennison [facility] 04/03/2021 Mixed affective bipolar diso rder, moderate Medical Established Patient with Traci Dennison [facility] 04/03/2021 Urinary tract infection Medical Establis hed Patient with Traci Dennison [facility] 04/03/2021 Visit for: screening for STD Medical Est ablished Patient with Traci Dennison [facility] 04/03/2021 Assessment of visit for: scr eening for human immunodeficiency virus Medical Established Patient with Peggy Thrasher [facility] 02/14/2021 Diabetes Risk Test Score was three score 02/14/2021 Medical Established Patient with Peggy Thrasher [facility] 02/14/2021 Diarrhea Medical Established Patient with Peggy Thrasher [facility] 02/14/2021 Nicotine dependence Medical Established Patient with Peggy Thrasher [facility] 02/14/2021 Z68.28 - Body mass index [BM I] 28.0-28.9, adult Medical Established Patient with Peggy Thrasher [facility] 02/14/2021 Cough Telemedicine Establi sted Patient with Traci Dennison [facility] 01/01/2021 Fever Telemedicine Establi sted Patient with Traci Dennison [facility] 01/01/2021 Z20.822 - Contact with and ( suspected) exposure to COVID-19 Telemedicine Establisted Patient with Traci Dennison [facility] 01/01/2021 Bipolar I disorder, most rec ent episode, depressed Established Patient with Farrah Klinemons [facility] 06/03/2020 Paranoid schizophrenia per p atient report Established Patient with Farrah Hernandezs [facility] 06/03/2020 Post-traumatic stress disord er per patient report Established Patient with Farrah Hernandezs [facility] 06/03/2020 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 Patient with Traci Dennison [facility] 06/03/2020 Overweight Medical Established Patient with Traci Dennison [facility] 06/03/2020 Z68.29 - Body mass index [BM I] 29.0-29.9, adult Medical Established Patient with Traci Dennison [facility] 06/03/2020 Anxiety disorder NOS Medical Established Patient with Traci Dennison [facility] 01/26/2020 Bipolar disorder NOS Medical Established Patient with Traci Dennison [facility] 01/26/2020 Infection of tooth Medical Established Patient with Traci Dennison [facility] 01/26/2020 Z68.20 - Body mass index [BM I] 20.0-20.9, adult Medical Established Patient with Traci Dennison [facility] 01/26/2020 Bipolar I disorder, most rec ent episode, mixed Established Patient with Hannah Short [facility] 01/08/2020 Generalized anxiety disorder Establis hed Patient with Hannah Short [facility] 01/08/2020 Diabetes Risk Test Score was one score 01/08/2020 Medical Established Patient with Peggy Leoen [facility] 01/08/2020 Overweight Medical Established Patient with Peggy Thrasher [facility] 01/08/2020 Z68.27 - Body mass index (BM I) 27.0-27.9, adult Medical Established Patient with Peggy Anna Marie [facility] 01/08/2020 Bipolar I disorder, most rec ent episode, mixed Established Patient with Hannah Short [facility] 12/25/2019 Generalized anxiety disorder BH Establis hed Patient with Hannah Short [facility] 12/25/2019 Overweight Medical Established Patient with Peggy Thrasher [facility] 12/25/2019 Z68.26 - Body mass index (BM I) 26.0-26.9, adult Medical Established Patient with Peggy Thrasher [facility] 12/25/2019 [facility] Work Phone: 1(192) 529-894604-07-2022 Evaluation note Includes: Assessments for all patient encounters Findings Encounter Date Anxiety disorder NOS Medical Established Patient with Traci Dennison [facility] 07/17/2021 Other hypothyroidism Medical Established Patient with Traci Dennison [facility] 07/17/2021 Upper respiratory infection Medical Esta blished Patient with Traci Dennison [facility] 07/17/2021 Visit for: routine adult H&P with abnormal findings Medical Established Patient with Traci Dennison [facility] 07/17/2021 Visit for: screening for lip oid disorders Medical Established Patient with Tracizachery Dennison [facility] 07/17/2021 Vitamin B12 deficiency Medical Establish ed Patient with Traci Dennison [facility] 07/17/2021 Vitamin D deficiency Medical Established Patient with Traci Dennison [facility] 07/17/2021 Z68.28 - Body mass index [BM I] 28.0-28.9, adult Medical Established Patient with Traci Dennison [facility] 07/17/2021 Allergic rhinitis Telemedicine Establi sted Patient with Traci Dennison [facility] 07/16/2021 Exposure to COVID-19 Telemedicine Establ isted Patient with Traci Dennison [facility] 04/29/2021 Bipolar schizoaffective disorder BH Esta blished Patient with Farrah Jarrett [facility] 04/15/2021 Anxiety disorder NOS Medical Established Patient with Tracizachery Dennison [facility] 04/15/2021 Assessment of body mass index Medical Es tablished Patient with Traci Juma [facility] 04/15/2021 Bipolar disorder NOS Medical Established Patient with Traci Juma [facility] 04/15/2021 Anxiety disorder NOS Telebehavioral H ealth [...] Medic al Established Patient with Traci Dennison [facility] 04/03/2021 Assessment of body mass index Medical Es tablished Patient with Traci Dennison [facility] 04/03/2021 Epilepsy, not intractable, w ithout status epilepticus Medical Established Patient with Traci Dennison [facility] 04/03/2021 Mixed affective bipolar diso rder, moderate Medical Established Patient with Traci Dennison [facility] 04/03/2021 Urinary tract infection Medical Establis hed Patient with Traci Dennison [facility] 04/03/2021 Visit for: screening for STD Medical Est ablished Patient with Traci Dennison [facility] 04/03/2021 Assessment of visit for: scr eening for human immunodeficiency virus Medical Established Patient with Peggy Thrasher [facility] 02/14/2021 Diabetes Risk Test Score was three score 02/14/2021 Medical Established Patient with Peggy Thrasher [facility] 02/14/2021 Diarrhea Medical Established Patient with Peggy Thrasher [facility] 02/14/2021 Nicotine dependence Medical Established Patient with Peggy Thrasher [facility] 02/14/2021 Z68.28 - Body mass index [BM I] 28.0-28.9, adult Medical Established Patient with Peggy Thrasher [facility] 02/14/2021 Cough Telemedicine Establi sted Patient with Traci Dennison [facility] 01/01/2021 Fever Telemedicine Establi sted Patient with Traci Dennison [facility] 01/01/2021 Z20.822 - Contact with and ( suspected) exposure to COVID-19 Telemedicine Establisted Patient with Traci Dennison [facility] 01/01/2021 Bipolar I disorder, most rec ent episode, depressed Established Patient with Farrahmatthew Jarrett [facility] 06/03/2020 Paranoid schizophrenia per p atient report Established Patient with Farrahmatthew Hernandezs [facility] 06/03/2020 Post-traumatic stress disord er per patient report Established Patient with Farrah Jarrett [facility] 06/03/2020 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 Patient with Traci Dennison [facility] 06/03/2020 Overweight Medical Established Patient with Traci Dennison [facility] 06/03/2020 Z68.29 - Body mass index [BM I] 29.0-29.9, adult Medical Established Patient with Traci Dennison [facility] 06/03/2020 Anxiety disorder NOS Medical Established Patient with Traci Dennison [facility] 01/26/2020 Bipolar disorder NOS Medical Established Patient with Traci Dennison [facility] 01/26/2020 Infection of tooth Medical Established Patient with Traci Dennison [facility] 01/26/2020 Z68.20 - Body mass index [BM I] 20.0-20.9, adult Medical Established Patient with Traci Dennison [facility] 01/26/2020 Bipolar I disorder, most rec ent episode, mixed Established Patient with Hannah Short [facility] 01/08/2020 Generalized anxiety disorder Establis hed Patient with Hannah Short [facility] 01/08/2020 Diabetes Risk Test Score was one score 01/08/2020 Medical Established Patient with Peggy Thrasher [facility] 01/08/2020 Overweight Medical Established Patient with Peggyisis Leoen [facility] 01/08/2020 Z68.27 - Body mass index (BM I) 27.0-27.9, adult Medical Established Patient with Peggy Anna Marie [facility] 01/08/2020 Bipolar I disorder, most rec ent episode, mixed Established Patient with Hannah Short [facility] 12/25/2019 Generalized anxiety disorder Establis hed Patient with Hannah Short [facility] 12/25/2019 Overweight Medical Established Patient with Peggy Anna Marie [facility] 12/25/2019 Z68.26 - Body mass index (BM I) 26.0-26.9, adult Medical Established Patient with Peggyisis Thrasher [facility] 12/25/2019 [facility] Work Phone: 1(170) 938-524704-07-2022 History general Narrative - Reported Includes: Medical [...] of psychiatric disorders 020 [facility] Work Phone: 1(748) 633-979104-06-2022 Evaluation note Includes: Assessments for all patient encounters Findings Encounter Date Allergic rhinitis Telemedicine Establi sted Patient with Traci Dennison [facility] 07/16/2021 Exposure to COVID-19 Telemedicine Establ isted Patient with Traci Dennison [facility] 04/29/2021 Bipolar schizoaffective disorder BH Esta blished Patient with Farrah Jarrett [facility] 04/15/2021 Anxiety disorder NOS Medical Established Patient with Traci Dennison [facility] 04/15/2021 Assessment of body mass index Medical Es tablished Patient with Traci Dennison [facility] 04/15/2021 Bipolar disorder NOS Medical Established Patient with Traci Dennison [facility] 04/15/2021 Anxiety disorder NOS Telebehavioral H ealth with Farrah Jarrtet [facility] 04/09/2021 Bipolar disorder NOS Telebehavioral H [...] Medic al Established Patient with Traci Dennison [facility] 04/03/2021 Assessment of body mass index Medical Es tablished Patient with Traci Dennison [facility] 04/03/2021 Epilepsy, not intractable, w ithout status epilepticus Medical Established Patient with Traci Dennison [facility] 04/03/2021 Mixed affective bipolar diso rder, moderate Medical Established Patient with Traci Dennison [facility] 04/03/2021 Urinary tract infection Medical Establis hed Patient with Traci Dennison [facility] 04/03/2021 Visit for: screening for STD Medical Est ablished Patient with Traci Dennison [facility] 04/03/2021 Assessment of visit for: scr eening for human immunodeficiency virus Medical Established Patient with Peggy Thrasher [facility] 02/14/2021 Diabetes Risk Test Score was three score 02/14/2021 Medical Established Patient with Peggy Thrasher [facility] 02/14/2021 Diarrhea Medical Established Patient with Peggy Thrasher [facility] 02/14/2021 Nicotine dependence Medical Established Patient with Peggy Thrasher [facility] 02/14/2021 Z68.28 - Body mass index [BM I] 28.0-28.9, adult Medical Established Patient with Peggy Thrasher [facility] 02/14/2021 Cough Telemedicine Establi sted Patient with Traci Dennison [facility] 01/01/2021 Fever Telemedicine Establi sted Patient with Traci Dennison [facility] 01/01/2021 Z20.822 - Contact with and ( suspected) exposure to COVID-19 Telemedicine Establisted Patient with Traci Dennison [facility] 01/01/2021 Bipolar I disorder, most rec ent episode, depressed Established Patient with Farrahmatthew Klinemons [facility] 06/03/2020 Paranoid schizophrenia per p atient report Established Patient with Farrah Jarrett [facility] 06/03/2020 Post-traumatic stress disord er per patient report Established Patient with Farrah Jarrett [facility] 06/03/2020 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 Patient with Traci Dennison [facility] 06/03/2020 Overweight Medical Established Patient with Traci Dennison [facility] 06/03/2020 Z68.29 - Body mass index [BM I] 29.0-29.9, adult Medical Established Patient with Traci Dennison [facility] 06/03/2020 Anxiety disorder NOS Medical Established Patient with Traci Dennison [facility] 01/26/2020 Bipolar disorder NOS Medical Established Patient with Traci Dennison [facility] 01/26/2020 Infection of tooth Medical Established Patient with Tracizachery Dennison [facility] 01/26/2020 Z68.20 - Body mass index [BM I] 20.0-20.9, adult Medical Established Patient with Traci Dennison [facility] 01/26/2020 Bipolar I disorder, most rec ent episode, mixed Established Patient with Hannah Short [facility] 01/08/2020 Generalized anxiety disorder Establis hed Patient with Hannah Short [facility] 01/08/2020 Diabetes Risk Test Score was one score 01/08/2020 Medical Established Patient with Peggy Anna Marie [facility] 01/08/2020 Overweight Medical Established Patient with Peggy Thrasher [facility] 01/08/2020 Z68.27 - Body mass index (BM I) 27.0-27.9, adult Medical Established Patient with Peggy Thrasher [facility] 01/08/2020 Bipolar I disorder, most rec ent episode, mixed Established Patient with Hannah Short [facility] 12/25/2019 Generalized anxiety disorder Establis hed Patient with Hannah Short [facility] 12/25/2019 Overweight Medical Established Patient with Peggy Thrasher [facility] 12/25/2019 Z68.26 - Body mass index (BM I) 26.0-26.9, adult Medical Established Patient with Peggy Thrasher [facility] 12/25/2019 [facility] Work Phone: 1(371) 138-626503-24-2022 Hospital Discharge instructions* Instructions* Darren House MD [...] sent through Care Everywhere. * [facility](897) 903-132601-18-2022 Evaluation note Includes: Assessments for all patient encounters Findings Encounter Date Exposure to [place]-19 Telemedicine Establ isted Patient with Traci Juma [facility] 04/29/2021 Bipolar schizoaffective disorder Esta blished Patient with Farrah Jarrett [facility] 04/15/2021 Anxiety disorder NOS Medical Established Patient with Traci Juma [facility] 04/15/2021 Assessment of body mass index Medical Es tablished Patient with Traci Dennison [facility] 04/15/2021 Bipolar disorder NOS Medical Established Patient with Traci Dennison [facility] 04/15/2021 Anxiety disorder NOS BH Established Melanie ent with Hannah Short [facility] 04/03/2021 Bipolar I disorder, most rec ent episode, depressed Established Patient with Hannah Short [facility] 04/03/2021 Nicotine dependence Established Patie nt with Hannah Short [facility] 04/03/2021 Nicotine dependence Established Patie nt with Hannah Short [facility] 04/03/2021 Undifferentiated schizophren ia per patient reported history Established Patient with Hannah Rivera [facility] 04/03/2021 A home test was negative Medic al Established Patient with Traci Dennison [facility] 04/03/2021 Assessment of body mass index Medical Es tablished Patient with Traci Dennison [facility] 04/03/2021 Epilepsy, not intractable, w ithout status epilepticus Medical Established Patient with Traci Dennison [facility] 04/03/2021 Mixed affective bipolar diso rder, moderate Medical Established Patient with Traci Dennison [facility] 04/03/2021 Urinary tract infection Medical Establis hed Patient with Traci Dennison [facility] 04/03/2021 Visit for: screening for STD Medical Est ablished Patient with Traci Dennison [facility] 04/03/2021 Assessment of visit for: scr eening for human immunodeficiency virus Medical Established Patient with Peggy Thrasher [facility] 02/14/2021 Diabetes Risk Test Score was three score 02/14/2021 Medical Established Patient with Peggy Thrasher [facility] 02/14/2021 Diarrhea Medical Established Patient with Peggy Thrasher [facility] 02/14/2021 Nicotine dependence Medical Established Patient with Peggy Thrasher [facility] 02/14/2021 Z68.28 - Body mass index [BM I] 28.0-28.9, adult Medical Established Patient with Peggy Thrasher [facility] 02/14/2021 Cough Telemedicine Establi sted Patient with Traci Dennison [facility] 01/01/2021 Fever Telemedicine Establi sted Patient with Traci Dennison [facility] 01/01/2021 Z20.822 - Contact with and ( suspected) exposure to COVID-19 Telemedicine Establisted Patient with Traci Dennison [facility] 01/01/2021 Bipolar I disorder, most rec ent episode, depressed Established Patient with Farrahmatthew Jarrett [facility] 06/03/2020 Paranoid schizophrenia per p atient report Established Patient with Farrah Jarrett [facility] 06/03/2020 Post-traumatic stress disord er per patient report Established Patient 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 Patient with Traci Dennison [facility] 06/03/2020 Overweight Medical Established Patient with Traci Dennison [facility] 06/03/2020 Z68.29 - Body mass index [BM I] 29.0-29.9, adult Medical Established Patient with Traci Dennison [facility] 06/03/2020 Anxiety disorder NOS Medical Established Patient with Tracizachery Dennison [facility] 01/26/2020 Bipolar disorder NOS Medical Established Patient with Tracizachery Dennison [facility] 01/26/2020 Infection of tooth Medical Established Patient with Tracizachery Dennison [facility] 01/26/2020 Z68.20 - Body mass index [BM I] 20.0-20.9, adult Medical Established Patient with Traci Dennison [facility] 01/26/2020 Bipolar I disorder, most rec ent episode, mixed Established Patient with Hannah Short [facility] 01/08/2020 Generalized anxiety disorder Establis hed Patient with Hannah Short [facility] 01/08/2020 Diabetes Risk Test Score was one score 01/08/2020 Medical Established Patient with Peggyisis Thrasher [facility] 01/08/2020 Overweight Medical Established Patient with Peggy Anna Marie [facility] 01/08/2020 Z68.27 - Body mass index (BM I) 27.0-27.9, adult Medical Established Patient with Peggy Anna Marie [facility] 01/08/2020 Bipolar I disorder, most rec ent episode, mixed Established Patient with Hannah Short [facility] 12/25/2019 Generalized anxiety disorder Establis hed Patient with Hannah Short [facility] 12/25/2019 Overweight Medical Established Patient with Peggy Anna Marie [facility] 12/25/2019 Z68.26 - Body mass index (BM I) 26.0-26.9, adult Medical Established Patient with Peggy Anna Marie [facility] 12/25/2019 [facility] Work Phone: 1(958) 424-440701-18-2022 Evaluation note Includes: Assessments for all patient encounters Findings Encounter Date Exposure to COVID-19 Telemedicine Establ isted Patient with Traci Dennison [facility] 04/29/2021 Bipolar schizoaffective disorder BH Esta blished Patient with Farrah Jarrett [facility] 04/15/2021 Anxiety disorder NOS Medical Established Patient with Traci Dennison [facility] 04/15/2021 Assessment of body mass index Medical Es tablished Patient with Traci Dennison [facility] 04/15/2021 Bipolar disorder NOS Medical Established Patient with Tracizachery Dennison [facility] 04/15/2021 Anxiety disorder NOS Telebehavioral H ealth [...] Medic al Established Patient with Traci Dennison [facility] 04/03/2021 Assessment of body mass index Medical Es tablished Patient with Traci Dennison [facility] 04/03/2021 Epilepsy, not intractable, w ithout status epilepticus Medical Established Patient with Traci Dennison [facility] 04/03/2021 Mixed affective bipolar diso rder, moderate Medical Established Patient with Traci Dennison [facility] 04/03/2021 Urinary tract infection Medical Establis hed Patient with Traci Dennison [facility] 04/03/2021 Visit for: screening for STD Medical Est ablished Patient with Traci Dennison [facility] 04/03/2021 Assessment of visit for: scr eening for human immunodeficiency virus Medical Established Patient with Peggy Thrasher [facility] 02/14/2021 Diabetes Risk Test Score was three score 02/14/2021 Medical Established Patient with Peggy Thrasher [facility] 02/14/2021 Diarrhea Medical Established Patient with Peggy Thrasher [facility] 02/14/2021 Nicotine dependence Medical Established Patient with Peggy Thrasher [facility] 02/14/2021 Z68.28 - Body mass index [BM I] 28.0-28.9, adult Medical Established Patient with Peggy Thrasher [facility] 02/14/2021 Cough Telemedicine Establi sted Patient with Traci Dennison [facility] 01/01/2021 Fever Telemedicine Establi sted Patient with Traci Dennison [facility] 01/01/2021 Z20.822 - Contact with and ( suspected) exposure to COVID-19 Telemedicine Establisted Patient with Traci Dennison [facility] 01/01/2021 Bipolar I disorder, most rec ent episode, depressed Established Patient with Farrah Jarrett [facility] 06/03/2020 Paranoid schizophrenia per p atient report Established Patient with Farrah Jarrett [facility] 06/03/2020 Post-traumatic stress disord er per patient report Established Patient with Far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 Patient with Traci Dennison [facility] 06/03/2020 Overweight Medical Established Patient with Traci Dennison [facility] 06/03/2020 Z68.29 - Body mass index [BM I] 29.0-29.9, adult Medical Established Patient with Traci Dennison [facility] 06/03/2020 Anxiety disorder NOS Medical Established Patient with Traci Dennison [facility] 01/26/2020 Bipolar disorder NOS Medical Established Patient with Traci Dennison [facility] 01/26/2020 Infection of tooth Medical Established Patient [facility] Tr[facility]ison [facility] [facility] 01/26/2020 Z68.20 - Body mass index [BM I] 20.0-20.9, adult Medical Established Patient with Traci Dennison [facility] 01/26/2020 Bipolar I disorder, most rec ent episode, mixed Established Patient with Hannah Short [facility] 01/08/2020 Generalized anxiety disorder Establis hed Patient with Hannah Short [facility] 01/08/2020 Diabetes Risk Test Score was one score 01/08/2020 Medical Established Patient with Peggyisis Leoen [facility] 01/08/2020 Overweight Medical Established Patient with Peggy Anna Marie [facility] 01/08/2020 Z68.27 - Body mass index (BM I) 27.0-27.9, adult Medical Established Patient with Peggy Anna Marie [facility] 01/08/2020 Bipolar I disorder, most rec ent episode, mixed Established Patient with Hannah Short [facility] 12/25/2019 Generalized anxiety disorder Establis hed Patient with Hannah Short [facility] 12/25/2019 Overweight Medical Established Patient with Peggy Anna Marie [facility] 12/25/2019 Z68.26 - Body mass index (BM I) 26.0-26.9, adult Medical Established Patient with Peggy Anna Marie [facility] 12/25/2019 [facility] Work Phone: 1(597) 129-623401-04-2022 Evaluation note Includes: Assessments for all patient encounters Findings Encounter Date Bipolar schizoaffective disorder Esta blished [facility] Anxiety disorder NOS Medical Established Patient with Traci Dennison [facility] 04/15/2021 Assessment of body mass index Medical Es tablished Patient with Traci Dennison [facility] 04/15/2021 Bipolar disorder NOS Medical Established Patient with Traci Dennison [facility] 04/15/2021 Anxiety disorder NOS Established Melanie ent with [...] Medic al Established Patient with Traci Dennison [facility] 04/03/2021 Assessment of body mass index Medical Es tablished Patient with Traci Dennison [facility] 04/03/2021 Epilepsy, not intractable, w ithout status epilepticus Medical Established Patient with Traci Dennison [facility] 04/03/2021 Mixed affective bipolar diso rder, moderate Medical Established Patient with Traci Dennison [facility] 04/03/2021 Urinary tract infection Medical Establis hed Patient with Traci Dennison [facility] 04/03/2021 Visit for: screening for STD Medical Est ablished Patient with Traci Dennison [facility] 04/03/2021 Assessment of visit for: scr eening for human immunodeficiency virus Medical Established Patient with Peggy Thrasher [facility] 02/14/2021 Diabetes Risk Test Score was three score 02/14/2021 Medical Established Patient with Peggy Thrasher [facility] 02/14/2021 Diarrhea Medical Established Patient with Peggy Thrasher [facility] 02/14/2021 Nicotine dependence Medical Established Patient with Peggy Thrasher [facility] 02/14/2021 Z68.28 - Body mass index [BM I] 28.0-28.9, adult Medical Established Patient with Peggy Thrasher [facility] 02/14/2021 Cough Telemedicine Establi sted Patient with Traci Dennison [facility] 01/01/2021 Fever Telemedicine Establi sted Patient with Traci Dennison [facility] 01/01/2021 Z20.822 - Contact with and ( suspected) exposure to COVID-19 Telemedicine Establisted Patient with Traci Dennison [facility] 01/01/2021 Bipolar I disorder, most rec ent episode, depressed Established Patient with Farrah Jarrett [facility] 06/03/2020 Paranoid schizophrenia per p atient report Established Patient with Farrah Jarrett [facility] 06/03/2020 Post-traumatic stress disord er per patient report Established Patient with Farrah Jarrett [facility] 06/03/2020 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 Patient with Traci Dennison [facility] 06/03/2020 Overweight Medical Established Patient with Traci Dennison [facility] 06/03/2020 Z68.29 - Body mass index [BM I] 29.0-29.9, adult Medical Established Patient with Traci Dennison [facility] 06/03/2020 Anxiety disorder NOS Medical Established Patient with Traci Dennison [facility] 01/26/2020 Bipolar disorder NOS Medical Established Patient with Traci Dennison [facility] 01/26/2020 Infection of tooth Medical Established Patient with Trcai Dennison [facility] 01/26/2020 Z68.20 - Body mass index [BM I] 20.0-20.9, adult Medical Established Patient with Traci Dennison [facility] 01/26/2020 Bipolar I disorder, most rec ent episode, mixed Established Patient with Hannah Short [facility] 01/08/2020 Generalized anxiety disorder Establis hed Patient with Hannah Short [facility] 01/08/2020 Diabetes Risk Test Score was one score 01/08/2020 Medical Established Patient with Peggy Anna Marie [facility] 01/08/2020 Overweight Medical Established Patient with Peggy Anna Marie [facility] 01/08/2020 Z68.27 - Body mass index (BM I) 27.0-27.9, adult Medical Established Patient with Peggy Anna Marie [facility] 01/08/2020 Bipolar I disorder, most rec ent episode, mixed Established Patient with Hannah Short [facility] 12/25/2019 Generalized anxiety disorder Establis hed Patient with Hannah Short [facility] 12/25/2019 Overweight Medical Established Patient with Peggy Anna Marie [facility] 12/25/2019 Z68.26 - Body mass index (BM I) 26.0-26.9, adult Medical Established Patient with Peggy Anna Marie [facility] 12/25/2019 [facility] Work Phone: 1([phone]) 333-531612-23-2021 Evaluation note Includes: Assessments for all patient [...] Medic al Established Patient with Traci Dennison [facility] 04/03/2021 Assessment of body mass index Medical Es tablished Patient with Traci Dennison [facility] 04/03/2021 Epilepsy, not intractable, w ithout status epilepticus Medical Established Patient with Traci Dennison [facility] 04/03/2021 Mixed affective bipolar diso rder, moderate Medical Established Patient with Traci Dennison [facility] 04/03/2021 Urinary tract infection Medical Establis hed Patient with Traci Dennison [facility] 04/03/2021 Visit for: screening for STD Medical Est ablished Patient with Traci Dennison [facility] 04/03/2021 Assessment of visit for: scr eening for human immunodeficiency virus Medical Established Patient with Peggy Thrasher [facility] 02/14/2021 Diabetes Risk Test Score was three score 02/14/2021 Medical Established Patient with Peggy Thrasher [facility] 02/14/2021 Diarrhea Medical Established Patient with Peggy Thrasher [facility] 02/14/2021 Nicotine dependence Medical Established Patient with Peggy Thrasher [facility] 02/14/2021 Z68.28 - Body mass index [BM I] 28.0-28.9, adult Medical Established Patient with Peggy Thrasher [facility] 02/14/2021 Cough Telemedicine Establi sted Patient with Traci Dennison [facility] 01/01/2021 Fever Telemedicine Establi sted Patient with Traci Dennison [facility] 01/01/2021 Z20.822 - Contact with and ( suspected) exposure to COVID-19 Telemedicine Establisted Patient with Traci Dennison [facility] 01/01/2021 Bipolar I disorder, most rec ent episode, depressed Established Patient with Farrah Jarrett [facility] 06/03/2020 Paranoid schizophrenia per p atient report Established Patient with Farrah Jarrett [facility] 06/03/2020 Post-traumatic stress disord er per patient report Established Patient with Farrah Jarrett [facility] 06/03/2020 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 Patient with Traci Dennison [facility] 06/03/2020 Overweight Medical Established Patient with Traci Dennison [facility] 06/03/2020 Z68.29 - Body mass index [BM I] 29.0-29.9, adult Medical Established Patient with Traci Dennison [facility] 06/03/2020 Anxiety disorder NOS Medical Established Patient with Traci Dennison [facility] 01/26/2020 Bipolar disorder NOS Medical Established Patient with Traci Dennison [facility] 01/26/2020 Infection of tooth Medical Established Patient with Traci Dennison [facility] 01/26/2020 Z68.20 - Body mass index [BM I] 20.0-20.9, adult Medical Established Patient with Traci Dennison [facility] 01/26/2020 Bipolar I disorder, most rec ent episode, mixed Established Patient with Hannah Short [facility] 01/08/2020 Generalized anxiety disorder Establis hed Patient with Hannah Short [facility] 01/08/2020 Diabetes Risk Test Score was one score 01/08/2020 Medical Established Patient with Peggy Thrasher [facility] 01/08/2020 Overweight Medical Established Patient with Peggyisis Leoen [facility] 01/08/2020 Z68.27 - Body mass index (BM I) 27.0-27.9, adult Medical Established Patient with Peggy Anna Marie [facility] 01/08/2020 Bipolar I disorder, most rec ent episode, mixed Established Patient with Hannah Short [facility] 12/25/2019 Generalized anxiety disorder Establis hed Patient with Hannah Short [facility] 12/25/2019 Overweight Medical Established Patient with Peggy Anna Marie [facility] 12/25/2019 Z68.26 - Body mass index (BM I) 26.0-26.9, adult Medical Established Patient with Peggy Anna Marie [facility] 12/25/2019 [facility] Work Phone: 1(870) 583-969612-23-2021 History general Narrative - Reported Includes: Medical History in patient's chart Description Last Updated No previous hospitalizations 04/03/2021 History of complete colonoscopy 04/03/20 21 Epilepsy 12/25/2019 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 Ovarian cyst 12/25/2019 Post-traumatic stress disorder 0 History of asthma 12/25/2019 History of schizophrenia 12/25/2019 History of bipolar disorder NOS 12/25/19 20 History of depression 12/25/2019 History of psychiatric disorders 020 [facility] Work Phone: 1(211) 648-429511-05-2021 Evaluation note Includes: Assessments for all patient encounters Findings Encounter Date Diabetes Risk Test Score was three score 02/14/2021 Medical Established Patient with Peggy Thrasher [facility] 02/14/2021 Diarrhea Medical Established Patient with Peggy Thrasher [facility] 02/14/2021 Z68.28 - Body mass index [BM I] 28.0-28.9, adult Medical Established Patient with Peggy Anna Marie [facility] 02/14/2021 Cough Telemedicine Establi sted Patient with Traci Dennison [facility] 01/01/2021 Fever Telemedicine Establi sted Patient with Traci Dennison [facility] 01/01/2021 Z20.822 - Contact with and ( suspected) exposure to COVID-19 Telemedicine Establisted Patient with Traci Dennison [facility] 01/01/2021 Bipolar I disorder, most rec ent episode, depressed Established Patient with Farrhamatthew Jarrett [facility] 06/03/2020 Paranoid schizophrenia per p atient report Established Patient [facility] Hernandez[facility] Post-traumatic stress disord er per patient report Established Patient with Farrah Jarrett [facility] 06/03/2020 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 Patient with Tracizachery Dennison [facility] 06/03/2020 Overweight Medical Established Patient with Traci Juma [facility] 06/03/2020 Z68.29 - Body mass index [BM I] 29.0-29.9, adult Medical Established Patient with Traci Juma [facility] 06/03/2020 Anxiety disorder NOS Medical Established Patient with Traci Dennison [facility] 01/26/2020 Bipolar disorder NOS Medical Established Patient with Traci Dennison [facility] 01/26/2020 Infection of tooth Medical Established Patient with Traci Dennison [facility] 01/26/2020 Z68.20 - Body mass index [BM I] 20.0-20.9, adult Medical Established Patient with Traci Dennison [facility] 01/26/2020 Bipolar I disorder, most rec ent episode, mixed Established Patient with Hannah Rivera [facility] 01/08/2020 Generalized anxiety disorder Establis hed Patient with Hannah Short [facility] 01/08/2020 Diabetes Risk Test Score was one score 01/08/2020 Medical Established Patient with Peggy Anna Marie [facility] 01/08/2020 Overweight Medical Established Patient with Peggy Thrasher [facility] 01/08/2020 Z68.27 - Body mass index (BM I) 27.0-27.9, adult Medical Established Patient with Peggy Thrasher [facility] 01/08/2020 Bipolar I disorder, most rec ent episode, mixed Established Patient with Hannah Rivera [facility] 12/25/2019 Generalized anxiety disorder Establis hed Patient with Hannah Short [facility] 12/25/2019 Overweight Medical Established Patient with Peggy Thrasher [facility] 12/25/2019 Z68.26 - Body mass index (BM I) 26.0-26.9, adult Medical Established Patient with Peggy Thrasher [facility] 12/25/2019 [facility] Work Phone: 1(866) 852-558811-05-2021 Evaluation note Includes: Assessments for all patient encounters Findings Encounter Date Assessment of visit for: lupe starr for human immunodeficiency virus Medical Established Patient with Peggy Thrasher [facility] 02/14/2021 Diabetes Risk Test Score was three score 02/14/2021 Medical Established Patient with Peggy Thrasher [facility] 02/14/2021 Diarrhea Medical Established Patient with Peggy Thrasher [facility] 02/14/2021 Nicotine dependence Medical Established Patient with Peggy Thrasher [facility] 02/14/2021 Z68.28 - Body mass index [BM I] 28.0-28.9, adult Medical Established Patient with Peggy Thrasher [facility] 02/14/2021 Cough Telemedicine Establi sted Patient with Tracizachery Dennison [facility] 01/01/2021 Fever Telemedicine Establi sted Patient with Traci Dennison [facility] 01/01/2021 Z20.822 - Contact with and ( suspected) exposure to COVID-19 Telemedicine Establisted Patient with Traci Dennison [facility] 01/01/2021 Bipolar I disorder, most rec ent episode, depressed Established Patient with Farrah Jarrett [facility] 06/03/2020 Paranoid schizophrenia per p atient report Established Patient with Farrah Jarrett [facility] 06/03/2020 Post-traumatic stress disord er per patient report Established Patient with 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 Patient with Traci Dennison [facility] 06/03/2020 Overweight Medical Established Patient with Traci Dennison [facility] 06/03/2020 Z68.29 - Body mass index [BM I] 29.0-29.9, adult Medical Established Patient with Traci Dennison [facility] 06/03/2020 Anxiety disorder NOS Medical Established Patient with Traci Dennison [facility] 01/26/2020 Bipolar disorder NOS Medical Established Patient with Traci Dennison [facility] 01/26/2020 Infection of tooth Medical Established Patient with Traci Dennison [facility] 01/26/2020 Z68.20 - Body mass index [BM I] 20.0-20.9, adult Medical Established Patient with Traci Dennison [facility] 01/26/2020 Bipolar I disorder, most rec ent episode, mixed Established Patient with Hannah Short [facility] 01/08/2020 Generalized anxiety disorder BH Establis hed Patient with Hannah Short [facility] 01/08/2020 Diabetes Risk Test Score was one score 01/08/2020 Medical Established Patient with Peggy Thrasher [facility] 01/08/2020 Overweight Medical Established Patient with Peggyisis Thrasher [facility] 01/08/2020 Z68.27 - Body mass index (BM I) 27.0-27.9, adult Medical Established Patient with Peggy Thrasher [facility] 01/08/2020 Bipolar I disorder, most rec ent episode, mixed Established Patient with Hannah Short [facility] 12/25/2019 Generalized anxiety disorder BH Establis hed Patient with Hannah Short [facility] 12/25/2019 Overweight Medical Established Patient with Peggy Thrasher [facility] 12/25/2019 Z68.26 - Body mass index (BM I) 26.0-26.9, adult Medical Established Patient with Peggy Thrasher [facility] 12/25/2019 [facility] Work Phone: [phone]) 626-285310-29-2021 Hospital Discharge instructions* Instructions* Serenity Will, DO - 02/07/2021 Follow-up with your primary care provider next week, and call to schedule follow-up with GI doctor.For follow-up as soon as possible. Return to ER for any symptoms documented in this [facility] Work Phone: 1(492) 976-124610-27-2021 Hospital Discharge instructions* Instructions* Мария Yee DO - 02/05/2021 Fill and take the Pepcid and Maalox as prescribed. Follow-up with your family doctor or a multicut line operator. Return to the emergency department for new, worsening or worrisome symptoms. * Attachments The following attachments cannot be sent through Care Everywhere. * [facility] ([place] [employer] 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 Ovarian cyst 12/25/2019 Post-traumatic stress disorder 0 History of asthma 12/25/2019 History of schizophrenia 12/25/2019 History of bipolar disorder NOS 12/25/19 20 History of depression 12/25/2019 History of psychiatric disorders 020 [facility] Work Phone: 1(399) 576-126509-28-2020 Instructions Includes: Instructions for all patient encounters Instructions to patient Intervention and counseling on cessation of tobacco use, 3-10 minutes Last Documented On 0 1:15PM ; [facility] Education and Decision Aids were provided during visit for: Discussed nutritional needs teach healthy choices including fruits and vegetables Last Documented On 3 12:03PM ; [facility] Patient education about a pr oper diet Last Documented On 3 12:03PM ; [facility] Discussed concerns about exe rcise : promote physical activity ~ ~Will keep medication the same Last Documented On 3 4:46AM ; [facility] Not requesting contraception Last Documented On 3 12:04PM ; [facility] Discussed nutritional needs teach healthy choices including fruits and vegetables Last Documented On 3 9:09AM ; [facility] Patient education about a pr oper diet Last Documented On 3 9:09AM ; [facility] Patient education about an a sthma action plan Last Documented On 3 9:44AM ; [facility] Discussed concerns about exe rcise : promote physical activity ~ ~Will restart symbicort ~ ~Follow up in one month for asthma Last Documented On 3 12:28PM ; [facility] Discussed nutritional needs teach healthy choices including fruits and vegetables Last Documented On 2 10:58AM ; [facility] Patient education about a pr oper diet Last Documented On 2 10:58AM ; [facility] Discussed concerns about exe rcise : promote physical activity Last Documented On 2 10:58AM ; [facility] Discussed nutritional needs teach healthy choices including fruits and vegetables Last Documented On 2 11:41AM ; [facility] Patient education about a pr oper diet Last Documented On 2 11:41AM ; [facility] Discussed concerns about exe rcise : promote physical activity Last Documented On 2 11:41AM ; [facility] offered active listening and supportive feedback; normalized emotions and feelings, also provided pt time to process any current stressors ~P discussed benefits of counseling and supported pt in following through with scheduled appt. ~[facility] encouraged pt to continue to make time to implement self-care regimen to assist in improving their mood Last Documented On 2 2:29PM ; [facility] Provided supportive listenin g and reflective feedback; monitored mood, explored symptoms, assessed functioning. ~Discussed medication use/compliance. ~Promoted use of healthy coping mechanisms and positive support, as needed Last Documented On 2 1:25PM ; [facility] Discussed nutritional needs teach healthy choices including fruits and vegetables Last Documented On 2 12:54PM ; [facility] Patient education about a pr oper diet Last Documented On 2 12:54PM ; [facility] Discussed concerns about exe rcise : promote physical activity Last Documented On 2 12:54PM ; [facility] Discussed nutritional needs teach healthy choices including fruits and vegetables Last Documented On 2 11:39AM ; [facility] Patient education about a pr oper diet Last Documented On 2 11:39AM ; [facility] Discussed concerns about exe rcise : promote physical activity Last Documented On 2 11:39AM ; [facility] Discussed nutritional needs teach healthy choices including fruits and vegetables Last Documented On 2 10:29AM ; [facility] Patient education about a pr oper diet Last Documented On 2 10:29AM ; [facility] Discussed concerns about exe rcise : promote physical activity Last Documented On 2 10:29AM ; [facility] Discussed current self-care methods/coping skills. ~Validated and normalized patient's feelings while assisting process recent events. ~Discussed ongoing counseling. ~Discussed lifestyle changes to address chronic illness. ~Supported patient's personal health goals Last Documented On 2 8:50PM ; [facility] Discussed nutritional needs teach healthy choices including fruits and vegetables Last Documented On 2 11:15AM ; [facility] Patient education about a pr oper diet Last Documented On 2 11:15AM ; [facility] Discussed concerns about exe rcise : promote physical activity Last Documented On 2 11:15AM ; [facility] Discussed current self-care methods/coping skills. ~Validated and normalized patient's feelings while assisting process recent events. ~Discussed ongoing mental health services. ~Discussed lifestyle changes to address chronic illness. ~Supported patient's personal health goals. ~ ~Reports feeling better since beginning new meds. Also voices and visual hallucinations have stopped; reports voices were not commanfing Last Documented On 2 8:54PM ; [facility] active and suppo rtive listening and normalized emotions and feelings. ~P discussed with patient and significant other in the room with her crisis resources. Patient is agreeable to contacting one of the crisis resources should moods worsen or call 911 or go to the Emergency Room. Patient reports that she can also speak with significant others Mom or go to her [employer] [facility] house. ~[facility] and PCP discussed plan to follow-up with psychiatry and counseling and a new referral being sent to [facility]. If patient is not accepted back as a patient with Dr. Dickerson, will look into other resources Last Documented On 1 7:15PM ; [facility] Discussed nutritional needs teach healthy choices including fruits and vegetables Last Documented On 1 1:18PM ; [facility] Patient education about a pr oper diet Last Documented On 1 1:18PM ; [facility] Discussed concerns about exe rcise : promote physical activity Last Documented On 1 1:18PM ; [facility] Discussed nutritional needs teach healthy choices including fruits and vegetables Last Documented On 1 10:37AM ; [facility] Patient education about a pr oper diet Last Documented On 1 10:37AM ; [facility] Discussed concerns about exe rcise : promote physical activity Last Documented On 1 10:37AM ; [facility] Explored current symptoms an d stressors. Educaated patient re importance of counseling and provided brief review of EMDR treatment. ~Encouraged patient to engage in ongoing counseling. ~ Last Documented On 1 10:50PM ; [facility] Discussed nutritional needs teach healthy choices including fruits and vegetables Last Documented On 1 6:53PM ; [facility] Patient education about a pr oper diet Last Documented On 1 6:53PM ; [facility] Discussed concerns about exe rcise : promote physical activity Last Documented On 1 6:53PM ; [facility] provided active listenin g, support and helped patient process through current symptoms and stressors related to mood and irritability. ~[facility] discussed coping skills that patient has tried as well as discussed potential benefit of counseling. ~ ~ Last Documented On 0 11:49AM ; [facility] Discussed nutritional needs teach healthy choices including fruits and vegetables Last Documented On 0 1:15PM ; [facility] Patient education about a pr oper diet Last Documented On 0 1:15PM ; [facility] Patient education about a pr oper diet Last Documented On 0 1:33PM ; [facility] Patient education about meal planning Last Documented On 0 1:33PM ; [facility] Education about changing eat ing habits Last Documented On 0 1:33PM ; [facility] Patient education about high fiber diet Last Documented On 0 1:33PM ; [facility] Patient education about low fat diet Last Documented On 0 1:33PM ; [facility] Patient education about low cholesterol diet Last Documented On 0 1:33PM ; [facility] Patient education about low carbohydrate diet Last Documented On 0 1:33PM ; [facility] Patient education about high protein diet Last Documented On 0 1:33PM ; [facility] Discussed concerns about exe rcise : promote physical activity Last Documented On 0 1:15PM ; [facility] provided active listenin g, support and helped patient process through current symptoms and stressors due to pain, loss of work and low frustration tolerance. ~[facility] discussed coping skills and supports that patient can implement inclduing meditation, mindfulness, and deep breathing activities. [facility] provided resources to patient to work on implementing. ~[facility] discussed with patient re-establishing care for therapy and provided patient with resource list. ~ Last Documented On 0 6:15PM ; [facility] Discussed nutritional needs teach healthy choices including fruits and vegetables Last Documented On 0 1:12PM ; [facility] Patient education about a pr oper diet Last Documented On 0 1:12PM ; [facility] Patient education about a pr oper diet Last Documented On 0 1:46PM ; [facility] Patient education about meal planning Last Documented On 0 1:46PM ; [facility] Education about changing eat ing habits Last Documented On 0 1:46PM ; [facility] Patient education about high fiber diet Last Documented On 0 1:46PM ; [facility] Patient education about low fat diet Last Documented On 0 1:46PM ; [facility] Patient education about low cholesterol diet Last Documented On 0 1:46PM ; [facility] Patient education about low carbohydrate diet Last Documented On 0 1:46PM ; [facility] Patient education about high protein diet Last Documented On 0 1:46PM ; [facility] Discussed concerns about exe rcise : promote physical activity Last Documented On 0 1:12PM ; [facility] Work Phone: Evaluation note* Diagnosis Abdominal pain, epigastric- Primary documented in this encounter [employer] Phone: evaluation note* Diagnosis Infective otitis externa of left ear- Primary Acute serous otitis media, recurrence not specified, unspecified laterality documented in this encounter [employer] Phone: evaluation note* Diagnosis Injury of right wrist, initial encounter- Primary documented in this encounter [employer] Phone: evaluation note* Diagnosis Suspected COVID-19 virus infection- Primary documented in this encounter [employer] Phone: evaluation note* Diagnosis Abdominal pain, epigastric- Primary documented in this encounter [employer] Phone: evaluation note* Diagnosis Abdominal pain, epigastric- Primary Non-intractable vomiting with nausea, unspecified vomiting type Diarrhea, unspecified type documented in this encounter [employer] Phone: evaluation note* Diagnosis Pain of upper abdomen- Primary Abdominal pain, other specified site documented in this encounter [employer] Phone: evaluation note* Diagnosis Right shoulder injury, initial encounter- Primary documented in this encounter [employer] Phone: evaluation note* Diagnosis Periumbilical abdominal pain- Primary Abdominal pain, periumbilic documented in this encounter [employer] Phone: evaluation note* Diagnosis Folliculitis- Primary Other specified disease of hair and hair follicles Possible exposure to STD Other specified personal history presenting hazards to health documented in this encounter [employer] Phone: evaluation note* Diagnosis Gastroenteritis- Primary Other and unspecified noninfectious gastroenteritis and colitis documented in this encounter [employer] Phone: evaluation note* Diagnosis Diarrhea, unspecified type documented in this encounter [employer] Phone: evaluation note* Diagnosis Palpitations documented in this encounter [employer] Phone: evaluation note* Diagnosis Nausea vomiting and diarrhea- Primary Nausea with vomiting documented in this encounter [facility] Work Phone: evaluation note Includes: Assessments for all patient encounters Findings Encounter Date [Body mass index [BMI] 33.0- 33.9, adult] assessment of body mass index Medical Established Patient with Srinivasa Ed [facility] 11/30/2022 Last Documented On 3 12:28PM ; [facility] Anxiety disorder NOS Medical Established Patient with Srinivasa Ed [facility] [facility] 11/30/2022 Last Documented On 3 12:28PM ; [facility] Diabetes Risk Test Score was four score 11/30/2022 Medical Established Patient with Srinivasa Ed [facility] 11/30/2022 Last Documented On 3 12:28PM ; [facility] Uncomplicated mild persistent asthma Med ical Established Patient with Srinivasa Ed [facility] 11/30/2022 Last Documented On 3 12:28PM ; [facility] Visit for: routine adult H&P with abnormal findings Medical Established Patient with Srinivasa Ed [facility] 11/30/2022 Last Documented On 3 12:28PM ; [facility] [Body mass index [BMI] 30.0- 30.9, adult] assessment of body mass index Medical Established Patient with Srinivasa Ed [facility] 01/22/2022 Last Documented On 2 6:17PM ; [facility] Dysuria Medical Established Patient with Srinivasa Ed [facility] 01/22/2022 Last Documented On 2 6:17PM ; [facility] Bipolar schizoaffective disorder BH Esta blished Patient with Ina Díaz LPCC-S 12/11/2021 Last Documented On 2 2:31PM ; [facility] Assessment of body mass inde x [Body mass index [BMI] 26.0-26.9, adult] Medical Established Patient with Srinivasa Ed [facility] 12/11/2021 Last Documented On 2 12:34PM ; [facility] Bipolar schizoaffective disorder BH Esta blished Patient with Ina Díaz LPCC-S 11/25/2021 Last Documented On 2 1:25PM ; [facility] Anxiety disorder NOS Medical Established Patient with Traci Juma [facility] 11/25/2021 Last Documented On 2 3:06PM ; [facility] Urinary tract infection Medical Establis hed Patient with Traci Juma [facility] 11/25/2021 Last Documented On 2 3:06PM ; [facility] Z68.27 - Body mass index [BM I] 27.0-27.9, adult Medical Established Patient with Traci Juma [facility] 11/25/2021 Last Documented On 2 3:06PM ; [facility] Anxiety disorder NOS Medical Established Patient with Traci Juma [facility] 08/13/2021 Last Documented On 2 8:18AM ; [facility] Assessment of body mass index Medical Es tablished Patient with Traci Juma [facility] 08/13/2021 Last Documented On 2 8:18AM ; [facility] Chronic gastritis without hemorrhage Med ical Established Patient with Traci Juma [facility] 08/13/2021 Last Documented On 2 8:18AM ; [facility] Diverticulosis of intestine Medical Esta blished Patient with Traci Juma [facility] 08/13/2021 Last Documented On 2 8:18AM ; [facility] Urinary tract infection Medical Establis hed Patient with Traci Juma [facility] 08/13/2021 Last Documented On 2 8:18AM ; [facility] Anxiety disorder NOS Medical Established Patient with Traci Juma [facility] 07/17/2021 Last Documented On 2 8:10AM ; [facility] Other hypothyroidism Medical Established Patient with Traci Juma [facility] 07/17/2021 Last Documented On 2 8:10AM ; [facility] Upper respiratory infection Medical Esta blished Patient with Traci Juma [facility] 07/17/2021 Last Documented On 2 8:10AM ; [facility] Visit for: routine adult H&P with abnormal findings Medical Established Patient with Traci Juma [facility] 07/17/2021 Last Documented On 2 8:10AM ; [facility] Visit for: screening for lip oid disorders Medical Established Patient with Traci Dennison [facility] 07/17/2021 Last Documented On 2 8:10AM ; [facility] Vitamin B12 deficiency Medical Establish ed Patient with Traci Dennison [facility] 07/17/2021 Last Documented On 2 8:10AM ; [facility] Vitamin D deficiency Medical Established Patient with Traci Dennison [facility] 07/17/2021 Last Documented On 2 8:10AM ; [facility] Z68.28 - Body mass index [BM I] 28.0-28.9, adult Medical Established Patient with Traci Dennison [facility] 07/17/2021 Last Documented On 2 8:10AM ; [facility] Allergic rhinitis Telemedicine Establi sted Patient with Traci Dennison [facility] 07/16/2021 Last Documented On 2 8:23AM ; [facility] Exposure to COVID-19 Telemedicine Establ isted Patient with Traci Dennison [facility] 04/29/2021 Last Documented On 2 8:02PM ; [facility] Bipolar schizoaffective disorder BH Esta blished Patient with Farrah Jarrett LPCC-S 04/15/2021 Last Documented On 2 1:07PM ; [facility] Anxiety disorder NOS Medical Established Patient with Traci Dennison [facility] 04/15/2021 Last Documented On 2 9:06AM ; [facility] Assessment of body mass index Medical Es tablished Patient with Traci Dennison [facility] 04/15/2021 Last Documented On 2 9:06AM ; [facility] Bipolar disorder NOS Medical Established Patient with Traci Dennison [facility] 04/15/2021 Last Documented On 2 9:06AM ; [facility] Anxiety disorder NOS BH Telebehavioral H ealth with Farrah Jarrett LPCC-S 04/09/2021 Last Documented On 2 9:05AM ; [facility] Bipolar disorder NOS BH Telebehavioral H ealth with Farrah Jarrett LPCC-S 04/09/2021 Last Documented On 2 9:05AM ; [facility] Anxiety disorder NOS Established Patient with Hannah Short [facility] 04/03/2021 Last Documented On 1 7:15PM ; [facility] Bipolar I disorder, most rec ent episode, depressed Established Patient with Hannah Short LISWS 04/03/2021 Last Documented On 1 7:15PM ; [facility] Nicotine dependence Established Patient with Hannah Short LISWS 04/03/2021 Last Documented On 1 7:15PM ; [facility] Nicotine dependence Established Patient with Hannah Short LISWS 04/03/2021 Last Documented On 1 7:15PM ; [facility] Undifferentiated schizophren ia per patient reported history Established Patient with Hannah Short LISWS 04/03/2021 Last Documented On 1 7:15PM ; [facility] A home test was negative Medic al Established Patient with Traci Dennison [facility] 04/03/2021 Last Documented On 1 8:11PM ; [facility] Assessment of body mass index Medical Es tablished Patient with Traci Dennison [facility] 04/03/2021 Last Documented On 1 8:11PM ; [facility] Epilepsy, not intractable, w ithout status epilepticus Medical Established Patient with Traci Dennison [facility] 04/03/2021 Last Documented On 1 8:11PM ; [facility] Mixed affective bipolar diso rder, moderate Medical Established Patient with Traci Dennison [facility] 04/03/2021 Last Documented On 1 8:11PM ; [facility] Urinary tract infection Medical Establis hed Patient with Traci Dennison [facility] 04/03/2021 Last Documented On 1 8:11PM ; [facility] Visit for: screening for STD Medical Est ablished Patient with Traci Dennison [facility] 04/03/2021 Last Documented On 1 8:11PM ; [facility] Assessment of visit for: scr eening for human immunodeficiency virus Medical Established Patient with Peggy Thrasher [facility] 02/14/2021 Last Documented On 1 1:16PM ; [facility] Diabetes Risk Test Score was three score 02/14/2021 Medical Established Patient with Peggy Thrasher [facility] 02/14/2021 Last Documented On 1 1:16PM ; [facility] Diarrhea Medical Established Patient with Peggy Thrasher [facility] 02/14/2021 Last Documented On 1 1:16PM ; [facility] Nicotine dependence Medical Established Patient with Peggy Thrasher [facility] 02/14/2021 Last Documented On 1 1:16PM ; [facility] Z68.28 - Body mass index [BM I] 28.0-28.9, adult Medical Established Patient with Peggy Thrasher [facility] 02/14/2021 Last Documented On 1 1:16PM ; [facility] Cough Telemedicine Establisted Patient with Traci Dennison [facility] 01/01/2021 Last Documented On 1 6:31PM ; [facility] Fever Telemedicine Establisted Patient with Traci Dennison [facility] 01/01/2021 Last Documented On 1 6:31PM ; [facility] Z20.822 - Contact with and (suspected) exposure to COVID-19 Telemedicine Establisted Patient with Traci Dennison [facility] 01/01/2021 Last Documented On 1 6:31PM ; [facility] Bipolar I disorder, most rec ent episode, depressed Established Patient with Farrah Jarrett LPCC-S 06/03/2020 Last Documented On 1 10:50PM ; [facility] Paranoid schizophrenia per p atient report Established Patient with Farrah Jarrett LPCC-S 06/03/2020 Last Documented On 1 10:50PM ; [facility] Post-traumatic stress disord er per patient report Established Patient with Farrah Jarrett LPCC-S 06/03/2020 Last Documented On 1 10:50PM ; [facility] 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 Patient with Traci Juma [facility] 06/03/2020 Last Documented On 1 8:25AM ; [facility] Overweight Medical Established Patient with Traci Juma [facility] 06/03/2020 Last Documented On 1 8:25AM ; [facility] Z68.29 - Body mass index [BM I] 29.0-29.9, adult Medical Established Patient with Traci Dennison [facility] 06/03/2020 Last Documented On 1 8:25AM ; [facility] Anxiety disorder NOS Medical Established Patient with Traci Deninson [facility] 01/26/2020 Last Documented On 0 7:37PM ; [facility] Bipolar disorder NOS Medical Established Patient with Traci Dennison [facility] 01/26/2020 Last Documented On 0 7:37PM ; [facility] Infection of tooth Medical Established Patient w ith Traci Dennison [facility] 01/26/2020 Last Documented On 0 7:37PM ; [facility] Z68.20 - Body mass index [BM I] 20.0-20.9, adult Medical Established Patient with Trcai Dennison [facility] 01/26/2020 Last Documented On 0 7:37PM ; [facility] Bipolar I disorder, most rec ent episode, mixed Established Patient with Hannah Short L[facility] 01/08/2020 Last Documented On 0 11:49AM ; [facility] Generalized anxiety disorder Establis hed Patient with Hannah Short LISWS 01/08/2020 Last Documented On 0 11:49AM ; [facility] Diabetes Risk Test Score was one score 01/08/2020 Medical Established Patient with Peggy Anna Marie [facility] 01/08/2020 Last Documented On 0 1:42PM ; [facility] Overweight Medical Established Patient with Peggy Anna Marie [facility] 01/08/2020 Last Documented On 0 1:42PM ; [facility] Z68.27 - Body mass index (BM I) 27.0-27.9, adult Medical Established Patient with Peggy Anna Marie [facility] 01/08/2020 Last Documented On 0 1:42PM ; [facility] Bipolar I disorder, most rec ent episode, mixed Established Patient with Hannah Short LISWS 12/25/2019 Last Documented On 0 6:16PM ; [facility] Generalized anxiety disorder BH Establis hed Patient with Hannah Short LISWS 12/25/2019 Last Documented On 0 6:16PM ; [facility] Overweight Medical Established Patient with Peggy Thrasher [facility] 12/25/2019 Last Documented On 0 1:54PM ; [facility] Z68.26 - Body mass index (BM I) 26.0-26.9, adult Medical Established Patient with Peggy Thrasher [facility] 12/25/2019 Last Documented On 0 1:54PM ; [facility] Work Phone: Evaluation note Includes: Assessments for all patient encounters Findings Encounter Date Anxiety disorder NOS Established Patient with Lea Stone [facility] 02/19/2023 Last Documented On 3 11:18AM ; [facility] Bipolar schizoaffective disorder Esta blished Patient with Lea Stone [facility] 02/19/2023 Last Documented On 3 11:18AM ; [facility] Nicotine dependence Established Patient with Lea Stone [facility] 02/19/2023 Last Documented On 3 11:18AM ; [facility] Assessment of body mass index Open Acces s - Established with Srinivasa Ed [facility] 02/19/2023 Last Documented On 3 12:18PM ; [facility] [Body mass index [BMI] 33.0- 33.9, adult] assessment of body mass index Medical Established Patient with Srinivasa Ed [facility] 02/05/2023 Last Documented On 3 3:48PM ; [facility] Anxiety disorder NOS Medical Established Patient with Srinivasa Ed [facility] 02/05/2023 Last Documented On 3 3:48PM ; [facility] Body mass index Medical Established Patient with Srinivasa Ed [facility] 01/28/2023 Last Documented On 3 8:31PM ; [facility] [Body mass index [BMI] 32.0- 32.9, adult] assessment of body mass index Medical Established Patient with Srinivasa Ed [facility] 12/31/2022 Last Documented On 3 5:25AM ; [facility] Uncomplicated mild persistent asthma Med ical Established Patient with Srinivasa Ed [facility] 12/31/2022 Last Documented On 3 5:25AM ; [facility] [Body mass index [BMI] 33.0- 33.9, adult] assessment of body mass index Medical Established Patient with Srinivasa Ed [facility] 11/30/2022 Last Documented On 3 12:28PM ; [facility] Anxiety disorder NOS Medical Established Patient with Srinivasa Ed [facility] [facility] 11/30/2022 Last Documented On 3 12:28PM ; [facility] Diabetes Risk Test Score was four score 11/30/2022 Medical Established Patient with Srinivasa Ed [facility] 11/30/2022 Last Documented On 3 12:28PM ; [facility] Uncomplicated mild persistent asthma Med ical Established Patient with Srinivasa Ed [facility] 11/30/2022 Last Documented On 3 12:28PM ; [facility] Visit for: routine adult H&P with abnormal findings Medical Established Patient with Srinivasa Ed [facility] [facility] 11/30/2022 Last Documented On 3 12:28PM ; [facility] [Body mass index [BMI] 30.0- 30.9, adult] assessment of body mass index Medical Established Patient with Srinivasa Ed [facility] 01/22/2022 Last Documented On 2 6:17PM ; [facility] Dysuria Medical Established Patient with Srinivasa Ed [facility] [facility] 01/22/2022 Last Documented On 2 6:17PM ; [facility] Bipolar schizoaffective disorder BH Esta blished Patient with Inatameka Díza LPCC-S 12/11/2021 Last Documented On 2 2:31PM ; [facility] Assessment of body mass inde x [Body mass index [BMI] 26.0-26.9, adult] Medical Established Patient with Srinivasa Ed [facility] 12/11/2021 Last Documented On 2 12:34PM ; [facility] Bipolar schizoaffective disorder BH Esta blished Patient with Ina Díaz LPCC-S 11/25/2021 Last Documented On 2 1:25PM ; [facility] Anxiety disorder NOS Medical Established Patient with Traci Juma [facility] 11/25/2021 Last Documented On 2 3:06PM ; [facility] Urinary tract infection Medical Establis hed Patient with Traci Juma [facility] 11/25/2021 Last Documented On 2 3:06PM ; [facility] Z68.27 - Body mass index [BM I] 27.0-27.9, adult Medical Established Patient with Traci Juma [facility] 11/25/2021 Last Documented On 2 3:06PM ; [facility] Anxiety disorder NOS Medical Established Patient with Traci Juma [facility] 08/13/2021 Last Documented On 2 8:18AM ; [facility] Assessment of body mass index Medical Es tablished Patient with Traci Juma [facility] 08/13/2021 Last Documented On 2 8:18AM ; [facility] Chronic gastritis without hemorrhage Med ical Established Patient with Traci Juma [facility] 08/13/2021 Last Documented On 2 8:18AM ; [facility] Diverticulosis of intestine Medical Esta blished Patient with Traci Juma [facility] 08/13/2021 Last Documented On 2 8:18AM ; [facility] Urinary tract infection Medical Establis hed Patient with Traci Juma [facility] 08/13/2021 Last Documented On 2 8:18AM ; [facility] Anxiety disorder NOS Medical Established Patient with Traci Juma [facility] 07/17/2021 Last Documented On 2 8:10AM ; [facility] Other hypothyroidism Medical Established Patient with Traci Juma [facility] 07/17/2021 Last Documented On 2 8:10AM ; [facility] Upper respiratory infection Medical Esta blished Patient with Traci Juma [facility] [facility] 07/17/2021 Last Documented On 2 8:10AM ; [facility] Visit for: routine adult H&P with abnormal findings Medical Established Patient with Traci Juma [facility] 07/17/2021 Last Documented On 2 8:10AM ; [facility] Visit for: screening for lip oid disorders Medical Established Patient with Traci Juma [facility] 07/17/2021 Last Documented On 2 8:10AM ; [facility] Vitamin B12 deficiency Medical Establish ed Patient with Traic Dennison [facility] 07/17/2021 Last Documented On 2 8:10AM ; [facility] Vitamin D deficiency Medical Established Patient with Traci Dennison [facility] 07/17/2021 Last Documented On 2 8:10AM ; [facility] Z68.28 - Body mass index [BM I] 28.0-28.9, adult Medical Established Patient with Traci Dennison [facility] 07/17/2021 Last Documented On 2 8:10AM ; [facility] Allergic rhinitis Telemedicine Establi sted Patient with Traci Dennison [facility] 07/16/2021 Last Documented On 2 8:23AM ; [facility] Exposure to COVID-19 Telemedicine Establ isted Patient with Traci Dennison [facility] 04/29/2021 Last Documented On 2 8:02PM ; [facility] Bipolar schizoaffective disorder BH Esta blished Patient with Farrah Jarrett LPCC-S 04/15/2021 Last Documented On 2 1:07PM ; [facility] Anxiety disorder NOS Medical Established Patient with Traci Dennison [facility] 04/15/2021 Last Documented On 2 9:06AM ; [facility] Assessment of body mass index Medical Es tablished Patient with Traci Dennison [facility] [facility] 04/15/2021 Last Documented On 2 9:06AM ; [facility] Bipolar disorder NOS Medical Established Patient with Traci Dennison [facility] [facility] 04/15/2021 Last Documented On 2 9:06AM ; [facility] Anxiety disorder NOS Telebehavioral H ealth with Farrah Jarrett LPCC-S 04/09/2021 Last Documented On 2 9:05AM ; [facility] Bipolar disorder NOS BH Telebehavioral H ealth with Farrah Jarrett LPCC-S 04/09/2021 Last Documented On 2 9:05AM ; [facility] Anxiety disorder NOS BH Established Patient with Hannah Short LISWS 04/03/2021 Last Documented On 1 7:15PM ; [facility] Bipolar I disorder, most rec ent episode, depressed Established Patient with Hannah Short LISWS 04/03/2021 Last Documented On 1 7:15PM ; [facility] Nicotine dependence Established Patient with Hannah Short LISWS 04/03/2021 Last Documented On 1 7:15PM ; [facility] Nicotine dependence Established Patient with Hannah Short LISWS 04/03/2021 Last Documented On 1 7:15PM ; [facility] Undifferentiated schizophren ia per patient reported history Established Patient with Hannah Short LISWS 04/03/2021 Last Documented On 1 7:15PM ; [facility] A home test was negative Medic al Established Patient with Traci Dennison [facility] 04/03/2021 Last Documented On 1 8:11PM ; [facility] Assessment of body mass index Medical Es tablished Patient with Traci Dennison [facility] 04/03/2021 Last Documented On 1 8:11PM ; [facility] Epilepsy, not intractable, w ithout status epilepticus Medical Established Patient with Traci Dennison [facility] 04/03/2021 Last Documented On 1 8:11PM ; [facility] Mixed affective bipolar diso rder, moderate Medical Established Patient with Traci Dennison [facility] 04/03/2021 Last Documented On 1 8:11PM ; [facility] Urinary tract infection Medical Establis hed Patient with Traci Dennison [facility] 04/03/2021 Last Documented On 1 8:11PM ; [facility] Visit for: screening for STD Medical Est ablished Patient with Traci Dennison [facility] 04/03/2021 Last Documented On 1 8:11PM ; [facility] Assessment of visit for: scr eening for human immunodeficiency virus Medical Established Patient with Peggy Thrasher [facility] 02/14/2021 Last Documented On 1 1:16PM ; [facility] Diabetes Risk Test Score was three score 02/14/2021 Medical Established Patient with Peggy Thrasher [facility] 02/14/2021 Last Documented On 1 1:16PM ; [facility] Diarrhea Medical Established Patient with Peggy Thrasher [facility] 02/14/2021 Last Documented On 1 1:16PM ; [facility] Nicotine dependence Medical Established Patient with Peggy Thrasher [facility] 02/14/2021 Last Documented On 1 1:16PM ; [facility] Z68.28 - Body mass index [BM I] 28.0-28.9, adult Medical Established Patient with Peggy Thrasher [facility] 02/14/2021 Last Documented On 1 1:16PM ; [facility] Cough Telemedicine Establisted Patient with Traci Dennison [facility] 01/01/2021 Last Documented On 1 6:31PM ; [facility] Fever Telemedicine Establisted Patient with Traci Dennison [facility] 01/01/2021 Last Documented On 1 6:31PM ; [facility] Z20.822 - Contact with and (suspected) exposure to COVID-19 Telemedicine Establisted Patient with Traci Dennison [facility] 01/01/2021 Last Documented On 1 6:31PM ; [facility] Bipolar I disorder, most rec ent episode, depressed Established Patient with Farrahmatthew Hernandezs LPCC-S 06/03/2020 Last Documented On 1 10:50PM ; [facility] Paranoid schizophrenia per p atient report Established Patient with Farrah Jarrett LPCC-S 06/03/2020 Last Documented On 1 10:50PM ; [facility] Post-traumatic stress disord er per patient report Established Patient with Farrah Jarrett LPCC-S 06/03/2020 Last Documented On 1 10:50PM ; [facility] 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 Patient with Traci Dennison [facility] 06/03/2020 Last Documented On 1 8:25AM ; [facility] Overweight Medical Established Patient with Traci Dennison [facility] 06/03/2020 Last Documented On 1 8:25AM ; [facility] Z68.29 - Body mass index [BM I] 29.0-29.9, adult Medical Established Patient with Traci Dennison [facility] 06/03/2020 Last Documented On 1 8:25AM ; [facility] Anxiety disorder NOS Medical Established Patient with Traci Dennison [facility] 01/26/2020 Last Documented On 0 7:37PM ; [facility] Bipolar disorder NOS Medical Established Patient with Traci Dennison [facility] 01/26/2020 Last Documented On 0 7:37PM ; [facility] Infection of tooth Medical Established Patient w ith Traci Dennison [facility] 01/26/2020 Last Documented On 0 7:37PM ; [facility] Z68.20 - Body mass index [BM I] 20.0-20.9, adult Medical Established Patient with Traci Dennison [facility] 01/26/2020 Last Documented On 0 7:37PM ; [facility] Bipolar I disorder, most rec ent episode, mixed Established Patient with Hannah Short LISWS 01/08/2020 Last Documented On 0 11:49AM ; [facility] Generalized anxiety disorder Establis hed Patient with Hannah Short LISWS 01/08/2020 Last Documented On 0 11:49AM ; [facility] Diabetes Risk Test Score was one score 01/08/2020 Medical Established Patient with Peggyisis Leoen [facility] 01/08/2020 Last Documented On 0 1:42PM ; [facility] Overweight Medical Established Patient with Peggy Anna Marie [facility] 01/08/2020 Last Documented On 0 1:42PM ; [facility] Z68.27 - Body mass index (BM I) 27.0-27.9, adult Medical Established Patient with Peggy Anna Marie [facility] 01/08/2020 Last Documented On 0 1:42PM ; [facility] Bipolar I disorder, most rec ent episode, mixed Established Patient with Hannah Short LISWS 12/25/2019 Last Documented On 0 6:16PM ; [facility] Generalized anxiety disorder BH Establis hed Patient with Hannah Short LISWS 12/25/2019 Last Documented On 0 6:16PM ; [facility] Overweight Medical Established Patient with Peggy Thrasher [facility] 12/25/2019 Last Documented On 0 1:54PM ; [facility] Z68.26 - Body mass index (BM I) 26.0-26.9, adult Medical Established Patient with Peggy Thrasher [facility] 12/25/2019 Last Documented On 0 1:54PM ; [facility] Work Phone: Evaluation note Includes: Assessments for all patient encounters Findings Encounter Date Anxiety disorder NOS BH Established Patient with Hannah Short LISWS 03/08/2023 Last Documented On 3 11:58AM ; [facility] Bipolar schizoaffective disorder BH Esta blished Patient with Hannah Short LISWS 03/08/2023 Last Documented On 3 11:58AM ; [facility] Nicotine dependence continuous BH Establ ished Patient with Hannah Short LISWS 03/08/2023 Last Documented On 3 11:58AM ; [facility] [Body mass index [BMI] 33.0- 33.9, adult] assessment of body mass index Medical Established Patient with Srinivasa Ed [facility] 03/08/2023 Last Documented On 3 12:06PM ; [facility] Chronic gastritis without hemorrhage Med ical Established Patient with Srinivasa Ed [facility] 03/08/2023 Last Documented On 3 12:06PM ; [facility] Encounter for Immunization Medical Estab lished Patient with Srinivasa Ed [facility] 03/08/2023 Last Documented On 3 12:06PM ; [facility] Nicotine dependence continuous Medical E stablished Patient with Srinivasa Ed [facility] 03/08/2023 Last Documented On 3 12:06PM ; [facility] Uncomplicated mild persistent asthma Med ical Established Patient with Srinivasa Ed [facility] 03/08/2023 Last Documented On 3 12:06PM ; [facility] Anxiety disorder NOS BH Established Patient with Lea Stone HEEL BREASTER-S 02/19/2023 Last Documented On 3 4:27PM ; [facility] Bipolar schizoaffective disorder BH Esta blished Patient with Lea Arguelles HEEL BREASTER-S 02/19/2023 Last Documented On 3 4:27PM ; [facility] Nicotine dependence BH Established Patient with Lea Stone HEEL BREASTER-S 02/19/2023 Last Documented On 3 4:27PM ; [facility] Assessment of body mass index Open Acces s - Established with Srinivasa Ed [facility] 02/19/2023 Last Documented On 3 9:22PM ; [facility] [Body mass index [BMI] 33.0- 33.9, adult] assessment of body mass index Medical Established Patient with Srinivasa Ed [facility] 02/05/2023 Last Documented On 3 3:48PM ; [facility] Anxiety disorder NOS Medical Established Patient with Srinivasa Ed [facility] 02/05/2023 Last Documented On 3 3:48PM ; [facility] Body mass index Medical Established Patient with Srinivasa Ed [facility] 01/28/2023 Last Documented On 3 8:31PM ; [facility] [Body mass index [BMI] 32.0- 32.9, adult] assessment of body mass index Medical Established Patient with Srinivasa Ed [facility] 12/31/2022 Last Documented On 3 5:25AM ; [facility] Uncomplicated mild persistent asthma Med ical Established Patient with Srinivasa Ed [facility] 12/31/2022 Last Documented On 3 5:25AM ; [facility] [Body mass index [BMI] 33.0- 33.9, adult] assessment of body mass index Medical Established Patient with Srinivasa Ed [facility] 11/30/2022 Last Documented On 3 12:28PM ; [facility] Anxiety disorder NOS Medical Established Patient with Srinivasa Ed [facility] 11/30/2022 Last Documented On 3 12:28PM ; [facility] Diabetes Risk Test Score was four score 11/30/2022 Medical Established Patient with Srinivasa Ed [facility] 11/30/2022 Last Documented On 3 12:28PM ; [facility] Uncomplicated mild persistent asthma Med ical Established Patient with Srinivasa Ed [facility] 11/30/2022 Last Documented On 3 12:28PM ; [facility] Visit for: routine adult H&P with abnormal findings Medical Established Patient with Srinivasa Boyceer [facility] 11/30/2022 Last Documented On 3 12:28PM ; [facility] [Body mass index [BMI] 30.0- 30.9, adult] assessment of body mass index Medical Established Patient with Srinivasa Boyceer [facility] 01/22/2022 Last Documented On 2 6:17PM ; [facility] Dysuria Medical Established Patient with Srinivasa Ed [facility] 01/22/2022 Last Documented On 2 6:17PM ; [facility] Bipolar schizoaffective disorder BH Esta blished Patient with Inatameka WatkinsDíaz LPCC-S 12/11/2021 Last Documented On 2 2:31PM ; [facility] Assessment of body mass inde x [Body mass index [BMI] 26.0-26.9, adult] Medical Established Patient with Srinivasa Boyceer [facility] 12/11/2021 Last Documented On 2 12:34PM ; [facility] Bipolar schizoaffective disorder BH Esta blished Patient with Ina Díaz LPCC-S 11/25/2021 Last Documented On 2 1:25PM ; [facility] Anxiety disorder NOS Medical Established Patient with Traci Juma [facility] 11/25/2021 Last Documented On 2 3:06PM ; [facility] Urinary tract infection Medical Establis hed Patient with Traic Juma [facility] 11/25/2021 Last Documented On 2 3:06PM ; [facility] Z68.27 - Body mass index [BM I] 27.0-27.9, adult Medical Established Patient with Traci Juma [facility] 11/25/2021 Last Documented On 2 3:06PM ; [facility] Anxiety disorder NOS Medical Established Patient with Traci Juma [facility] 08/13/2021 Last Documented On 2 8:18AM ; [facility] Assessment of body mass index Medical Es tablished Patient with Traci Juma [facility] 08/13/2021 Last Documented On 2 8:18AM ; [facility] Chronic gastritis without hemorrhage Med ical Established Patient with Traci Juma [facility] 08/13/2021 Last Documented On 2 8:18AM ; [facility] Diverticulosis of intestine Medical Esta blished Patient with Traci Juma [facility] 08/13/2021 Last Documented On 2 8:18AM ; [facility] Urinary tract infection Medical Establis hed Patient with Traci Juma [facility] 08/13/2021 Last Documented On 2 8:18AM ; [facility] Anxiety disorder NOS Medical Established Patient with Traci Juma [facility] 07/17/2021 Last Documented On 2 8:10AM ; [facility] Other hypothyroidism Medical Established Patient with Traci Juma [facility] 07/17/2021 Last Documented On 2 8:10AM ; [facility] Upper respiratory infection Medical Esta blished Patient with Traci Dennison [facility] 07/17/2021 Last Documented On 2 8:10AM ; [facility] Visit for: routine adult H&P with abnormal findings Medical Established Patient with Traci Dennison [facility] 07/17/2021 Last Documented On 2 8:10AM ; [facility] Visit for: screening for lip oid disorders Medical Established Patient with Traci Dennison [facility] 07/17/2021 Last Documented On 2 8:10AM ; [facility] Vitamin B12 deficiency Medical Establish ed Patient with Traci Deninson [facility] 07/17/2021 Last Documented On 2 8:10AM ; [facility] Vitamin D deficiency Medical Established Patient with Traci Juma [facility] 07/17/2021 Last Documented On 2 8:10AM ; [facility] Z68.28 - Body mass index [BM I] 28.0-28.9, adult Medical Established Patient with Traci Juma [facility] 07/17/2021 Last Documented On 2 8:10AM ; [facility] Allergic rhinitis Telemedicine Establi sted Patient with Traci Juma [facility] 07/16/2021 Last Documented On 2 8:23AM ; [facility] Exposure to COVID-19 Telemedicine Establ isted Patient with Traci Dennison [facility] 04/29/2021 Last Documented On 2 8:02PM ; [facility] Bipolar schizoaffective disorder Esta blished Patient with Farrah Jarrett LPCC-S 04/15/2021 Last Documented On 2 1:07PM ; [facility] Anxiety disorder NOS Medical Established Patient with Traci Dennison [facility] 04/15/2021 Last Documented On 2 9:06AM ; [facility] Assessment of body mass index Medical Es tablished Patient with Traci Dennison [facility] 04/15/2021 Last Documented On 2 9:06AM ; [facility] Bipolar disorder NOS Medical Established Patient with Traci Dennison [facility] 04/15/2021 Last Documented On 2 9:06AM ; [facility] Anxiety disorder NOS Telebehavioral H ealth with Farrah Jarrett LPCC-S 04/09/2021 Last Documented On 2 9:05AM ; [facility] Bipolar disorder NOS Telebehavioral H ealth with Farrah Jarrett LPCC-S 04/09/2021 Last Documented On 2 9:05AM ; [facility] Anxiety disorder NOS Established Patient with Hannah Short LISWS 04/03/2021 Last Documented On 1 7:15PM ; [facility] Bipolar I disorder, most rec ent episode, depressed Established Patient with Hannah Short LISWS 04/03/2021 Last Documented On 1 7:15PM ; [facility] Nicotine dependence Established Patient with Hannah Short LISWS 04/03/2021 Last Documented On 1 7:15PM ; [facility] Nicotine dependence Established Patient with Hannah Short LISWS 04/03/2021 Last Documented On 1 7:15PM ; [facility] Undifferentiated schizophren ia per patient reported history Established Patient with Hannah Short LISWS 04/03/2021 Last Documented On 1 7:15PM ; [facility] A home test was negative Medic al Established Patient with Traci Dennison [facility] 04/03/2021 Last Documented On 1 8:11PM ; [facility] Assessment of body mass index Medical Es tablished Patient with Traci Dennison [facility] 04/03/2021 Last Documented On 1 8:11PM ; [facility] Epilepsy, not intractable, w ithout status epilepticus Medical Established Patient with Traci Dennison [facility] 04/03/2021 Last Documented On 1 8:11PM ; [facility] Mixed affective bipolar diso rder, moderate Medical Established Patient with Traci Dennison [facility] 04/03/2021 Last Documented On 1 8:11PM ; [facility] Urinary tract infection Medical Establis hed Patient with Traci Dennison [facility] 04/03/2021 Last Documented On 1 8:11PM ; [facility] Visit for: screening for STD Medical Est ablished Patient with Traci Dennison [facility] 04/03/2021 Last Documented On 1 8:11PM ; [facility] Assessment of visit for: scr eening for human immunodeficiency virus Medical Established Patient with Peggy Thrasher [facility] 02/14/2021 Last Documented On 1 1:16PM ; [facility] Diabetes Risk Test Score was three score 02/14/2021 Medical Established Patient with Peggy Thrasher [facility] 02/14/2021 Last Documented On 1 1:16PM ; [facility] Diarrhea Medical Established Patient with Peggy Thrasher [facility] 02/14/2021 Last Documented On 1 1:16PM ; [facility] Nicotine dependence Medical Established Patient with Peggy Thrasher [facility] 02/14/2021 Last Documented On 1 1:16PM ; [facility] Z68.28 - Body mass index [BM I] 28.0-28.9, adult Medical Established Patient with Peggy Thrasher [facility] 02/14/2021 Last Documented On 1 1:16PM ; [facility] Cough Telemedicine Establisted Patient with Traci Dennison [facility] 01/01/2021 Last Documented On 1 6:31PM ; [facility] Fever Telemedicine Establisted Patient with Traci Dennison [facility] 01/01/2021 Last Documented On 1 6:31PM ; [facility] Z20.822 - Contact with and (suspected) exposure to COVID-19 Telemedicine Establisted Patient with Traci Dennison [facility] 01/01/2021 Last Documented On 1 6:31PM ; [facility] Bipolar I disorder, most rec ent episode, depressed Established Patient with Farrah Jarrett LPCC-S 06/03/2020 Last Documented On 1 10:50PM ; [facility] Paranoid schizophrenia per p atient report Established Patient with Farrah Jarrett LPCC-S 06/03/2020 Last Documented On 1 10:50PM ; [facility] Post-traumatic stress disord er per patient report Established Patient with Farrah Jarrett LPCC-S 06/03/2020 Last Documented On 1 10:50PM ; [facility] 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 Patient with Traci Dennison [facility] 06/03/2020 Last Documented On 1 8:25AM ; [facility] Overweight Medical Established Patient with Traci Dennison [facility] 06/03/2020 Last Documented On 1 8:25AM ; [facility] Z68.29 - Body mass index [BM I] 29.0-29.9, adult Medical Established Patient with Traci Dennison [facility] 06/03/2020 Last Documented On 1 8:25AM ; [facility] Anxiety disorder NOS Medical Established Patient with Traci Dennison [facility] 01/26/2020 Last Documented On 0 7:37PM ; [facility] Bipolar disorder NOS Medical Established Patient with Traci Dennison [facility] 01/26/2020 Last Documented On 0 7:37PM ; [facility] Infection of tooth Medical Established Patient w ith Traci Dennison [facility] 01/26/2020 Last Documented On 0 7:37PM ; [facility] Z68.20 - Body mass index [BM I] 20.0-20.9, adult Medical Established Patient with Traci Dennison [facility] 01/26/2020 Last Documented On 0 7:37PM ; [facility] Bipolar I disorder, most rec ent episode, mixed Established Patient with Hannah Short LISWS 01/08/2020 Last Documented On 0 11:49AM ; [facility] Generalized anxiety disorder Establis hed Patient with Hannah Short LISWS 01/08/2020 Last Documented On 0 11:49AM ; [facility] Diabetes Risk Test Score was one score 01/08/2020 Medical Established Patient with Peggy Anna Marie [facility] 01/08/2020 Last Documented On 0 1:42PM ; [facility] Overweight Medical Established Patient with Peggy Anna Marie [facility] 01/08/2020 Last Documented On 0 1:42PM ; [facility] Z68.27 - Body mass index (BM I) 27.0-27.9, adult Medical Established Patient with Peggyisis Thrasher [facility] 01/08/2020 Last Documented On 0 1:42PM ; [facility] Bipolar I disorder, most rec ent episode, mixed Established Patient with Hannah Short LISWS 12/25/2019 Last Documented On 0 6:16PM ; [facility] Generalized anxiety disorder Establis hed Patient with Hannah Short LISWS 12/25/2019 Last Documented On 0 6:16PM ; [facility] Overweight Medical Established Patient with Peggy Anna Marie [facility] 12/25/2019 Last Documented On 0 1:54PM ; [facility] Z68.26 - Body mass index (BM I) 26.0-26.9, adult Medical Established Patient with Peggy Anna Marie [facility] 12/25/2019 Last Documented On 0 1:54PM ; [facility] Work Phone: Evaluation note* 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 documented in this encounter [facility]: History general Narrative - Reported Includes: Medical History in patient's chart Description Last Updated Not planning to have a baby in the next 12 months 11/30/2022 Last Documented On 3 12:28PM ; [facility] History of anxiety disorder NOS 07/18/19 22 Last Documented On 2 8:10AM ; [facility] No previous hospitalizations 04/03/2021 Last Documented On 1 8:11PM ; [facility] History of complete colonoscopy 04/03/20 Last Documented On 1 8:11PM ; [facility] Epilepsy 12/25/2019 Last Documented On 0 1:54PM ; [facility] 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 Last Documented On 0 1:54PM ; [facility] Ovarian cyst 12/25/2019 Last Documented On 0 1:54PM ; [facility] Post-traumatic stress disorder 0 Last Documented On 0 1:54PM ; [facility] History of asthma 12/25/2019 Last Documented On 0 1:54PM ; [facility] History of schizophrenia 12/25/2019 Last Documented On 0 1:54PM ; [facility] History of bipolar disorder NOS 12/25/19 20 Last Documented On 0 1:54PM ; [facility] History of depression 12/25/2019 Last Documented On 0 1:54PM ; [facility] History of psychiatric disorders 020 Last Documented On 0 1:54PM ; [facility] Work Phone: History of Present illness Narrative History of Present Illness not supported for this document type No [facility] of [facility]: [facility] Discharge instructions* Attachments The following attachments cannot be sent through Care Everywhere. * Abdominal [facility] (Bermudian) [facility]* Attachments The following attachments cannot be sent through Care Everywhere. * Serous Otitis Media (Bermudian) * Ear: Anatomy Sketch (Bermudian) * Otitis Externa (Bermudian) documented in this [employer] Phone: Hospital Discharge instructions* Instructions* Anne Marie Montez PA-C - 11/16/2020 Call to arrange follow-up with orthopedic for further evaluation of continued symptoms. * Attachments The following attachments cannot be sent through Care Everywhere. * Wrist Sprain (Bermudian) documented in this [employer] Phone: Hospital Discharge instructions* Attachments The following attachments cannot be sent through Care Everywhere. * Coronavirus Disease (COVID-19): General Info (Bermudian) documented in this [employer] Phone: Hospital Discharge instructions* Attachments The following attachments cannot be sent through Care Everywhere. * Abdominal Pain (Bermudian) documented in this [employer] Phone: Hospital Discharge instructions* Instructions* Braydon Sierra DO - 08/11/2021 You were seen and evaluated [...] sent through Care Everywhere. * Abdominal Pain (Bermudian) documented in this [facility] Work Phone: Instructions Instructions not supported for this document type No Instructions [facility] Work Phone: Patient problem outcome Narrative Includes: Evaluations & Outcomes for active Goals No Outcomes [facility] Work Phone: Reason for referral (narrative)No Reason for Referral [facility] Work Phone: Review of systems Narrative - Reported Review of Systems not supported for this document type No Review of Systems [facility] Work Phone: Summary Purpose Family History No [...] 200907/17/2021 Last Documented On 2 8:10AM ; [facility] Mother is alive 07/17/2021 Maternal history of asthma 12/25/2019 Last Documented On 0 1:54PM ; [facility] Maternal history of cardiovascular disor russell 12/25/2019 Maternal history of oncologic disorder O verain 12/25/2019 Description Last Updated Father 200907/17/2021 Last Documented On 2 8:10AM ; [facility] Mother is alive 07/17/2021 Maternal history of asthma 12/25/2019 Last Documented On 0 1:54PM ; [facility] Maternal history of cardiovascular disor russell 12/25/2019 Maternal history of oncologic disorder O verain 12/25/2019 Description Last Updated Father 200907/17/2021 Last Documented On 2 8:10AM ; [facility] Mother is alive 07/17/2021 Maternal history of asthma 12/25/2019 Last Documented On 0 1:54PM ; [facility] Maternal history of cardiovascular disor russell 12/25/2019 Maternal history of oncologic disorder O verain 12/25/2019 Description Last Updated Father 200907/17/2021 Last Documented On 2 8:10AM ; [facility] Mother is alive 07/17/2021 Maternal history of asthma 12/25/2019 Last Documented On 0 1:54PM ; [facility] Maternal history of cardiovascular disor russell 12/25/2019 Maternal history of oncologic disorder O verain 12/25/2019 Description Last Updated Father 200907/17/2021 Last Documented On 2 8:10AM ; [facility] Mother is alive 07/17/2021 Maternal history of asthma 12/25/2019 Last Documented On 0 1:54PM ; [facility] Maternal history of cardiovascular disor russell 12/25/2019 Maternal history of oncologic disorder O verain 12/25/2019 Description Last Updated Father 200907/17/2021 Last Documented On 2 8:10AM ; [facility] Mother is alive 07/17/2021 Maternal history of asthma 12/25/2019 Last Documented On 0 1:54PM ; [facility] Maternal history of cardiovascular disor russell 12/25/2019 Maternal history of oncologic disorder O verain 12/25/2019 Description Last Updated Father 200907/17/2021 Last Documented On 2 8:10AM ; [facility] Mother is alive 07/17/2021 Maternal history of asthma 12/25/2019 Last Documented On 0 1:54PM ; [facility] Maternal history of cardiovascular disor russell 12/25/2019 Maternal history of oncologic disorder O verain 12/25/2019 Description Last Updated Father 200907/17/2021 Last Documented On 2 8:10AM ; [facility] Mother is alive 07/17/2021 Maternal history of asthma 12/25/2019 Last Documented On 0 1:54PM ; [facility] Maternal history of cardiovascular disor russell 12/25/2019 Maternal history of oncologic disorder O verain 12/25/2019 Description Last Updated Father 200907/17/2021 Last Documented On 2 8:10AM ; [facility] Mother is alive 07/17/2021 Maternal history of asthma 12/25/2019 Last Documented On 0 1:54PM ; [facility] Maternal history of cardiovascular disor russell 12/25/2019 Maternal history of oncologic disorder O verain 12/25/2019 Advance Directives No Advanced Directives Records FoundDocuments on File Type Date Recorded Patient Decision Support Analyst Expl anation ACP-Advance Directive ACP-Power of Fruit Room Hand Latest Code Status on File Code Status Date Activated Date Inactivated Comments Full Code 01/15/2015 9:37 AM 01/17/2015 8:47 PM Full Code 01/15/2015 8:36 AM 01/15/2015 9:37 AM Full Code 02/21/2014 5:08 PM 02/22/2014 1:41 PM Full Code 02/21/2014 12:09 PM 02/21/2014 5:08 PM Documents on File Type Date Recorded Patient Decision Support Analyst Expl anation Advance Directives and Living Will Power of Fruit Room Hand Directive Pat Aware Third Alliance Party Effective Date Reviewed Sta tus Declined [...] 02/21/2014 5:08 PM Directive Pat Aware Third Alliance Party Effective Date Reviewed Sta tus Declined [...] sent through Care Everywhere. * Abdominal Pain (Bermudian) documented in this encounter* Attachments The following attachments cannot be sent through Care Everywhere. * Abdominal Pain (Bermudian) documented in this encounter* Attachments The following attachments cannot be sent through Care Everywhere. * Back: Strain (Bermudian) documented in this encounter* Instructions* Regino Aguilar [...] be sent through Care Everywhere. * Cellulitis (Bermudian) documented in this encounter* Attachments The following attachments cannot be sent through Care Everywhere. * Drug Use: Marijuana (Bermudian) * Chest Pain (Bermudian) * Seizure (Bermudian) documented in this encounter* Instructions* Regino Aguilar [...] Care Everywhere. * URI (Upper Respiratory Infection) (Bermudian) documented in this encounter* Instructions* David Fish APRN - FRUIT PITTER - 06/01/2020 Return to the emergency department for worsening symptoms. When you have a stool sample bring it back to the lab for evaluation. Take Zofran as directed. * Attachments The following attachments cannot be sent through Care Everywhere. * Abdominal Pain (Bermudian) documented in this encounter* Instructions* Katlin Reaves MD - 06/18/2020 Take Zofran as needed nausea or vomiting. Continue current medications as prescribed. Follow-up with gastroenterology as scheduled. Return immediately for any worsening symptoms or any acute concerns * Attachments The following attachments cannot be sent through Care Everywhere. * Abdominal Pain (Bermudian) documented in this encounter Assessments Diagnosis Left lower quadrant abdominal pain Abdominal pain, unspecified abdominal location Hydrosalpinx Chronic salpingitis and oophoritis Diagnosis Non-surgical abdominal pain Abdominal pain, unspecified site Diagnosis Strain of lumbar region, initial encounter Findings Encounter Date Overweight Medical Established Patient with Peggy Thrasher [facility] 12/25/2019 Z68.26 - Body mass index (BM I) 26.0-26.9, adult Medical Established Patient with Peggyisis Thrasher [facility] 12/25/2019 Findings Encounter Date Bipolar I disorder, most rec ent episode, mixed Established Patient with Hannah Short [facility] 12/25/2019 Generalized anxiety disorder Establis hed Patient with Hannah Short [facility] 12/25/2019 Overweight Medical Established Patient with Peggy Anna Marie [facility] 12/25/2019 Z68.26 - Body mass index (BM I) 26.0-26.9, adult Medical Established Patient with Peggy Anna Marie [facility] 12/25/2019 Diagnosis Cellulitis of right foot Cellulitis and abscess of foot, except toes Findings Encounter Date Bipolar I disorder, most rec ent episode, mixed Established Patient with Hannah Short [facility] 01/08/2020 Generalized anxiety disorder Establis hed [facility] Diabetes Risk Test Score was one score 01/08/2020 Medical Established Patient with Peggy Anna Marie [facility] 01/08/2020 Overweight Medical Established Patient with Peggy Anna Marie [facility] 01/08/2020 Z68.27 - Body mass index (BM I) 27.0-27.9, adult Medical Established Patient with Peggy Anna Marie [facility] 01/08/2020 Bipolar I disorder, most rec ent episode, mixed Established Patient with Hannah Short [facility] 12/25/2019 [facility]ized [facility] with [facility] Short [facility] 12/25/2019 Overweight Medical Established Patient with Peggy Anna Marie [facility] 12/25/2019 Z68.26 - Body mass index (BM I) 26.0-26.9, adult Medical Established Patient with Peggy Thrasher [facility] 12/25/2019 Findings Encounter Date Anxiety disorder NOS Medical Established Patient with Traci Dennison [facility] 01/26/2020 Bipolar disorder NOS Medical Established Patient with Traci Dennison [facility] 01/26/2020 Infection of tooth Medical Established Patient with Traci Dennison [facility] 01/26/2020 Z68.20 - Body mass index [BM I] 20.0-20.9, adult Medical Established Patient with Traci Dennison [facility] 01/26/2020 Bipolar I disorder, most rec ent episode, mixed Established Patient with Hannah Short [facility] 01/08/2020 Generalized anxiety disorder Establis hed Patient with Hannah Short [facility] 01/08/2020 Diabetes Risk Test Score was one score 01/08/2020 Medical Established Patient with Peggy Thrasher [facility] 01/08/2020 Overweight Medical Established Patient with Peggy Anna Marie [facility] 01/08/2020 Z68.27 - Body mass index (BM I) 27.0-27.9, adult Medical Established Patient with Peggy Thrasher [facility] 01/08/2020 Bipolar I disorder, most rec ent episode, mixed Established Patient with Hannah Short [facility] 12/25/2019 Generalized anxiety disorder Establis hed Patient with Hannah Short [facility] 12/25/2019 Overweight Medical Established Patient with Peggy Thrasher [facility] 12/25/2019 Z68.26 - Body mass index (BM I) 26.0-26.9, adult Medical Established Patient with Peggy Thrasher [facility] 12/25/2019 Diagnosis Viral gastroenteritis Intestinal infection due [...] episode, depressed Established Patient with Farrah Jarrett [facility] 06/03/2020 Paranoid schizophrenia per p atient report Established Patient with Farrahmatthew [facility] 06/03/2020 Post-traumatic stress disord er per patient report Established Patient with Farrah Jar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 Patient with Traci Dennison [facility] 06/03/2020 Overweight Medical Established Patient with Traci Dennison [facility] 06/03/2020 Z68.29 - Body mass index [BM I] 29.0-29.9, adult Medical Established Patient with Traci Dennison [facility] 06/03/2020 Anxiety disorder NOS Medical Established Patient with Traci Dennison [facility] 01/26/2020 Bipolar disorder NOS Medical Established Patient with Traci Dennison [facility] 01/26/2020 Infection of tooth Medical Established Patient with Traci Dennison [facility] 01/26/2020 Z68.20 - Body mass index [BM I] 20.0-20.9, adult Medical Established Patient with Traci Dennison [facility] 01/26/2020 Bipolar I disorder, most rec ent episode, mixed Established Patient with Hannah Short [facility] 01/08/2020 Generalized anxiety disorder Establis hed Patient with Hannah Short [facility] 01/08/2020 Diabetes Risk Test Score was one score 01/08/2020 Medical Established Patient with Peggy Thrasher [facility] 01/08/2020 Overweight Medical Established Patient with Peggy Thrasher [facility] 01/08/2020 Z68.27 - Body mass index (BM I) 27.0-27.9, adult Medical Established Patient with Peggy Thrasher [facility] 01/08/2020 Bipolar I disorder, most rec ent episode, mixed Established Patient with Hannah Short [facility] 12/25/2019 Generalized anxiety disorder Establis hed Patient with Hannah Short [facility] 12/25/2019 Overweight Medical Established Patient with Pegyg Thrasher [facility] 12/25/2019 Z68.26 - Body mass index (BM I) 26.0-26.9, adult Medical Established Patient with Peggy Anna Marie [facility] 12/25/2019 Diagnosis Chronic abdominal pain- Primary Abdominal pain, unspecified site Findings Encounter Date Diabetes Risk Test Score was one score 01/08/2020 Medical Established Patient with Peggy Thrasher [facility] 01/08/2020 Overweight Medical Established Patient with Peggy Anna Marie [facility] 01/08/2020 Z68.27 - Body mass index (BM I) 27.0-27.9, adult Medical Established Patient with Peggy Anna Marie [facility] 01/08/2020 Bipolar I disorder, most rec ent episode, mixed Established Patient with Hannah Short [facility] 12/25/2019 Generalized anxiety disorder Establis hed Patient with Hannah Short [facility] 12/25/2019 Overweight Medical Established Patient with Peggy Anna Marie [facility] 12/25/2019 Z68.26 - Body mass index (BM I) 26.0-26.9, adult Medical Established Patient with Peggy Thrasher [facility] 12/25/2019 Reason for Referral Specialty Diagnoses / Procedures Referred By Brayden crook Referred To Contact Radiology Diagnoses Diarrhea, unspecified type Procedures NM GASTRIC EMPTYING Mirza Amanda, CATERING SERVER - FR[employer] PITTER [address] [place] [address] Referral ID Status Reason Start Date Expiration Date Visits Re quested Visits Authorized [id number] Closed 12/05/2021 12/05/2022 3 3 Specialty Diagnoses / Procedures Referred By Contac t Referred To Contact Diagnoses Palpitations Procedures Cardiac event monitor Srinivasa Jhaveri, CATERING SERVER - STEWARD/STEWARDESS [address] [place] [address] Referral ID Status Reason Start Date Expiration Date Visits Re quested Visits Authorized [id number] Closed 12/15/2021 12/15/2022 1 1 Specialty Diagnoses / Procedures Referred By Contac t Referred To Contact Diagnoses Darier's disease Estelita Winkler, PA [address] [facility] [address] [place] [address] Referral ID Status Reason Start Date Expiration Date V isits Requested Visits Authorized [id number] Pending Review 1 1 Instructions Instructions not supported for [...] section and content) DATE CREATED AUTHOR 11/02/[address] [facility] DATE CREATED AUTHOR AUTHOR'S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
[2023-10-30 22:29] VITALS: BP 136/69; PULSE 77; TEMP 36.9; O2SAT 99; BMI 31.5
--- NOTE | 2023-10-30 22:37 | XR_ITS ---
The [address] [address] Patient Name: ABRAHAN WOODS MRN: [id number] date: 1990 Sex: F Assigned Patient Location: ER Current Patient Location: Accession/Order Number: [id number] Exam Date: 10/30/2023 23:00 Report Date: 10/31/2023 01:29 At the request of: ROSALIE ONEAL Procedure: XR ankle RT min 3V EXAM: XR ankle RT min 3V, XR foot RT min 3V HISTORY: FALL COMPARISON: Right foot x-ray 07/22/2023 07/01/2023 FINDINGS: AP, lateral, and oblique views of the right ankle and right foot for a total 6 images.. Distal tibia, fibula, talus, calcaneus, midfoot, metatarsals and phalanges intact. Intact ankle mortise. No fracture, dislocation, soft tissue swelling or joint effusion. XR/XR ankle RT min 3V IMPRESSION: 1. No acute osseous injury of the right ankle or foot with intact ankle mortise. 2. Normal alignment. Electronically authenticated by: PATEL ARAMBULA Date: 10/31/2023 01:29
--- NOTE | 2023-10-30 22:37 | XR_ITS ---
The [address] [address] Patient Name: ABRAHAN WOODS MRN: [id number] date: 1990 Sex: F Assigned Patient Location: ER Current Patient Location: ER Accession/Order Number: [id number] Exam Date: 10/30/2023 23:00 Report Date: 10/31/2023 01:29 At the request of: ROSALIE ONEAL Procedure: XR foot RT min 3V EXAM: XR ankle RT min 3V, XR foot RT min 3V HISTORY: FALL COMPARISON: Right foot x-ray 07/22/2023 07/01/2023 FINDINGS: AP, lateral, and oblique views of the right ankle and right foot for a total 6 images.. Distal tibia, fibula, talus, calcaneus, midfoot, metatarsals and phalanges intact. Intact ankle mortise. No fracture, dislocation, soft tissue swelling or joint effusion. XR/XR foot RT min 3V IMPRESSION: 1. No acute osseous injury of the right ankle or foot with intact ankle mortise. 2. Normal alignment. Electronically authenticated by: PATEL ARAMBULA Date: 10/31/2023 01:29
--- NOTE | 2023-10-31 00:09 | ED.LOWEXI1 ---
HPI HPI - Extremity Injury (Lower) General Chief Complaint: Extremity Injury, Lower Stated Complaint: lower extremity injury Time Seen by Provider: 10/30/23 23:51 Source: patient Mode of arrival: Wheelchair Limitations: no limitations History of Present Illness HPI Narrative: 33-year-old female presents for pain in the right foot and ankle. It happened a few hours ago when she stepped in a hole in her yard and she twisted her foot. She points to the entire foot and ankle to indicate where it hurts but it seems to be worst at the lateral malleolus. The pain is moderate to severe and worse when she walks. Related Data Home Medications ?Medication ?Instructions ?Recorded ?Confirmed amitriptyline 50 mg tablet 50 mg PO QDAY 10/15/22 07/20/23 oxcarbazepine 300 mg tablet 300 mg PO BID 10/15/22 07/20/23 buspirone 10 mg tablet 10 mg PO BID 07/20/23 07/20/23 Previous Rx's ?Medication ?Instructions ?Recorded etodolac 400 mg tablet 400 mg PO Q8H PRN pain #20 tabs 10/31/23 Allergies Allergy/AdvReac Type Severity Reaction Status Date / Time adhesive tape Allergy Rash Verified 10/30/23 22:29 bales Allergy throat Verified 10/30/23 22:29 swelling latex Allergy Rash Verified 10/30/23 22:29 morphine AdvReac Severe Vomiting Verified 10/30/23 22:29 Opioid HPI Opioid Management Most Recent Pain and Opioid Data: Last Pain Scale 8 10/30/23 22:38 Review of Systems ROS Narrative A ten point review of systems is negative except as noted above. PFSH PFS Medical History (Updated 10/31/23 @ 01:40 by Ar Garcia MD) Clostridium difficile infection ?A49.8 - Other bacterial infections of unspecified site (ICD-10) MRSA (methicillin resistant Staphylococcus aureus) ?A49.02 - Methicillin resistant Staphylococcus aureus infection, unspecified site (ICD-10) Skin cancer ?C44.90 - Unspecified malignant neoplasm of skin, unspecified (ICD-10) Anemia ?D64.9 - Anemia, unspecified (ICD-10) Back pain ?M54.9 - Dorsalgia, unspecified (ICD-10) Arthritis ?M19.90 - Unspecified osteoarthritis, unspecified site (ICD-10) Insomnia ?G47.00 - Insomnia, unspecified (ICD-10) Panic attacks ?F41.0 - Panic disorder [episodic paroxysmal anxiety] (ICD-10) Bipolar disorder ?F31.9 - Bipolar disorder, unspecified (ICD-10) Depression ?F32.A - Depression, unspecified (ICD-10) Anxiety ?F41.9 - Anxiety disorder, unspecified (ICD-10) Pneumonia ?J18.9 - Pneumonia, unspecified organism (ICD-10) Asthma ?J45.909 - Unspecified asthma, uncomplicated (ICD-10) Migraine ?G43.909 - Migraine, unspecified, not intractable, without status migrainosus (ICD-10) Seizures ?R56.9 - Unspecified convulsions (ICD-10) Kidney stones ?N20.0 - Calculus of kidney (ICD-10) Heartburn ?R12 - Heartburn (ICD-10) Palpitations ?R00.2 - Palpitations (ICD-10) Irregular heart beat ?I49.9 - Cardiac arrhythmia, unspecified (ICD-10) Dyspareunia Dysmenorrhea ?N94.6 - Dysmenorrhea, unspecified (ICD-10) Menorrhagia ?N92.0 - Excessive and frequent menstruation with regular cycle (ICD-10) Pelvic pain ?R10.2 - Pelvic and perineal pain (ICD-10) Postoperative nausea and vomiting ?R11.2 - Nausea with vomiting, unspecified (ICD-10) ?Z98.890 - Other specified postprocedural states (ICD-10) Delayed recovery from anesthesia Surgical History (Updated 10/15/22 @ 09:30 by Traci Cadet NP) History of tonsillectomy and adenoidectomy ?Z90.89 - Acquired absence of other organs (ICD-10) History of hernia repair ?Z98.890 - Other specified postprocedural states (ICD-10) ?Z87.19 - Personal history of other diseases of the digestive system (ICD-10) History of endometrial ablation ?Z98.890 - Other specified postprocedural states (ICD-10) History of cholecystectomy (04/07/22) ?Z90.49 - Acquired absence of other specified parts of digestive tract (ICD-10) History of tubal ligation ?Z98.51 - Tubal ligation status (ICD-10) Family History (Updated 10/15/22 @ 09:30 by Traci Cadet NP) Other Family history of COPD (chronic obstructive pulmonary disease) Family history of breast cancer Family history of cervical cancer Family history of coronary artery disease Family history of diabetes mellitus Family history of emphysema Family history of heart disease Family history of lung cancer Family history of myocardial infarction Family history of prostate cancer Family history of renal failure Family history of stroke Social History Within the past year, how often did you have a drink containing alcohol: monthly or less Smoking status: Heavy tobacco smoker What tobacco products do you use: cigarettes Packs per day: 3 Years smoked: 7 Smoking pack-years: 21.00 Non-prescribed substance use: denies use Highest level of school completed/degree received: high school graduate Exam Narrative Exam Narrative: Nurses note and vital signs reviewed and patient is not hypoxic. General: The patient appears in no apparent distress. Skin: Warm, dry, no pallor noted. There is no rash noted. Head: Normocephalic, atraumatic Eye: Normal conjunctiva, no drainage Ears, Nose, Mouth, and Throat: oral mucosa is moist. Nares patent. Cardiovascular: Regular Rate and Rhythm Respiratory: Patient is in no distress, no accessory muscle use GI: Soft and nontender Musculoskeletal: No obvious deformity in the right foot and ankle. Skin intact. She has diffuse tenderness. Neurological: A&O, normal speech Psychiatric: Cooperative Constitutional Vital Signs, click to edit/add: Last Vital Signs Temp 98.4 F 10/30/23 22:29 Pulse 77 10/30/23 22:29 Resp 20 10/30/23 22:29 BP 136/69 10/30/23 22:29 Pulse Ox 99 10/30/23 22:29 O2 Del Method Room Air 10/30/23 22:29 Course Vital Signs Vital signs: Vital Signs Temperature 98.4 F 10/30/23 22:29 Pulse Rate 77 10/30/23 22:29 Respiratory Rate 20 10/30/23 22:29 Blood Pressure 136/69 10/30/23 22:29 Pulse Oximetry 99 10/30/23 22:29 Oxygen Delivery Method Room Air 10/30/23 22:29 Temperature 98.4 F 10/30/23 22:29 Pulse Rate 77 10/30/23 22:29 Respiratory Rate 20 10/30/23 22:29 Blood Pressure 136/69 10/30/23 22:29 Pulse Oximetry 99 10/30/23 22:29 Oxygen Delivery Method Room Air 10/30/23 22:29 MDM - Extremity Injury (Lower) MDM Narrative Medical decision making narrative: X-rays were read as negative by the radiologist. Shin wrap applied, application checked by me and found to be appropriate, she is neurovascularly intact. She is placed on crutches and was referred to Dr. Serg Pearce. Treatment diagnosis and follow-up were discussed with the patient. Differential Diagnosis Differential diagnosis: Likely ankle sprain and strain and ankle fracture Imaging Data Foot and ankle x-rays: Radiologist's impression: ITS Impressions Ankle X-Ray 10/30/23 22:37 IMPRESSION: 1. No acute osseous injury of the right ankle or foot with intact ankle mortise. 2. Normal alignment. Electronically authenticated by: PATEL ARAMBULA Date: 10/31/2023 01:29 Foot X-Ray 10/30/23 22:37 IMPRESSION: 1. No acute osseous injury of the right ankle or foot with intact ankle mortise. 2. Normal alignment. Electronically authenticated by: PATEL ARAMBULA Date: 10/31/2023 01:29 Discharge Plan Discharge Stand Alone Forms: Portal Instructions Chief Complaint: Extremity Injury, Lower Clinical Impression: Ankle sprain Patient Disposition: Home, Self-Care Time of Disposition Decision: 01:39 Condition: Good Mode of Transportation: Private Vehicle Prescriptions / Home Meds: New etodolac 400 mg tablet 400 mg PO Q8H PRN (Reason: pain) Qty: 20 0RF No Action oxcarbazepine 300 mg tablet 300 mg PO BID Hold Instructions: pt decision amitriptyline 50 mg tablet 50 mg PO QDAY buspirone 10 mg tablet 10 mg PO BID Print Language: [place] Instructions: Ankle Sprain (ED), Crutch Instructions (ED), Ice Pack Application (ED) Referrals: Jana Kramer NP [Primary Care Provider] - 1 week Carlos Reynolds DPM [Physician] - 1 week
[2023-10-31] MEDS: IBUPROFEN 400 MG TABLET 800 MG PO (01:39)
== END 2023-10-31 01:54 | disposition home or self-care (01) ==
PROVIDERS: Emergency Provider Emergency Medicine; PCP Nurse Practitioner
DX: S93.401A Sprain of unspecified ligament of right ankle, initial encounter (principal); W18.42XA Slipping, tripping and stumbling without falling due to stepping into hole or opening, initial encounter; F17.210 Nicotine dependence, cigarettes, uncomplicated
CPT/HCPCS: 73610; 73630; 99283

== ENCOUNTER 2023-11-03 10:49 | Outpatient (OUT) | payer OTHER, SELFPAY ==
--- NOTE | 2023-11-03 | XR_ITS ---
[address] [address] Patient Name: ABRAHAN WOODS MRN: [id number] date: 1990 Sex: F Assigned Patient Location: Current Patient Location: Accession/Order Number: [id number] Exam Date: 11/03/2023 10:50 Report Date: 11/04/2023 07:08 At the request of: TAMELA OLIVIER Procedure: XR ankle RT min 3V PROCEDURE: XR ankle RT min 3V COMPARISON: 10/30/2023 HISTORY: RIGHT ANKLE PAIN FINDINGS: BONES:No fracture, acute abnormality, or significant arthropathy. SOFT TISSUES:Negative. No visible soft tissue swelling. EFFUSION:None visible. OTHER: Negative. XR/XR ankle RT min 3V IMPRESSION: No acute abnormality Electronically authenticated by: BRIGETTE PERKINS Date: 11/04/2023 07:08
== END 2023-11-03 10:50 | disposition home or self-care (01) ==
LOC: EC 10:49
PROVIDERS: PCP Nurse Practitioner; Visit Provider Podiatrist Foot & Ankle Surgery
DX: M25.571 Pain in right ankle and joints of right foot (principal)
CPT/HCPCS: 73610

== ENCOUNTER 2023-11-10 12:48 | Outpatient (RCR) | payer OTHER, SELFPAY | END 2023-11-19 09:52 | disposition home or self-care (01) | LOC: PT 12:48 | PROVIDERS: PCP Nurse Practitioner; Visit Provider Podiatrist Foot & Ankle Surgery | DX: S93.401D Sprain of unspecified ligament of right ankle, subsequent encounter (principal); R26.89 Other abnormalities of gait and mobility; R26.9 Unspecified abnormalities of gait and mobility | CPT/HCPCS: 97110; 97161 ==

== ENCOUNTER 2024-02-14 06:30 | Outpatient (OUT) | payer OTHER, SELFPAY ==
--- OUTSIDE RECORDS SUMMARY | 2024-02-14 06:37 | XMS_ITS | CCD ---
Author Organization [facility] CliniSypr Care Team Providers Care Herbarium Worker Name Role Phone Unavailable Primary Care Provider UnavailPeggy Santos Primary Care Provider [phone] Peggy Thrasher Primary Care Provider Unavailable Primary Care Provider Unavailbeatrice vilchis Anna Marie 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 - BLOCK MECHANIC, Peggy Sheikh Primary Care Provider Anna Marie KRAFT, Peggy Primary Care Provider Juma KRAFT, Traci Primary Care Provider Juma COLLIER - BLOCK MECHANIC, Traci Primary Care Provide r Ed COLLIER - SUPPORT REPRESENTATIVE, Srinivasa Rodríguez Primary Care Provider Ed 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 - SUPPORT REPRESENTATIVE, Srinivasa Rodríguez Primary Care Provider Ed COLLIER - SUPPORT REPRESENTATIVE, Srinivasa Rodríguez Primary Care Provider PAY ., DR RIVERA Admitting Unavailable PAY ., DR IRVERA Attending Unavailable PAY ., DR RIVERA Consulting Unavailable REQUEST, DR NONE LISTED Primary Care Unavaila ble FELICIA ., SUELLEN Consulting Unavailable LORRIE CESPEDES Consulting Unavailable VICK DEL REAL Attending Unavailable VICK DEL REAL Admitting Unavailable FELICIA ., SUELLEN Consulting Unavailable REQUEST, NONE LISTED Primary Care Unavaila VICK Harmon Attending Unavailable MIRTHA, DR KIRK Pineda Consulting Unavailable REQUEST, NONE LISTED Primary Care Unavaila ble VICK DEL REAL Admitting Unavailable HAY ., DR MEHTA Consulting Unavailable REQUEST, NONE LISTED Primary Care Unavaila ble LASHONDA ., DR BUTLER Admitting Unavailable LASHONDA ., DR BUTLER Attending Unavailable LASHONDA ., DR BUTLER Consulting Unavailable REQUEST, NONE LISTED Primary Care Unavaila ble LASHONDA ., DR BUTLER Admitting Unavailable LASHONDA ., DR BUTLER Attending Unavailable LASHONDA ., DR BUTLER Consulting Unavailable MIRTHA, DR KIRK Pineda Consulting Unavailable De BLOCK MECHANIC, Srinivasa Primary Care Provider ED, SRINIVASA L Primary Care Unavailable ED, SRINIVASA L Referring Unavailable ED, SRINIVASA L Referring Unavailable ED, SRINIVASA L Primary Care Unavailable [place], Leo Primary Care Provider AMIRA Thrasher Primary Care Provider Valentin Gallego Attending Provider ED, SRINIVASA L Primary Care Unavailable JAMES LONG Attending Unavailable JANA KRAMER. Primary Care Unavailable DORKOSKIE, BRYANT D Referring Unavailable ED, SRINIVASA L Primary Care Unavailable DORKOSKIE, BRYANT D Referring Unavailable ED, SRINIVASA L Primary Care Unavailable DORKOSKIE, BRYANT D Referring Unavailable ED, SRINIVASA L Primary Care Unavailable Aichholz SUPPORT REPRESENTATIVE, Jana Unavailable Amanda 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-BLOCK MECHANIC, Mirza Harvey Attending U navailable Aichholz 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-BLOCK MECHANIC, Jana Georgette Primary Care Unava ilable Amanda 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-BLOCK MECHANIC, Mirza Harvey Attending U navailable Aichholz 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-BLOCK MECHANIC, Jana Georgette Primary Care Unava ilable Aichholz 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-BLOCK MECHANIC, Jana Georgette Primary Care Unava ilable Parmjit Bae MD Attending Unavai lable Aichholz 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-BLOCK MECHANIC, Jana Georgette Primary Care Unava ilable Duc Rascon MD Attending Unavai lable Amanda 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-BLOCK MECHANIC, Mirza Harvey Attending U navailable Aichholz 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-BLOCK MECHANIC, Jana Georgette Primary Care Unava ilable aKylyn [place], [place] Provider Primary Care Provi russell DO [facility] Emergency Provider Jana Kramer Primary Care Provider JANA KRAMER Attending Unavailable ESTELITA WINKLER Attending Unavailable AICHJANA APPLE Referring Unavailable AICHHOLJANA Almonte Attending Unavailable AICHHOLZ, JANA Referring Unavailable SUELLEN BREWSTER Attending Unavailable LASHONDA, VALENTIN Attending Unavailable ESTELITA WINKLER Attending Unavailable LOR-NOSSEK, SHAKIRA M Attending Unavailab le AICHHOLZ, JANA Referring Unavailable LOR-NOSSEK, SHAKIRA M Attending Unavailab le AICHHOLZ, JANA Attending Unavailable AICHHOLZ, JANA Attending Unavailable AICHHOLZ, JANA Referring Unavailable LOR-NOSSEK, SHAKIRA M Attending Unavailab le AICHHOLZ, JANA Attending Unavailable BUSTAMANTE, BHARAT Attending Unavailable LRO-NOSSEK, SHAKIRA M Referring Unavailab le BUSTAMANTE, BHARAT Attending Unavailable BUSTAMANTE, BHARAT Attending Unavailable ESTELITA WINKLER Attending Unavailable CHIDIHHOLSuzy, JANA Attending Unavailable Peggy Thrasher Primary Care Unavailable Lashonda, Valentin Admitting Unavailable Lashonda, Valentin Attending Unavailable Jana Kramer J Primary Care Unavailable Khang Colon Attending Unavailable Khang Colon Admitting Unavailable Allergies Allergy Classification Reported Allergen(s) Allergy Type Date of Onset Reaction(s) Facility Adhesive Tape (3 sources) Adhesive Tape Substance Allergy 6 [facility] Latex (3 sources) Latex Substance Allergy 2 [facility] (20 sources) Adhesive Tape; Translations: [adhesive tape] Propensity to adverse reactions to drug 6 [place] (20 sources) Latex; Translations: [Latex] Propensity to adverse reactions to drug 2 [place] (20 sources) Eggs Or Egg-Derived Products Propensity to adverse reactions to drug 2 [place] (20 sources) tracy allergenic extract; Translations: [Tracy] Drug Allergy 2 Hives, Itching, Unknown [facility] Repository (13 sources) egg extract; Translations: [Egg] Drug Allergy 2 [facility] Repository (13 sources) Fish - dietary; Translations: [Fish] Allergy to substance 2 [facility] (1 source) Latex Drug allergy (disorder) 3 [facility] Repository (1 source) piperazine Drug Allergy [facility] Repository (9 sources) Morphine Derivatives; Translations: [Morphine Derivatives] Drug allergy 3 Nausea [facility] (8 sources) Latex Allergy to substance 2 Swelling, Unknown [facility] Healthcare Work Phone: (10 sources) Morphine; Translations: [morphine] Drug Allergy 3 Unknown [facility] Healthcare (8 sources) Wound Dressing Adhesive Drug Intolerance 6 Unknown [facility] Healthcare (5 sources) QUEtiapine Drug Allergy 4 Other [facility] Healthcare (1 source) Egg; Translations: [Eggs] Propensity to adverse reactions to food (disorder) [facility] Repository (1 source) Latex Drug allergy (disorder) 4 [facility] Repository (1 source) Morphine Drug Allergy 4 [facility] Repository Medications Current Medications Medication Drug [...] tablet 1 tablet Start: 05-07-2018 End: 03-11-2020 [place] 5-325 MG OR TABS 05/07 - 03/11/2020 Provider: Conversion Provider Start: 05-07-2018 End: 03-11-2020 [facility] MISC 05/07/2018 - 02/12 Provider: Start: 05-07-2018 End: 05-07-2018 [facility] MISC 05/07/2018 - 04/13 Provider: [id number] 200 actuat albuterol 0.09 mg/actuat metered dose inhaler (20 sources) beta2-Adrenergic Agonist Start: 10-18-2023 take 2 puff(s) by inhalation every six hours for wheezing albuterol HFA 90 mcg/act inhaler Indications: Bronchitis Inhale 2 puffs every 6 (six) hours if needed for shortness of breath or wheezing 18 g 1 10/18/2023 Active Start: 07-17-2021 End: 11-30-2022 Ventolin HFA 108 [...] End: 03-11-2020 ALBUTEROL SULFATE 1.25 mg/3 mL [facility] [place]04[place]2015 - 03/11/2020 Provider: Start: 07-04-2015 End: 07-04-2015 ALBUTEROL SULFATE 1.25 mg/3 mL [facility] [place]/04/2015 - 07/04/2015 Provider: take 2 puff(s) by in halation every four hours albuterol HFA 90 mcg/act inhaler Inhale 2 puffs every 4 (four) hours if needed. 0 Active aluminum hydroxide 80 mg/ml / magnesium hydroxide 80 mg/ml / simethicone 8 mg/ml oral suspension (14 sources) Start: 02-05-2021 take 15 mL by mouth twice daily as needed for pain aluminum & magnesium hydroxide-simethicone (MAALOX MAX) 400-400-40 MG/5ML SUSP Take 15 mLs by mouth 2 times daily as needed (abdominal pain) 100 mL 0 02/05/2021 Active amoxicillin 875 mg / clavulanate 125 mg oral tablet (20 sources) Penicillin-class Antibacterial Start: 02-08-2024 End: 02-18-2024 take 1 tablet by mouth in the morning amoxicillin-clavulanate (Augmentin) 875-125 MG tablet Indications: URI, acute Take 1 tablet (875 mg) by mouth in the morning and 1 tablet (875 mg) before bedtime. Do all this for 10 days. Take with food. 20 tablet 02/08/2024 02/18/2024 Active Start: 02-08-2024 take 1 tablet by vinh th once daily Amoxicillin-Pot Clavulanate Active 1 TAB PO Daily February 08, 2024 12:00am Start: 02-05-2023 End: 03-08-2023 Amoxicillin-Pot Clavulanate 875-125 MG Oral Tablet 02/05/2023 - 03/08/2023 Provider: Srinivasa Jhaveri CNP Start: 01-26-2020 End: 06-03-2020 Amoxicillin-Pot Clavulanate 500-125 MG Oral Tablet 01/26/2020 - 06/03/2020 Provider: Traci Dennison BLOCK MECHANIC End: 06-06-2021 take 1 tablet by mouth twice daily amoxicillin-clavulanate (AUGMENTIN) 875-125 MG per tablet Take 1 tablet by mouth 2 times daily 0 06/06/2021 Discontinued (Therapy completed) ARIPiprazole 10 mg oral tablet (20 sources) [...] tablet (20 sources) Histamine-1 Receptor Antagonist Start: 11-04-2023 take 1 tablet by mouth once daily cetirizine (ZyrTEC) 10 MG tablet Indications: Environmental and seasonal allergies Take 1 tablet (10 mg) by mouth Daily 30 tablet 5 11/04/2023 Active Start: 05-12-2023 End: 06-11-2023 take 1 tablet [...] Start: 11-10-2016 End: 11-10-2016 ZYRTEC [facility] 11/10[facility]2016 - 11/10/2016 Provider: cholecalciferol 0.025 mg [...] G/ACT Nasal Suspension 11/30/2022 Provider: Srinivasa Jhaveri BLOCK MECHANIC take 2 spray(s) nasa l route once daily fluticasone (Flonase) 50 MCG/ACT nasal spray Administer 2 sprays into each nostril Daily Active take 1 spray(s) nasa l route once daily fluticasone (FLONASE) 50 MCG/ACT nasal spray 1 spray by Each Nostril route daily 0 Active hydrocortisone 25 mg/ml topical cream (8 sources) Corticosteroid Start: 07-27-2023 End: 01-28-2024 Hydrocortisone Active 1 APPLIC TOPICAL Twice daily February 08, 2024 12:00am hydrocortisone 10 mg/ml / neomycin 3.5 mg/ml / polymyxin b [id number] unt/ml otic suspension (1 source) Aminoglycoside Antibacterial, Polymyxin-class Antibacterial, Corticosteroid Start: 10-09-2020 fwdqgrbg-kgiwgwbne-x y drocortisone (CORTISPORIN) otic suspension 3 drop Start: 10-09-2020 [...] 500 MG OR TB24 - 03/11/2020 Provider: lumateperone 42 mg oral capsule (5 sources) Start: 10-05-2023 End: 02-08-2024 take 1 capsule by mouth once daily Lumateperone Tosylate (Caplyta) 42 MG capsule Indications: Bipolar 1 disorder (CMS/HCC) Take 42 mg by mouth Daily 30 capsule 1 10/05/2023 02/08/2024 Discontinued (Ineffective) naproxen 500 mg oral tablet (20 sources) Nonsteroidal Anti-inflammatory Drug Start: 07-03-2021 End: 07-10-2021 take 1 tablet by mouth twice daily at mealtime naproxen (NAPROSYN) 500 MG tablet Take 1 tablet by mouth 2 times daily (with meals) for 7 days 14 tablet 0 07/03/2021 Active Start: 07-04-2015 End: 03-11-2020 Naproxen 500 MG OR TABS /07/2015 - 03/11/2020 Provider: omeprazole 40 mg delayed [...] 09-08-2016 End: 03-11-2020 ZOFRAN ODT 4 MG [facility] [place]17 - 03/11/2020 Provider: Start: 09-08-2016 End: 09-08-2016 ZOFRAN ODT 4 MG [facility] [place]17 - 09/08/2016 Provider: pantoprazole 40 mg delayed release oral tablet (11 sources) Proton Pump Inhibitor Start: 02-01-2024 take 40 mg by mouth once daily Pantoprazole Active 40 MG PO Daily February 08, 2024 12:00am Start: 12-31-2022 Pantoprazole S odium 40 MG Oral Tablet Delayed Release 12/31/2022 Provider: Phytosterol Iubtsq-CYZ-KPR (VAYAROL PO) (1 source) take 4.5 mg by mouth once daily Phytosterol Kuuuup-GJY-KBR (VAYAROL PO) Take 4.5 mg by mouth nightly 0 Active PHYTOSTEROL PJKUBH-RLA-QZA PO (3 sources) take 4.5 mg by mouth at bedtime PHYTOSTEROL FNTTSL-BLY-SEQ PO Take 4.5 mg by mouth at bedtime 0 Active prazosin 1 mg oral capsule (20 sources) alpha-Adrenergic Michelle Start: 023 End: 023 take 1 capsule by mouth at bedtime prazosin (Minipress) 1 MG capsule TAKE 1 CAPSULE BY MOUTH AT BEDTIME FOR PTSD type nightmares 0 06/29/2022 Active Probiotic Product (PROBIOTIC DAILY PO) (1 source) Probiotic Produc t (PROBIOTIC DAILY PO) Take by mouth 0 Active promethazine hydrochloride 25 mg oral tablet (20 sources) Phenothiazine Start: End: take 1 tablet by mouth three times daily as needed for nausea promethazine (PHENERGAN) 25 MG tablet Take 1 tablet by mouth 3 times daily as needed for Nausea 12 tablet 0 02/28/2020 03/06/2020 Active Start: 08-01-2015 End: 03-11-2020 PROMETHAZINE 25 MG MISC 07/12 - 03/11/2020 Provider: Start: 08-01-2015 End: 08-01-2015 PROMETHAZINE 25 MG MISC 07/12 - 08/01/2015 Provider: sertraline 50 mg oral tablet (4 sources) Serotonin Reuptake Inhibitor Start: 10-04-2023 End: 10-03-2024 take 1 tablet by mouth once daily sertraline (Zoloft) 50 MG tablet Indications: Bipolar 1 disorder (CMS/HCC) , DONG (generalized anxiety disorder) (CMS/HCC) Take 1 tablet (50 mg) by mouth Daily 30 tablet 2 10/04/2023 02/08/2024 Discontinued (Therapy completed) SUMAtriptan 25 mg oral tablet (7 sources) [...] Active triamcinolone acetonide 1 mg/ml topical cream (9 sources) Corticosteroid Start: 01-28-2024 triamcinolone (Kenalog) 0.1 % cream Indications: Darier's disease Apply to affected areas on the body bid when flared. Avoid the face, armpits, and groin 80 g 11 01/28/2024 Active Start: 07-27-2023 End: 01-28-2024 triamcinolone (Kenalog) 0.1 % cream Indications: Darier's disease External for 30 Days 07/27/2023 01/28/2024 Discontinued Start: 05-24-2023 End: 06-23-2023 triamcinolone (Kenalog) 0.1 % cream Indications: Darier's disease Apply topically 2 (two) times a day as needed for rash Apply to affected areas on the body when itchy. Avoid the face, armpits, and groin 240 g 11 05/24/2023 06/23/2023 Active Vitamin D 25 MCG (1000 UT) O ral Tablet (20 sources) Start: 02-23-2023 End: 08-22-2023 Vitamin D 25 MCG (1000 UT) O ral Tablet 02/23/2023 - 08/22/2023 Provider: Srinivasa Jhaveri [...] System Stimulant, Methylxanthine Start: 02-14-2021 End: 01-28-2023 Etklrvtiyu-IKIV-Sheudkgc 50-325-40 MG Oral Tablet 02/14/2021 - 01/28/2023 Provider: Peggy Thrasher CNP Start: 08-15-2017 End: 12-24-2019 take 1 tablet by mouth every six hours as needed for headache yyhtsyqawb-zmkzkxdhcfhfh-urfnavlp (ESGIC ) 50-325-40 MG per tablet Take [...] mouth twice daily as needed for headache ypuseiidhk-bbkrinlomuhtv-ymnbskju (CECY CET, ESGIC) 50-325-40 MG per tablet Take 1 tablet by mouth 2 times daily as needed for Headaches 0 Active acetaminophen 325 mg / butalbital 50 mg / caffeine 40 mg / codeine phosphate 30 mg oral capsule (20 sources) Opioid Agonist, Barbiturate, Central Nervous System Stimulant, Methylxanthine Start: 02-14-2021 End: 02-14-2021 Aafxteechc-JCTP-Btwh-Cod 52-463-37-30 MG Oral Capsule 02/14/2021 - 02/14/2021 Provider: [...] by mouth 0 Active AEROECLIPSE REUSABLE BAN MIS C (7 sources) Start: 07-04-2015 End: 07-04-2015 AEROECLIPSE REUSABLE BAN MIS C 07/04/2015 - 07/04/2015 Provider: AEROECLIPSE REUSABLE BAN MIS C (20 sources) Start: 07-04-2015 End: 03-11-2020 AEROECLIPSE REUSABLE BAN MIS C 07/04/2015 - 03/11/2020 Provider: aluminum & magnesium hydroxide-simethicone (MAALOX) 30 [...] oral tablet (20 sources) Tricyclic Antidepressant Start: 12-14-2023 End: 02-08-2024 take 50 mg by mouth at bedtime Amitriptyline Discontinued 50 MG PO Bedtime February 08, 2024 12:00am February 08, 2024 10:16pm Start: 05-12-2023 End: 06-11-2023 take 1 tablet [...] 01/03/2020 - 01/08/2020 Provider: [address] DDJj azithromycin 250 mg oral tablet (20 sources) Macrolide Antimicrobial Start: 08-01-2015 End: 03-11-2020 Azithromycin 250 MG OR TABS 08/01/2015 - 03/11/2020 Provider: Brompheniramine / Pseudoephedrine (20 sources) alpha-Adrenergic Agonist Start: 09-08-2016 End: 03-11-2020 BROMFED DM 2-30-10 MG/5 ML MISC 09/08/2016 - 03/11/2020 Provider: Start: 09-08-2016 End: 09-08-2016 BROMFED DM 2-30-10 MG/5 ML M ISC 09/08/2016 - 09/08/2016 Provider: Start: 01-30-2016 End: 03-11-2020 BROMFED DM 2-30-10 MG/5 ML M ISC 01/30/2016 - 03/11/2020 Provider: Start: 01-30-2016 End: 01-30-2016 BROMFED DM 2-30-10 MG/5 ML M ISC 01/30/2016 - 01/30/2016 Provider: Start: 08-01-2015 End: 03-11-2020 BROMFED DM 2-30-10 MG/5 ML M ISC 08/01/2015 - 03/11/2020 Provider: Start: 08-01-2015 End: 08-01-2015 BROMFED DM 2-30-10 MG/5 ML M ISC 08/01/2015 - 08/01/2015 Provider: Camphor / Eucalyptus oil / Menthol (20 sources) Start: 11-10-2016 End: 03-11-2020 VICKS VAPORUB 4.8-1.2-2.6% M ISC 11/10/2016 - 03/11/2020 Provider: Start: 11-10-2016 End: 11-10-2016 VICKS VAPORUB 4.8-1.2-2.6% M [facility] 11/10/2016 - 11/10/2016 Provider: cariprazine [...] Tablet 08/13/2021 - 11/25/2021 Provider: Traci Dennison BLOCK MECHANIC clarithromycin 500 mg oral tablet (20 sources) [...] / neomycin 3.5 mg/ml / polymyxin b [id number] unt/ml ophthalmic suspension (10 sources) Aminoglycoside Antibacterial, Polymyxin-class Antibacterial, Corticosteroid Start: 02-11-2022 End: 11-30-2022 Iuczjpjm-Mbajgopiy-B exameth 0.1% Ophthalmic Suspension 02/11/2022 - 11/30/2022 Provider: Start: 02-11-2022 take 1 drop(s) into the eye(s) every four hours kyopvxrz-hpjvgprih-ompuhwiz (MAXITROL) 3.5-25900-5.1 ophthalmic suspension instill ONE drop into affected eye(s) every FOUR hours FOR SEVEN DAYS 0 02/11/2022 Active doxycycline hyclate 100 mg oral capsule (8 sources) Tetracycline-class Drug Start: 12-31-2022 End: 02-05-2023 Doxycycline Hyclate 100 MG Oral Capsule 12/31/2022 - 02/05/2023 Provider: Srinivasa Jhaveri BLOCK MECHANIC famotidine 40 mg oral tablet (20 sources) [...] Tablet 02/21/2023 - 03/08/2023 Provider: Srinivasa Jhaveri CNP Start: 11-09-2022 End: 12-31-2022 Fluconazole 150 MG [...] 60 MG/2ML IM SOLN 01/28/2023 Srinivasa Jhaveri CNP Start: 07-03-2021 End: 07-03-2021 ketorolac (TORADOL) injectio [...] Tablet 11/30/2022 - 12/31/2022 Provider: Srinivasa Jhaveri BLOCK MECHANIC Start: 07-04-2015 End: 03-11-2020 Claritin 10 MG [...] Capsule 12/11/2021 - 01/22/2022 Provider: Srinivasa Jhaveri BLOCK MECHANIC OLANZapine 10 mg oral tablet (20 sources) Atypical Antipsychotic Start: 04-03-2021 End: 03-27-2022 OLANZapine 10 MG Oral Tablet 07/17/2021 - 12/11/2021 Provider: Traci Dennison BLOCK MECHANIC End: 08-11-2021 OLANZAPINE PO Take by mouth 0 08/11/2021 Discontinued (LIST CLEANUP) OXcarbazepine 300 mg oral tablet (20 sources) Anti-epileptic Agent Start: 12-14-2023 End: 02-08-2024 take 300 mg by mouth twice daily Oxcarbazepine Discontinued 300 MG PO Twice daily February 08, 2024 12:00am February 08, 2024 10:15pm Start: 05-12-2023 End: 06-11-2023 take 1 tablet by mouth in the morning OXcarbazepine (Trileptal) 300 MG tablet Indications: Seizures (CMS/HCC) , Bipolar 1 disorder (CMS/HCC) Take 1 tablet (300 mg) by mouth in the morning and 1 tablet (300 mg) before bedtime. 60 tablet 1 05/12/2023 06/11/2023 Active Start: 03-08-2023 Trileptal 150 MG Oral Tablet 03/08/2023 Provider: Srinivasa Jhaveri BLOCK MECHANIC Start: 04-03-2021 End: 11-30-2022 OXcarbazepine 300 MG Oral Ta blet 07/17/2021 - 12/11/2021 Provider: Traci Dennison BLOCK MECHANIC oxymetazoline hydrochloride 0.5 mg/ml nasal spray (1 [...] Classification Problem Date Documented Da te Episodic/Chronic Anxiety disorders (20 sources) Generalized anxiety disorder; Translations: [Anxiety disorder] Onset: 0 Chronic Asthma (20 sources) Uncomplicated mild persistent asthma; Translations: [Mild persistent asthma, uncomplicated] Onset: 3 11-30-2022 Chronic Blindness and vision defects (8 sources) Visual impairment; Translations: [Unspecified visual loss] Onset: 4 04-19-2023 Chronic Diverticulosis and diverticulitis (20 sources) Diverticular disease; Translations: [Diverticulosis of large intestine without perforation or abscess without bleeding] Onset: 2 Chronic Epilepsy; convulsions (20 sources) Epilepsy; Translations: [Epilepsy, unspecified, not intractable, without status epilepticus] Onset: 1 Chronic Esophageal disorders (8 sources) Gastroesophageal reflux disease; Translations: [Gastro-esophageal reflux disease without esophagitis] Onset: 4 04-19-2023 Chronic Gastritis and duodenitis (20 sources) Chronic gastritis; Translations: [Unspecified chronic gastritis without bleeding] Onset: 2 Chronic Immunizations and screening for infectious disease [...] I disorder] Onset: 0 Resolved: 2 Chronic Nausea and vomiting (4 sources) Nausea and vomiting; Translations: [Nausea with vomiting, unspecified] Onset: 2 Episodic Noninfectious gastroenteritis (1 source) Gastroenteritis; Translations: [Noninfective gastroenteritis and colitis, unspecified] Episodic Nonspecific chest pain (2 sources) Atypical chest pain; Translations: [Chest pain at rest] Episodic Nutritional deficiencies (5 sources) Vitamin D deficiency; Translations: [Unspecified vitamin D deficiency] Onset: 2 Chronic Other aftercare (1 source) Other custodial (current) drug therapy; Translations: [OTH INTERMEDIATE CURRENT DRUG THERAPY] Onset: 3 Episodic Other congenital anomalies (12 sources) Follicular keratosis; Translations: [Other specified congenital malformations of skin] Onset: 4 05-12-2023 Chronic Other ear and sense organ disorders (1 source) Infective otitis externa of left ear; Translations: [Other infective otitis externa, left ear] Episodic Other female genital disorders (8 sources) Pain in female genitalia on intercourse; Translations: [Unspecified dyspareunia] Onset: 3 10-01-2022 Chronic Other female genital disorders (1 source) Other specified noninflammatory disorders of cervix uteri; Translations: [OTH SPEC NONINFLAMM D/O CERV UTERI] Onset: 3 Episodic Other gastrointestinal disorders (2 sources) Diarrhea; Translations: [Diarrhea, unspecified] Episodic Other gastrointestinal disorders (18 sources) Diarrhea, unspecified; Translations: [Diarrhea] Onset: 1 Episodic Other injuries and conditions due to external causes (1 source) Injury of right wrist; Translations: [Unspecified injury of right wrist, hand and finger(s), initial encounter] Episodic Other injuries and conditions due to external causes (1 source) Injury of right shoulder; Translations: [Unspecified injury of right shoulder and upper arm, initial encounter] Episodic Other liver diseases (10 sources) Fatty (change of) liver, not elsewhere classified; Translations: [Other chronic nonalcoholic liver disease] Onset: 3 05-12-2023 Chronic Other nutritional; endocrine; and metabolic disorders (14 sources) Overweight; Translations: [Overweight] Onset: 0 Chronic Other nutritional; endocrine; and metabolic disorders (20 sources) Finding of body mass index; Translations: [Body mass index (observable entity)] Onset: 2 Chronic Other nutritional; endocrine; and metabolic disorders (14 sources) Body mass index 30+ - obesity; Translations: [Body mass index (BMI) 34.0-34.9, adult] Onset: 4 Resolved: 4 05-12-2023 Chronic Other skin disorders (1 source) Folliculitis; Translations: [Follicular disorder, unspecified] Episodic Other upper respiratory disease (6 sources) Allergic rhinitis; Translations: [Allergic rhinitis, cause unspecified] Onset: 2 Chronic Other upper respiratory disease (8 sources) Allergic disposition; Translations: [Other allergic rhinitis] Onset: 4 05-12-2023 Chronic Other upper respiratory infections (13 sources) Viral upper respiratory tract infection; Translations: [Upper respiratory infection] Onset: 2 Resolved: 4 Episodic Otitis media and related conditions (1 source) Acute non-suppurative otitis media - serous; Translations: [Acute serous otitis media, unspecified ear] Episodic Personality disorders (5 sources) Borderline personality disorder; Translations: [Borderline personality disorder] 11-02-2023 Chronic Residual codes; unclassified (1 source) Noncompliance with [...] right foot; Translations: [Cellulitis of right foot] Substance-related disorders (20 sources) Smoker; Translations: [Nicotine dependence, unspecified, uncomplicated] Onset: 6 11-27-2015 Chronic Substance-related disorders (1 source) Marijuana user; Translations: [Marijuana use] Suicide and intentional self-inflicted injury (1 source) Suicidal thoughts; Translations: [Suicidal ideations] 02-09-2024 Episodic Thyroid disorders (5 sources) Hypothyroidism; Translations: [Other specified hypothyroidism] Onset: 2 Chronic Viral infection (1 source) Viral infection, unspecified; Translations: [Viral infection, unspecified] Onset: 4 Episodic Past or Other Problems Problem Classification [...] of kidney; Translations: [Calculus of kidney] Onset: 04-21-2023 Episodic Cardiac dysrhythmias (9 sources) Palpitations; Translations: [Palpitations] Onset: 04-19-2023 Episodic Chronic obstructive pulmonary disease and bronchiectasis (5 sources) Bronchitis; Translations: [Bronchitis, not specified as acute or chronic] Onset: 10-18-2023 Resolved: 02-08-2024 10-18-2023 Episodic Disorders of teeth and jaw (3 sources) Infection of tooth; Translations: [Infection of Tooth] Onset: 01-26-2020 Episodic Epilepsy; convulsions (9 sources) Seizure; Translations: [Unspecified convulsions] Onset: 04-19-2023 04-19-2023 Episodic Fever of unknown origin (16 sources) Fever symptoms; Translations: [Fever, unspecified] Onset: 01-01-2021 Episodic Fluid and electrolyte disorders (1 source) Hypokalemia; Translations: [Hypokalemia] Onset: 01-28-2023 Episodic Genitourinary symptoms and ill-defined conditions (6 sources) Dysuria; Translations: [Dysuria] Onset: 01-21-2022 01-22-2022 Episodic Headache; including migraine (8 sources) Frequent headache; Translations: [Frequent headaches] Onset: 04-19-2023 04-19-2023 Episodic Hemorrhoids (17 sources) Hemorrhoids; Translations: [Hemorrhoids] Onset: 05-22-2021 05-22-2021 Episodic Menstrual disorders (20 sources) Excessive and frequent menstruation with irregular cycle; Translations: [Dysmenorrhea] Onset: 08-05-2022 Resolved: 05-12-2023 Chronic Mood disorders (7 sources) Bipolar I disorder, most recent episode depression; Translations: [Mood disorders] Onset: 06-03-2020 11-02-2023 Nutritional deficiencies (5 sources) Vitamin B12 deficiency (non anemic); Translations: [Other B-complex deficiencies] Onset: 07-17-2021 Episodic Other and ill-defined heart disease (8 sources) Heart disease; Translations: [Heart disease, unspecified] Onset: 04-19-2023 Resolved: 05-12-2023 05-12-2023 Chronic Other complications of (20 sources) Complication occurring during ; Translations: [Other specified related conditions, unspecified trimester] Onset: 12-03-2013 Resolved: 02-08-2024 12-03-2013 Episodic Other gastrointestinal disorders (13 sources) Disorder of small intestine; Translations: [Unspecified disorder of intestine] Onset: 06-03-2020 Episodic Other gastrointestinal disorders (8 sources) Constipation alternates with diarrhea; Translations: [Other specified symptoms and signs involving the digestive system and abdomen] Onset: 04-19-2023 04-19-2023 Episodic Other infections; including parasitic (1 source) Personal history of other infectious and parasitic diseases; Translations: [PERSONAL HX OTH INF AND PARASITIC DZ] Onset: 01-21-2022 Episodic Other liver diseases (8 sources) Liver problem; Translations: [Liver disease, unspecified] Onset: 04-19-2023 Resolved: 05-12-2023 05-12-2023 Chronic Other lower respiratory disease (1 source) Chest pain on breathing; Translations: [Chest pain on breathing] Episodic Other lower respiratory disease (16 sources) Cough; Translations: [Cough] Onset: 01-01-2021 Episodic Other lower respiratory disease (8 sources) Dyspnea; Translations: [Shortness of breath] Onset: 04-19-2023 04-19-2023 Episodic Other non-traumatic joint disorders (8 sources) Joint pain; Translations: [Pain in unspecified joint] Onset: 04-19-2023 04-19-2023 Episodic Other non-traumatic joint disorders (8 sources) Chronic pain of right upper limb; Translations: [Pain in right shoulder] Onset: 05-12-2023 05-12-2023 Episodic Other nutritional; endocrine; and metabolic [...] [Diabetes Risk Test Score] Onset: 01-08-2020 Episodic Residual codes; unclassified (1 source) Procedure and treatment not carried out due to patient leaving prior to being seen by health care provider; Translations: [PROC AND TX NOT CARRIED OUT PT LEAVE] Onset: 01-21-2022 Episodic Screening and history of mental health and substance abuse codes (1 source) Personal history of nicotine dependence; Translations: [PERSONAL HISTORY OF NICOTINE DEPEND] Onset: 01-22-2022 Episodic Sprains and strains (11 sources) Low back strain; Translations: [Sprain of right ankle] Onset: 11-04-2023 Resolved: 02-08-2024 11-04-2023 Episodic Syncope (8 sources) Syncope; Translations: [Syncope and collapse] Onset: 04-19-2023 04-19-2023 Episodic Unclassified (20 sources) Finding of body mass index; Translations: [Body mass index (observable entity)] Onset: 12-25-2019 Unclassified (20 sources) Exposure to Severe acute respiratory syndrome coronavirus 2 (event); Translations: [Exposure To Covid-19] Onset: 01-01-2021 Urinary tract infections (20 sources) Urinary tract infectious disease; Translations: [Urinary tract infection, site not specified] Onset: 04-03-2021 Episodic Results Test Name Value Interpretation Reference Range Facility Alanine aminotransferase [En zymatic activity/volume] in Serum or PlasmaOrdered By: Khang Colon on 02-08-2024 ALT [Catalytic activity/Vol] 10 U/L Normal 7-52 [facility] Comment on above: Performed By: #### C MP, ETOH, CBC #### [address] Albumin [Mass/volume] in Ser um or Plasma by Bromocresol green (BCG) dye binding methoOrdered By: Khang Colon on 02-08-2024 Albumin BCG dye [Mass/Vol] 4.6 g/dL 3.5-5.7 [facility] Alkaline phosphatase [Enzyma tic activity/volume] in Serum or PlasmaOrdered By: Khang Colon on 02-08-2024 ALP [Catalytic activity/Vol] 57 U/L Normal 34-104 [facility] Comment on above: Performed By: #### C MP, ETOH, CBC #### [facility] [address] Amphetamine Screen Ql (U)Ord ered By: Khang Colon on 02-08-2024 Amphetamines Ql (U) Negative Negative [facility] Aspartate aminotransferase [ Enzymatic activity/volume] in Serum or PlasmaOrdered By: Khang Colon on 02-08-2024 AST [Catalytic activity/Vol] 13 U/L Normal 13-39 [facility] Comment on above: Performed By: #### C MP, ETOH, CBC #### [facility] [address] Automated basophil %Ordered By: Khang Colon on 02-08-2024 Basophils/100 WBC (Bld) 0.5 % Normal . [facility] Comment on above: Performed By: #### C MP, ETOH, CBC #### [facility] [address] Automated basophil countOrde red By: Khang Colon on 02-08-2024 Basophils (Bld) [#/Vol] 0.1 10*3/uL Normal 0.0-0.2 [facility] Comment on above: Result Comment: PERF ORMED BY: [place] [address] PATHOLOGIST [employer]CHIT[employer] CARLIN VIZCAINO M.D. Performed By: #### C MP, ETOH, CBC #### [facility] [address] Automated blood monocyte cou ntOrdered By: Khang Colon on 02-08-2024 Monocytes (Bld) [#/Vol] 0.8 10*3/uL Normal 0.0-0.8 [facility] Comment on above: Performed By: #### C MP, ETOH, CBC #### [facility] [address] Automated eosinophil %Ordere d By: Khang Isaiah on 02-08-2024 Eosinophils/100 WBC (Bld) 0.4 % Normal . [facility] Comment on above: Performed By: #### C MP, ETOH, CBC #### [facility] [address] Automated eosinophil countOr dered By: Khang Isaiah on 02-08-2024 Eosinophils (Bld) [#/Vol] 0.1 10*3/uL Normal 0.0-0.45 [facility] Comment on above: Performed By: #### C MP, ETOH, CBC #### [facility] [address] Automated monocyte %Ordered By: Khang Colon on 02-08-2024 Monocytes/100 WBC (Bld) 6.5 % Normal . [facility] Comment on above: Performed By: #### C MP, ETOH, CBC #### [address] Automated neutrophil %Ordere d By: Khangjessy Colon on 02-08-2024 Neutrophils/100 WBC (Bld) 69.8 % Normal . [facility] Comment on above: Performed By: #### C MP, ETOH, CBC #### [facility] [address] [place] [address] [place] Barbiturates [Presence] in U rine by Screen methodOrdered By: Khang Colon on 02-08-2024 Barbiturates Screen Ql (U) Negative Negative [facility] Benzodiazepines Screen Ql (U )Ordered By: Khang Colon on 02-08-2024 Benzodiazepines Ql (U) Negative Negative [facility] Benzoylecgonine [Presence] i n Urine by Screen methodOrdered By: Khang Colon on 02-08-2024 Benzoylecgonine Screen Ql (U) Negative Negative [facility] Bilirubin Test strip Ql (U)O rdered By: Khang Colon on 02-08-2024 Bilirubin Ql (U) Negative Negative [facility] Bilirubin.total [Mass/volume ] in Serum or PlasmaOrdered By: Khang Colon on 02-08-2024 Bilirubin [Mass/Vol] 0.3 mg/dL Normal 0.3-1.0 [facility] Comment on above: Performed By: #### C MP, ETOH, CBC #### [facility] [address] [place] [address] [place] Calcium [Mass/volume] in Ser um or PlasmaOrdered By: Khang Colon on 02-08-2024 Calcium [Mass/Vol] 9.5 mg/dL Normal 8.6-10.3 [facility] Comment on above: Performed By: #### C MP, ETOH, CBC #### [facility] [address] [place] [address] [place] Cannabinoids [Presence] in U rine by Screen methodOrdered By: Khang Colon on 02-08-2024 Cannabinoids Screen Ql (U) Positive High Negative [facility] Comment on above: These are unconfirme d results and should not be used for legal purposes. Drug Cut-Off Concentration: AMPH 1000 ng/mL ALYCE 200 ng/mL TICO 200 ng/mL COCM 300 ng/mL OP 300 ng/mL PCP 25 ng/mL THC 20 ng/mL Carbon dioxide, total [Moles /volume] in Serum or PlasmaOrdered By: Khang Colon on 02-08-2024 CO2 [Moles/Vol] 29.7 mmol/L Normal 21.0-31.0 [facility] Comment on above: Performed By: #### C MP, ETOH, CBC #### [facility] [address] [place] [id number] [place] Chloride [Moles/volume] in S beckie or PlasmaOrdered By: Khang Colon on 02-08-2024 Chloride [Moles/Vol] 103 mmol/L Normal 98-107 [facility] Comment on above: Performed By: #### C MP, ETOH, CBC #### [address] Color of Urine by AutoOrdere d By: Khang Colon on 02-08-2024 Color (U) Light-yellow Normal Yellow [facility] Comment on above: Order Comment: Name Collection Type:: Clean-Voided Midstream Performed By: #### U RDS, UHCG, UA #### [address] Complete Blood Count Auto Di ffon 02-08-2024 Mean Corpuscular HGB Conc 33.5 g/dL Normal 32.0-35.0 [facility] Comment on above: Performed By: #### C MP, ETOH, CBC #### [address] Monocytes/100 WBC (Bld) 22.37 % High 0.00-20.00 [facility] Comment on above: Result Comment: For adults in ED, MDW > 20.0 may be associated with a higher risk of sepsis during the first 12 hrs of hospital admission Performed By: #### C MP, ETOH, CBC #### [address] NRBC% 0.1 /100{WBC} Normal 0-0.5 [facility] Comment on above: Performed By: #### C MP, ETOH, CBC #### [address] Comprehensive Metabolic Pane ayush 02-08-2024 Albumin [Mass/Vol] 4.6 g/dL Normal 3.5-5.7 [facility] Comment on above: Performed By: #### C MP, ETOH, CBC #### [place] [address] [place] Creatinine Clr Calc Pharmacy 75.50 Normal [facility] Comment on above: Result Comment: PERF ORMED BY: [place] [address] PATHOLOGIST TERADATA ARCHITECT CARLIN VIZCAINO M.D. Performed By: #### C MP, ETOH, CBC #### [facility] [address] GFR/1.73 sq M.predicted MDRD (S/P/Bld) [Vol rate/Area] mL/min/{1.73_m2} Normal [facility] Comment on above: Performed By: #### C MP, ETOH, CBC #### [address] Creatinine [Mass/volume] in Serum or PlasmaOrdered By: Khang Colon on 02-08-2024 Creatinine [Mass/Vol] 0.90 mg/dL Normal 0.60-1.20 [facility] Comment on above: Performed By: #### C MP, ETOH, CBC #### [address] Drug Screen,Urineon 02-08-20 24 Amphetamine Screen,Urine Negative Normal Negative [facility] Comment on above: Performed By: #### U RDS, UHCG, UA #### [address] Barbiturate Screen,Urine Negative Normal Negative [facility] Comment on above: Performed By: #### U RDS, UHCG, UA #### [address] Benzodiazepines Screen,Urine Negative Normal Negative [facility] Comment on above: Performed By: #### U RDS, UHCG, UA #### [address] Cannabinoid Screen,Urine Positive High Negative [facility] Comment on above: Result Comment: Thes e are unconfirmed results and should not be used for legal purposes. Drug Cut-Off Concentration: AMPH 1000 ng/mL ALYCE 200 ng/mL TICO 200 ng/mL COCM 300 ng/mL OP 300 ng/mL PCP 25 ng/mL THC 20 ng/mL PERFORMED BY: [place] [address] PATHOLOGIST [employer]CHIT[employer] CARLIN VIZCAINO M.D. Performed By: #### U RDS, UHCG, UA #### [address] Cocaine Screen,Urine Negative Normal Negative [facility] Comment on above: Performed By: #### U RDS, UHCG, UA #### [facility] [address] Opiate Screen,Urine Negative Normal Negative [facility] Comment on above: Performed By: #### U RDS, UHCG, UA #### [facility] [address] Phencyclidine Screen,Urine Negative Normal Negative [facility] Comment on above: Performed By: #### U RDS, UHCG, UA #### [facility] [address] Erythrocyte distribution wid th [Ratio] by Automated countOrdered By: Khang Colon on 02-08-2024 Erythrocyte distribution width (RBC) [Ratio] 13.8 % Normal 11.9-15.3 [facility] Comment on above: Performed By: #### C MP, ETOH, CBC #### [address] Erythrocytes [#/volume] in B lood by Automated countOrdered By: Khang Colon on 02-08-2024 RBC (Bld) [#/Vol] 4.79 10*6/uL Normal 3.60-5.00 [facility] Comment on above: Performed By: #### C MP, ETOH, CBC #### [address] Ethanol [Mass/volume] in Ser um or PlasmaOrdered By: Khang Colon on 02-08-2024 Ethanol [Mass/Vol] mg/dL Normal [facility] Comment on above: Performed By: #### C MP, ETOH, CBC #### [address] Ethanol [Mass/Vol] TNP [facility] Comment on above: Test not performed Ethyl Alcohol Profileon 01-11 Percent Ethanol Not performed Normal [facility] Comment on above: Result Comment: PERF ORMED BY: [place] [address] PATHOLOGIST TERADATA ARCHITECT CARLIN VIZCAINO M.D. Performed By: #### C MP, ETOH, CBC #### [facility] [address] [place] [id number] [place] Glucose [Mass/volume] in Ser um or PlasmaOrdered By: Khang Colon on 02-08-2024 Glucose [Mass/Vol] 79 mg/dL Normal 70-100 [facility] Comment on above: ADA recommended refe rence rangeRandom Glucose Reference Range is dependent on time and content of last meal. Glucose of more than 200 mg/dL in a nonstressed, ambulatory subject supports the diagnosis of Diabetes Mellitus. Result Comment: [place] Glucose Reference Range is dependent on time and content of last meal. Glucose of more than 200 mg/dL in a nonstressed, ambulatory subject supports the diagnosis of Diabetes Mellitus. ADA recommended reference range Performed By: #### C MP, ETOH, CBC #### [facility] [address] [place] [id number] [place] Glucose [Mass/volume] in Uri ne by Test stripOrdered By: Khang Colon on 02-08-2024 Glucose Test strip (U) [Mass/Vol] Normal mg/dL Normal [facility] HCG ( test) IA.rapi d Ql (U)Ordered By: Khang Colon on 02-08-2024 HCG ( test) Ql (U) Negative [facility] HCG,Urineon 02-08-2024 Beta HCG ( test) Ql (U) Negative Normal [facility] Comment on above: Order Comment: Name Collection Type:: Clean-Voided Midstream Result Comment: PERF ORMED BY: [place] [address] PATHOLOGIST TERADATA ARCHITECT CARLIN VIZCAINO M.D. Performed By: #### U RDS, UHCG, UA #### [address] [address] [facility] Hematocrit [Volume Fraction] of Blood by Automated countOrdered By: Khang Colon on 02-08-2024 Hematocrit (Bld) [Volume fraction] 44.1 % Normal 34.0-46.4 [facility] Comment on above: Performed By: #### C MP, ETOH, CBC #### [facility] [address] Hemoglobin Test strip Ql (U) Ordered By: Khang Colon on 02-08-2024 Hemoglobin Ql (U) Negative Negative [facility] Hemoglobin [Mass/volume] in BloodOrdered By: Khang Colon on 02-08-2024 Hemoglobin (Bld) [Mass/Vol] 14.8 g/dL Normal 11.8-15.4 [facility] Comment on above: Performed By: #### C MP, ETOH, CBC #### [facility] [address] [place] [address] [place] Ketones [Presence] in Urine by Test stripOrdered By: Khang Colon on 02-08-2024 Ketones Ql (U) Negative Normal Negative [facility] Comment on above: Order Comment: Name Collection Type:: Clean-Voided Midstream Performed By: #### U RDS, UHCG, UA #### [facility] [address] [place] [address] [place] Leukocyte esterase [Presence ] in Urine by Test stripOrdered By: Khang Colon on 02-08-2024 Leukocyte esterase Test strip Ql (U) Negative Normal Negative [facility] Comment on above: Order Comment: Name Collection Type:: Clean-Voided Midstream Performed By: #### U RDS, UHCG, UA #### [facility] [address] [place] [address] [place] Leukocytes [#/volume] correc lenora for nucleated erythrocytes in Blood by Automated counOrdered By: Khang Colon on 02-08-2024 WBC corrected for nucl RBC Auto (Bld) [#/Vol] 12.7 10*3/uL High 3.8-11.6 [facility] Leukocytes [#/volume] in Blo od by Automated countOrdered By: Khang Colon on 02-08-2024 WBC (Bld) [#/Vol] 12.7 10*3/uL High 3.8-11.6 [facility] Comment on above: Performed By: #### C MP, ETOH, CBC #### [facility] [address] [place] [address] [place] Lymphocytes [#/volume] in Bl ood by Automated countOrdered By: Khang Colon on 02-08-2024 Lymphocytes (Bld) [#/Vol] 2.9 10*3/uL Normal 1.00-4.8 [facility] Comment on above: Performed By: #### C MP, ETOH, CBC #### [place] [address] [place] Lymphocytes/100 leukocytes i n Blood by Automated countOrdered By: Khang Colon on 02-08-2024 Lymphocytes/100 WBC (Bld) 22.8 % Normal . [facility] Comment on above: Performed By: #### C MP, ETOH, CBC #### [address] MCH [Entitic mass] by Automa lenora countOrdered By: Khang Colon on 02-08-2024 MCH (RBC) [Entitic mass] 30.9 pg Normal 24.7-34.3 [facility] Comment on above: Performed By: #### C MP, ETOH, CBC #### [address] MCHC Auto (RBC) [Mass/Vol]Or dered By: Khang Colon on 02-08-2024 MCHC (RBC) [Mass/Vol] 33.5 g/dL 32.0-35.0 [facility] MCV [Entitic volume] by Auto mated countOrdered By: Khang Colon on 02-08-2024 MCV (RBC) [Entitic vol] 92.1 fL Normal 80-[address] [facility] Comment on above: Performed By: #### C MP, ETOH, CBC #### [place] [address] [place] Monocyte distribution width [Entitic volume] in Blood by AutomatedOrdered By: Khang Colon on 02-08-2024 Monocyte distribution width Auto (Bld) [Entitic vol] 22.37 % High 0.00-20.00 [facility] Comment on above: For adults in ED, MD W > 20.0 may be associated with a higher risk of sepsis during the first 12 hrs of hospital admission Neutrophils [#/volume] in Bl ood by Automated countOrdered By: Khang Colon on 02-08-2024 Neutrophils (Bld) [#/Vol] 8.9 10*3/uL High 1.8-7.7 [facility] Comment on above: Performed By: #### C MP, ETOH, CBC #### [facility] [address] Nitrite Test strip Ql (U)Ord ered By: Khang Colon on 02-08-2024 Nitrite Ql (U) Negative Negative [facility] No Panel InformationOrdered By: Khang Colon on 02-08-2024 Estimated GFR (CKD-EPI) > 60.0 mL/Min [facility] Creatinine Clearance (Chem 75.50 [facility] Nucleated erythrocytes [Pres ence] in Blood by Automated countOrdered By: Khang Colon on 02-08-2024 Nucleated RBC Auto Ql (Bld) 0.1 /100{WBC} 0-0.5 [facility] Opiates [Presence] in Urine by Screen methodOrdered By: Khang Colon on 02-08-2024 Opiates Screen Ql (U) Negative Negative [facility] Phencyclidine Screen Ql (U)O rdered By: Khang Colon on 02-08-2024 Phencyclidine Ql (U) Negative Negative [facility] Platelet mean volume [Entiti c volume] in Blood by Automated countOrdered By: Khang Colon on 02-08-2024 Platelet mean volume (Bld) [Entitic vol] 7.9 fL Normal 6.3-10.7 [facility] Comment on above: Performed By: #### C MP, ETOH, CBC #### [facility] [address] [place] [address] [place] Platelets [#/volume] in Bloo d by Automated countOrdered By: Khang Colon on 02-08-2024 Platelets (Bld) [#/Vol] 282 10*3/uL Normal 150-450 [facility] Comment on above: Performed By: #### C MP, ETOH, CBC #### [facility] [address] Potassium [Moles/volume] in Serum or PlasmaOrdered By: Khang Colon on 02-08-2024 Potassium [Moles/Vol] 3.4 mmol/L Low 3.5-5.1 [facility] Comment on above: Performed By: #### C MP, ETOH, CBC #### [address] Protein Test strip (U) [Mass /Vol]Ordered By: Khang Colon on 02-08-2024 Protein (U) [Mass/Vol] Negative Negative [facility] Protein [Mass/volume] in Ser um or PlasmaOrdered By: Khang Colon on 02-08-2024 Protein [Mass/Vol] 7.4 g/dL Normal 6.4-8.9 [facility] Comment on above: Performed By: #### C MP, ETOH, CBC #### [address] Serum globulin measurement b y calculation (mass/volume)Ordered By: Khang Colon on 02-08-2024 Globulin (S) [Mass/Vol] 2.8 g/dL Normal [facility] Comment on above: Performed By: #### C MP, ETOH, CBC #### [address] Serum or plasma albumin/glob ulin mass ratioOrdered By: Khang Colon on 02-08-2024 Albumin/Globulin [Mass ratio] 1.6 {ratio} Normal [facility] Comment on above: Performed By: #### C MP, ETOH, CBC #### [address] Serum or plasma anion gap de terminationOrdered By: Khang Colon on 02-08-2024 Anion gap [Moles/Vol] 10.7 mmol/L Normal 6.0-15.0 [facility] Comment on above: Performed By: #### C MP, ETOH, CBC #### [address] Sodium [Moles/volume] in Ser um or PlasmaOrdered By: Khang Conleyguillaume on 02-08-2024 Sodium [Moles/Vol] 140 mmol/L Normal 136-145 [facility] Comment on above: Performed By: #### C MP, ETOH, CBC #### [facility] [address] Specific gravity Test strip (U) [Rel density]Ordered By: Khang Isaiah on 02-08-2024 Specific gravity (U) [Rel density] 1.008 1.001-1.03 0 [facility] Urea nitrogen [Mass/volume] in Serum or PlasmaOrdered By: Khang Isaiah on 02-08-2024 Urea nitrogen [Mass/Vol] 7 mg/dL Normal 7-25 [facility] Comment on above: Performed By: #### C MP, ETOH, CBC #### [place] [address] [place] Urinalysison 02-08-2024 Bilirubin,Urine Negative Normal Negative [facility] Comment on above: Order Comment: Name Collection Type:: Clean-Voided Midstream Performed By: #### U RDS, UHCG, UA #### [address] Glucose Ql (U) Normal Normal Normal [facility] Comment on above: Order Comment: Name Collection Type:: Clean-Voided Midstream Performed By: #### U RDS, UHCG, UA #### [place] [address] [place] Nitrite,Urine Negative Normal Negative [facility] Comment on above: Order Comment: Name Collection Type:: Clean-Voided Midstream Performed By: #### U RDS, UHCG, UA #### [facility] [address] [place] [address] [place] Occult Blood,Urine Negative Normal Negative [facility] Comment on above: Order Comment: Name Collection Type:: Clean-Voided Midstream Performed By: #### U RDS, UHCG, UA #### [place] [address] [place] Protein,Urine Negative Normal Negative [facility] Comment on above: Order Comment: Name Collection Type:: Clean-Voided Midstream Performed By: #### U RDS, UHCG, UA #### [address] Specificy [place],Urine 1.008 Normal 1.00 1-1.03 0 [facility] Comment on above: Order Comment: Name Collection Type:: Clean-Voided Midstream Performed By: #### U RDS, UHCG, UA #### [address] Urobilinogen,Urine Normal Normal Normal [facility] Comment on above: Order Comment: Name Collection Type:: Clean-Voided Midstream Performed By: #### U RDS, UHCG, UA #### [address] Urine appearanceOrdered By: Khang Colon on 02-08-2024 Appearance (U) Clear Normal Clear [facility] Comment on above: Order Comment: Name Collection Type:: Clean-Voided Midstream Performed By: #### U RDS, UHCG, UA #### [address] Urobilinogen Test strip (U) [Mass/Vol]Ordered By: Khang Colon on 02-08-2024 Urobilinogen (U) [Mass/Vol] Normal mg/dL Normal [facility] pH of Urine by Test stripOrd ered By: Khang Colon on 02-08-2024 pH (U) 6.0 [pH] Normal 5.0-9.0 [facility] Comment on above: Order Comment: Name Collection Type:: Clean-Voided Midstream Performed By: #### U RDS, UHCG, UA #### [address] Gastroenterology Office/Clin ic Noteon 02-01-2024 Gastroenterology Office/Clinic Note Chief Complaint pt states doing well History of Present Illness Patient is a 33-year-old female who presents to GI clinic today for follow-up IBS and GERD. Patient continues with pantoprazole 40 mg daily. States acid reflux heartburn in good control. Denies any nausea or vomiting. Denies any epigastric pain. Does continue on amitriptyline 50 mg at at bedtime. States this helps greatly. Patient states having bowel movements daily without difficulty. Denies any hematemesis hematochezia or melena. Did have appointment with Dr. Rascon regarding umbilical hernia.Patient states continues with tenderness at umbilical site. Did discuss with patient contacting Dr. Rascon's office to see if they can proceed with hernia repair. OV 08/03/23 Patient Is a 33-year-old female who presents [...] these as stool caliber 4-5 on the [place]. Denies any current acid reflux or heartburn. [...] incisors. No erosive esophagitis, mass lesions, ulcers, rings/we (more content not included)... Normal [facility] Flu A/B Ag Detectionon 12-23 Flu A Ag Detection Negative Normal NEG [facility] Comment on above: Result Comment: for Influenza A Antigen Performed By: #### F LUABA #### [facility] [address] [place] [address] Survey Manager: Ernst Dillard MD Flu B Ag Detection Negative Normal NEG [facility] Comment on above: Result Comment: for Influenza B Antigen. Performed By: #### F LUABA #### [facility] [address] [place] [address] Survey Manager: Ernst Dillard MD [id number] 12-24-2023 SARS-CoV-2 (COVID-19) RNA EVELIA+probe Ql (Unsp spec) Not detected Normal NOTDET [facility] Comment on above: Result Comment: Rapid NAAT: The specimen is NEGATIVE for [...] management decisions. Fact sheet for Healthcare Providers: https://www.fda.gov/media/679642/download Fact sheet for Patients: https://www.fda.gov/media/527129/download Methodology: Isothermal Nucleic Acid Amplification Performed By: #### U AX UMROCKYO #### [facility] [address] [place] [address] Survey Manager: Ernst Dillard MD UA w/Reflex Cultureon 2023 Bilirubin, SemiQt,Ur Negative Normal NEG [facility] Comment on above: Performed By: #### U AX, UMICAO #### [facility] [address] [place], [place] 1345683 Survey Manager: Ernst Dillard MD Blood, Urine Negative Normal NEG [facility] Comment on above: Performed By: #### U AX, UMICAO #### [facility] [address] [place] [address] [address] [place], [place] [id number] Survey Manager: Ernst Dillard MD Clarity (U) Clear Normal CLEAR [facility] Comment on above: Performed By: #### U AX, UMICAO #### [address] [place], [place] [id number] Survey Manager: Ernst Dillard MD Color (U) Yellow Normal YEL [facility] Comment on above: Performed By: #### U AX, UMICAO #### [facility] [address] [place] [address] [address] [place], [place] 0680583 Survey Manager: Ernst Dillard MD Glucose Ql (U) Negative Normal NEG [facility] Comment on above: Performed By: #### U AX, UMICAO #### [address] [place], [place] [phone] Survey Manager: Ernst Dillard MD Ketones Ql (U) TRACE Abnormal NEG [facility] Comment on above: Performed By: #### U AX, UMICAO #### [facility] [address] [place] [address] [address] [address] Survey Manager: Ernst Dillard MD Leukocyte esterase Test strip Ql (U) Negative Normal NEG [facility] Comment on above: Performed By: #### U AX, UMICAO #### [facility] [address] [place], [place] [id number] Survey Manager: Ernst Dillard MD Nitrite,Ur Negative Normal [facility] Comment on above: Performed By: #### U AX, UMICAO #### [address] [place], [place] [phone] Survey Manager: Ernst Dillard MD PH,Ur 6.0 Normal 5.0-9.0 [facility] Comment on above: Performed By: #### U AX, UMICAO #### [address] [place], [facility]83 Survey Manager: Ernst Dillard MD Protein Ql (U) Negative Normal NEG [facility] Comment on above: Performed By: #### U AX, UMICAO #### [address] [place], [place] [id number] Survey Manager: Ernst Dillard MD Spec. [place],Ur >1.030 High 1.010-1.02 0 [facility] Comment on above: Performed By: #### U AX, UMICAO #### [address] [place], [place] 5296283 Survey Manager: Ernst Dillard MD Urobilinogen,Ur Normal Normal 0.0-1.0 [facility] Comment on above: Performed By: #### U AX, UMICAO #### [address] [place], [facility]83 Survey Manager: Ernst Dillard MD Urinalysis,Microon 4 Epithelial cells LM Ql (Urine sed) 5 TO 10 Normal 0-25 [facility] Comment on above: Performed By: #### U AX, UMICAO #### [facility] [address] [place] [address] Dr[address] [place], [facility]83 Survey Manager: Ernst Dillard MD Urine RBC's 0 TO 2 Normal 0-2 [facility] Comment on above: Performed By: #### U AX, UMICAO #### [address] [place] [address] Survey Manager: Ernst Dillard MD Urine WBC's 0 TO 2 Normal 0-5 [facility] Comment on above: Performed By: #### U MARTA PAGAN #### [facility] [address] [place] [address] Survey Manager: Ernst Dillard MD Gastroenterology Office/Clin ic Noteon 08-03-2023 Gastroenterology Office/Clinic [...] these as stool caliber 4-5 on the [place]. Denies any current acid reflux or heartburn. [...] (more content not included)... Normal [facility] Ayush 07-13-2023 L Specimen: [id number] Received: 07/14/23 Status: LINDSEY Virk Num: [id number] Spec Type: Surgical Subm Dr: Valentin Gallego Tissues: A Skin-Other than Cyst, tag, debridement or plastic repair (LT LABIA) Procedures: HE, Gross/Micro L4 Age/ Patient Sex Location Account Attending Physician Melody Fletcher 33/F LABELL [id number] Valentin Gallego SPEC NUM: [id number] RECD: 07/14/23 STATUS: LINDSEY VIRK NUM: [id number] ANGELA: 07/13/23- SUBM DR: Valentin Gallego ENTERED: 07/14/[address] [facility] DR: Ayala Jose SPEC TYPE: Surgical DEPT: [...] the base of biopsy of note Specimen: [id number] Received: 07/14/23 Status: LINDSEY Virk Num: [id number] Spec Type: Surgical Subm Dr: Valentin Gallego Tissues: A Skin-Other than Cyst, tag, debridement or plastic repair (LT LABIA) Procedures: Carson HERRING/Connor Coles Patient: Melody Fletcher [id number] (Continued) Specimen: [id number] Received: 07/14/23 (Continued) Signed (signature on file) Maria Fernanda Menchaca MD 07/17/23 1756 Specimen: [id number] Received: 07/14/23 Status: LINDSEY Virk Num: [id number] Spec Type: Surgical Subm Dr: Valentin Gallego Tissues: A Skin-Other than Cyst, tag, debridement or plastic repair (LT LABIA) Procedures: Carson HERRING/Connor Coles Patient: Melody Fletcher [id number] (Continued) Specimen: [id number] Received: 07/14/23 (Continued) CPT Codes 57466 Specimen: [id number] Received: 07/14/23-1350 Status: LINDSEY Virk Num: [id number] Spec Type: Surgical Subm Dr: Valentin Gallego Tissues: A Skin-Other than Cyst, tag, debridement or plastic repair (LT LABIA) Procedures: Carson HERRING/Connor L4 Patient: Melody Fletcher [id number] (Continued) Signed (signature on file) Maria Fernanda Menchaca MD 07/17/23 8734 Normal [facility] Cult,Urineon 04-22-2023 Cult,Urine Specimen Description .CLEAN CATCH URINE Culture NO SIGNIFICANT GROWTH Report Status FINAL 04/22/2023 [facility] Comment on above: Performed By: #### U RC #### [employer] [address] [place] [address] Survey Manager: Juan Neumann MD [facility] [address] [place] [address] Survey Manager: Ernst Dillard MD XR ABDOMEN (KUB) (SINGLE AP VIEW)on 04-21-2023 XR ABDOMEN (KUB) (SINGLE AP VIEW) EXAMINATION: [...] Ant Anguiano MD 04/21/23 Final result Normal [facility] Vaginitis DNA Probeon 2022 Kayla Positive Abnormal NEG [facility] Comment on above: Result Comment: for Kayla sp. Method of testing is a DNA probe intended for detection and identification of Kayla species, Gardnerella vaginalis, and Trichomonas vaginalis nucleic acid in vaginal fluid specimens from patients with symptoms of vaginitis/vaginosis. Performed By: #### V AGP #### [employer] [address] [place] [address] [phone] Survey Manager: Juan Neumann MD Gardnerella Negative Normal NEG [facility] Comment on above: Result Comment: for Gardnerella vaginalis Performed By: #### V AGP #### [employer] [address] [place] [address] [phone] Survey Manager: Juan Neumann MD Trichomonas Negative Normal NEG [facility] Comment on above: Result Comment: for Trichomonas Vaginalis Performed By: #### V AGP #### [employer] [address] [place] [address] [phone] Survey Manager: Juan Neumann MD Vaginitis DNA Probeon 2022 Source .VAGINAL SWAB Normal [facility] Comment on above: Performed By: #### V AGP #### [employer] [address] [place] [address] [phone] Survey Manager: Juan Neumann MD No Panel Informationon 02-19 Kayla Positive Abnormal (NEG ) [facility] Comment on above: Note: for Kayla sp .Method of testing is a DNA probe intended for detection and identification ofCandida species, Gardnerella vaginalis, and Trichomonas vaginalis nucleic acidin vaginal fluid specimens from patients with symptoms of vaginitis/vaginosis.Responsible Observer: LETICIA MONTENEGRO ([id number]) Gardnerella Negative (NEG ) [facility] Comment on above: Note: for Gardnerell a vaginalisResponsible Observer: LETICIA MONTENEGRO ([id number]) Reported Physicians See Note [facility] Comment on above: Note: Reported Physi cians:Ordering: Ed, CassieAttending: Ed, CassieReferring: EdSrinivasa Source .VAGINAL SWAB [facility] Comment on above: Note: Responsible Ob server engineer: [employer] ([id number]) Trichomonas Negative (NEG ) [facility] Comment on above: Note: for Trichomona s VaginalisResponsible Observer: LETICIA MONTENEGRO ([id number]) Cult,Urineon 02-06-2023 Cult,Urine Specimen Description .CLEAN CATCH URINE Culture NO SIGNIFICANT GROWTH Report Status FINAL 02/06/2023 Normal [facility] Comment on above: Performed By: #### U RC #### [facility] [address] [place] [address] [phone] Survey Manager: Juan Neumann MD Vaginitis DNA Probeon 2022 Kayla Positive Abnormal NEG [facility] Comment on above: Result Comment: for Kayla sp. Method of testing is a DNA probe intended for detection and identification of Kayla species, Gardnerella vaginalis, and Trichomonas vaginalis nucleic acid in vaginal fluid specimens from patients with symptoms of vaginitis/vaginosis. Performed By: #### V AGP #### [employer] [address] [place] [address] [phone] Survey Manager: Juan Neumann MD Gardnerella Negative Normal NEG [facility] Comment on above: Result Comment: for Gardnerella vaginalis Performed By: #### V AGP #### [facility] [address] [place], [place] [phone] Survey Manager: Juan Neumann MD Trichomonas Negative Normal NEG [facility] Comment on above: Result Comment: for Trichomonas Vaginalis Performed By: #### V AGP #### [facility] [address] [place] [address] [phone] Survey Manager: Juan Neumann MD Source .VAGINAL SWAB Normal [facility] Comment on above: Performed By: #### V AGP #### [facility] [address] [place] [address] [phone] Survey Manager: Juan Neumann MD Laboratory - Microbiology an d Antimicrobial susceptibilityon 02-05-2023 Bacteria identified Cx Nom (U) See Note [facility] Comment on above: Note: Specimen Descr iption .CLEAN CATCH URINECulture NO SIGNIFICANT GROWTHReport Status FINAL 02/06/2023Responsible Observer: SHERYL WEISS ([id number]) No Panel Informationon 02-05 Kayla Positive Abnormal (NEG ) [facility] Comment on above: Note: for Kayla sp .Method of testing is a DNA probe intended for detection and identification ofCandida species, Gardnerella vaginalis, and Trichomonas vaginalis nucleic acidin vaginal fluid specimens from patients with symptoms of vaginitis/vaginosis.Responsible Observer: NAWAF DENTON ([id number]) Gardnerella Negative (NEG ) [facility] Comment on above: Note: for Gardnerell a vaginalisResponsible Observer: NAWAF DENTON ([id number]) Reported Physicians [facility] Comment on above: Note: Reported Physi cians:Ordering: Srinivasa JhaveriAttending: Cathryn JhaveriieReferring: Srinivasa Jhaveri Source .VAGINAL SWAB [facility] Comment on above: Note: Responsible Ob server engineer: SHERYL WEISS ([id number]) Trichomonas Negative (NEG ) [facility] Comment on above: Note: for Trichomona s VaginalisResponsible Observer: NAWAF DENTON ([id number]) CT ABDOMEN PELVIS W IV CONTR Jorge [...] Nellie Kiran MD 01/30/23 Final result Normal [facility] CBC with Diffon 01-28-2023 Abs. Basophil 0.05 k/uL Normal 0.00-0.20 [facility] Comment on above: Performed By: #### C P, CDP, MG, LIP #### [facility] [address] [place] [address] Survey Manager: Ernst Dillard MD Abs.Imm.Granulocyte 0.03 k/uL Normal 0.00-0.30 [facility] Comment on above: Performed By: #### C P, CDP, MG, LIP #### [address] [place], [facility]83 Survey Manager: Ernst Dillard MD Abs.Neutrophil (Seg) 5.52 k/uL Normal 1.50-8.10 [facility] Comment on above: Performed By: #### C P, CDP, MG, LIP #### [address] [place], [facility]83 Survey Manager: Ernst Dillard MD Basophils/100 WBC (Bld) 1 % Normal 0-2 [facility] Comment on above: Performed By: #### C P, CDP, MG, LIP #### [address] [place], [facility]83 Survey Manager: Ernst Dillard MD Eosinophils (Bld) [#/Vol] 0.13 10*3/uL Normal 0.00-0.44 [facility] Comment on above: Performed By: #### C P, CDP, MG, LIP #### [address] [place], [facility]83 Survey Manager: Ernst Dillard MD Eosinophils/100 WBC (Bld) 2 % Normal 1-4 [facility] Comment on above: Performed By: #### C P, CDP, MG, LIP #### [address] [place], [facility]83 Survey Manager: Ernst Dillard MD Erythrocyte distribution width (RBC) [Ratio] 13.5 % Normal 11.8-14.4 [facility] Comment on above: Performed By: #### C P, CDP, MG, LIP #### [address] [place], [facility]83 Survey Manager: Ernst Dillard MD Hematocrit (Bld) [Volume fraction] 41.4 % Normal 36.3-47.1 [facility] Comment on above: Performed By: #### C P, CDP, MG, LIP #### [address] [place], [facility]83 Survey Manager: Ernst Dillard MD Hemoglobin (Bld) [Mass/Vol] 13.5 g/dL Normal 11.9-15.1 [facility] Comment on above: Performed By: #### C P, CDP, MG, LIP #### [address] [place], [facility]83 Survey Manager: Ernst Dillard MD Immature granulocytes/100 WBC (Bld) 0 % Normal 0 [facility] Comment on above: Performed By: #### C P, CDP, MG, LIP #### [address] [place], [facility]83 Survey Manager: Ernst Dillard MD Lymphocytes (Bld) [#/Vol] 2.27 10*3/uL Normal 1.10-3.70 [facility] Comment on above: Performed By: #### C P, CDP, MG, LIP #### [address] [place], [facility]83 Survey Manager: Ernst Dillard MD Lymphocytes/100 WBC (Bld) 26 % Normal 24-43 [facility] Comment on above: Performed By: #### C P, CDP, MG, LIP #### [address] [place], [facility]83 Survey Manager: Ernst Dillard MD MCH (RBC) [Entitic mass] 30.0 pg Normal 25.2-33.5 [facility] Comment on above: Performed By: #### C P, CDP, MG, LIP #### [address] [place] [address] Survey Manager: Ernst Dillard MD MCHC (RBC) [Mass/Vol] 32.6 g/dL Normal 28.4-34.8 [facility] Comment on above: Performed By: #### C P, CDP, MG, LIP #### [address] [place], [facility]83 Survey Manager: Ernst Dillard MD MCV (RBC) [Entitic vol] 92.0 fL Normal 82.6-102.9 [facility] Comment on above: Performed By: #### C P, CDP, MG, LIP #### [address] [place], [facility]83 Survey Manager: Ernst Dillard MD Monocytes (Bld) [#/Vol] 0.67 10*3/uL Normal 0.10-1.20 [facility] Comment on above: Performed By: #### C P, CDP, MG, LIP #### [address] [place], [place] [address] Survey Manager: Ernst Dillard MD Monocytes/100 WBC (Bld) 8 % Normal 3-12 [facility] Comment on above: Performed By: #### C P, CDP, MG, LIP #### [address] [place], [facility]83 Survey Manager: Ernst Dillard MD Neutrophil (Seg) 63 % Normal 36-65 [facility] Comment on above: Performed By: #### C P, CDP, MG, LIP #### [address] [place], [facility]83 Survey Manager: Ernst Dillard MD NRBC Automated 0.0 per 100 WBC Normal 0.0 [facility] Comment on above: Performed By: #### C P, CDP, MG, LIP #### [address] [place] [address] Survey Manager: Ernst Dillard MD Platelet mean volume (Bld) [Entitic vol] 9.5 fL Normal 8.1-13.5 [facility] Comment on above: Performed By: #### C P, CDP, MG, LIP #### [facility] [address] [place], [place] [phone] Survey Manager: Ernst Dillard MD Platelets (Bld) [#/Vol] 270 10*3/uL Normal 138-453 [facility] Comment on above: Performed By: #### C P, CDP, MG, LIP #### [facility] [address] [place], [place] [phone] Survey Manager: Ernst Dillard MD RBC (Bld) [#/Vol] 4.50 10*6/uL Normal 3.95-5.11 [facility] Comment on above: Performed By: #### C P, CDP, MG, LIP #### [address] [place], [place] [phone] Survey Manager: Ernst Dillard MD WBC (Bld) [#/Vol] 8.7 10*3/uL Normal 3.5-11.3 [facility] Comment on above: Performed By: #### C P, CDP, MG, LIP #### [address] [place] [address] Survey Manager: Ernst Dillard MD Comp Metabolic Profon 2022 Albumin [Mass/Vol] 4.1 g/dL Normal 3.5-5.2 [facility] Comment on above: Performed By: #### C P, CDP, MG, LIP #### [address] [place], [place] [id number] Survey Manager: Ernst Dillard MD Albumin/Glob Ratio 1.5 Normal 1.0-2.5 [facility] Comment on above: Performed By: #### C P, CDP, MG, LIP #### [facility] [address] [place], [place] [address] Survey Manager: Ernst Dillard MD Alkaline Phos 63 U/L Normal 35-104 [facility] Comment on above: Performed By: #### C P, CDP, MG, LIP #### [facility] [address] [place], [facility]83 Survey Manager: Ernst Dillard MD ALT [Catalytic activity/Vol] 21 U/L Normal 5-33 [facility] Comment on above: Performed By: #### C P, CDP, MG, LIP #### [facility] [address] [place], [facility]83 Survey Manager: Ernst Dillard MD Anion gap [Moles/Vol] 9 mmol/L Normal 9-17 [facility] Comment on above: Performed By: #### C P, CDP, MG, LIP #### [address] [place], [facility]83 Survey Manager: Ernst Dillard MD AST [Catalytic activity/Vol] 14 U/L Normal <32 [facility] Comment on above: Performed By: #### C P, CDP, MG, LIP #### [address] [place], [facility]83 Survey Manager: Ernst Dillard MD Bilirubin [Mass/Vol] 0.2 mg/dL Low 0.3-1.2 [facility] Comment on above: Performed By: #### C P, CDP, MG, LIP #### [address] [place], [facility]83 Survey Manager: Ernst Dillard MD BUN/CRE Ratio 9 Normal 9-20 [facility] Comment on above: Performed By: #### C P, CDP, MG, LIP #### [facility] [address] [place] [address] Survey Manager: Ernst Dillard MD Calcium [Mass/Vol] 8.9 mg/dL Normal 8.6-10.4 [facility] Comment on above: Performed By: #### C P, CDP, MG, LIP #### [facility] [address] [place] [address] Survey Manager: Ernst Dillard MD Chloride [Moles/Vol] 106 mmol/L Normal 98-107 [facility] Comment on above: Performed By: #### C P, CDP, MG, LIP #### [facility] [address] [place] [address] Survey Manager: Ernst Dillard MD CO2 [Moles/Vol] 26 mmol/L Normal 20-31 [facility] Comment on above: Performed By: #### C P, CDP, MG, LIP #### [facility] [address] [place] [address] Survey Manager: Ernst Dillard MD Creatinine [Mass/Vol] 0.8 mg/dL Normal 0.5-0.9 [facility] Comment on above: Performed By: #### C P, CDP, MG, LIP #### [facility] [address] [place] [address] Survey Manager: Ernst Dillard MD GFR/1.73 sq M.predicted among non-blacks MDRD (S/P/Bld) [Vol rate/Area] mL/min/{1.73_m2} Normal >60 [facility] Comment on above: Result Comment: These results [...] #### C P, CDP, MG, LIP #### [facility] [address] [place] [address] Survey Manager: Ernst Dillard MD Glucose [Mass/Vol] 91 mg/dL Normal 70-99 [facility] Comment on above: Performed By: #### C P, CDP, MG, LIP #### [facility] [address] [place], [place] [id number] Survey Manager: Ernst Dillard MD Potassium [Moles/Vol] 3.6 mmol/L Low 3.7-5.3 [facility] Comment on above: Performed By: #### C P, CDP, MG, LIP #### [address] [place], [place] [id number] Survey Manager: Ernst Dillard MD Protein [Mass/Vol] 6.8 g/dL Normal 6.4-8.3 [facility] Comment on above: Performed By: #### C P, CDP, MG, LIP #### [address] [place] [id number] Survey Manager: Ernst Dillard MD Sodium [Moles/Vol] 141 mmol/L Normal 135-144 [facility] Comment on above: Performed By: #### C P, CDP, MG, LIP #### [address] [place], [place] [id number] Survey Manager: Ernst Dillard MD Urea nitrogen [Mass/Vol] 7 mg/dL Normal 6-20 [facility] Comment on above: Performed By: #### C P, CDP, MG, LIP #### [address] [place], [place] [id number] Survey Manager: Ernst Dillard MD Lactic Acidon 0 Lactate [Moles/Vol] 0.8 mmol/L Normal 0.5-2.2 [facility] Comment on above: Performed By: #### L ACTIC #### [address] [place] [address] Survey Manager: Ernst Dillard MD Lipaseon 01-28-2023 Lipase [Catalytic activity/Vol] 21 U/L Normal 13-60 [facility] Comment on above: Performed By: #### C P, CDP, MG, LIP #### [facility] [address] [place], [place] [address] Survey Manager: Ernst Dillard MD Magnesiumon 01-28-2023 Magnesium [Mass/Vol] 2.1 mg/dL Normal 1.6-2.6 [facility] Comment on above: Performed By: #### U AX, UMICAO #### [facility] [address] [place], [place] [address] Survey Manager: Ernst Dillard MD US PELVIS AND TRANSVAGon US PELVIS AND [...] KIRK SHANNON Date: 2022-08-06 06:54 Normal [facility] CBC AUTO DIFFon 08-05-2022 BASO # 0.1 103/ul Normal 0.0-0.1 [facility] Comment on above: Performed By: #### C BC ####[facility] [address] [place] [address]DrTonya Menchaca Basophils/100 WBC (Bld) 0.3 % Normal 0.2-2.0 [facility] Comment on above: Performed By: #### C BC ####[facility] Luoky[address]acy[address] [place], [place] [address]Dr. Senthil Menchaca EO # 0.2 103/ul Normal 0.0-0.7 [facility] Comment on above: Performed By: #### C BC ####[facility] O[address] [place], [place] [address]Dr. Senthil Menchaca Eosinophils/100 WBC (Bld) 0.8 % Critically low 0.9-7.0 [facility] Comment on above: Performed By: #### C BC ####[facility] [address] [place], [place] [address]Dr. Senthil Menchaca Erythrocyte distribution width (RBC) [Ratio] 13.5 % Normal 11.0-15.0 [facility] Comment on above: Performed By: #### C BC ####[facility] Lukt[address] [place], [place] [address]Dr. Senthil Menchaca Hematocrit (Bld) [Volume fraction] 42.8 % Normal 36.0-48.0 [facility] Comment on above: Performed By: #### C BC ####[facility] Sk[address] [place], [place] [address]Dr. Senthil Menchaca Hemoglobin (Bld) [Mass/Vol] 14.0 g/dL Normal 12.0-16.0 [facility] Comment on above: Performed By: #### C BC ####[facility] P[address] [place], [place] [address]Dr. Senthil Menchaca IG # 0.08 10e3/ul Critically high 0.00-0.03 [facility] Comment on above: Performed By: #### C BC ####[facility] Cfkchws[address] [place], [place] [address]Dr. Senthil Menchaca IG % 0.4 % Normal 0.0-0.5 [facility] Comment on above: Performed By: #### C BC ####[facility] [address] [place], [place] [address]Dr. Senthil Nikolai LYMPH # 2.0 103/ul Normal 1.2-3.8 [facility] Comment on above: Performed By: #### C BC ####[facility] [address] [place] [address]Dr. Senthil Nikolai Lymphocytes/100 WBC (Bld) 11.0 % Critically low 20.5-60.0 [facility] Comment on above: Performed By: #### C BC ####[facility] [address] [place] [address]Dr. Senthil Menchaca MANUAL DIFF REQ NO Normal [facility] Comment on above: Performed By: #### C BC ####[facility] [address] [place] [address]Dr. Senthil Nikolai MCH (RBC) [Entitic mass] 30.1 pg Normal 26.7-34.0 [facility] Comment on above: Performed By: #### C BC ####[facility] Feins[address] [place], [place] [address]Dr. Senthil Nikolai MCHC (RBC) [Mass/Vol] 32.7 g/dL Normal 29.9-35.2 [facility] Comment on above: Performed By: #### C BC ####[facility] Y[address] [place], [place] [address]Dr. Senthil Menchaca MCV (RBC) [Entitic vol] 92.0 fL Normal 81.0-99.0 [facility] Comment on above: Performed By: #### C BC ####[facility] [address] [place] [address]Dr. Senthil Menchaca MONO # 0.9 103/ul Critically high 0.3-0.8 [facility] Comment on above: Performed By: #### C BC ####[facility] Bdly[address]xlz[address] [place], [place] [address]Dr. Senthil Menchaca Monocytes/100 WBC (Bld) 4.9 % Normal 1.7-12.0 [facility] Comment on above: Performed By: #### C BC ####[facility] [address] [place], [place] [address]Dr. Senthil Menchaca NEUT # 14.8 103/ul Critically high 1.4-6.5 [facility] Comment on above: Performed By: #### C BC ####[facility] [address] [place] [id number]. Senthil Menchaca Neutrophils/100 WBC (Bld) 82.6 % Critically high 43.0-75.0 [facility] Comment on above: Performed By: #### C BC ####[facility] [address] [place] [address]Dr. Senthil Menchaca Platelet mean volume (Bld) [Entitic vol] 9.2 fL Critically low 9.5-13.5 [facility] Comment on above: Performed By: #### C BC ####[facility] [address] [place] [address]Dr. Senthil Menchaca PLT 311 103/ul Normal 150-450 [facility] Comment on above: Performed By: #### C BC ####[facility] [address] [place] [id number] Menchaca RBC 4.65 106/ul Normal 4.20-5.40 [facility] Comment on above: Performed By: #### C BC ####[facility] [address] [place] [id number] Salgadomikel Nikolai WBC 18.0 103/ul Critically high 4.0-11.0 [facility] Comment on above: Performed By: #### C BC ####[facility] [address] [place] [id number]. Senthil Menchaca FREE T4on 08-05-2022 Free T4 [Mass/Vol] 0.92 ng/dL Normal 0.76-1.46 [facility] Comment on above: Performed By: #### F T4 #### [facility] [id number] Senthil Menchaca GLYCOHEMOGLOBIN A1Con 2022 ADA RECOMMENDATION SEE BELOW Normal [facility] Comment on above: Result Comment: ADA RECOMMENDED LIMIT 4.0 - 6.0 ADA THERAPEUTIC TARGET < 7.0 ACTION SUGGESTED > 7.0 Performed By: #### A 1C ####[facility] [address] [place] [address]DrTonya Menchaca Glucose [Mass/Vol] 100 mg/dL Normal [facility] Comment on above: Performed By: #### A 1C ####[facility] [address] [place] [address]DrTonya Menchaca HbA1c (Bld) [Mass fraction] 5.1 % Normal 4.5-6.2 [facility] Comment on above: Performed By: #### A 1C ####[facility] [address] [place] [address]DrTonya Menchaca PREG QUANT HCGon 08-05-2022 HCG QUANT <1 Normal [facility] Comment on above: Performed By: #### P REGQNT, TSH #### [facility] [address] [place] [address] [address] Senthil Menchaca HCG RANGE SEE BELOW Normal [facility] Comment on above: Result Comment: 5-50 0.2-1 WEEK 50-500 1-2 WEEKS 100-5,000 2-3 WEEKS 500-10,000 3-4 WEEKS 1,000-50,000 4-5 WEEKS 10,000-100,000 5-6 WEEKS 15,000-200,000 6-8 WEEKS 10,000-100,000 2-3 MONTHS Performed By: #### P REGQNT, TSH #### [facility] [address] [place] [address] [address] Senthil Menchaca PROTIMEon 08-05-2022 INR Coag (PPP) [Relative time] 1.01 {INR} Normal [facility] Comment on above: Performed By: #### P TT, PT ####[facility] H[address] [place], [place] [address]Dr. Senthil Menchaca INR GUIDELINES SEE BELOW Normal [facility] Comment on above: Result Comment: BAYLEE RED INR: 2.0 - 3.0 CONDITIONS NOT LISTED BELOW 2.5 - 3.5 FOR PROSTHETIC HEART VALVE REPLACEMENT 2.5 - 3.5 RECURRENT THROMBOSIS Performed By: #### P TT, PT ####[facility] [address] [place] [address]Dr. Senthil Menchaca PT Coag (PPP) [Time] 10.7 s Normal 9.0-11.6 [facility] Comment on above: Performed By: #### P TT, PT ####[facility] [address] [place] [address]Dr. Senthil Menchaca PTTon 08-05-2022 aPTT Coag (Bld) [Time] 26.6 s Normal 22.3-36.2 [facility] Comment on above: Performed By: #### P TT, PT ####[facility] [address] [place] [address]Dr. Senthil Menchaca TSHon 08-05-2022 TSH 0.486 uIU/mL Normal 0.358-3.74 0 [facility] Comment on above: Performed By: #### P REGQNT, TSH #### [facility] [address] [place] [address] Dr. Senthil Menchaca CBC AUTO DIFFon 07-03-2022 BASO # 0.1 103/ul Normal 0.0-0.1 [facility] Comment on above: Performed By: #### C BC #### [facility] [address] [place] [address] Dr. Senthil Menchaca Basophils/100 WBC (Bld) 0.9 % Normal 0.2-2.0 [facility] Comment on above: Performed By: #### C BC #### [facility] [address] [place] [address] Dr. Senthil Menchaca EO # 0.2 103/ul Normal 0.0-0.7 [facility] Comment on above: Performed By: #### C BC #### [facility] [address] [place] [address] Dr. Senthil Menchaca Eosinophils/100 WBC (Bld) 2.0 % Normal 0.9-7.0 [facility] Comment on above: Performed By: #### C BC #### [facility] [address] [place] [address] Dr. Senthil Menchaca Erythrocyte distribution width (RBC) [Ratio] 13.8 % Normal 11.0-15.0 [facility] Comment on above: Performed By: #### C BC #### [facility] [address] [place] [address] Dr. Senthil Menchaca Hematocrit (Bld) [Volume fraction] 44.2 % Normal 36.0-48.0 [facility] Comment on above: Performed By: #### C BC #### [facility] [address] [place] [address] Dr. Senthil Menchaca Hemoglobin (Bld) [Mass/Vol] 14.4 g/dL Normal 12.0-16.0 [facility] Comment on above: Performed By: #### C BC #### [facility] [address] [place] [address] Dr. Senthil Menchaca IG # 0.03 10e3/ul Normal 0.00-0.03 [facility] Comment on above: Performed By: #### C BC #### [facility] [address] [place] [address] Dr. Senthil Menchaca IG % 0.3 % Normal 0.0-0.5 [facility] Comment on above: Performed By: #### C BC #### [facility] [address] [place] [address] Dr. Senthil Menchaca LYMPH # 2.8 103/ul Normal 1.2-3.8 [facility] Comment on above: Performed By: #### C BC #### [facility] [address] [place] [address] Dr. Senthil Menchaca Lymphocytes/100 WBC (Bld) 27.5 % Normal 20.5-60.0 [facility] Comment on above: Performed By: #### C BC #### [facility] [address] [place] [address] Dr. Senthil Menchaca MANUAL DIFF REQ NO Normal [facility] Comment on above: Performed By: #### C BC #### [facility] [address] [place] [address] Dr. Senthil Menchaca MCH (RBC) [Entitic mass] 29.8 pg Normal 26.7-34.0 [facility] Comment on above: Performed By: #### C BC #### [facility] [address] [place] [address] [address] Senthil Menchaca MCHC (RBC) [Mass/Vol] 32.6 g/dL Normal 29.9-35.2 [facility] Comment on above: Performed By: #### C BC #### [facility] [address] [place] [address] [address] Senthil Menchaca MCV (RBC) [Entitic vol] 91.5 fL Normal 81.0-99.0 [facility] Comment on above: Performed By: #### C BC #### [facility] [address] [place] [address] [address] Senthil Menchaca MONO # 1.1 103/ul Critically high 0.3-0.8 [facility] Comment on above: Performed By: #### C BC #### [facility] [address] [place] [address] [address] Senthil Menchaca Monocytes/100 WBC (Bld) 11.2 % Normal 1.7-12.0 [facility] Comment on above: Performed By: #### C BC #### [facility] [address] [place] [address] [address] Senthil Menchaca NEUT # 6.0 103/ul Normal 1.4-6.5 [facility] Comment on above: Performed By: #### C BC #### [facility] [address] [place] [address] [address] Senthil Menchaca Neutrophils/100 WBC (Bld) 58.1 % Normal 43.0-75.0 [facility] Comment on above: Performed By: #### C BC #### [facility] [address] [place] [address] [address] Senthil Menchaca Platelet mean volume (Bld) [Entitic vol] 9.2 fL Critically low 9.5-13.5 [facility] Comment on above: Performed By: #### C BC #### [facility] [address] [place] [address] [address] Senthil Menchaca PLT 324 103/ul Normal 150-450 [facility] Comment on above: Performed By: #### C BC #### [facility] [address] [place], [place] [address] Dr. Senthil Menchaca RBC 4.83 106/ul Normal 4.20-5.40 [facility] Comment on above: Performed By: #### C BC #### [facility] [address] [place], [place] [address] Dr. Senthil Menchaca WBC 10.2 103/ul Normal 4.0-11.0 [facility] Comment on above: Performed By: #### C BC #### [facility] [address] [place], [place] [address] ABD/PELV W CONon [...] LORRIE CESPEDES Date: 2022-07-03 18:01 Normal [facility] ER URINE PROFILEon 3 Bilirubin Ql (U) Negative Normal NEGATIVE [facility] Comment on above: Performed By: #### P REGU, ERUR, UMICRO #### [facility] [address] [place] [address] [address] Senthil Menchaca Clarity (U) CLEAR Normal CLEAR [facility] Comment on above: Performed By: #### P REGU, ERUR, UMICRO #### [facility] [address] [place] [address] [address] Senthil Menchaca Color (U) LT. YELLOW Normal YELLOW [facility] Comment on above: Performed By: #### P REGU, ERUR, UMICRO #### [facility] [address] [place] [address] [address] Senthil SHIPLEY A micrscopic examina tion will be performed if indicated. Normal [facility] Comment on above: Performed By: #### P REGU, ERUR, UMICRO #### [facility] [address] [place] [address] Dr. Senthil Menchaca Glucose Ql (U) Negative Normal NEGATIVE [facility] Comment on above: Performed By: #### P REGU, ERUR, UMICRO #### [facility] [address] [place] [address] Dr. Senthil Menchaca Hemoglobin Ql (U) TRACE-INTACT Abnormal NEGATIVE [facility] Comment on above: Performed By: #### P REGU, ERUR, UMICRO #### [facility] [address] [place] [address] Dr. Senthil Menchaca Ketones Ql (U) Negative Normal NEGATIVE [facility] Comment on above: Performed By: #### P REGU, ERUR, UMICRO #### [facility] [address] [place] [address] [address] Senthil Menchaca LEUKOCYTES Negative Normal NEGATIVE [facility] Comment on above: Performed By: #### P REGU, ERUR, UMICRO #### [facility] [address] [place] [address] [address] Senthil Menchaca Nitrite Ql (U) Negative Normal NEGATIVE [facility] Comment on above: Performed By: #### P REGU, ERUR, UMICRO #### [facility] [address] [place] [address] Dr. Senthil Menchaca pH (U) 7.0 [pH] Normal 5-9 [facility] Comment on above: Performed By: #### P REGU, ERUR, UMICRO #### [facility] [address] [place] [address] [address] Senthil Menchaca SPEC GRAVITY 1.010 Normal 1.005-<=1. 025 [facility] Comment on above: Performed By: #### P REGU, ERUR, UMICRO #### [facility] [address] [place] [address] [address] Senthil Menchaca UA PROTEIN Negative Normal NEGATIVE/ TRACE [facility] Comment on above: Performed By: #### P REGU, ERUR, UMICRO #### [facility] [address] [place] [address] [address] Senthil Menchaca UR MICRO IND INDICATED Normal [facility] Comment on above: Performed By: #### P REGU, ERUR, UMICRO #### [facility] [address] [place] [address] [address] Senthil Menchaca Urobilinogen Qn (U) 0.2 {Sherley'U}/dL Normal 0.2 - 1. 0 [facility] Comment on above: Performed By: #### P REGU, ERUR, UMICRO #### [facility] [address] [place] [address] [address] Senthil Menchaca URon 07-03-2022 , QUAL Negative Normal NEGATIVE [facility] Comment on above: Performed By: #### P REGU, ERUR, UMICRO #### [facility] [address] [place] [address] [address] Senthil Menchaca PROF 14(COMP METB)on 023 Albumin [Mass/Vol] 4.3 g/dL Normal 3.4-5.0 [facility] Comment on above: Performed By: #### C MP ####[facility] [address] [place] [address]Dr. Senthil Menchaca Albumin/Globulin [Mass ratio] 1.3 {ratio} Normal [facility] Comment on above: Performed By: #### C MP ####[facility] [address] [place] [address]Dr. Senthil Menchaca ALP [Catalytic activity/Vol] 84 U/L Normal 46-116 [facility] Comment on above: Performed By: #### C MP ####[facility] [address] [place] [address]Dr. Senthil Menchaca ALT [Catalytic activity/Vol] 23 U/L Normal 14-59 [facility] Comment on above: Performed By: #### C MP ####[facility] [address] [place], [place] [address]Dr. Senthil Nikolai Anion gap [Moles/Vol] 12.0 mmol/L Normal [facility] Comment on above: Performed By: #### C MP ####[facility] [address] [place], [place] [address]Dr. Senthil Menchaca AST [Catalytic activity/Vol] 15 U/L Normal 15-37 [facility] Comment on above: Performed By: #### C MP ####[facility] [address] [place], [place] [address]Dr. Senthil Nikolai Bilirubin [Mass/Vol] 0.3 mg/dL Normal 0.2-1.0 [facility] Comment on above: Performed By: #### C MP ####[facility] [address] [place], [place] [address]Dr. Senthil Nikolai Calcium [Mass/Vol] 8.7 mg/dL Normal 8.5-10.1 [facility] Comment on above: Performed By: #### C MP ####[facility] [address] [place], [place] [address]Dr. Senthil Nikolai Chloride [Moles/Vol] 103 mmol/L Normal 98-107 [facility] Comment on above: Performed By: #### C MP ####[facility] [address] [place], [place] [address]Dr. Senthil Nikolai CO2 [Moles/Vol] 27.6 mmol/L Normal 21.0-32.0 [facility] Comment on above: Performed By: #### C MP ####[facility] [address] [place], [place] [address]Dr. Senthil Menchaca Creatinine [Mass/Vol] 0.78 mg/dL Normal 0.55-1.02 [facility] Comment on above: Performed By: #### C MP ####[facility] [address] [place] [address]Dr. Senthil Menchaca EGFR-AF BAHAMIAN >60 Normal >=60 [facility] Comment on above: Performed By: #### C MP ####[facility] [address] [place] [id number]. Senthil Nikolai EGFR-NON AF BAHAMIAN >60 Normal >=60 [facility] Comment on above: Performed By: #### C MP ####[facility] [address] [place] [address]Dr. Senthil Nikolai Globulin (S) [Mass/Vol] 3.3 g/dL Normal T [facility] Comment on above: Performed By: #### C MP ####[facility] [address] [place] [address]Dr. Senthil Nikolai Glucose [Mass/Vol] 86 mg/dL Normal 74-106 [facility] Comment on above: Performed By: #### C MP ####[facility] [address] [place] [address]Dr. Senthil Nikolai Potassium [Moles/Vol] 3.6 mmol/L Normal 3.5-5.1 [facility] Comment on above: Performed By: #### C MP ####[facility] [address] [place] [address]Dr. Senthil Nikolai Protein [Mass/Vol] 7.6 g/dL Normal 6.4-8.2 [facility] Comment on above: Performed By: #### C MP ####[facility] [address] [place] [address]Dr. Senthil Menchaca Sodium [Moles/Vol] 139 mmol/L Normal 136-145 [facility] Comment on above: Performed By: #### C MP ####[facility] [address] [place] [address]Dr. Senthil Nikolai Urea nitrogen [Mass/Vol] 8.0 mg/dL Normal 7.0-18.0 [facility] Comment on above: Performed By: #### C MP ####[facility] [address] [place] [address]Dr. Senthil Menchaca Urea nitrogen/Creatinine [Mass ratio] 10.3 mg/mg Normal [facility] Comment on above: Performed By: #### C MP ####[facility] [address] [place] [address]Dr. Senthil Menchaca URINE MICROSCOPIC ONLYon BACTERIA TRACE Abnormal NONE SEEN [facility] Comment on above: Performed By: #### P REGU, ERUR, UMICRO ####[facility] [address] [place] [address]Dr. Senthil Menchaca Bacteria identified Cx Nom (U) NOT INDICATED Normal [facility] Comment on above: Performed By: #### P REGU, ERUR, UMICRO ####[facility] [address] [place] [address]Dr. Senthil Menchaca CAST NONE SEEN Normal NONE SEEN [facility] Comment on above: Performed By: #### P REGU, ERUR, UMICRO ####[facility] [address] [place] [address]Dr. Senthil Menchaca Crystals LM Nom (Urine sed) NONE SEEN Normal NONE SEEN [facility] Comment on above: Performed By: #### P REGU, ERUR, UMICRO ####[facility] [address] [place] [address]Dr. Senthil Menchaca Epithelial cells LM Ql (Urine sed) FEW Abnormal NONE SEEN /RARE [facility] Comment on above: Performed By: #### P REGU, ERUR, UMICRO ####[facility] [address] [place] [address]Dr. Senthil Menchaca MUCOUS NONE SEEN Normal NONE SEEN [facility] Comment on above: Performed By: #### P REGU, ERUR, UMICRO ####[facility] [address] [place] [address]Dr. Senthil Mecnhaca RBC 2-5 Abnormal 0-2 [facility] Comment on above: Performed By: #### P CYNTHIA ROGERS UMICRO ####[facility] [address] [place], [place] [address]Ho. Senthil Menchaca WBC 0-2 Abnormal NONE SEEN [facility] Comment on above: Performed By: #### P CYNTHIA ROGERS UMICRO ####[facility] [address] [place], [place] [address]Vy. Senthil Menchaca Microscopic Urinalysison Bacteria, UA 1+ Abnormal None [facility] Epithelial Cells UA 0 TO 2 [facility] Interpretation and review of laboratory results Abnormal [facility] RBC clumps Auto (Urine sed) [#/Area] 0 TO 2 [facility] WBC, UA 0 TO 2 [facility] Urinalysis with Reflex to Cu ltureon 06-08-2022 Bilirubin Urine Negative NEGATIVE [facility] Color, UA Yellow Yellow [facility] Glucose Auto test strip (U) [Mass/Vol] Negative NEGATIVE [facility] Interpretation and review of laboratory results Abnormal [facility] Ketones (U) [Mass/Vol] Negative NEGATIVE [facility] Leukocyte esterase Auto test strip Ql (U) Negative NEGATIVE [facility] Nitrite Auto test strip Ql (U) Negative NEGATIVE [facility] Protein (U) [Mass/Vol] 6.0 mg/dL 5.0 - 9.0 [facility] Protein (U) [Mass/Vol] Negative NEGATIVE [facility] Specific [place], UA Low 1.010 - 1.020 [facility] Turbidity UA Clear Clear [facility] Urine Hgb Negative NEGATIVE [facility] Urobilinogen, Urine Normal Normal [facility] CBCon 06-07-2022 Hematocrit (Bld) [Volume fraction] 39.0 % 36.3 - 47.1 % [facility] Hemoglobin (Bld) [Mass/Vol] 13.2 g/dL 11.9 - 15.1 g/dL [facility] MCH (RBC) [Entitic mass] 31.4 pg 25.2 - 33.5 pg [facility] MCHC (RBC) [Mass/Vol] 33.8 g/dL 28.4 - 34.8 g/dL [facility] MCV (RBC) [Entitic vol] 92.6 fL 82.6 - 102.9 fL [facility] NRBC Automated 0.0 0.0 per 100 WBC [facility] Platelet distribution width (Bld) [Ratio] 13.6 % 11.8 - 14.4 % [facility] Platelet mean volume (Bld) [Entitic vol] 9.1 fL 8.1 - 13.5 fL [facility] Platelets (Bld) [#/Vol] 264 10*3/uL [facility] RBC (Bld) [#/Vol] 4.21 10*6/uL 3.95 - 5.11 m/uL [facility] WBC (Bld) [#/Vol] 11.1 10*3/uL [facility] Comprehensive Metabolic Pane ayush 06-07-2022 Albumin [Mass/Vol] 4.2 g/dL 3.5 - 5.2 g/dL [facility] Albumin/Globulin [Mass ratio] 1.6 {ratio} 1.0 - 2.5 [facility] ALP [Catalytic activity/Vol] 68 U/L 35 - 104 U/L [facility] ALT [Catalytic activity/Vol] 20 U/L 5 - 33 U/L [facility] Anion gap [Moles/Vol] 9 mmol/L 9 - 17 mmol/L [facility] AST [Catalytic activity/Vol] 14 U/L NINF - 32 U/L [facility] Bilirubin [Mass/Vol] 0.2 mg/dL Low 0.3 - 1 .2 mg/dL [facility] Calcium [Mass/Vol] 9.1 mg/dL 8.6 - 10. 4 mg/dL [facility] Chloride [Moles/Vol] 103 mmol/L 98 - 10 7 mmol/L [facility] CO2 [Moles/Vol] 28 mmol/L 20 - 31 mmol/L [facility] Creatinine [Mass/Vol] 0.75 mg/dL 0.50 - 0.90 mg/dL [facility] GFR/1.73 sq M.predicted MDRD (S/P/Bld) [Vol rate/Area] - PINF [facility] Comment on above: These results are not [...] [Mass/Vol] 79 mg/dL 70 - 99 mg/dL [facility] Interpretation and review of laboratory results Abnormal [facility] Potassium [Moles/Vol] 4.0 mmol/L 3.7 - 5.3 mmol/L [facility] Protein [Mass/Vol] 6.8 g/dL 6.4 - 8.3 g/dL [facility] Sodium [Moles/Vol] 140 mmol/L 135 - 144 mmol/L [facility] Urea nitrogen [Mass/Vol] 9 mg/dL 6 - 20 mg/dL [facility] Urea nitrogen/Creatinine (Bld) [Mass ratio] 12 9 - 20 [facility] HCG Qualitative, Serumon hCG Qual Negative NEGATIVE [facility] Comment on above: Specimens with hCG l evels near the threshold of the test (25 mIU/mL) may give a negative or indeterminate result. In such cases, another test should be performed with a new specimen in 48-72 hours. If early is suspected clinically in this setting, correlation with quantitative serum b-hCG level is suggested. [employer] has confirmed the use of plasma for this test. This has not been cleared or approved by the U.S. Food and Drug Administration. The FDA has determined that such clearance is not necessary. [facility] Lipaseon 06-07-2022 Lipase [Catalytic activity/Vol] 22 U/L 13 - 60 U/L [facility] No Panel Informationon 06-07 [facility] AMYLASEon 01-20-2022 Amylase [Catalytic activity/Vol] 55 U/L Normal 25-115 [facility] Comment on above: Performed By: #### E SHON MCCLELLANDU #### [facility] Laboratory [address] [address] [address] Senthil Menchaca CBC AUTO DIFFon 01-20-2022 BASO # 0.1 103/ul Normal 0.0-0.1 [facility] Comment on above: Performed By: #### C BC ####[facility] [address] [address]DrTonya Menchaca Basophils/100 WBC (Bld) 0.7 % Normal 0.2-2.0 [facility] Comment on above: Performed By: #### C BC ####[facility] [address] [address]DrTonya Menchaca EO # 0.4 103/ul Normal 0.0-0.7 [facility] Comment on above: Performed By: #### C BC ####[facility] [address] [address]DrTonya Menchaca Eosinophils/100 WBC (Bld) 5.2 % Normal 0.9-7.0 [facility] Comment on above: Performed By: #### C BC ####[facility] [address] [address]DrTonya Menchaca Erythrocyte distribution width (RBC) [Ratio] 14.9 % Normal 11.0-15.0 [facility] Comment on above: Performed By: #### C BC ####[facility] [address] [address]DrTonya Menchaca Hematocrit (Bld) [Volume fraction] 42.0 % Normal 36.0-48.0 [facility] Comment on above: Performed By: #### C BC ####[facility] [address] [address]DrTonya Menchaca Hemoglobin (Bld) [Mass/Vol] 13.8 g/dL Normal 12.0-16.0 [facility] Comment on above: Performed By: #### C BC ####[facility] [address] [id number]. Senthil Menchaca IG # 0.02 10e3/ul Normal 0.00-0.03 [facility] Comment on above: Performed By: #### C BC ####[facility] [address] [phone]. Senthil Menchaca IG % 0.2 % Normal 0.0-0.5 [facility] Comment on above: Performed By: #### C BC ####[facility] [address] [address]Dr. Senthil Menchaca LYMPH # 2.3 103/ul Normal 1.2-3.8 [facility] Comment on above: Performed By: #### C BC ####[facility] [address] [address]Dr. Senthil Menchaca Lymphocytes/100 WBC (Bld) 26.6 % Normal 20.5-60.0 [facility] Comment on above: Performed By: #### C BC ####[facility] [address] [address]Dr. Naomimikel Menchaca MANUAL DIFF REQ NO Normal [facility] Comment on above: Performed By: #### C BC ####[facility] [address] [address]Dr. Senthil Menchaca MCH (RBC) [Entitic mass] 30.9 pg Normal 26.7-34.0 [facility] Comment on above: Performed By: #### C BC ####[facility] [address] [address]Dr. Senthil Menchaca MCHC (RBC) [Mass/Vol] 32.9 g/dL Normal 29.9-35.2 [facility] Comment on above: Performed By: #### C BC ####[facility] [address] [address]Dr. Senthil Nikolai MCV (RBC) [Entitic vol] 94.0 fL Normal 81.0-99.0 [facility] Comment on above: Performed By: #### C BC ####[facility] [address] [phone]. Senthil Menchaca MONO # 1.0 103/ul Critically high 0.3-0.8 [facility] Comment on above: Performed By: #### C BC ####[facility] [address] [phone]. Senthil Menchaca Monocytes/100 WBC (Bld) 11.6 % Normal 1.7-12.0 [facility] Comment on above: Performed By: #### C BC ####[facility] [address] [phone]. Senthil Menchaca NEUT # 4.8 103/ul Normal 1.4-6.5 [facility] Comment on above: Performed By: #### C BC ####[facility] [address] [phone]. Senthil Menchaca Neutrophils/100 WBC (Bld) 55.7 % Normal 43.0-75.0 [facility] Comment on above: Performed By: #### C BC ####[facility] [address] [phone]. Senthil Menchaca Platelet mean volume (Bld) [Entitic vol] 9.4 fL Critically low 9.5-13.5 [facility] Comment on above: Performed By: #### C BC ####[facility] [address] [phone]. Senthil Menchaca PLT 250 103/ul Normal 150-450 [facility] Comment on above: Performed By: #### C BC ####[facility] [address] [phone]. Senthil Menchaca RBC 4.47 106/ul Normal 4.20-5.40 [facility] Comment on above: Performed By: #### C BC ####[facility] [address] [phone]. Senthil Menchaca WBC 8.5 103/ul Normal 4.0-11.0 [facility] Comment on above: Performed By: #### C BC ####[facility] [address] [phone]. Senthil Menchaca LIPASEon 01-20-2022 Lipase [Catalytic activity/Vol] 52.0 U/L Critically low 73.0-393.0 [facility] Comment on above: Performed By: #### A MY, LIPA, CMP ####[facility] [address] [address]Dr. Senthil Menchaca PROF 14(COMP METB)on 022 Albumin [Mass/Vol] 3.8 g/dL Normal 3.4-5.0 [facility] Comment on above: Performed By: #### A MY, LIPA, CMP ####[facility] [address] [address]Dr. Senthil Menchaca Albumin/Globulin [Mass ratio] 1.1 {ratio} Normal [facility] Comment on above: Performed By: #### A MY, LIPA, CMP ####[facility] [address] [place], [place] [address]Dr. Senthil Menchaca ALP [Catalytic activity/Vol] 60 U/L Normal 46-116 [facility] Comment on above: Performed By: #### A MY, LIPA, CMP ####[facility] [address] [address]Dr. Senthil Menchaca ALT [Catalytic activity/Vol] 33 U/L Normal 14-59 [facility] Comment on above: Performed By: #### A MY, LIPA, CMP ####[facility] [address] [address]Dr. Senthil Menchaca Anion gap [Moles/Vol] 12.6 mmol/L Normal [facility] Comment on above: Performed By: #### A MY, LIPA, CMP ####[facility] [address] [address]Dr. Senthil Menchaca AST [Catalytic activity/Vol] 12 U/L Critically low 15-37 [facility] Comment on above: Performed By: #### A MY, LIPA, CMP ####[facility] [address] [address]Dr. Senthil Menchaca Bilirubin [Mass/Vol] 0.2 mg/dL Normal 0.2-1.0 [facility] Comment on above: Performed By: #### A LAZARO GUEVARA, CMP ####[facility] [address] [address]Dr. Senthil Menchaca Calcium [Mass/Vol] 8.4 mg/dL Critically low 8.5-10.1 [facility] Comment on above: Performed By: #### A TAMEKA LIPA, CMP ####[facility] [address] [place], [place] [address]Dr. Senthil Menchaca Chloride [Moles/Vol] 104 mmol/L Normal 98-107 [facility] Comment on above: Performed By: #### A GENESIS GUEVARAA, CMP ####[facility] [address] [place], [place] [address]Dr. Senthil Menchaca CO2 [Moles/Vol] 29.1 mmol/L Normal 21.0-32.0 [facility] Comment on above: Performed By: #### A TAMEKA LIPA, CMP ####[facility] [address] [place], [place] [address]Dr. Senthil Menchaca Creatinine [Mass/Vol] 0.89 mg/dL Normal 0.55-1.02 [facility] Comment on above: Performed By: #### A LAZARO GUEVARA, CMP ####[facility] [address] [place], [place] [address]Dr. Senthil Menchaca EGFR-AF BAHAMIAN >60 Normal >=60 [facility] Comment on above: Performed By: #### A TAMEKA LIPA, CMP ####[facility] [address] [place], [place] [address]Dr. Senthil Menchaca EGFR-NON AF [place]AH[place]IAN >60 Normal >=60 [facility] Comment on above: Performed By: #### A TAEMKA LIPA, CMP ####[facility] [address] [place], [place] [address]Dr. Senthil Menchaca Globulin (S) [Mass/Vol] 3.4 g/dL Normal [facility] Comment on above: Performed By: #### A TAMEKA LIPA, CMP ####[facility] [address] [phone]. Senthil Menchaca Glucose [Mass/Vol] 81 mg/dL Normal 74-106 [facility] Comment on above: Performed By: #### A MY LIPA, CMP ####[facility] [address] [phone]. Senthil Menchaca Potassium [Moles/Vol] 3.7 mmol/L Normal 3.5-5.1 [facility] Comment on above: Performed By: #### A MY LIPA, CMP ####[facility] [address] [phone]. Senthil Menchaca Protein [Mass/Vol] 7.2 g/dL Normal 6.4-8.2 [facility] Comment on above: Performed By: #### A MY LIPA, CMP ####[facility] [address] [address]Dr. Senthil Menchaca Sodium [Moles/Vol] 142 mmol/L Normal 136-145 [facility] Comment on above: Performed By: #### A MY LIPA, CMP ####[facility] [address] [phone]. Senthil Menchaca Urea nitrogen [Mass/Vol] 12.0 mg/dL Normal 7.0-18.0 [facility] Comment on above: Performed By: #### A MY LIPA, CMP ####[facility] [address] [address]Dr. Senthil Menchaca Urea nitrogen/Creatinine [Mass ratio] 13.5 mg/mg Normal [facility] Comment on above: Performed By: #### A MY LIPA, CMP ####[facility] [address] [address]Dr. Senthil Menchaca US SINGLE QUAD RT UPPERon US [...] KIRK SHANNON Date: 2022-01-20 08:50 Normal [facility] ER URINE PROFILEon 2 Bilirubin Ql (U) Negative Normal NEGATIVE [facility] Comment on above: Performed By: #### E RUR, PREGU #### [facility] [address] [place] [address] Dr. Senthil Menchaca Clarity (U) CLEAR Normal CLEAR [facility] Comment on above: Performed By: #### E RUR, PREGU #### [facility] [address] [place] [address] Dr. Senthil Menchaca Color (U) LT. YELLOW Normal YELLOW [facility] Comment on above: Performed By: #### E RUR, PREGU #### [facility] [address] [place] [address] Dr. Senthil Menchaca ERUAHD A micrscopic examina tion will be performed if indicated. Normal [facility] Comment on above: Performed By: #### E RUR, PREGU #### [facility] [address] [place] [address] Dr. Senthil Menchaca Glucose Ql (U) Negative Normal NEGATIVE [facility] Comment on above: Performed By: #### E RUR, PREGU #### [facility] [address] [place] [address] Dr. Senthil Menchaca Hemoglobin Ql (U) Negative Normal NEGATIVE [facility] Comment on above: Performed By: #### E RUR, PREGU #### [facility] [address] [place] [address] Dr. Senthil Menchaca Ketones Ql (U) Negative Normal NEGATIVE [facility] Comment on above: Performed By: #### E RUR, PREGU #### [facility] [address] [place] [address] Dr. Senthil Menchaca LEUKOCYTES Negative Normal NEGATIVE [facility] Comment on above: Performed By: #### E RUR, PREGU #### [facility] [address] [place] [address] Dr. Senthil Menchaca Nitrite Ql (U) Negative Normal NEGATIVE [facility] Comment on above: Performed By: #### E RUR, PREGU #### [facility] [address] [place] [address] Dr. Senthil Menchaca pH (U) 6.0 [pH] Normal 5-9 [facility] Comment on above: Performed By: #### E RUR, PREGU #### [facility] [address] [place] [address] Dr. Senthil Menchaca SPEC GRAVITY 1.025 Normal 1.005-<=1. 025 [facility] Comment on above: Performed By: #### E RUR, PREGU #### [facility] [address] [place] [address] Dr. Senthil Menchaca UA PROTEIN Negative Normal NEGATIVE/ TRACE [facility] Comment on above: Performed By: #### E RUR, PREGU #### [facility] [address] [place] [address] Dr. Senthil Menchaca UR MICRO IND NOT INDICATED Normal [facility] Comment on above: Performed By: #### E RUR, PREGU #### [facility] [address] [place] [address] Dr. Senthil Menchaca Urobilinogen Qn (U) 0.2 {Sherley'U}/dL Normal 0.2 - 1. 0 [facility] Comment on above: Performed By: #### E RUR, PREGU #### [facility] [address] [place] [address] Dr. Senthil Menchaca URon 01-19-2022 , QUAL Negative Normal NEGATIVE [facility] Comment on above: Performed By: #### E IRIS MCCLELLAND #### [facility] [address] [address] [address] Senthil VALDEZ GASTRIC EMPTYINGon 2021 Gastric emptying is within normal limits. [facility] EXAMINATION: NUCLEAR MEDICINE GASTRIC EMPTYING STUDY [...] retention, hiatal hernia or reflux was observed. [facility] Rodrigue Galo MD - 12/23/2021 EXAMINATION: [...] IMPRESSION: Gastric emptying is within normal limits. JEEVAN GAMBOA Fetch MD Work Phone: [place] GASTRIC EMPTYINGOrdered B y: Rodrigue Galo on 12-23-2021 JEEVAN GAMBOA SingspielSurendra [employer] Work Phone: [place] GASTRIC EMPTYINGon 2021 Radiology Study observation (narrative) JEEVAN CORNELIUS SingspielSurendra [employer] Work Phone: Laboratory - Chemistry and C hemistry - challengeOrdered By: Srinivasa Jhaveri on 12-11-2021 Ketones Ql (U) Negative (NEG ) [facility] Work Phone: Comment on above: Note: Responsible Ob server engineer: MAGALI YBARRA ([id number]) Laboratory - Specimen inform ationOrdered By: Srinivasa Jhaveri on 12-11-2021 Clarity (U) Clear (CLEAR ) [facility] Work Phone: Comment on above: Note: Responsible Ob server engineer: MAGALI YBARRA ([id number]) Color (U) Yellow (YEL ) [facility] Work Phone: Comment on above: Note: Responsible Ob server engineer: MAGALI YBARRA ([id number]) Laboratory - UrinalysisOrder ed By: Srinivasa Jhaveri on 12-11-2021 Epithelial cells LM Ql (Urine sed) 2 TO 5 /HPF (0-5 ) [facility] Work Phone: Comment on above: Note: Responsible Ob server engineer: MAGALI [id number]) Leukocyte esterase Test strip Ql (U) SMALL Abnormal (NEG ) [facility] Work Phone: Comment on above: Note: Responsible Ob server engineer: MAGALI YBARRA ([id number]) No Panel InformationOrdered By: Srinivasa Jhaveri on 12-11-2021 Bilirubin, SemiQt,Ur Negative (NEG ) [facility] Work Phone: Comment on above: Note: Responsible Ob server engineer: MAGALI YBARRA ([id number]) Blood, Urine Negative (NEG ) [facility] Work Phone: Comment on above: Note: Responsible Ob server engineer: MAGALI YBARRA ([id number]) Casts 0 TO 2 HYALINE /LPF (0-8 ) [facility] Work Phone: Comment on above: Note: Reference rang e defined for non-centrifuged specimen.Responsible Observer: MAGALI YBARRA ([id number]) Chlamydia Probe, Ur Negative (NEG ) [facility] Work Phone: Comment on [...] CFORTYEIGH AUTOFILE (3030) Glucose,Semi-qnt,Ur Negative (NEG ) [facility] Work Phone: Comment on above: Note: Responsible Ob server engineer: MAGALI YBARRA ([id number]) Gonorrhea Probe, Ur Negative (NEG ) [facility] Work Phone: Comment on [...] CFORTYEIGH AUTOFILE (3030) Nitrite,Ur Negative (NEG ) [facility] Work Phone: Comment on above: Note: Responsible Ob server engineer: MAGALI YBARRA ([id number]) PH,Ur 8.5 High (5.0-8.0 ) [facility] Work Phone: Comment on above: Note: Responsible Ob server engineer: MAGALI YBARRA ([id number]) Protein, Semi-qnt,Ur Negative (NEG ) [facility] Work Phone: Comment on above: Note: Responsible Ob server engineer: MAGALI YBARRA ([id number]) Reported Physicians See Note [facility] Work Phone: Comment on above: Note: Reported Physi cians:Ordering: Srinivasa JhaveriAttending: Cathryn JhaveriieReferring: Srinivasa Jhaveri Source: .URINE [facility] Work Phone: Comment on above: Note: Responsible Ob server engineer: SHERYLZachery WEISS ([id number]) Spec. [place],Ur 1.011 (1.005-1.0 30 ) [facility] Work Phone: Comment on above: Note: Responsible Ob server engineer: MAGALI YBARRA ([id number]) Trich Vag, Molecular Positive Abnormal (NEG ) [facility] Work Phone: Comment on above: [...] RBC's 2 TO 5 /HPF (0-4 ) [facility] Work Phone: Comment on above: Note: Reference rang e defined for non-centrifuged specimen.Responsible Observer: MAGALI YBARRA ([id number]) Urine WBC's None /HPF (0-5 ) [facility] Work Phone: Comment on above: Note: Responsible Ob server engineer: MAGALI YBARRA ([id number]) Urobilinogen,Ur Normal (NORM ) [facility] Work Phone: Comment on above: Note: Responsible Ob server engineer: MAGALI YBARRA ([id number]) Clostridium Difficile Toxin/ Antigenon 12-08-2021 C DIFF AG + TOXIN INDETERMINATE: Refle x testing to molecular method Abnormal NEGATIVE [facility] Interpretation and review of laboratory results Abnormal [facility] Specimen Description .FECES [facility] CBC with Auto Differentialon 11-12-2021 Absolute Eos # 0.13 [facility] Absolute Immature Granulocyte [facility] Absolute Lymph # 1.19 [facility] [facility] URS [facility] Absolute Scurry # 0.61 [facility] RS [facility] Basophils (Bld) [#/Vol] 0.06 10*3/uL [facility] Basophils/100 WBC (Bld) 1 % 0 - 2 % B ON [facility] Eosinophils/100 WBC (Bld) 2 % 1 - 4 % [facility] Hematocrit (Bld) [Volume fraction] 45.4 % 36.3 - 47.1 % [facility] Hemoglobin (Bld) [Mass/Vol] 15.0 g/dL 11.9 - 15.1 g/dL [facility] Immature granulocytes/100 WBC (Bld) 0 % 0 [facility] Interpretation and review of laboratory results Abnormal [facility] Lymphocytes/100 WBC (Bld) 18 % Low 24 - 43 % [facility] MCH (RBC) [Entitic mass] 30.9 pg 25.2 - 33.5 pg [facility] MCHC (RBC) [Mass/Vol] 33.0 g/dL 28.4 - 34.8 g/dL [facility] MCV (RBC) [Entitic vol] 93.6 fL 82.6 - 102.9 fL [facility] Monocytes/100 WBC (Bld) 9 % 3 - 12 % B ON [facility] NRBC Automated 0.0 0.0 per 100 WBC [facility] Platelet distribution width (Bld) [Ratio] 13.8 % 11.8 - 14.4 % [facility] Platelet mean volume (Bld) [Entitic vol] 9.2 fL 8.1 - 13.5 fL [facility] Platelets (Bld) [#/Vol] 270 10*3/uL [facility] RBC (Bld) [#/Vol] 4.85 10*6/uL 3.95 - 5.11 m/uL [facility] Segmented neutrophils/100 WBC (Bld) 70 % High 36 - 65 % [facility] Segs Absolute 4.52 [facility] WBC (Bld) [#/Vol] 6.5 10*3/uL [facility] CMPon 11-12-2021 Albumin [Mass/Vol] 5.1 g/dL 3.5 - 5.2 g/dL [facility] Albumin/Globulin [Mass ratio] 2.0 {ratio} 1 - 2.5 [facility] ALP (Bld) [Catalytic activity/Vol] 57 U/L 35 - 104 U/L [facility] ALT [Catalytic activity/Vol] 12 U/L 5 - 33 U/L [facility] Anion gap [Moles/Vol] 10 mmol/L 9 - 17 mmol/L [facility] [facility] AST [Catalytic activity/Vol] 13 U/L NINF - 32 U/L [facility] Bilirubin [Mass/Vol] 0.17 mg/dL Low 0.3 - 1 .2 mg/dL [facility] Calcium [Mass/Vol] 9.6 mg/dL 8.6 - 10. 4 mg/dL [facility] Chloride [Moles/Vol] 101 mmol/L 98 - 10 7 mmol/L [facility] CO2 [Moles/Vol] 28 mmol/L 20 - 31 mmol/L [facility] Creatinine [Mass/Vol] 0.8 mg/dL 0.5 - 0.9 mg/dL [facility] Free PSA/Total PSA [Mass fraction] 7.7 g/dL 6.4 - 8.3 g/dL [facility] GFR >60 60 - PI NF mL/min [facility] GFR Non- >60 60 - PINF mL/min [facility] Glucose [Mass/Vol] 97 mg/dL 70 - 99 mg/dL [facility] Interpretation and review of laboratory results Abnormal [facility] Potassium [Moles/Vol] 3.8 mmol/L 3.7 - 5.3 mmol/L [facility] Sodium [Moles/Vol] 139 mmol/L 135 - 144 mmol/L [facility] Urea nitrogen (BldV) [Mass/Vol] 7 mg/dL 6 - 20 mg/dL [facility] Urea nitrogen/Creatinine (Bld) [Mass ratio] 9 9 - 20 [facility] COVID-19, Rapidon 11-12-2021 SARS-CoV-2 (COVID-19) RNA EVELIA+probe Ql (Unsp spec) Not detected Not Detected [facility] Comment on above: Rapid NAAT: The specimen [...] management decisions. Fact sheet for Healthcare Providers: https://www.fda.gov/media/406130/download Fact sheet for Patients: https://www.fda.gov/media/142552/download Methodology: Isothermal Nucleic Acid Amplification Specimen Description .NASOPHARYNGEAL SWAB [facility] CT ABDOMEN PELVIS W IV CONTR AST [...] COMPARISON: 06/06/2021 HISTORY: ORDERING SYSTEM PROVIDED HISTORY: [place] pain TECHNOLOGIST PROVIDED HISTORY: [place] pain Decision Support Exception - unselect if [...] COMPARISON: 06/06/2021 HISTORY: ORDERING SYSTEM PROVIDED HISTORY: [place] pain TECHNOLOGIST PROVIDED HISTORY: [place] pain Decision Support Exception - unselect if [...] No acute abnormality IMPRESSION: No acute abnormality [email or web address] Phone: Radiology Study observation (narrative) [employer] Phone: CT ABDOMEN PELVIS W IV CONTR AST Additional Contrast? NoneOrdered By: Torres Rivera on 11-12-2021 [employer] Work Phone: HCG Qualitative, Serumon hCG Qual Negative NEGATIVE [employer] Comment on above: Specimens with hCG l evels near the threshold of the test (25 mIU/mL) may give a negative or indeterminate result. In such cases, another test should be performed with a new specimen in 48-72 hours. If early is suspected clinically in this setting, correlation with quantitative serum b-hCG level is suggested. [employer] has confirmed the use of plasma for this test. This has not been cleared or approved by the U.S. Food and Drug Administration. The FDA has determined that such clearance is not necessary. [facility] Laboratory - Chemistry and C hemistry - challengeon 11-12-2021 GFR/1.73 sq M.predicted MDRD (S/P/Bld) [Vol rate/Area] [facility] Comment on above: Average GFR for 30-3 9 years old: 107 mL/min/1.73sq m Chronic Kidney Disease: <60 mL/min/1.73sq m Kidney failure: <15 mL/min/1.73sq m eGFR calculated using average adult body mass. Additional eGFR calculator available at: http://www.eDiets.com/multiple_crcl_2012.htm Stage 1: Some kidney damage normal GFR Stage 2: Mild kidney damage GFR 60-89 Stage 3: Moderate kidney damage GFR 30-59 Stage 4: Severe kidney damage GFR 15-29 Stage 5: Severe kidney damage GFR <15 ESRD - chronic treatment by dialysis or transplant Urinalysis with Microscopico n 11-12-2021 - [employer] [facility] Bacteria, UA TRACE Abnormal None [facility] Bilirubin Urine Negative NEGATIVE [facility] [employer] [facility] Color, UA Yellow Yellow [facility] Epithelial Cells UA 0 TO 2 [facility] S [employer] [facility] Glucose, Ur Negative NEGATIVE [facility] Interpretation and review of laboratory results Abnormal [facility] Ketones Ql (U) Negative NEGATIVE [facility] Leukocyte esterase Test strip Ql (U) TRACE Abnormal NEGATIVE [facility] Mucus, UA TRACE Abnormal None [facility] Nitrite, Urine Negative NEGATIVE [facility] [place] [facility] pH, UA 7.0 5 - 9 [facility] [place] SECW[facility]DO [facility]ITALDorm[facility] Protein, UA Negative NEGATIVE [employer] [facility] RBC, UA None [facility] [place] SECSyrenaica [facility] Specific [place], UA Low 1.01 - 1.02 [employer] SECSyrenaica [facility] Turbidity UA Clear Clear [facility] SECSyrenaica [facility] Urine Hgb Negative NEGATIVE [facility] [place] SEC[facility] Urobilinogen, Urine Normal Normal [facility] [place] S [employer] [facility] WBC, UA 2 TO 5 [facility] [place] [facility] SECSyrenaica [facility] , Urineon 2 Beta HCG ( test) Ql (U) Negative NEGATIVE [facility] Comment on above: Specimens with hCG l evels near the threshold of the test (25 mIU/mL) may give a negative or indeterminate result. In such cases, another test should be performed with a new specimen in 48-72 hours. If early is suspected clinically in this setting, correlation with quantitative serum b-hCG level is suggested. [employer] has confirmed the use of plasma for this test. This has not been cleared or approved by the U.S. Food and Drug Administration. The FDA has determined that such clearance is not necessary. [facility] Urinalysis with Microscopico n 09-01-2021 - [facility] Bacteria, UA TRACE Abnormal None [facility] Bilirubin Urine Negative NEGATIVE [facility] Color, UA Yellow Yellow [facility] Epithelial Cells UA 5 TO 10 [facility] Glucose, Ur Negative NEGATIVE [facility] Interpretation and review of laboratory results Abnormal [facility] Ketones Ql (U) Negative NEGATIVE [facility] Leukocyte esterase Test strip Ql (U) Negative NEGATIVE [facility] Nitrite, Urine Negative NEGATIVE [facility] pH, UA 7.0 [facility] Protein, UA Negative NEGATIVE [facility] RBC, UA 0 TO 2 [facility] Specific [place], UA 1.015 [facility] Turbidity UA Clear Clear [facility] Urine Hgb Negative NEGATIVE [facility] Urobilinogen, Urine Normal Normal [facility] WBC, UA 0 TO 2 [facility] CBC with Auto Differentialon 08-11-2021 Absolute Eos # 0.19 [facility] th Absolute Immature Granulocyte 0.05 [facility] Absolute Lymph # 1.42 [facility] alth Absolute Scurry # 0.84 [facility] lth Basophils (Bld) [#/Vol] 0.06 10*3/uL [facility] Basophils/100 WBC (Bld) 0 % 0 - 2 % [facility] Eosinophils/100 WBC (Bld) 1 % 1 - 4 % [facility] Hematocrit (Bld) [Volume fraction] 42.2 % 36.3 - 47.1 % [facility] Hemoglobin.gastrointest inal spec 1 Ql (Stl) 13.7 g/dL 11.9 - 15.1 g/dL [facility] Immature granulocytes/100 WBC (Bld) 0 % 0 [facility] Interpretation and review of laboratory results Abnormal [facility] Lymphocytes/100 WBC (Bld) 11 % Low 24 - 43 % [facility] MCH (RBC) [Entitic mass] 30.9 pg 25.2 - 33.5 pg [facility] MCHC (RBC) [Mass/Vol] 32.5 g/dL 28.4 - 34.8 g/dL [facility] MCV (RBC) [Entitic vol] 95.3 fL 82.6 - 102.9 fL [facility] Monocytes/100 WBC (Bld) 6 % 3 - 12 % M [facility] NRBC Automated 0.0 0.0 per 100 WBC [facility] Platelet distribution width (Bld) [Ratio] 13.4 % 11.8 - 14.4 % [facility] Platelet mean volume (Bld) [Entitic vol] 9.2 fL 8.1 - 13.5 fL [facility] Platelets (Bld) [#/Vol] 298 10*3/uL [facility] RBC (Bld) [#/Vol] 4.43 10*6/uL 3.95 - 5.11 m/uL [facility] Segmented neutrophils/100 WBC (Bld) 82 % High 36 - 65 % [facility] Segs Absolute 10.86 High [facility] WBC (Bld) [#/Vol] 13.4 10*3/uL High [facility] COVID-19, Rapidon 08-11-2021 SARS-CoV-2 (COVID-19) RNA EVELIA+probe Ql (Unsp spec) Not detected Not Detected [facility] Comment on above: Rapid NAAT: The specimen [...] management decisions. Fact sheet for Healthcare Providers: https://www.fda.gov/media/477431/download Fact sheet for Patients: https://www.fda.gov/media/797393/download Methodology: Isothermal Nucleic Acid Amplification Specimen Description .NASOPHARYNGEAL SWAB [facility] Comprehensive Metabolic Pane ayush 08-11-2021 Albumin [Mass/Vol] 4.2 g/dL 3.5 - 5.2 g/dL [facility] Albumin/Globulin [Mass ratio] 1.9 {ratio} [facility] ALP (Bld) [Catalytic activity/Vol] 50 U/L 35 - 104 U/L [facility] ALT [Catalytic activity/Vol] 13 U/L 5 - 33 U/L [facility] Anion gap [Moles/Vol] 7 mmol/L Low 9 - 17 mmol/L [facility] AST [Catalytic activity/Vol] 16 U/L <32 [facility] Bilirubin [Mass/Vol] 0.38 mg/dL 0.3 - 1 .2 mg/dL [facility] Calcium [Mass/Vol] 8.8 mg/dL 8.6 - 10. 4 mg/dL [facility] Chloride [Moles/Vol] 104 mmol/L 98 - 10 7 mmol/L [facility] CO2 [Moles/Vol] 27 mmol/L 20 - 31 mmol/L [facility] Creatinine [Mass/Vol] 0.72 mg/dL 0.50 - 0.90 mg/dL [facility] Free PSA/Total PSA [Mass fraction] 6.4 g/dL 6.4 - 8.3 g/dL [facility] GFR >60 >60 mL/min [facility] GFR Non- >60 >60 mL/min [facility] Glucose [Mass/Vol] 102 mg/dL High 70 - 99 mg/dL [facility] Interpretation and review of laboratory results Abnormal [facility] Potassium [Moles/Vol] 3.6 mmol/L Low 3.7 - 5.3 mmol/L [facility] Sodium [Moles/Vol] 138 mmol/L 135 - 144 mmol/L [facility] Urea nitrogen (BldV) [Mass/Vol] 6 mg/dL 6 - 20 mg/dL [facility] Urea nitrogen/Creatinine (Bld) [Mass ratio] 8 Low [facility] HCG Qualitative, Serumon hCG Qual Negative NEGATIVE [facility] Comment on above: Specimens with hCG l evels near the threshold of the test (25 mIU/mL) may give a negative or indeterminate result. In such cases, another test should be performed with a new specimen in 48-72 hours. If early is suspected clinically in this setting, correlation with quantitative serum b-hCG level is suggested. [facility] Center[facility] Services Corporation has confirmed the use of plasma for this test. This has not been cleared or approved by the U.S. Food and Drug Administration. The FDA has determined that such clearance is not necessary. [facility] Laboratory - Chemistry and C hemistry - challengeon 08-11-2021 GFR/1.73 sq M.predicted MDRD (S/P/Bld) [Vol rate/Area] [facility] Comment on above: Average GFR for 30-3 9 years old: 107 mL/min/1.73sq m Chronic Kidney Disease: <60 mL/min/1.73sq m Kidney failure: <15 mL/min/1.73sq m eGFR calculated using average adult body mass. Additional eGFR calculator available at: http://www.eDiets.com/multiple_crcl_2012.htm Stage 1: Some kidney damage normal GFR Stage 2: Mild kidney damage GFR 60-89 Stage 3: Moderate kidney damage GFR 30-59 Stage 4: Severe kidney damage GFR 15-29 Stage 5: Severe kidney damage GFR <15 ESRD - chronic treatment by dialysis or transplant Lactic Acidon 08-11-2021 Lactate [Moles/Vol] 1.1 mmol/L 0.5 - 2. 2 mmol/L [facility] Lipaseon 08-11-2021 Lipase [Catalytic activity/Vol] 13 U/L 13 - 60 U/L [facility] Microscopic Urinalysison - [facility] Bacteria, UA TRACE Abnormal None [facility] Epithelial Cells UA 0 TO 2 [facility] Interpretation and review of laboratory results Abnormal [facility] RBC, UA 0 TO 2 [facility] WBC, UA 0 TO 2 [facility] No Panel Informationon 08-11 [facility] Rapid influenza A/B antigens on 08-11-2021 Flu A Antigen Negative NEGATIVE [facility] Comment on above: for Influenza A Anti gen Flu B Antigen Negative NEGATIVE [facility] h Comment on above: for Influenza B Anti gen. [facility] TSH with Reflexon 08-11-2021 TSH Qn 0.62 m[IU]/L [facility] Urinalysis with Reflex to Cu ltureon 08-11-2021 Bilirubin Urine Negative NEGATIVE [facility] Color, UA Yellow Yellow [facility] Glucose, Ur Negative NEGATIVE [facility] Interpretation and review of laboratory results Abnormal [facility] Ketones Ql (U) Negative NEGATIVE [facility] Leukocyte esterase Test strip Ql (U) Negative NEGATIVE [facility] Nitrite, Urine Negative NEGATIVE [facility] pH, UA 7.0 [facility] Protein, UA Negative NEGATIVE [facility] Specific [place], UA <1.005 Low [facility] Turbidity UA Clear Clear [facility] Urine Hgb Negative NEGATIVE [facility] Urobilinogen, Urine Normal Normal [facility] Laboratory - Chemistry and C hemistry - challengeOrdered By: Traci Dennison on 07-17-2021 Albumin [Mass/Vol] 4.5 g/dL (3.5-5.2 ) [facility] Work Phone: Comment on above: Note: Responsible Ob server engineer: [employer]CE[employer] ([id number]) ALT [Catalytic activity/Vol] 13 U/L (5-33 ) [facility] Work Phone: Comment on above: Note: Responsible Ob server engineer: [employer] ([id number]) Anion gap [Moles/Vol] 11 mmol/L (9-17 ) a [facility] Work Phone: Comment on above: Note: Responsible Ob server engineer: [employer] ([id number]) AST [Catalytic activity/Vol] 16 U/L (<32 ) [facility] Work Phone: Comment on above: Note: Responsible Ob server engineer: [employer] ([id number]) Bilirubin [Mass/Vol] 0.28 mg/dL Low (0.3-1.2 ) [facility] Work Phone: Comment on above: Note: Responsible Ob server engineer: [employer] ([id number]) Calcium [Mass/Vol] 9.2 mg/dL (8.6-10.4 ) [facility] Work Phone: Comment on above: Note: Responsible Ob server engineer: [employer] ([id number]) Chloride [Moles/Vol] 102 mmol/L (98-107 ) [facility] Work Phone: Comment on above: Note: Responsible Ob server engineer: [employer] ([id number]) Cholesterol [Mass/Vol] 129 mg/dL (<200 ) [facility] Work Phone: Comment on above: Note: Cholesterol Gu idelines:<200 [id number] Borderline>240 UndesirableResponsible Observer: [employer] ([id number]) Cholesterol.total/Le sterol in HDL [Mass ratio] 3.4 {ratio} (<5 ) [facility] Work Phone: Comment on above: Note: Responsible Ob server engineer: [employer] ([id number]) CO2 [Moles/Vol] 27 mmol/L (20-31 ) [facility] Work Phone: Comment on above: Note: Responsible Ob server engineer: [employer] ([id number]) Cobalamin (Vitamin B12) [Mass/Vol] 381 pg/mL (232-1245 ) [facility] Work Phone: Comment on above: Note: Responsible Ob server engineer: [employer] ([id number]) Creatinine [Mass/Vol] 0.65 mg/dL (0.50- 0.90 ) [facility] Work Phone: Comment on above: Note: Responsible Ob server engineer: [employer] ([id number]) Glucose [Mass/Vol] 72 mg/dL (70-99 ) [facility] Work Phone: Comment on above: Note: Responsible Ob server engineer: [employer] ([id number]) Magnesium [Mass/Vol] 38 mg/dL Low (>40 ) [facility] Work Phone: Comment on above: Note: HDL Guidelines :<40 [id number] Borderline>59 DesirableResponsible Observer: [employer] ([id number]) Magnesium [Mass/Vol] 76 mg/dL (0-130 ) [facility] Work Phone: Comment on above: Note: LDL Guidelines :<100 [id number] Near to/above [id number] Borderline>159 UndesirableDirect (measured) LDL and calculated LDL are not interchangeable tests.Responsible Observer: [employer] ([id number]) Magnesium [Mass/Vol] 75 mg/dL (<150 ) [facility] Work Phone: Comment on above: Note: Triglyceride G uidelines:<150 [id number] [id number] High>499 Very highBased on AHA Guidelines for fasting triglyceride, January 2012.Responsible Observer: [employer] ([id number]) Potassium [Moles/Vol] 4.5 mmol/L (3.7-5.3 ) [facility] Work Phone: Comment on above: Note: Responsible Ob server engineer: [employer] ([id number]) Protein [Mass/Vol] 7.0 g/dL (6.4-8.3 ) [facility] Work Phone: Comment on above: Note: Responsible Ob server engineer: [employer] ([id number]) Sodium [Moles/Vol] 140 mmol/L (135-144 ) [facility] Work Phone: Comment on above: Note: Responsible Ob server engineer: [employer] ([id number]) Urea nitrogen [Mass/Vol] 7 mg/dL (6-20 ) [facility] Work Phone: Comment on above: Note: Responsible Ob server engineer: [employer] ([id number]) Laboratory - Hematology and Cell countsOrdered By: Traci Dennison on 07-17-2021 Basophils/100 WBC (Bld) 1 % (0-2 ) [facility] Work Phone: Comment on above: Note: Responsible Ob server engineer: XNV [employer]OFILE ([id number]) Eosinophils (Bld) [#/Vol] 0.14 10*3/uL (0.00-0.44 ) [facility] Work Phone: Comment on above: Note: Responsible Ob server engineer: [employer] ([id number]) Eosinophils/100 WBC (Bld) 2 % (1-4 ) [facility] Work Phone: Comment on above: Note: Responsible Ob server engineer: [employer] ([id number]) Erythrocyte distribution width (RBC) [Ratio] 14.5 % High (11.8-14.4 ) [facility] Work Phone: Comment on above: Note: Responsible Ob server engineer: [employer] ([id number]) Hematocrit (Bld) [Volume fraction] 46.3 % (36.3-47.1 ) [facility] Work Phone: Comment on above: Note: Responsible Ob server engineer: [employer] ([id number]) Hemoglobin (Bld) [Mass/Vol] 14.3 g/dL (11.9-15.1 ) [facility] Work Phone: Comment on above: Note: Responsible Ob server engineer: [employer] ([id number]) Immature granulocytes/100 WBC (Bld) 0 % (0 ) [facility] Work Phone: Comment on above: Note: Responsible Ob server engineer: [employer] ([id number]) Lymphocytes (Bld) [#/Vol] 1.65 10*3/uL (1.10-3.70 ) [facility] Work Phone: Comment on above: Note: Responsible Ob server engineer: [employer] ([id number]) Lymphocytes/100 WBC (Bld) 20 % Low (24-43 ) [facility] Work Phone: Comment on above: Note: Responsible Ob server engineer: [employer] ([id number]) MCH (RBC) [Entitic mass] 30.4 pg (25.2-33.5 ) [facility] Work Phone: Comment on above: Note: Responsible Ob server engineer: [employer] ([id number]) MCHC (RBC) [Mass/Vol] 30.9 g/dL (28.4- 34.8 ) [facility] Work Phone: Comment on above: Note: Responsible Ob server engineer: [employer] ([id number]) MCV (RBC) [Entitic vol] 98.3 fL (82. 6-102. 9 ) [facility] Work Phone: Comment on above: Note: Responsible Ob server engineer: [employer] ([id number]) Monocytes (Bld) [#/Vol] 0.55 10*3/uL (0.1 0-1.20 ) [facility] Work Phone: Comment on above: Note: Responsible Ob server engineer: [employer] ([id number]) Monocytes/100 WBC (Bld) 7 % (3-12 ) [facility] Work [facility]: Comment on above: Note: Responsible Ob server engineer: [employer] (3018) Platelet mean volume (Bld) [Entitic vol] 10.2 fL (8.1-13.5 ) [facility] Work Phone: Comment on above: Note: Responsible Ob server engineer: [employer] ([id number]) Platelets (Bld) [#/Vol] 326 10*3/uL (138-453 ) [facility] Work Phone: Comment on above: Note: Responsible Ob server engineer: [employer] ([id number]) RBC (Bld) [#/Vol] 4.71 10*6/uL (3.95-5.11 ) [facility] Work Phone: Comment on above: Note: Responsible Ob server engineer: [employer] ([id number]) RBC morphology finding Nom (Bld) ANISOCYTOSIS PRESENT [facility] Work Phone: Comment on above: Note: Responsible Ob server engineer: [employer] ([id number]) Segmented neutrophils/100 WBC (Bld) 70 % High (36-65 ) [facility] Work Phone: Comment on above: Note: Responsible Ob server engineer: [employer] ([id number]) WBC (Bld) [#/Vol] 8.3 10*3/uL (3.5-11.3 ) [facility] Work Phone: Comment on above: Note: Responsible Ob server engineer: [employer] ([id number]) No Panel InformationOrdered By: Traci Dennison on 07-17-2021 (cont.) See Note [facility] Work Phone: Comment on above: Note: Average GFR fo r 30-39 years old:107 mL/min/1.73sq mChronic Kidney Disease:<60 mL/min/1.73sq mKidney failure:<15 mL/min/1.73sq meGFR calculated using average adult body mass. Additional eGFR calculatoravailable at:http://www.eDiets.com/multiple_crcl_2012.htmResponsible Observer: [employer] (3002) Abs. Basophil 0.07 k/uL (0.00-0.20 ) [facility] Work Phone: Comment on above: Note: Responsible Ob server engineer: [employer] ([id number]) Abs.Imm.Granulocyte 0.03 k/uL (0.00-0. 30 ) [facility] Work Phone: Comment on above: Note: Responsible Ob server engineer: [employer] ([id number]) Abs.Neutrophil (Seg) 5.89 k/uL (1.50-8 .10 ) [facility] Work Phone: Comment on above: Note: Responsible Ob server engineer: [employer] ([id number]) Albumin/Glob Ratio 1.8 (1.0-2.5 ) [facility] Work Phone: Comment on above: Note: Responsible Ob server engineer: [employer] ([id number]) Alkaline Phos 55 U/L (35-104 ) [facility] Work Phone: Comment on above: Note: Responsible Ob server engineer: [employer] ([id number]) Folic Acid 15.6 ng/mL (>4.8 ) [facility] Work Phone: Comment on above: Note: Responsible Ob server engineer: [employer] (3003) GFR, Amer >60 mL/min (>60 ) [facility] Work Phone: Comment on above: Note: Responsible Ob server engineer: [employer] ([id number]) GFR,non Amer >60 mL/min (>60 ) [facility] Work Phone: Comment on above: Note: Responsible Ob server engineer: [employer] ([id number]) NRBC Automated 0.0 per_100_WBC (0.0 ) [facility] Work Phone: Comment on above: Note: Responsible Ob server engineer: XNV [employer] ([id number]) Reported Physicians See Note [facility] Work Phone: Comment on above: Note: Reported Physi cians:Ordering: Felicity Dennisontending: Saeid DennisonaReferring: Traci Dennison Thyroid Stim. Horm. 0.74 uIU/mL (0.30-5. 00 ) [facility] Work Phone: Comment on above: Note: Responsible Ob server engineer: [employer] ([id number]) Vitamin D 25 [place] 9.8 ng/mL Low (>29.9 ) [facility] Work Phone: Comment on above: Note: Reference Rang e:Vitamin D status RangeDeficiency <20 ng/mLMild Deficiency 20-30 ng/mLSufficiency 30-100 ng/mLToxicity >100 ng/mLResponsible Observer: CEEV [employer] ([id number]) No Panel Informationon 07-03 No fracture, dislocation, or significant degenerative change. [facility] RIS CONSOLIDATED EXAMINATION: THREE XRAY VIEWS OF THE RIGHT SHOULDER; TWO XRAY VIEWS OF THE RIGHT CLAVICLE 07/03/2021 10:34 am COMPARISON: None. HISTORY: ORDERING SYSTEM PROVIDED HISTORY: pain TECHNOLOGIST PROVIDED HISTORY: pain FINDINGS: No fracture or dislocation. The glenohumeral and acromioclavicular joints are preserved. [facility] Amrit Aguilar P - 07/03/2021 EXAMINATION: THREE XRAY VIEWS OF THE RIGHT SHOULDER; TWO XRAY VIEWS OF THE RIGHT CLAVICLE 07/03/2021 10:34 am COMPARISON: None. HISTORY: ORDERING SYSTEM PROVIDED HISTORY: pain TECHNOLOGIST PROVIDED HISTORY: pain FINDINGS: No fracture or dislocation. The glenohumeral and acromioclavicular joints are preserved. IMPRESSION: No fracture, dislocation, or significant degenerative change. [employer] Work Phone: No Panel InformationOrdered By: Amrit Hayes on 07-03-2021 [employer] Work Phone: XR CLAVICLE RIGHTon 07-04-19 Radiology Study observation (narrative) [employer] Work Phone: XR SHOULDER RIGHT (MIN 2 VIE WS)on 07-03-2021 Radiology Study observation (narrative) [employer] Work Phone: CBC with Auto Differentialon 06-06-2021 Absolute Eos # 0.07 [facility] th Absolute Immature Granulocyte 0.04 [facility] [employer] Absolute Lymph # 1.54 [facility] alth Absolute Scurry # 0.88 [facility] [employer] [facility] Basophils (Bld) [#/Vol] 0.06 10*3/uL [employer] Basophils/100 WBC (Bld) 1 % 0 - 2 % [facility] [employer] Eosinophils/100 WBC (Bld) 1 % 1 - 4 % [facility] Hematocrit (Bld) [Volume fraction] 43.0 % 36.3 - 47.1 % [employer] Hemoglobin.gastrointest inal spec 1 Ql (Stl) 14.0 g/dL 11.9 - 15.1 g/dL [employer] Immature granulocytes/100 WBC (Bld) 0 % 0 [facility] Interpretation and review of laboratory results Abnormal [facility] Lymphocytes/100 WBC (Bld) 13 % Low 24 - 43 % [facility] MCH (RBC) [Entitic mass] 30.7 pg 25.2 - 33.5 pg [facility] MCHC (RBC) [Mass/Vol] 32.6 g/dL 28.4 - 34.8 g/dL [facility] MCV (RBC) [Entitic vol] 94.3 fL 82.6 - 102.9 fL [facility] Monocytes/100 WBC (Bld) 7 % 3 - 12 % [facility] NRBC Automated 0.0 0.0 per 100 WBC [facility] Platelet distribution width (Bld) [Ratio] 14.3 % 11.8 - 14.4 % [facility] Platelet mean volume (Bld) [Entitic vol] 9.5 fL 8.1 - 13.5 fL [facility] Platelets (Bld) [#/Vol] 247 10*3/uL [facility] RBC (Bld) [#/Vol] 4.56 10*6/uL 3.95 - 5.11 m/uL [facility] Segmented neutrophils/100 WBC (Bld) 78 % High 36 - 65 % [facility] Segs [facility].44 [facility] (Bld[facility] [#/Vol] 12.0 10*3/uL High [facility] CT ABDOMEN PELVIS W IV CONTR AST [...] PROVIDED HISTORY: ruq pain TECHNOLOGIST PROVIDED HISTORY: q pain Decision Support Exception - unselect if [...] No lymphadenopathy. Bones/Soft Tissues: No osseous abnormality [facility] Amrit Maloney P - 06/06/2021 EXAMINATION: CT [...] IMPRESSION: No acute abdominal or pelvic findings. [employer] Work Phone: Radiology Study observation (narrative) [employer] Phone: CT ABDOMEN PELVIS W IV CONTR AST Additional Contrast? NoneOrdered By: Amrit Hayes on 06-06-2021 [employer] Work Phone: Comprehensive Metabolic Pane l w/ Reflex to MGon 06-06-2021 Albumin [Mass/Vol] 4.5 g/dL 3.5 - 5.2 g/dL [facility] Albumin/Globulin [Mass ratio] 1.7 {ratio} [facility] ALP (Bld) [Catalytic activity/Vol] 53 U/L 35 - 104 U/L [facility] ALT [Catalytic activity/Vol] 14 U/L 5 - 33 U/L [facility] Anion gap [Moles/Vol] 10 mmol/L 9 - 17 mmol/L [facility] AST [Catalytic activity/Vol] 14 U/L <32 [facility] Bilirubin [Mass/Vol] 0.26 mg/dL Low 0.3 - 1 .2 mg/dL [facility] Calcium [Mass/Vol] 9.1 mg/dL 8.6 - 10. 4 mg/dL [facility] Chloride [Moles/Vol] 103 mmol/L 98 - 10 7 mmol/L [facility] CO2 [Moles/Vol] 26 mmol/L 20 - 31 mmol/L [facility] Creatinine [Mass/Vol] 0.73 mg/dL 0.50 - 0.90 mg/dL [facility] Free PSA/Total PSA [Mass fraction] 7.1 g/dL 6.4 - 8.3 g/dL [facility] GFR >60 >60 mL/min [facility] GFR Non- >60 >60 mL/min [facility] Glucose [Mass/Vol] 92 mg/dL 70 - 99 mg/dL [facility] Interpretation and review of laboratory results Abnormal [facility] Potassium [Moles/Vol] 4.1 mmol/L 3.7 - 5.3 mmol/L [facility] Sodium [Moles/Vol] 139 mmol/L 135 - 144 mmol/L [facility] Urea nitrogen (BldV) [Mass/Vol] 7 mg/dL 6 - 20 mg/dL [facility] Urea nitrogen/Creatinine (Bld) [Mass ratio] 10 [facility] Laboratory - Chemistry and C hemistry - challengeon 06-06-2021 GFR/1.73 sq M.predicted MDRD (S/P/Bld) [Vol rate/Area] [employer] Comment on above: Average GFR for 30-3 9 years old: 107 mL/min/1.73sq m Chronic Kidney Disease: <60 mL/min/1.73sq m Kidney failure: <15 mL/min/1.73sq m eGFR calculated using average adult body mass. Additional eGFR calculator available at: http://www.eDiets.com/multiple_crcl_2012.htm Stage 1: Some kidney damage normal GFR Stage 2: Mild kidney damage GFR 60-89 Stage 3: Moderate kidney damage GFR 30-59 Stage 4: Severe kidney damage GFR 15-29 Stage 5: Severe kidney damage GFR <15 ESRD - chronic treatment by dialysis or transplant Lipaseon 06-06-2021 Lipase [Catalytic activity/Vol] 16 U/L 13 - 60 U/L [employer] [facility] Microscopic Urinalysison - [facility] Bacteria, UA 2+ Abnormal None [facility] Epithelial Cells UA 10 TO 20 [facility] Interpretation and review of laboratory results Abnormal [facility] Mucus, UA 2+ Abnormal None [facility] [facility] RBC, UA 0 TO 2 [facility] WBC, UA 0 TO 2 [facility] No Panel Informationon 06-06 [employer] , Urineon Beta HCG ( test) Ql (U) Negative NEGATIVE [employer] [facility] Comment on above: Specimens with hCG l evels near the threshold of the test (25 mIU/mL) may give a negative or indeterminate result. In such cases, another test should be performed with a new specimen in 48-72 hours. If early is suspected clinically in this setting, correlation with quantitative serum b-hCG level is suggested. [employer] has confirmed the use of plasma for this test. This has not been cleared or approved by the U.S. Food and Drug Administration. The FDA has determined that such clearance is not necessary. [employer] [facility] Urinalysison 06-06-2021 Bilirubin Urine Negative NEGATIVE [facility] Color, UA Yellow Yellow [employer] [facility] Glucose, Ur Negative NEGATIVE [employer] [facility] Interpretation and review of laboratory results Abnormal [facility] Ketones Ql (U) TRACE Abnormal NEGATIVE [facility] Leukocyte esterase Test strip Ql (U) Negative NEGATIVE [facility] [facility] Nitrite, Urine Negative NEGATIVE [facility] pH, UA 7.5 [facility] [facility] Protein, UA Negative NEGATIVE [facility] Specific [place], UA 1.020 [facility] Turbidity UA Clear Clear [facility] Urine Hgb Negative NEGATIVE [facility] Urobilinogen, Urine Normal Normal [facility] Laboratory - Microbiology an d Antimicrobial susceptibilityOrdered By: Traci Dennison on 04-29-2021 SARS-CoV-2 (COVID-19) RNA EVELIA+probe Ql (Resp) Not detected (Not Detected ) [facility] Work Phone: Comment on above: Note: This [...] of in vitro diagnostic tests for detection [id number] virus and/or diagnosis of COVID-19 infectionunder section [...] (COVID-19) RNA EVELIA+probe Ql (Unsp spec) Performed [facility] Work Phone: No Panel InformationOrdered By: Traci Dennison on 04-03-2021 Chlamydia Probe, Ur Negative (NEG ) [facility] Work Phone: Comment on [...] alternative nucleic acid target.Responsible Observer: CFORTYEIGH AUTOFILE ([id number]) Gonorrhea Probe, Ur Negative (NEG ) [facility] Work Phone: Comment on above: Note: NEISSERIA [...] by an alternative nucleic acid target.Responsible Observer: CFORTYEScriptRx AUTOFILE ([id number]) Reported Physicians See Note [facility] Work Phone: Comment on above: Note: Reported Physi cians:Ordering: Felicity Dennisontending: Saeid DennisonaReferring: Traci Dennison Source: .[facility] Work Phone: Comment on above: Note: Responsible Ob server engineer: KONSTANTIN SHELTON ([id number]) Trich Vag, Molecular Negative (NEG ) [facility] Work Phone: Comment on above: Note: T. vaginalis D NA not detectedResults should be interpreted in conjunction with other clinical data.This test is intended for medical purposes only and is not valid for theevaluation of suspected sexual abuse or for other forensic purposes.This test has not been evaluated in women or in patients less than 16years of age.Responsible Observer: NADIA MCGUIRE ([id number]) Vaginitis DNA Probe See Note [facility] Work Phone: Comment on above: Note: Specimen Descr iption .VAGINAL SWABSpecial Requests NOT REPORTEDDirect Exam POSITIVE for Gardnerella vaginalis.NEGATIVE for Kayla sp.NEGATIVE for Trichomonas vaginalisMethod of testing is a DNA probe intended for detection and identification ofCandida species, Gardnerella vaginalis, and Trichomonas vaginalis nucleic acidin vaginal fluid specimens from patients with symptoms of vaginitis/vaginosis.Report Status FINAL 1Responsible Observer: KONSTANTIN CAT ([id number]) Basic Metabolic PanelOrdered By: Serenity Will on 02-07-2021 Anion gap [Moles/Vol] 8 mmol/L Low 9 - 17 mmol/L [employer] Phone: Calcium [Mass/Vol] 8.5 mg/dL Low 8.6 - 10. 4 mg/dL [employer] Phone: Chloride [Moles/Vol] 106 mmol/L 98 - 10 7 mmol/L [employer] Phone: CO2 [Moles/Vol] 24 mmol/L 20 - 31 mmol/L [employer] Phone: Creatinine [Mass/Vol] 0.66 mg/dL 0.50 - 0.90 mg/dL [employer] Phone: GFR >60 >60 mL/min [facility] Phone: GFR Non- >60 >60 mL/min [employer] Phone: Glucose [Mass/Vol] 87 mg/dL 70 - 99 mg/dL [employer] Phone: Potassium [Moles/Vol] 4.0 mmol/L 3.7 - 5.3 mmol/L [employer] Phone: Sodium [Moles/Vol] 138 mmol/L 135 - 144 mmol/L [employer] Phone: Urea nitrogen (BldV) [Mass/Vol] 5 mg/dL Low 6 - 20 mg/dL [employer] Phone: Urea nitrogen/Creatinine (Bld) [Mass ratio] 8 Low [employer] Phone: CBCOrdered By: Serenity stevens on 02-07-2021 Hematocrit (Bld) [Volume fraction] 41.9 % 36.3 - 47.1 % [employer] Phone: Hemoglobin.gastrointest inal spec 1 Ql (Stl) 13.6 g/dL 11.9 - 15.1 g/dL [employer] Phone: MCH (RBC) [Entitic mass] 30.1 pg 25.2 - 33.5 pg [employer] Phone: MCHC (RBC) [Mass/Vol] 32.5 g/dL 28.4 - 34.8 g/dL [employer] Phone: MCV (RBC) [Entitic vol] 92.7 fL 82.6 - 102.9 fL [employer] Phone: NRBC Automated 0.0 0.0 per 100 WBC [employer] Phone: Platelet distribution width (Bld) [Ratio] 14.3 % 11.8 - 14.4 % [employer] Phone: Platelet mean volume (Bld) [Entitic vol] 9.3 fL 8.1 - 13.5 fL [employer] Phone: Platelets (Bld) [#/Vol] 217 10*3/uL [employer] Phone: RBC (Bld) [#/Vol] 4.52 10*6/uL 3.95 - 5.11 m/uL [employer] Phone: WBC (Bld) [#/Vol] 10.3 10*3/uL [employer] Phone: [employer] Phone: HCG Qualitative, SerumOrdere d By: Serenity Will on 02-07-2021 hCG Qual Negative NEGATIVE [employer] Phone: Comment on above: Specimens with hCG l evels near the threshold of the test (25 mIU/mL) may give a negative or indeterminate result. In such cases, another test should be performed with a new specimen in 48-72 hours. If early is suspected clinically in this setting, correlation with quantitative serum b-hCG level is suggested. [employer] has confirmed the use of plasma for this test. This has not been cleared or approved by the U.S. Food and Drug Administration. The FDA has determined that such clearance is not necessary. [employer] Phone: Hepatic function panelOrdere d By: Serenity Will on 02-07-2021 Albumin [Mass/Vol] 4.1 g/dL 3.5 - 5.2 g/dL [employer] Phone: Albumin/Globulin [Mass ratio] 1.5 {ratio} [employer] Phone: ALP (Bld) [Catalytic activity/Vol] 48 U/L 35 - 104 U/L [employer] Phone: ALT [Catalytic activity/Vol] 13 U/L 5 - 33 U/L [employer] Phone: AST [Catalytic activity/Vol] 16 U/L <32 [employer] Phone: Bilirubin [Mass/Vol] mg/dL Low 0.3 - 1 .2 mg/dL [employer] Phone: Bilirubin, Indirect CANNOT BE CALCULATED 0.00 - 1.00 mg/dL [employer] Phone: Bilirubin.indirect [Mass/Vol] mg/dL <0.31 mg/dL [employer] Phone: Free PSA/Total PSA [Mass fraction] 6.8 g/dL 6.4 - 8.3 g/dL [employer] Phone: Globulin NOT REPORTED 1.5 - 3.8 g/dL [employer] Phone: Interpretation and review of laboratory results Abnormal [employer] Phone: [employer] Phone: Laboratory - Chemistry and C hemistry - challengeOrdered By: Serenity Will on 02-07-2021 GFR/1.73 sq M.predicted MDRD (S/P/Bld) [Vol rate/Area] [employer] Phone: Comment on above: Average GFR for 30-3 9 years old: 107 mL/min/1.73sq m Chronic Kidney Disease: <60 mL/min/1.73sq m Kidney failure: <15 mL/min/1.73sq m eGFR calculated using average adult body mass. Additional eGFR calculator available at: http://www.eDiets.com/multiple_crcl_2012.htm Stage 1: Some kidney damage normal GFR Stage 2: Mild kidney damage GFR 60-89 Stage 3: Moderate kidney damage GFR 30-59 Stage 4: Severe kidney damage GFR 15-29 Stage 5: Severe kidney damage GFR <15 ESRD - chronic treatment by dialysis or transplant Lactic acid, plasmaOrdered B y: Serenity Will on 02-07-2021 Lactate [Moles/Vol] 0.8 mmol/L 0.5 - 2. 2 mmol/L [employer] Work Phone: Lactic Acid, Whole Blood NOT REPORTED 0.7 - 2.1 mmol/L [employer] Phone: [employer] Work Phone: LipaseOrdered By: Serenity Will on 02-07-2021 Lipase [Catalytic activity/Vol] 11 U/L Low 13 - 60 U/L [employer] Phone: Microscopic UrinalysisOrdere d By: Serenity Will on 02-07-2021 - [employer] Phone: Amorphous, UA NOT REPORTED None [facility] Work Phone: Bacteria, UA NOT REPORTED None [facility] Work Phone: Casts UA NOT REPORTED /LPF [employer] Work Phone: Crystals, UA NOT REPORTED None /HPF [employer] Work Phone: Epithelial Cells UA 5 TO 10 [employer] Work Phone: Mucus, UA NOT REPORTED None [facility] Work Phone: Other Observations UA NOT REPORTED NOT REQ. [facility] Work Phone: RBC, UA 0 TO 2 [facility] Work Phone: Renal Epithelial, UA NOT REPORTED 0 /HPF [facility] Work Phone: Trichomonas, UA NOT REPORTED None [facility] Work Phone: WBC, UA 0 TO 2 [facility] Work Phone: Yeast, UA NOT REPORTED None [facility] Work Phone: [facility] Work Phone: No Panel InformationOrdered By: Serenity Will on 02-07-2021 Interpretation and review of laboratory results Abnormal [facility] Work Phone: [facility] Work Phone: Urinalysis Reflex to Culture Ordered By: Serenity Will on 02-07-2021 Bil[address] U[address] [facility] Work Phone: Color, UA Yellow Yellow [facility] Work Phone: Glucose, Ur Negative NEGATIVE [facility] Work Phone: Ketones Ql (U) Negative NEGATIVE [facility] Work Phone: Leukocyte esterase Test strip Ql (U) Negative NEGATIVE [facility] Work Phone: Nitrite, Urine Negative NEGATIVE [facility] Work Phone: pH, UA 7.0 [facility] Work Phone: Protein, UA Negative NEGATIVE [facility] Work Phone: Specific [place], UA 1.010 [facility] Work Phone: Turbidity UA Clear Clear [facility] Work Phone: Urinalysis Comments NOT REPORTED [facility] Work Phone: Urine Hgb Negative NEGATIVE [facility] [employer] Work Phone: Urobilinogen, Urine Normal Normal [facility] Work Phone: [facility] Work Phone: CBC Auto DifferentialOrdered By: Мария Yee on 02-05-2021 Absolute Eos # 0.07 [facility] th Work Phone: Absolute Immature Granulocyte <0.03 [facility] [employer] Work Phone: Absolute Lymph # 1.75 [facility] Work Phone: Absolute Scurry # 0.49 [facility] Work Phone: Basophils (Bld) [#/Vol] 0.05 10*3/uL [facility] Work Phone: Basophils/100 WBC (Bld) 1 % 0 - 2 % [facility] [employer] Work Phone: Differential Type NOT REPORTED [facility] [employer] Work Phone: Eosinophils/100 WBC (Bld) 1 % 1 - 4 % [facility] [employer] Work Phone: Hematocrit (Bld) [Volume fraction] 42.4 % 36.3 - 47.1 % [facility] [employer] Work Phone: Hemoglobin.gastrointest inal spec 1 Ql (Stl) 13.8 g/dL 11.9 - 15.1 g/dL [facility] Work Phone: Immature granulocytes/100 WBC (Bld) 0 % 0 [facility] Work Phone: Lymphocytes/100 WBC (Bld) 28 % 24 - 43 % [facility] Work Phone: MCH (RBC) [Entitic mass] 30.4 pg 25.2 - 33.5 pg [facility] Work Phone: MCHC (RBC) [Mass/Vol] 32.5 g/dL 28.4 - 34.8 g/dL [employer] Work Phone: MCV (RBC) [Entitic vol] 93.4 fL 82.6 - 102.9 fL [employer] Work Phone: Monocytes/100 WBC (Bld) 8 % 3 - 12 % [facility] Work Phone: NRBC Automated 0.0 0.0 per 100 WBC [employer] Phone: Platelet distribution width (Bld) [Ratio] 14.3 % 11.8 - 14.4 % [facility] Work Phone: Platelet Estimate NOT REPORTED [facility] Phone: Platelet mean volume (Bld) [Entitic vol] 9.6 fL 8.1 - 13.5 fL [employer] Phone: Platelets (Bld) [#/Vol] 229 10*3/uL [employer] Work Phone: RBC (Bld) [#/Vol] 4.54 10*6/uL 3.95 - 5.11 m/uL [employer] Phone: RBC (Bld) [#/Vol] NOT REPORTED [facility] Phone: Segmented neutrophils/100 WBC (Bld) 62 % 36 - 65 % [employer] Phone: Segs Absolute 3.88 [employer] Work Phone: WBC (Bld) [#/Vol] 6.3 10*3/uL [employer] Work Phone: WBC (Bld) [#/Vol] NOT REPORTED [employer] Work Phone: [employer] Work Phone: Comprehensive Metabolic Pane l w/ Reflex to MGOrdered By: Мария Yee on 02-05-2021 Albumin [Mass/Vol] 4.5 g/dL 3.5 - 5.2 g/dL [employer] Phone: Albumin/Globulin [Mass ratio] 1.7 {ratio} [employer] Phone: ALP (Bld) [Catalytic activity/Vol] 53 U/L 35 - 104 U/L [employer] Phone: ALT [Catalytic activity/Vol] 12 U/L 5 - 33 U/L [employer] Phone: Anion gap [Moles/Vol] 12 mmol/L 9 - 17 mmol/L [employer] Phone: AST [Catalytic activity/Vol] 15 U/L <32 [employer] Phone: Bilirubin [Mass/Vol] 0.17 mg/dL Low 0.3 - 1 .2 mg/dL [employer] Phone: Calcium [Mass/Vol] 8.5 mg/dL Low 8.6 - 10. 4 mg/dL [employer] Phone: Chloride [Moles/Vol] 106 mmol/L 98 - 10 7 mmol/L [employer] Phone: CO2 [Moles/Vol] 23 mmol/L 20 - 31 mmol/L [employer] Phone: Creatinine [Mass/Vol] 0.65 mg/dL 0.50 - 0.90 mg/dL [employer] Phone: Free PSA/Total PSA [Mass fraction] 7.2 g/dL 6.4 - 8.3 g/dL [employer] Phone: GFR >60 >60 mL/min [facility] Phone: GFR Non- >60 >60 mL/min [employer] Phone: Glucose [Mass/Vol] 86 mg/dL 70 - 99 mg/dL [employer] Phone: Potassium [Moles/Vol] 3.6 mmol/L Low 3.7 - 5.3 mmol/L [employer] Phone: Sodium [Moles/Vol] 141 mmol/L 135 - 144 mmol/L [employer] Phone: Urea nitrogen (BldV) [Mass/Vol] 7 mg/dL 6 - 20 mg/dL [employer] Phone: Urea nitrogen/Creatinine (Bld) [Mass ratio] 11 [employer] Phone: Laboratory - Chemistry and C hemistry - challengeOrdered By: Мария Yee on 02-05-2021 GFR/1.73 sq M.predicted MDRD (S/P/Bld) [Vol rate/Area] [employer] Phone: Comment on above: Average GFR for 30-3 9 years old: 107 mL/min/1.73sq m Chronic Kidney Disease: <60 mL/min/1.73sq m Kidney failure: <15 mL/min/1.73sq m eGFR calculated using average adult body mass. Additional eGFR calculator available at: http://www.eDiets.com/multiple_crcl_2012.htm Stage 1: Some kidney damage normal GFR Stage 2: Mild kidney damage GFR 60-89 Stage 3: Moderate kidney damage GFR 30-59 Stage 4: Severe kidney damage GFR 15-29 Stage 5: Severe kidney damage GFR <15 ESRD - chronic treatment by dialysis or transplant Lactic AcidOrdered By: Chuck Yee on 02-05-2021 Lactate [Moles/Vol] 0.8 mmol/L 0.5 - 2. 2 mmol/L [employer] Phone: [employer] Phone: LipaseOrdered By: Мария vargas on 02-05-2021 Lipase [Catalytic activity/Vol] 12 U/L Low 13 - 60 U/L [employer] Phone: No Panel InformationOrdered By: Мария Yee on 02-05-2021 Interpretation and review of laboratory results Abnormal [employer] Phone: [employer] Phone: Laboratory - Microbiology an d Antimicrobial susceptibilityOrdered By: Traci Dennison on 01-01-2021 SARS-CoV-2 (COVID-19) RNA EVELIA+probe Ql (Resp) Not detected (Not Detected ) [facility] Work Phone: Comment on above: Note: This [...] of in vitro diagnostic tests for detection [id number] virus and/or diagnosis of COVID-19 infectionunder section [...] (COVID-19) RNA EVELIA+probe Ql (Unsp spec) Performed [facility] Work Phone: No Panel InformationOrdered By: Kalpesh Dillard on 11-16-2020 No acute findings in the right forearm or right wrist. [facility] [employer] Work Phone: EXAMINATION: 2 XRAY VIEWS OF [...] alignment. No obvious acute soft tissue abnormality. [employer] Phone: Thomas, Mhpn Incoming Radiant Results From [employer] - 11/16/2020 11:47 AM EDT EXAMINATION: 2 [...] in the right forearm or right wrist. [employer] Phone: [employer] Work Phone: AmylaseOrdered By: Kirk wilcox on 09-04-2020 Amylase [Catalytic activity/Vol] 48 U/L 28 - 100 U/L [facility] Work Phone: CBC Auto DifferentialOrdered By: Kirk Barlow on 09-04-2020 Absolute Eos # 0.13 [facility] Work Phone: Absolute Immature Granulocyte <0.03 [facility] Work Phone: Absolute Lymph # 1.83 [facility] Work Phone: Absolute Scurry # 0.70 [facility] CenterBrightView Systemseast [facility] Work Phone: Basophils (Bld) [#/Vol] 0.05 10*3/uL [facility] Work Phone: Basophils/100 WBC (Bld) 1 % 0 - 2 % [facility] Work Phone: Differential Type NOT REPORTED [facility] Phone: Eosinophils/100 WBC (Bld) 2 % 1 - 4 % [facility] Phone: Hematocrit (Bld) [Volume fraction] 44.6 % 36.3 - 47.1 % [employer] Phone: Hemoglobin.gastrointest inal spec 1 Ql (Stl) 14.6 g/dL 11.9 - 15.1 g/dL [employer] Phone: Immature granulocytes/100 WBC (Bld) 0 % 0 [employer] Phone: Interpretation and review of laboratory results Abnormal [employer] Phone: Lymphocytes/100 WBC (Bld) 21 % Low 24 - 43 % [employer] Phone: MCH (RBC) [Entitic mass] 30.6 pg 25.2 - 33.5 pg [employer] Phone: MCHC (RBC) [Mass/Vol] 32.7 g/dL 28.4 - 34.8 g/dL [employer] Phone: MCV (RBC) [Entitic vol] 93.5 fL 82.6 - 102.9 fL [employer] Phone: Monocytes/100 WBC (Bld) 8 % 3 - 12 % [employer] Phone: NRBC Automated 0.0 0.0 per 100 WBC [employer] Phone: Platelet distribution width (Bld) [Ratio] 14.1 % 11.8 - 14.4 % [employer] Phone: Platelet Estimate NOT REPORTED [employer] Phone: Platelet mean volume (Bld) [Entitic vol] 9.4 fL 8.1 - 13.5 fL [employer] Phone: Platelets (Bld) [#/Vol] 260 10*3/uL [employer] Phone: RBC (Bld) [#/Vol] 4.77 10*6/uL 3.95 - 5.11 m/uL [employer] Phone: RBC (Bld) [#/Vol] NOT REPORTED [employer] Phone: Segmented neutrophils/100 WBC (Bld) 68 % High 36 - 65 % [employer] Work Phone: Segs Absolute 6.16 [employer] Work Phone: WBC (Bld) [#/Vol] 8.9 10*3/uL [employer] Work Phone: WBC (Bld) [#/Vol] NOT REPORTED [employer] Phone: [employer] Work Phone: Comprehensive Metabolic Pane l w/ Reflex to MGOrdered By: Kirk Barlow on 09-04-2020 Albumin [Mass/Vol] 4.5 g/dL 3.5 - 5.2 g/dL [employer] Phone: Albumin/Globulin [Mass ratio] 1.7 {ratio} [employer] Work Phone: ALP (Bld) [Catalytic activity/Vol] 48 U/L 35 - 104 U/L [employer] Phone: ALT [Catalytic activity/Vol] 14 U/L 5 - 33 U/L [employer] Phone: Anion gap [Moles/Vol] 11 mmol/L 9 - 17 mmol/L [employer] Phone: AST [Catalytic activity/Vol] 14 U/L <32 [employer] Phone: Bilirubin [Mass/Vol] 0.47 mg/dL 0.3 - 1 .2 mg/dL [employer] Phone: Calcium [Mass/Vol] 9.5 mg/dL 8.6 - 10. 4 mg/dL [employer] Phone: Chloride [Moles/Vol] 101 mmol/L 98 - 10 7 mmol/L [employer] Work Phone: CO2 [Moles/Vol] 25 mmol/L 20 - 31 mmol/L [employer] Phone: Creatinine [Mass/Vol] 0.71 mg/dL 0.50 - 0.90 mg/dL [employer] Phone: Free PSA/Total PSA [Mass fraction] 7.1 g/dL 6.4 - 8.3 g/dL [employer] Phone: GFR >60 >60 mL/min [facility] Phone: GFR Non- >60 >60 mL/min [employer] Phone: Glucose [Mass/Vol] 109 mg/dL High 70 - 99 mg/dL [employer] Phone: Interpretation and review of laboratory results Abnormal [employer] Phone: Potassium [Moles/Vol] 3.7 mmol/L 3.7 - 5.3 mmol/L [employer] Phone: Sodium [Moles/Vol] 137 mmol/L 135 - 144 mmol/L [employer] Phone: Urea nitrogen (BldV) [Mass/Vol] 9 mg/dL 6 - 20 mg/dL [employer] Phone: Urea nitrogen/Creatinine (Bld) [Mass ratio] 13 [employer] Phone: Laboratory - Chemistry and C hemistry - challengeOrdered By: Kirk Barlow on 09-04-2020 GFR/1.73 sq M.predicted MDRD (S/P/Bld) [Vol rate/Area] [employer] Phone: Comment on above: Average GFR for 30-3 9 years old: 107 mL/min/1.73sq m Chronic Kidney Disease: <60 mL/min/1.73sq m Kidney failure: <15 mL/min/1.73sq m eGFR calculated using average adult body mass. Additional eGFR calculator available at: http://www.Revel Body.Stylenda/multiple_crcl_2012.htm Stage 1: Some kidney damage normal GFR Stage 2: Mild kidney damage GFR 60-89 Stage 3: Moderate kidney damage GFR 30-59 Stage 4: Severe kidney damage GFR 15-29 Stage 5: Severe kidney damage GFR <15 ESRD - chronic treatment by dialysis or transplant LipaseOrdered By: Kareem on 09-04-2020 Lipase [Catalytic activity/Vol] 13 U/L 13 - 60 U/L [facility] Work Phone: Microscopic UrinalysisOrdere d By: Kirkreyes Barlow on 09-04-2020 - [facility] Work Phone: Amorphous, UA NOT REPORTED None [facility] Work Phone: Bacteria, UA NOT REPORTED None [facility] Work Phone: Casts UA NOT REPORTED /LPF [facility] Work Phone: Crystals, UA NOT REPORTED None /HPF [facility] Work Phone: Epithelial Cells UA 0 TO 2 [facility] Work Phone: Mucus, UA NOT REPORTED None [facility] Work Phone: Other Observations UA NOT REPORTED NOT REQ. [facility] Work Phone: RBC, UA 0 TO 2 [facility] Work Phone: Renal Epithelial, UA NOT REPORTED 0 /HPF [facility] Work Phone: Trichomonas, UA NOT REPORTED None [facility] Work Phone: WBC, UA 0 TO 2 [facility] Work Phone: Yeast, UA NOT REPORTED None [facility] Work Phone: [facility] Work Phone: No Panel InformationOrdered By: Kirkreyes Barlow on 09-04-2020 [facility] Work Phone: , UrineOrdered By: Kirk Barlow on 09-04-2020 Beta HCG ( test) Ql (U) Negative NEGATIVE [employer] Phone: Comment on above: Specimens with hCG l evels near the threshold of the test (25 mIU/mL) may give a negative or indeterminate result. In such cases, another test should be performed with a new specimen in 48-72 hours. If early is suspected clinically in this setting, correlation with quantitative serum b-hCG level is suggested. [employer] has confirmed the use of plasma for this test. This has not been cleared or approved by the U.S. Food and Drug Administration. The FDA has determined that such clearance is not necessary. [employer] Phone: US GALLBLADDER RUQOrdered By : Kirk Barlow on 09-04-2020 Unremarkable right u pper quadrant ultrasound. No cholelithiasis or findings to suggest acute cholecystitis. [employer] Phone: EXAMINATION: RIGHT U PPER QUADRANT ULTRASOUND [...] The visualized IVC appears within normal limits. [employer] Phone: Thomas, Mhpn Incoming Radiant Results From [email or web address] - 09/04/2020 4:47 PM EDT EXAMINATION: RIGHT [...] cholelithiasis or findings to suggest acute cholecystitis. [facility] [employer] Work Phone: [facility] [employer] Work Phone: Urinalysis, reflex to micros copicOrdered By: Kirk Barlow on 09-04-2020 Bil[address] [facility] Work Phone: Color, UA YELLOW YELLOW [facility] [employer] Work Phone: Glucose, Ur Negative NEGATIVE [facility] [employer] Work Phone: Interpretation and review of laboratory results Abnormal [facility] [employer] Work Phone: Ketones Ql (U) Negative NEGATIVE [facility] Work Phone: Leukocyte esterase Test strip Ql (U) Negative NEGATIVE [facility] [employer] Phone: Nitrite, Urine Negative NEGATIVE [facility] Work Phone: pH, UA 6.5 [facility] [employer] Work Phone: Protein, UA Negative NEGATIVE [facility] [employer] Work Phone: Specific [place], UA 1.025 High [facility] [employer] Work Phone: Turbidity UA CLEAR CLEAR [facility] [employer] Work Phone: Urinalysis Comments NOT REPORTED [facility] [employer] Work Phone: Urine Hgb TRACE Abnormal NEGATIVE [facility] [employer] Phone: Urobilinogen, Urine Normal Normal [facility] [employer] Work Phone: [facility] [employer] Work Phone: XR ABDOMEN (KUB) (SINGLE AP VIEW)Ordered By: Kirk Barlow on 09-04-2020 No significant radiographic abnormality in the abdomen. [employer] Phone: EXAMINATION: ONE SUP INE XRAY VIEW(S) OF THE ABDOMEN 09/04/2020 3:28 pm COMPARISON: CT abdomen and pelvis June 01, 2020 HISTORY: ORDERING SYSTEM PROVIDED HISTORY: abd pain TECHNOLOGIST PROVIDED HISTORY: abd pain FINDINGS: Nonspecific but nonobstructive bowel gas pattern. Bilateral tubal occlusive device noted. No abnormal calcifications overlying the gallbladder urinary tract. No mass effect. Osseous structures grossly intact. [employer] Phone: Thomas, Mhpn Incoming Radiant Results From [email or web address] - 09/04/2020 3:37 PM EDT EXAMINATION: ONE [...] No significant radiographic abnormality in the abdomen. [employer] Phone: [employer] Phone: SPECIMEN REJECTIONon 021 Ordered Test [id number] CDIF [employer] Phone: Reason for Rejection Unable to perform testing: Formed stool is not consistent with suspected diagnosis. [employer] Phone: Specimen source Nom (Unsp spec) .FECES [employer] Phone: - NOT REPORTED [employer] Phone: Amylaseon 06-01-2020 Amylase [Catalytic activity/Vol] 45 U/L 28 - 100 U/L [employer] Phone: CBC Auto Differentialon 05-14-2020 Basophils (Bld) [#/Vol] 0.04 10*3/uL [employer] Phone: Basophils/100 WBC (Bld) 1 % 0 - 2 % [employer] Phone: Differential Type NOT REPORTED [employer] Phone: Eosinophils (Bld) [#/Vol] 0.13 10*3/uL [employer] Phone: Eosinophils/100 WBC (Bld) 2 % 1 - 4 % [employer] Phone: Erythrocyte distribution width (RBC) [Ratio] 13.4 % 11.8 - 14.4 % [employer] Phone: Hematocrit (Bld) [Volume fraction] 44.7 % 36.3 - 47.1 % [employer] Phone: Hemoglobin (Bld) [Mass/Vol] 14.7 g/dL 11.9 - 15.1 g/dL [employer] Phone: Immature granulocytes (Bld) [#/Vol] 0 % 0 [employer] Phone: Immature granulocytes (Bld) [#/Vol] 10*3/uL [employer] Phone: Lymphocytes (Bld) [#/Vol] 2.01 10*3/uL [employer] Phone: Lymphocytes/100 WBC (Bld) 28 % 24 - 43 % [employer] Phone: MCH (RBC) [Entitic mass] 30.1 pg 25.2 - 33.5 pg [employer] Phone: MCHC (RBC) [Mass/Vol] 32.9 g/dL 28.4 - 34.8 g/dL [employer] Phone: MCV (RBC) [Entitic vol] 91.6 fL 82.6 - 102.9 fL [employer] Phone: Monocytes (Bld) [#/Vol] 0.71 10*3/uL [employer] Phone: Monocytes/100 WBC (Bld) 10 % 3 - 12 % M [facility] [employer] Work Phone: Platelet mean volume (Bld) [Entitic vol] 9.9 fL 8.1 - 13.5 fL [facility] Work Phone: Platelets (Bld) [#/Vol] NOT REPORTED [facility] Work Phone: Platelets (Bld) [#/Vol] 284 10*3/uL [facility] Work Phone: RBC (Bld) [#/Vol] 4.88 10*6/uL 3.95 - 5.11 m/uL [facility] Work Phone: RBC morphology finding Nom (Bld) NOT REPORTED [facility] Work Phone: Segmented neutrophils/100 WBC (Bld) 59 % 36 - 65 % [facility] Work Phone: Segs Absolute 4.23 [facility] Work Phone: WBC (Bld) [#/Vol] 7.1 10*3/uL [facility] Work Phone: WBC (Bld) [#/Vol] 0.0 10*3/uL 0.0 per 100 WBC [facility] Work Phone: WBC Morphology NOT REPORTED [facility] Work Phone: CT ABDOMEN PELVIS W IV CONTR AST Additional Contrast? Noneon 06-01-2020 Thomas, Mhpn Incoming Radiant Results From [email or web address] - 06/01/2020 1:50 PM EST EXAMINATION: CT [...] the abdomen and pelvis as detailed above. [employer] Phone: EXAMINATION: CT OF T HE ABDOMEN [...] air. Bones/Soft Tissues: No significant osseous abnormality. [employer] Phone: Borderline dilated jejunal bowel loops are noted in the left abdomen measuring up to approximately 3 cm but without evidence for obstruction. Otherwise negative CT examination of the abdomen and pelvis as detailed above. [employer] Phone: Comprehensive Metabolic Pane l w/ Reflex to MGon 02-20-2021 Albumin [Mass/Vol] 4.5 g/dL 3.5 - 5.2 g/dL [employer] Phone: Albumin/Globulin [Mass ratio] 1.7 {ratio} [employer] Phone: ALP [Catalytic activity/Vol] 55 U/L 35 - 104 U/L [employer] Phone: ALT [Catalytic activity/Vol] 11 U/L 5 - 33 U/L [employer] Phone: Anion gap [Moles/Vol] 11 mmol/L 9 - 17 mmol/L [employer] Phone: AST [Catalytic activity/Vol] 16 U/L <32 [employer] Phone: Bilirubin Ql (U) 0.31 mg/dL 0.3 - 1.2 mg/dL [employer] Phone: Bun/Cre Ratio 9 [facility]X [facility] Work Phone: Calcium [Mass/Vol] 9.3 mg/dL 8.6 - 10. 4 mg/dL [employer] Phone: Chloride [Moles/Vol] 101 mmol/L 98 - 10 7 mmol/L [employer] Phone: CO2 [Moles/Vol] 24 mmol/L 20 - 31 mmol/L [employer] Phone: Creatinine [Mass/Vol] 0.78 mg/dL 0.5 - 0.9 mg/dL [employer] Phone: GFR >60 >60 mL/min [facility] Phone: GFR Non- >60 >60 mL/min [employer] Phone: Glucose [Mass/Vol] 93 mg/dL 70 - 99 mg/dL [employer] Phone: Potassium [Moles/Vol] 4.2 mmol/L 3.7 - 5.3 mmol/L [employer] Phone: Protein [Mass/Vol] 7.2 g/dL 6.4 - 8.3 g/dL [employer] Phone: Sodium [Moles/Vol] 136 mmol/L 135 - 144 mmol/L [employer] Phone: Urea nitrogen [Mass/Vol] 7 mg/dL 6 - 20 mg/dL [employer] Phone: HCG Qualitative, Serumon hCG Qual Negative NEGATIVE [employer] Phone: Comment on above: Specimens with hCG l evels near the threshold of the test (25 mIU/mL) may give a negative or indeterminate result. In such cases, another test should be performed with a new specimen in 48-72 hours. If early is suspected clinically in this setting, correlation with quantitative serum b-hCG level is suggested. [employer] has confirmed the use of plasma for this test. This has not been cleared or approved by the U.S. Food and Drug Administration. The FDA has determined that such clearance is not necessary. Lactic Acidon 06-01-2020 Lactate [Moles/Vol] 1.9 mmol/L 0.5 - 2. 2 mmol/L [employer] Phone: Lipaseon 06-01-2020 Interpretation and review of laboratory results Abnormal [employer] Phone: Lipase [Catalytic activity/Vol] 11 U/L Low 13 - 60 U/L [employer] Phone: Metabolic Panelon 06-01-2020 GFR/1.73 sq M predicted among non-blacks MDRD (S/P/Bld) [Vol rate/Area] [employer] Phone: Comment on above: Average GFR for 30-3 9 years old: 107 mL/min/1.73sq m Chronic Kidney Disease: <60 mL/min/1.73sq m Kidney failure: <15 mL/min/1.73sq m eGFR calculated using average adult body mass. Additional eGFR calculator available at: http://www.eDiets.com/multiple_crcl_2012.htm Stage 1: Some kidney damage normal GFR Stage 2: Mild kidney damage GFR 60-89 Stage 3: Moderate kidney damage GFR 30-59 Stage 4: Severe kidney damage GFR 15-29 Stage 5: Severe kidney damage GFR <15 ESRD - chronic treatment by dialysis or transplant Urinalysis, reflex to micros copicon 06-01-2020 Bilirubin Urine Negative NEGATIVE [facility] Work Phone: Color, UA YELLOW YELLOW [facility] Work Phone: Glucose, Ur Negative NEGATIVE [facility] Work Phone: Ketones Ql (U) Negative NEGATIVE [facility] Work Phone: Leukocyte esterase Test strip Ql (U) Negative NEGATIVE [facility] Work Phone: Nitrite, Urine Negative NEGATIVE [facility] Work Phone: pH, UA 8.5 [facility] [employer] Work Phone: Protein (U) [Mass/Vol] Negative NEGATIVE [facility] Work Phone: Specific [place], UA 1.020 [facility] [employer] Work Phone: Turbidity UA CLEAR CLEAR [facility] Work Phone: Urinalysis Comments NOT REPORTED [facility] [employer] Work Phone: Urine Hgb Negative NEGATIVE [facility] Work Phone: Urobilinogen, Urine Normal Normal [facility] Work Phone: Drug screen multi urineon Amphetamine Screen, Ur Negative NEGATIVE [facility] [place] [place] Barbiturate Screen, Ur Negative NEGATIVE [facility] [place] Benzodiazepine Screen, Urine Negative NEGATIVE [facility] [place] [place] Buprenorphine Urine Negative NEGATIVE [facility] [place] Cannabinoid Scrn, Ur Positive Abnormal NEGATIVE [facility] [place] Cocaine Metabolite, Urine Negative NEGATIVE [facility] [place] Interpretation and review of laboratory results Abnormal [facility] [place] MDMA, Urine NOT REPORTED NEGATIVE [place] Methadone Screen, Urine Negative NEGATIVE [place] Methamphetamine, Urine Negative NEGATIVE [place] Opiates, Urine Negative NEGATIVE [place] Oxycodone Screen, Ur Negative NEGATIVE [place] Phencyclidine, Urine Negative NEGATIVE [place] Propoxyphene, Urine Negative NEGATIVE [place] Test Information NOT REPORTED [place] Tricyclic Antidepressants, Urine Negative NEGATIVE [place], [place] Comment on above: Drug screen results are to be used for medical purposes only. All positive results are unconfirmed. Testing for employment or legal uses should be sent to a reference laboratory for confirmation. Microscopic Urinalysison Amorphous, UA NOT REPORTED None [place] Bacteria, UA TRACE Abnormal None [place] Casts UA NOT REPORTED /LPF [place] Crystals, UA NOT REPORTED None /HPF [place] Epithelial Cells UA 0 TO 2 [place] Interpretation and review of laboratory results Abnormal [place] Mucus, UA TRACE Abnormal None [place] Other Observations UA NOT REPORTED NOT REQ. [place] RBC (U) [#/Vol] 0 TO 2 [place] Renal Epithelial, UA NOT REPORTED 0 /HPF [place] Trichomonas, UA NOT REPORTED None [place] WBC, UA 0 TO 2 [place] Yeast, UA NOT REPORTED None [place] Troponinon 03-17-2020 Troponin I.cardiac [Mass/Vol] NOT REPORTED [place] Troponin T.cardiac [Mass/Vol] NOT REPORTED <0.03 ng/mL [place] Troponin, High Sensitivity <6 0 - 14 ng/L [place] Comment on above: High Sensitivity Troponin values cannot be compared with other Troponin methodologies. Patients with high levels of Biotin oral intake (i.e >5mg/day) may have falsely decreased Troponin levels. Samples collected within 8 hours of biotin intake may require additional information for diagnosis. Troponin I.cardiac [Mass/Vol] NOT REPORTED [place] Troponin T.cardiac [Mass/Vol] NOT REPORTED <0.03 ng/mL [place] Troponin, High Sensitivity <6 0 - 14 ng/L [place] Comment on above: High Sensitivity Troponin values cannot be compared with other Troponin methodologies. Patients with high levels of Biotin oral intake (i.e >5mg/day) may have falsely decreased Troponin levels. Samples collected within 8 hours of biotin intake may require additional information for diagnosis. Urinalysis Reflex to Culture on 03-17-2020 Bilirubin Urine Negative NEGATIVE [place] Color, UA YELLOW YELLOW [place] Glucose, Ur Negative NEGATIVE [place] Ketones Ql (U) Negative NEGATIVE [place] Leukocyte esterase Test strip Ql (U) Negative NEGATIVE [place] Nitrite, Urine Negative NEGATIVE [place] pH, UA 7.5 [place] Protein (U) [Mass/Vol] Negative NEGATIVE [place] Specific [place], UA 1.020 [place] Turbidity UA CLEAR CLEAR [place] Urinalysis Comments NOT REPORTED [place] Urine Hgb Negative NEGATIVE [place] Urobilinogen, Urine Normal Normal [place] XR CHEST (SINGLE VIEW FRONTA L)on 03-17-2020 EXAMINATION: ONE XRA Y VIEW OF THE CHEST 03/17/2020 11:49 am COMPARISON: 12/26/2019 HISTORY: ORDERING SYSTEM PROVIDED HISTORY: chest pain sob FINDINGS: The lungs are without acute focal process. No effusion or pneumothorax. The cardiomediastinal silhouette is normal. The osseous structures are intact without acute process. [place] Thomas, Mhpn Incoming Radiant Results From [email or web address] - 03/17/2020 11:55 AM EST EXAMINATION: ONE XRAY VIEW OF THE CHEST 03/17/2020 11:49 am COMPARISON: 12/26/2019 HISTORY: ORDERING SYSTEM PROVIDED HISTORY: chest pain sob FINDINGS: The lungs are without acute focal process. No effusion or pneumothorax. The cardiomediastinal silhouette is normal. The osseous structures are intact without acute process. IMPRESSION: [facility]able [facility] XR FOOT RIGHT (MIN 3 VIEWS)o n 12-31-2019 No acute osseous abnormality. [facility] EXAMINATION: THREE X RAY VIEWS OF THE RIGHT FOOT 12/31/2019 1:18 am COMPARISON: None. HISTORY: ORDERING SYSTEM PROVIDED HISTORY: Foot pain. Injury. TECHNOLOGIST PROVIDED HISTORY: Foot pain. Injury. FINDINGS: There is no acute fracture. There is normal alignment of the tarsometatarsal joints. No acute joint abnormality. No focal osseous lesion. No focal soft tissue abnormality. [facility] [place] Thomas, Mhpn Incoming Radiant Results From [email or web address] - 12/31/2019 1:59 AM EDT EXAMINATION: THREE [...] tissue abnormality. IMPRESSION: No acute osseous abnormality. [facility] 12-26-2019 Cholesterol [Mass/Vol] 125 mg/dL (<200) [facility] Work Phone: Comment on above: Note: Cholesterol Gu idelines:<200 [id number] Borderline>240 UndesirableResponsible Observer: CANDELARIO [employer] ([id number]) Triglyceride [Mass/Vol] 50 mg/dL (<150) [facility] Work Phone: Comment on above: Note: Triglyceride G uidelines:<150 [id number] High>499 Very highBased on AHA Guidelines for fasting triglyceride, January 2012.Responsible Observer: [employer]DEL[employer]IO [employer] ([id number]) Lipid Panelon 12-26-2019 Cholesterol [Mass/Vol] 125 mg/dL <200 [place] Comment on above: Cholesterol Guidelines: <200 Desirable 200-240 Borderline >240 Undesirable Cholesterol in HDL [Mass/Vol] 41 mg/dL >40 [place] Comment on above: HDL Guidelines: <40 Undesirable 40-59 Borderline >59 Desirable Cholesterol in LDL [Mass/Vol] 74 mg/dL 0 - 130 mg/dL [place] Comment on above: LDL Guidelines: <100 Desirable 100-129 Near to/above Desirable 130-159 Borderline >159 Undesirable Direct (measured) LDL and calculated LDL are not interchangeable tests. Cholesterol in VLDL [Mass/Vol] NOT REPORTED 1 - 30 mg/dL [place] Cholesterol.total/Le sterol in HDL [Mass ratio] 3 {ratio} <5 [place] Triglyceride [Mass/Vol] 50 mg/dL <150 [place] Comment on above: Triglyceride Guidelines: <150 Desirable 150-199 Borderline 200-499 High >499 Very high Based on AHA Guidelines for fasting triglyceride, January 2012. Otheron 12-26-2019 Cholesterol,HDL 41 mg/dL (>40) [facility] Work Phone: Comment on above: Note: HDL Guidelines :<40 [id number] Borderline>59 DesirableResponsible Observer: [employer]DEL[employer]IO [employer]FILE ([id number]) Cholesterol,LDL 74 mg/dL (0-130) [facility] Work Phone: Comment on above: Note: LDL Guidelines :<100 [id number] Near to/above [id number] Borderline>159 UndesirableDirect (measured) LDL and calculated LDL are not interchangeable tests.Responsible Observer: CAMILAEV AUTOFILE ([id number]) Cholesterol,VLDL NOT REPORTED mg/dL (1-30) [facility] Work Phone: Cholesterol.total/Le sterol in HDL [Mass ratio] 3.0 {ratio} (<5) [facility] Work Phone: Comment on above: Note: Responsible Ob server engineer: CEEV AUTOFILE ([id number]) Performing Lab: see note [facility] Work Phone: Comment on above: Note: CARMELA Gordon [address] [facility] [address] Note: [facility] - Lana Silverio [facility] [address] [place] [address] Reported Physicians See Note [facility] Work Phone: Comment on above: Note: Reported Physi cians:Ordering: Mono, AimeeAttending: Cotton, AimeeReferring: Cotton, Peggy Thyroid Stim. Horm. 0.42 mIU/L (0.30-5. 00 ) [facility] Work Phone: Comment on above: Note: Responsible Ob server engineer: [employer]ET TWO [employer]OFILE ([id number]) TSH with Reflexon 12-26-2019 TSH Qn 0.42 m[IU]/L [facility] [employer] [place] XR CHEST (2 VW)on 12-26-2019 Unremarkable chest. [facility] [employer] EXAMINATION: TWO XRA Y VIEWS OF THE CHEST 12/26/2019 11:13 am COMPARISON: 12/30/2018 HISTORY: ORDERING SYSTEM PROVIDED HISTORY: Chest pain on breathing FINDINGS: The lungs are without acute focal process. No effusion or pneumothorax. The cardiomediastinal silhouette is normal. The osseous structures are intact without acute process. [facility] [employer] [place] Thomas, Mhpn Incoming Radiant Results From [email or web address] - 12/26/2019 12:01 PM EDT EXAMINATION: TWO XRAY VIEWS OF THE CHEST 12/26/2019 11:13 am COMPARISON: 12/30/2018 HISTORY: ORDERING SYSTEM PROVIDED HISTORY: Chest pain on breathing FINDINGS: The lungs are without acute focal process. No effusion or pneumothorax. The cardiomediastinal silhouette is normal. The osseous structures are intact without acute process. IMPRESSION: Unremarkable chest. [employer] Otheron 12-24-2019 No evidence acute fracture traumatic malalignment in the thoracic/spine. No evidence fracture of the pelvis [facility] [employer] EXAMINATION: ONE XRA Y VIEW OF THE [...] are maintained. Suspect mild facet arthropathy L5-S1. [place] Thomas, Mhpn Incoming Radiant Results From [email or web address] - 12/24/2019 11:55 PM EDT EXAMINATION: ONE [...] thoracic/spine. No evidence fracture of the pelvis [place] Basic Metabolic Panelon 09-0 Anion gap [Moles/Vol] 10 mmol/L 9 - 17 mmol/L [place] Bun/Cre Ratio 16 [place] Calcium [Mass/Vol] 9.1 mg/dL 8.6 - 10. 4 mg/dL [place] Chloride [Moles/Vol] 104 mmol/L 98 - 10 7 mmol/L [place] CO2 [Moles/Vol] 25 mmol/L 20 - 31 mmol/L [place] Creatinine [Mass/Vol] 0.77 mg/dL 0.5 - 0.9 mg/dL [place] GFR >60 >60 mL/min [place] GFR Non- >60 >60 mL/min [place] Glucose [Mass/Vol] 99 mg/dL 70 - 99 mg/dL [place] Potassium [Moles/Vol] 4.0 mmol/L 3.7 - 5.3 mmol/L [place] Sodium [Moles/Vol] 139 mmol/L 135 - 144 mmol/L [place] Urea nitrogen [Mass/Vol] 12 mg/dL 6 - 20 mg/dL [place] CBC Auto Differentialon Basophils (Bld) [#/Vol] 0.04 10*3/uL [place] Basophils/100 WBC (Bld) 1 % 0 - 2 % [place] Differential Type NOT REPORTED [place] Eosinophils (Bld) [#/Vol] 0.23 10*3/uL [place] Eosinophils/100 WBC (Bld) 3 % 1 - 4 % [place] Erythrocyte distribution width (RBC) [Ratio] 13.6 % 11.8 - 14.4 % [place] Hematocrit (Bld) [Volume fraction] 41.0 % 36.3 - 47.1 % [place] Hemoglobin (Bld) [Mass/Vol] 13.0 g/dL 11.9 - 15.1 g/dL [place] Immature granulocytes (Bld) [#/Vol] 0 % 0 [place] Immature granulocytes (Bld) [#/Vol] 10*3/uL [place] Lymphocytes (Bld) [#/Vol] 2.23 10*3/uL [place] Lymphocytes/100 WBC (Bld) 28 % 24 - 43 % [place] MCH (RBC) [Entitic mass] 30.3 pg 25.2 - 33.5 pg [place] MCHC (RBC) [Mass/Vol] 31.7 g/dL 28.4 - 34.8 g/dL [place] MCV (RBC) [Entitic vol] 95.6 fL 82.6 - 102.9 fL [place] Monocytes (Bld) [#/Vol] 0.54 10*3/uL [place] Monocytes/100 WBC (Bld) 7 % 3 - 12 % [place] Platelet mean volume (Bld) [Entitic vol] 9.7 fL 8.1 - 13.5 fL [place] Platelets (Bld) [#/Vol] 257 10*3/uL [place] Platelets (Bld) [#/Vol] NOT REPORTED [place] RBC (Bld) [#/Vol] 4.29 10*6/uL 3.95 - 5.11 m/uL [place] RBC morphology finding Nom (Bld) NOT REPORTED [place] Segmented neutrophils/100 WBC (Bld) 61 % 36 - 65 % [place] Segs Absolute 4.80 [place] WBC (Bld) [#/Vol] 7.9 10*3/uL [place] WBC (Bld) [#/Vol] 0.0 10*3/uL 0.0 per 100 WBC [place] WBC Morphology NOT REPORTED [place] Metabolic Panelon 12-14-2019 GFR/1.73 sq M predicted among non-blacks MDRD (S/P/Bld) [Vol rate/Area] [place] Comment on above: Stage 1: Some [...] body mass. Additional eGFR calculator available at: http://www.globalrph.com/multiple_crcl_2012.htm US NON OB TRANSVAGINALon Unremarkable pelvic ultrasound. No evidence of ovarian torsion. [facility] Incoming Radiant Results From [email or web address] - 12/14/2019 12:42 PM EDT EXAMINATION: PELVIC [...] pelvic ultrasound. No evidence of ovarian torsion. [facility] EXAMINATION: PELVIC ULTRASOUND 12/14/2019 TECHNIQUE: Transvaginal pelvic [...] Free Fluid: No evidence of free fluid. [place] Urinalysis with Microscopico n 12-14-2019 Amorphous, UA NOT REPORTED None [place], [place] Bacteria, UA TRACE Abnormal None [place] Bilirubin Urine SMALL Abnormal NEGATIVE [place] Casts UA NOT REPORTED /LPF [place] Color, UA YELLOW YELLOW [place] Crystals, UA NOT REPORTED None /HPF [place] Epithelial Cells UA 2 TO 5 [place] Glucose, Ur Negative NEGATIVE [place] Interpretation and review of laboratory results Abnormal [place] Ketones Ql (U) 1+ Abnormal NEGATIVE [place] Leukocyte esterase Test strip Ql (U) Negative NEGATIVE [place] Mucus, UA 2+ Abnormal None [place] Nitrite, Urine Negative NEGATIVE [place] Other Observations UA NOT REPORTED NOT REQ. [place] pH, UA 6.0 [place] Protein (U) [Mass/Vol] Negative NEGATIVE [place] RBC (U) [#/Vol] 2 TO 5 [place] Renal Epithelial, UA NOT REPORTED 0 /HPF [place] Specific [place], UA >1.030 [place] Trichomonas, UA NOT REPORTED None [facility] [place] Turbidity UA CLEAR CLEAR [place] Urinalysis Comments NOT REPORTED [place] Urine Hgb Negative NEGATIVE [place] Urobilinogen, Urine Normal Normal [place] WBC, UA 2 TO 5 [place] Yeast, UA NOT REPORTED None [place], [place] - [place] CBC Auto Differentialon 11-10 Basophils (Bld) [#/Vol] 0.05 10*3/uL [place] Basophils/100 WBC (Bld) 1 % 0 - 2 % [place] Differential Type NOT REPORTED [place] Eosinophils (Bld) [#/Vol] 0.23 10*3/uL [place] Eosinophils/100 WBC (Bld) 3 % 1 - 4 % [place] Erythrocyte distribution width (RBC) [Ratio] 13.6 % 11.8 - 14.4 % [place] Hematocrit (Bld) [Volume fraction] 42.6 % 36.3 - 47.1 % [place] Hemoglobin (Bld) [Mass/Vol] 13.9 g/dL 11.9 - 15.1 g/dL [place] Immature granulocytes (Bld) [#/Vol] 0 % 0 [place] Immature granulocytes (Bld) [#/Vol] 10*3/uL [place] Interpretation and review of laboratory results Abnormal [place] Lymphocytes (Bld) [#/Vol] 1.72 10*3/uL [place] Lymphocytes/100 WBC (Bld) 22 % Low 24 - 43 % [place] MCH (RBC) [Entitic mass] 30.3 pg 25.2 - 33.5 pg [place] MCHC (RBC) [Mass/Vol] 32.6 g/dL 28.4 - 34.8 g/dL [place] MCV (RBC) [Entitic vol] 93.0 fL 82.6 - 102.9 fL [place] Monocytes (Bld) [#/Vol] 0.61 10*3/uL [place] Monocytes/100 WBC (Bld) 8 % 3 - 12 % [place] Platelet mean volume (Bld) [Entitic vol] 9.4 fL 8.1 - 13.5 fL [place] Platelets (Bld) [#/Vol] NOT REPORTED [place] Platelets (Bld) [#/Vol] 266 10*3/uL [place] RBC (Bld) [#/Vol] 4.58 10*6/uL 3.95 - 5.11 m/uL [place] RBC morphology finding Nom (Bld) NOT REPORTED [place] Segmented neutrophils/100 WBC (Bld) 66 % High 36 - 65 % [place] Segs Absolute 5.26 [facility] [place] WBC (Bld) [#/Vol] 0.0 10*3/uL 0.0 per 100 WBC [place] WBC (Bld) [#/Vol] 7.9 10*3/uL [place] WBC Morphology NOT REPORTED [place] ABDOMEN PELVIS W IV CONTR [...] clinically warranted. *Few incidental/chronic findings as described. [place], [place] Incoming Radiant Results From [email or web address] - 11/29/2019 8:08 AM EDT EXAMINATION: CT [...] clinically warranted. *Few incidental/chronic findings as described. [place] EXAMINATION: CT OF T NIMA ABDOMEN AND PELVIS WITH CONTRAST 11/29/2019 7:29 [...] air. Bones/Soft Tissues: No significant osseous abnormality. [place] Comprehensive Metabolic Pane l w/ Reflex to MGon 11-29-2019 Albumin [Mass/Vol] 4.4 g/dL 3.5 - 5.2 g/dL [place] Albumin/Globulin [Mass ratio] 1.8 {ratio} [place] ALP [Catalytic activity/Vol] 46 U/L 35 - 104 U/L [place] ALT [Catalytic activity/Vol] 10 U/L 5 - 33 U/L [place] Anion gap [Moles/Vol] 8 mmol/L Low 9 - 17 mmol/L [place] AST [Catalytic activity/Vol] 11 U/L <32 [place] Bilirubin Ql (U) 0.66 mg/dL 0.3 - 1.2 mg/dL [place] Bun/Cre Ratio 11 [place] Calcium [Mass/Vol] 9.2 mg/dL 8.6 - 10. 4 mg/dL [place] Chloride [Moles/Vol] 102 mmol/L 98 - 10 7 mmol/L [place] CO2 [Moles/Vol] 25 mmol/L 20 - 31 mmol/L [place] Creatinine [Mass/Vol] 0.81 mg/dL 0.5 - 0.9 mg/dL [place] GFR >60 >60 mL/min [place] GFR Non- >60 >60 mL/min [place] Glucose [Mass/Vol] 114 mg/dL High 70 - 99 mg/dL [place] Potassium [Moles/Vol] 3.8 mmol/L 3.7 - 5.3 mmol/L [place] Protein [Mass/Vol] 6.9 g/dL 6.4 - 8.3 g/dL [place] Sodium [Moles/Vol] 135 mmol/L 135 - 144 mmol/L [place] Urea nitrogen [Mass/Vol] 9 mg/dL 6 - 20 mg/dL [place] HCG Qualitative, Serumon hCG Qual Negative NEGATIVE [place] Comment on above: Specimens with hCG l evels near the threshold of the test (25 mIU/mL) may give a negative or indeterminate result. In such cases, another test should be performed with a new specimen in 48-72 hours. If early is suspected clinically in this setting, correlation with quantitative serum b-hCG level is suggested. [facility] has confirmed the use of plasma for this test. This has not been cleared or approved by the U.S. Food and Drug Administration. The FDA has determined that such clearance is not necessary. Lipaseon 11-29-2019 Lipase [Catalytic activity/Vol] 9 U/L Low 13 - 60 U/L [place] Metabolic Panelon 11-29-2019 GFR/1.73 sq M predicted among non-blacks MDRD (S/P/Bld) [Vol rate/Area] [place] Comment on above: Stage 1: Some [...] body mass. Additional eGFR calculator available at: http://www.eDiets.com/multiple_crcl_2012.htm Otheron 11-29-2019 Interpretation and review of laboratory results Abnormal [place] US NON OB TRANSVAGINALon EXAMINATION: PELVIC [...] free fluid cul-de-sac likely physiologic in nature. [place], [place] Incoming Radiant Results From [email or web address] - 11/29/2019 9:01 AM EDT EXAMINATION: PELVIC [...] No follow-up imaging is recommended. Reference: Radiology 2009;256(3):003-37 [place] 1. Likely mild hydrosalpinx as described. 2. Redemonstration of small right ovarian cyst, no follow-up imaging recommended guidelines below. RECOMMENDATIONS: 2.2 cm simple ovarian cyst. No follow-up imaging is recommended. Reference: Radiology 2009;256(3):943-25 [place] Urinalysis, reflex to micros copicon 11-29-2019 Bilirubin Urine Negative NEGATIVE [place] Color, UA YELLOW YELLOW [place] Glucose, Ur Negative NEGATIVE [place] Ketones Ql (U) Negative NEGATIVE [place] Leukocyte esterase Test strip Ql (U) Negative NEGATIVE [place] Nitrite, Urine Negative NEGATIVE [place] pH, UA 8.0 [place] Protein (U) [Mass/Vol] Negative NEGATIVE [place] Specific [place], UA 1.020 [place] Turbidity UA CLEAR CLEAR [place] Urinalysis Comments NOT REPORTED [place] Urine Hgb Negative NEGATIVE [facility] Urobilinogen, Urine Normal Normal [facility] 2019-nCoV RNA to ODHon 10-10 2019-nCoV RNA to [facility] Not Detected Normal Not Detect Ad [facility] Comment on above: Order Comment: Must [...] authorities. Comment: This assay was developed by [facility] and distributed under an Emergency Use Authorization (EUA) granted by the FDA for the qualitative detection of 2019-nCoV nucleic acid. Fact Sheet for healthcare Providers: https://www.fda.gov/media/585847/download Fact Sheet for Patents https://www.fda.gov/media/134559/download TESTED BY: [facility] [place] [address] phone CLIA #:[id number] Performed By: #### C [email or web address] #### [facility] [address] [place] [address] 45601 Culture,Urineon 10-10-2019 Culture,Urine Culture,Urine: No significant growth. Normal [facility] Comment on above: Performed By: #### C UU #### [facility] [address] [place] [address] 45601 Complete Blood Counton 10-08 Basophils (Bld) [#/Vol] 0.1 K/mcL Normal 0.0-0.2 [facility] Comment on above: Performed By: #### C BC #### [facility] [address] [place] [address] 26050 Basophils/100 WBC (Bld) 0.8 % Normal [facility] Comment on above: Performed By: #### C BC #### [facility] [address] [place] [address] 59355 Eosinophils (Bld) [#/Vol] 0.2 K/mcL Normal 0.0-0.6 [facility] Comment on above: Performed By: #### C BC #### [facility] [address] [place] [address] 33518 Eosinophils/100 WBC (Bld) 2.6 % Normal [facility] Comment on above: Performed By: #### C BC #### [facility] [address] [place] [address] 19555 Erythrocyte distribution width (RBC) [Ratio] 13.3 % Normal 11.5-14.5 [facility] Comment on above: Performed By: #### C BC #### [facility] [address] [place] [address] 81728 Hematocrit (Bld) [Volume fraction] 40.0 % Normal 35.3-44.9 [facility] Comment on above: Performed By: #### C BC #### [facility] [address] [place] [address] 81714 Hemoglobin (Bld) [Mass/Vol] 13.3 g/dL Normal 11.5-15.4 [facility] Comment on above: Performed By: #### C BC #### [facility] [address] [place] [address] 78104 Immature granulocytes/100 WBC (Bld) 0.2 % Normal 0-4 [facility] Comment on above: Performed By: #### C BC #### [facility] [address] [place] [address] 88105 Lymphocytes (Bld) [#/Vol] 2.0 K/mcL Normal 0.6-4.6 [facility] Comment on above: Performed By: #### C BC #### [facility] [address] [place] [address] 95018 Lymphocytes/100 WBC (Bld) 31.5 % Normal [facility] Comment on above: Performed By: #### C BC #### [facility] [address] [place] [address] 86158 MCH (RBC) [Entitic mass] 31.1 pg Normal 28.0-33.3 [facility] Comment on above: Performed By: #### C BC #### [facility] [address] [place] [address] 31902 MCH (RBC) [Entitic mass] 33.3 g/dL Normal 31.6-35.5 [facility] Comment on above: Performed By: #### C BC #### [facility] [address] [place] [address] 11070 MCV (RBC) [Entitic vol] 93.7 fL Normal 83.0-100.0 [facility] Comment on above: Performed By: #### C BC #### [facility] [address] [place] [address] 11123 Monocytes (Bld) [#/Vol] 0.7 K/mcL Normal 0.0-1.3 [facility] Comment on above: Performed By: #### C BC #### [facility] [address] [place] [address] 58695 Monocytes/100 WBC (Bld) 10.2 % Normal [facility] Comment on above: Performed By: #### C BC #### [facility] [address] [place] [address] 30928 Neutrophils (Bld) [#/Vol] 3.5 K/mcL Normal 1.6-8.9 [facility] Comment on above: Performed By: #### C BC #### [facility] [address] [place] [address] 30342 Platelet mean volume (Bld) [Entitic vol] 9.4 fL Normal 9.4-12.4 [facility] Comment on above: Performed By: #### C BC #### [facility] [address] [place] [address] 45818 Platelets (Bld) [#/Vol] 258 K/mcL Normal 140-400 [facility] Comment on above: Performed By: #### C BC #### [facility] [address] [place] [address] 25873 RBC (Bld) [#/Vol] 4.27 M/mcL Normal 3.82-4.97 [facility] Comment on above: Performed By: #### C BC #### [facility] [address] [place] [address] 95620 Segmented neutrophils/100 WBC (Bld) 54.7 % Normal [facility] Comment on above: Performed By: #### C BC #### [facility] [address] [place] [address] 30097 WBC (Bld) [#/Vol] 6.4 K/mcL Normal 4.3-11.1 [facility] Comment on above: Performed By: #### C BC #### [facility] [address] [place] [address] 53972 Comprehensive Metabolic Pane ayush 10-09-2019 Albumin [Mass/Vol] 4.2 g/dL Normal 3.5-5.7 [facility] Comment on above: Performed By: #### C MP, LIP #### [facility] [address] [place] [address] 02597 Albumin/Globulin [Mass ratio] 1.9 {ratio} Normal 1.1-2.2 [facility] Comment on above: Performed By: #### C MP, LIP #### [facility] [address] [place] [address] 72526 ALP [Catalytic activity/Vol] 47 Units/L Normal 34-104 [facility] Comment on above: Performed By: #### C MP, LIP #### [facility] [address] [place] [address] 13751 ALT [Catalytic activity/Vol] 12 Units/L Normal 7-52 [facility] Comment on above: Performed By: #### C MP, LIP #### [facility] [address] [place] [address] 18387 AST [Catalytic activity/Vol] 11 Units/L Low 13-39 [facility] Comment on above: Performed By: #### C MP, LIP #### [facility] [address] [place] [address] 23465 Bilirubin [Mass/Vol] 0.5 mg/dL Normal 0.3-1.0 [facility] Comment on above: Performed By: #### C MP, LIP #### [facility] [address] [place] [address] 60168 Calcium [Mass/Vol] 8.8 mg/dL Normal 8.6-10.3 [facility] Comment on above: Performed By: #### C MP, LIP #### [facility] [address] [place] [address] 68208 Chloride [Moles/Vol] 106 mmol/L Normal 98-107 [facility] Comment on above: Performed By: #### C MP, LIP #### [facility] [address] [place] [address] 92266 CO2 [Moles/Vol] 27 mmol/L Normal 23-29 [facility] Comment on above: Performed By: #### C MP, LIP #### [facility] [address] [place] [address] 52415 Creatinine [Mass/Vol] 0.88 mg/dL Normal 0.60-1.20 [facility] Comment on above: Performed By: #### C MP, LIP #### [facility] [address] [place] [address] 19533 eGFR For Americans > 60 Normal > 60 [facility] Comment on above: Result Comment: eGFR = Estimated Glomerular Filtration Rate reported as mL/min/1.73 square meters Chronic Kidney Disease: < 60; Kidney failure: < 15 Performed By: #### C MP, LIP #### [facility] [address] [place] [address] 20223 eGFR For Non- Americans > 60 Normal > 60 [facility] Comment on above: Performed By: #### C MP, LIP #### [facility] [address] [place] [address] 51412 Globulin (S) [Mass/Vol] 2.2 g/dL Low 2.4-3.5 [facility] Comment on above: Performed By: #### C MP, LIP #### [facility] [address] [place] [address] 02523 Glucose [Mass/Vol] 87 mg/dL Normal 70-105 [facility] Comment on above: Performed By: #### C MP, LIP #### [facility] [address] [place] [address] 12519 Osmolality,Calculated 286 Normal 280-300 [facility] Comment on above: Performed By: #### C MP, LIP #### [facility] [address] [place] [address] 50100 Potassium [Moles/Vol] 3.9 mmol/L Normal 3.5-5.1 [facility] Comment on above: Performed By: #### C MP, LIP #### [facility] [address] [place] [address] 65018 Protein [Mass/Vol] 6.4 g/dL Normal 6.4-8.9 [facility] Comment on above: Performed By: #### C MP, LIP #### [facility] [address] [place] [address] 46468 Sodium [Moles/Vol] 139 mmol/L Normal 136-145 [facility] Comment on above: Performed By: #### C MP, LIP #### [facility] [address] [place] [address] 78442 Urea nitrogen [Mass/Vol] 8 mg/dL Normal 6-20 [facility] Comment on above: Performed By: #### C MP, LIP #### [facility] [address] [place] [address] 93648 Urea nitrogen/Creatinine [Mass ratio] 9 mg/mg Normal 6-26 [facility] Comment on above: Performed By: #### C DYLAN, LIP #### [facility] [address] [place] [address] 23120 Drug Screen, Urineon 020 Amphetamine Screen,Urine Negative Normal Gargra=388 0 [facility] Comment on above: Performed By: #### U DS #### [facility] [address] [place] [address] 94156 Barbiturate Screen,Urine Negative Normal Ebayun=506 [facility] Comment on above: Performed By: #### U DS #### [facility] [address] [place] [address] 54229 Benzodiazepines Screen,Urine Negative Normal Wqfoun=677 [facility] Comment on above: Performed By: #### U DS #### [facility] [address] [place] [address] 30166 Buprenorphine Screen,Urine Negative Normal Cutoff=5 [facility] Comment on above: Performed By: #### U DS #### [facility] [address] [place] [address] 16757 Cannabinoid Screen,Urine Positive Abnormal Cutoff = 50 [facility] Comment on above: Result Comment: Unco nfirmed presumptive positive. Refer to Urine Drug Screen Interpretation result for interpretative guidelines. Performed By: #### U DS #### [facility] [address] [place] [address] 91072 Cocaine Screen,Urine Negative Normal Cutoff= 300 [facility] Comment on above: Performed By: #### U DS #### [facility] [address] [place] [address] 26245 Opiate Screen,Urine Negative Normal Ubwfst=923 [facility] Comment on above: Performed By: #### U DS #### [facility] [address] [place] [address] 73758 Phencyclidine Screen,Urine Negative Normal Cutoff=25 [facility] Comment on above: Performed By: #### U DS #### [facility] [address] [place] [address] 78093 Ur. Drug Screen Interpretation See Below Normal [facility] Comment on above: Result Comment: This is [...] request. Performed By: #### U DS #### [facility] [address] [place] [address] 43528 Emergency Documentationon Emergency Documentation [facility] [address] [place] [address] Emergency Department Note Signed PRELIMINARY DRAFT REPORT UNTIL ELECTRONICALLY SIGNED PATIENT: Melody Fletcher MR#: [id number] : 1990 AGE/SEX: 29 / F ADMITTED: 10/09/19 OUTSIDE LOCN: LOCATION: [facility] ATTENDING: cc: PCP NO; Disposition Clinical Impression: [...] it will be r eviewed by the galvanizer zinc and/or radiologist. If the review changes your [...] need to find a physician: Go to [email or web address] or call: [facility]: [phone] [facility]: [phone] [facility]: [phone] Prescriptions: levETIRAcetam [Keppra] 250 mg PO BID [...] She denies any recent travel outside the [facility] or sick contacts. She did move here 2 weeks ago from the [place] area and that is why she is [...] pH 8.0 (5.0-8.0) pH Units Ur Specific [place] 1.015 (1.010-1.025) Urine Protein Negative (Neg-Trace) mg/dL [...] Urine pH (5.0-8.0) pH Units Ur Specific [place] (1.010-1.025) Urine Protein (Neg-Trace) mg/dL Urine Glucose [...] By: Elsie Brink MD Signed By: 10/09/19 1507 DD/ 1312 Initialized By: [id number] Normal [facility] Lipaseon 10-09-2019 Lipase [Catalytic activity/Vol] 9 Units/L Low 11-82 [facility] Comment on above: Performed By: #### C MP, LIP #### [facility] [address] [place] [address] Test Result, Urine on 10-09-2019 Beta HCG ( test) Ql (U) Negative Normal Negative [facility] Comment on above: Performed By: #### U PREG #### [facility] [address] [place] [address] Urinalysis Reflex Cult Micro on 10-09-2019 Bacteria LM.HPF (Urine sed) [#/Area] Few Normal None-Few [facility] Comment on above: Performed By: #### U AREF #### [facility] [address] [place] [address] Culture Indicated,Urine YES Abnormal NO [facility] Comment on above: Performed By: #### U AREF #### [facility] [address] [place] [address] RBC LM.HPF (Urine sed) [#/Area] 0-3 Normal 0-3 [facility] Comment on above: Performed By: #### U AREF #### [facility] [address] [place] [address] 71553 Squamous Epithelial Cell,Urine Few Normal None-Few [facility] Comment on above: Performed By: #### U AREF #### [facility] [address] [place] [address] 46255 WBC LM.HPF (Urine sed) [#/Area] 0-3 Normal 0-3 [facility] Comment on above: Performed By: #### U AREF #### [facility] [address] [place], [place] [id number] Bilirubin,Urine Negative Normal Negative [facility] Comment on above: Performed By: #### U AREF #### [facility] [address] [place] [address] [id number] Blood,Urine Small Abnormal Negative [facility] Comment on above: Performed By: #### U AREF #### [facility] [address] [place] [address] [id number] Clarity (U) Clear Normal Clear [facility] Comment on above: Performed By: #### U AREF #### [facility] [address] [place] [address] [id number] Color (U) Yellow Normal Yellow [facility] Comment on above: Performed By: #### U AREF #### [facility] [address] [place] [address] [id number] Glucose Ql (U) Normal Normal Normal [facility] Comment on above: Performed By: #### U AREF #### [facility] [address] [place] [address] [id number] Ketones Ql (U) Negative Normal Negative [facility] Comment on above: Performed By: #### U AREF #### [facility] [address] [place] [address] [id number] Leukocyte esterase Test strip Ql (U) Negative Normal Negative [facility] Comment on above: Performed By: #### U AREF #### [facility] [address] [place] [address] [id number] Nitrite,Urine Negative Normal Negative [facility] Comment on above: Performed By: #### U AREF #### [facility] [address] [place] [address] [id number] pH (U) 8.0 pH Units Normal 5.0-8.0 [facility] Comment on above: Performed By: #### U AREF #### [facility] [address] [place] [address] [id number] Protein (U) [Mass/Vol] Negative Normal Neg-Trace Ad [facility] Comment on above: Performed By: #### U AREF #### [facility] [address] [place] [address] [id number] Specific [place],Urine 1.015 Normal 1.010 -1.02 5 [facility] Comment on above: Performed By: #### U AREF #### [facility] [address] [place] [address] [id number] Urobilinogen,Urine Normal Normal Normal [facility] Comment on above: Performed By: #### U AREF #### [facility] [address] [place] [address] [id number] XR CHEST STANDARD (2 VW)on 0 12-30-2018 No acute cardiopulmo nary pathology. [facility] [place], [place] EXAMINATION: TWO XRA Y VIEWS OF [...] structures and soft tissues are grossly intact. [place], [place] Thomas, [facility] Incoming Radiant Results From [email or web address] - 12/30/2018 6:42 AM EDT EXAMINATION: TWO [...] grossly intact. IMPRESSION: No acute cardiopulmonary pathology. [place], [place] Vital Signs Date Time Vital Sign Value Performing Clinician Facility 02-08-2024 23:59-0400 Diastolic blood pressure 54 mm[Hg] DO Khang Tupa Work Phone: [facility] 02-08-2024 23:59-0400 Heart rate 67 /min DO Khang Tupa Work Phone: [facility] 02-08-2024 23:59-0400 Respiratory rate 18 /min DO Khang Tupa Work Phone: [facility] 02-08-2024 23:59-0400 SaO2% (BldA) [Mass fraction] 99 % DO Khang Tupa Work Phone: [facility] 02-08-2024 23:59-0400 Systolic blood pressure 105 mm[Hg] DO Khang Tupa Work Phone: [facility] 02-08-2024 20:12-0400 Body height 149.86 cm DO Khang Tupa Work Phone: [facility] 02-08-2024 20:12-0400 Body temperature 98.8 [degF] DO Khang Tupa Work Phone: [facility] 02-08-2024 20:12-0400 Body weight 66.22 kg DO Khang Colon Work Phone: [facility] 02-08-2024 11:27-0400 Body height 149.9 cm Jana Williams SUPPORT REPRESENTATIVE Work Phone: [facility] 02-08-2024 11:27-0400 Body mass index (BMI) [Ratio] 29.61 kg/m2 Jana Edwinaholz SUPPORT REPRESENTATIVE Work Phone: [facility] 02-08-2024 11:27-0400 Body temperature 99.39 [degF] Jana Edwinaholz SUPPORT REPRESENTATIVE Work Phone: [facility] 02-08-2024 11:27-0400 Body weight 66.5 kg Jana Traceyz SUPPORT REPRESENTATIVE Work Phone: [facility] 02-08-2024 11:27-0400 Diastolic blood pressure 72 mm[Hg] Jana Chidihholz SUPPORT REPRESENTATIVE Work Phone: [facility] 02-08-2024 11:27-0400 Heart rate 93 /min Jana Aichholz SUPPORT REPRESENTATIVE Work Phone: [facility] 02-08-2024 11:27-0400 Respiratory rate 20 /min Jana Aichholz SUPPORT REPRESENTATIVE Work Phone: [facility] 02-08-2024 11:27-0400 SaO2% (BldA) [Mass fraction] 99 % Jana Edwinaholz SUPPORT REPRESENTATIVE Work Phone: [facility] 02-08-2024 11:27-0400 Systolic blood pressure 104 mm[Hg] Jana Aichholz SUPPORT REPRESENTATIVE Work Phone: [facility] 03-08-2023 10:41-0500 Body height 149.86 cm Srinivasa Ed BLOCK MECHANIC Work Phone: [facility] Work Phone: 03-08-2023 10:41-0500 Body mass index (BMI) [Ratio] 33.8 kg/m2 Srinivasa Jhaveri CNP Work Phone: [facility] Work Phone: 03-08-2023 10:41-0500 Body surface area Derived from formula 1.7 m2 Srinivasa Jhaveri CNP Work Phone: [facility] Work Phone: 03-08-2023 10:41-0500 Body weight 75.81 kg Srinivasa Jhaveri CNP Work Phone: [facility] Work Phone: 03-08-2023 10:41-0500 Diastolic blood pressure 83 mm[Hg] Srinivasa Jhaveri CNP Work Phone: [facility] Work Phone: 03-08-2023 10:41-0500 Heart rate 81 /min Srinivasa Jhaveri CNP Work Phone: [facility] Work Phone: 03-08-2023 10:41-0500 Inhaled oxygen concentration 21 % Srinivasa Jhaveri CNP Work Phone: [facility] Work Phone: 03-08-2023 10:41-0500 Inhaled oxygen flow rate 0 L/min Srinivasa Jhaveri CNP Work Phone: [facility] Work Phone: 03-08-2023 10:41-0500 Respiratory rate 18 /min Srinivasa Jhaveri CNP Work Phone: [facility] Work Phone: 03-08-2023 10:41-0500 SaO2% (BldA) [Mass fraction] 98 % Srinivasa Jhaveri CNP Work Phone: [facility] Work Phone: 03-08-2023 10:41-0500 Systolic blood pressure 131 mm[Hg] Srinivasa Jhaveri CNP Work Phone: [facility] Work Phone: 02-19-2023 10:15-0500 Body height 149.86 cm Srinivasa Jhaveri CNP Work Phone: [facility] Work Phone: 02-19-2023 10:15-0500 Body mass index (BMI) [Ratio] 33.2 kg/m2 Srinivasa Jhaveri CNP Work Phone: [facility] Work Phone: 02-19-2023 10:15-0500 Body surface area Derived from formula 1.7 m2 Srinivasa Jhaveri CNP Work Phone: [facility] Work Phone: 02-19-2023 10:15-0500 Body temperature 98.8 [degF] Srinivasa Jhaveri CNP Work Phone: [facility] Work Phone: 02-19-2023 10:15-0500 Body weight 74.66 kg Srinivasa Jhaveri CNP Work Phone: [facility] Work Phone: 02-19-2023 10:15-0500 Diastolic blood pressure 82 mm[Hg] Srinivasa Jhaveri CNP Work Phone: [facility] Work Phone: 02-19-2023 10:15-0500 Heart rate 80 /min Srinivasa Jhaveri CNP Work Phone: [facility] Work Phone: 02-19-2023 10:15-0500 SaO2% (BldA) [Mass fraction] 98 % Srinivasa Jhaveri CNP Work Phone: [facility] Work Phone: 02-19-2023 10:15-0500 Systolic blood pressure 114 mm[Hg] Srinivasamarshall Jhaveri CNP Work Phone: [facility] Work Phone: 02-05-2023 10:44-0400 Body height 149.86 cm Srinivasa Jhaveri CNP Work Phone: [facility] Work Phone: 02-05-2023 10:44-0400 Body mass index (BMI) [Ratio] 33.1 kg/m2 Srinivasa Jhaveri CNP Work Phone: [facility] Work Phone: 02-05-2023 10:44-0400 Body surface area Derived from formula 1.7 m2 Srinivasa Jhaveri CNP Work Phone: [facility] Work Phone: 02-05-2023 10:44-0400 Body temperature 98.1 [degF] Srinivasa Jhaveri CNP Work Phone: [facility] Work Phone: 02-05-2023 10:44-0400 Body weight 74.39 kg Srinivasa Jhaveri CNP Work Phone: [facility] Work Phone: 02-05-2023 10:44-0400 Diastolic blood pressure 71 mm[Hg] Srinivasa Jhaveri CNP Work Phone: [facility] Work Phone: 02-05-2023 10:44-0400 Heart rate 71 /min Srinivasa Jhaveri CNP Work Phone: [facility] Work Phone: 02-05-2023 10:44-0400 SaO2% (BldA) [Mass fraction] 98 % Srinivasa Jhaveri CNP Work Phone: [facility] Work Phone: 02-05-2023 10:44-0400 Systolic blood pressure 106 mm[Hg] Srinivasa Ed KRAFT Work Phone: [facility] Work Phone: 01-28-2023 10:57-0400 Body height 149.86 cm Srinivasa Jhaveri CNP Work Phone: [facility] Work Phone: 01-28-2023 10:57-0400 Body mass index (BMI) [Ratio] 32.7 kg/m2 Srinivasa Jhaveri CNP Work Phone: [facility] Work Phone: 01-28-2023 10:57-0400 Body surface area Derived from formula 1.7 m2 Srinivasa Jhaveri CNP Work Phone: [facility] Work Phone: 01-28-2023 10:57-0400 Body temperature 98.4 [degF] Srinivasa Jhaveri CNP Work Phone: [facility] Work Phone: 01-28-2023 10:57-0400 Body weight 73.39 kg Srinivasa Jhaveri CNP Work Phone: [facility] Work Phone: 01-28-2023 10:57-0400 Diastolic blood pressure 75 mm[Hg] Srinivasa Jhaveri CNP Work Phone: [facility] Work Phone: 01-28-2023 10:57-0400 Heart rate 63 /min Srinivasa Jhaveri CNP Work Phone: [facility] Work Phone: 01-28-2023 10:57-0400 SaO2% (BldA) [Mass fraction] 98 % Srinivasa Jhaveri CNP Work Phone: [facility] Work Phone: 01-28-2023 10:57-0400 Systolic blood pressure 118 mm[Hg] Srinivasamarshall Jhaveri BLOCK MECHANIC Work Phone: [facility] Work Phone: 12-31-2022 11:55-0400 Body height 149.86 cm Srinivasa Jhaveri CNP Work Phone: [facility] Work Phone: 12-31-2022 11:55-0400 Body mass index (BMI) [Ratio] 32.9 kg/m2 Srinivasa Jhaveri CNP Work Phone: [facility] Work Phone: 12-31-2022 11:55-0400 Body surface area Derived from formula 1.7 m2 Srinivasa Jhaveri CNP Work Phone: [facility] Work Phone: 12-31-2022 11:55-0400 Body temperature 98.1 [degF] Srinivasa Jhaveri CNP Work Phone: [facility] Work Phone: 12-31-2022 11:55-0400 Body weight 73.94 kg Srinivasa Jhaveri CNP Work Phone: [facility] Work Phone: 12-31-2022 11:55-0400 Diastolic blood pressure 76 mm[Hg] Srinivasa Jhaveri CNP Work Phone: [facility] Work Phone: 12-31-2022 11:55-0400 Heart rate 66 /min Srinivasa Jhaveri CNP Work Phone: [facility] Work Phone: 12-31-2022 11:55-0400 SaO2% (BldA) [Mass fraction] 96 % Srinivasa Jhaveri CNP Work Phone: [facility] Work Phone: 12-31-2022 11:55-0400 Systolic blood pressure 108 mm[Hg] Srinivasamarshall Jhaveri CNP Work Phone: [facility] Work Phone: 11-30-2022 09:05-0400 Body height 149.86 cm Srinivasa Jhaveri CNP Work Phone: [facility] Work Phone: 11-30-2022 09:05-0400 Body mass index (BMI) [Ratio] 33.3 kg/m2 Srinivasa Jhaveri CNP Work Phone: [facility] Work Phone: 11-30-2022 09:05-0400 Body surface area Derived from formula 1.7 m2 Srinivasa Jhaveri CNP Work Phone: [facility] Work Phone: 11-30-2022 09:05-0400 Body temperature 98.4 [degF] Srinivasa Jhaveri CNP Work Phone: [facility] Work Phone: 11-30-2022 09:05-0400 Body weight 74.75 kg Srinivasa Jhaveri CNP Work Phone: [facility] Work Phone: 11-30-2022 09:05-0400 Diastolic blood pressure 77 mm[Hg] Srinivasa Jhaveri CNP Work Phone: [facility] Work Phone: 11-30-2022 09:05-0400 Heart rate 59 /min Srinivasa Jhaveri CNP Work Phone: [facility] Work Phone: 11-30-2022 09:05-0400 SaO2% (BldA) [Mass fraction] 97 % Srinivasa Jhaveri CNP Work Phone: [facility] Work Phone: 11-30-2022 09:05-0400 Systolic blood pressure 124 mm[Hg] Srinivasa Jhaveri CNP Work Phone: [facility] Work Phone: 06-07-2022 23:13-0500 SaO2% (BldA) [Mass fraction] 100 % Serenity Will DO Work Phone: [employer] 06-07-2022 23:10-0500 Diastolic blood pressure 93 mm[Hg] Serenity Will DO Work Phone: [facility] 06-07-2022 23:10-0500 Systolic blood pressure 136 mm[Hg] Serenity Will DO Work Phone: [facility] 06-07-2022 21:49-0500 Body temperature 98.6 [degF] Serenity Will DO Work Phone: [facility] [facility] 06-07-2022 21:49-0500 Heart rate 85 /min Serenity Will DO Work Phone: [facility] 06-07-2022 21:49-0500 Respiratory rate 18 /min Serenity Will DO Work Phone: [facility] [employer] 01-22-2022 10:53-0400 Body height 149.86 cm Traci Dennison CNP Work Phone: [facility] Work Phone: 01-22-2022 10:53-0400 Body mass index (BMI) [Ratio] 30.3 kg/m2 Traci Dennison CNP Work Phone: [facility] Work Phone: 01-22-2022 10:53-0400 Body surface area Derived from formula 1.6 m2 Traci Dennison CNP Work Phone: [facility] Work Phone: 01-22-2022 10:53-0400 Body temperature 97.6 [degF] Traci Dennison CNP Work Phone: [facility] Work Phone: 01-22-2022 10:53-0400 Body weight 67.95 kg Traci Dennison CNP Work Phone: [facility] Work Phone: 01-22-2022 10:53-0400 Diastolic blood pressure 80 mm[Hg] Traci Dennison CNP Work Phone: [facility] Work Phone: 01-22-2022 10:53-0400 Heart rate 76 /min Traci Dennison CNP Work Phone: [facility] Work Phone: 01-22-2022 10:53-0400 SaO2% (BldA) [Mass fraction] 99 % Traci Dennison BLOCK MECHANIC Work Phone: [facility] Work Phone: 01-22-2022 10:53-0400 Systolic blood pressure 120 mm[Hg] Traci Dennison CNP Work Phone: [facility] Work Phone: 12-11-2021 11:36-0400 Body height 149.86 cm Traci Dennison CNP Work Phone: [facility] Work Phone: 12-11-2021 11:36-0400 Body mass index (BMI) [Ratio] 26.9 kg/m2 Traci Dennison CNP Work Phone: [facility] Work Phone: 12-11-2021 11:36-0400 Body surface area Derived from formula 1.55 m2 Traci Dennison CNP Work Phone: [facility] Work Phone: 12-11-2021 11:36-0400 Body surface area Derived from formula 1.6 m2 Traci Dennison CNP Work Phone: [facility] Work Phone: 12-11-2021 11:36-0400 Body temperature 97.6 [degF] Traci Dennison CNP Work Phone: [facility] Work Phone: 12-11-2021 11:36-0400 Body weight 60.33 kg Traci Dennison CNP Work Phone: [facility] Work Phone: 12-11-2021 11:36-0400 Diastolic blood pressure 78 mm[Hg] Traci Dennison CNP Work Phone: [facility] Work Phone: 12-11-2021 11:36-0400 Heart rate 61 /min Traci Dennison CNP Work Phone: [facility] Work Phone: 12-11-2021 11:36-0400 SaO2% (BldA) [Mass fraction] 99 % Traci Dennison CNP Work Phone: [facility] Work Phone: 12-11-2021 11:36-0400 Systolic blood pressure 98 mm[Hg] Traci Dennison CNP Work Phone: [facility] Work Phone: 11-25-2021 12:49-0400 Body height 149.86 cm Traci Dennison CNP Work Phone: [facility] Work Phone: 11-25-2021 12:49-0400 Body mass index (BMI) [Ratio] 27.2 kg/m2 Traci Dennison CNP Work Phone: [facility] Work Phone: 11-25-2021 12:49-0400 Body surface area Derived from formula 1.56 m2 Traci Dennison CNP Work Phone: [facility] Work Phone: 11-25-2021 12:49-0400 Body surface area Derived from formula 1.6 m2 Traci Dennison CNP Work Phone: [facility] Work Phone: 11-25-2021 12:49-0400 Body temperature 98.6 [degF] Traci Dennison CNP Work Phone: [facility] Work Phone: 11-25-2021 12:49-0400 Body weight 61.05 kg Traci Dennison CNP Work Phone: [facility] Work Phone: 11-25-2021 12:49-0400 Diastolic blood pressure 82 mm[Hg] Traci Dennison BLOCK MECHANIC Work Phone: [facility] Work Phone: 11-25-2021 12:49-0400 Heart rate 60 /min Traci Dennison CNP Work Phone: [facility] Work Phone: 11-25-2021 12:49-0400 SaO2% (BldA) [Mass fraction] 98 % Traci Dennison CNP Work Phone: [facility] Work Phone: 11-25-2021 12:49-0400 Systolic blood pressure 118 mm[Hg] Traci Dennison CNP Work Phone: [facility] Work Phone: 11-12-2021 09:21-0400 Body height 147.3 cm Myrtle Bergeron DO Work Phone: [facility] [facility] 11-12-2021 09:21-0400 Body mass index (BMI) [Ratio] 28.22 kg/m2 Myrtlenabeel Bergeron DO Work Phone: [facility] 11-12-2021 09:21-0400 Body temperature 97.9 [degF] Myrtlejerry Bergeron DO Work Phone: [facility] [facility] 11-12-2021 09:21-0400 Body weight 61.24 kg Myrtle Bergeron DO Work Phone: [facility] [facility] 11-12-2021 09:21-0400 Diastolic blood pressure 72 mm[Hg] Myrtle Bergeron DO Work Phone: [facility] [facility] 11-12-2021 09:21-0400 Heart rate 68 /min Myrtle Bergeron DO Work Phone: [facility] [employer] 11-12-2021 09:21-0400 Respiratory rate 20 /min Myrtle Bergeron DO Work Phone: [facility] [employer] 11-12-2021 09:21-0400 SaO2% (BldA) [Mass fraction] 100 % Myrtle Bergeron DO Work Phone: [facility] 11-12-2021 09:21-0400 Systolic blood pressure 112 mm[Hg] Myrtle Bergeron DO Work Phone: [facility] [facility] 09-01-2021 16:43-0400 Body temperature 99.19 [degF] Traci Dennison APRN - BLOCK MECHANIC Work Phone: [facility] 09-01-2021 16:43-0400 Diastolic blood pressure 73 mm[Hg] Traci Dennison APRN - BLOCK MECHANIC Work Phone: [facility] 09-01-2021 16:43-0400 Heart rate 88 /min Traci Dennison APRN - BLOCK MECHANIC Work Phone: [facility] 09-01-2021 16:43-0400 Respiratory rate 15 /min Traci Dennison APRN - BLOCK MECHANIC Work Phone: [facility] 09-01-2021 16:43-0400 SaO2% (BldA) [Mass fraction] 100 % Traci Dennison APRN - BLOCK MECHANIC Work Phone: [facility] 09-01-2021 16:43-0400 Systolic blood pressure 116 mm[Hg] Traci Dennison 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 - BLOCK MECHANIC Work Phone: [facility] 08-13-2021 11:32-0400 Body height 149.86 cm Traci Juma KRAFT Work Phone: [facility] Work Phone: 08-13-2021 11:32-0400 Body mass index (BMI) [Ratio] 28.2 kg/m2 Traci Juma BLOCK MECHANIC Work Phone: [facility] Work Phone: 08-13-2021 11:32-0400 Body surface area Derived from formula 1.58 m2 Traci Dennison CNP Work Phone: [facility] Work Phone: 08-13-2021 11:32-0400 Body surface area Derived from formula 1.6 m2 Traci Dennison CNP Work Phone: [facility] Work Phone: 08-13-2021 11:32-0400 Body temperature 98.2 [degF] Traci Juma KRAFT Work Phone: [facility] Work Phone: 08-13-2021 11:32-0400 Body weight 63.41 kg Traci Juma KRAFT Work Phone: [facility] Work Phone: 08-13-2021 11:32-0400 Diastolic blood pressure 72 mm[Hg] Traci Dennison CNP Work Phone: [facility] Work Phone: 08-13-2021 11:32-0400 Heart rate 73 /min Traci Dennison CNP Work Phone: [facility] Work Phone: 08-13-2021 11:32-0400 Heart Rate Rhythm 1 1 Traci Dennison CNP Work Phone: [facility] Work Phone: 08-13-2021 11:32-0400 SaO2% (BldA) [Mass fraction] 99 % Traci Dennison BLOCK MECHANIC Work Phone: [facility] Work Phone: 08-13-2021 11:32-0400 Systolic blood pressure 108 mm[Hg] Traci Dennison BLOCK MECHANIC Work Phone: [facility] Work Phone: 08-11-2021 11:45-0400 Diastolic blood pressure 60 mm[Hg] Braydon Wilmaangusan DO Work Phone: [employer] 08-11-2021 11:45-0400 SaO2% (BldA) [Mass fraction] 98 % Braydon Rigo DO Work Phone: [facility] 08-11-2021 11:45-0400 Systolic blood pressure 100 mm[Hg] Braydon Wilmattan DO Work Phone: [facility] 08-11-2021 09:59-0400 Body mass index (BMI) [Ratio] 29.26 kg/m2 Braydon Malloryan DO Work Phone: [employer] 08-11-2021 09:59-0400 Body temperature 97.2 [degF] Braydon Wilmattan DO Work Phone: [employer] 08-11-2021 09:59-0400 Body weight 63.5 kg Braydon Malloryan DO Work Phone: [facility] 08-11-2021 09:59-0400 Heart rate 82 /min Braydon Wilmattan DO Work Phone: [facility] 08-11-2021 09:59-0400 Respiratory rate 18 /min Braydon Wilmattan DO Work Phone: [employer] 07-17-2021 10:36-0400 Body height 149.86 cm Traci Dennison CNP Work Phone: [facility] Work Phone: 07-17-2021 10:36-0400 Body mass index (BMI) [Ratio] 28.5 kg/m2 Traci Dennison CNP Work Phone: [facility] Work Phone: 07-17-2021 10:36-0400 Body surface area Derived from formula 1.59 m2 Traci Dennison CNP Work Phone: [facility] Work Phone: 07-17-2021 10:36-0400 Body surface area Derived from formula 1.6 m2 Traci Dennison CNP Work Phone: [facility] Work Phone: 07-17-2021 10:36-0400 Body temperature 98.7 [degF] Traci Dennison CNP Work Phone: [facility] Work Phone: 07-17-2021 10:36-0400 Body weight 64.05 kg Traci Dennison CNP Work Phone: [facility] Work Phone: 07-17-2021 10:36-0400 Diastolic blood pressure 76 mm[Hg] Traci Dennison CNP Work Phone: [facility] Work Phone: 07-17-2021 10:36-0400 Heart rate 75 /min Traci Dennison CNP Work Phone: [facility] Work Phone: 07-17-2021 10:36-0400 Heart Rate Rhythm 1 1 Traci Dennison CNP Work Phone: [facility] Work Phone: 07-17-2021 10:36-0400 SaO2% (BldA) [Mass fraction] 97 % Traci Dennison CNP Work Phone: [facility] Work Phone: 07-17-2021 10:36-0400 Systolic blood pressure 114 mm[Hg] Traci Dennison ABENA Work Phone: [facility] Work Phone: 07-03-2021 11:15-0400 Respiratory rate 18 /min Darren House MD [facility] 07-03-2021 10:09-0400 Body temperature 97.81 [degF] Darren House MD [facility] 07-03-2021 10:09-0400 Diastolic blood pressure 85 mm[Hg] Darren House MD [facility] 07-03-2021 10:09-0400 Heart rate 87 /min Darren House MD [facility] 07-03-2021 10:09-0400 SaO2% (BldA) [Mass fraction] 100 % Darren House MD [facility] 07-03-2021 10:09-0400 Systolic blood pressure 124 mm[Hg] Darren House MD [facility] 06-06-2021 17:25-0500 Diastolic blood pressure 78 mm[Hg] 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 [facility] 06-06-2021 17:25-0500 Heart rate 72 /min Peggy Thrasher APRN - BLOCK MECHANIC Work Phone: [facility] 06-06-2021 17:25-0500 SaO2% (BldA) [Mass fraction] 98 % Peggy Thrasher APRN - BLOCK MECHANIC Work Phone: [facility] 06-06-2021 17:25-0500 Systolic blood pressure 138 mm[Hg] Peggy Thrasher APRN - BLOCK MECHANIC Work Phone: [facility] 06-06-2021 14:52-0500 Body mass index (BMI) [Ratio] 28.22 kg/m2 Peggy Thrasher APRN - BLOCK MECHANIC Work Phone: [employer] 06-06-2021 14:52-0500 Body temperature 98.4 [degF] Peggy Thrasher APRN - BLOCK MECHANIC [facility] 06-06-2021 14:52-0500 Body weight 61.24 kg 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 Work Phone: [facility] 06-06-2021 14:52-0500 Respiratory rate 16 /min 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 Work Phone: [facility] 04-15-2021 11:16-0500 Body height 149.86 cm Traci Dennison BLOCK MECHANIC Work Phone: [facility] Work Phone: 04-15-2021 11:16-0500 Body mass index (BMI) [Ratio] 29.1 kg/m2 Traci Dennison BLOCK MECHANIC Work Phone: [facility] Work Phone: 04-15-2021 11:16-0500 Body surface area Derived from formula 1.6 m2 Traci Dennison CNP Work Phone: [facility] Work Phone: 04-15-2021 11:16-0500 Body temperature 97.6 [degF] Traci Dennison CNP Work Phone: [facility] Work Phone: 04-15-2021 11:16-0500 Body weight 65.32 kg Traci Dennison CNP Work Phone: [facility] Work Phone: 04-15-2021 11:16-0500 Diastolic blood pressure 72 mm[Hg] Traci Dennison BLOCK MECHANIC Work Phone: [facility] Work Phone: 04-15-2021 11:16-0500 Heart rate 80 /min Traci Dennison BLOCK MECHANIC Work Phone: [facility] Work Phone: 04-15-2021 11:16-0500 Respiratory rate 18 /min Traci Dennison BLOCK MECHANIC Work Phone: [facility] Work Phone: 04-15-2021 11:16-0500 SaO2% (BldA) [Mass fraction] 98 % Traci Dennison BLOCK MECHANIC Work Phone: [facility] Work Phone: 04-15-2021 11:16-0500 Systolic blood pressure 120 mm[Hg] Traci Dennison BLOCK MECHANIC Work Phone: [facility] Work Phone: 04-03-2021 14:04-0500 Body height 149.86 cm Peggy Thrasher CNP Work Phone: [facility] Work Phone: 04-03-2021 14:04-0500 Body mass index (BMI) [Ratio] 28 kg/m2 Peggy Thrasher CNP Work Phone: [facility] Work Phone: 04-03-2021 14:04-0500 Body surface area Derived from formula 1.58 m2 Peggy Thrasher CNP Work Phone: [facility] Work Phone: 04-03-2021 14:04-0500 Body surface area Derived from formula 1.6 m2 Traci Dennison CNP Work Phone: [facility] Work Phone: 04-03-2021 14:04-0500 Body temperature 99.2 [degF] Peggy Thrasher CNP Work Phone: [facility] Work Phone: 04-03-2021 14:04-0500 Body weight 62.96 kg Peggy Thrasher CNP Work Phone: [facility] Work Phone: 04-03-2021 14:04-0500 Diastolic blood pressure 60 mm[Hg] Peggyisis Thrasher BLOCK MECHANIC Work Phone: [facility] Work Phone: 04-03-2021 14:04-0500 Heart rate 92 /min Peggy Thrasher CNP Work Phone: [facility] Work Phone: 04-03-2021 14:04-0500 Respiratory rate 18 /min Peggy Thrasher CNP Work Phone: [facility] Work Phone: 04-03-2021 14:04-0500 SaO2% (BldA) [Mass fraction] 95 % Peggy Thrasher CNP Work Phone: [facility] Work Phone: 04-03-2021 14:04-0500 Systolic blood pressure 110 mm[Hg] Peggy Thrasher CNP Work Phone: [facility] Work Phone: 02-14-2021 10:31-0400 Body height 149.86 cm Peggy Thrasher CNP Work Phone: [facility] Work Phone: 02-14-2021 10:31-0400 Body mass index (BMI) [Ratio] 28.2 kg/m2 Peggy Thrasher CNP Work Phone: [facility] Work Phone: 02-14-2021 10:31-0400 Body surface area Derived from formula 1.58 m2 Peggy Thrasher CNP Work Phone: [facility] Work Phone: 02-14-2021 10:31-0400 Body surface area Derived from formula 1.6 m2 Traci Dennison BLOCK MECHANIC Work Phone: [facility] Work Phone: 02-14-2021 10:31-0400 Body temperature 96.9 [degF] Peggy Thrasher CNP Work Phone: [facility] Work Phone: 02-14-2021 10:31-0400 Body weight 63.41 kg Peggy Thrasher CNP Work Phone: [facility] Work Phone: 02-14-2021 10:31-0400 Diastolic blood pressure 68 mm[Hg] Peggy Thrasher CNP Work Phone: [facility] Work Phone: 02-14-2021 10:31-0400 Heart rate 87 /min Peggy Thrasher CNP Work Phone: [facility] Work Phone: 02-14-2021 10:31-0400 SaO2% (BldA) [Mass fraction] 97 % Peggy Thrasher CNP Work Phone: [facility] Work Phone: 02-14-2021 10:31-0400 Systolic blood pressure 118 mm[Hg] Peggy Thrasher CNP Work Phone: [facility] Work Phone: 02-07-2021 11:47-0400 Body mass index (BMI) [Ratio] 29.26 kg/m2 Serenity Will DO Work Phone: [employer] Work Phone: 02-07-2021 11:47-0400 Body temperature 99.39 [degF] Serenity Will DO Work Phone: [employer] Work Phone: 02-07-2021 11:47-0400 Body weight 63.5 kg Serenity Will DO Work Phone: [employer] Work Phone: 02-07-2021 11:47-0400 Diastolic blood pressure 79 mm[Hg] Serenity Will DO Work Phone: [employer] Work Phone: 02-07-2021 11:47-0400 Heart rate 93 /min Serenity Will [employer] Work Phone: [employer] Work Phone: 02-07-2021 11:47-0400 Respiratory rate 16 /min Serenity Will [employer] Work Phone: [employer] Work Phone: 02-07-2021 11:47-0400 SaO2% (BldA) [Mass fraction] 99 % Serenity Will [employer] Work Phone: [employer] Phone: 02-07-2021 11:47-0400 Systolic blood pressure 123 mm[Hg] Serenity Will [employer] Work Phone: [employer] Phone: 02-05-2021 17:14-0400 Body height 147.3 cm Мария Yee [employer] Work Phone: [employer] Phone: 02-05-2021 17:14-0400 Body mass index (BMI) [Ratio] 28.22 kg/m2 Мария Yee [employer] Work Phone: [employer] Phone: 02-05-2021 17:14-0400 Body temperature 98.6 [degF] Мария Yee [employer] Work Phone: [employer] Phone: 02-05-2021 17:14-0400 Body weight 61.24 kg Мария Yee [employer] Work Phone: [employer] Phone: 02-05-2021 17:14-0400 Diastolic blood pressure 87 mm[Hg] Мария Yee [employer] Work Phone: [employer] Phone: 02-05-2021 17:14-0400 Heart rate 87 /min Мария Yee DO Work Phone: [employer] Work Phone: 02-05-2021 17:14-0400 Respiratory rate 18 /min Мария Yee DO Work Phone: [employer] Work Phone: 02-05-2021 17:14-0400 SaO2% (BldA) [Mass fraction] 99 % Мария Yee DO Work Phone: [employer] Work Phone: 02-05-2021 17:14-0400 Systolic blood pressure 111 mm[Hg] Мария Yee DO Work Phone: [employer] Work Phone: 01-29-2021 14:00-0400 Body height 144.8 cm Jarrod Sofia MD Work Phone: [employer] Work Phone: 01-29-2021 14:00-0400 Body mass index (BMI) [Ratio] 30.3 kg/m2 Jarrodcheryl Sofia MD Work Phone: [employer] Work Phone: 01-29-2021 14:00-0400 Body temperature 99 [degF] Jarrod Sofia MD Work Phone: [employer] Work Phone: 01-29-2021 14:00-0400 Body weight 63.5 kg Jarrod Sofia MD Work Phone: [employer] Work Phone: 01-29-2021 14:00-0400 Diastolic blood pressure 76 mm[Hg] Jarrod Sofia MD Work Phone: [employer] Work Phone: 01-29-2021 14:00-0400 Heart rate 80 /min Jarrod Sofia MD Work Phone: [employer] Work Phone: 01-29-2021 14:00-0400 Respiratory rate 18 /min Jarrod Sofia MD Work Phone: [employer] Work Phone: 01-29-2021 14:00-0400 SaO2% (BldA) [Mass fraction] 99 % Jarrod Sofia MD Work Phone: [employer] Work Phone: 01-29-2021 14:00-0400 Systolic blood pressure 124 mm[Hg] Jarrod Sofia MD Work Phone: [employer] Work Phone: 01-01-2021 13:54-0400 Body height 144.78 cm Peggy Thrasher CNP Work Phone: [facility] Work Phone: 01-01-2021 13:54-0400 Body mass index (BMI) [Ratio] 31.4 kg/m2 Peggy Thrasher CNP Work Phone: [facility] Work Phone: 01-01-2021 13:54-0400 Body surface area Derived from formula 1.57 m2 Peggy Thrasher CNP Work Phone: [facility] Work Phone: 01-01-2021 13:54-0400 Body weight 65.77 kg Peggy Thrasher BLOCK MECHANIC Work Phone: [facility] Work Phone: 11-16-2020 11:18-0400 Diastolic blood pressure 79 mm[Hg] 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 Work Phone: [employer] Work Phone: 11-16-2020 11:18-0400 Systolic blood pressure 107 mm[Hg] 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 Work Phone: [employer] Work Phone: 11-16-2020 11:17-0400 Body temperature 98.6 [degF] 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 Work Phone: [employer] Work Phone: 11-16-2020 11:17-0400 Heart rate 67 /min 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 Work Phone: [employer] Work Phone: 11-16-2020 11:17-0400 Respiratory rate 16 /min 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 Work Phone: [employer] Work Phone: 11-16-2020 11:17-0400 SaO2% (BldA) [Mass fraction] 100 % 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 Work Phone: [employer] Work Phone: 10-08-2020 21:55-0400 Body temperature 97.9 [degF] Narinder Jimenez MD Work Phone: [employer] Work Phone: 10-08-2020 21:54-0400 Diastolic blood pressure 70 mm[Hg] Narinder Jimenez MD Work Phone: [employer] Work Phone: 10-08-2020 21:54-0400 Systolic blood pressure 140 mm[Hg] Narinder Jimenez MD Work Phone: [employer] Work Phone: 10-08-2020 21:53-0400 Heart rate 78 /min Narinder Jimenez MD Work Phone: [employer] Work Phone: 10-08-2020 21:53-0400 Respiratory rate 17 /min Narinder Jimenez MD Work Phone: [employer] Work Phone: 10-08-2020 21:53-0400 SaO2% (BldA) [Mass fraction] 100 % Narinder Jimenez MD Work Phone: [employer] Work Phone: 09-04-2020 15:47-0400 Diastolic blood pressure 65 mm[Hg] Peggy Thrasher 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 [employer] Work Phone: [employer] Work Phone: 09-04-2020 15:47-0400 Heart rate 59 /min Peggy Thrasher 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 [employer] Work Phone: [employer] Work Phone: 09-04-2020 15:47-0400 Respiratory rate 16 /min Peggy Thrasher 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 [employer] Work Phone: [employer] Work Phone: 09-04-2020 15:47-0400 SaO2% (BldA) [Mass fraction] 99 % Peggy [employer] Work Phone: [employer] Work Phone: 09-04-2020 15:47-0400 Systolic blood pressure 102 mm[Hg] Peggy 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 [employer] Work Phone: [employer] Work Phone: 09-04-2020 14:33-0400 Body height 147.3 cm Peggy Thrasher 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 [employer] Work Phone: [employer] Work Phone: 09-04-2020 14:33-0400 Body mass index (BMI) [Ratio] 29.26 kg/m2 Peggy Thrasher 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 [employer] Work Phone: [employer] Work Phone: 09-04-2020 14:33-0400 Body temperature 98.4 [degF] Peggy Thrasher 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 [employer] Work Phone: [employer] Work Phone: 09-04-2020 14:33-0400 Body weight 63.5 kg 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 Work Phone: [facility] Work Phone: 06-18-2020 19:27-0500 Body Temperature 97.9 [degF] Katlin Reaves [facility] Work Phone: 06-18-2020 19:27-0500 BP Diastolic 66 mm[Hg] Katlin Reaves [facility] Work Phone: 06-18-2020 19:27-0500 BP Systolic 123 mm[Hg] Katlin Reaves [facility] Work Phone: 06-18-2020 19:27-0500 Pulse (Heart Rate) 105 /min Katlin Reaves [facility] Work Phone: 06-18-2020 19:27-0500 Pulse Oximetry 99 % Katlin Reaves [facility] Work Phone: 06-18-2020 19:27-0500 Respiratory Rate 17 /min Katlin Reaves [facility] Work Phone: 06-03-2020 18:37-0500 BMI (Body Mass Index) 29.1 kg/m2 [facility] Work Phone: 06-03-2020 18:37-0500 Body Temperature 98.9 [degF] [facility] Work Phone: 06-03-2020 18:37-0500 Body weight 65.32 kg [facility] Work Phone: 06-03-2020 18:37-0500 BP Diastolic 78 mm[Hg] [facility] Work Phone: 06-03-2020 18:37-0500 BP Systolic 108 mm[Hg] [facility] Work Phone: 06-03-2020 18:37-0500 BSA (Body Surface Area) 1.6 m2 [facility] Work Phone: 06-03-2020 18:37-0500 Height 149.86 cm [facility] Work Phone: 06-03-2020 18:37-0500 Pulse (Heart Rate) 79 /min [facility] Work Phone: 06-03-2020 18:37-0500 Pulse Oximetry 98 % [facility] Work Phone: 06-03-2020 18:37-0500 Respiratory Rate 18 /min [facility] Work Phone: 06-03-2020 18:37-0500 SaO2% (BldA) [Mass fraction] 98 % [facility] Work Phone: [facility] Work Phone: 06-01-2020 13:17-0500 BP Diastolic 63 mm[Hg] [facility] Work Phone: 06-01-2020 13:17-0500 BP Systolic 134 mm[Hg] [facility] Work Phone: 06-01-2020 13:17-0500 Pulse Oximetry 100 % [facility] Work Phone: 06-01-2020 12:58-0500 Pulse (Heart Rate) 67 /min [facility] Work Phone: 06-01-2020 12:58-0500 Respiratory Rate 20 /min [facility] Work Phone: 06-01-2020 12:29-0500 BMI (Body Mass Index) 26.26 kg/m2 [facility] Work Phone: 06-01-2020 12:29-0500 Body Temperature 99 [degF] Peggy Schwartz [facility] Work Phone: 06-01-2020 12:29-0500 Body weight 58.97 kg [facility] Work Phone: 03-17-2020 14:15-0500 BP Diastolic 70 mm[Hg] [facility]esh [facility] [place] 03-17-2020 14:15-0500 BP Systolic 103 mm[Hg] Kalpesh [facility] [place] 03-17-2020 14:15-0500 Pulse Oximetry 98 % Kalpesh [facility] [place] 03-17-2020 09:46-0500 BMI (Body Mass Index) 26.26 kg/m2 Kalpesh Schwartz [facility] [place] 03-17-2020 09:46-0500 Body Temperature 98.49 [degF] [facility] [place] [place] 03-17-2020 09:46-0500 Body weight 58.97 kg Kalpesh [facility] [place] 03-17-2020 09:46-0500 Pulse (Heart Rate) 75 /min [facility] [place] [place] 03-17-2020 09:46-0500 Respiratory Rate 18 /min [facility] [place] 01-26-2020 10:59-0400 BMI (Body Mass Index) 20.1 kg/m2 [facility] Work Phone: 01-26-2020 10:59-0400 Body Temperature 99.6 [degF] [facility] Work Phone: 01-26-2020 10:59-0400 Body weight 61.69 kg [facility] Work Phone: 01-26-2020 10:59-0400 BP Diastolic 62 mm[Hg] [facility] Work Phone: 01-26-2020 10:59-0400 BP Systolic 110 mm[Hg] [facility] Work Phone: 01-26-2020 10:59-0400 BSA (Body Surface Area) 1.75 m2 [facility] Work Phone: 01-26-2020 10:59-0400 Flow Rate 0 L/min [facility] Work Phone: 01-26-2020 10:59-0400 Height 175.26 cm [facility] Work Phone: 01-26-2020 10:59-0400 Inhaled Oxygen Concentration 21 % [facility] Work Phone: 01-26-2020 10:59-0400 Pulse (Heart Rate) 85 /min [facility] Work Phone: 01-26-2020 10:59-0400 Pulse Oximetry 99 % [facility] Work Phone: 01-26-2020 10:59-0400 Respiratory Rate 18 /min [facility] Work Phone: 01-24-2020 14:15-0400 BP Diastolic 62 mm[Hg] [facility] Work Phone: 01-24-2020 14:15-0400 BP Systolic 110 mm[Hg] [facility] Work Phone: 01-08-2020 13:09-0400 BMI (Body Mass Index) 27.3 kg/m2 [facility] Work Phone: 01-08-2020 13:09-0400 Body Temperature 97.1 [degF] [facility] Work Phone: 01-08-2020 13:09-0400 Body weight 61.24 kg [facility] Work Phone: 01-08-2020 13:09-0400 BP Diastolic 60 mm[Hg] [facility] Work Phone: 01-08-2020 13:09-0400 BP Systolic 100 mm[Hg] [facility] Work Phone: 01-08-2020 13:09-0400 BSA (Body Surface Area) 1.56 m2 [facility] Work Phone: 01-08-2020 13:09-0400 Height 149.86 cm [facility] Work Phone: 01-08-2020 13:09-0400 Pulse (Heart Rate) 74 /min [facility] Work Phone: 01-08-2020 13:09-0400 Pulse Oximetry 98 % [facility] Work Phone: 01-08-2020 13:09-0400 Respiratory Rate 14 /min [facility] Work Phone: 12-31-2019 01:01-0400 BP Diastolic 48 mm[Hg] [facility] , [place] 12-31-2019 01:01-0400 BP Systolic 115 mm[Hg] [facility] , [place] 12-31-2019 01:01-0400 Pulse (Heart Rate) 71 /min [facility], [place] 12-31-2019 01:01-0400 Pulse Oximetry 100 % [facility] , [place] 12-31-2019 01:01-0400 Respiratory Rate 12 /min [facility] [place] 12-31-2019 00:59-0400 Body Temperature 98.2 [degF] [facility] [place] 12-25-2019 13:07-0400 BMI (Body Mass Index) 26.4 kg/m2 [facility] Work Phone: 12-25-2019 13:07-0400 Body Temperature 97.8 [degF] [facility] Work Phone: 12-25-2019 13:07-0400 Body weight 59.24 kg [facility] Work Phone: 12-25-2019 13:07-0400 BP Diastolic 80 mm[Hg] [facility] Work Phone: 12-25-2019 13:07-0400 BP Systolic 110 mm[Hg] [facility] Work Phone: 12-25-2019 13:07-0400 BSA (Body Surface Area) 1.54 m2 [facility] Work Phone: 12-25-2019 13:07-0400 Height 149.86 cm [facility] Work Phone: 12-25-2019 13:07-0400 Pulse (Heart Rate) 87 /min [facility] Work Phone: 12-25-2019 13:07-0400 Pulse Oximetry 99 % [facility] Work Phone: 12-25-2019 13:07-0400 Respiratory Rate 18 /min [facility] Work Phone: 12-24-2019 22:49-0400 Body Temperature 97 [degF] Jarrod [facility] [place] 12-24-2019 22:49-0400 BP Diastolic 98 mm[Hg] Jarrod [facility] [place] , [place] 12-24-2019 22:49-0400 BP Systolic 144 mm[Hg] Jarrod [facility] , [place] 12-24-2019 22:49-0400 Pulse (Heart Rate) 87 /min Jarrod Sofia [facility], [place] 12-24-2019 22:49-0400 Pulse Oximetry 97 % Jarrodcheryl Sofia [facility] , [place] 12-24-2019 22:49-0400 Respiratory Rate 18 /min Jarordcheryl Schwartz [facility], [place] 12-14-2019 14:21-0400 BP Diastolic 61 mm[Hg] Natan Lopez [facility], [place] 12-14-2019 14:21-0400 BP Systolic 104 mm[Hg] Natan Lopez [facility], [place] 12-14-2019 14:21-0400 Pulse (Heart Rate) 59 /min Natan Schwartz [facility], [place] 12-14-2019 14:21-0400 Respiratory Rate 14 /min Natan Schwartz [facility], [place] 12-14-2019 12:52-0400 Pulse Oximetry 98 % Natan Lopez [facility], [place] 12-14-2019 09:54-0400 BMI (Body Mass Index) 26.26 kg/m2 Natan Lopez [facility] 12-14-2019 09:54-0400 Body Temperature 97.9 [degF] [facility] [place] 12-14-2019 09:54-0400 Body weight 58.97 kg Natan Lopez [facility], [place] 12-14-2019 09:54-0400 Height 149.9 cm [address]an Lopez [facility], [place] 11-29-2019 09:00-0400 BP Diastolic 60 mm[Hg] [facility] [place] 11-29-2019 09:00-0400 BP Systolic 99 mm[Hg] [facility] [place] 11-29-2019 06:33-0400 Pulse Oximetry 100 % [facility] [place] 11-29-2019 06:31-0400 BMI (Body Mass Index) 27.17 kg/m2 Regino [facility], [place] 11-29-2019 06:31-0400 Body Temperature 97.9 [degF] Regino Aguilar [facility], [place] 11-29-2019 06:31-0400 Body weight 58.97 kg Regino Aguilar [facility] , [place] 11-29-2019 06:31-0400 Height 147.3 cm [facility] [place] [place] 11-29-2019 06:31-0400 Pulse (Heart Rate) 76 /min Regino Aguilar [facility], [place] 11-29-2019 06:31-0400 Respiratory Rate 18 /min [facility] [place] 12-30-2018 05:48-0400 Body Temperature 97.39 [degF] Regino Aguilar [facility], [place] 12-30-2018 05:48-0400 BP Diastolic 77 mm[Hg] Regino Maysain [facility] [place] 12-30-2018 05:48-0400 BP Systolic 142 mm[Hg] Regino [facility] , [place] 12-30-2018 05:48-0400 Pulse (Heart Rate) 74 /min Reginokia Aguilar [facility], [place] 12-30-2018 05:48-0400 Pulse Oximetry 99 % [place] 12-30-2018 05:48-0400 Respiratory Rate 12 /min Regino Aguilar [facility], [place] Encounters Encounter Date Encounter Type Care Provider Facility Start: 02-08-2024 End: 02-09-2024 Emergency department patient visit DO Khang Conleyguillaume Work Phone: [facility] Work Phone: Start: 02-08-2024 End: 02-08-2024 Bamboo flowsheet Jana Kramer SUPPORT REPRESENTATIVE Work Phone: [facility] Start: 02-08-2024 End: 02-08-2024 Bamboo flowsheet Jana Kramer SUPPORT REPRESENTATIVE Work Phone: [facility] Start: 02-08-2024 End: 02-08-2024 Office outpatient visit 25 minutes Jana Kramer SUPPORT REPRESENTATIVE Work Phone: [facility] Comment on above: Anxiety and depressi on (CMS/HCC) (Primary Dx); Fatty liver disease, nonalcoholic; Obesity (BMI 30-39.9); Smoker; URI, acute; Bipolar 1 disorder (CMS/HCC) Start: 02-08-2024 End: 02-08-2024 ambulatory JANA AICHHOLZ Not Available Start: 02-01-2024 End: 02-01-2024 ambulatory Mirza Amanda 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-BLOCK MECHANIC Facility:[facility] Start: 01-28-2024 End: 01-28-2024 Bamboo flowsheet Estelita Winkler PA Work Phone: [facility] Start: 01-28-2024 End: 01-28-2024 Bamboo flowsheet Estelitacarrillo Winkler PA Work Phone: [facility] Start: 01-28-2024 End: 01-28-2024 ambulatory ESTELITA Anne WINKLER Not Available Start: 01-28-2024 End: 01-28-2024 Office outpatient visit 15 minutes Estelita Winkler PA Work Phone: [facility] 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) Start: 12-24-2023 End: 12-24-2023 Emergency department patient visit [facility] Start: 12-01-2023 End: 12-01-2023 ambulatory BHARAT BUSTAMANTE Not Available Start: 11-18-2023 End: 11-18-2023 ambulatory BHARAT BUSTAMANTE Not Available Start: 11-11-2023 End: 11-11-2023 ambulatory BHARAT BUSTAMANTE Not Available Start: 11-04-2023 End: 11-04-2023 ambulatory JANA AICHHOLZ Not Available Start: 11-02-2023 End: 11-02-2023 ambulatory SHAKIRA ROBERTSON Not Available Start: 10-18-2023 End: 10-18-2023 ambulatory JANA AICHHOLZ Not Available Start: 10-06-2023 End: 10-06-2023 ambulatory JANA AICHHOLZ Not Available Start: 10-04-2023 End: 10-04-2023 ambulatory SHAKIRA Sheikh LOR-NOSSEK Not Available Start: 09-16-2023 End: 09-16-2023 ambulatory SHAKIRA Sheikh [facility]-NOS[facility]K Not Available Start: 08-17-2023 End: 08-17-2023 ambulatory Jana Palomino Williams 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-BLOCK MECHANIC Facility:[facility] Start: 08-03-2023 ambulatory Jana Palomino Chidiseferinodania spivey 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-BLOCK MECHANIC Facility:[facility] Start: 08-03-2023 End: 08-03-2023 ambulatory Mirza Amanda 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-BLOCK MECHANIC Facility[facility] Start: 07-27-2023 End: 07-27-2023 ambulatory ESTELITA WINKLER Not Available Start: 07-13-2023 End: 07-13-2023 ambulatory 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Cheryl Thrasher Work Phone: [facility] Work Phone: Start: 07-13-2023 End: 07-13-2023 Departed Referred AMIRA Thrasher Work Phone: [facility] Start: 07-13-2023 End: 07-13-2023 ambulatory VALENTIN LUTZO Not Available Start: 07-06-2023 End: 07-06-2023 ambulatory SUELLEN BREWSTER Not Available Start: 06-16-2023 End: 06-16-2023 ambulatory JANA WILLIAMS Not Available Start: 05-24-2023 Bamboo flowsheet Estelita Dunlap ns PA Work Phone: [facility] Start: 05-24-2023 Bamboo flowsheet Estelita L Eyala ns PA Work Phone: [facility] Start: 05-24-2023 End: 05-24-2023 Office outpatient new 45 minutes Estelita Winkler PA Work Phone: [facility] 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) Start: 05-24-2023 End: 05-24-2023 ambulatory ESTELITA WINKLER Not Available Start: 05-12-2023 End: 05-12-2023 ambulatory JANA KRAMER Not Available Start: 04-21-2023 End: 04-21-2023 ambulatory [facility] Start: 04-21-2023 End: 04-23-2023 ambulatory [facility] Start: 03-08-2023 End: 03-08-2023 [facility] visit, estab pt Hannah DALTONOLIVERIO Work Phone: [facility] Work Phone: Start: 03-08-2023 End: 03-08-2023 [facility] visit, estab pt Srinivasa Ed BLOCK MECHANIC Work Phone: [facility] Work Phone: Start: 02-19-2023 End: 02-20-2023 ambulatory [facility] Start: 02-19-2023 End: 02-19-2023 [facility] visit, estab pt Lea SIMPSON-S Work Phone: [facility] Work Phone: Start: 02-19-2023 End: 02-19-2023 ambulatory Srinivasa Ed BLOCK ME[employer] Work Phone: [facility] Work Phone: Start: 02-06-2023 End: 02-06-2023 ambulatory [facility] Start: 02-05-2023 End: 02-05-2023 [facility] visit, estab pt Srinivsaa Ed BLOCK ME[employer]ANIC Work Phone: [facility] Work Phone: Start: 01-28-2023 End: 01-28-2023 Emergency department patient visit [facility] Start: 01-28-2023 End: 01-28-2023 [facility] visit, estab pt Srinivasa Ed BLOCK ME[employer] Work Phone: [facility] Work Phone: Start: 12-31-2022 End: 12-31-2022 [facility] visit, estab pt Srinivasa Ed BLOCK [employer] Work Phone: [facility] Work Phone: Start: 11-30-2022 End: 11-30-2022 Adult health examination Srinivasa Ed KRAFT Work Phone: [facility] Work Phone: Start: 11-30-2022 End: 11-30-2022 FQHC visit, estab pt Srinivasa Jhaveri BLOCK MECHANIC Work Phone: [facility] Work Phone: Start: 09-09-2022 End: 09-09-2022 ambulatory NONE LISTED REQUEST Facility:H1 Start: 08-05-2022 End: 08-06-2022 ambulatory NONE LISTED REQUEST Facility:H1 Start: 07-03-2022 End: 07-03-[address] SUMAN CUETO . Facility:H1 Start: 06-07-2022 End: 06-08-2022 Emergency department patient visit Serenity Will DO Work Phone: [facility] ED Comment on above: Nausea vomiting and diarrhea (Primary Dx) Start: 02-19-2022 End: 02-19-2022 Subsequent hospital visit by physician [facility] [employer] [facility] EKG Comment on above: Palpitations Start: 01-22-2022 End: 01-22-2022 Patient encounter procedure Srinivasa Jhaveri CNP Work Phone: [facility] Work Phone: Start: 01-22-2022 End: 01-22-2022 FQHC visit, estab pt [facility]harat D[facility]az [facility] Work Phone: [facility] Work Phone: Start: 01-22-2022 End: 01-22-2022 Patient encounter procedure Jodie Shannon PHARMD Work Phone: [facility] Work Phone: Start: 01-20-2022 End: 01-20-2022 ambulatory VICK NASIMA Facility:H1 Start: 01-19-2022 End: 01-19-2022 ambulatory VICK NASIMA Facility:H1 Start: 12-22-2021 End: 12-24-2021 Subsequent hospital visit by physician [facility] Medicine Comment on above: Arrived Diarrhea, unspecifie d type Start: 12-11-2021 End: 12-11-2021 Subsequent hospital visit by physician Traci Dennison APRN - BLOCK MECHANIC Work Phone: [facility] Start: 12-11-2021 End: 12-11-2021 General Srinivasa Jhaveri BLOCK MECHANIC Work Phone: [facility] Work Phone: Start: 12-11-2021 End: 12-11-2021 FQHC visit, estab pt Bharat Díaz LPCC-S Work Phone: [facility] Work Phone: Start: 12-11-2021 End: 12-11-2021 FQHC visit, estab pt Bharat Díaz LPCC-S Work Phone: [facility] Work Phone: Start: 12-08-2021 End: 12-08-2021 Subsequent hospital visit by physician Traci Dennison APRN - BLOCK MECHANIC Work Phone: [facility] Laboratory Start: 11-25-2021 End: 11-25-2021 FQHC visit, estab pt Bharat Díaz LPCC-S Work Phone: [facility] Work Phone: Start: 11-25-2021 End: 11-25-2021 FQHC visit, estab pt Traci Dennison BLOCK MECHANIC Work Phone: [facility] Work Phone: Start: 11-12-2021 End: 11-12-2021 Emergency department patient visit Myrtle Bergeron DO Work Phone: [facility] ED Comment on above: Gastroenteritis (Reba sukhdeep Dx) Start: 09-01-2021 End: 09-01-2021 Emergency department patient visit Traci Dennison 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 - BLOCK MECHANIC Work Phone: [facility] ED Comment on above: Folliculitis (Primar y Dx); Possible exposure to STD Start: 08-13-2021 End: 08-13-2021 FQHC visit, estab pt Traci Dennison BLOCK MECHANIC Work Phone: [facility] Work Phone: Start: 08-11-2021 End: 08-11-2021 Emergency department patient visit Braydon Sierra DO Work Phone: [facility] ED Comment on above: Periumbilical abdomi nal pain (Primary Dx) Start: 07-17-2021 End: 07-17-2021 General Traci Dennison BLOCK MECHANIC Work Phone: [facility] Work Phone: Start: 07-17-2021 End: 07-17-2021 Abnormal finding on evaluation procedure Traci Dennison BLOCK MECHANIC Work Phone: [facility] Work Phone: Start: 07-17-2021 End: 07-17-2021 Adult health examination Traci Dennison BLOCK MECHANIC Work Phone: [facility] Work Phone: Start: 07-17-2021 End: 07-17-2021 FQ visit, estab pt Traci Dennison BLOCK MECHANIC Work Phone: [facility] Work Phone: Start: 07-16-2021 End: 07-16-2021 Telemedicine consultation with patient Traci Dennison CNP Work Phone: [facility] Work Phone: Start: 07-03-2021 End: 07-03-2021 Emergency department patient visit Darren House MD [facility] ED Comment on above: Right shoulder injur y, initial encounter (Primary Dx) Start: 06-06-2021 End: 06-06-2021 Emergency department patient visit 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 Work Phone: [facility] ED Comment on above: Pain of upper abdome n (Primary Dx) Start: 04-15-2021 End: 04-15-2021 FQHC visit, estab pt Farrah Jarrett [facility] Work Phone: [facility] Work Phone: Start: 04-15-2021 End: 04-29-2021 Telemedicine consultation with patient Traci Dennison BLOCK MECHANIC Work Phone: [facility] Work Phone: Start: 04-15-2021 End: 04-29-2021 General Traci Dennison BLOCK MECHANIC Work Phone: [facility] Work Phone: Start: 04-15-2021 End: 04-29-2021 General Tracizachery Dennison BLOCK MECHANIC Work Phone: [facility] Work Phone: Start: 04-15-2021 End: 04-15-2021 FQHC visit, estab pt Traci Dennison BLOCK MECHANIC Work Phone: [facility] Work Phone: Start: 04-03-2021 End: 04-03-2021 FQHC visit, estab pt Hannah ROY Work Phone: [facility] Work Phone: Start: 04-03-2021 End: 04-03-2021 FQHC visit, estab pt Traci Dennison BLOCK MECHANIC Work Phone: [facility] Work Phone: Start: 04-03-2021 End: 04-03-2021 General Farrah Jarrett [facility] Work Phone: [facility] Work Phone: Start: 02-14-2021 End: 02-14-2021 FQHC visit, estab pt Peggy Anna Marie KRAFT Work Phone: [facility] Work Phone: Start: 02-07-2021 End: 02-07-2021 Emergency department patient visit Serenity Will DO Work Phone: [facility] ED Comment on above: Abdominal pain, epig astric (Primary Dx); Non-intractable vomiting with nausea, unspecified vomiting type; Diarrhea, unspecified type Start: 02-05-2021 End: 02-05-2021 Emergency department patient visit Мария Joselito DO Work Phone: [facility] ED Comment on above: Abdominal pain, epig astric (Primary Dx) Start: 01-29-2021 End: 01-29-2021 Emergency department patient visit Jarrod Sofia MD Work Phone: [facility] ED Comment on above: Suspected COVID-19 v irus infection (Primary Dx) Start: 01-01-2021 End: 01-01-2021 Telemedicine consultation with patient Traci Dennison ABENA Work Phone: [facility] Work Phone: Start: 11-16-2020 End: 11-16-2020 Emergency department patient visit Peggy Thrasher APRN - BLOCK MECHANIC Work Phone: [facility] ED Comment on above: Injury of right wris t, initial encounter (Primary Dx) Start: 10-08-2020 End: 10-08-2020 Emergency department patient visit Narinder Jimenez MD Work Phone: [facility] ED Comment on above: Infective otitis ext ivette of left ear (Primary Dx); Acute serous otitis media, recurrence not specified, unspecified laterality Start: 09-04-2020 End: 09-04-2020 Emergency department patient visit 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 Work Phone: [facility] ED Comment on above: Abdominal pain, epig astric (Primary Dx) Start: 06-18-2020 End: 06-18-2020 Emergency department patient visit Katlin Reaves Work Phone: [facility] ED Comment on above: Chronic abdominal pa in (Primary Dx) Start: 06-03-2020 End: 06-03-2020 Established patient Farrah Jarrett Work Phone: [facility] Work Phone: Start: 06-03-2020 End: 06-03-2020 Established patient Traci Dennison Work Phone: [facility] Work Phone: Start: 06-02-2020 End: 06-02-2020 Subsequent hospital visit by physician Peggy [facility] Start: 06-01-2020 End: 06-01-2020 Emergency department patient visit Peggy [facility] ED Comment on above: Left upper quadrant abdominal pain (Primary Dx) Start: 03-17-2020 End: 03-17-2020 Emergency department patient visit Kalpesh Dillard Work Phone: [facility] ED Comment on above: Seizure (HCC) (Prima ry Dx); Noncompliance; Chest pain, atypical; Chest pain at rest; Marijuana use Start: 02-29-2020 End: 02-29-2020 Subsequent [facility] Schedule [facility] Covid Screening Comment on above: Viral gastroenteriti s; Suspected COVID-19 virus infection Start: 01-26-2020 End: 01-26-2020 Established patient Traci Dennison Work Phone: [facility] Work Phone: Start: 01-24-2020 End: 01-24-2020 Patient encounter procedure [address] Work Phone: [facility] Work Phone: Start: 01-08-2020 End: 01-08-2020 Established patient Hannah Rivera Work Phone: [facility] Work Phone: Start: 01-08-2020 End: 01-08-2020 Established patient Peggy Thrasher Work Phone: [facility] Work Phone: Start: 01-03-2020 End: 01-03-2020 Patient encounter procedure Poly Oakes Work Phone: [facility] Work Phone: Start: 01-03-2020 Comprehensve oral evaluation Poly Oakes Work Phone: [facility] Work Phone: Start: 12-31-2019 End: 12-31-2019 Emergency department patient visit Reginokia Maysain Work Phone: [facility] ED Comment on above: Cellulitis of right foot (Primary Dx) Start: 12-26-2019 End: 12-28-2019 Subsequent hospital visit by physician Shanda Dodson Dr Room 2 [facility] Laboratory Comment on above: Chest pain on breath ing Start: 12-25-2019 End: 12-25-2019 Established patient Hannah Rivera Work Phone: [facility] Work Phone: Start: 12-24-2019 End: 12-25-2019 Emergency department patient visit Jarrodcheryl Sofia Work Phone: [facility] ED Comment on above: Strain of lumbar reg ion, initial encounter (Primary Dx) Start: 12-14-2019 End: 12-14-2019 Emergency department patient visit Natan Lopez [facility] ED Comment on above: Non-surgical abdomin al pain (Primary Dx) Start: 11-29-2019 End: 11-29-2019 Emergency department patient visit Regino Zachery Jeff Work Phone: [facility] ED Comment on above: Left lower quadrant abdominal pain (Primary Dx); Abdominal pain, unspecified abdominal location; Hydrosalpinx Start: 12-30-2018 End: 12-30-2018 Emergency department patient visit Regino Zachery Jeff Work Phone: [facility] ED Comment on above: Viral URI with cough (Primary Dx) Procedures Date Procedure Procedure Detail Performing Clinician Start: 03-08-2023 Most recent diastolic blood pressure < 80 mm hg Srinivasa Jhaveri ABENA Work Phone: Start: 03-08-2023 Most recent systolic blood pressure <130 mm hg Srinivasa Jhaveri BLOCK MECHANIC Work Phone: Start: 03-08-2023 Psychotherapy w/patient 30 minutes Hannah Rivera [facility] Work Phone: Start: 02-19-2023 Current tobacco smoker Srinivasa Jhaveri ABENA Work Phone: Start: 02-19-2023 Most recent diastolic blood pressure 80-89 mm hg Srinivasa Boycealicia KRAFT Work Phone: Start: 02-19-2023 Most recent systolic blood pressure <130 mm hg Srinivasa Jhaveri BLOCK MECHANIC Work Phone: Start: 02-19-2023 Psychotherapy w/patient 30 minutes Lea DALTONW-S Work Phone: Start: 02-19-2023 Pt scrnd tobacco use rcvd tobacco cessation talk Srinivasa Jhaveri BLOCK MECHANIC Work Phone: Start: 02-19-2023 Urnls dip stick/tablet rgnt non-auto w/o micrscp Srinivasamarshall Jhaveri ABENA Work Phone: Start: 01-28-2023 Current tobacco smoker Srinivasa Boycealicia KRAFT Work Phone: Start: 01-28-2023 Ketorolac tromethamine inj Srinivasa Edalicia KRAFT Work Phone: Start: 01-28-2023 Most recent diastolic blood pressure < 80 mm hg Srinivasa Jhaveri CNP Work Phone: Start: 01-28-2023 Most recent systolic blood pressure <130 mm hg Srinivasa Ed KRAFT Work Phone: Start: 01-28-2023 Pt scrnd tobacco use rcvd tobacco cessation talk Srinivasa Boycealicia KRAFT Work Phone: Start: 12-31-2022 Asthma Control Test/Baseline Evaluation Srinivasamarshall Jhaveri CNP Work Phone: Start: 12-31-2022 Most [...] Gastric emptying imaging study Mirza Amanda APRN [facility] Work Phone: Start: 12-11-2021 Current tobacco smoker Srinivasa Jhaveri [facility] Work Phone: Start: 12-11-2021 Most recent diastolic blood pressure < 80 mm hg Srinivasa Jhaveri [facility] Work Phone: Start: 12-11-2021 Most recent systolic blood pressure <130 mm hg Srinivasa Jhaveri [facility] Work Phone: Start: 12-11-2021 Psychotherapy w/patient 30 minutes Bharat Díaz [facility] Work Phone: Start: 12-11-2021 Pt scrnd tobacco use rcvd tobacco cessation talk Srinivasa Jhaveri [facility] Work Phone: Start: 12-11-2021 Urnls dip stick/tablet rgnt non-auto w/o micrscp Srinivasa Jhaveri [facility] Work Phone: Start: 12-08-2021 Toxin/antitoxin assay tissue culture Mirza Amanda APRN [facility] Work Phone: Start: 11-25-2021 Most recent diastolic blood pressure 80-89 mm hg Traci Dennison [facility] Work Phone: Start: 11-25-2021 Most recent systolic blood pressure <130 mm hg Traci Dennison [facility] Work Phone: Start: 11-25-2021 Psychotherapy w/patient 30 minutes Bharat Díaz [facility] Work Phone: Start: 11-25-2021 Urnls dip stick/tablet rgnt non-auto w/o micrscp Traci Dennison [facility] Work Phone: Start: 11-12-2021 Urnls dip stick/tablet reagent auto microscopy Myrtle Maciasbal DO Work Phone: Start: 11-12-2021 Ct abdomen & pelvis w/contrast material Myrtle Maciasbal DO Work Phone: Start: 11-12-2021 COVID-19, RAPID Myrtle Dede Bergeron DO Work Phone: Start: 11-12-2021 Comprehensive metabolic panel Myrtle Bergeron DO Work Phone: Start: 09-01-2021 Urine test visual color cmprsn meths Narinder Jimenez MD Work Phone: Start: 09-01-2021 Urnls dip stick/tablet reagent auto microscopy Narinder Jimenez MD Work Phone: Start: 08-11-2021 Urnls dip stick/tablet rgnt auto w/o microscopy Braydon Dede Sierra DO Work Phone: Start: 08-11-2021 COVID-19, RAPID Braydon Sierra DO Work Phone: Start: 08-11-2021 End: 08-11-2021 Iaadiadoo influenza Braydon Sierra DO Work Phone: Start: 08-11-2021 Comprehensive metabolic panel Braydon Sierra DO Work Phone: Start: 07-17-2021 Hyperlipidemia screening Visit For: Screening Exam Lipoid Disorders Traci Dennison [facility] Work Phone: Start: 07-17-2021 Iaadiadoo streptococcus group a Traci Dennison [facility] Work Phone: Start: 07-17-2021 Most recent diastolic blood pressure < 80 mm hg Traci Dennison BLOCK MECHANIC Work Phone: Start: 07-17-2021 Most recent systolic blood pressure <130 mm hg Traci Dennison [facility] Work Phone: Start: 07-03-2021 End: 07-03-2021 Radex [...] blood pressure < 80 mm hg Traci Juma KRAFT Work Phone: Start: 04-15-2021 Most recent systolic blood pressure <130 mm hg Traci Juma KRAFT Work Phone: Start: 04-15-2021 Psychotherapy w/patient 30 minutes Farrah Jarrett [facility] Work Phone: Start: 04-10-2021 Gastroenterology Traci Dennison BLOCK MECHANIC Work Phone: Start: 04-09-2021 Psychotherapy w/patient 30 minutes Farrah Jarrett [facility] Work Phone: Start: 04-03-2021 Most recent diastolic blood pressure < 80 mm hg Traci Dennison BLOCK MECHANIC Work Phone: Start: 04-03-2021 Most recent systolic blood pressure <130 mm hg Traci Juma KRAFT Work Phone: Start: 04-03-2021 Psychotherapy w/patient 30 minutes Hannah ROY Work Phone: Start: 04-03-2021 Urnls dip stick/tablet rgnt non-auto w/o micrscp Traci Dennison BLOCK MECHANIC Work Phone: Start: 04-03-2021 Venereal disease screening Visit For: Screening Exam Std Tracizachery Dennison BLOCK MECHANIC Work Phone: Start: 02-14-2021 Antibody hiv-1&hiv-2 single result Peggy Thrasher BLOCK MECHANIC Work Phone: Start: 02-14-2021 Current tobacco smoker Peggy Thrasher CNP Work Phone: Start: 02-14-2021 Most recent diastolic [...] Start: 02-07-2021 Hepatic function panel Serenity Pineda Suman GARCIA Work Phone: Start: 02-07-2021 Urinalysis microscopic only Serenity Will DO Work Phone: Start: 02-07-2021 Urnls dip stick/tablet rgnt auto w/o microscopy Serenity Miriam Suman GARCIA Work Phone: Start: 02-05-2021 Ecg routine ecg w/least 12 lds w/i&r Мария Yee DO Work Phone: Start: 02-05-2021 Assay of lipase Мария Yee DO Work Phone: Start: 02-05-2021 Lactate [Moles/volume] in Serum or Plasma Мария Yee DO Work Phone: Start: 11-16-2020 End: 11-16-2020 Radex forearm 2 views Kalpesh Burris Work Phone: Start: 09-04-2020 Radiologic exam abdomen 1 view Kirk Barlow PA-C Work Phone: Start: 09-04-2020 Us abdominal real time w/image limited Kirk Barlow PA-C Work Phone: Start: 09-04-2020 Assay of amylase Kirk Dayton Yen PA- Work Phone: Start: 09-04-2020 Urinalysis microscopic only Kirk Dayton Darrick [facility] PA-C Work Phone: Start: 09-04-2020 Urnls dip stick/tablet rgnt auto w/o microscopy Kirk Dayton Yen PA- Work Phone: Start: 06-03-2020 Psychotherapy w/patient 30 [...] 03-17-2020 Radiologic exam chest single view Kalpesh Dillard Work Phone: Start: 03-17-2020 Assay of troponin [...] Peggy Thrasher Start: 12-25-2019 BIPOLAR DISORDER NOS Peggy Anna Marie Start: 12-25-2019 DEPRESSION Peggy Thrasher Start: 12-25-2019 EPILEPSY Peggy Thrasher Start: 12-25-2019 Hernia repair Peggy Thrasher Start: 12-25-2019 KERATITIS FOLLICULARIS (DARIER'S DISEASE) Peggy Anna Marie Start: 12-25-2019 Lig/trnsxj flp tube abdl/vag appr uni/bi Peggy Thrasher Start: 12-25-2019 Ligation of fallopian tube Peggy Thrasher Start: 12-25-2019 OVARIAN CYST Peggy Thrasher Start: 12-25-2019 POST-TRAUMATIC STRESS DISORDER Peggy Thrasher Start: 12-25-2019 PSYCHIATRIC DISORDERS Peggy Thrasher Start: 12-25-2019 Psychotherapy w/patient 30 minutes Hannah Rivera Work Phone: Start: 12-25-2019 SCHIZOPHRENIA Peggy Anna Marie Start: 12-25-2019 Surgical procedure Peggy Thrasher Start: 12-25-2019 Tonsillectomy Peggy Thrasher Start: 12-25-2019 Tonsillectomy & adenoidectomy Peggy Anna Marie Start: 12-25-2019 Tonsillectomy and adenoidectomy Peggy Thrasher Start: 12-25-2019 Tonsillectomy primary/secondary Peggy Thrasher Start: 12-25-2019 Unlisted procedure abdomen peritoneum & omentum Peggy Thrasher Start: 12-24-2019 Radex spine lumbosacral 2/3 views Jarrod E Eiyasmin Work Phone: Start: 12-24-2019 Radex spine thoracic 2 views Jarrod E Eitches Work Phone: Start: 12-24-2019 Radiologic examination pelvis 1/2 views Jarrod E Bismark Work Phone: Start: 12-14-2019 Us transvaginal Natan cooper Start: 12-14-2019 Ct abdomen & pelvis w/contrast material Natan Espinosapatrick Start: 12-14-2019 Basic metabolic panel calcium total Natan Hallzpatrick Start: 12-14-2019 Blood count complete auto&auto difrntl wbc Natan Hallzpatrick Start: 12-14-2019 Urnls dip stick/tablet reagent auto microscopy Natan Hallzpatrick Start: 11-29-2019 Us transvaginal Jarrod E Eitches Work Phone: Start: 11-29-2019 Ct abdomen & pelvis w/contrast material Regino A Jeff Work Phone: Start: 11-29-2019 Urnls dip stick/tablet rgnt auto w/o microscopy Regino A Jeff Work Phone: Start: 11-29-2019 Assay of lipase Regino A ideeli Work Phone: Start: 11-29-2019 Blood count complete auto&auto difrntl wbc Regino A Jeff Work Phone: Start: 11-29-2019 Gonadotropin chorionic qualitative Regino A Jeff Work Phone: Start: 12-30-2018 Radiologic exam chest 2 views Regino A ideeli Work Phone: Plan of Treatment Date Care Activity Detail Author Start: 01-29-2025 End: 01-29-2025 Patient encounter procedure 01/29/2025 9:00 AM EDT Office Visit [facility] [address] [place] [phone] Estelita Winkler, PA [address] [place] [address] [facility] Start: 03-30-2024 End: 03-30-2024 Patient encounter procedure 03/30/2024 9:40 AM EST Office Visit [facility] [address] [place] [phone] Jana Kramer NP [address] [place] [phone] [facility] Start: 03-08-2024 End: 03-08-2024 Patient encounter procedure 03/08/2024 10:00 AM EST Office Visit [facility] [address] [place] [address] Jana Kramer, SUPPORT REPRESENTATIVE [address] [place] [address] [facility] Start: 02-10-2024 Influenza vaccination Influenza Vaccine (#1) [facility] Comment on above: Postponed from 12/12/2023 (Patient Does Not Have Time) Start: 02-08-2024 End: 02-07-2025 CBC W Auto Differential panel - Blood CBC and differential Lab Routine Smoker Expected: 02/08/2024 (Approximate), Expires: 02/07/2025 [facility] Work Phone: Comment on above: Expected: 02/08/2024 (Approximate), Expi res: 02/07/2025 Start: 02-08-2024 End: 02-07-2025 Comprehensive metabolic 2000 panel - Serum or Plasma Comprehensive metabolic panel Lab Routine Fatty liver disease, nonalcoholic Obesity (BMI 30-39.9) Expected: 02/08/2024 (Approximate), Expires: 02/07/2025 [facility] Comment on above: Expected: 02/08/2024 (Approximate), Expi res: 02/07/2025 Start: 02-08-2024 End: 02-07-2025 Lipid 1996 panel - Serum or Plasma Lipid panel Lab Routine Obesity (BMI 30-39.9) Expected: 02/08/2024 (Approximate), Expires: 02/07/2025 [facility] Comment on above: Expected: 02/08/2024 (Approximate), Expi res: 02/07/2025 Start: 02-08-2024 End: 02-07-2025 Thyrotropin [Units/volume] in Serum or Plasma TSH Lab Routine Obesity (BMI 30-39.9) Expected: 02/08/2024 (Approximate), Expires: 02/07/2025 [facility] Comment on above: Expected: 02/08/2024 (Approximate), Expi res: 02/07/2025 Start: 02-08-2024 End: 02-07-2025 Thyroxine (T4) free [Mass/volume] in Serum or Plasma T4, free Lab Routine Obesity (BMI 30-39.9) Expected: 02/08/2024 (Approximate), Expires: 02/07/2025 [facility] Comment on above: Expected: 02/08/2024 (Approximate), Expi res: 02/07/2025 Start: 02-08-2024 End: 02-07-2025 Urinalysis complete panel - Urine Urinalysis with reflex microscopic (clean catch) Lab Routine Smoker Expected: 02/08/2024 (Approximate), Expires: 02/07/2025 [facility] Comment on above: Expected: 02/08/2024 (Approximate), Expi res: 02/07/2025 Start: 02-08-2024 End: 02-08-2024 Patient encounter procedure 02/08/2024 11:30 AM EDT Office Visit [facility] [address] [place] [address] Jana Kramer NP [address] [place] [address] Fatty liver disease, nonalcoholic (Primary Dx); Obesity (BMI 30-39.9); Smoker [facility] Comment on above: Fatty liver disease, nonalcoholic (Prima ry Dx); Obesity (BMI 30-39.9); Smoker Start: 12-20-2023 DTaP/Tdap/Td vaccine (6 - Td or Tdap) DTaP/Tdap/Td vaccine (6 - Td or Tdap) [facility] Start: 09-16-2023 End: 09-16-2023 Patient encounter procedure 09/16/2023 10:00 AM EDT Office [facility] [address] [facility] [address] [place] [address] Shakira Robertson, 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-PHARMACEUTICAL WORKER [address] [facility] [address] [place] [address] [facility] Start: 07-27-2023 End: 07-27-2023 Patient encounter procedure 07/27/2023 9:00 AM EDT Office Visit [facility] [address] [place] [phone] Estelita Winkler PA [address] [place] [address] [facility] Start: 06-28-2023 End: 06-28-2023 Patient encounter procedure 06/28/2023 9:50 AM EDT Office Visit [facility] [address] [place] [phone] Estelita Winkler PA [address] [place] [address] [facility] Start: 06-16-2023 End: 06-16-2023 Patient encounter procedure 06/16/2023 9:20 AM EST Office Visit [facility] [address] [place] [address] Jana Kramer NP [address] [place] [address] [facility] Start: 05-24-2023 End: 05-24-2023 Patient encounter procedure 05/24/2023 11:20 AM EST Office Visit [facility] [address] [place] [address] Estelita Winkler PA [address] [place] [address] Arrived [facility] Comment on above: Arrived Start: 04-21-2023 End: 04-21-2023 Patient encounter procedure 04/21/2023 Office Visit Urology [facility] Start: 04-13-2023 FQHC visit, estab pt Medical Established Patient [facility] Work Phone: Start: 03-21-2023 BD Affirm [facility] Start: 03-08-2023 End: 03-08-2023 Patient education based on identified need BHP offered active and supportive listening. ~BHP discussed coping skills and supports to implement in daily routine. BHP discussed community resources that may be able to help. ~BHP discussed online and community resources to contact for psychaitry [facility] Start: 03-08-2023 FQHC visit, estab pt Medical Established Patient [facility] Work Phone: Start: 03-08-2023 End: 03-08-2023 Patient education based on identified need [facility] Start: 03-07-2023 [facility] Start: 02-19-2023 End: 02-19-2023 Patient education based on identified need [facility] Start: 02-05-2023 FQHC visit, estab pt Medical Established Patient [facility] Work Phone: Start: 02-05-2023 End: 02-05-2023 Patient education based on identified need [facility] Start: 01-28-2023 FQHC visit, estab pt Medical Established Patient [facility] Work Phone: Start: 01-28-2023 End: 01-28-2023 Patient education based on identified need [facility] Start: 12-31-2022 FQHC visit, estab pt Medical Established Patient [facility] Work Phone: Start: 12-31-2022 End: 12-31-2022 Patient education based on identified need [facility] Start: 11-30-2022 End: 11-30-2022 Patient education based on identified need [facility] Start: 02-25-2022 End: 02-25-2022 Patient encounter procedure 02/25/2022 Office Visit Urology [facility] Start: 02-21-2022 [facility] Start: 01-22-2022 Urology [facility] Work Phone: Comment on above: Note: Please make a referral to: Start: 01-22-2022 End: 01-22-2022 Patient education based on identified need [facility] Start: 01-15-2022 FQHC visit, estab pt Medical Established Patient [facility] Work Phone: Start: 01-10-2022 [facility] Start: 12-22-2021 End: 12-22-2021 Patient encounter procedure 12/22/2021 Appointment Radiology [facility] Start: 12-22-2021 End: 12-22-2021 Patient encounter procedure 12/22/2021 Appointment Radiology [facility] Start: 12-22-2021 End: 12-22-2021 Patient encounter procedure 12/22/2021 Appointment Radiology [facility] Start: 12-12-2021 Urinalysis Dipstick,In House [facility] Start: 12-11-2021 Influenza vaccination [facility] Start: 12-11-2021 End: 12-11-2021 Patient education based on identified need [facility] Start: 11-25-2021 End: 11-25-2021 Patient education based on identified need [facility] Start: 11-10-2021 Influenza vaccination Flu vaccine (#1) JEEVAN GAMBOA [facility] Start: 09-24-2021 Dental Comp Exam [facility] Work Phone: Start: 09-12-2021 US Abdominal Complete ([id number]) [facility] Start: 08-27-2021 FQHC visit, estab pt Medical Established Patient [facility] Work Phone: Start: 08-13-2021 End: 08-13-2021 Patient education based on identified need [facility] Start: 07-24-2021 CBC W Auto Differential panel - Blood [facility] Start: 07-17-2021 End: 07-17-2021 Patient education based on identified need [facility] Start: 05-27-2021 Dental Comp Exam [facility] Work Phone: Start: 05-06-2021 SARS-CoV-2, EVELIA [facility] Start: 05-03-2021 [facility] Start: 05-02-2021 FQHC visit, estab pt Medical Established Patient [facility] Work Phone: Start: 04-29-2021 COVID Drive up Testing [facility] Work Phone: Start: 04-15-2021 FQHC visit, estab pt Medical Established Patient [facility] Work Phone: Start: 04-15-2021 End: 04-15-2021 Patient education based on identified need [facility] Start: 04-10-2021 FQHC visit, estab pt Medical Established Patient [facility] Work Phone: Start: 04-09-2021 End: 04-09-2021 [...] have stopped; reports voices were not commanfing [facility] Start: 04-03-2021 Psychiatry [facility] Work Phone: Comment on above: Note: Please make a referral to: Start: 04-03-2021 End: 04-03-2021 Patient education based on identified need [facility] Start: 03-16-2021 Stool PCR Panel (STLPCR) [facility] Start: 02-14-2021 End: 02-14-2021 Patient education based on identified need [facility] Start: 12-11-2020 Influenza vaccination Flu vaccine (#1) [facility] Start: 06-03-2020 End: 06-03-2020 Patient education based on identified need Explored current symptoms and stressors. Educaated patient re importance of counseling and provided brief review of EMDR treatment. ~Encouraged patient to engage in ongoing counseling. ~ [facility] Start: 06-03-2020 End: 06-03-2020 Patient education based on identified need [facility] Start: 06-03-2020 Gastroenterology [facility] Work Phone: Comment on above: Note: Please make a referral to: Start: 06-01-2020 End: 06-01-2021 C DIFF TOXIN/ANTIGEN [facility] Work Phone: Comment on above: 48 HRS for 48 Hours starting 05/14 until 06/01/2020 Expected: 06/01/2020 , Expires: 06/01/2021 Start: 06-01-2020 End: 06-29-2020 Giardia / Cryptosporidum antigens [facility] Work Phone: Comment on above: One Time for 1 Occurrences starting 05/14 until 06/01/2020 Expected: 06/01/2020 , Expires: 06/29/2020 Start: 2020 Screening for malignant neoplasm of cervix [facility] Start: 02-07-2020 Prophy [facility] Work Phone: Start: 01-24-2020 [facility] Work Phone: Start: 01-08-2020 End: 01-08-2020 Patient education based on identified need [facility] Start: 01-08-2020 End: 01-08-2020 Provider instructions for treatment Intervention and counseling on cessation of tobacco use, 3-10 minutes [facility] Start: 01-08-2020 Medical Established Patient [facility] Work Phone: Start: 01-03-2020 Dental Comp Exam [facility] Work Phone: Start: 01-01-2020 Lipid 1996 panel [facility] Work Phone: Start: 12-25-2019 End: 12-25-2019 Patient education based on identified need [facility] Start: 12-12-2019 Influenza vaccination Flu vaccine (#1) [place], [place] Start: 12-11-2018 Influenza vaccination Flu vaccine (#1) [place] Start: 2011 Cervical cancer screen Cervical cancer screen [place], [place] Start: 2011 Screening for malignant neoplasm of cervix [facility] Start: 2009 DTaP/Tdap/Td vaccine (1 - Tdap) DTaP/Tdap/Td vaccine (1 - Tdap) [facility] Start: 2008 Hepatitis C screening Hepatitis C screen [facility] Start: 2003 Varicella Vaccine (1 of 2 - 13+ 2-dose series) Varicella Vaccine (1 of 2 - 13+ 2-dose series) [place] Start: 2002 COVID-19 Vaccine (1) COVID-19 Vaccine (1) [facility] Work Phone: Start: 2002 Depression Screen Depression Screen [facility] Start: 1996 Pneumococcal 0-64 years Vaccine (1 - PCV) Pneumococcal 0-64 years Vaccine (1 - PCV) [facility] Start: 1996 Pneumococcal 0-64 years Vaccine (1 of 1 - PPSV23) Pneumococcal 0-64 years Vaccine (1 of 1 - PPSV23) [place] Start: 1996 Pneumococcal 0-64 years Vaccine (1 of 2 - PPSV23) Pneumococcal 0-64 years Vaccine (1 of 2 - PPSV23) [facility] Start: 1995 COVID-19 Vaccine (1) COVID-19 Vaccine (1) [facility] Start: 1991 Varicella vaccine (1 of 2 - 2-dose childhood series) Varicella vaccine (1 of 2 - 2-dose childhood series) [facility] Start: 1990 COVID-19 Vaccine (#1) COVID-19 Vaccine (#1) [facility] [employer] Start: 1990 Hepatitis C screening Hepatitis C screen [facility] End: 12-08-2021 C. difficile toxin Molecular [facility] [employer] Phone: Comment on above: Once for 1 Occurrences starting 12/09/19 until 12/08/2021 End: 09-01-2021 C.trachomatis N.gonorrhoeae DNA, Urine [facility] [employer] Phone: Comment on above: One Time for 1 Occurrences starting 08/11 until 09/01/2021 End: 12-08-2021 Calprotectin Stool [facility] [email or web address] Phone: Comment on above: Once for 1 Occurrences starting 12/09/19 until 12/08/2021 End: 03-17-2020 COVID-19 COVID-19 Lab Routine One Time for 1 Occurrences starting 03/17/2020 until 03/17/2020 [facility] [place] Comment on above: One Time for 1 Occurrences starting 09/2019 until 03/17/2020 COVID-[place] End: 01-29-2021 COVID-19 COVID-19 Lab Routine One Time for 1 Occurrences starting 01/29/2021 until 01/29/2021 [employer] Phone: Comment on above: One Time for 1 Occurrences starting 01/11 until 01/29/2021 End: 02-29-2020 COVID-19 Ambulatory COVID-19 Ambulatory Lab Routine Viral gastroenteritis Suspected COVID-19 virus infection 1 Occurrences starting 02/29/2020 until 02/29/2020 [facility] [place] Comment on above: 1 Occurrences starting 02/29/2020 until 02/29/2020 COVID-19 Ambulatory COVID-19 Amb ulatory Lab Routine Viral gastroenteritis Suspected COVID-19 virus infection 02/29/2020 2:02 PM EST [employer] [place] CT ABDOMEN PELVIS W IV CONTRAST CT ABDOMEN PELVIS W IV CONTRAST Imaging STAT 12/14/2019 11:17 AM EDT [facility] [place] End: 06-01-2020 Culture, Urine Culture, Urine Microbiology STAT One Time for 1 Occurrences starting 06/01/2020 until 06/01/2020 [employer] Phone: Comment on above: One Time for 1 Occurrences starting 05/14 until 06/01/2020 Culture, Urine Culture, Urine Microbiology STAT 06/01/2020 1:19 PM EST [employer] Phone: End: 09-01-2021 Culture, Urine [facility] [email or web address] Phone: Comment on above: One Time for 1 Occurrences starting 08/11 until 09/01/2021 EKG 12 Lead [employer] [facility] [place], [place] EKG 12 Lead EKG 12 Lead ECG STAT 06/06/2021 3:29 PM EST [employer] Work Phone: End: 12-08-2021 Fecal lactoferrin [facility] Work Phone: Comment on above: Once for 1 Occurrences starting 12/09/19 until 12/08/2021 End: 12-08-2021 Gastrointestinal Panel, Molecular [facility] Work Phone: Comment on above: Once for 1 Occurrences starting 12/09/19 until 12/08/2021 End: 06-02-2020 Giardia / Cryptosporidum antigens Giardia / Cryptosporidum antigens Lab Routine Once for 1 Occurrences starting 06/02/2020 until 06/02/2020 [employer] Work Phone: Comment on above: Once for 1 Occurrences starting 06/02/19 until 06/02/2020 Giardia / Cryptospor idum antigens Giardia / Cryptosporidum antigens Lab Routine 06/02/2020 4:24 PM [employer] Work Phone: End: 12-08-2021 H. pylori antigen [facility] [employer] [place] Phone: Comment on above: Once for 1 Occurrences starting 12/09/19 until 12/08/2021 End: 12-08-2021 O&P PANEL (TRAVEL ASSOCIATED) #1 [facility] Work Phone: Comment on above: Once for 1 Occurrences starting 12/09/19 until 12/08/2021 Patient referral [facility] Work Phone: Immunizations Immunization Date Immunization Notes Care Provider Shayne grayson 03-08-2023 influenza, injectabl e, quadrivalent, preservative free; Translations: [Fluarix] Srinivasa Jhaveri [facility] Work Phone: [facility] Comment on above: Note: Patient tolera lenora well. No signs or symptoms of adverse reactions. Patient waited a minimum of 15 minutes. 03-08-2023 Imm.Admin. over 18 y rs Any Route FIRST Injection Srinivasa Jhaveri ABENA Work Phone: [facility] 03-08-2023 influenza virus vaccine, unspecified formulation Estelita GALAVIZ Work Phone: [facility] 01-22-2022 influenza, seasonal, injectable; Translations: [Flluarix] Traci Dennison CNP Work Phone: [facility] Comment on above: Note: Patient tolera lenora well. No signs or symptoms of adverse reactions. Patient waited a minimum of 15 minutes. 02-01-2020 influenza, injectabl e, quadrivalent, preservative free [facility] Schedule [place], [place] 06-21-2014 influenza, seasonal, injectable Traci Dennison CNP Work Phone: [facility] 12-19-2013 tetanus toxoid, redu jen diphtheria toxoid, and acellular pertussis vaccine, adsorbed Traci Dennison CNP Work Phone: [facility] 11-26-2004 TD(adult) unspecifie d formulation Estelita GALAVIZ Work Phone: [facility] 07-28-1998 hepatitis B vaccine, pediatric or pediatric/adolescent dosage Traci Dennison CNP Work Phone: [facility] 05-20-1998 hepatitis B vaccine, pediatric or pediatric/adolescent dosage Traci Dennison CNP Work Phone: [facility] 01-13-1998 hepatitis B vaccine, pediatric or pediatric/adolescent dosage Traci Dennison CNP Work Phone: [facility] 01-13-1998 measles, mumps and rubella virus vaccine Traci Dennison CNP Work Phone: [facility] 11-01-1995 diphtheria, tetanus toxoids and acellular pertussis vaccine, unspecified formulation Estelita GALAVIZ Work Phone: [facility] 11-01-1995 haemophilus influenz ae type b vaccine, conjugate unspecified formulation Estelita Rachel PA Work Phone: [facility] 11-01-1995 poliovirus vaccine, unspecified formulation Estelita Rachel PA Work Phone: [facility] 02-18-1995 diphtheria, tetanus toxoids and acellular pertussis vaccine, unspecified formulation Estelita Rachel PA Work Phone: [facility] 02-18-1995 haemophilus influenz ae type b vaccine, conjugate unspecified formulation Estelita Rachel PA Work Phone: [facility] 02-18-1995 measles, mumps and rubella virus vaccine Traci Dennison [employer] Work Phone: [facility] 02-18-1995 poliovirus vaccine, unspecified formulation Estelita Rachel PA Work Phone: [facility] 1990 diphtheria, tetanus toxoids and acellular pertussis vaccine, unspecified formulation Estelita Rachel PA Work Phone: [facility] 1990 diphtheria, tetanus toxoids and pertussis vaccine Traci Dennison [employer] Work Phone: [facility] 1990 diphtheria, tetanus toxoids and acellular pertussis vaccine, unspecified formulation Estelita Rachel PA Work Phone: [facility] 1990 haemophilus influenz ae type b vaccine, conjugate unspecified formulation Estelita Rachel PA Work Phone: [facility] 1990 poliovirus vaccine, unspecified formulation Estelita Rachel PA Work Phone: [facility] 1990 diphtheria, tetanus toxoids and acellular pertussis vaccine, unspecified formulation Estelita Rachel PA Work Phone: [facility] 1990 haemophilus influenz ae type b vaccine, conjugate unspecified formulation Estelita Rachel PA Work Phone: [facility] 1990 poliovirus vaccine, unspecified formulation Estelita Rachel PA Work Phone: [facility] Payers Date Payer Category Payer Self-pay 2022 Unknown 2019 Medicaid [facility] MEDICAID [facility] MEDICA[facility] [id number] 2019-Present [address] [place] [id number] 2019 Medicaid (Managed Care) [facility] MEDICAID [id number] 2018 Unknown [facility] HEALTH PLAN [facility] HEALTH PLAN xxxxxxxxxxxxx 2018-Present [phone] [place] [id number] xxxxxxxxxxxxx [id number]. [id number] 1990 Unknown [id number] 2.16.840.1.186208.3.579.2. 593 1990 Unknown [id number] 2.16.840.1.364441.3.579.2. 593 1990 Unknown [id number] 2.16.840.1.078478.3.579.2. 593 1990 Unknown [id number] 2.16.840.1.098468.3.579.2. 593 1990 Unknown [id number] 2.16.840.1.147217.3.579.2. 593 1990 Unknown [id number] 2.16.840.1.821020.3.579.2. 175 1990 Unknown [id number] 2.16.840.1.835654.3.579.2. 175 1990 Unknown [id number] 2.16.840.1.548370.3.579.2. 173 1990 Unknown [id number] 2.16.840.1.351912.3.579.2. 173 1990 Unknown [id number] 2.16.840.1.736641.3.579.2. 173 1990 Unknown [id number] 2.16.840.1.498821.3.579.2. 173 1990 Unknown [id number] 2.16.840.1.924622.3.579.2. 173 1990 Unknown [id number] 2.16.840.1.373568.3.579.2. 196 1990 Unknown [id number] 2.16.840.1.544984.3.579.2. 196 1990 Unknown [id number] 2.16.840.1.639501.3.579.2. 196 1990 Unknown [id number] 2.16.840.1.933921.3.579.2. 196 1990 Unknown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 07/17/2021 Last Documented On 2 8:10AM ; [facility] Visit for: routine adult H&P with abnormal findings Medical Established Patient with Traci Dennison BLOCK MECHANIC 07/17/2021 Last Documented On 2 8:10AM ; [facility] Visit for: screening for lip oid disorders Medical Established Patient with Traci Dennison BLOCK MECHANIC 07/17/2021 Last Documented On 2 8:10AM ; [facility] Vitamin B12 deficiency Medical Establish ed Patient with Traci Juma BLOCK MECHANIC 07/17/2021 Last Documented On 2 8:10AM ; [facility] Vitamin D deficiency Medical Established Patient with Traci Juma BLOCK MECHANIC 07/17/2021 Last Documented On 2 8:10AM ; [facility] Z68.28 - Body mass index [BM I] 28.0-28.9, adult Medical Established Patient with Traci Dennison BLOCK MECHANIC 07/17/2021 Last Documented On 2 8:10AM ; [facility] Allergic rhinitis Telemedicine Establi sted Patient with Traci Juma BLOCK MECHANIC 07/16/2021 Last Documented On 2 8:23AM ; [facility] Exposure to COVID-19 Telemedicine Establ isted Patient with Traci Dennison BLOCK MECHANIC 04/29/2021 Last Documented On 2 8:02PM ; [facility] Bipolar schizoaffective disorder Esta blished Patient with Farrah Jarrett LPCC-S 04/15/2021 Last Documented On 2 1:07PM ; [facility] Anxiety disorder NOS Medical Established Patient with Traci Dennison BLOCK MECHANIC 04/15/2021 Last Documented On 2 9:06AM ; [facility] Assessment of body mass index Medical Es tablished Patient with Traci Dennison BLOCK MECHANIC 04/15/2021 Last Documented On 2 9:06AM ; [facility] Bipolar disorder NOS Medical Established Patient with Traci Dennison BLOCK MECHANIC 04/15/2021 Last Documented On 2 9:06AM ; [facility] Anxiety disorder NOS Telebehavioral H ealth with Farrah Jarrett LPCC-S 04/09/2021 Last Documented On 2 9:05AM ; [facility] Bipolar disorder NOS Telebehavioral H ealth with Farrah Jarrett LPCC-S 04/09/2021 Last Documented On 2 9:05AM ; [facility] Anxiety disorder NOS Established Patient with Hannah Short LISWS 04/03/2021 Last Documented On 1 7:15PM ; [facility] Bipolar I disorder, most rec ent episode, depressed Established Patient with Hannah Short LISWS 04/03/2021 Last Documented On 1 7:15PM ; [facility] Nicotine dependence Established Patient with Hannah Short LISWS 04/03/2021 Last Documented On 1 7:15PM ; [facility] Nicotine dependence Established Patient with Hannah Short LISWS 04/03/2021 Last Documented On 1 7:15PM ; [facility] Undifferentiated schizophren ia per patient reported history Established Patient with Hannah Short LISWS 04/03/2021 Last Documented On 1 7:15PM ; [facility] A home test was negative Medic al Established Patient with Traci Dennison BLOCK MECHANIC 04/03/2021 Last Documented On 1 8:11PM ; [facility] Assessment of body mass index Medical Es tablished Patient with Traci Dennison BLOCK MECHANIC 04/03/2021 Last Documented On 1 8:11PM ; [facility] Epilepsy, not intractable, w ithout status epilepticus Medical Established Patient with Traci Dennison BLOCK MECHANIC 04/03/2021 Last Documented On 1 8:11PM ; [facility] Mixed affective bipolar diso rder, moderate Medical Established Patient with Traci Dennison BLOCK MECHANIC 04/03/2021 Last Documented On 1 8:11PM ; [facility] Urinary tract infection Medical Establis hed Patient with Traci Dennison BLOCK MECHANIC 04/03/2021 Last Documented On 1 8:11PM ; [facility] Visit for: screening for STD Medical Est ablished Patient with Traci Dennison BLOCK MECHANIC 04/03/2021 Last Documented On 1 8:11PM ; [facility] Assessment of visit for: scr eening for human immunodeficiency virus Medical Established Patient with Peggy Thrasher BLOCK MECHANIC 02/14/2021 Last Documented On 1 1:16PM ; [facility] Diabetes Risk Test Score was three score 02/14/2021 Medical Established Patient with Peggy Anna Marie BLOCK MECHANIC 02/14/2021 Last Documented On 1 1:16PM ; [facility] Diarrhea Medical Established Patient with Peggy Thrasher BLOCK [facility] 02/14/2021 Last Documented On 1 1:16PM ; [facility] Nicotine dependence Medical Established Patient with Peggy Anna Marie BLOCK MECHANIC 02/14/2021 Last Documented On 1 1:16PM ; [facility] Z68.28 - Body mass index [BM I] 28.0-28.9, adult Medical Established Patient with Peggy Anna Marie BLOCK [facility]CH[employer] 02/14/2021 Last Documented On 1 1:16PM ; [facility] Cough Telemedicine Establisted Patient with Traci Dennison BLOCK [facility] 01/01/2021 Last Documented On 1 6:31PM ; [facility] Fever Telemedicine Establisted Patient with Traci Dennison [employer] [facility] 01/01/2021 Last Documented On 1 6:31PM ; [facility] Z20.822 - Contact with and (suspected) exposure to COVID-19 Telemedicine Establisted Patient with Traci Dennison BLOCK [facility] 01/01/2021 Last Documented On 1 6:31PM ; [facility] Bipolar I disorder, most rec ent episode, depressed Established Patient with Farrah Hernandezs [facility] 06/03/2020 Last Documented On 1 10:50PM ; [facility] Paranoid schizophrenia per p atient report Established Patient with Farrah Hernandezs [facility] 06/03/2020 Last Documented On 1 10:50PM ; [facility] Post-traumatic stress disord er per patient report Established Patient with Farrah Hernandezs [facility] 06/03/2020 Last Documented On 1 10:50PM ; [facility] 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 Patient with Traci Dennison [facility] 06/03/2020 Last Documented On 1 8:25AM ; [facility] Overweight Medical Established Patient with Traci Dennison [employer] [facility] 06/03/2020 Last Documented On 1 8:25AM ; [facility] Z68.29 - Body mass index [BM I] 29.0-29.9, adult Medical Established Patient with Traci Dennison [employer] [facility] 06/03/2020 Last Documented On 1 8:25AM ; [facility] Anxiety disorder NOS Medical Established Patient with Traci Dennison BLOCK [facility]CHAN[employer] 01/26/2020 Last Documented On 0 7:37PM ; [facility] Bipolar disorder NOS Medical Established Patient with Traci Dennison BLOCK MECHANIC 01/26/2020 Last Documented On 0 7:37PM ; [facility] Infection of tooth Medical Established Patient w ith Traci Dennison [facility] 01/26/2020 Last Documented On 0 7:37PM ; [facility] Z68.20 - Body mass index [BM I] 20.0-20.9, adult Medical Established Patient with Traci Dennison BLOCK [employer]CHANIC 01/26/2020 Last Documented On 0 7:37PM ; [facility] Bipolar I disorder, most rec ent episode, mixed Established Patient with Hannah Short [facility] 01/08/2020 Last Documented On 0 11:49AM ; [facility] Generalized anxiety disorder Establis hed Patient with Hannah Short [facility] 01/08/2020 Last Documented On 0 11:49AM ; [facility] Diabetes Risk Test Score was one score 01/08/2020 Medical Established Patient with Peggy Thrasher BLOCK [facility] 01/08/2020 Last Documented On 0 1:42PM ; [facility] Overweight Medical Established Patient with Peggyisis Thrasher BLOCK MECHANIC 01/08/2020 Last Documented On 0 1:42PM ; [facility] Z68.27 - Body mass index (BM I) 27.0-27.9, adult Medical Established Patient with Peggy Thrasher BLOCK MECHANIC 01/08/2020 Last Documented On 0 1:42PM ; [facility] Bipolar I disorder, most rec ent episode, mixed Established Patient with Hannah Short [facility] 12/25/2019 Last Documented On 0 6:16PM ; [facility] Generalized anxiety disorder Establis hed Patient with Hannah Short [facility] 12/25/2019 Last Documented On 0 6:16PM ; [facility] Overweight Medical Established Patient with Peggy Thrasher BLOCK MECHANIC 12/25/2019 Last Documented On 0 1:54PM ; [facility] Z68.26 - Body mass index (BM I) 26.0-26.9, adult Medical Established Patient with Peggy Thrasher BLOCK MECHANIC 12/25/2019 Last Documented On 0 1:54PM ; [facility] Work Phone: 1(293) 544-377711-27-2023 Progress note* Progress note Date Encounter Last Documented by 03/08/2023 Medical Established Patient Last documented on 03/08/2023; 12:06 PM, Srinivasa Jhaveri BLOCK MECHANIC; [facility] Active Problems & Conditions - F41.9 - [...] No prior encounters. History of Present Illness Melody Fletcher is a 32 year old female. - [...] States that she has stopped going to [facility] and plans on making an appt with [...] BP-Sitting L131/83 mmHg BP Cuff SizeLarge Pulse Rate-Zrnbifc77 bpm Respiration Rate18 per min Lpahqx40 in Rgbcwe217 lbs 2 oz Body Mass Index33.8 kg/m2 Body Surface Area1.7 m2 Oxygen Khgbmbqium53 % O2 DeviceNone (Room Air) BoB244 % Vital Signs: - Systolic blood pressure [...] Will - Declined to Provide Advance Directive [facility]11-27-2023 Progress note* Progress note Date Encounter Last Documented by 03/08/2023 [facility] Patient Last docu mented on 03/08/2023; 3:55 PM, Hannah ROY; [facility] Active Problems & Conditions - [...] Arthritis Chief Complaint The Chief Complaint is: [facility] met with patient to follow-up [...] hospital. Patient reports that she stopped attending [facility] [employer] due to having to see 4 different people when she only wanted to see the psychiatrist. Patient discussed wanting to resume Trileptal as she felt that it kept keep moods more stable. Patient reports that she saw Dr. Dickerson in the past and would be open to returning there. Patient reports no thoughts of harm towards self or others. History of Present Illness Melody Fletcher is a 32 year old female. - [...] and Collaborated with patient and provider: Counseling/Education [facility] offered active and supportive listening. P discussed coping skills and supports to implement in daily routine. P discussed community resources that may be able to help. [facility] discussed online and community resources to contact for psychaitry. Plan Patient to take medications as prescribed and contact the office with any questions or concerns. Patient to implement coping skills and positive supports as discussed. P to follow-up with patient at next visit as scheduled. Advance Directives - Living Will - Declined to Provide Advance Directive [facility]11-27-2023 Instructions Includes: Instructions for all patient encounters Instructions to patient Intervention and counseling on cessation of tobacco use, 3-10 minutes Last Documented On 0 1:15PM ; [facility] Education and Decision Aids were provided during visit for: Discussed nutritional needs teach healthy choices including fruits and vegetables Last Documented On 3 10:43AM ; [facility] Patient education about a pr oper diet Last Documented On 3 10:43AM ; [facility] Discussed concerns about exe rcise : promote physical activity ~ ~Will bridge trileptal, starting at 150mg twice a day ~ ~Will follow up in 1 month for mood, unless you get in with Dr Dickerson then you can cancel appt here Last Documented On 3 12:04PM ; [facility] offered active and suppo rtive listening, normalized emotions and feelings, and processed current stressors. ~P empathized with patient regarding her current stressors and encouraged patient to continue to advocate for herself. Patient was receptive Last Documented On 3 4:25PM ; [facility] Discussed nutritional needs teach healthy choices including fruits and vegetables Last Documented On 3 10:19AM ; [facility] Patient education about a pr oper diet Last Documented On 3 10:19AM ; [facility] Discussed concerns about exe rcise : promote physical activity ~ ~Will do vaginal swab to check for yeast infection ~ ~Encouraged to follow up with OBGYN ~ ~Number given to surgeon that GI referred her to, call number and schedule appt ~ ~Follow up at next scheduled appt Last Documented On 3 12:18PM ; [facility] Not requesting contraception Last Documented On 3 10:23AM ; [facility] Discussed nutritional needs teach healthy choices including fruits and vegetables Last Documented On 3 10:48AM ; [facility] Patient education about a pr oper diet Last Documented On 3 10:48AM ; [facility] Discussed concerns about exe rcise : promote physical activity ~ ~Will give augmentin to cover sinuses and urinary tract ~ ~Will send out urine ~ ~Will give steriod due to patients lung sounds ~ ~Will increase symbicort ~ ~Follow up in one month Last Documented On 3 3:48PM ; [facility] Not requesting contraception Last Documented On 3 10:50AM ; [facility] Discussed nutritional needs teach healthy choices including fruits and vegetables Last Documented On 3 11:01AM ; [facility] Patient education about a pr oper diet Last Documented On 3 11:01AM ; [facility] Discussed concerns about exe rcise : promote physical activity ~ ~Follow up after ER visit Last Documented On 3 8:31PM ; [facility] Not requesting contraception Last Documented On 3 11:03AM ; [facility] Discussed nutritional needs teach healthy choices including fruits and vegetables Last Documented On 3 12:03PM ; [facility] Patient education about a pr oper diet Last Documented On 3 12:03PM ; [facility] Discussed concerns about exe rcise : promote physical activity ~ ~Will keep medication the same Last Documented On 3 4:46AM ; [facility] Not requesting contraception Last Documented On 3 12:04PM ; [facility] Discussed nutritional needs teach healthy choices including fruits and vegetables Last Documented On 3 9:09AM ; [facility] Patient education about a pr oper diet Last Documented On 3 9:09AM ; [facility] Patient education about an a sthma action plan Last Documented On 3 9:44AM ; [facility] Discussed concerns about exe rcise : promote physical activity ~ ~Will restart symbicort ~ ~Follow up in one month for asthma Last Documented On 3 12:28PM ; [facility] Discussed nutritional needs teach healthy choices including fruits and vegetables Last Documented On 2 10:58AM ; [facility] Patient education about a pr oper diet Last Documented On 2 10:58AM ; [facility] Discussed concerns about exe rcise : promote physical activity Last Documented On 2 10:58AM ; [facility] Discussed nutritional needs teach healthy choices including fruits and vegetables Last Documented On 2 11:41AM ; [facility] Patient education about a pr oper diet Last Documented On 2 11:41AM ; [facility] Discussed concerns about exe rcise : promote physical activity Last Documented On 2 11:41AM ; [facility] offered active listening and supportive feedback; normalized emotions and feelings, also provided pt time to process any current stressors ~P discussed benefits of counseling and supported pt in following through with scheduled appt. ~P encouraged pt to continue to make time to implement self-care regimen to assist in improving their mood Last Documented On 2 2:29PM ; [facility] Provided supportive listenin g and reflective feedback; monitored mood, explored symptoms, assessed functioning. ~Discussed medication use/compliance. ~Promoted use of healthy coping mechanisms and positive support, as needed Last Documented On 2 1:25PM ; [facility] Discussed nutritional needs teach healthy choices including fruits and vegetables Last Documented On 2 12:54PM ; [facility] Patient education about a pr oper diet Last Documented On 2 12:54PM ; [facility] Discussed concerns about exe rcise : promote physical activity Last Documented On 2 12:54PM ; [facility] Discussed nutritional needs teach healthy choices including fruits and vegetables Last Documented On 2 11:39AM ; [facility] Patient education about a pr oper diet Last Documented On 2 11:39AM ; [facility] Discussed concerns about exe rcise : promote physical activity Last Documented On 2 11:39AM ; [facility] Discussed nutritional needs teach healthy choices including fruits and vegetables Last Documented On 2 10:29AM ; [facility] Patient education about a pr oper diet Last Documented On 2 10:29AM ; [facility] Discussed concerns about exe rcise : promote physical activity Last Documented On 2 10:29AM ; [facility] Discussed current self-care methods/coping skills. ~Validated and normalized patient's feelings while assisting process recent events. ~Discussed ongoing counseling. ~Discussed lifestyle changes to address chronic illness. ~Supported patient's personal health goals Last Documented On 2 8:50PM ; [facility] Discussed nutritional needs teach healthy choices including fruits and vegetables Last Documented On 2 11:15AM ; [facility] Patient education about a pr oper diet Last Documented On 2 11:15AM ; [facility] Discussed concerns about exe rcise : promote physical activity Last Documented On 2 11:15AM ; [facility] Discussed current self-care methods/coping skills. ~Validated and normalized patient's feelings while assisting process recent events. ~Discussed ongoing mental health services. ~Discussed lifestyle changes to address chronic illness. ~Supported patient's personal health goals. ~ ~Reports feeling better since beginning new meds. Also voices and visual hallucinations have stopped; reports voices were not commanfing Last Documented On 2 8:54PM ; [facility] offered active and suppo rtive listening and normalized emotions and feelings. ~[facility] discussed with patient and significant other in the room with her crisis resources. Patient is agreeable to contacting one of the crisis resources should moods worsen or call 911 or go to the Emergency Room. Patient reports that she can also speak with significant others Mom or go to her [employer] [facility]. ~[facility] and PCP discussed plan to follow-up with psychiatry and counseling and a new referral being sent to [facility]. If patient is not accepted back as a patient with Dr. Dickerson, will look into other resources Last Documented On 1 7:15PM ; [facility] Discussed nutritional needs teach healthy choices including fruits and vegetables Last Documented On 1 1:18PM ; [facility] Patient education about a pr oper diet Last Documented On 1 1:18PM ; [facility] Discussed concerns about exe rcise : promote physical activity Last Documented On 1 1:18PM ; [facility] Discussed nutritional needs teach healthy choices including fruits and vegetables Last Documented On 1 10:37AM ; [facility] Patient education about a pr oper diet Last Documented On 1 10:37AM ; [facility] Discussed concerns about exe rcise : promote physical activity Last Documented On 1 10:37AM ; [facility] Explored current symptoms an d stressors. Educaated patient re importance of counseling and provided brief review of EMDR treatment. ~Encouraged patient to engage in ongoing counseling. ~ Last Documented On 1 10:50PM ; [facility] Discussed nutritional needs teach healthy choices including fruits and vegetables Last Documented On 1 6:53PM ; [facility] Patient education about a pr oper diet Last Documented On 1 6:53PM ; [facility] Discussed concerns about exe rcise : promote physical activity Last Documented On 1 6:53PM ; [facility] provided active listenin g, support and helped patient process through current symptoms and stressors related to mood and irritability. ~[facility] discussed coping skills that patient has tried as well as discussed potential benefit of counseling. ~ ~ Last Documented On 0 11:49AM ; [facility] Discussed nutritional needs teach healthy choices including fruits and vegetables Last Documented On 0 1:15PM ; [facility] Patient education about a pr oper diet Last Documented On 0 1:15PM ; [facility] Patient education about a pr oper diet Last Documented On 0 1:33PM ; [facility] Patient education about meal planning Last Documented On 0 1:33PM ; [facility] Education about changing eat ing habits Last Documented On 0 1:33PM ; [facility] Patient education about high fiber diet Last Documented On 0 1:33PM ; [facility] Patient education about low fat diet Last Documented On 0 1:33PM ; [facility] Patient education about low cholesterol diet Last Documented On 0 1:33PM ; [facility] Patient education about low carbohydrate diet Last Documented On 0 1:33PM ; [facility] Patient education about high protein diet Last Documented On 0 1:33PM ; [facility] Discussed concerns about exe rcise : promote physical activity Last Documented On 0 1:15PM ; [facility] provided active listenin g, support and helped patient process through current symptoms and stressors due to pain, loss of work and low frustration tolerance. ~[facility] discussed coping skills and supports that patient can implement inclduing meditation, mindfulness, and deep breathing activities. [facility] provided resources to patient to work on implementing. ~[facility] discussed with patient re-establishing care for therapy and provided patient with resource list. ~ Last Documented On 0 6:15PM ; [facility] Discussed nutritional needs teach healthy choices including fruits and vegetables Last Documented On 0 1:12PM ; [facility] Patient education about a pr oper diet Last Documented On 0 1:12PM ; [facility] Patient education about a pr oper diet Last Documented On 0 1:46PM ; [facility] Patient education about meal planning Last Documented On 0 1:46PM ; [facility] Education about changing eat ing habits Last Documented On 0 1:46PM ; [facility] Patient education about high fiber diet Last Documented On 0 1:46PM ; [facility] Patient education about low fat diet Last Documented On 0 1:46PM ; [facility] Patient education about low cholesterol diet Last Documented On 0 1:46PM ; [facility] Patient education about low carbohydrate diet Last Documented On 0 1:46PM ; [facility] Patient education about high protein diet Last Documented On 0 1:46PM ; [facility] Discussed concerns about exe rcise : promote physical activity Last Documented On 0 1:12PM ; [facility] Work Phone: [phone]) 583-166011-27-2023 Instructions Includes: Instructions for all patient encounters Instructions to patient Intervention and counseling on cessation of tobacco use, 3-10 minutes Last Documented On 0 1:15PM ; [facility] Education and Decision Aids were provided during visit for: [facility] offered active and suppo rtive listening. ~P discussed coping skills and supports to implement in daily routine. P discussed community resources that may be able to help. ~[facility] discussed online and community resources to contact for psychaitry Last Documented On 3 3:55PM ; [facility] Discussed nutritional needs teach healthy choices including fruits and vegetables Last Documented On 3 10:43AM ; [facility] Patient education about a pr oper diet Last Documented On 3 10:43AM ; [facility] Discussed concerns about exe rcise : promote physical activity ~ ~Will bridge trileptal, starting at 150mg twice a day ~ ~Will follow up in 1 month for mood, unless you get in with Dr Dickerson then you can cancel appt here Last Documented On 3 12:04PM ; [facility] offered active and suppo rtive listening, normalized emotions and feelings, and processed current stressors. ~P empathized with patient regarding her current stressors and encouraged patient to continue to advocate for herself. Patient was receptive Last Documented On 3 4:25PM ; [facility] Discussed nutritional needs teach healthy choices including fruits and vegetables Last Documented On 3 10:19AM ; [facility] Patient education about a pr oper diet Last Documented On 3 10:19AM ; [facility] Discussed concerns about exe rcise : promote physical activity ~ ~Will do vaginal swab to check for yeast infection ~ ~Encouraged to follow up with OBGYN ~ ~Number given to surgeon that GI referred her to, call number and schedule appt ~ ~Follow up at next scheduled appt Last Documented On 3 12:18PM ; [facility] Not requesting contraception Last Documented On 3 10:23AM ; [facility] Discussed nutritional needs teach healthy choices including fruits and vegetables Last Documented On 3 10:48AM ; [facility] Patient education about a pr oper diet Last Documented On 3 10:48AM ; [facility] Discussed concerns about exe rcise : promote physical activity ~ ~Will give augmentin to cover sinuses and urinary tract ~ ~Will send out urine ~ ~Will give steriod due to patients lung sounds ~ ~Will increase symbicort ~ ~Follow up in one month Last Documented On 3 3:48PM ; [facility] Not requesting contraception Last Documented On 3 10:50AM ; [facility] Discussed nutritional needs teach healthy choices including fruits and vegetables Last Documented On 3 11:01AM ; [facility] Patient education about a pr oper diet Last Documented On 3 11:01AM ; [facility] Discussed concerns about exe rcise : promote physical activity ~ ~Follow up after ER visit Last Documented On 3 8:31PM ; [facility] Not requesting contraception Last Documented On 3 11:03AM ; [facility] Discussed nutritional needs teach healthy choices including fruits and vegetables Last Documented On 3 12:03PM ; [facility] Patient education about a pr oper diet Last Documented On 3 12:03PM ; [facility] Discussed concerns about exe rcise : promote physical activity ~ ~Will keep medication the same Last Documented On 3 4:46AM ; [facility] Not requesting contraception Last Documented On 3 12:04PM ; [facility] Discussed nutritional needs teach healthy choices including fruits and vegetables Last Documented On 3 9:09AM ; [facility] Patient education about a pr oper diet Last Documented On 3 9:09AM ; [facility] Patient education about an a sthma action plan Last Documented On 3 9:44AM ; [facility] Discussed concerns about exe rcise : promote physical activity ~ ~Will restart symbicort ~ ~Follow up in one month for asthma Last Documented On 3 12:28PM ; [facility] Discussed nutritional needs teach healthy choices including fruits and vegetables Last Documented On 2 10:58AM ; [facility] Patient education about a pr oper diet Last Documented On 2 10:58AM ; [facility] Discussed concerns about exe rcise : promote physical activity Last Documented On 2 10:58AM ; [facility] Discussed nutritional needs teach healthy choices including fruits and vegetables Last Documented On 2 11:41AM ; [facility] Patient education about a pr oper diet Last Documented On 2 11:41AM ; [facility] Discussed concerns about exe rcise : promote physical activity Last Documented On 2 11:41AM ; [facility] offered active listening and supportive feedback; normalized emotions and feelings, also provided pt time to process any current stressors ~P discussed benefits of counseling and supported pt in following through with scheduled appt. ~P encouraged pt to continue to make time to implement self-care regimen to assist in improving their mood Last Documented On 2 2:29PM ; [facility] Provided supportive listenin g and reflective feedback; monitored mood, explored symptoms, assessed functioning. ~Discussed medication use/compliance. ~Promoted use of healthy coping mechanisms and positive support, as needed Last Documented On 2 1:25PM ; [facility] [facility] needs teach healthy choices including fruits and vegetables Last Documented On 2 12:54PM ; [facility] Patient education about a pr oper diet Last Documented On 2 12:54PM ; [facility] Discussed concerns about exe rcise : promote physical activity Last Documented On 2 12:54PM ; [facility] Discussed nutritional needs teach healthy choices including fruits and vegetables Last Documented On 2 11:39AM ; [facility] Patient education about a pr oper diet Last Documented On 2 11:39AM ; [facility] Discussed concerns about exe rcise : promote physical activity Last Documented On 2 11:39AM ; [facility] Discussed nutritional needs teach healthy choices including fruits and vegetables Last Documented On 2 10:29AM ; [facility] Patient education about a pr oper diet Last Documented On 2 10:29AM ; [facility] Discussed concerns about exe rcise : promote physical activity Last Documented On 2 10:29AM ; [facility] Discussed current self-care methods/coping skills. ~Validated and normalized patient's feelings while assisting process recent events. ~Discussed ongoing counseling. ~Discussed lifestyle changes to address chronic illness. ~Supported patient's personal health goals Last Documented On 2 8:50PM ; [facility] Discussed nutritional needs teach healthy choices including fruits and vegetables Last Documented On 2 11:15AM ; [facility] Patient education about a pr oper diet Last Documented On 2 11:15AM ; [facility] Discussed concerns about exe rcise : promote physical activity Last Documented On 2 11:15AM ; [facility] Discussed current self-care methods/coping skills. ~Validated and normalized patient's feelings while assisting process recent events. ~Discussed ongoing mental health services. ~Discussed lifestyle changes to address chronic illness. ~Supported patient's personal health goals. ~ ~Reports feeling better since beginning new meds. Also voices and visual hallucinations have stopped; reports voices were not commanfing Last Documented On 2 8:54PM ; [facility] offered active and suppo rtive listening and normalized emotions and feelings. ~[facility] discussed with patient and significant other in the room with her crisis resources. Patient is agreeable to contacting one of the crisis resources should moods worsen or call 911 or go to the Emergency Room. Patient reports that she can also speak with significant others Mom or go to her [employer] [facility]. ~[facility] and PCP discussed plan to follow-up with psychiatry and counseling and a new referral being sent to [facility]. If patient is not accepted back as a patient with Dr. Dickerson, will look into other resources Last Documented On 1 7:15PM ; [facility] Discussed nutritional needs teach healthy choices including fruits and vegetables Last Documented On 1 1:18PM ; [facility] Patient education about a pr oper diet Last Documented On 1 1:18PM ; [facility] Discussed concerns about exe rcise : promote physical activity Last Documented On 1 1:18PM ; [facility] Discussed nutritional needs teach healthy choices including fruits and vegetables Last Documented On 1 10:37AM ; [facility] Patient education about a pr oper diet Last Documented On 1 10:37AM ; [facility] Discussed concerns about exe rcise : promote physical activity Last Documented On 1 10:37AM ; [facility] Explored current symptoms an d stressors. Educaated patient re importance of counseling and provided brief review of EMDR treatment. ~Encouraged patient to engage in ongoing counseling. ~ Last Documented On 1 10:50PM ; [facility] Discussed nutritional needs teach healthy choices including fruits and vegetables Last Documented On 1 6:53PM ; [facility] Patient education about a pr oper diet Last Documented On 1 6:53PM ; [facility] Discussed concerns about exe rcise : promote physical activity Last Documented On 1 6:53PM ; [facility] provided active listenin g, support and helped patient process through current symptoms and stressors related to mood and irritability. ~[facility] discussed coping skills that patient has tried as well as discussed potential benefit of counseling. ~ ~ Last Documented On 0 11:49AM ; [facility] Discussed nutritional needs teach healthy choices including fruits and vegetables Last Documented On 0 1:15PM ; [facility] Patient education about a pr oper diet Last Documented On 0 1:15PM ; [facility] Patient education about a pr oper diet Last Documented On 0 1:33PM ; [facility] Patient education about meal planning Last Documented On 0 1:33PM ; [facility] Education about changing eat ing habits Last Documented On 0 1:33PM ; [facility] Patient education about high fiber diet Last Documented On 0 1:33PM ; [facility] Patient education about low fat diet Last Documented On 0 1:33PM ; [facility] Patient education about low cholesterol diet Last Documented On 0 1:33PM ; [facility] Patient education about low carbohydrate diet Last Documented On 0 1:33PM ; [facility] Patient education about high protein diet Last Documented On 0 1:33PM ; [facility] Discussed concerns about exe rcise : promote physical activity Last Documented On 0 1:15PM ; [facility] provided active listenin g, support and helped patient process through current symptoms and stressors due to pain, loss of work and low frustration tolerance. ~[facility] discussed coping skills and supports that patient can implement inclduing meditation, mindfulness, and deep breathing activities. [facility] provided resources to patient to work on implementing. ~[facility] discussed with patient re-establishing care for therapy and provided patient with resource list. ~ Last Documented On 0 6:15PM ; [facility] Discussed nutritional needs teach healthy choices including fruits and vegetables Last Documented On 0 1:12PM ; [facility] Patient education about a pr oper diet Last Documented On 0 1:12PM ; [facility] Patient education about a pr oper diet Last Documented On 0 1:46PM ; [facility] Patient education about meal planning Last Documented On 0 1:46PM ; [facility] Education about changing eat ing habits Last Documented On 0 1:46PM ; [facility] Patient education about high fiber diet Last Documented On 0 1:46PM ; [facility] Patient education about low fat diet Last Documented On 0 1:46PM ; [facility] Patient education about low cholesterol diet Last Documented On 0 1:46PM ; [facility] Patient education about low carbohydrate diet Last Documented On 0 1:46PM ; [facility] Patient education about high protein diet Last Documented On 0 1:46PM ; [facility] Discussed concerns about exe rcise : promote physical activity Last Documented On 0 1:12PM ; [facility] Work Phone: [phone]) 679-593611-12-2023 Instructions Includes: Instructions for all patient encounters Instructions to patient Intervention and counseling on cessation of tobacco use, 3-10 minutes Last Documented On 0 1:15PM ; [facility] Education and Decision Aids were provided during visit for: [facility] offered active and suppo rtive listening, normalized emotions and feelings, and processed current stressors. ~[facility] empathized with patient regarding her current stressors and encouraged patient to continue to advocate for herself. Patient was receptive Last Documented On 3 4:25PM ; [facility] Discussed nutritional needs teach healthy choices including fruits and vegetables Last Documented On 3 10:19AM ; [facility] Patient education about a pr oper diet Last Documented On 3 10:19AM ; [facility] Discussed concerns about exe rcise : promote physical activity ~ ~Will do vaginal swab to check for yeast infection ~ ~Encouraged to follow up with OBGYN ~ ~Number given to surgeon that GI referred her to, call number and schedule appt ~ ~Follow up at next scheduled appt Last Documented On 3 12:18PM ; [facility] Not requesting contraception Last Documented On 3 10:23AM ; [facility] Discussed nutritional needs teach healthy choices including fruits and vegetables Last Documented On 3 10:48AM ; [facility] Patient education about a pr oper diet Last Documented On 3 10:48AM ; [facility] Discussed concerns about exe rcise : promote physical activity ~ ~Will give augmentin to cover sinuses and urinary tract ~ ~Will send out urine ~ ~Will give steriod due to patients lung sounds ~ ~Will increase symbicort ~ ~Follow up in one month Last Documented On 3 3:48PM ; [facility] Not requesting contraception Last Documented On 3 10:50AM ; [facility] Discussed nutritional needs teach healthy choices including fruits and vegetables Last Documented On 3 11:01AM ; [facility] Patient education about a pr oper diet Last Documented On 3 11:01AM ; [facility] Discussed concerns about exe rcise : promote physical activity ~ ~Follow up after ER visit Last Documented On 3 8:31PM ; [facility] Not requesting contraception Last Documented On 3 11:03AM ; [facility] Discussed nutritional needs teach healthy choices including fruits and vegetables Last Documented On 3 12:03PM ; [facility] Patient education about a pr oper diet Last Documented On 3 12:03PM ; [facility] Discussed concerns about exe rcise : promote physical activity ~ ~Will keep medication the same Last Documented On 3 4:46AM ; [facility] Not requesting contraception Last Documented On 3 12:04PM ; [facility] Discussed nutritional needs teach healthy choices including fruits and vegetables Last Documented On 3 9:09AM ; [facility] Patient education about a pr oper diet Last Documented On 3 9:09AM ; [facility] Patient education about an a sthma action plan Last Documented On 3 9:44AM ; [facility] Discussed concerns about exe rcise : promote physical activity ~ ~Will restart symbicort ~ ~Follow up in one month for asthma Last Documented On 3 12:28PM ; [facility] Discussed nutritional needs teach healthy choices including fruits and vegetables Last Documented On 2 10:58AM ; [facility] Patient education about a pr oper diet Last Documented On 2 10:58AM ; [facility] Discussed concerns about exe rcise : promote physical activity Last Documented On 2 10:58AM ; [facility] Discussed nutritional needs teach healthy choices including fruits and vegetables Last Documented On 2 11:41AM ; [facility] Patient education about a pr oper diet Last Documented On 2 11:41AM ; [facility] Discussed concerns about exe rcise : promote physical activity Last Documented On 2 11:41AM ; [facility] offered active listening and supportive feedback; normalized emotions and feelings, also provided pt time to process any current stressors ~[facility] discussed benefits of counseling and supported pt in following through with scheduled appt. ~[facility] encouraged pt to continue to make time to implement self-care regimen to assist in improving their mood Last Documented On 2 2:29PM ; [facility] Provided supportive listenin g and reflective feedback; monitored mood, explored symptoms, assessed functioning. ~Discussed medication use/compliance. ~Promoted use of healthy coping mechanisms and positive support, as needed Last Documented On 2 1:25PM ; [facility] Discussed nutritional needs teach healthy choices including fruits and vegetables Last Documented On 2 12:54PM ; [facility] Patient education about a pr oper diet Last Documented On 2 12:54PM ; [facility] Discussed concerns about exe rcise : promote physical activity Last Documented On 2 12:54PM ; [facility] Discussed nutritional needs teach healthy choices including fruits and vegetables Last Documented On 2 11:39AM ; [facility] Patient education about a pr oper diet Last Documented On 2 11:39AM ; [facility] Discussed concerns about exe rcise : promote physical activity Last Documented On 2 11:39AM ; [facility] Discussed nutritional needs teach healthy choices including fruits and vegetables Last Documented On 2 10:29AM ; [facility] Patient education about a pr oper diet Last Documented On 2 10:29AM ; [facility] Discussed concerns about exe rcise : promote physical activity Last Documented On 2 10:29AM ; [facility] Discussed current self-care methods/coping skills. ~Validated and normalized patient's feelings while assisting process recent events. ~Discussed ongoing counseling. ~Discussed lifestyle changes to address chronic illness. ~Supported patient's personal health goals Last Documented On 2 8:50PM ; [facility] Discussed nutritional needs teach healthy choices including fruits and vegetables Last Documented On 2 11:15AM ; [facility] Patient education about a pr oper diet Last Documented On 2 11:15AM ; [facility] Discussed concerns about exe rcise : promote physical activity Last Documented On 2 11:15AM ; [facility] Discussed current self-care methods/coping skills. ~Validated and normalized patient's feelings while assisting process recent events. ~Discussed ongoing mental health services. ~Discussed lifestyle changes to address chronic illness. ~Supported patient's personal health goals. ~ ~Reports feeling better since beginning new meds. Also voices and visual hallucinations have stopped; reports voices were not commanfing Last Documented On 2 8:54PM ; [facility] offered active and suppo rtive listening and normalized emotions and feelings. ~[facility] discussed with patient and significant other in [...] resources Last Documented On 1 7:15PM ; [facility] Discussed nutritional needs teach healthy choices including fruits and vegetables Last Documented On 1 1:18PM ; [facility] Patient education about a pr oper diet Last Documented On 1 1:18PM ; [facility] Discussed concerns about exe rcise : promote physical activity Last Documented On 1 1:18PM ; [facility] Discussed nutritional needs teach healthy choices including fruits and vegetables Last Documented On 1 10:37AM ; [facility] Patient education about a pr oper diet Last Documented On 1 10:37AM ; [facility] Discussed concerns about exe rcise : promote physical activity Last Documented On 1 10:37AM ; [facility] Explored current symptoms an d stressors. Educaated patient re importance of counseling and provided brief review of EMDR treatment. ~Encouraged patient to engage in ongoing counseling. ~ Last Documented On 1 10:50PM ; [facility] Discussed nutritional needs teach healthy choices including fruits and vegetables Last Documented On 1 6:53PM ; [facility] Patient education about a pr oper diet Last Documented On 1 6:53PM ; [facility] Discussed concerns about exe rcise : promote physical activity Last Documented On 1 6:53PM ; [facility] provided active listenin g, support and helped patient process through current symptoms and stressors related to mood and irritability. ~[facility] discussed coping skills that patient has tried as well as discussed potential benefit of counseling. ~ ~ Last Documented On 0 11:49AM ; [facility] Discussed nutritional needs teach healthy choices including fruits and vegetables Last Documented On 0 1:15PM ; [facility] Patient education about a pr oper diet Last Documented On 0 1:15PM ; [facility] Patient education about a pr oper diet Last Documented On 0 1:33PM ; [facility] Patient education about meal planning Last Documented On 0 1:33PM ; [facility] Education about changing eat ing habits Last Documented On 0 1:33PM ; [facility] Patient education about high fiber diet Last Documented On 0 1:33PM ; [facility] Patient education about low fat diet Last Documented On 0 1:33PM ; [facility] Patient education about low cholesterol diet Last Documented On 0 1:33PM ; [facility] Patient education about low carbohydrate diet Last Documented On 0 1:33PM ; [facility] Patient education about high protein diet Last Documented On 0 1:33PM ; [facility] Discussed concerns about exe rcise : promote physical activity Last Documented On 0 1:15PM ; [facility] provided active listenin g, support and helped patient process through current symptoms and stressors due to pain, loss of work and low frustration tolerance. ~[facility] discussed coping skills and supports that patient can implement inclduing meditation, mindfulness, and deep breathing activities. [facility] provided resources to patient to work on implementing. ~[facility] discussed with patient re-establishing care for therapy and provided patient with resource list. ~ Last Documented On 0 6:15PM ; [facility] Discussed nutritional needs teach healthy choices including fruits and vegetables Last Documented On 0 1:12PM ; [facility] Patient education about a pr oper diet Last Documented On 0 1:12PM ; [facility] Patient education about a pr oper diet Last Documented On 0 1:46PM ; [facility] Patient education about meal planning Last Documented On 0 1:46PM ; [facility] Education about changing eat ing habits Last Documented On 0 1:46PM ; [facility] Patient education about high fiber diet Last Documented On 0 1:46PM ; [facility] Patient education about low fat diet Last Documented On 0 1:46PM ; [facility] Patient education about low cholesterol diet Last Documented On 0 1:46PM ; [facility] Patient education about low carbohydrate diet Last Documented On 0 1:46PM ; [facility] Patient education about high protein diet Last Documented On 0 1:46PM ; [facility] Discussed concerns about exe rcise : promote physical activity Last Documented On 0 1:12PM ; [facility] Work Phone: [phone]) [phone] History general Narrative - Reported Includes: Medical History in patient's chart Description Last Updated No previous suicide attempt 02/20/2023 Last Documented On 3 4:27PM ; [facility] No Safety Measures 02/20/2023 Last Documented On 3 4:27PM ; [facility] Not planning to have a baby in the next 12 months 11/30/2022 Last Documented On 3 12:28PM ; [facility] History of anxiety disorder NOS 07/18/19 22 Last Documented On 2 8:10AM ; [facility] No previous hospitalizations 04/03/2021 Last Documented On 1 8:11PM ; [facility] History of complete colonoscopy 04/03/20 21 Last Documented On 1 8:11PM ; [facility] Epilepsy 12/25/2019 Last Documented On 0 1:54PM ; [facility] 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 Last Documented On 0 1:54PM ; [facility] Ovarian cyst 12/25/2019 Last Documented On 0 1:54PM ; [facility] Post-traumatic stress disorder 0 Last Documented On 0 1:54PM ; [facility] History of asthma 12/25/2019 Last Documented On 0 1:54PM ; [facility] History of schizophrenia 12/25/2019 Last Documented On 0 1:54PM ; [facility] History of bipolar disorder NOS 12/25/19 20 Last Documented On 0 1:54PM ; [facility] History of depression 12/25/2019 Last Documented On 0 1:54PM ; [facility] History of psychiatric disorders 020 Last Documented On 0 1:54PM ; [facility] Work Phone: [phone]) 465-347311-11-2023 History general Narrative - Reported Includes: Medical History in patient's chart Description Last Updated No previous suicide attempt 02/20/2023 Last Documented On 3 4:27PM ; [facility] No Safety Measures 02/20/2023 Last Documented On 3 4:27PM ; [facility] Not planning to have a baby in the next 12 months 11/30/2022 Last Documented On 3 12:28PM ; [facility] History of anxiety disorder NOS 07/18/19 22 Last Documented On 2 8:10AM ; [facility] No previous hospitalizations 04/03/2021 Last Documented On 1 8:11PM ; [facility] History of complete colonoscopy 04/03/20 21 Last Documented On 1 8:11PM ; [facility] Epilepsy 12/25/2019 Last Documented On 0 1:54PM ; [facility] 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 Last Documented On 0 1:54PM ; [facility] Ovarian cyst 12/25/2019 Last Documented On 0 1:54PM ; [facility] Post-traumatic stress disorder 0 Last Documented On 0 1:54PM ; [facility] History of asthma 12/25/2019 Last Documented On 0 1:54PM ; [facility] History of schizophrenia 12/25/2019 Last Documented On 0 1:54PM ; [facility] History of bipolar disorder NOS 12/25/19 20 Last Documented On 0 1:54PM ; [facility] History of depression 12/25/2019 Last Documented On 0 1:54PM ; [facility] History of psychiatric disorders 020 Last Documented On 0 1:54PM ; [facility] Work Phone: [phone]) [phone] History general Narrative - Reported Includes: Medical History in patient's chart Description Last Updated No previous suicide attempt 02/20/2023 Last Documented On 3 4:27PM ; [facility] No Safety Measures 02/20/2023 Last Documented On 3 4:27PM ; [facility] Not planning to have a baby in the next 12 months 11/30/2022 Last Documented On 3 12:28PM ; [facility] History of anxiety disorder NOS 07/18/19 22 Last Documented On 2 8:10AM ; [facility] No previous hospitalizations 04/03/2021 Last Documented On 1 8:11PM ; [facility] History of complete colonoscopy 04/03/20 21 Last Documented On 1 8:11PM ; [facility] Epilepsy 12/25/2019 Last Documented On 0 1:54PM ; [facility] 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 Last Documented On 0 1:54PM ; [facility] Ovarian cyst 12/25/2019 Last Documented On 0 1:54PM ; [facility] Post-traumatic stress disorder 0 Last Documented On 0 1:54PM ; [facility] History of asthma 12/25/2019 Last Documented On 0 1:54PM ; [facility] History of schizophrenia 12/25/2019 Last Documented On 0 1:54PM ; [facility] History of bipolar disorder NOS 12/25/19 20 Last Documented On 0 1:54PM ; [facility] History of depression 12/25/2019 Last Documented On 0 1:54PM ; [facility] History of psychiatric disorders 020 Last Documented On 0 1:54PM ; [facility] Work Phone: [phone]) 575-699311-11-2023 History general Narrative - Reported Includes: Medical History in patient's chart Description Last Updated No previous suicide attempt 02/20/2023 Last Documented On 3 4:27PM ; [facility] No Safety Measures 02/20/2023 Last Documented On 3 4:27PM ; [facility] Not planning to have a baby in the next 12 months 11/30/2022 Last Documented On 3 12:28PM ; [facility] History of anxiety disorder NOS 07/18/19 22 Last Documented On 2 8:10AM ; [facility] No previous hospitalizations 04/03/2021 Last Documented On 1 8:11PM ; [facility] History of complete colonoscopy 04/03/20 21 Last Documented On 1 8:11PM ; [facility] Epilepsy 12/25/2019 Last Documented On 0 1:54PM ; [facility] 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 Last Documented On 0 1:54PM ; [facility] Ovarian cyst 12/25/2019 Last Documented On 0 1:54PM ; [facility] Post-traumatic stress disorder 0 Last Documented On 0 1:54PM ; [facility] History of asthma 12/25/2019 Last Documented On 0 1:54PM ; [facility] History of schizophrenia 12/25/2019 Last Documented On 0 1:54PM ; [facility] History of bipolar disorder NOS 12/25/19 20 Last Documented On 0 1:54PM ; [facility] History of depression 12/25/2019 Last Documented On 0 1:54PM ; [facility] History of psychiatric disorders 020 Last Documented On 0 1:54PM ; [facility] Work Phone: [phone] 208-256211-11-2023 Instructions Includes: Instructions for all patient encounters Instructions to patient Intervention and counseling on cessation of tobacco use, 3-10 minutes Last Documented On 0 1:15PM ; [facility] Education and Decision Aids were provided during visit for: [facility] offered active and suppo rtive listening, normalized emotions and feelings, and processed current stressors. ~P empathized with patient regarding her current stressors and encouraged patient to continue to advocate for herself. Patient was receptive Last Documented On 3 4:25PM ; [facility] Discussed nutritional needs teach healthy choices including fruits and vegetables Last Documented On 3 10:19AM ; [facility] Patient education about a pr oper diet Last Documented On 3 10:19AM ; [facility] Discussed concerns about exe rcise : promote physical activity ~ ~Will do vaginal swab to check for yeast infection ~ ~Encouraged to follow up with OBGYN ~ ~Number given to surgeon that GI referred her to, call number and schedule appt ~ ~Follow up at next scheduled appt Last Documented On 3 12:18PM ; [facility] Not requesting contraception Last Documented On 3 10:23AM ; [facility] Discussed nutritional needs teach healthy choices including fruits and vegetables Last Documented On 3 10:48AM ; [facility] Patient education about a pr oper diet Last Documented On 3 10:48AM ; [facility] Discussed concerns about exe rcise : promote physical activity ~ ~Will give augmentin to cover sinuses and urinary tract ~ ~Will send out urine ~ ~Will give steriod due to patients lung sounds ~ ~Will increase symbicort ~ ~Follow up in one month Last Documented On 3 3:48PM ; [facility] Not requesting contraception Last Documented On 3 10:50AM ; [facility] Discussed nutritional needs teach healthy choices including fruits and vegetables Last Documented On 3 11:01AM ; [facility] Patient education about a pr oper diet Last Documented On 3 11:01AM ; [facility] Discussed concerns about exe rcise : promote physical activity ~ ~Follow up after ER visit Last Documented On 3 8:31PM ; [facility] Not requesting contraception Last Documented On 3 11:03AM ; [facility] Discussed nutritional needs teach healthy choices including fruits and vegetables Last Documented On 3 12:03PM ; [facility] Patient education about a pr oper diet Last Documented On 3 12:03PM ; [facility] Discussed concerns about exe rcise : promote physical activity ~ ~Will keep medication the same Last Documented On 3 4:46AM ; [facility] Not requesting contraception Last Documented On 3 12:04PM ; [facility] Discussed nutritional needs teach healthy choices including fruits and vegetables Last Documented On 3 9:09AM ; [facility] Patient education about a pr oper diet Last Documented On 3 9:09AM ; [facility] Patient education about an a sthma action plan Last Documented On 3 9:44AM ; [facility] Discussed concerns about exe rcise : promote physical activity ~ ~Will restart symbicort ~ ~Follow up in one month for asthma Last Documented On 3 12:28PM ; [facility] Discussed nutritional needs teach healthy choices including fruits and vegetables Last Documented On 2 10:58AM ; [facility] Patient education about a pr oper diet Last Documented On 2 10:58AM ; [facility] Discussed concerns about exe rcise : promote physical activity Last Documented On 2 10:58AM ; [facility] Discussed nutritional needs teach healthy choices including fruits and vegetables Last Documented On 2 11:41AM ; [facility] Patient education about a pr oper diet Last Documented On 2 11:41AM ; [facility] Discussed concerns about exe rcise : promote physical activity Last Documented On 2 11:41AM ; [facility] offered active listening and supportive feedback; normalized emotions and feelings, also provided pt time to process any current stressors ~P discussed benefits of counseling and supported pt in following through with scheduled appt. ~P encouraged pt to continue to make time to implement self-care regimen to assist in improving their mood Last Documented On 2 2:29PM ; [facility] Provided supportive listenin g and reflective feedback; monitored mood, explored symptoms, assessed functioning. ~Discussed medication use/compliance. ~Promoted use of healthy coping mechanisms and positive support, as needed Last Documented On 2 1:25PM ; [facility] Discussed nutritional needs teach healthy choices including fruits and vegetables Last Documented On 2 12:54PM ; [facility] Patient education about a pr oper diet Last Documented On 2 12:54PM ; [facility] Discussed concerns about exe rcise : promote physical activity Last Documented On 2 12:54PM ; [facility] Discussed nutritional needs teach healthy choices including fruits and vegetables Last Documented On 2 11:39AM ; [facility] Patient education about a pr oper diet Last Documented On 2 11:39AM ; [facility] Discussed concerns about exe rcise : promote physical activity Last Documented On 2 11:39AM ; [facility] Discussed nutritional needs teach healthy choices including fruits and vegetables Last Documented On 2 10:29AM ; [facility] Patient education about a pr oper diet Last Documented On 2 10:29AM ; [facility] Discussed concerns about exe rcise : promote physical activity Last Documented On 2 10:29AM ; [facility] Discussed current self-care methods/coping skills. ~Validated and normalized patient's feelings while assisting process recent events. ~Discussed ongoing counseling. ~Discussed lifestyle changes to address chronic illness. ~Supported patient's personal health goals Last Documented On 2 8:50PM ; [facility] Discussed nutritional needs teach healthy choices including fruits and vegetables Last Documented On 2 11:15AM ; [facility] Patient education about a pr oper diet Last Documented On 2 11:15AM ; [facility] Discussed concerns about exe rcise : promote physical activity Last Documented On 2 11:15AM ; [facility] Discussed current self-care methods/coping skills. ~Validated and normalized patient's feelings while assisting process recent events. ~Discussed ongoing mental health services. ~Discussed lifestyle changes to address chronic illness. ~Supported patient's personal health goals. ~ ~Reports feeling better since beginning new meds. Also voices and visual hallucinations have stopped; reports voices were not commanfing Last Documented On 2 8:54PM ; [facility] offered active and suppo rtive listening and normalized emotions and feelings. ~[facility] discussed with patient and significant other in the room with her crisis resources. Patient is agreeable to contacting one of the crisis resources should moods worsen or call 911 or go to the Emergency Room. Patient reports that she can also speak with significant others Mom or go to her [employer] [facility]. ~[facility] and PCP discussed plan to follow-up with psychiatry and counseling and a new referral being sent to [facility]. If patient is not accepted back as a patient with Dr. Dickerson, will look into other resources Last Documented On 1 7:15PM ; [facility] Discussed nutritional needs teach healthy choices including fruits and vegetables Last Documented On 1 1:18PM ; [facility] Patient education about a pr oper diet Last Documented On 1 1:18PM ; [facility] Discussed concerns about exe rcise : promote physical activity Last Documented On 1 1:18PM ; [facility] Discussed nutritional needs teach healthy choices including fruits and vegetables Last Documented On 1 10:37AM ; [facility] Patient education about a pr oper diet Last Documented On 1 10:37AM ; [facility] Discussed concerns about exe rcise : promote physical activity Last Documented On 1 10:37AM ; [facility] Explored current symptoms an d stressors. Educaated patient re importance of counseling and provided brief review of EMDR treatment. ~Encouraged patient to engage in ongoing counseling. ~ Last Documented On 1 10:50PM ; [facility] Discussed nutritional needs teach healthy choices including fruits and vegetables Last Documented On 1 6:53PM ; [facility] Patient education about a pr oper diet Last Documented On 1 6:53PM ; [facility] Discussed concerns about exe rcise : promote physical activity Last Documented On 1 6:53PM ; [facility] provided active listenin g, support and helped patient process through current symptoms and stressors related to mood and irritability. ~P discussed coping skills that patient has tried as well as discussed potential benefit of counseling. ~ ~ Last Documented On 0 11:49AM ; [facility] Discussed nutritional needs teach healthy choices including fruits and vegetables Last Documented On 0 1:15PM ; [facility] Patient education about a pr oper diet Last Documented On 0 1:15PM ; [facility] Patient education about a pr oper diet Last Documented On 0 1:33PM ; [facility] Patient education about meal planning Last Documented On 0 1:33PM ; [facility] Education about changing eat ing habits Last Documented On 0 1:33PM ; [facility] Patient education about high fiber diet Last Documented On 0 1:33PM ; [facility] Patient education about low fat diet Last Documented On 0 1:33PM ; [facility] Patient education about low cholesterol diet Last Documented On 0 1:33PM ; [facility] Patient education about low carbohydrate diet Last Documented On 0 1:33PM ; [facility] Patient education about high protein diet Last Documented On 0 1:33PM ; [facility] Discussed concerns about exe rcise : promote physical activity Last Documented On 0 1:15PM ; [facility] provided active listenin g, support and helped patient process through current symptoms and stressors due to pain, loss of work and low frustration tolerance. ~[facility] discussed coping skills and supports that patient can implement inclduing meditation, mindfulness, and deep breathing activities. P provided resources to patient to work on implementing. ~[facility] discussed with patient re-establishing care for therapy and provided patient with resource list. ~ Last Documented On 0 6:15PM ; [facility] Discussed nutritional needs teach healthy choices including fruits and vegetables Last Documented On 0 1:12PM ; [facility] Patient education about a pr oper diet Last Documented On 0 1:12PM ; [facility] Patient education about a pr oper diet Last Documented On 0 1:46PM ; [facility] Patient education about meal planning Last Documented On 0 1:46PM ; [facility] Education about changing eat ing habits Last Documented On 0 1:46PM ; [facility] Patient education about high fiber diet Last Documented On 0 1:46PM ; [facility] Patient education about low fat diet Last Documented On 0 1:46PM ; [facility] Patient education about low cholesterol diet Last Documented On 0 1:46PM ; [facility] Patient education about low carbohydrate diet Last Documented On 0 1:46PM ; [facility] Patient education about high protein diet Last Documented On 0 1:46PM ; [facility] Discussed concerns about exe rcise : promote physical activity Last Documented On 0 1:12PM ; [facility] Work Phone: [phone] 171-387711-10-2023 Evaluation note Includes: Assessments for all patient encounters Findings Encounter Date Anxiety disorder NOS Established Patient with Lea DALTONW-S 02/19/2023 Last Documented On 3 4:27PM ; [facility] Bipolar schizoaffective disorder Esta blished Patient with Lea Arguelles [employer]-S 02/19/2023 Last Documented On 3 4:27PM ; [facility] Nicotine dependence Established Patient with Lea Arguelles [employer]-S 02/19/2023 Last Documented On 3 4:27PM ; [facility] Assessment of body mass index Open Acces s - Established with Srinivasa Ed BLOCK MECHANIC 02/19/2023 Last Documented On 3 12:18PM ; [facility] [Body mass index [BMI] 33.0- 33.9, adult] assessment of body mass index Medical Established Patient with Srinivasa Ed BLOCK MECHANIC 02/05/2023 Last Documented On 3 3:48PM ; [facility] Anxiety disorder NOS Medical Established Patient with Srinivasa Ed BLOCK MECHANIC 02/05/2023 Last Documented On 3 3:48PM ; [facility] Body mass index Medical Established Patient with Srinivasa Ed BLOCK MECHANIC 01/28/2023 Last Documented On 3 8:31PM ; [facility] [Body mass index [BMI] 32.0- 32.9, adult] assessment of body mass index Medical Established Patient with Srinivasa Ed BLOCK MECHANIC 12/31/2022 Last Documented On 3 5:25AM ; [facility] Uncomplicated mild persistent asthma Med ical Established Patient with Srinivasa Ed BLOCK MECHANIC 12/31/2022 Last Documented On 3 5:25AM ; [facility] [Body mass index [BMI] 33.0- 33.9, adult] assessment of body mass index Medical Established Patient with Srinivasa Ed BLOCK MECHANIC 11/30/2022 Last Documented On 3 12:28PM ; [facility] Anxiety disorder NOS Medical Established Patient with Srinivasa Ed BLOCK MECHANIC 11/30/2022 Last Documented On 3 12:28PM ; [facility] Diabetes Risk Test Score was four score 11/30/2022 Medical Established Patient with Srinivasa Ed BLOCK MECHANIC 11/30/2022 Last Documented On 3 12:28PM ; [facility] Uncomplicated mild persistent asthma Med ical Established Patient with Srinivasa Ed BLOCK MECHANIC 11/30/2022 Last Documented On 3 12:28PM ; [facility] Visit for: routine adult H&P with abnormal findings Medical Established Patient with Srinivasa Ed BLOCK MECHANIC 11/30/2022 Last Documented On 3 12:28PM ; [facility] [Body mass index [BMI] 30.0- 30.9, adult] assessment of body mass index Medical Established Patient with Srinivasa Ed BLOCK MECHANIC 01/22/2022 Last Documented On 2 6:17PM ; [facility] Dysuria Medical Established Patient with Srinivasa Ed BLOCK MECHANIC 01/22/2022 Last Documented On 2 6:17PM ; [facility] Bipolar schizoaffective disorder BH Esta blished Patient with Bharat Díaz LPCC-S 12/11/2021 Last Documented On 2 2:31PM ; [facility] Assessment of body mass inde x [Body mass index [BMI] 26.0-26.9, adult] Medical Established Patient with Srinivasa Ed BLOCK MECHANIC 12/11/2021 Last Documented On 2 12:34PM ; [facility] Bipolar schizoaffective disorder BH Esta blished Patient with Bharattameka WatkinsDíaz LPCC-S 11/25/2021 Last Documented On 2 1:25PM ; [facility] Anxiety disorder NOS Medical Established Patient with Traci Juam BLOCK MECHANIC 11/25/2021 Last Documented On 2 3:06PM ; [facility] Urinary tract infection Medical Establis hed Patient with Traci Juma BLOCK MECHANIC 11/25/2021 Last Documented On 2 3:06PM ; [facility] Z68.27 - Body mass index [BM I] 27.0-27.9, adult Medical Established Patient with Traci Juma BLOCK MECHANIC 11/25/2021 Last Documented On 2 3:06PM ; [facility] Anxiety disorder NOS Medical Established Patient with Traci Juma BLOCK MECHANIC 08/13/2021 Last Documented On 2 8:18AM ; [facility] Assessment of body mass index Medical Es tablished Patient with Traci Juma BLOCK MECHANIC 08/13/2021 Last Documented On 2 8:18AM ; [facility] Chronic gastritis without hemorrhage Med ical Established Patient with Traci Juma BLOCK MECHANIC 08/13/2021 Last Documented On 2 8:18AM ; [facility] Diverticulosis of intestine Medical Esta blished Patient with Traci Dennison BLOCK MECHANIC 08/13/2021 Last Documented On 2 8:18AM ; [facility] Urinary tract infection Medical Establis hed Patient with Tracizachery Dennison BLOCK MECHANIC 08/13/2021 Last Documented On 2 8:18AM ; [facility] Anxiety disorder NOS Medical Established Patient with Tracizachery Dennison BLOCK MECHANIC 07/17/2021 Last Documented On 2 8:10AM ; [facility] Other hypothyroidism Medical Established Patient with Traci Juma BLOCK MECHANIC 07/17/2021 Last Documented On 2 8:10AM ; [facility] Upper respiratory infection Medical Esta blished Patient with Traci Dennison BLOCK MECHANIC 07/17/2021 Last Documented On 2 8:10AM ; [facility] Visit for: routine adult H&P with abnormal findings Medical Established Patient with Traci Dennison BLOCK MECHANIC 07/17/2021 Last Documented On 2 8:10AM ; [facility] Visit for: screening for lip oid disorders Medical Established Patient with Traci Dennison BLOCK MECHANIC 07/17/2021 Last Documented On 2 8:10AM ; [facility] Vitamin B12 deficiency Medical Establish ed Patient with Traci Dennison BLOCK MECHANIC 07/17/2021 Last Documented On 2 8:10AM ; [facility] Vitamin D deficiency Medical Established Patient with Traci Dennison BLOCK MECHANIC 07/17/2021 Last Documented On 2 8:10AM ; [facility] Z68.28 - Body mass index [BM I] 28.0-28.9, adult Medical Established Patient with Traci Dennison BLOCK MECHANIC 07/17/2021 Last Documented On 2 8:10AM ; [facility] Allergic rhinitis Telemedicine Establi sted Patient with Traci Dennison BLOCK MECHANIC 07/16/2021 Last Documented On 2 8:23AM ; [facility] Exposure to COVID-19 Telemedicine Establ isted Patient with Traci Dennison BLOCK MECHANIC 04/29/2021 Last Documented On 2 8:02PM ; [facility] Bipolar schizoaffective disorder BH Esta blished Patient with Farrah Klinemons LPCC-S 04/15/2021 Last Documented On 2 1:07PM ; [facility] Anxiety disorder NOS Medical Established Patient with Traci Dennison BLOCK MECHANIC 04/15/2021 Last Documented On 2 9:06AM ; [facility] Assessment of body mass index Medical Es tablished Patient with Traci Dennison BLOCK MECHANIC 04/15/2021 Last Documented On 2 9:06AM ; [facility] Bipolar disorder NOS Medical Established Patient with Traci Dennison BLOCK MECHANIC 04/15/2021 Last Documented On 2 9:06AM ; [facility] Anxiety disorder NOS Telebehavioral H ealth with Farrah Jarrett LPCC-S 04/09/2021 Last Documented On 2 9:05AM ; [facility] Bipolar disorder NOS Telebehavioral H ealth with Farrah Jarrett LPCC-S 04/09/2021 Last Documented On 2 9:05AM ; [facility] Anxiety disorder NOS Established Patient with Hannah Short LISWS 04/03/2021 Last Documented On 1 7:15PM ; [facility] Bipolar I disorder, most rec ent episode, depressed Established Patient with Hannah Short LISWS 04/03/2021 Last Documented On 1 7:15PM ; [facility] Nicotine dependence Established Patient with Hannah Short LISWS 04/03/2021 Last Documented On 1 7:15PM ; [facility] Nicotine dependence Established Patient with Hannah Short LISWS 04/03/2021 Last Documented On 1 7:15PM ; [facility] Undifferentiated schizophren ia per patient reported history Established Patient with Hannah Short LISWS 04/03/2021 Last Documented On 1 7:15PM ; [facility] A home test was negative Medic al Established Patient with Traci Dennison BLOCK MECHANIC 04/03/2021 Last Documented On 1 8:11PM ; [facility] Assessment of body mass index Medical Es tablished Patient with Traci Dennison BLOCK MECHANIC 04/03/2021 Last Documented On 1 8:11PM ; [facility] Epilepsy, not intractable, w ithout status epilepticus Medical Established Patient with Traci Dennison BLOCK MECHANIC 04/03/2021 Last Documented On 1 8:11PM ; [facility] Mixed affective bipolar diso rder, moderate Medical Established Patient with Traci Dennison BLOCK MECHANIC 04/03/2021 Last Documented On 1 8:11PM ; [facility] Urinary tract infection Medical Establis hed Patient with Traci Dennison BLOCK MECHANIC 04/03/2021 Last Documented On 1 8:11PM ; [facility] Visit for: screening for STD Medical Est ablished Patient with Traci Dennison BLOCK MECHANIC 04/03/2021 Last Documented On 1 8:11PM ; [facility] Assessment of visit for: scr eening for human immunodeficiency virus Medical Established Patient with Peggy Thrasher BLOCK MECHANIC 02/14/2021 Last Documented On 1 1:16PM ; [facility] Diabetes Risk Test Score was three score 02/14/2021 Medical Established Patient with Peggy Thrasher BLOCK MECHANIC 02/14/2021 Last Documented On 1 1:16PM ; [facility] Diarrhea Medical Established Patient with Peggy Thrasher BLOCK MECHANIC 02/14/2021 Last Documented On 1 1:16PM ; [facility] Nicotine dependence Medical Established Patient with Peggy Thrasher BLOCK MECHANIC 02/14/2021 Last Documented On 1 1:16PM ; [facility] Z68.28 - Body mass index [BM I] 28.0-28.9, adult Medical Established Patient with Peggy Thrasher BLOCK MECHANIC 02/14/2021 Last Documented On 1 1:16PM ; [facility] Cough Telemedicine Establisted Patient with Traci Dennison BLOCK MECHANIC 01/01/2021 Last Documented On 1 6:31PM ; [facility] Fever Telemedicine Establisted Patient with Traci Dennison BLOCK MECHANIC 01/01/2021 Last Documented On 1 6:31PM ; [facility] Z20.822 - Contact with and (suspected) exposure to COVID-19 Telemedicine Establisted Patient with Traci Dennison BLOCK MECHANIC 01/01/2021 Last Documented On 1 6:31PM ; [facility] Bipolar I disorder, most rec ent episode, depressed Established Patient with Farrah Jarrett LPCC-S 06/03/2020 Last Documented On 1 10:50PM ; [facility] Paranoid schizophrenia per p atient report Established [facility] 06/03/2020 Last Documented On 1 10:50PM ; [facility] Post-traumatic stress disord er per patient report Established Patient with Farrah Jarrett LPCC-S 06/03/2020 Last Documented On 1 10:50PM ; [facility] 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 Patient with Traci Dennison BLOCK MECHANIC 06/03/2020 Last Documented On 1 8:25AM ; [facility] Overweight Medical Established Patient with Traci Dennison BLOCK MECHANIC 06/03/2020 Last Documented On 1 8:25AM ; [facility] Z68.29 - Body mass index [BM I] 29.0-29.9, adult Medical Established Patient with Traci Dennison BLOCK MECHANIC 06/03/2020 Last Documented On 1 8:25AM ; [facility] Anxiety disorder NOS Medical Established Patient with Traci Dennison BLOCK MECHANIC 01/26/2020 Last Documented On 0 7:37PM ; [facility] Bipolar disorder NOS Medical Established Patient with Traci Dennison BLOCK MECHANIC 01/26/2020 Last Documented On 0 7:37PM ; [facility] Infection of tooth Medical Established Patient w ith Traci Dennison BLOCK MECHANIC 01/26/2020 Last Documented On 0 7:37PM ; [facility] Z68.20 - Body mass index [BM I] 20.0-20.9, adult Medical Established Patient with Traci Dennison BLOCK MECHANIC 01/26/2020 Last Documented On 0 7:37PM ; [facility] Bipolar I disorder, most rec ent episode, mixed Established Patient with Hannah ROY 01/08/2020 Last Documented On 0 11:49AM ; [facility] Generalized anxiety disorder Establis hed Patient with Hannah Short LISWS 01/08/2020 Last Documented On 0 11:49AM ; [facility] Diabetes Risk Test Score was one score 01/08/2020 Medical Established Patient with Peggy Anna Marie BLOCK MECHANIC 01/08/2020 Last Documented On 0 1:42PM ; [facility] Overweight Medical Established Patient with Peggy Anna Marie BLOCK MECHANIC 01/08/2020 Last Documented On 0 1:42PM ; [facility] Z68.27 - Body mass index (BM I) 27.0-27.9, adult Medical Established Patient with Peggy Anna Marie BLOCK MECHANIC 01/08/2020 Last Documented On 0 1:42PM ; [facility] Bipolar I disorder, most rec ent episode, mixed Established Patient with Hannah Short LISWS 12/25/2019 Last Documented On 0 6:16PM ; [facility] Generalized anxiety disorder Establis hed Patient with Hannah Short LISWS 12/25/2019 Last Documented On 0 6:16PM ; [facility] Overweight Medical Established Patient with Peggy Anna Marie BLOCK MECHANIC 12/25/2019 Last Documented On 0 1:54PM ; [facility] Z68.26 - Body mass index (BM I) 26.0-26.9, adult Medical Established Patient with Peggy Anna Marie BLOCK MECHANIC 12/25/2019 Last Documented On 0 1:54PM ; [facility] Work Phone: 1(141) 310-612411-10-2023 Evaluation note Includes: Assessments for all patient encounters Findings Encounter Date Anxiety disorder NOS Established Patient with Lea Stone [employer]ICER-S 02/19/2023 Last Documented On 3 4:27PM ; [facility] Bipolar schizoaffective disorder Esta blished Patient with Lea Stone [employer] OFFICER-S 02/19/2023 Last Documented On 3 4:27PM ; [facility] Nicotine dependence Established Patient with Lea Stone [employer] OFFICER-S 02/19/2023 Last Documented On 3 4:27PM ; [facility] Assessment of body mass index Open Acces s - Established with Srinivasa Ed BLOCK MECHANIC 02/19/2023 Last Documented On 3 9:22PM ; [facility] [Body mass index [BMI] 33.0- 33.9, adult] assessment of body mass index Medical Established Patient with Srinivasa Ed BLOCK MECHANIC 02/05/2023 Last Documented On 3 3:48PM ; [facility] Anxiety disorder NOS Medical Established Patient with Srinivasa Ed BLOCK MECHANIC 02/05/2023 Last Documented On 3 3:48PM ; [facility] Body mass index Medical Established Patient with Srinivasa Ed BLOCK MECHANIC 01/28/2023 Last Documented On 3 8:31PM ; [facility] [Body mass index [BMI] 32.0- 32.9, adult] assessment of body mass index Medical Established Patient with Srinivasa Ed BLOCK MECHANIC 12/31/2022 Last Documented On 3 5:25AM ; [facility] Uncomplicated mild persistent asthma Med ical Established Patient with Srinivasa Ed BLOCK MECHANIC 12/31/2022 Last Documented On 3 5:25AM ; [facility] [Body mass index [BMI] 33.0- 33.9, adult] assessment of body mass index Medical Established Patient with Srinivasa Ed BLOCK MECHANIC 11/30/2022 Last Documented On 3 12:28PM ; [facility] Anxiety disorder NOS Medical Established Patient with Srinivasa Ed BLOCK MECHANIC 11/30/2022 Last Documented On 3 12:28PM ; [facility] Diabetes Risk Test Score was four score 11/30/2022 Medical Established Patient with Srinivasa Ed BLOCK MECHANIC 11/30/2022 Last Documented On 3 12:28PM ; [facility] Uncomplicated mild persistent asthma Med ical Established Patient with Srinivasa Ed BLOCK MECHANIC 11/30/2022 Last Documented On 3 12:28PM ; [facility] Visit for: routine adult H&P with abnormal findings Medical Established Patient with Srinivasa Ed BLOCK MECHANIC 11/30/2022 Last Documented On 3 12:28PM ; [facility] [Body mass index [BMI] 30.0- 30.9, adult] assessment of body mass index Medical Established Patient with Srinivasa Ed BLOCK MECHANIC 01/22/2022 Last Documented On 2 6:17PM ; [facility] Dysuria Medical Established Patient with Srinivasa Ed BLOCK MECHANIC 01/22/2022 Last Documented On 2 6:17PM ; [facility] Bipolar schizoaffective disorder BH Esta blished Patient with Bharattameka WatkinsDíaz LPCC-S 12/11/2021 Last Documented On 2 2:31PM ; [facility] Assessment of body mass inde x [Body mass index [BMI] 26.0-26.9, adult] Medical Established Patient with Srinivasa Ed BLOCK MECHANIC 12/11/2021 Last Documented On 2 12:34PM ; [facility] Bipolar schizoaffective disorder BH Esta blished Patient with Bharattameka Díaz LPCC-S 11/25/2021 Last Documented On 2 1:25PM ; [facility] Anxiety disorder NOS Medical Established Patient with Traci Juma BLOCK MECHANIC 11/25/2021 Last Documented On 2 3:06PM ; [facility] Urinary tract infection Medical Establis hed Patient with Traci Juma BLOCK MECHANIC 11/25/2021 Last Documented On 2 3:06PM ; [facility] Z68.27 - Body mass index [BM I] 27.0-27.9, adult Medical Established Patient with Traci Juma BLOCK MECHANIC 11/25/2021 Last Documented On 2 3:06PM ; [facility] Anxiety disorder NOS Medical Established Patient with Traci Juma BLOCK MECHANIC 08/13/2021 Last Documented On 2 8:18AM ; [facility] Assessment of body mass index Medical Es tablished Patient with Traci Juma BLOCK MECHANIC 08/13/2021 Last Documented On 2 8:18AM ; [facility] Chronic gastritis without hemorrhage Med ical Established Patient with Traci Juma BLOCK MECHANIC 08/13/2021 Last Documented On 2 8:18AM ; [facility] Diverticulosis of intestine Medical Esta blished Patient with Traci Juma BLOCK MECHANIC 08/13/2021 Last Documented On 2 8:18AM ; [facility] Urinary tract infection Medical Establis hed Patient with Tracizachery Dennison BLOCK MECHANIC 08/13/2021 Last Documented On 2 8:18AM ; [facility] Anxiety disorder NOS Medical Established Patient with Traci Juma BLOCK MECHANIC 07/17/2021 Last Documented On 2 8:10AM ; [facility] Other hypothyroidism Medical Established Patient with Traci Juma BLOCK MECHANIC 07/17/2021 Last Documented On 2 8:10AM ; [facility] Upper respiratory infection Medical Esta blished Patient with Traci Juma BLOCK MECHANIC 07/17/2021 Last Documented On 2 8:10AM ; [facility] Visit for: routine adult H&P with abnormal findings Medical Established Patient with Traci Dennison BLOCK MECHANIC 07/17/2021 Last Documented On 2 8:10AM ; [facility] Visit for: screening for lip oid disorders Medical Established Patient with Traci Dennison BLOCK MECHANIC 07/17/2021 Last Documented On 2 8:10AM ; [facility] Vitamin B12 deficiency Medical Establish ed Patient with Traci Dennison BLOCK MECHANIC 07/17/2021 Last Documented On 2 8:10AM ; [facility] Vitamin D deficiency Medical Established Patient with Traci Dennison BLOCK MECHANIC 07/17/2021 Last Documented On 2 8:10AM ; [facility] Z68.28 - Body mass index [BM I] 28.0-28.9, adult Medical Established Patient with Traci Dennison BLOCK MECHANIC 07/17/2021 Last Documented On 2 8:10AM ; [facility] Allergic rhinitis Telemedicine Establi sted Patient with Traci Dennison BLOCK MECHANIC 07/16/2021 Last Documented On 2 8:23AM ; [facility] Exposure to COVID-19 Telemedicine Establ isted Patient with Traci Dennison BLOCK MECHANIC 04/29/2021 Last Documented On 2 8:02PM ; [facility] Bipolar schizoaffective disorder BH Esta blished Patient with Farrah Jarrett [facility] 04/15/2021 Last Documented On 2 1:07PM ; [facility] Anxiety disorder NOS Medical Established Patient with Traci Dennison BLOCK MECHANIC 04/15/2021 Last Documented On 2 9:06AM ; [facility] Assessment of body mass index Medical Es tablished Patient with Traci Dennison BLOCK MECHANIC 04/15/2021 Last Documented On 2 9:06AM ; [facility] Bipolar disorder NOS Medical Established Patient with Traci Dennison BLOCK MECHANIC 04/15/2021 Last Documented On 2 9:06AM ; [facility] Anxiety disorder NOS Telebehavioral H ealth with Farrah Jarrett LPCC-S 04/09/2021 Last Documented On 2 9:05AM ; [facility] Bipolar disorder NOS Telebehavioral H ealth with Farrah Jarrett [facility] 04/09/2021 Last Documented On 2 9:05AM ; [facility] Anxiety disorder NOS Established Patient with Hannah Short LISWS 04/03/2021 Last Documented On 1 7:15PM ; [facility] Bipolar I disorder, most rec ent episode, depressed Established Patient with Hannah Short LISWS 04/03/2021 Last Documented On 1 7:15PM ; [facility] Nicotine dependence Established Patient with Hannah Short LISWS 04/03/2021 Last Documented On 1 7:15PM ; [facility] Nicotine dependence Established Patient with Hannah Short LISWS 04/03/2021 Last Documented On 1 7:15PM ; [facility] Undifferentiated schizophren ia per patient reported history Established Patient with Hannah Short LISWS 04/03/2021 Last Documented On 1 7:15PM ; [facility] A home test was negative Medic al Established Patient with Traci Dennison BLOCK MECHANIC 04/03/2021 Last Documented On 1 8:11PM ; [facility] Assessment of body mass index Medical Es tablished Patient with Traci Dennison BLOCK MECHANIC 04/03/2021 Last Documented On 1 8:11PM ; [facility] Epilepsy, not intractable, w ithout status epilepticus Medical Established Patient with Traci Dennison BLOCK MECHANIC 04/03/2021 Last Documented On 1 8:11PM ; [facility] Mixed affective bipolar diso rder, moderate Medical Established Patient with Traci Dennison [facility] 04/03/2021 Last Documented On 1 8:11PM ; [facility] Urinary tract infection Medical Establis hed Patient with Traci Dennison [facility] 04/03/2021 Last Documented On 1 8:11PM ; [facility] Visit for: screening for STD Medical Est ablished Patient with Traci Dennison [facility] 04/03/2021 Last Documented On 1 8:11PM ; [facility] Assessment of visit for: scr eening for human immunodeficiency virus Medical Established Patient with Peggy Thrasher [facility] 02/14/2021 Last Documented On 1 1:16PM ; [facility] Diabetes Risk Test Score was three score 02/14/2021 Medical Established Patient with Peggy Thrasher [facility] 02/14/2021 Last Documented On 1 1:16PM ; [facility] Diarrhea Medical Established Patient with Peggy Thrasher [facility] 02/14/2021 Last Documented On 1 1:16PM ; [facility] Nicotine dependence Medical Established Patient with Peggy Thrasher [facility] 02/14/2021 Last Documented On 1 1:16PM ; [facility] Z68.28 - Body mass index [BM I] 28.0-28.9, adult Medical Established Patient with Peggy Thrasher [facility] 02/14/2021 Last Documented On 1 1:16PM ; [facility] Cough Telemedicine Establisted Patient with Traci Dennison BLOCK MECHANIC 01/01/2021 Last Documented On 1 6:31PM ; [facility] Fever Telemedicine Establisted Patient with Traci Dennison [facility] 01/01/2021 Last Documented On 1 6:31PM ; [facility] Z20.822 - Contact with and (suspected) exposure to COVID-19 Telemedicine Establisted Patient with Traci Dennison BLOCK MECHANIC 01/01/2021 Last Documented On 1 6:31PM ; [facility] Bipolar I disorder, most rec ent episode, depressed Established Patient with Farrah Jarrett [facility] 06/03/2020 Last Documented On 1 10:50PM ; [facility] Paranoid schizophrenia per p atient report Established Patient with Farrah Jarrett [facility] 06/03/2020 Last Documented On 1 10:50PM ; [facility] Post-traumatic stress disord er per patient report Established Patient with Farrah Hernandezs [facility] 06/03/2020 Last Documented On 1 10:50PM ; [facility] 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 Patient with Traci Dennison BLOCK MECHANIC 06/03/2020 Last Documented On 1 8:25AM ; [facility] Overweight Medical Established Patient with Traci Dennison BLOCK MECHANIC 06/03/2020 Last Documented On 1 8:25AM ; [facility] Z68.29 - Body mass index [BM I] 29.0-29.9, adult Medical Established Patient with Traci Dennison BLOCK MECHANIC 06/03/2020 Last Documented On 1 8:25AM ; [facility] Anxiety disorder NOS Medical Established Patient with Traci Dennison BLOCK MECHANIC 01/26/2020 Last Documented On 0 7:37PM ; [facility] Bipolar disorder NOS Medical Established Patient with Traci Dennison BLOCK MECHANIC 01/26/2020 Last Documented On 0 7:37PM ; [facility] Infection of tooth Medical Established Patient w ith Traci Dennison BLOCK MECHANIC 01/26/2020 Last Documented On 0 7:37PM ; [facility] Z68.20 - Body mass index [BM I] 20.0-20.9, adult Medical Established Patient with Traci Dennison BLOCK MECHANIC 01/26/2020 Last Documented On 0 7:37PM ; [facility] Bipolar I disorder, most rec ent episode, mixed Established Patient with Hannah Short LISWS 01/08/2020 Last Documented On 0 11:49AM ; [facility] Generalized anxiety disorder Establis hed Patient with Hannah Short LISWS 01/08/2020 Last Documented On 0 11:49AM ; [facility] Diabetes Risk Test Score was one score 01/08/2020 Medical Established Patient with Peggyisis Thrasher BLOCK MECHANIC 01/08/2020 Last Documented On 0 1:42PM ; [facility] Overweight Medical Established Patient with Peggy Anna Marie BLOCK MECHANIC 01/08/2020 Last Documented On 0 1:42PM ; [facility] Z68.27 - Body mass index (BM I) 27.0-27.9, adult Medical Established Patient with Peggy Anna Marie BLOCK MECHANIC 01/08/2020 Last Documented On 0 1:42PM ; [facility] Bipolar I disorder, most rec ent episode, mixed Established Patient with Hannah Short LISWS 12/25/2019 Last Documented On 0 6:16PM ; [facility] Generalized anxiety disorder BH Establis hed Patient with Hannah Short LISWS 12/25/2019 Last Documented On 0 6:16PM ; [facility] Overweight Medical Established Patient with Peggy Anna Marie BLOCK MECHANIC 12/25/2019 Last Documented On 0 1:54PM ; [facility] Z68.26 - Body mass index (BM I) 26.0-26.9, adult Medical Established Patient with Peggy Anna Marie BLOCK MECHANIC 12/25/2019 Last Documented On 0 1:54PM ; [facility] Work Phone: 1(925) 268-128111-10-2023 Progress note* Progress note Date Encounter Last Documented by 02/19/2023 Open Access - Established Last d ocumented on 02/19/2023; 12:18 PM, Srinivasa Jhaveri BLOCK MECHANIC; [facility] Active Problems & Conditions - [...] clinical lab tests History of Present Illness Melody Fletcher is a 32 year old female. - [...] 02/19/2023 10:15 am BP-Sitting L114/82 mmHg Pulse Rate-Atzqhgj95 bpm Temp-Oral98.8 F Rrhrmy80 in Uueqcj518 lbs 9.6 oz Body Mass Index33.2 kg/m2 Body Surface Area1.7 m2 Oxygen Urxhnnsvub15 % Vital Signs: - Systolic blood pressure [...] Leukocyte Estrase Negative, and Blood Negative. Specific [place] 1.020 and pH 7.5. Urine clarity Clear [...] pt : Not at all. [facility]11-10-2023 Progress note* Progress note Date Encounter Last Documented by 02/19/2023 Established Patient Last docu mented on 02/20/2023; 4:27 PM, Leazbigniew NATHAN; [facility] Active Problems & Conditions - F41.9 [...] mood and medications. History of Present Illness Melody Fletcher is a 32 year old female. - [...] willing to accept community resources from health instructional technology coach today. Patient denies any other concerns [...] to stop smoking Discussed Quit Line resources [facility] offered active and supportive listening, normalized emotions and feelings, and processed current stressors. [facility] empathized with patient regarding her current stressors and encouraged patient to continue to advocate for herself. Patient was receptive. Plan - External referral/Resources provided: Financial and food resources. Continue to take medication(s) as prescribed. [facility] to follow-up with patient at next visit as scheduled. . Advance Directives - Living Will - Declined to Provide Advance Directive Health Reminders - Assess Tobacco Use satisfied 02/19/2023. - Smoking & Tobacco Cessation Intervention and Counseling satisfied 02/19/2023. [facility]11-10-2023 Progress note* Progress note Date Encounter Last Documented by 02/19/2023 Open Access - Established Last d ocumented on 02/21/2023; 9:22 PM, Srinivasa Jhaveri CNP; [facility] Active Problems & Conditions - [...] clinical lab tests History of Present Illness Melody Fletcher is a 32 year old female. - [...] 02/19/2023 10:15 am BP-Sitting L114/82 mmHg Pulse Rate-Nguttof46 bpm Temp-Oral98.8 F Erfsed80 in Eybktq616 lbs 9.6 oz Body Mass Index33.2 kg/m2 Body Surface Area1.7 m2 Oxygen Fmrkgdilhw72 % Vital Signs: - Systolic blood pressure [...] Leukocyte Estrase Negative, and Blood Negative. Specific [place] 1.020 and pH 7.5. Urine clarity Clear [...] + 0 pt : Not at all. [facility]11-10-2023 Reason for referral (narrative)* Date Encounter Description Provider Reason for Referral 02/19/23 Established Patient Lea SIMPSON- S External referral/Resources provided - : Financial and food resources. ~ 11/25/21 Medical Established Patient Traci bruno CNP Referral To Mental Health Team 07/17/21 Medical Established Patient Traci bruno CNP Referral To Mental Health Team 06/03/20 Established Patient Farrah Jarrett [facility] Referral To Mental Health Team - [facility] conducted screen and discussed patient's responses w/her. [facility] Work Phone: [phone]) 765-602611-10-2023 Instructions Includes: Instructions for all patient encounters Instructions to patient Intervention and counseling on cessation of tobacco use, 3-10 minutes Last Documented On 0 1:15PM ; [facility] Education and Decision Aids were provided during visit for: Discussed nutritional needs teach healthy choices including fruits and vegetables Last Documented On 3 10:19AM ; [facility] Patient education about a pr oper diet Last Documented On 3 10:19AM ; [facility] Discussed concerns about exe rcise : promote physical activity ~ ~Will do vaginal swab to check for yeast infection ~ ~Encouraged to follow up with OBGYN ~ ~Number given to surgeon that GI referred her to, call number and schedule appt ~ ~Follow up at next scheduled appt Last Documented On 3 12:18PM ; [facility] Not requesting contraception Last Documented On 3 10:23AM ; [facility] Discussed nutritional needs teach healthy choices including fruits and vegetables Last Documented On 3 10:48AM ; [facility] Patient education about a pr oper diet Last Documented On 3 10:48AM ; [facility] Discussed concerns about exe rcise : promote physical activity ~ ~Will give augmentin to cover sinuses and urinary tract ~ ~Will send out urine ~ ~Will give steriod due to patients lung sounds ~ ~Will increase symbicort ~ ~Follow up in one month Last Documented On 3 3:48PM ; [facility] Not requesting contraception Last Documented On 3 10:50AM ; [facility] Discussed nutritional needs teach healthy choices including fruits and vegetables Last Documented On 3 11:01AM ; [facility] Patient education about a pr oper diet Last Documented On 3 11:01AM ; [facility] Discussed concerns about exe rcise : promote physical activity ~ ~Follow up after ER visit Last Documented On 3 8:31PM ; [facility] Not requesting contraception Last Documented On 3 11:03AM ; [facility] Discussed nutritional needs teach healthy choices including fruits and vegetables Last Documented On 3 12:03PM ; [facility] Patient education about a pr oper diet Last Documented On 3 12:03PM ; [facility] Discussed concerns about exe rcise : promote physical activity ~ ~Will keep medication the same Last Documented On 3 4:46AM ; [facility] Not requesting contraception Last Documented On 3 12:04PM ; [facility] Discussed nutritional needs teach healthy choices including fruits and vegetables Last Documented On 3 9:09AM ; [facility] Patient education about a pr oper diet Last Documented On 3 9:09AM ; [facility] Patient education about an a sthma action plan Last Documented On 3 9:44AM ; [facility] Discussed concerns about exe rcise : promote physical activity ~ ~Will restart symbicort ~ ~Follow up in one month for asthma Last Documented On 3 12:28PM ; [facility] Discussed nutritional needs teach healthy choices including fruits and vegetables Last Documented On 2 10:58AM ; [facility] Patient education about a pr oper diet Last Documented On 2 10:58AM ; [facility] Discussed concerns about exe rcise : promote physical activity Last Documented On 2 10:58AM ; [facility] Discussed nutritional needs teach healthy choices including fruits and vegetables Last Documented On 2 11:41AM ; [facility] Patient education about a pr oper diet Last Documented On 2 11:41AM ; [facility] Discussed concerns about exe rcise : promote physical activity Last Documented On 2 11:41AM ; [facility] offered active listening and supportive feedback; normalized emotions and feelings, also provided pt time to process any current stressors ~[facility] discussed benefits of counseling and supported pt in following through with scheduled appt. ~[facility] encouraged pt to continue to make time to implement self-care regimen to assist in improving their mood Last Documented On 2 2:29PM ; [facility] Provided supportive listenin g and reflective feedback; monitored mood, explored symptoms, assessed functioning. ~Discussed medication use/compliance. ~Promoted use of healthy coping mechanisms and positive support, as needed Last Documented On 2 1:25PM ; [facility] Discussed nutritional needs teach healthy choices including fruits and vegetables Last Documented On 2 12:54PM ; [facility] Patient education about a pr oper diet Last Documented On 2 12:54PM ; [facility] Discussed concerns about exe rcise : promote physical activity Last Documented On 2 12:54PM ; [facility] Discussed nutritional needs teach healthy choices including fruits and vegetables Last Documented On 2 11:39AM ; [facility] Patient education about a pr oper diet Last Documented On 2 11:39AM ; [facility] Discussed concerns about exe rcise : promote physical activity Last Documented On 2 11:39AM ; [facility] Discussed nutritional needs teach healthy choices including fruits and vegetables Last Documented On 2 10:29AM ; [facility] Patient education about a pr oper diet Last Documented On 2 10:29AM ; [facility] Discussed concerns about exe rcise : promote physical activity Last Documented On 2 10:29AM ; [facility] Discussed current self-care methods/coping skills. ~Validated and normalized patient's feelings while assisting process recent events. ~Discussed ongoing counseling. ~Discussed lifestyle changes to address chronic illness. ~Supported patient's personal health goals Last Documented On 2 8:50PM ; [facility] Discussed nutritional needs teach healthy choices including fruits and vegetables Last Documented On 2 11:15AM ; [facility] Patient education about a pr oper diet Last Documented On 2 11:15AM ; [facility] Discussed concerns about exe rcise : promote physical activity Last Documented On 2 11:15AM ; [facility] Discussed current self-care methods/coping skills. ~Validated and normalized patient's feelings while assisting process recent events. ~Discussed ongoing mental health services. ~Discussed lifestyle changes to address chronic illness. ~Supported patient's personal health goals. ~ ~Reports feeling better since beginning new meds. Also voices and visual hallucinations have stopped; reports voices were not commanfing Last Documented On 2 8:54PM ; [facility] offered active and suppo rtive listening and [...] or go to her kids fathers house. ~CHANDLER and PCP discussed plan to follow-up with psychiatry and counseling and a new referral being sent to [facility]. If patient is not accepted back as a patient with Dr. Dickerson, will look into other resources Last Documented On 1 7:15PM ; [facility] Discussed nutritional needs teach healthy choices including fruits and vegetables Last Documented On 1 1:18PM ; [facility] Patient education about a pr oper diet Last Documented On 1 1:18PM ; [facility] Discussed concerns about exe rcise : promote physical activity Last Documented On 1 1:18PM ; [facility] Discussed nutritional needs teach healthy choices including fruits and vegetables Last Documented On 1 10:37AM ; [facility] Patient education about a pr oper diet Last Documented On 1 10:37AM ; [facility] Discussed concerns about exe rcise : promote physical activity Last Documented On 1 10:37AM ; [facility] Explored current symptoms an d stressors. Educaated patient re importance of counseling and provided brief review of EMDR treatment. ~Encouraged patient to engage in ongoing counseling. ~ Last Documented On 1 10:50PM ; [facility] Discussed nutritional needs teach healthy choices including fruits and vegetables Last Documented On 1 6:53PM ; [facility] Patient education about a pr oper diet Last Documented On 1 6:53PM ; [facility] Discussed concerns about exe rcise : promote physical activity Last Documented On 1 6:53PM ; [facility] provided active listenin g, support and helped patient process through current symptoms and stressors related to mood and irritability. ~[facility] discussed coping skills that patient has tried as well as discussed potential benefit of counseling. ~ ~ Last Documented On 0 11:49AM ; [facility] Discussed nutritional needs teach healthy choices including fruits and vegetables Last Documented On 0 1:15PM ; [facility] Patient education about a pr oper diet Last Documented On 0 1:15PM ; [facility] Patient education about a pr oper diet Last Documented On 0 1:33PM ; [facility] Patient education about meal planning Last Documented On 0 1:33PM ; [facility] Education about changing eat ing habits Last Documented On 0 1:33PM ; [facility] Patient education about high fiber diet Last Documented On 0 1:33PM ; [facility] Patient education about low fat diet Last Documented On 0 1:33PM ; [facility] Patient education about low cholesterol diet Last Documented On 0 1:33PM ; [facility] Patient education about low carbohydrate diet Last Documented On 0 1:33PM ; [facility] Patient education about high protein diet Last Documented On 0 1:33PM ; [facility] Discussed concerns about exe rcise : promote physical activity Last Documented On 0 1:15PM ; [facility] provided active listenin g, support and helped patient process through current symptoms and stressors due to pain, loss of work and low frustration tolerance. ~[facility] discussed coping skills and supports that patient can implement inclduing meditation, mindfulness, and deep breathing activities. [facility] provided resources to patient to work on implementing. ~[facility] discussed with patient re-establishing care for therapy and provided patient with resource list. ~ Last Documented On 0 6:15PM ; [facility] Discussed nutritional needs teach healthy choices including fruits and vegetables Last Documented On 0 1:12PM ; [facility] Patient education about a pr oper diet Last Documented On 0 1:12PM ; [facility] Patient education about a pr oper diet Last Documented On 0 1:46PM ; [facility] Patient education about meal planning Last Documented On 0 1:46PM ; [facility] Education about changing eat ing habits Last Documented On 0 1:46PM ; [facility] Patient education about high fiber diet Last Documented On 0 1:46PM ; [facility] Patient education about low fat diet Last Documented On 0 1:46PM ; [facility] Patient education about low cholesterol diet Last Documented On 0 1:46PM ; [facility] Patient education about low carbohydrate diet Last Documented On 0 1:46PM ; [facility] Patient education about high protein diet Last Documented On 0 1:46PM ; [facility] Discussed concerns about exe rcise : promote physical activity Last Documented On 0 1:12PM ; [facility] Work Phone: [phone] 808-424810-27-2023 Evaluation note Includes: Assessments for all patient encounters Findings Encounter Date [Body mass index [BMI] 33.0- 33.9, adult] assessment of body mass index Medical Established Patient with Srinivasa Ed [employer] MECH[employer]IC 02/05/2023 Last Documented On 3 3:48PM ; [facility] Anxiety disorder NOS Medical Established Patient with Srinivasa Ed BLOCK MECHANIC 02/05/2023 Last Documented On 3 3:48PM ; [facility] Body mass index Medical Established Patient with Srinivasa Ed BLOCK MECHANIC 01/28/2023 Last Documented On 3 8:31PM ; [facility] [Body mass index [BMI] 32.0- 32.9, adult] assessment of body mass index Medical Established Patient with Srinivasa Ed BLOCK MECHANIC 12/31/2022 Last Documented On 3 5:25AM ; [facility] Uncomplicated mild persistent asthma Med ical Established Patient with Srinivasa Ed BLOCK MECHANIC 12/31/2022 Last Documented On 3 5:25AM ; [facility] [Body mass index [BMI] 33.0- 33.9, adult] assessment of body mass index Medical Established Patient with Srinivasa Ed [employer] MECHANIC 11/30/2022 Last Documented On 3 12:28PM ; [facility] Anxiety disorder NOS Medical Established Patient with Srinivasa Ed BLOCK MECHANIC 11/30/2022 Last Documented On 3 12:28PM ; [facility] Diabetes Risk Test Score was four score 11/30/2022 Medical Established Patient with Srinivasa Ed BLOCK MECHANIC 11/30/2022 Last Documented On 3 12:28PM ; [facility] Uncomplicated mild persistent asthma Med ical Established Patient with Srinivasa Jhaveri BLOCK MECH[employer]IC 11/30/2022 Last Documented On 3 12:28PM ; [facility] Visit for: routine adult H&P with abnormal findings Medical Established Patient with Srinivasa Jhaveri BLOCK MECHANIC 11/30/2022 Last Documented On 3 12:28PM ; [facility] [Body mass index [BMI] 30.0- 30.9, adult] assessment of body mass index Medical Established Patient with Srinivasa Boyceer BLOCK MECHANIC 01/22/2022 Last Documented On 2 6:17PM ; [facility] Dysuria Medical Established Patient with Srinivasa Ed BLOCK MECHANIC 01/22/2022 Last Documented On 2 6:17PM ; [facility] Bipolar schizoaffective disorder BH Esta blished Patient with Bharattameka WatkinsDíaz LPCC-S 12/11/2021 Last Documented On 2 2:31PM ; [facility] Assessment of body mass inde x [Body mass index [BMI] 26.0-26.9, adult] Medical Established Patient with Srinivasa Jhaveri BLOCK MECH[employer]IC 12/11/2021 Last Documented On 2 12:34PM ; [facility] Bipolar schizoaffective disorder BH Esta blished Patient with Bharattameka Díaz LPCC-S 11/25/2021 Last Documented On 2 1:25PM ; [facility] Anxiety disorder NOS Medical Established Patient with Traci Juma BLOCK MECHANIC 11/25/2021 Last Documented On 2 3:06PM ; [facility] Urinary tract infection Medical Establis hed Patient with Traci Juma BLOCK MECHANIC 11/25/2021 Last Documented On 2 3:06PM ; [facility] Z68.27 - Body mass index [BM I] 27.0-27.9, adult Medical Established Patient with Traci Juma BLOCK MECHANIC 11/25/2021 Last Documented On 2 3:06PM ; [facility] Anxiety disorder NOS Medical Established Patient with Traci Juma BLOCK MECHANIC 08/13/2021 Last Documented On 2 8:18AM ; [facility] Assessment of body mass index Medical Es tablished Patient with Traci Dennison [employer]CH[employer]IC 08/13/2021 Last Documented On 2 8:18AM ; [facility] Chronic gastritis without hemorrhage Med ical Established Patient with Traci Juma BLOCK MECHANIC 08/13/2021 Last Documented On 2 8:18AM ; [facility] Diverticulosis of intestine Medical Esta blished Patient with Traci Juma BLOCK MECHANIC 08/13/2021 Last Documented On 2 8:18AM ; [facility] Urinary tract infection Medical Establis hed Patient with Traci Juma BLOCK MECHANIC 08/13/2021 Last Documented On 2 8:18AM ; [facility] Anxiety disorder NOS Medical Established Patient with Traci Juma BLOCK MECHANIC 07/17/2021 Last Documented On 2 8:10AM ; [facility] Other hypothyroidism Medical Established Patient with Traci Juma BLOCK MECHANIC 07/17/2021 Last Documented On 2 8:10AM ; [facility] Upper respiratory infection Medical Esta blished Patient with Traci Juma BLOCK MECHANIC 07/17/2021 Last Documented On 2 8:10AM ; [facility] Visit for: routine adult H&P with abnormal findings Medical Established Patient with Traci Dennison BLOCK MECHANIC 07/17/2021 Last Documented On 2 8:10AM ; [facility] Visit for: screening for lip oid disorders Medical Established Patient with Traci Dennison BLOCK MECHANIC 07/17/2021 Last Documented On 2 8:10AM ; [facility] Vitamin B12 deficiency Medical Establish ed Patient with Traci Juma BLOCK MECHANIC 07/17/2021 Last Documented On 2 8:10AM ; [facility] Vitamin D deficiency Medical Established Patient with Traci Juma BLOCK MECHANIC 07/17/2021 Last Documented On 2 8:10AM ; [facility] Z68.28 - Body mass index [BM I] 28.0-28.9, adult Medical Established Patient with Traci Juma BLOCK MECHANIC 07/17/2021 Last Documented On 2 8:10AM ; [facility] Allergic rhinitis Telemedicine Establi sted Patient with Traci Juma BLOCK MECHANIC 07/16/2021 Last Documented On 2 8:23AM ; [facility] Exposure to COVID-19 Telemedicine Establ isted Patient with Traci Dennison [employer]IC 04/29/2021 Last Documented On 2 8:02PM ; [facility] Bipolar schizoaffective disorder Esta blished Patient with Farrah Jarrett LPCC-S 04/15/2021 Last Documented On 2 1:07PM ; [facility] Anxiety disorder NOS Medical Established Patient with Tracizachery Dennison BLOCK [employer]CHANIC 04/15/2021 Last Documented On 2 9:06AM ; [facility] Assessment of body mass index Medical Es tablished Patient with Traci Dennison [employer] MECHANIC 04/15/2021 Last Documented On 2 9:06AM ; [facility] Bipolar disorder NOS Medical Established Patient with Traci Dennison [employer] MECH[employer]IC 04/15/2021 Last Documented On 2 9:06AM ; [facility] Anxiety disorder NOS Telebehavioral H ealth with Farrah Jarrett LPCC-S 04/09/2021 Last Documented On 2 9:05AM ; [facility] Bipolar disorder NOS Telebehavioral H ealth with Farrah Jarrett LPCC-S 04/09/2021 Last Documented On 2 9:05AM ; [facility] Anxiety disorder NOS Established Patient with Hannah Short LISWS 04/03/2021 Last Documented On 1 7:15PM ; [facility] Bipolar I disorder, most rec ent episode, depressed Established Patient with Hannah Short LISWS 04/03/2021 Last Documented On 1 7:15PM ; [facility] Nicotine dependence Established Patient with Hannah Short LISWS 04/03/2021 Last Documented On 1 7:15PM ; [facility] Nicotine dependence Established Patient with Hannah Short LISWS 04/03/2021 Last Documented On 1 7:15PM ; [facility] Undifferentiated schizophren ia per patient reported history Established Patient with Hannah Short LISWS 04/03/2021 Last Documented On 1 7:15PM ; [facility] A home test was negative Medic al Established Patient with Traci Dennison [employer] 04/03/2021 Last Documented On 1 8:11PM ; [facility] Assessment of body mass index Medical Es tablished Patient with Traci Dennison [employer] 04/03/2021 Last Documented On 1 8:11PM ; [facility] Epilepsy, not intractable, w ithout status epilepticus Medical Established Patient with Traci Dennison [employer] 04/03/2021 Last Documented On 1 8:11PM ; [facility] Mixed affective bipolar diso rder, moderate Medical Established Patient with Traci Dennison [employer]IC 04/03/2021 Last Documented On 1 8:11PM ; [facility] Urinary tract infection Medical Establis hed Patient with Traci Dennison [employer] MECHANIC 04/03/2021 Last Documented On 1 8:11PM ; [facility] Visit for: screening for STD Medical Est ablished Patient with Traci Dennison [employer]CHANIC 04/03/2021 Last Documented On 1 8:11PM ; [facility] Assessment of visit for: scr eening for human immunodeficiency virus Medical Established Patient with Peggy Thrasher BLOCK MECHANIC 02/14/2021 Last Documented On 1 1:16PM ; [facility] Diabetes Risk Test Score was three score 02/14/2021 Medical Established Patient with Peggy Anna Marie BLOCK MECHANIC 02/14/2021 Last Documented On 1 1:16PM ; [facility] Diarrhea Medical Established Patient with Peggy Anna Marie BLOCK MECHANIC 02/14/2021 Last Documented On 1 1:16PM ; [facility] Nicotine dependence Medical Established Patient with Peggy Anna Marie BLOCK MECHANIC 02/14/2021 Last Documented On 1 1:16PM ; [facility] Z68.28 - Body mass index [BM I] 28.0-28.9, adult Medical Established Patient with Peggy Leoen BLOCK MECHANIC 02/14/2021 Last Documented On 1 1:16PM ; [facility] Cough Telemedicine Establisted Patient with Traci Dennison [employer] MECHANIC 01/01/2021 Last Documented On 1 6:31PM ; [facility] Fever Telemedicine Establisted Patient with Traci Dennison BLOCK MECHANIC 01/01/2021 Last Documented On 1 6:31PM ; [facility] Z20.822 - Contact with and (suspected) exposure to COVID-19 Telemedicine Establisted Patient with Traci Dennison [employer]CHANIC 01/01/2021 Last Documented On 1 6:31PM ; [facility] Bipolar I disorder, most rec ent episode, depressed Established Patient with Farrah Hernandezs LPCC-S 06/03/2020 Last Documented On 1 10:50PM ; [facility] Paranoid schizophrenia per p atient report Established Patient with Farrah Hernandezs LPCC-S 06/03/2020 Last Documented On 1 10:50PM ; [facility] Post-traumatic stress disord er per patient report Established Patient with Farrah Hernandezs LPCC-S 06/03/2020 Last Documented On 1 10:50PM ; [facility] 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 Patient with Traci Dennison [facility] 06/03/2020 Last Documented On 1 8:25AM ; [facility] Overweight Medical Established Patient with Traci Dennison [employer] 06/03/2020 Last Documented On 1 8:25AM ; [facility] Z68.29 - Body mass index [BM I] 29.0-29.9, adult Medical Established Patient with Traci Dennison [facility] 06/03/2020 Last Documented On 1 8:25AM ; [facility] Anxiety disorder NOS Medical Established Patient with Traci Dennison [employer]CHANIC 01/26/2020 Last Documented On 0 7:37PM ; [facility] Bipolar disorder NOS Medical Established Patient with Traci Dennison [employer] MECHANIC 01/26/2020 Last Documented On 0 7:37PM ; [facility] Infection of tooth Medical Established Patient w ith Traci Dennison [facility] 01/26/2020 Last Documented On 0 7:37PM ; [facility] Z68.20 - Body mass index [BM I] 20.0-20.9, adult Medical Established Patient with Traci Dennison [employer]CHANIC 01/26/2020 Last Documented On 0 7:37PM ; [facility] Bipolar I disorder, most rec ent episode, mixed Established Patient with Hannah Short LISWS 01/08/2020 Last Documented On 0 11:49AM ; [facility] Generalized anxiety disorder Establis hed Patient with Hannah Short LISWS 01/08/2020 Last Documented On 0 11:49AM ; [facility] Diabetes Risk Test Score was one score 01/08/2020 Medical Established Patient with Peggy Thrasher BLOCK MECHANIC 01/08/2020 Last Documented On 0 1:42PM ; [facility] Overweight Medical Established Patient with Peggy Thrasher BLOCK MECHANIC 01/08/2020 Last Documented On 0 1:42PM ; [facility] Z68.27 - Body mass index (BM I) 27.0-27.9, adult Medical Established Patient with Peggy Thrasher [employer] MECHANIC 01/08/2020 Last Documented On 0 1:42PM ; [facility] Bipolar I disorder, most rec ent episode, mixed Established Patient with Hannah Short LISWS 12/25/2019 Last Documented On 0 6:16PM ; [facility] Generalized anxiety disorder Establis hed Patient with Hannah Short LISWS 12/25/2019 Last Documented On 0 6:16PM ; [facility] Overweight Medical Established Patient with Peggy Thrasher BLOCK MECHANIC 12/25/2019 Last Documented On 0 1:54PM ; [facility] Z68.26 - Body mass index (BM I) 26.0-26.9, adult Medical Established Patient with Peggy Thrasher BLOCK MECHANIC 12/25/2019 Last Documented On 0 1:54PM ; [facility] Work Phone: 1([phone]) 478-832610-27-2023 Progress note* Progress note Date Encounter Last Documented by 02/05/2023 Medical Established Patient Last documented on 02/05/2023; 3:48 PM, Srinivasa Jhaveri CNP; [facility] Active Problems & Conditions - [...] clinical lab tests History of Present Illness Melody Fletcher is a 32 year old female. - [...] 02/05/2023 10:44 am BP-Sitting L106/71 mmHg Pulse Rate-Vmxfnhr86 bpm Temp-Oral98.1 F Czaadq21 in Gcorms570 lbs Body Mass Index33.1 kg/m2 Body Surface Area1.7 m2 Oxygen Fgftgjpymi96 % Vital Signs: - Systolic blood pressure [...] vaginitis Outside Labs/Microbiology: All 3 Urine Test Orwqxbqxi-Bqenopckl-Yhjlbxnkuvl, Urine Culture & Sensitivity ([id number]) Outside Labs/Microbiology: BD Affirm Diflucan 150 MG [...] Will - Declined to Provide Advance Directive [facility]10-27-2023 Instructions Includes: Instructions for all patient encounters Instructions to patient Intervention and counseling on cessation of tobacco use, 3-10 minutes Last Documented On 0 1:15PM ; [facility] Education and Decision Aids were provided during visit for: Discussed nutritional needs teach healthy choices including fruits and vegetables Last Documented On 3 10:48AM ; [facility] Patient education about a pr oper diet Last Documented On 3 10:48AM ; [facility] Discussed concerns about exe rcise : promote physical activity ~ ~Will give augmentin to cover sinuses and urinary tract ~ ~Will send out urine ~ ~Will give steriod due to patients lung sounds ~ ~Will increase symbicort ~ ~Follow up in one month Last Documented On 3 3:48PM ; [facility] Not requesting contraception Last Documented On 3 10:50AM ; [facility] Discussed nutritional needs teach healthy choices including fruits and vegetables Last Documented On 3 11:01AM ; [facility] Patient education about a pr oper diet Last Documented On 3 11:01AM ; [facility] Discussed concerns about exe rcise : promote physical activity ~ ~Follow up after ER visit Last Documented On 3 8:31PM ; [facility] Not requesting contraception Last Documented On 3 11:03AM ; [facility] Discussed nutritional needs teach healthy choices including fruits and vegetables Last Documented On 3 12:03PM ; [facility] Patient education about a pr oper diet Last Documented On 3 12:03PM ; [facility] Discussed concerns about exe rcise : promote physical activity ~ ~Will keep medication the same Last Documented On 3 4:46AM ; [facility] Not requesting contraception Last Documented On 3 12:04PM ; [facility] Discussed nutritional needs teach healthy choices including fruits and vegetables Last Documented On 3 9:09AM ; [facility] Patient education about a pr oper diet Last Documented On 3 9:09AM ; [facility] Patient education about an a sthma action plan Last Documented On 3 9:44AM ; [facility] Discussed concerns about exe rcise : promote physical activity ~ ~Will restart symbicort ~ ~Follow up in one month for asthma Last Documented On 3 12:28PM ; [facility] Discussed nutritional needs teach healthy choices including fruits and vegetables Last Documented On 2 10:58AM ; [facility] Patient education about a pr oper diet Last Documented On 2 10:58AM ; [facility] Discussed concerns about exe rcise : promote physical activity Last Documented On 2 10:58AM ; [facility] Discussed nutritional needs teach healthy choices including fruits and vegetables Last Documented On 2 11:41AM ; [facility] Patient education about a pr oper diet Last Documented On 2 11:41AM ; [facility] Discussed concerns about exe rcise : promote physical activity Last Documented On 2 11:41AM ; [facility] offered active listening and supportive feedback; normalized emotions and feelings, also provided pt time to process any current stressors ~P discussed benefits of counseling and supported pt in following through with scheduled appt. ~P encouraged pt to continue to make time to implement self-care regimen to assist in improving their mood Last Documented On 2 2:29PM ; [facility] Provided supportive listenin g and reflective feedback; monitored mood, explored symptoms, assessed functioning. ~Discussed medication use/compliance. ~Promoted use of healthy coping mechanisms and positive support, as needed Last Documented On 2 1:25PM ; [facility] Discussed nutritional needs teach healthy choices including fruits and vegetables Last Documented On 2 12:54PM ; [facility] Patient education about a pr oper diet Last Documented On 2 12:54PM ; [facility] Discussed concerns about exe rcise : promote physical activity Last Documented On 2 12:54PM ; [facility] Discussed nutritional needs teach healthy choices including fruits and vegetables Last Documented On 2 11:39AM ; [facility] Patient education about a pr oper diet Last Documented On 2 11:39AM ; [facility] Discussed concerns about exe rcise : promote physical activity Last Documented On 2 11:39AM ; [facility] Discussed nutritional needs teach healthy choices including fruits and vegetables Last Documented On 2 10:29AM ; [facility] Patient education about a pr oper diet Last Documented On 2 10:29AM ; [facility] Discussed concerns about exe rcise : promote physical activity Last Documented On 2 10:29AM ; [facility] Discussed current self-care methods/coping skills. ~Validated and normalized patient's feelings while assisting process recent events. ~Discussed ongoing counseling. ~Discussed lifestyle changes to address chronic illness. ~Supported patient's personal health goals Last Documented On 2 8:50PM ; [facility] Discussed nutritional needs teach healthy choices including fruits and vegetables Last Documented On 2 11:15AM ; [facility] Patient education about a pr oper diet Last Documented On 2 11:15AM ; [facility] Discussed concerns about exe rcise : promote physical activity Last Documented On 2 11:15AM ; [facility] Discussed current self-care methods/coping skills. ~Validated and normalized patient's feelings while assisting process recent events. ~Discussed ongoing mental health services. ~Discussed lifestyle changes to address chronic illness. ~Supported patient's personal health goals. ~ ~Reports feeling better since beginning new meds. Also voices and visual hallucinations have stopped; reports voices were not commanfing Last Documented On 2 8:54PM ; [facility] offered active and suppo rtive listening and normalized emotions and feelings. ~P discussed with patient and significant other in the room with her crisis resources. Patient is agreeable to contacting one of the crisis resources should moods worsen or call 911 or go to the Emergency Room. Patient reports that she can also speak with significant others Mom or go to her [employer] house. ~[facility] and PCP discussed plan to follow-up with psychiatry and counseling and a new referral being sent to [facility]. If patient is not accepted back as a patient with Dr. Dickerson, will look into other resources Last Documented On 1 7:15PM ; [facility] Discussed nutritional needs teach healthy choices including fruits and vegetables Last Documented On 1 1:18PM ; [facility] Patient education about a pr oper diet Last Documented On 1 1:18PM ; [facility] Discussed concerns about exe rcise : promote physical activity Last Documented On 1 1:18PM ; [facility] Discussed nutritional needs teach healthy choices including fruits and vegetables Last Documented On 1 10:37AM ; [facility] Patient education about a pr oper diet Last Documented On 1 10:37AM ; [facility] Discussed concerns about exe rcise : promote physical activity Last Documented On 1 10:37AM ; [facility] Explored current symptoms an d stressors. Educaated patient re importance of counseling and provided brief review of EMDR treatment. ~Encouraged patient to engage in ongoing counseling. ~ Last Documented On 1 10:50PM ; [facility] Discussed nutritional needs teach healthy choices including fruits and vegetables Last Documented On 1 6:53PM ; [facility] Patient education about a pr oper diet Last Documented On 1 6:53PM ; [facility] Discussed concerns about exe rcise : promote physical activity Last Documented On 1 6:53PM ; [facility] provided active listenin g, support and helped patient process through current symptoms and stressors related to mood and irritability. ~[facility] discussed coping skills that patient has tried as well as discussed potential benefit of counseling. ~ ~ Last Documented On 0 11:49AM ; [facility] Discussed nutritional needs teach healthy choices including fruits and vegetables Last Documented On 0 1:15PM ; [facility] Patient education about a pr oper diet Last Documented On 0 1:15PM ; [facility] Patient education about a pr oper diet Last Documented On 0 1:33PM ; [facility] Patient education about meal planning Last Documented On 0 1:33PM ; [facility] Education about changing eat ing habits Last Documented On 0 1:33PM ; [facility] Patient education about high fiber diet Last Documented On 0 1:33PM ; [facility] Patient education about low fat diet Last Documented On 0 1:33PM ; [facility] Patient education about low cholesterol diet Last Documented On 0 1:33PM ; [facility] Patient education about low carbohydrate diet Last Documented On 0 1:33PM ; [facility] Patient education about high protein diet Last Documented On 0 1:33PM ; [facility] Discussed concerns about exe rcise : promote physical activity Last Documented On 0 1:15PM ; [facility] provided active listenin g, support and helped patient process through current symptoms and stressors due to pain, loss of work and low frustration tolerance. ~[facility] discussed coping skills and supports that patient can implement inclduing meditation, mindfulness, and deep breathing activities. [facility] provided resources to patient to work on implementing. ~[facility] discussed with patient re-establishing care for therapy and provided patient with resource list. ~ Last Documented On 0 6:15PM ; [facility] Discussed nutritional needs teach healthy choices including fruits and vegetables Last Documented On 0 1:12PM ; [facility] Patient education about a pr oper diet Last Documented On 0 1:12PM ; [facility] Patient education about a pr oper diet Last Documented On 0 1:46PM ; [facility] Patient education about meal planning Last Documented On 0 1:46PM ; [facility] Education about changing eat ing habits Last Documented On 0 1:46PM ; [facility] Patient education about high fiber diet Last Documented On 0 1:46PM ; [facility] Patient education about low fat diet Last Documented On 0 1:46PM ; [facility] Patient education about low cholesterol diet Last Documented On 0 1:46PM ; [facility] Patient education about low carbohydrate diet Last Documented On 0 1:46PM ; [facility] Patient education about high protein diet Last Documented On 0 1:46PM ; [facility] Discussed concerns about exe rcise : promote physical activity Last Documented On 0 1:12PM ; [facility] Work Phone: [phone] Instructions Includes: Instructions for all patient encounters Instructions to patient Intervention and counseling on cessation of tobacco use, 3-10 minutes Last Documented On 0 1:15PM ; [facility] Education and Decision Aids were provided during visit for: Discussed nutritional needs teach healthy choices including fruits and vegetables Last Documented On 3 11:01AM ; [facility] Patient education about a pr oper diet Last Documented On 3 11:01AM ; [facility] Discussed concerns about exe rcise : promote physical activity ~ ~Follow up after ER visit Last Documented On 3 8:31PM ; [facility] Not requesting contraception Last Documented On 3 11:03AM ; [facility] Discussed nutritional needs teach healthy choices including fruits and vegetables Last Documented On 3 12:03PM ; [facility] Patient education about a pr oper diet Last Documented On 3 12:03PM ; [facility] Discussed concerns about exe rcise : promote physical activity ~ ~Will keep medication the same Last Documented On 3 4:46AM ; [facility] Not requesting contraception Last Documented On 3 12:04PM ; [facility] Discussed nutritional needs teach healthy choices including fruits and vegetables Last Documented On 3 9:09AM ; [facility] Patient education about a pr oper diet Last Documented On 3 9:09AM ; [facility] Patient education about an a sthma action plan Last Documented On 3 9:44AM ; [facility] Discussed concerns about exe rcise : promote physical activity ~ ~Will restart symbicort ~ ~Follow up in one month for asthma Last Documented On 3 12:28PM ; [facility] Discussed nutritional needs teach healthy choices including fruits and vegetables Last Documented On 2 10:58AM ; [facility] Patient education about a pr oper diet Last Documented On 2 10:58AM ; [facility] Discussed concerns about exe rcise : promote physical activity Last Documented On 2 10:58AM ; [facility] Discussed nutritional needs teach healthy choices including fruits and vegetables Last Documented On 2 11:41AM ; [facility] Patient education about a pr oper diet Last Documented On 2 11:41AM ; [facility] Discussed concerns about exe rcise : promote physical activity Last Documented On 2 11:41AM ; [facility] offered active listening and supportive feedback; normalized emotions and feelings, also provided pt time to process any current stressors ~[facility] discussed benefits of counseling and supported pt in following through with scheduled appt. ~[facility] encouraged pt to continue to make time to implement self-care regimen to assist in improving their mood Last Documented On 2 2:29PM ; [facility] Provided supportive listenin g and reflective feedback; monitored mood, explored symptoms, assessed functioning. ~Discussed medication use/compliance. ~Promoted use of healthy coping mechanisms and positive support, as needed Last Documented On 2 1:25PM ; [facility] Discussed nutritional needs teach healthy choices including fruits and vegetables Last Documented On 2 12:54PM ; [facility] Patient education about a pr oper diet Last Documented On 2 12:54PM ; [facility] Discussed concerns about exe rcise : promote physical activity Last Documented On 2 12:54PM ; [facility] Discussed nutritional needs teach healthy choices including fruits and vegetables Last Documented On 2 11:39AM ; [facility] Patient education about a pr oper diet Last Documented On 2 11:39AM ; [facility] Discussed concerns about exe rcise : promote physical activity Last Documented On 2 11:39AM ; [facility] Discussed nutritional needs teach healthy choices including fruits and vegetables Last Documented On 2 10:29AM ; [facility] Patient education about a pr oper diet Last Documented On 2 10:29AM ; [facility] Discussed concerns about exe rcise : promote physical activity Last Documented On 2 10:29AM ; [facility] Discussed current self-care methods/coping skills. ~Validated and normalized patient's feelings while assisting process recent events. ~Discussed ongoing counseling. ~Discussed lifestyle changes to address chronic illness. ~Supported patient's personal health goals Last Documented On 2 8:50PM ; [facility] Discussed nutritional needs teach healthy choices including fruits and vegetables Last Documented On 2 11:15AM ; [facility] Patient education about a pr oper diet Last Documented On 2 11:15AM ; [facility] Discussed concerns about exe rcise : promote physical activity Last Documented On 2 11:15AM ; [facility] Discussed current self-care methods/coping skills. ~Validated and normalized patient's feelings while assisting process recent events. ~Discussed ongoing mental health services. ~Discussed lifestyle changes to address chronic illness. ~Supported patient's personal health goals. ~ ~Reports feeling better since beginning new meds. Also voices and visual hallucinations have stopped; reports voices were not commanfing Last Documented On 2 8:54PM ; [facility] offered active and suppo rtive listening and [...] resources Last Documented On 1 7:15PM ; [facility] Discussed nutritional needs teach healthy choices including fruits and vegetables Last Documented On 1 1:18PM ; [facility] Patient education about a pr oper diet Last Documented On 1 1:18PM ; [facility] Discussed concerns about exe rcise : promote physical activity Last Documented On 1 1:18PM ; [facility] Discussed nutritional needs teach healthy choices including fruits and vegetables Last Documented On 1 10:37AM ; [facility] Patient education about a pr oper diet Last Documented On 1 10:37AM ; [facility] Discussed concerns about exe rcise : promote physical activity Last Documented On 1 10:37AM ; [facility] Explored current symptoms an d stressors. Educaated patient re importance of counseling and provided brief review of EMDR treatment. ~Encouraged patient to engage in ongoing counseling. ~ Last Documented On 1 10:50PM ; [facility] Discussed nutritional needs teach healthy choices including fruits and vegetables Last Documented On 1 6:53PM ; [facility] Patient education about a pr oper diet Last Documented On 1 6:53PM ; [facility] Discussed concerns about exe rcise : promote physical activity Last Documented On 1 6:53PM ; [facility] provided active listenin g, support and helped patient process through current symptoms and stressors related to mood and irritability. ~[facility] discussed coping skills that patient has tried as well as discussed potential benefit of counseling. ~ ~ Last Documented On 0 11:49AM ; [facility] Discussed nutritional needs teach healthy choices including fruits and vegetables Last Documented On 0 1:15PM ; [facility] Patient education about a pr oper diet Last Documented On 0 1:15PM ; [facility] Patient education about a pr oper diet Last Documented On 0 1:33PM ; [facility] Patient education about meal planning Last Documented On 0 1:33PM ; [facility] Education about changing eat ing habits Last Documented On 0 1:33PM ; [facility] Patient education about high fiber diet Last Documented On 0 1:33PM ; [facility] Patient education about low fat diet Last Documented On 0 1:33PM ; [facility] Patient education about low cholesterol diet Last Documented On 0 1:33PM ; [facility] Patient education about low carbohydrate diet Last Documented On 0 1:33PM ; [facility] Patient education about high protein diet Last Documented On 0 1:33PM ; [facility] Discussed concerns about exe rcise : promote physical activity Last Documented On 0 1:15PM ; [facility] provided active listenin g, support and helped patient process through current symptoms and stressors due to pain, loss of work and low frustration tolerance. ~[facility] discussed coping skills and supports that patient can implement inclduing meditation, mindfulness, and deep breathing activities. [facility] provided resources to patient to work on implementing. ~[facility] discussed with patient re-establishing care for therapy and provided patient with resource list. ~ Last Documented On 0 6:15PM ; [facility] Discussed nutritional needs teach healthy choices including fruits and vegetables Last Documented On 0 1:12PM ; [facility] Patient education about a pr oper diet Last Documented On 0 1:12PM ; [facility] Patient education about a pr oper diet Last Documented On 0 1:46PM ; [facility] Patient education about meal planning Last Documented On 0 1:46PM ; [facility] Education about changing eat ing habits Last Documented On 0 1:46PM ; [facility] Patient education about high fiber diet Last Documented On 0 1:46PM ; [facility] Patient education about low fat diet Last Documented On 0 1:46PM ; [facility] Patient education about low cholesterol diet Last Documented On 0 1:46PM ; [facility] Patient education about low carbohydrate diet Last Documented On 0 1:46PM ; [facility] Patient education about high protein diet Last Documented On 0 1:46PM ; [facility] Discussed concerns about exe rcise : promote physical activity Last Documented On 0 1:12PM ; [facility] Work Phone: [phone]) [phone] Evaluation note Includes: Assessments for all patient encounters Findings Encounter Date Body mass index Medical Established Patient with Srinivasa Ed [employer] 01/28/2023 Last Documented On 3 8:31PM ; [facility] [Body mass index [BMI] 32.0- 32.9, adult] assessment of body mass index Medical Established Patient with Srinivasa Ed [employer] 12/31/2022 Last Documented On 3 5:25AM ; [facility] Uncomplicated mild persistent asthma Med ical Established Patient with Srinivasa Ed [employer]CH[employer] 12/31/2022 Last Documented On 3 5:25AM ; [facility] [Body mass index [BMI] 33.0- 33.9, adult] assessment of body mass index Medical Established Patient with Srinivasa Ed [employer] 11/30/2022 Last Documented On 3 12:28PM ; [facility] Anxiety disorder NOS Medical Established Patient with Srinivasa Ed [employer] 11/30/2022 Last Documented On 3 12:28PM ; [facility] Diabetes Risk Test Score was four score 11/30/2022 Medical Established Patient with Srinivasa Ed [employer] 11/30/2022 Last Documented On 3 12:28PM ; [facility] Uncomplicated mild persistent asthma Med ical Established Patient with Srinivasa Ed [employer] 11/30/2022 Last Documented On 3 12:28PM ; [facility] Visit for: routine adult H&P with abnormal findings Medical Established Patient with Srinivasa Ed [employer] 11/30/2022 Last Documented On 3 12:28PM ; [facility] [Body mass index [BMI] 30.0- 30.9, adult] assessment of body mass index Medical Established Patient with Srinivasa Ed [employer] 01/22/2022 Last Documented On 2 6:17PM ; [facility] Dysuria Medical Established Patient with Srinivasa Ed [employer] 01/22/2022 Last Documented On 2 6:17PM ; [facility] Bipolar schizoaffective disorder BH Esta blished Patient with Bharattameka Díaz LPCC-S 12/11/2021 Last Documented On 2 2:31PM ; [facility] Assessment of body mass inde x [Body mass index [BMI] 26.0-26.9, adult] Medical Established Patient with Srinivasa Ed [employer] 12/11/2021 Last Documented On 2 12:34PM ; [facility] Bipolar schizoaffective disorder BH Esta blished Patient with Bharattameka Díaz LPCC-S 11/25/2021 Last Documented On 2 1:25PM ; [facility] Anxiety disorder NOS Medical Established Patient with Traci Juma [employer] 11/25/2021 Last Documented On 2 3:06PM ; [facility] Urinary tract infection Medical Establis hed Patient with Traci Juma [employer] 11/25/2021 Last Documented On 2 3:06PM ; [facility] Z68.27 - Body mass index [BM I] 27.0-27.9, adult Medical Established Patient with Traci Juma [employer] 11/25/2021 Last Documented On 2 3:06PM ; [facility] Anxiety disorder NOS Medical Established Patient with Traci Juma [employer] 08/13/2021 Last Documented On 2 8:18AM ; [facility] Assessment of body mass index Medical Es tablished Patient with Traci Juma [employer] 08/13/2021 Last Documented On 2 8:18AM ; [facility] Chronic gastritis without hemorrhage Med ical Established Patient with Traci Dennison [employer] 08/13/2021 Last Documented On 2 8:18AM ; [facility] Diverticulosis of intestine Medical Esta blished Patient with Traci Juma [employer] 08/13/2021 Last Documented On 2 8:18AM ; [facility] Urinary tract infection Medical Establis hed Patient with Traci Juma [employer] 08/13/2021 Last Documented On 2 8:18AM ; [facility] Anxiety disorder NOS Medical Established Patient with Traci Juma [employer] 07/17/2021 Last Documented On 2 8:10AM ; [facility] Other hypothyroidism Medical Established Patient with Traci Dennison [employer] 07/17/2021 Last Documented On 2 8:10AM ; [facility] Upper respiratory infection Medical Esta blished Patient with Traci Dennison [employer] 07/17/2021 Last Documented On 2 8:10AM ; [facility] Visit for: routine adult H&P with abnormal findings Medical Established Patient with Traci Dennison [employer] 07/17/2021 Last Documented On 2 8:10AM ; [facility] Visit for: screening for lip oid disorders Medical Established Patient with Traci Dennison [employer] 07/17/2021 Last Documented On 2 8:10AM ; [facility] Vitamin B12 deficiency Medical Establish ed Patient with Traci Dennison [employer] 07/17/2021 Last Documented On 2 8:10AM ; [facility] Vitamin D deficiency Medical Established Patient with Traci Juma [employer] 07/17/2021 Last Documented On 2 8:10AM ; [facility] Z68.28 - Body mass index [BM I] 28.0-28.9, adult Medical Established Patient with Traci Dennison [employer] 07/17/2021 Last Documented On 2 8:10AM ; [facility] Allergic rhinitis Telemedicine Establi sted Patient with Traci Dennison [employer] 07/16/2021 Last Documented On 2 8:23AM ; [facility] Exposure to COVID-19 Telemedicine Establ isted Patient with Traci Dennison [employer] 04/29/2021 Last Documented On 2 8:02PM ; [facility] Bipolar schizoaffective disorder Esta blished Patient with Farrah Jarrett LPCC-S 04/15/2021 Last Documented On 2 1:07PM ; [facility] Anxiety disorder NOS Medical Established Patient with Traci Dennison [employer] 04/15/2021 Last Documented On 2 9:06AM ; [facility] Assessment of body mass index Medical Es tablished Patient with Traci Dennison [employer] 04/15/2021 Last Documented On 2 9:06AM ; [facility] Bipolar disorder NOS Medical Established Patient with Traci Dennison [employer] 04/15/2021 Last Documented On 2 9:06AM ; [facility] Anxiety disorder NOS Telebehavioral H ealth with Farrah Jarrett LPCC-S 04/09/2021 Last Documented On 2 9:05AM ; [facility] Bipolar disorder NOS Telebehavioral H ealth with Farrah Jarrett [facility] 04/09/2021 Last Documented On 2 9:05AM ; [facility] Anxiety disorder NOS Established Patient with Hannah Short [facility]IS[facility] 04/03/2021 Last Documented On 1 7:15PM ; [facility] Bipolar I disorder, most rec ent episode, depressed Established Patient with Hannah Short LISWS 04/03/2021 Last Documented On 1 7:15PM ; [facility] Nicotine dependence Established Patient with Hannah Short LISWS 04/03/2021 Last Documented On 1 7:15PM ; [facility] Nicotine dependence Established Patient with Hannah Short LISWS 04/03/2021 Last Documented On 1 7:15PM ; [facility] Undifferentiated schizophren ia per patient reported history Established Patient with Hannah Short LISWS 04/03/2021 Last Documented On 1 7:15PM ; [facility] A home test was negative Medic al Established Patient with Traci Dennison [employer] 04/03/2021 Last Documented On 1 8:11PM ; [facility] Assessment of body mass index Medical Es tablished Patient with Traci Dennison [employer] 04/03/2021 Last Documented On 1 8:11PM ; [facility] Epilepsy, not intractable, w ithout status epilepticus Medical Established Patient with Traci Dennison [employer] 04/03/2021 Last Documented On 1 8:11PM ; [facility] Mixed affective bipolar diso rder, moderate Medical Established Patient with Traci Dennison [employer] 04/03/2021 Last Documented On 1 8:11PM ; [facility] Urinary tract infection Medical Establis hed Patient with Traci Dennison [facility] 04/03/2021 Last Documented On 1 8:11PM ; [facility] Visit for: screening for STD Medical Est ablished Patient with Traci Dennison [facility] 04/03/2021 Last Documented On 1 8:11PM ; [facility] Assessment of visit for: scr eening for human immunodeficiency virus Medical Established Patient with Peggy Thrasher [facility] 02/14/2021 Last Documented On 1 1:16PM ; [facility] Diabetes Risk Test Score was three score 02/14/2021 Medical Established Patient with Peggy Thrasher [facility] 02/14/2021 Last Documented On 1 1:16PM ; [facility] Diarrhea Medical Established Patient with Peggy Thrasher [facility] 02/14/2021 Last Documented On 1 1:16PM ; [facility] Nicotine dependence Medical Established Patient with Peggy Thrasher [facility] 02/14/2021 Last Documented On 1 1:16PM ; [facility] Z68.28 - Body mass index [BM I] 28.0-28.9, adult Medical Established Patient with Peggy Thrasher [facility] 02/14/2021 Last Documented On 1 1:16PM ; [facility] Cough Telemedicine Establisted Patient with Traci Dennison [employer] 01/01/2021 Last Documented On 1 6:31PM ; [facility] Fever Telemedicine Establisted Patient with Traci Dennison [employer] 01/01/2021 Last Documented On 1 6:31PM ; [facility] Z20.822 - Contact with and (suspected) exposure to COVID-19 Telemedicine Establisted Patient with Traci Dennison [employer] 01/01/2021 Last Documented On 1 6:31PM ; [facility] Bipolar I disorder, most rec ent episode, depressed Established Patient with Farrah Jarrett [facility] 06/03/2020 Last Documented On 1 10:50PM ; [facility] Paranoid schizophrenia per p atient report Established Patient with Farrah Hernandezs [facility] 06/03/2020 Last Documented On 1 10:50PM ; [facility] Post-traumatic stress disord er per patient report Established Patient with Farrah Jarrett [facility] 06/03/2020 Last Documented On 1 10:50PM ; [facility] 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 Patient with Traci Dennison [facility] 06/03/2020 Last Documented On 1 8:25AM ; [facility] Overweight Medical Established Patient with Traci Dennison [facility] 06/03/2020 Last Documented On 1 8:25AM ; [facility] Z68.29 - Body mass index [BM I] 29.0-29.9, adult Medical Established Patient with Traci Dennison [facility] 06/03/2020 Last Documented On 1 8:25AM ; [facility] Anxiety disorder NOS Medical Established Patient with Traci Dennison [facility] 01/26/2020 Last Documented On 0 7:37PM ; [facility] Bipolar disorder NOS Medical Established Patient with Traci Dennison [facility] 01/26/2020 Last Documented On 0 7:37PM ; [facility] Infection of tooth Medical Established Patient w ith Traci Dennison [facility] 01/26/2020 Last Documented On 0 7:37PM ; [facility] Z68.20 - Body mass index [BM I] 20.0-20.9, adult Medical Established Patient with Traci Dennison [facility] 01/26/2020 Last Documented On 0 7:37PM ; [facility] Bipolar I disorder, most rec ent episode, mixed Established Patient with Hannah Short [facility] 01/08/2020 Last Documented On 0 11:49AM ; [facility] Generalized anxiety disorder Establis hed Patient with Hannah Short [facility] 01/08/2020 Last Documented On 0 11:49AM ; [facility] Diabetes Risk Test Score was one score 01/08/2020 Medical Established Patient with Peggy Anna Marie [facility] 01/08/2020 Last Documented On 0 1:42PM ; [facility] Overweight Medical Established Patient with Peggy Anna Marie [facility] 01/08/2020 Last Documented On 0 1:42PM ; [facility] Z68.27 - Body mass index (BM I) 27.0-27.9, adult Medical Established Patient with Peggy Anna Marie [facility] 01/08/2020 Last Documented On 0 1:42PM ; [facility] Bipolar I disorder, most rec ent episode, mixed Established Patient with Hannah Short [facility] 12/25/2019 Last Documented On 0 6:16PM ; [facility] Generalized anxiety disorder Establis hed Patient with Hannah Short [facility] 12/25/2019 Last Documented On 0 6:16PM ; [facility] Overweight Medical Established Patient with Peggy Anna Marie [facility] 12/25/2019 Last Documented On 0 1:54PM ; [facility] Z68.26 - Body mass index (BM I) 26.0-26.9, adult Medical Established Patient with Peggy Anna Marie [facility] 12/25/2019 Last Documented On 0 1:54PM ; [facility] Work Phone: 1(545) 529-846310-19-2023 Progress note* Progress note Date Encounter Last Documented by 01/28/2023 Medical Established Patient Last documented on 02/01/2023; 8:31 PM, Srinivasa Jhaveri CNP; [facility] Active Problems & Conditions - [...] clinical lab tests History of Present Illness Melody Fletcher is a 32 year old female. - [...] BP-Sitting L118/75 mmHg BP Cuff SizeLarge Pulse Rate-Mvhhlmf78 bpm Temp-Oral98.4 F Ofzbbx64 in Linplc464 lbs 12.8 oz Body Mass Index32.7 kg/m2 Body Surface Area1.7 m2 Oxygen Wjdslveboc82 % Vital Signs: - Systolic blood pressure [...] Will - Declined to Provide Advance Directive [facility]09-21-2023 Evaluation note Includes: Assessments for all patient encounters Findings Encounter Date [Body mass index [BMI] 32.0- 32.9, adult] assessment of body mass index Medical Established Patient with Srinivasa Jhaveri [facility] 12/31/2022 Last Documented On 3 5:25AM ; [facility] Uncomplicated mild persistent asthma Med ical Established Patient with Srinivasa Jhaveri [facility] 12/31/2022 Last Documented On 3 5:25AM ; [facility] [Body mass index [BMI] 33.0- 33.9, adult] assessment of body mass index Medical Established Patient with Srinivasa Ed [facility] 11/30/2022 Last Documented On 3 12:28PM ; [facility] Anxiety disorder NOS Medical Established Patient with Srinivasa Ed [employer] 11/30/2022 Last Documented On 3 12:28PM ; [facility] Diabetes Risk Test Score was four score 11/30/2022 Medical Established Patient with Srinivasa Ed [employer] 11/30/2022 Last Documented On 3 12:28PM ; [facility] Uncomplicated mild persistent asthma Med ical Established Patient with Srinivasa Ed [employer] [facility] 11/30/2022 Last Documented On 3 12:28PM ; [facility] Visit for: routine adult H&P with abnormal findings Medical Established Patient with Srinivasa De [employer] [facility] 11/30/2022 Last Documented On 3 12:28PM ; [facility] [Body mass index [BMI] 30.0- 30.9, adult] assessment of body mass index Medical Established Patient with Srinivasa Boyceer [facility] 01/22/2022 Last Documented On 2 6:17PM ; [facility] Dysuria Medical Established Patient with Srinivasa Ed [employer] [facility] 01/22/2022 Last Documented On 2 6:17PM ; [facility] Bipolar schizoaffective disorder BH Esta blished Patient with Bharattameka Díaz [facility] 12/11/2021 Last Documented On 2 2:31PM ; [facility] Assessment of body mass inde x [Body mass index [BMI] 26.0-26.9, adult] Medical Established Patient with Srinivasa Ed [employer] 12/11/2021 Last Documented On 2 12:34PM ; [facility] Bipolar schizoaffective disorder BH Esta blished Patient with Bharat Díaz [facility] 11/25/2021 Last Documented On 2 1:25PM ; [facility] Anxiety disorder NOS Medical Established Patient with Traci Juma [employer] [facility] 11/25/2021 Last Documented On 2 3:06PM ; [facility] Urinary tract infection Medical Establis hed Patient with Traci Juma [employer] [facility] 11/25/2021 Last Documented On 2 3:06PM ; [facility] Z68.27 - Body mass index [BM I] 27.0-27.9, adult Medical Established Patient with Traci Juma [employer] 11/25/2021 Last Documented On 2 3:06PM ; [facility] Anxiety disorder NOS Medical Established Patient with Traci Juma [employer] [facility] 08/13/2021 Last Documented On 2 8:18AM ; [facility] Assessment of body mass index Medical Es tablished Patient with Traci Juma [employer] 08/13/2021 Last Documented On 2 8:18AM ; [facility] Chronic gastritis without hemorrhage Med ical Established Patient with Traci Juma [employer] [facility] 08/13/2021 Last Documented On 2 8:18AM ; [facility] Diverticulosis of intestine Medical Esta blished Patient with Traci Juma [employer] [facility] 08/13/2021 Last Documented On 2 8:18AM ; [facility] Urinary tract infection Medical Establis hed Patient with Traci Juma [employer] [facility] 08/13/2021 Last Documented On 2 8:18AM ; [facility] Anxiety disorder NOS Medical Established Patient with Traci Juma [facility] 07/17/2021 Last Documented On 2 8:10AM ; [facility] Other hypothyroidism Medical Established Patient with Traci Juma [employer] [facility] 07/17/2021 Last Documented On 2 8:10AM ; [facility] Upper respiratory infection Medical Esta blished Patient with Traci Juma [employer] [facility] 07/17/2021 Last Documented On 2 8:10AM ; [facility] Visit for: routine adult H&P with abnormal findings Medical Established Patient with Traci Juma [employer] [facility] 07/17/2021 Last Documented On 2 8:10AM ; [facility] Visit for: screening for lip oid disorders Medical Established Patient with Traci Juma [employer] 07/17/2021 Last Documented On 2 8:10AM ; [facility] Vitamin B12 deficiency Medical Establish ed Patient with Traci Juma [employer] [facility] 07/17/2021 Last Documented On 2 8:10AM ; [facility] Vitamin D deficiency Medical Established Patient with Traci Dennison [facility] 07/17/2021 Last Documented On 2 8:10AM ; [facility] Z68.28 - Body mass index [BM I] 28.0-28.9, adult Medical Established Patient with Traci Dennison [facility] 07/17/2021 Last Documented On 2 8:10AM ; [facility] Allergic rhinitis Telemedicine Establi sted Patient with Traci Dennison [employer] [facility] 07/16/2021 Last Documented On 2 8:23AM ; [facility] Exposure to COVID-19 Telemedicine Establ isted Patient with Traci Dennison [facility] 04/29/2021 Last Documented On 2 8:02PM ; [facility] Bipolar schizoaffective disorder BH Esta blished Patient with Farrah Jarrett [facility] 04/15/2021 Last Documented On 2 1:07PM ; [facility] Anxiety disorder NOS Medical Established Patient with Traci Dennison [employer] [facility] 04/15/2021 Last Documented On 2 9:06AM ; [facility] Assessment of body mass index Medical Es tablished Patient with Traci Dennison [employer] [facility] 04/15/2021 Last Documented On 2 9:06AM ; [facility] Bipolar disorder NOS Medical Established Patient with Traci Dennison [employer] 04/15/2021 Last Documented On 2 9:06AM ; [facility] Anxiety disorder NOS Telebehavioral H ealth with Farrah Jarrett [facility] 04/09/2021 Last Documented On 2 9:05AM ; [facility] Bipolar disorder NOS Telebehavioral H ealth with Farrah Jarrett [facility] 04/09/2021 Last Documented On 2 9:05AM ; [facility] Anxiety disorder NOS Established Patient with Hannah Short [facility] 04/03/2021 Last Documented On 1 7:15PM ; [facility] Bipolar I disorder, most rec ent episode, depressed Established Patient with Hannah Short [facility] 04/03/2021 Last Documented On 1 7:15PM ; [facility] Nicotine dependence Established Patient with Hannah Short [facility] 04/03/2021 Last Documented On 1 7:15PM ; [facility] Nicotine dependence Established Patient with Hannah Short [facility] 04/03/2021 Last Documented On 1 7:15PM ; [facility] Undifferentiated schizophren ia per patient reported history Established Patient with Hannah Short [facility] 04/03/2021 Last Documented On 1 7:15PM ; [facility] A home test was negative Medic al Established Patient with Traci Dennison [facility] 04/03/2021 Last Documented On 1 8:11PM ; [facility] Assessment of body mass index Medical Es tablished Patient with Traci Dennison [employer] [facility] 04/03/2021 Last Documented On 1 8:11PM ; [facility] Epilepsy, not intractable, w ithout status epilepticus Medical Established Patient with Traci Dennison [employer] 04/03/2021 Last Documented On 1 8:11PM ; [facility] Mixed affective bipolar diso rder, moderate Medical Established Patient with Traci Dennison [employer] 04/03/2021 Last Documented On 1 8:11PM ; [facility] Urinary tract infection Medical Establis hed Patient with Traci Dennison [employer] [facility] 04/03/2021 Last Documented On 1 8:11PM ; [facility] Visit for: screening for STD Medical Est ablished Patient with Traci Dennison [facility] 04/03/2021 Last Documented On 1 8:11PM ; [facility] Assessment of visit for: scr eening for human immunodeficiency virus Medical Established Patient with Peggyisis Thrasher [facility] 02/14/2021 Last Documented On 1 1:16PM ; [facility] Diabetes Risk Test Score was three score 02/14/2021 Medical Established Patient with Peggy Thrasher [facility] 02/14/2021 Last Documented On 1 1:16PM ; [facility] Diarrhea Medical Established Patient with Peggy Thrasher [facility] 02/14/2021 Last Documented On 1 1:16PM ; [facility] Nicotine dependence Medical Established Patient with Peggy Thrasher [facility] 02/14/2021 Last Documented On 1 1:16PM ; [facility] Z68.28 - Body mass index [BM I] 28.0-28.9, adult Medical Established Patient with Peggy Thrasher [facility] 02/14/2021 Last Documented On 1 1:16PM ; [facility] Cough Telemedicine Establisted Patient with Traci Dennison [facility] 01/01/2021 Last Documented On 1 6:31PM ; [facility] Fever Telemedicine Establisted Patient with Traci Dennison [facility] 01/01/2021 Last Documented On 1 6:31PM ; [facility] Z20.822 - Contact with and (suspected) exposure to COVID-19 Telemedicine Establisted Patient with Traci Dennison [facility] 01/01/2021 Last Documented On 1 6:31PM ; [facility] Bipolar I disorder, most rec ent episode, depressed Established Patient with Farrah Hernandezs [facility] 06/03/2020 Last Documented On 1 10:50PM ; [facility] Paranoid schizophrenia per p atient report Established Patient with Farrahmatthew Klinemons [facility] 06/03/2020 Last Documented On 1 10:50PM ; [facility] Post-traumatic stress disord er per patient report Established Patient with Farrah Klinemons [facility] 06/03/2020 Last Documented On 1 10:50PM ; [facility] 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 Patient with Traci Dennison [facility] 06/03/2020 Last Documented On 1 8:25AM ; [facility] Overweight Medical Established Patient with Traci Dennison [facility] 06/03/2020 Last Documented On 1 8:25AM ; [facility] Z68.29 - Body mass index [BM I] 29.0-29.9, adult Medical Established Patient with Traci Dennison [facility] 06/03/2020 Last Documented On 1 8:25AM ; [facility] Anxiety disorder NOS Medical Established Patient with Traci Dennison [employer] 01/26/2020 Last Documented On 0 7:37PM ; [facility] Bipolar disorder NOS Medical Established Patient with Traci Dennison [employer] 01/26/2020 Last Documented On 0 7:37PM ; [facility] Infection of tooth Medical Established Patient w ith Traci Dennison [facility] 01/26/2020 Last Documented On 0 7:37PM ; [facility] Z68.20 - Body mass index [BM I] 20.0-20.9, adult Medical Established Patient with Traci Dennison [employer] [facility] 01/26/2020 Last Documented On 0 7:37PM ; [facility] Bipolar I disorder, most rec ent episode, mixed Established Patient with Hannah Short [facility] 01/08/2020 Last Documented On 0 11:49AM ; [facility] Generalized anxiety disorder Establis hed Patient with Hannah Short [facility] 01/08/2020 Last Documented On 0 11:49AM ; [facility] Diabetes Risk Test Score was one score 01/08/2020 Medical Established Patient with Peggy Anna Marie [facility] 01/08/2020 Last Documented On 0 1:42PM ; [facility] Overweight Medical Established Patient with Peggy Anna Marie [employer] 01/08/2020 Last Documented On 0 1:42PM ; [facility] Z68.27 - Body mass index (BM I) 27.0-27.9, adult Medical Established Patient with Peggy Anna Marie [employer] 01/08/2020 Last Documented On 0 1:42PM ; [facility] Bipolar I disorder, most rec ent episode, mixed Established Patient with Hannah Short [facility] 12/25/2019 Last Documented On 0 6:16PM ; [facility] Generalized anxiety disorder BH Establis hed Patient with Hannah Short [facility] 12/25/2019 Last Documented On 0 6:16PM ; [facility] Overweight Medical Established Patient with Peggy Anna Marie [employer] 12/25/2019 Last Documented On 0 1:54PM ; [facility] Z68.26 - Body mass index (BM I) 26.0-26.9, adult Medical Established Patient with Peggy Thrasher [facility] 12/25/2019 Last Documented On 0 1:54PM ; [facility] Work Phone: 1(899) 308-468309-21-2023 Progress note* Progress note Date Encounter Last Documented by 12/31/2022 Medical Established Patient Last documented on 01/05/2023; 5:25 AM, Srinivasa Jhaveri [employer]; [facility] Active Problems & Conditions - [...] the emergency room. Prior encounters [facility] [place]. - Data to be reviewed: no clinical lab tests History of Present Illness Melody Fletcher is a 32 year old female. - [...] times daily, 30 days, 5 refills - Jzvmglymxy-YXOL-Efjuxuqd 50-325-40 MG Oral Tablet take 1 tablet [...] BP-Sitting L108/76 mmHg BP Cuff SizeRegular Pulse Rate-Aogbdyn42 bpm Temp-Oral98.1 F Isyhti57 in Aczezc999 lbs Body Mass Index32.9 kg/m2 Body Surface Area1.7 m2 Oxygen Dqzbnawllz73 % Vital Signs: - Systolic blood pressure [...] Will - Declined to Provide Advance Directive [facility]08-21-2023 History general Narrative - Reported Includes: Medical History in patient's chart Description Last Updated Not planning to have a baby in the next 12 months 11/30/2022 Last Documented On 3 12:28PM ; [facility] History of anxiety disorder NOS 07/18/19 22 Last Documented On 2 8:10AM ; [facility] No previous hospitalizations 04/03/2021 Last Documented On 1 8:11PM ; [facility] History of complete colonoscopy 04/03/20 21 Last Documented On 1 8:11PM ; [facility] Epilepsy 12/25/2019 Last Documented On 0 1:54PM ; [facility] 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 Last Documented On 0 1:54PM ; [facility] Ovarian cyst 12/25/2019 Last Documented On 0 1:54PM ; [facility] Post-traumatic stress disorder 0 Last Documented On 0 1:54PM ; [facility] History of asthma 12/25/2019 Last Documented On 0 1:54PM ; [facility] History of schizophrenia 12/25/2019 Last Documented On 0 1:54PM ; [facility] History of bipolar disorder NOS 12/25/19 20 Last Documented On 0 1:54PM ; [facility] History of depression 12/25/2019 Last Documented On 0 1:54PM ; [facility] History of psychiatric disorders 020 Last Documented On 0 1:54PM ; [facility] Work Phone: 1(300) 916-756608-21-2023 History general Narrative - Reported Includes: Medical History in patient's chart Description Last Updated Not planning to have a baby in the next 12 months 11/30/2022 Last Documented On 3 12:28PM ; [facility] History of anxiety disorder NOS 07/18/19 22 Last Documented On 2 8:10AM ; [facility] No previous hospitalizations 04/03/2021 Last Documented On 1 8:11PM ; [facility] History of complete colonoscopy 04/03/20 21 Last Documented On 1 8:11PM ; [facility] Epilepsy 12/25/2019 Last Documented On 0 1:54PM ; [facility] 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 Last Documented On 0 1:54PM ; [facility] Ovarian cyst 12/25/2019 Last Documented On 0 1:54PM ; [facility] Post-traumatic stress disorder 0 Last Documented On 0 1:54PM ; [facility] History of asthma 12/25/2019 Last Documented On 0 1:54PM ; [facility] History of schizophrenia 12/25/2019 Last Documented On 0 1:54PM ; [facility] History of bipolar disorder NOS 12/25/19 20 Last Documented On 0 1:54PM ; [facility] History of depression 12/25/2019 Last Documented On 0 1:54PM ; [facility] History of psychiatric disorders 020 Last Documented On 0 1:54PM ; [facility] Work Phone: 1(666) 544-418408-21-2023 History general Narrative - Reported Includes: Medical History in patient's chart Description Last Updated Not planning to have a baby in the next 12 months 11/30/2022 Last Documented On 3 12:28PM ; [facility] History of anxiety disorder NOS 07/18/19 22 Last Documented On 2 8:10AM ; [facility] No previous hospitalizations 04/03/2021 Last Documented On 1 8:11PM ; [facility] History of complete colonoscopy 04/03/20 21 Last Documented On 1 8:11PM ; [facility] Epilepsy 12/25/2019 Last Documented On 0 1:54PM ; [facility] 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 Last Documented On 0 1:54PM ; [facility] Ovarian cyst 12/25/2019 Last Documented On 0 1:54PM ; [facility] Post-traumatic stress disorder 0 Last Documented On 0 1:54PM ; [facility] History of asthma 12/25/2019 Last Documented On 0 1:54PM ; [facility] History of schizophrenia 12/25/2019 Last Documented On 0 1:54PM ; [facility] History of bipolar disorder NOS 12/25/19 20 Last Documented On 0 1:54PM ; [facility] History of depression 12/25/2019 Last Documented On 0 1:54PM ; [facility] History of psychiatric disorders 020 Last Documented On 0 1:54PM ; [facility] Work Phone: 1(470) 768-170408-21-2023 History general Narrative - Reported Includes: Medical History in patient's chart Description Last Updated Not planning to have a baby in the next 12 months 11/30/2022 Last Documented On 3 12:28PM ; [facility] History of anxiety disorder NOS 07/18/19 22 Last Documented On 2 8:10AM ; [facility] No previous hospitalizations 04/03/2021 Last Documented On 1 8:11PM ; [facility] History of complete colonoscopy 04/03/20 21 Last Documented On 1 8:11PM ; [facility] Epilepsy 12/25/2019 Last Documented On 0 1:54PM ; [facility] 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 Last Documented On 0 1:54PM ; [facility] Ovarian cyst 12/25/2019 Last Documented On 0 1:54PM ; [facility] Post-traumatic stress disorder 0 Last Documented On 0 1:54PM ; [facility] History of asthma 12/25/2019 Last Documented On 0 1:54PM ; [facility] History of schizophrenia 12/25/2019 Last Documented On 0 1:54PM ; [facility] History of bipolar disorder NOS 12/25/19 20 Last Documented On 0 1:54PM ; [facility] History of depression 12/25/2019 Last Documented On 0 1:54PM ; [facility] History of psychiatric disorders 020 Last Documented On 0 1:54PM ; [facility] Work Phone: 1(586) 563-777508-21-2023 Progress note* Progress note Date Encounter Last Documented by 11/30/2022 Medical Established Patient Last documented on 11/30/2022; 12:28 PM, Srinivasa Jhaveri CNP; [facility] Active Problems & Conditions - [...] clinical lab tests History of Present Illness Melody Fletcher is a 32 year old female. - [...] erna correa, 0 days, 0 refills - Htgzfvvtke-TKFV-Jcqcvtyf 50-325-40 MG Oral Tablet take 1 tablet [...] Findings - Vitals taken 11/30/2022 09:05 am BP-Fxpgagt081/77 mmHg BP Cuff SizeRegular Pulse Rate-Hghzeqn65 bpm Temp-Oral98.4 F Lxtsps91 in Ulhjnb798 lbs 12.8 oz Body Mass Index33.3 kg/m2 Body Surface Area1.7 m2 Oxygen Wxxzjrfhfl33 % Vital Signs: - Systolic blood pressure [...] Less than 40 years (0 points) [Pre-DM]. [facility]08-21-2023 Instructions Includes: Instructions for all patient encounters Instructions to patient Intervention and counseling on cessation of tobacco use, 3-10 minutes Last Documented On 0 1:15PM ; [facility] Education and Decision Aids were provided during visit for: Discussed nutritional needs teach healthy choices including fruits and vegetables Last Documented On 3 9:09AM ; [facility] Patient education about a pr oper diet Last Documented On 3 9:09AM ; [facility] Patient education about an a sthma action plan Last Documented On 3 9:44AM ; [facility] Discussed concerns about exe rcise : promote physical activity ~ ~Will restart symbicort ~ ~Follow up in one month for asthma Last Documented On 3 12:28PM ; [facility] Discussed nutritional needs teach healthy choices including fruits and vegetables Last Documented On 2 10:58AM ; [facility] Patient education about a pr oper diet Last Documented On 2 10:58AM ; [facility] Discussed concerns about exe rcise : promote physical activity Last Documented On 2 10:58AM ; [facility] Discussed nutritional needs teach healthy choices including fruits and vegetables Last Documented On 2 11:41AM ; [facility] Patient education about a pr oper diet Last Documented On 2 11:41AM ; [facility] Discussed concerns about exe rcise : promote physical activity Last Documented On 2 11:41AM ; [facility] offered active listening and supportive feedback; normalized emotions and feelings, also provided pt time to process any current stressors ~[facility] discussed benefits of counseling and supported pt in following through with scheduled appt. ~[facility] encouraged pt to continue to make time to implement self-care regimen to assist in improving their mood Last Documented On 2 2:29PM ; [facility] Provided supportive listenin g and reflective feedback; monitored mood, explored symptoms, assessed functioning. ~Discussed medication use/compliance. ~Promoted use of healthy coping mechanisms and positive support, as needed Last Documented On 2 1:25PM ; [facility] Discussed nutritional needs teach healthy choices including fruits and vegetables Last Documented On 2 12:54PM ; [facility] Patient education about a pr oper diet Last Documented On 2 12:54PM ; [facility] Discussed concerns about exe rcise : promote physical activity Last Documented On 2 12:54PM ; [facility] Discussed nutritional needs teach healthy choices including fruits and vegetables Last Documented On 2 11:39AM ; [facility] Patient education about a pr oper diet Last Documented On 2 11:39AM ; [facility] Discussed concerns about exe rcise : promote physical activity Last Documented On 2 11:39AM ; [facility] Discussed nutritional needs teach healthy choices including fruits and vegetables Last Documented On 2 10:29AM ; [facility] Patient education about a pr oper diet Last Documented On 2 10:29AM ; [facility] Discussed concerns about exe rcise : promote physical activity Last Documented On 2 10:29AM ; [facility] Discussed current self-care methods/coping skills. ~Validated and normalized patient's feelings while assisting process recent events. ~Discussed ongoing counseling. ~Discussed lifestyle changes to address chronic illness. ~Supported patient's personal health goals Last Documented On 2 8:50PM ; [facility] Discussed nutritional needs teach healthy choices including fruits and vegetables Last Documented On 2 11:15AM ; [facility] Patient education about a pr oper diet Last Documented On 2 11:15AM ; [facility] Discussed concerns about exe rcise : promote physical activity Last Documented On 2 11:15AM ; [facility] Discussed current self-care methods/coping skills. ~Validated and normalized patient's feelings while assisting process recent events. ~Discussed ongoing mental health services. ~Discussed lifestyle changes to address chronic illness. ~Supported patient's personal health goals. ~ ~Reports feeling better since beginning new meds. Also voices and visual hallucinations have stopped; reports voices were not commanfing Last Documented On 2 8:54PM ; [facility] and [...] resources Last Documented On 1 7:15PM ; [facility] Discussed nutritional needs teach healthy choices including fruits and vegetables Last Documented On 1 1:18PM ; [facility] Patient education about a pr oper diet Last Documented On 1 1:18PM ; [facility] Discussed concerns about exe rcise : promote physical activity Last Documented On 1 1:18PM ; [facility] Discussed nutritional needs teach healthy choices including fruits and vegetables Last Documented On 1 10:37AM ; [facility] Patient education about a pr oper diet Last Documented On 1 10:37AM ; [facility] Discussed concerns about exe rcise : promote physical activity Last Documented On 1 10:37AM ; [facility] Explored current symptoms an d stressors. Educaated patient re importance of counseling and provided brief review of EMDR treatment. ~Encouraged patient to engage in ongoing counseling. ~ Last Documented On 1 10:50PM ; [facility] Discussed nutritional needs teach healthy choices including fruits and vegetables Last Documented On 1 6:53PM ; [facility] Patient education about a pr oper diet Last Documented On 1 6:53PM ; [facility] Discussed concerns about exe rcise : promote physical activity Last Documented On 1 6:53PM ; [facility] provided active listenin g, support and helped patient process through current symptoms and stressors related to mood and irritability. ~[facility] discussed coping skills that patient has tried as well as discussed potential benefit of counseling. ~ ~ Last Documented On 0 11:49AM ; [facility] Discussed nutritional needs teach healthy choices including fruits and vegetables Last Documented On 0 1:15PM ; [facility] Patient education about a pr oper diet Last Documented On 0 1:15PM ; [facility] Patient education about a pr oper diet Last Documented On 0 1:33PM ; [facility] Patient education about meal planning Last Documented On 0 1:33PM ; [facility] Education about changing eat ing habits Last Documented On 0 1:33PM ; [facility] Patient education about high fiber diet Last Documented On 0 1:33PM ; [facility] Patient education about low fat diet Last Documented On 0 1:33PM ; [facility] Patient education about low cholesterol diet Last Documented On 0 1:33PM ; [facility] Patient education about low carbohydrate diet Last Documented On 0 1:33PM ; [facility] Patient education about high protein diet Last Documented On 0 1:33PM ; [facility] Discussed concerns about exe rcise : promote physical activity Last Documented On 0 1:15PM ; [facility] provided active listenin g, support and helped patient process through current symptoms and stressors due to pain, loss of work and low frustration tolerance. ~[facility] discussed coping skills and supports that patient can implement inclduing meditation, mindfulness, and deep breathing activities. [facility] provided resources to patient to work on implementing. ~[facility] discussed with patient re-establishing care for therapy and provided patient with resource list. ~ Last Documented On 0 6:15PM ; [facility] Discussed nutritional needs teach healthy choices including fruits and vegetables Last Documented On 0 1:12PM ; [facility] Patient education about a pr oper diet Last Documented On 0 1:12PM ; [facility] Patient education about a pr oper diet Last Documented On 0 1:46PM ; [facility] Patient education about meal planning Last Documented On 0 1:46PM ; [facility] Education about changing eat ing habits Last Documented On 0 1:46PM ; [facility] Patient education about high fiber diet Last Documented On 0 1:46PM ; [facility] Patient education about low fat diet Last Documented On 0 1:46PM ; [facility] Patient education about low cholesterol diet Last Documented On 0 1:46PM ; [facility] Patient education about low carbohydrate diet Last Documented On 0 1:46PM ; [facility] Patient education about high protein diet Last Documented On 0 1:46PM ; [facility] Discussed concerns about exe rcise : promote physical activity Last Documented On 0 1:12PM ; [facility] Work Phone: 1(113) 378-800302-27-2023 Hospital Discharge instructions* Discharge Instructions* Serenity Will [...] 2 to 3 days. [facility] [place] [email or web address] Phone: [phone] 551-206211-10-2022 History of Present illness Narrative* Erna Orozco RN - 02/19/2022 11:00 AM EST Patient instructed on extended school lunch monitor indications and use. Diary sent with patient. documented in this encounterBON [email or web address] Phone: [phone]) 599-237210-13-2022 Evaluation note Includes: Assessments for all patient encounters Findings Encounter Date [Body mass index [BMI] 30.0- 30.9, adult] assessment of body mass index Medical Established Patient with Srinivasa Jhaveri CNP 01/22/2022 Dysuria Medical Established Patient with Srinivasa Jhaveri [facility] 01/22/2022 Bipolar schizoaffective disorder BH Esta blished Patient with Bharat Watkinserson [facility] 12/11/2021 Assessment of body mass inde x [Body mass index [BMI] 26.0-26.9, adult] Medical Established Patient with Srinivasa Ed [employer] 12/11/2021 Bipolar schizoaffective disorder BH Esta blished Patient with Bharat Watkinserson [facility] 11/25/2021 Anxiety disorder NOS Medical Established Patient with Traci Juma [employer] 11/25/2021 Urinary tract infection Medical Establis hed Patient with Traci Juma [employer] 11/25/2021 Z68.27 - Body mass index [BM I] 27.0-27.9, adult Medical Established Patient with Traci Juma [employer] 11/25/2021 Anxiety disorder NOS Medical Established Patient with Traci Juma [employer] [facility] 08/13/2021 Assessment of body mass index Medical Es tablished Patient with Traci Juma [employer] 08/13/2021 Chronic gastritis without hemorrhage Med ical Established Patient with Traci Juma [employer] 08/13/2021 Diverticulosis of intestine Medical Esta blished Patient with Traci Juma [employer] 08/13/2021 Urinary tract infection Medical Establis hed Patient with Traci Juma [employer] 08/13/2021 Anxiety disorder NOS Medical Established Patient with Traci Juma [employer] 07/17/2021 Other hypothyroidism Medical Established Patient with Traci Juma [employer] 07/17/2021 Upper respiratory infection Medical Esta blished Patient with Traci Juma [employer] 07/17/2021 Visit for: routine adult H&P with abnormal findings Medical Established Patient with Traci Juma [employer] 07/17/2021 Visit for: screening for lip oid disorders Medical Established Patient with Traci Juma [employer] 07/17/2021 Vitamin B12 deficiency Medical Establish ed Patient with Traci Juma [employer] 07/17/2021 Vitamin D deficiency Medical Established Patient with Traci Juma [employer] 07/17/2021 Z68.28 - Body mass index [BM I] 28.0-28.9, adult Medical Established Patient with Traci Juma [employer] 07/17/2021 Allergic rhinitis Telemedicine Establi sted Patient with Traci Juma [employer] 07/16/2021 Exposure to COVID-19 Telemedicine Establ isted Patient with Traci Dennison [employer] 04/29/2021 Bipolar schizoaffective disorder BH Esta blished Patient with Farrah Jarrett [facility] 04/15/2021 Anxiety disorder NOS Medical Established Patient with Traci Dennison [employer] 04/15/2021 Assessment of body mass index Medical Es tablished Patient with Traci Dennison [employer] 04/15/2021 Bipolar disorder NOS Medical Established Patient with Traci Dennison [employer] 04/15/2021 Anxiety disorder NOS Telebehavioral H ealth [...] Medic al Established Patient with Traci Dennison [employer] 04/03/2021 Assessment of body mass index Medical Es tablished Patient with Traci Dennison [employer] 04/03/2021 Epilepsy, not intractable, w ithout status epilepticus Medical Established Patient with Traci Dennison [employer] 04/03/2021 Mixed affective bipolar diso rder, moderate Medical Established Patient with Traci Dennison [employer] 04/03/2021 Urinary tract infection Medical Establis hed Patient with Traci Dennison [employer] 04/03/2021 Visit for: screening for STD Medical Est ablished Patient with Traci Dennison [employer] 04/03/2021 Assessment of visit for: scr eening for human immunodeficiency virus Medical Established Patient with Peggy Thrasher [employer] 02/14/2021 Diabetes Risk Test Score was three score 02/14/2021 Medical Established Patient with Peggy Thrasher [employer] 02/14/2021 Diarrhea Medical Established Patient with Peggy Thrasher [employer] [facility] 02/14/2021 Nicotine dependence Medical Established Patient with Peggy Anna Marie [employer] 02/14/2021 Z68.28 - Body mass index [BM I] 28.0-28.9, adult Medical Established Patient with Peggy Thrasher [employer] [facility] 02/14/2021 Cough Telemedicine Establi sted Patient with Traci Dennison [facility] 01/01/2021 Fever Telemedicine Establi sted Patient with Traci Dennison [facility] 01/01/2021 Z20.822 - Contact with and ( suspected) exposure to COVID-19 Telemedicine Establisted Patient with Traci Dennison [facility] 01/01/2021 Bipolar I disorder, most rec ent episode, depressed Established Patient with Farrah Jarrett [facility] 06/03/2020 Paranoid schizophrenia per p atient report Established Patient with Farrah Jarrett [facility] 06/03/2020 Post-traumatic stress disord er per patient report Established Patient [facility] 06/03/2020 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 Patient with Traci Dennison [facility] 06/03/2020 Overweight Medical Established Patient with Traci Dennison [facility] 06/03/2020 Z68.29 - Body mass index [BM I] 29.0-29.9, adult Medical Established Patient with Traci Dennison [facility] 06/03/2020 Anxiety disorder NOS Medical Established Patient with Traci Dennison [facility] 01/26/2020 Bipolar disorder NOS Medical Established Patient with Traci Dennison [facility] 01/26/2020 Infection of tooth Medical Established Patient with Traci Dennison [facility] 01/26/2020 Z68.20 - Body mass index [BM I] 20.0-20.9, adult Medical Established Patient with Traci Dennison [facility] 01/26/2020 Bipolar I disorder, most rec ent episode, mixed Established Patient with Hannah Short [facility] 01/08/2020 Generalized anxiety disorder Establis hed Patient with Hannah Short [facility] 01/08/2020 Diabetes Risk Test Score was one score 01/08/2020 Medical Established Patient with Peggy Leoen [facility] 01/08/2020 Overweight Medical Established Patient with Peggy Anna Marie [facility] 01/08/2020 Z68.27 - Body mass index (BM I) 27.0-27.9, adult Medical Established Patient with Peggy Anna Marie [facility] 01/08/2020 Bipolar I disorder, most rec ent episode, mixed Established Patient with Hannah Short [facility] 12/25/2019 Generalized anxiety disorder Establis hed Patient with Hannah Short [facility] 12/25/2019 Overweight Medical Established Patient with Peggy Anna Marie [facility] 12/25/2019 Z68.26 - Body mass index (BM I) 26.0-26.9, adult Medical Established Patient with Peggy Anna Marie [employer] 12/25/2019 [facility] Work Phone: [phone]) 640-995209-01-2022 Evaluation note Includes: Assessments for all patient encounters Findings Encounter Date Bipolar schizoaffective disorder BH Esta blished Patient with Bharat Díaz [facility] 12/11/2021 Assessment of body mass inde x [Body mass index [BMI] 26.0-26.9, adult] Medical Established Patient with Srinivasa Boyceer [employer] 12/11/2021 Bipolar schizoaffective disorder BH Esta blished Patient with Bharat Díaz [facility] 11/25/2021 Anxiety disorder NOS Medical Established Patient with Traci Juma [employer] 11/25/2021 Urinary tract infection Medical Establis hed Patient with Traci Dennison [employer] 11/25/2021 Z68.27 - Body mass index [BM I] 27.0-27.9, adult Medical Established Patient with Traci Dennison [employer] 11/25/2021 Anxiety disorder NOS Medical Established Patient with Traci Dennison [employer] 08/13/2021 Assessment of body mass index Medical Es tablished Patient with Traci Juma [employer] 08/13/2021 Chronic gastritis without hemorrhage Med ical Established Patient with Traci Juma [employer] 08/13/2021 Diverticulosis of intestine Medical Esta blished Patient with Traci Juma [employer] 08/13/2021 Urinary tract infection Medical Establis hed Patient with Traci Juma [employer] 08/13/2021 Anxiety disorder NOS Medical Established Patient with Traci Juma [employer] 07/17/2021 Other hypothyroidism Medical Established Patient with Traci Juma [employer] 07/17/2021 Upper respiratory infection Medical Esta blished Patient with Traci Juma [employer] 07/17/2021 Visit for: routine adult H&P with abnormal findings Medical Established Patient with Traci Juma [employer] 07/17/2021 Visit for: screening for lip oid disorders Medical Established Patient with Traci Juma [employer] 07/17/2021 Vitamin B12 deficiency Medical Establish ed Patient with Traci Juma [employer] 07/17/2021 Vitamin D deficiency Medical Established Patient with Traci Juma [employer] 07/17/2021 Z68.28 - Body mass index [BM I] 28.0-28.9, adult Medical Established Patient with Traci Juma [employer] 07/17/2021 Allergic rhinitis Telemedicine Establi sted Patient with Traci Juma [employer] 07/16/2021 Exposure to COVID-19 Telemedicine Establ isted Patient with Traci Dennison [employer] 04/29/2021 Bipolar schizoaffective disorder BH Esta blished Patient with Farrah Jarrett [facility] 04/15/2021 Anxiety disorder NOS Medical Established Patient with Traci Dennison [employer] 04/15/2021 Assessment of body mass index Medical Es tablished Patient with Traci Dennison [employer] 04/15/2021 Bipolar disorder NOS Medical Established Patient with Traci Dennison [employer] 04/15/2021 Anxiety disorder NOS Telebehavioral H ealth [...] Medic al Established Patient with Traci Dennison [employer] 04/03/2021 Assessment of body mass index Medical Es tablished Patient with Traci Dennison [employer] 04/03/2021 Epilepsy, not intractable, w ithout status epilepticus Medical Established Patient with Traci Dennison [employer] 04/03/2021 Mixed affective bipolar diso rder, moderate Medical Established Patient with Traci Dennison [employer] 04/03/2021 Urinary tract infection Medical Establis hed Patient with Traci Dennison [employer] 04/03/2021 Visit for: screening for STD Medical Est ablished Patient with Traci Dennison [employer] 04/03/2021 Assessment of visit for: scr eening for human immunodeficiency virus Medical Established Patient with Peggy Thrasher [employer] 02/14/2021 Diabetes Risk Test Score was three score 02/14/2021 Medical Established Patient with Peggy Thrasher [employer] [facility] 02/14/2021 Diarrhea Medical Established Patient with Peggy Thrasher [employer] 02/14/2021 Nicotine dependence Medical Established Patient with Peggy Thrasher [employer] 02/14/2021 Z68.28 - Body mass index [BM I] 28.0-28.9, adult Medical Established Patient with Peggy Thrasher [employer] 02/14/2021 Cough Telemedicine Establi sted Patient with Traci Dennison [employer] [facility] 01/01/2021 Fever Telemedicine Establi sted Patient with Traci Dennison [facility] 01/01/2021 Z20.822 - Contact with and ( suspected) exposure to COVID-19 Telemedicine Establisted Patient with Traci Dennison [employer] 01/01/2021 Bipolar I disorder, most rec ent episode, depressed Established Patient with Farrah Jarrett [facility] 06/03/2020 Paranoid schizophrenia per p atient report Established Patient with Farrah Hernandezs [facility] 06/03/2020 Post-traumatic stress disord er per patient report Established Patient with Farrah Hernandezs [facility] 06/03/2020 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 Patient with Traci Dennison [employer] 06/03/2020 Overweight Medical Established Patient with Traci Dennison [facility] 06/03/2020 Z68.29 - Body mass index [BM I] 29.0-29.9, adult Medical Established Patient with Traci Dennison [employer] 06/03/2020 Anxiety disorder NOS Medical Established Patient with Traci Dennison [employer] 01/26/2020 Bipolar disorder NOS Medical Established Patient with Traci Dennison [facility] 01/26/2020 Infection of tooth Medical Established Patient with Traci Dennison [facility] 01/26/2020 Z68.20 - Body mass index [BM I] 20.0-20.9, adult Medical Established Patient with Traci Dennison [employer] 01/26/2020 Bipolar I disorder, most rec ent episode, mixed Established Patient with Hannah Short [facility] 01/08/2020 Generalized anxiety disorder Establis hed Patient with Hannah Short [facility] 01/08/2020 Diabetes Risk Test Score was one score 01/08/2020 Medical Established Patient with Peggy Thrasher [employer] 01/08/2020 Overweight Medical Established Patient with Peggy Anna Marie [employer] [facility] 01/08/2020 Z68.27 - Body mass index (BM I) 27.0-27.9, adult Medical Established Patient with Peggy Anna Marie [employer] 01/08/2020 Bipolar I disorder, most rec ent episode, mixed Established Patient with Hannah Short [facility] 12/25/2019 Generalized anxiety disorder Establis hed Patient with Hannah Short [facility] 12/25/2019 Overweight Medical Established Patient with Peggy Thrasher [employer] 12/25/2019 Z68.26 - Body mass index (BM I) 26.0-26.9, adult Medical Established Patient with Peggy Thrasher [employer] 12/25/2019 [facility] Work Phone: 1(875) 171-942908-16-2022 Evaluation note Includes: Assessments for all patient encounters Findings Encounter Date Assessment of body mass inde x [Body mass index [BMI] 26.0-26.9, adult] Medical Established Patient with Srinivasa Ed [employer] 12/11/2021 Bipolar schizoaffective disorder BH Esta blished Patient with Bharat Díaz [facility] 11/25/2021 Anxiety disorder NOS Medical Established Patient with Tracizachery Dennison [employer] 11/25/2021 Urinary tract infection Medical Establis hed Patient with Tracizachery Dennison [employer] 11/25/2021 Z68.27 - Body mass index [BM I] 27.0-27.9, adult Medical Established Patient with Traci Dennison [employer] 11/25/2021 Anxiety disorder NOS Medical Established Patient with Traci Juma [employer] 08/13/2021 Assessment of body mass index Medical Es tablished Patient with Traci Juma [employer] 08/13/2021 Chronic gastritis without hemorrhage Med ical Established Patient with Traci Juma [employer] 08/13/2021 Diverticulosis of intestine Medical Esta blished Patient with Traci Juma [employer] 08/13/2021 Urinary tract infection Medical Establis hed Patient with Traci Juma [employer] 08/13/2021 Anxiety disorder NOS Medical Established Patient with Traci Juma [employer] 07/17/2021 Other hypothyroidism Medical Established Patient with Traci Juma [employer] 07/17/2021 Upper respiratory infection Medical Esta blished Patient with Traci Juma [employer] 07/17/2021 Visit for: routine adult H&P with abnormal findings Medical Established Patient with Traci Juma [employer] 07/17/2021 Visit for: screening for lip oid disorders Medical Established Patient with Traci Juma [employer] 07/17/2021 Vitamin B12 deficiency Medical Establish ed Patient with Traci Juma [employer] 07/17/2021 Vitamin D deficiency Medical Established Patient with Traci Juma [employer] 07/17/2021 Z68.28 - Body mass index [BM I] 28.0-28.9, adult Medical Established Patient with Traci Juma [employer] 07/17/2021 Allergic rhinitis Telemedicine Establi sted Patient with Traci Dennison [employer] 07/16/2021 Exposure to COVID-19 Telemedicine Establ isted Patient with Traci Dennison [employer] 04/29/2021 Bipolar schizoaffective disorder Esta blished Patient with Farrah Jarrett [facility] 04/15/2021 Anxiety disorder NOS Medical Established Patient with Tarci Dennison [employer] 04/15/2021 Assessment of body mass index Medical Es tablished Patient with Traci Dennison [employer] 04/15/2021 Bipolar disorder NOS Medical Established Patient with Traci Dennison [employer] 04/15/2021 Anxiety disorder NOS Telebehavioral H ealth [...] Medic al Established Patient with Traci Dennison [employer] 04/03/2021 Assessment of body mass index Medical Es tablished Patient with Traci Dennison [employer] 04/03/2021 Epilepsy, not intractable, w ithout status epilepticus Medical Established Patient with Traci Dennison [employer] 04/03/2021 Mixed affective bipolar diso rder, moderate Medical Established Patient with Traci Dennison [employer] 04/03/2021 Urinary tract infection Medical Establis hed Patient with Traci Dennison [employer] 04/03/2021 Visit for: screening for STD Medical Est ablished Patient with Traci Dennison [employer] 04/03/2021 Assessment of visit for: scr eening for human immunodeficiency virus Medical Established Patient with Peggy Thrasher [employer] 02/14/2021 Diabetes Risk Test Score was three score 02/14/2021 Medical Established Patient with Peggy Thrasher [employer] 02/14/2021 Diarrhea Medical Established Patient with Peggy Thrasher [employer] 02/14/2021 Nicotine dependence Medical Established Patient with Peggy Thrasher [employer] 02/14/2021 Z68.28 - Body mass index [BM I] 28.0-28.9, adult Medical Established Patient with Peggy Thrasher [employer] 02/14/2021 Cough Telemedicine Establi sted Patient with Traci Dennison [facility] 01/01/2021 Fever Telemedicine Establi sted Patient with Traci Dennison [facility] 01/01/2021 Z20.822 - Contact with and ( suspected) exposure to COVID-19 Telemedicine Establisted Patient with Traci Dennison [employer] 01/01/2021 Bipolar I disorder, most rec ent episode, depressed Established Patient with Farrah Klinemons [facility] 06/03/2020 Paranoid schizophrenia per p atient report Established Patient with Farrah Klinemons [facility] 06/03/2020 Post-traumatic stress disord er per patient report Established Patient with Farrah Hernandezs [facility] 06/03/2020 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 Patient with Traci Dennison [facility] 06/03/2020 Overweight Medical Established Patient with Traci Dennison [facility] 06/03/2020 Z68.29 - Body mass index [BM I] 29.0-29.9, adult Medical Established Patient with Traci Dennison [facility] 06/03/2020 Anxiety disorder NOS Medical Established Patient with Traci Dennison [facility] 01/26/2020 Bipolar disorder NOS Medical Established Patient with Traci Dennison [facility] 01/26/2020 Infection of tooth Medical Established Patient with Traci Dennison [facility] 01/26/2020 Z68.20 - Body mass index [BM I] 20.0-20.9, adult Medical Established Patient with Traci Dennison [facility] 01/26/2020 Bipolar I disorder, most rec ent episode, mixed Established Patient with Hannah Short [facility] 01/08/2020 Generalized anxiety disorder Establis hed Patient with Hannah Short [facility] 01/08/2020 Diabetes Risk Test Score was one score 01/08/2020 Medical Established Patient with Peggy Anna Marie [facility] 01/08/2020 Overweight Medical Established Patient with Peggy Anna Marie [facility] 01/08/2020 Z68.27 - Body mass index (BM I) 27.0-27.9, adult Medical Established Patient with Peggy Anna Marie [facility] 01/08/2020 Bipolar I disorder, most rec ent episode, mixed Established Patient with Hannah Short [facility] 12/25/2019 Generalized anxiety disorder Establis hed Patient with Hannah Short [facility] 12/25/2019 Overweight Medical Established Patient with Peggy Thrasher [facility] 12/25/2019 Z68.26 - Body mass index (BM I) 26.0-26.9, adult Medical Established Patient with Peggy Thrasher [facility] 12/25/2019 [facility] Work Phone: 1([phone]) 288-579408-16-2022 Reason for referral (narrative)* Date Encounter Description Provider Reason for Referral 11/25/21 Medical Established Patient Traci Winreyes bruno [facility] Referral To Mental Health Team 07/17/21 Medical Established Patient Traci Elisa bruno [facility] Referral To Mental Health Team 06/03/20 Established Patient Fararh Hernandezs [facility] Referral To Mental Health Team - [facility] conducted screen and discussed patient's responses w/her. [facility] Work Phone: 1(259) 319-797308-03-2022 Hospital Discharge instructions* Discharge Instructions* Myrtle Bergeron DO - 11/12/2021 12:00 PM EDT Recommend staying on a liquid diet for the next 24 to 48 hours until the diarrhea improves. Then advance diet as tolerated. * Attachments The following attachments cannot be sent through Care Everywhere. * Gastroenteritis (Vietnamese) [facility] Phone: 1(240) 768-345005-23-2022 Hospital Discharge instructions* Instructions* Natan Bravo PA-C - 09/01/2021 Follow-up with GC and chlamydia STD results in the next 3 to 5 days. Return to the emergency room for any worsening symptoms. Follow-up with your primary care provider in the next week. * Attachments The following attachments cannot be sent through Care Everywhere. * Folliculitis (Vietnamese) * STI (Vietnamese) [facility] Phone: [phone]) [phone] Evaluation note Includes: Assessments for all patient encounters Findings Encounter Date Anxiety disorder NOS Medical Established Patient with Traci Dennison [facility] 08/13/2021 Assessment of body mass index Medical Es tablished Patient with Traci Dennison [facility] 08/13/2021 Chronic gastritis without hemorrhage Med ical Established Patient with Traci Dennison [facility] 08/13/2021 Diverticulosis of intestine Medical Esta blished Patient with Traci Dennison [facility] 08/13/2021 Urinary tract infection Medical Establis hed Patient with Traci Dennison [facility] 08/13/2021 Anxiety disorder NOS Medical Established Patient with Traci Dennison [facility] 07/17/2021 Other hypothyroidism Medical Established Patient with Traci Dennison [facility] 07/17/2021 Upper respiratory infection Medical Esta blished Patient with Traci Dennison [facility] 07/17/2021 Visit for: routine adult H&P with abnormal findings Medical Established Patient with Traci Dennison [facility] 07/17/2021 Visit for: screening for lip oid disorders Medical Established Patient with Traci Dennison [facility] 07/17/2021 Vitamin B12 deficiency Medical Establish ed Patient with Traci Dennison [facility] 07/17/2021 Vitamin D deficiency Medical Established Patient with Traci Dennison [facility] 07/17/2021 Z68.28 - Body mass index [BM I] 28.0-28.9, adult Medical Established Patient with Traci Dennison [facility] 07/17/2021 Allergic rhinitis Telemedicine Establi sted Patient with Traci Dennison [facility] 07/16/2021 Exposure to COVID-19 Telemedicine Establ isted Patient with Traci Dennison [facility] 04/29/2021 Bipolar schizoaffective disorder BH Esta blished Patient with Farrah Jarrett [facility] 04/15/2021 Anxiety disorder NOS Medical Established Patient with Traci Dennison [facility] 04/15/2021 Assessment of body mass index Medical Es tablished Patient with Traci Dennison [facility] 04/15/2021 Bipolar disorder NOS Medical Established Patient with Traci Dennison [facility] 04/15/2021 Anxiety disorder NOS BH Telebehavioral H ealth with Farrah Jarrett [facility] 04/09/2021 Bipolar disorder NOS BH Telebehavioral H ealth with Farrah Jarrett [facility] 04/09/2021 Anxiety disorder NOS Established Melanie ent with Hannah Short [facility] 04/03/2021 Bipolar I disorder, most rec ent episode, depressed Established Patient with Hannah Short [facility] 04/03/2021 Nicotine dependence Established Patie nt with Hannah Short [facility] 04/03/2021 Nicotine dependence Established Patie nt with Hannah Short [facility] 04/03/2021 Undifferentiated schizophren ia per patient reported history Established Patient with Hannah Short [facility] 04/03/2021 A home test was negative Medic al Established Patient with Traci Dennison [facility] 04/03/2021 Assessment of body mass index Medical Es tablished Patient with Traci Dennison [facility] 04/03/2021 Epilepsy, not intractable, w ithout status epilepticus Medical Established Patient with Traci Dennison [facility] 04/03/2021 Mixed affective bipolar diso rder, moderate Medical Established Patient with Traci Dennison [facility] 04/03/2021 Urinary tract infection Medical Establis hed Patient with Traci Dennison [facility] 04/03/2021 Visit for: screening for STD Medical Est ablished Patient with Traci Dennison [facility] 04/03/2021 Assessment of visit for: scr eening for human immunodeficiency virus Medical Established Patient with Peggy Thrasher [facility] 02/14/2021 Diabetes Risk Test Score was three score 02/14/2021 Medical Established Patient with Peggy Thrasher [facility] 02/14/2021 Diarrhea Medical Established Patient with Peggy Thrasher [facility] 02/14/2021 Nicotine dependence Medical Established Patient with Peggy Thrasher [facility] 02/14/2021 Z68.28 - Body mass index [BM I] 28.0-28.9, adult Medical Established Patient with Peggy Thrasher [facility] 02/14/2021 Cough Telemedicine Establi sted Patient with Traci Dennison [facility] 01/01/2021 Fever Telemedicine Establi sted Patient with Traci Dennison [facility] 01/01/2021 Z20.822 - Contact with and ( suspected) exposure to COVID-19 Telemedicine Establisted Patient with Traci Dennison [facility] 01/01/2021 Bipolar I disorder, most rec ent episode, depressed Established Patient with Farrah Jarrett [facility] 06/03/2020 Paranoid schizophrenia per p atient report Established Patient with Farrah Hernandezs [facility] 06/03/2020 Post-traumatic stress disord er per patient report Established Patient with Farrah Hernandezs [facility] 06/03/2020 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 Patient with Tracizachery Dennison [facility] 06/03/2020 Overweight Medical Established Patient with Traci Dennison [facility] 06/03/2020 Z68.29 - Body mass index [BM I] 29.0-29.9, adult Medical Established Patient with Traci Juma [facility] 06/03/2020 Anxiety disorder NOS Medical Established Patient with Traci Juma [facility] 01/26/2020 Bipolar disorder NOS Medical Established Patient with Traci Juma [facility] 01/26/2020 Infection of tooth Medical Established Patient with Traci Dennison [facility] 01/26/2020 Z68.20 - Body mass index [BM I] 20.0-20.9, adult Medical Established Patient with Tracizachery Dennison [facility] 01/26/2020 Bipolar I disorder, most rec ent episode, mixed Established Patient with Hannah Short [facility] 01/08/2020 Generalized anxiety disorder Establis hed Patient with Hannah Short [facility] 01/08/2020 Diabetes Risk Test Score was one score 01/08/2020 Medical Established Patient with Peggy Anna Marie [facility] 01/08/2020 Overweight Medical Established Patient with Peggy Anna Marie [facility] 01/08/2020 Z68.27 - Body mass index (BM I) 27.0-27.9, adult Medical Established Patient with Peggy Anna Marie [facility] 01/08/2020 Bipolar I disorder, most rec ent episode, mixed Established Patient with Hannah Short [facility] 12/25/2019 Generalized anxiety disorder Establis hed Patient with Hannah Short [facility] 12/25/2019 Overweight Medical Established Patient with Peggy Anna Marie [facility] 12/25/2019 Z68.26 - Body mass index (BM I) 26.0-26.9, adult Medical Established Patient with Peggy Anna Marie [facility] 12/25/2019 [facility] Work Phone: [phone]) [phone] Evaluation note Includes: Assessments for all patient encounters Findings Encounter Date Anxiety disorder NOS Medical Established Patient with Traci Juma [facility] 07/17/2021 Other hypothyroidism Medical Established Patient with Traci Dennison [facility] 07/17/2021 Upper respiratory infection Medical Esta blished Patient with Traci Dennison [facility] 07/17/2021 Visit for: routine adult H&P with abnormal findings Medical Established Patient with Traci Juma [facility] 07/17/2021 Visit for: screening for lip oid disorders Medical Established Patient with Traci Dennison [facility] 07/17/2021 Vitamin B12 deficiency Medical Establish ed Patient with Traci Dennison [facility] 07/17/2021 Vitamin D deficiency Medical Established Patient with Tracizachery Dennison [facility] 07/17/2021 Z68.28 - Body mass index [BM I] 28.0-28.9, adult Medical Established Patient with Traci Dennison [facility] 07/17/2021 Allergic rhinitis Telemedicine Establi sted Patient with Traci Dennison [facility] 07/16/2021 Exposure to COVID-19 Telemedicine Establ isted Patient with Traci Dennison [facility] 04/29/2021 Bipolar schizoaffective disorder BH Esta blished Patient with Farrah Jarrett [facility] 04/15/2021 Anxiety disorder NOS Medical Established Patient with Traci Dennison [facility] 04/15/2021 Assessment of body mass index Medical Es tablished Patient with Traci Dennison [facility] 04/15/2021 Bipolar disorder NOS Medical Established Patient with Traci Dennison [facility] 04/15/2021 Anxiety disorder NOS Telebehavioral H ealth [...] Medic al Established Patient with Traci Dennison [facility] 04/03/2021 Assessment of body mass index Medical Es tablished Patient with Traci Dennison [facility] 04/03/2021 Epilepsy, not intractable, w ithout status epilepticus Medical Established Patient with Traci Dennison [facility] 04/03/2021 Mixed affective bipolar diso rder, moderate Medical Established Patient with Traci Dennison [facility] 04/03/2021 Urinary tract infection Medical Establis hed Patient with Traci Dennison [facility] 04/03/2021 Visit for: screening for STD Medical Est ablished Patient with Traci Dennison [facility] 04/03/2021 Assessment of visit for: scr eening for human immunodeficiency virus Medical Established Patient with Peggy Thrasher [facility] 02/14/2021 Diabetes Risk Test Score was three score 02/14/2021 Medical Established Patient with Peggy Thrasher [facility] 02/14/2021 Diarrhea Medical Established Patient with Peggy Thrasher [facility] 02/14/2021 Nicotine dependence Medical Established Patient with Peggy Thrasher [facility] 02/14/2021 Z68.28 - Body mass index [BM I] 28.0-28.9, adult Medical Established Patient with Peggy Thrasher [facility] 02/14/2021 Cough Telemedicine Establi sted Patient with Traci Dennison [facility] 01/01/2021 Fever Telemedicine Establi sted Patient with Traci Dennison [facility] 01/01/2021 Z20.822 - Contact with and ( suspected) exposure to COVID-19 Telemedicine Establisted Patient with Traci Dennison [facility] 01/01/2021 Bipolar I disorder, most rec ent episode, depressed Established Patient with Farrahmatthew Klinemons [facility] 06/03/2020 Paranoid schizophrenia per p atient report Established Patient with Farrahmatthew [facility] 06/03/2020 Post-traumatic stress disord er per patient report Established Patient with Farrahmatthew Klinemons [facility] 06/03/2020 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 Patient with Traci Dennison [facility] 06/03/2020 Overweight Medical Established Patient with Traci Dennison [facility] 06/03/2020 Z68.29 - Body mass index [BM I] 29.0-29.9, adult Medical Established Patient with Traci Dennison [facility] 06/03/2020 Anxiety disorder NOS Medical Established Patient with Traci Dennison [facility] 01/26/2020 Bipolar disorder NOS Medical Established Patient with Traci Dennison [facility] 01/26/2020 Infection of tooth Medical Established Patient with Traci Dennison [facility] 01/26/2020 Z68.20 - Body mass index [BM I] 20.0-20.9, adult Medical Established Patient with Traci Dennison [facility] 01/26/2020 Bipolar I disorder, most rec ent episode, mixed Established Patient with Hannah Short [facility] 01/08/2020 Generalized anxiety disorder Establis hed Patient with Hannah Short [facility] 01/08/2020 Diabetes Risk Test Score was one score 01/08/2020 Medical Established Patient with Peggy Anna Marie [facility] 01/08/2020 Overweight Medical Established Patient with Peggy Anna Marie [facility] 01/08/2020 Z68.27 - Body mass index (BM I) 27.0-27.9, adult Medical Established Patient with Peggy Thrasher [facility] 01/08/2020 Bipolar I disorder, most rec ent episode, mixed BH Established Patient with Hannah Short [facility] 12/25/2019 Generalized anxiety disorder BH Establis hed Patient with Hannah Short [facility] 12/25/2019 Overweight Medical Established Patient with Peggy Thrasher [facility] 12/25/2019 Z68.26 - Body mass index (BM I) 26.0-26.9, adult Medical Established Patient with Peggy Thrasher [facility] 12/25/2019 [facility] Work Phone: 1(653) 316-141004-07-2022 History general Narrative - Reported Includes: Medical [...] depression 12/25/2019 History of psychiatric disorders 020 [facility] Work Phone: 1(462) 622-562204-06-2022 Evaluation note Includes: Assessments for all patient encounters Findings Encounter Date Allergic rhinitis Telemedicine Establi sted Patient with Traci Dennison [facility] 07/16/2021 Exposure to COVID-19 Telemedicine Establ isted Patient with Traci Dennison [facility] 04/29/2021 Bipolar schizoaffective disorder BH Esta blished Patient with Farrah Jarrett [facility] 04/15/2021 Anxiety disorder NOS Medical Established Patient with Traci Dennison [facility] 04/15/2021 Assessment of body mass index Medical Es tablished Patient with Traci Dennison [facility] 04/15/2021 Bipolar disorder NOS Medical Established Patient with Traci Dennison [facility] 04/15/2021 Anxiety disorder NOS Telebehavioral H ealth [...] reported history Established Patient with Hannah Short [facility] 04/03/2021 A home test was negative Medic al Established Patient with Traci Dennison [facility] 04/03/2021 Assessment of body mass index Medical Es tablished Patient with Traci Dennison [facility] 04/03/2021 Epilepsy, not intractable, w ithout status epilepticus Medical Established Patient with Traci Dennison [facility] 04/03/2021 Mixed affective bipolar diso rder, moderate Medical Established Patient with Traci Dennison [facility] 04/03/2021 Urinary tract infection Medical Establis hed Patient with Traci Dennison [facility] 04/03/2021 Visit for: screening for STD Medical Est ablished Patient with Traci Dennison [facility] 04/03/2021 Assessment of visit for: scr eening for human immunodeficiency virus Medical Established Patient with Peggy Thrasher [facility] 02/14/2021 Diabetes Risk Test Score was three score 02/14/2021 Medical Established Patient with Peggy Thrasher [facility] 02/14/2021 Diarrhea Medical Established Patient with Peggy Thrasher [facility] 02/14/2021 Nicotine dependence Medical Established Patient with Peggy Thrasher [facility] 02/14/2021 Z68.28 - Body mass index [BM I] 28.0-28.9, adult Medical Established Patient with Peggy Thrasher [facility] 02/14/2021 Cough Telemedicine Establi sted Patient with Traci Dennison [facility] 01/01/2021 Fever Telemedicine Establi sted Patient with Traci Dennison [facility] 01/01/2021 Z20.822 - Contact with and ( suspected) exposure to COVID-19 Telemedicine Establisted Patient with Traci Dennison [facility] 01/01/2021 Bipolar I disorder, most rec ent episode, depressed Established Patient with Farrah Jarrett [facility] 06/03/2020 Paranoid schizophrenia per p atient report Established Patient with Farrah Jarrett [facility] 06/03/2020 Post-traumatic stress disord er per patient report Established Patient with Farrah Jarrett [facility] 06/03/2020 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 Patient with Traci Dennison [facility] 06/03/2020 Overweight Medical Established Patient with Traci Dennison [facility] 06/03/2020 Z68.29 - Body mass index [BM I] 29.0-29.9, adult Medical Established Patient with Traci Dennison [facility] 06/03/2020 Anxiety disorder NOS Medical Established Patient with Traci Dennison [facility] 01/26/2020 Bipolar disorder NOS Medical Established Patient with Traci Dennison [facility] 01/26/2020 Infection of tooth Medical Established Patient with Traci Dennison [facility] 01/26/2020 Z68.20 - Body mass index [BM I] 20.0-20.9, adult Medical Established Patient with Traci Dennison [facility] 01/26/2020 Bipolar I disorder, most rec ent episode, mixed Established Patient with Hannah Short [facility] 01/08/2020 Generalized anxiety disorder Establis hed Patient with Hannah Short [facility] 01/08/2020 Diabetes Risk Test Score was one score 01/08/2020 Medical Established Patient with Peggy Thrasher [facility] 01/08/2020 Overweight Medical Established Patient with Peggyisis Thrasher [facility] 01/08/2020 Z68.27 - Body mass index (BM I) 27.0-27.9, adult Medical Established Patient with Peggy Thrasher [facility] 01/08/2020 Bipolar I disorder, most rec ent episode, mixed Established Patient with Hannah Short [facility] 12/25/2019 Generalized anxiety disorder Establis hed Patient with Hannah Short [facility] 12/25/2019 Overweight Medical Established Patient with Peggyisis Thrasher [facility] 12/25/2019 Z68.26 - Body mass index (BM I) 26.0-26.9, adult Medical Established Patient with Peggy Thrasher [facility] 12/25/2019 [facility] Work Phone: 1(649) 406-257303-24-2022 Hospital Discharge instructions* Instructions* Darren House MD [...] sent through Care Everywhere. * Shoulder Pain (Vietnamese) [facility] Work Phone: 1([phone]) 174-896601-18-2022 Evaluation note Includes: Assessments for all patient encounters Findings Encounter Date Exposure to COVID-19 Telemedicine Establ isted Patient with Traci Dennison [facility] 04/29/2021 Bipolar schizoaffective disorder BH Esta blished Patient with Farrah Jarrett [facility] 04/15/2021 Anxiety disorder NOS Medical Established Patient with Traci Dennison [facility] 04/15/2021 Assessment of body mass index Medical Es tablished Patient with Traci Dennison [facility] 04/15/2021 Bipolar disorder NOS Medical Established Patient with Traci Dennison [facility] 04/15/2021 Anxiety disorder NOS Established Melanie ent [...] Medic al Established Patient with Traci Dennison [facility] 04/03/2021 Assessment of body mass index Medical Es tablished Patient with Traci Dennison [facility] 04/03/2021 Epilepsy, not intractable, w ithout status epilepticus Medical Established Patient with Traci Dennison [facility] 04/03/2021 Mixed affective bipolar diso rder, moderate Medical Established Patient with Traci Dennison [facility] 04/03/2021 Urinary tract infection Medical Establis hed Patient with Traci Dennison [facility] 04/03/2021 Visit for: screening for STD Medical Est ablished Patient with Traci Dennison [facility] 04/03/2021 Assessment of visit for: scr eening for human immunodeficiency virus Medical Established Patient with Peggy Anna Marie [facility] 02/14/2021 Diabetes Risk Test Score was three score 02/14/2021 Medical Established Patient with Peggy Thrasher [facility] 02/14/2021 Diarrhea Medical Established Patient with Peggy Thrasher [facility] 02/14/2021 Nicotine dependence Medical Established Patient with Peggy Thrasher [facility] 02/14/2021 Z68.28 - Body mass index [BM I] 28.0-28.9, adult Medical Established Patient with Peggy Thrasher [facility] 02/14/2021 Cough Telemedicine Establi sted Patient with Traci Dennison [facility] 01/01/2021 Fever Telemedicine Establi sted Patient with Traci Dennison [facility] 01/01/2021 Z20.822 - Contact with and ( suspected) exposure to COVID-19 Telemedicine Establisted Patient with Traci Dennison [facility] 01/01/2021 Bipolar I disorder, most rec ent episode, depressed Established Patient with Farrah [facility]ons [facility] 06/03/2020 Paranoid schizophrenia per p atient report Established Patient with Farrah Klinemons [facility] 06/03/2020 Post-traumatic stress disord er per patient report Established Patient with Farrah Hernandezs [facility] 06/03/2020 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 Patient with Traci Dennison [facility] 06/03/2020 Overweight Medical Established Patient with Traci Dennison [facility] 06/03/2020 Z68.29 - Body mass index [BM I] 29.0-29.9, adult Medical Established Patient with Traci Dennison [facility] 06/03/2020 Anxiety disorder NOS Medical Established Patient with Traci Dennison [facility] 01/26/2020 Bipolar disorder NOS Medical Established Patient with Traci Dennison [facility] 01/26/2020 Infection of tooth Medical Established Patient with Traci Dennison [facility] 01/26/2020 Z68.20 - Body mass index [BM I] 20.0-20.9, adult Medical Established Patient with Traci Dennison [facility] 01/26/2020 Bipolar I disorder, most rec ent episode, mixed Established Patient with Hannah Short [facility] 01/08/2020 Generalized anxiety disorder Establis hed Patient with Hannah Short [facility] 01/08/2020 Diabetes Risk Test Score was one score 01/08/2020 Medical Established Patient with Peggy Leoen [facility] 01/08/2020 Overweight Medical Established Patient with Peggy Thrasher [facility] 01/08/2020 Z68.27 - Body mass index (BM I) 27.0-27.9, adult Medical Established Patient with Peggy Anna Marie [facility] 01/08/2020 Bipolar I disorder, most rec ent episode, mixed Established Patient with Hannah Short [facility] 12/25/2019 Generalized anxiety disorder BH Establis hed Patient with Hannah Short [facility] 12/25/2019 Overweight Medical Established Patient with Peggy Thrasher [facility] 12/25/2019 Z68.26 - Body mass index (BM I) 26.0-26.9, adult Medical Established Patient with Peggy Thrasher [facility] 12/25/2019 [facility] Work Phone: 1(876) 680-442401-18-2022 Evaluation note Includes: Assessments for all patient encounters Findings Encounter Date Exposure to COVID-19 Telemedicine Establ isted Patient with Traci Dennison [facility] 04/29/2021 Bipolar schizoaffective disorder BH Esta blished Patient with Farrah Jarrett [facility] 04/15/2021 Anxiety disorder NOS Medical Established Patient with Traci Dennison [facility] 04/15/2021 Assessment of body mass index Medical Es tablished Patient with Traci Dennison [employer] [facility] 04/15/2021 Bipolar disorder NOS Medical Established Patient with Traci Dennison [employer] [facility] 04/15/2021 Anxiety disorder NOS Telebehavioral H ealth [...] Medic al Established Patient with Traci Dennison [employer] [facility] 04/03/2021 Assessment of body mass index Medical Es tablished Patient with Traci Dennison [facility] 04/03/2021 Epilepsy, not intractable, w ithout status epilepticus Medical Established Patient with Traci Dennison [employer] [facility] 04/03/2021 Mixed affective bipolar diso rder, moderate Medical Established Patient with Traci Dennison [facility] 04/03/2021 Urinary tract infection Medical Establis hed Patient with Traci Dennison [facility] 04/03/2021 Visit for: screening for STD Medical Est ablished Patient with Traci Dennison [facility] 04/03/2021 Assessment of visit for: lupe starr for human immunodeficiency virus Medical Established Patient with Peggy Thrasher [facility] 02/14/2021 Diabetes Risk Test Score was three score 02/14/2021 Medical Established Patient with Peggy Thrasher [facility] 02/14/2021 Diarrhea Medical Established Patient with Peggy Thrasher [facility] 02/14/2021 Nicotine dependence Medical Established Patient with Peggy Thrasehr [facility] 02/14/2021 Z68.28 - Body mass index [BM I] 28.0-28.9, adult Medical Established Patient with Peggy Thrasher [facility] 02/14/2021 Cough Telemedicine Establi sted Patient with Traci Dennison [facility] 01/01/2021 Fever Telemedicine Establi sted Patient with Traci Dennison [facility] 01/01/2021 Z20.822 - Contact with and ( suspected) exposure to COVID-19 Telemedicine Establisted Patient with Traci Dennison [facility] 01/01/2021 Bipolar I disorder, most rec ent episode, depressed Established Patient with [facility]matthew Jar[facility] 06/03/2020 Paranoid schizophrenia per p atient report Established Patient with Farrah Jarrett [facility] 06/03/2020 Post-traumatic stress disord er per patient report Established Patient with Farrah Jarrett [facility] 06/03/2020 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 Patient with Traci Dennison [facility] 06/03/2020 Overweight Medical Established Patient with Traci Dennison [facility] 06/03/2020 Z68.29 - Body mass index [BM I] 29.0-29.9, adult Medical Established Patient with Traci Dennison [facility] 06/03/2020 Anxiety disorder NOS Medical Established Patient with Traci Juma [facility] 01/26/2020 Bipolar disorder NOS Medical Established Patient with Traci Dennison [facility] 01/26/2020 Infection of tooth Medical Established Patient with Traci Dennison [facility] 01/26/2020 Z68.20 - Body mass index [BM I] 20.0-20.9, adult Medical Established Patient with Traci Dennison [facility] 01/26/2020 Bipolar I disorder, most rec ent episode, mixed Established Patient with Hannah Short [facility] 01/08/2020 Generalized anxiety disorder Establis hed Patient with Hannah Short [facility] 01/08/2020 Diabetes Risk Test Score was one score 01/08/2020 Medical Established Patient with Peggy Thrasher [facility] 01/08/2020 Overweight Medical Established Patient with Peggy Thrasher [facility] 01/08/2020 Z68.27 - Body mass index (BM I) 27.0-27.9, adult Medical Established Patient with Peggy Thrasher [facility] 01/08/2020 Bipolar I disorder, most rec ent episode, mixed BH Established Patient with Hannah Short [facility] 12/25/2019 Generalized anxiety disorder BH Establis hed Patient with Hannah Short [facility] 12/25/2019 Overweight Medical Established Patient with Peggy Thrasher [facility] 12/25/2019 Z68.26 - Body mass index (BM I) 26.0-26.9, adult Medical Established Patient with Peggy Thrasher [employer] [facility] 12/25/2019 [facility] Work Phone: 1(154) 274-699901-04-2022 Evaluation note Includes: Assessments for all patient encounters Findings Encounter Date Bipolar schizoaffective disorder Esta blished Patient with Farrah [facility] 04/15/2021 Anxiety disorder NOS Medical Established Patient with Traci Dennison [facility] 04/15/2021 Assessment of body mass index Medical Es tablished Patient with Traci Dennison [employer] [facility] 04/15/2021 Bipolar disorder NOS Medical Established Patient with Traci Dennison [employer] [facility] 04/15/2021 Anxiety disorder NOS Established Melanie ent [...] Medic al Established Patient with Traci Juma [facility] 04/03/2021 Assessment of body mass index Medical Es tablished Patient with Tracizachery Dennison [facility] 04/03/2021 Epilepsy, not intractable, w ithout status epilepticus Medical Established Patient with Traci Juma [facility] 04/03/2021 Mixed affective bipolar diso rder, moderate Medical Established Patient with Traci Juma [facility] 04/03/2021 Urinary tract infection Medical Establis hed Patient with Traci Juma [facility] 04/03/2021 Visit for: screening for STD Medical Est ablished Patient with Traci Dennison [facility] 04/03/2021 Assessment of visit for: scr eening for human immunodeficiency virus Medical Established Patient with Peggy Thrasher [facility] 02/14/2021 Diabetes Risk Test Score was three score 02/14/2021 Medical Established Patient with Peggy Thrasher [facility] 02/14/2021 Diarrhea Medical Established Patient with Peggy Thrasher [facility] 02/14/2021 Nicotine dependence Medical Established Patient with Peggy Thrasher [facility] 02/14/2021 Z68.28 - Body mass index [BM I] 28.0-28.9, adult Medical Established Patient with Peggy Thrasher [facility] 02/14/2021 Cough Telemedicine Establi sted Patient with Traci Dennison [facility] 01/01/2021 Fever Telemedicine Establi sted Patient with Traci Dennison [facility] 01/01/2021 Z20.822 - Contact with and ( suspected) exposure to COVID-19 Telemedicine Establisted Patient with Traci Dennison [facility] 01/01/2021 Bipolar I disorder, most rec ent episode, depressed Established Patient with Farrahmatthew Jarrett [facility] 06/03/2020 Paranoid schizophrenia per p atient report Established Patient with Farrah Jarrett [facility] 06/03/2020 Post-traumatic stress disord er per patient report Established Patient with Farrah Jarrett [facility] 06/03/2020 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 Patient with Traci Dennison [facility] 06/03/2020 Overweight Medical Established Patient with Traci Dennison [facility] 06/03/2020 Z68.29 - Body mass index [BM I] 29.0-29.9, adult Medical Established Patient with Traci Dennison [facility] 06/03/2020 Anxiety disorder NOS Medical Established Patient with Traci Dennison [facility] 01/26/2020 Bipolar disorder NOS Medical Established Patient with Traci Dennison [facility] 01/26/2020 Infection of tooth Medical Established Patient with Traci Dennison [facility] 01/26/2020 Z68.20 - Body mass index [BM I] 20.0-20.9, adult Medical Established Patient with Traci Dennison [facility] 01/26/2020 Bipolar I disorder, most rec ent episode, mixed Established Patient with Hannah Short [facility] 01/08/2020 Generalized anxiety disorder Establis hed Patient with Hannah Short [facility] 01/08/2020 Diabetes Risk Test Score was one score 01/08/2020 Medical Established Patient with Peggy Thrasher [facility] 01/08/2020 Overweight Medical Established Patient with Peggyisis Thrasher [facility] 01/08/2020 Z68.27 - Body mass index (BM I) 27.0-27.9, adult Medical Established Patient with Peggy Thrasher [facility] 01/08/2020 Bipolar I disorder, most rec ent episode, mixed Established Patient with Hannah Short [facility] 12/25/2019 Generalized anxiety disorder Establis hed Patient with Hannah Short [facility] 12/25/2019 Overweight Medical Established Patient with Peggyisis Thrasher [employer] 12/25/2019 Z68.26 - Body mass index (BM I) 26.0-26.9, adult Medical Established Patient with Peggy Thrasher [employer] 12/25/2019 [facility] Work Phone: 1([phone]) 756-167312-23-2021 Evaluation note Includes: Assessments for all patient [...] Medic al Established Patient with Traci Juma [employer] 04/03/2021 Assessment of body mass index Medical Es tablished Patient with Traci Juma [employer] [facility] 04/03/2021 Epilepsy, not intractable, w ithout status epilepticus Medical Established Patient with Traci Juma [employer] [facility] 04/03/2021 Mixed affective bipolar diso rder, moderate Medical Established Patient with Traci Juma [employer] [facility] 04/03/2021 Urinary tract infection Medical Establis hed Patient with Traci Juma [employer] 04/03/2021 Visit for: screening for STD Medical Est ablished Patient with Traci Juma [employer] [facility] 04/03/2021 Assessment of visit for: scr eening for human immunodeficiency virus Medical Established Patient with Peggy Anna Marie [employer] [facility] 02/14/2021 Diabetes Risk Test Score was three score 02/14/2021 Medical Established Patient with Peggy Thrasher [facility] 02/14/2021 Diarrhea Medical Established Patient with Peggy Thrasher [facility] 02/14/2021 Nicotine dependence Medical Established Patient with Peggy Thrasher [employer] [facility] 02/14/2021 Z68.28 - Body mass index [BM I] 28.0-28.9, adult Medical Established Patient with Peggy Thrasher [facility] 02/14/2021 Cough Telemedicine Establi sted Patient with Traci Dennison [facility] 01/01/2021 Fever Telemedicine Establi sted Patient with Traci Dennison [facility] 01/01/2021 Z20.822 - Contact with and ( suspected) exposure to COVID-19 Telemedicine Establisted Patient with Traci Dennison [employer] 01/01/2021 Bipolar I disorder, most rec ent episode, depressed Established Patient with Farrahmatthew Klinemons [facility] 06/03/2020 Paranoid schizophrenia per p atient report Established Patient with Fararhmatthew Klinemons [facility] 06/03/2020 Post-traumatic stress disord er per patient report Established Patient with Farrahmatthew Hernandezs [facility] 06/03/2020 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 Patient with Traci Dennison [facility] 06/03/2020 Overweight Medical Established Patient with Traci Dennison [facility] 06/03/2020 Z68.29 - Body mass index [BM I] 29.0-29.9, adult Medical Established Patient with Traci Dennison [employer] [facility] 06/03/2020 Anxiety disorder NOS Medical Established Patient with Traci Dennison [employer] [facility] 01/26/2020 Bipolar disorder NOS Medical Established Patient with Traci Dennison [facility] 01/26/2020 Infection of tooth Medical Established Patient with Tracizachery Dennison [facility] 01/26/2020 Z68.20 - Body mass index [BM I] 20.0-20.9, adult Medical Established Patient with Traci Dennison [facility] 01/26/2020 Bipolar I disorder, most rec ent episode, mixed Established Patient with Hannah Short [facility] 01/08/2020 Generalized anxiety disorder Establis hed Patient with Hannah Short [facility] 01/08/2020 Diabetes Risk Test Score was one score 01/08/2020 Medical Established Patient with Peggy Thrasher [employer] [facility] 01/08/2020 Overweight Medical Established Patient with Peggy Thrasher [facility] 01/08/2020 Z68.27 - Body mass index (BM I) 27.0-27.9, adult Medical Established Patient with Peggy Thrasher [facility] 01/08/2020 Bipolar I disorder, most rec ent episode, mixed Established Patient with Hannah Short [facility] 12/25/2019 Generalized anxiety disorder Establis hed Patient with Hannah Short [facility] 12/25/2019 Overweight Medical Established Patient with Peggy Thrasher [facility] 12/25/2019 Z68.26 - Body mass index (BM I) 26.0-26.9, adult Medical Established Patient with Peggy Thrasher [facility] 12/25/2019 [facility] Work Phone: 1(145) 194-468712-23-2021 History general Narrative - Reported Includes: Medical History in patient's chart Description Last Updated No previous hospitalizations 04/03/2021 History of complete colonoscopy 04/03/20 21 Epilepsy 12/25/2019 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 Ovarian cyst 12/25/2019 Post-traumatic stress disorder 0 History of asthma 12/25/2019 History of schizophrenia 12/25/2019 History of bipolar disorder NOS 12/25/19 20 History of depression 12/25/2019 History of psychiatric disorders 020 [facility] Work Phone: 1(504) 351-448811-05-2021 Evaluation note Includes: Assessments for all patient encounters Findings Encounter Date Diabetes Risk Test Score was three score 02/14/2021 Medical Established Patient with Peggy Thrasher [facility] 02/14/2021 Diarrhea Medical Established Patient with Peggy Thrasher [facility] 02/14/2021 Z68.28 - Body mass index [BM I] 28.0-28.9, adult Medical Established Patient with Peggy Thrasher [facility] 02/14/2021 Cough Telemedicine Establi sted Patient with Traci Dennison [facility] 01/01/2021 Fever Telemedicine Establi sted Patient with Traci Dennison [facility] 01/01/2021 Z20.822 - Contact with and ( suspected) exposure to COVID-19 Telemedicine Establisted Patient with Traci Dennison [facility] 01/01/2021 Bipolar I disorder, most rec ent episode, depressed Established Patient with Farrah Jarrett [facility] 06/03/2020 Paranoid schizophrenia per p atient report Established Patient with Farrah Jarrett [facility] 06/03/2020 Post-traumatic stress disord er per patient report Established Patient with Farrah Jarrett [facility] 06/03/2020 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 Patient with Traci Dennison [employer] 06/03/2020 Overweight Medical Established Patient with Traci Dennison [employer] 06/03/2020 Z68.29 - Body mass index [BM I] 29.0-29.9, adult Medical Established Patient with Traci Dennison [employer] 06/03/2020 Anxiety disorder NOS Medical Established Patient with Traci Dennison [employer] 01/26/2020 Bipolar disorder NOS Medical Established Patient with Traci Dennison [employer] 01/26/2020 Infection of tooth Medical Established Patient with Traci Dennison [employer] 01/26/2020 Z68.20 - Body mass index [BM I] 20.0-20.9, adult Medical Established Patient with Traci Dennison [employer] 01/26/2020 Bipolar I disorder, most rec ent episode, mixed Established Patient with Hannah Short [facility] 01/08/2020 Generalized anxiety disorder Establis hed Patient with Hannah Short [facility] 01/08/2020 Diabetes Risk Test Score was one score 01/08/2020 Medical Established Patient with Peggy Anna Marie [employer] 01/08/2020 Overweight Medical Established Patient with Peggy Anna Marie [employer] 01/08/2020 Z68.27 - Body mass index (BM I) 27.0-27.9, adult Medical Established Patient with Peggy Anna Marie [employer] 01/08/2020 Bipolar I disorder, most rec ent episode, mixed Established Patient with Hannah Short [facility] 12/25/2019 Generalized anxiety disorder Establis hed Patient with Hannah Short [facility] 12/25/2019 Overweight Medical Established Patient with Peggy Anna Marie [employer] 12/25/2019 Z68.26 - Body mass index (BM I) 26.0-26.9, adult Medical Established Patient with Peggy Anna Marie [employer] 12/25/2019 [facility] Work Phone: 1(383) 786-402711-05-2021 Evaluation note Includes: Assessments for all patient encounters Findings Encounter Date Assessment of visit for: lupe starr for human immunodeficiency virus Medical Established Patient with Peggy Anna Marie [employer] 02/14/2021 Diabetes Risk Test Score was three score 02/14/2021 Medical Established Patient with Peggy Anna Marie [employer] 02/14/2021 Diarrhea Medical Established Patient with Peggy Anna Marie [employer] 02/14/2021 Nicotine dependence Medical Established Patient with Peggy Thrasher [facility] 02/14/2021 Z68.28 - Body mass index [BM I] 28.0-28.9, adult Medical Established Patient with Peggy Thrasher [employer] 02/14/2021 Cough Telemedicine Establi sted Patient with Traci Dennison [facility] 01/01/2021 Fever Telemedicine Establi sted Patient with Traci Dennison [facility] 01/01/2021 Z20.822 - Contact with and ( suspected) exposure to COVID-19 Telemedicine Establisted Patient with Traci Dennison [employer] 01/01/2021 Bipolar I disorder, most rec ent episode, depressed Established Patient with Farrah Klinemons [facility] 06/03/2020 Paranoid schizophrenia per p atient report Established Patient with Farrah Hernandezs [facility] 06/03/2020 Post-traumatic stress disord er per patient report Established Patient with Farrah Jarrett [facility] 06/03/2020 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 Patient with Traci Dennison [facility] 06/03/2020 Overweight Medical Established Patient with Traci Dennison [facility] 06/03/2020 Z68.29 - Body mass index [BM I] 29.0-29.9, adult Medical Established Patient with Traci Dennison [employer] 06/03/2020 Anxiety disorder NOS Medical Established Patient with Traci Dennison [facility] 01/26/2020 Bipolar disorder NOS Medical Established Patient with Traci Dennison [facility] 01/26/2020 Infection of tooth Medical Established Patient with Traci Dennison [facility] 01/26/2020 Z68.20 - Body mass index [BM I] 20.0-20.9, adult Medical Established Patient with Traci Dennison [facility] 01/26/2020 Bipolar I disorder, most rec ent episode, mixed Established Patient with Hannah Short [facility] 01/08/2020 Generalized anxiety disorder Establis hed Patient with Hannah Short [facility] 01/08/2020 Diabetes Risk Test Score was one score 01/08/2020 Medical Established Patient with Peggy Anna Marie [employer] 01/08/2020 Overweight Medical Established Patient with Peggy Thrasher [facility] 01/08/2020 Z68.27 - Body mass index (BM I) 27.0-27.9, adult Medical Established Patient with Peggy Anna Marie [facility] 01/08/2020 Bipolar I disorder, most rec ent episode, mixed BH Established Patient with Hannah Short [facility] 12/25/2019 Generalized anxiety disorder BH Establis hed Patient with Hannah Short [facility] 12/25/2019 Overweight Medical Established Patient with Peggy Thrasher [employer] 12/25/2019 Z68.26 - Body mass index (BM I) 26.0-26.9, adult Medical Established Patient with Peggy Thrasher [employer] 12/25/2019 [employer] [facility] Work Phone: 1(181) 904-580510-29-2021 Hospital Discharge instructions* Instructions* Serenity Will, - 02/07/2021 Follow-up with your primary care provider next week, and call to schedule follow-up with GI doctor.For follow-up as soon as possible. Return to ER for any symptoms documented in this encounterDigitour Media Phone: 1(718) 352-360610-27-2021 Hospital Discharge instructions* Instructions* Мария Yee, - 02/05/2021 Fill and take the Pepcid and Maalox as prescribed. Follow-up with your family doctor or a manager communication. Return to the emergency department for new, worsening or worrisome symptoms. * Attachments The following attachments cannot be sent through Care Everywhere. 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 Ovarian cyst 12/25/2019 Post-traumatic stress disorder 0 History of asthma 12/25/2019 History of schizophrenia 12/25/2019 History of bipolar disorder NOS 12/25/19 20 History of depression 12/25/2019 History of psychiatric disorders 020 [facility] [employer] [facility] Work Phone: 1(112) 657-585809-28-2020 Instructions Includes: Instructions for all patient encounters Instructions to patient Intervention and counseling on cessation of tobacco use, 3-10 minutes Last Documented On 0 1:15PM ; [facility] Education and Decision Aids were provided during visit for: Discussed nutritional needs teach healthy choices including fruits and vegetables Last Documented On 3 12:03PM ; [facility] Patient education about a pr oper diet Last Documented On 3 12:03PM ; [facility] Discussed concerns about exe rcise : promote physical activity ~ ~Will keep medication the same Last Documented On 3 4:46AM ; [facility] Not requesting contraception Last Documented On 3 12:04PM ; [facility] Discussed nutritional needs teach healthy choices including fruits and vegetables Last Documented On 3 9:09AM ; [facility] Patient education about a pr oper diet Last Documented On 3 9:09AM ; [facility] Patient education about an a sthma action plan Last Documented On 3 9:44AM ; [facility] Discussed concerns about exe rcise : promote physical activity ~ ~Will restart symbicort ~ ~Follow up in one month for asthma Last Documented On 3 12:28PM ; [facility] Discussed nutritional needs teach healthy choices including fruits and vegetables Last Documented On 2 10:58AM ; [facility] Patient education about a pr oper diet Last Documented On 2 10:58AM ; [facility] Discussed concerns about exe rcise : promote physical activity Last Documented On 2 10:58AM ; [facility] Discussed nutritional needs teach healthy choices including fruits and vegetables Last Documented On 2 11:41AM ; [facility] Patient education about a pr oper diet Last Documented On 2 11:41AM ; [facility] Discussed concerns about exe rcise : promote physical activity Last Documented On 2 11:41AM ; [facility] offered active listening and supportive feedback; normalized emotions and feelings, also provided pt time to process any current stressors ~P discussed benefits of counseling and supported pt in following through with scheduled appt. ~P encouraged pt to continue to make time to implement self-care regimen to assist in improving their mood Last Documented On 2 2:29PM ; [facility] Provided supportive listenin g and reflective feedback; monitored mood, explored symptoms, assessed functioning. ~Discussed medication use/compliance. ~Promoted use of healthy coping mechanisms and positive support, as needed Last Documented On 2 1:25PM ; [facility] Discussed nutritional needs teach healthy choices including fruits and vegetables Last Documented On 2 12:54PM ; [facility] Patient education about a pr oper diet Last Documented On 2 12:54PM ; [facility] Discussed concerns about exe rcise : promote physical activity Last Documented On 2 12:54PM ; [facility] Discussed nutritional needs teach healthy choices including fruits and vegetables Last Documented On 2 11:39AM ; [facility] Patient education about a pr oper diet Last Documented On 2 11:39AM ; [facility] Discussed concerns about exe rcise : promote physical activity Last Documented On 2 11:39AM ; [facility] Discussed nutritional needs teach healthy choices including fruits and vegetables Last Documented On 2 10:29AM ; [facility] Patient education about a pr oper diet Last Documented On 2 10:29AM ; [facility] Discussed concerns about exe rcise : promote physical activity Last Documented On 2 10:29AM ; [facility] Discussed current self-care methods/coping skills. ~Validated and normalized patient's feelings while assisting process recent events. ~Discussed ongoing counseling. ~Discussed lifestyle changes to address chronic illness. ~Supported patient's personal health goals Last Documented On 2 8:50PM ; [facility] [facility] Discussed nutritional needs teach healthy choices including fruits and vegetables Last Documented On 2 11:15AM ; [facility] Patient education about a pr oper diet Last Documented On 2 11:15AM ; [facility] Discussed concerns about exe rcise : promote physical activity Last Documented On 2 11:15AM ; [facility] Discussed current self-care methods/coping skills. ~Validated and normalized patient's feelings while assisting process recent events. ~Discussed ongoing mental health services. ~Discussed lifestyle changes to address chronic illness. ~Supported patient's personal health goals. ~ ~Reports feeling better since beginning new meds. Also voices and visual hallucinations have stopped; reports voices were not commanfing Last Documented On 2 8:54PM ; [facility] and normalized emotions and feelings. ~[facility] discussed with patient and significant other in the room with her crisis resources. Patient is agreeable to contacting one of the crisis resources should moods worsen or call 911 or go to the Emergency Room. Patient reports that she can also speak with significant others Mom or go to her [employer] [facility]. ~[facility] and PCP discussed plan to follow-up with psychiatry and counseling and a new referral being sent to [facility]. If patient is not accepted back as a patient with Dr. Dickerson, will look into other resources Last Documented On 1 7:15PM ; [facility] Discussed nutritional needs teach healthy choices including fruits and vegetables Last Documented On 1 1:18PM ; [facility] Patient education about a pr oper diet Last Documented On 1 1:18PM ; [facility] Discussed concerns about exe rcise : promote physical activity Last Documented On 1 1:18PM ; [facility] Discussed nutritional needs teach healthy choices including fruits and vegetables Last Documented On 1 10:37AM ; [facility] Patient education about a pr oper diet Last Documented On 1 10:37AM ; [facility] Discussed concerns about exe rcise : promote physical activity Last Documented On 1 10:37AM ; [facility] Explored current symptoms an d stressors. Educaated patient re importance of counseling and provided brief review of EMDR treatment. ~Encouraged patient to engage in ongoing counseling. ~ Last Documented On 1 10:50PM ; [facility] Discussed nutritional needs teach healthy choices including fruits and vegetables Last Documented On 1 6:53PM ; [facility] Patient education about a pr oper diet Last Documented On 1 6:53PM ; [facility] Discussed concerns about exe rcise : promote physical activity Last Documented On 1 6:53PM ; [facility] provided active listenin g, support and helped patient process through current symptoms and stressors related to mood and irritability. ~[facility] discussed coping skills that patient has tried as well as discussed potential benefit of counseling. ~ ~ Last Documented On 0 11:49AM ; [facility] Discussed nutritional needs teach healthy choices including fruits and vegetables Last Documented On 0 1:15PM ; [facility] Patient education about a pr oper diet Last Documented On 0 1:15PM ; [facility] Patient education about a pr oper diet Last Documented On 0 1:33PM ; [facility] Patient education about meal planning Last Documented On 0 1:33PM ; [facility] Education about changing eat ing habits Last Documented On 0 1:33PM ; [facility] Patient education about high fiber diet Last Documented On 0 1:33PM ; [facility] Patient education about low fat diet Last Documented On 0 1:33PM ; [facility] Patient education about low cholesterol diet Last Documented On 0 1:33PM ; [facility] Patient education about low carbohydrate diet Last Documented On 0 1:33PM ; [facility] Patient education about high protein diet Last Documented On 0 1:33PM ; [facility] Discussed concerns about exe rcise : promote physical activity Last Documented On 0 1:15PM ; [facility] provided active listenin g, support and helped patient process through current symptoms and stressors due to pain, loss of work and low frustration tolerance. ~[facility] discussed coping skills and supports that patient can implement inclduing meditation, mindfulness, and deep breathing activities. [facility] provided resources to patient to work on implementing. ~[facility] discussed with patient re-establishing care for therapy and provided patient with resource list. ~ Last Documented On 0 6:15PM ; [facility] Discussed nutritional needs teach healthy choices including fruits and vegetables Last Documented On 0 1:12PM ; [facility] Patient education about a pr oper diet Last Documented On 0 1:12PM ; [facility] Patient education about a pr oper diet Last Documented On 0 1:46PM ; [facility] Patient education about meal planning Last Documented On 0 1:46PM ; [facility] Education about changing eat ing habits Last Documented On 0 1:46PM ; [facility] Patient education about high fiber diet Last Documented On 0 1:46PM ; [facility] Patient education about low fat diet Last Documented On 0 1:46PM ; [facility] Patient education about low cholesterol diet Last Documented On 0 1:46PM ; [facility] Patient education about low carbohydrate diet Last Documented On 0 1:46PM ; [facility] Patient education about high protein diet Last Documented On 0 1:46PM ; [facility] Discussed concerns about exe rcise : promote physical activity Last Documented On 0 1:12PM ; [facility] Work Phone: Evaluation note* Diagnosis Abdominal pain, epigastric- Primary documented in this encounter [employer] Phone: evaluation note* Diagnosis Infective otitis externa of left ear- Primary Acute serous otitis media, recurrence not specified, unspecified laterality documented in this encounter [employer] Phone: evaluation note* Diagnosis Injury of right wrist, initial encounter- Primary documented in this encounter [employer] Phone: evaluation note* Diagnosis Suspected COVID-19 virus infection- Primary documented in this encounter [employer] Phone: evaluation note* Diagnosis Abdominal pain, epigastric- Primary documented in this encounter [employer] Phone: evaluation note* Diagnosis Abdominal pain, epigastric- Primary Non-intractable vomiting with nausea, unspecified vomiting type Diarrhea, unspecified type documented in this encounter [employer] Phone: evaluation note* Diagnosis Pain of upper abdomen- Primary Abdominal pain, other specified site documented in this encounter [employer] Phone: evalsmgdej note* Diagnosis Right shoulder injury, initial encounter- Primary documented in this encounter [employer] Phone: evaluation note* Diagnosis Periumbilical abdominal pain- Primary Abdominal pain, periumbilic documented in this encounter [employer] Phone: evaluation note* Diagnosis Folliculitis- Primary Other specified disease of hair and hair follicles Possible exposure to STD Other specified personal history presenting hazards to health documented in this encounter [email or web address] Phone: evaluation note* Diagnosis Gastroenteritis- Primary Other and unspecified noninfectious gastroenteritis and colitis documented in this encounter [email or web address] Phone: evaluation note* Diagnosis Diarrhea, unspecified type documented in this encounter [email or web address] Phone: evaluation note* Diagnosis Palpitations documented in this encounter [email or web address] Phone: evaluation note* Diagnosis Nausea vomiting and diarrhea- Primary Nausea with vomiting documented in this encounter [email or web address] Phone: evaluation note Includes: Assessments for all patient encounters Findings Encounter Date [Body mass index [BMI] 33.0- 33.9, adult] assessment of body mass index Medical Established Patient with Srinivsaa Jhaveri [employer] MECH[employer]IC 11/30/2022 Last Documented On 3 12:28PM ; [facility] Anxiety disorder NOS Medical Established Patient with Srinivasa Jhaveri BLOCK MECHANIC 11/30/2022 Last Documented On 3 12:28PM ; [facility] Diabetes Risk Test Score was four score 11/30/2022 Medical Established Patient with Srinivasa Jhaveri BLOCK MECHANIC 11/30/2022 Last Documented On 3 12:28PM ; [facility] Uncomplicated mild persistent asthma Med ical Established Patient with Srinivasa Boyceer BLOCK MECHANIC 11/30/2022 Last Documented On 3 12:28PM ; [facility] Visit for: routine adult H&P with abnormal findings Medical Established Patient with Srinivasa Ed BLOCK MECHANIC 11/30/2022 Last Documented On 3 12:28PM ; [facility] [Body mass index [BMI] 30.0- 30.9, adult] assessment of body mass index Medical Established Patient with Srinivasa Ed BLOCK MECHANIC 01/22/2022 Last Documented On 2 6:17PM ; [facility] Dysuria Medical Established Patient with Srinivasa Ed BLOCK MECHANIC 01/22/2022 Last Documented On 2 6:17PM ; [facility] Bipolar schizoaffective disorder BH Esta blished Patient with Bharat Díaz LPCC-S 12/11/2021 Last Documented On 2 2:31PM ; [facility] Assessment of body mass inde x [Body mass index [BMI] 26.0-26.9, adult] Medical Established Patient with Srinivasa Ed BLOCK MECHANIC 12/11/2021 Last Documented On 2 12:34PM ; [facility] Bipolar schizoaffective disorder BH Esta blished Patient with Bharattameka Díaz LPCC-S 11/25/2021 Last Documented On 2 1:25PM ; [facility] Anxiety disorder NOS Medical Established Patient with Traci Juma [employer] 11/25/2021 Last Documented On 2 3:06PM ; [facility] Urinary tract infection Medical Establis hed Patient with Traci Dennison [employer] MECH[employer]IC 11/25/2021 Last Documented On 2 3:06PM ; [facility] Z68.27 - Body mass index [BM I] 27.0-27.9, adult Medical Established Patient with Traci Juma BLOCK MECH[employer]IC 11/25/2021 Last Documented On 2 3:06PM ; [facility] Anxiety disorder NOS Medical Established Patient with Traci Juma BLOCK MECHANIC 08/13/2021 Last Documented On 2 8:18AM ; [facility] Assessment of body mass index Medical Es tablished Patient with Traci Juma BLOCK MECHANIC 08/13/2021 Last Documented On 2 8:18AM ; [facility] Chronic gastritis without hemorrhage Med ical Established Patient with Traci Juma BLOCK MECHANIC 08/13/2021 Last Documented On 2 8:18AM ; [facility] Diverticulosis of intestine Medical Esta blished Patient with Traci Dennison [employer] MECH[employer]IC 08/13/2021 Last Documented On 2 8:18AM ; [facility] Urinary tract infection Medical Establis hed Patient with Tracizachery Dennison BLOCK MECHANIC 08/13/2021 Last Documented On 2 8:18AM ; [facility] Anxiety disorder NOS Medical Established Patient with Tracizachery Dennison BLOCK MECHANIC 07/17/2021 Last Documented On 2 8:10AM ; [facility] Other hypothyroidism Medical Established Patient with Traci Juma BLOCK MECH[employer]IC 07/17/2021 Last Documented On 2 8:10AM ; [facility] Upper respiratory infection Medical Esta blished Patient with Traci Dennison BLOCK MECHANIC 07/17/2021 Last Documented On 2 8:10AM ; [facility] Visit for: routine adult H&P with abnormal findings Medical Established Patient with Traci Dennison BLOCK MECHANIC 07/17/2021 Last Documented On 2 8:10AM ; [facility] Visit for: screening for lip oid disorders Medical Established Patient with Traci Dennison [employer] MECH[employer]IC 07/17/2021 Last Documented On 2 8:10AM ; [facility] Vitamin B12 deficiency Medical Establish ed Patient with Traci Dennison BLOCK MECHANIC 07/17/2021 Last Documented On 2 8:10AM ; [facility] Vitamin D deficiency Medical Established Patient with Traci Dennison BLOCK MECHANIC 07/17/2021 Last Documented On 2 8:10AM ; [facility] Z68.28 - Body mass index [BM I] 28.0-28.9, adult Medical Established Patient with Traci Dennison [employer]CH[employer]IC 07/17/2021 Last Documented On 2 8:10AM ; [facility] Allergic rhinitis Telemedicine Establi sted Patient with Traci Dennison BLOCK MECHANIC 07/16/2021 Last Documented On 2 8:23AM ; [facility] Exposure to COVID-19 Telemedicine Establ isted Patient with Traci Dennison BLOCK MECHANIC 04/29/2021 Last Documented On 2 8:02PM ; [facility] Bipolar schizoaffective disorder Esta blished Patient with Farrah Jarrett LPCC-S 04/15/2021 Last Documented On 2 1:07PM ; [facility] Anxiety disorder NOS Medical Established Patient with Traci Dennison [employer]IC 04/15/2021 Last Documented On 2 9:06AM ; [facility] Assessment of body mass index Medical Es tablished Patient with Traci Dennison BLOCK MECHANIC 04/15/2021 Last Documented On 2 9:06AM ; [facility] Bipolar disorder NOS Medical Established Patient with Traci Dennison BLOCK MECHANIC 04/15/2021 Last Documented On 2 9:06AM ; [facility] Anxiety disorder NOS Telebehavioral H ealth with Farrah Jarrett LPCC-S 04/09/2021 Last Documented On 2 9:05AM ; [facility] Bipolar disorder NOS Telebehavioral H ealth with Farrah Jarrett LPCC-S 04/09/2021 Last Documented On 2 9:05AM ; [facility] Anxiety disorder NOS Established Patient with Hannah Short LISWS 04/03/2021 Last Documented On 1 7:15PM ; [facility] Bipolar I disorder, most rec ent episode, depressed Established Patient with Hannah Short LISWS 04/03/2021 Last Documented On 1 7:15PM ; [facility] Nicotine dependence Established Patient with Hannah Short LISWS 04/03/2021 Last Documented On 1 7:15PM ; [facility] Nicotine dependence Established Patient with Hannah Short LISWS 04/03/2021 Last Documented On 1 7:15PM ; [facility] Undifferentiated schizophren ia per patient reported history Established Patient with Hannah Short LISWS 04/03/2021 Last Documented On 1 7:15PM ; [facility] A home test was negative Medic al Established Patient with Traci Dennison BLOCK MECHANIC 04/03/2021 Last Documented On 1 8:11PM ; [facility] Assessment of body mass index Medical Es tablished Patient with Traci Dennison BLOCK MECHANIC 04/03/2021 Last Documented On 1 8:11PM ; [facility] Epilepsy, not intractable, w ithout status epilepticus Medical Established Patient with Traci Dennison BLOCK MECHANIC 04/03/2021 Last Documented On 1 8:11PM ; [facility] Mixed affective bipolar diso rder, moderate Medical Established Patient with Traci Dennison BLOCK MECHANIC 04/03/2021 Last Documented On 1 8:11PM ; [facility] Urinary tract infection Medical Establis hed Patient with Traci Dennison BLOCK MECHANIC 04/03/2021 Last Documented On 1 8:11PM ; [facility] Visit for: screening for STD Medical Est ablished Patient with Traci Dennison BLOCK MECHANIC 04/03/2021 Last Documented On 1 8:11PM ; [facility] Assessment of visit for: scr eening for human immunodeficiency virus Medical Established Patient with Peggy Thrasher [facility] 02/14/2021 Last Documented On 1 1:16PM ; [facility] Diabetes Risk Test Score was three score 02/14/2021 Medical Established Patient with Peggy Thrasher BLOCK MECHANIC 02/14/2021 Last Documented On 1 1:16PM ; [facility] Diarrhea Medical Established Patient with Peggy Thrasher BLOCK MECHANIC 02/14/2021 Last Documented On 1 1:16PM ; [facility] Nicotine dependence Medical Established Patient with Peggy Thrasher BLOCK MECHANIC 02/14/2021 Last Documented On 1 1:16PM ; [facility] Z68.28 - Body mass index [BM I] 28.0-28.9, adult Medical Established Patient with Peggy Thrasher BLOCK MECHANIC 02/14/2021 Last Documented On 1 1:16PM ; [facility] Cough Telemedicine Establisted Patient with Traci Dennison [employer] MECHANIC 01/01/2021 Last Documented On 1 6:31PM ; [facility] Fever Telemedicine Establisted Patient with Traci Dennison BLOCK MECHANIC 01/01/2021 Last Documented On 1 6:31PM ; [facility] Z20.822 - Contact with and (suspected) exposure to COVID-19 Telemedicine Establisted Patient with Traci Dennison BLOCK MECHANIC 01/01/2021 Last Documented On 1 6:31PM ; [facility] Bipolar I disorder, most rec ent episode, depressed Established Patient with Farrah Jarrett LPCC-S 06/03/2020 Last Documented On 1 10:50PM ; [facility] Paranoid schizophrenia per p atient report Established Patient with Farrah Jarrett LPCC-S 06/03/2020 Last Documented On 1 10:50PM ; [facility] Post-traumatic stress disord er per patient report Established Patient with Farrah Jarrett LPCC-S 06/03/2020 Last Documented On 1 10:50PM ; [facility] 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 Patient with Traci Dennison [employer]CH[employer]IC 06/03/2020 Last Documented On 1 8:25AM ; [facility] Overweight Medical Established Patient with Traci Dennison [employer] MECHANIC 06/03/2020 Last Documented On 1 8:25AM ; [facility] Z68.29 - Body mass index [BM I] 29.0-29.9, adult Medical Established Patient with Traci Dennison [employer]CH[employer]IC 06/03/2020 Last Documented On 1 8:25AM ; [facility] Anxiety disorder NOS Medical Established Patient with Traci Dennison BLOCK MECHANIC 01/26/2020 Last Documented On 0 7:37PM ; [facility] Bipolar disorder NOS Medical Established Patient with Traci Dennison BLOCK MECHANIC 01/26/2020 Last Documented On 0 7:37PM ; [facility] Infection of tooth Medical Established Patient w ith Traci Dennison BLOCK MECHANIC 01/26/2020 Last Documented On 0 7:37PM ; [facility] Z68.20 - Body mass index [BM I] 20.0-20.9, adult Medical Established Patient with Traci Dennison BLOCK MECHANIC 01/26/2020 Last Documented On 0 7:37PM ; [facility] Bipolar I disorder, most rec ent episode, mixed Established Patient with Hannah Short LISWS 01/08/2020 Last Documented On 0 11:49AM ; [facility] Generalized anxiety disorder Establis hed Patient with Hannah Short LISWS 01/08/2020 Last Documented On 0 11:49AM ; [facility] Diabetes Risk Test Score was one score 01/08/2020 Medical Established Patient with Peggy Anna Marie BLOCK MECHANIC 01/08/2020 Last Documented On 0 1:42PM ; [facility] Overweight Medical Established Patient with Peggy Anna Marie BLOCK MECHANIC 01/08/2020 Last Documented On 0 1:42PM ; [facility] Z68.27 - Body mass index (BM I) 27.0-27.9, adult Medical Established Patient with Peggy Anna Marie BLOCK MECHANIC 01/08/2020 Last Documented On 0 1:42PM ; [facility] Bipolar I disorder, most rec ent episode, mixed Established Patient with Hannah Short LISWS 12/25/2019 Last Documented On 0 6:16PM ; [facility] Generalized anxiety disorder Establis hed Patient with Hannah Short LISWS 12/25/2019 Last Documented On 0 6:16PM ; [facility] Overweight Medical Established Patient with Peggy Anna Marie BLOCK MECHANIC 12/25/2019 Last Documented On 0 1:54PM ; [facility] Z68.26 - Body mass index (BM I) 26.0-26.9, adult Medical Established Patient with Peggy Anna Marie BLOCK MECHANIC 12/25/2019 Last Documented On 0 1:54PM ; [facility] Work Phone: Evaluation note Includes: Assessments for all patient encounters Findings Encounter Date Anxiety disorder NOS Established Patient with Lea Stone [employer] 02/19/2023 Last Documented On 3 11:18AM ; [facility] Bipolar schizoaffective disorder Esta blished Patient with Lea Stone [employer] 02/19/2023 Last Documented On 3 11:18AM ; [facility] Nicotine dependence Established Patient with Lea Stone [employer] 02/19/2023 Last Documented On 3 11:18AM ; [facility] Assessment of body mass index Open Acces s - Established with Srinivasa Ed BLOCK MECHANIC 02/19/2023 Last Documented On 3 12:18PM ; [facility] [Body mass index [BMI] 33.0- 33.9, adult] assessment of body mass index Medical Established Patient with Srinivasa Ed BLOCK MECHANIC 02/05/2023 Last Documented On 3 3:48PM ; [facility] Anxiety disorder NOS Medical Established Patient with Srinivasa Ed BLOCK MECHANIC 02/05/2023 Last Documented On 3 3:48PM ; [facility] Body mass index Medical Established Patient with Srinivasa Ed [employer] MECHANIC 01/28/2023 Last Documented On 3 8:31PM ; [facility] [Body mass index [BMI] 32.0- 32.9, adult] assessment of body mass index Medical Established Patient with Srinivasa Ed [employer] MECHANIC 12/31/2022 Last Documented On 3 5:25AM ; [facility] Uncomplicated mild persistent asthma Med ical Established Patient with Srinivasa Ed BLOCK MECHANIC 12/31/2022 Last Documented On 3 5:25AM ; [facility] [Body mass index [BMI] 33.0- 33.9, adult] assessment of body mass index Medical Established Patient with Srinivasa Ed BLOCK MECHANIC 11/30/2022 Last Documented On 3 12:28PM ; [facility] Anxiety disorder NOS Medical Established Patient with Srinivasa Ed BLOCK MECHANIC 11/30/2022 Last Documented On 3 12:28PM ; [facility] Diabetes Risk Test Score was four score 11/30/2022 Medical Established Patient with Srinivasa Ed BLOCK MECHANIC 11/30/2022 Last Documented On 3 12:28PM ; [facility] Uncomplicated mild persistent asthma Med ical Established Patient with Srinivasa Ed BLOCK MECHANIC 11/30/2022 Last Documented On 3 12:28PM ; [facility] Visit for: routine adult H&P with abnormal findings Medical Established Patient with Srinivasa Ed BLOCK MECHANIC 11/30/2022 Last Documented On 3 12:28PM ; [facility] [Body mass index [BMI] 30.0- 30.9, adult] assessment of body mass index Medical Established Patient with Srinivasa Ed BLOCK MECHANIC 01/22/2022 Last Documented On 2 6:17PM ; [facility] Dysuria Medical Established Patient with Srinivasa Ed [employer] MECHANIC 01/22/2022 Last Documented On 2 6:17PM ; [facility] Bipolar schizoaffective disorder Esta blished Patient with Bharat Díaz LPCC-S 12/11/2021 Last Documented On 2 2:31PM ; [facility] Assessment of body mass inde x [Body mass index [BMI] 26.0-26.9, adult] Medical Established Patient with Srinivasa Ed BLOCK MECHANIC 12/11/2021 Last Documented On 2 12:34PM ; [facility] Bipolar schizoaffective disorder BH Esta blished Patient with Bharattameka Díaz LPCC-S 11/25/2021 Last Documented On 2 1:25PM ; [facility] Anxiety disorder NOS Medical Established Patient with Traci Juma BLOCK MECH[employer]IC 11/25/2021 Last Documented On 2 3:06PM ; [facility] Urinary tract infection Medical Establis hed Patient with Traci Juma BLOCK MECHANIC 11/25/2021 Last Documented On 2 3:06PM ; [facility] Z68.27 - Body mass index [BM I] 27.0-27.9, adult Medical Established Patient with Traci Juma BLOCK MECHANIC 11/25/2021 Last Documented On 2 3:06PM ; [facility] Anxiety disorder NOS Medical Established Patient with Traci Juma BLOCK MECHANIC 08/13/2021 Last Documented On 2 8:18AM ; [facility] Assessment of body mass index Medical Es tablished Patient with Traci Juma BLOCK MECHANIC 08/13/2021 Last Documented On 2 8:18AM ; [facility] Chronic gastritis without hemorrhage Med ical Established Patient with Traci Juma BLOCK MECHANIC 08/13/2021 Last Documented On 2 8:18AM ; [facility] Diverticulosis of intestine Medical Esta blished Patient with Traci Dennison BLOCK MECHANIC 08/13/2021 Last Documented On 2 8:18AM ; [facility] Urinary tract infection Medical Establis hed Patient with Tracizachery Dennison BLOCK MECHANIC 08/13/2021 Last Documented On 2 8:18AM ; [facility] Anxiety disorder NOS Medical Established Patient with Traci Dennison [employer] MECH[employer]IC 07/17/2021 Last Documented On 2 8:10AM ; [facility] Other hypothyroidism Medical Established Patient with Tracizachery Dennison BLOCK MECHANIC 07/17/2021 Last Documented On 2 8:10AM ; [facility] [facility] Upper respiratory infection Medical Esta blished Patient with Traci Dennison [employer] 07/17/2021 Last Documented On 2 8:10AM ; [facility] Visit for: routine adult H&P with abnormal findings Medical Established Patient with Traci Dennison [employer] 07/17/2021 Last Documented On 2 8:10AM ; [facility] Visit for: screening for lip oid disorders Medical Established Patient with Traci Dennison [employer] 07/17/2021 Last Documented On 2 8:10AM ; [facility] Vitamin B12 deficiency Medical Establish ed Patient with Traci Dennison [employer] 07/17/2021 Last Documented On 2 8:10AM ; [facility] Vitamin D deficiency Medical Established Patient with Traci Dennison [employer] 07/17/2021 Last Documented On 2 8:10AM ; [facility] Z68.28 - Body mass index [BM I] 28.0-28.9, adult Medical Established Patient with Traci Dennison [employer] 07/17/2021 Last Documented On 2 8:10AM ; [facility] Allergic rhinitis Telemedicine Establi sted Patient with Traci Dennison [employer] 07/16/2021 Last Documented On 2 8:23AM ; [facility] Exposure to COVID-19 Telemedicine Establ isted Patient with Traci Dennison [employer] 04/29/2021 Last Documented On 2 8:02PM ; [facility] Bipolar schizoaffective disorder BH Esta blished Patient with Farrah Jarrett [facility] 04/15/2021 Last Documented On 2 1:07PM ; [facility] Anxiety disorder NOS Medical Established Patient with Traci Dennison [employer] 04/15/2021 Last Documented On 2 9:06AM ; [facility] Assessment of body mass index Medical Es tablished Patient with Traci Dennison [employer] 04/15/2021 Last Documented On 2 9:06AM ; [facility] Bipolar disorder NOS Medical Established Patient with Traci Dennison [employer] 04/15/2021 Last Documented On 2 9:06AM ; [facility] Anxiety disorder NOS Telebehavioral H ealth with Farrah Jarrett [facility] 04/09/2021 Last Documented On 2 9:05AM ; [facility] Bipolar disorder NOS Telebehavioral H ealth with Farrah Jarrett [facility] 04/09/2021 Last Documented On 2 9:05AM ; [facility] Anxiety disorder NOS Established Patient with Hannah Short LISWS 04/03/2021 Last Documented On 1 7:15PM ; [facility] Bipolar I disorder, most rec ent episode, depressed Established Patient with Hannah Short LISWS 04/03/2021 Last Documented On 1 7:15PM ; [facility] Nicotine dependence Established Patient with Hannah Short LISWS 04/03/2021 Last Documented On 1 7:15PM ; [facility] Nicotine dependence Established Patient with Hannah Short LISWS 04/03/2021 Last Documented On 1 7:15PM ; [facility] Undifferentiated schizophren ia per patient reported history Established Patient with Hannah Short LISWS 04/03/2021 Last Documented On 1 7:15PM ; [facility] A home test was negative Medic al Established Patient with Traci Dennison [employer] 04/03/2021 Last Documented On 1 8:11PM ; [facility] Assessment of body mass index Medical Es tablished Patient with Traci Dennison [employer] 04/03/2021 Last Documented On 1 8:11PM ; [facility] Epilepsy, not intractable, w ithout status epilepticus Medical Established Patient with Traci Dennison [employer] 04/03/2021 Last Documented On 1 8:11PM ; [facility] Mixed affective bipolar diso rder, moderate Medical Established Patient with Traci Dennison [employer] 04/03/2021 Last Documented On 1 8:11PM ; [facility] Urinary tract infection Medical Establis hed Patient with Traci Dennison [facility] 04/03/2021 Last Documented On 1 8:11PM ; [facility] Visit for: screening for STD Medical Est ablished Patient with Traci Dennison [facility] 04/03/2021 Last Documented On 1 8:11PM ; [facility] Assessment of visit for: scr eening for human immunodeficiency virus Medical Established Patient with Peggy Thrasher [facility] 02/14/2021 Last Documented On 1 1:16PM ; [facility] Diabetes Risk Test Score was three score 02/14/2021 Medical Established Patient with Peggy Thrasher [facility] 02/14/2021 Last Documented On 1 1:16PM ; [facility] Diarrhea Medical Established Patient with Peggy Thrasher [employer] 02/14/2021 Last Documented On 1 1:16PM ; [facility] Nicotine dependence Medical Established Patient with Peggy Thrasher [facility] 02/14/2021 Last Documented On 1 1:16PM ; [facility] Z68.28 - Body mass index [BM I] 28.0-28.9, adult Medical Established Patient with Peggy Thrasher [employer] 02/14/2021 Last Documented On 1 1:16PM ; [facility] Cough Telemedicine Establisted Patient with Traci Dennison [employer] 01/01/2021 Last Documented On 1 6:31PM ; [facility] Fever Telemedicine Establisted Patient with Traci Dennison [employer] 01/01/2021 Last Documented On 1 6:31PM ; [facility] Z20.822 - Contact with and (suspected) exposure to COVID-19 Telemedicine Establisted Patient with Traci Dennison [employer] 01/01/2021 Last Documented On 1 6:31PM ; [facility] Bipolar I disorder, most rec ent episode, depressed Established Patient with Farrah Jarrett [facility] 06/03/2020 Last Documented On 1 10:50PM ; [facility] Paranoid schizophrenia per p atient report Established Patient with [facility] 06/03/2020 Last Documented On 1 10:50PM ; [facility] Post-traumatic stress disord er per patient report Established Patient with Farrah Jarrett [facility] 06/03/2020 Last Documented On 1 10:50PM ; [facility] 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 Patient with Traci Dennison [employer] 06/03/2020 Last Documented On 1 8:25AM ; [facility] Overweight Medical Established Patient with Traci Dennison [employer] 06/03/2020 Last Documented On 1 8:25AM ; [facility] Z68.29 - Body mass index [BM I] 29.0-29.9, adult Medical Established Patient with Traci Dennison [employer] 06/03/2020 Last Documented On 1 8:25AM ; [facility] Anxiety disorder NOS Medical Established Patient with Traci Dennison [employer] 01/26/2020 Last Documented On 0 7:37PM ; [facility] Bipolar disorder NOS Medical Established Patient with Traci Dennison [employer]IC 01/26/2020 Last Documented On 0 7:37PM ; [facility] Infection of tooth Medical Established Patient w ith Traci Dennison BLOCK MECHANIC 01/26/2020 Last Documented On 0 7:37PM ; [facility] Z68.20 - Body mass index [BM I] 20.0-20.9, adult Medical Established Patient with Traci Dennison [employer] 01/26/2020 Last Documented On 0 7:37PM ; [facility] Bipolar I disorder, most rec ent episode, mixed Established Patient with Hannah ROY 01/08/2020 Last Documented On 0 11:49AM ; [facility] Generalized anxiety disorder BH Establis hed Patient with Hannah Short LISWS 01/08/2020 Last Documented On 0 11:49AM ; [facility] Diabetes Risk Test Score was one score 01/08/2020 Medical Established Patient with Peggy Anna Marie [employer] 01/08/2020 Last Documented On 0 1:42PM ; [facility] Overweight Medical Established Patient with Peggy Anna Marie [employer] 01/08/2020 Last Documented On 0 1:42PM ; [facility] Z68.27 - Body mass index (BM I) 27.0-27.9, adult Medical Established Patient with Peggy Anna Marie [employer]IC 01/08/2020 Last Documented On 0 1:42PM ; [facility] Bipolar I disorder, most rec ent episode, mixed Established Patient with Hannah Short LISWS 12/25/2019 Last Documented On 0 6:16PM ; [facility] Generalized anxiety disorder BH Establis hed Patient with Hannah Short LISWS 12/25/2019 Last Documented On 0 6:16PM ; [facility] Overweight Medical Established Patient with Peggy Anna Marie [employer] 12/25/2019 Last Documented On 0 1:54PM ; [facility] Z68.26 - Body mass index (BM I) 26.0-26.9, adult Medical Established Patient with Peggy Anna Marie BLOCK [employer]CH[employer]IC 12/25/2019 Last Documented On 0 1:54PM ; [facility] Work Phone: Evaluation note Includes: Assessments for all patient encounters Findings Encounter Date Anxiety disorder NOS Established Patient with Hannah Short LISWS 03/08/2023 Last Documented On 3 11:58AM ; [facility] Bipolar schizoaffective disorder BH Esta blished Patient with Hannah Short LISWS 03/08/2023 Last Documented On 3 11:58AM ; [facility] Nicotine dependence continuous BH Establ ished Patient with Hannah Short LISWS 03/08/2023 Last Documented On 3 11:58AM ; [facility] [Body mass index [BMI] 33.0- 33.9, adult] assessment of body mass index Medical Established Patient with Srinivasa Ed BLOCK [employer]CHANIC 03/08/2023 Last Documented On 3 12:06PM ; [facility] Chronic gastritis without hemorrhage Med ical Established Patient with Srinivasa Ed [employer]IC 03/08/2023 Last Documented On 3 12:06PM ; [facility] Encounter for Immunization Medical Estab lished Patient with Srinivasa Ed BLOCK [employer]IC 03/08/2023 Last Documented On 3 12:06PM ; [facility] Nicotine dependence continuous Medical E stablished Patient with Srinivasa Ed BLOCK [employer]CHANIC 03/08/2023 Last Documented On 3 12:06PM ; [facility] Uncomplicated mild persistent asthma Med ical Established Patient with Srinivasa Ed BLOCK MECHANIC 03/08/2023 Last Documented On 3 12:06PM ; [facility] Anxiety disorder NOS BH Established Patient with Lea Stone [employer]-S 02/19/2023 Last Documented On 3 4:27PM ; [facility] Bipolar schizoaffective disorder BH Esta blished Patient with Lea Stone [employer]-S 02/19/2023 Last Documented On 3 4:27PM ; [facility] Nicotine dependence BH Established Patient with Lea Stone [employer]-S 02/19/2023 Last Documented On 3 4:27PM ; [facility] Assessment of body mass index Open Acces s - Established with Srinivasa Ed BLOCK MECHANIC 02/19/2023 Last Documented On 3 9:22PM ; [facility] [Body mass index [BMI] 33.0- 33.9, adult] assessment of body mass index Medical Established Patient with Srinivasa Ed BLOCK MECHANIC 02/05/2023 Last Documented On 3 3:48PM ; [facility] Anxiety disorder NOS Medical Established Patient with Srinivasa Ed BLOCK MECHANIC 02/05/2023 Last Documented On 3 3:48PM ; [facility] Body mass index Medical Established Patient with Srinivasa Ed BLOCK MECHANIC 01/28/2023 Last Documented On 3 8:31PM ; [facility] [Body mass index [BMI] 32.0- 32.9, adult] assessment of body mass index Medical Established Patient with Srinivasa Ed BLOCK MECHANIC 12/31/2022 Last Documented On 3 5:25AM ; [facility] Uncomplicated mild persistent asthma Med ical Established Patient with Srinivasa Ed BLOCK MECHANIC 12/31/2022 Last Documented On 3 5:25AM ; [facility] [Body mass index [BMI] 33.0- 33.9, adult] assessment of body mass index Medical Established Patient with Srinivasa Ed BLOCK MECHANIC 11/30/2022 Last Documented On 3 12:28PM ; [facility] Anxiety disorder NOS Medical Established Patient with Srinivasa Ed BLOCK MECHANIC 11/30/2022 Last Documented On 3 12:28PM ; [facility] Diabetes Risk Test Score was four score 11/30/2022 Medical Established Patient with Srinivasa Ed BLOCK MECHANIC 11/30/2022 Last Documented On 3 12:28PM ; [facility] Uncomplicated mild persistent asthma Med ical Established Patient with Srinivasa Ed BLOCK MECHANIC 11/30/2022 Last Documented On 3 12:28PM ; [facility] Visit for: routine adult H&P with abnormal findings Medical Established Patient with Srinivasa Ed BLOCK MECHANIC 11/30/2022 Last Documented On 3 12:28PM ; [facility] [Body mass index [BMI] 30.0- 30.9, adult] assessment of body mass index Medical Established Patient with Srinivasa Ed BLOCK MECHANIC 01/22/2022 Last Documented On 2 6:17PM ; [facility] Dysuria Medical Established Patient with Srinivasa Ed BLOCK MECHANIC 01/22/2022 Last Documented On 2 6:17PM ; [facility] Bipolar schizoaffective disorder BH Esta blished Patient with Bharat Díaz [facility] 12/11/2021 Last Documented On 2 2:31PM ; [facility] Assessment of body mass inde x [Body mass index [BMI] 26.0-26.9, adult] Medical Established Patient with Srinivasa Ed BLOCK MECHANIC 12/11/2021 Last Documented On 2 12:34PM ; [facility] Bipolar schizoaffective disorder BH Esta blished Patient with Bharat Díaz [facility] 11/25/2021 Last Documented On 2 1:25PM ; [facility] Anxiety disorder NOS Medical Established Patient with Traci Juma [employer]CHANIC 11/25/2021 Last Documented On 2 3:06PM ; [facility] Urinary tract infection Medical Establis hed Patient with Traci Juma BLOCK MECHANIC 11/25/2021 Last Documented On 2 3:06PM ; [facility] Z68.27 - Body mass index [BM I] 27.0-27.9, adult Medical Established Patient with Traci Juma [employer]CH[employer]IC 11/25/2021 Last Documented On 2 3:06PM ; [facility] Anxiety disorder NOS Medical Established Patient with Traci Juma BLOCK [employer]CHANIC 08/13/2021 Last Documented On 2 8:18AM ; [facility] Assessment of body mass index Medical Es tablished Patient with Traci Juma BLOCK MECHANIC 08/13/2021 Last Documented On 2 8:18AM ; [facility] Chronic gastritis without hemorrhage Med ical Established Patient with Traci Juma BLOCK MECHANIC 08/13/2021 Last Documented On 2 8:18AM ; [facility] Diverticulosis of intestine Medical Esta blished Patient with Traci Juma BLOCK MECHANIC 08/13/2021 Last Documented On 2 8:18AM ; [facility] Urinary tract infection Medical Establis hed Patient with Traci Juma BLOCK MECHANIC 08/13/2021 Last Documented On 2 8:18AM ; [facility] Anxiety disorder NOS Medical Established Patient with Traci Juma [employer] MECHANIC 07/17/2021 Last Documented On 2 8:10AM ; [facility] Other hypothyroidism Medical Established Patient with Traci Juma BLOCK MECHANIC 07/17/2021 Last Documented On 2 8:10AM ; [facility] Upper respiratory infection Medical Esta blished Patient with Traci Juma BLOCK MECHANIC 07/17/2021 Last Documented On 2 8:10AM ; [facility] Visit for: routine adult H&P with abnormal findings Medical Established Patient with Traci Dennison BLOCK MECHANIC 07/17/2021 Last Documented On 2 8:10AM ; [facility] Visit for: screening for lip oid disorders Medical Established Patient with Traci Dennison [employer]CH[employer]IC 07/17/2021 Last Documented On 2 8:10AM ; [facility] Vitamin B12 deficiency Medical Establish ed Patient with Traci Dennison BLOCK [employer]CHANIC 07/17/2021 Last Documented On 2 8:10AM ; [facility] Vitamin D deficiency Medical Established Patient with Traci Dennison BLOCK MECHANIC 07/17/2021 Last Documented On 2 8:10AM ; [facility] Z68.28 - Body mass index [BM I] 28.0-28.9, adult Medical Established Patient with Traci Dennison [employer]CHANIC 07/17/2021 Last Documented On 2 8:10AM ; [facility] Allergic rhinitis Telemedicine Establi sted Patient with Traci Dennison BLOCK [employer]CHANIC 07/16/2021 Last Documented On 2 8:23AM ; [facility] Exposure to COVID-19 Telemedicine Establ isted Patient with Traci Dennison BLOCK MECHANIC 04/29/2021 Last Documented On 2 8:02PM ; [facility] Bipolar schizoaffective disorder BH Esta blished Patient with Farrah Jarrett [facility] 04/15/2021 Last Documented On 2 1:07PM ; [facility] Anxiety disorder NOS Medical Established Patient with Traci Dennison [employer]ANIC 04/15/2021 Last Documented On 2 9:06AM ; [facility] Assessment of body mass index Medical Es tablished Patient with Traci Dennison BLOCK MECHANIC 04/15/2021 Last Documented On 2 9:06AM ; [facility] Bipolar disorder NOS Medical Established Patient with Traci Dennison [employer] MECHANIC 04/15/2021 Last Documented On 2 9:06AM ; [facility] Anxiety disorder NOS BH Telebehavioral H ealth with Farrah Jarrett [facility] 04/09/2021 Last Documented On 2 9:05AM ; [facility] Bipolar disorder NOS Telebehavioral H ealth with Farrah Jarrett [facility] 04/09/2021 Last Documented On 2 9:05AM ; [facility] Anxiety disorder NOS Established Patient with Hannah Short LISWS 04/03/2021 Last Documented On 1 7:15PM ; [facility] Bipolar I disorder, most rec ent episode, depressed Established Patient with Hannah Short LISWS 04/03/2021 Last Documented On 1 7:15PM ; [facility] Nicotine dependence Established Patient with Hannah Short LISWS 04/03/2021 Last Documented On 1 7:15PM ; [facility] Nicotine dependence Established Patient with Hannah Short LISWS 04/03/2021 Last Documented On 1 7:15PM ; [facility] Undifferentiated schizophren ia per patient reported history Established Patient with Hannah Short LISWS 04/03/2021 Last Documented On 1 7:15PM ; [facility] A home test was negative Medic al Established Patient with Traci Dennison BLOCK MECHANIC 04/03/2021 Last Documented On 1 8:11PM ; [facility] Assessment of body mass index Medical Es tablished Patient with Traci Dennison BLOCK MECHANIC 04/03/2021 Last Documented On 1 8:11PM ; [facility] Epilepsy, not intractable, w ithout status epilepticus Medical Established Patient with Traci Dennison BLOCK MECHANIC 04/03/2021 Last Documented On 1 8:11PM ; [facility] Mixed affective bipolar diso rder, moderate Medical Established Patient with Traci Dennison BLOCK MECHANIC 04/03/2021 Last Documented On 1 8:11PM ; [facility] Urinary tract infection Medical Establis hed Patient with Traci Juma BLOCK MECHANIC 04/03/2021 Last Documented On 1 8:11PM ; [facility] Visit for: screening for STD Medical Est ablished Patient with Traci Juma BLOCK MECHANIC 04/03/2021 Last Documented On 1 8:11PM ; [facility] Assessment of visit for: lupe starr for human immunodeficiency virus Medical Established Patient with Peggy Thrasher BLOCK MECHANIC 02/14/2021 Last Documented On 1 1:16PM ; [facility] Diabetes Risk Test Score was three score 02/14/2021 Medical Established Patient with Peggy Thrasher BLOCK MECHANIC 02/14/2021 Last Documented On 1 1:16PM ; [facility] Diarrhea Medical Established Patient with Peggy Thrasher [facility] 02/14/2021 Last Documented On 1 1:16PM ; [facility] Nicotine dependence Medical Established Patient with Peggy Thrasher [facility] 02/14/2021 Last Documented On 1 1:16PM ; [facility] Z68.28 - Body mass index [BM I] 28.0-28.9, adult Medical Established Patient with Peggy Thrasher [facility] 02/14/2021 Last Documented On 1 1:16PM ; [facility] Cough Telemedicine Establisted Patient with Traci Dennison [facility] 01/01/2021 Last Documented On 1 6:31PM ; [facility] Fever Telemedicine Establisted Patient with Traci Dennison [facility] 01/01/2021 Last Documented On 1 6:31PM ; [facility] Z20.822 - Contact with and (suspected) exposure to COVID-19 Telemedicine Establisted Patient with Traci Dennison [facility] 01/01/2021 Last Documented On 1 6:31PM ; [facility] Bipolar I disorder, most rec ent episode, depressed Established Patient with Farrah Hernandezs [facility] 06/03/2020 Last Documented On 1 10:50PM ; [facility] Paranoid schizophrenia per p atient report Established Patient with Farrah Hernandezs [facility] 06/03/2020 Last Documented On 1 10:50PM ; [facility] Post-traumatic stress disord er per patient report Established Patient with Farrah Hernandezs [facility] 06/03/2020 Last Documented On 1 10:50PM ; [facility] 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 Patient with Traci Dennison BLOCK MECHANIC 06/03/2020 Last Documented On 1 8:25AM ; [facility] Overweight Medical Established Patient with Traci Dennison BLOCK MECHANIC 06/03/2020 Last Documented On 1 8:25AM ; [facility] Z68.29 - Body mass index [BM I] 29.0-29.9, adult Medical Established Patient with Traci Dennison BLOCK MECHANIC 06/03/2020 Last Documented On 1 8:25AM ; [facility] Anxiety disorder NOS Medical Established Patient with Traci Dennison BLOCK MECHANIC 01/26/2020 Last Documented On 0 7:37PM ; [facility] Bipolar disorder NOS Medical Established Patient with Traci Dennison BLOCK MECHANIC 01/26/2020 Last Documented On 0 7:37PM ; [facility] Infection of tooth Medical Established Patient w ith Traci Dennison [facility] 01/26/2020 Last Documented On 0 7:37PM ; [facility] Z68.20 - Body mass index [BM I] 20.0-20.9, adult Medical Established Patient with Traci Dennison BLOCK MECHANIC 01/26/2020 Last Documented On 0 7:37PM ; [facility] Bipolar I disorder, most rec ent episode, mixed Established Patient with Hannah Short LISWS 01/08/2020 Last Documented On 0 11:49AM ; [facility] Generalized anxiety disorder Establis hed Patient with Hannah Short LISWS 01/08/2020 Last Documented On 0 11:49AM ; [facility] Diabetes Risk Test Score was one score 01/08/2020 Medical Established Patient with Peggy Thrasher BLOCK MECHANIC 01/08/2020 Last Documented On 0 1:42PM ; [facility] Overweight Medical Established Patient with Peggy Anna Marie [facility] 01/08/2020 Last Documented On 0 1:42PM ; [facility] Z68.27 - Body mass index (BM I) 27.0-27.9, adult Medical Established Patient with Peggy Anna Marie BLOCK MECHANIC 01/08/2020 Last Documented On 0 1:42PM ; [facility] Bipolar I disorder, most rec ent episode, mixed Established Patient with Hannah Short LISWS 12/25/2019 Last Documented On 0 6:16PM ; [facility] Generalized anxiety disorder Establis hed Patient with Hannah Short LISWS 12/25/2019 Last Documented On 0 6:16PM ; [facility] Overweight Medical Established Patient with Peggy Thrasher BLOCK MECHANIC 12/25/2019 Last Documented On 0 1:54PM ; [facility] Z68.26 - Body mass index (BM I) 26.0-26.9, adult Medical Established Patient with Peggy Thrasher BLOCK MECHANIC 12/25/2019 Last Documented On 0 1:54PM ; [facility] Work Phone: Evaluation note* 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 documented in this [facility] Work Phone: Evaluation note* Diagnosis BMI 34.0-34.9,adult Bipolar affective disorder, current episode mixed, current episode severity unspecified (CMS/HCC) Convulsions, unspecified convulsion type (CMS/HCC) Gastroesophageal reflux disease, unspecified whether esophagitis present Bipolar 1 disorder (CMS/HCC) Anxiety and depression (CMS/HCC) Environmental and seasonal allergies Chronic right shoulder pain Pain in joint, shoulder region 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 Bipolar 1 disorder (CMS/HCC)- Primary Anxiety and depression (CMS/HCC) Seizures (CMS/HCC) Other convulsions Chronic right shoulder pain Pain in joint, shoulder region BMI 34.0-34.9,adult Acute non-recurrent maxillary sinusitis- Primary Smoker Tobacco use disorder Obesity (BMI 30-39.9) Bronchitis- Primary Bronchitis, not specified as acute or chronic Obesity (BMI 30-39.9) Smoker Tobacco use disorder Sprain of right ankle, unspecified ligament, subsequent encounter- Primary Bipolar 1 disorder (CMS/HCC) Seizures (CMS/HCC) Other convulsions Smoker Tobacco use disorder Environmental and seasonal allergies 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 [facility] Diagnosis BMI 34.0-34.9,adult Bipolar affective disorder, current episode mixed, current episode severity unspecified (CMS/HCC) Convulsions, unspecified convulsion type (CMS/HCC) Gastroesophageal reflux disease, unspecified whether esophagitis present Bipolar 1 disorder (CMS/HCC) Anxiety and depression (CMS/HCC) Environmental and seasonal allergies Chronic right shoulder pain Pain in joint, shoulder region 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 Bipolar 1 disorder (CMS/HCC)- Primary Anxiety and depression (CMS/HCC) Seizures (CMS/HCC) Other convulsions Chronic right shoulder pain Pain in joint, shoulder region BMI 34.0-34.9,adult Sprain of right ankle, unspecified ligament, subsequent encounter- Primary Bipolar 1 disorder (CMS/HCC) Seizures (CMS/HCC) Other convulsions Smoker Tobacco use disorder Environmental and seasonal allergies Anxiety and depression (CMS/HCC)- Primary Fatty liver disease, nonalcoholic Obesity (BMI 30-39.9) Smoker Tobacco use disorder URI, acute Acute upper respiratory infections of unspecified site Bipolar 1 disorder ([facility]/HCC) documented in this encounter [facility] - Reported Includes: Medical History in patient's chart Description Last Updated Not planning to have a baby in the next 12 months 11/30/2022 Last Documented On 3 12:28PM ; [facility] History of anxiety disorder NOS 07/18/19 22 Last Documented On 2 8:10AM ; [facility] No previous hospitalizations 04/03/2021 Last Documented On 1 8:11PM ; [facility] History of complete colonoscopy 04/03/20 21 Last Documented On 1 8:11PM ; [facility] Epilepsy 12/25/2019 Last Documented On 0 1:54PM ; [facility] 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 Last Documented On 0 1:54PM ; [facility] Ovarian cyst 12/25/2019 Last Documented On 0 1:54PM ; [facility] Post-traumatic stress disorder 0 Last Documented On 0 1:54PM ; [facility] History of asthma 12/25/2019 Last Documented On 0 1:54PM ; [facility] History of schizophrenia 12/25/2019 Last Documented On 0 1:54PM ; [facility] History of bipolar disorder NOS 12/25/19 20 Last Documented On 0 1:54PM ; [facility] History of depression 12/25/2019 Last Documented On 0 1:54PM ; [facility] History of psychiatric disorders 020 Last Documented On 0 1:54PM ; [facility] Work Phone: History of Present illness Narrative History of Present Illness not supported for this document type No [facility] of [facility] Discharge instructions* Attachments The following attachments cannot be sent through Care Everywhere. * Abdominal Pain (Vietnamese) documented in this [facility] Phone: Hospital Discharge instructions* Attachments The following attachments cannot be sent through Care Everywhere. * Serous Otitis Media (Vietnamese) * Ear: Anatomy Sketch (Vietnamese) * Otitis Externa (Vietnamese) documented in this [facility] Phone: Hospital Discharge instructions* Instructions* Anne Marie Montez PA-C - 11/16/2020 Call to arrange follow-up with orthopedic for further evaluation of continued symptoms. * Attachments The following attachments cannot be sent through Care Everywhere. * Wrist Sprain (Vietnamese) documented in this [facility] Phone: Hospital Discharge instructions* Attachments The following attachments cannot be sent through Care Everywhere. * Coronavirus Disease (COVID-19): General Info (Vietnamese) documented in this [facility] Phone: Hospital Discharge instructions* Attachments The following attachments cannot be sent through Care Everywhere. * Abdominal Pain (Vietnamese) documented in this [facility] Phone: Hospital Discharge instructions* Instructions* Braydon Sierra [...] sent through Care Everywhere. * Abdominal Pain (Vietnamese) documented in this [facility] Work Phone: Instructions Instructions not supported for this document type No [facility]ructions [facility]: Patient problem outcome Narrative Includes: Evaluations & Outcomes for active Goals No Outcomes [facility] Work Phone: Reason for referral (narrative)No Reason for Referral [facility] Work Phone: Review of systems Narrative - Reported Review of Systems not supported for this document type No Review of Systems [facility] Work Phone: Summary Purpose Family [...] 200907/17/2021 Last Documented On 2 8:10AM ; [facility] Mother is alive 07/17/2021 Maternal history of asthma 12/25/2019 Last Documented On 0 1:54PM ; [facility] Maternal history of cardiovascular disor russell 12/25/2019 Maternal history of oncologic disorder O verain 12/25/2019 Description Last Updated Father 200907/17/2021 Last Documented On 2 8:10AM ; [facility] Mother is alive 07/17/2021 Maternal history of asthma 12/25/2019 Last Documented On 0 1:54PM ; [facility] Maternal history of cardiovascular disor russell 12/25/2019 Maternal history of oncologic disorder O verain 12/25/2019 Description Last Updated Father 200907/17/2021 Last Documented On 2 8:10AM ; [facility] Mother is alive 07/17/2021 Maternal history of asthma 12/25/2019 Last Documented On 0 1:54PM ; [facility] Maternal history of cardiovascular disor russell 12/25/2019 Maternal history of oncologic disorder O verain 12/25/2019 Description Last Updated Father 200907/17/2021 Last Documented On 2 8:10AM ; [facility] Mother is alive 07/17/2021 Maternal history of asthma 12/25/2019 Last Documented On 0 1:54PM ; [facility] Maternal history of cardiovascular disor russell 12/25/2019 Maternal history of oncologic disorder O verain 12/25/2019 Description Last Updated Father 200907/17/2021 Last Documented On 2 8:10AM ; [facility] Mother is alive 07/17/2021 Maternal history of asthma 12/25/2019 Last Documented On 0 1:54PM ; [facility] Maternal history of cardiovascular disor russell 12/25/2019 Maternal history of oncologic disorder O verain 12/25/2019 Description Last Updated Father 200907/17/2021 Last Documented On 2 8:10AM ; [facility] Mother is alive 07/17/2021 Maternal history of asthma 12/25/2019 Last Documented On 0 1:54PM ; [facility] Maternal history of cardiovascular disor russell 12/25/2019 Maternal history of oncologic disorder O verain 12/25/2019 Description Last Updated Father 200907/17/2021 Last Documented On 2 8:10AM ; [facility] Mother is alive 07/17/2021 Maternal history of asthma 12/25/2019 Last Documented On 0 1:54PM ; [facility] Maternal history of cardiovascular disor russell 12/25/2019 Maternal history of oncologic disorder O verain 12/25/2019 Description Last Updated Father 200907/17/2021 Last Documented On 2 8:10AM ; [facility] Mother is alive 07/17/2021 Maternal history of asthma 12/25/2019 Last Documented On 0 1:54PM ; [facility] Maternal history of cardiovascular disor russell 12/25/2019 Maternal history of oncologic disorder O verain 12/25/2019 Description Last Updated Father 200907/17/2021 Last Documented On 2 8:10AM ; [facility] Mother is alive 07/17/2021 Maternal history of asthma 12/25/2019 Last Documented On 0 1:54PM ; [facility] Maternal history of cardiovascular disor russell 12/25/2019 Maternal history of oncologic disorder O verain 12/25/2019 Advance Directives No Advanced Directives Records FoundDocuments on File Type Date Recorded 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 Advance Directive Response Recorded Date/ Time Advance Directives No October 28 12:45pm Discharge Instructions * Attachments The following attachments cannot be sent through Care Everywhere. * Abdominal Pain (Vietnamese) documented in this encounter* Attachments The following attachments cannot be sent through Care Everywhere. * Abdominal Pain (Vietnamese) documented in this encounter* Attachments The following attachments cannot be sent through Care Everywhere. * Back: Strain (Vietnamese) documented in this encounter* Instructions* Regino Aguilar [...] be sent through Care Everywhere. * Cellulitis (Vietnamese) documented in this encounter* Attachments The following attachments cannot be sent through Care Everywhere. * Drug Use: Marijuana (Vietnamese) * Chest Pain (Vietnamese) * Seizure (Vietnamese) documented in this encounter* Instructions* Regino Aguilar [...] Care Everywhere. * URI (Upper Respiratory Infection) (Vietnamese) documented in this encounter* Instructions* David Fish APRN - BLOCK MECHANIC - 06/01/2020 Return to the emergency department for worsening symptoms. When you have a stool sample bring it back to the lab for evaluation. Take Zofran as directed. * Attachments The following attachments cannot be sent through Care Everywhere. * Abdominal Pain (Vietnamese) documented in this encounter* Instructions* Katlin Reaves MD - 06/18/2020 Take Zofran as needed nausea or vomiting. Continue current medications as prescribed. Follow-up with gastroenterology as scheduled. Return immediately for any worsening symptoms or any acute concerns * Attachments The following attachments cannot be sent through Care Everywhere. * Abdominal Pain (Vietnamese) documented in this encounter Assessments Diagnosis Left lower quadrant abdominal pain Abdominal pain, unspecified abdominal location Hydrosalpinx Chronic salpingitis and oophoritis Diagnosis Non-surgical abdominal pain Abdominal pain, unspecified site Diagnosis Strain of lumbar region, initial encounter Findings Encounter Date Overweight Medical Established Patient with Peggy Thrasher [facility] 12/25/2019 Z68.26 - Body mass index (BM I) 26.0-26.9, adult Medical Established Patient with Peggy Thrasher [facility] 12/25/2019 Findings Encounter Date Bipolar I disorder, most rec ent episode, mixed Established Patient with Hannah Short [facility] 12/25/2019 Generalized anxiety disorder Establis hed Patient with Hannah Short [facility] 12/25/2019 Overweight Medical Established Patient with Peggy Thrasher [facility] 12/25/2019 Z68.26 - Body mass index (BM I) 26.0-26.9, adult Medical Established Patient with Peggy Thrasher [facility] 12/25/2019 Diagnosis Cellulitis of right foot Cellulitis and abscess of foot, except toes Findings Encounter Date Bipolar I disorder, most rec ent episode, mixed Established Patient with Hannah Short [facility] 01/08/2020 Generalized anxiety disorder Establis hed Patient with Hannah Short [facility] 01/08/2020 Diabetes Risk Test Score was one score 01/08/2020 Medical Established Patient with Peggy Anna Marie [facility] 01/08/2020 Overweight Medical Established Patient with Peggy Anna Marie [facility] 01/08/2020 Z68.27 - Body mass index (BM I) 27.0-27.9, adult Medical Established Patient with Peggy Anna Marie [facility] 01/08/2020 Bipolar I disorder, most rec ent episode, mixed Established Patient with Hannah Short [facility] 12/25/2019 Generalized anxiety disorder Establis hed Patient with Hannah Short [facility] 12/25/2019 Overweight Medical Established Patient with Peggy Anna Marie [facility] 12/25/2019 Z68.26 - Body mass index (BM I) 26.0-26.9, adult Medical Established Patient with Peggy Anna Marie [facility] 12/25/2019 Findings Encounter Date Anxiety disorder NOS Medical Established Patient with Traci Dennison [facility] 01/26/2020 Bipolar disorder NOS Medical Established Patient with Traci Dennison [facility] 01/26/2020 Infection of tooth Medical Established Patient with Traci Juma [facility] 01/26/2020 Z68.20 - Body mass index [BM I] 20.0-20.9, adult Medical Established Patient with Traci Juma [facility] 01/26/2020 Bipolar I disorder, most rec ent episode, mixed Established Patient with Hannah Short [facility] 01/08/2020 Generalized anxiety disorder Establis hed Patient with Hannah Short [facility] 01/08/2020 Diabetes Risk Test Score was one score 01/08/2020 Medical Established Patient with Peggy Leoen [facility] 01/08/2020 Overweight Medical Established Patient with Peggy Anna Marie [facility] 01/08/2020 Z68.27 - Body mass index (BM I) 27.0-27.9, adult Medical Established Patient with Peggy Anna Marie [facility] 01/08/2020 Bipolar I disorder, most rec ent episode, mixed Established Patient with Hannah Short [facility] 12/25/2019 Generalized anxiety disorder Establis hed Patient with Hannah Short [facility] 12/25/2019 Overweight Medical Established Patient with Peggy Anna Marie [facility] 12/25/2019 Z68.26 - Body mass index (BM I) 26.0-26.9, adult Medical Established Patient with Peggy Anna Marie [facility] 12/25/2019 Diagnosis Viral gastroenteritis Intestinal infection due [...] episode, depressed Established Patient with Farrah Klinemons [facility] 06/03/2020 Paranoid schizophrenia per p atient report Established Patient with Farrah Klinemons [facility] 06/03/2020 Post-traumatic stress disord er per patient report Established Patient with Farrah Klinemons [facility] 06/03/2020 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 Patient with Traci Dennison [facility] 06/03/2020 Overweight Medical Established Patient with Traci Dennison [facility] 06/03/2020 Z68.29 - Body mass index [BM I] 29.0-29.9, adult Medical Established Patient with Tracizachery Dennison [facility] 06/03/2020 Anxiety disorder NOS Medical Established Patient with Traci Dennison [facility] 01/26/2020 Bipolar disorder NOS Medical Established Patient with Traci Juma [facility] 01/26/2020 Infection of tooth Medical Established Patient with Tracizachery Dennison [facility] 01/26/2020 Z68.20 - Body mass index [BM I] 20.0-20.9, adult Medical Established Patient with Traci Dennison [facility] 01/26/2020 Bipolar I disorder, most rec ent episode, mixed Established Patient with Hannah Short [facility] 01/08/2020 Generalized anxiety disorder Establi hed Patient with Hannah Short [facility] 01/08/2020 Diabetes Risk Test Score was one score 01/08/2020 Medical Established Patient with Peggy Anna Marie [facility] 01/08/2020 Overweight Medical Established Patient with Peggy Anna Marie [facility] 01/08/2020 Z68.27 - Body mass index (BM I) 27.0-27.9, adult Medical Established Patient with Peggy Anna Marie [facility] 01/08/2020 Bipolar I disorder, most rec ent episode, mixed Established Patient with Hannah Short [facility] 12/25/2019 Generalized anxiety disorder Establis hed Patient with Hannah Short [facility] 12/25/2019 Overweight Medical Established Patient with Peggy Thrasher [facility] 12/25/2019 Z68.26 - Body mass index (BM I) 26.0-26.9, adult Medical Established Patient with Peggy Thrasher [facility] 12/25/2019 Diagnosis Chronic abdominal pain- Primary Abdominal pain, unspecified site Findings Encounter Date Diabetes Risk Test Score was one score 01/08/2020 Medical Established Patient with Peggy Thrasher [facility] 01/08/2020 Overweight Medical Established Patient with Peggy Thrasher [facility] 01/08/2020 Z68.27 - Body mass index (BM I) 27.0-27.9, adult Medical Established Patient with Peggy Thrasher [facility] 01/08/2020 Bipolar I disorder, most rec ent episode, mixed BH Established Patient with Hannah Short [facility] 12/25/2019 Generalized anxiety disorder BH Establis hed Patient with Hannah Short [facility] 12/25/2019 Overweight Medical Established Patient with Peggy Thrasher [facility] 12/25/2019 Z68.26 - Body mass index (BM I) 26.0-26.9, adult Medical Established Patient with Peggy Thrasher [facility] 12/25/2019 Reason for Referral Specialty Diagnoses / Procedures Referred By Contac t Referred To Contact Radiology Diagnoses Diarrhea, unspecified type Procedures NM GASTRIC EMPTYING Mirza Amanda, 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 - BLOCK MECHANIC [address] [place] [address] Referral ID Status Reason Start Date Expiration Date Visits Re quested Visits Authorized [id number] Closed 12/05/2021 12/05/2022 3 3 Specialty Diagnoses / Procedures Referred By Contac t Referred To Contact Diagnoses Palpitations Procedures Cardiac event monitor Srinivasa Jhaveri, 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 - SUPPORT REPRESENTATIVE [address] [place] [address] Referral ID Status Reason Start Date Expiration Date Visits Re quested Visits Authorized [id number] Closed 12/15/2021 12/15/2022 1 1 Specialty Diagnoses / Procedures Referred By Contac t Referred To Contact Diagnoses Darier's disease Estelita Winkler, PA [address] [address] Referral ID Status Reason Start Date Expiration Date V isits Requested Visits Authorized [id number] Pending Review 1 1 Instructions Instructions not [...] this document type No Physical Exam Recorded Chief Complaint and Reason for Visit Chief Complaint sent by doc Additional Source Comments INFORMATION SOURCE (unrecogn ized section and content) DATE CREATED AUTHOR 11/02/2019 [facility] DATE CREATED AUTHOR AUTHOR'S ORGANIZ ATION 09/18/2022 [facility] DATE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
[2024-02-14 07:16] LABS: Basophils Absolute Auto 0.1 10^3/uL (0.0-0.1); Basophils Percent Auto 0.8 % (0.2-2.0); Eosinophils Absolute Auto 0.2 10^3/uL (0.0-0.7); Eosinophils Percent Auto 2.5 % (0.9-7.0); Hematocrit 45.2 % (36.0-48.0); Hemoglobin 14.9 g/dL (12.0-16.0); Immature Granulocytes Abs Auto 0.01 10^3/uL (0.00-0.03); Immature Granulocytes Pct Auto 0.1 % (0.0-0.5); Lymphocytes Absolute Auto 1.9 10^3/uL (1.2-3.8); Mean Corpuscular Hemoglobin 30.6 pg (26.7-34.0); Mean Corpuscular Volume 92.8 fL (81.0-99.0); Mean Platelet Volume 9.5 fL (9.5-13.5); Monocytes Absolute Auto 0.6 10^3/uL (0.3-0.8); Monocytes Percent Auto 7.4 % (1.7-12.0); Neutrophils Absolute Auto 4.8 10^3/uL (1.4-6.5); Neutrophils Percent Auto 64.2 % (43.0-75.0); Platelet Count 300 10^3/uL (150-450); Red Blood Count 4.87 10^6/uL (4.20-5.40); White Blood Count 7.6 10^3/uL (4.0-11.0)
[2024-02-14 07:33] LABS: Bilirubin Urine NEGATIVE (NEGATIVE); Blood Urine NEGATIVE (NEGATIVE); Clarity Urine CLEAR (CLEAR); Color Urine YELLOW (YELLOW); Glucose Urine UA NEGATIVE (NEGATIVE); Ketones Urine NEGATIVE (NEGATIVE); Leukocyte Esterase Urine NEGATIVE (NEGATIVE); Nitrite Urine NEGATIVE (NEGATIVE); Protein Urine NEGATIVE (NEG/TRACE); Specific Gravity Urine 1.025 (1.005-1.025); Urobilinogen Urine 0.2 EU/dL (0.2-1.0)
[2024-02-14 07:39] LABS: Urine Microscopic Indicated NO
[2024-02-14 10:11] LABS: Alanine Aminotransferase 16 U/L (14-59); Albumin Globulin Ratio 1.1; Albumin Level 3.9 g/dL (3.4-5.0); Alkaline Phosphatase 62 U/L (46-116); Anion Gap 14.3; Aspartate Amino Transferase 9 U/L (15-37); BUN Creatinine Ratio 8.8; Bilirubin Total 0.4 mg/dL (0.2-1.0); Calcium 9.3 mg/dL (8.5-10.1); Carbon Dioxide 28.7 mmol/L (21.0-32.0); Chloride 103 mmol/L (98-107); Chol HDL Ratio 3.5; Cholesterol 149 mg/dL (<=200); Estimated GFR (African America >60 (>=60 mL/min/1.73m^2); Estimated GFR (Non-African Ame >60 (>=60 mL/min/1.73m^2); Globulin 3.6 g/dL; Glucose 80 mg/dL (74-106); HDL Cholesterol 43 mg/dL (40-60); LDL Cholesterol Calculated 87.6 mg/dL; Sodium 142 mmol/L (136-145); Thyroid Stimulating Hormone 0.905 uIU/mL (0.358-3.740); Total Protein 7.5 g/dL (6.4-8.2); Triglycerides 92 mg/dL (<=150); VLDL CHOLESTEROL 18.4 mg/dL
[2024-02-14 10:17] LABS: Free T4 0.84 ng/dL (0.76-1.46)
== END 2024-02-14 06:31 | disposition home or self-care (01) ==
LOC: LAB 06:32
PROVIDERS: PCP Nurse Practitioner; Visit Provider Nurse Practitioner
DX: K76.0 Fatty (change of) liver, not elsewhere classified (principal); F17.200 Nicotine dependence, unspecified, uncomplicated; E66.9 Obesity, unspecified
CPT/HCPCS: 36415; 80053; 80061; 81003; 84439; 84443; 85025

== ENCOUNTER 2024-04-24 15:00 | Outpatient (OUT) | payer OTHER, SELFPAY ==
[2024-04-24 15:56] LABS: Basophils Absolute Auto 0.1 10^3/uL (0.0-0.1); Basophils Percent Auto 0.7 % (0.2-2.0); Eosinophils Absolute Auto 0.1 10^3/uL (0.0-0.7); Eosinophils Percent Auto 1.1 % (0.9-7.0); Hematocrit 41.5 % (36.0-48.0); Hemoglobin 13.9 g/dL (12.0-16.0); Immature Granulocytes Abs Auto 0.03 10^3/uL (0.00-0.03); Immature Granulocytes Pct Auto 0.3 % (0.0-0.5); Lymphocytes Absolute Auto 1.9 10^3/uL (1.2-3.8); Lymphocytes Percent Auto 20.1 % (20.5-60.0); Mean Corpuscular HGB Conc 33.5 g/dL (29.9-35.2); Mean Corpuscular Hemoglobin 31.3 pg (26.7-34.0); Mean Corpuscular Volume 93.5 fL (81.0-99.0); Mean Platelet Volume 9.7 fL (9.5-13.5); Monocytes Absolute Auto 0.6 10^3/uL (0.3-0.8); Monocytes Percent Auto 6.3 % (1.7-12.0); Neutrophils Absolute Auto 6.7 10^3/uL (1.4-6.5); Neutrophils Percent Auto 71.5 % (43.0-75.0); Platelet Count 310 10^3/uL (150-450); Red Blood Count 4.44 10^6/uL (4.20-5.40); Red Cell Distribution Width 13.8 % (11.0-15.0); White Blood Count 9.4 10^3/uL (4.0-11.0)
[2024-04-24 15:57] LABS: Bilirubin Urine NEGATIVE (NEGATIVE); Blood Urine NEGATIVE (NEGATIVE); Clarity Urine CLEAR (CLEAR); Color Urine YELLOW (YELLOW); Glucose Urine UA NEGATIVE (NEGATIVE); Ketones Urine NEGATIVE (NEGATIVE); Leukocyte Esterase Urine NEGATIVE (NEGATIVE); Nitrite Urine NEGATIVE (NEGATIVE); Protein Urine NEGATIVE (NEG/TRACE); Specific Gravity Urine >=1.030 (1.005-1.025); Urobilinogen Urine 0.2 EU/dL (0.2-1.0)
[2024-04-24 16:13] LABS: Erythrocyte Sedimentation Rate 5 mm/hr (<=20)
[2024-04-24 16:23] LABS: Alanine Aminotransferase 26 U/L (14-59); Albumin Globulin Ratio 1.2; Albumin Level 3.7 g/dL (3.4-5.0); Alkaline Phosphatase 45 U/L (46-116); Anion Gap 11.2; Aspartate Amino Transferase 11 U/L (15-37); BUN Creatinine Ratio 8.1; Bilirubin Total 0.3 mg/dL (0.2-1.0); C Reactive Protein <0.50 mg/dL (<=0.50); Calcium 8.4 mg/dL (8.5-10.1); Carbon Dioxide 31.2 mmol/L (21.0-32.0); Chloride 107 mmol/L (98-107); Estimated GFR (African America >60 (>=60 mL/min/1.73m^2); Estimated GFR (Non-African Ame >60 (>=60 mL/min/1.73m^2); Free T3 2.52 pg/mL (2.18-3.98); Globulin 3.2 g/dL; Glucose 81 mg/dL (74-106); Potassium 3.4 mmol/L (3.5-5.1); Sodium 146 mmol/L (136-145); Thyroid Stimulating Hormone 1.207 uIU/mL (0.358-3.740); Total Protein 6.9 g/dL (6.4-8.2)
[2024-04-24 16:43] LABS: Free T4 0.86 ng/dL (0.76-1.46)
[2024-04-24 17:20] LABS: Bacteria Urine MODERATE #/HPF (NONE SEEN); Mucus Urine MODERATE (NONE SEEN); RBC Urine 0-2 #/HPF (0-2); Squamous Epithelial Cell Urine FEW #/LPF (NONE/RARE); WBC Urine 0-2 #/HPF (NONE SEEN)
[2024-04-24 17:21] LABS: Cast Seen? NONE SEEN #/LPF (NONE SEEN); Crystals Seen? None Seen #/HPF (None Seen); Urine Culture Indicated YES
[2024-04-26 12:08] LABS: Antinuclear Antibodies, IFA Negative (.)
== END 2024-04-24 15:01 | disposition home or self-care (01) ==
LOC: LAB 15:01
PROVIDERS: PCP Nurse Practitioner; Visit Provider Nurse Practitioner
DX: R19.7 Diarrhea, unspecified (principal); K21.9 Gastro-esophageal reflux disease without esophagitis; R63.4 Abnormal weight loss; F31.9 Bipolar disorder, unspecified
CPT/HCPCS: 36415; 80053; 81001; 84439; 84443; 84481; 85025; 85652; 86038; 86140; 87086

== ENCOUNTER 2024-06-14 08:51 | Emergency (ER) | payer OTHER, SELFPAY ==
[2024-06-14 08:57] VITALS: BP 140/81; PULSE 82; TEMP 36.9; O2SAT 100; BMI 29.7
--- NOTE | 2024-06-14 09:15 | ED.GENADUL1 ---
HPI HPI - General Adult General Chief complaint: Upper Respiratory Infection Stated complaint: urti complaints Time Seen by Provider: 06/14/24 08:54 Source: patient Mode of arrival: walk-in Limitations: no limitations History of Present Illness HPI narrative: Patient presents to ED complaining of left ear pain. Patient states that she has also had congestion and a cough and tightness in her chest. She also has a chronic rash that flares up worse when she is sick. She said usually steroids help her rash. She does see a casting and curing operator for this rash but has not been recently. Patient states they were going to put her on a medication for the chronic rash but her insurance would not cover it. She said multiple people in her household have been sick with similar symptoms but she was concerned because her ear was hurting so much. She said one of her family members tested negative for flu COVID and RSV. She has a home COVID test that she will try when she gets home. She states she has had a cough as well but nonproductive. She said she had hot and cold sweats last night but no specific fever Related Data Home Medications ?Medication ?Instructions ?Recorded ?Confirmed amitriptyline 50 mg tablet 50 mg PO QDAY 10/15/22 06/14/24 oxcarbazepine 300 mg tablet 300 mg PO BID 10/15/22 06/14/24 hydrocortisone 2.5 % topical cream applic topical 06/14/24 Previous Rx's ?Medication ?Instructions ?Recorded albuterol sulfate 90 mcg/actuation 1 inh inhalation Q6H PRN shortness 06/14/24 aerosol inhaler of breath or wheezing #8.5 grams amoxicillin 875 mg-potassium 1 tab PO BID 7 days #14 tabs 06/14/24 clavulanate 125 mg tablet methylprednisolone 4 mg tablets in 4 mg PO DAILY #21 ea 06/14/24 a dose pack (Medrol (Gino)) Allergies Allergy/AdvReac Type Severity Reaction Status Date / Time adhesive tape Allergy Rash Verified 06/14/24 08:56 bales Allergy throat Verified 06/14/24 08:56 swelling latex Allergy Rash Verified 06/14/24 08:56 morphine AdvReac Severe Vomiting Verified 06/14/24 08:56 Opioid HPI Opioid Management Most Recent Opioid Data: Last Pain Scale 8 10/30/23 22:38 10/30/23 Review of Systems ROS Status of ROS 10 or more systems reviewed and unremarkable except as noted in history and below [facility] Medical History (Updated 06/14/24 @ 09:14 by Meghan Plata DO) Clostridium difficile infection ?A49.8 - Other bacterial infections of unspecified site (ICD-10) MRSA (methicillin resistant Staphylococcus aureus) ?A49.02 - Methicillin resistant Staphylococcus aureus infection, unspecified site (ICD-10) Skin cancer ?C44.90 - Unspecified malignant neoplasm of skin, unspecified (ICD-10) Anemia ?D64.9 - Anemia, unspecified (ICD-10) Back pain ?M54.9 - Dorsalgia, unspecified (ICD-10) Arthritis ?M19.90 - Unspecified osteoarthritis, unspecified site (ICD-10) Insomnia ?G47.00 - Insomnia, unspecified (ICD-10) Panic attacks ?F41.0 - Panic disorder [episodic paroxysmal anxiety] (ICD-10) Bipolar disorder ?F31.9 - Bipolar disorder, unspecified (ICD-10) Depression ?F32.A - Depression, unspecified (ICD-10) Anxiety ?F41.9 - Anxiety disorder, unspecified (ICD-10) Pneumonia ?J18.9 - Pneumonia, unspecified organism (ICD-10) Asthma ?J45.909 - Unspecified asthma, uncomplicated (ICD-10) Migraine ?G43.909 - Migraine, unspecified, not intractable, without status migrainosus (ICD-10) Seizures ?R56.9 - Unspecified convulsions (ICD-10) Kidney stones ?N20.0 - Calculus of kidney (ICD-10) Heartburn ?R12 - Heartburn (ICD-10) Palpitations ?R00.2 - Palpitations (ICD-10) Irregular heart beat ?I49.9 - Cardiac arrhythmia, unspecified (ICD-10) Dyspareunia Dysmenorrhea ?N94.6 - Dysmenorrhea, unspecified (ICD-10) Menorrhagia ?N92.0 - Excessive and frequent menstruation with regular cycle (ICD-10) Pelvic pain ?R10.2 - Pelvic and perineal pain (ICD-10) Postoperative nausea and vomiting ?R11.2 - Nausea with vomiting, unspecified (ICD-10) ?Z98.890 - Other specified postprocedural states (ICD-10) Delayed recovery from anesthesia Surgical History (Updated 10/15/22 @ 09:30 by Traci Cadet NP) History of tonsillectomy and adenoidectomy ?Z90.89 - Acquired absence of other organs (ICD-10) History of hernia repair ?Z98.890 - Other specified postprocedural states (ICD-10) ?Z87.19 - Personal history of other diseases of the digestive system (ICD-10) History of endometrial ablation ?Z98.890 - Other specified postprocedural states (ICD-10) History of cholecystectomy (04/07/22) ?Z90.49 - Acquired absence of other specified parts of digestive tract (ICD-10) History of tubal ligation ?Z98.51 - Tubal ligation status (ICD-10) Family History (Updated 10/15/22 @ 09:30 by Traci Cadet NP) Other Family history of COPD (chronic obstructive pulmonary disease) Family history of breast cancer Family history of cervical cancer Family history of coronary artery disease Family history of diabetes mellitus Family history of emphysema Family history of heart disease Family history of lung cancer Family history of myocardial infarction Family history of prostate cancer Family history of renal failure Family history of stroke Social History Within the past year, how often did you have a drink containing alcohol: monthly or less Smoking status: Heavy tobacco smoker What tobacco products do you use: cigarettes Packs per day: 3 Years smoked: 7 Smoking pack-years: 21.00 Non-prescribed substance use: denies use Highest level of school completed/degree received: high school graduate Little interest or pleasure in doing things: not at all Feeling down, depressed, or hopeless: not at all Exam Narrative Exam Narrative: Time Seen: [] Vital Signs: [Per nurse's notes.] General: [Alert] Skin: [Warm, dry, no rash.] Head: [Normocephalic, atraumatic.] Neck: [Supple, trachea midline.] Eye: [Pupils are equal, round and reactive to light, extraocular movements are intact, normal conjunctiva.] Ears, nose, mouth and throat: oral mucosa moist. Left ear is erythematous and tender consistent with otitis media right ear normal Cardiovascular: [Regular rate and rhythm, no murmur.] Respiratory: [Lungs are clear to auscultation, respirations are non-labored, breath sounds are equal.] Chest wall: [No tenderness, no deformity.] Gastrointestinal: [Soft, nontender, non distended, normal bowel sounds.] MSK: 5 out of 5 muscle strength x 4 extremities no calf pain or edema Psychiatric: [Cooperative, appropriate mood & affect.] Neurological: [Alert and oriented to person, place, time, and situation, no focal neurological deficit observed.] Constitutional Vital Signs, click to edit/add: Last Vital Signs Temp 98.4 F 06/14/24 08:57 Pulse 82 06/14/24 08:57 Resp 20 06/14/24 08:57 BP 140/81 06/14/24 08:57 Pulse Ox 100 06/14/24 08:57 O2 Del Method Room Air 06/14/24 08:57 Course Vital Signs Vital signs: Vital Signs Temperature 98.4 F 06/14/24 08:57 Pulse Rate 82 06/14/24 08:57 Respiratory Rate 20 06/14/24 08:57 Blood Pressure 140/81 06/14/24 08:57 Pulse Oximetry 100 06/14/24 08:57 Oxygen Delivery Method Room Air 06/14/24 08:57 Temperature 98.4 F 06/14/24 08:57 Pulse Rate 82 06/14/24 08:57 Respiratory Rate 20 06/14/24 08:57 Blood Pressure 140/81 06/14/24 08:57 Pulse Oximetry 100 06/14/24 08:57 Oxygen Delivery Method Room Air 06/14/24 08:57 Medical Decision Making [facility] Narrative Medical decision making narrative: Patient has left otitis media. She most likely also has an upper respiratory infection. Her rash is erythematous and itchy and spreading. She will be placed on steroid taper for the rash and given an antibiotic for the ear. She is also been given albuterol for the chest tightness and cough. Patient is to return to ED if worsening symptoms otherwise follow-up with family doctor. She is comfortable with care plan for home. She did request a work note for today Differential Diagnosis Differential Diagnosis: URI, otitis media otitis externa rash Discharge Plan Discharge Chief Complaint: Upper Respiratory Infection Clinical Impression: Acute left otitis media Patient Disposition: Home, Self-Care Time of Disposition Decision: 09:14 Condition: Good Mode of Transportation: Private Vehicle Prescriptions / Home Meds: New albuterol sulfate 90 mcg/actuation HFA aerosol inhaler 1 inh inhalation Q6H PRN (Reason: shortness of breath or wheezing) Qty: 8.5 0RF methylprednisolone [Medrol (Gino)] 4 mg tablets,dose pack 4 mg PO DAILY Qty: 21 0RF Rx Instructions: disp one use as directed amoxicillin-pot clavulanate 875-125 mg tablet 1 tab PO BID 7 Days Qty: 14 0RF No Action oxcarbazepine 300 mg tablet 300 mg PO BID amitriptyline 50 mg tablet 50 mg PO QDAY hydrocortisone 2.5 % cream TOPICAL Print Language: Czech Instructions: Ear Infection (ED) Referrals: Jana Kramer NP [Primary Care Provider] - 1 week
== END 2024-06-14 09:24 | disposition home or self-care (01) ==
PROVIDERS: Emergency Provider Emergency Medicine; PCP Nurse Practitioner
DX: H66.92 Otitis media, unspecified, left ear (principal); R07.89 Other chest pain; R21 Rash and other nonspecific skin eruption; Z90.49 Acquired absence of other specified parts of digestive tract; Z98.51 Tubal ligation status; F17.210 Nicotine dependence, cigarettes, uncomplicated
CPT/HCPCS: 99283